=== PATIENT | female | born 1955 | race Caucasian/White ===

== ENCOUNTER 2017-05-16 12:32 | Emergency (ER) | payer MEDICARE ==
[~2017-05-16] VITALS: Ht 162.6 cm; Wt 78.0 kg
[~2017-05-16 12:32] MED LIST: C250T PO; CALCIUM 600; FERR-57 PO; FNT25TD TD; GBPN300C PO; LISI10TA PO; LOSA25TA15 PO; LOVA40TA2 PO; MECL-124 PO; METF-380 PO; MULT-608 PO; NITR-65 PO; OMEP-10 PO; ONDA-42 SL; PHEN-640 PO; PRAM0.12 PO; SCOP1PAT TD; TRAZ150T42 PO; VITAMIN D
[2017-05-16] MEDS ORDERED: DEXTROSE 50% 50 ML (IMS) SYR ONE (12:34)
[2017-05-16] MEDS ORDERED: DEXTROSE 50% 50 ML (IMS) SYR IV ONE (12:45)
[2017-05-16] MEDS ORDERED: NS IV 1000 ML 1,000 ML IV SCH (12:45)
--- NOTE | 2017-05-16 12:48 | ED General ---
General Chief Complaint: Altered Mental Status Stated Complaint: POSS STROKE Source of Information: Patient, Family Exam Limitations: No Limitations History of Present Illness Date Seen by Provider: May 16, 2017 Time Seen by Provider: 12:45 Initial Comments To ER coming by her with reports of weakness and confusion. Patient presented to the clinic in [place] for this where she had slurred speech noticed. The provider gave 81 mg of aspirin and told her she should come to the emergency room because this could be a stroke. Upon arrival to the emergency room she is very weak and was assisted out of her chair into bed. She was able to bear weight and move all extremities speech was slurred and very slow to respond. Blood sugar was checked and found to be 35. Her is present and states that she's been "mentally slow" for the past several days and has been falling more than usual for the past week or so. She was started on Zoloft about 3 weeks ago as best they can recall and had a dosage increase on Saturday of this week. She does take glimepiride and Levemir for diabetes. Has not checked her sugar since yesterday morning. Timing/Duration: 3-4 Days Severity: Moderate Allergies and Home Medications Allergies Coded Allergies: No Known Drug Allergies (Unverified , 11/05/09) Home Medications Ferrous Sulfate 325 Mg Tablet, 325 MG PO BID, (Reported) Gabapentin 300 Mg Cap, 300 MG PO TID, (Reported) Losartan Potassium 25 Mg Tablet, 1 EACH PO DAILY, (Reported) Lovastatin 40 Mg Tablet, 1 EACH PO DAILY WITH SUPPER, (Reported) Meclizine Hcl 25 Mg Tab, 1-2 TAB PO Q 4-6 HOURS PRN for DIZZINESS Prescribed by: ANURADHA BUTLER on 07/11/131443 Metformin Hcl 1,000 Mg Tablet, 1 EACH PO BID WITH MEALS, (Reported) Nitrofurantoin Monohyd/M-Cryst 100 Mg Capsule, 100 MG PO BID Prescribed by: ANURADHA BUTLER on 10/30/151931 Nitrofurantoin/Nitrofuran Mac 100 Mg Capsule, 1 EACH PO BID FOR INFECTION Prescribed by: ANURADHA BUTLER on 07/11/13 144 Ondansetron Hcl 4 Mg Tab, 4 MG SL Q4H FOR NAUSEA AND VOMITING Prescribed by: ANURADHA BUTLER on 07/11/13 144 Phenazopyridine HCl 200 Mg Tablet, 1 TAB PO TID Prescribed by: ANURADHA BUTLER on 10/30/15 1932 Scopolamine Hcl 1 Patch .72 H Patch.td72, 1 EA TD Q3D Prescribed by: ANURADHA BUTLER on 07/11/13 1444 Trazodone Hcl 150 Mg Tablet, 100 MG PO HS, (Reported) Patient Home Medication List Home Medication List Reviewed: Yes Constitutional: see HPI, weakness EENTM: see HPI Respiratory: no symptoms reported Cardiovascular: no symptoms reported Genitourinary: no symptoms reported Musculoskeletal: no symptoms reported Skin: no symptoms reported Psychiatric/Neurological: No Symptoms Reported Past Zwczeng-Uxgass-Xbgdso Hx Patient Social History Recent Hopitalizations: No Surgeries Surgeries: Abdominal, Orthopedic Cardiovascular Cardiac Disorders: High Cholesterol, Hypertension Neurological Neurological Disorders: Neuropathy Reproductive System Hx Reproductive Disorders: 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 Genitourinary Genitourinary Disorders: Bladder Infection, Renal Failure Musculoskeletal Musculoskeletal Disorders: Chronic Back Pain Endocrine Endocrine Disorders: Diabetes, Non-Insulin dep Psychosocial Behavioral Health Disorders: Sleep Difficulties Physical Exam Vital Signs Vital Signs - First Documented 05/16/17 12:32 Temp 97.5 Pulse 91 Resp 16 B/P (MAP) 189/96 (127) Pulse Ox 97 O2 Delivery Room Air Capillary Refill : General Appearance: No Apparent Distress, WD/WN, Chronically ill Eyes: Bilateral Eye Normal Inspection, Bilateral Eye PERRL, Bilateral Eye EOMI HEENT: PERRL/EOMI, TMs Normal Neck: Full Range of Motion, Normal Inspection Respiratory: No Accessory Muscle Use, No Respiratory Distress Cardiovascular: Regular Rate, Rhythm, Normal Peripheral Pulses Gastrointestinal: Non Tender, Soft Extremity: Normal Capillary Refill, Normal Inspection, No Calf Tenderness Neurologic/Psychiatric: Alert, Oriented x3, No Motor/Sensory Deficits Skin: Normal Color, Warm/Dry Progress/Results/Core Measures Suspected Sepsis SIRS Temperature: Pulse: Respiratory Rate: Laboratory Tests 05/16/17 12:37: White Blood Count 9.8 Blood Pressure / Mean: Laboratory Tests 05/16/17 12:37: Creatinine 0.81, Platelet Count 284, Total Bilirubin 0.3 Results/Orders Lab Results Laboratory Tests Test 05/16/17 12:36 05/16/17 12:37 05/16/17 13:41 05/16/17 14:08 Range/Units Glucometer 35 *L 95 70-110 MG/DL White Blood Count 9.8 4.3-11.0 10^3/uL Red Blood Count 4.54 4.35-5.85 10^6/uL Hemoglobin 12.8 11.5-16.0 G/DL Hematocrit 39 35-52 % Mean Corpuscular Volume 86 80-99 FL Mean Corpuscular Hemoglobin 28 25-34 PG Mean Corpuscular Hemoglobin Concent 33 32-36 G/DL Red Cell Distribution Width 14.8 H 10.0-14.5 % Platelet Count 284 130-400 10^3/uL Mean Platelet Volume 9.6 7.4-10.4 FL Neutrophils (%) (Auto) 73 42-75 % Lymphocytes (%) (Auto) 20 12-44 % Monocytes (%) (Auto) 6 0-12 % Eosinophils (%) (Auto) 2 0-10 % Basophils (%) (Auto) 0 0-10 % Neutrophils # (Auto) 7.2 1.8-7.8 X 10^3 Lymphocytes # (Auto) 1.9 1.0-4.0 X 10^3 Monocytes # (Auto) 0.6 0.0-1.0 X 10^3 Eosinophils # (Auto) 0.2 0.0-0.3 10^3/uL Basophils # (Auto) 0.0 0.0-0.1 10^3/uL Sodium Level 139 135-145 MMOL/L Potassium Level 4.0 3.6-5.0 MMOL/L Chloride Level 103 98-107 MMOL/L Carbon Dioxide Level 29 21-32 MMOL/L Anion Gap 7 5-14 MMOL/L Blood Urea Nitrogen 14 7-18 MG/DL Creatinine 0.81 0.60-1.30 MG/DL Estimat Glomerular Filtration Rate > 60 BUN/Creatinine Ratio 17 Glucose Level 29 *L 70-105 MG/DL Calcium Level 10.1 8.5-10.1 MG/DL Magnesium Level 1.6 L 1.8-2.4 MG/DL Total Bilirubin 0.3 0.1-1.0 MG/DL Aspartate Amino Transf (AST/SGOT) 55 H 5-34 U/L Alanine Aminotransferase (ALT/SGPT) 52 0-55 U/L Alkaline Phosphatase 57 40-136 U/L Total Protein 7.3 6.4-8.2 GM/DL Albumin 4.3 3.2-4.5 GM/DL Urine Color YELLOW Urine Clarity SLIGHTLY CLOUDY Urine pH 5 5-9 Urine Specific Roe 1.020 1.016-1.022 Urine Protein 1+ H NEGATIVE Urine Glucose (UA) 1+ H NEGATIVE Urine Ketones NEGATIVE NEGATIVE Urine Nitrite POSITIVE H NEGATIVE Urine Bilirubin NEGATIVE NEGATIVE Urine Urobilinogen NORMAL NORMAL MG/DL Urine Leukocyte Esterase 3+ H NEGATIVE Urine RBC (Auto) 3+ H NEGATIVE Urine RBC NONE /HPF Urine WBC >100 H /HPF Urine Squamous Epithelial Cells 5-10 /HPF Urine Crystals NONE /LPF Urine Bacteria FEW H /HPF Urine Casts NONE /LPF Urine Mucus NEGATIVE /LPF Urine Culture Indicated YES Urine Opiates Screen NEGATIVE NEGATIVE Urine Oxycodone Screen NEGATIVE NEGATIVE Urine Methadone Screen NEGATIVE NEGATIVE Urine Propoxyphene Screen NEGATIVE NEGATIVE Urine Barbiturates Screen NEGATIVE NEGATIVE Ur Tricyclic Antidepressants Screen POSITIVE H NEGATIVE Urine Phencyclidine Screen NEGATIVE NEGATIVE Urine Amphetamines Screen NEGATIVE NEGATIVE Urine Methamphetamines Screen NEGATIVE NEGATIVE Urine Benzodiazepines Screen NEGATIVE NEGATIVE Urine Cocaine Screen NEGATIVE NEGATIVE Urine Cannabinoids Screen NEGATIVE NEGATIVE My Orders Orders - RICK SAMPSON APRN Cbc With Automated Diff (05/16/17 12:43) Comprehensive Metabolic Panel (05/16/17 12:43) Ekg Tracing (05/16/17 12:43) Ua Culture If Indicated (05/16/17 12:43) Drug Screen Stat (Urine) (05/16/17 12:43) Chest 1 View, Ap/Pa Only (05/16/17 12:43) Magnesium (05/16/17 12:43) Ct Head Wo (05/16/17 12:43) Saline Lock/Iv-Start (05/16/17 12:43) Accucheck Stat ONCE (05/16/17 12:43) Ns Iv 1000 Ml (Sodium Chloride 0.9%) (05/16/17 12:45) D50w (Emergency) Syringe (Dextrose 50% 5 (05/16/17 12:45) General/Regular (05/16/17 Lunch) Accucheck Stat ONCE (05/16/17 13:39) Clonidine Tablet (Catapres Tablet) (05/16/17 14:15) Urine Culture (05/16/17 14:08) Sulfamethoxazole/Trimet Ds Tab (Bactrim (05/16/17 15:00) Medications Given in ED Current Medications Medications Dose Ordered Sig/Edwar Route Start Time Stop Time Status Last Admin Dose Admin Clonidine HCl 0.1 mg ONCE ONCE PO 05/16/17 14:15 05/16/17 14:16 DC 05/16/17 14:20 0.1 MG Dextrose 50 ml ONCE ONCE IV 05/16/17 12:45 05/16/17 12:46 DC 05/16/17 12:39 50 ML Vital Signs/I&O Vital Sign - Last 12Hours 05/16/17 12:32 Temp 97.5 Pulse 91 Resp 16 B/P (MAP) 189/96 (127) Pulse Ox 97 O2 Delivery Room Air Capillary Refill : Departure Communication (Admissions) Progress Notes 1257-patient is now sitting upright in bed, much more alert and oriented, talking appropriately without slurred speech Impression Impression: Primary Impression: Hypoglycemia associated with diabetes Additional Impression: Urinary tract infection Disposition: 01 HOME, SELF-CARE Condition: Stable Departure-Patient Inst. Decision time for Depature: 14:52 Referrals: [facility] (PCP/Family) Primary Care Physician Patient Instructions: HYPOGLYCEMIA, Urinary Tract Infection, Adult (DC) Add. Discharge Instructions: 1. Check your sugars frequently 2. You should add food or diet other than a just CabbageAll discharge instructions reviewed with patient and/or family. Voiced understanding. Scripts Sulfamethoxazole/Trimethoprim (Bactrim Ds Tablet) 1 Each Tablet 1 EACH PO BID, #14 TAB Prov: RICK SAMPSON APRN 05/16/17 RICK SAMPSON APRN May 16, 2017 12:48
[2017-05-16 12:49] LABS: BASOPHILS % (AUTO) 0 % (0-10); EOSINOPHILS # (AUTO) 0.2 10^3/uL (0.0-0.3); EOSINOPHILS % (AUTO) 2 % (0-10); HEMATOCRIT 39 % (35-52); HEMOGLOBIN 12.8 G/DL (11.5-16.0); LYMPHOCYTES # (AUTO) 1.9 X 10^3 (1.0-4.0); LYMPHOCYTES % (AUTO) 20 % (12-44); MEAN CORPUSCULAR HEMOGLOBIN 28 PG (25-34); MEAN CORPUSCULAR HGB CONC 33 G/DL (32-36); MEAN CORPUSCULAR VOLUME 86 FL (80-99); MEAN PLATELET VOLUME 9.6 FL (7.4-10.4); MONOCYTES # (AUTO) 0.6 X 10^3 (0.0-1.0); MONOCYTES % (AUTO) 6 % (0-12); NEUTROPHILS # (AUTO) 7.2 X 10^3 (1.8-7.8); NEUTROPHILS % (AUTO) 73 % (42-75); PLATELET COUNT 284 10^3/uL (130-400); RED BLOOD COUNT 4.54 10^6/uL (4.35-5.85); RED CELL DISTRIBUTION WIDTH 14.8 % (10.0-14.5); WHITE BLOOD COUNT 9.8 10^3/uL (4.3-11.0)
[2017-05-16 13:05] LABS: ALANINE AMINOTRANSFERASE 52 U/L (0-55); ALBUMIN 4.3 GM/DL (3.2-4.5); ALKALINE PHOSPHATASE 57 U/L (40-136); BILIRUBIN,TOTAL 0.3 MG/DL (0.1-1.0); BUN/CREATININE RATIO 17; CALCIUM 10.1 MG/DL (8.5-10.1); CARBON DIOXIDE 29 MMOL/L (21-32); CHLORIDE 103 MMOL/L (98-107); CREATININE SERUM 0.81 MG/DL (0.60-1.30); GFR ESTIMATED > 60; MAGNESIUM 1.6 MG/DL (1.8-2.4); SODIUM 139 MMOL/L (135-145); TOTAL PROTEIN 7.3 GM/DL (6.4-8.2)
[2017-05-16 13:11] LABS: GLUCOSE 29 MG/DL (70-105)
--- NOTE | 2017-05-16 13:32 | Diagnostic Imaging Report ---
CLINICAL INDICATION: Patient with possible stroke. EXAM: Portable chest x-ray upright view. COMPARISONS: Chest x-ray dated 07/11/2013. FINDINGS: Lungs/pleura: There is slight low lung volumes seen. Lungs are clear. There is no pneumothorax. There is no pleural effusion. Mediastinum: Unremarkable. Pulmonary vasculature: Unremarkable. Heart: Unremarkable. Bones/extrathoracic soft tissue: Again seen multiple surgical clips overlying the left upper abdomen. Suspected cholecystectomy clips overlying right upper quadrant. IMPRESSION: There is no radiographic evidence of acute cardiopulmonary process. Dictated by: Dictated on workstation # [id number]
--- NOTE | 2017-05-16 13:37 | Diagnostic Imaging Report ---
CLINICAL INDICATION: Patient with possible stroke. Patient states she fell two days ago and again yesterday. EXAM: Axial CT scan of the brain performed without IV contrast. COMPARISON: Head CT without IV contrast dated 07/11/2013. MRI of the brain performed without IV contrast dated 05/14/2014. FINDINGS: There is no evidence of acute cerebral infarct, intracranial hemorrhage, or gross mass effect. The brain parenchymal volume appears appropriate for patient's age. There is normal licea-white matter distinction. There is no significant midline shift or herniation. There is no evidence of hydrocephalus. The basal cisterns are unremarkable. The skull, extracranial soft tissue, and orbits are unremarkable. The paranasal sinuses are unremarkable. Temporal bones show no significant abnormality. IMPRESSION: Unremarkable CT scan of the brain for age. Dictated by: Dictated on workstation # [id number]
[2017-05-16] MEDS ORDERED: cloNIDine 0.1 MG (CATAPRES) TAB PO ONE (14:15)
[2017-05-16 14:17] LABS: BILIRUBIN,URINE NEGATIVE (NEGATIVE); CLARITY,URINE SLIGHTLY CLOUDY; COLOR,URINE YELLOW; GLUCOSE, URINE (UA) 1+ (NEGATIVE); KETONES,URINE NEGATIVE (NEGATIVE); LEUKOCYTE ESTERASE ,URINE 3+ (NEGATIVE); NITRITE,URINE POSITIVE (NEGATIVE); PH,URINE 5 (5-9); PROTEIN,URINE 1+ (NEGATIVE); UROBILINOGEN,URINE NORMAL (NORMAL)
[2017-05-16 14:27] LABS: BACTERIA,URINE FEW /HPF; WBC,URINE >100 /HPF
[2017-05-16 14:29] LABS: AMPHETAMINE SCREEN, URINE NEGATIVE (NEGATIVE); BARBITURATE SCREEN URINE NEGATIVE (NEGATIVE); BENZODIAZEPINES SCREEN URINE NEGATIVE (NEGATIVE); CANNABINOID SCREEN, URINE NEGATIVE (NEGATIVE); COCAINE SCREEN URINE NEGATIVE (NEGATIVE); METHADONE STAT NEGATIVE (NEGATIVE); METHAMPHETAMINE SCREEN URINE S NEGATIVE (NEGATIVE); OPIATE SCREEN URINE NEGATIVE (NEGATIVE); OXYCODONE STAT NEGATIVE (NEGATIVE); PROPOXYPHENE STAT NEGATIVE (NEGATIVE); TRICYCLIC ANTIDEPRESSANTS SCRE POSITIVE (NEGATIVE)
[2017-05-16] MEDS ORDERED: SULF1TAB35 PO (14:54)
[2017-05-16] MEDS ORDERED: TRIM/SULFAMETH 160/800 (SEPTRA DS) TAB PO ONE (15:00)
[2017-05-16 15:05] VITALS: BP 169/93
== END 2017-05-16 15:05 | disposition home or self-care (01) ==
LOC: EDUNIT# 12:32 → ER 12:33
DX: E11.649 Type 2 diabetes mellitus with hypoglycemia without coma (principal); E11.40 Type 2 diabetes mellitus with diabetic neuropathy, unspecified; N39.0 Urinary tract infection, site not specified; G47.9 Sleep disorder, unspecified; E78.00 Pure hypercholesterolemia, unspecified; I10 Essential (primary) hypertension; Z79.84 Long term (current) use of oral hypoglycemic drugs
CPT/HCPCS: 36415; 70450; 71045; 80053; 80306; 81000; 82962; 83735; 85025; 87088; 87186; 93005; 96361; 96374

== ENCOUNTER 2017-06-03 09:05 | Emergency (ER) | payer MEDICARE ==
[~2017-06-03] VITALS: Ht 165.1 cm; Wt 77.1 kg
[~2017-06-03 09:05] MED LIST changes: +SULF1TAB35 PO
--- OUTSIDE RECORDS SUMMARY | 2017-06-03 09:12 | XMS REPORT ---
Author Author GEORGIA GALVAN [facility] eClinicalWorks Address Unknown Phone Unavailable Care Team Providers Care Shift Mechanic Name Role Phone GEORGIA GALVAN Unavailable Allergies No Known Allergies Problems Problem Type Condition Code Onset Dates Condition Status Problem Diabetes mellitus without mention of complication, type II or unspecified type, uncontrolled 250.02 Active Problem Elevated blood pressure reading without diagnosis of hypertension 796.2 Active Problem Polyneuropathy in diabetes 357.2 Active Problem Other chronic pain 338.29 Active Medications No Known Medications Results No Known Results Summary Purpose eClinicalWorks Submission
--- OUTSIDE RECORDS SUMMARY | 2017-06-03 09:12 | XMS REPORT ---
Author Author GEORGIA GALVAN [facility] eClinical[employer] Address Unknown Phone Unavailable Care Team Providers Care Informatics Manager Name Role Phone GEORGIA GALVAN Unavailable Allergies No Known Allergies Problems Problem Type Condition Code Onset Dates Condition Status Problem Polyneuropathy in diabetes 357.2 Active Problem Diabetes mellitus without mention of complication, type II or unspecified type, uncontrolled 250.02 Active Problem Diabetes type 1, uncontrolled E10.65 Active Problem Elevated blood pressure reading without diagnosis of hypertension 796.2 Active Problem Other chronic pain 338.29 Active Medications Medication Code System Code Instructions Start Date End Date Status Dosage Hydrocodone-Acetaminophen [facility] [address]-77 7.5-325 MG Orally every 4-6 hrs PRN 1 tablet Results No Known Results Summary Purpose eClinicalWorks Submission
--- OUTSIDE RECORDS SUMMARY | 2017-06-03 09:12 | XMS REPORT ---
Author Author CATRACHITA MOLINA [facility] Address [address] [place] [address] Care Team Providers Care Towel Inspector Name Role Phone CATRACHITA MOLINA Unavailable PROBLEMS Type Condition ICD9-CM Code [id number] Code Onset Dates Condition Status SNOMED Code Problem Elevated blood pressure reading without diagnosis of hypertension 796.2 Active 920331210 Problem Polyneuropathy in diabetes 357.2 Active 91271081 Problem Diabetes mellitus without mention of complication, type II or unspecified type, uncontrolled 250.02 Active 728456557 Problem Other chronic pain 338.29 Active 50885876 Problem Encounter for immunization Z23 Active 884861501 Problem Other chronic pain G89.29 Active 64986138 Problem RLS (restless legs syndrome) G25.81 Active 86553725 Problem Diabetes type 2, controlled E11.9 Active 95798182 Problem Essential hypertension I10 Active 79737458 Problem Diabetic polyneuropathy associated with type 2 diabetes mellitus E11.42 Active 48611411 ALLERGIES Unknown Allergies SOCIAL HISTORY No smoking Hx information available PLAN OF CARE VITAL SIGNS MEDICATIONS Medication Instructions Dosage Frequency Start Date End Date Duration Status Lovastatin 20 MG Orally Once a day 1 tablet 24h Mar, Active RESULTS No Results PROCEDURES No Known procedures IMMUNIZATIONS No Known Immunizations
--- OUTSIDE RECORDS SUMMARY | 2017-06-03 09:12 | XMS REPORT ---
Author Author GEORGIA GALVAN [facility] eClinicalWorks Address Unknown Phone Unavailable Care Team Providers Care Poultry Dresser Name Role Phone GEORGIA GALVAN Unavailable Allergies [...] Instructions Start Date End Date Status Dosage Victoza [facility] [address]-29 18 MG/3ML Subcutaneous Once a day 1.8 mg Pen [place] [facility] [address]-90 31G X 6 MM Once a day Dec 23, 2014 as directed Results No Known Results Summary Purpose eClinicalWorks Submission
--- OUTSIDE RECORDS SUMMARY | 2017-06-03 09:12 | XMS REPORT ---
Author Author CATRACHITA MOLINA Organization eClinicalWorks Address Unknown Phone Unavailable Care Team Providers Care Food Server Name Role Phone CATRACHITA MOLINA CP Unavailable Allergies No Known Allergies Problems Problem Type Condition Code Onset Dates Condition Status Problem Polyneuropathy in diabetes 357.2 Active Problem Diabetes mellitus without mention of complication, type II or unspecified type, uncontrolled 250.02 Active Problem Diabetes type 2, controlled E11.9 Active Problem Elevated blood pressure reading without diagnosis of hypertension 796.2 Active Problem Other chronic pain 338.29 Active Medications Medication Code System Code Instructions Start Date End Date Status Dosage Hydrocodone-Acetaminophen [facility] [address]-32 7.5-325 MG Orally every 4-6 hrs PRN 1 tablet Results No Known Results Summary Purpose eClinicalWorks Submission
--- OUTSIDE RECORDS SUMMARY | 2017-06-03 09:12 | XMS REPORT ---
Author Author GEORGIA GALVAN [facility] eClinicalWorks Address Unknown Phone Unavailable Care Team Providers Care Boiler Riveter Name Role Phone GEORGIA GALVAN Unavailable Allergies [...] Start Date End Date Status Dosage Hydrocodone-Acetaminophen [facility] [address]-13 7.5-325 MG Orally every 4-6 hrs PRN 1 tablet Results No Known Results Summary Purpose eClinicalWorks Submission
--- OUTSIDE RECORDS SUMMARY | 2017-06-03 09:12 | XMS REPORT ---
Author Author CATRACHITA MOLINA [facility] Address [address] [place] [address] Care Team Providers Care Card Player Name Role Phone CATRACHITA MOLINA Unavailable PROBLEMS Type Condition ICD9-CM Code [id number] Code Onset Dates Condition Status SNOMED Code Problem Diabetes mellitus without mention of complication, type II or unspecified type, uncontrolled 250.02 Active 078088237 Problem Diabetic polyneuropathy associated with type 2 diabetes mellitus E11.42 Active 91081452 Problem Diabetes type 2, controlled E11.9 Active 23042049 Problem Elevated blood pressure reading without diagnosis of hypertension 796.2 Active 805933549 Problem Polyneuropathy in diabetes 357.2 Active 14935613 Problem Other chronic pain 338.29 Active 16989793 Problem Type 2 diabetes mellitus with hyperglycemia E11.65 Active 193534688196172 Problem Spinal stenosis, unspecified spinal region M48.00 Active 32854875 Problem Essential hypertension I10 Active 77951270 Problem RLS (restless legs syndrome) G25.81 Active 57713761 Problem Encounter for immunization Z23 Active 875029590 Problem Other chronic pain G89.29 Active 56658556 ALLERGIES No Information SOCIAL HISTORY Never Assessed PLAN OF CARE VITAL SIGNS MEDICATIONS Medication Instructions Dosage Frequency Start Date End Date Duration Status Hydrocodone-Acetaminophen 7.5-325 MG Orally every 4-6 hrs PRN 1 tablet Active RESULTS No Results PROCEDURES No Known procedures IMMUNIZATIONS No Known Immunizations MEDICAL (GENERAL) HISTORY Type Description Date Medical History hypertension Medical History hyperlipidemia Medical History gastrointestinal disorder-chronic gastritis on EGD 2009, Colonoscopy mild diverticulitis 2009 Medical History spinal stenosis-3 bulging disk in lower back Medical History hematologic disorder-severe iron deficiency anemia due to hx of gastric bypass Medical History type II diabetes Surgical History cholecystectomy Surgical History tonsillectomy Surgical History appendectomy Surgical History surgery for AAA 23 lb cyst removed from ovary Surgical History gastric surgery for morbid obesity by vertical-banded gastroplasty Surgical History complete hysterectomy and resecection of cystadenoma from the right ovary Surgical History back surgery 12/2012 L4-L5 decompression surgery, metal cage placed post bone graft L4-L5 fusion with new bone graft placement 01/2014 Hospitalization History surgeries, childbirth
--- OUTSIDE RECORDS SUMMARY | 2017-06-03 09:12 | XMS REPORT ---
Author Author CATRACHITA MOLINA [facility] Address [address] [place] [address] Care Team Providers Care Electronics Instructor Name Role Phone CATRACHITA MOLINA Unavailable PROBLEMS Type Condition ICD9-CM Code [id number] Code Onset Dates Condition Status SNOMED Code Problem Elevated blood pressure reading without diagnosis of hypertension 796.2 Active 354227163 Problem Polyneuropathy in diabetes 357.2 Active 85186987 Problem Diabetes mellitus without mention of complication, type II or unspecified type, uncontrolled 250.02 Active 628207649 Problem Other chronic pain 338.29 Active 50550887 Problem Encounter for immunization Z23 Active 708572719 Problem Other chronic pain G89.29 Active 18819848 Problem RLS (restless legs syndrome) G25.81 Active 31210124 Problem Diabetes type 2, controlled E11.9 Active 60743825 Problem Essential hypertension I10 Active 54821424 Problem Diabetic polyneuropathy associated with type 2 diabetes mellitus E11.42 Active 83313963 ALLERGIES Unknown Allergies SOCIAL HISTORY No smoking Hx information available PLAN OF CARE VITAL SIGNS MEDICATIONS Medication Instructions Dosage Frequency Start Date End Date Duration Status Levemir 100 UNIT/ML Subcutaneous 2 times a day 60 units 12h 20 Jun, 2015 Active Victoza 18 MG/3ML Subcutaneous Once a day 1.8 mg 24h Active Pen [place] 31G X 6 MM as directed 24h Dec, Active RESULTS No Results PROCEDURES No Known procedures IMMUNIZATIONS No Known Immunizations
--- OUTSIDE RECORDS SUMMARY | 2017-06-03 09:12 | XMS REPORT ---
Author Author CATRACHITA MOLINA [facility] Address [address] [place] [address] Care Team Providers Care Charge Account Clerk Name Role Phone CATRACHITA MOLINA Unavailable PROBLEMS Type Condition ICD9-CM Code [id number] Code Onset Dates Condition Status SNOMED Code Problem Diabetes mellitus without mention of complication, type II or unspecified type, uncontrolled 250.02 Active 549853660 Problem Diabetic polyneuropathy associated with type 2 diabetes mellitus E11.42 Active 51660416 Problem Diabetes type 2, controlled E11.9 Active 69938740 Problem Elevated blood pressure reading without diagnosis of hypertension 796.2 Active 066275334 Problem Polyneuropathy in diabetes 357.2 Active 54870741 Problem Other chronic pain 338.29 Active 14643310 Problem Type 2 diabetes mellitus with hyperglycemia E11.65 Active 527433455739089 Problem Spinal stenosis, unspecified spinal region M48.00 Active 71635188 Problem Essential hypertension I10 Active 64787977 Problem RLS (restless legs syndrome) G25.81 Active 23786829 Problem Encounter for immunization Z23 Active 916905693 Problem Other chronic pain G89.29 Active 35703487 ALLERGIES Unknown Allergies SOCIAL HISTORY No smoking Hx information available PLAN OF CARE VITAL SIGNS MEDICATIONS Unknown Medications RESULTS No Results PROCEDURES No Known procedures IMMUNIZATIONS No Known Immunizations
--- OUTSIDE RECORDS SUMMARY | 2017-06-03 09:12 | XMS REPORT ---
Author Author GEORGIA GALVAN [facility] eClinicalWorks Address Unknown Phone Unavailable Care Team Providers Care Baggage Security Checker Name Role Phone GEORGIA GALVAN Unavailable Allergies [...] Instructions Start Date End Date Status Dosage Levemir [facility] [address]-29 100 UNIT/ML Subcutaneous 2 times a day June 22, 2015 60 units Results No Known Results Summary Purpose eClinicalWorks Submission
--- OUTSIDE RECORDS SUMMARY | 2017-06-03 09:12 | XMS REPORT ---
Author Author GEORGIA GALVAN [facility] eClinicalWorks Address Unknown Phone Unavailable Care Team Providers Care Public Health Inspector Name Role Phone GEORGIA GALVAN Unavailable Allergies [...] Instructions Start Date End Date Status Dosage Pen [place] [facility] [address]-52 31G X 6 MM 2 times a day Dec 23, 2014 as directed Levemir Flexpen [facility] [address]-68 100 unit/mL (3 mL) Subcutaneous 2 times a day Mar 15, 2014 20 Units in AM and 24 units at HS Results No Known Results Summary Purpose eClinicalWorks Submission
--- OUTSIDE RECORDS SUMMARY | 2017-06-03 09:12 | XMS REPORT ---
Author Author CATRACHITA MOLINA [facility] Address [address] [place] [address] Care Team Providers Care Educational Sign Language Interpreter Name Role Phone CATRACHITA MOLINA Unavailable PROBLEMS Type Condition ICD9-CM Code [id number] Code Onset Dates Condition Status SNOMED Code Problem Elevated blood pressure reading without diagnosis of hypertension 796.2 Active 333860379 Problem Polyneuropathy in diabetes 357.2 Active 69117498 Problem Diabetes mellitus without mention of complication, type II or unspecified type, uncontrolled 250.02 Active 769819078 Problem Other chronic pain 338.29 Active 95628576 Problem Encounter for immunization Z23 Active 724840058 Problem Other chronic pain G89.29 Active 75967214 Problem RLS (restless legs syndrome) G25.81 Active 67246549 Problem Diabetes type 2, controlled E11.9 Active 76867682 Problem Essential hypertension I10 Active 89189161 Problem Diabetic polyneuropathy associated with type 2 diabetes mellitus E11.42 Active 58088097 ALLERGIES Unknown Allergies SOCIAL HISTORY No smoking Hx information available PLAN OF CARE VITAL SIGNS MEDICATIONS Medication Instructions Dosage Frequency Start Date End Date Duration Status Hydrocodone-Acetaminophen 7.5-325 MG Orally every 4-6 hrs PRN 1 tablet Active RESULTS No Results PROCEDURES No Known procedures IMMUNIZATIONS No Known Immunizations
--- OUTSIDE RECORDS SUMMARY | 2017-06-03 09:12 | XMS REPORT ---
Author Author CATRACHITA MOLINA [facility] Address [address] [place] [address] Care Team Providers Care Hand Sewer Shoes Name Role Phone CATRACHITA MOLINA Unavailable PROBLEMS Type Condition ICD9-CM Code [id number] Code Onset Dates Condition Status SNOMED Code Problem Polyneuropathy in diabetes 357.2 Active 12604283 Problem RLS (restless legs syndrome) G25.81 Active 67303391 Problem Diabetes type 2, controlled E11.9 Active 95027273 Problem Other chronic pain 338.29 Active 30841855 Problem Elevated blood pressure reading without diagnosis of hypertension 796.2 Active 709857931 Problem Diabetes mellitus without mention of complication, type II or unspecified type, uncontrolled 250.02 Active 687550951 Problem Type 2 diabetes mellitus with hyperglycemia E11.65 Active 468132196038147 Problem Spinal stenosis, unspecified spinal region M48.00 Active 42820569 Problem Essential hypertension I10 Active 44951166 Problem 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 Unknown Non Drug Allergy Dec, Unknown SOCIAL HISTORY No smoking Hx information available PLAN OF CARE VITAL SIGNS Height 64 in 2015-12-19 Weight 189.8 lbs 2015-12-19 Temperature 96.9 degrees Fahrenheit 2015-12-19 Heart Rate 80 bpm 2015-12-19 Respiratory Rate 18 2015-12-19 BMI 32.58 kg/m2 2015-12-19 Blood pressure systolic 138 mmHg 2015-12-19 Blood pressure diastolic 72 mmHg 2015-12-19 MEDICATIONS Medication Instructions Dosage Frequency Start Date End Date Duration Status Metformin HCl 1000 MG Orally Twice a day 1 tablet with meals 12h 31 Oct, 2014 Active Hydrocodone-Acetaminophen 7.5-325 MG Orally every 4-6 hrs PRN 1 tablet Active Lovastatin 20 MG Orally Once a day 1 tablet 24h 12 Mar, 2014 Active Hydrochlorothiazide 25 MG Orally Once a day 1 tablet 24h Mar, Active Glimepiride 2 MG Orally twice a day 1 tablet 12h Aug, Active Poly-Iron 150 Forte 150-25-1 MG-MCG-MG Orally 2 times a day 1 capsule 12h Active Mirapex 0.5 MG take 1 tablet by Oral route 1 time per day 2-3 hours before bedtime Active Victoza 18 MG/3ML Subcutaneous Once a day 1.8 mg 24h Active NovoFine 32G X 6 MM subcutaneous 2 times a day DX 250.00 1 needle Nov Active Aspirin Adult Low Strength 81 MG Orally Once a day 1 tablet 24h Active Amitriptyline HCl 100 MG Orally Once a day 1 tablet 24h Oct, Active Cozaar 25 MG Orally Once a day 1 tablet 24h Mar, Active Pen [place] 31G X 6 MM as directed 12h Dec, Active Neurontin 300 MG Orally Three times a day 1 capsule 8h Active Levemir 100 UNIT/ML Subcutaneous 2 times a day 60 units 12h Jun, Active Pramipexole Dihydrochloride 0.5 MG TAKE (2) TABLETS BY MOUTH ONCE DAILY 2- 3 HOURS BEFORE BEDTIME. Active Calcium 600 MG Orally Once a day 1 tablet with meals 24h Active RESULTS No Results PROCEDURES Procedure Date Ordered Related Diagnosis Body Site [facility] VISIT ESTABLISHED PATIENT Dec 19, 2015 Office Visit, Est Pt., Level 3 Dec 19, 2015 SINGLE IMMUNIZATION ADMIN Dec 19, 2015 FLUARIX QUAD P-FREE 3 AND UP .50 2015Dec 19, 2015 IMMUNIZATIONS Vaccine Route Administration Date Status FLUARIX QUAD P-FREE 3 AND UP .50 2015 Unknown Dec 19, 2015 Administered
--- OUTSIDE RECORDS SUMMARY | 2017-06-03 09:13 | XMS REPORT ---
Author Author GEORGIA GALVAN [facility] eClinicalWorks Address Unknown Phone Unavailable Care Team Providers Care Rn Telehealth Name Role Phone GEORGIA GALVAN Unavailable Allergies [...] Date End Date Status Dosage Hydrocodone-Acetaminophen [facility] [address]-11 7.5-325 MG Orally every 4-6 hrs PRN 1 tablet Results No Known Results Summary Purpose eClinicalWorks Submission
--- OUTSIDE RECORDS SUMMARY | 2017-06-03 09:13 | XMS REPORT ---
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
--- OUTSIDE RECORDS SUMMARY | 2017-06-03 09:13 | XMS REPORT ---
Author Author CATRACHITA MOLINA [facility] Address [address] [place] [address] Care Team Providers Care System Support Developer Name Role Phone CATRACHITA MOLINA Unavailable PROBLEMS Type Condition ICD9-CM Code [id number] Code Onset Dates Condition Status SNOMED Code Problem Other chronic pain 338.29 Active 55606729 Problem Diabetes mellitus without mention of complication, type II or unspecified type, uncontrolled 250.02 Active 133538135 Problem Elevated blood pressure reading without diagnosis of hypertension 796.2 Active 578154372 Problem Other chronic pain G89.29 Active 82768285 Problem Essential hypertension I10 Active 51666876 Problem Diabetes type 2, controlled E11.9 Active 54967867 Problem Polyneuropathy in diabetes 357.2 Active 58390711 Problem Diabetic polyneuropathy associated with type 2 diabetes mellitus E11.42 Active 09607671 Problem RLS (restless legs syndrome) G25.81 Active 91487593 ALLERGIES Unknown Allergies SOCIAL HISTORY No smoking Hx information available PLAN OF CARE VITAL SIGNS MEDICATIONS Unknown Medications RESULTS No Results PROCEDURES No Known procedures IMMUNIZATIONS No Known Immunizations
--- OUTSIDE RECORDS SUMMARY | 2017-06-03 09:13 | XMS REPORT ---
Author Author GEORGIA GALVAN [facility] Address [address] [place] [address] Care Team Providers Care Product Development Assistant Name Role Phone GEORGIA GALVAN Unavailable PROBLEMS Type Condition ICD9-CM Code [id number] Code Onset Dates Condition Status SNOMED Code Problem Elevated blood pressure reading without diagnosis of hypertension 796.2 Active 981110141 Problem Polyneuropathy in diabetes 357.2 Active 62527456 Problem Diabetes mellitus without mention of complication, type II or unspecified type, uncontrolled 250.02 Active 926530286 Problem Other chronic pain 338.29 Active 09650023 Problem Encounter for immunization Z23 Active 308443372 Problem Other chronic pain G89.29 Active 79924431 Problem RLS (restless legs syndrome) G25.81 Active 33376659 Problem Diabetes type 2, controlled E11.9 Active 87396048 Problem Essential hypertension I10 Active 87098061 Problem Diabetic polyneuropathy associated with type 2 diabetes mellitus E11.42 Active 41604859 ALLERGIES Unknown Allergies SOCIAL HISTORY No smoking Hx information available PLAN OF CARE VITAL SIGNS MEDICATIONS Unknown Medications RESULTS No Results PROCEDURES No Known procedures IMMUNIZATIONS No Known Immunizations
--- OUTSIDE RECORDS SUMMARY | 2017-06-03 09:13 | XMS REPORT ---
Author Author CATRACHITA MOLINA [facility] Address [address] [place] [address] Care Team Providers Care Aircraft Cylinder Mechanic Name Role Phone CATRACHITA MOLINA Unavailable PROBLEMS Type Condition ICD9-CM Code [id number] Code Onset Dates Condition Status SNOMED Code Problem Elevated blood pressure reading without diagnosis of hypertension 796.2 Active 317038992 Problem Polyneuropathy in diabetes 357.2 Active 37418344 Problem Diabetes mellitus without mention of complication, type II or unspecified type, uncontrolled 250.02 Active 593606792 Problem Other chronic pain 338.29 Active 54708226 Problem Encounter for immunization Z23 Active 531200775 Problem Other chronic pain G89.29 Active 26637088 Problem RLS (restless legs syndrome) G25.81 Active 31068966 Problem Diabetes type 2, controlled E11.9 Active 53089704 Problem Essential hypertension I10 Active 80395394 Problem Diabetic polyneuropathy associated with type 2 diabetes mellitus E11.42 Active 02349349 ALLERGIES Unknown Allergies SOCIAL HISTORY No smoking Hx information available PLAN OF CARE VITAL SIGNS MEDICATIONS Unknown Medications RESULTS No Results PROCEDURES No Known procedures IMMUNIZATIONS No Known Immunizations
--- OUTSIDE RECORDS SUMMARY | 2017-06-03 09:13 | XMS REPORT ---
Author Author CATRACHITA MOLINA [facility] Address [address] [place] [address] Care Team Providers Care Accelerator Technician Name Role Phone CATRACHITA MOLINA Unavailable PROBLEMS Type Condition ICD9-CM Code [id number] Code Onset Dates Condition Status SNOMED Code Problem Diabetes mellitus without mention of complication, type II or unspecified type, uncontrolled 250.02 Active 274660141 Problem Diabetic polyneuropathy associated with type 2 diabetes mellitus E11.42 Active 30260103 Problem Diabetes type 2, controlled E11.9 Active 35725816 Problem Elevated blood pressure reading without diagnosis of hypertension 796.2 Active 949715910 Problem Polyneuropathy in diabetes 357.2 Active 00039667 Problem Other chronic pain 338.29 Active 94935187 Problem Type 2 diabetes mellitus with hyperglycemia E11.65 Active 653708099042014 Problem Spinal stenosis, unspecified spinal region M48.00 Active 98846425 Problem Essential hypertension I10 Active 10554656 Problem RLS (restless legs syndrome) G25.81 Active 24210709 Problem Encounter for immunization Z23 Active 281950274 Problem Other chronic pain G89.29 Active 27893432 ALLERGIES No Information SOCIAL HISTORY Never Assessed [...]
--- OUTSIDE RECORDS SUMMARY | 2017-06-03 09:13 | XMS REPORT ---
Author Author CATRACHITA MOLINA Organization eClinicalWorks Address Unknown Phone Unavailable Care Team Providers Care Electric Blanket Packer Name Role Phone CATRACHITA MOLINA CP Unavailable [...]
--- OUTSIDE RECORDS SUMMARY | 2017-06-03 09:13 | XMS REPORT ---
Author Author GEORGIA GALVAN [employer] Address Unknown Phone Unavailable Care Team Providers Care Alarm Operator Name Role Phone GEORGIA GALVAN Unavailable Allergies, Adverse Reactions, Alerts Substance Reaction Event Type N.K.D.A. Info Not Available Non Drug Allergy Problems Problem Type Condition Code Onset Dates Condition Status Problem Diabetes mellitus without mention of complication, type II or unspecified type, uncontrolled 250.02 Active Problem Elevated blood pressure reading without diagnosis of hypertension 796.2 Active Problem Polyneuropathy in diabetes 357.2 Active Assessment Acute cystitis with hematuria N30.01 Active Problem Other chronic pain 338.29 Active Assessment Dysuria R30.0 Active Medications Medication Code System Code Instructions Start Date End Date Status Dosage Cozaar [facility] [address]-28 25 MG Orally Once a day Mar 15, 2014 1 tablet Pen [place] [facility] [address]-82 31G X 6 MM Once a day Dec 23, 2014 as directed Calcium [facility] [address] 600 MG Orally Once a day 1 tablet with meals Levemir Flexpen [facility] [address]-64 100 unit/mL (3 mL) Mar 15, 2014 15 Units by Subcutaneous route 1 time per day at bedtime Macrobid [facility] [address]-34 100 MG Orally every 12 hrs Jan 20, 2015Jan 1 capsule with food NovoFine [facility] [address]-77 32G X 6 MM subcutaneous 2 times a day DX 250.00 Nov 10, 2014 1 needle Poly-Iron 150 Forte [facility] [address]-11 150-25-1 MG-MCG-MG Orally 2 times a day Dec 02, 2014 1 capsule Hydrocodone-Acetaminophen [facility] [address]-60 7.5-325 MG Orally every 4-6 hrs PRN 1 tablet Neurontin [facility] [address]-21 300 mg Mar 15, 2014 1 capsule by Oral route 3 times per day Mirapex [facility] [address]-80 0.5 mg 2 tab(s) orally once a day (at bedtime) Mar 15, 2014 take 1 tablet by Oral route 1 time per day 2-3 hours before bedtime Victoza [facility] [address]-70 18 MG/3ML Subcutaneous Once a day 1.8 mg Hydrochlorothiazide [facility] [address]-78 25 MG Orally Once a day Mar 15, 2014 1 tablet Lovastatin [facility] [address]-33 20 MG Orally Once a day Mar 15, 2014 1 tablet Vitamin D (Ergocalciferol) [facility] [address]-95 48635 UNIT Orally twice a week 1 capsule Amitriptyline HCl [facility] [address]-28 100 MG Orally Once a day Nov 01, 2014 1 tablet Metformin HCl [facility] [address]-01 1000 MG Orally Twice a day Nov 01, 2014 1 tablet with meals Aspirin Adult Low Strength [facility] [address]-28 81 MG Orally Once a day 1 tablet Procedures Procedure Coding System Code Date Office Visit, Est Pt., Level 3 CPT-4 85685 Jan 20, 2015 URINALYSIS, AUTO, W/O SCOPE CPT-4 41717 Jan 20, 2015 [facility] VISIT ESTABLISHED PATIENT CPT-4 G0467 Jan 20, 2015 THER/PROPH/DIAG INJ, SC/IM CPT-4 12339 Jan 20, 2015 ROCEPHIN 1 GM (IM) CPT-4 J0696 Jan 20, 2015 Vital Signs Date/Time: Jan 20, 2015 Temperature 98.6 F Weight 169.6 lbs Height 64 in BMI 29.11 Index Blood Pressure Diastolic 78 mmHg Blood Pressure Systolic 136 mmHg Cardiac Monitoring Heart Rate 92 bpm Results No Known Results Summary Purpose eClinicalWorks Submission
--- OUTSIDE RECORDS SUMMARY | 2017-06-03 09:13 | XMS REPORT ---
Author Author CATRACHITA MOLINA Organization eClinicalWorks Address Unknown Phone Unavailable Care Team Providers Care Senior Automation Engineer Name Role Phone CATRACHITA MOLINA CP Unavailable [...] Instructions Start Date End Date Status Dosage Amitriptyline HCl [facility] [address]-57 100 MG Orally Once a day Nov 01, 2014 1 tablet Metformin HCl [facility] [address]-59 1000 MG Orally Twice a day Nov 01, 2014 1 tablet with meals Results No Known Results Summary Purpose eClinicalWorks Submission
--- OUTSIDE RECORDS SUMMARY | 2017-06-03 09:13 | XMS REPORT ---
Author Author GEORGIA GALVAN [facility] eClinicalWorks Address Unknown Phone Unavailable Care Team Providers Care Carpentry Professional Name Role Phone GEORGIA GALVAN Unavailable Allergies [...]
--- OUTSIDE RECORDS SUMMARY | 2017-06-03 09:13 | XMS REPORT ---
Author Author CATRACHITA MOLINA [facility] Address [address] [place] [address] Care Team Providers Care Drone Operator Name Role Phone CATRACHITA MOLINA Unavailable PROBLEMS Type Condition ICD9-CM Code [id number] Code Onset Dates Condition Status SNOMED Code Problem Elevated blood pressure reading without diagnosis of hypertension 796.2 Active 596158299 Problem Polyneuropathy in diabetes 357.2 Active 10246668 Problem Diabetes mellitus without mention of complication, type II or unspecified type, uncontrolled 250.02 Active 383614245 Assessment Diabetes type 2, controlled E11.9 Nov, Active 071541761 Problem Other chronic pain 338.29 Active 08409167 Problem Encounter for immunization Z23 Active 915667472 Problem Other chronic pain G89.29 Active 98277811 Problem RLS (restless legs syndrome) G25.81 Active 34568484 Problem Diabetes type 2, controlled E11.9 Active 68487507 Problem Essential hypertension I10 Active 04851902 Problem Diabetic polyneuropathy associated with type 2 diabetes mellitus E11.42 Active 65451897 ALLERGIES Unknown Allergies SOCIAL HISTORY No smoking Hx information available PLAN OF CARE VITAL SIGNS MEDICATIONS Unknown Medications RESULTS Name Result Date Reference Range TSH 2015-11-17 TSH 3.050 0.450-4.500 CBC 2015-11-17 WBC 9.5 3.4-10.8 RBC 4.76 3.77-5.28 Hemoglobin 13.5 11.1-15.9 Hematocrit 41.2 34.0-46.6 MCV 87 79-97 MCH 28.4 26.6-33.0 MCHC 32.8 31.5-35.7 RDW 14.2 12.3-15.4 Platelets 311 150-379 Neutrophils 76 Lymphs 17 Monocytes 5 Eos 2 Basos 0 Immature Cells Neutrophils (Absolute) 7.2 1.4-7.0 Lymphs (Absolute) 1.6 0.7-3.1 Monocytes(Absolute) 0.4 0.1-0.9 Eos (Absolute) 0.2 0.0-0.4 Baso (Absolute) 0.0 0.0-0.2 Immature Granulocytes 0 Immature Grans (Abs) 0.0 0.0-0.1 NR Hematology Comments: LIPID PANEL 2015-11-17 Cholesterol, Total 177 100-199 Triglycerides 127 0-149 HDL Cholesterol 64 >39 VLDL Cholesterol Yves 25 5-40 LDL Cholesterol Calc 88 0-99 Comment: CMP 2015-11-17 Glucose, Serum 173 65-99 BUN 25 8-27 Creatinine, Serum 0.90 0.57-1.00 eGFR If NonAfricn Am 69 >59 eGFR If Africn Am 80 >59 BUN/Creatinine Ratio 28 11-26 Sodium, Serum 141 134-144 Potassium, Serum 4.5 3.5-5.2 Chloride, Serum 96 97-108 Carbon Dioxide, Total 26 18-29 Calcium, Serum 10.1 8.7-10.3 Protein, Total, Serum 7.4 6.0-8.5 Albumin, Serum 4.5 3.6-4.8 Globulin, Total 2.9 1.5-4.5 A/G Ratio 1.6 1.1-2.5 Bilirubin, Total 0.3 0.0-1.2 Alkaline Phosphatase, S 79 39-117 AST (SGOT) 17 0-40 ALT (SGPT) 21 0-32 PROCEDURES Procedure Date Ordered Related Diagnosis Body Site [facility] Nov [facility], 2015 VENIPUNCT, ROUTINE* Nov 17, 2015 IMMUNIZATIONS No Known Immunizations
--- OUTSIDE RECORDS SUMMARY | 2017-06-03 09:13 | XMS REPORT ---
Author Author CATRACHITA MOLINA [facility] Address [address] [place] [address] Care Team Providers Care Coverstitch Binder Name Role Phone CATRACHITA MOLINA Unavailable PROBLEMS Type Condition ICD9-CM Code SST55-JE Code Onset Dates Condition Status SNOMED Code Problem Diabetes mellitus without mention of complication, type II or unspecified type, uncontrolled 250.02 Active 549656263 Problem Diabetic polyneuropathy associated with type 2 diabetes mellitus E11.42 Active 41949066 Problem Diabetes type 2, controlled E11.9 Active 10248696 Problem Elevated blood pressure reading without diagnosis of hypertension 796.2 Active 713310681 Problem Polyneuropathy in diabetes 357.2 Active 40871360 Problem Other chronic pain 338.29 Active 02313223 Problem Type 2 diabetes mellitus with hyperglycemia E11.65 Active 295848757426812 Problem Spinal stenosis, unspecified spinal region M48.00 Active 13527350 Problem Essential hypertension I10 Active 66852014 Problem RLS (restless legs syndrome) G25.81 Active 82003026 Problem Encounter for immunization Z23 Active 261951556 Problem Other chronic pain G89.29 Active 94086876 ALLERGIES No Known Allergies SOCIAL HISTORY Never Assessed PLAN OF CARE Activity Details Follow Up 3 Months Reason:dm VITAL SIGNS Height 64 in 2016-06-19 Weight 184 lbs 2016-06-19 Temperature 97 degrees Fahrenheit 2016-06-19 Heart Rate 101 bpm 2016-06-19 Respiratory Rate 14 2016-06-19 BMI 31.58 kg/m2 2016-06-19 Blood pressure systolic 132 mmHg 2016-06-19 Blood pressure diastolic 92 mmHg 2016-06-19 MEDICATIONS Medication Instructions Dosage Frequency Start Date End Date Duration Status Aspirin Adult Low Strength 81 MG Orally Once a day 1 tablet 24h Active Cozaar 25 MG Orally Once a day 1 tablet 24h Active Calcium 600 MG Orally Once a day 1 tablet with meals 24h Active Metformin HCl 1000 MG Orally Twice a day 1 tablet with meals 12h Active Insulin Syringe 31G X 16 as directed Feb, Active Poly-Iron 150 Forte 150-25-1 MG-MCG-MG TAKE ONE (1) CAPSULE BY MOUTH TWICE DAILY... Active Hydrocodone-Acetaminophen 7.5-325 MG Orally every 4-6 hrs PRN 1 tablet Active NovoFine 32G X 6 MM subcutaneous 2 times a day DX 250.00 1 needle Nov Active Neurontin 300 MG Orally Three times a day 1 capsule 8h Active Pen [place] 31G X 6 MM as directed 24h Dec, Active Glimepiride 2 MG Orally twice a day 2 tabletin am 1 at pm with meals 12h Active Lovastatin 20 MG Orally Once a day 1 tablet 24h Active Mirapex 0.5 MG take 1 tablet by Oral route 1 time per day 2-3 hours before bedtime Active Victoza 18 MG/3ML Subcutaneous Once a day 1.8 mg 24h Active Hydrochlorothiazide 25 MG Orally Once a day 1 tablet 24h Active Levemir 100 UNIT/ML Subcutaneous 2 times a day 60 units 12h Jun, Active Amitriptyline HCl 100 MG Orally Once a day 1 tablet 24h Active RESULTS Name Result Date Reference Range A1C (IN HOUSE) 2016-06-19 A1C IN HOUSE 7.9 4.3 - 5.6 % Previous A1c 7.3 Lot [id number] Exp date 12/19 PROCEDURES Procedure Date Ordered Result Body Site GLYCATED HEMOGLOBIN TEST June 19, 2016 [facility] VISIT ESTABLISHED PATIENT June 19, 2016 IMMUNIZATIONS No Known Immunizations MEDICAL (GENERAL) HISTORY [...]
--- OUTSIDE RECORDS SUMMARY | 2017-06-03 09:13 | XMS REPORT ---
Author Author CATRACHITA MOLINA [facility] Address [address] [place] [address] Care Team Providers Care Apartment Maintenance Supervisor Name Role Phone CATRACHITA MOLINA Unavailable PROBLEMS Type Condition ICD9-CM Code [id number] Code Onset Dates Condition Status SNOMED Code Problem Diabetes mellitus without mention of complication, type II or unspecified type, uncontrolled 250.02 Active 269663146 Problem Diabetic polyneuropathy associated with type 2 diabetes mellitus E11.42 Active 81809530 Problem Diabetes type 2, controlled E11.9 Active 94000690 Problem Elevated blood pressure reading without diagnosis of hypertension 796.2 Active 702484993 Problem Polyneuropathy in diabetes 357.2 Active 13340305 Problem Other chronic pain 338.29 Active 00865596 Problem Type 2 diabetes mellitus with hyperglycemia E11.65 Active 058359804664954 Problem Spinal stenosis, unspecified spinal region M48.00 Active 60812759 Problem Essential hypertension I10 Active 65549540 Problem RLS (restless legs syndrome) G25.81 Active 35194345 Problem Encounter for immunization Z23 Active 648264960 Problem Other chronic pain G89.29 Active 32911904 ALLERGIES Substance Reaction Event Type Date Status N.K.D.A. Unknown Non Drug Allergy Mar, Unknown SOCIAL HISTORY No smoking Hx information available PLAN OF CARE Activity Details Follow Up 3 Months Reason:dm VITAL SIGNS Height 64 in 2016-03-20 Weight 192.8 lbs 2016-03-20 Temperature 97.2 degrees Fahrenheit 2016-03-20 Heart Rate 88 bpm 2016-03-20 Respiratory Rate 16 2016-03-20 BMI 33.09 kg/m2 2016-03-20 Blood pressure systolic 130 mmHg 2016-03-20 Blood pressure diastolic 68 mmHg 2016-03-20 MEDICATIONS Medication Instructions Dosage Frequency Start Date End Date Duration Status Glimepiride 2 MG Orally twice a day 1 tablet 12h 27 Aug, 2015 Active Neurontin 300 MG Orally Three times a day 1 capsule 8h Active Amitriptyline HCl 100 MG Orally Once a day 1 tablet 24h Oct, Active Lovastatin 20 MG Orally Once a day 1 tablet 24h Mar, Active Insulin Syringe 31G X 5/16 as directed Feb, Active Calcium 600 MG Orally Once a day 1 tablet with meals 24h Active Hydrocodone-Acetaminophen 7.5-325 MG Orally every 4-6 hrs PRN 1 tablet Active Victoza 18 MG/3ML Subcutaneous Once a day 1.8 mg 24h Active Cozaar 25 MG Orally Once a day 1 tablet 24h Mar, Active Hydrochlorothiazide 25 MG Orally Once a day 1 tablet 24h Mar, Active Metformin HCl 1000 MG Orally Twice a day 1 tablet with meals 12h Oct, Active Aspirin Adult Low Strength 81 MG Orally Once a day 1 tablet 24h Active Pen [place] 31G X 6 MM as directed 24h Dec, Active Poly-Iron 150 Forte 150-25-1 MG-MCG-MG Orally 2 times a day 1 capsule 12h Active Mirapex 0.5 MG take 1 tablet by Oral route 1 time per day 2-3 hours before bedtime Active Pramipexole Dihydrochloride 0.5 MG TAKE (2) TABLETS BY MOUTH ONCE DAILY 2- 3 HOURS BEFORE BEDTIME. Active NovoFine 32G X 6 MM subcutaneous 2 times a day DX 250.00 1 needle Nov Active Levemir 100 UNIT/ML Subcutaneous 2 times a day 60 units 12h Jun, Active RESULTS Name Result Date Reference Range A1C (IN HOUSE) 2016-03-20 A1C IN HOUSE 7.3 4.3 - 5.6 % Previous A1c 8.3 Lot [id number] Exp date 12/19 PROCEDURES Procedure Date Ordered Related Diagnosis Body Site GLYCATED HEMOGLOBIN TEST Mar 20, 2016 [facility] VISIT ESTABLISHED PATIENT Mar 20, 2016 Office Visit, Est Pt., Level 3 Mar 20, 2016 IMMUNIZATIONS No Known Immunizations
--- OUTSIDE RECORDS SUMMARY | 2017-06-03 09:13 | XMS REPORT ---
Author Author GEORGIA GALVAN [employer] Address Unknown Phone Unavailable Care Team Providers Care Instructional Interventionist Name Role Phone GEORGIA GALVAN Unavailable Allergies, Adverse Reactions, Alerts Substance Reaction Event Type N.K.D.A. Info Not Available Non Drug Allergy Problems Problem Type Condition Code Onset Dates Condition Status Problem Polyneuropathy in diabetes 357.2 Active Problem Diabetes mellitus without mention of complication, type II or unspecified type, uncontrolled 250.02 Active Problem Diabetes type 1, uncontrolled E10.65 Active Assessment Diabetes type 1, uncontrolled E10.65 Active Problem Elevated blood pressure reading without diagnosis of hypertension 796.2 Active Problem Other chronic pain 338.29 Active Medications Medication Code System Code Instructions Start Date End Date Status Dosage Mirapex [facility] [address]-94 0.5 MG 2 tab(s) orally once a day (at bedtime) Mar 15, 2014 2 tablet by Oral route 1 time per day 2-3 hours before bedtime Levemir Flexpen [facility] 0 100 unit/mL (3 mL) Subcutaneous 2 times a day Mar 20 Units in AM and 24 units at HS NovoFine [facility] [address]-24 32G X 6 MM subcutaneous 2 times a day DX 250.00 Nov 10, 2014 1 needle Hydrocodone-Acetaminophen [facility] [address]-46 7.5-325 MG Orally every 4-6 hrs PRN 1 tablet Pen [place] [facility] [address]-43 31G X 6 MM Once a day Dec 23, 2014 as directed Aspirin Adult Low Strength [facility] [address]-20 81 MG Orally Once a day 1 tablet Poly-Iron 150 Forte [facility] [address]-17 150-25-1 MG-MCG-MG Orally 2 times a day Dec 02, 2014 1 capsule Hydrochlorothiazide [facility] [address]-42 25 MG Orally Once a day Mar 15, 2014 1 tablet Neurontin [facility] [address]-05 300 MG Mar 15, 2014 1 capsule by Oral route 3 times per day Metformin HCl [facility] [address]-18 1000 MG Orally Twice a day Nov 01, 2014 1 tablet with meals Calcium [facility] 62801-[address]94 600 MG Orally Once a day 1 tablet with meals Amitriptyline HCl [facility] [address]-21 100 MG Orally Once a day Nov 01, 2014 1 tablet Cozaar [facility] [address]-66 25 MG Orally Once a day Mar 15, 2014 1 tablet Lovastatin [facility] [address]-55 20 MG Orally Once a day Mar 15, 2014 1 tablet Victoza [facility] [address]-39 18 MG/3ML Subcutaneous Once a day 1.8 mg Procedures Procedure Coding System Code Date Office Visit, Est Pt., Level 3 CPT-4 34717 Mar 16, 2015 GLYCATED HEMOGLOBIN TEST CPT-4 05004 Mar 16, 2015 COUNTS INCLUDE 234 BEDS AT THE [facility] VISIT ESTABLISHED PATIENT CPT-4 G0467 Mar 16, 2015 Vital Signs Date/Time: Mar 16, 2015 Temperature 96.4 F Weight 170.4 lbs Height 64 in BMI 29.25 Index Cardiac Monitoring Heart Rate 108 bpm Results Name Result Date Reference Range Unit Abnormality Flag A1C (IN HOUSE) ----A1C IN HOUSE 12.2 20150316 4.30 - 5.6 % ----Previous A1c 9.8 20150316 ----Lot # [id number] ----Exp date 20150316 Summary Purpose eClinicalWorks Submission
--- OUTSIDE RECORDS SUMMARY | 2017-06-03 09:14 | XMS REPORT ---
Author Author CATRACHITA MOLINA Organization [employer] Address Unknown Phone Unavailable Care Team Providers Care Consulting Engineer Name Role Phone CATRACHITA MOLINA CP [...]
--- OUTSIDE RECORDS SUMMARY | 2017-06-03 09:14 | XMS REPORT ---
Author Author GEORGIA GALVAN [facility] e[employer] Address Unknown Phone Unavailable Care Team Providers Care Instrument Lens Generator Name Role Phone GEORGIA GALVAN Unavailable Allergies No Known Allergies Problems Problem Type Condition ICD-9 Code Onset Dates Condition Status Problem Diabetes mellitus without mention of complication, type II or unspecified type, uncontrolled 250.02 Active Problem Elevated blood pressure reading without diagnosis of hypertension 796.2 Active Problem Polyneuropathy in diabetes 357.2 Active Problem Other chronic pain 338.29 Active Medications Medication Code System Code Instructions Start Date End Date Status Dosage Lovastatin [facility] [address]-37 20 MG Orally Once a day Mar 15, 2014 1 tablet Results No Known Results Summary Purpose eClinicalWorks Submission
--- OUTSIDE RECORDS SUMMARY | 2017-06-03 09:14 | XMS REPORT ---
Author Author CATRACHITA MOLINA Organization [employer] Address Unknown Phone Unavailable Care Team Providers Care Computer Assembler Name Role Phone CATRACHITA MOLINA CP Unavailable Allergies No Known Allergies Problems Problem Type Condition Code Onset Dates Condition Status Problem Other chronic pain 338.29 Active Problem Diabetes mellitus without mention of complication, type II or unspecified type, uncontrolled 250.02 Active Problem Elevated blood pressure reading without diagnosis of hypertension 796.2 Active Problem Other chronic pain G89.29 Active Problem Essential hypertension I10 Active Problem Encounter for immunization Z23 Active Problem Diabetes type 2, controlled E11.9 Active Problem Polyneuropathy in diabetes 357.2 Active Problem Diabetic polyneuropathy associated with type 2 diabetes mellitus E11.42 Active Problem RLS (restless legs syndrome) G25.81 Active Medications Medication Code System Code Instructions Start Date End Date Status Dosage Hydrocodone-Acetaminophen [facility] [address]-38 7.5-325 MG Orally every 4-6 hrs PRN 1 tablet Results No Known Results Summary Purpose eClinicalWorks Submission
--- OUTSIDE RECORDS SUMMARY | 2017-06-03 09:14 | XMS REPORT ---
Author Author GEORGIA GALVAN [facility] eClinicalWorks Address Unknown Phone Unavailable Care Team Providers Care Stone Mill Operator Name Role Phone GEORGIA GALVAN Unavailable Allergies No Known Allergies Problems Problem Type Condition Code Onset Dates Condition Status Problem Diabetes mellitus without mention of complication, type II or unspecified type, uncontrolled 250.02 Active Problem Elevated blood pressure reading without diagnosis of hypertension 796.2 Active Problem Polyneuropathy in diabetes 357.2 Active Problem Other chronic pain 338.29 Active Assessment Chronic back pain 724.5 Active Medications Medication Code System Code Instructions Start Date End Date Status Dosage Hydrocodone-Acetaminophen [facility] [address]-33 7.5-325 MG Orally every 4-6 hrs PRN 1 tablet Results No Known Results Summary Purpose eClinicalWorks Submission
--- OUTSIDE RECORDS SUMMARY | 2017-06-03 09:14 | XMS REPORT ---
Author Author GEORGIA GALVAN [facility] eClinicalWorks Address Unknown Phone Unavailable Care Team Providers Care Creative Developer Name Role Phone GEORGIA GALVAN Unavailable Allergies [...] Date End Date Status Dosage Amitriptyline HCl [facility] [address]-47 100 MG Orally Once a day Nov 01, 2014 1 tablet Cozaar [facility] [address]-65 25 MG Orally Once a day Mar 15, 2014 1 tablet Hydrochlorothiazide [facility] [address]-93 25 MG Orally Once a day Mar 15, 2014 1 tablet Metformin HCl [facility] [address]-12 1000 MG Orally Twice a day Nov 01, 2014 1 tablet with meals Results No Known Results Summary Purpose eClinicalWorks Submission
--- OUTSIDE RECORDS SUMMARY | 2017-06-03 09:14 | XMS REPORT ---
Author Author YOANDY WINTER [facility] eClinicalWorks Address Unknown Phone Unavailable Care Team Providers Care Dough Molder Hand Name Role Phone YOANDY WINTER Unavailable Allergies, Adverse Reactions, Alerts Substance Reaction Event Type N.K.D.A. Info Not Available Non Drug Allergy Problems Problem Type Condition Code Onset Dates Condition Status Problem Polyneuropathy in diabetes 357.2 Active Problem Diabetes mellitus without mention of complication, type II or unspecified type, uncontrolled 250.02 Active Problem Diabetes type 2, controlled E11.9 Active Assessment Dental examination Z01.20 Active Problem Elevated blood pressure reading without diagnosis of hypertension 796.2 Active Problem Other chronic pain 338.29 Active Medications Medication Code System Code Instructions Start Date End Date Status Dosage Aspirin Adult Low Strength [facility] [address]-97 81 MG Orally Once a day 1 tablet NovoFine [facility] [address]-33 32G X 6 MM subcutaneous 2 times a day DX 250.00 Nov 10, 2014 1 needle Lovastatin [facility] [address]-93 20 MG Orally Once a day Mar 15, 2014 1 tablet Levemir [facility] [address]-07 100 UNIT/ML Subcutaneous 2 times a day June 22, 2015 60 units Amitriptyline HCl [facility] [address]-36 100 MG Orally Once a day Nov 01, 2014 1 tablet Neurontin [facility] [address]-53 300 MG Orally Three times a day Mar 15, 2014 1 capsule Metformin HCl [facility] [address]-63 1000 MG Orally Twice a day Nov 01, 2014 1 tablet with meals Cozaar [facility] [address]-23 25 MG Orally Once a day Mar 15, 2014 1 tablet Glimepiride [facility] [address]-07 2 MG Orally twice a day August 29, 2015 1 tablet with breakfast and supper Poly-Iron 150 Forte [facility] 21247685690 150-25-1 MG-MCG-MG Orally 2 times a day 1 capsule Pen [place] [facility] [address]-81 31G X 6 MM 2 times a day Dec 23, 2014 as directed Hydrocodone-Acetaminophen [facility] [address]-19 7.5-325 MG Orally every 4-6 hrs PRN 1 tablet Hydrochlorothiazide [facility] [address]-86 25 MG Orally Once a day Mar 15, 2014 1 tablet Calcium [facility] 7[address]-28215 600 MG Orally Once a day 1 tablet with meals Victoza [facility] [address]-84 18 MG/3ML Subcutaneous Once a day 1.8 mg Mirapex [facility] 36066415395 0.5 MG 2 tab(s) orally once a day (at bedtime) take 1 tablet by Oral route 1 time per day 2-3 hours before bedtime Procedures Procedure Coding System Code Date RELINE COMPLETE MANDIBULAR DENTURE CPT-4 D5731 September 15, 2015 Dental no charge CPT-4 D0099 September 15, 2015 RELINE COMPLETE MAXILLARY DENTURE CPT-4 D5730 September 15, 2015 Billing Notes on claim CPT-4 EC109 September 15, 2015 Vital Signs Date/Time: September 15, 2015 Blood Pressure Systolic 134 mmHg Cardiac Monitoring Heart Rate 94 bpm Height 64 in Blood Pressure Diastolic 86 mmHg Results No Known Results Summary Purpose eClinicalWorks Submission
--- OUTSIDE RECORDS SUMMARY | 2017-06-03 09:14 | XMS REPORT ---
Author Author CATRACHITA MOLINA [facility] Address [address] [place] [address] Care Team Providers Care Head Mixer Name Role Phone CATRACHITA MOLINA Unavailable PROBLEMS Type Condition ICD9-CM Code [id number] Code Onset Dates Condition Status SNOMED Code Problem Other chronic pain G89.29 Active 67150103 Problem RLS (restless legs syndrome) G25.81 Active 46056921 Problem Diabetic polyneuropathy associated with type 2 diabetes mellitus E11.42 Active 14651494 Problem Type 2 diabetes mellitus with other specified complication E11.69 Active 53042556595500 Problem Hyperlipidemia, unspecified E78.5 Active 36039195 Problem Encounter for immunization Z23 Active 944262307 Problem Essential hypertension I10 Active 24807748 Problem Type 2 diabetes mellitus with hyperglycemia E11.65 Active 923494739010777 Problem Spinal stenosis, unspecified spinal region M48.00 Active 09097382 Problem Polyneuropathy in diabetes 357.2 Active 67847995 Problem Other chronic pain 338.29 Active 41680602 Problem Diabetes mellitus without mention of complication, type II or unspecified type, uncontrolled 250.02 Active 260518124 Problem Elevated blood pressure reading without diagnosis of hypertension 796.2 Active 997127964 Problem Diabetes type 2, controlled E11.9 Active 70759475 ALLERGIES No Information SOCIAL HISTORY Never Assessed [...]
--- OUTSIDE RECORDS SUMMARY | 2017-06-03 09:14 | XMS REPORT ---
Author Author CATRACHITA MOLINA [facility] Address [address] [place] [address] Care Team Providers Care Encyclopedia Research Worker Name Role Phone CATRACHITA MOLINA Unavailable PROBLEMS Type Condition ICD9-CM Code [id number] Code Onset Dates Condition Status SNOMED Code Problem Other chronic pain 338.29 Active 34463687 Problem Diabetes mellitus without mention of complication, type II or unspecified type, uncontrolled 250.02 Active 320463763 Problem Elevated blood pressure reading without diagnosis of hypertension 796.2 Active 657024083 Assessment Diabetes type 2, controlled E11.9 Nov, Active 153934865 Problem Other chronic pain G89.29 Active 66022492 Problem Essential hypertension I10 Active 33427470 Problem Diabetes type 2, controlled E11.9 Active 08886951 Problem Polyneuropathy in diabetes 357.2 Active 64660988 Problem Diabetic polyneuropathy associated with type 2 diabetes mellitus E11.42 Active 75679048 Problem RLS (restless legs syndrome) G25.81 Active 21598601 ALLERGIES Substance Reaction Event Type Date Status N.K.D.A. Unknown Non Drug Allergy Nov, Unknown SOCIAL HISTORY No smoking Hx information available PLAN OF CARE VITAL SIGNS Height 64 in 2015-11-16 Weight 185.8 lbs 2015-11-16 Heart Rate 84 bpm 2015-11-16 Respiratory Rate 16 2015-11-16 BMI 31.89 kg/m2 2015-11-16 Blood pressure systolic 128 mmHg 2015-11-16 Blood pressure diastolic 80 mmHg 2015-11-16 MEDICATIONS Medication Instructions Dosage Frequency Start Date End Date Duration Status Neurontin 300 MG Orally Three times a day 1 capsule 8h Active NovoFine 32G X 6 MM subcutaneous 2 times a day DX 250.00 1 needle 09 Nov Active Pramipexole Dihydrochloride 0.5 MG TAKE (2) TABLETS BY MOUTH ONCE DAILY 2- 3 HOURS BEFORE BEDTIME. Active Levemir 100 UNIT/ML Subcutaneous 2 times a day 60 units 12h 20 Jun, 2015 Active Aspirin Adult Low Strength 81 MG Orally Once a day 1 tablet 24h Active Hydrocodone-Acetaminophen 7.5-325 MG Orally every 4-6 hrs PRN 1 tablet Active Hydrochlorothiazide 25 MG Orally Once a day 1 tablet 24h Mar, Active Calcium 600 MG Orally Once a day 1 tablet with meals 24h Active Pen [place] 31G X 6 MM as directed 12h Dec, Active Mirapex 0.5 MG take 1 tablet by Oral route 1 time per day 2-3 hours before bedtime Active Victoza 18 MG/3ML Subcutaneous Once a day 1.8 mg 24h Active Amitriptyline HCl 100 MG Orally Once a day 1 tablet 24h Oct, Active Lovastatin 20 MG Orally Once a day 1 tablet 24h Mar, Active Metformin HCl 1000 MG Orally Twice a day 1 tablet with meals 12h Oct, Active Cozaar 25 MG Orally Once a day 1 tablet 24h Mar, Active Glimepiride 2 MG Orally twice a day 1 tablet 12h Aug, Active Poly-Iron 150 Forte 150-25-1 MG-MCG-MG Orally 2 times a day 1 capsule 12h Active RESULTS Name Result Date Reference Range A1C (IN HOUSE) 2015-11-16 A1C IN HOUSE 8.3 4.3 - 5.6 % Previous A1c 12.5 Lot [id number] Exp date 08/2017 PROCEDURES Procedure Date Ordered Related Diagnosis Body Site [facility] VIS[facility] ESTABLISHED PATIENT Nov 16, 2015 Office Visit, Est Pt., Level 3 Nov 16, 2015 GLYCATED HEMOGLOBIN TEST Nov 16, 2015 IMMUNIZATIONS No Known Immunizations
--- OUTSIDE RECORDS SUMMARY | 2017-06-03 09:14 | XMS REPORT ---
Author Author GEORGIA GALVAN [facility] eClinicalWorks Address Unknown Phone Unavailable Care Team Providers Care Animal Feeder Name Role Phone GEORGIA GALVAN Unavailable Allergies [...] Start Date End Date Status Dosage Hydrocodone-Acetaminophen [facility] [address]-51 7.5-325 MG Orally every 4-6 hrs PRN 1 tablet Results No Known Results Summary Purpose eClinicalWorks Submission
--- OUTSIDE RECORDS SUMMARY | 2017-06-03 09:14 | XMS REPORT ---
Author Author GEORGIA GALVAN [employer] Address Unknown Phone Unavailable Care Team Providers Care Feed Mill Lab Technician Name Role Phone GEORGIA GALVAN Unavailable Allergies, Adverse Reactions, Alerts Substance Reaction Event Type N.K.D.A. Info Not Available Non Drug Allergy Problems Problem Type Condition Code Onset Dates Condition Status Problem Diabetes mellitus without mention of complication, type II or unspecified type, uncontrolled 250.02 Active Problem Elevated blood pressure reading without diagnosis of hypertension 796.2 Active Problem Polyneuropathy in diabetes 357.2 Active Assessment Headache, unspecified headache type R51 Active Problem Other chronic pain 338.29 Active Assessment Gastroenteritis K52.9 Active Medications Medication Code System Code Instructions Start Date End Date Status Dosage Levemir Flexpen [facility] [address]-41 100 unit/mL (3 mL) Mar 15, 2014 15 Units by Subcutaneous route 1 time per day at bedtime Amitriptyline HCl [facility] [address]-62 100 MG Orally Once a day Nov 01, 2014 1 tablet Victoza [facility] [address]-57 18 MG/3ML Subcutaneous Once a day 1.8 mg Aspirin Adult Low Strength [facility] [address]-06 81 MG Orally Once a day 1 tablet Hydrochlorothiazide [facility] [address]-10 25 MG Orally Once a day Mar 15, 2014 1 tablet Cozaar [facility] [address]-67 25 MG Orally Once a day Mar 15, 2014 1 tablet NovoFine [facility] [address]-72 32G X 6 MM subcutaneous 2 times a day DX 250.00 Nov 10, 2014 1 needle Pen [place] [facility] [address]-64 31G X 6 MM Once a day Dec 23, 2014 as directed Vitamin D (Ergocalciferol) [facility] [address]-98 30819 UNIT Orally twice a week 1 capsule Calcium [facility] [address]23 600 MG Orally Once a day 1 tablet with meals Metformin HCl [facility] [address]-36 1000 MG Orally Twice a day Nov 01, 2014 1 tablet with meals Mirapex [facility] [address]-99 0.5 mg 2 tab(s) orally once a day (at bedtime) Mar 15, 2014 take 1 tablet by Oral route 1 time per day 2-3 hours before bedtime Hydrocodone-Acetaminophen [facility] [address]-36 7.5-325 MG Orally every 4-6 hrs PRN 1 tablet Neurontin [facility] [address]-49 300 mg Mar 15, 2014 1 capsule by Oral route 3 times per day Lovastatin [facility] [address]-37 20 MG Orally Once a day Mar 15, 2014 1 tablet Poly-Iron 150 Forte [facility] [address]-25 150-25-1 MG-MCG-MG Orally 2 times a day Dec 02, 2014 1 capsule Procedures Procedure Coding System Code Date BENADRYL (DIPHENHY HCL) 50 MG/ML (UP TO 50 MG) CPT-4 J1200 Dec 27, 2014 THER/PROPH/DIAG INJ, SC/IM CPT-4 24396 Dec 27, 2014 MEASURE BLOOD OXYGEN LEVEL CPT-4 48868 Dec 27, 2014 [facility] VISIT ESTABLISHED PATIENT CPT-4 G0467 Dec 27, 2014 NORFLEX 60 MG/2 ML (UP TO 60 MG) CPT-4 J2360 Dec 27, 2014 Office Visit, Est Pt., Level 3 CPT-4 89684 Dec 27, 2014 Vital Signs Date/Time: Dec 27, 2014 Temperature 99.2 F Weight 159.0 lbs Height 64 in Oximetry 98 % Blood Pressure Diastolic 60 mmHg Blood Pressure Systolic 100 mmHg Cardiac Monitoring Heart Rate 120 bpm BMI 27.29 Index Results No Known Results Summary Purpose eClinicalWorks Submission
--- OUTSIDE RECORDS SUMMARY | 2017-06-03 09:14 | XMS REPORT ---
Author Author CATRACHITA MOLINA [facility] Address [address] [place] [address] Care Team Providers Care Distribution Technician Name Role Phone CATRACHITA MOLINA Unavailable PROBLEMS Type Condition ICD9-CM Code [id number] Code Onset Dates Condition Status SNOMED Code Problem Diabetes mellitus without mention of complication, type II or unspecified type, uncontrolled 250.02 Active 621772146 Problem Diabetic polyneuropathy associated with type 2 diabetes mellitus E11.42 Active 98167696 Problem Diabetes type 2, controlled E11.9 Active 98803287 Problem Elevated blood pressure reading without diagnosis of hypertension 796.2 Active 893031202 Problem Polyneuropathy in diabetes 357.2 Active 05873495 Problem Other chronic pain 338.29 Active 10301703 Problem Type 2 diabetes mellitus with hyperglycemia E11.65 Active 426038180423688 Problem Spinal stenosis, unspecified spinal region M48.00 Active 48117096 Problem Essential hypertension I10 Active 72009191 Problem RLS (restless legs syndrome) G25.81 Active 38438573 Problem Encounter for immunization Z23 Active 933152602 Problem Other chronic pain G89.29 Active 94224722 ALLERGIES Unknown Allergies SOCIAL HISTORY No smoking Hx information available PLAN OF CARE VITAL SIGNS MEDICATIONS Unknown Medications RESULTS No Results PROCEDURES No Known procedures IMMUNIZATIONS No Known Immunizations
--- OUTSIDE RECORDS SUMMARY | 2017-06-03 09:14 | XMS REPORT ---
Author Author GEORGIA GALVAN eClinical[employer] Address Unknown Phone Unavailable Care Team Providers Care Plant Attendant Name Role Phone GEORGIA GALVAN Unavailable Allergies, Adverse Reactions, Alerts Substance Reaction Event Type N.K.D.A. Info Not Available Non Drug Allergy Problems Problem Type Condition Code Onset Dates Condition Status Problem Polyneuropathy in diabetes 357.2 Active Problem Diabetes mellitus without mention of complication, type II or unspecified type, uncontrolled 250.02 Active Problem Diabetes type 2, controlled E11.9 Active Assessment Diabetes type 2, controlled E11.9 Active Problem Elevated blood pressure reading without diagnosis of hypertension 796.2 Active Problem Other chronic pain 338.29 Active Medications Medication Code System Code Instructions Start Date End Date Status Dosage Victoza [facility] [address]-87 18 MG/3ML Subcutaneous Once a day 1.8 mg Aspirin Adult Low Strength [facility] [address]-39 81 MG Orally Once a day 1 tablet Hydrochlorothiazide [facility] [address]-82 25 MG Orally Once a day Mar 15, 2014 1 tablet Metformin HCl [facility] [address]-31 1000 MG Orally Twice a day Nov 01, 2014 1 tablet with meals Calcium [facility] [address]05 600 MG Orally Once a day 1 tablet with meals Lovastatin [facility] [address]-10 20 MG Orally Once a day Mar 15, 2014 1 tablet Cozaar [facility] [address]-73 25 MG Orally Once a day Mar 15, 2014 1 tablet Amitriptyline HCl [facility] [address]-87 100 MG Orally Once a day Nov 01, 2014 1 tablet Poly-Iron 150 Forte [facility] [address]-54 150-25-1 MG-MCG-MG Orally 2 times a day Dec 02, 2014 1 capsule Neurontin [facility] [address]-95 300 MG Orally Three times a day Mar 15, 2014 1 capsule Pen [place] [facility] [address]-41 31G X 6 MM 2 times a day Dec 23, 2014 as directed Mirapex [facility] [address]-32 0.5 MG 2 tab(s) orally once a day (at bedtime) Mar 15, 2014 2 tablet by Oral route 1 time per day 2-3 hours before bedtime Hydrocodone-Acetaminophen [facility] [address]-00 7.5-325 MG Orally every 4-6 hrs PRN 1 tablet NovoFine [facility] [address]-32 32G X 6 MM subcutaneous 2 times a day DX 250.00 Nov 10, 2014 1 needle Levemir [facility] [address]-10 100 UNIT/ML Subcutaneous 2 times a day June 22, 2015 60 units Procedures Procedure Coding System Code Date [facility] VISIT ESTABLISHED PATIENT CPT-4 G0467 June 22, 2015 Office Visit, Est Pt., Level 3 CPT-4 06079 June 22, 2015 GLYCATED HEMOGLOBIN TEST CPT-4 55169 June 22, 2015 Vital Signs Date/Time: June 22, 2015 Temperature 97.5 F Weight 174.2 lbs Height 64 in BMI 29.90 Index Blood Pressure Diastolic 72 mmHg Blood Pressure Systolic 126 mmHg Cardiac Monitoring Heart Rate 99 bpm Results Name Result Date Reference Range Unit Abnormality Flag A1C (IN HOUSE) ----A1C IN HOUSE 12.5 [id number] 4.3 - 5.6 % ----Previous A1c 12.2 [id number] ----Lot [id number] ----Exp date [id number] Summary Purpose eClinicalWorks Submission
--- OUTSIDE RECORDS SUMMARY | 2017-06-03 09:14 | XMS REPORT ---
Author Author CATRACHITA MOLINA [facility] Address [address] [place] [address] Care Team Providers Care Training Instructor Name Role Phone CATRACHITA MOLINA Unavailable PROBLEMS Type Condition ICD9-CM Code [id number] Code Onset Dates Condition Status SNOMED Code Problem Polyneuropathy in diabetes 357.2 Active 42409861 Problem RLS (restless legs syndrome) G25.81 Active 16338324 Problem Diabetes type 2, controlled E11.9 Active 26685483 Problem Other chronic pain 338.29 Active 32419861 Problem Elevated blood pressure reading without diagnosis of hypertension 796.2 Active 742968119 Problem Diabetes mellitus without mention of complication, type II or unspecified type, uncontrolled 250.02 Active 271075838 Problem Type 2 diabetes mellitus with hyperglycemia E11.65 Active 385352707743606 Problem Spinal stenosis, unspecified spinal region M48.00 Active 50956250 Problem Essential hypertension I10 Active 55359062 Problem Diabetic polyneuropathy associated with type 2 diabetes mellitus E11.42 Active 24603228 Problem Encounter for immunization Z23 Active 509124204 Problem Other chronic pain G89.29 Active 77725633 ALLERGIES Unknown Allergies SOCIAL HISTORY No smoking Hx information available PLAN OF CARE VITAL SIGNS MEDICATIONS Unknown Medications RESULTS No Results PROCEDURES No Known procedures IMMUNIZATIONS No Known Immunizations
--- OUTSIDE RECORDS SUMMARY | 2017-06-03 09:14 | XMS REPORT ---
Author Author GEORGIA GALVAN [facility] eClinicalWorks Address Unknown Phone Unavailable Care Team Providers Care Director Patient Name Role Phone GEORGIA GALVAN Unavailable Allergies [...]
--- OUTSIDE RECORDS SUMMARY | 2017-06-03 09:15 | XMS REPORT ---
Author Author GEORGIA GALVAN [facility] eClinicalWorks Address Unknown Phone Unavailable Care Team Providers Care Procedure Writer Name Role Phone GEORGIA GALVAN Unavailable Allergies [...] Date End Date Status Dosage Amitriptyline HCl [facility] [address]-17 100 MG Orally Once a day Nov 01, 2014 1 tablet Results No Known Results Summary Purpose eClinicalWorks Submission
--- OUTSIDE RECORDS SUMMARY | 2017-06-03 09:15 | XMS REPORT ---
Author Author GEORGIA GALVAN [facility] eClinicalWorks Address Unknown Phone Unavailable Care Team Providers Care Workers' Compensation Commissioner Name Role Phone GEORGIA GALVAN Unavailable Allergies [...] Start Date End Date Status Dosage Hydrocodone-Acetaminophen [facility] [address]-57 7.5-325 MG Orally every 4-6 hrs PRN 1 tablet Results No Known Results Summary Purpose eClinicalWorks Submission
--- OUTSIDE RECORDS SUMMARY | 2017-06-03 09:15 | XMS REPORT ---
Author GEORGIA Sherman eClinicalWorks Address Unknown Phone Unavailable Care Team Providers Care Solution Design Engineer Name Role Phone GEORGIA GALVAN Unavailable Allergies, Adverse Reactions, Alerts Substance Reaction Event Type N.K.D.A. Info Not Available Non Drug Allergy Problems Problem Type Condition ICD-9 Code Onset Dates Condition Status Problem Diabetes mellitus without mention of complication, type II or unspecified type, uncontrolled 250.02 Active Problem Elevated blood pressure reading without diagnosis of hypertension 796.2 Active Problem Polyneuropathy in diabetes 357.2 Active Assessment Diabetes mellitus without mention of complication, type II or unspecified type, uncontrolled 250.02 Active Problem Other chronic pain 338.29 Active Assessment Chronic back pain 724.5 Active Medications Medication Code System Code Instructions Start Date End Date Status Dosage Hydrochlorothiazide [facility] [address]-15 25 MG Orally Once a day Mar 15, 2014 1 tablet Metformin HCl [facility] [address]-63 1000 MG Orally Twice a day Nov 01, 2014 1 tablet with meals Mirapex [facility] [address]-57 0.5 mg 2 tab(s) orally once a day (at bedtime) Mar 15, 2014 take 1 tablet by Oral route 1 time per day 2-3 hours before bedtime Neurontin [facility] [address]-32 300 mg Mar 15, 2014 1 capsule by Oral route 3 times per day Aspirin Adult Low Strength [facility] [address]-04 81 MG Orally Once a day 1 tablet Amitriptyline HCl [facility] [address]-85 100 MG Orally Once a day Nov 01, 2014 1 tablet Victoza [facility] [address]-29 18 MG/3ML Subcutaneous Once a day 0.2 ml Calcium [facility] [address]11 600 MG Orally Once a day 1 tablet with meals Niferex-150 Forte [facility] 0 150-25-1 mg-mcg-mg 2 times a day Mar 15, 2014 1 capsule Lovastatin [facility] [address]-20 20 MG Orally Once a day Mar 15, 2014 1 tablet Levemir Flexpen [facility] 0 100 unit/mL (3 mL) Mar 15, 2014 15 Units by Subcutaneous route 1 time per day at bedtime Vitamin D (Ergocalciferol) [facility] [address]-91 81959 UNIT Orally twice a week 1 capsule NovoFine [facility] [address]-51 32G X 6 MM subcutaneous 2 times a day DX 250.00 Nov 10, 2014 1 needle Hydrocodone-Acetaminophen [facility] [address]-55 7.5-325 MG Orally every 4-6 hrs PRN 1 tablet Cozaar [facility] [address]-17 25 MG Orally Once a day Mar 15, 2014 1 tablet Procedures Procedure Coding System Code Date [facility] VISIT ESTABLISHED PATIENT CPT-4 G0467 Nov 10, 2014 Office Visit, Est Pt., Level 3 CPT-4 86684 Nov 10, 2014 No Charge CPT-4 48925 Nov 10, 2014 Vital Signs Date/Time: Nov 10, 2014 Temperature 98.3 F Weight 169.8 lbs Height 64 in BMI 29.14 Index Blood Pressure Diastolic 75 mmHg Blood Pressure Systolic 110 mmHg Cardiac Monitoring Heart Rate 88 bpm Results No Known Results Summary Purpose eClinicalWorks Submission
--- OUTSIDE RECORDS SUMMARY | 2017-06-03 09:15 | XMS REPORT ---
Author Author GEORGIA GALVAN [facility] eClinicalWorks Address Unknown Phone Unavailable Care Team Providers Care Bus Steward Name Role Phone GEORGIA GALVAN Unavailable Allergies [...]
--- OUTSIDE RECORDS SUMMARY | 2017-06-03 09:17 | XMS REPORT | Continuity of Care Document ---
Author Author [facility] Address Unknown Phone Unavailable Allergies Active Description Code Type Severity Reaction Onset Reported/Identified Relationship to Patient Clinical Status Yes No Known Drug Allergies [id number] Drug Allergy Unknown N/A 11/05/2009 Medications There is no data. Problems Date Dx Coded Attending Type Code Diagnosis Diagnosed By 10/10/2007 MARITZA NICOLE MD 250.02 Diabetes Ii Uncontrolled 10/10/2007 MARITZA NICOLE MD 272.4 HYPERLIPIDEMIA HYPERLIPOPROTEINEMIAS (Old Classification) 10/10/2007 MARITZA NICOLE MD 250.02 Diabetes Ii Uncontrolled 10/10/2007 MARITZA NICOLE MD 272.4 HYPERLIPIDEMIA HYPERLIPOPROTEINEMIAS (Old Classification) 10/10/2007 MARITZA NICOLE MD 250.02 Diabetes Ii Uncontrolled 10/10/2007 MARITZA NICOLE MD 272.4 HYPERLIPIDEMIA HYPERLIPOPROTEINEMIAS (Old Classification) 10/10/2007 MANNY VALDIVIA APRN 250.02 Diabetes Ii Uncontrolled 10/10/2007 MANNY VALDIVIA APRN 272.4 HYPERLIPIDEMIA HYPERLIPOPROTEINEMIAS (Old Classification) 10/10/2007 250.02 Diabetes Ii Uncontrolled 10/10/2007 272.4 HYPERLIPIDEMIA HYPERLIPOPROTEINEMIAS (Old Classification) 10/10/2007 250.02 Diabetes Ii Uncontrolled 10/10/2007 272.4 HYPERLIPIDEMIA HYPERLIPOPROTEINEMIAS (Old Classification) 10/10/2007 250.02 Diabetes Ii Uncontrolled 10/10/2007 272.4 HYPERLIPIDEMIA HYPERLIPOPROTEINEMIAS (Old Classification) 10/10/2007 250.02 DIABETES MELLITUS TYPE 2 - UNCOMPLICATED, UNCONTROLLED 10/10/2007 272.4 DYSLIPIDEMIA 10/10/2007 250.02 DIABETES MELLITUS TYPE 2 - UNCOMPLICATED, UNCONTROLLED 10/10/2007 272.4 DYSLIPIDEMIA 10/10/2007 250.02 DIABETES MELLITUS TYPE 2 - UNCOMPLICATED, UNCONTROLLED 10/10/2007 272.4 DYSLIPIDEMIA 10/10/2007 JOSE LUIS SOLO DO 250.02 DIABETES MELLITUS TYPE 2 - UNCOMPLICATED, UNCONTROLLED 10/10/2007 SOLO DO, JOSE LUIS K 272.4 DYSLIPIDEMIA 10/10/2007 SOLO DO, JOSE LUIS K 250.02 DIABETES MELLITUS TYPE 2 - UNCOMPLICATED, UNCONTROLLED 10/10/2007 SOLO DO, JOSE LUIS K 272.4 DYSLIPIDEMIA 10/10/2007 [facility] 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 ASSISTANT, [place] E 250.02 DIABETES MELLITUS TYPE 2 - UNCOMPLICATED, UNCONTROLLED 10/10/2007 [facility] 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 ASSISTANT, [place] E 272.4 DYSLIPIDEMIA 10/10/2007 SOLO DO, JOSE LUIS K 250.02 DIABETES MELLITUS TYPE 2 - UNCOMPLICATED, UNCONTROLLED 10/10/2007 SOLO DO, JOSE LUIS K 272.4 DYSLIPIDEMIA 10/10/2007 [facility] 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 ASSISTANT, [place] E 250.02 DIABETES MELLITUS TYPE 2 - UNCOMPLICATED, UNCONTROLLED 10/10/2007 [facility] 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 ASSISTANT, [place] E 272.4 DYSLIPIDEMIA 10/10/2007 [facility] 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 ASSISTANT, [place] E 250.02 DIABETES MELLITUS TYPE 2 - UNCOMPLICATED, UNCONTROLLED 10/10/2007 [facility] 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 ASSISTANT, [place] E 272.4 DYSLIPIDEMIA 10/10/2007 SOLO DO, JOSE LUIS K 250.02 DIABETES MELLITUS TYPE 2 - UNCOMPLICATED, UNCONTROLLED 10/10/2007 SOLO DO, JOSE LUIS K 272.4 DYSLIPIDEMIA 10/10/2007 SOLO DO, JOSE LUIS K 250.02 DIABETES MELLITUS TYPE 2 - UNCOMPLICATED, UNCONTROLLED 10/10/2007 SOLO DO, JOSE LUIS K 272.4 DYSLIPIDEMIA 10/10/2007 [facility] 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 ASSISTANT, [place] E 250.02 DIABETES MELLITUS TYPE 2 - UNCOMPLICATED, UNCONTROLLED 10/10/2007 [facility] 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 ASSISTANT, [place] E 272.4 DYSLIPIDEMIA 10/10/2007 SOLO DO, JOSE LUIS K 250.02 DIABETES MELLITUS TYPE 2 - UNCOMPLICATED, UNCONTROLLED 10/10/2007 SOLO DO, JOSE LUIS K 272.4 DYSLIPIDEMIA 10/10/2007 SOLO DO, JOSE LUIS K 250.02 DIABETES MELLITUS TYPE 2 - UNCOMPLICATED, UNCONTROLLED 10/10/2007 SOLO DO, JOSE LUIS K 272.4 DYSLIPIDEMIA 10/10/2007 [facility] 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 ASSISTANT, [place] E 250.02 DIABETES MELLITUS TYPE 2 - UNCOMPLICATED, UNCONTROLLED 10/10/2007 [facility] 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 ASSISTANT, [place] E 272.4 DYSLIPIDEMIA 10/10/2007 SOLO DO, JOSE LUIS K 250.02 DIABETES MELLITUS TYPE 2 - UNCOMPLICATED, UNCONTROLLED 10/10/2007 SOLO DO, JOSE LUIS K 272.4 DYSLIPIDEMIA 10/14/2007 COREY REYES, MARITZA 250.00 DIABETES MELLITUS TYPE 2 - UNCOMPLICATED, CONTROLLED 10/14/2007 COREY REYSE, MARITZA 338.4 PAIN CHRONIC SYNDROME 10/14/2007 MARITZA NICOLE MD 599.0 URINARY TRACT INFECTION 10/14/2007 MARITZA NICOLE MD 250.00 DIABETES MELLITUS TYPE 2 - UNCOMPLICATED, CONTROLLED 10/14/2007 MARITZA NICOLE MD 338.4 PAIN CHRONIC SYNDROME 10/14/2007 MARITZA NICOLE MD 599.0 URINARY TRACT INFECTION 10/14/2007 MARITZA NICOLE MD 250.00 DIABETES MELLITUS TYPE 2 - UNCOMPLICATED, CONTROLLED 10/14/2007 MARITZA NICOLE MD 338.4 PAIN CHRONIC SYNDROME 10/14/2007 MARITZA NICOLE MD 599.0 URINARY TRACT INFECTION 10/14/2007 MANNY VALDIVIA APRN 250.00 DIABETES MELLITUS TYPE 2 - UNCOMPLICATED, CONTROLLED 10/14/2007 MANNY VALDIVIA APRN 338.4 PAIN CHRONIC SYNDROME 10/14/2007 MANNY VALDIVIA APRN 599.0 URINARY TRACT INFECTION 10/14/2007 250.00 DIABETES MELLITUS TYPE 2 - UNCOMPLICATED, CONTROLLED 10/14/2007 338.4 PAIN CHRONIC SYNDROME 10/14/2007 599.0 URINARY TRACT INFECTION 10/14/2007 250.00 DIABETES MELLITUS TYPE 2 - UNCOMPLICATED, CONTROLLED 10/14/2007 338.4 PAIN CHRONIC SYNDROME 10/14/2007 599.0 URINARY TRACT INFECTION 10/14/2007 250.00 DIABETES MELLITUS TYPE 2 - UNCOMPLICATED, CONTROLLED 10/14/2007 338.4 PAIN CHRONIC SYNDROME 10/14/2007 599.0 URINARY TRACT INFECTION 10/14/2007 250.00 DIABETES MELLITUS TYPE 2 - UNCOMPLICATED, CONTROLLED 10/14/2007 338.4 PAIN CHRONIC SYNDROME 10/14/2007 599.0 URINARY TRACT INFECTION 10/14/2007 250.00 DIABETES MELLITUS TYPE 2 - UNCOMPLICATED, CONTROLLED 10/14/2007 338.4 PAIN CHRONIC SYNDROME 10/14/2007 599.0 URINARY TRACT INFECTION 10/14/2007 250.00 DIABETES MELLITUS TYPE 2 - UNCOMPLICATED, CONTROLLED 10/14/2007 338.4 PAIN CHRONIC SYNDROME 10/14/2007 599.0 URINARY TRACT INFECTION 10/14/2007 JOSE LUIS SOLO DO 250.00 DIABETES MELLITUS TYPE 2 - UNCOMPLICATED, CONTROLLED 10/14/2007 JOSE LUIS SOLO DO 338.4 PAIN CHRONIC SYNDROME 10/14/2007 JOSE LUIS SOLO DO 599.0 URINARY TRACT INFECTION 10/14/2007 SOLO DO, JOSE LUIS K 250.00 DIABETES MELLITUS TYPE 2 - UNCOMPLICATED, CONTROLLED 10/14/2007 SOLO DO, JOSE LUIS K 338.4 PAIN CHRONIC SYNDROME 10/14/2007 SOLO DO, JOSE LUIS K 599.0 URINARY TRACT INFECTION 10/14/2007 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 [place] E 250.00 DIABETES MELLITUS TYPE 2 - UNCOMPLICATED, CONTROLLED 10/14/2007 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 [place] E 338.4 PAIN CHRONIC SYNDROME 10/14/2007 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 [place] E 599.0 URINARY TRACT INFECTION 10/14/2007 SOLO DO, JOSE LUIS K 250.00 DIABETES MELLITUS TYPE 2 - UNCOMPLICATED, CONTROLLED 10/14/2007 SOLO DO, JOSE LUIS K 338.4 PAIN CHRONIC SYNDROME 10/14/2007 SOLO DO, JOSE LUIS K 599.0 URINARY TRACT INFECTION 10/14/2007 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, [place] E 250.00 DIABETES MELLITUS TYPE 2 - UNCOMPLICATED, CONTROLLED 10/14/2007 [facility] 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 ASSISTANT, [place] E 338.4 PAIN CHRONIC SYNDROME 10/14/2007 RADHALWIG 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 ASSISTANT [place] E 599.0 URINARY TRACT INFECTION 10/14/2007 RADHALWIG 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 ASSISTANT, [place] E 250.00 DIABETES MELLITUS TYPE 2 - UNCOMPLICATED, CONTROLLED 10/14/2007 RADHALWIG 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 ASSISTANT, [place] E 338.4 PAIN CHRONIC SYNDROME 10/14/2007 RADHALWIG 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 ASSISTANT [place] E 599.0 URINARY TRACT INFECTION 10/14/2007 SOLO DO, JOSE LUIS K 250.00 DIABETES MELLITUS TYPE 2 - UNCOMPLICATED, CONTROLLED 10/14/2007 SOLO DO, JOSE LUIS K 338.4 PAIN CHRONIC SYNDROME 10/14/2007 SOLO DO, JOSE LUIS K 599.0 URINARY TRACT INFECTION 10/14/2007 SOLO DO, JOSE LUIS K 250.00 DIABETES MELLITUS TYPE 2 - UNCOMPLICATED, CONTROLLED 10/14/2007 SOLO DO, JOSE LUIS K 338.4 PAIN CHRONIC SYNDROME 10/14/2007 SOLO DO, JOSE LUIS K 599.0 URINARY TRACT INFECTION 10/14/2007 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 [place] E 250.00 DIABETES MELLITUS TYPE 2 - UNCOMPLICATED, CONTROLLED 10/14/2007 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 [place] E 338.4 PAIN CHRONIC SYNDROME 10/14/2007 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 [place] E 599.0 URINARY TRACT INFECTION 10/14/2007 SOLO DO, JOSE LUIS K 250.00 DIABETES MELLITUS TYPE 2 - UNCOMPLICATED, CONTROLLED 10/14/2007 SOLO DO, JOSE LUIS K 338.4 PAIN CHRONIC SYNDROME 10/14/2007 SOLO DO, JOSE LUIS K 599.0 URINARY TRACT INFECTION 10/14/2007 SOLO DO, JOSE LUIS K 250.00 DIABETES MELLITUS TYPE 2 - UNCOMPLICATED, CONTROLLED 10/14/2007 SOLO DO, JOSE LUIS K 338.4 PAIN CHRONIC SYNDROME 10/14/2007 SOLO DO, JOSE LUIS K 599.0 URINARY TRACT INFECTION 10/14/2007 RADHALGEORGIA NARAYAN APRN E 250.00 DIABETES MELLITUS TYPE 2 - UNCOMPLICATED, CONTROLLED 10/14/2007 RADHALGEORGIA NARAYAN APRN E 338.4 PAIN CHRONIC SYNDROME 10/14/2007 HELLWIG [place] SINGH E 599.0 URINARY TRACT INFECTION 10/14/2007 SOLO DO, JOSE LUIS K 250.00 DIABETES MELLITUS TYPE 2 - UNCOMPLICATED, CONTROLLED 10/14/2007 SOLO DO, JOSE LUIS K 338.4 PAIN CHRONIC SYNDROME 10/14/2007 SOLO DO, JOSE LUIS K 599.0 URINARY TRACT INFECTION 11/28/2007 MARITZA NICOLE MD V72.31 Meat Manager Exam, Routine 11/28/2007 MARITZA NICOLE MD V72.31 Meat Manager Exam, Routine 11/28/2007 MARITZA NICOLE MD V72.31 Meat Manager Exam, Routine 11/28/2007 MANNY VALDIVIA APRN V72.31 Meat Manager Exam, Routine 11/28/2007 V72.31 Meat Manager Exam, Routine 11/28/2007 V72.31 Meat Manager Exam, Routine 11/28/2007 V72.31 Meat Manager Exam, Routine 11/28/2007 V72.31 Meat Manager Exam, Routine 11/28/2007 V72.31 Meat Manager Exam, Routine 11/28/2007 V72.31 Meat Manager Exam, Routine 11/28/2007 SOLO DO JOSE LUIS K V72.31 Meat Manager Exam, Routine 11/28/2007 SOLO DO JOSE LUIS K V72.31 Meat Manager Exam, Routine 11/28/2007 [place] GALVAN APRN E V72.31 Meat Manager Exam, Routine 11/28/2007 SOLO DO JOSE LUIS K V72.31 Meat Manager Exam, Routine 11/28/2007 [place] GALVAN APRN V72.31 Meat Manager Exam, Routine 11/28/2007 HELLGEORGIA NARAYAN APRN V72.31 Meat Manager Exam, Routine 11/28/2007 SOLO DOJOSE LUIS K V72.31 Meat Manager Exam, Routine 11/28/2007 SOLO PHILLIPA K V72.31 Meat Manager Exam, Routine 11/28/2007 RADHAGEORGIA NARAYAN APRN V72.31 Meat Manager Exam, Routine 11/28/2007 GER[place] PINEDAPHILLIPA K V72.31 Meat Manager Exam, Routine 11/28/2007 [place] PINEDAPHILLIPA K V72.31 Meat Manager Exam, Routine 11/28/2007 RADHAGEORGIA NARAYAN APRN V72.31 Meat Manager Exam, Routine 11/28/2007 SOLO JOSE LUIS PINEDA K V72.31 Meat Manager Exam, Routine 01/14/2008 MARITZA NICOLE MD 305.1 TOBACCO ABUSE 01/14/2008 MARITZA NICOLE MD V03.82 Pcv7 Pcv23, Streptococcus Pneumoniae [pneumococcus] 01/14/2008 MARITZA NICOLE MD 305.1 TOBACCO ABUSE 01/14/2008 MARITZA NICOLE MD V03.82 Pcv7 Pcv23, Streptococcus Pneumoniae [pneumococcus] 01/14/2008 MARITZA NICOLE MD 305.1 TOBACCO ABUSE 01/14/2008 MARITZA NICOLE MD V03.82 Pcv7 Pcv23, Streptococcus Pneumoniae [pneumococcus] 01/14/2008 MANNY VALDIVIA APRN 305.1 TOBACCO ABUSE 01/14/2008 MANNY VALDIVIA APRN V03.82 Pcv7 Pcv23, Streptococcus Pneumoniae [pneumococcus] 01/14/2008 305.1 TOBACCO ABUSE 01/14/2008 V03.82 Pcv7 Pcv23, Streptococcus Pneumoniae [pneumococcus] 01/14/2008 305.1 TOBACCO ABUSE 01/14/2008 V03.82 Pcv7 Pcv23, Streptococcus Pneumoniae [pneumococcus] 01/14/2008 305.1 TOBACCO ABUSE 01/14/2008 V03.82 Pcv7 Pcv23, Streptococcus Pneumoniae [pneumococcus] 01/14/2008 305.1 TOBACCO ABUSE 01/14/2008 V03.82 Pcv7 Pcv23, Streptococcus Pneumoniae [pneumococcus] 01/14/2008 305.1 TOBACCO ABUSE 01/14/2008 V03.82 Pcv7 Pcv23, Streptococcus Pneumoniae [pneumococcus] 01/14/2008 305.1 TOBACCO ABUSE 01/14/2008 V03.82 Pcv7 Pcv23, Streptococcus Pneumoniae [pneumococcus] 01/14/2008 SOLO DO, JOSE LUIS K 305.1 TOBACCO ABUSE 01/14/2008 SOLO DO, JOSE LUIS K V03.82 Pcv7 Pcv23, Streptococcus Pneumoniae [pneumococcus] 01/14/2008 SOLO DO, JOSE LUIS K 305.1 TOBACCO ABUSE 01/14/2008 SOLO DO, JOSE LUIS K V03.82 Pcv7 Pcv23, Streptococcus Pneumoniae [pneumococcus] 01/14/2008 [facility] [place] E 305.1 TOBACCO ABUSE 01/14/2008 [facility] ParsonsSIE E V03.82 Pcv7 Pcv23, Streptococcus Pneumoniae [pneumococcus] 01/14/2008 SOLO DO, JOSE LUIS K 305.1 TOBACCO ABUSE 01/14/2008 SOLO DO JOSE LUIS K V03.82 Pcv7 Pcv23, Streptococcus Pneumoniae [pneumococcus] 01/14/2008 [facility] SAMANTHA [place] E 305.1 TOBACCO ABUSE 01/14/2008 [facility] PHILLIP SINGHSIE E V03.82 Pcv7 Pcv23, Streptococcus Pneumoniae [pneumococcus] 01/14/2008 [facility] 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 ASSISTANT, [place] E 305.1 TOBACCO ABUSE 01/14/2008 [facility] 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 ASSISTANT, [place] E V03.82 Pcv7 Pcv23, Streptococcus Pneumoniae [pneumococcus] 01/14/2008 SOLO DO, JOSE LUIS K 305.1 TOBACCO ABUSE 01/14/2008 SOLO DO, JOSE LUIS K V03.82 Pcv7 Pcv23, Streptococcus Pneumoniae [pneumococcus] 01/14/2008 SOLO DO, JOSE LUIS K 305.1 TOBACCO ABUSE 01/14/2008 SOLO DO, JOSE LUIS K V03.82 Pcv7 Pcv23, Streptococcus Pneumoniae [pneumococcus] 01/14/2008 [facility] 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 ASSISTANT, [place] E 305.1 TOBACCO ABUSE 01/14/2008 [facility] 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 ASSISTANT, [place] E V03.82 Pcv7 Pcv23, Streptococcus Pneumoniae [pneumococcus] 01/14/2008 SOLO DO, JOSE LUIS K 305.1 TOBACCO ABUSE 01/14/2008 SOLO DO, JOSE LUIS K V03.82 Pcv7 Pcv23, Streptococcus Pneumoniae [pneumococcus] 01/14/2008 SOLO DO, JOSE LUIS K 305.1 TOBACCO ABUSE 01/14/2008 SOLO DO, JOSE LUIS K V03.82 Pcv7 Pcv23, Streptococcus Pneumoniae [pneumococcus] 01/14/2008 [place] GALVAN APRN E 305.1 TOBACCO ABUSE 01/14/2008 [place] GALVAN APRN E V03.82 Pcv7 Pcv23, Streptococcus Pneumoniae [pneumococcus] 01/14/2008 [place] PINEDA JOSE LUIS K 305.1 TOBACCO ABUSE 01/14/2008 [place] PINEDA JOSE LUIS K V03.82 Pcv7 Pcv23, Streptococcus Pneumoniae [pneumococcus] 04/15/2008 MARITZA NICOLE MD 357.9 POLYNEUROPATHY INFLAMMATORY 04/15/2008 MARITZA NICOLE MD 401.1 ESSENTIAL HYPERTENSION BENIGN 04/15/2008 MARITZA NICOLE MD 357.9 POLYNEUROPATHY INFLAMMATORY 04/15/2008 MARITZA NICOLE MD 401.1 ESSENTIAL HYPERTENSION BENIGN 04/15/2008 MARITZA NICOLE MD 357.9 POLYNEUROPATHY INFLAMMATORY 04/15/2008 MARITZA NICOLE MD 401.1 ESSENTIAL HYPERTENSION BENIGN 04/15/2008 MANNY VALDIVIA APRN 357.9 POLYNEUROPATHY INFLAMMATORY 04/15/2008 MANNY VALDIVIA APRN 401.1 ESSENTIAL HYPERTENSION BENIGN 04/15/2008 357.9 POLYNEUROPATHY INFLAMMATORY 04/15/2008 401.1 ESSENTIAL HYPERTENSION BENIGN 04/15/2008 357.9 POLYNEUROPATHY INFLAMMATORY 04/15/2008 401.1 ESSENTIAL HYPERTENSION BENIGN 04/15/2008 357.9 POLYNEUROPATHY INFLAMMATORY 04/15/2008 401.1 ESSENTIAL HYPERTENSION BENIGN 04/15/2008 357.9 POLYNEUROPATHY INFLAMMATORY 04/15/2008 401.1 ESSENTIAL HYPERTENSION BENIGN 04/15/2008 357.9 POLYNEUROPATHY INFLAMMATORY 04/15/2008 401.1 ESSENTIAL HYPERTENSION BENIGN 04/15/2008 357.9 POLYNEUROPATHY INFLAMMATORY 04/15/2008 401.1 ESSENTIAL HYPERTENSION BENIGN 04/15/2008 SOLO DO, JOSE LUIS K 357.9 POLYNEUROPATHY INFLAMMATORY 04/15/2008 SOLO DO, JOSE LUIS K 401.1 ESSENTIAL HYPERTENSION BENIGN 04/15/2008 SOLO DO, JOSE LUIS K 357.9 POLYNEUROPATHY INFLAMMATORY 04/15/2008 SOLO DO, JOSE LUIS K 401.1 ESSENTIAL HYPERTENSION BENIGN 04/15/2008 [place] GALVAN APRN E 357.9 POLYNEUROPATHY INFLAMMATORY 04/15/2008 [place] GALVAN APRN E 401.1 ESSENTIAL HYPERTENSION BENIGN 04/15/2008 SOLO DO, JOSE LUIS K 357.9 POLYNEUROPATHY INFLAMMATORY 04/15/2008 SOLO DO, JOSE LUIS K 401.1 ESSENTIAL HYPERTENSION BENIGN 04/15/2008 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, [place] E 357.9 POLYNEUROPATHY INFLAMMATORY 04/15/2008 HELWIG 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 ASSISTANT, [place] E 401.1 ESSENTIAL HYPERTENSION BENIGN 04/15/2008 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, [place] E 357.9 POLYNEUROPATHY INFLAMMATORY 04/15/2008 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, [place] E 401.1 ESSENTIAL HYPERTENSION BENIGN 04/15/2008 SOLO DO, JOSE LUIS K 357.9 POLYNEUROPATHY INFLAMMATORY 04/15/2008 SOLO DO, JOSE LUIS K 401.1 ESSENTIAL HYPERTENSION BENIGN 04/15/2008 SOLO DO, JOSE LUIS K 357.9 POLYNEUROPATHY INFLAMMATORY 04/15/2008 SOLO DO, JOSE LUIS K 401.1 ESSENTIAL HYPERTENSION BENIGN 04/15/2008 [facility] 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 ASSISTANT, [place] E 357.9 POLYNEUROPATHY INFLAMMATORY 04/15/2008 [facility] 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 ASSISTANT, [place] E 401.1 ESSENTIAL HYPERTENSION BENIGN 04/15/2008 SOLO DO, JOSE LUIS K 357.9 POLYNEUROPATHY INFLAMMATORY 04/15/2008 SOLO DO, JOSE LUIS K 401.1 ESSENTIAL HYPERTENSION BENIGN 04/15/2008 SOLO DO, JOSE LUIS K 357.9 POLYNEUROPATHY INFLAMMATORY 04/15/2008 SOLO DO, JOSE LUIS K 401.1 ESSENTIAL HYPERTENSION BENIGN 04/15/2008 [facility] 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 ASSISTANT, [place] E 357.9 POLYNEUROPATHY INFLAMMATORY 04/15/2008 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, [place] E 401.1 ESSENTIAL HYPERTENSION BENIGN 04/15/2008 SOLO DO, JOSE LUIS K 357.9 POLYNEUROPATHY INFLAMMATORY 04/15/2008 SOLO DO, JOSE LUIS K 401.1 ESSENTIAL HYPERTENSION BENIGN 10/18/2008 MARITZA NICOLE MD 528.9 Mouth Pain 10/18/2008 MARITZA NICOLE MD 780.60 Fever [as Symptom] 10/18/2008 MARITZA NICOLE MD 786.2 Cough 10/18/2008 MARITZA NICOLE MD 528.9 Mouth Pain 10/18/2008 MARITZA NICOLE MD 780.60 Fever [as Symptom] 10/18/2008 MARITZA NICOLE MD 786.2 Cough 10/18/2008 MARITZA NICOLE MD 528.9 Mouth Pain 10/18/2008 MARITZA NCIOLE MD 780.60 Fever [as Symptom] 10/18/2008 MARITZA NICOLE MD 786.2 Cough 10/18/2008 SKIP MANNY SINGH 528.9 Mouth Pain 10/18/2008 SKIP HERNANDEZMANNY Parsons 780.60 Fever [as Symptom] 10/18/2008 SKIP HERNANDEZMANNY Parsons Hemal 786.2 Cough 10/18/2008 528.9 Mouth Pain 10/18/2008 780.60 Fever [as Symptom] 10/18/2008 786.2 Cough 10/18/2008 528.9 Mouth Pain 10/18/2008 780.60 Fever [as Symptom] 10/18/2008 786.2 Cough 10/18/2008 528.9 Mouth Pain 10/18/2008 780.60 Fever [as Symptom] 10/18/2008 786.2 Cough 10/18/2008 528.9 Mouth Pain 10/18/2008 780.60 Fever [as Symptom] 10/18/2008 786.2 Cough 10/18/2008 528.9 Mouth Pain 10/18/2008 780.60 Fever [as Symptom] 10/18/2008 786.2 Cough 10/18/2008 528.9 Mouth Pain 10/18/2008 780.60 Fever [as Symptom] 10/18/2008 786.2 Cough 10/18/2008 SOLO DO, JOSE LUIS K 528.9 Mouth Pain 10/18/2008 SOLO DO, JOSE LUIS K 780.60 Fever [as Symptom] 10/18/2008 SOLO DO, JOSE LUIS K 786.2 Cough 10/18/2008 SOLO DO, JOSE LUIS K 528.9 Mouth Pain 10/18/2008 SOLO DO, JOSE LUIS K 780.60 Fever [as Symptom] 10/18/2008 SOLO DO, JOSE LUIS K 786.2 Cough 10/18/2008 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, [place] E 528.9 Mouth Pain 10/18/2008 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, [place] E 780.60 Fever [as Symptom] 10/18/2008 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, [place] E 786.2 Cough 10/18/2008 SOLO DO, JOSE LUIS K 528.9 Mouth Pain 10/18/2008 SOLO DO, JOSE LUIS K 780.60 Fever [as Symptom] 10/18/2008 SOLO DO, JOSE LUIS K 786.2 Cough 10/18/2008 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, [place] E 528.9 Mouth Pain 10/18/2008 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 [place] E 780.60 Fever [as Symptom] 10/18/2008 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, [place] E 786.2 Cough 10/18/2008 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, [place] E 528.9 Mouth Pain 10/18/2008 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, [place] E 780.60 Fever [as Symptom] 10/18/2008 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, [place] E 786.2 Cough 10/18/2008 SOLO DO, JOSE LUIS K 528.9 Mouth Pain 10/18/2008 SOLO DO, JOSE LUIS K 780.60 Fever [as Symptom] 10/18/2008 SOLO DO, JOSE LUIS K 786.2 Cough 10/18/2008 SOLO DO, JOSE LUIS K 528.9 Mouth Pain 10/18/2008 SOLO DO, JOSE LUIS K 780.60 Fever [as Symptom] 10/18/2008 SOLO DO, JOSE LUIS K 786.2 Cough 10/18/2008 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, [place] E 528.9 Mouth Pain 10/18/2008 [facility] 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 ASSISTANT, [place] E 780.60 Fever [as Symptom] 10/18/2008 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, [place] E 786.2 Cough 10/18/2008 SOLO DO, JOSE LUIS K 528.9 Mouth Pain 10/18/2008 SOLO DO, JOSE LUIS K 780.60 Fever [as Symptom] 10/18/2008 SOLO DO, JOSE LUIS K 786.2 Cough 10/18/2008 SOLO DO, JOSE LUIS K 528.9 Mouth Pain 10/18/2008 SOLO DO, JOSE LUIS K 780.60 Fever [as Symptom] 10/18/2008 SOLO DO, JOSE LUIS K 786.2 Cough 10/18/2008 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, [place] E 528.9 Mouth Pain 10/18/2008 [facility] 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 ASSISTANT, [place] E 780.60 Fever [as Symptom] 10/18/2008 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, [place] E 786.2 Cough 10/18/2008 SOLO DO, JOSE LUIS K 528.9 Mouth Pain 10/18/2008 SOLO DO, JOSE LUIS K 780.60 Fever [as Symptom] 10/18/2008 SOLO DO, JOSE LUIS K 786.2 Cough 10/29/2008 COREY REYES, MARITZA 276.51 Dehydration 10/29/2008 MARITZA NICOLE MD 787.01 Nausea With Vomiting 10/29/2008 MARITZA NICOLE MD 276.51 Dehydration 10/29/2008 MARITZA NICOLE MD 787.01 Nausea With Vomiting 10/29/2008 MARITZA NICOLE MD 276.51 Dehydration 10/29/2008 MARITZA NICOLE MD 787.01 Nausea With Vomiting 10/29/2008 MANNY VALDIVIA APRN 276.51 Dehydration 10/29/2008 MANNY VALDIVIA APRN T 787.01 Nausea With Vomiting 10/29/2008 276.51 Dehydration 10/29/2008 787.01 Nausea With Vomiting 10/29/2008 276.51 Dehydration 10/29/2008 787.01 Nausea With Vomiting 10/29/2008 276.51 Dehydration 10/29/2008 787.01 Nausea With Vomiting 10/29/2008 276.51 Dehydration 10/29/2008 787.01 Nausea With Vomiting 10/29/2008 276.51 Dehydration 10/29/2008 787.01 Nausea With Vomiting 10/29/2008 276.51 Dehydration 10/29/2008 787.01 Nausea With Vomiting 10/29/2008 SOLO DO, JOSE LUIS K 276.51 Dehydration 10/29/2008 SOLO DO, JOSE LUIS K 787.01 Nausea With Vomiting 10/29/2008 SOLO DO, JOSE LUIS K 276.51 Dehydration 10/29/2008 SOLO DO, JOSE LUIS K 787.01 Nausea With Vomiting 10/29/2008 RADHAHELENE SINGH [place] E 276.51 Dehydration 10/29/2008 RADHAHELENE SINGH [place] E 787.01 Nausea With Vomiting 10/29/2008 SOLO DO, JOSE LUIS K 276.51 Dehydration 10/29/2008 SOLO DO, JOSE LUIS K 787.01 Nausea With Vomiting 10/29/2008 COLE SINGH [place] E 276.51 Dehydration 10/29/2008 RADHAHELENE SINGH [place] E 787.01 Nausea With Vomiting 10/29/2008 COLE SINGH [place] E 276.51 Dehydration 10/29/2008 [facility] [place] E 787.01 Nausea With Vomiting 10/29/2008 SOLO DO, JOSE LUIS K 276.51 Dehydration 10/29/2008 SOLO DO, JOSE LUIS K 787.01 Nausea With Vomiting 10/29/2008 SOLO DO, JOSE LUIS K 276.51 Dehydration 10/29/2008 SOLO DO, JOSE LUIS K 787.01 Nausea With Vomiting 10/29/2008 HELHELENE 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 ASSISTANT, [place] E 276.51 Dehydration 10/29/2008 HELHLEENE 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 ASSISTANT, [place] E 787.01 Nausea With Vomiting 10/29/2008 SOLO DO, JOSE LUIS K 276.51 Dehydration 10/29/2008 SOLO DO, JOSE LUIS K 787.01 Nausea With Vomiting 10/29/2008 SOLO DO, JOSE LUIS K 276.51 Dehydration 10/29/2008 SOLO DO, JOSE LUIS K 787.01 Nausea With Vomiting 10/29/2008 HELHELENE 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 ASSISTANT [place] E 276.51 Dehydration 10/29/2008 [facility] 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 ASSISTANT, [place] E 787.01 Nausea With Vomiting 10/29/2008 SOLO DO, JOSE LUIS K 276.51 Dehydration 10/29/2008 SOLO DO, JOSE LUIS K 787.01 Nausea With Vomiting 02/01/2009 COREY REYES, MARITZA 250.40 DIABETIC NEPHROPATHY 02/01/2009 COREY REYES, MARITZA 724.5 BACKACHE 02/01/2009 MARITZA NICOLE MD 250.40 DIABETIC NEPHROPATHY 02/01/2009 MARITZA NICOLE MD 724.5 BACKACHE 02/01/2009 MARITZA NICOLE MD 250.40 DIABETIC NEPHROPATHY 02/01/2009 COREY REYES, MARITZA 724.5 BACKACHE 02/01/2009 MANNY VALDIVIA APRN 250.40 DIABETIC NEPHROPATHY 02/01/2009 MANNY VALDIVIA APRN 724.5 BACKACHE 02/01/2009 250.40 DIABETIC NEPHROPATHY 02/01/2009 724.5 BACKACHE 02/01/2009 250.40 DIABETIC NEPHROPATHY 02/01/2009 724.5 BACKACHE 02/01/2009 250.40 DIABETIC NEPHROPATHY 02/01/2009 724.5 BACKACHE 02/01/2009 250.40 DIABETIC NEPHROPATHY 02/01/2009 724.5 BACKACHE 02/01/2009 250.40 DIABETIC NEPHROPATHY 02/01/2009 724.5 BACKACHE 02/01/2009 250.40 DIABETIC NEPHROPATHY 02/01/2009 724.5 BACKACHE 02/01/2009 SOLO DO, JOSE LUIS K 250.40 DIABETIC NEPHROPATHY 02/01/2009 SOLO DO, JOSE LUIS K 724.5 BACKACHE 02/01/2009 SOLO DO, JOSE LUIS K 250.40 DIABETIC NEPHROPATHY 02/01/2009 SOLO DO, JOSE LUIS K 724.5 BACKACHE 02/01/2009 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, [place] E 250.40 DIABETIC NEPHROPATHY 02/01/2009 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, [place] E 724.5 BACKACHE 02/01/2009 SOLO DO, JOSE LUIS K 250.40 DIABETIC NEPHROPATHY 02/01/2009 SOLO DO, JOSE LUIS K 724.5 BACKACHE 02/01/2009 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, [place] E 250.40 DIABETIC NEPHROPATHY 02/01/2009 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, [place] E 724.5 BACKACHE 02/01/2009 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, [place] E 250.40 DIABETIC NEPHROPATHY 02/01/2009 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, [place] E 724.5 BACKACHE 02/01/2009 SOLO DO, JOSE LUIS K 250.40 DIABETIC NEPHROPATHY 02/01/2009 SOLO DO, JOSE LUIS K 724.5 BACKACHE 02/01/2009 SOLO DO, JOSE LUIS K 250.40 DIABETIC NEPHROPATHY 02/01/2009 SOLO DO, JOSE LUIS K 724.5 BACKACHE 02/01/2009 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, [place] E 250.40 DIABETIC NEPHROPATHY 02/01/2009 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, [place] E 724.5 BACKACHE 02/01/2009 SOLO DO, JOSE LUIS K 250.40 DIABETIC NEPHROPATHY 02/01/2009 SOLO DO, JOSE LUIS K 724.5 BACKACHE 02/01/2009 SOLO DO, JOSE LUIS K 250.40 DIABETIC NEPHROPATHY 02/01/2009 SOLO DO, JOSE LUIS K 724.5 BACKACHE 02/01/2009 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, [place] E 250.40 DIABETIC NEPHROPATHY 02/01/2009 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, [place] E 724.5 BACKACHE 02/01/2009 SOLO DO, JOSE LUIS K 250.40 DIABETIC NEPHROPATHY 02/01/2009 SOLO DO, JOSE LUIS K 724.5 BACKACHE 03/14/2009 COREY REYES, MARITZA 461.9 Sinusitis Acute 03/14/2009 COREY REYES, MARITZA 477.9 Allergic Rhinitis 03/14/2009 COREY REYES, MARITZA 461.9 Sinusitis Acute 03/14/2009 COREY REYES, MARITZA 477.9 Allergic Rhinitis 03/14/2009 COREY REYES, MARITZA 461.9 Sinusitis Acute 03/14/2009 MARITZA NICOLE MD 477.9 Allergic Rhinitis 03/14/2009 MANNY VALDIVIA APRN 461.9 Sinusitis Acute 03/14/2009 MANNY VALDIVIA APRN 477.9 Allergic Rhinitis 03/14/2009 461.9 Sinusitis Acute 03/14/2009 477.9 Allergic Rhinitis 03/14/2009 461.9 Sinusitis Acute 03/14/2009 477.9 Allergic Rhinitis 03/14/2009 461.9 Sinusitis Acute 03/14/2009 477.9 Allergic Rhinitis 03/14/2009 461.9 Sinusitis Acute 03/14/2009 477.9 Allergic Rhinitis 03/14/2009 461.9 Sinusitis Acute 03/14/2009 477.9 Allergic Rhinitis 03/14/2009 461.9 Sinusitis Acute 03/14/2009 477.9 Allergic Rhinitis 03/14/2009 SOLO DO, JOSE LUIS K 461.9 Sinusitis Acute 03/14/2009 SOLO DO, JOSE LUIS K 477.9 Allergic Rhinitis 03/14/2009 SOLO DO, JOSE LUIS K 461.9 Sinusitis Acute 03/14/2009 SOLO DO, JOSE LUIS K 477.9 Allergic Rhinitis 03/14/2009 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 [place] E 461.9 Sinusitis Acute 03/14/2009 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 [place] E 477.9 Allergic Rhinitis 03/14/2009 SOLO DO, JOSE LUIS K 461.9 Sinusitis Acute 03/14/2009 SOLO DO, JOSE LUIS K 477.9 Allergic Rhinitis 03/14/2009 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, [place] E 461.9 Sinusitis Acute 03/14/2009 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 [place] E 477.9 Allergic Rhinitis 03/14/2009 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 [place] E 461.9 Sinusitis Acute 03/14/2009 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 [place] E 477.9 Allergic Rhinitis 03/14/2009 SOLO DO, JOSE LUIS K 461.9 Sinusitis Acute 03/14/2009 SOLO DO, JOSE LUIS K 477.9 Allergic Rhinitis 03/14/2009 SOLO DO, JOSE LUIS K 461.9 Sinusitis Acute 03/14/2009 SOLO DO, JOSE LUIS K 477.9 Allergic Rhinitis 03/14/2009 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, [place] E 461.9 Sinusitis Acute 03/14/2009 HELWIG 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 ASSISTANT, [place] E 477.9 Allergic Rhinitis 03/14/2009 SOLO DO, JOSE LUIS K 461.9 Sinusitis Acute 03/14/2009 SOLO DO, JOSE LUIS K 477.9 Allergic Rhinitis 03/14/2009 SOLO DO, JOSE LUIS K 461.9 Sinusitis Acute 03/14/2009 SOLO DO, JOSE LUIS K 477.9 Allergic Rhinitis 03/14/2009 [facility] 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 ASSISTANT, [place] E 461.9 Sinusitis Acute 03/14/2009 HELWIG 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 ASSISTANT, [place] E 477.9 Allergic Rhinitis 03/14/2009 SOLO DO, JOSE LUIS K 461.9 Sinusitis Acute 03/14/2009 SOLO DO, JOSE LUIS K 477.9 Allergic Rhinitis 05/13/2009 MARITZA NICOLE MD 333.94 RESTLESS LEGS SYNDROME 05/13/2009 MARITZA NICOLE MD 724.2 lower back pain 05/13/2009 MARITZA NICOLE MD 333.94 RESTLESS LEGS SYNDROME 05/13/2009 MARITZA NICOLE MD 724.2 lower back pain 05/13/2009 MARITZA NICOLE MD 333.94 RESTLESS LEGS SYNDROME 05/13/2009 MARITZA NICOLE MD 724.2 lower back pain 05/13/2009 MANNY VALDIVIA APRN 333.94 RESTLESS LEGS SYNDROME 05/13/2009 MANNY VALDIVIA APRN 724.2 lower back pain 05/13/2009 333.94 RESTLESS LEGS SYNDROME 05/13/2009 724.2 lower back pain 05/13/2009 333.94 RESTLESS LEGS SYNDROME 05/13/2009 724.2 lower back pain 05/13/2009 333.94 RESTLESS LEGS SYNDROME 05/13/2009 724.2 lower back pain 05/13/2009 333.94 RESTLESS LEGS SYNDROME 05/13/2009 724.2 lower back pain 05/13/2009 333.94 RESTLESS LEGS SYNDROME 05/13/2009 724.2 lower back pain 05/13/2009 333.94 RESTLESS LEGS SYNDROME 05/13/2009 724.2 lower back pain 05/13/2009 SOLO DO JOSE LUIS K 333.94 RESTLESS LEGS SYNDROME 05/13/2009 SOLO DO, JOSE LUIS K 724.2 lower back pain 05/13/2009 SOLO DO, JOSE LUIS K 333.94 RESTLESS LEGS SYNDROME 05/13/2009 SOLO DO, JOSE LUIS K 724.2 lower back pain 05/13/2009 [facility] HERNANDEZN [place] E 333.94 RESTLESS LEGS SYNDROME 05/13/2009 [facility] 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 ASSISTANT, [place] E 724.2 lower back pain 05/13/2009 SOLO DO, JOSE LUIS K 333.94 RESTLESS LEGS SYNDROME 05/13/2009 SOLO DO, JOSE LUIS K 724.2 lower back pain 05/13/2009 [facility] SINGH, [place] E 333.94 RESTLESS LEGS SYNDROME 05/13/2009 [facility] 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 ASSISTANT, [place] E 724.2 lower back pain 05/13/2009 [facility] 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 ASSISTANT, [place] E 333.94 RESTLESS LEGS SYNDROME 05/13/2009 [facility] 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 ASSISTANT, [place] E 724.2 lower back pain 05/13/2009 SOLO DO, JOSE LUIS K 333.94 RESTLESS LEGS SYNDROME 05/13/2009 SOLO DO, JOSE LUIS K 724.2 lower back pain 05/13/2009 SOLO DO, JOSE LUIS K 333.94 RESTLESS LEGS SYNDROME 05/13/2009 SOLO DO, JOSE LUIS K 724.2 lower back pain 05/13/2009 [facility] SAMANTHA, [place] E 333.94 RESTLESS LEGS SYNDROME 05/13/2009 [facility] 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 ASSISTANT, [place] E 724.2 lower back pain 05/13/2009 SOLO DO, JOSE LUIS K 333.94 RESTLESS LEGS SYNDROME 05/13/2009 SOLO DO, JOSE LUIS K 724.2 lower back pain 05/13/2009 SOLO DO, JOSE LUIS K 333.94 RESTLESS LEGS SYNDROME 05/13/2009 SOLO DO, JOSE LUIS K 724.2 LOWER BACK PAIN 05/13/2009 [facility] 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 ASSISTANT, [place] E 333.94 RESTLESS LEGS SYNDROME 05/13/2009 [facility] SAMANTHA, [place] E 724.2 LOWER BACK PAIN 05/13/2009 SOLO DO, JOSE LUIS K 333.94 RESTLESS LEGS SYNDROME 05/13/2009 SOLO DO, JOSE LUIS K 724.2 LOWER BACK PAIN 08/23/2009 COREY REYES, MARITZA 535.50 Gastritis Unspec 08/23/2009 COREY REYES, MARITZA 535.50 Gastritis Unspec 08/23/2009 MARITZA NICOLE MD 535.50 Gastritis Unspec 08/23/2009 MANNY VALDIVIA APRN 535.50 Gastritis Unspec 08/23/2009 535.50 Gastritis Unspec 08/23/2009 535.50 Gastritis Unspec 08/23/2009 535.50 Gastritis Unspec 08/23/2009 535.50 Gastritis Unspec 08/23/2009 535.50 Gastritis Unspec 08/23/2009 535.50 Gastritis Unspec 08/23/2009 SOLO DO, JOSE LUIS K 535.50 Gastritis Unspec 08/23/2009 SOLO DO, JOSE LUIS K 535.50 Gastritis Unspec 08/23/2009 COLE SINGH [place] E 535.50 Gastritis Unspec 08/23/2009 SOLO DO, JOSE LUIS K 535.50 Gastritis Unspec 08/23/2009 PHILLIP GALVAN APRNSIE E 535.50 Gastritis Unspec 08/23/2009 COLE ISNGH [place] E 535.50 Gastritis Unspec 08/23/2009 SOLO DO, JOSE LUIS K 535.50 Gastritis Unspec 08/23/2009 SOLO DO, JOSE LUIS K 535.50 Gastritis Unspec 08/23/2009 COLE SINGH [place] E 535.50 Gastritis Unspec 08/23/2009 SOLO DO, JOSE LUIS K 535.50 Gastritis Unspec 08/23/2009 SOLO DO, JOSE LUIS K 535.50 Gastritis Unspec 08/23/2009 PHILLIP GALVAN APRNSIE E 535.50 Gastritis Unspec 08/23/2009 SOLO DO, JOSE LUIS K 535.50 Gastritis Unspec 09/07/2009 Ot 535.50 09/07/2009 Ot V45.86 11/05/2009 Ot 250.00 11/05/2009 Ot 280.9 11/05/2009 Ot 305.1 11/05/2009 Ot 401.9 11/05/2009 Ot 427.89 11/05/2009 Ot 535.50 11/05/2009 Ot V45.86 11/05/2009 Ot V58.69 11/08/2009 MARITZA NICOLE MD 280.9 IRON DEFICIENCY ANEMIA 11/08/2009 MARITZA NICOLE MD 280.9 IRON DEFICIENCY ANEMIA 11/08/2009 MARITZA NICOLE MD 280.9 IRON DEFICIENCY ANEMIA 11/08/2009 MANNY VALDIVIA APRN 280.9 IRON DEFICIENCY ANEMIA 11/08/2009 280.9 IRON DEFICIENCY ANEMIA 11/08/2009 280.9 IRON DEFICIENCY ANEMIA 11/08/2009 280.9 IRON DEFICIENCY ANEMIA 11/08/2009 280.9 IRON DEFICIENCY ANEMIA 11/08/2009 280.9 IRON DEFICIENCY ANEMIA 11/08/2009 280.9 IRON DEFICIENCY ANEMIA 11/08/2009 SOLO DO, JOSE LUIS K 280.9 IRON DEFICIENCY ANEMIA 11/08/2009 SOLO DO, JOSE LUIS K 280.9 IRON DEFICIENCY ANEMIA 11/08/2009 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, [place] E 280.9 IRON DEFICIENCY ANEMIA 11/08/2009 SOLO DO, JOSE LUIS K 280.9 IRON DEFICIENCY ANEMIA 11/08/2009 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, [place] E 280.9 IRON DEFICIENCY ANEMIA 11/08/2009 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, [place] E 280.9 IRON DEFICIENCY ANEMIA 11/08/2009 SOLO DO, JOSE LUIS K 280.9 IRON DEFICIENCY ANEMIA 11/08/2009 SOLO DO, JOSE LUIS K 280.9 IRON DEFICIENCY ANEMIA 11/08/2009 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, [place] E 280.9 IRON DEFICIENCY ANEMIA 11/08/2009 SOLO DO, JOSE LUIS K 280.9 IRON DEFICIENCY ANEMIA 11/08/2009 SOLO DO, JOSE LUIS K 280.9 IRON DEFICIENCY ANEMIA 11/08/2009 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, [place] E 280.9 IRON DEFICIENCY ANEMIA 11/08/2009 SOLO DO, JOSE LUIS K 280.9 IRON DEFICIENCY ANEMIA 11/22/2009 MARITZA NICOLE MD 285.9 Anemia Unspecified 11/22/2009 MARITZA NICOLE MD 780.52 Insomnia Unspecified 11/22/2009 MARITZA NICOLE MD 285.9 Anemia Unspecified 11/22/2009 MARITZA NICOLE MD 780.52 Insomnia Unspecified 11/22/2009 MARITZA NICOLE MD 285.9 Anemia Unspecified 11/22/2009 MARITZA NICOLE MD 780.52 Insomnia Unspecified 11/22/2009 MANNY VALDIVIA APRN 285.9 Anemia Unspecified 11/22/2009 MANNY VALDIVIA APRN 780.52 Insomnia Unspecified 11/22/2009 285.9 Anemia Unspecified 11/22/2009 780.52 Insomnia Unspecified 11/22/2009 285.9 Anemia Unspecified 11/22/2009 780.52 Insomnia Unspecified 11/22/2009 285.9 Anemia Unspecified 11/22/2009 780.52 Insomnia Unspecified 11/22/2009 285.9 Anemia Unspecified 11/22/2009 780.52 Insomnia Unspecified 11/22/2009 285.9 Anemia Unspecified 11/22/2009 780.52 Insomnia Unspecified 11/22/2009 285.9 Anemia Unspecified 11/22/2009 780.52 Insomnia Unspecified 11/22/2009 SOLO DO, JOSE LUIS K 285.9 Anemia Unspecified 11/22/2009 SOLO DO, JOSE LUIS K 780.52 Insomnia Unspecified 11/22/2009 SOLO DO, JOSE LUIS K 285.9 Anemia Unspecified 11/22/2009 SOLO DO, JOSE LUIS K 780.52 Insomnia Unspecified 11/22/2009 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, [place] E 285.9 Anemia Unspecified 11/22/2009 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, [place] E 780.52 Insomnia Unspecified 11/22/2009 SOLO DO, JOSE LUIS K 285.9 Anemia Unspecified 11/22/2009 SOLO DO, JOSE LUIS K 780.52 Insomnia Unspecified 11/22/2009 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, [place] E 285.9 Anemia Unspecified 11/22/2009 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, [place] E 780.52 Insomnia Unspecified 11/22/2009 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, [place] E 285.9 Anemia Unspecified 11/22/2009 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, [place] E 780.52 Insomnia Unspecified 11/22/2009 SOLO DO, JOSE LUIS K 285.9 Anemia Unspecified 11/22/2009 SOLO DO, JOSE LUIS K 780.52 Insomnia Unspecified 11/22/2009 SOLO DO, JOSE LUIS K 285.9 Anemia Unspecified 11/22/2009 SOLO DO, JOSE LUIS K 780.52 Insomnia Unspecified 11/22/2009 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, [place] E 285.9 Anemia Unspecified 11/22/2009 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, [place] E 780.52 Insomnia Unspecified 11/22/2009 SOLO DO, JOSE LUIS K 285.9 Anemia Unspecified 11/22/2009 SOLO DO, JOSE LUIS K 780.52 Insomnia Unspecified 11/22/2009 SOLO DO, JOSE LUIS K 285.9 Anemia Unspecified 11/22/2009 SOLO DO, JOSE LUIS K 780.52 Insomnia Unspecified 11/22/2009 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, [place] E 285.9 Anemia Unspecified 11/22/2009 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, [place] E 780.52 Insomnia Unspecified 11/22/2009 SOLO DO, JOSE LUIS K 285.9 Anemia Unspecified 11/22/2009 SOLO DO, JOSE LUIS K 780.52 Insomnia Unspecified 11/30/2009 Ot 285.9 11/30/2009 Ot 562.10 11/30/2009 Ot 569.89 11/30/2009 Ot 783.21 11/30/2009 Ot V45.86 03/09/2010 MARITZA NICOLE MD 724.3 Sciatica 03/09/2010 MARITZA NICOLE MD 724.3 Sciatica 03/09/2010 MARITZA NICOLE MD 724.3 Sciatica 03/09/2010 MANNY VALDIVIA APRN 724.3 Sciatica 03/09/2010 724.3 Sciatica 03/09/2010 724.3 Sciatica 03/09/2010 724.3 Sciatica 03/09/2010 724.3 Sciatica 03/09/2010 724.3 Sciatica 03/09/2010 724.3 Sciatica 03/09/2010 GERMANIA PINEDA JOSE LUIS K 724.3 Sciatica 03/09/2010 GERMANIA PINEDA JOSE LUIS K 724.3 Sciatica 03/09/2010 COLE SINGH [place] E 724.3 Sciatica 03/09/2010 SOLO DO, JOSE LUIS K 724.3 Sciatica 03/09/2010 PHILLIP GALVAN APRNSIE E 724.3 Sciatica 03/09/2010 COLE SINGH [place] E 724.3 Sciatica 03/09/2010 SOLO DO, JOSE LUIS K 724.3 Sciatica 03/09/2010 SOLO DO JOSE LUIS K 724.3 Sciatica 03/09/2010 PHILLIP GALVAN APRNSIE E 724.3 Sciatica 03/09/2010 SOLO DO, JOSE LUIS K 724.3 Sciatica 03/09/2010 SOLO DO, JOSE LUIS K 724.3 Sciatica 03/09/2010 PHILLIP GALVAN APRNSIE E 724.3 Sciatica 03/09/2010 SOLO DO, JOSE LUIS K 724.3 Sciatica 03/13/2010 Ot 280.9 08/17/2010 MARITZA NICOLE MD 692.9 CONTACT DERMATITIS AND OTHER ECZEMA UNSPECIFIED CAUSE 08/17/2010 MARITZA NICOLE MD 692.9 CONTACT DERMATITIS AND OTHER ECZEMA UNSPECIFIED CAUSE 08/17/2010 MARITZA NICOLE MD 692.9 CONTACT DERMATITIS AND OTHER ECZEMA UNSPECIFIED CAUSE 08/17/2010 MANNY VALDIVIA APRN 692.9 CONTACT DERMATITIS AND OTHER ECZEMA UNSPECIFIED CAUSE 08/17/2010 692.9 CONTACT DERMATITIS AND OTHER ECZEMA UNSPECIFIED CAUSE 08/17/2010 692.9 CONTACT DERMATITIS AND OTHER ECZEMA UNSPECIFIED CAUSE 08/17/2010 692.9 CONTACT DERMATITIS AND OTHER ECZEMA UNSPECIFIED CAUSE 08/17/2010 692.9 CONTACT DERMATITIS AND OTHER ECZEMA UNSPECIFIED CAUSE 08/17/2010 692.9 CONTACT DERMATITIS AND OTHER ECZEMA UNSPECIFIED CAUSE 08/17/2010 692.9 CONTACT DERMATITIS AND OTHER ECZEMA UNSPECIFIED CAUSE 08/17/2010 SOLO DO, JOSE LUIS K 692.9 CONTACT DERMATITIS AND OTHER ECZEMA UNSPECIFIED CAUSE 08/17/2010 SOLO DO, JOSE LUIS K 692.9 CONTACT DERMATITIS AND OTHER ECZEMA UNSPECIFIED CAUSE 08/17/2010 COLE SINGH [place] E 692.9 CONTACT DERMATITIS AND OTHER ECZEMA UNSPECIFIED CAUSE 08/17/2010 SOLO DO, JOSE LUIS K 692.9 CONTACT DERMATITIS AND OTHER ECZEMA UNSPECIFIED CAUSE 08/17/2010 COLE SINGH [place] E 692.9 CONTACT DERMATITIS AND OTHER ECZEMA UNSPECIFIED CAUSE 08/17/2010 COLE SINGH [place] E 692.9 CONTACT DERMATITIS AND OTHER ECZEMA UNSPECIFIED CAUSE 08/17/2010 SOLO DO, JOSE LUIS K 692.9 CONTACT DERMATITIS AND OTHER ECZEMA UNSPECIFIED CAUSE 08/17/2010 SOLO DO, JOSE LUIS K 692.9 CONTACT DERMATITIS AND OTHER ECZEMA UNSPECIFIED CAUSE 08/17/2010 COLE SINGH [place] E 692.9 CONTACT DERMATITIS AND OTHER ECZEMA UNSPECIFIED CAUSE 08/17/2010 SOLO DO, JOSE LUIS K 692.9 CONTACT DERMATITIS AND OTHER ECZEMA UNSPECIFIED CAUSE 08/17/2010 SOLO DO, JOSE LUIS K 692.9 CONTACT DERMATITIS AND OTHER ECZEMA UNSPECIFIED CAUSE 08/17/2010 COLE SINGH [place] E 692.9 CONTACT DERMATITIS AND OTHER ECZEMA UNSPECIFIED CAUSE 08/17/2010 SOLO DO, JOSE LUIS K 692.9 CONTACT DERMATITIS AND OTHER ECZEMA UNSPECIFIED CAUSE 06/05/2011 COREY REYES, MARITZA 266.2 VITAMIN B12 DEFICIENCY 06/05/2011 MARITZA NICOLE MD 357.2 POLYNEUROPATHY DIABETIC 06/05/2011 MARITZA NICOLE MD 266.2 VITAMIN B12 DEFICIENCY 06/05/2011 COREY REYES, MARITZA 357.2 POLYNEUROPATHY DIABETIC 06/05/2011 MARITZA NICOLE MD 266.2 VITAMIN B12 DEFICIENCY 06/05/2011 MARITZA NICOLE MD 357.2 POLYNEUROPATHY DIABETIC 06/05/2011 MANNY VALDIVIA APRN 266.2 VITAMIN B12 DEFICIENCY 06/05/2011 MANNY VLADIVIA APRN 357.2 POLYNEUROPATHY DIABETIC 06/05/2011 266.2 VITAMIN B12 DEFICIENCY 06/05/2011 357.2 POLYNEUROPATHY DIABETIC 06/05/2011 266.2 VITAMIN B12 DEFICIENCY 06/05/2011 357.2 POLYNEUROPATHY DIABETIC 06/05/2011 266.2 VITAMIN B12 DEFICIENCY 06/05/2011 357.2 POLYNEUROPATHY DIABETIC 06/05/2011 266.2 VITAMIN B12 DEFICIENCY 06/05/2011 357.2 POLYNEUROPATHY DIABETIC 06/05/2011 266.2 VITAMIN B12 DEFICIENCY 06/05/2011 357.2 POLYNEUROPATHY DIABETIC 06/05/2011 266.2 VITAMIN B12 DEFICIENCY 06/05/2011 357.2 POLYNEUROPATHY DIABETIC 06/05/2011 SOLO DO, JOSE LUIS K 266.2 VITAMIN B12 DEFICIENCY 06/05/2011 SOLO DO, JOSE LUIS K 357.2 POLYNEUROPATHY DIABETIC 06/05/2011 SOLO DO, JOSE LUIS K 266.2 VITAMIN B12 DEFICIENCY 06/05/2011 SOLO DO, JOSE LUIS K 357.2 POLYNEUROPATHY DIABETIC 06/05/2011 [place] GALVAN APRN E 266.2 VITAMIN B12 DEFICIENCY 06/05/2011 [place] GALVAN APRN E 357.2 POLYNEUROPATHY DIABETIC 06/05/2011 SOLO DO, JOSE LUIS K 266.2 VITAMIN B12 DEFICIENCY 06/05/2011 SOLO DO, JOSE LUIS K 357.2 POLYNEUROPATHY DIABETIC 06/05/2011 [place] GALVAN APRN E 266.2 VITAMIN B12 DEFICIENCY 06/05/2011 [place] GALVAN APRN E 357.2 POLYNEUROPATHY DIABETIC 06/05/2011 [place] GALVAN APRN E 266.2 VITAMIN B12 DEFICIENCY 06/05/2011 [place] GALVAN APRN E 357.2 POLYNEUROPATHY DIABETIC 06/05/2011 SOLO DO, JOSE LUIS K 266.2 VITAMIN B12 DEFICIENCY 06/05/2011 SOLO DO, JOSE LUIS K 357.2 POLYNEUROPATHY DIABETIC 06/05/2011 SOLO DO, JOSE LUIS K 266.2 VITAMIN B12 DEFICIENCY 06/05/2011 SOLO DO, JOSE LUIS K 357.2 POLYNEUROPATHY DIABETIC 06/05/2011 [facility] APRNSIE E 266.2 VITAMIN B12 DEFICIENCY 06/05/2011 [facility] PHILLIP SINGHSIE E 357.2 POLYNEUROPATHY DIABETIC 06/05/2011 SOLO DO, JOSE LUIS K 266.2 VITAMIN B12 DEFICIENCY 06/05/2011 SOLO DO, JOSE LUIS K 357.2 POLYNEUROPATHY DIABETIC 06/05/2011 SOLO DO, JOSE LUIS K 266.2 VITAMIN B12 DEFICIENCY 06/05/2011 SOLO DO, JOSE LIUS K 357.2 POLYNEUROPATHY DIABETIC 06/05/2011 [facility] PHILLIP SINGHSIE E 266.2 VITAMIN B12 DEFICIENCY 06/05/2011 [facility] PHILLIP SINGHSIE E 357.2 POLYNEUROPATHY DIABETIC 06/05/2011 SOLO DO, JOSE LUIS K 266.2 VITAMIN B12 DEFICIENCY 06/05/2011 SOLO DO, JOSE LUIS K 357.2 POLYNEUROPATHY DIABETIC 09/28/2011 COREY REYES, MARITZA 338.29 CHRONIC PAIN 09/28/2011 MARITZA NICOLE MD V76.12 Mammogram Screening 09/28/2011 COREY REYES, MARITZA 338.29 CHRONIC PAIN 09/28/2011 MARITZA NICOLE MD V76.12 Mammogram Screening 09/28/2011 COREY REYES, MARITZA 338.29 CHRONIC PAIN 09/28/2011 MARITZA NICOLE MD V76.12 Mammogram Screening 09/28/2011 MANNY VALDIVIA APRN 338.29 CHRONIC PAIN 09/28/2011 MANNY VALDIVIA APRN V76.12 Mammogram Screening 09/28/2011 338.29 CHRONIC PAIN 09/28/2011 V76.12 Mammogram Screening 09/28/2011 338.29 CHRONIC PAIN 09/28/2011 V76.12 Mammogram Screening 09/28/2011 338.29 CHRONIC PAIN 09/28/2011 V76.12 Mammogram Screening 09/28/2011 338.29 CHRONIC PAIN 09/28/2011 V76.12 Mammogram Screening 09/28/2011 338.29 CHRONIC PAIN 09/28/2011 V76.12 Mammogram Screening 09/28/2011 338.29 CHRONIC PAIN 09/28/2011 V76.12 Mammogram Screening 09/28/2011 SOLO DO, JOSE LUIS K 338.29 CHRONIC PAIN 09/28/2011 SOLO DO, JOSE LUIS K V76.12 Mammogram Screening 09/28/2011 SOLO DO, JOSE LUIS K 338.29 CHRONIC PAIN 09/28/2011 SOLO DO, JOSE LUIS K V76.12 Mammogram Screening 09/28/2011 [place] GALVAN APRN E 338.29 CHRONIC PAIN 09/28/2011 GERHARD GALVAN APRNE E V76.12 Mammogram Screening 09/28/2011 SOLO DO, JOSE LUIS K 338.29 CHRONIC PAIN 09/28/2011 SOLO DO, JOSE LUIS K V76.12 Mammogram Screening 09/28/2011 [facility] APRNE E 338.29 CHRONIC PAIN 09/28/2011 [place] GALVAN APRN E V76.12 Mammogram Screening 09/28/2011 [facility] APRN E 338.29 CHRONIC PAIN 09/28/2011 RAD[facility]ARD NARAYAN APRNE E V76.12 Mammogram Screening 09/28/2011 SOLO DO, JOSE LUIS K 338.29 CHRONIC PAIN 09/28/2011 SOLO DO, JOSE LUIS K V76.12 Mammogram Screening 09/28/2011 SOLO DO, JOSE LUIS K 338.29 CHRONIC PAIN 09/28/2011 SOLO DO, JOSE LUIS K V76.12 Mammogram Screening 09/28/2011 [facility] APRNE E 338.29 CHRONIC PAIN 09/28/2011 PHILLIP GALVAN APRNSIE E V76.12 Mammogram Screening 09/28/2011 SOLO DO, JOSE LUIS K 338.29 CHRONIC PAIN 09/28/2011 SOLO DO, JOSE LUIS K V76.12 Mammogram Screening 09/28/2011 SOLO DO, JOSE LUIS K 338.29 CHRONIC PAIN 09/28/2011 SOLO DO, JOSE LUIS K V76.12 MAMMOGRAM SCREENING 09/28/2011 [facility] APRNSIE E 338.29 CHRONIC PAIN 09/28/2011 [facility] APRNSIE E V76.12 MAMMOGRAM SCREENING 09/28/2011 SOLO DO, JOSE LUIS K 338.29 CHRONIC PAIN 09/28/2011 SOLO DO, JOSE LUIS K V76.12 MAMMOGRAM SCREENING 12/25/2011 COREY REYES, MARITZA 706.2 SEBACEOUS CYST 12/25/2011 MARITZA NICOLE MD 706.2 SEBACEOUS CYST 12/25/2011 MARITZA NICOLE MD 706.2 SEBACEOUS CYST 12/25/2011 MANNY VALDIVIA APRN 706.2 SEBACEOUS CYST 12/25/2011 706.2 SEBACEOUS CYST 12/25/2011 706.2 SEBACEOUS CYST 12/25/2011 706.2 SEBACEOUS CYST 12/25/2011 706.2 SEBACEOUS CYST 12/25/2011 706.2 SEBACEOUS CYST 12/25/2011 706.2 SEBACEOUS CYST 12/25/2011 SOLO DO, JOSE LUIS K 706.2 SEBACEOUS CYST 12/25/2011 SOLO DO, JOSE LUIS K 706.2 SEBACEOUS CYST 12/25/2011 [place] GALVAN APRN E 706.2 SEBACEOUS CYST 12/25/2011 SOLO DO, JOSE LUIS K 706.2 SEBACEOUS CYST 12/25/2011 GERHARD GALVAN APRNE E 706.2 SEBACEOUS CYST 12/25/2011 GERHARD GALVAN APRNE E 706.2 SEBACEOUS CYST 12/25/2011 SOLO DO, JOSE LUIS K 706.2 SEBACEOUS CYST 12/25/2011 SOLO DO, JOSE LUIS K 706.2 SEBACEOUS CYST 12/25/2011 GERHARD GALVAN APRNE E 706.2 SEBACEOUS CYST 12/25/2011 SOLO DO, JOSE LUIS K 706.2 SEBACEOUS CYST 12/25/2011 SOLO DO, JOSE LUIS K 706.2 SEBACEOUS CYST 12/25/2011 [place] GALVAN APRN E 706.2 SEBACEOUS CYST 12/25/2011 SOLO DO, JOSE LUIS K 706.2 SEBACEOUS CYST 04/01/2012 MARITZA NICOLE MD 724.4 LUMBAR RADICULOPATHY 04/01/2012 MANNY VALDIVIA APRN 724.4 LUMBAR RADICULOPATHY 04/01/2012 724.4 LUMBAR RADICULOPATHY 04/01/2012 724.4 LUMBAR RADICULOPATHY 04/01/2012 724.4 LUMBAR RADICULOPATHY 04/01/2012 724.4 LUMBAR RADICULOPATHY 04/01/2012 724.4 LUMBAR RADICULOPATHY 04/01/2012 724.4 LUMBAR RADICULOPATHY 04/01/2012 SOLO DO, JOSE LUIS K 724.4 LUMBAR RADICULOPATHY 04/01/2012 SOLO DO, JOSE LUIS K 724.4 LUMBAR RADICULOPATHY 04/01/2012 HELKRISTOPHER SINGH [place] E 724.4 LUMBAR RADICULOPATHY 04/01/2012 SOLO DO, JOSE LUIS K 724.4 LUMBAR RADICULOPATHY 04/01/2012 HELKRISTOPHER SINGH [place] E 724.4 LUMBAR RADICULOPATHY 04/01/2012 HELKRISTOPHER SINGH [place] E 724.4 LUMBAR RADICULOPATHY 04/01/2012 SOLO DO, JOSE LUIS K 724.4 LUMBAR RADICULOPATHY 04/01/2012 SOLO DO, JOSE LUIS K 724.4 LUMBAR RADICULOPATHY 04/01/2012 HELKRISTOPHER SINGH [place] E 724.4 LUMBAR RADICULOPATHY 04/01/2012 SOLO DO, JOSE LUIS K 724.4 LUMBAR RADICULOPATHY 04/01/2012 SOLO DO, JOSE LUIS K 724.4 LUMBAR RADICULOPATHY 04/01/2012 HELKRISTOPHER SINGH [place] E 724.4 LUMBAR RADICULOPATHY 04/01/2012 SOLO DO, JOSE LUIS K 724.4 LUMBAR RADICULOPATHY 06/24/2012 796.2 Blood Pressure Isolated Elevated 06/24/2012 796.2 Blood Pressure Isolated Elevated 06/24/2012 796.2 Blood Pressure Isolated Elevated 06/24/2012 796.2 Blood Pressure Isolated Elevated 06/24/2012 796.2 Blood Pressure Isolated Elevated 06/24/2012 SOLO DO, JOSE LUIS K 796.2 Blood Pressure Isolated Elevated 06/24/2012 SOLO DO, JOSE LUIS K 796.2 Blood Pressure Isolated Elevated 06/24/2012 PHILLIP GALVAN APRNSIE E 796.2 Blood Pressure Isolated Elevated 06/24/2012 SOLO DO, JOSE LUIS K 796.2 Blood Pressure Isolated Elevated 06/24/2012 PHILLIP GALVAN APRNSIE E 796.2 Blood Pressure Isolated Elevated 06/24/2012 PHILLIP GALVAN APRNSIE E 796.2 Blood Pressure Isolated Elevated 06/24/2012 SOLO DO, JOSE LUIS K 796.2 Blood Pressure Isolated Elevated 06/24/2012 SOLO DO, JOSE LUIS K 796.2 Blood Pressure Isolated Elevated 06/24/2012 PHILLIP GALVAN APRNSIE E 796.2 Blood Pressure Isolated Elevated 06/24/2012 SOLO DO, JOSE LUIS K 796.2 Blood Pressure Isolated Elevated 06/24/2012 SOLO DO, JOSE LUIS K 796.2 BLOOD PRESSURE ISOLATED ELEVATED 06/24/2012 GEORGIA GALVAN APRN E 796.2 BLOOD PRESSURE ISOLATED ELEVATED 06/24/2012 SOLO DO, JOSE LUIS K 796.2 BLOOD PRESSURE ISOLATED ELEVATED 07/04/2012 COREY REYES, MARITZA Rasmussen Ot 724.4 LUMBOSACRAL NEURITIS NOS 07/04/2012 COREY REYES, MARITZA Rasmussen Ot V57.1 PHYSICAL THERAPY NEC 02/19/2013 GEORGIA GALVAN APRN E V78.0 ANEMIA SCREENING 02/19/2013 SOLO DO, JOSE LUIS K V78.0 ANEMIA SCREENING 02/19/2013 GE[place]IA GALVAN APRN E V78.0 ANEMIA SCREENING 02/19/2013 GE[place]IA GALVAN APRN E V78.0 ANEMIA SCREENING 02/19/2013 SOLO DO, JOSE LUIS K V78.0 ANEMIA SCREENING 02/19/2013 SOLO DO, JOSE LUIS K V78.0 ANEMIA SCREENING 02/19/2013 GEORGIA GALVAN APRN E V78.0 ANEMIA SCREENING 02/19/2013 SOLO DO, JOSE LUIS K V78.0 ANEMIA SCREENING 02/19/2013 SOLO DO, JOSE LUIS K V78.0 ANEMIA SCREENING 02/19/2013 GERHARD GALVAN APRNE E V78.0 ANEMIA SCREENING 02/19/2013 SOLO DO, JOSE LUIS K V78.0 ANEMIA SCREENING 03/16/2013 SOLO DO, JOSE LUIS K 214.8 LIPOMA OF OTHER SPECIFIED SITES 03/16/2013 SOLO DO, JOSE LUIS K 729.5 PAIN IN LIMB 03/16/2013 GEORGIA GALVAN APRN 214.8 LIPOMA OF OTHER SPECIFIED SITES 03/16/2013 GEORGIA GALVAN APRN 729.5 PAIN IN LIMB 03/16/2013 GEORGIA GALVAN APRN E 214.8 LIPOMA OF OTHER SPECIFIED SITES 03/16/2013 GEORGIA GALVAN APRN 729.5 PAIN IN LIMB 03/16/2013 SOLO DO, JOSE LUIS K 214.8 LIPOMA OF OTHER SPECIFIED SITES 03/16/2013 SOLO DO, JOSE LUIS K 729.5 PAIN IN LIMB 03/16/2013 SOLO DO, JOSE LUIS K 214.8 LIPOMA OF OTHER SPECIFIED SITES 03/16/2013 SOLO DO, JOSE LUIS K 729.5 PAIN IN LIMB 03/16/2013 CO[place]ING[place] E 214.8 LIPOMA OF OTHER SPECIFIED SITES 03/16/2013 GEORGIA GALVAN APRN E 729.5 PAIN IN LIMB 03/16/2013 SOLO DO, JOSE LUIS K 214.8 LIPOMA OF OTHER SPECIFIED SITES 03/16/2013 SOLO DO, JOSE LUIS K 729.5 PAIN IN LIMB 03/16/2013 SOLO DO, JOSE LUIS K 214.8 LIPOMA OF OTHER SPECIFIED SITES 03/16/2013 SOLO DO, JOSE LUIS K 729.5 PAIN IN LIMB 03/16/2013 GERHARD GALVAN APRNE E 214.8 LIPOMA OF OTHER SPECIFIED SITES 03/16/2013 GEORGIA GALVAN APRN E 729.5 PAIN IN LIMB 03/16/2013 SOLO DO, JOSE LUIS K 214.8 LIPOMA OF OTHER SPECIFIED SITES 03/16/2013 SOLO DO, JOSE LUIS K 729.5 PAIN IN LIMB 05/22/2013 AWA REYES, JOSE Rasmussen Ot V45.4 ARTHRODESIS STATUS 05/22/2013 AWA REYES, JOSE Rasmussen Ot V57.1 PHYSICAL THERAPY NEC 06/18/2013 GEORGIA GALVAN APRN E 250.02 DIABETES MELLITUS TYPE 2 - UNCOMPLICATED, UNCONTROLLED 06/18/2013 SOLO DO, JOSE LUIS K 250.02 DIABETES MELLITUS TYPE 2 - UNCOMPLICATED, UNCONTROLLED 06/18/2013 SOLO DO, JOSE LUIS K 250.02 DIABETES MELLITUS TYPE 2 - UNCOMPLICATED, UNCONTROLLED 06/18/2013 GEORGIA GALVAN APRN E 250.02 DIABETES MELLITUS TYPE 2 - UNCOMPLICATED, UNCONTROLLED 06/18/2013 SOLO DO, JOSE LUIS K 250.02 DIABETES MELLITUS TYPE 2 - UNCOMPLICATED, UNCONTROLLED 06/18/2013 SOLO DO, JOSE LUIS K 250.02 DIABETES MELLITUS TYPE 2 - UNCOMPLICATED, UNCONTROLLED 06/18/2013 GERHARD GALVAN APRNE E 250.02 DIABETES MELLITUS TYPE 2 - UNCOMPLICATED, UNCONTROLLED 06/18/2013 GERMANIA PINEDAJOSE LUIS 250.02 DIABETES MELLITUS TYPE 2 - UNCOMPLICATED, UNCONTROLLED 07/11/2013 ANURADHA BUTLER DO Ot 338.29 OTHER CHRONIC PAIN 07/11/2013 ANURADHA BUTLER DO Ot 599.0 URIN TRACT INFECTION NOS 07/11/2013 ANURADHA BUTLER DO Ot 780.4 DIZZINESS AND GIDDINESS 05/07/2014 GEORGIA GALVAN APRN E 781.2 ABNORMALITY OF GAIT 05/07/2014 JOSE LUIS SOLO DO 781.2 ABNORMALITY OF GAIT 05/28/2014 GEORGIA GALVAN APRN E 682.6 CELLULITIS AND ABSCESS OF LEG EXCEPT FOOT 05/28/2014 JOSE LUIS SOLO DO 682.6 CELLULITIS AND ABSCESS OF LEG EXCEPT FOOT 06/14/2014 JOSE LUIS SOLO DO 729.81 SWELLING OF LIMB 06/16/2014 Ot 255.9 06/16/2014 Ot 783.21 06/16/2014 Ot 783.21 06/16/2014 Ot 787.20 06/16/2014 Ot 250.00 06/16/2014 Ot 272.4 06/16/2014 Ot 280.9 06/16/2014 Ot 305.1 06/16/2014 Ot 401.9 06/16/2014 Ot 535.50 06/16/2014 Ot V16.52 06/16/2014 Ot V45.77 06/16/2014 Ot V45.86 06/16/2014 Ot V58.69 06/16/2014 Ot 250.00 06/16/2014 Ot 280.9 06/16/2014 Ot 535.50 06/16/2014 Ot V45.77 06/16/2014 Ot V45.86 06/16/2014 Ot V58.69 06/16/2014 Ot 250.00 06/16/2014 Ot 280.9 06/16/2014 Ot V45.77 06/16/2014 Ot V45.86 06/16/2014 Ot V58.69 06/16/2014 Ot 780.79 06/16/2014 Ot V12.3 06/16/2014 Ot V58.69 06/16/2014 Ot 724.02 06/16/2014 Ot 781.2 08/02/2014 Ot 255.9 08/02/2014 Ot 783.21 08/02/2014 Ot 783.21 08/02/2014 Ot 787.20 08/02/2014 Ot 250.00 08/02/2014 Ot 272.4 08/02/2014 Ot 280.9 08/02/2014 Ot 305.1 08/02/2014 Ot 401.9 08/02/2014 Ot 535.50 08/02/2014 Ot V16.52 08/02/2014 Ot V45.77 08/02/2014 Ot V45.86 08/02/2014 Ot V58.69 08/02/2014 Ot 250.00 08/02/2014 Ot 280.9 08/02/2014 Ot 535.50 08/02/2014 Ot V45.77 08/02/2014 Ot V45.86 08/02/2014 Ot V58.69 08/02/2014 Ot 250.00 08/02/2014 Ot 280.9 08/02/2014 Ot V45.77 08/02/2014 Ot V45.86 08/02/2014 Ot V58.69 08/02/2014 Ot 780.79 08/02/2014 Ot V12.3 08/02/2014 Ot V58.69 08/02/2014 Ot 724.02 08/02/2014 Ot 781.2 08/02/2014 GEORGIA GALVAN APRN Ot 729.81 10/30/2015 ANURADHA BUTLER DO Ot N39.0 URINARY TRACT INFECTION, SITE NOT SPECIF 10/30/2015 ANURADHA BUTLER DO Ot R30.0 DYSURIA 10/30/2015 Ot 250.00 DIAB MARY WO COMPL, TYPE II OR UNSPEC TY 10/30/2015 Ot 280.9 IRON DEFIC ANEMIA NOS 10/30/2015 Ot V45.77 ACQRD ABSENCE OF GENITAL ORGANS 10/30/2015 Ot V45.86 BARIATRIC SURGERY STATUS 10/30/2015 Ot V58.69 OTH MED,LT, CURRENT USE 10/30/2015 Ot 780.79 OTH MALAISE FATIGUE 10/30/2015 Ot V12.3 HX-BLOOD DISEASES 10/30/2015 Ot V58.69 OTH MED,LT, CURRENT USE 10/30/2015 Ot 724.02 SPINAL STENOSIS, LUMBAR REG, W/OUT NEURO 10/30/2015 Ot 781.2 ABNORMALITY OF GAIT 10/30/2015 GEORGIA GALVAN APRN Ot 729.81 SWELLING OF LIMB 05/16/2017 Ot 724.02 SPINAL STENOSIS, LUMBAR REG, W/OUT NEURO 05/16/2017 Ot 781.2 ABNORMALITY OF GAIT 05/16/2017 GEORGIA GALVAN APRN Ot 729.81 SWELLING OF LIMB Procedures Code Description Performed By Performed On GANGLION CYST-ASP/INJ 12/25/2011 General S Nestor Jake 12/25/2011 16943 A1C (IN-HOUSE) 12/25/2011 71306 URINE DRUG SCREEN (IN-HOUSE ) 12/25/2011 72475 A1C (IN-HOUSE) 04/01/2012 10421 URINE DRUG SCREEN (IN-HOUSE ) 04/01/2012 11852 MRI SPINE (LUMBAR) W/O CONTRAST 04/01/2012 39479 THERAPUTIC INJ SQ/IM 05/16/2012 J1885 TORADOL INJ 05/16/2012 J2930 SOLUMEDROL INJ 05/16/2012 Physical Physical Therapy, [facility] 05/29/2012 99318 ROUTINE VENIPUNCTURE 09/02/2012 24150 MICRO ALBUMIN-IN HOUSE 09/02/2012 00028 A1C (IN-HOUSE) 09/02/2012 52921 GLUCOSE FINGER STICK 09/02/2012 70257 CMP 09/02/2012 55514 LIPID PANEL 09/02/2012 09040 MICROALBUMIN 09/02/2012 42180 CBC 09/02/2012 84548 A1C (IN-HOUSE) 12/31/2012 54025 ROUTINE VENIPUNCTURE 02/19/2013 14446 HEMOGLOBIN (IN-HOUSE) 02/19/2013 ANEMIAANA ANEMIA ANALYZER 02/19/2013 IRGROUP IRON GROUP (Iron,TIBC, Ferritin) 02/19/2013 11345 IRON SERUM 02/19/2013 18351 IRON BNDNG CAP 02/19/2013 49635 FERRITIN 02/19/2013 [id number] IMMATURE PLATELET FRACTION (RESULT ONLY) 02/20/2013 71983 CBC 02/20/2013 98709 RETICULOCYTE COUNT 02/20/2013 1675883 HEMATOLOGY OTHER REPORT 02/20/2013 50639 XRAY TIBULA/FIBULA RIGHT 03/18/2013 67687 A1C (IN-HOUSE) 06/18/2013 67987 HEMOGLOBIN (IN-HOUSE) 06/18/2013 15979 MICRO ALBUMIN-IN HOUSE 09/17/2013 35535 A1C (IN-HOUSE) 09/17/2013 21899 A1C (IN-HOUSE) 12/10/2013 69411 ROUTINE VENIPUNCTURE 03/15/2014 60608 A1C (IN-HOUSE) 03/15/2014 86209 LIPID PANEL 03/15/2014 06792 CBC 03/15/2014 [id number] GFR CALC (RESULT ONLY) 03/15/2014 15706 CMP 03/15/2014 08916 TSH 03/15/2014 52993 A1C (IN-HOUSE) 06/14/2014 17648 US VENOUS DOPPLER (DVT EVAL ) 06/14/2014 Ophthalmo Nicolas Mohan 06/14/2014 Results Test Result Range Complete urinalysis with reflex to culture - 10/30/15 18:15 Urine color determination YELLOW NRG Urine clarity determination CLEAR NRG Urine pH measurement by test strip 6 5-9 Specific gravity of urine by test strip 1.020 1.016- 1.022 Urine protein assay by test strip, semi-quantitative 4+ NEGATIVE Urine glucose detection by automated test strip NEGATIVE NEGATIVE Erythrocytes detection in urine sediment by light microscopy 5+ NEGATIVE Urine ketones detection by automated test strip NEGATIVE NEGATIVE Urine nitrite detection by test strip NEGATIVE NEGATIVE Urine total bilirubin detection by test strip NEGATIVE NEGATIVE Urine urobilinogen measurement by automated test strip (mass/volume) NORMAL NORMAL Urine leukocyte esterase detection by dipstick 3+ NEGATIVE Automated urine sediment erythrocyte count by microscopy (number/high power field) > [HPF] NRG Automated urine sediment leukocyte count by microscopy (number/high power field ) TNTC NRG Bacteria detection in urine sediment by light microscopy LARGE NRG Crystals detection in urine sediment by light microscopy NONE NRG Casts detection in urine sediment by light microscopy NONE NRG Mucus detection in urine sediment by light microscopy NEGATIVE NRG Complete urinalysis with reflex to culture YES NRG Bacterial urine culture - 10/30/15 18:15 Bacterial urine culture [id number] NRG COLONY COUNT >100,000/ML NRG FTX;REPORTABLE SENSITIVITY REPORTED 11/01/15 7:35 NRG Bacterial susceptibility panel - 10/30/15 18:15 Gentamicin susceptibility test by minimum inhibitory concentration < = NRG Trimethoprim/sulfamethoxazole susceptibility test by minimum inhibitoryconcentration <= NRG Tobramycin susceptibility test by minimum inhibitory concentration < = NRG Cefazolin susceptibility test by minimum inhibitory concentration > = NRG Piperacillin/tazobactam susceptibility test by minimum inhibitory concentration <= NRG Ciprofloxacin susceptibility test by minimum inhibitory concentration <= NRG Meropenem susceptibility test by minimum inhibitory concentration < = NRG Nitrofurantoin susceptibility test by minimum inhibitory concentration 64 NRG Aztreonam susceptibility test by minimum inhibitory concentration < = NRG TSH - 12/31/16 08:35 TSH 1.84 mIU/L 0.40-4.50 Capillary blood glucose measurement by glucometer (mass/volume) - 05/16/17 12: 36 Capillary blood glucose measurement by glucometer (mass/volume) 35 mg/dL 70-110 Complete blood count (CBC) with automated white blood cell (WBC) differential - 05/16/17 12:37 Blood leukocytes automated count (number/volume) 9.8 10*3/uL 4.3-11.0 Blood erythrocytes automated count (number/volume) 4.54 10*6/uL 4.35-5.85 Venous blood hemoglobin measurement (mass/volume) 12.8 g/dL 11.5-16.0 Blood hematocrit (volume fraction) 39 % 35-52 Automated erythrocyte mean corpuscular volume 86 [foz_us] 80-99 Automated erythrocyte mean corpuscular hemoglobin (mass per erythrocyte) 28 pg 25-34 Automated erythrocyte mean corpuscular hemoglobin concentration measurement ( mass/volume) 33 g/dL 32-36 Automated erythrocyte distribution width ratio 14.8 % 10.0-14.5 Automated blood platelet count (count/volume) 284 10*3/uL 130-400 Automated blood platelet mean volume measurement 9.6 [foz_us] 7.4-10.4 Automated blood neutrophils/100 leukocytes 73 % 42-75 Automated blood lymphocytes/100 leukocytes 20 % 12-44 Blood monocytes/100 leukocytes 6 % 0-12 Automated blood eosinophils/100 leukocytes 2 % 0-10 Automated blood basophils/100 leukocytes 0 % 0-10 Blood neutrophils automated count (number/volume) 7.2 10*3 1.8-7.8 Blood lymphocytes automated count (number/volume) 1.9 10*3 1.0-4.0 Blood monocytes automated count (number/volume) 0.6 10*3 0.0-1.0 Automated eosinophil count 0.2 10*3/uL 0.0-0.3 Automated blood basophil count (count/volume) 0.0 10*3/uL 0.0-0.1 Comprehensive metabolic panel - 05/16/17 12:37 Serum or plasma sodium measurement (moles/volume) 139 mmol/L 135-145 Serum or plasma potassium measurement (moles/volume) 4.0 mmol/L 3.6-5.0 Serum or plasma chloride measurement (moles/volume) 103 mmol/L 98-107 Carbon dioxide 29 mmol/L 21-32 Serum or plasma anion gap determination (moles/volume) 7 mmol/L 5-14 Serum or plasma urea nitrogen measurement (mass/volume) 14 mg/dL 7-18 Serum or plasma creatinine measurement (mass/volume) 0.81 mg/dL 0.60-1.30 Serum or plasma urea nitrogen/creatinine mass ratio 17 NRG Serum or plasma creatinine measurement with calculation of estimated glomerular filtration rate > NRG Serum or plasma glucose measurement (mass/volume) 29 mg/dL 70-105 Serum or plasma calcium measurement (mass/volume) 10.1 mg/dL 8.5-10.1 Serum or plasma total bilirubin measurement (mass/volume) 0.3 mg/dL 0.1-1.0 Serum or plasma alkaline phosphatase measurement (enzymatic activity/volume) 57 U/L 40-136 Serum or plasma aspartate aminotransferase measurement (enzymatic activity/ volume) 55 U/L 5-34 Serum or plasma alanine aminotransferase measurement (enzymatic activity/volume ) 52 U/L 0-55 Serum or plasma protein measurement (mass/volume) 7.3 g/dL 6.4-8.2 Serum or plasma albumin measurement (mass/volume) 4.3 g/dL 3.2-4.5 Magnesium - 05/16/17 12:37 Magnesium 1.6 mg/dL 1.8-2.4 Capillary blood glucose measurement by glucometer (mass/volume) - 05/16/17 13: 41 Capillary blood glucose measurement by glucometer (mass/volume) 95 mg/dL 70-110 Complete urinalysis with reflex to culture - 05/16/17 14:08 Urine color determination YELLOW NRG Urine clarity determination SLIGHTLY CLOUDY NRG Urine pH measurement by test strip 5 5-9 Specific gravity of urine by test strip 1.020 1.016- 1.022 Urine protein assay by test strip, semi-quantitative 1+ NEGATIVE Urine glucose detection by automated test strip 1+ NEGATIVE Erythrocytes detection in urine sediment by light microscopy 3+ NEGATIVE Urine ketones detection by automated test strip NEGATIVE NEGATIVE Urine nitrite detection by test strip POSITIVE NEGATIVE Urine total bilirubin detection by test strip NEGATIVE NEGATIVE Urine urobilinogen measurement by automated test strip (mass/volume) NORMAL NORMAL Urine leukocyte esterase detection by dipstick 3+ NEGATIVE Automated urine sediment erythrocyte count by microscopy (number/high power field) NONE NRG Automated urine sediment leukocyte count by microscopy (number/high power field ) > [HPF] NRG Bacteria detection in urine sediment by light microscopy FEW NRG Squamous epithelial cells detection in urine sediment by light microscopy 5-10 NRG Crystals detection in urine sediment by light microscopy NONE NRG Casts detection in urine sediment by light microscopy NONE NRG Mucus detection in urine sediment by light microscopy NEGATIVE NRG Complete urinalysis with reflex to culture YES NRG Urine drug screening test - 05/16/17 14:08 Urine phencyclidine detection by screening method NEGATIVE NEGATIVE Urine benzodiazepines detection by screening method NEGATIVE NEGATIVE Urine cocaine detection NEGATIVE NEGATIVE Urine amphetamines detection by screening method NEGATIVE NEGATIVE Urine methamphetamine detection by screening method NEGATIVE NEGATIVE Urine cannabinoids detection by screening method NEGATIVE NEGATIVE Urine opiates detection by screening method NEGATIVE NEGATIVE Urine barbiturates detection NEGATIVE NEGATIVE Screening urine tricyclic antidepressants detection POSITIVE NEGATIVE Urine methadone detection by screening method NEGATIVE NEGATIVE Urine oxycodone detection NEGATIVE NEGATIVE Urine propoxyphene detection NEGATIVE NEGATIVE Bacterial urine culture - 05/16/17 14:08 Bacterial urine culture [id number] NRG COLONY COUNT 10,000/ML - 100,000/ML NRG FTX;REPORTABLE SENSITIVITY NOT USUALLY PERFORMED FOR NRG FREE TEXT ENTRY 2 THIS ORGANISM. NR Bacterial susceptibility panel - 05/16/17 14:08 Gentamicin susceptibility test by minimum inhibitory concentration < = NRG Trimethoprim/sulfamethoxazole susceptibility test by minimum inhibitoryconcentration S NRG Ampicillin susceptibility test by minimum inhibitory concentration < = NRG Tobramycin susceptibility test by minimum inhibitory concentration < = NRG Cefazolin susceptibility test by minimum inhibitory concentration < = NRG Ceftriaxone susceptibility test by minimum inhibitory concentration <= NRG Ampicillin/sulbactam susceptibility test by minimum inhibitory concentration <= NRG Piperacillin/tazobactam susceptibility test by minimum inhibitory concentration S NRG Ciprofloxacin susceptibility test by minimum inhibitory concentration <= NRG Meropenem susceptibility test by minimum inhibitory concentration < = NRG Nitrofurantoin susceptibility test by minimum inhibitory concentration <= NRG Aztreonam susceptibility test by minimum inhibitory concentration < = NRG Extended spectrum beta lactamase (ESBL) producing bacteria susceptibility test by minimum inhibitory concentration - NRG Encounters ACCT No. Visit Date/Time Discharge Status Pt. Type Provider Facility Loc./Unit Complaint [id number] 06/14/2014 09:33:00 06/14/2014 23:59:59 CLS Outpatient JOSE LUIS SOLO DO Lorna [id number] 05/28/2014 11:33:00 05/28/2014 23:59:59 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 Parsons [id number] 03/15/2014 08:06:00 03/15/2014 23:59:59 CLS Outpatient GERMANIA PINEDAJOSE LUIS [id number] 02/10/2014 15:44:00 02/10/2014 23:59:59 CLS Outpatient GERMANIA PINEDAJOSE LUIS [id number] 12/10/2013 09:37:00 12/10/2013 23:59:59 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 Parsons [id number] 09/17/2013 09:00:00 09/17/2013 23:59:59 CLS Outpatient GERMANIA PINEDA JOSE LUIS K [id number] 07/24/2013 10:33:00 07/24/2013 23:59:59 CLS Outpatient GERMANIA PINEDA JOSE ULIS K [id number] 06/18/2013 08:16:00 06/18/2013 23:59:59 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 ASSIST[facility]GE[facility] Parsons [id number] 03/16/2013 12:10:00 03/16/2013 23:59:59 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 ASSIST[facility]GE[facility]IA Parsons [id number] 03/16/2013 08:44:00 03/16/2013 23:59:59 CLS Outpatient GERMANIA PINEDA JOSE LUIS K [id number] 02/19/2013 10:15:00 02/19/2013 23:59:59 [facility]LS 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 ASS[facility]GE[facility] Parsons [id number] 02/04/2013 14:09:00 02/04/2013 23:59:59 CLS Outpatient GERMANIA PINEDAJOSE LUIS [id number] 12/31/2012 08:36:00 12/31/2012 23:59:59 CLS Outpatient JOSE LUIS SOLO DO [id number] 05/29/2012 15:48:00 05/29/2012 23:59:59 CLS Outpatient [id number] 05/16/2012 15:27:00 05/16/2012 23:59:59 CLS Outpatient MANNY VALDIVIA APRN [id number] 04/01/2012 14:23:00 04/01/2012 23:59:59 [place] [id number] 12/25/2011 14:23:00 12/25/2011 23:59:59 CLS Outpatient MARITZA NICOLE MD [id number] 12/25/2011 14:23:00 12/25/2011 23:59:59 CLS Outpatient MARITZA NICOLE MD [id number] 09/30/2012 15:14:00 Document Registration [id number] 09/05/2012 09:36:00 Document Registration [id number] 09/02/2012 09:00:00 Document Registration [id number] 08/02/2012 00:00:00 Document Registration [id number] 06/24/2012 14:54:00 Document Registration [id number] 06/17/2014 05:26:16 ACT Document Registration [id number] 05/20/2017 10:20:00 05/20/2017 23:59:59 CLS Outpatient CATRACHITA MOLINA APRN [facility] [id number] 12/31/2016 08:00:00 Document Registration [id number] 05/16/2017 12:33:00 05/16/2017 15:05:00 DIS Emergency RICK SAMPSON APRN [facility] ER POSS STROKE [id number] 10/30/2015 18:28:00 10/30/2015 19:42:00 DIS Emergency ANURADHA BUTLER DO [facility] ER PAIN URINATING [id number] 08/18/2014 15:57:00 08/18/2014 23:59:59 CLS Preadmit JOSE BILLINGS MD [facility] REHAB [id number] 06/16/2014 13:27:00 06/16/2014 23:59:59 CLS Outpatient GEORGIA GALVAN APRN [facility] RAD REDNESS,SWELLING [id number] 07/11/2013 12:09:00 07/11/2013 14:49:00 DIS Emergency LUKE ANURADHA PINEDA [facility] ER DIZZINESS L LEG PAIN [id number] 05/08/2013 10:45:00 05/22/2013 11:54:00 DIS Outpatient AWA REYES, JOSE Rasmussen [facility] REHAB S/P LUMBAR FUSION [id number] 07/02/2012 12:15:00 07/04/2012 12:22:00 DIS Outpatient COREY REYES, MARITZA Rasmussen [facility] REHAB L LEG RADICULOPATHY ;LUMBAR RADICULOPATHY [id number] 06/16/2014 13:32:00 Document Registration [id number] 05/14/2014 12:44:00 Document Registration [id number] 04/03/2012 13:04:00 Document Registration [id number] 09/04/2011 15:01:00 Document Registration [id number] 12/26/2010 13:39:00 Document Registration [id number] 01/31/2010 14:34:00 Document Registration [id number] 12/06/2009 14:41:00 Document Registration [id number] 11/30/2009 07:25:00 Document Registration [id number] 11/18/2009 10:09:00 Document Registration [id number] 18:35:00 Document Registration [id number] 09/08/2009 07:33:00 Document Registration [id number] 09/07/2009 07:33:00 Document Registration [id number] 08/31/2009 08:48:00 Document Registration
[2017-06-03 09:27] LABS: BASOPHILS % (AUTO) 0 % (0-10); EOSINOPHILS # (AUTO) 0.1 10^3/uL (0.0-0.3); EOSINOPHILS % (AUTO) 1 % (0-10); HEMATOCRIT 42 % (35-52); HEMOGLOBIN 13.9 G/DL (11.5-16.0); LYMPHOCYTES # (AUTO) 1.4 X 10^3 (1.0-4.0); LYMPHOCYTES % (AUTO) 14 % (12-44); MEAN CORPUSCULAR HEMOGLOBIN 28 PG (25-34); MEAN CORPUSCULAR HGB CONC 33 G/DL (32-36); MEAN CORPUSCULAR VOLUME 85 FL (80-99); MEAN PLATELET VOLUME 9.4 FL (7.4-10.4); MONOCYTES # (AUTO) 0.4 X 10^3 (0.0-1.0); MONOCYTES % (AUTO) 4 % (0-12); NEUTROPHILS # (AUTO) 8.5 X 10^3 (1.8-7.8); NEUTROPHILS % (AUTO) 82 % (42-75); PLATELET COUNT 310 10^3/uL (130-400); RED BLOOD COUNT 4.93 10^6/uL (4.35-5.85); RED CELL DISTRIBUTION WIDTH 14.9 % (10.0-14.5); WHITE BLOOD COUNT 10.5 10^3/uL (4.3-11.0)
--- NOTE | 2017-06-03 09:39 | ED General ---
General Chief Complaint: Glucose Problems Stated Complaint: BS ISSUES Source of Information: Patient History of Present Illness Date Seen by Provider: Jun 03, 2017 Time Seen by Provider: 09:15 Initial Comments PT ARRIVES VIA POV FROM HOME-- DROVE HER HERE PT STATES THAT WOKE HER UP AROUND 0830 AND SHE WASN'T ACTING RIGHT-- THOUGHT HER BLOOD SUGAR WAS LOW, BUT RAN OUT OF TEST STRIPS YESTERDAY MORNING, DID NOT EAT BREAKFAST, JUST CAME STRAIGHT HERE PT STATES SHE DOES NOT REMEMBER HIM WAKING HER UP, BUT IS FINE NOW AND HAS NO COMPLAINTS OF ANY KIND. PT STATES BLOOD SUGAR WAS 62 YESTERDAY MORNING--WAS LAST TIME SHE CHECKED IT, BEFORE SHE RAN OUT OF TEST STRIPS PT STATES SHE HAD BEEN HAVING PROBLEMS WITH BLOOD SUGAR BEING "REALLY HIGH" ALL THE TIME, SO 3-4 MONTHS AGO, HER DOSE OF LEVEMIR WAS INCREASED FROM 68 TO 72 UNITS TWICE A DAY, AND HER GLYBURIDE DOSE WAS INCREASED FROM 1 PILL TWICE A DAY TO 2 PILLS TWICE A DAY. THEN PT STARTED HAVING LOW BLOOD SUGARS IN THE MORNINGS, SO A WEEK AGO, HER GLYBURIDE EVENING DOSE WAS DECREASED FROM 2 PILLS BACK DOWN TO 1 PILL. PT WAS ALSO DX WITH UTI LAST WEEK, AND WAS GIVEN RX FOR BACTRIM X 7 DAYS, WHICH SHE HAS FINISHED. UTI SYMPTOMS HAVE RESOLVED NO FEVER NO COUGH/URI SYMPTOMS NO ABDOMINAL PAIN OR NAUSEA/VOMITING/DIARRHEA PT STATES SHE WAS FINE ALL DAY YESTERDAY AND ATE NORMALLY YESTERDAY ( WAS EASTER ) REPORTS THAT THIS OCCURS EVERY DAY OR EVERY OTHER DAY ONLY CHECKS BLOOD SUGAR IN THE MORNINGS, MOST OF THE TIME. HAS AP[facility] THIS [facility] Allergies and Home Medications Allergies Coded Allergies: No Known Drug Allergies (Unverified , 11/05/09) Home Medications Ferrous Sulfate 325 Mg Tablet, 325 MG PO BID, (Reported) Gabapentin 300 Mg Cap, 300 MG PO TID, (Reported) Losartan Potassium 25 Mg Tablet, 1 EACH PO DAILY, (Reported) Lovastatin 40 Mg Tablet, 1 EACH PO DAILY WITH SUPPER, (Reported) Meclizine Hcl 25 Mg Tab, 1-2 TAB PO Q 4-6 HOURS PRN for DIZZINESS Prescribed by: ANURADHA BUTLER on 07/11/13 1444 Metformin Hcl 1,000 Mg Tablet, 1 EACH PO BID WITH MEALS, (Reported) Nitrofurantoin Monohyd/M-Cryst 100 Mg Capsule, 100 MG PO BID Prescribed by: ANURADHA UBTLER on 10/30/15 193 Nitrofurantoin/Nitrofuran Mac 100 Mg Capsule, 1 EACH PO BID FOR INFECTION Prescribed by: ANURADHA BUTLER on 07/11/13 144 Ondansetron Hcl 4 Mg Tab, 4 MG SL Q4H FOR NAUSEA AND VOMITING Prescribed by: ANURADHA BUTLER on 07/11/13 144 Phenazopyridine HCl 200 Mg Tablet, 1 TAB PO TID Prescribed by: ANURADHA BUTLER on 10/30/151931 Scopolamine Hcl 1 Patch .72 H Patch.td72, 1 EA TD Q3D Prescribed by: ANURADHA BUTLER on 07/11/13 144 Sulfamethoxazole/Trimethoprim 1 Each Tablet, 1 EACH PO BID Prescribed by: RICK SAMPSON on 05/16/17 1454 Sulfamethoxazole/Trimethoprim 1 Each Tablet, 1 EACH PO BID Prescribed by: ANURADHA BUTLER on 06/03/17 1011 Trazodone Hcl 150 Mg Tablet, 100 MG PO HS, (Reported) Patient Home Medication List Home Medication List Reviewed: Yes Constitutional: no symptoms reported, No chills, No diaphoresis, No dizziness, No fever EENTM: no symptoms reported Respiratory: no symptoms reported Cardiovascular: no symptoms reported Gastrointestinal: no symptoms reported Genitourinary: see HPI Musculoskeletal: no symptoms reported Skin: no symptoms reported Psychiatric/Neurological: See HPI Hematologic/Lymphatic: No Symptoms Reported Immunological/Allergic: no symptoms reported Past Xdrngwy-Jvzkta-Yfjtty Hx Patient Social History Alcohol Use: Denies Use Recreational Drug Use: No Smoking Status: Never a Smoker 2nd Hand Smoke Exposure: No Recent Foreign Travel: No Contact w/Someone Who Travel: No Recent Hopitalizations: No Surgeries History of Surgeries: Yes (GASTRIC BYPASS, BACK SX X 2) Surgeries: Abdominal, Orthopedic Respiratory History of Respiratory Disorde: No Cardiovascular History of Cardiac Disorders: Yes Cardiac Disorders: High Cholesterol, Hypertension Neurological History of Neurological Disord: Yes Neurological Disorders: Neuropathy Reproductive System Hx Reproductive Disorders: No [employer]IAN History: Menopausal Genitourinary History of Genitourinary Disor: Yes Genitourinary Disorders: Bladder Infection, Renal Failure Gastrointestinal History of Gastrointestinal Di: No Musculoskeletal History of Musculoskeletal Dis: Yes (RESTLESS LEG SYNDROME) Musculoskeletal Disorders: Chronic Back Pain Endocrine History of Endocrine Disorders: Yes Endocrine Disorders: Diabetes, Insulin dep, Diabetes, Non-Insulin dep HEENT History of HEENT Disorders: Yes (GLASSES) Cancer History of Cancer: No Psychosocial History of Psychiatric Problem: Yes Behavioral Health Disorders: Sleep Difficulties, Anxiety, Depression Integumentary History of Skin or Integumenta: No Blood Transfusions History of Blood Disorders: Yes (ANEMIA) Physical Exam Vital Signs Vital Signs - First Documented 06/03/17 09:08 Temp 96.4 Pulse 82 Resp 16 B/P (MAP) 166/94 (118) Pulse Ox 96 O2 Delivery Room Air Capillary Refill : General Appearance: No Apparent Distress, WD/WN HEENT: Other (EDENTULOUS) Neck: Normal Inspection Respiratory: Normal Breath Sounds, No Accessory Muscle Use, No Respiratory Distress Cardiovascular: Regular Rate, Rhythm, No Edema, No JVD, No Murmur, Normal Peripheral Pulses Gastrointestinal: Non Tender, Soft Back: No CVA Tenderness Extremity: Normal Inspection Neurologic/Psychiatric: Alert, Oriented x3, No Motor/Sensory Deficits, Normal Mood/Affect, 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 Norm as Tested Skin: Normal Color, Warm/Dry, Other (EXTENSIVE, THICK SCALING OF SCALP- APPEARANCE OF SIGNFICANT PSORIASIS TO SCALP) Progress/Results/Core Measures Suspected Sepsis SIRS Temperature: Pulse: Respiratory Rate: Laboratory Tests 06/03/17 09:15: White Blood Count 10.5 Blood Pressure / Mean: Laboratory Tests 06/03/17 09:15: Creatinine 0.75, Platelet Count 310, Total Bilirubin 0.5 Results/Orders Lab Results Laboratory Tests Test 06/03/17 09:15 06/03/17 09:30 Range/Units White Blood Count 10.5 4.3-11.0 10^3/uL Red Blood Count 4.93 4.35-5.85 10^6/uL Hemoglobin 13.9 11.5-16.0 G/DL Hematocrit 42 35-52 % Mean Corpuscular Volume 85 80-99 FL Mean Corpuscular Hemoglobin 28 25-34 PG Mean Corpuscular Hemoglobin Concent 33 32-36 G/DL Red Cell Distribution Width 14.9 H 10.0-14.5 % Platelet Count 310 130-400 10^3/uL Mean Platelet Volume 9.4 7.4-10.4 FL Neutrophils (%) (Auto) 82 H 42-75 % Lymphocytes (%) (Auto) 14 12-44 % Monocytes (%) (Auto) 4 0-12 % Eosinophils (%) (Auto) 1 0-10 % Basophils (%) (Auto) 0 0-10 % Neutrophils # (Auto) 8.5 H 1.8-7.8 X 10^3 Lymphocytes # (Auto) 1.4 1.0-4.0 X 10^3 Monocytes # (Auto) 0.4 0.0-1.0 X 10^3 Eosinophils # (Auto) 0.1 0.0-0.3 10^3/uL Basophils # (Auto) 0.0 0.0-0.1 10^3/uL Sodium Level 137 135-145 MMOL/L Potassium Level 3.9 3.6-5.0 MMOL/L Chloride Level 102 98-107 MMOL/L Carbon Dioxide Level 27 21-32 MMOL/L Anion Gap 8 5-14 MMOL/L Blood Urea Nitrogen 8 7-18 MG/DL Creatinine 0.75 0.60-1.30 MG/DL Estimat Glomerular Filtration Rate > 60 BUN/Creatinine Ratio 11 Glucose Level 63 L 70-105 MG/DL Glucometer 60 *L 70-110 MG/DL Calcium Level 10.2 H 8.5-10.1 MG/DL Total Bilirubin 0.5 0.1-1.0 MG/DL Aspartate Amino Transf (AST/SGOT) 48 H 5-34 U/L Alanine Aminotransferase (ALT/SGPT) 55 0-55 U/L Alkaline Phosphatase 62 40-136 U/L Total Protein 8.2 6.4-8.2 GM/DL Albumin 4.9 H 3.2-4.5 GM/DL Urine Color YELLOW Urine Clarity CLEAR Urine pH 5 5-9 Urine Specific [place] 1.015 L 1.016-1.022 Urine Protein NEGATIVE NEGATIVE Urine Glucose (UA) NEGATIVE NEGATIVE Urine Ketones NEGATIVE NEGATIVE Urine Nitrite NEGATIVE NEGATIVE Urine Bilirubin NEGATIVE NEGATIVE Urine Urobilinogen NORMAL NORMAL MG/DL Urine Leukocyte Esterase 2+ H NEGATIVE Urine RBC (Auto) 1+ H NEGATIVE Urine RBC 2-5 H /HPF Urine WBC 2-5 /HPF Urine Squamous Epithelial Cells 2-5 /HPF Urine Crystals NONE /LPF Urine Bacteria NEGATIVE /HPF Urine Casts NONE /LPF Urine Mucus NEGATIVE /LPF Urine Culture Indicated NO My Orders Orders - ANURADHA BUTLER DO Accucheck Stat ONCE (06/03/17 09:11) Saline Lock/Iv-Start (06/03/17 09:16) Cbc With Automated Diff (06/03/17 09:16) Comprehensive Metabolic Panel (06/03/17 09:16) Ua Culture If Indicated (06/03/17 09:16) General/Regular (06/03/17 Breakfast) Accucheck Stat ONCE (06/03/17 10:11) Vital Signs/I&O Vital Sign - Last 12Hours 06/03/17 09:08 Temp 96.4 Pulse 82 Resp 16 B/P (MAP) 166/94 (118) Pulse Ox 96 O2 Delivery Room Air Capillary Refill : Progress Note : Progress Note ACCUCHECK 60 ON ARRIVAL TO ER--PT IS ASYMPTOMATIC GIVEN BREAKFAST MEAL TRAY REPEAT ACCUCHECK 86 PRIOR TO DISMISSAL PT HAD NO SYMPTOMS OF ANY KIND DURING ER STAY Departure Impression Impression: Primary Impression: Hypoglycemia associated with diabetes Additional Impression: RESOLVING UTI Disposition: HOME, SELF-CARE Condition: Improved Departure-Patient Inst. Referrals: [facility] (PCP/Family) Primary Care Physician Patient Instructions: Diabetes Type 2 (DC), Low Blood Sugar in People With Diabetes, Urinary Tract Infection, Adult (DC) Add. Discharge Instructions: HOLD YOUR EVENING DOSE OF GLYBURIDE, CONTINUE YOUR CURRENT DOSE OF LEVEMIR CHECK YOUR BLOOD SUGAR AT LEAST 3 TIMES A DAY, AND BEFORE YOU GO TO BED AND KEEP DIARY FOLLOW UP WITH YOUR DR THIS WEEK FOR FURTHER CARE, SCHEDULED. RETURN TO ER IF SYMPTOMS WORSEN All discharge instructions reviewed with patient and/or family. Voiced understanding. Scripts Sulfamethoxazole/Trimethoprim (Bactrim Ds Tablet) 1 Each Tablet 1 EACH PO BID, #10 TAB Prov: ANURADHA BUTLER DO 06/03/17 ANURADHA BUTLER DO Jun 03, 2017 09:39
[2017-06-03 09:40] LABS: BILIRUBIN,URINE NEGATIVE (NEGATIVE); CLARITY,URINE CLEAR; COLOR,URINE YELLOW; GLUCOSE, URINE (UA) NEGATIVE (NEGATIVE); KETONES,URINE NEGATIVE (NEGATIVE); LEUKOCYTE ESTERASE ,URINE 2+ (NEGATIVE); NITRITE,URINE NEGATIVE (NEGATIVE); PH,URINE 5 (5-9); PROTEIN,URINE NEGATIVE (NEGATIVE); UROBILINOGEN,URINE NORMAL (NORMAL)
[2017-06-03 09:45] LABS: ALANINE AMINOTRANSFERASE 55 U/L (0-55); ALBUMIN 4.9 GM/DL (3.2-4.5); ALKALINE PHOSPHATASE 62 U/L (40-136); BILIRUBIN,TOTAL 0.5 MG/DL (0.1-1.0); BUN/CREATININE RATIO 11; CALCIUM 10.2 MG/DL (8.5-10.1); CARBON DIOXIDE 27 MMOL/L (21-32); CHLORIDE 102 MMOL/L (98-107); CREATININE SERUM 0.75 MG/DL (0.60-1.30); GFR ESTIMATED > 60; GLUCOSE 63 MG/DL (70-105); POTASSIUM 3.9 MMOL/L (3.6-5.0); SODIUM 137 MMOL/L (135-145); TOTAL PROTEIN 8.2 GM/DL (6.4-8.2)
[2017-06-03 10:06] LABS: BACTERIA,URINE NEGATIVE /HPF
[2017-06-03] MEDS ORDERED: SULF1TAB35 PO (10:11)
[2017-06-03 10:26] VITALS: BP 152/90
== END 2017-06-03 10:25 | disposition home or self-care (01) ==
LOC: EDUNIT# 09:05 → ER 09:07
DX: E11.649 Type 2 diabetes mellitus with hypoglycemia without coma (principal); N39.0 Urinary tract infection, site not specified; I10 Essential (primary) hypertension; E78.00 Pure hypercholesterolemia, unspecified; E11.40 Type 2 diabetes mellitus with diabetic neuropathy, unspecified; G25.81 Restless legs syndrome; F41.9 Anxiety disorder, unspecified; F32.9 Major depressive disorder, single episode, unspecified; Z87.448 Personal history of other diseases of urinary system; Z79.84 Long term (current) use of oral hypoglycemic drugs; Z98.84 Bariatric surgery status
CPT/HCPCS: 36415; 80053; 81000; 82962; 85025

== ENCOUNTER → 2017-09-18 | Outpatient (CLI) | payer MEDICARE ==
[~2017-09-18] MED LIST changes: +AMIT100T2 PO; +HYDR-756 PO; +HYDR25TA4 PO; +INSU100I29 SQ; +LOSA50TA36 PO; +LOVA20TA2 PO; +METF10002 PO; +PRAM0.128 PO
== END ==
LOC: PREOP 05:59
PROVIDERS: ATTEND Specialist
DX: Z01.818 Encounter for other preprocedural examination (principal); H25.11 Age-related nuclear cataract, right eye

== ENCOUNTER 2017-09-20 06:24 | Day surgery (SDC) | payer MEDICARE ==
[~2017-09-20] VITALS: Ht 165.1 cm; Wt 77.1 kg
--- OUTSIDE RECORDS SUMMARY | 2017-09-20 06:29 | XMS REPORT ---
Author Author CATRACHITA MOLINA Organization [facility] Address [address] [place] [address] Care Team Providers Care Back Tacker Name Role Phone CATRACHITA MOLINA Unavailable PROBLEMS Type Condition ICD9-CM Code UQS18-RX Code Onset Dates Condition Status SNOMED Code Problem RLS (restless legs syndrome) G25.81 Active 25288181 Problem Encounter for immunization Z23 Active 612119647 Problem Essential hypertension I10 Active 68252875 Problem Diabetes type 2, controlled E11.9 Active 34308943 Problem Diabetic polyneuropathy associated with type 2 diabetes mellitus E11.42 Active 79739822 Problem Other chronic pain G89.29 Active 35451931 Problem Hypoglycemia E16.2 Active 046007851 Problem Reactive depression F32.9 Active 97837091 Problem Type 2 diabetes mellitus with hyperglycemia E11.65 Active 990692872153972 Problem Spinal stenosis, unspecified spinal region M48.00 Active 12619740 Problem Type 2 diabetes mellitus with other specified complication E11.69 Active 15309206724344 Problem Hyperlipidemia, unspecified E78.5 Active 73281715 ALLERGIES No Information ENCOUNTERS Encounter Location Date Diagnosis [facility] [id number] [place] [address] [id number] July, Diabetic polyneuropathy associated with type 2 diabetes mellitus E11.42 ; Type 2 diabetes mellitus with hyperglycemia E11.65 ; RLS (restless legs syndrome ) G25.81 and Essential hypertension I10 [facility] [address] [facility] [id number] [place] [address] [id number] July, Spinal stenosis, unspecified spinal region M48.00 [facility] [address] [id number] [place] [address] [id number] July, [facility] [address] [id number][place] [id number] Jun, Type 2 diabetes mellitus with other specified complication E11.69 [facility] [id number] [place] [address] [id number] Jun, Spinal stenosis, unspecified spinal region M48.00 [facility] [id number], [place] [id number] Jun, Hypoglycemia E16.2 [facility] [id number] [place] [address] [id number] May, Hypoglycemia E16.2 ; Acute cystitis with hematuria N30.01 and Essential hypertension I10 [facility] [address]00565[address] [address] May, [facility] [id number], [place] [id number] May, Spinal stenosis, unspecified spinal region M48.00 [facility] [id number], [place] [id number] May, Reactive depression F32.9 [facility] [address]00565100[place] [phone] May, [facility] [id number], [place] [phone] Apr, [facility] [address] [id number][place] [id number] Apr, [facility] [address] [id number], [place] [id number] Apr, [facility] [address]00565100[place] [id number] Apr, [facility] [id number], [place] [id number] Apr, Spinal stenosis, unspecified spinal region M48.00 [facility] [id number], [place] [id number] Apr, Type 2 diabetes mellitus with other specified complication E11.69 ; Spinal stenosis, unspecified spinal region M48.00 ; Reactive depression F32.9 and Essential hypertension I[address] [facility] [address] [id number], [place] [id number] Apr, [facility] [id number] [place] [address] [id number] Mar, Spinal stenosis, unspecified spinal region M48.00 [facility] [id number] [place] [address] [id number] Feb, Acute non-recurrent maxillary sinusitis J01.00 and Essential hypertension I10 [facility] [address] [id number] [place] [address] [id number] Feb, Spinal stenosis, unspecified spinal region M48.00 [facility] [id number] [place] [address] [id number] Feb, Type 2 diabetes mellitus with other specified complication E11.69 [facility] [address] [id number] [place] [phone] Feb, Type 2 diabetes mellitus with other specified complication E11.69 and Essential hypertension I10 [facility] [id number] [place] [address] [id number] Feb, [facility] [id number] [place] [address] [id number] Feb, [facility] [id number] [place] [address] [id number] Jan, Spinal stenosis, unspecified spinal region M48.00 [facility] [address] [id number] [place] [address] [id number] Jan, Diabetic polyneuropathy associated with type 2 diabetes mellitus E11.42 [facility] [id number] [place] [address] [id number] Jan, Diabetic polyneuropathy associated with type 2 diabetes mellitus E11.42 [facility] [address] [id number] [place] [address] [id number] Jan, Type 2 diabetes mellitus with hyperglycemia E11.65 ; Type 2 diabetes mellitus with other specified complication E11.69 ; Spinal stenosis, unspecified spinal region M48.00 and Essential hypertension I10 [facility] [address] [id number] [place] [address] [id number] Jan, Diabetic polyneuropathy associated with type 2 diabetes mellitus E11.42 [facility] [address] [id number], [place] [id number] Dec, [facility] [address] [id number], [place] [id number] Dec, Diabetic polyneuropathy associated with type 2 diabetes mellitus E11.42 ; Type 2 diabetes mellitus with other specified complication E11.69 ; Hyperlipidemia, unspecified E78.5 ; Thyroid disorder E07.9 and Thyroid disorder screening Z13.29 [facility] [id number], [place] [id number] Dec, Diabetic polyneuropathy associated with type 2 diabetes mellitus E11.42 [facility] [address]00565100[place] [address] Dec, Diabetic polyneuropathy associated with type 2 diabetes mellitus E11.42 [facility] [id number] [place] [address] [id number] Dec, Spinal stenosis, unspecified spinal region M48.00 [facility] [id number], [place] [id number] Dec, [facility] [id number] [place] [address] [id number] 18 Nov, 2016 Diabetic polyneuropathy associated with type 2 diabetes mellitus E11.42 [facility] [id number], [place] [id number] 15 Nov, 2016 Other chronic pain G89.29 [facility] [id number] [place] [address] [id number] 14 Nov, 2016 Spinal stenosis, unspecified spinal region M48.00 [facility] [id number], [place] [id number] Oct, Spinal stenosis, unspecified spinal region M48.00 ; Essential hypertension I10 ; RLS (restless legs syndrome) G25.81 and Diabetic polyneuropathy associated with type 2 diabetes mellitus E11.42 [facility] [id number], [place] [id number] Oct, Spinal stenosis, unspecified spinal region M48.00 [facility] [id number], [place] [id number] Sep, Diabetic polyneuropathy associated with type 2 diabetes mellitus E11.42 ; RLS (restless legs syndrome) G25.81 ; Spinal stenosis, unspecified spinal region M48.00 and Essential hypertension I10 [facility] [address] [id number], [place] [id number] 14 Sep, 2016 [facility] [address] [id number] [place] [address] [id number] Sep, Spinal stenosis, unspecified spinal region M48.00 [facility] [address] [id number] [place] [address] [id number] Sep, [facility] [address] [id number] [place] [address] [id number] Aug, Spinal stenosis, unspecified spinal region M48.00 [facility] [id number] [place] [address] July, [facility] [address] [id number] [place] [address] [id number] July, Spinal stenosis, unspecified spinal region M48.00 [facility] [address] [id number] [place] [phone] Jun, Type 2 diabetes mellitus with hyperglycemia E11.65 [facility] [address] [id number] [place] [address] [id number] Jun, Spinal stenosis, unspecified spinal region M48.00 [facility] [address] [id number] [place] [address] [id number] May, Spinal stenosis, unspecified spinal region M48.00 [facility] [id number] [place] [address] [id number] Apr, Spinal stenosis, unspecified spinal region M48.00 [facility] [id number] [place] [address] Mar, [facility] [id number] [place] [address] [id number] Mar, Type 2 diabetes mellitus with hyperglycemia E11.65 ; RLS (restless legs syndrome) G25.81 and Spinal stenosis, unspecified spinal region M48.00 [facility] [id number] [place] [address] 43[address]- 9096 Mar, [facility] [id number] [place] [address] [id number] Mar, [facility] [address] [id number] [facility] [id number][place] [id number] Mar, [facility] [address]00565100[place], [place] [phone] Feb, [facility] [address]00565100[place] [address] Feb, [facility] [id number] [place] [address] [id number] Feb, [facility] [id number] [place] [address] [id number] Feb, [facility] [id number] [place] [address] 99686 2546 Feb, [facility] [id number] [place] [address] 80754- 2546 Feb, [address]00565100[place] [id number] Jan, [facility] [address] [place] [address] [id number] Dec, Diabetic polyneuropathy associated with type 2 diabetes mellitus E11.42 ; Other chronic pain G89.29 ; Essential hypertension I10 and Encounter for immunization Z23 [facility] [address]00565100[place], [place] [id number] Dec, [facility] [address]00565100[place] [address] Nov, [facility] [address]65100[place], [place] [id number] Nov, [facility] [address]65100[place] [id number] Nov, Diabetes type 2, controlled E11.9 [address] [place] [address] [id number] Nov, Diabetes type 2, controlled E11.9 ; Other chronic pain G89.29 ; Essential hypertension I10 ; Diabetic polyneuropathy associated with type 2 diabetes mellitus E11.42 and RLS (restless legs syndrome) G25.81 [facility] [place] [facility] [address] [id number] [place] [address] Nov, [facility] [address] [id number] [place] [phone] Oct, [facility] [address] [id number] [place] [id number] Oct, [facility] [address] [id number] [place] [phone] Oct, [facility] [place] [facility] [address] [id number] [place] [address] 89[address] Oct, [facility] [address] [id number] [place] [id number] Sep, [facility] [address] [id number] [place] [id number] Sep, [facility] [place] [facility] [address] [facility] [id number] [address] Sep, Dental examination Z01.20 [facility] [place] [facility] [address] [facility] [id number] [address] Aug, [facility] [address] [id number] [place] [id number] Aug, [facility] [place] [facility] [address] [facility] [id number] [place] [address] Aug, [facility] [place] [facility] [address] [facility] [id number] [place] 2435[place]- 9686 July, [facility] [place] [facility] [address] [facility] [id number] [place] [address] 267[address] July, [facility] [place] [facility] [address] [facility] [id number] [address] 9[address] July, [facility] [address] [id number] [place] [id number] July, [facility] [address] [id number] [place] [id number] July, [facility] [address] [id number] [place] [id number] July, [facility] [place] [facility] [address] [facility] [id number] [address] July, [facility] [address] [id number] [place] [address] [id number] Jun, Diabetes type 2, controlled E11.9 [facility] [address] [id number], [place] [id number] Jun, [facility] [address] [id number] [place] [address] [id number] May, Diabetes type 1, uncontrolled E10.65 [facility] [address] [id number], [place] [id number] May, [facility] [address] [id number] [place] [address] [id number] Apr, [facility] [address] [id number] [place] [address] [id number] Apr, [facility] [address] [id number], [place] [id number] Mar, [facility] [address] [id number] [place] [address] [id number] Mar, [facility] [address] [id number], [place] [id number] Mar, [facility] [address] [id number] [place] [address] [id number] Mar, Diabetes type 1, uncontrolled E10.65 [facility] [address] [id number], [place] [id number] Feb, [facility] [address] [id number], [place] [id number] Feb, [facility] [address] [id number], [place] [id number] Feb, [facility] [address]00565100[place] 6555[address]602 Jan, [facility] [address] [id number], [place] [id number] Jan, Dysuria R30.0 and Acute cystitis with hematuria N30.01 [facility] [id number], [place] [id number] Jan, [facility] [address] [id number], [place] [id number] Dec, Gastroenteritis K52.9 and Headache, unspecified headache type R51 [facility] [id number], [place] [id number] Dec, [facility] [address] [id number], [place] [id number] Dec, Chronic back pain 724.5 [facility] [id number] [place] [id number] Dec, [facility] [id number], [place] [id number] Nov, Chronic back pain 724.5 and Diabetes mellitus without mention of complication, type II or unspecified type, uncontrolled 250.02 [facility] [place] [id number], [place] [id number] Nov, [facility] [id number], [place] [id number] Oct, [facility] [id number], [place] [id number] Sep, Diabetes mellitus without mention of complication, type II or unspecified type, uncontrolled 250.02 and Urinary tract infection 599.0 [facility] [id number], [place] [id number] July, [facility] [address]00565100[place] [address]- [address] Jun, [facility] [address]00565100[place] [address]- 2546 Jun, [facility] [id number], [place] [id number] May, [facility] [id number] [place] [address] 97810- 2546 May, [facility] [address] [id number], [place] [id number] May, [facility] [id number] [place] [address] 19861- 3426 May, [facility] [address] [id number] [place] [id number] Mar, [facility] [place] [facility] [address] [facility] [id number] [address]- 1066 Mar, [facility] [place] [facility] [address] [facility] [id number] [place] [address]- 2936 Mar, [facility] [address] [id number] [place] [id number] Mar, [facility] [address] [id number] [place] [id number] Feb, [facility] [place] [facility] [address] [facility] [id number] [place] [address]- 5896 Feb, [facility] [address] [id number] [place] [id number] Feb, [facility] [place] [facility] [address] [facility] [id number] [place] [address]- 5145 Feb, [facility] [place] [facility] [address] [facility] [id number] [address]- 1835 Feb, [facility] [address] [id number], [place] [id number] Feb, [facility] [address] [id number], [place] [id number] Feb, [facility] [place] [facility] [address] [facility] [id number] [address]- 8478 Feb, [facility] [place] [facility] [address] [facility] [id number] [address]- 9019 Feb, [facility] [address] [id number], [place] [id number] Jan, [facility] [place] [facility] [address] [facility] [id number] [address]- 3556 Jan, [facility] [address] [id number] [place] [id number] Jan, [facility] [place] [facility] [address] [facility] [id number] [place] [address]- 7266 Jan, [facility] [address] [facility] [id number] [place] [id number] Dec, [facility] [place] [facility] [address] [facility] [id number] [place] [address]- 1022 Dec, [facility] [place] [facility] [address] [facility] [id number] [place] [address]- 2237 Dec, [facility] [place] [facility] [address] [facility] [id number] [place] [address]- 1264 Dec, [facility] [address] [facility] [id number] [place] [id number] Dec, [facility] [place] [facility] [address] [facility] [id number] [place] [address]- 8684 Dec, [facility] [address] [facility] [id number] [place] [id number] Nov, [facility] [place] [facility] [address] [facility] [id number] [place] [address]- 9537 Nov, [facility] [address] [facility] [id number] [place] [id number] Oct, [facility] [place] [facility] [address] [facility] [id number] [place] [address]- 3801 Oct, [facility] [place] [facility] [address] [facility] [id number] [address]- 0278 Sep, [facility] [address] [id number], [place] [id number] Sep, [facility] [address] [id number] [place] [id number] Aug, [facility] [place] [facility] [address] [facility] [id number] [address]- 2543 Aug, [facility] [address] [facility] [id number] [place] [id number] July, [facility] [place] [facility] [address] [facility] [id number] [place] [address]- 0706 July, [facility] [address] [facility] [id number], [place] [id number] July, [facility] [place] [facility] [address] [facility] [id number] [place] [address]- 2226 July, [facility] [place] [facility] [address] [facility] [id number] [place] [address]- 2546 July, [facility] [place] [facility] [address] [facility] [id number] [address]- 3406 Jun, [facility] [address] [facility] [id number], [place] [id number] Jun, [facility] [address] [facility] [id number][place] [id number] Jun, [facility] [address] [facility] [id number] [place] [address] Jun, [facility] [id number] [address] Jun, [facility] [address] [facility] [id number] [place] [address] May, [facility] [address] [facility] [id number][place] [id number] Apr, [facility] [address] [id number] [address] Apr, [facility] [address] [id number] [id number] Apr, [facility] [address] [facility] [id number] [place] [address] Apr, [facility] [address] [facility] [id number] [place] [address] Mar, [facility] [address] [facility] [id number] [place] [address] Mar, [facility] [address] [facility] [id number] [place] [address] Mar, [facility] [address] [facility] [id number][place] [id number] Mar, [facility] [address] [facility] [id number] [place] [address] Mar, [facility] [address] [facility] [id number] [place] [address] Mar, [facility] [address] [facility] [id number] [place] [address] Feb, [facility] [address] [id number][place] [id number] Feb, [facility] [address] [facility] [id number] [place] [address] Feb, [facility] [address] [id number][place] [id number] Feb, [facility] [id number] [address] Feb, [facility] [address] [id number][place] [id number] Feb, [facility] [address] [id number] [address] Feb, [facility] [address] [id number][place] [id number] Jan, [facility] [address] [place] [id number] [address] Jan, [facility] [place] [facility] [address] [facility] [id number] [address] Dec, [facility] [place] [address] [id number][place] [id number] Dec, [facility] [place] [facility] [address] [facility] [id number] [address] Nov, [facility] [place] [address] [id number][place] [id number] Oct, [facility] [place] [address] [id number][place] [id number] Oct, [facility] [place] [address] [id number] [place] [id number] Sep, [facility] [address] [id number] [place] [address] Sep, [facility] [place] [address] [id number] [place] [id number] Sep, [facility] [place] [address] [id number] [place] [id number] Sep, [facility] [place] [address] [id number] [place] [id number] Sep, [facility] [place] [address] [id number] [place] [address] Sep, [facility] [place] [address] [id number] [place] [id number] Sep, [facility] [address] [facility] [id number] [address] Aug, [facility] [place] [address] [id number] [place] [id number] Aug, [facility] [address] [facility] [id number] [address] July, [facility] [place] [address] [id number] [place] [id number] July, [facility] [address] [facility] [id number] [place] [address] July, [facility] [place] [address] [id number] [place] [id number] Jun, [facility] [place] [address] [id number][place] [id number] Jun, [facility] [place] [address] [id number] [place] [id number] Jun, [facility] [address] [facility] [id number] [address] Jun, [facility] [place] [address] [id number] [place] [id number] May, [facility] [place] [address] [id number] [place] [id number] May, [facility] [place] [facility] [address] [facility] [id number] [place] [address] May, [facility] [place] [address] [facility] [id number] [place] [id number] Apr, [facility] [place] [facility] [address] [facility] [id number] [address] Apr, [facility] [place] [address] [id number] [place] [id number] Apr, [facility] [place] [address] [id number] [place] [id number] Apr, [facility] [place] [facility] [address] [facility] [id number] [address] Mar, [facility] [place] [address] [id number], [place] [id number] Mar, [facility] [place] [address] [id number], [place] [id number] Mar, [facility] [place] [address] [id number], [place] [id number] Feb, [facility] [place] [facility] [address] [facility] [id number] [place] [address] Feb, [facility] [place] [address] [facility] [id number][place] [id number] Jan, [facility] [place] [id number], [place] [id number] Jan, [facility] [place] [facility] [address]00565100[place] [address] Jan, [facility] [place] [facility] [address] [facility] [id number] [address] Jan, [facility] [place] [address] [facility] [id number], [place] [id number] Jan, [facility] [place] [facility] [address] [facility] [id number] [place] [address] Jan, [facility] [place] [address] [facility] [id number], [place] [id number] Dec, [facility] [place] [facility] [address] [facility] [id number] [place] [address] Dec, [facility] [place] [address] [id number] [place] [id number] Dec, [facility] [address] [facility] [id number] [place] [address] Dec, [facility] [place] [address] [id number] [place] [id number] Dec, [facility] [place] [address] [id number] [place] [id number] Nov, [facility] [place] [address] [id number] [place] [id number] Nov, [facility] [place] [address] [id number] [place] [id number] Oct, [facility] [place] [address] [id number] [place] [id number] Oct, [facility] [place] [address] [id number] [place] [id number] Sep, [facility] [place] [address] [id number] [place] [address]66883751 Sep, [facility] [place] [address] [id number] [place] [id number] Sep, [facility] [place] [address] [id number] [place] [id number] Aug, [facility] [place] [address] [id number] [place] [id number] Aug, [facility] [place] [address] [id number] [place] [id number] July, [facility] [place] [address] [id number] [place] [id number] July, [facility] [place] [address] [id number] [place] [id number] July, [facility] [place] [address] [id number] [place] [id number] July, [facility] [address] [facility] [id number] [place] [address] Jun, [facility] [place] [address] [id number] [place] [id number] Jun, [facility] [place] [address] [id number] [place] [id number] Jun, [facility] [place] [address] [id number] [id number] Jun, [facility] [place] [address] [id number] [place] [id number] May, [facility] [place] [address] [id number] [place] [id number] May, [facility] [place] [address] [id number] [place] [id number] Apr, [facility] [place] [address] [id number] [place] [id number] Apr, [facility] [place] [address] [id number] [place] [id number] Apr, [facility] [place] [address] [id number] [place] [id number] Apr, [facility] [place] [address] [id number] [place] [id number] Apr, [facility] [address]00565100[place] [address] Apr, [facility] [place] [address] [id number] [place] [id number] Apr, [facility] [place] [address] [id number] [place] [id number] Apr, [facility] [place] [address] [id number] [place] [id number] Mar, [facility] [address] [id number] [address] Feb, [facility] [id number] [place] [address]- [address]30 Feb, [facility] [address]00565100[place] [address]- [address] Feb, [facility] [id number] [address]- [address] 05 Feb, 2011 [facility] [place] [facility] [address] [id number] [place] [address] Jan, [facility] [place] [facility] [address] [id number] [place] [address]- 4936 Jan, [facility] [place] [facility] [address] [id number] [place] [address]- 7286 Jan, [facility] [place] [facility] [address] [id number] [place] [address]- 5414 Dec, [facility] [place] [facility] [address] [id number] [place] [address]- 9039 24 Dec, 2010 [facility] [place] [facility] [address] [id number] [place] [address]- 8606 Aug, [facility] [place] [facility] [address] [id number] [place] [address]- 4359 Aug, [facility] [place] [facility] [address] [id number] [place] [address]- 3288 Feb, [facility] [place] [facility] [address] [id number] [place] [address]- 6622 Feb, [facility] [place] [facility] [address] [facility] [id number] [place] [address]- 6588 Jan, [facility] [place] [facility] [address] [id number] [place] [address]- 9935 Jan, [facility] [place] [facility] [address] [id number] [place] [address]- 2540 Dec, [facility] [place] [facility] [address] [id number] [place] [address]- 5085 Dec, [facility] [place] [facility] [address] [id number] [place] [address]- 9400 Dec, [facility] [place] [facility] [address] [id number] [place] [address] May, [facility] [address] [id number] [address]- [address] Mar, [facility] [address]00565100[place] [address]- 8[address] Feb, [facility] [address]00565100[place] [address]- 6[address] Feb, [facility] [address]00565100[place] [address]- 6[address] Feb, [facility] [address]00565100[place] [address]- 6[address] Jan, [facility] [address]00565100[place] [address]- 7628 Jan, [facility] [address]00565100[place] [address]- 3[address] Oct, [facility] [address]00565100[place] [address]- [address] July, [facility] [address]00565100[place] [address]- 4841 Apr, [facility] [address]00565100[place] [address]- 9666 Jan, [facility] [address] [id number] [address]- 1386 Jan, IMMUNIZATIONS No Known Immunizations SOCIAL HISTORY Never Assessed REASON FOR VISIT PALS PLAN OF CARE VITAL SIGNS MEDICATIONS Medication Instructions Dosage Frequency Start Date End Date Duration Status Victoza 18 MG/3ML Subcutaneous Once a day 1.8 mg 24h Active Levemir 100 UNIT/ML Subcutaneous 2 times a day 68 units 12h 20 Jun, 2015 Active RESULTS No Results PROCEDURES No Known procedures INSTRUCTIONS MEDICATIONS ADMINISTERED No Known Medications MEDICAL (GENERAL) HISTORY Type Description Date Medical [...] graft placement 01/2014 Hospitalization History surgeries, childbirth Hospitalization History [place]- Possible Stroke 05/16/2017
--- OUTSIDE RECORDS SUMMARY | 2017-09-20 06:29 | XMS REPORT ---
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 Name Role Phone CATRACHITA MOLINA Unavailable PROBLEMS Type Condition ICD9-CM Code EQC74-VK Code Onset Dates Condition Status SNOMED Code Problem RLS (restless legs syndrome) G25.81 Active 92075832 Problem Encounter for immunization Z23 Active 917968484 Problem Essential hypertension I10 Active 42040877 Problem Diabetes type 2, controlled E11.9 Active 82033995 Problem Diabetic polyneuropathy associated with type 2 diabetes mellitus E11.42 Active 79612830 Problem Other chronic pain G89.29 Active 65342100 Problem Hypoglycemia E16.2 Active 581514051 Problem Reactive depression F32.9 Active 77076573 Problem Type 2 diabetes mellitus with hyperglycemia E11.65 Active 329838484106792 Problem Spinal stenosis, unspecified spinal region M48.00 Active 47769828 Problem Type 2 diabetes mellitus with other specified complication E11.69 Active 69735296474281 Problem Hyperlipidemia, unspecified E78.5 Active 80943173 ALLERGIES No Information ENCOUNTERS Encounter Location Date Diagnosis [facility] [address] [id number], [place] [id number] Sep, [facility] [id number], [place] [id number] Sep, Spinal stenosis, unspecified spinal region M48.00 [facility] [address] [id number] [place] [address] Aug, [facility] [id number] [place] [address] [id number] Aug, Spinal stenosis, unspecified spinal region M48.00 [facility] [address] [id number], [place] [id number] Aug, Spinal stenosis, unspecified spinal region M48.00 [facility] [id number], [place] [id number] July, [facility] [id number], [place] [id number] July, Diabetic polyneuropathy associated with type 2 diabetes mellitus E11.42 ; Type 2 diabetes mellitus with hyperglycemia E11.65 ; RLS (restless legs syndrome ) G25.81 and Essential hypertension I10 [facility] [id number], [place] [address]8744 July, Spinal stenosis, unspecified spinal region M48.00 [facility] [id number] [place] [address] [id number] July, [facility] [id number] [place] [address] [id number] Jun, Type 2 diabetes mellitus with other specified complication E11.69 [facility] [id number], [place] 570676117 Jun, Spinal stenosis, unspecified spinal region M48.00 [facility] [address]00565100[address], [place] [address]2369 Jun, Hypoglycemia E16.2 [facility] [id number], [place] [id number] May, Hypoglycemia E16.2 ; Acute cystitis with hematuria N30.01 and Essential hypertension I10 [facility] [address]00565100[place] [address] May, [facility] [id number], [place] [id number] May, Spinal stenosis, unspecified spinal region M48.00 [facility] [id number], [place] 072999480 May, Reactive depression F32.9 [facility] [address]00565100[place], [place] [id number] May, [facility] [id number], [place] [id number] Apr, [facility] [address] [id number], [place] [id number] Apr, [facility] [address] [id number], [place] [id number] Apr, [facility] [address] [id number], [place] 509482785 Apr, [facility] [id number] [place] [address] [id number] Apr, Spinal stenosis, unspecified spinal region M48.00 [facility] [address] [id number], [place] [id number] Apr, Type 2 diabetes mellitus with other specified complication E11.69 ; Spinal stenosis, unspecified spinal region M48.00 ; Reactive depression F32.9 and Essential hypertension I10 [facility] [address] [id number], [place] [id number] Apr, [facility] [id number] [place] [address] [id number] Mar, Spinal stenosis, unspecified spinal region M48.00 [facility] [address] [id number], [place] [id number] Feb, Acute non-recurrent maxillary sinusitis J01.00 and Essential hypertension I10 [facility] [address] [id number], [place] [id number] Feb, Spinal stenosis, unspecified spinal region M48.00 [facility] [id number] [place] [address] [id number] Feb, Type 2 diabetes mellitus with other specified complication E11.69 [facility] [address] [id number] [place] [address] [id number] Feb, Type 2 diabetes mellitus with other specified complication E11.69 and Essential hypertension I10 [facility] [address] [id number], [place] [id number] Feb, [facility] [id number] [place] [address] [id number] Feb, [facility] [address] [id number] [place] [address] [id number] Jan, Spinal stenosis, unspecified spinal region M48.00 [facility] [id number] [place] [address] [id number] Jan, Diabetic polyneuropathy associated with type 2 diabetes mellitus E11.42 [facility] [address] [id number], [place] [id number] 14 Jan, 2017 Diabetic polyneuropathy associated with type 2 diabetes mellitus E11.42 [facility] [address] [id number], [place] [id number] 06 Jan, 2017 Type 2 diabetes mellitus with hyperglycemia E11.65 ; Type 2 diabetes mellitus with other specified complication E11.69 ; Spinal stenosis, unspecified spinal region M48.00 and Essential hypertension I10 [facility] [address] [id number], [place] [id number] Jan, Diabetic polyneuropathy associated with type 2 diabetes mellitus E11.42 [facility] [id number] [place] [address] [id number] Dec, [facility] [id number] [place] [address] [id number] Dec, Diabetic polyneuropathy associated with type 2 diabetes mellitus E11.42 ; Type 2 diabetes mellitus with other specified complication E11.69 ; Hyperlipidemia, unspecified E78.5 ; Thyroid disorder E07.9 and Thyroid disorder screening Z13.29 [facility] [id number], [place] [id number] Dec, Diabetic polyneuropathy associated with type 2 diabetes mellitus E11.42 [facility] [address]00565100[place] 23456236- [address] Dec, Diabetic polyneuropathy associated with type 2 diabetes mellitus E11.42 [facility] [address] [id number], [place] [id number] Dec, Spinal stenosis, unspecified spinal region M48.00 [facility] [address] [id number], [place] [id number] Dec, [facility] [address] [id number], [place] [id number] 18 Nov, 2016 Diabetic polyneuropathy associated with type 2 diabetes mellitus E11.42 [facility] [address] [id number], [place] [id number] 15 Nov, 2016 Other chronic pain G89.29 [facility] [id number], [place] [id number] 14 Nov, 2016 Spinal stenosis, unspecified spinal region M48.00 [facility] [id number] [place] [address] [id number] Oct, Spinal stenosis, unspecified spinal region M48.00 ; Essential hypertension I10 ; RLS (restless legs syndrome) G25.81 and Diabetic polyneuropathy associated with type 2 diabetes mellitus E11.42 [facility] [id number] [place] [address] [id number] Oct, Spinal stenosis, unspecified spinal region M48.00 [facility] [id number] [place] [address] [id number] Sep, Diabetic polyneuropathy associated with type 2 diabetes mellitus E11.42 ; RLS (restless legs syndrome) G25.81 ; Spinal stenosis, unspecified spinal region M48.00 and Essential hypertension I10 [facility] [id number] [place] [address] [id number] Sep, [facility] [id number] [place] [address] [id number] Sep, Spinal stenosis, unspecified spinal region M48.00 [facility] [id number] [place] [address] [id number] Sep, [facility] [id number] [place] [address] [id number] Aug, Spinal stenosis, unspecified spinal region M48.00 [facility] [address]00565100[place] [address] July, [facility] [id number] [place] [address] [id number] July, Spinal stenosis, unspecified spinal region M48.00 [facility] [id number] [place] [address] [id number] Jun, Type 2 diabetes mellitus with hyperglycemia E11.65 [facility] [id number] [place] [address] [id number] Jun, Spinal stenosis, unspecified spinal region M48.00 [facility] [id number] [place] [address] [id number] May, Spinal stenosis, unspecified spinal region M48.00 [facility] [address] [facility] [id number], [place] [id number] Apr, Spinal stenosis, unspecified spinal region M48.00 [facility] [address]00565100[place] [address] Mar, [facility] [id number] [place] [address] [id number] Mar, Type 2 diabetes mellitus with hyperglycemia E11.65 ; RLS (restless legs syndrome) G25.81 and Spinal stenosis, unspecified spinal region M48.00 [facility] [address] [place] [address] 81234 2546 Mar, [facility] [id number], [place] [id number] Mar, [facility] [address] [id number], [place] [id number] Mar, [facility] [id number], [place] [id number] Feb, [facility] [address]00565100[place] [address] Feb, [facility] [id number], [place] [id number] Feb, [facility] [id number], [place] [id number] Feb, [facility] [id number] [place] [address] 48137 2546 Feb, [facility] [address] [facility] [id number] [place] [address]- [address] Feb, [facility] [id number] [place] [address] [id number] Jan, [facility] [id number] [place] [address] [id number] Dec, Diabetic polyneuropathy associated with type 2 diabetes mellitus E11.42 ; Other chronic pain G89.29 ; Essential hypertension I10 and Encounter for immunization Z23 [facility] [id number], [place] [id number] Dec, [facility] [id number] [place] [address] [id number]- 4224 Nov, [facility] [id number] [place] [address] [id number] Nov, [facility] [id number] [place] [address] [id number] 15 Nov, 2015 Diabetes type 2, controlled E11.9 [facility] [id number] [place] [address] [id number] 14 Nov, 2015 Diabetes type 2, controlled E11.9 ; Other chronic pain G89.29 ; Essential hypertension I10 ; Diabetic polyneuropathy associated with type 2 diabetes mellitus E11.42 and RLS (restless legs syndrome) G25.81 [facility] [id number] [place] [address] 47639- 9653 Nov, [facility] [id number] [place] [address] [id number] Oct, [facility] [id number] [place] [address] [id number] Oct, [facility] [id number] [place] [address] [id number] Oct, [facility] [id number] [place] [address] 69078- 2186 Oct, [facility] [id number] [place] [address] [id number] Sep, [facility] [id number] [place] [address] [id number] Sep, [facility] [id number] [place] [address] 40574- 3522 Sep, Dental examination Z01.20 [facility] [id number] [place] [address] 85395- 7191 Aug, [facility] [id number] [place] [address] [id number] Aug, [facility] [address]00565100[place] [address]- 2546 Aug, [facility] [address] [facility] [id number] [place] [address]- [address] July, [facility] [address] [facility] [id number] [place] [address]- [address] July, [facility] [address] [facility] [id number] [place] [address]- 9[address] July, [facility] [address] [id number], [place] [id number] July, [facility] [id number] [place] [address] [id number] July, [facility] [id number] [place] [address] [id number] July, [facility] [address]00565100[place] [address]- 74[address] July, [facility] [address] [id number], [place] [id number] Jun, Diabetes type 2, controlled E11.9 [facility] [id number] [place] [address] [id number] Jun, [facility] [address] [id number] [place] [address] [id number] May, Diabetes type 1, uncontrolled E10.65 [facility] [address] [id number], [place] [id number] May, [facility] [address] [id number], [place] [id number] Apr, [facility] [address] [id number], [place] [id number] Apr, [facility] [address] [id number], [place] [id number] Mar, [facility] [address] [id number], [place] [id number] Mar, [facility] [address] [id number], [place] [id number] Mar, [facility] [address] [id number], [place] [id number] Mar, Diabetes type 1, uncontrolled E10.65 [facility] [id number], [place] [id number] Feb, [facility] [id number], [place] [id number] Feb, [facility] [id number], [place] [id number] Feb, [address] [id number], [place] [id number] Jan, [facility] [address] [facility] [id number], [place] [id number] Jan, Dysuria R30.0 and Acute cystitis with hematuria N30.01 [facility] [id number], [place] [id number] Jan, [id number], [place] [id number] Dec, Gastroenteritis K52.9 and Headache, unspecified headache type R51 [facility] [id number], [place] [id number] Dec, [facility] [id number] [place] [address] [id number] Dec, Chronic back pain 724.5 [facility] [id number] [id number] Dec, [facility] [id number], [place] [id number] Nov, Chronic back pain 724.5 and Diabetes mellitus without mention of complication, type II or unspecified type, uncontrolled 250.02 [facility] [address] [facility] [id number], [place] [id number] Nov, [facility] [id number], [place] [id number] Oct, [facility] [address] [facility] [id number], [place] [id number] Sep, Diabetes mellitus without mention of complication, type II or unspecified type, uncontrolled 250.02 and Urinary tract infection 599.0 [facility] [address] [facility] [id number], [place] [id number] July, [facility] [place] [facility] [address] [facility] [id number] [place] [address]- 9106 Jun, [facility] [place] [facility] [address] [facility] [id number] [place] [address]- 6466 Jun, [facility] [address] [facility] [id number], [place] [id number] May, [facility] [place] [facility] [address] [facility] [id number] [place] [address]- 8046 May, [facility] [address] [facility] [id number], [place] [id number] May, [facility] [place] [facility] [address]00565100[place] [address]- 2546 May, [facility] [id number], [place] [id number] Mar, [facility] [place] [facility] [address]00565100[place] [address]- [address] Mar, [facility] [place] [facility] [address]65100[place] [address]- 3366 Mar, [facility] [address] [id number], [place] [id number] Mar, [facility] [address] [id number], [place] [id number] Feb, [facility] [place] [facility] [address] [facility] [id number] [place] [address]- 6546 Feb, [facility] [address] [facility] [id number], [place] [id number] Feb, [facility] [place] [facility] [address] [facility] [id number] [place] [address]- 0356 Feb, [facility] [place] [facility] [address] [facility] [id number] [place] [address]- 9366 Feb, [facility] [address] [facility] [id number], [place] [id number] Feb, [facility] [address] [id number] [place] [id number] Feb, [facility] [place] [facility] [address] [facility] [id number] [place] [address]- 2546 Feb, [facility] [place] [facility] [address] [facility] [id number] [place] [address]- 2546 Feb, [facility] [address] [id number] [place] [id number] Jan, [facility] [place] [facility] [address] [id number] [place] [address]- 2546 Jan, [facility] [address] [id number] [place] [id number] Jan, [facility] [place] [facility] [address] [facility] [id number] [place] [address]- 5546 Jan, [facility] [address] [facility] [id number], [place] [id number] Dec, [facility] [place] [facility] [address] [facility] [id number] [place] [address]- 4082 Dec, [facility] [place] [facility] [address] [facility] [id number] [place] [address]- 3846 Dec, [facility] [place] [facility] [address] [facility] [id number] [place] [address]- 2913 Dec, [facility] [address] [facility] [id number], [place] [id number] Dec, [facility] [place] [facility] [address] [facility] [id number] [place] [address]- 2546 Dec, [facility] [address] [facility] [id number], [place] [id number] Nov, [facility] [place] [facility] [address] [facility] [id number] [place] [address]- 2546 Nov, [facility] [address] [facility] [id number] [place] [id number] Oct, [facility] [place] [facility] [address] [facility] [id number] [place] [address]- 2546 Oct, [facility] [place] [facility] [address] [id number] [place] [address]- 2546 Sep, [facility] [address] [id number] [place] [id number] Sep, [facility] [address] [facility] [id number] [place] [id number] Aug, [facility] [place] [facility] [address] [facility] [id number] [place] [address]- 2546 Aug, [facility] [address] [facility] [id number] [place] [id number] July, [facility] [place] [facility] [address] [facility] [id number] [place] [address] 2546 July, [facility] [address] [facility] [id number] [place] [id number] July, [facility] [place] [facility] [address] [facility] [id number] [place] [address]- 7676 July, [facility] [place] [facility] [address] [facility] [id number] [place] [address]- 6546 July, [facility] [place] [facility] [address] [facility] [id number] [place] [address]- 3866 Jun, [facility] [address] [facility] [id number], [place] [id number] Jun, [facility] [address] [facility] [id number], [place] [id number] Jun, [facility] [place] [facility] [address] [facility] [id number] [place] [address]- 2546 Jun, [facility] [place] [facility] [address] [facility] [id number] [place] [address]- 6456 Jun, [facility] [place] [facility] [address] [facility] [id number] [place] [address]- 2546 May, [facility] [address] [facility] [id number][place] [id number] Apr, [facility] [place] [facility] [address] [facility] [place] [id number] [place] [address] Apr, [facility] [address] [facility] [id number][place] [id number] Apr, [facility] [place] [facility] [address] [facility] [place] [id number] [place] [address] Apr, [facility] [place] [facility] [address] [facility] [place] [id number] [place] [address] Mar, [facility] [place] [facility] [address] [facility] [place] [id number] [place] [address] Mar, [facility] [place] [facility] [address] [facility] [place] [id number] [place] [address] Mar, [facility] [address] [id number] [id number] Mar, [facility] [id number] [address] Mar, [facility] [address] [facility] [place] [id number] [place] [address] Mar, [facility] [place] [facility] [address] [id number] [address] Feb, [facility] [address] [id number] [id number] Feb, [facility] [place] [facility] [address] [facility] [place] [id number] [place] [address] Feb, [facility] [address] [facility] [id number][place] [id number] Feb, [facility] [place] [facility] [address] [facility] [place] [id number] [place] [address] Feb, [facility] [address] [facility] [id number][place] [id number] Feb, [facility] [place] [facility] [address] [facility] [place] [id number] [place] [address] Feb, [facility] [address] [facility] [id number][place] [id number] Jan, [facility] [place] [facility] [address] [facility] [place] [id number] [place] [address] Jan, [facility] [place] [facility] [address] [facility] [place] [id number] [place] [address] Dec, [facility] [address] [id number] [place] [id number] Dec, [facility] [address] [facility] [facility] [place] [id number] [address] Nov, [facility] [address] [id number] [place] [id number] Oct, [facility] [address] [id number] [place] [id number] Oct, [facility] [address] [id number] [place] [id number] Sep, [facility] [address]00565100[place] [address] Sep, [facility] [address] [id number] [place] [id number] Sep, [facility] [address] [id number] [place] [id number] Sep, [facility] [address] [id number] [place] [id number] Sep, [facility] [address] [id number] [place] [id number] Sep, [facility] [address] [id number] [place] [id number] Sep, [facility] [place] [facility] [address] [facility] [place] [place] [id number] [place] [address] Aug, [facility] [address] [id number] [place] [id number] Aug, [facility] [place] [facility] [address] [facility] [place] [id number] [place] [address] July, [facility] [address] [id number] [place] [id number] July, [facility] [address] [facility] [place] [place] [id number] [address] July, [facility] [address] [id number] [place] [id number] Jun, [facility] [address] [id number] [place] [id number] Jun, [facility] [address] [id number] [place] [id number] Jun, [facility] [address] [facility] [place] [place] [id number] [place] [address] Jun, [facility] [address] [id number] [place] [id number] May, [facility] [address] [id number] [place] [id number] May, [facility] [address]65100[place] [address] May, [facility] [address] [facility] [id number][place] [id number] Apr, [facility] [address]65100[place] [address] Apr, [facility] [address] [id number][place] [id number] Apr, [facility] [id number], [place] [id number] Apr, [facility] [address] [facility] [place] [id number] [place] [address] Mar, [facility] [address] [id number][place] [id number] Mar, [facility] [address] [id number] [place] [id number] Mar, [facility] [address] [id number] [place] [id number] Feb, [facility] [address]65100[place] [address] Feb, [facility] [address] [id number] [place] [id number] Jan, [facility] [address] [id number] [place] [id number] Jan, [facility] [place] [facility] [address] [facility] [place] [id number] [place] [address] Jan, [facility] [address] [facility] [place] [id number] [place] [address] Jan, [facility] [address] [id number], [place] [id number] Jan, [facility] [place] [facility] [address] [facility] [place] [place] [id number] [place] [address] Jan, [facility] [address] [id number], [place] [id number] Dec, [facility] [place] [facility] [address]65100[place] [address] Dec, [facility] [address] [id number], [place] [id number] Dec, [facility] [place] [facility] [address] [facility] [place] [place] [id number] [place] [address] Dec, [facility] [address] [id number], [place] [id number] Dec, [facility] [address] [id number], [place] [id number] Nov, [facility] [address] [id number], [place] [id number] Nov, [facility] [address] [id number], [place] [address]41 Oct, [facility] [address] [id number] [place] [address]779[address] Oct, [facility] [address] [id number][place] [id number] Sep, [facility] [address] [id number], [place] [address]3379 Sep, [facility] [address] [id number], [place] [address] Sep, [facility] [address] [id number] [place] [id number] Aug, [facility] [address] [id number] [place] [id number] Aug, [facility] [address] [id number] [place] [id number] July, [facility] [address] [id number] [place] [id number] July, [facility] [address] [id number] [place] [id number] July, [facility] [address] [id number] [place] [address] July, [facility] [id number] [place] [address]- [address] Jun, [facility] [address] [id number] [place] [id number] Jun, [facility] [address] [id number] [place] 709154081 Jun, [facility] [address] [id number] [place] [id number] Jun, [facility] [address] [id number] [place] [id number] May, [facility] [address] [id number] [place] [id number] May, [facility] [address] [id number] [place] 745254536 Apr, [facility] [address] [id number] [place] [id number] Apr, [facility] [address] [id number] [place] 884907967 Apr, [facility] [address] [id number] [place] [id number] Apr, [facility] [address] [id number] [place] [id number] Apr, [facility] [id number] [place] [id number]- [address] Apr, [facility] [address] [id number] [place] [id number] Apr, [facility] [address] [id number] [place] [id number] Apr, [facility] [address] [id number] [place] [id number] Mar, [facility] [address] [id number] [place] [address] Feb, [facility] [place] [facility] [address] [id number] [place] [address] Feb, [facility] [place] [facility] [address] [facility] [place] [place] [id number] [place] [address]- [address] Feb, [facility] [place] [facility] [address] [facility] [place] [place] [id number] [place] [address] Feb, [facility] [place] [facility] [address] [id number] [address] Jan, [facility] [place] [facility] [address] [facility] [id number] [place] [address] Jan, [facility] [place] [facility] [address] [id number] [address]- [address] Jan, [facility] [place] [facility] [address] [id number] [address] Dec, [facility] [place] [facility] [address] [id number] [address]- [address] Dec, [facility] [place] [facility] [address] [facility] [id number] [place] [address]- [address] Aug, [facility] [place] [facility] [address] [facility] [id number] [place] [address]- [address] Aug, [facility] [place] [facility] [address] [facility] [id number] [place] [address]- 97[address] Feb, [facility] [place] [facility] [address] [facility] [id number] [place] [address]- [address] Feb, [facility] [place] [facility] [address] [id number] [place] [address]- [address] Jan, [facility] [place] [facility] [address] [id number] [place] [address]- 4768 Jan, [facility] [place] [facility] [address] [id number] [place] [address]- 79[address] Dec, [facility] [place] [facility] [address] [id number] [place] [address]- 0066 Dec, [facility] [place] [facility] [address] [id number] [place] [address]- [address] Dec, [facility] [place] [facility] [address] [id number] [place] [address]- 30[address] May, [facility] [place] [facility] [address] [id number] [place] [address]- [address] Mar, [facility] [place] [facility] [address] [id number] [place] [address]- 85[address] Feb, [facility] [place] [facility] [address] [id number] [place] [address]- [address] Feb, [facility] [place] [facility] [address] [facility] [id number] [place] [address]- 67[address] Feb, [facility] [place] [facility] [address] [id number] [place] [address]- [address] Jan, [facility] [place] [facility] [address] [id number] [place] [address]- 6[address] Jan, [facility] [place] [facility] [address] [id number] [place] [address]- 89[address] Oct, [facility] [place] [facility] [address] [id number] [place] [address]- [address] July, [facility] [place] [facility] [address] [id number] [place] [address]- 7698 Apr, [facility] [place] [facility] [address] [facility] [place] [id number] [place] [address]- 9[address] Jan, [facility] [address] [facility] [place] [place] [id number] [place] [address]- [address] Jan, IMMUNIZATIONS No Known Immunizations SOCIAL HISTORY Never Assessed REASON FOR VISIT RX-Hydrocodone refill PLAN OF CARE VITAL SIGNS MEDICATIONS Medication Instructions Dosage Frequency Start Date End Date Duration Status Hydrocodone-Acetaminophen 7.5-325 MG Orally every 4-6 hrs PRN, Must last 28 days 1 tablet May, Active RESULTS No Results PROCEDURES No Known [...] Hospitalization History surgeries, childbirth Hospitalization History [facility] [place]- Possible Stroke 05/16/2017
--- OUTSIDE RECORDS SUMMARY | 2017-09-20 06:30 | XMS REPORT ---
Author Author CATRACHITA MOLINA Organization [facility] Address [address] [place] [address] Care Team Providers Care Product Safety Tester Name Role Phone CATRACHITA MOLINA Unavailable PROBLEMS Type Condition ICD9-CM Code VYU19-VN Code Onset Dates Condition Status SNOMED Code Problem RLS (restless legs syndrome) G25.81 Active 01257764 Problem Encounter for immunization Z23 Active 180799056 Problem Essential hypertension I10 Active 71478326 Problem Diabetes type 2, controlled E11.9 Active 64117863 Problem Diabetic polyneuropathy associated with type 2 diabetes mellitus E11.42 Active 23098276 Problem Other chronic pain G89.29 Active 56509014 Problem Hypoglycemia E16.2 Active 367222882 Problem Reactive depression F32.9 Active 38675532 Problem Type 2 diabetes mellitus with hyperglycemia E11.65 Active 198089864750172 Problem Spinal stenosis, unspecified spinal region M48.00 Active 42727780 Problem Type 2 diabetes mellitus with other specified complication E11.69 Active 41034897524627 Problem Hyperlipidemia, unspecified E78.5 Active 96989952 ALLERGIES No Information ENCOUNTERS Encounter Location Date Diagnosis [facility] [id number] [place] [address] [id number] July, Diabetic polyneuropathy associated with type 2 diabetes mellitus E11.42 ; Type 2 diabetes mellitus with hyperglycemia E11.65 ; RLS (restless legs syndrome ) G25.81 and Essential hypertension I10 [facility] [address] [facility] [id number] [place] [address] [id number] July, Spinal stenosis, unspecified spinal region M48.00 [facility] [address] [id number] [place] [address] [id number] July, [facility] [address] [id number], [place] [id number] Jun, Type 2 diabetes mellitus with other specified complication E11.69 [facility] [id number] [place] [address] [id number] Jun, Spinal stenosis, unspecified spinal region M48.00 [facility] [id number], [place] [id number] Jun, Hypoglycemia E16.2 [facility] [id number] [place] [address] [id number] May, Hypoglycemia E16.2 ; Acute cystitis with hematuria N30.01 and Essential hypertension I10 [facility] [address] [address] May, [facility] [id number], [place] [id number] May, Spinal stenosis, unspecified spinal region M48.00 [facility] [id number], [place] [id number] May, Reactive depression F32.9 [facility] [address]00565100[place] [id number] May, [facility] [id number], [place] [id number] Apr, [facility] [address] [id number], [place] [id number] Apr, [facility] [address] [address] [id number], [place] [id number] Apr, [facility] [address]00565100[place] [id number] Apr, [facility] [id number], [place] [id number] Apr, Spinal stenosis, unspecified spinal region M48.00 [facility] [id number], [place] [id number] Apr, Type 2 diabetes mellitus with other specified complication E11.69 ; Spinal stenosis, unspecified spinal region M48.00 ; Reactive depression F32.9 and Essential hypertension I[address] [facility] [address] [id number], [place] [id number] Apr, [facility] [id number] [place] [address] [id number] Mar, Spinal stenosis, unspecified spinal region M48.00 [facility] [id number] [place] [address] [id number] Feb, Acute non-recurrent maxillary sinusitis J01.00 and Essential hypertension I10 [facility] [address] [id number] [place] [address] [id number] Feb, Spinal stenosis, unspecified spinal region M48.00 [facility] [address] [id number] [place] [address] [id number] Feb, Type 2 diabetes mellitus with other specified complication E11.69 [facility] [address] [id number] [place] [id number] Feb, Type 2 diabetes mellitus with other specified complication E11.69 and Essential hypertension I10 [facility] [address] [id number] [place] [address] [id number] Feb, [facility] [address] [id number] [place] [address] [id number] Feb, [facility] [address] [id number] [place] [address] [id number] Jan, Spinal stenosis, unspecified spinal region M48.00 [facility] [address] [id number] [place] [address] [id number] Jan, Diabetic polyneuropathy associated with type 2 diabetes mellitus E11.42 [facility] [address] [id number] [place] [address] [id number] Jan, Diabetic polyneuropathy associated with type 2 diabetes mellitus E11.42 [facility] [id number] [place] [address] [id number] Jan, Type 2 diabetes mellitus with hyperglycemia E11.65 ; Type 2 diabetes mellitus with other specified complication E11.69 ; Spinal stenosis, unspecified spinal region M48.00 and Essential hypertension I10 [facility] [id number] [place] [address] [id number] Jan, Diabetic polyneuropathy associated with type 2 diabetes mellitus E11.42 [facility] [address] [id number], [place] [id number] Dec, [facility] [address] [id number], [place] [id number] Dec, Diabetic polyneuropathy associated with type 2 diabetes mellitus E11.42 ; Type 2 diabetes mellitus with other specified complication E11.69 ; Hyperlipidemia, unspecified E78.5 ; Thyroid disorder E07.9 and Thyroid disorder screening Z13.29 [facility] [id number], [place] [id number] Dec, Diabetic polyneuropathy associated with type 2 diabetes mellitus E11.42 [facility] [place] [address]00565100[place] 12[address] Dec, Diabetic polyneuropathy associated with type 2 diabetes mellitus E11.42 [facility] [id number] [place] [address] [id number] Dec, Spinal stenosis, unspecified spinal region M48.00 [facility] [id number], [place] [id number] Dec, [facility] [id number] [place] [address] [id number] 18 Nov, 2016 Diabetic polyneuropathy associated with type 2 diabetes mellitus E11.42 [facility] [id number], [place] [id number] 15 Nov, 2016 Other chronic pain G89.29 [facility] [id number] [place] [address] [id number] 14 Nov, 2016 Spinal stenosis, unspecified spinal region M48.00 [facility] [id number], [place] [id number] Oct, Spinal stenosis, unspecified spinal region M48.00 ; Essential hypertension I10 ; RLS (restless legs syndrome) G25.81 and Diabetic polyneuropathy associated with type 2 diabetes mellitus E11.42 [facility] [id number], [place] [id number] Oct, Spinal stenosis, unspecified spinal region M48.00 [facility] [id number], [place] [id number] Sep, Diabetic polyneuropathy associated with type 2 diabetes mellitus E11.42 ; RLS (restless legs syndrome) G25.81 ; Spinal stenosis, unspecified spinal region M48.00 and Essential hypertension I10 [facility] [address] [id number], [place] [id number] 14 Sep, 2016 [facility] [id number] [place] [address] [id number] Sep, Spinal stenosis, unspecified spinal region M48.00 [facility] [address] [id number] [place] [address] [id number] Sep, [facility] [address] [id number] [place] [address] [id number] Aug, Spinal stenosis, unspecified spinal region M48.00 [facility] [id number] [place] [address] July, [facility] [address] [id number] [place] [address] [id number] July, Spinal stenosis, unspecified spinal region M48.00 [facility] [address] [id number] [place] [id number] Jun, Type 2 diabetes mellitus with hyperglycemia E11.65 [facility] [address] [id number] [place] [address] [id number] Jun, Spinal stenosis, unspecified spinal region M48.00 [facility] [address] [id number] [place] [address] [id number] May, Spinal stenosis, unspecified spinal region M48.00 [facility] [id number] [place] [address] [id number] Apr, Spinal stenosis, unspecified spinal region M48.00 [facility] [id number] [place] [address]- [address] Mar, [facility] [id number] [place] [address] [id number] Mar, Type 2 diabetes mellitus with hyperglycemia E11.65 ; RLS (restless legs syndrome) G25.81 and Spinal stenosis, unspecified spinal region M48.00 [facility] [id number] [place] [address] 03239- 6702 Mar, [facility] [id number] [place] [address] [id number] Mar, [facility] [place] [id number] [facility] [id number][place] [id number] Mar, [facility] [address]00565100[place] [id number] Feb, [facility] [place] [address]00565100[place] [address] Feb, [facility] [id number] [place] [address] [id number] Feb, [facility] [id number] [place] [address] [id number] Feb, [facility] [place] [id number] [place] [address] 89374 2546 Feb, [facility] [place] [id number] [place] [address] 57[address]- 2546 Feb, [address]00565100[place] [id number] Jan, [facility] [id number] [place] [address] [id number] Dec, Diabetic polyneuropathy associated with type 2 diabetes mellitus E11.42 ; Other chronic pain G89.29 ; Essential hypertension I10 and Encounter for immunization Z23 [facility] [address]00565100[place] [id number] Dec, [facility] [place] [address]00565100[place] [address]- [address] Nov, [facility] [address]00565100[place] [id number] Nov, [facility] [address]00565100[place] [id number] Nov, Diabetes type 2, controlled E11.9 [id number] [place] [address] [id number] Nov, Diabetes type 2, controlled E11.9 ; Other chronic pain G89.29 ; Essential hypertension I10 ; Diabetic polyneuropathy associated with type 2 diabetes mellitus E11.42 and RLS (restless legs syndrome) G25.81 [facility] [place] [facility] [address] [id number] [place] [address] Nov, [facility] [address] [id number] [place] [id number] Oct, [facility] [address] [id number] [place] [id number] Oct, [facility] [address] [id number] [place] [id number] Oct, [facility] [place] [facility] [address] [id number] [place] [address]- 0026 Oct, [facility] [address] [id number] [place] [id number] Sep, [facility] [address] [id number] [place] [id number] Sep, [facility] [place] [facility] [address] [facility] [id number] [address] Sep, Dental examination Z01.20 [facility] [place] [facility] [address] [facility] [id number] [address]- 6198 Aug, [facility] [address] [id number] [place] [id number] Aug, [facility] [place] [facility] [address] [facility] [id number] [address]- 1308 Aug, [facility] [place] [facility] [address] [facility] [id number] [place]- 67[address] July, [facility] [place] [facility] [address] [facility] [id number] [address]- 3[address] July, [facility] [place] [facility] [address] [facility] [id number] [address]- 7[address] July, [facility] [address] [id number] [place] [id number] July, [facility] [address] [id number] [place] [id number] July, [facility] [address] [id number] [place] [id number] July, [facility] [place] [facility] [address] [facility] [id number] [address]- 4[address] July, [facility] [address] [id number] [place] [address] [id number] Jun, Diabetes type 2, controlled E11.9 [facility] [address] [id number], [place] [id number] Jun, [facility] [address] [id number] [place] [address] [id number] May, Diabetes type 1, uncontrolled E10.65 [facility] [address] [id number], [place] [id number] May, [facility] [address] [id number] [place] [address] [id number] Apr, [facility] [address] [id number] [place] [address] [id number] Apr, [facility] [address] [id number], [place] [id number] Mar, [facility] [address] [id number] [place] [address] [id number] Mar, [facility] [address] [id number], [place] [id number] Mar, [facility] [address] [id number] [place] [address] [id number] Mar, Diabetes type 1, uncontrolled E10.65 [facility] [address] [id number], [place] [id number] Feb, [facility] [address] [id number], [place] [id number] Feb, [facility] [address] [id number], [place] [id number] Feb, [facility] [address]00565100[place] [id number] Jan, [facility] [address] [id number], [place] [id number] Jan, Dysuria R30.0 and Acute cystitis with hematuria N30.01 [facility] [id number], [place] [id number] Jan, [facility] [address] [id number], [place] 984507743 Dec, Gastroenteritis K52.9 and Headache, unspecified headache type R51 [facility] [id number], [place] 075854471 Dec, [facility] [address] [id number], [place] [id number] Dec, Chronic back pain 724.5 [facility] [place] [id number][place] [id number] Dec, [facility] [id number], [place] [id number] Nov, Chronic back pain 724.5 and Diabetes mellitus without mention of complication, type II or unspecified type, uncontrolled 250.02 [facility] [id number], [place] [id number] Nov, [facility] [id number], [place] 732231207 Oct, [facility] [id number], [place] [id number] Sep, Diabetes mellitus without mention of complication, type II or unspecified type, uncontrolled 250.02 and Urinary tract infection 599.0 [facility] [id number], [place] [id number] July, [facility] [place] [address]00565100[place] [address]- [address] Jun, [facility] [place] [address]00565100[place] [address]- 2546 Jun, [facility] [id number], [place] [id number] May, [facility] [place] [id number] [place] [address] 41707- 2546 May, [facility] [address] [id number], [place] [id number] May, [facility] [place] [id number] [place] [address] 81559- 0476 May, [facility] [address] [id number] [place] [id number] Mar, [facility] [place] [facility] [address] [facility] [id number] [place] [address]- 97[address] Mar, [facility] [place] [facility] [address] [facility] [id number] [place] [address]- 1386 Mar, [facility] [address] [id number] [place] [id number] Mar, [facility] [address] [id number] [place] [id number] Feb, [facility] [place] [facility] [address] [facility] [id number] [place] [address]- 2536 Feb, [facility] [address] [id number] [place] [id number] Feb, [facility] [place] [facility] [address] [facility] [id number] [address]- 9340 Feb, [facility] [place] [facility] [address] [facility] [id number] [place] [address]- 0534 Feb, [facility] [address] [id number], [place] [id number] Feb, [facility] [address] [id number], [place] [id number] Feb, [facility] [place] [facility] [address] [facility] [id number] [place] [address]- 2133 Feb, [facility] [place] [facility] [address] [facility] [id number] [place] [address]- 2159 Feb, [facility] [address] [id number], [place] [id number] Jan, [facility] [place] [facility] [address] [facility] [id number] [place] [address]- 8336 Jan, [facility] [address] [id number] [place] [id number] Jan, [facility] [place] [facility] [address] [facility] [id number] [place] [address]- 9336 Jan, [facility] [address] [facility] [id number] [place] [id number] Dec, [facility] [place] [facility] [address] [facility] [id number] [place] [address]- 7061 Dec, [facility] [place] [facility] [address] [facility] [id number] [place] [address]- 8923 Dec, [facility] [place] [facility] [address] [facility] [id number] [place] [address]- 3187 Dec, [facility] [address] [facility] [id number] [place] [id number] Dec, [facility] [place] [facility] [address] [facility] [id number] [place] [address]- 3032 Dec, [facility] [address] [facility] [id number] [place] [id number] Nov, [facility] [place] [facility] [address] [facility] [id number] [place] [address]- 2069 Nov, [facility] [address] [facility] [id number] [place] [id number] Oct, [facility] [place] [facility] [address] [facility] [id number] [place] [address]- 6088 Oct, [facility] [place] [facility] [address] [facility] [id number] [place] [address]- 6967 Sep, [facility] [address] [id number], [place] [id number] Sep, [facility] [address] [id number] [place] [id number] Aug, [facility] [place] [facility] [address] [facility] [id number] [place] [address]- 7492 Aug, [facility] [address] [facility] [id number] [place] [id number] July, [facility] [place] [facility] [address] [facility] [id number] [place] [address]- 3736 July, [facility] [address] [facility] [id number], [place] [id number] July, [facility] [place] [facility] [address] [facility] [id number] [place] [address]- 9036 July, [facility] [place] [facility] [address] [facility] [id number] [address]- 2546 July, [facility] [place] [facility] [address] [facility] [id number] [place] [address]- 5346 Jun, [facility] [address] [facility] [id number], [place] [id number] Jun, [facility] [address] [facility] [id number], [place] [id number] Jun, [facility] [place] [facility] [address] [facility] [id number] [place] [address]- 0736 Jun, [facility] [place] [facility] [address]00565100[place] [address]- 9076 Jun, [facility] [place] [facility] [address] [facility] [id number] [place] [address]- 3074 May, [facility] [address] [facility] [id number], [place] [id number] Apr, [facility] [place] [facility] [address] [id number] [address]- 3236 Apr, [facility] [address] [id number], [place] [id number] Apr, [facility] [place] [facility] [address] [facility] [id number] [place] [address]- 7082 Apr, [facility] [place] [facility] [address] [facility] [id number] [address] Mar, [facility] [place] [facility] [address] [facility] [id number] [place] [address] Mar, [facility] [place] [facility] [address] [facility] [id number] [place] [address] Mar, [facility] [address] [facility] [id number][place] [id number] Mar, [facility] [address] [facility] [id number] [address] Mar, [facility] [place] [facility] [address] [facility] [id number] [place] [address] Mar, [facility] [address] [facility] [id number] [place] [address] Feb, [facility] [address] [id number][place] [id number] Feb, [facility] [address] [facility] [id number] [place] [address] Feb, [facility] [address] [id number][place] [id number] Feb, [facility] [id number] [address] Feb, [facility] [address] [id number][place] [id number] Feb, [facility] [address] [id number] [address] Feb, [facility] [address] [id number][place] [id number] Jan, [facility] [address] [id number] [address] Jan, [facility] [place] [facility] [address] [facility] [id number] [place] [address] Dec, [facility] [address] [id number][place] [id number] Dec, [facility] [place] [facility] [address] [facility] [id number] [place] [address] Nov, [facility] [address] [id number][place] [id number] Oct, [facility] [address] [id number][place] [id number] Oct, [facility] [address] [id number] [place] [id number] Sep, [facility] [address] [id number] [place] [address] Sep, [facility] [address] [id number] [place] [id number] Sep, [facility] [address] [id number] [place] [id number] Sep, [facility] [address] [id number] [place] [id number] Sep, [facility] [address] [id number] [place] [id number] Sep, [facility] [address] [id number] [place] [id number] Sep, [facility] [address] [facility] [id number] [place] [address] Aug, [facility] [address] [id number] [place] [id number] Aug, [facility] [address] [facility] [id number] [place] [address] July, [facility] [place] [address] [id number] [place] [id number] July, [facility] [address] [facility] [id number] [address] July, [facility] [place] [address] [id number] [place] [id number] Jun, [facility] [place] [address] [id number][place] [id number] Jun, [facility] [place] [address] [id number] [place] [id number] Jun, [facility] [address] [facility] [id number] [place] [address] Jun, [facility] [place] [address] [id number] [place] [id number] May, [facility] [place] [address] [id number] [place] [id number] May, [facility] [place] [facility] [address] [facility] [id number] [place] [address] May, [facility] [place] [address] [facility] [id number] [place] [id number] Apr, [facility] [place] [facility] [address] [facility] [id number] [place] [address] Apr, [facility] [place] [address] [id number] [place] [id number] Apr, [facility] [place] [address] [id number] [place] [id number] Apr, [facility] [place] [facility] [address] [facility] [id number] [place] [address] Mar, [facility] [place] [address] [id number][place] [id number] Mar, [facility] [place] [address] [id number][place] [id number] Mar, [facility] [place] [address] [id number][place] [id number] Feb, [facility] [place] [facility] [address] [facility] [id number] [place] [address] Feb, [facility] [place] [address] [facility] [id number], [place] [id number] Jan, [facility] [place] [id number][place] [id number] Jan, [facility] [place] [facility] [id number] [address] Jan, [facility] [place] [facility] [address] [facility] [id number] [place] [address] Jan, [facility] [place] [address] [facility] [id number][place] [id number] Jan, [facility] [place] [facility] [address] [facility] [id number] [place] [address] Jan, [facility] [place] [address] [facility] [id number], [place] [id number] Dec, [facility] [place] [facility] [address] [facility] [id number] [place] [address] Dec, [facility] [place] [address] [id number] [place] [id number] Dec, [facility] [address] [facility] [id number] [place] [address] Dec, [facility] [place] [address] [id number] [place] [id number] Dec, [facility] [place] [address] [id number] [place] [id number] Nov, [facility] [place] [address] [id number] [place] [id number] Nov, [facility] [place] [address] [id number] [place] [id number] Oct, [facility] [place] [address] [id number] [place] [id number] Oct, [facility] [place] [address] [id number] [place] [id number] Sep, [facility] [place] [address] [id number] [place] [id number] Sep, [facility] [place] [address] [id number] [place] [id number] Sep, [facility] [place] [address] [id number] [place] [id number] Aug, [facility] [place] [address] [id number] [place] [id number] Aug, [facility] [place] [address] [id number] [place] [id number] July, [facility] [place] [address] [id number] [place] [id number] July, [facility] [place] [address] [id number] [place] [id number] July, [facility] [place] [address] [id number] [place] [id number] July, [facility] [address] [facility] [id number] [place] [address] Jun, [facility] [place] [address] [id number] [place] [id number] Jun, [facility] [place] [address] [id number] [place] [id number] Jun, [facility] [place] [address] [id number] [place] [id number] Jun, [facility] [place] [address] [id number] [place] [id number] May, [facility] [place] [address] [id number] [place] [id number] May, [facility] [place] [address] [id number] [place] [id number] Apr, [facility] [place] [address] [id number] [place] [id number] Apr, [facility] [place] [address] [id number] [place] [id number] Apr, [facility] [place] [address] [id number] [place] [id number] Apr, [facility] [place] [address] [id number] [place] [id number] Apr, [facility] [id number] [address] Apr, [facility] [place] [address] [id number] [place] [id number] Apr, [facility] [place] [address] [id number] [place] [id number] Apr, [facility] [place] [address] [id number] [place] [id number] Mar, [facility] [address] [id number] [address] Feb, [facility] [id number] [place] [address]- [address] Feb, [facility] [id number] [address] Feb, [facility] [address] [id number] [place] [address] 05 Feb, 2011 [facility] [place] [facility] [address] [id number] [place] [address] Jan, [facility] [place] [facility] [address] [id number] [place] [address] Jan, [facility] [place] [facility] [address] [id number] [place] [address]- [address] Jan, [facility] [place] [facility] [address] [id number] [place] [address] Dec, [facility] [place] [facility] [address] [id number] [place] [address]- [address] 24 Dec, 2010 [facility] [place] [facility] [address] [id number] [place] [address] Aug, [facility] [place] [facility] [address] [id number] [place] [address] Aug, [facility] [place] [facility] [address] [id number] [place] [address] Feb, [facility] [place] [facility] [address] [id number] [place] [address]- [address]79 Feb, [facility] [place] [facility] [address] [facility] [id number] [place] [address]- [address] Jan, [facility] [place] [facility] [address] [id number] [place] [address]- [address] Jan, [facility] [place] [facility] [address] [id number] [place] [address]- [address] Dec, [facility] [place] [facility] [address] [id number] [place] [address] Dec, [facility] [place] [facility] [address] [id number] [place] [address]- [address] Dec, [facility] [place] [facility] [address] [id number] [place] May, [facility] [address] [id number] [address] Mar, [facility] [id number] [address] Feb, [facility] [place] [id number] [address] Feb, [facility] [place] [id number] [address] Feb, [facility] [place] [id number] [address] Jan, [facility] [place] [id number] [address] Jan, [facility] [place] [id number] [address] Oct, [facility] [place] [id number] [address] July, [facility] [place] [id number] [address] Apr, [facility] [place] [id number] [address] Jan, [facility] [place] [address] [id number] [address]- [address] Jan, IMMUNIZATIONS No Known Immunizations SOCIAL HISTORY Never Assessed REASON FOR VISIT Levemir RX PLAN OF CARE VITAL SIGNS MEDICATIONS Medication [...] 01/2014 Hospitalization History surgeries, childbirth Hospitalization History [facility] [place]- Possible Stroke 05/16/2017
--- OUTSIDE RECORDS SUMMARY | 2017-09-20 06:31 | XMS REPORT ---
Author Author CATRACHITA MOLINA Organization [facility] Address [address] [place] [address] Care Team Providers Care Health Policy Nurse Name Role Phone CATRACHITA MOLINA Unavailable PROBLEMS Type Condition ICD9-CM Code XUK30-XX Code Onset Dates Condition Status SNOMED Code Problem RLS (restless legs syndrome) G25.81 Active 84603467 Problem Encounter for immunization Z23 Active 340343739 Problem Essential hypertension I10 Active 06507711 Problem Diabetes type 2, controlled E11.9 Active 65245799 Problem Diabetic polyneuropathy associated with type 2 diabetes mellitus E11.42 Active 30133900 Problem Other chronic pain G89.29 Active 81444209 Problem Hypoglycemia E16.2 Active 821495368 Problem Reactive depression F32.9 Active 43020190 Problem Type 2 diabetes mellitus with hyperglycemia E11.65 Active 152973863571297 Problem Spinal stenosis, unspecified spinal region M48.00 Active 91525842 Problem Type 2 diabetes mellitus with other specified complication E11.69 Active 93053375509799 Problem Hyperlipidemia, unspecified E78.5 Active 98990690 ALLERGIES No Information ENCOUNTERS Encounter Location Date Diagnosis [facility] [id number] [place] [address] [id number] July, [place] [id number] [address] [id number] July, Diabetic polyneuropathy associated with type 2 diabetes mellitus E11.42 ; Type 2 diabetes mellitus with hyperglycemia E11.65 ; RLS (restless legs syndrome ) G25.81 and Essential hypertension I10 [place] [id number] [address] [id number] July, Spinal stenosis, unspecified spinal region M48.00 [place] [id number], [place] [id number] July, [place] [id number] [place] [address] [id number] Jun, Type 2 diabetes mellitus with other specified complication E11.69 [facility] [id number], [place] [phone] Jun, Spinal stenosis, unspecified spinal region M48.00 [facility] [id number] [address] [id number] 05 Jun, 2017 Hypoglycemia E16.2 [facility] [address] [address] [id number] [address] [id number] May, Hypoglycemia E16.2 ; Acute cystitis with hematuria N30.01 and Essential hypertension I10 [facility] [address]00565[address] [id number] -[address] May, [facility] [id number] [place] [address] [id number] May, Spinal stenosis, unspecified spinal region M48.00 [facility] [id number] [place] [address] [id number] May, Reactive depression F32.9 [facility] [id number] [place] [address] [id number] May, [facility] [id number] [place] [address] [id number] Apr, [facility] [address] [id number], [place] [id number] Apr, [facility] [address] [id number], [place] [id number] Apr, [facility] [id number], [place] [phone] Apr, [facility] [id number] [place] [address] [id number] Apr, Spinal stenosis, unspecified spinal region M48.00 [facility] [id number] [address] [id number] 08 Apr, 2017 Type 2 diabetes mellitus with other specified complication E11.69 ; Spinal stenosis, unspecified spinal region M48.00 ; Reactive depression F32.9 and Essential hypertension I10 [facility] [address] [id number], [place] [phone] Apr, [facility] [address] [id number], [place] [id number] Mar, Spinal stenosis, unspecified spinal region M48.00 [facility] [address] [id number], [place] [id number] Feb, Acute non-recurrent maxillary sinusitis J01.00 and Essential hypertension I10 [facility] [id number] [address] [id number] Feb, Spinal stenosis, unspecified spinal region M48.00 [facility] [address] [id number], [place] [id number] Feb, Type 2 diabetes mellitus with other specified complication E11.69 [facility] [id number] [address] [id number] Feb, Type 2 diabetes mellitus with other specified complication E11.69 and Essential hypertension I10 [facility] [id number] [address] [id number] Feb, [facility] [id number] [address] [id number] Feb, [facility] [address] [id number] [address] [id number] Jan, Spinal stenosis, unspecified spinal region M48.00 [facility] [address] [id number] [address] [id number] Jan, Diabetic polyneuropathy associated with type 2 diabetes mellitus E11.42 [facility] [address] [id number], [place] [id number] Jan, Diabetic polyneuropathy associated with type 2 diabetes mellitus E11.42 [facility] [address] [id number], [place] [id number] Jan, Type 2 diabetes mellitus with hyperglycemia E11.65 ; Type 2 diabetes mellitus with other specified complication E11.69 ; Spinal stenosis, unspecified spinal region M48.00 and Essential hypertension I10 [facility] [id number] [place] [address] [id number] Jan, Diabetic polyneuropathy associated with type 2 diabetes mellitus E11.42 [facility] [address] [id number], [place] [id number] Dec, [facility] [address] [place] [address] [id number] [address] [id number] Dec, Diabetic polyneuropathy associated with type 2 diabetes mellitus E11.42 ; Type 2 diabetes mellitus with other specified complication E11.69 ; Hyperlipidemia, unspecified E78.5 ; Thyroid disorder E07.9 and Thyroid disorder screening Z13.29 [facility] [address] [address] [id number] [address] [id number] Dec, Diabetic polyneuropathy associated with type 2 diabetes mellitus E11.42 [facility] [address] [id number] [place] [address] 671574- 7466 17 Dec, 2016 Diabetic polyneuropathy associated with type 2 diabetes mellitus E11.42 [facility] [address] [address] [id number] [address] [id number] Dec, Spinal stenosis, unspecified spinal region M48.00 [facility] [address] [address] [id number] [place] [address] [id number] Dec, [facility] [id number] [address] [id number] 18 Nov, 2016 Diabetic polyneuropathy associated with type 2 diabetes mellitus E11.42 [facility] [id number] [address] [id number] 15 Nov, 2016 Other chronic pain G89.29 [facility] [id number] [address] [id number] 14 Nov, 2016 Spinal stenosis, unspecified spinal region M48.00 [facility] [address] [id number] [address] [id number] Oct, Spinal stenosis, unspecified spinal region M48.00 ; Essential hypertension I10 ; RLS (restless legs syndrome) G25.81 and Diabetic polyneuropathy associated with type 2 diabetes mellitus E11.42 [facility] [id number] [address] [id number] Oct, Spinal stenosis, unspecified spinal region M48.00 [facility] [id number] [address] [id number] Sep, Diabetic polyneuropathy associated with type 2 diabetes mellitus E11.42 ; RLS (restless legs syndrome) G25.81 ; Spinal stenosis, unspecified spinal region M48.00 and Essential hypertension I10 [facility] [address] [id number] [place] [id number] 14 Sep, 2016 [facility] [address] [id number] [place] [id number] Sep, Spinal stenosis, unspecified spinal region M48.00 [facility] [address] [id number] [place] [id number] Sep, [facility] [address] [id number] [place] [id number] Aug, Spinal stenosis, unspecified spinal region M48.00 [facility] [address] [address] July, [facility] [address] [address] [id number] [address] [id number] July, Spinal stenosis, unspecified spinal region M48.00 [facility] [address] [place] [address] [id number] [place] [address], [place] [id number] Jun, Type 2 diabetes mellitus with hyperglycemia E11.65 [facility] [id number] [address] [id number] Jun, Spinal stenosis, unspecified spinal region M48.00 [facility] [id number] [address] [id number] May, Spinal stenosis, unspecified spinal region M48.00 [facility] [address] [id number] [address] [id number] Apr, Spinal stenosis, unspecified spinal region M48.00 [facility] [address] [place] [id number] [place] [address] 37[address]- 3948 Mar, [facility] [address] [address] [id number] [address] [id number] Mar, Type 2 diabetes mellitus with hyperglycemia E11.65 ; RLS (restless legs syndrome) G25.81 and Spinal stenosis, unspecified spinal region M48.00 [facility] [address] [address]- 0[address] Mar, [facility] [address] [facility] [id number], [place] [id number] Mar, [facility] [address] [place] [address] [id number], [place] [id number] Mar, [facility] [address] [id number], [place] [id number] Feb, [facility] [address] [facility] [id number] [place] [address]- 25[address] Feb, [facility] [address] [id number], [place] [id number] Feb, [facility] [address] [id number], [place] [id number] Feb, [facility] [address] [address]- 25[address] Feb, [facility] [address] [place] [address]- 2546 Feb, [facility] [address] [facility] [id number], [place] [id number] Jan, [facility] [id number], [place] [id number] Dec, Diabetic polyneuropathy associated with type 2 diabetes mellitus E11.42 ; Other chronic pain G89.29 ; Essential hypertension I10 and Encounter for immunization Z23 [facility] [address] [id number], [place] [id number] Dec, [facility] [address] [facility] [id number] [place] [address]- 2546 Nov, [facility] [address] [id number], [place] [id number] Nov, [facility] [address] [id number], [place] [id number] Nov, Diabetes type 2, controlled E11.9 [facility] [address] [id number], [place] [id number] Nov, Diabetes type 2, controlled E11.9 ; Other chronic pain G89.29 ; Essential hypertension I10 ; Diabetic polyneuropathy associated with type 2 diabetes mellitus E11.42 and RLS (restless legs syndrome) G25.81 [facility] [address] [facility] [id number] [place] [address] 88700- 1647 Nov, [facility] [id number] [address] [id number] Oct, [facility] [address] [id number] [address] [address] [id number] Oct, [facility] [address] [id number] [address] [place] [address] [id number] Oct, [facility] [address] [facility] [id number] [place] [address] 35517 2542 Oct, [facility] [id number] [place] [address] [id number] Sep, [facility] [id number] [address] [id number] Sep, [facility] [address] [place] [id number] [place] [address] 67576- 7894 Sep, Dental examination Z01.20 [facility] [address] [place] [id number] [place] [address] 69329- 4262 Aug, [facility] [address] [place] [address] [id number] [address] [id number] Aug, [facility] [address] [id number] [place] [address] 28472- 5418 Aug, [facility] [address] [id number] [place] [address] 37634- 0451 July, [facility] [address] [id number] [place] [address]- 1905 July, [facility] [address] [id number] [place] [address] 24191- 2292 July, [facility] [address] [id number], [place] [id number] July, [facility] [address] [id number] [address] [id number] July, [facility] [address] [id number], [place] [id number] July, [facility] [address] [place] 53522628- 1163 July, [facility] [id number], [place] [id number] Jun, Diabetes type 2, controlled E11.9 [facility] [id number] [address] [id number] Jun, [facility] [address] [id number], [place] [id number] May, Diabetes type 1, uncontrolled E10.65 [facility] [address] [id number] [place] [id number] May, [facility] [address] [id number], [place] [id number] Apr, [facility] [address] [id number], [place] [id number] Apr, [facility] [address] [id number], [place] [id number] Mar, [facility] [address] [id number], [place] [id number] Mar, [facility] [address] [id number], [place] [id number] Mar, [facility] [address] [id number], [place] [id number] Mar, Diabetes type 1, uncontrolled E10.65 [facility] [address] [id number], [place] [id number] Feb, [facility] [address] [id number], [place] [id number] Feb, [facility] [address] [id number], [place] [id number] Feb, [facility] [address] [id number] [id number] Jan, [facility] [address] [id number], [place] [id number] Jan, Acute cystitis with hematuria N30.01 and Dysuria R30.0 [facility] [id number], [place] [id number] Jan, [facility] [address] [address] [id number] [place] [address] [id number] Dec, Gastroenteritis K52.9 and Headache, unspecified headache type R51 [facility] [id number] [place] [address] [id number] Dec, [facility] [id number] [place] [address] [id number] Dec, Chronic back pain 724.5 [facility] [address] [place] [address] [id number] Dec, [facility] [id number] [address] [id number] Nov, Chronic back pain 724.5 and Diabetes mellitus without mention of complication, type II or unspecified type, uncontrolled 250.02 [facility] [id number] [place] [address] [id number] Nov, [place] [id number] [place] [address] [id number] Oct, [place] [id number] [place] [address] [id number] Sep, Diabetes mellitus without mention of complication, type II or unspecified type, uncontrolled 250.02 and Urinary tract infection 599.[address], [place] [id number] July, [facility] [id number] [place] [address] 52290- 5926 Jun, [facility] [id number] [place] [address] 96953- 4525 Jun, [address] [place] [address] [id number] May, [facility] [address] [place] [address] 36642- 8178 May, [address] [place] [address] [id number] May, [facility] [place] [facility] [address] [id number] [place] [address]- 3402 May, [facility] [address] [id number] [place] [id number] Mar, [facility] [place] [facility] [address] [facility] [id number] [place] [address]- 0603 Mar, [facility] [place] [facility] [address] [facility] [id number] [place] [address]- 8578 Mar, [facility] [address] [id number] [place] [id number] Mar, [facility] [address] [id number] [place] [id number] Feb, [facility] [place] [facility] [address] [facility] [id number] [place] [address]- 8324 Feb, [facility] [address] [facility] [id number], [place] [id number] Feb, [facility] [place] [facility] [address] [facility] [id number] [place] [address]- 4987 Feb, [facility] [place] [facility] [address] [facility] [id number] [place] [address]- 9820 Feb, [facility] [address] [facility] [id number], [place] [id number] Feb, [facility] [address] [facility] [id number], [place] [id number] Feb, [facility] [place] [facility] [address] [facility] [id number] [place] [address]- 2102 Feb, [facility] [place] [facility] [address] [facility] [id number] [place] [address]- 4210 Feb, [facility] [address] [facility] [id number], [place] [id number] Jan, [facility] [place] [facility] [address] [facility] [id number] [place] [address]- 2826 Jan, [facility] [address] [id number], [place] [id number] Jan, [facility] [place] [facility] [address] [id number] [place] [address]- 2546 Jan, [facility] [address] [id number] [place] [id number] Dec, [facility] [place] [facility] [address] [facility] [id number] [place] [address]- 0286 Dec, [facility] [place] [facility] [address] [facility] [id number] [place] [address]- 3486 Dec, [facility] [place] [facility] [address] [facility] [id number] [place] [address]- 4455 Dec, [facility] [address] [facility] [id number], [place] [id number] Dec, [facility] [place] [facility] [address] [facility] [id number] [place] [address] 2546 Dec, [facility] [address] [facility] [id number], [place] [id number] Nov, [facility] [place] [facility] [address] [facility] [id number] [place] [address]- 5238 Nov, [facility] [address] [facility] [id number], [place] [id number] Oct, [facility] [place] [facility] [address] [facility] [id number] [place] [address]- 3706 Oct, [facility] [place] [facility] [address] [facility] [id number] [place] [address]- 2546 Sep, [facility] [address] [id number], [place] [id number] Sep, [facility] [address] [id number], [place] [id number] Aug, [facility] [place] [facility] [address] [facility] [id number] [place] [address]- 2546 Aug, [facility] [address] [id number], [place] [id number] July, [facility] [place] [facility] [address] [facility] [id number] [place] [address]- 6856 July, [facility] [address] [facility] [id number], [place] [id number] July, [facility] [place] [facility] [address] [id number] [place] [address]- 2036 July, [facility] [place] [facility] [address] [id number] [place] [address]- 3966 July, [facility] [place] [facility] [address] [facility] [id number] [place] [address]- 8816 Jun, [facility] [address] [facility] [id number], [place] [id number] Jun, [facility] [address] [facility] [id number], [place] [id number] Jun, [facility] [place] [facility] [address] [address]- 6716 Jun, [facility] [place] [facility] [address] [id number] [place] [address] Jun, [facility] [place] [facility] [address] [id number] [place] [address] May, [facility] [address] [id number][place] [id number] Apr, [facility] [place] [facility] [address] [id number] [place] [address] Apr, [facility] [address] [facility] [id number][place] [id number] Apr, [facility] [place] [facility] [address] [facility] [id number] [place] [address] Apr, [facility] [place] [facility] [address] [facility] [id number] [place] [address] Mar, [facility] [place] [facility] [address] [id number] [place] [address] Mar, [facility] [place] [facility] [address] [id number] [place] [address] Mar, [facility] [address] [id number][place] [id number] Mar, [facility] [address] [facility] [id number] [place] [address] Mar, [facility] [address] [facility] [id number] [place] [address] Mar, [facility] [address] [facility] [id number] [place] [address] Feb, [facility] [address] [id number][place] [id number] Feb, [facility] [address] [facility] [id number] [place] [address] Feb, [facility] [address] [id number], [place] [id number] Feb, [facility] [id number] [place] [address] Feb, [facility] [address] [id number], [place] [id number] Feb, [facility] [id number] [place] [address] Feb, [facility] [address] [id number], [place] [id number] Jan, [facility] [place] [facility] [id number] [place] [address] Jan, [facility] [place] [facility] [address] [facility] [id number] [place] [address] Dec, [facility] [address] [id number], [place] [id number] Dec, [facility] [place] [facility] [address] [facility] [id number] [place] [address] Nov, [facility] [address] [id number], [place] [id number] Oct, [facility] [address] [id number] [place] [id number] Oct, [facility] [address] [id number] [place] [id number] Sep, [facility] [address] [id number] [place] [id number] [address] Sep, [facility] [place] [address] [id number] [place] [id number] Sep, [facility] [place] [address] [id number] [place] [id number] Sep, [facility] [place] [address] [id number] [place] [id number] Sep, [facility] [place] [address] [id number] [place] [id number] Sep, [facility] [place] [address] [id number] [place] [id number] Sep, [facility] [id number] [place] [address] Aug, [facility] [place] [address] [id number] [place] [id number] Aug, [facility] [address] [facility] [id number] [place] [address] July, [facility] [place] [address] [id number] [place] [id number] July, [facility] [address] [facility] [id number] [place] [address] July, [facility] [place] [address] [id number] [place] [id number] Jun, [facility] [place] [address] [id number] [place] [id number] Jun, [facility] [place] [address] [id number] [place] [id number] Jun, [facility] [place] [facility] [address] [facility] [id number] [place] [address] Jun, [facility] [place] [address] [id number] [place] [id number] May, [facility] [place] [address] [id number] [place] [id number] May, [facility] [place] [facility] [address] [facility] [id number] [place] [address] May, [facility] [place] [address] [id number] [place] [id number] Apr, [facility] [place] [facility] [address] [facility] [id number] [place] [address] Apr, [facility] [place] [address] [id number] [place] [id number] Apr, [facility] [place] [address] [id number] [place] [id number] Apr, [facility] [place] [facility] [address] [facility] [id number] [place] [address] Mar, [facility] [place] [address] [id number] [place] [id number] Mar, [facility] [place] [address] [id number] [place] [id number] Mar, [facility] [place] [address] [id number] [place] [id number] Feb, [facility] [address] [place] [address] Feb, [facility] [place] [address] [id number] [place] [id number] Jan, [facility] [place] [address] [facility] [id number] [id number] Jan, [facility] [place] [facility] [address] [facility] [id number] [place] [address] Jan, [facility] [place] [facility] [id number] [place] [address] Jan, [facility] [place] [address] [facility] [id number][place] [id number] Jan, [facility] [place] [facility] [id number] [place] [address] Jan, [facility] [place] [address] [id number] [place] [id number] Dec, [facility] [address] [id number] [place] [address] 2546 Dec, [facility] [place] [address] [id number] [place] [id number] Dec, [facility] [address] [facility] [id number] [place] [address] Dec, [facility] [place] [address] [id number] [place] [id number] Dec, [facility] [place] [address] [id number] [place] [id number] Nov, [facility] [place] [address] [id number] [place] [id number] Nov, [facility] [place] [address] [id number] [place] [id number] Oct, [facility] [place] [address] [id number] [place] [id number] Oct, [facility] [place] [address] [id number] [place] [id number] Sep, [facility] [place] [address] [id number] [place] [id number] Sep, [facility] [place] [address] [id number] [place] [id number] Sep, [facility] [place] [address] [id number] [place] [id number] Aug, [facility] [place] [address] [id number] [place] [id number] Aug, [facility] [place] [address] [id number] [place] [id number] July, [facility] [place] [address] [id number] [place] [id number] July, [facility] [place] [address] [id number] [place] [id number] July, [facility] [place] [address] [id number][place] [id number] July, [facility] [address] [facility] [id number] [place] [address] Jun, [facility] [place] [address] [id number] [place] [id number] Jun, [facility] [place] [address] [id number] [place] [id number] Jun, [facility] [place] [address] [id number] [place] [id number] Jun, [facility] [place] [address] [id number] [place] [id number] May, [facility] [place] [address] [id number] [place] [address] May, [facility] [place] [address] [id number] [place] [id number] Apr, [facility] [place] [address] [id number] [place] [id number] Apr, [facility] [place] [address] [id number] [place] [id number] Apr, [facility] [place] [address] [id number] [place] [address] Apr, [facility] [place] [address] [id number] [place] [id number] Apr, [facility] [id number] [place] [address] Apr, [facility] [place] [address] [id number] [place] [id number] Apr, [facility] [place] [address] [id number] [place] [id number] Apr, [facility] [place] [id number] [id number] Mar, [facility] [address] [place] [place] [id number] [place] [id number]- [address] Feb, [facility] [id number] [place] [address] Feb, [facility] [id number] [place] [address]- [address] Feb, [facility] [place] [facility] [address] [id number] [place] [address]- [address] 05 Feb, 2011 [facility] [place] [facility] [address] [id number] [place] [address]- 46[address] Jan, [facility] [place] [facility] [address] [facility] [id number] [place] [address]- [address] Jan, [facility] [place] [facility] [address] [id number] [place] [address]- [address]175 Jan, [facility] [place] [facility] [address] [id number] [place] [address]- 1545 Dec, [facility] [place] [facility] [address] [id number] [place] [address]- [address] 24 Dec, 2010 [facility] [place] [facility] [address] [facility] [id number] [place] [address]- [address]192 Aug, [facility] [place] [facility] [address] [facility] [id number] [place] [address]- [address]053 Aug, [facility] [place] [facility] [address] [facility] [id number] [place] [address]- 1818 Feb, [facility] [place] [facility] [address] [facility] [id number] [place] [address]- 6266 Feb, [facility] [place] [facility] [address] [id number] [place] [address]- 9746 Jan, [facility] [place] [facility] [address] [id number] [place] [address]- 3421 Jan, [facility] [place] [facility] [address] [id number] [place] [address]- 6427 Dec, [facility] [place] [facility] [address] [facility] [id number] [place] [address]- 6914 Dec, [facility] [place] [facility] [address] [facility] [id number] [place] [address]- 5415 Dec, [facility] [place] [facility] [id number] [place] [address]- [address] May, [facility] [id number] [place] [address] Mar, [facility] [id number] [place] [address]- 6[address] Feb, [facility] [id number] [place] [address]- 4741 Feb, [facility] [id number] [place] [address]- 4207 Feb, [facility] [id number] [place] [address]- 7848 Jan, [facility] [id number] [place] [address]- 7265 Jan, [facility] [id number] [place] [address]- 2414 Oct, [facility] [id number] [place] [address]- 1131 July, [facility] [id number] [place] [address]- 89[address] Apr, [facility] [id number] [place] [address]- 7[address] Jan, [facility] [id number] [place] [address] Jan, IMMUNIZATIONS No Known Immunizations SOCIAL HISTORY Never Assessed REASON FOR VISIT PALS PLAN OF CARE VITAL SIGNS MEDICATIONS Unknown [...] History surgeries, childbirth Hospitalization History [facility]- Possible Stroke 05/16/2017
--- OUTSIDE RECORDS SUMMARY | 2017-09-20 06:31 | XMS REPORT ---
Author Author CATRACHITA MOLINA [facility] Address [address] [place] [address] Care Team Providers Care Sap Hana Architect Name Role Phone CATRACHITA MOLINA Unavailable PROBLEMS Type Condition ICD9-CM Code QIW75-AY Code Onset Dates Condition Status SNOMED Code Problem RLS (restless legs syndrome) G25.81 Active 48991485 Problem Encounter for immunization Z23 Active 944683429 Problem Essential hypertension I10 Active 11950742 Problem Diabetes type 2, controlled E11.9 Active 21929789 Problem Diabetic polyneuropathy associated with type 2 diabetes mellitus E11.42 Active 30802254 Problem Other chronic pain G89.29 Active 58342555 Problem Hypoglycemia E16.2 Active 341893574 Problem Reactive depression F32.9 Active 43328011 Problem Type 2 diabetes mellitus with hyperglycemia E11.65 Active 754208230040446 Problem Spinal stenosis, unspecified spinal region M48.00 Active 65250296 Problem Type 2 diabetes mellitus with other specified complication E11.69 Active 05357336482180 Problem Hyperlipidemia, unspecified E78.5 Active 01373570 ALLERGIES No Information ENCOUNTERS Encounter Location Date Diagnosis [facility] [address] [facility] [id number] [address] Aug, [facility] [id number], [place] [id number] Aug, Spinal stenosis, unspecified spinal region M48.00 [facility] [address] [id number][place] [id number] Aug, Spinal stenosis, unspecified spinal region M48.00 [facility] [id number], [place] [id number] July, [facility] [address] [id number], [place] 573808703 July, Diabetic polyneuropathy associated with type 2 diabetes mellitus E11.42 ; Type 2 diabetes mellitus with hyperglycemia E11.65 ; RLS (restless legs syndrome ) G25.81 and Essential hypertension I10 [facility] [id number], [place] [id number] July, Spinal stenosis, unspecified spinal region M48.00 [facility] [id number] [place] [address] [id number] July, [facility] [id number] [place] [address] [id number] Jun, Type 2 diabetes mellitus with other specified complication E11.69 [facility] [id number] [place] [address] [id number] Jun, Spinal stenosis, unspecified spinal region M48.00 [facility] [id number] [place] [address] [id number] 05 Jun, 2017 Hypoglycemia E16.2 [facility] [id number] [place] [address] [id number] May, Hypoglycemia E16.2 ; Acute cystitis with hematuria N30.01 and Essential hypertension I10 [facility] [address]00565100[place] [address] May, [facility] [id number] [place] [address] [id number] May, Spinal stenosis, unspecified spinal region M48.00 [facility] [id number] [place] [address] [id number] May, Reactive depression F32.9 [facility] [id number], [place] [id number] May, [facility] [id number], [place] 193957691 Apr, [facility] [address] [id number], [place] [id number] Apr, [facility] [address] [id number], [place] [id number] Apr, [facility] [id number], [place] [id number] Apr, [facility] [id number] [place] [address] [id number] Apr, Spinal stenosis, unspecified spinal region M48.00 [facility] [id number] [place] [address] [id number] Apr, Type 2 diabetes mellitus with other specified complication E11.69 ; Spinal stenosis, unspecified spinal region M48.00 ; Reactive depression F32.9 and Essential hypertension I10 [facility] [address] [id number], [place] [id number] Apr, [facility] [id number] [place] [address] [id number] Mar, Spinal stenosis, unspecified spinal region M48.00 [facility] [id number] [place] [address] [id number] Feb, Acute non-recurrent maxillary sinusitis J01.00 and Essential hypertension I10 [facility] [id number] [place] [address] [id number] Feb, Spinal stenosis, unspecified spinal region M48.00 [facility] [id number] [place] [address] [id number] Feb, Type 2 diabetes mellitus with other specified complication E11.69 [facility] [id number] [place] [address] [id number] Feb, Type 2 diabetes mellitus with other specified complication E11.69 and Essential hypertension I10 [facility] [address] [id number] [place] [address] [id number] Feb, [facility] [address] [id number] [place] [address] [id number] Feb, [facility] [address] [id number], [place] [id number] Jan, Spinal stenosis, unspecified spinal region M48.00 [facility] [address] [id number] [place] [address] [id number] 15 Jan, 2017 Diabetic polyneuropathy associated with type 2 diabetes mellitus E11.42 [facility] [address] [id number], [place] [id number] 14 Jan, 2017 Diabetic polyneuropathy associated with type 2 diabetes mellitus E11.42 [facility] [address] [id number], [place] [id number] Jan, Type 2 diabetes mellitus with hyperglycemia E11.65 ; Type 2 diabetes mellitus with other specified complication E11.69 ; Spinal stenosis, unspecified spinal region M48.00 and Essential hypertension I10 [facility] [id number], [place] [id number] Jan, Diabetic polyneuropathy associated with type 2 diabetes mellitus E11.42 [facility] [id number], [place] [id number] Dec, [facility] [id number] [place] [address] [id number] Dec, Diabetic polyneuropathy associated with type 2 diabetes mellitus E11.42 ; Type 2 diabetes mellitus with other specified complication E11.69 ; Hyperlipidemia, unspecified E78.5 ; Thyroid disorder E07.9 and Thyroid disorder screening Z13.29 [facility] [id number], [place] [id number] Dec, Diabetic polyneuropathy associated with type 2 diabetes mellitus E11.42 [facility] [address]00565100[place], [place] [address] Dec, Diabetic polyneuropathy associated with type 2 diabetes mellitus E11.42 [facility] [id number], [place] [id number] Dec, Spinal stenosis, unspecified spinal region M48.00 [facility] [id number], [place] [id number] Dec, [facility] [id number] [place] [address] [id number] 18 Nov, 2016 Diabetic polyneuropathy associated with type 2 diabetes mellitus E11.42 [facility] [id number], [place] [id number] 15 Nov, 2016 Other chronic pain G89.29 [facility] [id number] [place] [address] [id number] 14 Nov, 2016 Spinal stenosis, unspecified spinal region M48.00 [facility] [id number], [place] [id number] Oct, Spinal stenosis, unspecified spinal region M48.00 ; Essential hypertension I10 ; RLS (restless legs syndrome) G25.81 and Diabetic polyneuropathy associated with type 2 diabetes mellitus E11.42 [facility] [address] [id number] [place] [id number] Oct, Spinal stenosis, unspecified spinal region M48.00 [facility] [address] [id number] [place] [id number] Sep, Diabetic polyneuropathy associated with type 2 diabetes mellitus E11.42 ; RLS (restless legs syndrome) G25.81 ; Spinal stenosis, unspecified spinal region M48.00 and Essential hypertension I10 [facility] [address] [id number] [place] [id number] Sep, [facility] [address] [id number] [place] [address] [id number] Sep, Spinal stenosis, unspecified spinal region M48.00 [facility] [address] [id number] [place] [address] [id number] Sep, [facility] [address] [id number] [place] [address] [id number] Aug, Spinal stenosis, unspecified spinal region M48.00 [facility] [id number] [place] [address] July, [facility] [id number] [place] [address] [id number] July, Spinal stenosis, unspecified spinal region M48.00 [facility] [id number] [place] [address] [id number] Jun, Type 2 diabetes mellitus with hyperglycemia E11.65 [facility] [address] [id number] [place] [address] [id number] Jun, Spinal stenosis, unspecified spinal region M48.00 [facility] [address] [id number] [place] [address] [id number] May, Spinal stenosis, unspecified spinal region M48.00 [facility] [address] [id number] [place] [address] [id number] Apr, Spinal stenosis, unspecified spinal region M48.00 [facility] [address] [id number] [address] Mar, [facility] [id number] [place] [address] [id number] Mar, Type 2 diabetes mellitus with hyperglycemia E11.65 ; RLS (restless legs syndrome) G25.81 and Spinal stenosis, unspecified spinal region M48.00 [facility] [id number] [place] [address] 57568- 9863 Mar, [facility] [id number] [place] [address] [id number] Mar, [facility] [address]00565100[place], [place] [id number] Mar, [facility] [id number] [place] [address] [id number] Feb, [facility] [id number] [place] [address] 96[address]- 4906 Feb, [facility] [id number] [place] [address] [id number] Feb, [facility] [id number] [place] [address] [id number] Feb, [facility] [id number] [place] [address] 87970- 6376 Feb, [facility] [id number] [place] [address] 05701- 2952 Feb, [facility] [id number] [place] [address] [id number] Jan, [facility] [id number] [place] [address] [id number] Dec, Diabetic polyneuropathy associated with type 2 diabetes mellitus E11.42 ; Other chronic pain G89.29 ; Essential hypertension I10 and Encounter for immunization Z23 [facility] [id number] [place] [address] [id number] Dec, [facility] [id number] [place] [address] 08938 2543 Nov, [facility] [address] [id number], [place] [id number] Nov, [facility] [address] [id number] [place] [id number] 15 Nov, 2015 Diabetes type 2, controlled E11.9 [facility] [address] [id number] [place] [id number] 14 Nov, 2015 Diabetes type 2, controlled E11.9 ; Other chronic pain G89.29 ; Essential hypertension I10 ; Diabetic polyneuropathy associated with type 2 diabetes mellitus E11.42 and RLS (restless legs syndrome) G25.81 [facility] [address] [facility] [id number][place] 95948215- [address] Nov, [facility] [id number] [place] [address] [id number] Oct, [facility] [address] [id number], [place] [id number] Oct, [facility] [id number], [place] [id number] Oct, [facility] [address]00565100[place], [place] [address] Oct, [facility] [id number], [place] [id number] Sep, [facility] [id number], [place] [id number] Sep, [facility] [address]00565100[place], [place] [address] Sep, Dental examination Z01.20 [facility] [address]00565100[place], [place] [address] Aug, [facility] [id number], [place] [id number] Aug, [facility] [id number] [place] [address] 96796- 9248 Aug, [facility] [address]00565100[place], [place] [address] July, [facility] [address] [id number], [place] [address]- 2546 July, [facility] [address] [id number], [place] [address]- [address] July, [facility] [address] [id number], [place] [id number] July, [facility] [address] [id number], [place] [id number] July, [facility] [address] [id number] [place] [address] [id number] July, [facility] [address] [facility] [id number], [place] [address]- [address] July, [facility] [address] [id number] [place] [address] [id number] Jun, Diabetes type 2, controlled E11.9 [facility] [address] [id number] [place] [address] [id number] Jun, [facility] [id number] [place] [address] [id number] May, Diabetes type 1, uncontrolled E10.65 [facility] [address] [id number] [place] [id number] May, [facility] [id number] [place] [address] [id number] Apr, [facility] [address] [id number], [place] [id number] Apr, [facility] [address] [id number], [place] [id number] Mar, [facility] [address] [id number], [place] [id number] Mar, [facility] [address] [id number] [place] [id number] Mar, [facility] [address] [id number] [place] [id number] Mar, Diabetes type 1, uncontrolled E10.65 [facility] [address] [id number], [place] [id number] Feb, [facility] [address] [id number], [place] 690310186 Feb, [facility] [address] [id number], [place] [id number] Feb, [facility] [id number][place] [id number] Jan, [facility] [address] [facility] [id number], [place] [id number] Jan, Dysuria R30.0 and Acute cystitis with hematuria N30.01 [facility] [id number], [place] [id number] Jan, [facility] [id number] [place] [address] [id number] Dec, Gastroenteritis K52.9 and Headache, unspecified headache type R51 [facility] [id number], [place] [id number] Dec, [facility] [id number] [place] [address] [id number] Dec, Chronic back pain 724.5 [facility] [address] [id number] [id number] Dec, [facility] [id number] [place] [address] [id number] Nov, Chronic back pain 724.5 and Diabetes mellitus without mention of complication, type II or unspecified type, uncontrolled 250.02 [facility] [address] [facility] [id number], [place] 744823032 Nov, [facility] [id number], [place] 445934931 Oct, [facility] [address] [id number], [place] 637723893 Sep, Diabetes mellitus without mention of complication, type II or unspecified type, uncontrolled 250.02 and Urinary tract infection 599.0 [facility] [address] [id number], [place] [id number] July, [facility] [address]00565100[place], [place] 91275769- 8096 Jun, [facility] [place] [facility] [address] [facility] [id number], [place] [address]- 2534 Jun, [facility] [address] [facility] [id number] [place] [id number] May, [facility] [place] [facility] [address] [facility] [id number], [place] [address]- 8106 May, [facility] [address] [facility] [id number], [place] [id number] May, [facility] [place] [facility] [address] [facility] [id number], [place] [address]- [address]40 May, [facility] [address] [facility] [id number], [place] [id number] Mar, [facility] [place] [facility] [address] [facility] [id number], [place] [address]- 7270 Mar, [facility] [place] [facility] [address] [facility] [id number], [place] [address]- 7405 Mar, [facility] [address] [facility] [id number], [place] [id number] Mar, [facility] [address] [facility] [id number], [place] [id number] Feb, [facility] [place] [facility] [address] [facility] [id number], [place] [address]- 6484 Feb, [facility] [address] [facility] [id number], [place] [id number] Feb, [facility] [place] [facility] [address] [facility] [id number], [place] [address]- 0221 Feb, [facility] [place] [facility] [address] [facility] [id number], [place] [address]- 3818 Feb, [facility] [address] [facility] [id number], [place] [id number] Feb, [facility] [address] [facility] [id number], [place] [id number] Feb, [facility] [place] [facility] [address] [facility] [id number], [place] [address]- 1066 Feb, [facility] [place] [facility] [address] [facility] [id number], [place] [address]- 2546 Feb, [facility] [address] [facility] [id number] [place] [id number] Jan, [facility] [place] [facility] [address] [facility] [id number] [place] [address]- 2546 Jan, [facility] [address] [facility] [id number] [place] [id number] Jan, [facility] [place] [facility] [address] [facility] [id number] [place] [address]- 2546 Jan, [facility] [address] [facility] [id number], [place] [id number] Dec, [facility] [place] [facility] [address] [facility] [id number], [place] [address]- 2546 Dec, [facility] [place] [facility] [address] [id number] [place] [address]- 9836 Dec, [facility] [place] [facility] [address] [facility] [id number], [place] [address]- 1176 Dec, [facility] [address] [facility] [id number], [place] [id number] Dec, [facility] [place] [facility] [address] [facility] [id number], [place] [address]- 2546 Dec, [facility] [address] [facility] [id number], [place] [id number] Nov, [facility] [place] [facility] [address] [facility] [id number], [place] [address]- 2546 Nov, [facility] [address] [facility] [id number], [place] [id number] Oct, [facility] [place] [facility] [address] [facility] [id number], [place] [address]- 8156 Oct, [facility] [place] [facility] [address] [facility] [id number], [place] [address]- 2546 Sep, [facility] [address] [facility] [id number], [place] 932737222 Sep, [facility] [address] [id number] [place] [id number] Aug, [facility] [place] [facility] [address] [id number] [place] [address]- 2546 Aug, [facility] [address] [id number] [place] [id number] July, [facility] [place] [facility] [address] [facility] [id number] [place] [address] 2546 July, [facility] [address] [id number] [place] [id number] July, [facility] [place] [facility] [address] [facility] [id number] [place] [address]- 2416 July, [facility] [place] [facility] [address] [id number] [place] [address] July, [facility] [place] [facility] [id number] [place] [address] Jun, [facility] [address] [id number] [place] [id number] Jun, [facility] [address] [id number] [place] [id number] Jun, [facility] [place] [facility] [address] [id number] [address] Jun, [facility] [place] [facility] [id number] [address] Jun, [facility] [place] [facility] [address] [facility] [id number] [address] May, [facility] [address] [id number] [place] [id number] Apr, [facility] [place] [facility] [address] [facility] [id number] [place] [address] Apr, [facility] [address] [id number] [place] [id number] Apr, [facility] [place] [facility] [address] [id number] [address] Apr, [facility] [address] [facility] [id number] [place] [address] Mar, [facility] [address] [facility] [id number] [place] [address] Mar, [facility] [address] [facility] [id number] [place] [address] Mar, [facility] [address] [facility] [id number][place] [id number] Mar, [facility] [address] [facility] [id number] [place] [address] Mar, [facility] [address] [facility] [id number] [place] [address] Mar, [facility] [address] [facility] [id number] [place] [address] Feb, [facility] [address] [facility] [id number][place] [id number] Feb, [facility] [address] [facility] [id number], [place] [address] Feb, [facility] [address] [facility] [id number][place] [id number] Feb, [facility] [address] [facility] [id number], [place] [address] Feb, [facility] [address] [facility] [id number][place] [id number] Feb, [facility] [address] [facility] [id number], [place] [address] Feb, [facility] [address] [facility] [id number][place] [id number] Jan, [facility] [address] [facility] [id number], [place] [address] Jan, [facility] [address] [facility] [id number], [place] [address] Dec, [facility] [address] [id number] [place] [id number] Dec, [facility] [place] [facility] [address] [facility] [id number], [place] [address] Nov, [facility] [address] [id number] [place] [id number] Oct, [facility] [address] [id number] [place] [id number] Oct, [facility] [address] [id number] [place] [id number] Sep, [facility] [place] [facility] [address] [facility] [id number] [place] [address] Sep, [facility] [address] [id number] [place] [id number] Sep, [facility] [address] [id number] [place] [id number] Sep, [facility] [address] [id number] [place] [address] Sep, [facility] [address] [id number] [place] [id number] Sep, [facility] [address] [id number] [place] [id number] Sep, [facility] [place] [address] [facility] [id number], [place] [address] Aug, [facility] [address] [id number] [place] [id number] Aug, [facility] [place] [facility] [address] [facility] [id number], [place] [address] July, [facility] [address] [id number] [place] [id number] July, [facility] [place] [facility] [address] [facility] [id number], [place] [address] July, [facility] [address] [id number] [place] [id number] Jun, [facility] [address] [id number] [place] [id number] Jun, [facility] [address] [id number] [place] [id number] Jun, [facility] [place] [facility] [address] [facility] [id number], [place] [address] Jun, [facility] [address] [id number] [place] [id number] May, [facility] [address] [id number][place] [id number] May, [facility] [place] [facility] [address] [facility] [id number], [place] [address] May, [facility] [address] [id number][place] [id number] Apr, [facility] [place] [facility] [id number], [place] [address] Apr, [facility] [address] [id number][place] [address] Apr, [facility] [address] [id number][place] [id number] Apr, [facility] [place] [id number], [place] [address] Mar, [facility] [address] [id number][place] [id number] Mar, [facility] [address] [id number][place] [id number] Mar, [facility] [address] [id number][place] [id number] Feb, [facility] [place] [facility] [address] [facility] [id number], [place] [address] Feb, [facility] [address] [facility] [id number][place] [address] Jan, [facility] [address] [id number][place] [id number] Jan, [facility] [place] [facility] [id number], [place] [address] Jan, [facility] [address] [id number], [place] [address] Jan, [facility] [address] [id number][place] [id number] Jan, [facility] [address] [facility] [id number][place] Jan, [facility] [address] [id number][place] [address]39[address] Dec, [facility] [address] [id number], [place] [address] Dec, [facility] [address] [id number][place] [id number] Dec, [facility] [address] [facility] [id number][place] [address] Dec, [facility] [address] [id number], [place] [id number] Dec, [facility] [address] [id number], [place] [id number] Nov, [facility] [address] [id number][place] [id number] Nov, [facility] [address] [id number], [place] [address] Oct, [facility] [address] [id number], [place] [id number] Oct, [facility] [address] [id number], [place] [id number] Sep, [facility] [address] [id number], [place] [id number] Sep, [facility] [address] [id number], [place] [address] Sep, [facility] [address] [id number], [place] [address] Aug, [facility] [address] [id number], [place] [id number] Aug, [facility] [address] [id number] [place] [address] July, [facility] [address] [id number] [place] [id number] July, [facility] [address] [id number] [id number] July, [facility] [address] [id number] [place] [id number] July, [facility] [id number] [address] Jun, [facility] [address] [id number] [place] [address] Jun, [facility] [address] [id number] [place] [id number] Jun, [facility] [address] [id number] [place] [id number] Jun, [facility] [address] [id number] [place] [address] May, [facility] [address] [id number] [place] [address] May, [facility] [address] [id number] [place] [id number] Apr, [facility] [address] [id number] [place] [address] Apr, [facility] [address] [id number] [place] [address] Apr, [facility] [address] [id number] [id number] Apr, [facility] [address] [id number] [place] [id number] Apr, [facility] [address] [facility] [id number], [place] [address] Apr, [facility] [address] [id number] [place] [id number] Apr, [facility] [address] [id number] [place] [id number] Apr, [facility] [address] [id number] [place] [id number] Mar, [facility] [address] [id number] [place] [address] Feb, [facility] [place] [facility] [address] [id number] [place] [address]- [address] Feb, [facility] [address] [id number] [place] [address]- 65[address] Feb, [facility] [place] [facility] [address] [id number] [place] [address]- 7491 Feb, [facility] [place] [facility] [address] [id number] [place] [address]- 7924 Jan, [facility] [place] [facility] [address] [id number] [place] [address]- 2662 Jan, [facility] [place] [facility] [address] [id number] [place] [address]- [address] Jan, [facility] [address] [id number] [place] [address]- [address] Dec, [facility] [place] [facility] [address] [id number] [place] [address]- [address]39 Dec, [facility] [address] [facility] [id number] [place] [address]- 8768 Aug, [facility] [place] [facility] [address] [id number] [place] [address]- 5679 Aug, [facility] [place] [facility] [address] [id number] [place] [address]- [address]158 Feb, [facility] [place] [facility] [address] [id number] [place] [address]- 8810 Feb, [facility] [place] [facility] [address] [facility] [id number] [place] [address] Jan, [facility] [place] [facility] [address] [id number] [place] [address]- 1558 Jan, [facility] [address] [facility] [id number], [place] [address]- [address]65 Dec, [facility] [address] [facility] [id number], [place] [address]- [address] Dec, [facility] [address] [facility] [id number], [place] [address]- 2779 Dec, [facility] [address] [facility] [id number], [place] [address]- 6[address] May, [facility] [address] [facility] [id number], [place] [address]- [address] Mar, [facility] [address] [facility] [id number], [place] [address]- 2568 Feb, [facility] [id number], [place] [address] Feb, [facility] [id number], [place] [address] Feb, [facility] [address] [id number], [place] [address] Jan, [facility] [id number], [place] [address]- [address] Jan, [facility] [id number], [place] [address]- [address] Oct, [facility] [address] [id number], [place] [address]- [address] July, [facility] [address] [facility] [id number], [place] [address]- 0412 Apr, [facility] [id number], [place] [address]- [address] Jan, [facility] [address] [id number], [place] [address]- [address]01 Jan, IMMUNIZATIONS No Known Immunizations SOCIAL HISTORY Never Assessed REASON FOR VISIT RX-Hydrocodone refill PLAN OF CARE VITAL SIGNS MEDICATIONS Medication Instructions Dosage Frequency Start Date End Date Duration Status Hydrocodone-Acetaminophen 7.5-325 MG Orally every 4-6 hrs PRN 1 tablet Mar, 0 days Active RESULTS No Results PROCEDURES No Known [...] Hospitalization History surgeries, childbirth Hospitalization History [facility] [place]- Possible Stroke 05/16/2017
--- OUTSIDE RECORDS SUMMARY | 2017-09-20 06:32 | XMS REPORT ---
Author Author CATRACHITA MOLINA Organization [facility] Address [address] [place] [address] Care Team Providers Care Lamps Tester And Inspector Name Role Phone CATRACHITA MOLINA Unavailable PROBLEMS Type Condition ICD9-CM Code PYI27-IB Code Onset Dates Condition Status SNOMED Code Problem RLS (restless legs syndrome) G25.81 Active 01310593 Problem Encounter for immunization Z23 Active 271780928 Problem Essential hypertension I10 Active 22561822 Problem Diabetes type 2, controlled E11.9 Active 90905279 Problem Diabetic polyneuropathy associated with type 2 diabetes mellitus E11.42 Active 45449192 Problem Other chronic pain G89.29 Active 10428140 Problem Hypoglycemia E16.2 Active 348732530 Problem Reactive depression F32.9 Active 88746669 Problem Type 2 diabetes mellitus with hyperglycemia E11.65 Active 184747174903534 Problem Spinal stenosis, unspecified spinal region M48.00 Active 11847569 Problem Type 2 diabetes mellitus with other specified complication E11.69 Active 50559414082910 Problem Hyperlipidemia, unspecified E78.5 Active 29475741 ALLERGIES No Known Allergies ENCOUNTERS Encounter Location Date Diagnosis [facility] [id number] [id number] Jun, [facility] [id number] [place] [address] [id number] 05 Jun, 2017 Hypoglycemia E16.2 [facility] [id number] [place] [address] [phone] May, Hypoglycemia E16.2 ; Acute cystitis with hematuria N30.01 and Essential hypertension I10 [facility] [address] [id number], [place] [address] 15 May, 2017 [facility] [id number] [place] [address] [phone] May, Spinal stenosis, unspecified spinal region M48.00 [facility] [address] [id number] [id number] May, Reactive depression F32.9 [facility] [place] [id number][place] [id number] May, [facility] [place] [id number], [place] [id number] Apr, [facility] [address] [id number][place] [phone] Apr, [facility] [address] [id number][place] [phone] Apr, [facility] [place] [id number], [place] [phone] Apr, [facility] [place] [id number] [place] [address] [phone] Apr, Spinal stenosis, unspecified spinal region M48.00 [facility] [place] [id number] [place] [address] [phone] Apr, Type 2 diabetes mellitus with other specified complication E11.69 ; Spinal stenosis, unspecified spinal region M48.00 ; Reactive depression F32.9 and Essential hypertension I10 [facility] [address] [id number][place] [id number] Apr, [facility] [place] [id number], [place] [phone] Mar, Spinal stenosis, unspecified spinal region M48.00 [facility] [place] [id number], [place] [id number] Feb, Acute non-recurrent maxillary sinusitis J01.00 and Essential hypertension I10 [facility] [place] [id number], [place] [id number] Feb, Spinal stenosis, unspecified spinal region M48.00 [facility] [place] [id number] [place] [address] [id number] Feb, Type 2 diabetes mellitus with other specified complication E11.69 [facility] [place] [id number], [place] [id number] Feb, Type 2 diabetes mellitus with other specified complication E11.69 and Essential hypertension I10 [facility] [address] [id number], [place] [phone] Feb, [facility] [place] [id number], [place] [id number] Feb, [facility] [place] [id number], [place] [id number] Jan, Spinal stenosis, unspecified spinal region M48.00 [facility] [place] [id number], [place] [phone] Jan, Diabetic polyneuropathy associated with type 2 diabetes mellitus E11.42 [facility] [place] [id number], [place] [id number] Jan, Diabetic polyneuropathy associated with type 2 diabetes mellitus E11.42 [facility] [place] [id number], [place] [id number] Jan, Type 2 diabetes mellitus with hyperglycemia E11.65 ; Type 2 diabetes mellitus with other specified complication E11.69 ; Spinal stenosis, unspecified spinal region M48.00 and Essential hypertension I10 [facility] [place] [id number], [place] [id number] Jan, Diabetic polyneuropathy associated with type 2 diabetes mellitus E11.42 [facility] [place] [id number], [place] [id number] Dec, [facility] [place] [id number], [place] [id number] Dec, Diabetic polyneuropathy associated with type 2 diabetes mellitus E11.42 ; Type 2 diabetes mellitus with other specified complication E11.69 ; Hyperlipidemia, unspecified E78.5 ; Thyroid disorder E07.9 and Thyroid disorder screening Z13.29 [facility] [place] [id number], [place] [id number] Dec, Diabetic polyneuropathy associated with type 2 diabetes mellitus E11.42 [facility] [address] [id number] [address] Dec, Diabetic polyneuropathy associated with type 2 diabetes mellitus E11.42 [facility] [id number], [place] 8[address]2217 Dec, Spinal stenosis, unspecified spinal region M48.00 [facility] [address] [id number], [place] [id number] Dec, [facility] [id number] [place] [address] [id number] 18 Nov, 2016 Diabetic polyneuropathy associated with type 2 diabetes mellitus E11.42 [facility] [address] [id number] [place] [address] [id number] 15 Nov, 2016 Other chronic pain G89.29 [facility] [address] [id number] [place] [address] [id number] 14 Nov, 2016 Spinal stenosis, unspecified spinal region M48.00 [facility] [address] [id number] [place] [address] [id number] 16 Oct, 2016 Spinal stenosis, unspecified spinal region M48.00 ; Essential hypertension I10 ; RLS (restless legs syndrome) G25.81 and Diabetic polyneuropathy associated with type 2 diabetes mellitus E11.42 [facility] [address] [id number] [place] [address] [id number] Oct, Spinal stenosis, unspecified spinal region M48.00 [facility] [address] [id number], [place] [id number] Sep, Diabetic polyneuropathy associated with type 2 diabetes mellitus E11.42 ; RLS (restless legs syndrome) G25.81 ; Spinal stenosis, unspecified spinal region M48.00 and Essential hypertension I10 [facility] [address] [id number], [place] [id number] Sep, [facility] [address] [id number], [place] [id number] Sep, Spinal stenosis, unspecified spinal region M48.00 [facility] [address] [id number], [place] [id number] Sep, [facility] [address] [id number], [place] [id number] Aug, Spinal stenosis, unspecified spinal region M48.00 [facility] [address]00565100[place], [place] 42230175- [address] July, [facility] [id number] [place] [address] [id number] July, Spinal stenosis, unspecified spinal region M48.00 [facility] [address] [id number], [place] 938792435 Jun, Type 2 diabetes mellitus with hyperglycemia E11.65 [facility] [address] [id number], [place] [id number] Jun, Spinal stenosis, unspecified spinal region M48.00 [facility] [address] [id number] [place] [address] [id number] May, Spinal stenosis, unspecified spinal region M48.00 [facility] [address] [id number] [place] [address] [id number] Apr, Spinal stenosis, unspecified spinal region M48.00 [facility] [address]00565100[place], [place] [address] Mar, [facility] [id number] [place] [address] [id number] Mar, Type 2 diabetes mellitus with hyperglycemia E11.65 ; RLS (restless legs syndrome) G25.81 and Spinal stenosis, unspecified spinal region M48.00 [facility] [id number] [place] [address]- 8294 Mar, [facility] [id number], [place] [id number] Mar, [facility] [address] [id number], [place] [phone] Mar, [facility] [address] [facility] [id number], [place] [id number] Feb, [facility] [id number] [place] [address] [id number]- 9090 Feb, [facility] [id number], [place] [id number] Feb, [facility] [id number], [place] [id number] Feb, [facility] [id number] [place] [address] [phone]- 2073 Feb, [facility] [id number] [place] [address] 69883- 5982 Feb, [facility] [id number] [place] [address] [id number] Jan, [facility] [id number] [place] [address] [id number] Dec, Diabetic polyneuropathy associated with type 2 diabetes mellitus E11.42 ; Other chronic pain G89.29 ; Essential hypertension I10 and Encounter for immunization Z23 [facility] [id number] [place] [address] [phone] Dec, [facility] [id number] [place] [address] [phone] Nov, [facility] [id number] [place] [address] [phone] Nov, [facility] [id number] [place] [address] [id number] Nov, Diabetes type 2, controlled E11.9 [facility] [id number] [place] [address] [id number] Nov, Diabetes type 2, controlled E11.9 ; Other chronic pain G89.29 ; Essential hypertension I10 ; Diabetic polyneuropathy associated with type 2 diabetes mellitus E11.42 and RLS (restless legs syndrome) G25.81 [facility] [id number] [place] [address] 65306- 2697 Nov, [facility] [id number] [place] [address] [id number] Oct, [facility] [id number] [place] [address] [id number] Oct, [facility] [id number] [place] [address] [id number] Oct, [facility] [id number] [place] [address] 72656- 2423 Oct, [facility] [id number] [place] [address] [id number] Sep, [facility] [address] [id number], [place] [id number] Sep, [facility] [place] [facility] [address] [facility] [id number], [place] [phone]- 5831 Sep, Dental examination Z01.20 [facility] [place] [facility] [address] [facility] [id number], [place] [address]- [address] Aug, [facility] [address] [facility] [id number], [place] [id number] Aug, [facility] [address] [facility] [id number] [place] [address] [id number]- 4766 Aug, [facility] [address] [facility] [id number] [place] [address] [phone]- 2382 July, [facility] [place] [address] [id number], [place] [address] July, [facility] [place] [facility] [address]00565100[place], [place] [address] July, [facility] [id number], [place] [phone] July, [facility] [address] [id number], [place] [id number] July, [facility] [id number] [place] [address] [id number] July, [facility] [place] [facility] [address]00565100[place], [place] [address] 2546 July, [facility] [address] [id number], [place] [phone] Jun, Diabetes type 2, controlled E11.9 [facility] [address] [id number], [place] [id number] Jun, [facility] [address] [id number] [place] [address] [id number] May, Diabetes type 1, uncontrolled E10.65 [facility] [address] [id number], [place] [id number] May, [facility] [id number] [place] [address] [id number] Apr, [facility] [place] [address] [id number], [place] [phone] Apr, [facility] [place] [address] [id number], [place] [id number] Mar, [facility] [place] [address] [id number], [place] [phone] Mar, [facility] [place] [address] [id number], [place] [id number] Mar, [facility] [place] [address] [id number], [place] [id number] Mar, Diabetes type 1, uncontrolled E10.65 [facility] [place] [id number], [place] [id number] Feb, [facility] [place] [address] [id number], [place] [id number] Feb, [facility] [id number], [place] [id number] Feb, [address] [id number], [place] [phone] Jan, [facility] [address] [facility] [id number], [place] [id number] Jan, Dysuria R30.0 and Acute cystitis with hematuria N30.01 [facility] [id number], [place] [id number] Jan, [facility] [id number], [place] [id number] Dec, Gastroenteritis K52.9 and Headache, unspecified headache type R51 [facility] [address] [facility] [id number], [place] [id number] Dec, [facility] [address] [facility] [id number], [place] [id number] Dec, Chronic back pain 724.5 [facility] [place] [id number] SPRINGS[place] [phone] Dec, [facility] [address] [facility] [id number], [place] [id number] Nov, Chronic back pain 724.5 and Diabetes mellitus without mention of complication, type II or unspecified type, uncontrolled 250.02 [facility] [address] [id number] [place] [phone] Nov, [facility] [address] [id number] [place] [id number] Oct, [facility] [address] [id number] [place] [id number] Sep, Diabetes mellitus without mention of complication, type II or unspecified type, uncontrolled 250.02 and Urinary tract infection 599.0 [facility] [address] [id number], [place] [phone] July, [facility] [id number] [place] [address] 00827- 2546 Jun, [facility] [id number] [place] [address] 81390- 8486 Jun, [facility] [id number], [place] [id number] May, [facility] [address] [place] [address] 17380- 3566 May, [facility] [id number], [place] [id number] May, [facility] [place] [facility] [id number] [place] [address] 09371- 9186 May, [facility] [id number], [place] [id number] Mar, [facility] [address]00565100[place], [place] [address]- 2546 Mar, [facility] [place] [facility] [address]00565100[place], [place] [address]- 2546 Mar, [facility] [id number], [place] [id number] Mar, [facility] [address] [id number], [place] [id number] Feb, [facility] [id number] [place] [address] 92815- 2896 Feb, [facility] [address] [id number] [place] [id number] Feb, [facility] [place] [facility] [address] [id number] [place] [address] 2546 Feb, [facility] [place] [facility] [address] [facility] [id number] [place] [address]- 2546 Feb, [facility] [address] [id number] [place] [id number] Feb, [facility] [address] [id number] [place] [id number] Feb, [facility] [place] [facility] [address] [facility] [id number] [place] [address]- 2546 Feb, [facility] [place] [facility] [address] [facility] [id number] [place] [address]- 8796 Feb, [facility] [address] [facility] [id number], [place] [id number] Jan, [facility] [place] [facility] [address] [id number], [place] [address]- 8183 Jan, [facility] [address] [facility] [id number], [place] [id number] Jan, [facility] [place] [facility] [address] [facility] [id number], [place] [address]- 0378 Jan, [facility] [address] [id number], [place] [id number] Dec, [facility] [address] [facility] [id number], [place] [address]- 4974 Dec, [facility] [facility] [address] [facility] [id number], [place] [address]- 9399 Dec, [facility] [place] [facility] [address] [facility] [id number], [place] [address]- 4346 Dec, [facility] [address] [facility] [id number], [place] [id number] Dec, [facility] [facility] [address] [facility] [id number], [place] [address]- 2546 Dec, [facility] [address] [id number] [place] [id number] Nov, [facility] [place] [facility] [address] [facility] [id number] [place] [address] 2546 Nov, [facility] [address] [id number] [place] [id number] Oct, [facility] [facility] [address] [facility] [id number] [place] [address]- 8656 Oct, [facility] [place] [facility] [address] [id number] [place] [address]- 2546 Sep, [facility] [address] [id number] [place] [id number] Sep, [facility] [address] [facility] [id number] [place] [id number] Aug, [facility] [facility] [address] [facility] [id number], [place] [address]- 4166 Aug, [facility] [address] [facility] [id number] [place] [id number] July, [facility] [place] [facility] [address] [facility] [id number] [place] [address]- 3846 July, [facility] [address] [facility] [id number] [place] [id number] July, [facility] [place] [facility] [address] [facility] [id number], [place] [address] 2546 July, [facility] [place] [facility] [address] [facility] [id number], [place] [address]- 2546 July, [facility] [facility] [address] [facility] [id number] [place] [address]- 2546 Jun, [facility] [address] [id number] [place] [id number] Jun, [facility] [address] [id number] [place] [id number] Jun, [facility] [place] [facility] [address] [facility] [id number], [place] [address]- 8656 Jun, [facility] [address] [facility] [id number], [place] [address] Jun, [facility] [address] [facility] [id number], [place] [address] May, [facility] [address] [facility] [id number][place] [id number] Apr, [facility] [address] [facility] [id number], [place] [address] Apr, [facility] [address] [facility] [id number][place] [id number] Apr, [facility] [address] [facility] [id number], [place] [address] Apr, [facility] [id number], [place] [address] Mar, [facility] [address] [facility] [id number], [place] [address] Mar, [facility] [address] [id number], [place] [address] Mar, [facility] [address] [id number] [id number] Mar, [facility] [address] [facility] [id number], [place] [address] Mar, [facility] [address] [facility] [id number], [place] [address] Mar, [facility] [address] [facility] [id number], [place] [address] Feb, [facility] [address] [facility] [id number][place] [id number] Feb, [facility] [place] [facility] [address] [facility] [id number], [place] [address] Feb, [facility] [address] [facility] [id number] [place] [id number] Feb, [facility] [address] [facility] [id number] [place] [address] Feb, [facility] [address] [id number] [place] [id number] Feb, [facility] [place] [facility] [address] [facility] [id number], [place] [address] Feb, [facility] [address] [id number] [place] [id number] Jan, [facility] [place] [facility] [address] [facility] [id number] [place] [address] Jan, [facility] [place] [facility] [address] [facility] [id number] [place] [address] Dec, [facility] [address] [id number] [place] [id number] Dec, [facility] [address] [facility] [id number], [place] [address] Nov, [facility] [address] [id number] [place] [id number] Oct, [facility] [address] [id number] [place] [id number] Oct, [facility] [address] [id number] [place] [id number] Sep, [facility] [address] [facility] [id number], [place] [address] Sep, [facility] [address] [id number] [place] [id number] Sep, [facility] [address] [id number] [place] [id number] Sep, [facility] [address] [id number] [place] [id number] Sep, [facility] [address] [address] [id number] [place] [id number] Sep, [facility] [place] [address] [id number] [place] [id number] Sep, [facility] [address] [facility] [id number], [place] [address] Aug, [facility] [place] [address] [facility] [id number] [place] [id number] Aug, [facility] [place] [facility] [address] [facility] [id number], [place] [address] July, [facility] [place] [address] [facility] [id number] [place] [id number] July, [facility] [address] [facility] [id number], [place] [address] July, [facility] [place] [address] [id number] [place] [id number] Jun, [facility] [place] [address] [id number] [place] [id number] Jun, [facility] [place] [address] [id number] [place] [address] Jun, [facility] [address] [id number], [place] [address] Jun, [facility] [place] [address] [id number] [place] [id number] May, [facility] [place] [address] [facility] [id number][place] [id number] May, [facility] [address]00565[place], [place] [address] May, [facility] [place] [address] [facility] [id number][place] [id number] Apr, [facility] [address] [facility] [id number], [place] [address] Apr, [facility] [place] [address] [id number] [place] [id number] Apr, [facility] [place] [address] [facility] [id number] [place] [id number] Apr, [facility] [address]00565[place], [place] [address] Mar, [facility] [address] [id number] [place] [id number] Mar, [facility] [address] [id number] [place] [id number] Mar, [facility] [address] [id number] [place] [id number] Feb, [facility] [address] [facility] [id number], [place] [address] Feb, [facility] [address] [id number] [place] [id number] Jan, [facility] [address] [id number][place] [address] Jan, [facility] [place] [facility] [address] [facility] [id number] [place] [address] Jan, [facility] [facility] [address]65[address], [place] [address] Jan, [facility] [address] [id number][place] [id number] Jan, [facility] [place] [facility] [address] [facility] [id number], [place] Jan, [facility] [place] [address] [id number][place] [id number] Dec, [facility] [place] [facility] [address]65[address], [place] [address] Dec, [facility] [address] [id number][place] [id number] Dec, [facility] [place] [facility] [address] [facility] [id number], [place] [address] Dec, [facility] [address] [id number] [place] [id number] Dec, [facility] [address] [id number], [place] [id number] Nov, [facility] [address] [id number][place] [address] Nov, [facility] [place] [address] [id number] [place] [address] Oct, [facility] [place] [address] [id number] [place] [address] Oct, [facility] [place] [address] [id number] [place] [id number] Sep, [facility] [place] [address] [id number] [place] [address] Sep, [facility] [place] [address] [id number] [place] [address] Sep, [facility] [place] [address] [id number] [place] [id number] Aug, [facility] [place] [address] [id number] [place] [address] Aug, [facility] [place] [address] [id number] [place] [id number] July, [facility] [address] [id number] [place] [address] July, [facility] [address] [id number] [place] [id number] July, [facility] [address] [id number] [place] [address] July, [facility] [address] [id number], [place] [address] Jun, [facility] [address] [id number] [place] [id number] Jun, [facility] [address] [id number] [place] [address] Jun, [facility] [address] [id number] [place] [address] Jun, [facility] [address] [id number] [place] [address] May, [facility] [address] [id number] [place] [address] May, [facility] [address] [id number] [place] [address] Apr, [facility] [address] [id number] [place] [id number] Apr, [facility] [place] [address] [id number] [place] [address] Apr, [facility] [address] [id number] [place] [address] Apr, [facility] [address] [id number] [place] [id number] Apr, [facility] [address] [facility] [id number], [place] [address] Apr, [facility] [address] [id number] [place] [address] Apr, [facility] [address] [id number] [place] [address] Apr, [facility] [address] [id number] [place] [address] Mar, [facility] [address], [place] [address] Feb, [facility] [place] [facility] [address]65[address], [place] [address] Feb, [facility] [place] [facility] [address] [id number], [place] [address] Feb, [facility] [place] [facility] [address]65[address], [place] [address] Feb, [facility] [place] [facility] [address], [place] [address] Jan, [facility] [place] [facility] [address], [place] [address] Jan, [facility] [place] [facility] [address] [id number], [place] [address]- [address]84 Jan, [facility] [place] [facility] [address]65[address], [place] [address] Dec, [facility] [place] [facility] [address], [place] [address] Dec, [facility] [place] [facility] [address] [id number] [place] [address]- [address] Aug, [facility] [place] [facility] [address] [id number] [place] [address]- [address] Aug, [facility] [place] [facility] [address] [id number] [place] [address]- [address] Feb, [facility] [place] [facility] [address] [id number] [place] [address]- [address]25 Feb, [facility] [place] [facility] [address] [id number] [place] [address]- [address] Jan, [facility] [place] [facility] [address] [id number] [place] [address]- [address] Jan, [facility] [place] [facility] [address] [id number] [place] [address]- [address]37 Dec, [facility] [place] [facility] [address] [id number] [place] [address]- [address]99 Dec, [facility] [place] [facility] [address] [id number] [place] [address]- [address] Dec, [facility] [place] [facility] [address] [id number] [place] [address]- [address] May, [facility] [place] [facility] [address] [id number] [place] [address]- [address] Mar, [facility] [place] [facility] [address] [id number] [place] [address]- [address] Feb, [facility] [place] [facility] [address] [id number] [place] [address]- [address]84 Feb, [facility] [place] [facility] [address] [id number] [place] [address]- [address] Feb, [facility] [place] [facility] [address] [id number] [place] [address]- 6949 Jan, [facility] [place] [facility] [address] [id number], [place] [address] Jan, [facility] [address] [facility] [id number], [place] [address]- [address]46 Oct, [facility] [address] [facility] [id number], [place] [address]- [address] July, [facility] [address] [facility] [id number], [place] [address]- [address] Apr, [address] [address] [facility] [id number], [place] [address]- [address]46 Jan, [place] [address] [facility] [id number], [place] [address]- [address]46 Jan, IMMUNIZATIONS No Known Immunizations SOCIAL HISTORY Never Assessed REASON FOR VISIT 3 month follow up on diabetes. catarino Booker PLAN OF CARE Activity Details Follow Up 3 Months Reason:dm VITAL SIGNS Height 64 in 2016-09-27 Weight 184.8 lbs 2016-09-27 Temperature 98.2 degrees Fahrenheit 2016-09-27 Heart Rate 84 bpm 2016-09-27 Respiratory Rate 16 2016-09-27 BMI 31.72 kg/m2 2016-09-27 Blood pressure systolic 150 mmHg 2016-09-27 Blood pressure diastolic 84 mmHg 2016-09-27 MEDICATIONS Medication Instructions Dosage Frequency Start Date End Date Duration Status Calcium 600 MG Orally Once a day 1 tablet with meals 24h Active Levemir 100 UNIT/ML Subcutaneous 2 times a day 64 units am 60 pm 12h Jun, Active Poly-Iron 150 Forte 150-25-1 MG-MCG-MG TAKE ONE (1) CAPSULE BY MOUTH TWICE DAILY... Active Aspirin Adult Low Strength 81 MG Orally Once a day 1 tablet 24h Active Losartan Potassium 25 MG TAKE ONE (1) TABLET BY MOUTH DAILY... Active Gabapentin 300 MG TAKE ONE (1) CAPSULE BY MOUTH THREE (3) TIMES A DAY... Active Metformin HCl 1000 MG TAKE 1 TABLET BY MOUTH TWICE DAILY WITH MEALS... Active Amitriptyline HCl 100 MG TAKE ONE (1) TABLET BY MOUTH DAILY... Active Glimepiride 2 MG Orally twice a day 2 tabletin am 1 at pm with meals 12h Active Victoza 18 MG/3ML Subcutaneous Once a day 1.8 mg 24h Active NovoFine 32G X 6 MM subcutaneous 2 times a day DX 250.00 1 needle Nov Active Hydrochlorothiazide 25 MG TAKE ONE (1) TABLET BY MOUTH DAILY... Active Insulin Syringe 31G X 5/16 as directed Feb, Active Lovastatin 20 MG TAKE ONE (1) TABLET BY MOUTH DAILY... Active Hydrocodone-Acetaminophen 7.5-325 MG Orally every 4-6 hrs PRN 1 tablet Active Pramipexole Dihydrochloride 0.5 MG TAKE (2) TABLETS BY MOUTH ONCE DAILY 2- 3 HOURS BEFORE BEDTIME. Active RESULTS Name Result Date Reference Range A1C (IN HOUSE) 2016-09-27 A1C IN HOUSE 6.9 4.3 - 5.6 % Previous A1c 7.9 Lot [id number] Exp date 06/20 PROCEDURES Procedure Date Ordered Result Body Site [facility] VISIT ESTABLISHED PATIENT September 27, 2016 GLYCATED HEMOGLOBIN TEST September 27, 2016 INSTRUCTIONS MEDICATIONS ADMINISTERED No Known Medications MEDICAL [...] Hospitalization History surgeries, childbirth Hospitalization History [place]- Possible Stroke 05/16/2017
--- OUTSIDE RECORDS SUMMARY | 2017-09-20 06:33 | XMS REPORT ---
Author Author CATRACHITA MOLINA Organization [facility] Address [address] [place] [address] Care Team Providers Care Copyright Manager Name Role Phone CATRACHITA MOLINA Unavailable PROBLEMS Type Condition ICD9-CM Code WBM63-GV Code Onset Dates Condition Status SNOMED Code Problem RLS (restless legs syndrome) G25.81 Active 14665005 Problem Encounter for immunization Z23 Active 582315452 Problem Essential hypertension I10 Active 50011293 Problem Diabetes type 2, controlled E11.9 Active 17995806 Problem Diabetic polyneuropathy associated with type 2 diabetes mellitus E11.42 Active 49238624 Problem Other chronic pain G89.29 Active 86107872 Problem Hypoglycemia E16.2 Active 782780776 Problem Reactive depression F32.9 Active 42535214 Problem Type 2 diabetes mellitus with hyperglycemia E11.65 Active 717671426809615 Problem Spinal stenosis, unspecified spinal region M48.00 Active 94633584 Problem Type 2 diabetes mellitus with other specified complication E11.69 Active 34265300337178 Problem Hyperlipidemia, unspecified E78.5 Active 84404986 ALLERGIES No Information ENCOUNTERS Encounter Location Date Diagnosis [facility] [address] [facility] [id number] [id number] Sep, Spinal stenosis, unspecified spinal region M48.00 [facility] [address] [id number] [address] Aug, [facility] [address] [id number] [id number] Aug, Spinal stenosis, unspecified spinal region M48.00 [facility] [id number] [place] [address] [id number] Aug, Spinal stenosis, unspecified spinal region M48.00 [facility] [address] [id number][place] [id number] July, [facility] [address] [id number] [id number] July, Diabetic polyneuropathy associated with type 2 diabetes mellitus E11.42 ; Type 2 diabetes mellitus with hyperglycemia E11.65 ; RLS (restless legs syndrome ) G25.81 and Essential hypertension I10 [facility] [id number] [id number] July, Spinal stenosis, unspecified spinal region M48.00 [facility] [id number] [place] [address] [id number] July, [facility] [id number] [place] [address] [id number] Jun, Type 2 diabetes mellitus with other specified complication E11.69 [facility] [id number] [place] [address] [id number] Jun, Spinal stenosis, unspecified spinal region M48.00 [facility] [id number] [place] [address] [phone] Jun, Hypoglycemia E16.2 [facility] [id number] [place] [address] [id number] May, Hypoglycemia E16.2 ; Acute cystitis with hematuria N30.01 and Essential hypertension I10 [facility] [address]00565100[place] [address] [address] May, [facility] [id number], [place] [id number] May, Spinal stenosis, unspecified spinal region M48.00 [facility] [address]00565100[place] [id number] May, Reactive depression F32.9 [facility] [id number], [place] [id number] May, [facility] [id number], [place] [id number] Apr, [facility] [address] [id number] [id number] Apr, [facility] [address] [id number][place] [id number] Apr, [facility] [address] [id number][place] [id number] Apr, [facility] [id number] [place] [address] [id number] Apr, Spinal stenosis, unspecified spinal region M48.00 [facility] [address] [id number][place] [id number] Apr, Type 2 diabetes mellitus with other specified complication E11.69 ; Spinal stenosis, unspecified spinal region M48.00 ; Reactive depression F32.9 and Essential hypertension I10 [facility] [address] [address] [facility] [id number] [id number] Apr, [facility] [address] [id number] [place] [address] [id number] Mar, Spinal stenosis, unspecified spinal region M48.00 [facility] [id number] [place] [address] [id number] Feb, Acute non-recurrent maxillary sinusitis J01.00 and Essential hypertension I10 [facility] [address] [id number][place] [id number] Feb, Spinal stenosis, unspecified spinal region M48.00 [facility] [id number] [place] [address] [id number] Feb, Type 2 diabetes mellitus with other specified complication E11.69 [facility] [id number] [place] [address] [id number] Feb, Type 2 diabetes mellitus with other specified complication E11.69 and Essential hypertension I10 [facility] [address] [id number], [place] [id number] Feb, [facility] [address] [id number], [place] [id number] Feb, [facility] [id number] [place] [address] [id number] Jan, Spinal stenosis, unspecified spinal region M48.00 [facility] [address] [id number], [place] [id number] Jan, Diabetic polyneuropathy associated with type 2 diabetes mellitus E11.42 [facility] [address]00565100[place] [id number] Jan, Diabetic polyneuropathy associated with type 2 diabetes mellitus E11.42 [facility] [id number] [place] [address] [id number] Jan, Type 2 diabetes mellitus with hyperglycemia E11.65 ; Type 2 diabetes mellitus with other specified complication E11.69 ; Spinal stenosis, unspecified spinal region M48.00 and Essential hypertension I10 [facility] [id number] [place] [address] [id number] Jan, Diabetic polyneuropathy associated with type 2 diabetes mellitus E11.42 [address] [place] [address] [id number] Dec, [id number] [place] [address] [id number] 30 Dec, 2016 Diabetic polyneuropathy associated with type 2 diabetes mellitus E11.42 ; Type 2 diabetes mellitus with other specified complication E11.69 ; Hyperlipidemia, unspecified E78.5 ; Thyroid disorder E07.9 and Thyroid disorder screening Z13.29 [facility] [address]00565100[place] [id number] Dec, Diabetic polyneuropathy associated with type 2 diabetes mellitus E11.42 [facility] [address] [id number] 17 Dec, 2016 Diabetic polyneuropathy associated with type 2 diabetes mellitus E11.42 [address]00565100[place] [id number] Dec, Spinal stenosis, unspecified spinal region M48.00 [facility] [address]00565100[place] [id number] Dec, [address]00565100[place] [id number] 18 Nov, 2016 Diabetic polyneuropathy associated with type 2 diabetes mellitus E11.42 [address]00565100[place] [id number] 15 Nov, 2016 Other chronic pain G89.29 [address]00565100[place] [id number] 14 Nov, 2016 Spinal stenosis, unspecified spinal region M48.00 [facility] [address] [id number], [place] [id number] 16 Oct, 2016 Spinal stenosis, unspecified spinal region M48.00 ; Essential hypertension I10 ; RLS (restless legs syndrome) G25.81 and Diabetic polyneuropathy associated with type 2 diabetes mellitus E11.42 [facility] [address] [id number] [place] [id number] Oct, Spinal stenosis, unspecified spinal region M48.00 [facility] [address] [id number] [place] [id number] Sep, Diabetic polyneuropathy associated with type 2 diabetes mellitus E11.42 ; RLS (restless legs syndrome) G25.81 ; Spinal stenosis, unspecified spinal region M48.00 and Essential hypertension I10 [facility] [address] [id number] [place] [id number] Sep, [facility] [address] [id number], [place] [id number] Sep, Spinal stenosis, unspecified spinal region M48.00 [facility] [address] [id number], [place] [id number] Sep, [facility] [address] [id number], [place] [id number] Aug, Spinal stenosis, unspecified spinal region M48.00 [facility] [address]00565100[place] [address] July, [facility] [address] [id number], [place] [id number] July, Spinal stenosis, unspecified spinal region M48.00 [facility] [address] [id number], [place] [id number] Jun, Type 2 diabetes mellitus with hyperglycemia E11.65 [facility] [address] [id number], [place] [id number] Jun, Spinal stenosis, unspecified spinal region M48.00 [facility] [address] [id number], [place] [id number] May, Spinal stenosis, unspecified spinal region M48.00 [facility] [address] [id number], [place] [id number] 13 Apr, 2016 Spinal stenosis, unspecified spinal region M48.00 [facility] [id number] [place] [address] Mar, [facility] [id number], [place] [id number] Mar, Type 2 diabetes mellitus with hyperglycemia E11.65 ; RLS (restless legs syndrome) G25.81 and Spinal stenosis, unspecified spinal region M48.00 [facility] [address] [id number] [address] Mar, [facility] [id number] [place] [address] [id number] Mar, [facility] [address]00565100[place] [id number] Mar, [facility] [id number], [place] [id number] Feb, [facility] [id number] [place] [address] 87473- 2546 Feb, [facility] [id number] [place] [address] [id number] Feb, [facility] [id number] [place] [address] [id number] Feb, [facility] [id number] [place] [address] 95697- 2546 Feb, [facility] [id number] [place] [address] 04533- 2546 Feb, [facility] [id number], [place] [id number] Jan, [facility] [id number] [place] [address] [id number] Dec, Diabetic polyneuropathy associated with type 2 diabetes mellitus E11.42 ; Other chronic pain G89.29 ; Essential hypertension I10 and Encounter for immunization Z23 [facility] [id number] [place] [address] [id number] Dec, [facility] [address]00565100[place] [address]- [address] Nov, [facility] [id number] [place] [address] [id number] Nov, [facility] [id number] [place] [address] [id number] 15 Nov, 2015 Diabetes type 2, controlled E11.9 [facility] [id number] [place] [address] [id number] 14 Nov, 2015 Diabetes type 2, controlled E11.9 ; Other chronic pain G89.29 ; Essential hypertension I10 ; Diabetic polyneuropathy associated with type 2 diabetes mellitus E11.42 and RLS (restless legs syndrome) G25.81 [facility] [id number] [place] [address] 73530- 4806 Nov, [facility] [id number] [place] [address] [id number] Oct, [facility] [id number] [place] [address] [id number] Oct, [facility] [id number] [place] [address] [id number] Oct, [facility] [id number] [place] [address] [phone] Oct, [facility] [id number] [place] [address] [id number] Sep, [facility] [id number] [place] [address] [id number] Sep, [facility] [address] [place] [address] 20491- 9758 Sep, Dental examination Z01.20 [facility] [id number] [place] [address] 16677- 5320 Aug, [facility] [id number] [place] [address] [id number] Aug, [facility] [id number] [place] [address] 06031- 9988 Aug, [facility] [address] [facility] [id number] [place] [address] July, [facility] [address] [facility] [id number] [place] [address]- [address] July, [facility] [address] [facility] [id number] [place] [address]- [address] July, [facility] [address] [id number], [place] [id number] July, [facility] [address] [id number], [place] [id number] July, [facility] [id number] [place] [address] [id number] July, [facility] [address] [facility] [id number] [place] [address]- 25[address] July, [facility] [address] [id number], [place] [id number] Jun, Diabetes type 2, controlled E11.9 [facility] [address] [id number] [place] [address] [id number] Jun, [facility] [address] [id number] [place] [id number] May, Diabetes type 1, uncontrolled E10.65 [facility] [address] [id number], [place] [id number] May, [facility] [address] [id number], [place] [id number] Apr, [facility] [address] [id number], [place] [id number] Apr, [facility] [address] [id number], [place] [id number] Mar, [facility] [address] [id number] [place] [id number] Mar, [facility] [address] [id number], [place] [id number] Mar, [facility] [address] [id number], [place] [id number] Mar, Diabetes type 1, uncontrolled E10.65 [facility] [address] [facility] [id number], [place] [phone] Feb, [facility] [id number], [place] [id number] Feb, [facility] [id number], [place] [id number] Feb, [facility] [address] [address] [facility] [id number][place] [phone] Jan, [facility] [id number], [place] [id number] Jan, Acute cystitis with hematuria N30.01 and Dysuria R30.0 [facility] [id number] [place] [address] [id number] Jan, [facility] [id number] [place] [address] [id number] Dec, Gastroenteritis K52.9 and Headache, unspecified headache type R51 [facility] [id number] [place] [address] [id number] Dec, [facility] [id number], [place] [id number] Dec, Chronic back pain 724.5 [facility] [address] [place] [id number] [phone] Dec, [facility] [id number], [place] [id number] Nov, Chronic back pain 724.5 and Diabetes mellitus without mention of complication, type II or unspecified type, uncontrolled 250.02 [facility] [address] [facility] [id number], [place] [id number] Nov, [facility] [address] [id number], [place] [id number] Oct, [facility] [id number] [place] [address] [id number] Sep, Diabetes mellitus without mention of complication, type II or unspecified type, uncontrolled 250.02 and Urinary tract infection 599.0 [facility] [id number], [place] [id number] July, [facility] [place] [facility] [address] [id number] [place] [address]- 3[address] Jun, [facility] [place] [facility] [address] [id number] [place] [address]- 2546 Jun, [facility] [address] [id number] [place] [id number] May, [facility] [place] [facility] [address] [facility] [id number] [place] [address]- 2546 May, [facility] [address] [id number] [place] [id number] May, [facility] [place] [facility] [address] [facility] [id number] [place] [address]- 2546 May, [facility] [address] [facility] [id number], [place] [id number] Mar, [facility] [place] [facility] [address] [facility] [id number] [place] [address]- 7166 Mar, [facility] [place] [facility] [address] [facility] [id number] [place] [address]- 2546 Mar, [facility] [address] [id number], [place] [id number] Mar, [facility] [address] [id number], [place] [id number] Feb, [facility] [place] [facility] [address] [facility] [id number] [place] [address]- 7136 Feb, [facility] [address] [id number], [place] [id number] Feb, [facility] [place] [facility] [address] [facility] [id number] [place] [address]- 2546 Feb, [facility] [place] [facility] [address] [facility] [id number] [place] [address]- 2546 Feb, [facility] [address] [id number] [place] [id number] Feb, [facility] [address] [id number], [place] [id number] Feb, [facility] [place] [facility] [address] [id number] [place] [address]- 2546 Feb, [facility] [place] [facility] [address] [id number] [place] [address]- 2546 Feb, [facility] [address] [id number] [place] [id number] Jan, [facility] [place] [facility] [address] [id number] [place] [address]- 2546 Jan, [facility] [address] [id number] [place] [id number] Jan, [facility] [place] [facility] [address] [id number] [place] [address]- 7606 Jan, [facility] [address] [facility] [id number], [place] [id number] Dec, [facility] [place] [facility] [address] [id number] [place] [address]- 7716 Dec, [facility] [place] [facility] [address] [id number] [place] [address]- 4490 Dec, [facility] [place] [facility] [address] [facility] [id number] [place] [address]- 5696 Dec, [facility] [address] [facility] [id number], [place] [id number] Dec, [facility] [place] [facility] [address] [facility] [id number] [place] [address]- 2546 Dec, [facility] [address] [id number], [place] [id number] Nov, [facility] [place] [facility] [address] [id number] [place] [address]- 2546 Nov, [facility] [address] [facility] [id number], [place] [id number] Oct, [facility] [place] [facility] [address] [facility] [id number] [place] [address]- 2506 Oct, [facility] [place] [facility] [address] [id number] [place] [address]- 2546 Sep, [facility] [address] [id number] [place] [id number] Sep, [facility] [address] [id number] [place] [id number] Aug, [facility] [place] [facility] [address] [facility] [id number] [place] [address]- 6196 Aug, [facility] [address] [id number] [place] [id number] July, [facility] [place] [facility] [address] [id number] [place] [address]- 6736 July, [facility] [address] [facility] [id number] [place] [id number] July, [facility] [place] [facility] [address] [facility] [id number] [place] [address]- 2566 July, [facility] [place] [facility] [address] [facility] [id number] [place] [address]- 3506 July, [facility] [place] [facility] [address] [facility] [id number] [place] [address]- 1731 Jun, [facility] [address] [facility] [id number], [place] [id number] Jun, [facility] [address] [facility] [id number] [place] [id number] Jun, [facility] [place] [facility] [address] [facility] [id number] [place] [address]- 0106 Jun, [facility] [place] [facility] [address] [facility] [id number] [place] [address]- 5973 Jun, [facility] [place] [facility] [address] [facility] [id number] [place] [address]- 3706 May, [facility] [address] [facility] [id number] [place] [id number] Apr, [facility] [place] [facility] [address] [facility] [id number] [place] [address] Apr, [facility] [address] [id number][place] [id number] Apr, [facility] [address] [id number] [place] [address] Apr, [facility] [address] [facility] [id number] [place] [address] Mar, [facility] [place] [facility] [address] [facility] [id number] [place] [address] Mar, [facility] [address] [id number] [place] [address] Mar, [facility] [address] [facility] [id number][place] [id number] Mar, [facility] [address] [facility] [id number] [place] [address] Mar, [facility] [place] [facility] [id number] [place] [address] Mar, [facility] [address] [facility] [id number] [place] [address] Feb, [facility] [address] [id number][place] [id number] Feb, [facility] [address] [facility] [id number] [place] [address] Feb, [facility] [address] [id number][place] [id number] Feb, [facility] [address] [facility] [id number] [place] [address] Feb, [facility] [address] [id number][place] [id number] Feb, [facility] [place] [facility] [address] [facility] [place] [id number] [place] [address] Feb, [facility] [address] [facility] [id number] [place] [id number] Jan, [facility] [place] [facility] [address] [facility] [id number] [place] [address] Jan, [facility] [address] [facility] [id number] [place] [address] Dec, [facility] [address] [id number] [place] [id number] Dec, [facility] [address] [facility] [id number] [place] [address] Nov, [facility] [address] [id number] [place] [id number] Oct, [facility] [address] [id number] [place] [id number] Oct, [facility] [address] [id number] [place] [id number] Sep, [facility] [place] [facility] [address] [id number] [place] [address] Sep, [facility] [address] [id number] [place] [id number] Sep, [facility] [address] [id number] [place] [address] Sep, [facility] [address] [id number] [place] [id number] Sep, [facility] [address] [id number] [place] [id number] Sep, [facility] [address] [id number] [place] [address] Sep, [facility] [place] [facility] [address] [facility] [id number] [place] [address] Aug, [facility] [address] [id number] [place] [id number] Aug, [facility] [place] [facility] [address] [facility] [id number] [place] [address] July, [facility] [address] [id number] [place] [id number] July, [facility] [id number] [place] [address] July, [facility] [address] [id number] [place] [id number] Jun, [facility] [address] [id number] [place] [address] Jun, [facility] [address] [id number] [place] [id number] Jun, [facility] [id number] [place] [address] Jun, [facility] [address] [id number] [place] [id number] May, [facility] [address] [id number] [place] [id number] May, [facility] [id number] [place] [address] May, [facility] [address] [id number][place] [id number] Apr, [facility] [id number] [place] [address] Apr, [facility] [address] [id number], [place] [id number] Apr, [facility] [address] [id number][place] [id number] Apr, [facility] [id number] [place] [address] Mar, [facility] [address] [id number][place] [address]42[place]404 Mar, [facility] [address] [id number][place] [address]46[address]216 Mar, [facility] [address] [id number], [place] 942132127 Feb, [facility] [place] [facility] [address] [id number] [place] [address] Feb, [facility] [address] [id number], [place] [address]64118174 Jan, [facility] [address] [id number][place] [id number] Jan, [facility] [place] [facility] [address] [facility] [id number] [place] [address] Jan, [facility] [place] [facility] [address] [facility] [id number] [place] [address] Jan, [facility] [address] [id number], [place] [id number] Jan, [facility] [place] [facility] [address] [facility] [id number] [place] [address] Jan, [facility] [address] [id number], [place] 603195025 Dec, [facility] [facility] [address] [facility] [id number] [place] 62474432[place] [address] Dec, [facility] [address] [id number], [place] [id number] Dec, [facility] [address] [facility] [id number] [place] 60[place]373[place] [address] Dec, [facility] [address] [id number], [place] 707669403 Dec, [facility] [address] [id number], [place] 975133302 Nov, [facility] [address] [id number], [place] 150[place]15433 Nov, [facility] [address] [id number], [place] 773[place]5974 Oct, [facility] [address] [id number], [place] 826416203 Oct, [facility] [address] [id number] [place] 535[place]4517 Sep, [facility] [address] [id number] [place] [id number] Sep, [facility] [address] [id number], [place] 66[address]12314 Sep, [facility] [address] [id number], [place] 231910357 Aug, [facility] [address] [id number] [place] [id number] Aug, [facility] [address] [id number] [place] 136[address]5944 July, [facility] [address] [id number] [place] 937[place]186 July, [facility] [address] [id number] [place] 42[address] July, [facility] [address] [id number] [place] 412008576 July, [facility] [id number] [place] [address] Jun, [facility] [address] [id number] [place] 030350554 Jun, [facility] [address] [id number] [place] 013989455 Jun, [facility] [address] [id number] [place] [id number] Jun, [facility] [address] [id number] [place] [id number] May, [facility] [address] [id number] [place] [address]1008[address] May, [facility] [address] [id number] [place] 539463340 Apr, [facility] [address] [id number] [place] 310581330 Apr, [facility] [address] [id number] [place] 514074990 Apr, [facility] [address] [id number] [place] 829406460 Apr, [facility] [address] [id number] [place] 046754250 Apr, [facility] [id number] [place] [address] Apr, [facility] [address] [id number], [place] 201065245 Apr, [facility] [address] [facility] [id number] [place] [id number] Apr, [facility] [address] [facility] [id number] [place] [id number] Mar, [facility] [address] [id number] [place] [address] Feb, [facility] [place] [facility] [address] [facility] [id number] [place] [address], [place] [address]- [address] Feb, [facility] [address] [id number] [place] [address]- [address] Feb, [facility] [place] [facility] [address] [facility] [id number] [place] [address], [place] [address]- [address] Feb, [facility] [address] [facility] [id number] [place] [address]- [address] Jan, [facility] [place] [facility] [address] [id number] [place] [address]- [address] Jan, [facility] [place] [facility] [address] [facility] [id number] [place] [address]- [address] Jan, [facility] [place] [facility] [address] [id number] [place] [address]- 9[address] Dec, [facility] [place] [facility] [address] [facility] [id number] [place] [address]- [address] Dec, [facility] [place] [facility] [address] [id number] [place] [address]- [address] Aug, [facility] [place] [facility] [address] [facility] [id number] [place] [address]- [address] Aug, [facility] [place] [facility] [address] [facility] [id number] [place] [address]- 58[address] Feb, [facility] [place] [facility] [address] [facility] [id number] [place] [address]- [address] Feb, [facility] [place] [facility] [address] [facility] [id number] [place] [address]- 8183 Jan, [facility] [place] [facility] [address] [id number] [place] [address]- [address] Jan, [facility] [place] [facility] [address] [id number] [place] [address]- 7904 Dec, [facility] [place] [facility] [address] [id number] [place] [address]- [address]206 Dec, [facility] [place] [facility] [address] [id number] [place] [address]- 7575 Dec, [facility] [place] [facility] [address] [id number] [place] [address]- 57[address] May, [facility] [place] [facility] [address] [id number] [place] [address]- 1844 Mar, [facility] [place] [facility] [address] [facility] [id number] [place] [address]- 46[address] Feb, [facility] [place] [facility] [address] [id number] [place] [address]- 65[address] Feb, [facility] [place] [facility] [address] [id number] [place] [address]- 6639 Feb, [facility] [place] [facility] [address] [id number] [place] [address]- 1833 Jan, [facility] [place] [facility] [address] [id number] [place] [address]- 4947 Jan, [facility] [place] [facility] [address] [id number] [place] [address]- 6599 Oct, [facility] [place] [facility] [address] [id number] [place] [address]- [address] July, [facility] [place] [facility] [address] [id number] [place] [address] Apr, [facility] [place] [facility] [address] [id number] [place] [address]- 7948 Jan, [facility] [place] [facility] [address] [facility] [id number] [place] [address]- [address] Jan, IMMUNIZATIONS No Known Immunizations SOCIAL HISTORY Never Assessed REASON FOR VISIT Medication refill request PLAN OF CARE VITAL SIGNS MEDICATIONS Medication Instructions Dosage Frequency Start Date End Date Duration Status Poly-Iron 150 Forte 150-25-1 MG-MCG-MG Orally 2 times a day 1 capsule 12h 30 days Active Lovastatin 20 mg Orally Once a day with a meal 1 tablet 30 days Active Pramipexole Dihydrochloride 0.5 MG Orally Once a day 2-3 hours before bedtime 2 tablets 30 days Active RESULTS No Results PROCEDURES No [...] Hospitalization History surgeries, childbirth Hospitalization History [facility] [place]- Possible Stroke 05/16/2017
--- OUTSIDE RECORDS SUMMARY | 2017-09-20 06:33 | XMS REPORT ---
Author Author BROOKE WIN Organization [facility] Address [address] [place] [address] Care Team Providers Care Certified Nurse Name Role Phone BROOKE WIN Unavailable PROBLEMS Type Condition ICD9-CM Code RCY85-EE Code Onset Dates Condition Status SNOMED Code Problem RLS (restless legs syndrome) G25.81 Active 05446994 Problem Encounter for immunization Z23 Active 115429043 Problem Essential hypertension I10 Active 92418024 Problem Diabetes type 2, controlled E11.9 Active 50747931 Problem Diabetic polyneuropathy associated with type 2 diabetes mellitus E11.42 Active 62231397 Problem Other chronic pain G89.29 Active 94599945 Problem Hypoglycemia E16.2 Active 058611188 Problem Reactive depression F32.9 Active 76521259 Problem Type 2 diabetes mellitus with hyperglycemia E11.65 Active 262907290268663 Problem Spinal stenosis, unspecified spinal region M48.00 Active 38711047 Problem Type 2 diabetes mellitus with other specified complication E11.69 Active 70570257399076 Problem Hyperlipidemia, unspecified E78.5 Active 48619270 ALLERGIES No Information ENCOUNTERS Encounter Location Date Diagnosis [facility] [id number] [place] [address] [id number] July, [place] [id number] [place] [address] [id number] Jun, Type 2 diabetes mellitus with other specified complication E11.69 [facility] [id number] [place] [address] [id number] Jun, Spinal stenosis, unspecified spinal region M48.00 [place] [id number] [place] [address] [id number] Jun, Hypoglycemia E16.[id number] [place] [address] [id number] May, Hypoglycemia E16.2 ; Acute cystitis with hematuria N30.01 and Essential hypertension I10 [facility] [address]00565[address], [place] [address] May, [facility] [place] [id number] [place] [address] [id number] May, Spinal stenosis, unspecified spinal region M48.00 [facility] [place] [id number] [place] [address] [id number] May, Reactive depression F32.9 [facility] [place] [id number] [place] [address] [id number] May, [facility] [place] [id number] [place] [address] [id number] Apr, [facility] [address] [id number] [id number] Apr, [facility] [id number] [place] [address] [id number] Apr, [facility] [place] [id number] [place] [address] [id number] Apr, [facility] [id number] [place] [address] [id number] Apr, Spinal stenosis, unspecified spinal region M48.00 [facility] [place] [id number] [place] [address] [id number] Apr, Type 2 diabetes mellitus with other specified complication E11.69 ; Spinal stenosis, unspecified spinal region M48.00 ; Reactive depression F32.9 and Essential hypertension I10 [facility] [address] [id number][place] [phone] Apr, [facility] [place] [id number] [id number] Mar, Spinal stenosis, unspecified spinal region M48.00 [facility] [place] [id number] [place] [address] [id number] Feb, Acute non-recurrent maxillary sinusitis J01.00 and Essential hypertension I10 [facility] [place] [id number] [place] [address] [id number] Feb, Spinal stenosis, unspecified spinal region M48.00 [facility] [place] [address] [id number] [place] [id number] Feb, Type 2 diabetes mellitus with other specified complication E11.69 [facility] [place] [address] [id number] [place] [phone] Feb, Type 2 diabetes mellitus with other specified complication E11.69 and Essential hypertension I10 [facility] [place] [address] [id number] [place] [id number] Feb, [facility] [place] [id number] [place] [address] [id number] Feb, [facility] [address] [id number] [place] [id number] Jan, Spinal stenosis, unspecified spinal region M48.00 [facility] [place] [address] [id number] [place] [id number] Jan, Diabetic polyneuropathy associated with type 2 diabetes mellitus E11.42 [facility] [id number] [place] [address] [id number] Jan, Diabetic polyneuropathy associated with type 2 diabetes mellitus E11.42 [facility] [place] [address] [id number] [place] [id number] Jan, Type 2 diabetes mellitus with hyperglycemia E11.65 ; Type 2 diabetes mellitus with other specified complication E11.69 ; Spinal stenosis, unspecified spinal region M48.00 and Essential hypertension I10 [facility] [place] [id number] [place] [address] [id number] Jan, Diabetic polyneuropathy associated with type 2 diabetes mellitus E11.42 [facility] [id number] [place] [address] [id number] Dec, [facility] [id number] [place] [address] [id number] Dec, Diabetic polyneuropathy associated with type 2 diabetes mellitus E11.42 ; Type 2 diabetes mellitus with other specified complication E11.69 ; Hyperlipidemia, unspecified E78.5 ; Thyroid disorder E07.9 and Thyroid disorder screening Z13.29 [facility] [place] [id number] [place] [address] [id number] Dec, Diabetic polyneuropathy associated with type 2 diabetes mellitus E11.42 [facility] [id number] [address] Dec, Diabetic polyneuropathy associated with type 2 diabetes mellitus E11.42 [facility] [place] [id number], [place] [id number] Dec, Spinal stenosis, unspecified spinal region M48.00 [facility] [address] [id number], [place] [id number] Dec, [facility] [id number], [place] [id number] 18 Nov, 2016 Diabetic polyneuropathy associated with type 2 diabetes mellitus E11.42 [facility] [id number], [place] [id number] 15 Nov, 2016 Other chronic pain G89.29 [facility] [address] [id number], [place] [id number] 14 Nov, 2016 Spinal stenosis, unspecified spinal region M48.00 [facility] [id number], [place] [id number] Oct, Spinal stenosis, unspecified spinal region M48.00 ; Essential hypertension I10 ; RLS (restless legs syndrome) G25.81 and Diabetic polyneuropathy associated with type 2 diabetes mellitus E11.42 [facility] [address] [id number], [place] [id number] Oct, Spinal stenosis, unspecified spinal region M48.00 [facility] [address] [id number], [place] 189439480 Sep, Diabetic polyneuropathy associated with type 2 diabetes mellitus E11.42 ; RLS (restless legs syndrome) G25.81 ; Spinal stenosis, unspecified spinal region M48.00 and Essential hypertension I10 [facility] [address] [id number], [place] [id number] Sep, [facility] [id number], [place] [id number] Sep, Spinal stenosis, unspecified spinal region M48.00 [facility] [address] [id number], [place] [phone] Sep, [facility] [address] [id number], [place] [id number] Aug, Spinal stenosis, unspecified spinal region M48.00 [facility] [place] [address]00565[address], [place] [address] July, [facility] [address] [id number], [place] [id number] July, Spinal stenosis, unspecified spinal region M48.00 [facility] [address] [id number], [place] [id number] Jun, Type 2 diabetes mellitus with hyperglycemia E11.65 [facility] [id number] [place] [address] [id number] Jun, Spinal stenosis, unspecified spinal region M48.00 [facility] [address] [id number], [place] [id number] May, Spinal stenosis, unspecified spinal region M48.00 [facility] [address] [id number], [place] [id number] Apr, Spinal stenosis, unspecified spinal region M48.00 [facility] [address]00565100[place], [place] [address] 2546 Mar, [facility] [address] [id number], [place] [id number] Mar, Type 2 diabetes mellitus with hyperglycemia E11.65 ; RLS (restless legs syndrome) G25.81 and Spinal stenosis, unspecified spinal region M48.00 [facility] [place] [address]00565100[place], [place] [address] 2546 Mar, [facility] [address] [facility] [id number], [place] [id number] Mar, [facility] [address] [facility] [id number][place] [id number] Mar, [facility] [address] [facility] [id number], [place] [id number] Feb, [facility] [address]00565100[place], [place] [address] Feb, [facility] [id number], [place] [id number] Feb, [facility] [id number] [place] [address] [id number] Feb, [facility] [id number] [place] [address] Feb, [facility] [id number] [place] [address] Feb, [facility] [id number] [place] [address] [id number] Jan, [facility] [id number] [place] [address] [id number] Dec, Diabetic polyneuropathy associated with type 2 diabetes mellitus E11.42 ; Other chronic pain G89.29 ; Essential hypertension I10 and Encounter for immunization Z23 [facility] [id number] [place] [address] [id number] Dec, [facility] [id number] [place] [address] Nov, [facility] [id number] [place] [address] [id number] Nov, [facility] [id number] [place] [address] [id number] Nov, Diabetes type 2, controlled E11.9 [facility] [id number] [place] [address] [id number] Nov, Diabetes type 2, controlled E11.9 ; Other chronic pain G89.29 ; Essential hypertension I10 ; Diabetic polyneuropathy associated with type 2 diabetes mellitus E11.42 and RLS (restless legs syndrome) G25.81 [facility] [id number] [place] [address] 2546 Nov, [facility] [id number] [place] [address] [id number] Oct, [facility] [id number] [place] [address] [id number] Oct, [facility] [address] [id number] [phone] Oct, [facility] [address] [facility] [id number], [place] [address] 2546 Oct, [facility] [address] [id number], [place] [id number] Sep, [facility] [address] [facility] [id number] [place] [id number] Sep, [facility] [place] [facility] [address] [facility] [id number], [place] [address] Sep, Dental examination Z01.20 [facility] [place] [facility] [address] [facility] [id number], [place] [address] Aug, [facility] [address] [id number], [place] [id number] Aug, [facility] [place] [facility] [address]00565100[place], [place] [address] Aug, [facility] [place] [facility] [address]00565100[place], [place] [address] July, [facility] [place] [facility] [address]00565100[place], [place] [address] July, [facility] [place] [facility] [address]00565100[place], [place] [address] July, [facility] [address] [facility] [id number], [place] [id number] July, [facility] [address] [facility] [id number], [place] [id number] July, [facility] [address] [facility] [id number], [place] [id number] July, [facility] [place] [facility] [address] [facility] [id number], [place] [address] 2546 July, [facility] [address] [facility] [id number], [place] [id number] Jun, Diabetes type 2, controlled E11.9 [facility] [address] [id number], [place] [id number] Jun, [facility] [address] [id number], [place] [id number] May, Diabetes type 1, uncontrolled E10.65 [facility] [address] [id number] [place] [id number] May, [facility] [address] [id number] [place] [id number] Apr, [facility] [address] [id number] [place] [id number] Apr, [facility] [address] [id number] [place] 153903199 Mar, [facility] [address] [id number] [place] [id number] Mar, [facility] [address] [id number] [place] [id number] Mar, [facility] [address] [id number] [place] [id number] Mar, Diabetes type 1, uncontrolled E10.65 [facility] [address] [id number], [place] [id number] Feb, [facility] [address] [id number], [place] [id number] Feb, [facility] [id number] [place] [address] [id number] Feb, [facility] [address] [id number], [place] [id number] Jan, [facility] [address] [id number], [place] 5198820[address] Jan, Dysuria R30.0 and Acute cystitis with hematuria N30.01 [facility] [address] [id number], [place] 893929973 Jan, [facility] [id number] [place] [address] [id number] Dec, Gastroenteritis K52.9 and Headache, unspecified headache type R51 [facility] [id number] [place] [address] [id number] Dec, [facility] [id number] [place] [address] [id number] Dec, Chronic back pain 724.5 [facility] [address] [id number] [address]17[place] Dec, [facility] [id number], [place] 679768286 Nov, Chronic back pain 724.5 and Diabetes mellitus without mention of complication, type II or unspecified type, uncontrolled 250.02 [facility] [id number], [place] 726[address]0189 Nov, [facility] [id number], [place] [id number] Oct, [facility] [id number] [place] [address] [id number] Sep, Diabetes mellitus without mention of complication, type II or unspecified type, uncontrolled 250.02 and Urinary tract infection 599.0 [facility] [id number], [place] [id number] July, [facility] [address]00565100[place], [place] [address] Jun, [facility] [id number] [place] [address]- [address] Jun, [facility] [id number], [place] [id number] May, [facility] [address]00565100[place], [place] [address]- [address] May, [facility] [id number], [place] [id number] May, [facility] [address]00565100[place], [place] [address]- 25[address] May, [facility] [id number], [place] [id number] Mar, [facility] [address]00565100[place], [place] [address] Mar, [facility] [address]00565100[place], [place] [address]- 8[address] Mar, [facility] [address] [id number] [place] [id number] Mar, [facility] [address] [facility] [id number] [place] [id number] Feb, [facility] [place] [facility] [address] [facility] [id number], [place] [address]- [address] Feb, [facility] [address] [facility] [id number] [place] [id number] Feb, [facility] [place] [facility] [address] [facility] [id number] [place] [address]- 355[address] Feb, [facility] [place] [facility] [address] [facility] [id number] [place] [address]- 12[address] Feb, [facility] [address] [facility] [id number] [place] 838841281 Feb, [facility] [address] [id number], [place] 039655441 Feb, [facility] [place] [facility] [address] [facility] [id number], [place] [address]- 58[address] Feb, [facility] [place] [facility] [address] [facility] [id number], [place] [address]- 2779 Feb, [facility] [address] [facility] [id number], [place] [id number] Jan, [facility] [place] [facility] [address] [facility] [id number], [place] [address]- 6898 Jan, [facility] [address] [facility] [id number], [place] [id number] Jan, [facility] [place] [facility] [address] [facility] [id number], [place] [address]- 3397 Jan, [facility] [address] [facility] [id number], [place] [id number] Dec, [facility] [place] [facility] [address] [facility] [id number], [place] 678568- 56[address] Dec, [facility] [place] [facility] [address] [facility] [id number], [place] [address]- 7[address] Dec, [facility] [place] [facility] [address] [id number] [place] [address]- 6435 Dec, [facility] [address] [facility] [id number], [place] [id number] Dec, [facility] [place] [facility] [address] [facility] [id number], [place] [address]- 9006 Dec, [facility] [address] [facility] [id number], [place] [id number] Nov, [facility] [place] [facility] [address] [id number] [place] [address]- 9826 Nov, [facility] [address] [facility] [id number], [place] 867434966 Oct, [facility] [place] [facility] [address] [id number], [place] [address]- 2570 Oct, [facility] [address] [id number], [place] 078107607 Sep, [facility] [place] [facility] [address] [id number], [place] [address]- 8142 Sep, [facility] [address] [facility] [id number], [place] [id number] Aug, [facility] [place] [facility] [address] [facility] [id number], [place] [address]- 1056 Aug, [facility] [address] [facility] [id number], [place] [id number] July, [facility] [place] [facility] [address] [facility] [id number] [place] [address]- 2432 July, [facility] [address] [facility] [id number], [place] [id number] July, [facility] [place] [facility] [address] [facility] [id number] [place] [address] July, [facility] [place] [facility] [address] [facility] [id number], [place] [address] July, [facility] [place] [facility] [address] [id number], [place] [address] Jun, [facility] [address] [id number] [place] [id number] Jun, [facility] [address] [facility] [id number] [place] [id number] Jun, [facility] [place] [facility] [address] [facility] [id number], [place] [address] Jun, [facility] [place] [facility] [address] [facility] [id number], [place] [address] Jun, [facility] [place] [facility] [address] [facility] [id number], [place] [address] May, [facility] [address] [facility] [id number][place] [id number] Apr, [facility] [place] [facility] [address] [id number], [place] [address] Apr, [facility] [address] [facility] [id number][place] [id number] Apr, [facility] [place] [facility] [address] [facility] [id number], [place] [address] Apr, [facility] [place] [facility] [address] [facility] [id number], [place] [address] Mar, [facility] [place] [facility] [address] [facility] [id number], [place] [address] Mar, [facility] [place] [facility] [address] [facility] [id number], [place] [address] Mar, [facility] [address] [facility] [id number][place] [id number] Mar, [facility] [place] [facility] [address] [facility] [id number], [place] [address] Mar, [facility] [place] [facility] [address] [facility] [id number], [place] [address] Mar, [facility] [place] [facility] [address] [facility] [id number], [place] [address] Feb, [facility] [address] [id number] [place] [id number] Feb, [facility] [address] [facility] [id number], [place] [address] Feb, [facility] [address] [facility] [id number] [place] [id number] Feb, [facility] [address] [facility] [id number], [place] [address] Feb, [facility] [address] [facility] [id number] [place] [id number] Feb, [facility] [place] [facility] [address] [facility] [id number], [place] [address] Feb, [facility] [address] [id number][place] [id number] Jan, [facility] [id number], [place] [address] Jan, [facility] [place] [facility] [address] [id number] [address] Dec, [facility] [place] [address] [facility] [id number] [id number] Dec, [facility] [address] [id number] [address] Nov, [facility] [place] [address] [id number][place] [id number] Oct, [facility] [place] [address] [id number] [place] [id number] Oct, [facility] [place] [address] [id number] [place] [address] Sep, [facility] [place] [facility] [address] [facility] [id number], [place] [address] Sep, [facility] [place] [address] [id number] [place] [id number] Sep, [facility] [place] [address] [id number] [place] [address] Sep, [facility] [place] [address] [id number] [place] [id number] Sep, [facility] [place] [address] [id number] [place] [address] Sep, [facility] [place] [address] [id number] [place] [id number] Sep, [facility] [address] [facility] [id number], [place] [address] Aug, [facility] [place] [address] [id number] [place] [id number] Aug, [facility] [address] [facility] [id number], [place] [address] July, [facility] [place] [address] [id number] [place] [id number] July, [facility] [address]00565[address], [place] [address] July, [facility] [place] [address] [id number] [place] [id number] Jun, [facility] [place] [address] [id number] [place] [id number] Jun, [facility] [place] [address] [id number] [place] [id number] Jun, [facility] [address] [id number], [place] [address] Jun, [facility] [place] [address] [id number] [place] [id number] May, [facility] [place] [address] [id number] [place] [id number] May, [facility] [address]00565[address], [place] [address] May, [facility] [place] [address] [facility] [id number] [place] [id number] Apr, [facility] [address]00565[address], [place] [address] Apr, [facility] [place] [address] [id number] [place] [id number] Apr, [facility] [place] [address] [id number] [place] [id number] Apr, [facility] [place] [facility] [address] [facility] [id number], [place] [address] Mar, [facility] [place] [address] [id number] [place] [id number] Mar, [facility] [place] [address] [id number] [place] [id number] Mar, [facility] [place] [address] [id number] [place] [id number] Feb, [facility] [place] [facility] [address] [facility] [id number], [place] [address] Feb, [facility] [place] [address] [id number] [place] [id number] Jan, [facility] [place] [address] [id number][place] [address] Jan, [facility] [place] [facility] [address] [address] Jan, [facility] [place] [facility] [address]005[address], [place] [address] Jan, [facility] [place] [address] [facility] [id number][place] [id number] Jan, [facility] [place] [facility] [address] [facility] [id number], [place] [address]6577[place] [address] Jan, [facility] [place] [address] [facility] [id number], [place] [id number] Dec, [facility] [place] [facility] [address] [facility] [id number], [place] [address] Dec, [facility] [place] [address] [facility] [id number][place] [id number] Dec, [facility] [place] [facility] [address] Dec, [facility] [place] [address] [id number] [place]38 Dec, [facility] [place] [address] [id number] [place] Nov, [facility] [place] [address] [id number] [place]483 Nov, [facility] [place] [address] [id number] [place] [address] Oct, [facility] [place] [address] [id number] [id number] Oct, [facility] [place] [address] [id number] [place] [address] Sep, [facility] [place] [address] [id number] [place] [address] Sep, [facility] [place] [address] [id number] [place] [id number] Sep, [facility] [place] [address] [id number] [place] [id number] Aug, [facility] [place] [address] [id number] [place] [address] Aug, [facility] [place] [address] [id number] [place] [id number] July, [facility] [place] [address] [id number] [place] [address] July, [facility] [place] [address] [id number] [place] [id number] July, [facility] [place] [address] [id number] [place] July, [facility] [address] [facility] [id number], [place] [address] Jun, [facility] [place] [address] [id number] [id number] Jun, [facility] [place] [address] [id number] [place] [address]2923 Jun, [facility] [place] [address] [id number] [place] [address]8764 Jun, [facility] [place] [address] [id number] [place] May, [facility] [place] [address] [id number] [place] [address] May, [facility] [place] [address] [id number] [place]79 Apr, [facility] [place] [address] [id number] [place] [address] Apr, [facility] [place] [address] [id number] [place]80929 Apr, [facility] [place] [address] [id number] [place] [id number] Apr, [facility] [place] [address] [id number] [place] [address] Apr, [facility] [place] [facility] [address]00565[address], [place] [address] Apr, [facility] [place] [address] [id number] [place] 968[place]250 Apr, [facility] [place] [address] [id number] [place] 002168331 Apr, [facility] [place] [address] [id number] [place] 7550717[place] Mar, [facility] [place] [facility] [address]005[address], [place] [address] Feb, [facility] [place] [facility] [address]00565100[place], [place] [address] Feb, [facility] [place] [facility] [address]005[address]100[place] 75[address]- 114[address] Feb, [facility] [place] [facility] [address]00565100[place] Feb, [facility] [place] [facility] [address]00565100[place], [place] 25[address]- 9520 Jan, [facility] [place] [facility] [address]005[address] [address] Jan, [facility] [place] [facility] [id number] [place] [address] 04 Jan, 2011 [facility] [address] [id number] [place] [address]- [address]79 Dec, [facility] [place] [facility] [address] [id number] [place] [address]- 6937 Dec, [facility] [address] [id number] [place] [address]- 8[address] 17 Aug, 2010 [facility] [place] [facility] [address] [id number] [place] [address]- [address]70 16 Aug, 2010 [facility] [id number] [place] [address], [place]- [address] 30 Feb, 2010 [facility] [address] [id number] [place] [address]- [address]221 Feb, [facility] [place] [facility] [address] [id number] [place] [address]- [address]58 Jan, [facility] [address] [id number] [place] [address]- [address]70 Jan, [facility] [address] [id number] [place] [address]- 5260 Dec, [facility] [address] [id number] [place] [address]- 0624 Dec, [facility] [place] [facility] [address] [id number] [place] [address]- 2559 Dec, [facility] [place] [facility] [address] [id number] [place] [address]- 6710 May, [facility] [place] [facility] [address] [id number] [place] [address]- 5314 Mar, [facility] [place] [facility] [address] [id number] [place] [address]- 4362 17 Feb, 2009 [facility] [place] [facility] [address] [id number] [place] [address]- [address]147 Feb, [facility] [address] [id number], [place] [address] Feb, [facility] [address]00565100[place], [place] [address] Jan, [facility] [address]00565100[place], [place] [address] Jan, [facility] [id number] [place] [address]- 2546 Oct, [facility] [address]00565[address], [place] [address] July, [facility] [id number] [place] [address]- 2546 Apr, [facility] [address]00565100[place], [place] [address]- [address] Jan, [facility] [address] [id number], [place] [address]46 Jan, IMMUNIZATIONS No Known Immunizations SOCIAL HISTORY Never Assessed REASON FOR VISIT Hydrocodone refill PLAN OF CARE VITAL SIGNS MEDICATIONS Medication Instructions Dosage Frequency Start Date End Date Duration Status Hydrocodone-Acetaminophen 7.5-325 MG Orally every 4-6 hrs PRN 1 tablet 0 days Active RESULTS No Results PROCEDURES [...] Hospitalization History surgeries, childbirth Hospitalization History [facility] [place]- Possible Stroke 05/16/2017
--- OUTSIDE RECORDS SUMMARY | 2017-09-20 06:34 | XMS REPORT ---
Author Author CATRACHITA MOLINA Organization [facility] Address [address] [place] [address] Care Team Providers Care Mechanical Detailer Name Role Phone CATRACHITA MOLINA Unavailable PROBLEMS Type Condition ICD9-CM Code [id number] Code Onset Dates Condition Status SNOMED Code Problem RLS (restless legs syndrome) G25.81 Active 11662390 Problem Encounter for immunization Z23 Active 630989288 Problem Essential hypertension I10 Active 16932219 Problem Diabetes type 2, controlled E11.9 Active 93146519 Problem Diabetic polyneuropathy associated with type 2 diabetes mellitus E11.42 Active 08578510 Problem Other chronic pain G89.29 Active 56664212 Problem Hypoglycemia E16.2 Active 104913970 Problem Reactive depression F32.9 Active 20762582 Problem Type 2 diabetes mellitus with hyperglycemia E11.65 Active 473595401058451 Problem Spinal stenosis, unspecified spinal region M48.00 Active 10302541 Problem Type 2 diabetes mellitus with other specified complication E11.69 Active 20985524036900 Problem Hyperlipidemia, unspecified E78.5 Active 48677293 ALLERGIES No Information ENCOUNTERS Encounter Location Date Diagnosis [facility] [address] [facility] [id number] [id number] Sep, Spinal stenosis, unspecified spinal region M48.00 [facility] [address] [id number] [address] Aug, [facility] [address] [id number] [address] Aug, Spinal stenosis, unspecified spinal region M48.00 [facility] [id number] [place] [address] [id number] Aug, Spinal stenosis, unspecified spinal region M48.00 [facility] [address] [id number][place] [address] July, [facility] [address] [id number] [address] July, Diabetic polyneuropathy associated with type 2 diabetes mellitus E11.42 ; Type 2 diabetes mellitus with hyperglycemia E11.65 ; RLS (restless legs syndrome ) G25.81 and Essential hypertension I10 [facility] [id number], [place] [address] July, Spinal stenosis, unspecified spinal region M48.00 [facility] [id number] [place] [address] [id number] July, [facility] [id number] [place] [address] [id number] Jun, Type 2 diabetes mellitus with other specified complication E11.69 [facility] [id number] [place] [address] [id number] Jun, Spinal stenosis, unspecified spinal region M48.00 [facility] [id number] [place] [address] [id number] Jun, Hypoglycemia E16.2 [facility] [id number] [place] [address] [id number] May, Hypoglycemia E16.2 ; Acute cystitis with hematuria N30.01 and Essential hypertension I10 [facility] [address]00565100[place], [place] [address] May, [facility] [id number], [place] [id number] May, Spinal stenosis, unspecified spinal region M48.00 [facility] [address]00565100[place] [address] May, Reactive depression F32.9 [facility] [id number], [place] [id number] May, [facility] [id number], [place] [address] Apr, [facility] [address] [id number][place] [id number] Apr, [facility] [address] [id number], [place] [id number] Apr, [facility] [address] [id number], [place] [id number] Apr, [facility] [address] [id number] [place] [address] [id number] Apr, Spinal stenosis, unspecified spinal region M48.00 [facility] [address] [id number], [place] [id number] Apr, Type 2 diabetes mellitus with other specified complication E11.69 ; Spinal stenosis, unspecified spinal region M48.00 ; Reactive depression F32.9 and Essential hypertension I10 [facility] [address] [facility] [id number][place] [id number] Apr, [facility] [address] [id number] [place] [address] [id number] Mar, Spinal stenosis, unspecified spinal region M48.00 [facility] [id number] [place] [address] [id number] Feb, Acute non-recurrent maxillary sinusitis J01.00 and Essential hypertension I10 [facility] [address] [id number], [place] 197761919 Feb, Spinal stenosis, unspecified spinal region M48.00 [facility] [id number] [place] [address] [id number] Feb, Type 2 diabetes mellitus with other specified complication E11.69 [facility] [id number] [place] [address] [id number] Feb, Type 2 diabetes mellitus with other specified complication E11.69 and Essential hypertension I10 [facility] [address] [id number], [place] [id number] Feb, [facility] [address] [id number], [place] [id number] Feb, [facility] [address] [id number] [place] [address] [id number] Jan, Spinal stenosis, unspecified spinal region M48.00 [facility] [address] [id number], [place] [id number] Jan, Diabetic polyneuropathy associated with type 2 diabetes mellitus E11.42 [facility] [address]00565100[place], [place] [address] Jan, Diabetic polyneuropathy associated with type 2 diabetes mellitus E11.42 [facility] [id number] [place] [address] [id number] Jan, Type 2 diabetes mellitus with hyperglycemia E11.65 ; Type 2 diabetes mellitus with other specified complication E11.69 ; Spinal stenosis, unspecified spinal region M48.00 and Essential hypertension I10 [facility] [id number] [place] [address] [id number] Jan, Diabetic polyneuropathy associated with type 2 diabetes mellitus E11.42 [id number] [place] [address] [id number] Dec, [id number] [place] [address] [id number] 30 Dec, 2016 Diabetic polyneuropathy associated with type 2 diabetes mellitus E11.42 ; Type 2 diabetes mellitus with other specified complication E11.69 ; Hyperlipidemia, unspecified E78.5 ; Thyroid disorder E07.9 and Thyroid disorder screening Z13.29 [facility] [address]00565100[place], [place] [address] Dec, Diabetic polyneuropathy associated with type 2 diabetes mellitus E11.42 [facility] [address] [id number] [address] 17 Dec, 2016 Diabetic polyneuropathy associated with type 2 diabetes mellitus E11.42 [address]00565100[place] [id number] Dec, Spinal stenosis, unspecified spinal region M48.00 [facility] [address]00565100[place], [place] [id number] Dec, [address]00565100[place] [id number] 18 Nov, 2016 Diabetic polyneuropathy associated with type 2 diabetes mellitus E11.42 [address]00565100[place] [id number] 15 Nov, 2016 Other chronic pain G89.29 [address]00565100[place] [id number] 14 Nov, 2016 Spinal stenosis, unspecified spinal region M48.00 [facility] [address] [id number], [place] [id number] 16 Oct, 2016 Spinal stenosis, unspecified spinal region M48.00 ; Essential hypertension I10 ; RLS (restless legs syndrome) G25.81 and Diabetic polyneuropathy associated with type 2 diabetes mellitus E11.42 [facility] [address] [id number] [place] [address] Oct, Spinal stenosis, unspecified spinal region M48.00 [facility] [address] [id number] [place] 392[address]481 Sep, Diabetic polyneuropathy associated with type 2 diabetes mellitus E11.42 ; RLS (restless legs syndrome) G25.81 ; Spinal stenosis, unspecified spinal region M48.00 and Essential hypertension I10 [facility] [address] [id number] [place] [id number] Sep, [facility] [address] [id number], [place] 982321407 Sep, Spinal stenosis, unspecified spinal region M48.00 [facility] [address] [id number], [place] [id number] Sep, [facility] [address] [id number], [place] [id number] Aug, Spinal stenosis, unspecified spinal region M48.00 [facility] [address]00565100[place], [place] [address] July, [facility] [address] [id number], [place] [id number] July, Spinal stenosis, unspecified spinal region M48.00 [facility] [address] [id number], [place] [id number] Jun, Type 2 diabetes mellitus with hyperglycemia E11.65 [facility] [address] [id number], [place] 245122405 Jun, Spinal stenosis, unspecified spinal region M48.00 [facility] [address] [id number], [place] 701103798 May, Spinal stenosis, unspecified spinal region M48.00 [facility] [address] [id number], [place] [id number] 13 Apr, 2016 Spinal stenosis, unspecified spinal region M48.00 [facility] [id number] [place] [address] Mar, [facility] [id number], [place] 856007191 Mar, Type 2 diabetes mellitus with hyperglycemia E11.65 ; RLS (restless legs syndrome) G25.81 and Spinal stenosis, unspecified spinal region M48.00 [facility] [address] [id number], [place] [address]- [address] Mar, [facility] [id number] [place] [address] [id number] Mar, [facility] [address]00565100[place], [place] [id number] Mar, [facility] [id number], [place] [id number] Feb, [facility] [id number] [place] [address] 58201- 2546 Feb, [facility] [id number] [place] [address] [id number] Feb, [facility] [id number] [place] [address] [id number] Feb, [facility] [id number] [place] [address] 40107- 2546 Feb, [facility] [id number] [place] [address]23- 2546 Feb, [facility] [id number], [place] [id number] Jan, [facility] [id number] [place] [address] [id number] Dec, Diabetic polyneuropathy associated with type 2 diabetes mellitus E11.42 ; Other chronic pain G89.29 ; Essential hypertension I10 and Encounter for immunization Z23 [facility] [id number] [place] [address] [id number] Dec, [facility] [address]00565100[place], [place] [address] Nov, [facility] [id number] [place] [address] [id number] Nov, [facility] [id number] [place] [address] [id number] 15 Nov, 2015 Diabetes type 2, controlled E11.9 [facility] [id number] [place] [address] [id number] 14 Nov, 2015 Diabetes type 2, controlled E11.9 ; Other chronic pain G89.29 ; Essential hypertension I10 ; Diabetic polyneuropathy associated with type 2 diabetes mellitus E11.42 and RLS (restless legs syndrome) G25.81 [facility] [id number] [place] [address] 07755- 3903 Nov, [facility] [id number] [place] [address] [id number] Oct, [facility] [id number] [place] [address] [id number] Oct, [facility] [id number] [place] [address] [id number] Oct, [facility] [id number] [place] [address] 02289024- 2752 Oct, [facility] [id number] [place] [address] [id number] Sep, [facility] [id number] [place] [address] [id number] Sep, [facility] [address] [place] [address] 43176- 6525 Sep, Dental examination Z01.20 [facility] [id number] [place] [address] 63933- 2416 Aug, [facility] [id number] [place] [address] [id number] Aug, [facility] [id number] [place] [address] 78406- 9998 Aug, [facility] [address] [facility] [id number], [place] [address]- [address] July, [facility] [address] [facility] [id number], [place] [address]- [address] July, [facility] [address] [facility] [id number], [place] [address]- 239[address] July, [facility] [address] [id number], [place] [id number] July, [facility] [address] [id number], [place] [id number] July, [facility] [id number] [place] [address] [id number] July, [facility] [address] [facility] [id number], [place] [address]- 25[address] July, [facility] [address] [id number], [place] [id number] Jun, Diabetes type 2, controlled E11.9 [facility] [id number] [place] [address] [id number] Jun, [facility] [address] [id number] [place] [id number] May, Diabetes type 1, uncontrolled E10.65 [facility] [address] [id number], [place] [id number] May, [facility] [address] [id number], [place] [id number] Apr, [facility] [address] [id number], [place] [id number] Apr, [facility] [address] [id number], [place] [id number] Mar, [facility] [address] [id number] [place] [id number] Mar, [facility] [address] [id number], [place] [id number] Mar, [facility] [address] [id number], [place] [id number] Mar, Diabetes type 1, uncontrolled E10.65 [facility] [address] [facility] [id number], [place] [id number] Feb, [facility] [id number], [place] [id number] Feb, [facility] [id number], [place] [id number] Feb, [facility] [place] [address] [address] [facility] [id number], [place] [id number] Jan, [facility] [id number], [place] 108575263 Jan, Dysuria R30.0 and Acute cystitis with hematuria N30.01 [facility] [id number] [place] [address] [id number] Jan, [facility] [id number] [place] [address] [id number] Dec, Gastroenteritis K52.9 and Headache, unspecified headache type R51 [facility] [id number], [place] [id number] Dec, [facility] [id number], [place] [id number] Dec, Chronic back pain 724.5 [facility] [address] [place] [id number], [place] [id number] Dec, [facility] [id number], [place] 700272994 Nov, Chronic back pain 724.5 and Diabetes mellitus without mention of complication, type II or unspecified type, uncontrolled 250.02 [facility] [address] [facility] [id number], [place] [id number] Nov, [facility] [address] [id number], [place] [id number] Oct, [facility] [id number] [place] [address] [id number] Sep, Diabetes mellitus without mention of complication, type II or unspecified type, uncontrolled 250.02 and Urinary tract infection 599.0 [facility] [id number], [place] [id number] July, [facility] [place] [facility] [address] [id number] [place] [address]- 35[address] Jun, [facility] [place] [facility] [address] [id number] [place] [address]- 2546 Jun, [facility] [address] [id number] [place] [id number] May, [facility] [place] [facility] [address] [facility] [id number] [place] [address]- 2546 May, [facility] [address] [id number] [place] [id number] May, [facility] [place] [facility] [address] [facility] [id number] [place] [address]- 2546 May, [facility] [address] [facility] [id number], [place] [id number] Mar, [facility] [place] [facility] [address] [facility] [id number], [place] [address]- 0366 Mar, [facility] [place] [facility] [address] [facility] [id number], [place] [address]- 2546 Mar, [facility] [address] [id number], [place] [id number] Mar, [facility] [address] [id number], [place] [id number] Feb, [facility] [place] [facility] [address] [facility] [id number], [place] [address]- 4[address] Feb, [facility] [address] [id number], [place] [id number] Feb, [facility] [place] [facility] [address] [facility] [id number] [place] [address]- 2546 Feb, [facility] [place] [facility] [address] [facility] [id number], [place] [address]- 2546 Feb, [facility] [address] [id number] [place] 783106300 Feb, [facility] [address] [id number], [place] [id number] Feb, [facility] [place] [facility] [address] [id number] [place] [address]- 2546 Feb, [facility] [place] [facility] [address] [id number] [place] [address]- 2546 Feb, [facility] [address] [id number] [place] [id number] Jan, [facility] [place] [facility] [address] [id number] [place] [address]- 2546 Jan, [facility] [address] [id number] [place] [id number] Jan, [facility] [place] [facility] [address] [id number] [place] [address]- 7406 Jan, [facility] [address] [facility] [id number], [place] [id number] Dec, [facility] [place] [facility] [address] [id number], [place] [address]- 3116 Dec, [facility] [place] [facility] [address] [id number] [place] [address]- 5712 Dec, [facility] [place] [facility] [address] [facility] [id number] [place] [address]- 2676 Dec, [facility] [address] [facility] [id number], [place] [id number] Dec, [facility] [place] [facility] [address] [facility] [id number], [place] [address]- 2546 Dec, [facility] [address] [id number], [place] [id number] Nov, [facility] [place] [facility] [address] [id number], [place] [address]- 2546 Nov, [facility] [address] [facility] [id number], [place] [id number] Oct, [facility] [place] [facility] [address] [facility] [id number] [place] [address]- 1136 Oct, [facility] [place] [facility] [address] [id number] [place] [address]- 2546 Sep, [facility] [address] [id number] [place] [id number] Sep, [facility] [address] [id number] [place] [id number] Aug, [facility] [place] [facility] [address] [facility] [id number] [place] [address]- 2896 Aug, [facility] [address] [id number] [place] [id number] July, [facility] [place] [facility] [address] [id number] [place] [address]- 6326 July, [facility] [address] [facility] [id number] [place] [id number] July, [facility] [place] [facility] [address] [facility] [id number] [place] [address]- 1576 July, [facility] [place] [facility] [address] [facility] [id number], [place] [address]- 2986 July, [facility] [place] [facility] [address] [facility] [id number], [place] [address]- 6384 Jun, [facility] [address] [facility] [id number], [place] [id number] Jun, [facility] [address] [facility] [id number] [place] [id number] Jun, [facility] [place] [facility] [address] [facility] [id number], [place] [address]- 1486 Jun, [facility] [place] [facility] [address] [facility] [id number], [place] [address] Jun, [facility] [place] [facility] [address] [facility] [id number] [place] [address] May, [facility] [address] [facility] [id number] [place] [id number] Apr, [facility] [place] [facility] [address] [facility] [id number], [place] [address] Apr, [facility] [address] [id number] [id number] Apr, [facility] [address] [id number] [place] [address] Apr, [facility] [address] [facility] [id number], [place] [address] Mar, [facility] [place] [facility] [address] [facility] [id number] [place] [address] Mar, [facility] [address] [id number] [place] [address] Mar, [facility] [address] [facility] [id number][place] [id number] Mar, [facility] [address] [facility] [id number], [place] [address] Mar, [facility] [place] [facility] [id number], [place] [address] Mar, [facility] [address] [facility] [id number], [place] [address] Feb, [facility] [address] [id number][place] [id number] Feb, [facility] [address] [facility] [id number], [place] [address] Feb, [facility] [address] [id number][place] [id number] Feb, [facility] [address] [facility] [id number], [place] [address] Feb, [facility] [address] [id number][place] [id number] Feb, [facility] [place] [facility] [address] [facility] [id number], [place] [address] Feb, [facility] [address] [facility] [id number] [place] [id number] Jan, [facility] [place] [facility] [address] [facility] [id number], [place] [address] Jan, [facility] [address] [facility] [id number], [place] [address] Dec, [facility] [address] [id number] [place] [id number] Dec, [facility] [address] [facility] [id number], [place] [address] Nov, [facility] [address] [id number] [place] [id number] Oct, [facility] [address] [id number] [place] [id number] Oct, [facility] [address] [id number] [place] [id number] Sep, [facility] [place] [facility] [address] [id number], [place] [address] Sep, [facility] [address] [id number] [place] [id number] Sep, [facility] [address] [id number] [place] [id number] Sep, [facility] [address] [id number] [place] [id number] Sep, [facility] [address] [id number] [place] [id number] Sep, [facility] [address] [id number] [place] [id number] Sep, [facility] [place] [facility] [address] [facility] [id number], [place] [address] Aug, [facility] [address] [id number] [place] [id number] Aug, [facility] [place] [facility] [address] [facility] [id number], [place] [address] July, [facility] [address] [id number] [place] [id number] July, [facility] [id number], [place] [address] July, [facility] [address] [id number] [place] [id number] Jun, [facility] [address] [id number] [place] [id number] Jun, [facility] [address] [id number] [place] [id number] Jun, [facility] [id number], [place] [address] Jun, [facility] [address] [id number] [place] [id number] May, [facility] [address] [id number] [place] [id number] May, [facility] [id number], [place] [address] May, [facility] [address] [id number][place] [id number] Apr, [facility] [id number], [place] [address] Apr, [facility] [address] [id number][place] [address] Apr, [facility] [address] [id number][place] [address] Apr, [facility] [id number], [place] [address] Mar, [facility] [address] [id number][place] [address] Mar, [facility] [address] [id number][place] [address] Mar, [facility] [address] [id number][place] [address] Feb, [facility] [address] [id number], [place] [address] Feb, [facility] [address] [id number][place] [address] Jan, [facility] [address] [id number][place] [address] Jan, [facility] [address] [facility] [id number], [place] [address] Jan, [facility] [address] [facility] [id number], [place] [address] Jan, [facility] [address] [id number][place] [id number] Jan, [facility] [address] [facility] [id number], [place] [address] Jan, [facility] [address] [id number][place] [id number] Dec, [facility] [address] [facility] [id number][place] [address] [address] Dec, [facility] [address] [id number], [place] [address] Dec, [facility] [address] [facility] [id number][place] [address] [address] Dec, [facility] [address] [id number][place] 133[address] Dec, [facility] [address] [id number][place] [address] Nov, [facility] [address] [id number][place] [address] Nov, [facility] [address] [id number][place] [address] Oct, [facility] [address] [id number][place] [address] Oct, [facility] [address] [id number] [place] [address] Sep, [facility] [address] [id number] [place] [address] Sep, [facility] [address] [id number], [place] [address] Sep, [facility] [address] [id number], [place] 47[address] Aug, [facility] [address] [id number] [place] [address] Aug, [facility] [address] [id number] [place] [address] July, [facility] [address] [id number] [place] [address] July, [facility] [address] [id number] [place] [address] July, [facility] [address] [id number] [place] [address] July, [facility] [id number] [place] [address] Jun, [facility] [address] [id number] [place] [address] Jun, [facility] [address] [id number] [place] [address] Jun, [facility] [address] [id number] [place] [address] Jun, [facility] [address] [id number] [place] [address] May, [facility] [address] [id number] [place] [address] May, [facility] [address] [id number] [place] [id number] Apr, [facility] [address] [id number] [place] [address] Apr, [facility] [address] [id number] [place] [address] Apr, [facility] [address] [id number] [place] [address] Apr, [facility] [address] [id number] [place] [address] Apr, [facility] [id number], [place] [address] Apr, [facility] [address] [id number], [place] [address] Apr, [facility] [address] [facility] [id number] [place] [id number] Apr, [facility] [address] [facility] [id number] [place] [address] Mar, [facility] [address] [id number], [place] [address] Feb, [facility] [facility] [address] [facility] [id number] [place] [address], [place] [address]- [address] Feb, [facility] [address] [id number] [place] [address] Feb, [facility] [place] [facility] [address] [facility] [id number] [place] [address], [place] [address] 97[address] Feb, [facility] [address] [facility] [id number] [place] [address]- [address] Jan, [facility] [place] [facility] [address] [id number], [place] [address] Jan, [facility] [place] [facility] [address] [facility] [id number], [place] [address] Jan, [facility] [place] [facility] [address] [id number], [place] [address] Dec, [facility] [place] [facility] [address] [facility] [id number], [place] [address] Dec, [facility] [place] [facility] [address] [id number], [place] [address]- [address] Aug, [facility] [place] [facility] [address] [facility] [id number], [place] [address]- [address] Aug, [facility] [facility] [address] [facility] [id number], [place] [address]- [address] Feb, [facility] [facility] [address] [facility] [id number], [place] [address]- [address] Feb, [facility] [place] [facility] [address] [facility] [id number], [place] [address]- [address] Jan, [facility] [place] [facility] [address] [id number] [place] [address]- [address] Jan, [facility] [place] [facility] [address] [id number] [place] [address]- [address] Dec, [facility] [place] [facility] [address] [id number] [place] [address]- [address]26 Dec, [facility] [place] [facility] [address] [id number] [place] [address]- [address] Dec, [facility] [place] [facility] [address] [id number] [place] [address]- 45[address] May, [facility] [place] [facility] [address] [id number] [place] [address]- [address] Mar, [facility] [place] [facility] [address] [facility] [id number] [place] [address]- [address] Feb, [facility] [place] [facility] [address] [id number] [place] [address]- 7037 Feb, [facility] [place] [facility] [address] [id number] [place] [address]- [address] Feb, [facility] [place] [facility] [address] [id number] [place] [address]- 28[address] Jan, [facility] [place] [facility] [address] [id number], [place] [address]- [address] Jan, [facility] [place] [facility] [address] [id number], [place] [address]- 4985 Oct, [facility] [place] [facility] [address] [id number] [place] [address]- [address] July, [facility] [place] [facility] [address] [id number][place]- [address] Apr, [facility] [place] [facility] [address] [id number] [place] [address]- [address] Jan, [facility] [place] [facility] [address] [facility] [id number] [place] [address]- [address] Jan, IMMUNIZATIONS No Known Immunizations SOCIAL HISTORY Never Assessed REASON FOR VISIT RX request PLAN OF CARE VITAL SIGNS MEDICATIONS Medication Instructions Dosage Frequency Start Date End Date Duration Status Safety Insulin Syringes 30G X 1/2" 1 ML as directed Apr, Active RESULTS No Results PROCEDURES No Known [...] History surgeries, childbirth Hospitalization History [facility] [place]- Possible Stroke 05/16/2017
--- OUTSIDE RECORDS SUMMARY | 2017-09-20 06:35 | XMS REPORT ---
Author Author CATRACHITA MOLINA Organization [facility] Address [address] [place] [address] Care Team Providers Care Arbitrator Name Role Phone CATRACHITA MOLINA Unavailable PROBLEMS Type Condition ICD9-CM Code [id number] Code Onset Dates Condition Status SNOMED Code Problem RLS (restless legs syndrome) G25.81 Active 16150239 Problem Encounter for immunization Z23 Active 258061685 Problem Essential hypertension I10 Active 38810852 Problem Diabetes type 2, controlled E11.9 Active 35598283 Problem Diabetic polyneuropathy associated with type 2 diabetes mellitus E11.42 Active 62638264 Problem Other chronic pain G89.29 Active 72930118 Problem Hypoglycemia E16.2 Active 071209999 Problem Reactive depression F32.9 Active 25250510 Problem Type 2 diabetes mellitus with hyperglycemia E11.65 Active 976003114183851 Problem Spinal stenosis, unspecified spinal region M48.00 Active 63998152 Problem Type 2 diabetes mellitus with other specified complication E11.69 Active 11919859039578 Problem Hyperlipidemia, unspecified E78.5 Active 63245685 ALLERGIES No Information ENCOUNTERS Encounter Location Date Diagnosis [facility] [address] [facility] [id number] [place] [id number] Sep, Spinal stenosis, unspecified spinal region M48.00 [facility] [address] [id number] [address] Aug, [facility] [address] [id number] [place] [id number] Aug, Spinal stenosis, unspecified spinal region M48.00 [facility] [id number] [place] [address] [id number] Aug, Spinal stenosis, unspecified spinal region M48.00 [facility] [address] [id number] [place] [id number] July, [facility] [address] [id number] [id number] July, Diabetic polyneuropathy associated with type 2 diabetes mellitus E11.42 ; Type 2 diabetes mellitus with hyperglycemia E11.65 ; RLS (restless legs syndrome ) G25.81 and Essential hypertension I10 [facility] [id number] [place] [id number] July, Spinal stenosis, unspecified spinal region M48.00 [facility] [id number] [place] [address] [id number] July, [facility] [id number] [place] [address] [id number] Jun, Type 2 diabetes mellitus with other specified complication E11.69 [facility] [id number] [place] [address] [id number] Jun, Spinal stenosis, unspecified spinal region M48.00 [facility] [place] [id number] [place] [address] [phone] Jun, Hypoglycemia E16.2 [facility] [id number] [place] [address] [id number] May, Hypoglycemia E16.2 ; Acute cystitis with hematuria N30.01 and Essential hypertension I10 [facility] [address]005[address]100[place] [address] May, [facility] [id number] [place] [address] May, Spinal stenosis, unspecified spinal region M48.00 [facility] [address]00565100[place] [id number] May, Reactive depression F32.9 [facility] [id number] [place] [id number] May, [facility] [id number] [place] [id number] Apr, [facility] [address] [id number][place] [id number] Apr, [facility] [address] [id number][place] [id number] Apr, [facility] [address] [id number] [place] [id number] Apr, [facility] [id number] [place] [address] [id number] Apr, Spinal stenosis, unspecified spinal region M48.00 [facility] [address] [id number] [place] [id number] Apr, Type 2 diabetes mellitus with other specified complication E11.69 ; Spinal stenosis, unspecified spinal region M48.00 ; Reactive depression F32.9 and Essential hypertension I10 [facility] [address] [facility] [id number][place] [id number] Apr, [facility] [address] [id number] [place] [address] [id number] Mar, Spinal stenosis, unspecified spinal region M48.00 [facility] [id number] [place] [address] [id number] Feb, Acute non-recurrent maxillary sinusitis J01.00 and Essential hypertension I10 [facility] [address] [id number] [place] [id number] Feb, Spinal stenosis, unspecified spinal region M48.00 [facility] [address] [id number] [place] [address] [id number] Feb, Type 2 diabetes mellitus with other specified complication E11.69 [facility] [address] [id number] [place] [address] [id number] Feb, Type 2 diabetes mellitus with other specified complication E11.69 and Essential hypertension I10 [facility] [address] [id number] [place] [id number] Feb, [facility] [address] [id number] [place] [id number] Feb, [facility] [address] [id number] [place] [address] [id number] Jan, Spinal stenosis, unspecified spinal region M48.00 [facility] [address] [id number] [place] 15509[address] Jan, Diabetic polyneuropathy associated with type 2 diabetes mellitus E11.42 [facility] [address]00565100[place] [address] Jan, Diabetic polyneuropathy associated with type 2 diabetes mellitus E11.42 [facility] [id number] [place] [address] [id number] Jan, Type 2 diabetes mellitus with hyperglycemia E11.65 ; Type 2 diabetes mellitus with other specified complication E11.69 ; Spinal stenosis, unspecified spinal region M48.00 and Essential hypertension I10 [facility] [id number] [place] [address] [id number] Jan, Diabetic polyneuropathy associated with type 2 diabetes mellitus E11.42 [id number] [place] [address] [id number] Dec, [id number] [place] [address] [id number] 30 Dec, 2016 Diabetic polyneuropathy associated with type 2 diabetes mellitus E11.42 ; Type 2 diabetes mellitus with other specified complication E11.69 ; Hyperlipidemia, unspecified E78.5 ; Thyroid disorder E07.9 and Thyroid disorder screening Z13.29 [facility] [address]00565100[place] [id number] Dec, Diabetic polyneuropathy associated with type 2 diabetes mellitus E11.42 [facility] [address] [id number] 17 Dec, 2016 Diabetic polyneuropathy associated with type 2 diabetes mellitus E11.42 [address]00565100[place] [id number] Dec, Spinal stenosis, unspecified spinal region M48.00 [facility] [address]00565100[place] [id number] Dec, [address]00565100[place] [id number] 18 Nov, 2016 Diabetic polyneuropathy associated with type 2 diabetes mellitus E11.42 [address]00565100[place] [id number] 15 Nov, 2016 Other chronic pain G89.29 [address]00565100[place] [id number] 14 Nov, 2016 Spinal stenosis, unspecified spinal region M48.00 [facility] [address] [id number] [place] [id number] 16 Oct, 2016 Spinal stenosis, unspecified spinal region M48.00 ; Essential hypertension I10 ; RLS (restless legs syndrome) G25.81 and Diabetic polyneuropathy associated with type 2 diabetes mellitus E11.42 [facility] [address] [id number] [place] [id number] Oct, Spinal stenosis, unspecified spinal region M48.00 [facility] [address] [id number] [place] [id number] Sep, Diabetic polyneuropathy associated with type 2 diabetes mellitus E11.42 ; RLS (restless legs syndrome) G25.81 ; Spinal stenosis, unspecified spinal region M48.00 and Essential hypertension I10 [facility] [address] [id number] [place] [id number] Sep, [facility] [address] [id number] [place] [id number] Sep, Spinal stenosis, unspecified spinal region M48.00 [facility] [address] [id number] [place] [id number] Sep, [facility] [address] [id number] [place] [id number] Aug, Spinal stenosis, unspecified spinal region M48.00 [facility] [address]00565100[place], [place] [address] July, [facility] [address] [id number] [place] [id number] July, Spinal stenosis, unspecified spinal region M48.00 [facility] [address] [id number] [place] [id number] Jun, Type 2 diabetes mellitus with hyperglycemia E11.65 [facility] [address] [id number] [place] [id number] Jun, Spinal stenosis, unspecified spinal region M48.00 [facility] [address] [id number] [place] [id number] May, Spinal stenosis, unspecified spinal region M48.00 [facility] [address] [id number] [place] [id number] 13 Apr, 2016 Spinal stenosis, unspecified spinal region M48.00 [facility] [id number] [place] [place] [address] Mar, [facility] [id number] [place] [id number] Mar, Type 2 diabetes mellitus with hyperglycemia E11.65 ; RLS (restless legs syndrome) G25.81 and Spinal stenosis, unspecified spinal region M48.00 [facility] [address] [id number] [address] Mar, [facility] [id number] [place] [address] [id number] Mar, [facility] [address]00565100[place] [id number] Mar, [facility] [id number] [place] [id number] Feb, [facility] [id number] [place] [address] 032[address]- 2546 Feb, [facility] [id number] [place] [address] [id number] Feb, [facility] [id number] [place] [address] [id number] Feb, [facility] [id number] [place] [address] 92027- 2546 Feb, [facility] [id number] [place] [address] 17812- 2546 Feb, [facility] [id number] [place] [id number] Jan, [facility] [id number] [place] [address] [id number] Dec, Diabetic polyneuropathy associated with type 2 diabetes mellitus E11.42 ; Other chronic pain G89.29 ; Essential hypertension I10 and Encounter for immunization Z23 [facility] [id number] [place] [address] [id number] Dec, [facility] [address]00565100[place], [place] [address]- [address] Nov, [facility] [id number] [place] [address] [id number] Nov, [facility] [id number] [place] [address] [id number] 15 Nov, 2015 Diabetes type 2, controlled E11.9 [facility] [id number] [place] [address] [id number] 14 Nov, 2015 Diabetes type 2, controlled E11.9 ; Other chronic pain G89.29 ; Essential hypertension I10 ; Diabetic polyneuropathy associated with type 2 diabetes mellitus E11.42 and RLS (restless legs syndrome) G25.81 [facility] [id number] [place] [place] [address] 66047- 6772 Nov, [facility] [id number] [place] [address] [id number] Oct, [facility] [id number] [place] [address] [id number] Oct, [facility] [id number] [place] [address] [id number] Oct, [facility] [id number] [place] [address] [id number] 2246 Oct, [facility] [id number] [place] [address] [id number] Sep, [facility] [id number] [place] [address] [id number] Sep, [facility] [address] [place] [address] 93453- 1088 Sep, Dental examination Z01.20 [facility] [id number] [place] [place] [address] 08881- 1264 Aug, [facility] [id number] [place] [address] [id number] Aug, [facility] [id number] [place] [address] 79366- 9197 Aug, [facility] [address] [facility] [id number] [address]- [address] July, [facility] [address] [facility] [id number], [place] [address]- [address] July, [facility] [address] [facility] [id number], [place] [address]- 7[address] July, [facility] [address] [id number] [place] [id number] July, [facility] [address] [id number] [place] [id number] July, [facility] [id number] [place] [address] [id number] July, [facility] [address] [facility] [id number], [place] [address]- [address]46 July, [facility] [address] [id number] [place] [id number] Jun, Diabetes type 2, controlled E11.9 [facility] [id number] [place] [address] [id number] Jun, [facility] [address] [id number] [place] [id number] May, Diabetes type 1, uncontrolled E10.65 [facility] [address] [id number] [place] [id number] May, [facility] [address] [id number] [place] [id number] Apr, [facility] [address] [id number] [place] [id number] Apr, [facility] [address] [id number] [place] [id number] Mar, [facility] [address] [id number] [place] [id number] Mar, [facility] [address] [id number] [place] [id number] Mar, [facility] [address] [id number] [place] [id number] Mar, Diabetes type 1, uncontrolled E10.65 [facility] [address] [facility] [id number] [place] [id number] Feb, [facility] [id number] [place] [id number] Feb, [facility] [id number] [place] [id number] Feb, [facility] [address] [address] [facility] [id number][place] [id number] Jan, [facility] [id number] [place] [id number] Jan, Dysuria R30.0 and Acute cystitis with hematuria N30.01 [facility] [id number] [place] [address] [id number] Jan, [facility] [id number] [place] [address] [id number] Dec, Gastroenteritis K52.9 and Headache, unspecified headache type R51 [facility] [id number] [place] [id number] Dec, [facility] [id number] [place] [id number] Dec, Chronic back pain 724.5 [facility] [address] [place] [id number] [id number] Dec, [facility] [id number] [place] [id number] Nov, Chronic back pain 724.5 and Diabetes mellitus without mention of complication, type II or unspecified type, uncontrolled 250.02 [facility] [address] [facility] [id number] [place] [id number] Nov, [facility] [address] [id number] [place] [id number] Oct, [facility] [id number] [place] [address] [id number] Sep, Diabetes mellitus without mention of complication, type II or unspecified type, uncontrolled 250.02 and Urinary tract infection 599.0 [facility] [id number] [place] [id number] July, [facility] [place] [facility] [address] [id number] [place] [address]- 9686 Jun, [facility] [place] [facility] [address] [id number] [place] [address]- 2546 Jun, [facility] [address] [id number] [place] [id number] May, [facility] [place] [facility] [address] [facility] [id number] [place] [address]- 2546 May, [facility] [address] [id number] [place] 038479562 May, [facility] [place] [facility] [address] [facility] [id number] [place] [address]- 2546 May, [facility] [address] [facility] [id number] [place] [id number] Mar, [facility] [place] [facility] [address] [facility] [id number], [place] [address]- 9226 Mar, [facility] [place] [facility] [address] [facility] [id number], [place] [address]- 2546 Mar, [facility] [address] [id number] [place] [id number] Mar, [facility] [address] [id number] [place] [id number] Feb, [facility] [place] [facility] [address] [facility] [id number], [place] [address]- 5216 Feb, [facility] [address] [id number] [place] 926583781 Feb, [facility] [place] [facility] [address] [facility] [id number] [place] [address]- 2546 Feb, [facility] [place] [facility] [address] [facility] [id number], [place] [address]- 2546 Feb, [facility] [address] [id number] [place] 6457079[address] Feb, [facility] [address] [id number] [place] [id number] Feb, [facility] [place] [facility] [address] [id number] [place] [address]- 2546 Feb, [facility] [place] [facility] [address] [id number] [place] [address]- 2546 Feb, [facility] [address] [id number] [place] [id number] Jan, [facility] [place] [facility] [address] [id number] [place] [address]- 2546 Jan, [facility] [address] [id number] [place] [id number] Jan, [facility] [place] [facility] [address] [id number] [place] [address]- 6476 Jan, [facility] [address] [facility] [id number] [place] 877994759 Dec, [facility] [place] [facility] [address] [id number], [place] [address]- 3896 Dec, [facility] [place] [facility] [address] [id number] [place] [address]- 9576 Dec, [facility] [place] [facility] [address] [facility] [id number] [place] [address]- 0096 Dec, [facility] [address] [facility] [id number] [place] [id number] Dec, [facility] [place] [facility] [address] [facility] [id number], [place] [address]- 2546 Dec, [facility] [address] [id number] [place] [id number] Nov, [facility] [place] [facility] [address] [id number], [place] [address]- 2546 Nov, [facility] [address] [facility] [id number] [place] [id number] Oct, [facility] [place] [facility] [address] [facility] [id number] [place] [address]- 2236 Oct, [facility] [place] [facility] [address] [id number] [place] [address]- 2546 Sep, [facility] [address] [id number] [place] 985293598 Sep, [facility] [address] [id number] [place] [id number] Aug, [facility] [place] [facility] [address] [facility] [id number] [place] [address]- 2336 Aug, [facility] [address] [id number] [place] [id number] July, [facility] [place] [facility] [address] [id number] [place] [address]- 2486 July, [facility] [address] [facility] [id number] [place] [id number] July, [facility] [place] [facility] [address] [facility] [id number] [place] [address]- 5536 July, [facility] [place] [facility] [address] [facility] [id number], [place] [address]- 7856 July, [facility] [place] [facility] [address] [facility] [id number], [place] [address]- 9504 Jun, [facility] [address] [facility] [id number] [place] 057328210 Jun, [facility] [address] [facility] [id number] [place] 1477985[address] Jun, [facility] [place] [facility] [address] [facility] [id number], [place] [address] Jun, [facility] [place] [facility] [address] [facility] [id number], [place] [address] Jun, [facility] [place] [facility] [address] [facility] [id number] [place] [address] May, [facility] [address] [facility] [id number] [place] [id number] Apr, [facility] [place] [facility] [address] [facility] [id number], [place] [address] Apr, [facility] [address] [id number] [place] [id number] Apr, [facility] [address] [id number] [place] [address] Apr, [facility] [address] [facility] [id number], [place] [address] Mar, [facility] [place] [facility] [address] [facility] [id number] [place] [address] Mar, [facility] [address] [id number] [place] [address] Mar, [facility] [address] [facility] [id number] [place] [id number] Mar, [facility] [address] [facility] [id number], [place] [address] Mar, [facility] [place] [facility] [id number], [place] [address] Mar, [facility] [address] [facility] [id number], [place] [address] Feb, [facility] [address] [id number] [place] [id number] Feb, [facility] [address] [facility] [id number], [place] [address] Feb, [facility] [address] [id number] [place] [id number] Feb, [facility] [address] [facility] [id number], [place] [address] Feb, [facility] [address] [id number] [place] [id number] Feb, [facility] [place] [facility] [address] [facility] [id number], [place] [address] Feb, [facility] [address] [facility] [id number] [place] [id number] Jan, [facility] [place] [facility] [address] [facility] [id number], [place] [address] Jan, [facility] [address] [facility] [id number], [place] [address] Dec, [facility] [address] [id number] [place] [id number] Dec, [facility] [address] [facility] [id number], [place] [address] Nov, [facility] [address] [id number] [place] [id number] Oct, [facility] [address] [address] [id number] [place] [id number] Oct, [facility] [address] [id number] [place] [id number] Sep, [facility] [place] [facility] [address] [id number] [address] Sep, [facility] [address] [id number] [place] [id number] Sep, [facility] [address] [id number] [place] [id number] Sep, [facility] [address] [id number] [place] [id number] Sep, [facility] [address] [id number] [place] [address] Sep, [facility] [address] [id number] [place] [id number] Sep, [facility] [place] [facility] [address] [facility] [id number], [place] [address] Aug, [facility] [address] [id number] [place] [id number] Aug, [facility] [place] [facility] [address] [facility] [id number], [place] [address] July, [facility] [address] [id number] [place] [id number] July, [facility] [address]005[address], [place] [address] July, [facility] [address] [id number] [place] [id number] Jun, [facility] [address] [id number] [place] [address] Jun, [facility] [address] [id number] [place] [address] Jun, [facility] [address], [place] [address] Jun, [facility] [address] [id number] [place] [id number] May, [facility] [address] [id number] [place] [id number] May, [facility] [address], [place] [address] May, [facility] [address] [id number] [place] [id number] Apr, [facility] [address]65[address], [place] [address] Apr, [facility] [address] [id number] [place] [id number] Apr, [facility] [address] [id number] [place] [address] Apr, [facility] [address]00565[address], [place] [address] Mar, [facility] [address] [id number] [place] [id number] Mar, [facility] [address] [id number] [place] [address] Mar, [facility] [address] [id number] [place] [address] Feb, [facility] [place] [facility] [address] [id number], [place] [address] Feb, [facility] [address] [id number] [place] [id number] Jan, [facility] [address] [id number] [place] [address] Jan, [facility] [place] [facility] [address] [facility] [id number], [place] [address] Jan, [facility] [place] [address] [facility] [id number], [place] [address] Jan, [facility] [address] [id number] [place] [id number] Jan, [facility] [place] [facility] [address] [facility] [id number], [place] [address] Jan, [facility] [address] [id number] [place] [id number] Dec, [facility] [facility] [address] [facility] [id number][place] [address] [address] Dec, [facility] [address] [id number] [place] [id number] Dec, [facility] [address] [facility] [id number], [place] 1947[address] Dec, [facility] [address] [id number] [place] [address] Dec, [facility] [address] [id number] [place] [id number] Nov, [facility] [address] [id number] [place] [id number] Nov, [facility] [address] [id number] [place] 14[place]707 Oct, [facility] [address] [id number] [place] [address] Oct, [facility] [address] [id number] [place] [address] Sep, [facility] [address] [id number] [place] [address] Sep, [facility] [address] [id number] [place] [address] Sep, [facility] [address] [id number] [place] [address] Aug, [facility] [address] [id number] [place] [address] Aug, [facility] [address] [id number] [place] [address] July, [facility] [address] [id number] [place] [address] July, [facility] [address] [id number] [place] [address] July, [facility] [address] [id number] [place] [address] July, [facility] [id number] [place] [place] [address] Jun, [facility] [address] [id number] [place] [address] Jun, [facility] [address] [id number] [place] [address] Jun, [facility] [address] [id number] [place] 587[address] Jun, [facility] [address] [id number] [place] [address] May, [facility] [address] [id number] [place] [address] May, [facility] [address] [id number] [place] [address] Apr, [facility] [address] [id number] [place] 565[address] Apr, [facility] [address] [id number] [place] 80[place] Apr, [facility] [address] [id number] [place] [address] Apr, [facility] [address] [id number] [place] [address] Apr, [facility] [address], [place] [address] Apr, [facility] [address] [id number] [place] [id number] Apr, [facility] [place] [address] [facility] [id number] [place] [address] Apr, [facility] [place] [address] [facility] [id number] [place] [id number] Mar, [facility] [address] [id number], [place] [address] Feb, [facility] [place] [facility] [address] [facility] [id number] [place] [address], [place] [address] Feb, [facility] [address] [id number] [place] [address] Feb, [facility] [place] [facility] [address] [facility] [id number] [place] [address], [place] [address]- [address] Feb, [facility] [address] [facility] [id number] [place] [address]- [address] Jan, [facility] [place] [facility] [address] [id number], [place] [address]- [address] Jan, [facility] [place] [facility] [address] [facility] [id number], [place] [address]- [address] Jan, [facility] [place] [facility] [address] [id number], [place] [address]- [address] Dec, [facility] [place] [facility] [address] [facility] [id number], [place] [address]- [address] Dec, [facility] [place] [facility] [address] [id number], [place] [address]- [address] Aug, [facility] [place] [facility] [address] [facility] [id number], [place] [address]- [address] Aug, [facility] [place] [facility] [address] [facility] [id number], [place] [address]- [address] Feb, [facility] [place] [facility] [address] [facility] [id number], [place] [address]- 9[address] Feb, [facility] [place] [facility] [address] [facility] [id number], [place] [address]- [address] Jan, [facility] [place] [facility] [address] [id number] [place] [address]- [address] Jan, [facility] [place] [facility] [address] [id number] [place] [address]- [address] Dec, [facility] [place] [facility] [address] [id number] [place] [address]- [address] Dec, [facility] [place] [facility] [address] [id number] [place] [address]- [address] Dec, [facility] [place] [facility] [address] [id number] [place] [address]- [address] May, [facility] [place] [facility] [address] [id number] [place] [address]- 27[address] Mar, [facility] [place] [facility] [address] [facility] [id number] [place] [address]- 8959 Feb, [facility] [place] [facility] [address] [id number] [place] [address]- 0068 Feb, [facility] [place] [facility] [address] [id number] [place] [address]- 7[address] Feb, [facility] [place] [facility] [address] [id number] [place] [address]- 2046 Jan, [facility] [place] [facility] [address] [id number], [place] [address]- 77[address] Jan, [facility] [place] [facility] [address] [id number], [place] [address]- 2668 Oct, [facility] [place] [facility] [address] [id number] [place] [address]- [address]684 July, [facility] [place] [facility] [address] [id number] [address] Apr, [facility] [place] [facility] [address] [id number] [place] [address]- 264[address] Jan, [facility] [place] [facility] [address] [facility] [id number] [place] [address]- [address] Jan, IMMUNIZATIONS No Known Immunizations SOCIAL HISTORY Never Assessed REASON FOR VISIT RX-Hydrocodone refill PLAN OF CARE VITAL SIGNS MEDICATIONS Medication Instructions Dosage Frequency Start Date End Date Duration Status Hydrocodone-Acetaminophen 7.5-325 MG Orally every 4-6 hrs PRN, Must last 28 days 1 tablet 14 Apr, 2017 Active RESULTS No Results PROCEDURES No Known [...] History surgeries, childbirth Hospitalization History [facility]- Possible Stroke 05/16/2017
--- OUTSIDE RECORDS SUMMARY | 2017-09-20 06:35 | XMS REPORT ---
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 Name Role Phone CATRACHITA MOLINA Unavailable PROBLEMS Type Condition ICD9-CM Code FJB71-BC Code Onset Dates Condition Status SNOMED Code Problem RLS (restless legs syndrome) G25.81 Active 22903882 Problem Encounter for immunization Z23 Active 768620159 Problem Essential hypertension I10 Active 68799483 Problem Diabetes type 2, controlled E11.9 Active 07421011 Problem Diabetic polyneuropathy associated with type 2 diabetes mellitus E11.42 Active 28227214 Problem Other chronic pain G89.29 Active 08278159 Problem Hypoglycemia E16.2 Active 170924917 Problem Reactive depression F32.9 Active 97232461 Problem Type 2 diabetes mellitus with hyperglycemia E11.65 Active 212320399447502 Problem Spinal stenosis, unspecified spinal region M48.00 Active 66371855 Problem Type 2 diabetes mellitus with other specified complication E11.69 Active 81492665415198 Problem Hyperlipidemia, unspecified E78.5 Active 67091276 ALLERGIES No Information ENCOUNTERS Encounter Location Date Diagnosis [facility] [address] [facility] [id number] [id number] Sep, Spinal stenosis, unspecified spinal region M48.00 [facility] [address] [id number] [address] Aug, [facility] [address] [id number][place] [address] Aug, Spinal stenosis, unspecified spinal region M48.00 [facility] [id number] [place] [address] [id number] Aug, Spinal stenosis, unspecified spinal region M48.00 [facility] [address] [id number] [id number] July, [facility] [address] [id number] [id number] July, Diabetic polyneuropathy associated with type 2 diabetes mellitus E11.42 ; Type 2 diabetes mellitus with hyperglycemia E11.65 ; RLS (restless legs syndrome ) G25.81 and Essential hypertension I10 [facility] [id number], [place] [address]2874 July, Spinal stenosis, unspecified spinal region M48.00 [facility] [id number] [place] [address] [id number] July, [facility] [id number] [place] [address] [id number] Jun, Type 2 diabetes mellitus with other specified complication E11.69 [facility] [id number] [place] [address] [id number] Jun, Spinal stenosis, unspecified spinal region M48.00 [facility] [id number] [place] [address] [id number] Jun, Hypoglycemia E16.2 [facility] [id number] [place] [address] [id number] May, Hypoglycemia E16.2 ; Acute cystitis with hematuria N30.01 and Essential hypertension I10 [facility] [address]00565100[place] [address] May, [facility] [id number], [place] [id number] May, Spinal stenosis, unspecified spinal region M48.00 [facility] [address]00565100[place] [id number] May, Reactive depression F32.9 [facility] [id number], [place] [id number] May, [facility] [id number], [place] [id number] Apr, [facility] [address] [id number], [place] [id number] Apr, [facility] [address] [id number], [place] [phone] Apr, [facility] [address] [id number], [place] [id number] Apr, [facility] [address] [id number] [place] [address] [id number] Apr, Spinal stenosis, unspecified spinal region M48.00 [facility] [address] [id number], [place] [id number] Apr, Type 2 diabetes mellitus with other specified complication E11.69 ; Spinal stenosis, unspecified spinal region M48.00 ; Reactive depression F32.9 and Essential hypertension I10 [facility] [address] [facility] [id number][place] [id number] Apr, [facility] [id number] [place] [address] [id number] Mar, Spinal stenosis, unspecified spinal region M48.00 [facility] [id number] [place] [address] [id number] Feb, Acute non-recurrent maxillary sinusitis J01.00 and Essential hypertension I10 [facility] [address] [id number], [place] [id number] Feb, Spinal stenosis, unspecified spinal region M48.00 [facility] [address] [id number] [place] [address] [id number] Feb, Type 2 diabetes mellitus with other specified complication E11.69 [facility] [address] [id number] [place] [address] [id number] Feb, Type 2 diabetes mellitus with other specified complication E11.69 and Essential hypertension I10 [facility] [address] [id number], [place] [id number] Feb, [facility] [address] [id number], [place] [id number] Feb, [facility] [address] [id number] [place] [address] [id number] Jan, Spinal stenosis, unspecified spinal region M48.00 [facility] [address] [id number], [place] [id number] Jan, Diabetic polyneuropathy associated with type 2 diabetes mellitus E11.42 [facility] [address]00565100[place], [place] [address] Jan, Diabetic polyneuropathy associated with type 2 diabetes mellitus E11.42 [facility] [id number] [place] [address] [id number] Jan, Type 2 diabetes mellitus with hyperglycemia E11.65 ; Type 2 diabetes mellitus with other specified complication E11.69 ; Spinal stenosis, unspecified spinal region M48.00 and Essential hypertension I10 [facility] [id number] [place] [address] [id number] Jan, Diabetic polyneuropathy associated with type 2 diabetes mellitus E11.42 [address] [place] [address] [id number] Dec, [id number] [place] [address] [id number] 30 Dec, 2016 Diabetic polyneuropathy associated with type 2 diabetes mellitus E11.42 ; Type 2 diabetes mellitus with other specified complication E11.69 ; Hyperlipidemia, unspecified E78.5 ; Thyroid disorder E07.9 and Thyroid disorder screening Z13.29 [facility] [address]00565100[place] [id number] Dec, Diabetic polyneuropathy associated with type 2 diabetes mellitus E11.42 [facility] [address] [id number] [address] 17 Dec, 2016 Diabetic polyneuropathy associated with type 2 diabetes mellitus E11.42 [address]00565100[place], [place] [id number] Dec, Spinal stenosis, unspecified spinal region M48.00 [facility] [address]00565100[place], [place] [id number] Dec, [address]00565100[place], [place] [id number] 18 Nov, 2016 Diabetic polyneuropathy associated with type 2 diabetes mellitus E11.42 [address]00565100[place] [id number] 15 Nov, 2016 Other chronic pain G89.29 [address]00565100[place] [id number] 14 Nov, 2016 Spinal stenosis, unspecified spinal region M48.00 [facility] [address] [id number], [place] [id number] 16 Oct, 2016 Spinal stenosis, unspecified spinal region M48.00 ; Essential hypertension I10 ; RLS (restless legs syndrome) G25.81 and Diabetic polyneuropathy associated with type 2 diabetes mellitus E11.42 [facility] [address] [id number] [place] [id number] Oct, Spinal stenosis, unspecified spinal region M48.00 [facility] [address] [id number] [place] [id number] Sep, Diabetic polyneuropathy associated with type 2 diabetes mellitus E11.42 ; RLS (restless legs syndrome) G25.81 ; Spinal stenosis, unspecified spinal region M48.00 and Essential hypertension I10 [facility] [address] [id number] [place] [id number] Sep, [facility] [address] [id number], [place] [id number] Sep, Spinal stenosis, unspecified spinal region M48.00 [facility] [address] [id number], [place] [id number] Sep, [facility] [address] [id number], [place] [id number] Aug, Spinal stenosis, unspecified spinal region M48.00 [facility] [address]00565100[place], [place] [address] July, [facility] [address] [id number], [place] [id number] July, Spinal stenosis, unspecified spinal region M48.00 [facility] [address] [id number], [place] [id number] Jun, Type 2 diabetes mellitus with hyperglycemia E11.65 [facility] [address] [id number], [place] [id number] Jun, Spinal stenosis, unspecified spinal region M48.00 [facility] [address] [id number], [place] [id number] May, Spinal stenosis, unspecified spinal region M48.00 [facility] [address] [id number], [place] [id number] 13 Apr, 2016 Spinal stenosis, unspecified spinal region M48.00 [facility] [id number] [place] [address] Mar, [facility] [id number], [place] [id number] Mar, Type 2 diabetes mellitus with hyperglycemia E11.65 ; RLS (restless legs syndrome) G25.81 and Spinal stenosis, unspecified spinal region M48.00 [facility] [address] [id number], [place] [address] Mar, [facility] [id number] [place] [address] [id number] Mar, [facility] [address]00565100[place], [place] [id number] Mar, [facility] [id number], [place] [id number] Feb, [facility] [id number] [place] [address] 27164- 2546 Feb, [facility] [id number] [place] [address] [id number] Feb, [facility] [id number] [place] [address] [id number] Feb, [facility] [id number] [place] [address] 89533- 2546 Feb, [facility] [id number] [place] [address] 35551- 2546 Feb, [facility] [id number], [place] [id number] Jan, [facility] [id number] [place] [address] [id number] Dec, Diabetic polyneuropathy associated with type 2 diabetes mellitus E11.42 ; Other chronic pain G89.29 ; Essential hypertension I10 and Encounter for immunization Z23 [facility] [id number] [place] [address] [id number] Dec, [facility] [address]00565100[place], [place] [address]- 0[address] Nov, [facility] [id number] [place] [address] [id number] Nov, [facility] [id number] [place] [address] [id number] 15 Nov, 2015 Diabetes type 2, controlled E11.9 [facility] [id number] [place] [address] [id number] 14 Nov, 2015 Diabetes type 2, controlled E11.9 ; Other chronic pain G89.29 ; Essential hypertension I10 ; Diabetic polyneuropathy associated with type 2 diabetes mellitus E11.42 and RLS (restless legs syndrome) G25.81 [facility] [id number] [place] [address] 81101- 6325 Nov, [facility] [id number] [place] [address] [id number] Oct, [facility] [id number] [place] [address] [id number] Oct, [facility] [id number] [place] [address] [id number] Oct, [facility] [id number] [place] [address] [id number]- 3295 Oct, [facility] [id number] [place] [address] [id number] Sep, [facility] [id number] [place] [address] [id number] Sep, [facility] [address] [place] [address] 86420- 3661 Sep, Dental examination Z01.20 [facility] [id number] [place] [address] 74413- 7380 Aug, [facility] [id number] [place] [address] [id number] Aug, [facility] [id number] [place] [address] 14136- 3458 Aug, [facility] [address] [facility] [id number], [place] [address]- [address] July, [facility] [address] [facility] [facility] [id number], [place] [address]- [address] July, [facility] [address] [facility] [facility] [id number], [place] [address]- [address] July, [facility] [address] [id number], [place] [id number] July, [facility] [address] [id number], [place] [id number] July, [facility] [address] [id number] [place] [address] [id number] July, [facility] [address] [facility] [id number], [place] [address]- 2546 July, [facility] [address] [id number], [place] [phone] Jun, Diabetes type 2, controlled E11.9 [facility] [id number] [place] [address] [id number] Jun, [facility] [address] [id number] [place] [id number] May, Diabetes type 1, uncontrolled E10.65 [facility] [address] [id number], [place] [id number] May, [facility] [address] [id number], [place] [id number] Apr, [facility] [address] [id number], [place] [id number] Apr, [facility] [address] [id number], [place] [id number] Mar, [facility] [address] [id number] [place] [id number] Mar, [facility] [address] [id number], [place] [id number] Mar, [facility] [address] [id number], [place] [id number] Mar, Diabetes type 1, uncontrolled E10.65 [facility] [address] [facility] [id number], [place] [id number] Feb, [facility] [id number], [place] [id number] Feb, [facility] [id number], [place] [id number] Feb, [facility] [place] [address] [facility] [id number], [place] [id number] Jan, [facility] [id number], [place] [id number] Jan, Dysuria R30.0 and Acute cystitis with hematuria N30.01 [facility] [id number] [place] [address] [id number] Jan, [facility] [id number] [place] [address] [id number] Dec, Gastroenteritis K52.9 and Headache, unspecified headache type R51 [facility] [id number], [place] [id number] Dec, [facility] [id number], [place] [id number] Dec, Chronic back pain 724.5 [facility] [address] [place] [address]00565[place], [place] [id number] Dec, [facility] [id number], [place] [id number] Nov, Chronic back pain 724.5 and Diabetes mellitus without mention of complication, type II or unspecified type, uncontrolled 250.02 [facility] [address] [facility] [id number], [place] [id number] Nov, [facility] [address] [id number], [place] [id number] Oct, [facility] [id number] [place] [address] [id number] Sep, Diabetes mellitus without mention of complication, type II or unspecified type, uncontrolled 250.02 and Urinary tract infection 599.0 [facility] [id number], [place] [id number] July, [facility] [place] [facility] [address] [id number] [place] [address]- 1306 Jun, [facility] [place] [facility] [address] [id number] [place] [address]- 2546 Jun, [facility] [address] [id number] [place] [id number] May, [facility] [place] [facility] [address] [facility] [id number] [place] [address]- 2546 May, [facility] [address] [id number] [place] [id number] May, [facility] [place] [facility] [address] [facility] [id number] [place] [address]- 2546 May, [facility] [address] [facility] [id number], [place] [id number] Mar, [facility] [place] [facility] [address] [facility] [facility] [id number], [place] [address]- 5[address] Mar, [facility] [place] [facility] [address] [facility] [id number], [place] [address]- 2546 Mar, [facility] [address] [id number], [place] [id number] Mar, [facility] [address] [id number], [place] [id number] Feb, [facility] [place] [facility] [address] [facility] [facility] [id number], [place] [address]- 0186 Feb, [facility] [address] [id number], [place] [id number] Feb, [facility] [place] [facility] [address] [facility] [facility] [id number] [place] [address]- 2546 Feb, [facility] [place] [facility] [address] [facility] [facility] [id number], [place] [address]- 2546 Feb, [facility] [address] [id number] [place] [id number] Feb, [facility] [address] [id number], [place] [id number] Feb, [facility] [place] [facility] [address] [id number] [place] [address]- 2546 Feb, [facility] [place] [facility] [address] [id number] [place] [address]- 2546 Feb, [facility] [address] [id number] [place] [id number] Jan, [facility] [place] [facility] [address] [id number] [place] [address]- 2546 Jan, [facility] [address] [id number] [place] [id number] Jan, [facility] [place] [facility] [address] [id number] [place] [address]- 2876 Jan, [facility] [address] [facility] [id number], [place] [id number] Dec, [facility] [place] [facility] [address] [id number], [place] [address]- 7616 Dec, [facility] [place] [facility] [address] [id number] [place] [address]- 1882 Dec, [facility] [place] [facility] [address] [facility] [address] [facility] [id number] [place] [address]- 7116 Dec, [facility] [address] [facility] [id number], [place] [id number] Dec, [facility] [place] [facility] [address] [facility] [facility] [id number], [place] [address]- 2546 Dec, [facility] [address] [id number], [place] [id number] Nov, [facility] [place] [facility] [address] [id number], [place] [address]- 2546 Nov, [facility] [address] [facility] [id number], [place] [id number] Oct, [facility] [place] [facility] [address] [facility] [facility] [id number] [place] [address]- 2336 Oct, [facility] [place] [facility] [address] [id number] [place] [address]- 2546 Sep, [facility] [address] [id number] [place] [id number] Sep, [facility] [address] [id number] [place] [id number] Aug, [facility] [place] [facility] [address] [facility] [address] [facility] [id number] [place] [address]- 0106 Aug, [facility] [address] [id number] [place] [id number] July, [facility] [place] [facility] [address] [id number] [place] [address]- 8626 July, [facility] [address] [facility] [id number] [place] [id number] July, [facility] [place] [facility] [address] [facility] [address] [facility] [id number] [place] [address]- 4146 July, [facility] [place] [facility] [address] [facility] [address] [facility] [id number], [place] [address]- 0176 July, [facility] [place] [facility] [address] [facility] [address] [facility] [id number], [place] [address] Jun, [facility] [address] [facility] [id number][place] [id number] Jun, [facility] [address] [facility] [id number] [place] [id number] Jun, [facility] [place] [facility] [address] [facility] [facility] [id number], [place] [address] Jun, [facility] [place] [facility] [address] [facility] [facility] [id number], [place] [address] Jun, [facility] [place] [facility] [address] [facility] [facility] [id number] [place] [address] May, [facility] [address] [facility] [id number] [place] [id number] Apr, [facility] [place] [facility] [address] [facility] [facility] [id number], [place] [address] Apr, [facility] [address] [id number][place] [id number] Apr, [facility] [address] [id number] [place] [address] Apr, [facility] [address] [facility] [facility] [id number], [place] [address] Mar, [facility] [place] [facility] [address] [facility] [facility] [id number] [place] [address] Mar, [facility] [address] [id number] [place] [address] Mar, [facility] [address] [facility] [id number][place] [id number] Mar, [facility] [address] [facility] [facility] [id number], [place] [address] Mar, [facility] [place] [facility] [id number], [place] [address] Mar, [facility] [address] [facility] [facility] [id number], [place] [address] Feb, [facility] [address] [id number][place] [id number] Feb, [facility] [address] [facility] [facility] [id number], [place] [address] Feb, [facility] [address] [id number][place] [id number] Feb, [facility] [address] [facility] [address] [facility] [id number][place] [address] Feb, [facility] [address] [id number] [id number] Feb, [facility] [place] [facility] [address] [facility] [id number], [place] [address] Feb, [facility] [address] [facility] [id number] [place] [id number] Jan, [facility] [place] [facility] [address] [facility] [id number], [place] [address] Jan, [facility] [address] [facility] [id number], [place] [address] Dec, [facility] [address] [id number] [place] [id number] Dec, [facility] [address] [facility] [id number], [place] [address] Nov, [facility] [address] [id number] [place] [id number] Oct, [facility] [address] [id number] [place] [id number] Oct, [facility] [address] [id number] [place] [id number] Sep, [facility] [place] [facility] [address] [id number] [address] Sep, [facility] [address] [id number] [place] [address] Sep, [facility] [address] [id number] [place] [id number] Sep, [facility] [address] [id number] [place] [id number] Sep, [facility] [address] [id number] [place] [id number] Sep, [facility] [address] [id number] [place] [id number] Sep, [facility] [place] [facility] [address] [facility] [id number], [place] [address] Aug, [facility] [address] [id number] [place] [id number] Aug, [facility] [place] [facility] [address] [facility] [id number], [place] [address] July, [facility] [address] [id number] [place] [id number] July, [facility] [address]00565100[place], [place] [address] July, [facility] [address] [id number] [place] [id number] Jun, [facility] [address] [id number] [place] [address] Jun, [facility] [address] [id number] [place] [address] Jun, [facility] [address]00565[address], [place] [address] Jun, [facility] [address] [id number] [place] [id number] May, [facility] [address] [id number] [place] [id number] May, [facility] [address]00565[address], [place] [address] May, [facility] [address] [id number][place] [address] Apr, [facility] [address], [place] [address] Apr, [facility] [address] [id number], [place] [id number] Apr, [facility] [address] [id number][place] [id number] Apr, [facility] [address], [place] [address] Mar, [facility] [address] [id number][place] [id number] Mar, [facility] [address] [id number][place] [address] Mar, [facility] [address] [id number], [place] [id number] Feb, [facility] [place] [facility] [address] [id number], [place] [address] Feb, [facility] [address] [id number], [place] [id number] Jan, [facility] [address] [id number][place] [id number] Jan, [facility] [place] [facility] [address] [facility] [id number], [place] [address] Jan, [facility] [place] [facility] [address] [facility] [id number], [place] [address] Jan, [facility] [address] [id number], [place] [id number] Jan, [facility] [place] [facility] [address] [facility] [id number], [place] [address] Jan, [facility] [address] [id number], [place] [address] Dec, [facility] [place] [facility] [address] [facility] [id number], [place] 92294058[place] [address] Dec, [facility] [address] [id number], [place] [id number] Dec, [facility] [address] [facility] [id number], [place] [address] [address] Dec, [facility] [address] [id number], [place] [id number] Dec, [facility] [address] [id number], [place] [address] Nov, [facility] [address] [id number], [place] [address] Nov, [facility] [address] [id number], [place] [address] Oct, [facility] [address] [id number], [place] 43[address] Oct, [facility] [address] [id number] [place] [id number] Sep, [facility] [address] [id number] [place] 4597[address] Sep, [facility] [address] [id number], [place] [address]56 Sep, [facility] [address] [id number], [place] 9547[address]170 Aug, [facility] [address] [id number] [place] [address] Aug, [facility] [address] [id number] [place] [address]887[address] July, [facility] [address] [id number] [place] [address] July, [facility] [address] [id number] [place] [address] July, [facility] [address] [id number] [place] [address]18[address] July, [facility] [id number] [place] [address] Jun, [facility] [address] [id number] [place] 88[address] Jun, [facility] [address] [id number] [place] 41832[address]38 Jun, [facility] [address] [id number] [place] 604[place] Jun, [facility] [address] [id number] [place] [id number] May, [facility] [address] [id number] [place] 266[address]3873 May, [facility] [address] [id number] [place] 1466195[address] Apr, [facility] [address] [id number] [place] 3[place] Apr, [facility] [address] [id number] [place] 525863738 Apr, [facility] [address] [id number] [place] 355848747 Apr, [facility] [address] [id number] [place] 617[address]8744 Apr, [facility] [address]00565100[place], [place] [address] Apr, [facility] [address] [id number], [place] 977278113 Apr, [facility] [place] [address] [facility] [id number] [place] [id number] Apr, [facility] [place] [address] [facility] [id number] [place] [id number] Mar, [facility] [address] [id number], [place] [address] Feb, [facility] [place] [facility] [address] [facility] [id number] [place] [address], [place] [address]- [address] Feb, [facility] [address] [id number] [place] [address]- [address] Feb, [facility] [place] [facility] [address] [facility] [id number] [place] [address], [place] [address]- 1105 Feb, [facility] [address] [facility] [id number] [place] [address]- 9162 Jan, [facility] [place] [facility] [address] [id number], [place] [address]- 1634 Jan, [facility] [place] [facility] [address] [facility] [id number], [place] [address]- 8942 Jan, [facility] [place] [facility] [address] [id number], [place] [address]- 7748 Dec, [facility] [place] [facility] [address] [facility] [id number], [place] [address]- 0469 Dec, [facility] [place] [facility] [address] [id number], [place] [address]- 35[address] Aug, [facility] [place] [facility] [address] [facility] [id number], [place] [address]- [address] Aug, [facility] [place] [facility] [address] [facility] [id number], [place] [address]- 8406 Feb, [facility] [place] [facility] [address] [facility] [id number], [place] [address]- 6682 Feb, [facility] [place] [facility] [address] [facility] [id number], [place] [address]- 9046 Jan, [facility] [place] [facility] [address] [id number] [place] [address]- 139[address] Jan, [facility] [place] [facility] [address] [id number] [place] [address]- 7106 Dec, [facility] [place] [facility] [address] [id number] [place] [address]- 7006 Dec, [facility] [place] [facility] [address] [id number] [place] [address]- 2050 Dec, [facility] [place] [facility] [address] [id number] [place] [address]- 5059 May, [facility] [place] [facility] [address] [id number] [place] [address]- 8587 Mar, [facility] [place] [facility] [address] [facility] [id number] [place] [address]- 5672 Feb, [facility] [place] [facility] [address] [id number] [place] [address]- 4393 Feb, [facility] [place] [facility] [address] [id number] [place] [address]- 7215 Feb, [facility] [place] [facility] [address] [id number] [place] [address]- 8315 Jan, [facility] [place] [facility] [address] [id number], [place] [address]- [address] Jan, [facility] [place] [facility] [address] [id number], [place] [address]- [address]61 Oct, [facility] [place] [facility] [address] [id number] [place] [address]- 3299 July, [facility] [place] [facility] [address] [id number][place]756[place]- [address] Apr, [facility] [place] [facility] [address] [id number] [place] [address]- 5197 Jan, [facility] [place] [facility] [address] [facility] [id number] [place] [address]- 4554 Jan, IMMUNIZATIONS No Known Immunizations SOCIAL HISTORY Never Assessed REASON FOR VISIT Pharmacy Change PLAN OF CARE VITAL SIGNS MEDICATIONS Unknown [...] Hospitalization History surgeries, childbirth Hospitalization History ED [place]- Possible Stroke 05/16/2017
--- OUTSIDE RECORDS SUMMARY | 2017-09-20 06:36 | XMS REPORT ---
Author Author CATRACHITA MOLINA Organization [facility] Address [address] [place] [address] Care Team Providers Care Assembler Wet Wash Name Role Phone CATRACHITA MOLINA Unavailable PROBLEMS Type Condition ICD9-CM Code PAG23-GS Code Onset Dates Condition Status SNOMED Code Problem RLS (restless legs syndrome) G25.81 Active 85414092 Problem Encounter for immunization Z23 Active 341439773 Problem Essential hypertension I10 Active 94958827 Problem Diabetes type 2, controlled E11.9 Active 31447059 Problem Diabetic polyneuropathy associated with type 2 diabetes mellitus E11.42 Active 22591191 Problem Other chronic pain G89.29 Active 73432402 Problem Hypoglycemia E16.2 Active 335683462 Problem Reactive depression F32.9 Active 68924839 Problem Type 2 diabetes mellitus with hyperglycemia E11.65 Active 348631278577738 Problem Spinal stenosis, unspecified spinal region M48.00 Active 81667449 Problem Type 2 diabetes mellitus with other specified complication E11.69 Active [id number] Problem Hyperlipidemia, unspecified E78.5 Active 38917232 ALLERGIES No Information ENCOUNTERS Encounter Location Date Diagnosis [facility] [address] [facility] [id number] [id number] Sep, Spinal stenosis, unspecified spinal region M48.00 [facility] [address] [id number] [address] Aug, [facility] [address] [id number] 118133004 Aug, Spinal stenosis, unspecified spinal region M48.00 [facility] [id number] [place] [address] [id number] Aug, Spinal stenosis, unspecified spinal region M48.00 [facility] [address] [id number] [address] July, [facility] [address] [id number] [address] July, Diabetic polyneuropathy associated with type 2 diabetes mellitus E11.42 ; Type 2 diabetes mellitus with hyperglycemia E11.65 ; RLS (restless legs syndrome ) G25.81 and Essential hypertension I10 [facility] [place] [id number][place] [address]1776 July, Spinal stenosis, unspecified spinal region M48.00 [facility] [place] [id number] [place] [address] [id number] July, [facility] [place] [id number] [place] [address] [id number] Jun, Type 2 diabetes mellitus with other specified complication E11.69 [facility] [place] [id number] [place] [address] [id number] Jun, Spinal stenosis, unspecified spinal region M48.00 [facility] [place] [id number] [place] [address] [id number] Jun, Hypoglycemia E16.2 [facility] [place] [id number] [place] [address] [id number] May, Hypoglycemia E16.2 ; Acute cystitis with hematuria N30.01 and Essential hypertension I10 [facility] [address]005[address] [address] May, [facility] [place] [id number], [place] [id number] May, Spinal stenosis, unspecified spinal region M48.00 [facility] [place] [address]00565100[place] [id number] May, Reactive depression F32.9 [facility] [place] [id number], [place] 865669572 May, [facility] [place] [id number], [place] 709496774 Apr, [facility] [id number] [place] [address] Apr, [facility] [address] [id number] [place] [id number] Apr, [facility] [address] [id number], [place] [id number] Apr, [facility] [place] [id number] [place] [address] [id number] Apr, Spinal stenosis, unspecified spinal region M48.00 [facility] [place] [address] [id number], [place] [id number] Apr, Type 2 diabetes mellitus with other specified complication E11.69 ; Spinal stenosis, unspecified spinal region M48.00 ; Reactive depression F32.9 and Essential hypertension I10 [facility] [place] [address] [address] [facility] [id number] [place] [id number] Apr, [facility] [place] [id number] [place] [address] [id number] Mar, Spinal stenosis, unspecified spinal region M48.00 [facility] [place] [id number] [place] [address] [id number] Feb, Acute non-recurrent maxillary sinusitis J01.00 and Essential hypertension I10 [facility] [place] [address] [id number], [place] [id number] Feb, Spinal stenosis, unspecified spinal region M48.00 [facility] [place] [address] [id number] [place] [address] [id number] Feb, Type 2 diabetes mellitus with other specified complication E11.69 [facility] [place] [address] [id number] [place] [address] [id number] Feb, Type 2 diabetes mellitus with other specified complication E11.69 and Essential hypertension I10 [facility] [place] [address] [id number], [place] 859835236 Feb, [facility] [address] [id number], [place] 975791404 Feb, [facility] [address] [id number] [place] [address] [id number] Jan, Spinal stenosis, unspecified spinal region M48.00 [facility] [place] [address] [id number], [place] [id number] Jan, Diabetic polyneuropathy associated with type 2 diabetes mellitus E11.42 [facility] [address]00565[address] [id number] Jan, Diabetic polyneuropathy associated with type 2 diabetes mellitus E11.42 [facility] [id number] [place] [address] [id number] Jan, Type 2 diabetes mellitus with hyperglycemia E11.65 ; Type 2 diabetes mellitus with other specified complication E11.69 ; Spinal stenosis, unspecified spinal region M48.00 and Essential hypertension I10 [facility] [id number] [place] [address] [id number] Jan, Diabetic polyneuropathy associated with type 2 diabetes mellitus E11.42 [address] [place] [address] [id number] Dec, [id number] [place] [address] [id number] 30 Dec, 2016 Diabetic polyneuropathy associated with type 2 diabetes mellitus E11.42 ; Type 2 diabetes mellitus with other specified complication E11.69 ; Hyperlipidemia, unspecified E78.5 ; Thyroid disorder E07.9 and Thyroid disorder screening Z13.29 [facility] [address]00565[address] [id number] Dec, Diabetic polyneuropathy associated with type 2 diabetes mellitus E11.42 [facility] [address] [id number] 17 Dec, 2016 Diabetic polyneuropathy associated with type 2 diabetes mellitus E11.42 [address]00565100[place] [id number] Dec, Spinal stenosis, unspecified spinal region M48.00 [facility] [address] [id number] Dec, [address]00565100[place] [id number] 18 Nov, 2016 Diabetic polyneuropathy associated with type 2 diabetes mellitus E11.42 [address]00565100[place] [id number] 15 Nov, 2016 Other chronic pain G89.29 [address]00565100[place] 710878554 14 Nov, 2016 Spinal stenosis, unspecified spinal region M48.00 [facility] [address] [id number], [place] [id number] 16 Oct, 2016 Spinal stenosis, unspecified spinal region M48.00 ; Essential hypertension I10 ; RLS (restless legs syndrome) G25.81 and Diabetic polyneuropathy associated with type 2 diabetes mellitus E11.42 [facility] [address] [id number] [place] [id number] Oct, Spinal stenosis, unspecified spinal region M48.00 [facility] [address] [id number] [place] 610353789 Sep, Diabetic polyneuropathy associated with type 2 diabetes mellitus E11.42 ; RLS (restless legs syndrome) G25.81 ; Spinal stenosis, unspecified spinal region M48.00 and Essential hypertension I10 [facility] [address] [id number] [place] [id number] Sep, [facility] [address] [id number], [place] 088375268 Sep, Spinal stenosis, unspecified spinal region M48.00 [facility] [address] [id number], [place] [id number] Sep, [facility] [address] [id number], [place] 604250504 Aug, Spinal stenosis, unspecified spinal region M48.00 [facility] [address]005[address], [place] [address] July, [facility] [address] [id number], [place] [id number] July, Spinal stenosis, unspecified spinal region M48.00 [facility] [address] [id number], [place] 144174311 Jun, Type 2 diabetes mellitus with hyperglycemia E11.65 [facility] [address] [id number], [place] 109431134 Jun, Spinal stenosis, unspecified spinal region M48.00 [facility] [address] [id number], [place] [id number] May, Spinal stenosis, unspecified spinal region M48.00 [facility] [address] [id number], [place] [id number] 13 Apr, 2016 Spinal stenosis, unspecified spinal region M48.00 [facility] [id number] [place] [address]67- 2526 Mar, [facility] [place] [id number], [place] [id number] Mar, Type 2 diabetes mellitus with hyperglycemia E11.65 ; RLS (restless legs syndrome) G25.81 and Spinal stenosis, unspecified spinal region M48.00 [facility] [address] [id number], [place] [address] Mar, [facility] [place] [id number] [place] [address] [id number] Mar, [facility] [address]005[address] [id number] Mar, [facility] [place] [id number], [place] [id number] Feb, [facility] [id number] [place] [address] 39101- 2546 Feb, [facility] [id number] [place] [address] [id number] Feb, [facility] [id number] [place] [address] [id number] Feb, [facility] [id number] [place] [address] 63523- 2546 Feb, [facility] [id number] [place] [address] 43700- 2546 Feb, [facility] [id number], [place] [id number] Jan, [facility] [id number] [place] [address] [id number] Dec, Diabetic polyneuropathy associated with type 2 diabetes mellitus E11.42 ; Other chronic pain G89.29 ; Essential hypertension I10 and Encounter for immunization Z23 [facility] [place] [id number] [place] [address] [id number] Dec, [facility] [address]005[address], [place] [address]- 6[address] Nov, [facility] [place] [id number] [place] [address] [id number] Nov, [facility] [place] [id number] [place] [address] [id number] 15 Nov, 2015 Diabetes type 2, controlled E11.9 [facility] [place] [id number] [place] [address] [id number] 14 Nov, 2015 Diabetes type 2, controlled E11.9 ; Other chronic pain G89.29 ; Essential hypertension I10 ; Diabetic polyneuropathy associated with type 2 diabetes mellitus E11.42 and RLS (restless legs syndrome) G25.81 [facility] [id number] [place] [address] 39070- 5560 Nov, [facility] [id number] [place] [address] [id number] Oct, [facility] [id number] [place] [address] [id number] Oct, [facility] [id number] [place] [address] [id number] Oct, [facility] [id number] [place] [address] [id number]- 6440 Oct, [facility] [id number] [place] [address] [id number] Sep, [facility] [id number] [place] [address] [id number] Sep, [facility] [address] [place] [address] 58206- 6676 Sep, Dental examination Z01.20 [facility] [id number] [place] [address] 06685- 8627 Aug, [facility] [id number] [place] [address] [id number] Aug, [facility] [id number] [place] [address] 23340- 0851 Aug, [facility] [address] [facility] [id number], [place] [address]- 4[address] July, [facility] [address] [facility] [id number], [place] [address]- 2555 July, [facility] [address] [facility] [id number], [place] [address]- 5538 July, [facility] [address] [id number], [place] [id number] July, [facility] [address] [id number], [place] [id number] July, [facility] [place] [address] [id number] [place] [address] [id number] July, [facility] [address] [facility] [id number], [place] [address]- 2546 July, [facility] [place] [address] [id number], [place] [id number] Jun, Diabetes type 2, controlled E11.9 [facility] [address] [id number] [place] [address] [id number] Jun, [facility] [place] [address] [id number] [place] [id number] May, Diabetes type 1, uncontrolled E10.65 [facility] [address] [id number], [place] [id number] May, [facility] [address] [id number], [place] 545855364 Apr, [facility] [address] [id number], [place] [id number] Apr, [facility] [address] [id number], [place] [id number] Mar, [facility] [address] [id number] [place] [id number] Mar, [facility] [address] [id number], [place] [id number] Mar, [facility] [address] [id number], [place] [id number] Mar, Diabetes type 1, uncontrolled E10.65 [facility] [address] [facility] [id number], [place] [id number] Feb, [facility] [place] [id number], [place] [id number] Feb, [facility] [id number], [place] [id number] Feb, [facility] [address] [address] [address]67[address] [facility] [id number] [place] [id number] Jan, [facility] [id number], [place] 976804433 Jan, Dysuria R30.0 and Acute cystitis with hematuria N30.01 [facility] [id number] [place] [address] [id number] Jan, [facility] [id number] [place] [address] [id number] Dec, Gastroenteritis K52.9 and Headache, unspecified headache type R51 [facility] [id number], [place] [id number] Dec, [facility] [id number], [place] 045847120 Dec, Chronic back pain 724.5 [facility] [address] [place] [id number] [id number] Dec, [facility] [id number], [place] [id number] Nov, Chronic back pain 724.5 and Diabetes mellitus without mention of complication, type II or unspecified type, uncontrolled 250.02 [facility] [place] [address] [facility] [id number], [place] [id number] Nov, [facility] [address] [id number], [place] [id number] Oct, [facility] [id number] [place] [address] [id number] Sep, Diabetes mellitus without mention of complication, type II or unspecified type, uncontrolled 250.02 and Urinary tract infection 599.0 [facility] [id number], [place] [id number] July, [facility] [place] [facility] [address] [id number] [place] [address]- 0636 Jun, [facility] [place] [facility] [address] [id number] [place] [address]- 2546 Jun, [facility] [address] [id number] [place] [id number] May, [facility] [place] [facility] [address] [facility] [id number] [place] [address]- 2546 May, [facility] [address] [id number] [place] [id number] May, [facility] [place] [facility] [address] [facility] [id number] [place] [address]- 2546 May, [facility] [address] [facility] [id number], [place] 812440063 Mar, [facility] [place] [facility] [address] [facility] [id number], [place] [address]- 8796 Mar, [facility] [place] [facility] [address] [facility] [id number], [place] [address]- 2546 Mar, [facility] [address] [id number], [place] 857378563 Mar, [facility] [address] [id number], [place] [id number] Feb, [facility] [place] [facility] [address] [facility] [id number], [place] [address]- 1516 Feb, [facility] [address] [id number], [place] [id number] Feb, [facility] [place] [facility] [address] [facility] [id number] [place] [address]- 2546 Feb, [facility] [place] [facility] [address] [facility] [id number], [place] [address]- 2546 Feb, [facility] [address] [id number] [place] [id number] Feb, [facility] [address] [id number], [place] 326945026 Feb, [facility] [place] [facility] [address] [id number] [place] [address]- 2546 Feb, [facility] [place] [facility] [address] [id number] [place] [address]- 2546 Feb, [facility] [place] [address] [id number] [place] [id number] Jan, [facility] [place] [facility] [address] [id number] [place] [address]- 2546 Jan, [facility] [address] [id number] [place] 288738168 Jan, [facility] [place] [facility] [address] [id number] [place] [address]- 4376 Jan, [facility] [place] [address] [facility] [id number], [place] 435100723 Dec, [facility] [place] [facility] [address] [id number], [place] [address]- 3206 Dec, [facility] [place] [facility] [address] [id number] [place] [address]- 2787 Dec, [facility] [place] [facility] [address] [facility] [id number] [place] [address]- 1196 Dec, [facility] [address] [facility] [id number], [place] [id number] Dec, [facility] [place] [facility] [address] [facility] [id number][place] [address]- 2546 Dec, [facility] [address] [id number], [place] 497710196 Nov, [facility] [place] [facility] [address] [id number], [place] [address]- 2546 Nov, [facility] [address] [facility] [id number], [place] [id number] Oct, [facility] [place] [facility] [address] [facility] [id number] [place] [address]- 2226 Oct, [facility] [place] [facility] [address] [id number] [place] [address]- 2546 Sep, [facility] [address] [id number] [place] 993646253 Sep, [facility] [address] [id number] [place] 398867115 Aug, [facility] [place] [facility] [address] [facility] [id number] [place] [address]- 7316 Aug, [facility] [address] [id number] [place] 850259911 July, [facility] [place] [facility] [address] [id number] [place] [address]- 6076 July, [facility] [address] [facility] [id number] [place] [id number] July, [facility] [place] [facility] [address] [facility] [id number] [place] [address]- 0436 July, [facility] [place] [facility] [address] [facility] [id number], [place] [address]- 5866 July, [facility] [place] [facility] [address] [facility] [id number], [place] [address]- 3600 Jun, [facility] [address] [facility] [id number] [id number] Jun, [facility] [address] [facility] [id number] [place] [id number] Jun, [facility] [place] [facility] [address] [facility] [id number], [place] [address] Jun, [facility] [place] [facility] [address] [facility] [id number], [place] [address] Jun, [facility] [place] [facility] [address] [facility] [id number] [place] [address] May, [facility] [address] [facility] [id number] [place] [id number] Apr, [facility] [place] [facility] [address] [facility] [id number], [place] [address] Apr, [facility] [address] [id number] [id number] Apr, [facility] [address] [id number] [place] [address] Apr, [facility] [address] [facility] [id number], [place] [address] Mar, [facility] [place] [facility] [address] [facility] [id number] [place] [address] Mar, [facility] [address] [id number] [place] [address] Mar, [facility] [address] [facility] [id number] [id number] Mar, [facility] [address] [facility] [id number], [place] [address] Mar, [facility] [place] [facility] [id number], [place] [address] Mar, [facility] [address] [facility] [id number], [place] [address] Feb, [facility] [address] [id number][place] [id number] Feb, [facility] [address] [facility] [id number], [place] [address] Feb, [facility] [address] [id number][place] [id number] Feb, [facility] [address] [facility] [id number], [place] [address] Feb, [facility] [address] [id number][place] [id number] Feb, [facility] [place] [facility] [address] [facility] [id number], [place] [address] Feb, [facility] [address] [facility] [id number] [place] [id number] Jan, [facility] [place] [facility] [address] [facility] [id number], [place] [address] Jan, [facility] [address] [facility] [id number], [place] [address] Dec, [facility] [address] [id number] [place] [id number] Dec, [facility] [address] [facility] [id number], [place] [address] Nov, [facility] [address] [id number] [place] [id number] Oct, [facility] [address] [id number] [place] [id number] Oct, [facility] [address] [id number] [place] [id number] Sep, [facility] [place] [facility] [address] [id number], [place] [address] Sep, [facility] [address] [id number] [place] [id number] Sep, [facility] [address] [id number] [place] [id number] Sep, [facility] [address] [id number] [place] [address] Sep, [facility] [address] [id number] [place] [address] Sep, [facility] [address] [id number] [place] [id number] Sep, [facility] [place] [facility] [address] [facility] [id number], [place] [address] Aug, [facility] [address] [id number] [place] [address] Aug, [facility] [place] [facility] [address] [facility] [id number], [place] [address] July, [facility] [address] [id number] [place] [id number] July, [facility] [address], [place] [address] July, [facility] [address] [id number] [place] [id number] Jun, [facility] [address] [id number] [place] [id number] Jun, [facility] [address] [id number] [place] [id number] Jun, [facility] [address], [place] [address] Jun, [facility] [address] [id number] [place] [address] May, [facility] [address] [id number] [place] [address] May, [facility] [address]65[address], [place] [address] May, [facility] [address] [id number] [id number] Apr, [facility] [address]65[address], [place] [address] Apr, [facility] [address] [id number][place] [address] Apr, [facility] [address] [id number][place] [address] Apr, [facility] [address], [place] [address] Mar, [facility] [address] [id number][place] [address] Mar, [facility] [address] [id number][place] [id number] Mar, [facility] [address] [id number][place] [address] Feb, [facility] [address] [id number], [place] [address] Feb, [facility] [address] [id number][place] [address] Jan, [facility] [address] [id number][place] [address]6842 Jan, [facility] [place] [address] [facility] [id number], [place] [address] Jan, [facility] [place] [address] [facility] [id number], [place] [address] Jan, [facility] [address] [id number], [place] 466[address] Jan, [facility] [address] [facility] [id number], [place] [address] Jan, [facility] [address] [id number][place] 194888810 Dec, [facility] [address] [facility] [id number], [place] [address]77[place] [address] Dec, [facility] [address] [id number], [place] [address] Dec, [facility] [address] [facility] [id number][place] [address] [address] Dec, [facility] [address] [id number], [place] 905980138 Dec, [facility] [address] [id number][place] 12[address]397[address] Nov, [facility] [address] [id number], [place] [address]78[place]3358 Nov, [facility] [address] [id number], [place] [address]061312 Oct, [facility] [address] [id number], [place] 198852892 Oct, [facility] [address] [id number] [place] [address] Sep, [facility] [address] [id number] [place] [address] Sep, [facility] [address] [id number], [place] 537049930 Sep, [facility] [address] [id number], [place] [address]198 Aug, [facility] [address] [id number] [place] [address] Aug, [facility] [address] [id number] [place] [address] July, [facility] [address] [id number] [place] [address] July, [facility] [address] [id number] [place] [address] July, [facility] [address] [id number] [place] [address] July, [facility] [id number] [place] [address] Jun, [facility] [address] [id number] [place] [address] Jun, [facility] [address] [id number] [place] [address] Jun, [facility] [address] [id number] [place] [address]68 Jun, [facility] [address] [id number] [place] [address]376[address] May, [facility] [address] [id number] [place] [address] May, [facility] [address] [id number] [place] [address] Apr, [facility] [address] [id number] [place] [address] Apr, [facility] [address] [id number] [place] [address] Apr, [facility] [address] [id number] [place] [address]5225 Apr, [facility] [address] [id number] [place] [address] Apr, [facility] [address]65[address], [place] [address] Apr, [facility] [address] [id number], [place] 514879531 Apr, [facility] [place] [address] [facility] [id number] [place] [address]01 Apr, [facility] [place] [address] [facility] [id number] [place] [address] Mar, [facility] [address] [id number], [place] [address] Feb, [facility] [place] [facility] [address] [facility] [id number] [place] [address], [place] [address]- [address] Feb, [facility] [address] [id number] [place] [address]- [address] Feb, [facility] [place] [facility] [address] [facility] [id number] [place] [address], [place] [address]- [address] Feb, [facility] [address] [facility] [id number] [place] [address] Jan, [facility] [place] [facility] [address] [id number], [place] [address]- [address] Jan, [facility] [facility] [address] [facility] [id number], [place] [address]- [address]60 Jan, [facility] [place] [facility] [address] [id number], [place] [address] Dec, [facility] [facility] [address] [facility] [id number], [place] [address]- [address]25 Dec, [facility] [place] [facility] [address] [id number], [place] [address] Aug, [facility] [place] [facility] [address] [facility] [id number], [place] [address]- [address] Aug, [facility] [place] [facility] [address] [facility] [id number], [place] [address]- [address] Feb, [facility] [place] [facility] [address] [facility] [id number], [place] [address]- 9788 Feb, [facility] [place] [facility] [address] [facility] [id number], [place] [address]- 28[address] Jan, [facility] [place] [facility] [address] [id number] [place] [address]- [address] Jan, [facility] [place] [facility] [address] [id number] [place] [address]- 8559 Dec, [facility] [place] [facility] [address] [id number] [place] [address]- 1366 Dec, [facility] [place] [facility] [address] [id number] [place] [address]- 9336 Dec, [facility] [place] [facility] [address] [id number] [place] [address]- 9292 May, [facility] [place] [facility] [address] [id number] [place] [address]- 270[address] Mar, [facility] [place] [facility] [address] [facility] [id number] [place] [address]- 4681 Feb, [facility] [place] [facility] [address] [id number] [place] [address]- 2713 Feb, [facility] [place] [facility] [address] [id number] [place] [address]- 3688 Feb, [facility] [place] [facility] [address] [id number] [place] [address]- 3475 Jan, [facility] [place] [facility] [address] [id number], [place] [address]- 9753 Jan, [facility] [place] [facility] [address] [id number], [place] [address]- 4676 Oct, [facility] [place] [facility] [address] [id number] [place] [address]- 1318 July, [facility] [place] [facility] [address] [id number]- [address]38 Apr, [facility] [place] [facility] [address] [id number] [place] [address]- [address]2 Jan, [facility] [place] [facility] [address] [facility] [id number] [place] [address]- [address] Jan, IMMUNIZATIONS No Known Immunizations SOCIAL HISTORY [...] Hospitalization History surgeries, childbirth Hospitalization History [facility] [place]- Possible Stroke 05/16/2017
--- OUTSIDE RECORDS SUMMARY | 2017-09-20 06:37 | XMS REPORT ---
Author Author CATRACHITA MOLINA Organization [facility] Address [address] [place] [address] Care Team Providers Care Enrollment Specialist Name Role Phone CATRACHITA MOLINA Unavailable PROBLEMS Type Condition ICD9-CM Code SWO10-CE Code Onset Dates Condition Status SNOMED Code Problem RLS (restless legs syndrome) G25.81 Active 36713954 Problem Encounter for immunization Z23 Active 453695273 Problem Essential hypertension I10 Active 02196519 Problem Diabetes type 2, controlled E11.9 Active 05803662 Problem Diabetic polyneuropathy associated with type 2 diabetes mellitus E11.42 Active 61640244 Problem Other chronic pain G89.29 Active 75697456 Problem Hypoglycemia E16.2 Active 686105245 Problem Reactive depression F32.9 Active 51386107 Problem Type 2 diabetes mellitus with hyperglycemia E11.65 Active 703178319150528 Problem Spinal stenosis, unspecified spinal region M48.00 Active 13304616 Problem Type 2 diabetes mellitus with other specified complication E11.69 Active 90133956690709 Problem Hyperlipidemia, unspecified E78.5 Active 84160383 ALLERGIES No Information ENCOUNTERS Encounter Location Date Diagnosis [facility] [id number] [place] [address] [id number] July, Diabetic polyneuropathy associated with type 2 diabetes mellitus E11.42 ; Type 2 diabetes mellitus with hyperglycemia E11.65 ; RLS (restless legs syndrome ) G25.81 and Essential hypertension I10 [facility] [address] [facility] [id number] [place] [address] [id number] July, Spinal stenosis, unspecified spinal region M48.00 [facility] [id number] [place] [address] [id number] July, [facility] [address] [id number], [place] [id number] Jun, Type 2 diabetes mellitus with other specified complication E11.69 [facility] [id number] [place] [address] [id number] Jun, Spinal stenosis, unspecified spinal region M48.00 [facility] [id number], [place] [id number] Jun, Hypoglycemia E16.2 [facility] [id number] [place] [address] [id number] May, Hypoglycemia E16.2 ; Acute cystitis with hematuria N30.01 and Essential hypertension I10 [facility] [address]00565100[place] [address] May, [facility] [id number], [place] [id number] May, Spinal stenosis, unspecified spinal region M48.00 [facility] [id number], [place] [id number] May, Reactive depression F32.9 [facility] [address]00565100[place] [id number] May, [facility] [id number], [place] [id number] Apr, [facility] [address] [id number], [place] [id number] Apr, [facility] [address] [id number], [place] 485875355 Apr, [facility] [address]00565100[place], [place] 665912682 Apr, [facility] [id number], [place] 979468087 Apr, Spinal stenosis, unspecified spinal region M48.00 [facility] [id number], [place] [id number] Apr, Type 2 diabetes mellitus with other specified complication E11.69 ; Spinal stenosis, unspecified spinal region M48.00 ; Reactive depression F32.9 and Essential hypertension I[address] [facility] [address] [id number], [place] 926506467 Apr, [facility] [id number] [place] [address] [id number] Mar, Spinal stenosis, unspecified spinal region M48.00 [facility] [id number] [place] [address] [id number] Feb, Acute non-recurrent maxillary sinusitis J01.00 and Essential hypertension I10 [facility] [address] [id number] [place] [address] [id number] Feb, Spinal stenosis, unspecified spinal region M48.00 [facility] [id number] [place] [address] [id number] Feb, Type 2 diabetes mellitus with other specified complication E11.69 [facility] [address] [id number] [place] [id number] Feb, Type 2 diabetes mellitus with other specified complication E11.69 and Essential hypertension I10 [facility] [address] [id number] [place] [address] [id number] Feb, [facility] [address] [id number] [place] [address] [id number] Feb, [facility] [address] [id number] [place] [address] [id number] Jan, Spinal stenosis, unspecified spinal region M48.00 [facility] [id number] [place] [address] [id number] Jan, Diabetic polyneuropathy associated with type 2 diabetes mellitus E11.42 [facility] [id number] [place] [address] [id number] Jan, Diabetic polyneuropathy associated with type 2 diabetes mellitus E11.42 [facility] [id number] [place] [address] [id number] Jan, Type 2 diabetes mellitus with hyperglycemia E11.65 ; Type 2 diabetes mellitus with other specified complication E11.69 ; Spinal stenosis, unspecified spinal region M48.00 and Essential hypertension I10 [facility] [id number] [place] [address] [id number] Jan, Diabetic polyneuropathy associated with type 2 diabetes mellitus E11.42 [facility] [address] [id number], [place] [id number] Dec, [facility] [address] [id number], [place] [phone] Dec, Diabetic polyneuropathy associated with type 2 diabetes mellitus E11.42 ; Type 2 diabetes mellitus with other specified complication E11.69 ; Hyperlipidemia, unspecified E78.5 ; Thyroid disorder E07.9 and Thyroid disorder screening Z13.29 [facility] [id number], [place] [id number] Dec, Diabetic polyneuropathy associated with type 2 diabetes mellitus E11.42 [facility] [address]00565100[place] 92101336[address] Dec, Diabetic polyneuropathy associated with type 2 diabetes mellitus E11.42 [facility] [id number] [place] [address] [id number] Dec, Spinal stenosis, unspecified spinal region M48.00 [facility] [id number], [place] [id number] Dec, [facility] [id number] [place] [address] [id number] 18 Nov, 2016 Diabetic polyneuropathy associated with type 2 diabetes mellitus E11.42 [facility] [id number], [place] [id number] 15 Nov, 2016 Other chronic pain G89.29 [facility] [id number] [place] [address] [id number] 14 Nov, 2016 Spinal stenosis, unspecified spinal region M48.00 [facility] [id number], [place] [id number] Oct, Spinal stenosis, unspecified spinal region M48.00 ; Essential hypertension I10 ; RLS (restless legs syndrome) G25.81 and Diabetic polyneuropathy associated with type 2 diabetes mellitus E11.42 [facility] [id number], [place] [id number] Oct, Spinal stenosis, unspecified spinal region M48.00 [facility] [id number], [place] [id number] Sep, Diabetic polyneuropathy associated with type 2 diabetes mellitus E11.42 ; RLS (restless legs syndrome) G25.81 ; Spinal stenosis, unspecified spinal region M48.00 and Essential hypertension I10 [facility] [address] [id number], [place] [id number] 14 Sep, 2016 [facility] [id number] [place] [address] [id number] Sep, Spinal stenosis, unspecified spinal region M48.00 [facility] [id number] [place] [address] [id number] Sep, [facility] [address] [id number] [place] [address] [id number] Aug, Spinal stenosis, unspecified spinal region M48.00 [facility] [id number] [place] [address]- [address] July, [facility] [address] [id number] [place] [address] [id number] July, Spinal stenosis, unspecified spinal region M48.00 [facility] [address] [id number] [place] [id number] Jun, Type 2 diabetes mellitus with hyperglycemia E11.65 [facility] [id number] [place] [address] [id number] Jun, Spinal stenosis, unspecified spinal region M48.00 [facility] [address] [id number] [place] [address] [id number] May, Spinal stenosis, unspecified spinal region M48.00 [facility] [id number] [place] [address] [id number] Apr, Spinal stenosis, unspecified spinal region M48.00 [facility] [id number] [place] [address] 03748- 7745 Mar, [facility] [id number] [place] [address] [id number] Mar, Type 2 diabetes mellitus with hyperglycemia E11.65 ; RLS (restless legs syndrome) G25.81 and Spinal stenosis, unspecified spinal region M48.00 [facility] [id number] [place] [address] 11128- 7763 Mar, [facility] [id number] [place] [address] [id number] Mar, [facility] [place] [address] [facility] [id number][place] [id number] Mar, [facility] [address]00565100[place], [place] [id number] Feb, [facility] [address]00565100[place], [place] [address] Feb, [facility] [id number] [place] [address] [id number] Feb, [facility] [id number] [place] [address] [id number] Feb, [facility] [id number] [place] [address] 76975 2546 Feb, [facility] [id number] [place] [address] 65619- 2546 Feb, [address]00565100[place], [place] [id number] Jan, [facility] [address] [place] [address] [id number] Dec, Diabetic polyneuropathy associated with type 2 diabetes mellitus E11.42 ; Other chronic pain G89.29 ; Essential hypertension I10 and Encounter for immunization Z23 [facility] [address]00565100[place], [place] [id number] Dec, [facility] [address]00565100[place], [place] [address] Nov, [facility] [address]00565100[place], [place] [id number] Nov, [facility] [address]00565100[place], [place] [id number] Nov, Diabetes type 2, controlled E11.[address] [place] [address] [id number] Nov, Diabetes type 2, controlled E11.9 ; Other chronic pain G89.29 ; Essential hypertension I10 ; Diabetic polyneuropathy associated with type 2 diabetes mellitus E11.42 and RLS (restless legs syndrome) G25.81 [facility] [place] [facility] [address] [id number] [place] [address]- [address] Nov, [facility] [address] [id number] [place] [id number] Oct, [facility] [address] [id number] [place] [id number] Oct, [facility] [address] [id number] [place] 400044092 Oct, [facility] [place] [facility] [address] [id number] [place] [address]- 8306 Oct, [facility] [address] [id number] [place] [id number] Sep, [facility] [address] [id number] [place] 588921999 Sep, [facility] [place] [facility] [address] [facility] [id number] [address] Sep, Dental examination Z01.20 [facility] [place] [facility] [address] [facility] [id number], [place] [address]- 41[address] Aug, [facility] [address] [id number] [place] [id number] Aug, [facility] [place] [facility] [address] [facility] [id number], [place] [address]- 8562 Aug, [facility] [place] [facility] [address] [facility] [id number], [place] 821444- 8853 July, [facility] [place] [facility] [address] [facility] [id number], [place] [address]- 4[address] July, [facility] [place] [facility] [address] [facility] [id number], [place] [address]- [address] July, [facility] [address] [id number] [place] [id number] July, [facility] [address] [id number] [place] [id number] July, [facility] [address] [id number] [place] [id number] July, [facility] [place] [facility] [address] [facility] [id number], [place] [address]- 8843 July, [facility] [address] [id number] [place] [address] [id number] Jun, Diabetes type 2, controlled E11.9 [facility] [address] [id number], [place] [id number] Jun, [facility] [id number] [place] [address] [id number] May, Diabetes type 1, uncontrolled E10.65 [facility] [address] [id number], [place] [id number] May, [facility] [address] [id number] [place] [address] [id number] Apr, [facility] [address] [id number] [place] [address] [id number] Apr, [facility] [address] [id number], [place] 354163779 Mar, [facility] [id number] [place] [address] [id number] Mar, [facility] [address] [id number], [place] [id number] Mar, [facility] [address] [id number] [place] [address] [id number] Mar, Diabetes type 1, uncontrolled E10.65 [facility] [address] [id number], [place] 839861912 Feb, [facility] [address] [id number], [place] [id number] Feb, [facility] [address] [id number], [place] [id number] Feb, [facility] [address]00565100[place] 880692690 Jan, [facility] [address] [id number], [place] 319988239 Jan, Dysuria R30.0 and Acute cystitis with hematuria N30.01 [facility] [id number], [place] [id number] Jan, [facility] [address] [id number], [place] 633808289 Dec, Gastroenteritis K52.9 and Headache, unspecified headache type R51 [facility] [id number], [place] [id number] Dec, [facility] [address] [id number], [place] 131062687 Dec, Chronic back [facility] 724.5 [facility] [id number] [place]ENTER[place] 162138093 Dec, [facility] [id number], [place] 680594827 Nov, Chronic back pain 724.5 and Diabetes mellitus without mention of complication, type II or unspecified type, uncontrolled 250.02 [facility] [id number], [place] [id number] Nov, [facility] [id number], [place] [id number] Oct, [facility] [id number], [place] 902871833 Sep, Diabetes mellitus without mention of complication, type II or unspecified type, uncontrolled 250.02 and Urinary tract infection 599.0 [facility] [id number], [place] 240362494 July, [facility] [address]00565100[place], [place] [address]- [address] Jun, [facility] [address]00565100[place], [place] [address]- 2546 Jun, [facility] [id number], [place] 448537498 May, [facility] [id number] [place] [address] 35284- 2546 May, [facility] [address] [id number], [place] [id number] May, [facility] [id number] [place] [address] 46004- 3626 May, [facility] [address] [id number] [place] [id number] Mar, [facility] [place] [facility] [address] [facility] [id number], [place] [address]- 4726 Mar, [facility] [place] [facility] [address] [facility] [id number] [place] [address]- 5456 Mar, [facility] [address] [id number] [place] [id number] Mar, [facility] [address] [id number] [place] [id number] Feb, [facility] [place] [facility] [address] [facility] [id number] [place] [address]- 3956 Feb, [facility] [address] [id number] [place] [id number] Feb, [facility] [place] [facility] [address] [facility] [id number], [place] [address]- 5924 Feb, [facility] [place] [facility] [address] [facility] [id number], [place] [address]- 7198 Feb, [facility] [address] [id number], [place] [id number] Feb, [facility] [address] [id number], [place] 315608262 Feb, [facility] [place] [facility] [address] [facility] [id number], [place] [address]- 8387 Feb, [facility] [place] [facility] [address] [facility] [id number] [address]- 5286 Feb, [facility] [address] [id number], [place] [id number] Jan, [facility] [place] [facility] [address] [facility] [id number], [place] [address]- 2856 Jan, [facility] [address] [id number] [place] 893987912 Jan, [facility] [place] [facility] [address] [facility] [id number] [address]- 1696 Jan, [facility] [address] [facility] [id number] [place] 049502633 Dec, [facility] [place] [facility] [address] [facility] [id number][place] [address]- 7849 Dec, [facility] [place] [facility] [address] [facility] [id number] [place] [address]- 3211 Dec, [facility] [place] [facility] [address] [facility] [id number][place] [address]- 9018 Dec, [facility] [address] [facility] [id number] [place] [id number] Dec, [facility] [place] [facility] [address] [facility] [id number] [address]- 8661 Dec, [facility] [address] [facility] [id number] [place] [id number] Nov, [facility] [place] [facility] [address] [facility] [id number], [place] [address]- 6321 Nov, [facility] [address] [facility] [id number] [place] [id number] Oct, [facility] [place] [facility] [address] [facility] [id number] [address]- 9594 Oct, [facility] [place] [facility] [address] [facility] [id number][place] [address]- 7104 Sep, [facility] [address] [id number], [place] [id number] Sep, [facility] [address] [id number] [place] [id number] Aug, [facility] [place] [facility] [address] [facility] [id number] [address]- 6184 Aug, [facility] [address] [facility] [id number] [place] [id number] July, [facility] [place] [facility] [address] [facility] [id number] [address]- 0733 July, [facility] [address] [facility] [id number], [place] [id number] July, [facility] [place] [facility] [address] [facility] [id number] [address]- 8566 July, [facility] [place] [facility] [address] [facility] [id number][place] [address]- 2546 July, [facility] [place] [facility] [address] [facility] [id number][place] [address]- 1996 Jun, [facility] [address] [facility] [id number], [place] [id number] Jun, [facility] [address] [facility] [id number], [place] [id number] Jun, [facility] [place] [facility] [address] [facility] [id number] [address]- 5066 Jun, [facility] [place] [facility] [address]00565100[place], [place] [address]- 4636 Jun, [facility] [place] [facility] [address] [facility] [id number], [place] [address] May, [facility] [address] [facility] [id number][place] [id number] Apr, [facility] [place] [facility] [address] [id number], [place] [address] Apr, [facility] [address] [id number] [id number] Apr, [facility] [place] [facility] [address] [facility] [id number], [place] [address] Apr, [facility] [place] [facility] [address] [facility] [id number] [address] Mar, [facility] [place] [facility] [address] [facility] [id number], [place] [address] Mar, [facility] [place] [facility] [address] [facility] [id number], [place] [address] Mar, [facility] [address] [facility] [id number][place] [id number] Mar, [facility] [address] [facility] [id number], [place] [address] Mar, [facility] [place] [facility] [address] [facility] [id number], [place] [address] Mar, [facility] [address] [facility] [id number], [place] [address] Feb, [facility] [address] [id number][place] [id number] Feb, [facility] [address] [facility] [id number], [place] [address] Feb, [facility] [address] [id number][place] [id number] Feb, [facility] [id number], [place] [address] Feb, [facility] [address] [id number][place] [id number] Feb, [facility] [address] [id number], [place] [address] Feb, [facility] [address] [id number][place] [id number] Jan, [facility] [address] [id number], [place] [address] Jan, [facility] [place] [facility] [address] [facility] [id number], [place] [address] Dec, [facility] [address] [id number][place] [id number] Dec, [facility] [place] [facility] [address] [facility] [id number], [place] [address] Nov, [facility] [address] [id number][place] [id number] Oct, [facility] [address] [id number][place] [id number] Oct, [facility] [address] [id number] [place] [id number] Sep, [facility] [address] [id number] [place] [address] Sep, [facility] [address] [id number] [place] [id number] Sep, [facility] [address] [id number] [place] [id number] Sep, [facility] [address] [id number] [place] [id number] Sep, [facility] [place] [address] [id number] [place] [address] Sep, [facility] [place] [address] [id number] [place] [id number] Sep, [facility] [address] [facility] [id number] [address] Aug, [facility] [place] [address] [id number] [place] [id number] Aug, [facility] [address] [facility] [id number] [address] July, [facility] [place] [address] [id number] [place] [id number] July, [facility] [address] [facility] [id number] [address] July, [facility] [place] [address] [id number] [place] [id number] Jun, [facility] [place] [address] [id number][place] [address] Jun, [facility] [place] [address] [id number] [place] [id number] Jun, [facility] [address] [facility] [id number] [address] Jun, [facility] [place] [address] [id number] [place] [address] May, [facility] [place] [address] [id number] [place] [address] May, [facility] [place] [facility] [address] [facility] [id number] [address] May, [facility] [place] [address] [facility] [id number] [place] [address] Apr, [facility] [place] [facility] [address] [facility] [id number] [address] Apr, [facility] [place] [address] [id number] [place] [address] Apr, [facility] [place] [address] [id number] [place] [id number] Apr, [facility] [place] [facility] [address] [facility] [id number][place] [address] Mar, [facility] [place] [address] [id number][place] [address] Mar, [facility] [place] [address] [id number][place] [id number] Mar, [facility] [place] [address] [id number], [place] [address] Feb, [facility] [place] [facility] [address] [facility] [id number], [place] [address] Feb, [facility] [place] [address] [facility] [id number], [place] [address] Jan, [facility] [place] [id number], [place] [id number] Jan, [facility] [place] [facility] [id number], [place] [address] Jan, [facility] [place] [facility] [address] [facility] [id number], [place] [address] Jan, [facility] [place] [address] [facility] [id number], [place] [address] Jan, [facility] [place] [facility] [address] [facility] [id number][place] [address] Jan, [facility] [place] [address] [facility] [id number], [place] [id number] Dec, [facility] [place] [facility] [address] [facility] [id number] [address] Dec, [facility] [place] [address] [id number] [place] [id number] Dec, [facility] [address] [facility] [id number][place] [address] Dec, [facility] [place] [address] [id number] [place] Dec, [facility] [address] [id number] [place] [id number] Nov, [facility] [place] [address] [id number] [place] [address] Nov, [facility] [place] [address] [id number] [place] [address] Oct, [facility] [address] [id number] [place] [address] Oct, [facility] [address] [id number] [place] [address] Sep, [facility] [address] [id number] [place] [address] Sep, [facility] [address] [id number] [place] [address] Sep, [facility] [address] [id number] [place] [address] Aug, [facility] [address] [id number] [place] [address] Aug, [facility] [place] [address] [id number] [place] [address] July, [facility] [address] [id number] [place] [address] July, [facility] [address] [id number] [place] July, [facility] [place] [address] [id number] [place] [address] July, [facility] [address] [facility] [id number][place] [address] Jun, [facility] [place] [address] [id number] [place] [address] Jun, [facility] [place] [address] [id number] [place] [address] Jun, [facility] [place] [address] [id number] [place] [address] Jun, [facility] [place] [address] [id number] [place] [address] May, [facility] [place] [address] [id number] [place] [address] May, [facility] [place] [address] [id number] [place] [address] Apr, [facility] [place] [address] [id number] [place] [address] Apr, [facility] [place] [address] [id number] [place] [address] Apr, [facility] [place] [address] [id number] [place] [address] Apr, [facility] [place] [address] [id number] [place] [address] Apr, [facility] [id number] [address] Apr, [facility] [place] [address] [id number] [place] [address] Apr, [facility] [place] [address] [id number] [place] [address] Apr, [facility] [place] [address] [id number] [place] [address] Mar, [facility] [address] [id number], [place] [address] Feb, [facility] [id number] [place] [address]- [address] Feb, [facility] [id number], [place] [address] Feb, [facility] [address] [id number] [place] [address] 05 Feb, 2011 [facility] [place] [facility] [address] [id number] [place] [address] Jan, [facility] [place] [facility] [address] [id number] [place] [address] Jan, [facility] [place] [facility] [address] [id number] [place] [address] Jan, [facility] [place] [facility] [address] [id number] [place] [address]- [address] Dec, [facility] [place] [facility] [address] [id number] [place] [address]- [address] 24 Dec, 2010 [facility] [place] [facility] [address] [id number] [place] [address] Aug, [facility] [place] [facility] [address] [id number] [place] [address]- [address] Aug, [facility] [place] [facility] [address] [id number] [place] [address]- 8768 Feb, [facility] [place] [facility] [address] [id number] [place] [address]- [address] Feb, [facility] [place] [facility] [address] [facility] [id number] [place] [address] Jan, [facility] [place] [facility] [address] [id number] [place] [address]- [address] Jan, [facility] [place] [facility] [address] [id number] [place] [address]- [address]44 Dec, [facility] [place] [facility] [address] [id number] [place] [address]- 6779 Dec, [facility] [place] [facility] [address] [id number] [place] [address]- [address] Dec, [facility] [place] [facility] [address] [id number] [place] [address] May, [facility] [address] [id number], [place] [address] Mar, [facility] [id number], [place] [address] Feb, [facility] [id number], [place] [address] Feb, [facility] [id number], [place] [address] Feb, [facility] [id number], [place] [address] Jan, [facility] [id number], [place] [address] Jan, [facility] [id number], [place] [address] Oct, [facility] [id number], [place] [address] July, [facility] [id number], [place] [address] Apr, [facility] [id number], [place] [address] Jan, [facility] [address] [id number], [place] [address] Jan, IMMUNIZATIONS No Known Immunizations SOCIAL HISTORY Never Assessed REASON FOR VISIT Refill request PLAN OF CARE VITAL SIGNS MEDICATIONS Medication Instructions Dosage Frequency Start Date End Date Duration Status Hydrocodone-Acetaminophen 7.5-325 MG Orally every 4-6 hrs PRN 1 tablet Dec, 0 days Active RESULTS No Results PROCEDURES [...] History surgeries, childbirth Hospitalization History [facility]- Possible Stroke 05/16/2017
--- OUTSIDE RECORDS SUMMARY | 2017-09-20 06:37 | XMS REPORT ---
Author Author CATRACHITA MOLINA Organization [facility] Address [address] [place] [address] Care Team Providers Care Can Worker Name Role Phone CATRACHITA MOLINA Unavailable PROBLEMS Type Condition ICD9-CM Code UWZ71-SX Code Onset Dates Condition Status SNOMED Code Problem RLS (restless legs syndrome) G25.81 Active 60314006 Problem Encounter for immunization Z23 Active 923691823 Problem Essential hypertension I10 Active 81681003 Problem Diabetes type 2, controlled E11.9 Active 10639132 Problem Diabetic polyneuropathy associated with type 2 diabetes mellitus E11.42 Active 92944619 Problem Other chronic pain G89.29 Active 07784610 Problem Hypoglycemia E16.2 Active 715530111 Problem Reactive depression F32.9 Active 48572038 Problem Type 2 diabetes mellitus with hyperglycemia E11.65 Active 523678082462843 Problem Spinal stenosis, unspecified spinal region M48.00 Active 37742088 Problem Type 2 diabetes mellitus with other specified complication E11.69 Active 42039845822422 Problem Hyperlipidemia, unspecified E78.5 Active 25005790 ALLERGIES No Information ENCOUNTERS Encounter Location Date Diagnosis [facility] [address] [facility] [id number] [place] [address] [id number] July, [place] [address] [id number] [place] [address] [id number] Jun, Type 2 diabetes mellitus with other specified complication E11.69 [facility] [address] [facility] [id number] [place] [address] [id number] Jun, Spinal stenosis, unspecified spinal region M48.00 [facility] [address] [place] [id number] [place] [address] [id number] Jun, Hypoglycemia E16.2 [place] [id number] [place] [address] [id number] May, Hypoglycemia E16.2 ; Acute cystitis with hematuria N30.01 and Essential hypertension I10 [facility] [address] [facility] [id number] [place] [address]15 [address] May, [facility] [id number], [place] [id number] May, Spinal stenosis, unspecified spinal region M48.00 [facility] [id number], [place] [id number] May, Reactive depression F32.9 [facility] [place] [address] [id number], [place] [id number] May, [facility] [id number], [place] [id number] Apr, [facility] [address] [id number] [place] [id number] Apr, [facility] [id number] [place] [address] [id number] Apr, [facility] [id number], [place] [id number] Apr, [facility] [id number] [place] [address] [id number] Apr, Spinal stenosis, unspecified spinal region M48.00 [facility] [place] [id number], [place] [id number] Apr, Type 2 diabetes mellitus with other specified complication E11.69 ; Spinal stenosis, unspecified spinal region M48.00 ; Reactive depression F32.9 and Essential hypertension I10 [facility] [address] [id number] [place] [id number] Apr, [facility] [address] [facility] [id number], [place] [id number] Mar, Spinal stenosis, unspecified spinal region M48.00 [facility] [place] [id number], [place] [id number] Feb, Acute non-recurrent maxillary sinusitis J01.00 and Essential hypertension I10 [facility] [place] [id number], [place] [id number] Feb, Spinal stenosis, unspecified spinal region M48.00 [facility] [place] [address] [id number], [place] [phone] Feb, Type 2 diabetes mellitus with other specified complication E11.69 [facility] [place] [address] [id number] [place] [address] [id number] Feb, Type 2 diabetes mellitus with other specified complication E11.69 and Essential hypertension I10 [facility] [place] [address] [id number] [place] [id number] Feb, [facility] [place] [address] [id number] [place] [address] [id number] Feb, [facility] [place] [address] [id number] [place] [address] [id number] Jan, Spinal stenosis, unspecified spinal region M48.00 [facility] [place] [address] [id number] [place] [address] [id number] Jan, Diabetic polyneuropathy associated with type 2 diabetes mellitus E11.42 [facility] [place] [address] [id number] [place] [address] [id number] Jan, Diabetic polyneuropathy associated with type 2 diabetes mellitus E11.42 [facility] [place] [address] [id number] [place] [address] [id number] Jan, Type 2 diabetes mellitus with hyperglycemia E11.65 ; Type 2 diabetes mellitus with other specified complication E11.69 ; Spinal stenosis, unspecified spinal region M48.00 and Essential hypertension I10 [facility] [place] [address] [id number] [place] [address] [id number] Jan, Diabetic polyneuropathy associated with type 2 diabetes mellitus E11.42 [facility] [place] [address] [id number] [place] [address] [id number] Dec, [facility] [place] [address] [id number] [place] [address] [id number] Dec, Diabetic polyneuropathy associated with type 2 diabetes mellitus E11.42 ; Type 2 diabetes mellitus with other specified complication E11.69 ; Hyperlipidemia, unspecified E78.5 ; Thyroid disorder E07.9 and Thyroid disorder screening Z13.29 [facility] [place] [address] [id number] [place] [address] [id number] Dec, Diabetic polyneuropathy associated with type 2 diabetes mellitus E11.42 [facility] [address] [place] [id number] [address] Dec, Diabetic polyneuropathy associated with type 2 diabetes mellitus E11.42 [facility] [place] [address] [id number], [place] [id number] Dec, Spinal stenosis, unspecified spinal region M48.00 [facility] [address] [id number], [place] [id number] Dec, [facility] [address] [id number] [place] [address] [id number] 18 Nov, 2016 Diabetic polyneuropathy associated with type 2 diabetes mellitus E11.42 [facility] [id number] [place] [address] [id number] 15 Nov, 2016 Other chronic pain G89.29 [facility] [address] [id number], [place] [id number] 14 Nov, 2016 Spinal stenosis, unspecified spinal region M48.00 [facility] [address] [id number], [place] [id number] Oct, Spinal stenosis, unspecified spinal region M48.00 ; Essential hypertension I10 ; RLS (restless legs syndrome) G25.81 and Diabetic polyneuropathy associated with type 2 diabetes mellitus E11.42 [facility] [address] [id number], [place] [id number] Oct, Spinal stenosis, unspecified spinal region M48.00 [facility] [place] [id number], [place] [id number] Sep, Diabetic polyneuropathy associated with type 2 diabetes mellitus E11.42 ; RLS (restless legs syndrome) G25.81 ; Spinal stenosis, unspecified spinal region M48.00 and Essential hypertension I10 [facility] [address] [id number], [place] [id number] Sep, [facility] [address] [id number], [place] [id number] Sep, Spinal stenosis, unspecified spinal region M48.00 [facility] [address] [id number], [place] [id number] Sep, [facility] [id number], [place] [id number] Aug, Spinal stenosis, unspecified spinal region M48.00 [facility] [address] [place] [id number] [address] July, [facility] [address] [id number], [place] [id number] July, Spinal stenosis, unspecified spinal region M48.00 [facility] [id number] [place] [address] [id number] Jun, Type 2 diabetes mellitus with hyperglycemia E11.65 [facility] [id number] [place] [address] [id number] Jun, Spinal stenosis, unspecified spinal region M48.00 [facility] [id number] [place] [address] [id number] May, Spinal stenosis, unspecified spinal region M48.00 [facility] [place] [id number] [place] [address] [id number] Apr, Spinal stenosis, unspecified spinal region M48.00 [facility] [address]00565100[place] [address] 2546 Mar, [facility] [id number] [place] [address] [id number] Mar, Type 2 diabetes mellitus with hyperglycemia E11.65 ; RLS (restless legs syndrome) G25.81 and Spinal stenosis, unspecified spinal region M48.00 [facility] [address]00565100[place] [address] 2546 Mar, [facility] [address] [facility] [id number], [place] [id number] Mar, [facility] [id number] [place] [id number] Mar, [facility] [address] [facility] [id number], [place] [id number] Feb, [facility] [address]00565100[place] [address] Feb, [facility] [id number], [place] [id number] Feb, [facility] [address] [facility] [id number], [place] [id number] Feb, [facility] [address] [place] [id number] [place] [address] 87627 2546 Feb, [facility] [address] [place] [id number] [place] [address] 42598- 2546 Feb, [facility] [address] [place] [id number] [place] [address] [id number] Jan, [facility] [address] [place] [id number] [place] [address] [id number] Dec, Diabetic polyneuropathy associated with type 2 diabetes mellitus E11.42 ; Other chronic pain G89.29 ; Essential hypertension I10 and Encounter for immunization Z23 [facility] [address] [place] [id number] [id number] Dec, [facility] [address] [place] [id number] [place] [address] 72089 2546 Nov, [facility] [id number], [place] [id number] Nov, [facility] [address] [place] [id number] [place] [address] [id number] Nov, Diabetes type 2, controlled E11.9 [facility] [id number], [place] [id number] Nov, Diabetes type 2, controlled E11.9 ; Other chronic pain G89.29 ; Essential hypertension I10 ; Diabetic polyneuropathy associated with type 2 diabetes mellitus E11.42 and RLS (restless legs syndrome) G25.81 [facility] [address]00565100[place] [address]- [address] Nov, [facility] [id number] [place] [address] [id number] Oct, [facility] [id number] [place] [address] [id number] Oct, [facility] [address] [place] [id number] [place] [address] [id number] Oct, [facility] [address] [facility] [id number] [place] [address]- [address] Oct, [facility] [address] [id number], [place] [id number] Sep, [facility] [place] [address] [id number], [place] [id number] Sep, [facility] [address] [facility] [id number] [place] 97573626- 49[address] Sep, Dental examination Z01.20 [facility] [address] [id number] [address]- 9[address] Aug, [facility] [address] [id number], [place] [id number] Aug, [facility] [address] [facility] [id number] [place] 877705- 99[address] Aug, [facility] [address] [facility] [id number] [place] [address]- 87[address] July, [facility] [address] [facility] [id number] [place] 090447- 8510 July, [facility] [address] [facility] [id number] [place] [address]- [address] July, [facility] [place] [address] [id number], [place] [id number] July, [facility] [address] [id number], [place] [id number] July, [facility] [address] [id number], [place] [id number] July, [facility] [address] [id number] [place] [address]- [address] July, [facility] [address] [id number], [place] [id number] Jun, Diabetes type 2, controlled E11.9 [facility] [place] [address] [id number], [place] [id number] Jun, [facility] [address] [id number], [place] [id number] May, Diabetes type 1, uncontrolled E10.65 [facility] [address] [id number], [place] [id number] May, [facility] [address] [id number], [place] [id number] Apr, [facility] [address] [id number] [place] [address] [id number] Apr, [facility] [address] [id number] [place] [address] [id number] Mar, [facility] [address] [id number] [place] [address] [id number] Mar, [facility] [place] [address] [id number] [place] [address] [id number] Mar, [facility] [place] [address] [id number] [place] [address] [id number] Mar, Diabetes type 1, uncontrolled E10.65 [facility] [place] [address] [id number] [place] [address] [id number] Feb, [facility] [place] [address] [id number], [place] [id number] Feb, [facility] [place] [address] [id number] [place] [address] [id number] Feb, [facility] [address] [id number] [place] [id number] Jan, [facility] [place] [address] [id number], [place] [id number] Jan, Dysuria R30.0 and Acute cystitis with hematuria N30.01 [facility] [place] [address] [id number], [place] [id number] Jan, [facility] [place] [address] [id number], [place] [id number] Dec, Gastroenteritis K52.9 and Headache, unspecified headache type R51 [facility] [place] [address] [id number], [place] [id number] Dec, [facility] [place] [address] [id number] [place] [address] [id number] Dec, Chronic back pain 724.5 [facility] [address] [id number] [place] [id number] Dec, [facility] [place] [id number], [place] [id number] Nov, Chronic back pain 724.5 and Diabetes mellitus without mention of complication, type II or unspecified type, uncontrolled 250.02 [facility] [id number], [place] [id number] Nov, [facility] [place] [id number] [place] [address] [id number] Oct, [facility] [place] [id number], [place] [id number] Sep, Diabetes mellitus without mention of complication, type II or unspecified type, uncontrolled 250.02 and Urinary tract infection 599.0 [facility] [place] [id number], [place] [id number] July, [facility] [id number] [place] [address] 13198- 2546 Jun, [facility] [id number] [place] [address] 56318- 2546 Jun, [facility] [place] [id number], [place] [id number] May, [facility] [id number] [place] [address] 17845- 2546 May, [facility] [place] [id number], [place] [id number] May, [facility] [id number] [place] [address] 07308- 2546 May, [facility] [place] [id number], [place] [id number] Mar, [facility] [id number] [place] [address] 10816- 2546 Mar, [facility] [id number] [place] [address] 40338 2546 Mar, [facility] [address] [id number] [place] [id number] Mar, [facility] [address] [id number] [place] [id number] Feb, [facility] [place] [facility] [address] [facility] [id number] [place] [address]- 9530 Feb, [facility] [address] [facility] [id number] [place] [id number] Feb, [facility] [place] [facility] [address] [facility] [id number] [place] [address]- 0434 Feb, [facility] [place] [facility] [address] [facility] [id number] [place] [address]- 1652 Feb, [facility] [address] [facility] [id number] [place] [id number] Feb, [facility] [address] [facility] [id number], [place] [id number] Feb, [facility] [place] [facility] [address] [facility] [id number] [place] [address]- 1051 Feb, [facility] [place] [facility] [address] [facility] [id number] [place] 836[place]- 7390 Feb, [facility] [address] [facility] [id number], [place] [id number] Jan, [facility] [place] [facility] [address] [facility] [id number] [place] [address]- 8951 Jan, [facility] [address] [facility] [id number], [place] [id number] Jan, [facility] [place] [facility] [address] [facility] [id number] [place] [address]- 7596 Jan, [facility] [address] [facility] [id number], [place] [id number] Dec, [facility] [place] [facility] [address] [facility] [id number] [address]- 7544 Dec, [facility] [place] [facility] [address] [facility] [id number] [place] [address]- 7348 Dec, [facility] [place] [facility] [address] [id number] [place] [address]- 4586 Dec, [facility] [address] [id number] [place] [id number] Dec, [facility] [place] [facility] [address] [facility] [id number] [place] [address]- 2546 Dec, [facility] [address] [id number] [place] [id number] Nov, [facility] [place] [facility] [address] [id number] [place] [address]- 2706 Nov, [facility] [address] [id number] [place] [id number] Oct, [facility] [place] [facility] [address] [facility] [id number] [place] [address]- 3906 Oct, [facility] [place] [facility] [address] [facility] [id number] [place] [address]- 4296 Sep, [facility] [address] [id number] [place] [id number] Sep, [facility] [address] [id number] [place] [id number] Aug, [facility] [place] [facility] [address] [facility] [id number] [place] [address]- 0686 Aug, [facility] [address] [facility] [id number], [place] [id number] July, [facility] [place] [facility] [address] [facility] [id number] [place] [address]- 6366 July, [facility] [address] [facility] [id number] [place] [id number] July, [facility] [place] [facility] [address] [facility] [id number] [place] [address]- 7596 July, [facility] [place] [facility] [address] [facility] [id number] [address]- 6146 July, [facility] [place] [facility] [address] [facility] [id number] [place] [address]- 2546 Jun, [facility] [address] [id number] [place] [id number] Jun, [facility] [address] [facility] [id number] [place] [id number] Jun, [facility] [place] [facility] [address] [id number] [place] [address] Jun, [facility] [place] [facility] [address] [facility] [id number] [place] [address] Jun, [facility] [place] [facility] [address] [id number] [place] [address] May, [facility] [address] [facility] [id number] [place] [id number] Apr, [facility] [place] [facility] [address] [facility] [id number] [place] [address] Apr, [facility] [address] [facility] [id number] [place] [id number] Apr, [facility] [place] [facility] [address] [facility] [id number] [place] [address] Apr, [facility] [place] [facility] [address] [facility] [id number] [address] Mar, [facility] [place] [facility] [address] [facility] [id number] [place] [address] Mar, [facility] [place] [facility] [address] [facility] [id number] [place] [address] Mar, [facility] [address] [facility] [id number] [place] [id number] Mar, [facility] [place] [facility] [address] [facility] [id number] [place] [address] Mar, [facility] [place] [facility] [address] [facility] [id number] [place] [address] Mar, [facility] [place] [facility] [address] [facility] [id number] [place] [address] Feb, [facility] [address] [id number] [place] [id number] Feb, [facility] [address] [facility] [id number] [address] Feb, [facility] [address] [id number] [id number] Feb, [facility] [address] [facility] [id number] [address] Feb, [facility] [address] [id number][place] [id number] Feb, [facility] [address] [facility] [id number] [address] Feb, [facility] [address] [id number][place] [id number] Jan, [facility] [id number] [address] Jan, [facility] [address] [facility] [id number] [place] [address] Dec, [facility] [address] [id number] [id number] Dec, [facility] [address] [facility] [id number] [address] Nov, [facility] [place] [address] [id number][place] [id number] Oct, [facility] [place] [address] [id number][place] [id number] Oct, [facility] [place] [address] [id number][place] [id number] Sep, [facility] [address] [facility] [id number] [place] [address] Sep, [facility] [place] [address] [id number][place] [id number] Sep, [facility] [place] [address] [id number][place] [id number] Sep, [facility] [place] [address] [id number] [place] [id number] Sep, [facility] [place] [address] [id number] [place] 137227440 Sep, [facility] [place] [address] [id number] [place] [id number] Sep, [facility] [address] [facility] [id number] [place] [address] Aug, [facility] [place] [address] [id number] [place] [id number] Aug, [facility] [address] [facility] [id number] [place] [address] July, [facility] [place] [address] [id number] [place] [id number] July, [facility] [address]00565100[place] [address] July, [facility] [place] [address] [id number] [place] [id number] Jun, [facility] [place] [address] [id number] [place] [id number] Jun, [facility] [place] [address] [id number] [place] 6[address]270178 Jun, [facility] [address] [facility] [id number] [place] [address] Jun, [facility] [place] [address] [id number] [place] [id number] May, [facility] [place] [address] [id number] [place] [id number] May, [facility] [address] [facility] [id number] [place] [address] May, [facility] [place] [address] [id number] [place] [id number] Apr, [facility] [address] [facility] [id number] [place] [address] Apr, [facility] [place] [address] [id number] [place] [id number] Apr, [facility] [place] [address] [id number] [place] [id number] Apr, [facility] [place] [facility] [address] [facility] [id number] [place] [address] Mar, [facility] [place] [address] [id number] [place] [id number] Mar, [facility] [place] [address] [id number] [place] [id number] Mar, [facility] [place] [address] [id number] [place] [id number] Feb, [facility] [place] [facility] [address] [facility] [id number] Feb, [facility] [place] [address] [id number], [place] [id number] Jan, [facility] [place] [address] [facility] [id number], [place] [id number] Jan, [facility] [place] [facility] [address]00565100[place] [address] Jan, [facility] [place] [facility] [id number] [place] [address]- [address] Jan, [facility] [place] [address] [facility] [id number], [place] [id number] Jan, [facility] [place] [facility] [address] [facility] [id number] [place] 24955851- [address] Jan, [facility] [place] [address] [facility] [id number], [place] [id number] Dec, [facility] [place] [facility] [address] [facility] [id number] [place] [address] Dec, [facility] [place] [address] [facility] [id number], [place] [id number] Dec, [facility] [place] [facility] [address] [facility] [id number] [place] 18058897[place] [address] Dec, [facility] [place] [address] [id number], [place] [id number] Dec, [facility] [place] [address] [id number] [place] [address]830 Nov, [facility] [place] [address] [id number] [place] [id number] Nov, [facility] [place] [address] [id number] [place] [id number] Oct, [facility] [place] [address] [id number] [place] 155532625 Oct, [facility] [place] [address] [id number] [place] 438917287 Sep, [facility] [place] [address] [id number] [place] [id number] Sep, [facility] [place] [address] [id number] [place] 892145872 Sep, [facility] [place] [address] [id number] [place] [id number] Aug, [facility] [address] [id number] [place] [id number] Aug, [facility] [place] [address] [id number] [place] [id number] July, [facility] [place] [address] [id number] [place] [id number] July, [facility] [place] [address] [id number] [place] [id number] July, [facility] [place] [address] [id number] [place] [id number] July, [facility] [address] [id number] [address] Jun, [facility] [place] [address] [id number] [place] 698261845 Jun, [facility] [place] [address] [id number] [place] 859718464 Jun, [facility] [place] [address] [id number] [place] 927403245 Jun, [facility] [place] [address] [id number] [place] 050802458 May, [facility] [place] [address] [id number] [place] [id number] May, [facility] [place] [address] [id number] [place] 812713898 Apr, [facility] [place] [address] [id number] [place] 645348712 Apr, [facility] [place] [address] [id number] [place] [id number] Apr, [facility] [place] [address] [id number] [place] [id number] Apr, [facility] [place] [address] [id number] [place] [id number] Apr, [facility] [place] [facility] [id number] [place] [address]- [address] Apr, [facility] [place] [address] [id number] [place] 884620910 Apr, [facility] [place] [address] [id number] [place] [id number] Apr, [facility] [place] [address] [id number] [place] [id number] Mar, [facility] [place] [facility] [id number] [place] [address]- [address]21 Feb, [facility] [place] [facility] [address] [id number] [address]- [address] Feb, [facility] [place] [facility] [id number] [place] [address]- [address]79 Feb, [facility] [place] [facility] [id number] [place] [address]01- 3710 Feb, [facility] [place] [facility] [id number] [place] [address] 31[address]- 9806 Jan, [facility] [place] [facility] [id number] [place] [address] 14731- 6115 Jan, [facility] [place] [facility] [id number] [place] [address]- 1266 Jan, [facility] [place] [facility] [address] [id number] [place] [address]- [address]57 Dec, [facility] [place] [facility] [address] [id number] [place] [address]- [address]279 Dec, [facility] [place] [facility] [address] [id number] [place] [address]- [address] 17 Aug, 2010 [facility] [place] [facility] [address] [id number] [place] [address]- [address]32 16 Aug, 2010 [facility] [place] [facility] [address] [id number] [place] [address]- [address] 30 Feb, 2010 [facility] [place] [facility] [address] [id number] [place] [address]- 4081 Feb, [facility] [place] [facility] [address] [id number] [place] [address]- 2537 Jan, [facility] [place] [facility] [address] [id number] [place] [address]- [address]591 Jan, [facility] [place] [facility] [address] [id number] [place] [address]- 2500 Dec, [facility] [place] [facility] [address] [id number] [place] [address]- 5583 Dec, [facility] [place] [facility] [address] [id number] [place] [address]- [address] Dec, [facility] [place] [facility] [address] [id number] [address]- 9591 May, [facility] [place] [facility] [address] [id number] [place] [address]- 4201 Mar, [facility] [place] [facility] [address] [id number] [place] [address]- 1791 Feb, [facility] [place] [facility] [address] [id number] [place] [address]- [address] 08 Feb, 2009 [facility] [place] [facility] [address] [id number] [address]- [address] Feb, [facility] [address] [id number] [address]- 47[address] Jan, [facility] [address]00565100[place] [address]- [address] Jan, [facility] [id number] [address]- [address] Oct, [facility] [id number] [address]- [address] July, [facility] [id number] [place] [address]- 2813 Apr, [facility] [id number] [address]- [address] Jan, [facility] [address]65100[place] [address]- [address] Jan, IMMUNIZATIONS No Known Immunizations SOCIAL HISTORY Never Assessed REASON FOR VISIT Lab (walk-in) [facility] PLAN OF CARE VITAL SIGNS MEDICATIONS Unknown Medications RESULTS Name Result Date Reference Range [employer] 2016-11-16 PROCEDURES Procedure Date Ordered Result Body Site No Charge Nov 16, 2016 INSTRUCTIONS MEDICATIONS ADMINISTERED No Known Medications [...] Hospitalization History surgeries, childbirth Hospitalization History [facility]- Possible Stroke 05/16/2017
--- OUTSIDE RECORDS SUMMARY | 2017-09-20 06:38 | XMS REPORT ---
Author Author CARTACHITA MOLINA Organization [facility] Address [address] [place] [address] Care Team Providers Care Park Maintenance Technician Name Role Phone CATRACHITA MOLINA Unavailable PROBLEMS Type Condition ICD9-CM Code LNU82-XZ Code Onset Dates Condition Status SNOMED Code Problem RLS (restless legs syndrome) G25.81 Active 96491410 Problem Encounter for immunization Z23 Active 722408898 Problem Essential hypertension I10 Active 47697702 Problem Diabetes type 2, controlled E11.9 Active 01804276 Problem Diabetic polyneuropathy associated with type 2 diabetes mellitus E11.42 Active 21605345 Problem Other chronic pain G89.29 Active 13038121 Problem Hypoglycemia E16.2 Active 330051248 Problem Reactive depression F32.9 Active 30183981 Problem Type 2 diabetes mellitus with hyperglycemia E11.65 Active 330394561787487 Problem Spinal stenosis, unspecified spinal region M48.00 Active 12417800 Problem Type 2 diabetes mellitus with other specified complication E11.69 Active 82810988052680 Problem Hyperlipidemia, unspecified E78.5 Active 05783076 ALLERGIES No Information ENCOUNTERS Encounter Location Date Diagnosis [facility] [id number] [place] [address] [id number] July, [place] [id number] [place] [address] [id number] July, Diabetic polyneuropathy associated with type 2 diabetes mellitus E11.42 ; Type 2 diabetes mellitus with hyperglycemia E11.65 ; RLS (restless legs syndrome ) G25.81 and Essential hypertension I10 [address] [place] [address] [id number] July, Spinal stenosis, unspecified spinal region M48.00 [address]00565100[place] [id number] July, [place] [id number] [place] [address] [id number] Jun, Type 2 diabetes mellitus with other specified complication E11.69 [facility] [place] [id number] [id number] Jun, Spinal stenosis, unspecified spinal region M48.00 [facility] [place] [id number] [place] [address] [id number] 05 Jun, 2017 Hypoglycemia E16.2 [facility] [address] [place] [id number] [place] [address] [id number] May, Hypoglycemia E16.2 ; Acute cystitis with hematuria N30.01 and Essential hypertension I10 [facility] [address]005[address], [place] [id number] May, [facility] [address] [id number] [place] [address] [id number] May, Spinal stenosis, unspecified spinal region M48.00 [facility] [id number] [place] [address] [id number] May, Reactive depression F32.9 [facility] [address] [id number] [place] [address] [id number] May, [facility] [id number] [place] [address] [id number] Apr, [facility] [address] [id number] [phone] Apr, [facility] [address] [id number], [place] [id number] Apr, [facility] [id number] [id number] Apr, [facility] [id number] [place] [address] [id number] Apr, Spinal stenosis, unspecified spinal region M48.00 [facility] [address] [id number] [place] [address] [id number] 08 Apr, 2017 Type 2 diabetes mellitus with other specified complication E11.69 ; Spinal stenosis, unspecified spinal region M48.00 ; Reactive depression F32.9 and Essential hypertension I10 [facility] [address] [id number][place] [phone] Apr, [facility] [address] [id number][place] [id number] Mar, Spinal stenosis, unspecified spinal region M48.00 [facility] [address] [id number], [place] [id number] Feb, Acute non-recurrent maxillary sinusitis J01.00 and Essential hypertension I10 [facility] [id number] [place] [address] [id number] Feb, Spinal stenosis, unspecified spinal region M48.00 [facility] [address] [id number], [place] [id number] Feb, Type 2 diabetes mellitus with other specified complication E11.69 [facility] [id number] [place] [address] [id number] Feb, Type 2 diabetes mellitus with other specified complication E11.69 and Essential hypertension I10 [facility] [id number] [place] [address] [id number] Feb, [facility] [id number] [place] [address] [id number] Feb, [facility] [id number] [place] [address] [id number] Jan, Spinal stenosis, unspecified spinal region M48.00 [facility] [id number] [place] [address] [id number] Jan, Diabetic polyneuropathy associated with type 2 diabetes mellitus E11.42 [facility] [address] [id number], [place] [id number] Jan, Diabetic polyneuropathy associated with type 2 diabetes mellitus E11.42 [facility] [address] [id number], [place] [id number] Jan, Type 2 diabetes mellitus with hyperglycemia E11.65 ; Type 2 diabetes mellitus with other specified complication E11.69 ; Spinal stenosis, unspecified spinal region M48.00 and Essential hypertension I10 [facility] [id number] [place] [address] [id number] Jan, Diabetic polyneuropathy associated with type 2 diabetes mellitus E11.42 [facility] [address] [id number], [place] [id number] Dec, [facility] [address] [id number] [place] [address] [id number] Dec, Diabetic polyneuropathy associated with type 2 diabetes mellitus E11.42 ; Type 2 diabetes mellitus with other specified complication E11.69 ; Hyperlipidemia, unspecified E78.5 ; Thyroid disorder E07.9 and Thyroid disorder screening Z13.29 [facility] [address] [id number] [place] [address] [id number] Dec, Diabetic polyneuropathy associated with type 2 diabetes mellitus E11.42 [facility] [id number] [place] [address] 390020- 2986 17 Dec, 2016 Diabetic polyneuropathy associated with type 2 diabetes mellitus E11.42 [facility] [address] [id number] [place] [address] [id number] Dec, Spinal stenosis, unspecified spinal region M48.00 [facility] [id number] [place] [address] [id number] Dec, [facility] [id number] [place] [address] [id number] 18 Nov, 2016 Diabetic polyneuropathy associated with type 2 diabetes mellitus E11.42 [facility] [address] [id number] [place] [address] [id number] 15 Nov, 2016 Other chronic pain G89.29 [facility] [id number] [place] [address] [id number] 14 Nov, 2016 Spinal stenosis, unspecified spinal region M48.00 [facility] [id number] [place] [address] [id number] Oct, Spinal stenosis, unspecified spinal region M48.00 ; Essential hypertension I10 ; RLS (restless legs syndrome) G25.81 and Diabetic polyneuropathy associated with type 2 diabetes mellitus E11.42 [facility] [id number] [place] [address] [id number] Oct, Spinal stenosis, unspecified spinal region M48.00 [facility] [id number] [place] [address] [id number] Sep, Diabetic polyneuropathy associated with type 2 diabetes mellitus E11.42 ; RLS (restless legs syndrome) G25.81 ; Spinal stenosis, unspecified spinal region M48.00 and Essential hypertension I10 [facility] [address] [id number] [place] [id number] 14 Sep, 2016 [facility] [address] [id number] [place] [id number] Sep, Spinal stenosis, unspecified spinal region M48.00 [facility] [address] [id number] [place] [id number] Sep, [facility] [address] [id number] [place] [id number] Aug, Spinal stenosis, unspecified spinal region M48.00 [facility] [address] [address] July, [facility] [address] [id number] [place] [address] [id number] July, Spinal stenosis, unspecified spinal region M48.00 [facility] [address] [place] [address] [id number] [place] [address], [place] [id number] Jun, Type 2 diabetes mellitus with hyperglycemia E11.65 [facility] [id number] [place] [address] [id number] Jun, Spinal stenosis, unspecified spinal region M48.00 [facility] [id number] [place] [address] [id number] May, Spinal stenosis, unspecified spinal region M48.00 [facility] [address] [id number] [place] [address] [id number] Apr, Spinal stenosis, unspecified spinal region M48.00 [facility] [id number] [place] [address] 49905- 4368 Mar, [facility] [id number] [place] [address] [id number] Mar, Type 2 diabetes mellitus with hyperglycemia E11.65 ; RLS (restless legs syndrome) G25.81 and Spinal stenosis, unspecified spinal region M48.00 [facility] [address] [address] Mar, [facility] [address] [facility] [id number] [id number] Mar, [facility] [address] [place] [address] [id number], [place] [id number] Mar, [facility] [place] [address] [id number], [place] [id number] Feb, [facility] [address] [facility] [id number] [address]- [address] Feb, [facility] [address] [id number], [place] [id number] Feb, [facility] [address] [id number], [place] [id number] Feb, [facility] [address]00565100[place], [place] [address] Feb, [facility] [address]00565100[place], [place] [address]- [address] Feb, [facility] [address] [facility] [id number], [place] [phone] Jan, [facility] [id number], [place] [id number] Dec, Diabetic polyneuropathy associated with type 2 diabetes mellitus E11.42 ; Other chronic pain G89.29 ; Essential hypertension I10 and Encounter for immunization Z23 [facility] [address] [id number], [place] [id number] Dec, [facility] [address] [facility] [id number][place] [address]- 2546 Nov, [facility] [address] [id number], [place] [id number] Nov, [facility] [address] [id number], [place] [id number] Nov, Diabetes type 2, controlled E11.9 [facility] [address] [id number], [place] [id number] Nov, Diabetes type 2, controlled E11.9 ; Other chronic pain G89.29 ; Essential hypertension I10 ; Diabetic polyneuropathy associated with type 2 diabetes mellitus E11.42 and RLS (restless legs syndrome) G25.81 [facility] [address] [facility] [id number] [place] [address] 58626- 8045 Nov, [facility] [id number] [place] [address] [id number] Oct, [facility] [id number] [place] [address] [id number] Oct, [facility] [id number] [place] [address] [id number] Oct, [facility] [address] [facility] [id number] [place] [address] 65177 2544 Oct, [facility] [id number] [place] [address] [id number] Sep, [facility] [id number] [place] [address] [id number] Sep, [facility] [address] [id number] [place] [address] 00711- 2187 Sep, Dental examination Z01.20 [facility] [address] [place] [id number] [place] [address] 66208- 4482 Aug, [facility] [address] [id number] [place] [address] [id number] Aug, [facility] [id number] [place] [address] 29876- 4913 Aug, [facility] [id number] [place] [address] 12985- 0924 July, [facility] [address] [id number] [address]- 2190 July, [facility] [id number] [place] [address] 81395- 3869 July, [facility] [address] [id number], [place] [id number] July, [facility] [id number] [place] [address] [id number] July, [facility] [address] [id number], [place] [id number] July, [facility] [address]005[address]100[place], [place] 04057292- 5482 July, [facility] [id number], [place] [id number] Jun, Diabetes type 2, controlled E11.9 [facility] [id number] [place] [address] [id number] Jun, [facility] [address] [id number], [place] [id number] May, Diabetes type 1, uncontrolled E10.65 [facility] [address] [id number] [place] [phone] May, [facility] [address] [id number], [place] [id number] Apr, [facility] [address] [id number], [place] [id number] Apr, [facility] [address] [id number], [place] [id number] Mar, [facility] [address] [id number], [place] [id number] Mar, [facility] [address] [id number], [place] [id number] Mar, [facility] [address] [id number], [place] [id number] Mar, Diabetes type 1, uncontrolled E10.65 [facility] [address] [id number], [place] [id number] Feb, [facility] [address] [id number], [place] [id number] Feb, [facility] [address] [id number], [place] [id number] Feb, [facility] [address] [id number] [place] [id number] Jan, [facility] [address] [id number], [place] [id number] Jan, Acute cystitis with hematuria N30.01 and Dysuria R30.0 [facility] [id number], [place] [id number] Jan, [facility] [address] [id number] [place] [address] [id number] Dec, Gastroenteritis K52.9 and Headache, unspecified headache type R51 [facility] [id number] [place] [address] [id number] Dec, [facility] [id number] [place] [address] [id number] Dec, Chronic back pain 724.5 [facility] [address] [place] [address] [id number] Dec, [facility] [id number] [place] [address] [id number] Nov, Chronic back pain 724.5 and Diabetes mellitus without mention of complication, type II or unspecified type, uncontrolled 250.02 [facility] [id number] [place] [address] [id number] Nov, [place] [id number] [place] [address] [id number] Oct, [place] [id number] [place] [address] [id number] Sep, Diabetes mellitus without mention of complication, type II or unspecified type, uncontrolled 250.02 and Urinary tract infection 599.0 [address]00565100[place], [place] [id number] July, [facility] [address] [place] [address] 85414- 4216 Jun, [facility] [address] [place] [address] 80612- 0182 Jun, [address] [place] [address] [id number] May, [facility] [address] [place] [address] 23825- 6349 May, [address] [place] [address] [id number] May, [facility] [place] [facility] [address] [id number] [place] [address]- 7687 May, [facility] [address] [id number] [place] [id number] Mar, [facility] [place] [facility] [address] [facility] [id number] [address]- 4706 Mar, [facility] [place] [facility] [address] [facility] [id number] [place] [address]- 5055 Mar, [facility] [address] [id number] [place] [id number] Mar, [facility] [address] [id number] [place] [id number] Feb, [facility] [place] [facility] [address] [facility] [id number] [address]- 7941 Feb, [facility] [address] [facility] [id number], [place] [id number] Feb, [facility] [place] [facility] [address] [facility] [id number], [place] [address]- 0424 Feb, [facility] [place] [facility] [address] [facility] [id number], [place] [address]- 4299 Feb, [facility] [address] [facility] [id number], [place] [id number] Feb, [facility] [address] [facility] [id number], [place] [id number] Feb, [facility] [place] [facility] [address] [facility] [id number] [address]- 9090 Feb, [facility] [place] [facility] [address] [facility] [id number] [address]- 8945 Feb, [facility] [address] [facility] [id number], [place] [id number] Jan, [facility] [place] [facility] [address] [facility] [id number][place] [address]- 3014 Jan, [facility] [address] [id number], [place] [id number] Jan, [facility] [place] [facility] [address] [id number] [place] [address]- 2546 Jan, [facility] [address] [id number] [place] [id number] Dec, [facility] [place] [facility] [address] [facility] [id number] [place] [address]- 7296 Dec, [facility] [place] [facility] [address] [facility] [id number] [place] [address]- 1846 Dec, [facility] [place] [facility] [address] [facility] [id number] [place] [address]- 3724 Dec, [facility] [address] [facility] [id number], [place] [id number] Dec, [facility] [place] [facility] [address] [facility] [id number], [place] [address] 2546 Dec, [facility] [address] [facility] [id number], [place] [id number] Nov, [facility] [place] [facility] [address] [facility] [id number][place] [address]- 5951 Nov, [facility] [address] [facility] [id number], [place] [id number] Oct, [facility] [place] [facility] [address] [facility] [id number], [place] [address]- 7606 Oct, [facility] [place] [facility] [address] [facility] [id number][place] [address]- 2546 Sep, [facility] [address] [id number], [place] [id number] Sep, [facility] [address] [id number], [place] [id number] Aug, [facility] [place] [facility] [address] [facility] [id number] [place] [address]- 2546 Aug, [facility] [address] [id number], [place] [id number] July, [facility] [place] [facility] [address] [facility] [id number][place] [address]- 5916 July, [facility] [address] [facility] [id number], [place] [id number] July, [facility] [place] [facility] [address] [id number] [address]- 1276 July, [facility] [place] [facility] [address] [id number] [address]- 8656 July, [facility] [place] [facility] [address] [facility] [id number][place] [address]- 4456 Jun, [facility] [address] [facility] [id number], [place] [id number] Jun, [facility] [address] [facility] [id number], [place] [id number] Jun, [facility] [place] [facility] [address]00565100[place], [place] [address]- 4746 Jun, [facility] [place] [facility] [address] [id number], [place] [address]- 1936 Jun, [facility] [place] [facility] [address] [id number] [address]- 7906 May, [facility] [address] [id number] [id number] Apr, [facility] [place] [facility] [address] [id number] [address] Apr, [facility] [address] [facility] [id number][place] [id number] Apr, [facility] [place] [facility] [address] [facility] [id number], [place] [address] Apr, [facility] [place] [facility] [address] [facility] [id number], [place] [address] Mar, [facility] [place] [facility] [address] [id number] [address] Mar, [facility] [place] [facility] [address] [id number] [address] Mar, [facility] [address] [id number][place] [id number] Mar, [facility] [address] [facility] [id number], [place] [address] Mar, [facility] [address] [facility] [id number], [place] [address] Mar, [facility] [address] [facility] [id number], [place] [address] Feb, [facility] [address] [id number][place] [id number] Feb, [facility] [address] [facility] [id number][place] [address] Feb, [facility] [address] [id number][place] [id number] Feb, [facility] [id number] [address] Feb, [facility] [address] [id number][place] [id number] Feb, [facility] [id number] [address] Feb, [facility] [address] [id number][place] [id number] Jan, [facility] [place] [facility] [id number] [address] Jan, [facility] [place] [facility] [address] [facility] [id number][place] [address] Dec, [facility] [address] [id number][place] [id number] Dec, [facility] [place] [facility] [address] [facility] [id number], [place] [address] Nov, [facility] [address] [id number][place] [id number] Oct, [facility] [address] [id number] [place] [id number] Oct, [facility] [address] [id number] [place] [id number] Sep, [facility] [address] [id number] [place] [address] Sep, [facility] [address] [id number] [place] [id number] Sep, [facility] [address] [id number] [place] [id number] Sep, [facility] [place] [address] [id number] [place] [id number] Sep, [facility] [place] [address] [id number] [place] [id number] Sep, [facility] [place] [address] [id number] [place] [id number] Sep, [facility] [address] [address] Aug, [facility] [place] [address] [id number] [place] [id number] Aug, [facility] [address] [facility] [id number], [place] [address] July, [facility] [place] [address] [id number] [place] [id number] July, [facility] [address] [facility] [id number] [address] July, [facility] [place] [address] [id number] [place] [id number] Jun, [facility] [place] [address] [id number] [place] [id number] Jun, [facility] [place] [address] [id number] [place] [id number] Jun, [facility] [place] [facility] [address] [facility] [id number] [place] [address] Jun, [facility] [place] [address] [id number] [place] [id number] May, [facility] [place] [address] [id number] [place] [id number] May, [facility] [place] [facility] [address] [facility] [id number] [address] May, [facility] [place] [address] [id number] [place] [id number] Apr, [facility] [place] [facility] [address] [facility] [id number][place] [address] Apr, [facility] [place] [address] [id number] [place] [id number] Apr, [facility] [place] [address] [id number] [place] [id number] Apr, [facility] [place] [facility] [address] [facility] [id number], [place] [address] Mar, [facility] [place] [address] [id number] [place] [id number] Mar, [facility] [place] [address] [id number] [place] [id number] Mar, [facility] [place] [address] [id number] [place] [id number] Feb, [facility] [address], [place] [address] Feb, [facility] [place] [address] [id number] [place] [id number] Jan, [facility] [place] [address] [facility] [id number] [id number] Jan, [facility] [place] [facility] [address] [facility] [id number], [place] [address] Jan, [facility] [place] [facility] [id number] [address] Jan, [facility] [place] [address] [facility] [id number][place] [address]79[place]05[place] Jan, [facility] [place] [facility] [id number] [address] Jan, [facility] [place] [address] [id number] [place] [id number] Dec, [facility] [address] [id number][place] [address] Dec, [facility] [place] [address] [id number] [place] [id number] Dec, [facility] [address] [facility] [id number], [place] [address] Dec, [facility] [place] [address] [id number] [place] [id number] Dec, [facility] [place] [address] [id number] [place] [id number] Nov, [facility] [place] [address] [id number] [place] [id number] Nov, [facility] [place] [address] [id number] [place] [id number] Oct, [facility] [place] [address] [id number] [place] [id number] Oct, [facility] [place] [address] [id number] [place] [address] Sep, [facility] [place] [address] [id number] [place] [address] Sep, [facility] [place] [address] [id number] [place] [id number] Sep, [facility] [place] [address] [id number] [id number] Aug, [facility] [place] [address] [id number] [place] [id number] Aug, [facility] [place] [address] [id number] [place] [id number] July, [facility] [place] [address] [id number] [place] [address] July, [facility] [place] [address] [id number] [place] [id number] July, [facility] [place] [address] [id number][place] [id number] July, [facility] [address] [facility] [id number], [place] [address] Jun, [facility] [place] [address] [id number] [place] [id number] Jun, [facility] [place] [address] [id number] [place] [id number] Jun, [facility] [place] [address] [id number] [place] [id number] Jun, [facility] [place] [address] [id number] [place] [address] May, [facility] [place] [address] [id number] [place] [id number] May, [facility] [place] [address] [id number] [place] [id number] Apr, [facility] [place] [address] [id number] [place] [address] Apr, [facility] [place] [address] [id number] [place] [id number] Apr, [facility] [place] [address] [id number] [place] [id number] Apr, [facility] [place] [address] [id number] [place] [id number] Apr, [facility] [id number] [address] Apr, [facility] [place] [address] [id number] [place] [id number] Apr, [facility] [place] [address] [id number] [place] [id number] Apr, [facility] [place] [id number][place] [id number] Mar, [facility] [id number] [place] [id number]- [address] Feb, [facility] [id number], [place] [address] Feb, [facility] [id number] [place] [address] Feb, [facility] [place] [facility] [address] [id number] [place] [address]- [address] 05 Feb, 2011 [facility] [place] [facility] [address] [id number] [place] [address] Jan, [facility] [place] [facility] [address] [facility] [id number] [place] [address]- [address] Jan, [facility] [place] [facility] [address] [id number] [place] [address]- [address] Jan, [facility] [place] [facility] [address] [id number] [place] [address]- [address] Dec, [facility] [place] [facility] [address] [id number] [place] [address]- [address] 24 Dec, 2010 [facility] [place] [facility] [address] [facility] [id number] [place] [address]- [address] Aug, [facility] [place] [facility] [address] [facility] [id number] [place] [address]- [address] Aug, [facility] [place] [facility] [address] [facility] [id number] [place] [address]- [address] Feb, [facility] [place] [facility] [address] [facility] [id number] [place] [address]- [address] Feb, [facility] [place] [facility] [address] [id number], [place] [address] Jan, [facility] [place] [facility] [address] [id number] [place] [address]- [address] Jan, [facility] [place] [facility] [address] [id number] [place] [address]- 119[address] Dec, [facility] [place] [facility] [address] [facility] [id number] [place] [address]- [address] Dec, [facility] [place] [facility] [address] [facility] [id number] [place] [address]- [address] Dec, [facility] [place] [facility] [id number], [place] [address] May, [facility] [id number], [place] [address] Mar, [facility] [id number], [place] [address] Feb, [facility] [id number], [place] [address]- [address] Feb, [facility] [id number], [place] [address]- [address] Feb, [facility] [id number], [place] [address]- [address] Jan, [facility] [id number], [place] [address]- [address] Jan, [facility] [id number], [place] [address]- [address] Oct, [facility] [id number], [place] [address]- [address] July, [facility] [id number], [place] [address]- [address] Apr, [facility] [id number], [place] [address]- [address] Jan, [facility] [id number] [address]- [address] Jan, IMMUNIZATIONS No Known Immunizations SOCIAL HISTORY Never Assessed REASON FOR VISIT PALS PLAN OF CARE VITAL SIGNS MEDICATIONS Medication Instructions Dosage Frequency Start Date End Date Duration Status Levemir 100 UNIT/ML Subcutaneous 2 times a day 72 u am 68 u pm units 12h 20 Jun, 2015 Active RESULTS [...] Hospitalization History surgeries, childbirth Hospitalization History ED [place]- Possible Stroke 05/16/2017
--- OUTSIDE RECORDS SUMMARY | 2017-09-20 06:39 | XMS REPORT ---
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 Name Role Phone BROOKE WIN Unavailable PROBLEMS Type Condition ICD9-CM Code SHG06-NI Code Onset Dates Condition Status SNOMED Code Problem RLS (restless legs syndrome) G25.81 Active 86395499 Problem Encounter for immunization Z23 Active 225877011 Problem Essential hypertension I10 Active 21045095 Problem Diabetes type 2, controlled E11.9 Active 96484480 Problem Diabetic polyneuropathy associated with type 2 diabetes mellitus E11.42 Active 96991104 Problem Other chronic pain G89.29 Active 01802243 Problem Hypoglycemia E16.2 Active 224557657 Problem Reactive depression F32.9 Active 27371577 Problem Type 2 diabetes mellitus with hyperglycemia E11.65 Active 431549309218694 Problem Spinal stenosis, unspecified spinal region M48.00 Active 38619209 Problem Type 2 diabetes mellitus with other specified complication E11.69 Active 66813462686951 Problem Hyperlipidemia, unspecified E78.5 Active 12878137 ALLERGIES No Information ENCOUNTERS Encounter Location Date Diagnosis [facility] [address] [facility] [id number] [address] Aug, [facility] [id number], [place] [id number] Aug, Spinal stenosis, unspecified spinal region M48.00 [facility] [id number] [place] [address] [id number] Aug, Spinal stenosis, unspecified spinal region M48.00 [facility] [id number], [place] [id number] July, [facility] [id number], [place] [id number] July, Diabetic polyneuropathy associated with type 2 diabetes mellitus E11.42 ; Type 2 diabetes mellitus with hyperglycemia E11.65 ; RLS (restless legs syndrome ) G25.81 and Essential hypertension I10 [facility] [id number] [place] [address] [id number] July, Spinal stenosis, unspecified spinal region M48.00 [facility] [id number] [place] [address] [id number] July, [facility] [id number] [place] [address] [id number] Jun, Type 2 diabetes mellitus with other specified complication E11.69 [facility] [id number] [place] [address] [id number] Jun, Spinal stenosis, unspecified spinal region M48.00 [facility] [place] [id number] [place] [address] [id number] Jun, Hypoglycemia E16.2 [facility] [place] [id number] [place] [address] [id number] May, Hypoglycemia E16.2 ; Acute cystitis with hematuria N30.01 and Essential hypertension I10 [facility] [address]00565100[place] [phone] May, [facility] [id number] [place] [address] [id number] May, Spinal stenosis, unspecified spinal region M48.00 [facility] [place] [id number] [place] [address] [phone] May, Reactive depression F32.9 [facility] [place] [id number], [place] [phone] May, [facility] [id number], [place] [id number] Apr, [facility] [address] [id number], [place] [id number] Apr, [facility] [address] [address] [id number], [place] [phone] Apr, [facility] [id number] [place] [address] [id number] Apr, [facility] [address] [id number], [place] [id number] Apr, Spinal stenosis, unspecified spinal region M48.00 [facility] [address] [id number] [place] [address] [id number] Apr, Type 2 diabetes mellitus with other specified complication E11.69 ; Spinal stenosis, unspecified spinal region M48.00 ; Reactive depression F32.9 and Essential hypertension I10 [facility] [address] [id number], [place] [phone] Apr, [facility] [address] [id number], [place] [id number] Mar, Spinal stenosis, unspecified spinal region M48.00 [facility] [address] [id number] [place] [address] [id number] Feb, Acute non-recurrent maxillary sinusitis J01.00 and Essential hypertension I10 [facility] [address] [id number] [place] [address] [id number] Feb, Spinal stenosis, unspecified spinal region M48.00 [facility] [place] [address] [id number], [place] [phone] Feb, Type 2 diabetes mellitus with other specified complication E11.69 [facility] [address] [id number] [place] [address] [id number] Feb, Type 2 diabetes mellitus with other specified complication E11.69 and Essential hypertension I10 [facility] [address] [id number], [place] [id number] Feb, [facility] [address] [id number] [place] [address] [id number] Feb, [facility] [place] [address] [id number], [place] [phone] Jan, Spinal stenosis, unspecified spinal region M48.00 [facility] [place] [address] [id number] [place] [address] [id number] Jan, Diabetic polyneuropathy associated with type 2 diabetes mellitus E11.42 [facility] [address] [id number], [place] [id number] Jan, Diabetic polyneuropathy associated with type 2 diabetes mellitus E11.42 [facility] [place] [id number], [place] [id number] Jan, Type 2 diabetes mellitus with hyperglycemia E11.65 ; Type 2 diabetes mellitus with other specified complication E11.69 ; Spinal stenosis, unspecified spinal region M48.00 and Essential hypertension I10 [facility] [place] [id number] [place] [address] [id number] Jan, Diabetic polyneuropathy associated with type 2 diabetes mellitus E11.42 [facility] [place] [id number] [place] [address] [id number] Dec, [facility] [place] [id number] [place] [address] [id number] Dec, Diabetic polyneuropathy associated with type 2 diabetes mellitus E11.42 ; Type 2 diabetes mellitus with other specified complication E11.69 ; Hyperlipidemia, unspecified E78.5 ; Thyroid disorder E07.9 and Thyroid disorder screening Z13.29 [facility] [place] [id number] [place] [address] [id number] Dec, Diabetic polyneuropathy associated with type 2 diabetes mellitus E11.42 [facility] [id number] [place] [address] [phone] 17 Dec, 2016 Diabetic polyneuropathy associated with type 2 diabetes mellitus E11.42 [facility] [place] [id number] [place] [address] [id number] Dec, Spinal stenosis, unspecified spinal region M48.00 [facility] [place] [id number] [place] [address] [id number] Dec, [facility] [place] [id number] [place] [address] [id number] 18 Nov, 2016 Diabetic polyneuropathy associated with type 2 diabetes mellitus E11.42 [facility] [place] [id number] [place] [address] [id number] 15 Nov, 2016 Other chronic pain G89.29 [facility] [place] [id number] [place] [address] [id number] 14 Nov, 2016 Spinal stenosis, unspecified spinal region M48.00 [facility] [place] [id number] [place] [address] [id number] Oct, Spinal stenosis, unspecified spinal region M48.00 ; Essential hypertension I10 ; RLS (restless legs syndrome) G25.81 and Diabetic polyneuropathy associated with type 2 diabetes mellitus E11.42 [facility] [address] [id number] [place] [id number] Oct, Spinal stenosis, unspecified spinal region M48.00 [facility] [address] [id number] [place] [id number] Sep, Diabetic polyneuropathy associated with type 2 diabetes mellitus E11.42 ; RLS (restless legs syndrome) G25.81 ; Spinal stenosis, unspecified spinal region M48.00 and Essential hypertension I10 [facility] [address] [id number] [place] [phone] Sep, [facility] [address] [id number] [place] [phone] Sep, Spinal stenosis, unspecified spinal region M48.00 [facility] [address] [id number] [place] [phone] Sep, [facility] [address] [id number] [place] [id number] Aug, Spinal stenosis, unspecified spinal region M48.00 [facility] [address]00565100[place], [place] [address] July, [facility] [id number] [place] [address] [id number] July, Spinal stenosis, unspecified spinal region M48.00 [facility] [address] [id number] [place] [address] [id number] Jun, Type 2 diabetes mellitus with hyperglycemia E11.65 [facility] [address] [id number] [place] [phone] Jun, Spinal stenosis, unspecified spinal region M48.00 [facility] [address] [id number] [place] [phone] May, Spinal stenosis, unspecified spinal region M48.00 [facility] [address] [id number] [place] [id number] Apr, Spinal stenosis, unspecified spinal region M48.00 [facility] [facility] [address]00565100[place], [place] [address] Mar, [facility] [place] [address] [id number] [place] [address] [id number] Mar, Type 2 diabetes mellitus with hyperglycemia E11.65 ; RLS (restless legs syndrome) G25.81 and Spinal stenosis, unspecified spinal region M48.00 [facility] [id number] [place] [address] 62445 2543 Mar, [facility] [place] [address] [id number], [place] [id number] Mar, [facility] [address]00565100[place], [place] [id number] Mar, [facility] [place] [id number], [place] [id number] Feb, [facility] [id number] [place] [address] 93741- 8335 Feb, [facility] [id number] [place] [address] [id number] Feb, [facility] [id number] [place] [address] [id number] Feb, [facility] [id number] [place] [address] [phone] Feb, [facility] [address]00565100[place], [place] [address] 254 Feb, [facility] [id number] [place] [address] [id number] Jan, [facility] [id number] [place] [address] [id number] Dec, Diabetic polyneuropathy associated with type 2 diabetes mellitus E11.42 ; Other chronic pain G89.29 ; Essential hypertension I10 and Encounter for immunization Z23 [facility] [place] [address] [id number] [place] [address] [id number] Dec, [facility] [id number] [place] [address] 17613- 0729 Nov, [facility] [id number], [place] [id number] Nov, [facility] [id number] [place] [address] [id number] Nov, Diabetes type 2, controlled E11.9 [facility] [id number] [place] [address] [id number] 14 Nov, 2015 Diabetes type 2, controlled E11.9 ; Other chronic pain G89.29 ; Essential hypertension I10 ; Diabetic polyneuropathy associated with type 2 diabetes mellitus E11.42 and RLS (restless legs syndrome) G25.81 [facility] [id number] [place] [address] 81552- 4228 Nov, [facility] [id number] [place] [address] [id number] Oct, [facility] [id number] [place] [address] [id number] Oct, [facility] [id number] [place] [address] [id number] Oct, [facility] [id number] [place] [address] 61284- 5028 Oct, [facility] [id number] [place] [address] [id number] Sep, [facility] [id number] [place] [address] [id number] Sep, [facility] [id number] [place] [address] 47939- 3412 Sep, Dental examination Z01.20 [facility] [id number] [place] [address] 97251- 9416 Aug, [facility] [id number] [place] [address] [id number] Aug, [facility] [id number] [place] [address] 70240- 9684 Aug, [facility] [id number] [place] [address] 53188- 0348 July, [facility] [address] [facility] [id number], [place] [address]- [address] July, [facility] [address] [facility] [id number], [place] [address]- 25[address] July, [facility] [place] [address] [facility] [id number], [place] [id number] July, [facility] [address] [id number], [place] [phone] July, [facility] [address] [facility] [id number], [place] [id number] July, [facility] [address] [facility] [id number], [place] [address]- 2546 July, [facility] [id number], [place] [id number] Jun, Diabetes type 2, controlled E11.9 [facility] [id number] [place] [address] [id number] Jun, [facility] [id number] [place] [address] [id number] May, Diabetes type 1, uncontrolled E10.65 [facility] [address] [id number] [place] [address] [id number] May, [facility] [id number] [place] [address] [id number] Apr, [facility] [address] [id number], [place] [phone] Apr, [facility] [address] [id number], [place] [phone] Mar, [facility] [address] [id number], [place] [id number] Mar, [facility] [address] [id number], [place] [id number] Mar, [facility] [address] [id number], [place] [id number] Mar, Diabetes type 1, uncontrolled E10.65 [facility] [address] [id number], [place] [id number] Feb, [facility] [place] [address] [facility] [id number], [place] [phone] Feb, [facility] [place] [address] [id number], [place] [id number] Feb, [facility] [facility] [id number], [place] [phone] Jan, [facility] [place] [address] [facility] [id number], [place] [id number] Jan, Acute cystitis with hematuria N30.01 and Dysuria R30.0 [facility] [address] [facility] [id number], [place] [phone] Jan, [facility] [id number] [place] [address] [id number] Dec, Gastroenteritis K52.9 and Headache, unspecified headache type R51 [facility] [id number], [place] [id number] Dec, [facility] [id number], [place] [id number] Dec, Chronic back pain 724.[address] [facility] [address] [id number] [id number] Dec, [facility] [address] [id number], [place] [id number] Nov, Chronic back pain 724.5 and Diabetes mellitus without mention of complication, type II or unspecified type, uncontrolled 250.02 [facility] [address] [facility] [id number], [place] [phone] Nov, [facility] [address] [id number], [place] [phone] Oct, [facility] [address] [id number], [place] [id number] Sep, Diabetes mellitus without mention of complication, type II or unspecified type, uncontrolled 250.02 and Urinary tract infection 599.0 [facility] [address] [id number], [place] [phone] July, [facility] [address]00565100[place], [place] [address]- 3946 Jun, [facility] [place] [facility] [address] [id number], [place] [address]- 7047 Jun, [facility] [address] [id number] [place] [id number] May, [facility] [place] [facility] [address] [facility] [id number], [place] [address]- 8155 May, [facility] [address] [id number] [place] [id number] May, [facility] [place] [facility] [address] [id number], [place] [address]- 3752 May, [facility] [address] [id number] [place] [id number] Mar, [facility] [place] [facility] [address]00565100[place], [place] [address]- 9883 Mar, [facility] [place] [facility] [address] [facility] [id number], [place] [address]- 5446 Mar, [facility] [address] [id number], [place] [id number] Mar, [facility] [address] [id number] [place] [id number] Feb, [facility] [place] [facility] [address] [facility] [id number], [place] [address]- 3669 Feb, [facility] [address] [id number], [place] [id number] Feb, [facility] [place] [facility] [address] [facility] [id number], [place] [address]- 1547 Feb, [facility] [place] [facility] [address] [facility] [id number], [place] [address]- 8842 Feb, [facility] [address] [id number] [place] [phone] Feb, [facility] [address] [id number] [place] [id number] Feb, [facility] [place] [facility] [address] [facility] [id number], [place] [address]- 2546 Feb, [facility] [address] [id number] [place] [address]- 2546 Feb, [facility] [address] [facility] [id number], [place] [id number] Jan, [facility] [place] [facility] [address] [facility] [id number], [place] [address]- 2546 Jan, [facility] [address] [facility] [id number] [place] [id number] Jan, [facility] [place] [facility] [address] [facility] [id number] [place] [address]- 2546 Jan, [facility] [address] [facility] [id number] [place] [phone] Dec, [facility] [place] [facility] [address] [facility] [id number], [place] [address]- 8106 Dec, [facility] [place] [facility] [address] [facility] [id number], [place] [address]- 1286 Dec, [facility] [place] [facility] [address] [facility] [id number], [place] [address]- 7196 Dec, [facility] [address] [facility] [id number], [place] [id number] Dec, [facility] [place] [facility] [address] [facility] [id number], [place] [address] Dec, [facility] [address] [facility] [id number][place] [id number] Nov, [facility] [place] [facility] [address] [id number], [place] [address] Nov, [facility] [address] [facility] [id number] [place] [id number] Oct, [facility] [place] [facility] [address] [facility] [id number] [place] [address] Oct, [facility] [place] [facility] [address] [facility] [id number], [place] [address] Sep, [facility] [address] [id number] [place] [id number] Sep, [facility] [address] [id number] [place] [id number] Aug, [facility] [place] [facility] [address] [facility] [id number] [place] [address] Aug, [facility] [address] [facility] [id number] [place] [id number] July, [facility] [place] [facility] [address] [facility] [id number] [place] [address] July, [facility] [address] [facility] [id number] [place] [id number] July, [facility] [place] [facility] [address] [facility] [id number] [place] [address] July, [facility] [place] [facility] [address] [facility] [id number] [place] [address] July, [facility] [place] [facility] [address] [facility] [id number], [place] [address] Jun, [facility] [address] [facility] [id number] [place] [id number] Jun, [facility] [address] [facility] [id number] [place] [id number] Jun, [facility] [place] [facility] [address] [facility] [id number] [place] [address] Jun, [facility] [place] [facility] [address] [facility] [id number], [place] [address] Jun, [facility] [place] [facility] [address] [facility] [id number] [place] [address] May, [facility] [address] [facility] [id number] [place] [id number] Apr, [facility] [place] [facility] [address] [facility] [id number] [place] [address] Apr, [facility] [address] [facility] [id number] [place] [id number] Apr, [facility] [address] [id number] [place] [address] Apr, [facility] [place] [facility] [address] [id number] [place] [address] Mar, [facility] [place] [facility] [address] [facility] [id number] [place] [address] Mar, [facility] [place] [facility] [address] [id number] [place] [address] Mar, [facility] [place] [address] [facility] [id number] [place] [id number] Mar, [facility] [place] [facility] [address] [id number] [place] [address] Mar, [facility] [place] [facility] [address] [facility] [id number] [place] [address] Mar, [facility] [place] [facility] [address] [id number], [place] [address] Feb, [facility] [place] [address] [id number] [place] [id number] Feb, [facility] [place] [facility] [address] [id number], [place] [address] Feb, [facility] [place] [address] [facility] [id number][place] [id number] Feb, [facility] [place] [facility] [address] [id number], [place] [address] Feb, [facility] [place] [address] [id number][place] [id number] Feb, [facility] [place] [facility] [address] [id number], [place] [address] Feb, [facility] [place] [address] [facility] [id number] [place] [id number] Jan, [facility] [place] [facility] [address] [id number] [place] [address] Jan, [facility] [place] [facility] [address] [id number] [place] [address] Dec, [facility] [place] [address] [id number] [place] [address] Dec, [facility] [place] [facility] [address] [facility] [id number] [place] [address] Nov, [facility] [place] [address] [id number] [place] [id number] Oct, [facility] [place] [address] [id number] [place] [id number] Oct, [facility] [place] [address] [id number] [place] [id number] Sep, [facility] [place] [facility] [address] [facility] [id number] [place] [address] Sep, [facility] [place] [address] [id number] [place] [address] Sep, [facility] [place] [address] [id number] [place] [address] Sep, [facility] [place] [address] [id number] [place] [id number] Sep, [facility] [place] [address] [id number] [place] [address] Sep, [facility] [place] [address] [id number] [place] [id number] Sep, [facility] [place] [facility] [address] [facility] [id number], [place] [address] Aug, [facility] [place] [address] [id number] [place] [id number] Aug, [facility] [place] [facility] [address] [facility] [id number] [place] [address]99 July, [facility] [place] [address] [id number] [place] [address] July, [facility] [place] [facility] [address] [facility] [id number] [place] [address] July, [facility] [place] [address] [id number] [place] [id number] Jun, [facility] [place] [address] [id number] [place] [id number] Jun, [facility] [place] [address] [id number] [place] [address] Jun, [facility] [address] [facility] [id number], [place] [address] Jun, [facility] [place] [address] [id number] [place] [id number] May, [facility] [place] [address] [id number] [place] [address] May, [facility] [address] [facility] [id number], [place] [address] May, [facility] [place] [address] [id number][place] [id number] Apr, [facility] [id number], [place] [address] Apr, [facility] [place] [address] [id number][place] [id number] Apr, [facility] [place] [address] [id number] [place] [id number] Apr, [facility] [address] [id number], [place] [address] Mar, [facility] [place] [address] [id number], [place] [id number] Mar, [facility] [place] [address] [id number][place] [id number] Mar, [facility] [place] [address] [id number][place] [id number] Feb, [facility] [address] [facility] [id number], [place] [address] Feb, [facility] [place] [address] [id number][place] [id number] Jan, [facility] [place] [address] [id number][place] [id number] Jan, [facility] [address] [id number], [place] [address] Jan, [facility] [address] [facility] [id number], [place] [address] Jan, [facility] [place] [address] [id number] [place] [address] Jan, [facility] [address] [facility] [id number], [place] [address] Jan, [facility] [place] [address] [id number], [place] [id number] Dec, [facility] [address] [facility] [id number], [place] [address] Dec, [facility] [place] [address] [id number] [place] [address] Dec, [facility] [address] [facility] [id number], [place] [address] Dec, [facility] [place] [address] [id number], [place] [id number] Dec, [facility] [place] [address] [id number] [place] [address] Nov, [facility] [place] [address] [id number] [place] [address] Nov, [facility] [place] [address] [id number] [place] [address] Oct, [facility] [place] [address] [id number] [place] [address]707[address] Oct, [facility] [place] [address] [id number] [place] [address] Sep, [facility] [place] [address] [id number] [place] [address] Sep, [facility] [place] [address] [id number] [place] [address] Sep, [facility] [place] [address] [id number] [place] Aug, [facility] [place] [address] [id number] [place] Aug, [facility] [place] [address] [id number] [place] [address] July, [facility] [place] [address] [id number] [place] [address]807 July, [facility] [place] [address] [id number] [place] [id number] July, [facility] [place] [address] [id number] [place] [address] July, [facility] [address] [facility] [id number], [place] 29[place]188[place] [address] Jun, [facility] [place] [address] [id number] [place] [address] Jun, [facility] [place] [address] [id number] [place] [address]120499[address] Jun, [facility] [place] [address] [id number] [place] 623905143 Jun, [facility] [place] [address] [id number] [place] [address]85[place] May, [facility] [place] [address] [id number] [place] [address]33[address] May, [facility] [place] [address] [id number] [place]85[place] Apr, [facility] [place] [address] [id number] [place] [address] Apr, [facility] [place] [address] [id number] [place] 6999980[address] Apr, [facility] [place] [address] [id number] [place] [address] Apr, [facility] [place] [address] [id number] [place] [address]40[address] Apr, [facility] [address] [facility] [id number], [place] [address]- [address] Apr, [facility] [place] [address] [id number] [id number] Apr, [facility] [place] [address] [id number], [place] [id number] Apr, [facility] [place] [address] [id number], [place] [address]87[place] Mar, [facility] [address] [id number] [place] [address]- 9646 Feb, [facility] [place] [facility] [address] [id number] [place] [address]- [address]386 Feb, [facility] [place] [facility] [address] [id number] [place] [address] Feb, [facility] [place] [facility] [address] [id number] [place] [address] Feb, [facility] [place] [facility] [address] [id number], [place] [address]- 5107 Jan, [facility] [place] [facility] [address] [id number] [place] [address]- 3525 Jan, [facility] [place] [facility] [address] [id number], [place] [address]- 1207 Jan, [facility] [place] [facility] [address] [id number], [place] [address]- 8693 Dec, [facility] [place] [facility] [address] [id number], [place] [address]- 3616 Dec, [facility] [place] [facility] [address] [id number], [place] [address]- [address] Aug, [facility] [place] [facility] [address] [id number], [place] [address]- [address]229 Aug, [facility] [place] [facility] [address] [id number] [place] [address]- 0208 Feb, [facility] [place] [facility] [address] [id number], [place] [address]- 9[address] Feb, [facility] [place] [facility] [address] [id number], [place] [address]- 1167 Jan, [facility] [place] [facility] [address] [facility] [id number] [place] [address]- [address]306 Jan, [facility] [address] [facility] [id number] [place] [address]- 8373 Dec, [facility] [address] [facility] [id number] [place] [address]- 8636 Dec, [facility] [address] [facility] [id number] [place] [address]- 0486 Dec, [facility] [address] [id number] [place] [address]- 7829 May, [facility] [address] [facility] [id number] [place] [address]- 1076 Mar, [facility] [address] [facility] [id number] [place] [address]- 2007 Feb, [facility] [address] [id number] [address]397 Feb, [facility] [address] [facility] [id number] [place] [address]- 6145 Feb, [facility] [address] [id number] [place] [address]- 9876 Jan, [facility] [address] [facility] [id number], [place] [address]- 8444 Jan, [facility] [address] [id number], [place] [address]- 5486 Oct, [facility] [address] [facility] [id number], [place] [address] 25[address] July, [facility] [address] [facility] [id number], [place] [address]- 8743 Apr, [facility] [address] [facility] [id number], [place] [address] 2541 Jan, [facility] [address] [facility] [id number], [place] [address]- [address] Jan, IMMUNIZATIONS No Known Immunizations SOCIAL HISTORY Never Assessed REASON FOR VISIT Controlled Med Refill PLAN OF CARE VITAL SIGNS MEDICATIONS Medication Instructions Dosage Frequency Start Date End Date Duration Status Hydrocodone-Acetaminophen 7.5-325 MG Orally every 4-6 hrs PRN 1 tablet Feb, 0 days Active RESULTS No Results PROCEDURES [...] Hospitalization History surgeries, childbirth Hospitalization History [facility]- Possible Stroke 05/16/2017
--- OUTSIDE RECORDS SUMMARY | 2017-09-20 06:40 | XMS REPORT ---
Author Author CATRACHITA MOLINA Organization [facility] Address [address] [place] [address] Care Team Providers Care Curtain Roller Assembler Name Role Phone CATRACHITA MOLINA Unavailable PROBLEMS Type Condition ICD9-CM Code QGP36-FL Code Onset Dates Condition Status SNOMED Code Problem RLS (restless legs syndrome) G25.81 Active 17988764 Problem Encounter for immunization Z23 Active 578838538 Problem Essential hypertension I10 Active 51135017 Problem Diabetes type 2, controlled E11.9 Active 89064687 Problem Diabetic polyneuropathy associated with type 2 diabetes mellitus E11.42 Active 42358108 Problem Other chronic pain G89.29 Active 41730663 Problem Hypoglycemia E16.2 Active 112948513 Problem Reactive depression F32.9 Active 69975881 Problem Type 2 diabetes mellitus with hyperglycemia E11.65 Active 335994103356709 Problem Spinal stenosis, unspecified spinal region M48.00 Active 68326736 Problem Type 2 diabetes mellitus with other specified complication E11.69 Active 99740735868986 Problem Hyperlipidemia, unspecified E78.5 Active 09293812 ALLERGIES No Information ENCOUNTERS Encounter Location Date Diagnosis [facility] [id number] [place] [address] [id number] July, [place] [id number] [place] [address] [id number] July, Diabetic polyneuropathy associated with type 2 diabetes mellitus E11.42 ; Type 2 diabetes mellitus with hyperglycemia E11.65 ; RLS (restless legs syndrome ) G25.81 and Essential hypertension I10 [place] [id number] [place] [address] [id number] July, Spinal stenosis, unspecified spinal region M48.00 [place] [id number] [id number] July, [place] [id number] [place] [address] [id number] Jun, Type 2 diabetes mellitus with other specified complication E11.69 [facility] [place] [id number] [phone] Jun, Spinal stenosis, unspecified spinal region M48.00 [facility] [place] [id number] [place] [address] [id number] 05 Jun, 2017 Hypoglycemia E16.2 [facility] [place] [address] [place] [id number] [place] [address] [id number] May, Hypoglycemia E16.2 ; Acute cystitis with hematuria N30.01 and Essential hypertension I10 [facility] [address]00565[address] [id number] May, [facility] [place] [address] [id number] [place] [address] [id number] May, Spinal stenosis, unspecified spinal region M48.00 [facility] [place] [address] [id number] [place] [address] [id number] May, Reactive depression F32.9 [facility] [place] [address] [id number] [place] [address] [id number] May, [facility] [place] [id number] [place] [address] [id number] Apr, [facility] [address] [id number][place] [id number] Apr, [facility] [address] [id number][place] [id number] Apr, [facility] [place] [id number] [id number] Apr, [facility] [place] [id number] [place] [address] [id number] Apr, Spinal stenosis, unspecified spinal region M48.00 [facility] [place] [address] [place] [place] [id number] [place] [address] [id number] 08 Apr, 2017 Type 2 diabetes mellitus with other specified complication E11.69 ; Spinal stenosis, unspecified spinal region M48.00 ; Reactive depression F32.9 and Essential hypertension I10 [facility] [address] [id number][place] [id number] Apr, [facility] [place] [address] [id number] [id number] Mar, Spinal stenosis, unspecified spinal region M48.00 [facility] [address] [id number][place] [id number] Feb, Acute non-recurrent maxillary sinusitis J01.00 and Essential hypertension I10 [facility] [id number] [place] [address] [id number] Feb, Spinal stenosis, unspecified spinal region M48.00 [facility] [address] [id number][place] [phone] Feb, Type 2 diabetes mellitus with other specified complication E11.69 [facility] [id number] [place] [address] [id number] Feb, Type 2 diabetes mellitus with other specified complication E11.69 and Essential hypertension I10 [facility] [id number] [place] [address] [id number] Feb, [facility] [address] [id number] [place] [address] [id number] Feb, [facility] [address] [id number] [place] [address] [id number] Jan, Spinal stenosis, unspecified spinal region M48.00 [facility] [id number] [place] [address] [id number] Jan, Diabetic polyneuropathy associated with type 2 diabetes mellitus E11.42 [facility] [address] [id number] [id number] Jan, Diabetic polyneuropathy associated with type 2 diabetes mellitus E11.42 [facility] [address] [id number], [place] [phone] Jan, Type 2 diabetes mellitus with hyperglycemia E11.65 ; Type 2 diabetes mellitus with other specified complication E11.69 ; Spinal stenosis, unspecified spinal region M48.00 and Essential hypertension I10 [facility] [id number] [place] [address] [id number] Jan, Diabetic polyneuropathy associated with type 2 diabetes mellitus E11.42 [facility] [address] [id number], [place] [id number] Dec, [facility] [address] [place] [id number] [place] [address] [id number] Dec, Diabetic polyneuropathy associated with type 2 diabetes mellitus E11.42 ; Type 2 diabetes mellitus with other specified complication E11.69 ; Hyperlipidemia, unspecified E78.5 ; Thyroid disorder E07.9 and Thyroid disorder screening Z13.29 [facility] [address] [place] [place] [id number] [place] [address] [id number] Dec, Diabetic polyneuropathy associated with type 2 diabetes mellitus E11.42 [facility] [address] [place] [id number] [place] [address] 648607- 6613 17 Dec, 2016 Diabetic polyneuropathy associated with type 2 diabetes mellitus E11.42 [facility] [address] [id number] [place] [address] [id number] Dec, Spinal stenosis, unspecified spinal region M48.00 [facility] [address] [id number] [place] [address] [id number] Dec, [facility] [address] [id number] [place] [address] [id number] 18 Nov, 2016 Diabetic polyneuropathy associated with type 2 diabetes mellitus E11.42 [facility] [address] [id number] [place] [address] [id number] 15 Nov, 2016 Other chronic pain G89.29 [facility] [address] [id number] [place] [address] [id number] 14 Nov, 2016 Spinal stenosis, unspecified spinal region M48.00 [facility] [address] [id number] [place] [address] [id number] Oct, Spinal stenosis, unspecified spinal region M48.00 ; Essential hypertension I10 ; RLS (restless legs syndrome) G25.81 and Diabetic polyneuropathy associated with type 2 diabetes mellitus E11.42 [facility] [id number] [place] [address] [id number] Oct, Spinal stenosis, unspecified spinal region M48.00 [facility] [id number] [place] [address] [id number] Sep, Diabetic polyneuropathy associated with type 2 diabetes mellitus E11.42 ; RLS (restless legs syndrome) G25.81 ; Spinal stenosis, unspecified spinal region M48.00 and Essential hypertension I10 [facility] [address] [id number] [place] [id number] 14 Sep, 2016 [facility] [address] [id number] [place] [id number] Sep, Spinal stenosis, unspecified spinal region M48.00 [facility] [address] [id number] [place] [id number] Sep, [facility] [address] [id number] [place] [id number] Aug, Spinal stenosis, unspecified spinal region M48.[address] [facility] [address] [address] July, [facility] [address] [place] [id number] [place] [address] [id number] July, Spinal stenosis, unspecified spinal region M48.00 [facility] [address] [place] [id number] [place] [address], [place] [id number] Jun, Type 2 diabetes mellitus with hyperglycemia E11.65 [facility] [address] [id number] [place] [address] [id number] Jun, Spinal stenosis, unspecified spinal region M48.00 [facility] [id number] [place] [address] [id number] May, Spinal stenosis, unspecified spinal region M48.00 [facility] [address] [place] [id number] [place] [address] [id number] Apr, Spinal stenosis, unspecified spinal region M48.[address] [facility] [address] [place] [id number] [place] [address] 57649- 7990 Mar, [facility] [address] [id number] [place] [address] [id number] Mar, Type 2 diabetes mellitus with hyperglycemia E11.65 ; RLS (restless legs syndrome) G25.81 and Spinal stenosis, unspecified spinal region M48.[address] [facility] [address] [address]- [address] Mar, [facility] [address] [facility] [id number] [id number] Mar, [facility] [place] [address] [place] [address] [id number], [place] [id number] Mar, [facility] [place] [address] [id number], [place] [id number] Feb, [facility] [address] [facility] [id number], [place] [address]- 2541 Feb, [facility] [place] [address] [id number], [place] [id number] Feb, [facility] [place] [address] [id number], [place] [phone] Feb, [facility] [address]00565100[place], [place] [address]- 2546 Feb, [facility] [address]00565100[place], [place] [address]- 2546 Feb, [facility] [address] [facility] [id number], [place] [id number] Jan, [facility] [place] [id number], [place] [id number] Dec, Diabetic polyneuropathy associated with type 2 diabetes mellitus E11.42 ; Other chronic pain G89.29 ; Essential hypertension I10 and Encounter for immunization Z23 [facility] [address] [id number], [place] [id number] Dec, [facility] [address] [facility] [id number], [place] [address]- 2546 Nov, [facility] [place] [address] [id number], [place] [id number] Nov, [facility] [place] [address] [id number], [place] [id number] Nov, Diabetes type 2, controlled E11.9 [facility] [place] [address] [id number], [place] [id number] Nov, Diabetes type 2, controlled E11.9 ; Other chronic pain G89.29 ; Essential hypertension I10 ; Diabetic polyneuropathy associated with type 2 diabetes mellitus E11.42 and RLS (restless legs syndrome) G25.81 [facility] [address] [facility] [id number] [place] [address] 12349- 6246 Nov, [facility] [place] [id number] [place] [address] [id number] Oct, [facility] [id number] [place] [address] [id number] Oct, [facility] [address] [id number] [place] [address] [id number] Oct, [facility] [address] [facility] [id number] [place] [address] 42597 2544 Oct, [facility] [address] [id number] [place] [address] [id number] Sep, [facility] [place] [id number] [place] [address] [id number] Sep, [facility] [address] [place] [id number] [place] [address] 09761- 1516 Sep, Dental examination Z01.20 [facility] [address] [place] [id number] [place] [address] 84420- 0713 Aug, [facility] [place] [address] [place] [id number] [place] [address] [id number] Aug, [facility] [address] [place] [id number] [place] [address] 12700- 2583 Aug, [facility] [address] [id number] [place] [address] 97355- 3276 July, [facility] [address] [place] [id number], [place] [address]- 3886 July, [facility] [address] [id number] [place] [address] 55404- 1207 July, [facility] [place] [address] [id number], [place] [id number] July, [facility] [place] [address] [place] [id number] [place] [address] [id number] July, [facility] [address] [id number], [place] [id number] July, [facility] [address]65100[place] 15067594- 5325 July, [facility] [address] [id number], [place] [id number] Jun, Diabetes type 2, controlled E11.9 [facility] [address] [id number] [place] [address] [id number] Jun, [facility] [address] [id number] [place] [address] [id number] May, Diabetes type 1, uncontrolled E10.65 [facility] [address] [id number] [place] [id number] May, [facility] [address] [id number], [place] [id number] Apr, [facility] [address] [id number] [place] [address] [id number] Apr, [facility] [address] [id number], [place] [id number] Mar, [facility] [address] [id number], [place] [id number] Mar, [facility] [address] [id number] [place] [address] [id number] Mar, [facility] [address] [id number], [place] [id number] Mar, Diabetes type 1, uncontrolled E10.65 [facility] [address] [id number], [place] [id number] Feb, [facility] [address] [id number], [place] [id number] Feb, [facility] [address] [id number], [place] [id number] Feb, [facility] [address] [facility] [id number] [facility] [place] [id number] Jan, [facility] [address] [id number], [place] [id number] Jan, Dysuria R30.0 and Acute cystitis with hematuria N30.01 [facility] [id number], [place] [id number] Jan, [facility] [address] [place] [id number] [place] [address] [id number] Dec, Gastroenteritis K52.9 and Headache, unspecified headache type R51 [facility] [id number] [place] [address] [id number] Dec, [facility] [id number] [place] [address] [id number] Dec, Chronic back pain 724.5 [facility] [address] [place] [address] [id number] Dec, [facility] [id number] [place] [address] [id number] Nov, Chronic back pain 724.5 and Diabetes mellitus without mention of complication, type II or unspecified type, uncontrolled 250.02 [facility] [id number], [place] [phone] Nov, [facility] [id number] [place] [address] [id number] Oct, [place] [id number] [place] [address] [id number] Sep, Diabetes mellitus without mention of complication, type II or unspecified type, uncontrolled 250.02 and Urinary tract infection 599.0 [facility] [address]00565100[place], [place] [id number] July, [facility] [address] [place] [address] 68420- 3396 Jun, [facility] [address] [place] [address] 87457- 9947 Jun, [id number] [place] [address] [id number] May, [facility] [address] [place] [address] 82319- 3208 May, [address] [place] [address] [id number] May, [facility] [place] [facility] [address] [id number] [place] [address]- 6072 May, [facility] [address] [id number] [place] [id number] Mar, [facility] [place] [facility] [address] [facility] [id number] [place] [address]- 4724 Mar, [facility] [place] [facility] [address] [facility] [id number] [place] [address]- 3606 Mar, [facility] [address] [id number] [place] [id number] Mar, [facility] [address] [id number] [place] [id number] Feb, [facility] [place] [facility] [address] [facility] [id number], [place] [address]- 1302 Feb, [facility] [address] [facility] [id number], [place] [id number] Feb, [facility] [place] [facility] [address] [facility] [id number][place] [address]- 9683 Feb, [facility] [place] [facility] [address] [facility] [id number][place] [address]- 2057 Feb, [facility] [address] [facility] [id number], [place] [id number] Feb, [facility] [address] [facility] [id number], [place] [id number] Feb, [facility] [place] [facility] [address] [facility] [id number], [place] [address]- 1086 Feb, [facility] [place] [facility] [address] [facility] [id number][place] [address]- 9530 Feb, [facility] [address] [facility] [id number], [place] [id number] Jan, [facility] [place] [facility] [address] [facility] [id number][place] [address]- 0582 Jan, [facility] [address] [id number], [place] [id number] Jan, [facility] [place] [facility] [address] [id number] [place] [address]- 2546 Jan, [facility] [address] [id number] [place] [id number] Dec, [facility] [place] [facility] [address] [facility] [id number] [place] [address]- 3616 Dec, [facility] [place] [facility] [address] [facility] [id number] [place] [address]- 7486 Dec, [facility] [place] [facility] [address] [facility] [id number] [place] [address]- 5916 Dec, [facility] [address] [facility] [id number] [phone] Dec, [facility] [place] [facility] [address] [facility] [id number], [place] [address] 2546 Dec, [facility] [address] [facility] [id number], [place] [id number] Nov, [facility] [place] [facility] [address] [facility] [id number][place] [address]- 4618 Nov, [facility] [address] [facility] [id number] [id number] Oct, [facility] [place] [facility] [address] [facility] [id number], [place] [address]- 5146 Oct, [facility] [place] [facility] [address] [facility] [id number][place] [address]- 2546 Sep, [facility] [address] [id number], [place] [id number] Sep, [facility] [address] [id number], [place] [id number] Aug, [facility] [place] [facility] [address] [facility] [id number] [place] [address]- 2546 Aug, [facility] [address] [id number], [place] [id number] July, [facility] [place] [facility] [address] [facility] [id number], [place] [address]- 0036 July, [facility] [address] [facility] [id number], [place] [id number] July, [facility] [place] [facility] [address] [id number], [place] [address] July, [facility] [address] [id number], [place] [address] July, [facility] [address] [facility] [id number], [place] [address] Jun, [facility] [address] [facility] [id number] [id number] Jun, [facility] [address] [facility] [id number][place] [id number] Jun, [facility] [id number], [place] [address] Jun, [facility] [address] [id number], [place] [address] Jun, [facility] [address] [id number], [place] [address] May, [facility] [address] [id number] [id number] Apr, [facility] [address] [id number], [place] [address] Apr, [facility] [address] [facility] [id number][place] [id number] Apr, [facility] [address] [facility] [id number], [place] [address] Apr, [facility] [address] [facility] [id number], [place] [address] Mar, [facility] [address] [id number], [place] [address] Mar, [facility] [address] [id number], [place] [address] Mar, [facility] [address] [id number][place] [id number] Mar, [facility] [address] [facility] [id number], [place] [address] Mar, [facility] [address] [facility] [id number], [place] [address] Mar, [facility] [address] [facility] [id number][place] [address] Feb, [facility] [address] [id number][place] [id number] Feb, [facility] [address] [facility] [id number], [place] [address] Feb, [facility] [address] [id number] [id number] Feb, [facility] [id number], [place] [address] Feb, [facility] [address] [id number][place] [id number] Feb, [facility] [id number], [place] [address] Feb, [facility] [address] [id number] [id number] Jan, [facility] [id number], [place] [address] Jan, [facility] [address] [facility] [id number], [place] [address] Dec, [facility] [address] [id number][place] [id number] Dec, [facility] [address] [facility] [id number], [place] [address] Nov, [facility] [address] [id number] [id number] Oct, [facility] [facility] [address] [id number] [place] [id number] Oct, [facility] [address] [id number] [place] [id number] Sep, [facility] [address] [id number] [place] [address] Sep, [facility] [place] [address] [id number] [place] [id number] Sep, [facility] [place] [address] [id number] [place] [id number] Sep, [facility] [place] [address] [id number] [place] [id number] Sep, [facility] [place] [address] [id number] [place] [id number] Sep, [facility] [place] [address] [id number] [place] [id number] Sep, [facility] [address] [address] Aug, [facility] [place] [address] [id number] [place] [id number] Aug, [facility] [address] [facility] [id number], [place] [address] July, [facility] [place] [address] [id number] [place] [id number] July, [facility] [address] [facility] [id number], [place] [address] July, [facility] [place] [address] [id number] [place] [id number] Jun, [facility] [place] [address] [id number] [place] [id number] Jun, [facility] [place] [address] [id number] [place] [address] Jun, [facility] [place] [facility] [address] [facility] [id number] [place] [address] Jun, [facility] [place] [address] [id number] [place] [id number] May, [facility] [place] [address] [id number] [place] [id number] May, [facility] [place] [facility] [address] [facility] [id number], [place] [address] May, [facility] [place] [address] [id number] [place] [id number] Apr, [facility] [place] [facility] [address] [facility] [id number], [place] [address] Apr, [facility] [place] [address] [id number] [place] [address] Apr, [facility] [place] [address] [id number] [place] [id number] Apr, [facility] [place] [facility] [address] [facility] [id number], [place] [address] Mar, [facility] [place] [address] [id number] [place] [id number] Mar, [facility] [place] [address] [id number] [place] [address] Mar, [facility] [place] [address] [id number] [place] [id number] Feb, [facility] [address], [place] [address] Feb, [facility] [place] [address] [id number] [place] [address] Jan, [facility] [place] [address] [facility] [id number] [id number] Jan, [facility] [place] [facility] [address] [facility] [id number], [place] [address] Jan, [facility] [place] [facility] [id number], [place] [address] Jan, [facility] [place] [address] [facility] [id number][place] [id number] Jan, [facility] [place] [facility] [address]65[address], [place] [address] Jan, [facility] [address] [id number] [place] [id number] Dec, [facility] [address] [id number], [place] [address]46 Dec, [facility] [address] [id number] [place] [id number] Dec, [facility] [address] [facility] [id number], [place] [address] Dec, [facility] [place] [address] [id number] [place] [id number] Dec, [facility] [place] [address] [id number] [place] [address] Nov, [facility] [place] [address] [id number] [place] [address] Nov, [facility] [address] [id number] [place] [id number] Oct, [facility] [place] [address] [id number] [place] [address] Oct, [facility] [place] [address] [id number] [place] [address] Sep, [facility] [place] [address] [id number] [place] Sep, [facility] [address] [id number] [place] [address] Sep, [facility] [place] [address] [id number] [place] [id number] Aug, [facility] [place] [address] [id number] [place] [address] Aug, [facility] [place] [address] [id number] [place] [address] July, [facility] [address] [id number] [place] [id number] July, [facility] [address] [id number] [place] [id number] July, [facility] [place] [address] [id number][place] [address] July, [facility] [address] [facility] [id number], [place] [address] Jun, [facility] [place] [address] [id number] [place] [id number] Jun, [facility] [place] [address] [id number] [place] [id number] Jun, [facility] [place] [address] [id number] [place] [id number] Jun, [facility] [place] [address] [id number] [place] [address] May, [facility] [place] [address] [id number] [place] [address] May, [facility] [place] [address] [id number] [place] [address] Apr, [facility] [place] [address] [id number] [place] [address] Apr, [facility] [place] [address] [id number] [place] [address] Apr, [facility] [place] [address] [id number] [place] [address] Apr, [facility] [place] [address] [id number] [place] [address] Apr, [facility] [id number] [address] Apr, [facility] [place] [address] [id number] [place] [address] Apr, [facility] [place] [address] [id number] [place] [address] Apr, [facility] [place] [id number] [id number] Mar, [facility] [id number] [place] [id number] Feb, [facility] [id number], [place] [address] Feb, [facility] [id number] [place] [address] Feb, [facility] [place] [facility] [address] [id number] [place] [address] 05 Feb, 2011 [facility] [place] [facility] [address] [id number] [place] [address]- [address] Jan, [facility] [place] [facility] [address] [facility] [id number] [place] [address]- [address] Jan, [facility] [place] [facility] [address] [id number] [place] [address]- [address] Jan, [facility] [place] [facility] [address] [id number] [place] [address]- [address] Dec, [facility] [place] [facility] [address] [id number] [place] [address]- [address] 24 Dec, 2010 [facility] [place] [facility] [address] [facility] [id number] [place] [address]- [address] Aug, [facility] [place] [facility] [address] [facility] [id number] [place] [address]- [address] Aug, [facility] [place] [facility] [address] [facility] [id number] [place] [address]- [address] Feb, [facility] [place] [facility] [address] [facility] [id number] [place] [address]- [address] Feb, [facility] [place] [facility] [address] [id number], [place] [address]- [address] Jan, [facility] [place] [facility] [address] [id number] [place] [address]- [address] Jan, [facility] [place] [facility] [address] [id number] [place] [address]- 7643 Dec, [facility] [place] [facility] [address] [facility] [id number] [place] [address]- 6164 Dec, [facility] [place] [facility] [address] [facility] [id number] [place] [address]- 8[address] Dec, [facility] [place] [facility] [id number], [place] [address] May, [facility] [id number], [place] [address] Mar, [facility] [id number], [place] [address] Feb, [facility] [id number], [place] [address] Feb, [facility] [id number], [place] [address] Feb, [facility] [id number], [place] [address]- [address] Jan, [facility] [id number], [place] [address]- [address] Jan, [facility] [id number], [place] [address]- [address] Oct, [facility] [id number], [place] [address]- [address] July, [facility] [id number], [place] [address]- [address] Apr, [facility] [id number], [place] [address]- [address] Jan, [facility] [id number], [place] [address] Jan, IMMUNIZATIONS No Known Immunizations SOCIAL HISTORY Never Assessed REASON FOR VISIT Request refill of Insulin PLAN OF CARE VITAL SIGNS MEDICATIONS Medication [...] Hospitalization History surgeries, childbirth Hospitalization History [facility]- Possible Stroke 05/16/2017
--- OUTSIDE RECORDS SUMMARY | 2017-09-20 06:41 | XMS REPORT ---
Author Author CATRACHTIA MOLINA Organization [facility] Address [address] [place] [address] Care Team Providers Care Retail Loan Originator Assistant Name Role Phone CATRACHITA MOLINA Unavailable PROBLEMS Type Condition ICD9-CM Code QLH15-JZ Code Onset Dates Condition Status SNOMED Code Problem RLS (restless legs syndrome) G25.81 Active 00394952 Problem Encounter for immunization Z23 Active 308469209 Problem Essential hypertension I10 Active 67389780 Problem Diabetes type 2, controlled E11.9 Active 49807811 Problem Diabetic polyneuropathy associated with type 2 diabetes mellitus E11.42 Active 19832188 Problem Other chronic pain G89.29 Active 08905264 Problem Hypoglycemia E16.2 Active 706792950 Problem Reactive depression F32.9 Active 63766500 Problem Type 2 diabetes mellitus with hyperglycemia E11.65 Active 573938070754414 Problem Spinal stenosis, unspecified spinal region M48.00 Active 56518799 Problem Type 2 diabetes mellitus with other specified complication E11.69 Active 40637340442112 Problem Hyperlipidemia, unspecified E78.5 Active 03730280 ALLERGIES No Information ENCOUNTERS Encounter Location Date Diagnosis [facility] [id number] [place] [address] [id number] July, [place] [id number] [place] [address] [id number] July, Diabetic polyneuropathy associated with type 2 diabetes mellitus E11.42 ; Type 2 diabetes mellitus with hyperglycemia E11.65 ; RLS (restless legs syndrome ) G25.81 and Essential hypertension I10 [place] [id number] [place] [address] [id number] July, Spinal stenosis, unspecified spinal region M48.00 [address]005[address] [id number] July, [place] [id number] [place] [address] [phone] Jun, Type 2 diabetes mellitus with other specified complication E11.69 [facility] [id number], [place] [id number] Jun, Spinal stenosis, unspecified spinal region M48.00 [facility] [id number] [place] [address] [id number] 05 Jun, 2017 Hypoglycemia E16.2 [facility] [address] [id number] [place] [address] [id number] May, Hypoglycemia E16.2 ; Acute cystitis with hematuria N30.01 and Essential hypertension I10 [facility] [address]00565100[place] [id number] May, [facility] [id number] [place] [address] [id number] May, Spinal stenosis, unspecified spinal region M48.00 [facility] [id number] [place] [address] [id number] May, Reactive depression F32.9 [facility] [id number] [place] [address] [id number] May, [facility] [id number] [place] [address] [id number] Apr, [facility] [address] [id number] [id number] Apr, [facility] [address] [address] [id number] [id number] Apr, [facility] [id number], [place] [id number] Apr, [facility] [id number] [place] [address] [id number] Apr, Spinal stenosis, unspecified spinal region M48.00 [facility] [id number] [place] [address] [id number] 08 Apr, 2017 Type 2 diabetes mellitus with other specified complication E11.69 ; Spinal stenosis, unspecified spinal region M48.00 ; Reactive depression F32.9 and Essential hypertension I10 [facility] [address] [id number] [phone] Apr, [facility] [address] [id number], [place] [id number] Mar, Spinal stenosis, unspecified spinal region M48.00 [facility] [address] [id number], [place] [id number] Feb, Acute non-recurrent maxillary sinusitis J01.00 and Essential hypertension I10 [facility] [id number] [place] [address] [id number] Feb, Spinal stenosis, unspecified spinal region M48.00 [facility] [address] [id number], [place] [phone] Feb, Type 2 diabetes mellitus with other specified complication E11.69 [facility] [id number] [place] [address] [id number] Feb, Type 2 diabetes mellitus with other specified complication E11.69 and Essential hypertension I10 [facility] [id number] [place] [address] [id number] Feb, [facility] [address] [id number] [place] [address] [id number] Feb, [facility] [address] [id number] [place] [address] [id number] Jan, Spinal stenosis, unspecified spinal region M48.00 [facility] [address] [id number] [place] [address] [id number] Jan, Diabetic polyneuropathy associated with type 2 diabetes mellitus E11.42 [facility] [address] [id number], [place] [phone] Jan, Diabetic polyneuropathy associated with type 2 diabetes mellitus E11.42 [facility] [address] [id number], [place] [id number] Jan, Type 2 diabetes mellitus with hyperglycemia E11.65 ; Type 2 diabetes mellitus with other specified complication E11.69 ; Spinal stenosis, unspecified spinal region M48.00 and Essential hypertension I10 [facility] [id number] [place] [address] [id number] Jan, Diabetic polyneuropathy associated with type 2 diabetes mellitus E11.42 [facility] [address] [id number], [place] [id number] Dec, [facility] [id number] [place] [address] [id number] Dec, Diabetic polyneuropathy associated with type 2 diabetes mellitus E11.42 ; Type 2 diabetes mellitus with other specified complication E11.69 ; Hyperlipidemia, unspecified E78.5 ; Thyroid disorder E07.9 and Thyroid disorder screening Z13.29 [facility] [id number] [place] [address] [id number] Dec, Diabetic polyneuropathy associated with type 2 diabetes mellitus E11.42 [facility] [id number] [place] [address] 843525- 0661 17 Dec, 2016 Diabetic polyneuropathy associated with type 2 diabetes mellitus E11.42 [facility] [id number] [place] [address] [id number] Dec, Spinal stenosis, unspecified spinal region M48.00 [facility] [id number] [place] [address] [id number] Dec, [facility] [id number] [place] [address] [id number] 18 Nov, 2016 Diabetic polyneuropathy associated with type 2 diabetes mellitus E11.42 [facility] [id number] [place] [address] [id number] 15 Nov, 2016 Other chronic pain G89.29 [facility] [id number] [place] [address] [id number] 14 Nov, 2016 Spinal stenosis, unspecified spinal region M48.00 [facility] [id number] [place] [address] [id number] Oct, Spinal stenosis, unspecified spinal region M48.00 ; Essential hypertension I10 ; RLS (restless legs syndrome) G25.81 and Diabetic polyneuropathy associated with type 2 diabetes mellitus E11.42 [facility] [id number] [place] [address] [id number] Oct, Spinal stenosis, unspecified spinal region M48.00 [facility] [id number] [place] [address] [id number] Sep, Diabetic polyneuropathy associated with type 2 diabetes mellitus E11.42 ; RLS (restless legs syndrome) G25.81 ; Spinal stenosis, unspecified spinal region M48.00 and Essential hypertension I10 [facility] [address] [id number] [place] [id number] 14 Sep, 2016 [facility] [address] [id number] [place] [id number] Sep, Spinal stenosis, unspecified spinal region M48.00 [facility] [address] [id number] [place] [id number] Sep, [facility] [address] [id number] [place] [id number] Aug, Spinal stenosis, unspecified spinal region M48.00 [facility] [address] [address] July, [facility] [address] [id number] [place] [address] [id number] July, Spinal stenosis, unspecified spinal region M48.00 [facility] [address] [place] [id number] [place] [address], [place] [id number] Jun, Type 2 diabetes mellitus with hyperglycemia E11.65 [facility] [id number] [place] [address] [id number] Jun, Spinal stenosis, unspecified spinal region M48.00 [facility] [address] [id number] [place] [address] [id number] May, Spinal stenosis, unspecified spinal region M48.00 [facility] [address] [id number] [place] [address] [id number] Apr, Spinal stenosis, unspecified spinal region M48.00 [facility] [address] [place] [id number] [place] [address] 83000- 1196 Mar, [facility] [id number] [place] [address] [id number] Mar, Type 2 diabetes mellitus with hyperglycemia E11.65 ; RLS (restless legs syndrome) G25.81 and Spinal stenosis, unspecified spinal region M48.00 [facility] [address] [address] Mar, [facility] [address] [facility] [id number], [place] [id number] Mar, [facility] [address] [place] [address] [id number] [id number] Mar, [facility] [address] [id number], [place] [id number] Feb, [facility] [address] [facility] [id number] [address]- 2547 Feb, [facility] [address] [id number], [place] [id number] Feb, [facility] [address] [id number], [place] [id number] Feb, [facility] [address]00565100[place] [address]- 25[address] Feb, [facility] [address]00565100[place] [address]- 2546 Feb, [facility] [address] [facility] [id number], [place] [id number] Jan, [facility] [id number], [place] [id number] Dec, Diabetic polyneuropathy associated with type 2 diabetes mellitus E11.42 ; Other chronic pain G89.29 ; Essential hypertension I10 and Encounter for immunization Z23 [facility] [address] [id number], [place] [phone] Dec, [facility] [address] [facility] [id number] [address]- 2546 Nov, [facility] [address] [id number], [place] [id number] Nov, [facility] [address] [id number], [place] [id number] Nov, Diabetes type 2, controlled E11.9 [facility] [address] [id number], [place] [id number] Nov, Diabetes type 2, controlled E11.9 ; Other chronic pain G89.29 ; Essential hypertension I10 ; Diabetic polyneuropathy associated with type 2 diabetes mellitus E11.42 and RLS (restless legs syndrome) G25.81 [facility] [address] [facility] [id number] [place] [address] 94680- 3582 Nov, [facility] [id number] [place] [address] [id number] Oct, [facility] [id number] [place] [address] [id number] Oct, [facility] [address] [id number] [place] [address] [id number] Oct, [facility] [address] [facility] [id number] [place] [address] 26835 2540 Oct, [facility] [address] [id number] [place] [address] [id number] Sep, [facility] [id number] [place] [address] [id number] Sep, [facility] [id number] [place] [address] 94084- 5403 Sep, Dental examination Z01.20 [facility] [address] [place] [id number] [place] [address] 80250- 9106 Aug, [facility] [id number] [place] [address] [id number] Aug, [facility] [id number] [place] [address] 65436- 7651 Aug, [facility] [id number] [place] [address] 50360- 8361 July, [facility] [address] [id number] [address]- 2044 July, [facility] [id number] [place] [address] 42039- 0823 July, [facility] [address] [id number], [place] [phone] July, [facility] [id number] [place] [address] [id number] July, [facility] [address] [id number], [place] [id number] July, [facility] [address]00565100[place] 8[place]- [address] July, [facility] [address] [id number], [place] [id number] Jun, Diabetes type 2, controlled E11.9 [facility] [id number] [place] [address] [id number] Jun, [facility] [address] [id number] [place] [address] [id number] May, Diabetes type 1, uncontrolled E10.65 [facility] [address] [id number] [place] [id number] May, [facility] [address] [id number], [place] [id number] Apr, [facility] [address] [id number] [place] [address] [id number] Apr, [facility] [address] [id number], [place] [id number] Mar, [facility] [address] [id number], [place] [id number] Mar, [facility] [address] [id number] [place] [address] [id number] Mar, [facility] [address] [id number], [place] [id number] Mar, Diabetes type 1, uncontrolled E10.65 [facility] [address] [id number], [place] [id number] Feb, [facility] [address] [id number], [place] [id number] Feb, [facility] [address] [id number], [place] [id number] Feb, [id number] [place] [id number] Jan, [facility] [address] [id number], [place] [id number] Jan, Dysuria R30.0 and Acute cystitis with hematuria N30.01 [facility] [id number], [place] [id number] Jan, [facility] [id number] [place] [address] [id number] Dec, Gastroenteritis K52.9 and Headache, unspecified headache type R51 [facility] [id number] [place] [address] [id number] Dec, [facility] [id number] [place] [address] [id number] Dec, Chronic back pain 724.5 [facility] [address] [place] [address] [id number] Dec, [facility] [id number] [place] [address] [id number] Nov, Chronic back pain 724.5 and Diabetes mellitus without mention of complication, type II or unspecified type, uncontrolled 250.02 [facility] [id number], [place] [id number] Nov, [facility] [id number] [place] [address] [id number] Oct, [place] [id number] [place] [address] [id number] Sep, Diabetes mellitus without mention of complication, type II or unspecified type, uncontrolled 250.02 and Urinary tract infection 599.0 [facility] [address]00565100[place], [place] [id number] July, [facility] [address] [place] [address] 15805- 8756 Jun, [facility] [address] [place] [address] 41294- 3368 Jun, [address] [place] [address] [id number] May, [facility] [address] [place] [address] 09867- 9273 May, [address] [place] [address] [id number] May, [facility] [place] [facility] [address] [id number] [place] [address]- 1586 May, [facility] [address] [id number] [place] [id number] Mar, [facility] [place] [facility] [address] [facility] [id number] [place] [address]- 9049 Mar, [facility] [place] [facility] [address] [facility] [id number] [place] [address]- 9017 Mar, [facility] [address] [id number] [place] [id number] Mar, [facility] [address] [id number] [place] [id number] Feb, [facility] [place] [facility] [address] [facility] [id number] [place] [address]- 7745 Feb, [facility] [address] [facility] [id number], [place] [id number] Feb, [facility] [place] [facility] [address] [facility] [id number] [place] [address]- 3574 Feb, [facility] [place] [facility] [address] [facility] [id number] [place] [address]- 3147 Feb, [facility] [address] [facility] [id number], [place] [id number] Feb, [facility] [address] [facility] [id number], [place] [id number] Feb, [facility] [place] [facility] [address] [facility] [id number] [place] [address]- 8678 Feb, [facility] [place] [facility] [address] [facility] [id number] [place] [address]- 5581 Feb, [facility] [address] [facility] [id number], [place] [id number] Jan, [facility] [place] [facility] [address] [facility] [id number] [place] [address]- 9524 Jan, [facility] [address] [id number], [place] [id number] Jan, [facility] [place] [facility] [address] [id number] [place] [address]- 2546 Jan, [facility] [address] [id number] [place] [id number] Dec, [facility] [place] [facility] [address] [facility] [id number] [place] [address]- 1716 Dec, [facility] [place] [facility] [address] [facility] [id number] [place] [address]- 8266 Dec, [facility] [place] [facility] [address] [facility] [id number] [place] [address]- 8513 Dec, [facility] [address] [facility] [id number], [place] [id number] Dec, [facility] [place] [facility] [address] [facility] [id number] [place] [address] 2546 Dec, [facility] [address] [facility] [id number], [place] [id number] Nov, [facility] [place] [facility] [address] [facility] [id number] [place] [address]- 8624 Nov, [facility] [address] [facility] [id number], [place] [id number] Oct, [facility] [place] [facility] [address] [facility] [id number] [place] [address]- 0406 Oct, [facility] [place] [facility] [address] [facility] [id number] [place] [address]- 2546 Sep, [facility] [address] [id number], [place] [id number] Sep, [facility] [address] [id number], [place] [id number] Aug, [facility] [place] [facility] [address] [facility] [id number] [place] [address]- 2546 Aug, [facility] [address] [id number], [place] [id number] July, [facility] [place] [facility] [address] [facility] [id number] [place] [address]- 0156 July, [facility] [address] [facility] [id number], [place] [id number] July, [facility] [place] [facility] [address] [id number] [address]- 0016 July, [facility] [place] [facility] [address] [id number] [address]- 0626 July, [facility] [place] [facility] [address] [facility] [id number] [place] [address]- 8776 Jun, [facility] [address] [facility] [id number][place] [id number] Jun, [facility] [address] [facility] [id number][place] [id number] Jun, [facility] [id number] [address] Jun, [facility] [address] [id number] [address] Jun, [facility] [address] [id number] [address] May, [facility] [address] [id number][place] [id number] Apr, [facility] [address] [id number] [address] Apr, [facility] [address] [facility] [id number][place] [id number] Apr, [facility] [address] [facility] [id number] [place] [address] Apr, [facility] [address] [facility] [id number] [place] [address] Mar, [facility] [address] [id number] [address] Mar, [facility] [address] [id number] [address] Mar, [facility] [address] [id number][place] [id number] Mar, [facility] [address] [facility] [id number] [place] [address] Mar, [facility] [address] [facility] [id number] [place] [address] Mar, [facility] [address] [facility] [id number] [place] [address] Feb, [facility] [address] [id number][place] [id number] Feb, [facility] [address] [facility] [id number] [place] [address] Feb, [facility] [address] [id number][place] [id number] Feb, [facility] [id number] [address] Feb, [facility] [address] [id number][place] [id number] Feb, [facility] [id number] [address] Feb, [facility] [address] [id number][place] [id number] Jan, [facility] [id number] [address] Jan, [facility] [address] [facility] [id number] [place] [address] Dec, [facility] [address] [id number][place] [id number] Dec, [facility] [address] [facility] [id number] [place] [address] Nov, [facility] [address] [id number][place] [id number] Oct, [facility] [address] [id number] [place] [id number] Oct, [facility] [address] [id number] [place] [id number] Sep[facility] [facility] [address] [id number] [place] [address] Sep, [facility] [place] [address] [id number] [place] [id number] Sep, [facility] [place] [address] [id number] [place] [id number] Sep, [facility] [place] [address] [id number] [place] [id number] Sep, [facility] [place] [address] [id number] [place] [id number] Sep, [facility] [place] [address] [id number] [place] [id number] Sep, [facility] [address]005[address] [address] Aug, [facility] [place] [address] [id number] [place] [id number] Aug, [facility] [address] [facility] [id number] [address] July, [facility] [place] [address] [id number] [place] [id number] July, [facility] [address] [facility] [id number] [place] [address] July, [facility] [place] [address] [id number] [place] [id number] Jun, [facility] [place] [address] [id number] [place] [address] Jun, [facility] [place] [address] [id number] [place] [id number] Jun, [facility] [place] [facility] [address] [facility] [id number] [place] [address] Jun, [facility] [place] [address] [id number] [place] [id number] May, [facility] [place] [address] [id number] [place] [id number] May, [facility] [place] [facility] [address] [facility] [id number] [place] [address] May, [facility] [place] [address] [id number] [place] [id number] Apr, [facility] [place] [facility] [address] [facility] [id number] [place] [address] Apr, [facility] [place] [address] [id number] [place] [id number] Apr, [facility] [place] [address] [id number] [place] [id number] Apr, [facility] [place] [facility] [address] [facility] [id number] [place] [address] Mar, [facility] [place] [address] [id number] [place] [id number] Mar, [facility] [place] [address] [id number] [place] [id number] Mar, [facility] [place] [address] [id number] [place] [id number] Feb, [facility] [address]00565100[place] [address] Feb, [facility] [place] [address] [id number] [place] [id number] Jan, [facility] [place] [address] [facility] [id number][place] [id number] Jan, [facility] [place] [facility] [address] [facility] [id number] [place] [address] Jan, [facility] [place] [facility] [address]00565100[place] [address] Jan, [facility] [place] [address] [facility] [id number][place] [id number] Jan, [facility] [place] [facility] [address]00565100[place] [address] Jan, [facility] [place] [address] [id number] [place] [id number] Dec, [facility] [address] [id number] [place] [address] Dec, [facility] [place] [address] [id number] [place] [id number] Dec, [facility] [address] [facility] [id number] [place] [address] Dec, [facility] [place] [address] [id number] [place] [id number] Dec, [facility] [place] [address] [id number] [place] [id number] Nov, [facility] [place] [address] [id number] [place] [id number] Nov, [facility] [place] [address] [id number] [place] [id number] Oct, [facility] [place] [address] [id number] [place] [id number] Oct, [facility] [place] [address] [id number] [place] [id number] Sep, [facility] [place] [address] [id number] [place] [id number] Sep, [facility] [place] [address] [id number] [place] [address] Sep, [facility] [place] [address] [id number] [place] [address] Aug, [facility] [place] [address] [id number] [place] [address] Aug, [facility] [place] [address] [id number] [place] [address]12[address] July, [facility] [place] [address] [id number] [place] [id number] July, [facility] [place] [address] [id number] [place] [id number] July, [facility] [place] [address] [id number][place] [id number] July, [facility] [address] [facility] [id number] [place] [address] Jun, [facility] [place] [address] [id number] [place] [id number] Jun, [facility] [place] [address] [id number] [place] [address]648 Jun, [facility] [place] [address] [id number] [place] [address] Jun, [facility] [place] [address] [id number] [place] [address] May, [facility] [place] [address] [id number] [place] [id number] May, [facility] [place] [address] [id number] [place] [id number] Apr, [facility] [place] [address] [id number] [place] [address] Apr, [facility] [place] [address] [id number] [place] [id number] Apr, [facility] [place] [address] [id number] [place] [address] Apr, [facility] [place] [address] [id number] [place] [id number] Apr, [facility] [address]00565100[place] [address] Apr, [facility] [place] [address] [id number] [place] [id number] Apr, [facility] [place] [address] [id number] [place] [id number] Apr, [facility] [place] [id number][place] [address]100[address] Mar, [facility] [id number] [place] [address] Feb, [facility] [address]00565100[place] [address] Feb, [facility] [id number] [place] [address] Feb, [facility] [place] [facility] [address] [id number] [place] [address] 05 Feb, 2011 [facility] [place] [facility] [address] [id number] [place] [address] Jan, [facility] [place] [facility] [address] [facility] [id number] [place] [address] Jan, [facility] [place] [facility] [address] [id number] [place] [address] Jan, [facility] [place] [facility] [address] [id number] [place] [address] Dec, [facility] [place] [facility] [address] [id number] [place] [address]- [address] 24 Dec, 2010 [facility] [place] [facility] [address] [facility] [id number] [place] [address] Aug, [facility] [place] [facility] [address] [facility] [id number] [place] [address]- [address] Aug, [facility] [place] [facility] [address] [facility] [id number] [place] [address]- [address] Feb, [facility] [place] [facility] [address] [facility] [id number] [place] [address]- [address] Feb, [facility] [place] [facility] [address] [id number] [address]- [address] Jan, [facility] [place] [facility] [address] [id number] [place] [address]- [address] Jan, [facility] [place] [facility] [address] [id number] [place] [address]- [address] Dec, [facility] [place] [facility] [address] [facility] [id number] [place] [address]- [address] Dec, [facility] [place] [facility] [address] [facility] [id number] [place] [address]- 29[address] Dec, [facility] [place] [facility] [address]00565100[place] [address] May, [facility] [address]00565100[place] [address] Mar, [facility] [address]00565100[place] [address] Feb, [facility] [address]00565100[place] [address] Feb, [facility] [address]00565100[place] [address] Feb, [facility] [address]00565100[place] [address] Jan, [facility] [address]00565100[place] [address]- [address] Jan, [facility] [address]00565100[place] [address]- [address] Oct, [facility] [address]00565100[place] [address] July, [facility] [address]65[address] [address] Apr, [facility] [address]00565100[place] [address]- [address] Jan, [facility] [address] [id number] [address] Jan, IMMUNIZATIONS No Known Immunizations SOCIAL HISTORY Never Assessed REASON FOR VISIT Insulin Request PLAN OF CARE VITAL SIGNS MEDICATIONS Unknown [...] History surgeries, childbirth Hospitalization History [facility]- Possible Stroke 05/16/2017
--- OUTSIDE RECORDS SUMMARY | 2017-09-20 06:42 | XMS REPORT ---
Author Author CATRACHITA MOLINA [facility] Address [address] [place] [address] Care Team Providers Care Engineer Station Mainline Name Role Phone CATRACHITA MOLINA Unavailable PROBLEMS Type Condition ICD9-CM Code MDL99-TI Code Onset Dates Condition Status SNOMED Code Problem RLS (restless legs syndrome) G25.81 Active 72419532 Problem Encounter for immunization Z23 Active 357561514 Problem Essential hypertension I10 Active 78619150 Problem Diabetes type 2, controlled E11.9 Active 28173889 Problem Diabetic polyneuropathy associated with type 2 diabetes mellitus E11.42 Active 85014135 Problem Other chronic pain G89.29 Active 64796988 Problem Hypoglycemia E16.2 Active 119536193 Problem Reactive depression F32.9 Active 28829039 Problem Type 2 diabetes mellitus with hyperglycemia E11.65 Active 573262743957457 Problem Spinal stenosis, unspecified spinal region M48.00 Active 76306394 Problem Type 2 diabetes mellitus with other specified complication E11.69 Active 35176859980247 Problem Hyperlipidemia, unspecified E78.5 Active 54400552 ALLERGIES No Known Allergies ENCOUNTERS Encounter Location Date Diagnosis [facility] [address] [facility] [id number] [address] Aug, [facility] [id number], [place] [id number] Aug, Spinal stenosis, unspecified spinal region M48.00 [facility] [id number], [place] [id number] Aug, Spinal stenosis, unspecified spinal region M48.00 [facility] [id number], [place] [address] July, [facility] [address] [id number][place] [id number] July, Diabetic polyneuropathy associated with type 2 diabetes mellitus E11.42 ; Type 2 diabetes mellitus with hyperglycemia E11.65 ; RLS (restless legs syndrome ) G25.81 and Essential hypertension I10 [facility] [id number], [place] [id number] July, Spinal stenosis, unspecified spinal region M48.00 [facility] [id number], [place] [id number] July, [facility] [id number] [place] [address] [id number] Jun, Type 2 diabetes mellitus with other specified complication E11.69 [facility] [id number] [place] [address] [id number] Jun, Spinal stenosis, unspecified spinal region M48.00 [facility] [id number] [place] [address] [id number] 05 Jun, 2017 Hypoglycemia E16.2 [facility] [id number] [place] [address] [id number] May, Hypoglycemia E16.2 ; Acute cystitis with hematuria N30.01 and Essential hypertension I10 [facility] [address]00565100[place], [place] [address] May, [facility] [id number] [place] [address] [id number] May, Spinal stenosis, unspecified spinal region M48.00 [facility] [id number], [place] [id number] May, Reactive depression F32.9 [facility] [id number], [place] [id number] May, [facility] [id number], [place] [id number] Apr, [facility] [address] [address] [id number], [place] [id number] Apr, [facility] [address] [address] [id number], [place] [phone] Apr, [facility] [id number], [place] [id number] Apr, [facility] [address] [id number] [id number] 14 Apr, 2017 Spinal stenosis, unspecified spinal region M48.00 [facility] [address] [id number], [place] [id number] Apr, Type 2 diabetes mellitus with other specified complication E11.69 ; Spinal stenosis, unspecified spinal region M48.00 ; Reactive depression F32.9 and Essential hypertension I10 [facility] [address] [id number], [place] [id number] Apr, [facility] [address] [id number], [place] [id number] Mar, Spinal stenosis, unspecified spinal region M48.00 [facility] [id number] [place] [address] [phone] Feb, Acute non-recurrent maxillary sinusitis J01.00 and Essential hypertension I10 [facility] [id number] [place] [address] [id number] Feb, Spinal stenosis, unspecified spinal region M48.00 [facility] [address] [id number], [place] [id number] Feb, Type 2 diabetes mellitus with other specified complication E11.69 [facility] [id number] [place] [address] [id number] Feb, Type 2 diabetes mellitus with other specified complication E11.69 and Essential hypertension I10 [facility] [address] [id number] [place] [address] [id number] Feb, [facility] [address] [id number] [place] [address] [id number] Feb, [facility] [address] [id number], [place] [id number] Jan, Spinal stenosis, unspecified spinal region M48.00 [facility] [id number] [place] [address] [phone] Jan, Diabetic polyneuropathy associated with type 2 diabetes mellitus E11.42 [facility] [address] [id number], [place] [id number] 14 Jan, 2017 Diabetic polyneuropathy associated with type 2 diabetes mellitus E11.42 [facility] [address] [id number], [place] [id number] Jan, Type 2 diabetes mellitus with hyperglycemia E11.65 ; Type 2 diabetes mellitus with other specified complication E11.69 ; Spinal stenosis, unspecified spinal region M48.00 and Essential hypertension I10 [facility] [id number], [place] [id number] Jan, Diabetic polyneuropathy associated with type 2 diabetes mellitus E11.42 [facility] [id number] [place] [address] [id number] Dec, [facility] [id number] [place] [address] [id number] Dec, Diabetic polyneuropathy associated with type 2 diabetes mellitus E11.42 ; Type 2 diabetes mellitus with other specified complication E11.69 ; Hyperlipidemia, unspecified E78.5 ; Thyroid disorder E07.9 and Thyroid disorder screening Z13.29 [facility] [id number], [place] [id number] Dec, Diabetic polyneuropathy associated with type 2 diabetes mellitus E11.42 [facility] [address]00565100[place], [place] [address] Dec, Diabetic polyneuropathy associated with type 2 diabetes mellitus E11.42 [facility] [id number] [place] [address] [id number] Dec, Spinal stenosis, unspecified spinal region M48.00 [facility] [id number], [place] [id number] Dec, [facility] [id number] [place] [address] [id number] 18 Nov, 2016 Diabetic polyneuropathy associated with type 2 diabetes mellitus E11.42 [facility] [id number], [place] [id number] 15 Nov, 2016 Other chronic pain G89.29 [facility] [id number] [place] [address] [id number] 14 Nov, 2016 Spinal stenosis, unspecified spinal region M48.00 [facility] [id number], [place] [id number] Oct, Spinal stenosis, unspecified spinal region M48.00 ; Essential hypertension I10 ; RLS (restless legs syndrome) G25.81 and Diabetic polyneuropathy associated with type 2 diabetes mellitus E11.42 [facility] [address] [id number] [place] [id number] Oct, Spinal stenosis, unspecified spinal region M48.00 [facility] [address] [id number] [place] [id number] Sep, Diabetic polyneuropathy associated with type 2 diabetes mellitus E11.42 ; RLS (restless legs syndrome) G25.81 ; Spinal stenosis, unspecified spinal region M48.00 and Essential hypertension I10 [facility] [address] [id number] [place] [id number] Sep, [facility] [address] [id number] [place] [id number] Sep, Spinal stenosis, unspecified spinal region M48.00 [facility] [address] [id number] [place] [id number] Sep, [facility] [address] [id number] [place] [address] [phone] Aug, Spinal stenosis, unspecified spinal region M48.00 [facility] [id number] [place] [address] July, [facility] [address] [id number] [place] [address] [id number] July, Spinal stenosis, unspecified spinal region M48.00 [facility] [address] [id number] [place] [address] [id number] Jun, Type 2 diabetes mellitus with hyperglycemia E11.65 [facility] [address] [id number] [place] [address] [id number] Jun, Spinal stenosis, unspecified spinal region M48.00 [facility] [address] [id number] [place] [address] [id number] May, Spinal stenosis, unspecified spinal region M48.00 [facility] [address] [id number] [place] [address] [id number] Apr, Spinal stenosis, unspecified spinal region M48.00 [facility] [address]00565100[place], [place] [address] Mar, [facility] [id number] [place] [address] [id number] Mar, Type 2 diabetes mellitus with hyperglycemia E11.65 ; RLS (restless legs syndrome) G25.81 and Spinal stenosis, unspecified spinal region M48.00 [facility] [address] [place] [address] 58[address] Mar, [facility] [id number], [place] [id number] Mar, [facility] [address]00565[address], [place] [id number] Mar, [facility] [id number] [place] [address] [id number] Feb, [facility] [id number] [place] [address] 57368- 2215 Feb, [facility] [id number] [place] [address] [id number] Feb, [facility] [id number] [place] [address] [id number] Feb, [facility] [id number] [place] [address] 81541 2546 Feb, [facility] [address] [place] [address] 65512 2544 Feb, [facility] [id number] [place] [address] [id number] Jan, [facility] [id number], [place] [id number] Dec, Diabetic polyneuropathy associated with type 2 diabetes mellitus E11.42 ; Other chronic pain G89.29 ; Essential hypertension I10 and Encounter for immunization Z23 [facility] [id number] [place] [address] [id number] Dec, [facility] [id number] [place] [address] 92143 2543 Nov, [facility] [address] [id number], [place] [id number] Nov, [facility] [address] [id number] [place] [id number] 15 Nov, 2015 Diabetes type 2, controlled E11.9 [facility] [address] [id number] [place] [id number] 14 Nov, 2015 Diabetes type 2, controlled E11.9 ; Other chronic pain G89.29 ; Essential hypertension I10 ; Diabetic polyneuropathy associated with type 2 diabetes mellitus E11.42 and RLS (restless legs syndrome) G25.81 [facility] [address] [facility] [id number][place] 79025913- [address] Nov, [facility] [address] [id number] [place] [address] [id number] Oct, [facility] [id number] [place] [address] [phone] Oct, [facility] [id number] [place] [address] [id number] Oct, [facility] [id number] [place] [address] 10983- 5381 Oct, [facility] [id number], [place] [id number] Sep, [facility] [id number], [place] [id number] Sep, [facility] [address]00565100[place], [place] [address] Sep, Dental examination Z01.20 [facility] [address]00565100[place], [place] [address] Aug, [facility] [id number], [place] [id number] Aug, [facility] [id number] [place] [address] 26057- 7738 Aug, [facility] [address] [id number], [place] [address]- [address] July, [facility] [address] [id number], [place] [address]- [address] July, [facility] [address] [facility] [id number], [place] [address]- [address] July, [facility] [address] [id number], [place] [id number] July, [facility] [address] [id number], [place] [id number] July, [facility] [address] [id number] [place] [address] [id number] July, [facility] [address] [facility] [id number], [place] [address]- [address] July, [facility] [address] [id number] [place] [address] [phone] Jun, Diabetes type 2, controlled E11.9 [facility] [id number] [place] [address] [id number] Jun, [facility] [address] [id number] [place] [address] [id number] May, Diabetes type 1, uncontrolled E10.65 [facility] [address] [id number] [place] [address] [id number] May, [facility] [address] [id number] [place] [address] [id number] Apr, [facility] [address] [id number], [place] [id number] Apr, [facility] [address] [id number], [place] [id number] Mar, [facility] [address] [id number], [place] [id number] Mar, [facility] [address] [id number] [place] [id number] Mar, [facility] [address] [id number], [place] [id number] Mar, Diabetes type 1, uncontrolled E10.65 [facility] [address] [id number], [place] [id number] Feb, [facility] [address] [id number], [place] [id number] Feb, [facility] [address] [id number], [place] [id number] Feb, [facility] [address] [facility] [id number], [place] [id number] Jan, [facility] [address] [facility] [id number], [place] [phone] Jan, Dysuria R30.0 and Acute cystitis with hematuria N30.01 [facility] [id number], [place] [id number] Jan, [facility] [id number] [place] [address] [phone] Dec, Gastroenteritis K52.9 and Headache, unspecified headache type R51 [facility] [id number], [place] [id number] Dec, [id number], [place] [id number] Dec, Chronic back pain 724.5 [facility] [address] [facility] [id number], [place] [phone] Dec, [facility] [id number] [place] [address] [id number] Nov, Chronic back pain 724.5 and Diabetes mellitus without mention of complication, type II or unspecified type, uncontrolled 250.02 [facility] [address] [facility] [id number], [place] [id number] Nov, [facility] [id number], [place] [id number] Oct, [facility] [address] [id number], [place] [id number] Sep, Diabetes mellitus without mention of complication, type II or unspecified type, uncontrolled 250.02 and Urinary tract infection 599.0 [facility] [address] [facility] [id number], [place] [phone] July, [facility] [address]00565100[place], [place] 56222836- 3940 Jun, [facility] [place] [facility] [address] [facility] [id number], [place] [address]- 8388 Jun, [facility] [address] [id number] [place] [id number] May, [facility] [place] [facility] [address] [facility] [id number], [place] [address]- 4206 May, [facility] [address] [facility] [id number] [place] [phone] May, [facility] [place] [facility] [address] [facility] [id number], [place] [address]- 4936 May, [facility] [address] [facility] [id number], [place] [id number] Mar, [facility] [place] [facility] [address] [facility] [id number], [place] [address]- 8978 Mar, [facility] [place] [facility] [address] [facility] [id number], [place] [address]- 5779 Mar, [facility] [address] [facility] [id number], [place] [id number] Mar, [facility] [address] [facility] [id number], [place] [id number] Feb, [facility] [place] [facility] [address] [facility] [id number], [place] [address]- 8161 Feb, [facility] [address] [facility] [id number], [place] [id number] Feb, [facility] [place] [facility] [address] [facility] [id number], [place] [address]- 1378 Feb, [facility] [place] [facility] [address] [facility] [id number], [place] [address]- 8120 Feb, [facility] [address] [id number], [place] [id number] Feb, [facility] [address] [facility] [id number], [place] [id number] Feb, [facility] [place] [facility] [address] [facility] [id number], [place] [address]- 6892 Feb, [facility] [place] [facility] [address] [id number] [place] [address]- 2546 Feb, [facility] [address] [id number] [place] [id number] Jan, [facility] [place] [facility] [address] [facility] [id number] [place] [address]- 2546 Jan, [facility] [address] [id number] [place] [id number] Jan, [facility] [place] [facility] [address] [id number] [place] [address]- 2546 Jan, [facility] [address] [facility] [id number] [place] [id number] Dec, [facility] [place] [facility] [address] [facility] [id number] [place] [address]- 2546 Dec, [facility] [place] [facility] [address] [id number] [place] [address]- 2546 Dec, [facility] [place] [facility] [address] [facility] [id number], [place] [address]- 2546 Dec, [facility] [address] [facility] [id number], [place] [id number] Dec, [facility] [place] [facility] [address] [facility] [id number], [place] [address]- 2546 Dec, [facility] [address] [facility] [id number], [place] [id number] Nov, [facility] [place] [facility] [address] [facility] [id number], [place] [address]- 2546 Nov, [facility] [address] [id number], [place] [id number] Oct, [facility] [place] [facility] [address] [facility] [id number], [place] [address]- 2546 Oct, [facility] [place] [facility] [address] [facility] [id number], [place] [address]- 2546 Sep, [facility] [address] [id number], [place] [id number] Sep, [facility] [address] [id number] [place] [id number] Aug, [facility] [place] [facility] [address] [id number] [place] [address]- 2546 Aug, [facility] [address] [facility] [id number] [place] [id number] July, [facility] [place] [facility] [address] [facility] [id number] [place] [address] 2546 July, [facility] [address] [id number] [place] [id number] July, [facility] [place] [facility] [address] [facility] [id number] [place] [address]- 4596 July, [facility] [place] [facility] [address] [id number] [place] [address]- 7196 July, [facility] [place] [facility] [address] [id number] [place] [address]- 8816 Jun, [facility] [address] [id number] [place] [id number] Jun, [facility] [address] [id number] [place] 010075708 Jun, [facility] [place] [facility] [address] [id number], [place] [address]- 8374 Jun, [facility] [place] [facility] [address]00565100[place], [place] [address]- 2646 Jun, [facility] [place] [facility] [address] [facility] [id number], [place] [address]- 2546 May, [facility] [address] [id number] [place] [id number] Apr, [facility] [place] [facility] [address] [facility] [id number] [place] [address] Apr, [facility] [address] [id number] [place] [id number] Apr, [facility] [place] [facility] [address] [id number] [place] [address] Apr, [facility] [address] [facility] [id number] [place] [address] Mar, [facility] [place] [facility] [address] [facility] [id number] [place] [address] Mar, [facility] [address] [facility] [id number] [place] [address] Mar, [facility] [address] [facility] [id number] [id number] Mar, [facility] [address] [facility] [id number] [place] [address] Mar, [facility] [place] [facility] [address] [facility] [id number] [place] [address] Mar, [facility] [address] [facility] [id number] [place] [address] Feb, [facility] [address] [facility] [id number][place] [id number] Feb, [facility] [address] [facility] [id number], [place] [address] Feb, [facility] [address] [facility] [id number][place] [id number] Feb, [facility] [address] [facility] [id number], [place] [address] Feb, [facility] [address] [facility] [id number][place] [id number] Feb, [facility] [address] [facility] [id number], [place] [address] Feb, [facility] [address] [facility] [id number][place] [id number] Jan, [facility] [place] [facility] [address] [facility] [facility] [place] [id number], [place] [address] Jan, [facility] [address] [facility] [place] [id number], [place] [address] Dec, [facility] [place] [address] [id number] [place] [id number] Dec, [facility] [address] [facility] [place] [id number], [place] [address] Nov, [facility] [place] [address] [id number] [place] [id number] Oct, [facility] [place] [address] [id number] [place] [id number] Oct, [facility] [place] [address] [id number] [place] [id number] Sep, [facility] [address] [facility] [place] [id number] [place] [address] Sep, [facility] [place] [address] [id number] [place] [id number] Sep, [facility] [place] [address] [id number] [place] [address] Sep, [facility] [address] [id number] [place] [id number] Sep, [facility] [place] [address] [id number] [place] [id number] Sep, [facility] [place] [address] [id number] [place] [id number] Sep, [facility] [address] [facility] [place] [id number], [place] [address] Aug, [facility] [place] [address] [id number] [place] [id number] Aug, [facility] [place] [facility] [address] [facility] [place] [id number], [place] [address] July, [facility] [place] [address] [id number] [place] [id number] July, [facility] [place] [facility] [address] [facility] [place] [id number] [place] [address] July, [facility] [place] [address] [id number] [place] [id number] Jun, [facility] [place] [address] [id number] [place] [id number] Jun, [facility] [place] [address] [id number] [place] [id number] Jun, [facility] [address] [facility] [place] [id number], [place] [address] Jun, [facility] [place] [address] [id number] [place] [id number] May, [facility] [place] [address] [id number][place] [id number] May, [facility] [address] [facility] [place] [id number], [place] [address] May, [facility] [place] [address] [id number], [place] [id number] Apr, [facility] [address]00565[address], [place] [address] Apr, [facility] [place] [address] [id number][place] [id number] Apr, [facility] [place] [address] [facility] [id number][place] [id number] Apr, [facility] [address]00565[address], [place] [address] Mar, [facility] [place] [address] [id number], [place] [id number] Mar, [facility] [place] [address] [id number], [place] [id number] Mar, [facility] [place] [address] [id number], [place] [id number] Feb, [facility] [address] [facility] [place] [id number], [place] [address] Feb, [facility] [place] [address] [facility] [id number], [place] [id number] Jan, [facility] [place] [address] [id number], [place] [id number] Jan, [facility] [address], [place] [address] Jan, [facility] [address] [id number], [place] [address] Jan, [facility] [address] [id number], [place] [id number] Jan, [facility] [address] [facility] [place] [id number], [place] [address] Jan, [facility] [address] [id number], [place] [id number] Dec, [facility] [address] [id number], [place] [address] Dec, [facility] [address] [id number], [place] [id number] Dec, [facility] [address] [facility] [place] [id number], [place] [address]87 Dec, [facility] [address] [id number][place] [id number] Dec, [facility] [place] [address] [id number], [place] [address] Nov, [facility] [address] [id number], [place] [id number] Nov, [facility] [address] [id number], [place] [address]77 Oct, [facility] [address] [id number], [place] [id number] Oct, [facility] [address] [id number], [place] 0929[address] Sep, [facility] [address] [id number] [place] [id number] Sep, [facility] [address] [id number] [place] 444894[address] Sep, [facility] [address] [id number] [place] [id number] Aug, [facility] [address] [id number], [place] [id number] Aug, [facility] [address] [id number] [place] [address] July, [facility] [address] [id number] [place] [id number] July, [facility] [place] [address] [id number] [place] [address]98[address]36[address] July, [facility] [place] [address] [id number] [place] [id number] July, [facility] [address] [facility] [place] [id number], [place] 34926396- [address]120 Jun, [facility] [place] [address] [id number] [place] [id number] Jun, [facility] [place] [address] [id number] [place] [address] Jun, [facility] [place] [address] [id number] [place] [address]34[address] Jun, [facility] [place] [address] [id number] [place] 284[address] May, [facility] [place] [address] [id number] [place] [id number] May, [facility] [place] [address] [id number] [place] [id number] Apr, [facility] [place] [address] [id number] [place] [id number] Apr, [facility] [place] [address] [id number] [place] Apr, [facility] [place] [address] [id number] [place] [id number] Apr, [facility] [place] [address] [id number] [place] 638761929 Apr, [facility] [address]65100[place], [place] [address] Apr, [facility] [place] [address] [id number] [place] [id number] Apr, [facility] [place] [address] [id number] [place] [id number] Apr, [facility] [place] [address] [id number], [place] [id number] Mar, [facility] [address] [id number] [place] [address] Feb, [facility] [address] [id number] [place] [address] Feb, [facility] [address] [id number] [place] [address] Feb, [facility] [address] [id number] [place]- [address] Feb, [facility] [place] [facility] [address] [id number] [place] [address]- 9646 Jan, [facility] [address] [id number] [place] [address] Jan, [facility] [place] [facility] [address] [id number] [place] [address]- 4758 Jan, [facility] [address] [id number] [place] [address]- 3598 Dec, [facility] [address] [id number] [place] [address]- 1457 Dec, [facility] [address] [id number] [place] [address]- 9843 Aug, [facility] [place] [facility] [address] [id number] [place] [address]- 8848 Aug, [facility] [place] [facility] [address] [id number] [place] [address]- 3075 Feb, [facility] [place] [facility] [address] [id number] [place] [address]- 0256 Feb, [facility] [place] [facility] [address] [id number] [place] [address] 2549 Jan, [facility] [place] [facility] [address] [id number] [place] [address]- 3881 Jan, [facility] [address] [facility] [place] [id number], [place] [address]- 118[address] Dec, [facility] [address] [facility] [place] [id number], [place] [address]- [address]136 Dec, [facility] [address] [facility] [place] [id number], [place] [address]- [address] Dec, [facility] [address] [facility] [place] [id number], [place] [address]- [address] May, [facility] [address] [facility] [place] [id number], [place] [address]- [address]38 Mar, [facility] [address] [facility] [place] [id number], [place] [address]- 1418 Feb, [facility] [address] [id number], [place] [address]- [address] Feb, [facility] [address] [facility] [place] [id number], [place] [address]- 4179 Feb, [facility] [address] [id number], [place] [address]- [address] Jan, [facility] [address] [id number], [place] [address]- [address]307 Jan, [facility] [address] [id number], [place] [address]- 6[address] Oct, [facility] [address] [facility] [place] [id number], [place] [address]- [address] July, [facility] [address] [facility] [place] [id number], [place] [address]- 0753 Apr, [facility] [address] [facility] [place] [id number], [place] [address]- 6626 Jan, [facility] [address] [id number], [place] [address] 2546 Jan, IMMUNIZATIONS No Known Immunizations SOCIAL HISTORY Never Assessed REASON FOR VISIT 1 month follow up diabetes, blood sugars still running high. catarino Prieto PLAN OF CARE Activity Details Follow Up 2 Months Reason:dm htm VITAL SIGNS Height 64 in 2017-02-07 Weight 186 lbs 2017-02-07 Temperature 98.1 degrees Fahrenheit 2017-02-07 Heart Rate 117 bpm 2017-02-07 Respiratory Rate 20 2017-02-07 BMI 31.92 kg/m2 2017-02-07 Blood pressure systolic 150 mmHg 2017-02-07 Blood pressure diastolic 80 mmHg 2017-02-07 MEDICATIONS Medication Instructions Dosage Frequency Start Date End Date Duration Status Losartan Potassium 25 MG Orally Once a day 1.5 tablet 24h Active Gabapentin 300 MG Orally 3 times a day 1 capsule 8h Active Hydrochlorothiazide 25 MG Orally Once a day 1 tablet 24h Active Insulin Syringe 31G X 16 as directed Feb, Active Victoza 18 MG/3ML Subcutaneous Once a day 1.8 mg 24h Active Pramipexole Dihydrochloride 0.5 MG Orally Once a day TAKE (2) TABLETS 2-3 HOURS BEFORE BEDTIME. 24h Active Levemir 100 UNIT/ML Subcutaneous 2 times a day 72 u am 68 u pm units 12h Jun, Active Glimepiride 2 MG Orally twice a day 2 tabs in am ,1 tab at pm with meal 12h Active Naproxen 500 mg Orally every 12 hrs 1 tablet with food or milk as needed 12h Jan, Active Amitriptyline HCl 100 mg Orally Once a day 1 tablet 24h Active NovoFine 32G X 6 MM subcutaneous 2 times a day DX 250.00 1 needle Nov Active Lovastatin 20 mg Orally Once a day 1 tablet with a meal 24h Active Calcium 600 MG Orally Once a day 1 tablet with meals 24h Active Aspirin Adult Low Strength 81 MG Orally Once a day 1 tablet 24h Active Metformin HCl 1000 MG Orally 2 times a day TAKE 1 TABLET BY MOUTH TWICE DAILY WITH MEALS... 12h Active Hydrocodone-Acetaminophen 7.5-325 MG Orally every 4-6 hrs PRN 1 tablet Jan, 30 days Active Poly-Iron 150 Forte 150-25-1 MG-MCG-MG Orally 2 times a day 1 capsule 12h Active RESULTS No Results PROCEDURES Procedure Date Ordered Result Body Site [facility] VISIT ESTABLISHED PATIENT Feb 07, 2017 INSTRUCTIONS MEDICATIONS ADMINISTERED No Known Medications MEDICAL [...] Hospitalization History surgeries, childbirth Hospitalization History ED [place]- Possible Stroke 05/16/2017
[2017-09-20] MEDS ORDERED: EPINEPHrine INJECTION 1 MG/ML AMP INJ ONE ×2 (06:45→07:00)
[2017-09-20] MEDS ORDERED: VANCOMYCIN/BSS (COMPOUNDED) 10 MG/ML SYR OP ONE (06:45)
[2017-09-20] MEDS ORDERED: TIMOLOL MALEATE 0.5% 5 ML (TIMOPTIC) BTL OU PRN (06:45)
[2017-09-20] MEDS ORDERED: POVIDONE (BETADINE) OPHTH SOLN 5% 30 ML OP ONE (06:45)
[2017-09-20] MEDS ORDERED: LIDOCAINE PF 1% 2 ML AMP IR PRN (06:45)
--- OUTSIDE RECORDS SUMMARY | 2017-09-20 06:46 | XMS REPORT ---
Author Author CATRACHITA MOLINA Organization [facility] Address [address] [place] [address] Care Team Providers Care Insurance Sales Executive Name Role Phone CATRACHITA MOLINA Unavailable PROBLEMS Type Condition ICD9-CM Code [id number] Code Onset Dates Condition Status SNOMED Code Problem RLS (restless legs syndrome) G25.81 Active 09791264 Problem Encounter for immunization Z23 Active 325705872 Problem Essential hypertension I10 Active 85265094 Problem Diabetes type 2, controlled E11.9 Active 87895402 Problem Diabetic polyneuropathy associated with type 2 diabetes mellitus E11.42 Active 21337019 Problem Other chronic pain G89.29 Active 46499484 Problem Hypoglycemia E16.2 Active 000838812 Problem Reactive depression F32.9 Active 34971388 Problem Type 2 diabetes mellitus with hyperglycemia E11.65 Active 112696919746793 Problem Spinal stenosis, unspecified spinal region M48.00 Active 07721804 Problem Type 2 diabetes mellitus with other specified complication E11.69 Active 03795609016645 Problem Hyperlipidemia, unspecified E78.5 Active 70192268 ALLERGIES No Information ENCOUNTERS Encounter Location Date Diagnosis [facility] [id number] [place] [address] [id number] July, [place] [id number] [place] [address] [id number] July, Diabetic polyneuropathy associated with type 2 diabetes mellitus E11.42 ; Type 2 diabetes mellitus with hyperglycemia E11.65 ; RLS (restless legs syndrome ) G25.81 and Essential hypertension I10 [address] [place] [address] [id number] July, Spinal stenosis, unspecified spinal region M48.00 [address] [id number] July, [place] [id number] [place] [address] [id number] Jun, Type 2 diabetes mellitus with other specified complication E11.69 [facility] [place] [id number][place] [phone] Jun, Spinal stenosis, unspecified spinal region M48.00 [facility] [place] [id number] [place] [address] [id number] 05 Jun, 2017 Hypoglycemia E16.2 [facility] [place] [address] [place] [id number] [place] [address] [id number] May, Hypoglycemia E16.2 ; Acute cystitis with hematuria N30.01 and Essential hypertension I10 [facility] [address]005[address] [address] May, [facility] [place] [id number] [place] [address] [id number] May, Spinal stenosis, unspecified spinal region M48.00 [facility] [place] [id number] [place] [address] [id number] May, Reactive depression F32.9 [facility] [place] [id number] [place] [address] [id number] May, [facility] [place] [id number] [place] [address] [id number] Apr, [facility] [address] [id number][place] [phone] Apr, [facility] [address] [id number], [place] [id number] Apr, [facility] [place] [id number], [place] [id number] Apr, [facility] [place] [id number] [place] [address] [id number] Apr, Spinal stenosis, unspecified spinal region M48.00 [facility] [place] [address] [id number] [place] [address] [id number] 08 Apr, 2017 Type 2 diabetes mellitus with other specified complication E11.69 ; Spinal stenosis, unspecified spinal region M48.00 ; Reactive depression F32.9 and Essential hypertension I10 [facility] [address] [id number], [place] [id number] Apr, [facility] [place] [address] [id number], [place] [id number] Mar, Spinal stenosis, unspecified spinal region M48.00 [facility] [place] [address] [id number], [place] [id number] Feb, Acute non-recurrent maxillary sinusitis J01.00 and Essential hypertension I10 [facility] [place] [id number] [place] [address] [id number] Feb, Spinal stenosis, unspecified spinal region M48.00 [facility] [place] [address] [id number], [place] [id number] Feb, Type 2 diabetes mellitus with other specified complication E11.69 [facility] [place] [id number] [place] [address] [id number] Feb, Type 2 diabetes mellitus with other specified complication E11.69 and Essential hypertension I10 [facility] [place] [id number] [place] [address] [id number] Feb, [facility] [place] [address] [id number] [place] [address] [id number] Feb, [facility] [place] [address] [id number] [place] [address] [id number] Jan, Spinal stenosis, unspecified spinal region M48.00 [facility] [place] [id number] [place] [address] [id number] Jan, Diabetic polyneuropathy associated with type 2 diabetes mellitus E11.42 [facility] [place] [address] [id number], [place] [id number] Jan, Diabetic polyneuropathy associated with type 2 diabetes mellitus E11.42 [facility] [place] [address] [id number], [place] [id number] Jan, Type 2 diabetes mellitus with hyperglycemia E11.65 ; Type 2 diabetes mellitus with other specified complication E11.69 ; Spinal stenosis, unspecified spinal region M48.00 and Essential hypertension I10 [facility] [place] [id number] [place] [address] [id number] Jan, Diabetic polyneuropathy associated with type 2 diabetes mellitus E11.42 [facility] [address] [id number], [place] [id number] Dec, [facility] [address] [address] [id number] [place] [address] [id number] Dec, Diabetic polyneuropathy associated with type 2 diabetes mellitus E11.42 ; Type 2 diabetes mellitus with other specified complication E11.69 ; Hyperlipidemia, unspecified E78.5 ; Thyroid disorder E07.9 and Thyroid disorder screening Z13.29 [facility] [address] [id number] [place] [address] [id number] Dec, Diabetic polyneuropathy associated with type 2 diabetes mellitus E11.42 [facility] [address] [place] [place] [id number] [place] [address] 080071- 9178 17 Dec, 2016 Diabetic polyneuropathy associated with type 2 diabetes mellitus E11.42 [facility] [id number] [place] [address] [id number] Dec, Spinal stenosis, unspecified spinal region M48.00 [facility] [address] [id number] [place] [address] [id number] Dec, [facility] [id number] [place] [address] [id number] 18 Nov, 2016 Diabetic polyneuropathy associated with type 2 diabetes mellitus E11.42 [facility] [id number] [place] [address] [id number] 15 Nov, 2016 Other chronic pain G89.29 [facility] [id number] [place] [address] [id number] 14 Nov, 2016 Spinal stenosis, unspecified spinal region M48.00 [facility] [id number] [place] [address] [id number] Oct, Spinal stenosis, unspecified spinal region M48.00 ; Essential hypertension I10 ; RLS (restless legs syndrome) G25.81 and Diabetic polyneuropathy associated with type 2 diabetes mellitus E11.42 [facility] [id number] [place] [address] [id number] Oct, Spinal stenosis, unspecified spinal region M48.00 [facility] [id number] [place] [address] [id number] Sep, Diabetic polyneuropathy associated with type 2 diabetes mellitus E11.42 ; RLS (restless legs syndrome) G25.81 ; Spinal stenosis, unspecified spinal region M48.00 and Essential hypertension I10 [facility] [address] [id number] [place] [id number] 14 Sep, 2016 [facility] [address] [id number] [place] [id number] Sep, Spinal stenosis, unspecified spinal region M48.00 [facility] [address] [id number] [place] [id number] Sep, [facility] [address] [id number] [place] [id number] Aug, Spinal stenosis, unspecified spinal region M48.00 [facility] [address] [address] July, [facility] [place] [address] [place] [id number] [place] [address] [id number] July, Spinal stenosis, unspecified spinal region M48.00 [facility] [place] [address] [place] [id number] [place] [address], [place] [id number] Jun, Type 2 diabetes mellitus with hyperglycemia E11.65 [facility] [place] [id number] [place] [address] [id number] Jun, Spinal stenosis, unspecified spinal region M48.00 [facility] [address] [id number] [place] [address] [id number] May, Spinal stenosis, unspecified spinal region M48.00 [facility] [place] [address] [place] [place] [id number] [place] [address] [id number] Apr, Spinal stenosis, unspecified spinal region M48.00 [facility] [address] [place] [id number] [place] [address] 16977- 2601 Mar, [facility] [id number] [place] [address] [id number] Mar, Type 2 diabetes mellitus with hyperglycemia E11.65 ; RLS (restless legs syndrome) G25.81 and Spinal stenosis, unspecified spinal region M48.00 [facility] [address] [address] Mar, [facility] [place] [address] [facility] [id number], [place] [phone] Mar, [facility] [place] [address] [place] [address] [id number], [place] [id number] Mar, [facility] [place] [address] [id number], [place] [id number] Feb, [facility] [address] [facility] [id number], [place] [address]- 254 Feb, [facility] [place] [address] [id number], [place] [phone] Feb, [facility] [place] [address] [id number], [place] [id number] Feb, [facility] [address]65100[place], [place] [address]- 25[address] Feb, [facility] [address]00565100[place], [place] [address]- 2546 Feb, [facility] [address] [facility] [id number], [place] [id number] Jan, [facility] [place] [id number], [place] [id number] Dec, Diabetic polyneuropathy associated with type 2 diabetes mellitus E11.42 ; Other chronic pain G89.29 ; Essential hypertension I10 and Encounter for immunization Z23 [facility] [address] [id number], [place] [id number] Dec, [facility] [address] [facility] [id number], [place] [address]- 2546 Nov, [facility] [place] [address] [id number], [place] [id number] Nov, [facility] [place] [address] [id number], [place] [id number] Nov, Diabetes type 2, controlled E11.9 [facility] [place] [address] [id number], [place] [id number] Nov, Diabetes type 2, controlled E11.9 ; Other chronic pain G89.29 ; Essential hypertension I10 ; Diabetic polyneuropathy associated with type 2 diabetes mellitus E11.42 and RLS (restless legs syndrome) G25.81 [facility] [address] [facility] [id number] [place] [address] 92045- 7429 Nov, [facility] [place] [id number] [place] [address] [id number] Oct, [facility] [place] [id number] [place] [address] [id number] Oct, [facility] [place] [id number] [place] [address] [id number] Oct, [facility] [address] [facility] [id number] [place] [address] 04186 2542 Oct, [facility] [place] [id number] [place] [address] [id number] Sep, [facility] [place] [id number] [place] [address] [id number] Sep, [facility] [address] [place] [place] [id number] [place] [address] 53675- 3166 Sep, Dental examination Z01.20 [facility] [address] [place] [id number] [place] [address] 17569- 3107 Aug, [facility] [place] [id number] [place] [address] [id number] Aug, [facility] [id number] [place] [address] 19492- 8631 Aug, [facility] [id number] [place] [address] 71286- 3676 July, [facility] [address] [id number], [place] [address]- 6660 July, [facility] [id number] [place] [address] 56329- 1950 July, [facility] [place] [address] [id number], [place] [id number] July, [facility] [place] [id number] [place] [address] [id number] July, [facility] [address] [id number], [place] [id number] July, [facility] [address]65100[place], [place] 85[address]- 3905 July, [facility] [address] [id number], [place] [phone] Jun, Diabetes type 2, controlled E11.9 [facility] [id number] [place] [address] [id number] Jun, [facility] [address] [id number] [place] [address] [id number] May, Diabetes type 1, uncontrolled E10.65 [facility] [address] [id number] [place] [phone] May, [facility] [address] [id number], [place] [id number] Apr, [facility] [address] [id number] [place] [address] [id number] Apr, [facility] [address] [id number], [place] [id number] Mar, [facility] [address] [id number], [place] [id number] Mar, [facility] [address] [id number] [place] [address] [id number] Mar, [facility] [address] [id number], [place] [id number] Mar, Diabetes type 1, uncontrolled E10.65 [facility] [address] [id number], [place] [id number] Feb, [facility] [address] [id number], [place] [id number] Feb, [facility] [address] [id number], [place] [id number] Feb, [facility] [address] [facility] [id number] [facility] [id number] Jan, [facility] [address] [id number], [place] [id number] Jan, Dysuria R30.0 and Acute cystitis with hematuria N30.01 [facility] [id number], [place] [id number] Jan, [facility] [id number] [place] [address] [id number] Dec, Gastroenteritis K52.9 and Headache, unspecified headache type R51 [facility] [id number] [place] [address] [id number] Dec, [facility] [id number] [place] [address] [id number] Dec, Chronic back pain 724.5 [facility] [address] [place] [address] [id number] Dec, [facility] [id number] [place] [address] [id number] Nov, Chronic back pain 724.5 and Diabetes mellitus without mention of complication, type II or unspecified type, uncontrolled 250.02 [facility] [id number], [place] [id number] Nov, [facility] [id number] [place] [address] [id number] Oct, [place] [id number] [place] [address] [id number] Sep, Diabetes mellitus without mention of complication, type II or unspecified type, uncontrolled 250.02 and Urinary tract infection 599.0 [facility] [address], [place] [id number] July, [facility] [address] [place] [address] 02581- 2506 Jun, [facility] [address] [place] [address] 91565- 0223 Jun, [id number] [place] [address] [id number] May, [facility] [address] [place] [address] 78150- 2857 May, [id number] [place] [address] [id number] May, [facility] [place] [facility] [address] [id number] [place] [address]- [address] May, [facility] [address] [id number] [place] [id number] Mar, [facility] [place] [facility] [address] [facility] [id number] [place] [address]- 0740 Mar, [facility] [place] [facility] [address] [facility] [id number] [place] [address]- 5179 Mar, [facility] [address] [id number] [place] [id number] Mar, [facility] [address] [id number] [place] [id number] Feb, [facility] [place] [facility] [address] [facility] [id number], [place] [address]- 7188 Feb, [facility] [address] [facility] [id number], [place] [id number] Feb, [facility] [place] [facility] [address] [facility] [id number], [place] [address]- 4044 Feb, [facility] [place] [facility] [address] [facility] [id number], [place] [address]- 6993 Feb, [facility] [address] [facility] [id number], [place] [id number] Feb, [facility] [address] [facility] [id number], [place] [id number] Feb, [facility] [place] [facility] [address] [facility] [id number], [place] [address]- 1931 Feb, [facility] [place] [facility] [address] [facility] [id number], [place] [address]- 0605 Feb, [facility] [address] [facility] [id number], [place] [id number] Jan, [facility] [place] [facility] [address] [facility] [id number], [place] [address]- 8833 Jan, [facility] [address] [id number], [place] [id number] Jan, [facility] [place] [facility] [address] [id number] [place] [address]- 2546 Jan, [facility] [address] [id number] [place] [id number] Dec, [facility] [place] [facility] [address] [facility] [id number] [place] [address]- 6576 Dec, [facility] [place] [facility] [address] [facility] [id number] [place] [address]- 3696 Dec, [facility] [place] [facility] [address] [facility] [id number] [place] [address]- 3622 Dec, [facility] [address] [facility] [id number], [place] [id number] Dec, [facility] [place] [facility] [address] [facility] [id number], [place] [address] 2546 Dec, [facility] [address] [facility] [id number], [place] [id number] Nov, [facility] [place] [facility] [address] [facility] [id number], [place] [address]- 5651 Nov, [facility] [address] [facility] [id number], [place] [id number] Oct, [facility] [place] [facility] [address] [facility] [id number], [place] [address]- 8486 Oct, [facility] [place] [facility] [address] [facility] [id number], [place] [address]- 2546 Sep, [facility] [address] [id number], [place] [id number] Sep, [facility] [address] [id number], [place] [id number] Aug, [facility] [place] [facility] [address] [facility] [id number] [place] [address]- 2546 Aug, [facility] [address] [id number], [place] [id number] July, [facility] [place] [facility] [address] [facility] [id number], [place] [address]- 8446 July, [facility] [address] [facility] [id number], [place] [id number] July, [facility] [place] [facility] [address] [id number], [place] [address]- 9826 July, [facility] [place] [facility] [address] [id number], [place] [address]- 3196 July, [facility] [place] [facility] [address] [facility] [id number], [place] [address]- 5096 Jun, [facility] [address] [facility] [id number], [place] [id number] Jun, [facility] [address] [facility] [id number], [place] [id number] Jun, [facility] [place] [facility] [address]00565100[place], [place] [address]- 7306 Jun, [facility] [place] [facility] [address] [id number], [place] [address]- 6766 Jun, [facility] [place] [facility] [address] [id number], [place] [address]- 3446 May, [facility] [address] [id number][place] [id number] Apr, [facility] [place] [facility] [address] [id number], [place] [address] Apr, [facility] [place] [address] [facility] [id number][place] [id number] Apr, [facility] [place] [facility] [address] [facility] [id number], [place] [address] Apr, [facility] [place] [facility] [address] [facility] [id number], [place] [address] Mar, [facility] [place] [facility] [address] [id number], [place] [address] Mar, [facility] [place] [facility] [address] [id number], [place] [address] Mar, [facility] [place] [address] [id number][place] [id number] Mar, [facility] [address] [facility] [id number], [place] [address] Mar, [facility] [address] [facility] [id number], [place] [address] Mar, [facility] [address] [facility] [id number], [place] [address] Feb, [facility] [place] [address] [id number][place] [id number] Feb, [facility] [address] [facility] [id number], [place] [address] Feb, [facility] [place] [address] [id number][place] [id number] Feb, [facility] [id number], [place] [address] Feb, [facility] [place] [address] [id number][place] [id number] Feb, [facility] [id number], [place] [address] Feb, [facility] [place] [address] [id number][place] [id number] Jan, [facility] [place] [facility] [id number], [place] [address] Jan, [facility] [place] [facility] [address] [facility] [id number], [place] [address] Dec, [facility] [place] [address] [id number], [place] [id number] Dec, [facility] [place] [facility] [address] [facility] [id number], [place] [address] Nov, [facility] [place] [address] [id number][place] [id number] Oct, [facility] [place] [address] [id number] [place] [id number] Oct, [facility] [place] [address] [id number] [place] [id number] Sep, [facility] [address] [id number] [place] [address] Sep, [facility] [place] [address] [id number] [place] [id number] Sep, [facility] [place] [address] [id number] [place] [id number] Sep, [facility] [place] [address] [id number] [place] [id number] Sep, [facility] [place] [address] [id number] [place] [id number] Sep, [facility] [place] [address] [id number] [place] [id number] Sep, [facility] [address] [id number] [address] Aug, [facility] [place] [address] [id number] [place] [id number] Aug, [facility] [address] [facility] [id number], [place] [address] July, [facility] [place] [address] [id number] [place] [id number] July, [facility] [address] [facility] [id number], [place] [address] July, [facility] [place] [address] [id number] [place] [id number] Jun, [facility] [place] [address] [id number] [place] [id number] Jun, [facility] [place] [address] [id number] [place] [id number] Jun, [facility] [place] [facility] [address] [facility] [id number] [place] [address] Jun, [facility] [place] [address] [id number] [place] [id number] May, [facility] [place] [address] [id number] [place] [id number] May, [facility] [place] [facility] [address] [facility] [id number], [place] [address] May, [facility] [place] [address] [id number] [place] [id number] Apr, [facility] [place] [facility] [address] [facility] [id number], [place] [address] Apr, [facility] [place] [address] [id number] [place] [id number] Apr, [facility] [place] [address] [id number] [place] [id number] Apr, [facility] [place] [facility] [address] [facility] [id number], [place] [address] Mar, [facility] [place] [address] [id number] [place] [id number] Mar, [facility] [place] [address] [id number] [place] [id number] Mar, [facility] [place] [address] [id number] [place] [id number] Feb, [facility] [address], [place] [address] Feb, [facility] [place] [address] [id number] [place] [id number] Jan, [facility] [place] [address] [facility] [id number] [id number] Jan, [facility] [place] [facility] [address] [facility] [id number], [place] [address] Jan, [facility] [place] [facility] [address], [place] [address] Jan, [facility] [place] [address] [facility] [id number][place] [id number] Jan, [facility] [place] [facility] [address], [place] [address] Jan, [facility] [place] [address] [id number] [place] [id number] Dec, [facility] [address] [id number], [place] [address] Dec, [facility] [place] [address] [id number] [place] [id number] Dec, [facility] [address] [facility] [id number], [place] [address] Dec, [facility] [place] [address] [id number] [place] [id number] Dec, [facility] [place] [address] [id number] [place] [id number] Nov, [facility] [place] [address] [id number] [place] [id number] Nov, [facility] [place] [address] [id number] [place] [id number] Oct, [facility] [place] [address] [id number] [place] [id number] Oct, [facility] [place] [address] [id number] [place] [id number] Sep, [facility] [place] [address] [id number] [place] [id number] Sep, [facility] [place] [address] [id number] [place] [id number] Sep, [facility] [place] [address] [id number] [place] [id number] Aug, [facility] [place] [address] [id number] [place] [id number] Aug, [facility] [place] [address] [id number] [place] [id number] July, [facility] [place] [address] [id number] [place] [id number] July, [facility] [place] [address] [id number] [place] [address] July, [facility] [place] [address] [id number][place] [id number] July, [facility] [address] [facility] [id number], [place] [address] Jun, [facility] [place] [address] [id number] [place] [id number] Jun, [facility] [place] [address] [id number] [place] [id number] Jun, [facility] [place] [address] [id number] [place] [id number] Jun, [facility] [place] [address] [id number] [place] [id number] May, [facility] [place] [address] [id number] [place] [id number] May, [facility] [place] [address] [id number] [place] [id number] Apr, [facility] [place] [address] [id number] [place] [id number] Apr, [facility] [place] [address] [id number] [place] [id number] Apr, [facility] [place] [address] [id number] [place] [id number] Apr, [facility] [place] [address] [id number] [place] [id number] Apr, [facility] [address] [address] Apr, [facility] [place] [address] [id number] [place] [id number] Apr, [facility] [place] [address] [id number] [place] [id number] Apr, [facility] [place] [id number] [id number] Mar, [facility] [facility] [id number] [place] [id number] Feb, [facility] [address], [place] [address] Feb, [facility] [id number] [place] [address] Feb, [facility] [place] [facility] [address] [id number] [place] [address]- [address] 05 Feb, 2011 [facility] [place] [facility] [address] [id number] [place] [address] Jan, [facility] [place] [facility] [address] [facility] [id number] [place] [address] Jan, [facility] [place] [facility] [address] [id number] [place] [address] Jan, [facility] [place] [facility] [address] [id number] [place] [address] Dec, [facility] [place] [facility] [address] [id number] [place] [address] 24 Dec, 2010 [facility] [place] [facility] [address] [facility] [id number] [place] [address] Aug, [facility] [place] [facility] [address] [facility] [id number] [place] [address] Aug, [facility] [place] [facility] [address] [facility] [id number] [place] [address]- [address] Feb, [facility] [place] [facility] [address] [facility] [id number] [place] [address]- [address] Feb, [facility] [place] [facility] [address] [id number], [place] [address] Jan, [facility] [place] [facility] [address] [id number] [place] [address] Jan, [facility] [place] [facility] [address] [id number] [place] [address]- [address] Dec, [facility] [place] [facility] [address] [facility] [id number] [place] [address]- [address] Dec, [facility] [place] [facility] [address] [facility] [id number] [place] [address]- [address] Dec, [facility] [place] [facility] [address], [place] [address] May, [facility] [address] [address] Mar, [facility] [address], [place] [address] Feb, [facility] [address], [place] [address] Feb, [facility] [address], [place] [address] Feb, [facility] [address], [place] [address] Jan, [facility] [address] Jan, [facility] [address], [place] [address] Oct, [facility] [address], [place] [address] July, [facility] [address], [place] [address] Apr, [facility] [address], [place] [address] Jan, [facility] [id number] Jan, IMMUNIZATIONS No Known Immunizations SOCIAL HISTORY Never Assessed REASON FOR VISIT Waiting for call back PLAN OF CARE VITAL SIGNS MEDICATIONS Unknown [...] History surgeries, childbirth Hospitalization History [facility] [place]- Possible Stroke 05/16/2017
--- OUTSIDE RECORDS SUMMARY | 2017-09-20 06:47 | XMS REPORT ---
Author Author CATRACHITA MOLINA Organization [facility] Address [address] [place] [address] Care Team Providers Care Trust Mail Clerk Name Role Phone CATRACHITA MOLINA Unavailable PROBLEMS Type Condition ICD9-CM Code QPD74-WP Code Onset Dates Condition Status SNOMED Code Problem RLS (restless legs syndrome) G25.81 Active 88377602 Problem Encounter for immunization Z23 Active 429968392 Problem Essential hypertension I10 Active 06490135 Problem Diabetes type 2, controlled E11.9 Active 38246253 Problem Diabetic polyneuropathy associated with type 2 diabetes mellitus E11.42 Active 37312879 Problem Other chronic pain G89.29 Active 13862803 Problem Hypoglycemia E16.2 Active 665729390 Problem Reactive depression F32.9 Active 55586308 Problem Type 2 diabetes mellitus with hyperglycemia E11.65 Active 237569762370268 Problem Spinal stenosis, unspecified spinal region M48.00 Active 30572582 Problem Type 2 diabetes mellitus with other specified complication E11.69 Active 45436431802360 Problem Hyperlipidemia, unspecified E78.5 Active 95529760 ALLERGIES No Information ENCOUNTERS Encounter Location Date Diagnosis [facility] [address] [facility] [id number] [place] [address] [phone] July, [place] [address] [id number] [place] [address] [phone] Jun, Type 2 diabetes mellitus with other specified complication E11.69 [facility] [address] [facility] [id number] [place] [address] [phone] Jun, Spinal stenosis, unspecified spinal region M48.00 [facility] [id number] [place] [address] [phone] Jun, Hypoglycemia E16.2 [place] [id number] [place] [address] [phone] May, Hypoglycemia E16.2 ; Acute cystitis with hematuria N30.01 and Essential hypertension I10 [facility] [address] [facility] [id number], [place] 19766533 [address] May, [facility] [id number], [place] 100080308 May, Spinal stenosis, unspecified spinal region M48.00 [facility] [id number], [place] [phone] May, Reactive depression F32.9 [facility] [address] [id number], [place] [phone] May, [facility] [id number], [place] [phone] Apr, [facility] [address] [id number], [place] [id number] Apr, [facility] [id number] [place] [address] [phone] Apr, [facility] [id number], [place] [id number] Apr, [facility] [id number] [place] [address] [phone] Apr, Spinal stenosis, unspecified spinal region M48.00 [facility] [id number], [place] [id number] Apr, Type 2 diabetes mellitus with other specified complication E11.69 ; Spinal stenosis, unspecified spinal region M48.00 ; Reactive depression F32.9 and Essential hypertension I10 [facility] [address] [id number], [place] [phone] Apr, [facility] [address] [facility] [id number], [place] [phone] Mar, Spinal stenosis, unspecified spinal region M48.00 [facility] [id number], [place] [phone] Feb, Acute non-recurrent maxillary sinusitis J01.00 and Essential hypertension I10 [facility] [id number], [place] 194025996 Feb, Spinal stenosis, unspecified spinal region M48.00 [facility] [address] [id number], [place] [phone] Feb, Type 2 diabetes mellitus with other specified complication E11.69 [facility] [id number] [place] [address] [phone] Feb, Type 2 diabetes mellitus with other specified complication E11.69 and Essential hypertension I10 [facility] [address] [id number] [place] [id number] Feb, [facility] [id number] [place] [address] [phone] Feb, [facility] [address] [id number] [place] [address] [phone] Jan, Spinal stenosis, unspecified spinal region M48.00 [facility] [address] [id number] [place] [address] [id number] Jan, Diabetic polyneuropathy associated with type 2 diabetes mellitus E11.42 [facility] [address] [id number] [place] [address] [id number] Jan, Diabetic polyneuropathy associated with type 2 diabetes mellitus E11.42 [facility] [address] [id number] [place] [address] [phone] Jan, Type 2 diabetes mellitus with hyperglycemia E11.65 ; Type 2 diabetes mellitus with other specified complication E11.69 ; Spinal stenosis, unspecified spinal region M48.00 and Essential hypertension I10 [facility] [address] [id number] [place] [address] [phone] Jan, Diabetic polyneuropathy associated with type 2 diabetes mellitus E11.42 [facility] [address] [id number] [place] [address] [id number] Dec, [facility] [address] [id number] [place] [address] [id number] Dec, Diabetic polyneuropathy associated with type 2 diabetes mellitus E11.42 ; Type 2 diabetes mellitus with other specified complication E11.69 ; Hyperlipidemia, unspecified E78.5 ; Thyroid disorder E07.9 and Thyroid disorder screening Z13.29 [facility] [address] [id number] [place] [address] [phone] Dec, Diabetic polyneuropathy associated with type 2 diabetes mellitus E11.42 [facility] [address] [place] [id number] 62737173[place] [address] Dec, Diabetic polyneuropathy associated with type 2 diabetes mellitus E11.42 [facility] [address] [id number], [place] [id number] Dec, Spinal stenosis, unspecified spinal region M48.00 [facility] [address] [id number], [place] [phone] Dec, [facility] [address] [id number] [place] [address] [id number] 18 Nov, 2016 Diabetic polyneuropathy associated with type 2 diabetes mellitus E11.42 [facility] [address] [id number] [place] [address] [phone] 15 Nov, 2016 Other chronic pain G89.29 [facility] [address] [id number], [place] [id number] 14 Nov, 2016 Spinal stenosis, unspecified spinal region M48.00 [facility] [address] [id number], [place] [phone] Oct, Spinal stenosis, unspecified spinal region M48.00 ; Essential hypertension I10 ; RLS (restless legs syndrome) G25.81 and Diabetic polyneuropathy associated with type 2 diabetes mellitus E11.42 [facility] [address] [id number], [place] [id number] Oct, Spinal stenosis, unspecified spinal region M48.00 [facility] [id number], [place] [id number] Sep, Diabetic polyneuropathy associated with type 2 diabetes mellitus E11.42 ; RLS (restless legs syndrome) G25.81 ; Spinal stenosis, unspecified spinal region M48.00 and Essential hypertension I10 [facility] [address] [id number], [place] [id number] Sep, [facility] [address] [id number], [place] [id number] Sep, Spinal stenosis, unspecified spinal region M48.00 [facility] [address] [id number], [place] [phone] Sep, [facility] [id number], [place] [phone] Aug, Spinal stenosis, unspecified spinal region M48.00 [facility] [address] [place] [id number], [place] [address] July, [facility] [address] [id number], [place] [phone] July, Spinal stenosis, unspecified spinal region M48.00 [facility] [id number] [place] [address] [id number] Jun, Type 2 diabetes mellitus with hyperglycemia E11.65 [facility] [id number] [place] [address] [id number] Jun, Spinal stenosis, unspecified spinal region M48.00 [facility] [id number] [place] [address] [id number] May, Spinal stenosis, unspecified spinal region M48.00 [facility] [id number] [place] [address] [phone] Apr, Spinal stenosis, unspecified spinal region M48.00 [facility] [address]00565100[place], [place] [address] 2546 Mar, [facility] [id number] [place] [address] [phone] Mar, Type 2 diabetes mellitus with hyperglycemia E11.65 ; RLS (restless legs syndrome) G25.81 and Spinal stenosis, unspecified spinal region M48.00 [facility] [address]00565100[place], [place] [address] 2546 Mar, [facility] [address] [facility] [id number], [place] [id number] Mar, [facility] [id number], [place] [id number] Mar, [facility] [address] [facility] [id number], [place] [id number] Feb, [facility] [address]00565100[place], [place] [address]- [address] Feb, [facility] [id number], [place] [phone] Feb, [facility] [address] [facility] [id number], [place] [phone] Feb, [facility] [address] [place] [id number] [place] [address] 2546 Feb, [facility] [address] [place] [id number] [place] [address] 67164- 2546 Feb, [facility] [address] [place] [address] [id number] [place] [address] [phone] Jan, [facility] [address] [id number] [place] [address] [phone] Dec, Diabetic polyneuropathy associated with type 2 diabetes mellitus E11.42 ; Other chronic pain G89.29 ; Essential hypertension I10 and Encounter for immunization Z23 [facility] [address] [id number], [place] [phone] Dec, [facility] [address] [place] [id number] [place] [address] 36594 2546 Nov, [facility] [id number], [place] [id number] Nov, [facility] [address] [place] [id number] [place] [address] [phone] Nov, Diabetes type 2, controlled E11.9 [facility] [id number], [place] [id number] Nov, Diabetes type 2, controlled E11.9 ; Other chronic pain G89.29 ; Essential hypertension I10 ; Diabetic polyneuropathy associated with type 2 diabetes mellitus E11.42 and RLS (restless legs syndrome) G25.81 [facility] [address]00565100[place], [place] [address]- 2546 Nov, [facility] [id number] [place] [address] [id number] Oct, [facility] [id number] [place] [address] [phone] Oct, [facility] [address] [id number] [place] [address] [id number] Oct, [facility] [address] [facility] [id number], [place] [address]- [address] Oct, [facility] [address] [id number], [place] [phone] Sep, [facility] [address] [id number], [place] [id number] Sep, [facility] [address] [facility] [id number], [place] 52210383- 4587 Sep, Dental examination Z01.20 [facility] [address] [id number], [place] [address]- 9[address] Aug, [facility] [address] [id number], [place] [id number] Aug, [facility] [address] [facility] [id number], [place] 661409- 5120 Aug, [facility] [address] [facility] [id number], [place] [address]- 7333 July, [facility] [address] [facility] [id number], [place] 339401- 9903 July, [facility] [address] [facility] [id number], [place] 014666- 9708 July, [facility] [address] [id number], [place] [phone] July, [facility] [address] [id number], [place] [id number] July, [facility] [address] [id number], [place] [id number] July, [facility] [address] [id number], [place] [address]- 25[address] July, [facility] [address] [id number], [place] [id number] Jun, Diabetes type 2, controlled E11.9 [facility] [address] [id number], [place] [phone] Jun, [facility] [address] [id number], [place] [id number] May, Diabetes type 1, uncontrolled E10.65 [facility] [address] [id number], [place] [id number] May, [facility] [address] [id number], [place] [id number] Apr, [facility] [id number] [place] [address] [id number] Apr, [facility] [address] [id number] [place] [address] [id number] Mar, [facility] [address] [id number] [place] [address] [id number] Mar, [facility] [address] [id number] [place] [address] [id number] Mar, [facility] [address] [id number] [place] [address] [id number] Mar, Diabetes type 1, uncontrolled E10.65 [facility] [address] [id number] [place] [address] [id number] Feb, [facility] [address] [id number], [place] [id number] Feb, [facility] [address] [id number] [place] [address] [id number] Feb, [facility] [address] [id number], [place] [id number] Jan, [facility] [address] [id number], [place] 545830050 Jan, Dysuria R30.0 and Acute cystitis with hematuria N30.01 [facility] [address] [id number], [place] [id number] Jan, [facility] [address] [id number], [place] [phone] Dec, Gastroenteritis K52.9 and Headache, unspecified headache type R51 [facility] [address] [id number], [place] 937593529 Dec, [facility] [id number] [place] [address] [id number] Dec, Chronic back pain 724.5 [facility] [address] [id number] [phone] Dec, [facility] [id number], [place] [id number] Nov, Chronic back pain 724.5 and Diabetes mellitus without mention of complication, type II or unspecified type, uncontrolled 250.02 [facility] [id number], [place] [id number] Nov, [facility] [id number] [place] [address] [id number] Oct, [facility] [id number], [place] 519463492 Sep, Diabetes mellitus without mention of complication, type II or unspecified type, uncontrolled 250.02 and Urinary tract infection 599.0 [facility] [id number], [place] [phone] July, [facility] [address] [place] [address] 96040- 2546 Jun, [facility] [id number] [place] [address] 28050- 2546 Jun, [facility] [id number], [place] [id number] May, [facility] [address] [place] [address] 11219- 2546 May, [facility] [id number], [place] [id number] May, [facility] [address] [place] [address] 04922- 2546 May, [facility] [id number], [place] [id number] Mar, [facility] [id number] [place] [address] 82809- 2546 Mar, [facility] [id number] [place] [address] 43217 2546 Mar, [facility] [address] [id number] [place] [id number] Mar, [facility] [address] [id number] [place] [id number] Feb, [facility] [place] [facility] [address] [facility] [id number] [place] [address]- 7305 Feb, [facility] [address] [facility] [id number] [place] 744702581 Feb, [facility] [place] [facility] [address] [facility] [id number], [place] [address]- 2118 Feb, [facility] [place] [facility] [address] [facility] [id number], [place] [address]- 7804 Feb, [facility] [address] [facility] [id number] [place] [id number] Feb, [facility] [address] [facility] [id number], [place] [id number] Feb, [facility] [place] [facility] [address] [facility] [id number], [place] [address]- 4440 Feb, [facility] [place] [facility] [address] [facility] [id number], [place] 859759- 3794 Feb, [facility] [address] [facility] [id number], [place] [id number] Jan, [facility] [place] [facility] [address] [facility] [id number], [place] [address]- 8766 Jan, [facility] [address] [facility] [id number], [place] [id number] Jan, [facility] [place] [facility] [address] [facility] [id number], [place] [address]- 6927 Jan, [facility] [address] [facility] [id number], [place] [id number] Dec, [facility] [place] [facility] [address] [facility] [id number], [place] [address]- 0852 Dec, [facility] [place] [facility] [address] [facility] [id number], [place] [address]- 1608 Dec, [facility] [place] [facility] [address] [id number] [place] [address]- 1336 Dec, [facility] [address] [id number] [place] [id number] Dec, [facility] [place] [facility] [address] [facility] [id number] [place] [address]- 2546 Dec, [facility] [address] [id number] [place] [id number] Nov, [facility] [place] [facility] [address] [id number] [place] [address]- 2426 Nov, [facility] [address] [id number] [place] [id number] Oct, [facility] [place] [facility] [address] [facility] [id number] [place] [address]- 2606 Oct, [facility] [place] [facility] [address] [facility] [id number] [place] [address]- 5916 Sep, [facility] [address] [id number] [place] [id number] Sep, [facility] [address] [id number] [place] [id number] Aug, [facility] [place] [facility] [address] [facility] [id number], [place] [address]- 3546 Aug, [facility] [address] [facility] [id number], [place] [id number] July, [facility] [place] [facility] [address] [facility] [id number][place] [address]- 1596 July, [facility] [address] [facility] [id number] [place] [id number] July, [facility] [place] [facility] [address] [facility] [id number], [place] [address]- 4686 July, [facility] [place] [facility] [address] [facility] [id number], [place] [address]- 9836 July, [facility] [place] [facility] [address] [facility] [id number], [place] [address]- 2546 Jun, [facility] [address] [id number] [place] [id number] Jun, [facility] [address] [facility] [id number] [place] [id number] Jun, [facility] [place] [facility] [address] [id number] [place] [address]- 7726 Jun, [facility] [place] [facility] [address] [facility] [id number] [place] [address] Jun, [facility] [place] [facility] [address] [id number] [place] [address] May, [facility] [address] [facility] [id number] [place] [id number] Apr, [facility] [place] [facility] [address] [facility] [id number] [place] [address] Apr, [facility] [address] [facility] [id number] [place] [id number] Apr, [facility] [place] [facility] [address] [facility] [id number] [place] [address] Apr, [facility] [place] [facility] [address] [facility] [id number], [place] [address] Mar, [facility] [place] [facility] [address] [facility] [id number] [place] [address] Mar, [facility] [place] [facility] [address] [facility] [id number], [place] [address] Mar, [facility] [address] [facility] [id number] [place] [id number] Mar, [facility] [place] [facility] [address] [facility] [id number] [place] [address] Mar, [facility] [place] [facility] [address] [facility] [id number] [place] [address] Mar, [facility] [place] [facility] [address] [facility] [id number] [place] [address] Feb, [facility] [address] [id number] [place] [id number] Feb, [facility] [address] [facility] [id number], [place] [address] Feb, [facility] [address] [id number][place] [id number] Feb, [facility] [address] [facility] [id number], [place] [address] Feb, [facility] [address] [id number][place] [id number] Feb, [facility] [address] [facility] [id number], [place] [address] Feb, [facility] [address] [id number][place] [id number] Jan, [facility] [id number], [place] [address] Jan, [facility] [address] [facility] [id number], [place] [address] Dec, [facility] [address] [id number][place] [id number] Dec, [facility] [address] [facility] [id number], [place] [address] Nov, [facility] [address] [id number][place] [id number] Oct, [facility] [address] [id number][place] [id number] Oct, [facility] [address] [id number][place] [id number] Sep, [facility] [address] [facility] [id number], [place] [address] Sep, [facility] [facility] [address] [id number] [id number] Sep, [facility] [address] [id number][place] [id number] Sep, [facility] [place] [address] [id number] [place] [id number] Sep, [facility] [place] [address] [id number] [place] [address] Sep, [facility] [place] [address] [id number] [place] [id number] Sep, [facility] [address] [facility] [id number], [place] [address] Aug, [facility] [place] [address] [id number] [place] [id number] Aug, [facility] [address] [facility] [id number], [place] [address] July, [facility] [place] [address] [id number] [place] [id number] July, [facility] [address], [place] [address] July, [facility] [place] [address] [id number] [place] [id number] Jun, [facility] [place] [address] [id number] [place] [id number] Jun, [facility] [place] [address] [id number] [place] [id number] Jun, [facility] [address] [facility] [id number], [place] [address] Jun, [facility] [place] [address] [id number] [place] [id number] May, [facility] [place] [address] [id number] [place] [address] May, [facility] [address] [facility] [id number], [place] [address] May, [facility] [place] [address] [id number] [place] [id number] Apr, [facility] [address] [facility] [id number], [place] [address] Apr, [facility] [place] [address] [id number] [place] [id number] Apr, [facility] [place] [address] [id number] [place] [address] Apr, [facility] [place] [facility] [address] [facility] [id number], [place] [address] Mar, [facility] [place] [address] [id number] [place] [id number] Mar, [facility] [address] [id number] [place] [id number] Mar, [facility] [place] [address] [id number] [place] [address] Feb, [facility] [place] [facility] [address] [facility] [id number][place] [address] Feb, [facility] [place] [address] [id number], [place] [id number] Jan, [facility] [place] [address] [facility] [id number], [place] [address]80786754 Jan, [facility] [place] [facility] [address], [place] [address] Jan, [facility] [place] [facility] [id number] [place] [address] Jan, [facility] [address] [facility] [id number], [place] [id number] Jan, [facility] [place] [facility] [address] [facility] [id number], [place] 85[address]338- [address] Jan, [facility] [address] [facility] [id number], [place] [id number] Dec, [facility] [place] [facility] [address] [facility] [id number], [place] [address] Dec, [facility] [address] [facility] [id number], [place] 395244474 Dec, [facility] [place] [facility] [address] [facility] [id number], [place] 91355206[place] [address] Dec, [facility] [address] [id number], [place] 852[address]5870 Dec, [facility] [place] [address] [id number] [place] [id number] Nov, [facility] [place] [address] [id number] [place] 9[address]89[place] Nov, [facility] [place] [address] [id number] [place] 306698196 Oct, [facility] [place] [address] [id number] [place] 37712[place]89 Oct, [facility] [place] [address] [id number] [place] 4597739[address] Sep, [facility] [place] [address] [id number] [place] [address] Sep, [facility] [place] [address] [id number] [place] 4356799[address] Sep, [facility] [address] [id number] [place] [id number] Aug, [facility] [place] [address] [id number] [place] [id number] Aug, [facility] [address] [id number] [place] 6[place]10211 July, [facility] [address] [id number] [place] 560237618 July, [facility] [place] [address] [id number] [place] 494373502 July, [facility] [address] [id number] [place] [id number] July, [facility] [address] [id number], [place] [address] Jun, [facility] [place] [address] [id number] [place] [id number] Jun, [facility] [place] [address] [id number] [place] [id number] Jun, [facility] [address] [id number] [place] [id number] Jun, [facility] [address] [id number] [place] 079206886 May, [facility] [address] [id number] [place] [id number] May, [facility] [place] [address] [id number] [place] 191798948 Apr, [facility] [address] [id number] [place] [id number] Apr, [facility] [address] [id number] [place] 879896732 Apr, [facility] [address] [id number] [place] [id number] Apr, [facility] [place] [address] [id number] [place] [id number] Apr, [facility] [place] [facility] [id number] [place] [address]- [address]94 Apr, [facility] [address] [id number] [place] [id number] Apr, [facility] [place] [address] [id number] [place] [id number] Apr, [facility] [address] [id number] [place] [id number] Mar, [facility] [place] [facility] [id number] [place] [address]- 5874 Feb, [facility] [place] [facility] [address] [id number], [place] [address] Feb, [facility] [place] [facility] [id number] [place] [address]23- 6403 Feb, [facility] [place] [facility] [id number] [place] [address]- 8118 Feb, [facility] [place] [facility] [id number] [place] [address]- 1198 Jan, [facility] [place] [facility] [id number] [place] [address]32[address]- 0857 Jan, [facility] [place] [facility] [id number] [place] [address] 73610- 2026 Jan, [facility] [place] [facility] [address] [id number] [place] [address]- 2661 Dec, [facility] [place] [facility] [address] [id number] [place] [address]- 3499 Dec, [facility] [place] [facility] [address] [id number] [place] [address]- [address] 17 Aug, 2010 [facility] [place] [facility] [address] [id number] [place] [address]- [address]228 16 Aug, 2010 [facility] [place] [facility] [address] [id number] [place] [address]- 4[address] 30 Feb, 2010 [facility] [place] [facility] [address] [id number] [place] [address]- 7730 Feb, [facility] [place] [facility] [address] [id number] [place] [address]- 2896 Jan, [facility] [place] [facility] [address] [id number] [place] [address]- 0727 Jan, [facility] [place] [facility] [address] [id number] [place] [address]- 3964 Dec, [facility] [place] [facility] [address] [id number] [place] [address]- 3697 Dec, [facility] [place] [facility] [address] [id number], [place] [address]- [address]656 Dec, [facility] [place] [facility] [address] [id number], [place] [address]- 3979 May, [facility] [place] [facility] [address] [id number] [place] [address]- 2057 Mar, [facility] [place] [facility] [address] [id number] [place] [address]- 3271 Feb, [facility] [place] [facility] [address] [id number] [place] [address]- 4542 08 Feb, 2009 [facility] [place] [facility] [address] [id number], [place] [address] Feb, [facility] [address], [place] [address]- [address]46 Jan, [facility] [address], [place] [address]- [address]46 Jan, [facility] [address], [place] [address]- [address]46 Oct, [facility] [id number] [place] [address]7905- 2546 July, [facility] [id number] [place] [address] 34484- 2546 Apr, [facility] [id number] [place] [address]- 2546 Jan, [facility] [address], [place] [address]- [address]46 Jan, IMMUNIZATIONS No Known Immunizations SOCIAL HISTORY Never Assessed REASON FOR VISIT RX-Metformin refill PLAN OF CARE VITAL SIGNS MEDICATIONS Medication Instructions Dosage Frequency Start Date End Date Duration Status Metformin HCl 1000 MG Orally 2 times a day TAKE 1 TABLET BY MOUTH TWICE DAILY WITH MEALS... 12h Active RESULTS No Results PROCEDURES No Known [...] Hospitalization History surgeries, childbirth Hospitalization History [facility] [place]- Possible Stroke 05/16/2017
--- OUTSIDE RECORDS SUMMARY | 2017-09-20 06:47 | XMS REPORT ---
Author Author CATRACHITA MOLINA Organization [facility] Address [address] [place] [address] Care Team Providers Care Signal Timer Name Role Phone CATRACHITA MOLINA Unavailable PROBLEMS Type Condition ICD9-CM Code UGU41-FC Code Onset Dates Condition Status SNOMED Code Problem RLS (restless legs syndrome) G25.81 Active 82396290 Problem Encounter for immunization Z23 Active 832936250 Problem Essential hypertension I10 Active 12599111 Problem Diabetes type 2, controlled E11.9 Active 18860360 Problem Diabetic polyneuropathy associated with type 2 diabetes mellitus E11.42 Active 70793905 Problem Other chronic pain G89.29 Active 48113998 Problem Hypoglycemia E16.2 Active 044466888 Problem Reactive depression F32.9 Active 56660605 Problem Type 2 diabetes mellitus with hyperglycemia E11.65 Active 102797893047308 Problem Spinal stenosis, unspecified spinal region M48.00 Active 33191315 Problem Type 2 diabetes mellitus with other specified complication E11.69 Active 24563613231010 Problem Hyperlipidemia, unspecified E78.5 Active 33878782 ALLERGIES No Information ENCOUNTERS Encounter Location Date Diagnosis [facility] [id number], [place] [id number] Jun, [facility] [id number] [place] [address] [id number] 05 Jun, 2017 Hypoglycemia E16.2 [facility] [id number] [place] [address] [id number] May, Hypoglycemia E16.2 ; Acute cystitis with hematuria N30.01 and Essential hypertension I10 [facility] [address] [address] 15 May, 2017 [facility] [address] [id number], [place] [id number] 14 May, 2017 Spinal stenosis, unspecified spinal region M48.00 [facility] [address] [id number] [address] May, Reactive depression F32.9 [facility] [address] [id number], [place] [id number] May, [facility] [place] [id number], [place] [id number] Apr, [facility] [address] [facility] [id number][place] [id number] Apr, [facility] [address] [id number], [place] [id number] Apr, [facility] [id number], [place] [id number] Apr, [facility] [id number] [place] [address] [id number] Apr, Spinal stenosis, unspecified spinal region M48.00 [facility] [id number], [place] [address] Apr, Type 2 diabetes mellitus with other specified complication E11.69 ; Spinal stenosis, unspecified spinal region M48.00 ; Reactive depression F32.9 and Essential hypertension I10 [facility] [address] [id number], [place] [id number] Apr, [facility] [id number], [place] [address]303[address] Mar, Spinal stenosis, unspecified spinal region M48.00 [facility] [id number], [place] [id number] Feb, Acute non-recurrent maxillary sinusitis J01.00 and Essential hypertension I10 [facility] [id number], [place] [address]228[address] Feb, Spinal stenosis, unspecified spinal region M48.00 [facility] [id number], [place] [id number] Feb, Type 2 diabetes mellitus with other specified complication E11.69 [facility] [id number], [place] [address]25015151 Feb, Type 2 diabetes mellitus with other specified complication E11.69 and Essential hypertension I10 [facility] [address] [id number], [place] 118284147 Feb, [facility] [id number], [place] 39[address]791 Feb, [facility] [id number], [place] 744925634 Jan, Spinal stenosis, unspecified spinal region M48.00 [facility] [id number], [place] 032871720 Jan, Diabetic polyneuropathy associated with type 2 diabetes mellitus E11.42 [facility] [id number], [place] 489064471 Jan, Diabetic polyneuropathy associated with type 2 diabetes mellitus E11.42 [facility] [id number], [place] 136475276 Jan, Type 2 diabetes mellitus with hyperglycemia E11.65 ; Type 2 diabetes mellitus with other specified complication E11.69 ; Spinal stenosis, unspecified spinal region M48.00 and Essential hypertension I10 [facility] [id number], [place] 788165214 Jan, Diabetic polyneuropathy associated with type 2 diabetes mellitus E11.42 [facility] [address] [id number], [place] [id number] Dec, [facility] [id number], [place] 822246727 Dec, Diabetic polyneuropathy associated with type 2 diabetes mellitus E11.42 ; Type 2 diabetes mellitus with other specified complication E11.69 ; Hyperlipidemia, unspecified E78.5 ; Thyroid disorder E07.9 and Thyroid disorder screening Z13.29 [facility] [address] [id number], [place] [id number] Dec, Diabetic polyneuropathy associated with type 2 diabetes mellitus E11.42 [facility] [address] [id number] 28972457[address] Dec, Diabetic polyneuropathy associated with type 2 diabetes mellitus E11.42 [facility] [id number], [place] 79[address]50 Dec, Spinal stenosis, unspecified spinal region M48.00 [facility] [address] [id number], [place] 034301581 Dec, [facility] [id number] [place] [address] [id number] 18 Nov, 2016 Diabetic polyneuropathy associated with type 2 diabetes mellitus E11.42 [facility] [address] [id number], [place] 685282940 15 Nov, 2016 Other chronic pain G89.29 [facility] [address] [id number], [place] 028147920 14 Nov, 2016 Spinal stenosis, unspecified spinal region M48.00 [facility] [id number] [place] [address] [id number] 16 Oct, 2016 Spinal stenosis, unspecified spinal region M48.00 ; Essential hypertension I10 ; RLS (restless legs syndrome) G25.81 and Diabetic polyneuropathy associated with type 2 diabetes mellitus E11.42 [facility] [id number] [place] [address] [id number] Oct, Spinal stenosis, unspecified spinal region M48.00 [facility] [address] [id number], [place] 233904677 Sep, Diabetic polyneuropathy associated with type 2 diabetes mellitus E11.42 ; RLS (restless legs syndrome) G25.81 ; Spinal stenosis, unspecified spinal region M48.00 and Essential hypertension I10 [facility] [address] [id number], [place] [id number] Sep, [facility] [address] [id number], [place] 232644051 Sep, Spinal stenosis, unspecified spinal region M48.00 [facility] [address] [id number], [place] 056890151 Sep, [facility] [address] [id number], [place] 407743504 Aug, Spinal stenosis, unspecified spinal region M48.00 [facility] [address]00565100[place] 11346[address]- [address] July, [facility] [address] [id number], [place] 926852321 July, Spinal stenosis, unspecified spinal region M48.00 [facility] [address] [id number], [place] [id number] Jun, Type 2 diabetes mellitus with hyperglycemia E11.65 [facility] [address] [id number], [place] 777084187 Jun, Spinal stenosis, unspecified spinal region M48.00 [facility] [id number] [place] [address] [id number] May, Spinal stenosis, unspecified spinal region M48.00 [facility] [address] [id number], [place] 577933210 Apr, Spinal stenosis, unspecified spinal region M48.00 [facility] [address]00565100[place], [place] [address] Mar, [facility] [id number] [place] [address] [id number] Mar, Type 2 diabetes mellitus with hyperglycemia E11.65 ; RLS (restless legs syndrome) G25.81 and Spinal stenosis, unspecified spinal region M48.00 [facility] [address]00565100[place], [place] [address] Mar, [facility] [id number], [place] 672148868 Mar, [facility] [address] [id number] 689108837 Mar, [facility] [address] [facility] [id number], [place] [id number] Feb, [facility] [address]00565100[place], [place] 195916[address]- [address] Feb, [facility] [id number], [place] [id number] Feb, [facility] [id number], [place] [id number] Feb, [facility] [id number] [place] [address] Feb, [facility] [id number] [place] [address]78- 2546 Feb, [facility] [id number] [place] [address] [id number] Jan, [facility] [id number] [place] [address] [id number] Dec, Diabetic polyneuropathy associated with type 2 diabetes mellitus E11.42 ; Other chronic pain G89.29 ; Essential hypertension I10 and Encounter for immunization Z23 [facility] [id number] [place] [address] [id number] Dec, [facility] [id number] [place] [address] 42117 2546 Nov, [facility] [id number] [place] [address] [id number] Nov, [facility] [id number] [place] [address] [id number] Nov, Diabetes type 2, controlled E11.9 [facility] [id number] [place] [address] [id number] Nov, Diabetes type 2, controlled E11.9 ; Other chronic pain G89.29 ; Essential hypertension I10 ; Diabetic polyneuropathy associated with type 2 diabetes mellitus E11.42 and RLS (restless legs syndrome) G25.81 [facility] [id number] [place] [address] 21977- 2546 Nov, [facility] [id number] [place] [address] [id number] Oct, [facility] [id number] [place] [address] [id number] Oct, [facility] [id number] [place] [address] [id number] Oct, [facility] [id number] [place] [address] 85766- 2549 Oct, [facility] [id number] [place] [address] [id number] Sep, [facility] [id number] [place] [address] [id number] Sep, [facility] [address] [facility] [id number], [place] 66553711- [address] Sep, Dental examination Z01.20 [facility] [place] [facility] [address] [facility] [id number], [place] 78401394- 3[address] Aug, [facility] [address] [facility] [id number], [place] [id number] Aug, [facility] [place] [facility] [id number] [place] [address]37- 5713 Aug, [facility] [place] [facility] [id number] [place] [address] 91609- 5345 July, [facility] [place] [facility] [address] [id number] [address] July, [facility] [address]00565100[place], [place] [address] July, [facility] [id number], [place] 937324766 July, [facility] [address] [id number], [place] [id number] July, [facility] [id number] [place] [address] [id number] July, [facility] [place] [facility] [address]00565100[place], [place] [address] 2546 July, [facility] [address] [id number], [place] [id number] Jun, Diabetes type 2, controlled E11.9 [facility] [address] [id number], [place] 675765359 Jun, [facility] [address] [id number] [place] [address] [id number] May, Diabetes type 1, uncontrolled E10.65 [facility] [address] [id number], [place] [id number] May, [facility] [id number] [place] [address] [id number] Apr, [facility] [address] [id number], [place] [id number] Apr, [facility] [address] [id number], [place] [id number] Mar, [facility] [address] [id number], [place] [id number] Mar, [facility] [address] [id number], [place] 385385060 Mar, [facility] [address] [id number], [place] 356113492 Mar, Diabetes type 1, uncontrolled E10.65 [facility] [id number], [place] 903012639 Feb, [facility] [id number], [place] 813432750 Feb, [facility] [id number], [place] 607056277 Feb, [address] [id number], [place] 484287778 Jan, [facility] [address] [facility] [id number], [place] 855235242 Jan, Dysuria R30.0 and Acute cystitis with hematuria N30.01 [facility] [id number], [place] 410140616 Jan, [facility] [address] [facility] [id number], [place] 295326301 Dec, Gastroenteritis K52.9 and Headache, unspecified headache type R51 [facility] [address] [facility] [id number], [place] 240875167 Dec, [facility] [address] [facility] [id number], [place] 645801171 Dec, Chronic back pain 724.5 [facility] [address] [id number] 3950[address]327 Dec, [facility] [address] [facility] [id number], [place] 779034240 Nov, Chronic back pain 724.5 and Diabetes mellitus without mention of complication, type II or unspecified type, uncontrolled 250.02 [facility] [address] [id number] [place] [id number] Nov, [facility] [address] [facility] [id number] [place] [id number] Oct, [facility] [address] [id number] [place] [id number] Sep, Diabetes mellitus without mention of complication, type II or unspecified type, uncontrolled 250.02 and Urinary tract infection 599.0 [facility] [address] [id number], [place] 514338171 July, [facility] [id number] [place] [address] 85317- 2546 Jun, [facility] [id number] [place] [address] 67171- 9596 Jun, [facility] [id number], [place] [id number] May, [facility] [address] [place] [address] 45620- 5636 May, [facility] [id number], [place] 600144572 May, [facility] [facility] [id number] [place] [address] 40156- 2546 May, [facility] [id number], [place] 742593812 Mar, [facility] [address] [place] [address] 89309- 7836 Mar, [facility] [place] [facility] [address]00565100[place], [place] [address]- 2546 Mar, [facility] [id number], [place] [id number] Mar, [facility] [address] [id number], [place] [id number] Feb, [facility] [id number] [place] [address] 93566- 2596 Feb, [facility] [address] [id number] [place] [id number] Feb, [facility] [place] [facility] [address] [id number] [place] [address] 2546 Feb, [facility] [place] [facility] [address] [facility] [id number] [place] [address]- 2546 Feb, [facility] [address] [id number] [place] [id number] Feb, [facility] [address] [id number] [place] [id number] Feb, [facility] [place] [facility] [address] [facility] [id number] [place] [address] 2546 Feb, [facility] [place] [facility] [address] [facility] [id number] [place] [address]- 1367 Feb, [facility] [address] [facility] [id number], [place] [id number] Jan, [facility] [place] [facility] [address] [facility] [id number], [place] [address]- 6077 Jan, [facility] [address] [facility] [id number], [place] [id number] Jan, [facility] [place] [facility] [address] [facility] [id number] [address]- 6655 Jan, [facility] [address] [id number], [place] [id number] Dec, [facility] [place] [facility] [address] [facility] [id number], [place] [address]- 6473 Dec, [facility] [place] [facility] [address] [facility] [id number], [place] [address]- 8588 Dec, [facility] [place] [facility] [address] [facility] [id number], [place] [address]- 3335 Dec, [facility] [address] [facility] [id number], [place] [id number] Dec, [facility] [place] [facility] [address] [facility] [id number] [address]- 2546 Dec, [facility] [address] [id number] [place] [id number] Nov, [facility] [place] [facility] [address] [facility] [id number] [place] [address] 2546 Nov, [facility] [address] [id number] [place] [id number] Oct, [facility] [place] [facility] [address] [facility] [id number] [place] [address]- 4416 Oct, [facility] [place] [facility] [address] [id number] [place] [address] 2546 Sep, [facility] [address] [id number] [place] [id number] Sep, [facility] [address] [facility] [id number] [place] [id number] Aug, [facility] [place] [facility] [address] [facility] [id number], [place] [address]- 7956 Aug, [facility] [address] [facility] [id number] [place] [id number] July, [facility] [place] [facility] [address] [facility] [id number], [place] [address]- 2766 July, [facility] [address] [facility] [id number], [place] [id number] July, [facility] [place] [facility] [address] [facility] [id number][place] [address]- 9766 July, [facility] [place] [facility] [address] [facility] [id number] [address]- 2546 July, [facility] [place] [facility] [address] [facility] [id number] [place] [address]- 9886 Jun, [facility] [address] [id number] [place] [id number] Jun, [facility] [address] [id number] [place] [id number] Jun, [facility] [place] [facility] [address] [facility] [id number], [place] [address]- 2776 Jun, [facility] [address] [facility] [id number][place] [address]- 2256 Jun, [facility] [place] [facility] [address] [facility] [id number] [address]- 2546 May, [facility] [address] [facility] [id number], [place] [id number] Apr, [facility] [address] [facility] [id number], [place] [address]- 1016 Apr, [facility] [address] [facility] [id number], [place] [id number] Apr, [facility] [address] [facility] [id number], [place] [address] Apr, [facility] [id number] [address] Mar, [facility] [address] [facility] [id number], [place] [address] Mar, [facility] [id number] [address] Mar, [facility] [address] [id number][place] [id number] Mar, [facility] [address] [id number], [place] [address] Mar, [facility] [place] [facility] [address] [facility] [id number], [place] [address] Mar, [facility] [place] [facility] [address] [facility] [id number][place] [address] Feb, [facility] [address] [facility] [id number][place] [id number] Feb, [facility] [place] [facility] [address] [facility] [id number], [place] [address] Feb, [facility] [address] [facility] [id number] [place] [id number] Feb, [facility] [address] [facility] [id number] [place] [address] Feb, [facility] [address] [id number] [place] [id number] Feb, [facility] [place] [facility] [address] [facility] [id number], [place] [address] Feb, [facility] [address] [id number] [place] [id number] Jan, [facility] [place] [facility] [address] [facility] [id number] [place] [address] Jan, [facility] [place] [facility] [address] [facility] [id number] [place] [address] Dec, [facility] [address] [id number] [place] [id number] Dec, [facility] [address] [facility] [id number], [place] [address] Nov, [facility] [address] [id number] [place] [id number] Oct, [facility] [address] [id number] [place] [id number] Oct, [facility] [address] [id number] [place] [id number] Sep, [facility] [address] [facility] [id number], [place] [address] Sep, [facility] [address] [id number] [place] [id number] Sep, [facility] [address] [id number] [place] [id number] Sep, [facility] [address] [id number] [place] [id number] Sep, [facility] [address] [id number] [place] [id number] Sep, [facility] [address] [id number] [place] [id number] Sep, [facility] [address] [facility] [id number], [place] [address] Aug, [facility] [address] [facility] [id number] [place] [id number] Aug, [facility] [place] [facility] [address] [facility] [id number], [place] [address] July, [facility] [place] [address] [facility] [id number] [place] [id number] July, [facility] [place] [facility] [address] [facility] [id number], [place] [address] July, [facility] [place] [address] [id number] [place] [id number] Jun, [facility] [place] [address] [facility] [id number] [place] [id number] Jun, [facility] [place] [address] [id number] [id number] Jun, [facility] [address] [id number] [address] Jun, [facility] [place] [address] [id number] [place] [id number] May, [facility] [place] [address] [facility] [id number][place] [id number] May, [facility] [place] [facility] [id number], [place] [address] May, [facility] [place] [address] [facility] [id number][place] [id number] Apr, [facility] [place] [facility] [address] [facility] [id number], [place] [address] Apr, [facility] [place] [address] [facility] [id number][place] [id number] Apr, [facility] [place] [address] [facility] [id number], [place] [id number] Apr, [facility] [id number], [place] [address] Mar, [facility] [place] [address] [id number] [place] [id number] Mar, [facility] [place] [address] [id number] [place] [id number] Mar, [facility] [place] [address] [id number] [place] [id number] Feb, [facility] [address] [facility] [id number], [place] [address] Feb, [facility] [place] [address] [id number][place] [id number] Jan, [facility] [place] [address] [id number][place] [id number] Jan, [facility] [place] [facility] [address] [facility] [id number], [place] [address] Jan, [facility] [id number] [id number] Jan, [facility] [place] [address] [id number][place] [id number] Jan, [facility] [place] [facility] [address] [facility] [id number] Jan, [facility] [place] [address] [id number][place] [id number] Dec, [facility] [place] [facility] [address] [facility] [id number], [place] [address] Dec, [facility] [place] [address] [id number][place] [id number] Dec, [facility] [place] [facility] [address] [facility] [id number], [place] [address] Dec, [facility] [place] [address] [id number] [place] [id number] Dec, [facility] [address] [id number][place] [address] Nov, [facility] [place] [address] [id number], [place] [id number] Nov, [facility] [place] [address] [id number] [place] [id number] Oct, [facility] [place] [address] [id number] [place] [id number] Oct, [facility] [place] [address] [id number] [place] [id number] Sep, [facility] [place] [address] [id number] [place] [id number] Sep, [facility] [place] [address] [id number] [place] [id number] Sep, [facility] [place] [address] [id number] [place] [id number] Aug, [facility] [place] [address] [id number] [place] [address] Aug, [facility] [place] [address] [id number] [place] [address] July, [facility] [place] [address] [id number] [place] [id number] July, [facility] [place] [address] [id number] [place] [id number] July, [facility] [place] [address] [id number] [place] [id number] July, [facility] [address] [facility] [id number], [place] [address] Jun, [facility] [place] [address] [id number] [place] [id number] Jun, [facility] [place] [address] [id number] [place] [id number] Jun, [facility] [place] [address] [id number] [place] [id number] Jun, [facility] [place] [address] [id number] [place] [id number] May, [facility] [place] [address] [id number] [place] [id number] May, [facility] [place] [address] [id number] [place] [id number] Apr, [facility] [place] [address] [id number] [place] [id number] Apr, [facility] [place] [address] [id number] [place] [address] Apr, [facility] [place] [address] [id number] [place] [id number] Apr, [facility] [place] [address] [id number] [place] [id number] Apr, [facility] [address] [facility] [id number], [place] [address] Apr, [facility] [place] [address] [id number] [place] [id number] Apr, [facility] [place] [address] [id number] [place] [id number] Apr, [facility] [place] [address] [id number] [place] [id number] Mar, [facility] [id number], [place] [address] Feb, [facility] [place] [facility] [id number], [place] [address] Feb, [facility] [place] [facility] [address] [id number], [place] [address] Feb, [facility] [place] [facility] [id number], [place] [address] Feb, [facility] [place] [facility] [id number], [place] [address] Jan, [facility] [place] [facility] [id number], [place] [address] Jan, [facility] [place] [facility] [id number], [place] [address] Jan, [facility] [place] [facility] [id number], [place] [address] Dec, [facility] [place] [facility] [id number], [place] [address] Dec, [facility] [place] [facility] [address] [id number] [place] [address] 17 Aug, 2010 [facility] [place] [facility] [address] [id number] [place] [address] Aug, [facility] [place] [facility] [address] [id number] [place] [address] 30 Feb, 2010 [facility] [place] [facility] [address] [id number] [place] [address] Feb, [facility] [place] [facility] [address] [id number] [place] [address] Jan, [facility] [place] [facility] [address] [id number] [place] [address] Jan, [facility] [place] [facility] [address] [id number] [place] [address] 1673 Dec, [facility] [place] [facility] [address] [id number] [place] [address] Dec, [facility] [place] [facility] [address] [id number] [place] [address]- [address] Dec, [facility] [place] [facility] [address] [id number] [place] [address] 47[address] May, [facility] [place] [facility] [address] [id number] [place] [address]- [address]83 Mar, [facility] [place] [facility] [address] [id number] [place] [address]- [address] Feb, [facility] [place] [facility] [address] [id number] [place] [address]- [address]592 Feb, [facility] [place] [facility] [address] [id number] [place] [address]- 8084 Feb, [facility] [place] [facility] [address] [id number] [place] [address]- [address] Jan, [facility] [place] [facility] [address] [id number], [place] [address] Jan, [facility] [address] [facility] [id number], [place] [address] Oct, [facility] [address] [id number], [place] [address] July, [facility] [address] [facility] [id number], [place] [address]- [address] Apr, [facility] [address] [id number], [place] [address] Jan, [facility] [address] [facility] [id number], [place] [address] Jan, IMMUNIZATIONS No Known Immunizations SOCIAL HISTORY Never Assessed REASON FOR VISIT 1 yr f/u DM Ed PLAN OF CARE VITAL SIGNS MEDICATIONS Unknown [...] Hospitalization History surgeries, childbirth Hospitalization History ED Isabel- Possible Stroke 05/16/2017
--- OUTSIDE RECORDS SUMMARY | 2017-09-20 06:50 | XMS REPORT | Continuity of Care Document ---
Author Author Formerly [facility] of [facility] Ctr of [facility] Address Unknown Phone Unavailable Allergies Active Description Code Type Severity Reaction Onset Reported/Identified Relationship to Patient Clinical Status Yes No Known Drug Allergies [id number] Drug Allergy Unknown N/A 11/05/2009 Medications There [...] DO, JOSE LUIS K 272.4 DYSLIPIDEMIA 10/10/2007 [facility] GENERAL CLAIMS AGENT, [place] E 250.02 DIABETES MELLITUS TYPE 2 - UNCOMPLICATED, UNCONTROLLED 10/10/2007 [facility] [place] E 272.4 DYSLIPIDEMIA 10/10/2007 SOLO DO, JOSE LUIS K 250.02 DIABETES MELLITUS TYPE 2 - UNCOMPLICATED, UNCONTROLLED 10/10/2007 SOLO DO, JOSE LUIS K 272.4 DYSLIPIDEMIA 10/10/2007 [facility] GENERAL CLAIMS AGENT, [place] E 250.02 DIABETES MELLITUS TYPE 2 - UNCOMPLICATED, UNCONTROLLED 10/10/2007 [facility] GENERAL CLAIMS AGENT, [place] E 272.4 DYSLIPIDEMIA 10/10/2007 [facility] GENERAL CLAIMS AGENT, [place] E 250.02 DIABETES MELLITUS TYPE 2 - UNCOMPLICATED, UNCONTROLLED 10/10/2007 [facility] GENERAL CLAIMS AGENT, [place] E 272.4 DYSLIPIDEMIA 10/10/2007 SOLO DO, JOSE LUIS K 250.02 DIABETES MELLITUS TYPE 2 - UNCOMPLICATED, UNCONTROLLED 10/10/2007 SOLO DO, JOSE LUIS K 272.4 DYSLIPIDEMIA 10/10/2007 SOLO DO, JOSE LUIS K 250.02 DIABETES MELLITUS TYPE 2 - UNCOMPLICATED, UNCONTROLLED 10/10/2007 SOLO DO, JOSE LUIS K 272.4 DYSLIPIDEMIA 10/10/2007 [facility] GENERAL CLAIMS AGENT, [place] E 250.02 DIABETES MELLITUS TYPE 2 - UNCOMPLICATED, UNCONTROLLED 10/10/2007 [facility], [place] E 272.4 DYSLIPIDEMIA 10/10/2007 SOLO DO, JOSE LUIS K 250.02 DIABETES MELLITUS TYPE 2 - UNCOMPLICATED, UNCONTROLLED 10/10/2007 SOLO DO, JOSE LUIS K 272.4 DYSLIPIDEMIA 10/10/2007 SOLO DO, JOSE LUIS K 250.02 DIABETES MELLITUS TYPE 2 - UNCOMPLICATED, UNCONTROLLED 10/10/2007 SOLO DO, JOSE LUIS K 272.4 DYSLIPIDEMIA 10/10/2007 [facility] GENERAL CLAIMS AGENT, [place] E 250.02 DIABETES MELLITUS TYPE 2 - UNCOMPLICATED, UNCONTROLLED 10/10/2007 [facility], [place] E 272.4 DYSLIPIDEMIA 10/10/2007 SOLO DO, JOSE LUIS K 250.02 DIABETES MELLITUS TYPE 2 - UNCOMPLICATED, UNCONTROLLED 10/10/2007 SOLO DO, JOSE LUIS K 272.4 DYSLIPIDEMIA 10/14/2007 COREY REYES, MARITZA 250.00 DIABETES MELLITUS TYPE 2 - UNCOMPLICATED, CONTROLLED 10/14/2007 COREY REYES, MARITZA 338.4 PAIN CHRONIC SYNDROME 10/14/2007 MARITZA [...] K 599.0 URINARY TRACT INFECTION 10/14/2007 [facility] GENERAL CLAIMS AGENT [place] E 250.00 DIABETES MELLITUS TYPE 2 - UNCOMPLICATED, CONTROLLED 10/14/2007 [facility] GENERAL CLAIMS AGENT [place] E 338.4 PAIN CHRONIC SYNDROME 10/14/2007 [facility] GENERAL CLAIMS AGENT [place] E 599.0 URINARY TRACT INFECTION 10/14/2007 SOLO DO, JOSE LUIS K 250.00 DIABETES MELLITUS TYPE 2 - UNCOMPLICATED, CONTROLLED 10/14/2007 SOLO DO, JOSE LUIS K 338.4 PAIN CHRONIC SYNDROME 10/14/2007 SOLO DO, JOSE LUIS K 599.0 URINARY TRACT INFECTION 10/14/2007 [facility] GENERAL CLAIMS AGENT, [place] E 250.00 DIABETES MELLITUS TYPE 2 - UNCOMPLICATED, CONTROLLED 10/14/2007 [facility] GENERAL CLAIMS AGENT, [place] E 338.4 PAIN CHRONIC SYNDROME 10/14/2007 [facility] GENERAL CLAIMS AGENT [place] E 599.0 URINARY TRACT INFECTION 10/14/2007 [facility] GENERAL CLAIMS AGENT, [place] E 250.00 DIABETES MELLITUS TYPE 2 - UNCOMPLICATED, CONTROLLED 10/14/2007 [facility] GENERAL CLAIMS AGENT, [place] E 338.4 PAIN CHRONIC SYNDROME 10/14/2007 [facility] GENERAL CLAIMS AGENT [place] E 599.0 URINARY TRACT INFECTION 10/14/2007 [...] K 599.0 URINARY TRACT INFECTION 10/14/2007 [facility] GENERAL CLAIMS AGENT [place] E 250.00 DIABETES MELLITUS TYPE 2 - UNCOMPLICATED, CONTROLLED 10/14/2007 [facility] GENERAL CLAIMS AGENT [place] E 338.4 PAIN CHRONIC SYNDROME 10/14/2007 [facility] GENERAL CLAIMS AGENT [place] E 599.0 URINARY TRACT INFECTION 10/14/2007 [...] TRACT INFECTION 11/28/2007 MARITZA NICOLE MD V72.31 Perinatal Instructor Exam, Routine 11/28/2007 MARITZA NICOLE MD V72.31 Perinatal Instructor Exam, Routine 11/28/2007 MARITZA NICOLE MD V72.31 Perinatal Instructor Exam, Routine 11/28/2007 MANNY VALDIVIA APRN V72.31 Perinatal Instructor Exam, Routine 11/28/2007 V72.31 Perinatal Instructor Exam, Routine 11/28/2007 V72.31 Perinatal Instructor Exam, Routine 11/28/2007 V72.31 Perinatal Instructor Exam, Routine 11/28/2007 V72.31 Perinatal Instructor Exam, Routine 11/28/2007 V72.31 Perinatal Instructor Exam, Routine 11/28/2007 V72.31 Perinatal Instructor Exam, Routine 11/28/2007 SOLO DO JOSE LUIS K V72.31 Perinatal Instructor Exam, Routine 11/28/2007 SOLO DO JOSE LUIS K V72.31 Perinatal Instructor Exam, Routine 11/28/2007 [place] GALVAN APRN E V72.31 Perinatal Instructor Exam, Routine 11/28/2007 SOLO DO JOSE LUIS K V72.31 Perinatal Instructor Exam, Routine 11/28/2007 [place] GALVAN APRN V72.31 Perinatal Instructor Exam, Routine 11/28/2007 HELL[place]ORGIA NARAYAN APRN V72.31 Perinatal Instructor Exam, Routine 11/28/2007 SOLO DOJOSE LUIS K V72.31 Perinatal Instructor Exam, Routine 11/28/2007 SOLO PHILLIPA K V72.31 Perinatal Instructor Exam, Routine 11/28/2007 RADHAGEORGIA NARAYAN APRN V72.31 Perinatal Instructor Exam, Routine 11/28/2007 GERMANIA PINEDAPHILLIPA K V72.31 Perinatal Instructor Exam, Routine 11/28/2007 GERMANIA PINEDAPHILLIPA K V72.31 Perinatal Instructor Exam, Routine 11/28/2007 RADHAGEORGIA NARAYAN APRN V72.31 Perinatal Instructor Exam, Routine 11/28/2007 SOLO JOSE LUIS PINEDA K V72.31 Perinatal Instructor Exam, Routine 01/14/2008 MARITZA NICOLE MD 305.1 [...] V03.82 Pcv7 Pcv23, Streptococcus Pneumoniae [pneumococcus] 01/14/2008 [facility] [place] E 305.1 TOBACCO ABUSE 01/14/2008 [facility] ParsonsSIE E V03.82 Pcv7 Pcv23, Streptococcus Pneumoniae [pneumococcus] 01/14/2008 SOLO DO, JOSE LUIS K 305.1 TOBACCO ABUSE 01/14/2008 SOLO DO JOSE LUIS K V03.82 Pcv7 Pcv23, Streptococcus Pneumoniae [pneumococcus] 01/14/2008 [facility] SAMANTHA [place] E 305.1 TOBACCO ABUSE 01/14/2008 [facility] PHILLIP SINGHSIE E V03.82 Pcv7 Pcv23, Streptococcus Pneumoniae [pneumococcus] 01/14/2008 [facility] GENERAL CLAIMS AGENT, [place] E 305.1 TOBACCO ABUSE 01/14/2008 [facility] GENERAL CLAIMS AGENT, [place] E V03.82 Pcv7 Pcv23, Streptococcus Pneumoniae [pneumococcus] 01/14/2008 SOLO DO, JOSE LUIS K 305.1 TOBACCO ABUSE 01/14/2008 SOLO DO, JOSE LUIS K V03.82 Pcv7 Pcv23, Streptococcus Pneumoniae [pneumococcus] 01/14/2008 SOLO DO, JOSE LUIS K 305.1 TOBACCO ABUSE 01/14/2008 SOLO DO, JOSE LUIS K V03.82 Pcv7 Pcv23, Streptococcus Pneumoniae [pneumococcus] 01/14/2008 [facility] GENERAL CLAIMS AGENT, [place] E 305.1 TOBACCO ABUSE 01/14/2008 [facility] GENER[facility] CLAIMS AGENT, [place] E V03.82 Pcv7 Pcv23, Streptococcus Pneumoniae [...] K 401.1 ESSENTIAL HYPERTENSION BENIGN 04/15/2008 [facility] GENERAL CLAIMS AGENT, [place] E 357.9 POLYNEUROPATHY INFLAMMATORY 04/15/2008 [facility] GENERAL CLAIMS AGENT, [place] E 401.1 ESSENTIAL HYPERTENSION BENIGN 04/15/2008 [facility] GENERAL CLAIMS AGENT, [place] E 357.9 POLYNEUROPATHY INFLAMMATORY 04/15/2008 [facility] GENERAL CLAIMS AGENT, [place] E 401.1 ESSENTIAL HYPERTENSION BENIGN 04/15/2008 SOLO DO, JOSE LUIS K 357.9 POLYNEUROPATHY INFLAMMATORY 04/15/2008 SOLO DO, JOSE LUIS K 401.1 ESSENTIAL HYPERTENSION BENIGN 04/15/2008 SOLO DO, JOSE LUIS K 357.9 POLYNEUROPATHY INFLAMMATORY 04/15/2008 SOLO DO, JOSE LUIS K 401.1 ESSENTIAL HYPERTENSION BENIGN 04/15/2008 [facility] AG[facility], [place] E 357.9 POLYNEUROPATHY INFLAMMATORY 04/15/2008 [facility], [place] E 401.1 ESSENTIAL HYPERTENSION BENIGN 04/15/2008 SOLO DO, JOSE LUIS K 357.9 POLYNEUROPATHY INFLAMMATORY 04/15/2008 SOLO DO, JOSE LUIS K 401.1 ESSENTIAL HYPERTENSION BENIGN 04/15/2008 SOLO DO, JOSE LUIS K 357.9 POLYNEUROPATHY INFLAMMATORY 04/15/2008 SOLO DO, JOSE LUIS K 401.1 ESSENTIAL HYPERTENSION BENIGN 04/15/2008 [facility] AG[facility], [place] E 357.9 POLYNEUROPATHY INFLAMMATORY 04/15/2008 [facility] GENERAL CLAIMS AGENT, [place] E 401.1 ESSENTIAL HYPERTENSION BENIGN 04/15/2008 [...] JOSE LUIS K 786.2 Cough 10/18/2008 [facility] GENERAL CLAIMS AGENT, [place] E 528.9 Mouth Pain 10/18/2008 [facility] GENERAL CLAIMS AGENT, [place] E 780.60 Fever [as Symptom] 10/18/2008 [facility] GENERAL CLAIMS AGENT, [place] E 786.2 Cough 10/18/2008 SOLO DO, JOSE LUIS K 528.9 Mouth Pain 10/18/2008 SOLO DO, JOSE LUIS K 780.60 Fever [as Symptom] 10/18/2008 SOLO DO, JOSE LUIS K 786.2 Cough 10/18/2008 [facility] GENERAL CLAIMS AGENT, [place] E 528.9 Mouth Pain 10/18/2008 [facility] GENERAL CLAIMS AGENT [place] E 780.60 Fever [as Symptom] 10/18/2008 [facility] GENERAL CLAIMS AGENT, [place] E 786.2 Cough 10/18/2008 [facility] GENERAL CLAIMS AGENT, [place] E 528.9 Mouth Pain 10/18/2008 [facility] GENERAL CLAIMS AGENT, [place] E 780.60 Fever [as Symptom] 10/18/2008 [facility] GENERAL CLAIMS AGENT, [place] E 786.2 Cough 10/18/2008 SOLO DO, JOSE LUIS K 528.9 Mouth Pain 10/18/2008 SOLO DO, JOSE LUIS K 780.60 Fever [as Symptom] 10/18/2008 SOLO DO, JOSE LUIS K 786.2 Cough 10/18/2008 SOLO DO, JOSE LUIS K 528.9 Mouth Pain 10/18/2008 SOLO DO, JOSE LUIS K 780.60 Fever [as Symptom] 10/18/2008 SOLO DO, JOSE LUIS K 786.2 Cough 10/18/2008 [facility] GENERAL CLAIMS AGENT, [place] E 528.9 Mouth Pain 10/18/2008 [facility] [place] E 780.60 Fever [as Symptom] 10/18/2008 [facility] GENERAL CLAIMS AGENT, [place] E 786.2 Cough 10/18/2008 SOLO DO, JOSE LUIS K 528.9 Mouth Pain 10/18/2008 SOLO DO, JOSE LUIS K 780.60 Fever [as Symptom] 10/18/2008 SOLO DO, JOSE LUIS K 786.2 Cough 10/18/2008 SOLO DO, JOSE LUIS K 528.9 Mouth Pain 10/18/2008 SOLO DO, JOSE LUIS K 780.60 Fever [as Symptom] 10/18/2008 SOLO DO, JOSE LUIS K 786.2 Cough 10/18/2008 [facility] GENERAL CLAIMS AGENT, [place] E 528.9 Mouth Pain 10/18/2008 [facility], [place] E 780.60 Fever [as Symptom] 10/18/2008 [facility] GENERAL CLAIMS AGENT, [place] E 786.2 Cough 10/18/2008 SOLO DO, [...] COLE SINGH [place] E 276.51 Dehydration 10/29/2008 [facility] SING[facility] [place] E 787.01 Nausea With Vomiting 10/29/2008 SOLO DO, JOSE LUIS K 276.51 Dehydration 10/29/2008 SOLO DO, JOSE LUIS K 787.01 Nausea With Vomiting 10/29/2008 SOLO DO, JOSE LUIS K 276.51 Dehydration 10/29/2008 SOLO DO, JOSE LUIS K 787.01 Nausea With Vomiting 10/29/2008 [facility] GENERAL CLAIMS AGENT, [place] E 276.51 Dehydration 10/29/2008 [facility] GENERAL CLAIMS AGENT, [place] E 787.01 Nausea With Vomiting 10/29/2008 SOLO DO, JOSE LUIS K 276.51 Dehydration 10/29/2008 SOLO DO, JOSE LUIS K 787.01 Nausea With Vomiting 10/29/2008 SOLO DO, JOSE LUIS K 276.51 Dehydration 10/29/2008 SOLO DO, JOSE LUIS K 787.01 Nausea With Vomiting 10/29/2008 [facility] GENERAL CLAIMS AGENT [place] E 276.51 Dehydration 10/29/2008 [facility] GENER[facility] CLAIMS AGENT, [place] E 787.01 Nausea With Vomiting 10/29/2008 [...] JOSE LUIS K 724.5 BACKACHE 02/01/2009 [facility] GENERAL CLAIMS AGENT, [place] E 250.40 DIABETIC NEPHROPATHY 02/01/2009 [facility] GENERAL CLAIMS AGENT, [place] E 724.5 BACKACHE 02/01/2009 SOLO DO, JOSE LUIS K 250.40 DIABETIC NEPHROPATHY 02/01/2009 SOLO DO, JOSE LUIS K 724.5 BACKACHE 02/01/2009 [facility] GENERAL CLAIMS AGENT, [place] E 250.40 DIABETIC NEPHROPATHY 02/01/2009 [facility] GENERAL CLAIMS AGENT, [place] E 724.5 BACKACHE 02/01/2009 [facility] GENERAL CLAIMS AGENT, [place] E 250.40 DIABETIC NEPHROPATHY 02/01/2009 [facility] GENERAL CLAIMS AGENT, [place] E 724.5 BACKACHE 02/01/2009 SOLO DO, JOSE LUIS K 250.40 DIABETIC NEPHROPATHY 02/01/2009 SOLO DO, JOSE LUIS K 724.5 BACKACHE 02/01/2009 SOLO DO, JOSE LUIS K 250.40 DIABETIC NEPHROPATHY 02/01/2009 SOLO DO, JOSE LUIS K 724.5 BACKACHE 02/01/2009 [facility] GENERAL CLAIMS AGENT, [place] E 250.40 DIABETIC NEPHROPATHY 02/01/2009 [facility] GENERAL CLAIMS AGENT, [place] E 724.5 BACKACHE 02/01/2009 SOLO DO, JOSE LUIS K 250.40 DIABETIC NEPHROPATHY 02/01/2009 SOLO DO, JOSE LUIS K 724.5 BACKACHE 02/01/2009 SOLO DO, JOSE LUIS K 250.40 DIABETIC NEPHROPATHY 02/01/2009 SOLO DO, JOSE LUIS K 724.5 BACKACHE 02/01/2009 [facility] GENERAL CLAIMS AGENT, [place] E 250.40 DIABETIC NEPHROPATHY 02/01/2009 [facility] GENERAL CLAIMS AGENT, [place] E 724.5 BACKACHE 02/01/2009 SOLO DO, [...] LUIS K 477.9 Allergic Rhinitis 03/14/2009 [facility] GENERAL CLAIMS AGENT [place] E 461.9 Sinusitis Acute 03/14/2009 [facility] GENERAL CLAIMS AGENT [place] E 477.9 Allergic Rhinitis 03/14/2009 SOLO DO, JOSE LUIS K 461.9 Sinusitis Acute 03/14/2009 SOLO DO, JOSE LUIS K 477.9 Allergic Rhinitis 03/14/2009 [facility] GENERAL CLAIMS AGENT, [place] E 461.9 Sinusitis Acute 03/14/2009 [facility] GENERAL CLAIMS AGENT [place] E 477.9 Allergic Rhinitis 03/14/2009 [facility] GENERAL CLAIMS AGENT [place] E 461.9 Sinusitis Acute 03/14/2009 [facility] GENERAL CLAIMS AGENT [place] E 477.9 Allergic Rhinitis 03/14/2009 SOLO DO, JOSE LUIS K 461.9 Sinusitis Acute 03/14/2009 SOLO DO, JOSE LUIS K 477.9 Allergic Rhinitis 03/14/2009 SOLO DO, JOSE LUIS K 461.9 Sinusitis Acute 03/14/2009 SOLO DO, JOSE LUIS K 477.9 Allergic Rhinitis 03/14/2009 [facility] GENERAL CLAIMS AGENT, [place] E 461.9 Sinusitis Acute 03/14/2009 [facility] GENERAL CLAIMS AGENT, [place] E 477.9 Allergic Rhinitis 03/14/2009 SOLO DO, JOSE LUIS K 461.9 Sinusitis Acute 03/14/2009 SOLO DO, JOSE LUIS K 477.9 Allergic Rhinitis 03/14/2009 SOLO DO, JOSE LUIS K 461.9 Sinusitis Acute 03/14/2009 SOLO DO, JOSE LUIS K 477.9 Allergic Rhinitis 03/14/2009 [facility], [place] E 461.9 Sinusitis Acute 03/14/2009 [facility] GENERAL CLAIMS AGENT, [place] E 477.9 Allergic Rhinitis 03/14/2009 SOLO [...] LUIS K 724.2 lower back pain 05/13/2009 [facility] HERNANDEZN [place] E 333.94 RESTLESS LEGS SYNDROME 05/13/2009 [facility] [place] E 724.2 lower back pain 05/13/2009 SOLO DO, JOSE LUIS K 333.94 RESTLESS LEGS SYNDROME 05/13/2009 SOLO DO, JOSE LUIS K 724.2 lower back pain 05/13/2009 [facility] [place] E 333.94 RESTLESS LEGS SYNDROME 05/13/2009 [facility] GENER[facility] CLAIMS AGENT, [place] E 724.2 lower back pain 05/13/2009 [facility] GENER[facility] CLAIMS AGENT, [place] E 333.94 RESTLESS LEGS SYNDROME 05/13/2009 [facility] CLAIMS AGENT, [place] E 724.2 lower back pain 05/13/2009 SOLO DO, JOSE LUIS K 333.94 RESTLESS LEGS SYNDROME 05/13/2009 SOLO DO, JOSE LUIS K 724.2 lower back pain 05/13/2009 SOLO DO, JOSE LUIS K 333.94 RESTLESS LEGS SYNDROME 05/13/2009 SOLO DO, JOSE LUIS K 724.2 lower back pain 05/13/2009 [facility] SAM[facility]A, [place] E 333.94 RESTLESS LEGS SYNDROME 05/13/2009 [facility], [place] E 724.2 lower back pain 05/13/2009 SOLO DO, JOSE LUIS K 333.94 RESTLESS LEGS SYNDROME 05/13/2009 SOLO DO, JOSE LUIS K 724.2 lower back pain 05/13/2009 SOLO DO, JOSE LUIS K 333.94 RESTLESS LEGS SYNDROME 05/13/2009 SOLO DO, JOSE LUIS K 724.2 LOWER BACK PAIN 05/13/2009 [facility] GENER[facility] CLAIMS AGENT, [place] E 333.94 RESTLESS LEGS SYNDROME 05/13/2009 [facility], [place] E 724.2 LOWER BACK PAIN [...] APRNSIE E 535.50 Gastritis Unspec 08/23/2009 COLE SINGH [place] [...] K 280.9 IRON DEFICIENCY ANEMIA 11/08/2009 [facility] GENERAL CLAIMS AGENT, [place] E 280.9 IRON DEFICIENCY ANEMIA 11/08/2009 SOLO DO, JOSE LUIS K 280.9 IRON DEFICIENCY ANEMIA 11/08/2009 [facility] GENERAL CLAIMS AGENT, [place] E 280.9 IRON DEFICIENCY ANEMIA 11/08/2009 [facility] GENERAL CLAIMS AGENT, [place] E 280.9 IRON DEFICIENCY ANEMIA 11/08/2009 SOLO DO, JOSE LUIS K 280.9 IRON DEFICIENCY ANEMIA 11/08/2009 SOLO DO, JOSE LUIS K 280.9 IRON DEFICIENCY ANEMIA 11/08/2009 [facility] GENERAL CLAIMS AGENT, [place] E 280.9 IRON DEFICIENCY ANEMIA 11/08/2009 SOLO DO, JOSE LUIS K 280.9 IRON DEFICIENCY ANEMIA 11/08/2009 SOLO DO, JOSE LUIS K 280.9 IRON DEFICIENCY ANEMIA 11/08/2009 [facility] GENERAL CLAIMS AGENT, [place] E 280.9 IRON DEFICIENCY ANEMIA 11/08/2009 [...] LUIS K 780.52 Insomnia Unspecified 11/22/2009 [facility] GENERAL CLAIMS AGENT, [place] E 285.9 Anemia Unspecified 11/22/2009 [facility] GENERAL CLAIMS AGENT, [place] E 780.52 Insomnia Unspecified 11/22/2009 SOLO DO, JOSE LUIS K 285.9 Anemia Unspecified 11/22/2009 SOLO DO, JOSE LUIS K 780.52 Insomnia Unspecified 11/22/2009 [facility] GENERAL CLAIMS AGENT, [place] E 285.9 Anemia Unspecified 11/22/2009 [facility] GENERAL CLAIMS AGENT, [place] E 780.52 Insomnia Unspecified 11/22/2009 [facility] GENERAL CLAIMS AGENT, [place] E 285.9 Anemia Unspecified 11/22/2009 [facility] GENERAL CLAIMS AGENT, [place] E 780.52 Insomnia Unspecified 11/22/2009 SOLO DO, JOSE LUIS K 285.9 Anemia Unspecified 11/22/2009 SOLO DO, JOSE LUIS K 780.52 Insomnia Unspecified 11/22/2009 SOLO DO, JOSE LUIS K 285.9 Anemia Unspecified 11/22/2009 SOLO DO, JOSE LUIS K 780.52 Insomnia Unspecified 11/22/2009 [facility] GENERAL CLAIMS AGENT, [place] E 285.9 Anemia Unspecified 11/22/2009 [facility] GENERAL CLAIMS AGENT, [place] E 780.52 Insomnia Unspecified 11/22/2009 SOLO DO, JOSE LUIS K 285.9 Anemia Unspecified 11/22/2009 SOLO DO, JOSE LUIS K 780.52 Insomnia Unspecified 11/22/2009 SOLO DO, JOSE LUIS K 285.9 Anemia Unspecified 11/22/2009 SOLO DO, JOSE LUIS K 780.52 Insomnia Unspecified 11/22/2009 [facility] GENERAL CLAIMS AGENT, [place] E 285.9 Anemia Unspecified 11/22/2009 [facility] GENERAL CLAIMS AGENT, [place] E 780.52 Insomnia Unspecified 11/22/2009 SOLO [...] APRN 266.2 VITAMIN B12 DEFICIENCY 06/05/2011 MANNY VALDIVIA APRN 357.2 POLYNEUROPATHY DIABETIC 06/05/2011 266.2 VITAMIN [...] JOSE LUIS K 357.2 POLYNEUROPATHY DIABETIC 06/05/2011 [facility] APRNSIE E 266.2 VITAMIN B12 DEFICIENCY 06/05/2011 [facility] PHILLIP SINGHSIE E 357.2 POLYNEUROPATHY DIABETIC 06/05/2011 SOLO DO, JOSE LUIS K 266.2 VITAMIN B12 DEFICIENCY 06/05/2011 SOLO DO, JOSE LUIS K 357.2 POLYNEUROPATHY DIABETIC 06/05/2011 SOLO DO, JOSE LUIS K 266.2 VITAMIN B12 DEFICIENCY 06/05/2011 SOLO DO, JOSE LUIS K 357.2 POLYNEUROPATHY DIABETIC 06/05/2011 [facility] PHILLIP SINGHSIE E 266.2 VITAMIN B12 DEFICIENCY 06/05/2011 [facility] PHILLIP SINGHSIE E 357.2 POLYNEUROPATHY DIABETIC 06/05/2011 [...] JOSE LUIS K V76.12 Mammogram Screening 09/28/2011 [facility] APRNE E 338.29 CHRONIC PAIN 09/28/2011 [place] GALVAN APRN E V76.12 Mammogram Screening 09/28/2011 [facility] APRN E 338.29 CHRONIC PAIN 09/28/2011 [facility] NARAYAN APRNE E V76.12 Mammogram Screening 09/28/2011 SOLO DO, JOSE LUIS K 338.29 CHRONIC PAIN 09/28/2011 SOLO DO, JOSE LUIS K V76.12 Mammogram Screening 09/28/2011 SOLO DO, JOSE LUIS K 338.29 CHRONIC PAIN 09/28/2011 SOLO DO, JOSE LUIS K V76.12 Mammogram Screening 09/28/2011 [facility] APRNE E 338.29 CHRONIC PAIN 09/28/2011 PHILLIP GALVAN APRNSIE E V76.12 Mammogram Screening 09/28/2011 SOLO DO, JOSE LUIS K 338.29 CHRONIC PAIN 09/28/2011 SOLO DO, JOSE LUIS K V76.12 Mammogram Screening 09/28/2011 SOLO DO, JOSE LUIS K 338.29 CHRONIC PAIN 09/28/2011 SOLO DO, JOSE LUIS K V76.12 MAMMOGRAM SCREENING 09/28/2011 [facility] APRNSIE E 338.29 CHRONIC PAIN 09/28/2011 [facility] APRNSIE E V76.12 MAMMOGRAM SCREENING 09/28/2011 [...] 10/30/2015 Ot 781.2 ABNORMALITY OF GAIT 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, [place] E GENERAL CLAIMS AGENT Ot 729.81 SWELLING OF LIMB 05/16/2017 Ot 724.02 SPINAL STENOSIS, LUMBAR REG, W/OUT NEURO 05/16/2017 Ot 781.2 ABNORMALITY OF GAIT 05/16/2017 [place] GALVAN E GENERAL CLAIMS AGENT Ot 729.81 SWELLING OF LIMB 06/03/2017 LUKE DO ANURADHA K Ot E11.40 TYPE 2 DIABETES MELLITUS WITH DIABETIC N 06/03/2017 LUKE DO ANURADHA K Ot E11.649 TYPE 2 DIABETES MELLITUS WITH HYPOGLYCEM 06/03/2017 LUKE DO ANURADHA K Ot E16.2 HYPOGLYCEMIA, UNSPECIFIED 06/03/2017 LUKE DO, ANURADHA K Ot E78.00 PURE HYPERCHOLESTEROLEMIA, UNSPECIFIED 06/03/2017 LUKE DO ANURADHA K Ot F32.9 MAJOR DEPRESSIVE DISORDER, SINGLE EPISOD 06/03/2017 LUKE DO, ANURADHA K Ot F41.9 ANXIETY DISORDER, UNSPECIFIED 06/03/2017 LUKE DO ANURADHA K Ot G25.81 RESTLESS LEGS SYNDROME 06/03/2017 LUKE DO ANURADHA K Ot I10 ESSENTIAL (PRIMARY) HYPERTENSION 06/03/2017 LUKE DO ANURADHA K Ot N39.0 URINARY TRACT INFECTION, SITE NOT SPECIF 06/03/2017 LUKE DO ANURADHA K Ot Z79.84 PRODUCT DEMONSTRATOR (CURRENT) USE OF ORAL HYPOGLYC 06/03/2017 LUKE DO ANURADHA K Ot Z87.448 PERSONAL HISTORY OF OTHER DISEASES OF UR 06/03/2017 LUKE PINEDA ANURADHA K Ot Z98.84 BARIATRIC SURGERY STATUS 06/05/2017 LUKE PINEDA ANURADHA K Ot E11.40 TYPE 2 DIABETES MELLITUS WITH DIABETIC N 06/05/2017 LUKE DO ANURADHA K Ot E11.649 TYPE 2 DIABETES MELLITUS WITH HYPOGLYCEM 06/05/2017 LUKE DO ANURADHA K Ot E16.2 HYPOGLYCEMIA, UNSPECIFIED 06/05/2017 LUKE DO, ANURADHA K Ot E78.00 PURE HYPERCHOLESTEROLEMIA, UNSPECIFIED 06/05/2017 LUKE DO, ANURADHA K Ot F32.9 MAJOR DEPRESSIVE DISORDER, SINGLE EPISOD 06/05/2017 LUKE DO, ANURADHA K Ot F41.9 ANXIETY DISORDER, UNSPECIFIED 06/05/2017 LUKE DO ANURADHA K Ot G25.81 RESTLESS LEGS SYNDROME 06/05/2017 ANURADHA BUTLER DO Ot I10 ESSENTIAL (PRIMARY) HYPERTENSION 06/05/2017 ANURADHA BUTLER DO Ot N39.0 URINARY TRACT INFECTION, SITE NOT SPECIF 06/05/2017 ANURADHA BUTLER DO Ot Z79.84 PRODUCT DEMONSTRATOR (CURRENT) USE OF ORAL HYPOGLYC 06/05/2017 ANURADHA BUTLER DO Ot Z87.448 PERSONAL HISTORY OF OTHER DISEASES OF UR 06/05/2017 ANURADHA BUTLER DO Ot Z98.84 BARIATRIC SURGERY STATUS Procedures Code Description Performed By Performed On [facility]AN[facility] CYST-ASP/INJ 12/25/2011 General S Jake Baez 12/25/2011 71629 A1C (IN-HOUSE) 12/25/2011 30112 URINE DRUG SCREEN (IN-HOUSE ) 12/25/2011 53769 A1C (IN-HOUSE) 04/01/2012 07649 URINE DRUG SCREEN (IN-HOUSE ) 04/01/2012 84856 MRI SPINE (LUMBAR) W/O CONTRAST 04/01/2012 40370 THERAPUTIC INJ SQ/IM 05/16/2012 J1885 TORADOL INJ 05/16/2012 J2930 SOLUMEDROL INJ 05/16/2012 Physical Physical Therapy, Via [facility] 05/29/2012 54907 ROUTINE VENIPUNCTURE 09/02/2012 55358 MICRO ALBUMIN-IN HOUSE 09/02/2012 78702 A1C (IN-HOUSE) 09/02/2012 66243 GLUCOSE FINGER STICK 09/02/2012 04781 CMP 09/02/2012 03373 LIPID PANEL 09/02/2012 55578 MICROALBUMIN 09/02/2012 40095 CBC 09/02/2012 68344 A1C (IN-HOUSE) 12/31/2012 87859 ROUTINE VENIPUNCTURE 02/19/2013 18324 HEMOGLOBIN (IN-HOUSE) 02/19/2013 ANEMIAANA ANEMIA ANALYZER 02/19/2013 IRGROUP IRON GROUP (Iron,TIBC, Ferritin) 02/19/2013 61878 IRON SERUM 02/19/2013 09628 IRON BNDNG CAP 02/19/2013 24999 FERRITIN 02/19/2013 [id number] IMMATURE PLATELET FRACTION (RESULT ONLY) 02/20/2013 89658 CBC 02/20/2013 78436 RETICULOCYTE COUNT 02/20/2013 [id number] HEMATOLOGY OTHER REPORT 02/20/2013 76542 XRAY TIBULA/FIBULA RIGHT 03/18/2013 66352 A1C (IN-HOUSE) 06/18/2013 70006 HEMOGLOBIN (IN-HOUSE) 06/18/2013 66656 MICRO ALBUMIN-IN HOUSE 09/17/2013 69264 A1C (IN-HOUSE) 09/17/2013 54658 A1C (IN-HOUSE) 12/10/2013 16942 ROUTINE VENIPUNCTURE 03/15/2014 59372 A1C (IN-HOUSE) 03/15/2014 53990 LIPID PANEL 03/15/2014 93808 CBC 03/15/2014 [id number] GFR CALC (RESULT ONLY) 03/15/2014 90458 CMP 03/15/2014 08698 TSH 03/15/2014 95699 A1C (IN-HOUSE) 06/14/2014 42636 US VENOUS DOPPLER (DVT EVAL ) 06/14/2014 Nicolas Palafox 06/14/2014 Results Test Result Range Complete urinalysis [...] culture - 10/30/15 18:15 Bacterial urine culture [id number] NRG COLONY COUNT >100,000/ML NRG FTX;REPORTABLE SENSITIVITY [...] culture - 05/16/17 14:08 Bacterial urine culture [id number] NRG COLONY COUNT 10,000/ML - 100,000/ML NRG [...] test by minimum inhibitory concentration - NRG Complete blood count (CBC) with automated white blood cell (WBC) differential - 06/03/17 09:15 Blood leukocytes automated count (number/volume) 10.5 10*3/uL 4.3-11.0 Blood erythrocytes automated count (number/volume) 4.93 10*6/uL 4.35-5.85 Venous blood hemoglobin measurement (mass/volume) 13.9 g/dL 11.5-16.0 Blood hematocrit (volume fraction) 42 % 35-52 Automated erythrocyte mean corpuscular volume 85 [foz_us] 80-99 Automated erythrocyte mean corpuscular hemoglobin (mass per erythrocyte) 28 pg 25-34 Automated erythrocyte mean corpuscular hemoglobin concentration measurement ( mass/volume) 33 g/dL 32-36 Automated erythrocyte distribution width ratio 14.9 % 10.0-14.5 Automated blood platelet count (count/volume) 310 10*3/uL 130-400 Automated blood platelet mean volume measurement 9.4 [foz_us] 7.4-10.4 Automated blood neutrophils/100 leukocytes 82 % 42-75 Automated blood lymphocytes/100 leukocytes 14 % 12-44 Blood monocytes/100 leukocytes 4 % 0-12 Automated blood eosinophils/100 leukocytes 1 % 0-10 Automated blood basophils/100 leukocytes 0 % 0-10 Blood neutrophils automated count (number/volume) 8.5 10*3 1.8-7.8 Blood lymphocytes automated count (number/volume) 1.4 10*3 1.0-4.0 Blood monocytes automated count (number/volume) 0.4 10*3 0.0-1.0 Automated eosinophil count 0.1 10*3/uL 0.0-0.3 Automated blood basophil count (count/volume) 0.0 10*3/uL 0.0-0.1 Capillary blood glucose measurement by glucometer (mass/volume) - 06/03/17 09: 15 Capillary blood glucose measurement by glucometer (mass/volume) 60 mg/dL 70-110 Comprehensive metabolic panel - 06/03/17 09:15 Serum or plasma sodium measurement (moles/volume) 137 mmol/L 135-145 Serum or plasma potassium measurement (moles/volume) 3.9 mmol/L 3.6-5.0 Serum or plasma chloride measurement (moles/volume) 102 mmol/L 98-107 Carbon dioxide 27 mmol/L 21-32 Serum or plasma anion gap determination (moles/volume) 8 mmol/L 5-14 Serum or plasma urea nitrogen measurement (mass/volume) 8 mg/dL 7-18 Serum or plasma creatinine measurement (mass/volume) 0.75 mg/dL 0.60-1.30 Serum or plasma urea nitrogen/creatinine mass ratio 11 NRG Serum or plasma creatinine measurement with calculation of estimated glomerular filtration rate > NRG Serum or plasma glucose measurement (mass/volume) 63 mg/dL 70-105 Serum or plasma calcium measurement (mass/volume) 10.2 mg/dL 8.5-10.1 Serum or plasma total bilirubin measurement (mass/volume) 0.5 mg/dL 0.1-1.0 Serum or plasma alkaline phosphatase measurement (enzymatic activity/volume) 62 U/L 40-136 Serum or plasma aspartate aminotransferase measurement (enzymatic activity/ volume) 48 U/L 5-34 Serum or plasma alanine aminotransferase measurement (enzymatic activity/volume ) 55 U/L 0-55 Serum or plasma protein measurement (mass/volume) 8.2 g/dL 6.4-8.2 Serum or plasma albumin measurement (mass/volume) 4.9 g/dL 3.2-4.5 Complete urinalysis with reflex to culture - 06/03/17 09:30 Urine color determination YELLOW NRG Urine clarity determination CLEAR NRG Urine pH measurement by test strip 5 5-9 Specific gravity of urine by test strip 1.015 1.016- 1.022 Urine protein assay by test strip, semi-quantitative NEGATIVE NEGATIVE Urine glucose detection by automated test strip NEGATIVE NEGATIVE Erythrocytes detection in urine sediment by light microscopy 1+ NEGATIVE Urine ketones detection by automated test strip NEGATIVE NEGATIVE Urine nitrite detection by test strip NEGATIVE NEGATIVE Urine total bilirubin detection by test strip NEGATIVE NEGATIVE Urine urobilinogen measurement by automated test strip (mass/volume) NORMAL NORMAL Urine leukocyte esterase detection by dipstick 2+ NEGATIVE Automated urine sediment erythrocyte count by microscopy (number/high power field) [HPF] NRG Automated urine sediment leukocyte count by microscopy (number/high power field ) [HPF] NRG Bacteria detection in urine sediment by light microscopy NEGATIVE NRG Squamous epithelial cells detection in urine sediment by light microscopy 2-5 NRG Crystals detection in urine sediment by light microscopy NONE NRG Casts detection in urine sediment by light microscopy NONE NRG Mucus detection in urine sediment by light microscopy NEGATIVE NRG Complete urinalysis with reflex to culture NO NRG Capillary blood glucose measurement by glucometer (mass/volume) - 06/03/17 10: 22 Capillary blood glucose measurement by glucometer (mass/volume) 86 mg/dL 70-110 CULTURE, URINE - 06/06/17 09:32 CULTURE, URINE, ROUTINE SEE NOTE NRG Encounters ACCT No. Visit Date/Time Discharge Status Pt. Type Provider Facility Loc./Unit Complaint [id number] 06/14/2014 09:33:00 06/14/2014 23:59:59 CLS Outpatient JOSE LUIS SOLO DO [id number] 05/28/2014 11:33:00 05/28/2014 23:59:59 CLS Outpatient GEORGIA GALVAN APRN [id number] 03/15/2014 08:06:00 03/15/2014 23:59:59 CLS Outpatient JOSE LUIS SOLO DO [id number] 02/10/2014 15:44:00 02/10/2014 23:59:59 CLS Outpatient JOSE LUIS SOLO DO [id number] 12/10/2013 09:37:00 12/10/2013 23:59:59 CLS Outpatient GEORGIA GALVAN APRN [id number] 09/17/2013 09:00:00 09/17/2013 23:59:59 CLS Outpatient JOSE LUIS SOLO DO [id number] 07/24/2013 10:33:00 07/24/2013 23:59:59 CLS Outpatient JOSE LUIS SOLO DO [id number] 06/18/2013 08:16:00 06/18/2013 23:59:59 CLS Outpatient GEORGIA GALVAN APRN [id number] 03/16/2013 12:10:00 03/16/2013 23:59:59 [facility] [id number] 03/16/2013 08:44:00 03/16/2013 23:59:59 CLS Outpatient JOSE LUIS SOLO DO [id number] 02/19/2013 10:15:00 02/19/2013 23:59:59 CLS Outpatient GEORGIA GALVAN APRN [id number] 02/04/2013 14:09:00 02/04/2013 23:59:59 CLS Outpatient JOSE LUIS SOLO DO [id number] 12/31/2012 08:36:00 12/31/2012 23:59:59 CLS Outpatient JOSE LUIS SOLO DO [id number] 05/29/2012 15:48:00 05/29/2012 23:59:59 CLS Outpatient [id number] 05/16/2012 15:27:00 05/16/2012 23:59:59 CLS Outpatient SKIP SAMANTHAMANNY [id number] 04/01/2012 14:23:00 04/01/2012 23:59:59 [place] [id number] 12/25/2011 14:23:00 12/25/2011 23:59:59 CLS Outpatient MARITZA NICOLE MD [id number] 12/25/2011 14:23:00 12/25/2011 23:59:59 CLS Outpatient MARITZA NICOLE MD [id number] 09/30/2012 15:14:00 Document Registration [id number] 09/05/2012 09:36:00 Document Registration [id number] 09/02/2012 09:00:00 Document Registration [id number] 08/02/2012 00:00:00 Document Registration [id number] 06/24/2012 14:54:00 Document Registration [id number] 06/17/2014 05:26:16 ACT Document Registration [id number] 07/11/2017 09:20:00 07/11/2017 23:59:59 CLS Outpatient CATRACHITA MOLINA APRN [facility] [id number] 06/06/2017 08:20:00 Document Registration [id number] 12/31/2016 08:00:00 Document Registration [id number] 06/03/2017 09:07:00 06/03/2017 10:25:00 DIS Emergency ANURADHA BUTLER DO [facility] ER BS ISSUES [id number] 05/16/2017 12:33:00 05/16/2017 15:05:00 DIS Emergency RICK SAMPSON APRN [facility] ER POSS STROKE [id number] 10/30/2015 18:28:00 10/30/2015 19:42:00 DIS Emergency LUKE DOANURADHA [facility] ER PAIN URINATING [id number] 08/18/2014 15:57:00 08/18/2014 23:59:59 CLS Preadmit JOSE BILLINGS MD [facility] REHAB [id number] 06/16/2014 13:27:00 06/16/2014 23:59:59 CLS Outpatient GEORGIA GALVAN APRN [facility] RAD REDNESS,SWELLING [id number] 07/11/2013 12:09:00 07/11/2013 14:49:00 DIS Emergency LUKE DOANURADHA [facility] ER DIZZINESS L LEG PAIN [id number] 05/08/2013 10:45:00 05/22/2013 11:54:00 DIS Outpatient JOSE BILLINGS MD [facility] REHAB S/P LUMBAR FUSION [id number] 07/02/2012 12:15:00 07/04/2012 12:22:00 DIS Outpatient MARITZA NICOLE MD [facility] REHAB L LEG RADICULOPATHY ;LUMBAR RADICULOPATHY [id number] 09/20/2017 09:00:00 PEN [facility]read[facility] [id number] 09/18/2017 05:59:00 ACT Outpatient PAOLA ESCAMILLA MD [facility] PREOP CATARACT RIGHT EYE [id number] 06/16/2014 13:32:00 Document Registration [id number] 05/14/2014 12:44:00 Document Registration [id number] 04/03/2012 13:04:00 Document Registration [id number] 09/04/2011 15:01:00 Document Registration [id number] 12/26/2010 13:39:00 Document Registration [id number] 01/31/2010 14:34:00 Document Registration [id number] 12/06/2009 14:41:00 Document Registration [id number] 11/30/2009 07:25:00 Document Registration [id number] 11/18/2009 10:09:00 Document Registration [id number] 18:35:00 Document Registration [id number] 09/08/2009 07:33:00 Document Registration [id number] 09/07/2009 07:33:00 Document Registration [id number] 08/31/2009 08:48:00 Document Registration
[2017-09-20 06:55] VITALS: BP 146/81
[2017-09-20] MEDS: TETRACAINE 0.5% OPHTH SOLN 4 ML BTL (SINGLE DOSE ONLY) OU PRN ×4 (07:01→07:13)
[2017-09-20] MEDS: CYCLOPENTOLATE 1% (CYCLOGYL) 2 ML DROPS OP SCH ×3 (07:05→07:13)
[2017-09-20] MEDS: PHENYLEPHRINE 10% OPHTH (NEO-SYN) 5 ML BTL OU SCH ×3 (07:05→07:13)
[2017-09-20] MEDS ORDERED: MIDAZOLAM 2 MG/2 ML (VERSED) VIAL ONE (07:44)
--- NOTE | 2017-09-20 07:50 | Ophthalmologist Pre-Op Note ---
Pre-Operative Progress Note H&P Reviewed The H&P was reviewed, patient examined and no changes noted. Date H&P Reviewed: Sep 20, 2017 Time H&P Reviewed: 07:49 Pre-Op Dx Cataract, Right Eye PAOLA ESCAMILLA MD Sep 20, 2017 07:49
--- NOTE | 2017-09-20 08:12 | Ophthalmology Operative Report ---
Cataract removal/placement IOL PREOPERATIVE DIAGNOSIS: Cataract Right Eye POSTOPERATIVE DIAGNOSIS: Cataract Right Eye PROCEDURE: Cataract removal and placement of posterior chamber implant, right eye SURGEON: Polo Escamilla ANESTHESIA: Topical with sedation COMPLICATIONS: None ESTIMATED BLOOD LOSS: Minimal DESCRIPTION OF PROCEDURE: After proper informed consent was obtained, the patient, a 61 female, was taken to the Operating Room and the right eye was anesthetized with tetracaine. The right eye was then prepped and draped in the usual manner. A wire lid speculum was placed. A paracentesis was made at the left hand position. Preservative free lidocaine was injected into the anterior chamber followed by viscoelastic. A clear corneal incision was made in the temporal position. A capsulorrhexis was preformed and the central nuclear and cortical material were removed. The posterior capsule was polished and Christian 23.5 [id number] IOL was placed into the capsular bag. The residual viscoelastic was aspirated and balanced saline solution was injected into the anterior chamber. Vancomycin was injected into the anterior chamber. The wound was checked and found to be water tight. The patient tolerated the procedure well without complications. POLO ESCAMILLA MD Sep 20, 2017 08:12
[2017-09-20 08:20] VITALS: BP 140/80
--- NOTE | 2017-09-20 09:28 | Anesthesia-General Post-Op ---
MAC Patient Condition Mental Status/LOC: Same as Preop Cardiovascular: Satisfactory Nausea/Vomiting: Absent Respiratory: Satisfactory Pain: Controlled Complications: Absent Post Op Complications Complications None Follow Up Care/Instructions Patient Instructions None needed. Anesthesiology Discharge Order Discharge Order Patient was seen after the procedure and was doing well, no complaints, stable vital signs, no apparent adverse anesthesia problems. LIANET JOHNS DO Sep 20, 2017 09:28
== END 2017-09-20 08:20 | disposition home or self-care (01) ==
LOC: SDC 06:24
PROVIDERS: ATTEND Specialist
DX: E11.36 Type 2 diabetes mellitus with diabetic cataract (principal); I10 Essential (primary) hypertension; Z79.4 Long term (current) use of insulin
CPT/HCPCS: 82962

== ENCOUNTER → 2017-10-08 | Outpatient (CLI) | payer MEDICARE | END | disposition home or self-care (01) | LOC: PREOP 05:39 | PROVIDERS: ATTEND Specialist | DX: Z01.818 Encounter for other preprocedural examination (principal) ==

== ENCOUNTER 2017-10-11 05:53 | Day surgery (SDC) | payer MEDICARE ==
[~2017-10-11] VITALS: Ht 165.1 cm; Wt 77.1 kg
--- OUTSIDE RECORDS SUMMARY | 2017-10-11 06:02 | XMS REPORT ---
Author Author CATRACHITA MOLINA [facility] Address [address] [place] [address] Care Team Providers Care Driver Name Role Phone CATRACHITA MOLINA Unavailable PROBLEMS Type Condition ICD9-CM Code EDT66-SR Code Onset Dates Condition Status SNOMED Code Problem RLS (restless legs syndrome) G25.81 Active 87235673 Problem Encounter for immunization Z23 Active 065038542 Problem Essential hypertension I10 Active 48557363 Problem Diabetes type 2, controlled E11.9 Active 57507039 Problem Diabetic polyneuropathy associated with type 2 diabetes mellitus E11.42 Active 20343645 Problem Other chronic pain G89.29 Active 96060605 Problem Hypoglycemia E16.2 Active 967913744 Problem Reactive depression F32.9 Active 72989827 Problem Type 2 diabetes mellitus with hyperglycemia E11.65 Active [id number] Problem Spinal stenosis, unspecified spinal region M48.00 Active 80115420 Problem Type 2 diabetes mellitus with other specified complication E11.69 Active 45470953408758 Problem Hyperlipidemia, unspecified E78.5 Active 57166585 ALLERGIES No Information ENCOUNTERS Encounter Location Date Diagnosis [facility] [id number], [place] [id number] Oct, [facility] [id number], [place] [id number] Sep, Diabetic polyneuropathy associated with type 2 diabetes mellitus E11.42 [facility] [address]005[address], [place] [address] Sep, [facility] [id number] [place] [address] [id number] Sep, Spinal stenosis, unspecified spinal region M48.00 [facility] [address]005[address] [address] Aug, [facility] [id number] [place] [address] [id number] Aug, Spinal stenosis, unspecified spinal region M48.00 [facility] [id number] [place] [address] [id number] Aug, Spinal stenosis, unspecified spinal region M48.00 [facility] [id number] [place] [address] [id number] July, [facility] [id number] [place] [address] [id number] July, Diabetic polyneuropathy associated with type 2 diabetes mellitus E11.42 ; Type 2 diabetes mellitus with hyperglycemia E11.65 ; RLS (restless legs syndrome ) G25.81 and Essential hypertension I10 [facility] [id number] [place] [address] [id number] July, Spinal stenosis, unspecified spinal region M48.00 [facility] [id number] [place] [address] [id number] July, [facility] [id number] [place] [address] [id number] Jun, Type 2 diabetes mellitus with other specified complication E11.69 [facility] [id number] [place] [address] [id number] Jun, Spinal stenosis, unspecified spinal region M48.00 [facility] [id number] [place] [address] [id number] Jun, Hypoglycemia E16.2 [facility] [id number] [place] [address] [id number] May, Hypoglycemia E16.2 ; Acute cystitis with hematuria N30.01 and Essential hypertension I10 [facility] [address]00565100[place], [place] [address] May, [facility] [id number] [place] [address] [id number] May, Spinal stenosis, unspecified spinal region M48.00 [facility] [id number], [place] [id number] May, Reactive depression F32.9 [facility] [id number] [place] [address] [id number] May, [facility] [address] [id number][place] [id number] Apr, [facility] [address] [address] [id number][place] [id number] Apr, [facility] [address] [id number], [place] [id number] Apr, [facility] [address] [id number], [place] [id number] Apr, [facility] [address] [id number], [place] [address] Apr, Spinal stenosis, unspecified spinal region M48.00 [facility] [address] [id number], [place] [id number] Apr, Type 2 diabetes mellitus with other specified complication E11.69 ; Spinal stenosis, unspecified spinal region M48.00 ; Reactive depression F32.9 and Essential hypertension I10 [facility] [address] [facility] [address] [id number], [place] [id number] Apr, [facility] [address] [id number], [place] [id number] Mar, Spinal stenosis, unspecified spinal region M48.00 [facility] [address] [id number], [place] [id number] Feb, Acute non-recurrent maxillary sinusitis J01.00 and Essential hypertension I10 [facility] [address] [id number], [place] [id number] Feb, Spinal stenosis, unspecified spinal region M48.00 [facility] [address] [id number], [place] [id number] Feb, Type 2 diabetes mellitus with other specified complication E11.69 [facility] [id number] [place] [address] [id number] Feb, Type 2 diabetes mellitus with other specified complication E11.69 and Essential hypertension I10 [facility] [address] [id number], [place] [id number] Feb, [facility] [address] [id number] [place] [address] [id number] Feb, [facility] [place] [address] [id number][place] [id number] Jan, Spinal stenosis, unspecified spinal region M48.00 [facility] [id number], [place] [id number] Jan, Diabetic polyneuropathy associated with type 2 diabetes mellitus E11.42 [facility] [place] [id number], [place] [id number] Jan, Diabetic polyneuropathy associated with type 2 diabetes mellitus E11.42 [facility] [place] [id number], [place] [id number] Jan, Type 2 diabetes mellitus with hyperglycemia E11.65 ; Type 2 diabetes mellitus with other specified complication E11.69 ; Spinal stenosis, unspecified spinal region M48.00 and Essential hypertension I10 [facility] [place] [id number] [place] [address] [id number] Jan, Diabetic polyneuropathy associated with type 2 diabetes mellitus E11.42 [facility] [place] [id number], [place] [id number] Dec, [facility] [place] [id number] [place] [address] [id number] Dec, Diabetic polyneuropathy associated with type 2 diabetes mellitus E11.42 ; Type 2 diabetes mellitus with other specified complication E11.69 ; Hyperlipidemia, unspecified E78.5 ; Thyroid disorder E07.9 and Thyroid disorder screening Z13.29 [facility] [place] [id number], [place] [id number] Dec, Diabetic polyneuropathy associated with type 2 diabetes mellitus E11.42 [facility] [address] [id number] [address] Dec, Diabetic polyneuropathy associated with type 2 diabetes mellitus E11.42 [facility] [place] [id number], [place] [id number] Dec, Spinal stenosis, unspecified spinal region M48.00 [facility] [place] [id number], [place] [id number] Dec, [facility] [place] [address] [id number] [id number] 18 Nov, 2016 Diabetic polyneuropathy associated with type 2 diabetes mellitus E11.42 [facility] [id number] [place] [address] [id number] 15 Nov, 2016 Other chronic pain G89.29 [facility] [id number], [place] [id number] 14 Nov, 2016 Spinal stenosis, unspecified spinal region M48.00 [facility] [id number] [place] [address] [id number] Oct, Spinal stenosis, unspecified spinal region M48.00 ; Essential hypertension I10 ; RLS (restless legs syndrome) G25.81 and Diabetic polyneuropathy associated with type 2 diabetes mellitus E11.42 [facility] [id number] [place] [address] [id number] Oct, Spinal stenosis, unspecified spinal region M48.00 [facility] [id number] [place] [address] [id number] Sep, Diabetic polyneuropathy associated with type 2 diabetes mellitus E11.42 ; RLS (restless legs syndrome) G25.81 ; Spinal stenosis, unspecified spinal region M48.00 and Essential hypertension I10 [facility] [id number], [place] [id number] 14 Sep, 2016 [facility] [id number] [place] [address] [id number] Sep, Spinal stenosis, unspecified spinal region M48.00 [facility] [id number], [place] [id number] Sep, [facility] [id number], [place] [id number] Aug, Spinal stenosis, unspecified spinal region M48.00 [facility] [address]00565[address], [place] [address] July, [facility] [id number], [place] [id number] July, Spinal stenosis, unspecified spinal region M48.00 [facility] [id number] [place] [address] [id number] Jun, Type 2 diabetes mellitus with hyperglycemia E11.65 [facility] [address] [id number] [place] [id number] Jun, Spinal stenosis, unspecified spinal region M48.00 [facility] [address] [id number] [place] [id number] May, Spinal stenosis, unspecified spinal region M48.00 [facility] [address] [id number] [place] [id number] Apr, Spinal stenosis, unspecified spinal region M48.00 [facility] [address] [id number], [place] [address] Mar, [facility] [address] [id number], [place] [id number] Mar, Type 2 diabetes mellitus with hyperglycemia E11.65 ; RLS (restless legs syndrome) G25.81 and Spinal stenosis, unspecified spinal region M48.00 [facility] [address]00565[address], [place] [address]- 27[address] Mar, [facility] [address] [id number], [place] [id number] Mar, [facility] [address] [id number], [place] [id number] Mar, [facility] [address] [id number], [place] [id number] Feb, [facility] [address]00565100[place], [place] [address] Feb, [facility] [address] [id number], [place] [id number] Feb, [facility] [address] [id number], [place] [id number] Feb, [facility] [id number] [place] [address] 262388- 8061 Feb, [facility] [address]00565[address], [place] 111[place]- 7[address] Feb, [facility] [address] [id number] [place] [address] [id number] Jan, [facility] [id number], [place] [id number] Dec, Diabetic polyneuropathy associated with type 2 diabetes mellitus E11.42 ; Other chronic pain G89.29 ; Essential hypertension I10 and Encounter for immunization Z23 [facility] [id number], [place] [id number] Dec, [facility] [id number] [place] [address] 63199 2546 Nov, [facility] [id number] [place] [address] [id number] Nov, [facility] [id number] [place] [address] [id number] Nov, Diabetes type 2, controlled E11.9 [facility] [id number] [place] [address] [id number] Nov, Diabetes type 2, controlled E11.9 ; Other chronic pain G89.29 ; Essential hypertension I10 ; Diabetic polyneuropathy associated with type 2 diabetes mellitus E11.42 and RLS (restless legs syndrome) G25.81 [facility] [id number] [place] [address] 27196- 8812 Nov, [facility] [id number] [place] [address] [id number] Oct, [facility] [id number], [place] [id number] Oct, [facility] [address] [id number] [place] [address] [id number] Oct, [facility] [id number] [place] [address] 98408- 1211 Oct, [facility] [place] [id number] [place] [address] [id number] Sep, [facility] [place] [id number] [place] [address] [id number] Sep, [facility] [id number] [place] [address] 25816425- 7684 Sep, Dental examination Z01.20 [facility] [address] [facility] [id number], [place] [address]- [address] Aug, [facility] [place] [id number] [place] [address] [id number] Aug, [facility] [address] [facility] [id number] 3340[place]- 2730 Aug, [facility] [id number] [place] [address] 03254- 5310 July, [facility] [address] [facility] [id number], [place] [address]- 0249 July, [facility] [address] [id number], [place] [address]- 2770 July, [facility] [place] [id number] [place] [address] [id number] July, [facility] [place] [address] [id number] [place] [address] [id number] July, [facility] [place] [address] [id number] [place] [address] [id number] July, [facility] [address]00565100[place], [place] [address]- 3[address] July, [facility] [place] [id number] [place] [address] [id number] Jun, Diabetes type 2, controlled E11.9 [facility] [place] [address] [id number] [place] [address] [id number] Jun, [facility] [address] [id number] [place] [address] [id number] May, Diabetes type 1, uncontrolled E10.65 [facility] [id number] [place] [address] [id number] May, [facility] [address] [id number] [place] [address] [id number] Apr, [facility] [address] [id number] [place] [address] [id number] Apr, [facility] [place] [address] [id number] [place] [address] [id number] Mar, [facility] [place] [address] [facility] [id number], [place] [id number] Mar, [facility] [place] [id number], [place] [id number] Mar, [facility] [place] [id number], [place] [id number] Mar, Diabetes type 1, uncontrolled E10.65 [facility] [place] [id number], [place] 721106053 Feb, [facility] [place] [id number], [place] [id number] Feb, [facility] [place] [id number], [place] [id number] Feb, [facility] [address]00565100[place], [place] [id number] Jan, [facility] [id number], [place] 065537532 Jan, Dysuria R30.0 and Acute cystitis with hematuria N30.01 [facility] [address] [facility] [id number], [place] [id number] Jan, [facility] [id number], [place] 442142466 Dec, Gastroenteritis K52.9 and Headache, unspecified headache type R51 [facility] [id number], [place] [id number] Dec, [facility] [id number], [place] [id number] Dec, Chronic back pain 724.5 [facility] [address] [facility] [id number], [place] [id number] Dec, [facility] [id number], [place] [id number] Nov, Chronic back pain 724.5 and Diabetes mellitus without mention of complication, type II or unspecified type, uncontrolled 250.02 [facility] [id number], [place] 604863074 Nov, [facility] [address] [facility] [id number], [place] [id number] Oct, [facility] [address] [id number], [place] [id number] Sep, Diabetes mellitus without mention of complication, type II or unspecified type, uncontrolled 250.02 and Urinary tract infection 599.0 [facility] [id number], [place] [id number] July, [facility] [id number] [place] [address] 00629- 2546 Jun, [facility] [address]00565100[place], [place] [address]- 2546 Jun, [facility] [id number], [place] [id number] May, [facility] [address]00565100[place], [place] [address]- 2546 May, [facility] [id number], [place] [id number] May, [facility] [address]00565100[place], [place] [address]- 2546 May, [facility] [id number], [place] [id number] Mar, [facility] [address]00565100[place], [place] [address]- 1526 Mar, [facility] [address]00565100[place], [place] [address]- 2546 Mar, [facility] [address] [id number], [place] [id number] Mar, [facility] [id number], [place] [id number] Feb, [facility] [place] [facility] [address]00565100[place], [place] [address]- 2546 Feb, [facility] [address] [id number], [place] [id number] Feb, [facility] [address]00565100[place], [place] [address]- 9776 Feb, [facility] [place] [facility] [address] [facility] [id number], [place] [address]- 2626 Feb, [facility] [address] [facility] [id number], [place] [id number] Feb, [facility] [place] [address] [facility] [id number], [place] [id number] Feb, [facility] [place] [facility] [address] [facility] [id number], [place] [address]- 3166 Feb, [facility] [place] [facility] [address] [facility] [id number], [place] [address]- 5566 Feb, [facility] [address] [facility] [id number], [place] [id number] Jan, [facility] [place] [facility] [address] [facility] [id number], [place] [address]- 5676 Jan, [facility] [address] [facility] [id number], [place] [id number] Jan, [facility] [place] [facility] [address] [facility] [id number], [place] [address]- 7071 Jan, [facility] [address] [facility] [id number], [place] [id number] Dec, [facility] [place] [facility] [address] [facility] [id number], [place] [address]- 0797 Dec, [facility] [place] [facility] [address] [facility] [id number], [place] [address]- 9229 Dec, [facility] [place] [facility] [address] [facility] [id number], [place] [address]- 4756 Dec, [facility] [address] [facility] [id number], [place] [id number] Dec, [facility] [place] [facility] [address] [facility] [id number], [place] [address]- 2546 Dec, [facility] [address] [facility] [id number], [place] 010373705 Nov, [facility] [place] [facility] [address] [id number] [place] [address]- 1200 Nov, [facility] [address] [id number] [place] [id number] Oct, [facility] [place] [facility] [address] [id number] [place] [address]- 0616 Oct, [facility] [place] [facility] [address] [id number] [place] [address]- 1806 Sep, [facility] [address] [id number] [place] [id number] Sep, [facility] [address] [id number] [place] [id number] Aug, [facility] [place] [facility] [address] [facility] [id number] [place] [address] Aug, [facility] [address] [facility] [id number] [place] [id number] July, [facility] [place] [facility] [address] [facility] [id number] [place] [address] July, [facility] [address] [facility] [id number] [place] [id number] July, [facility] [place] [facility] [address] [facility] [id number] [place] [address] July, [facility] [place] [facility] [address] [facility] [id number], [place] [address] July, [facility] [place] [facility] [address] [facility] [id number], [place] [address] Jun, [facility] [address] [id number] [place] [id number] Jun, [facility] [address] [id number] [place] [id number] Jun, [facility] [place] [facility] [address] [facility] [id number] [place] [address] Jun, [facility] [place] [facility] [address] [facility] [id number] [place] [address] Jun, [facility] [address] [facility] [id number] [place] [address] May, [facility] [address] [facility] [id number] [place] [id number] Apr, [facility] [address] [facility] [id number], [place] [address] Apr, [facility] [address] [facility] [id number][place] [id number] Apr, [facility] [place] [facility] [address] [facility] [id number] [place] [address] Apr, [facility] [place] [facility] [address] [facility] [id number] [place] [address] Mar, [facility] [place] [facility] [address] [id number] [place] [address] Mar, [facility] [place] [facility] [address] [facility] [id number], [place] [address] Mar, [facility] [address] [id number] [place] [id number] Mar, [facility] [place] [facility] [address] [facility] [id number], [place] [address] Mar, [facility] [place] [facility] [address] [id number], [place] [address] Mar, [facility] [place] [facility] [address] [facility] [id number], [place] [address] Feb, [facility] [address] [facility] [id number][place] [id number] Feb, [facility] [place] [facility] [address] [facility] [id number] [place] [address] Feb, [facility] [address] [facility] [id number] [place], [place] [id number] Feb, [facility] [place] [facility] [address] [facility] [id number], [place] [address] Feb, [facility] [place] [address] [id number] [place] [id number] Feb, [facility] [address] [facility] [id number], [place] [address] Feb, [facility] [place] [address] [id number] [place] [id number] Jan, [facility] [address] [facility] [id number], [place] [address] Jan, [facility] [place] [facility] [address] [facility] [id number], [place] [address] Dec, [facility] [place] [address] [id number] [place] [id number] Dec, [facility] [address] [facility] [id number], [place] [address] Nov, [facility] [place] [address] [id number] [place] [id number] Oct, [facility] [place] [address] [id number][place] [address] Oct, [facility] [place] [address] [id number] [place] [id number] Sep, [facility] [address] [facility] [id number], [place] [address] Sep, [facility] [place] [address] [id number] [place] [id number] Sep, [facility] [place] [address] [id number] [place] [id number] Sep, [facility] [place] [address] [id number] [place] [id number] Sep, [facility] [place] [address] [id number] [place] [id number] Sep, [facility] [place] [address] [id number] [place] [address]33[address] Sep, [facility] [place] [facility] [address] [facility] [id number], [place] [address] Aug, [facility] [place] [address] [id number][place] [id number] Aug, [facility] [address] [facility] [id number], [place] [address] July, [facility] [place] [address] [id number] [place] [id number] July, [facility] [address] [facility] [id number], [place] [address] July, [facility] [place] [address] [id number] [place] [id number] Jun, [facility] [place] [address] [id number] [place] [id number] Jun, [facility] [place] [address] [id number] [place] [id number] Jun, [facility] [address] [id number], [place] [address] Jun, [facility] [place] [address] [id number][place] [id number] May, [facility] [place] [address] [id number] [place] [id number] May, [facility] [address]00565100[place], [place] [address] May, [facility] [place] [address] [facility] [id number][place] [id number] Apr, [facility] [address] [id number], [place] [address] Apr, [facility] [place] [address] [facility] [id number], [place] [id number] Apr, [facility] [place] [address] [id number] [place] [id number] Apr, [facility] [place] [facility] [address] [facility] [id number], [place] [address] Mar, [facility] [place] [address] [id number] [place] [id number] Mar, [facility] [place] [address] [id number][place] [id number] Mar, [facility] [place] [address] [id number] [place] [id number] Feb, [facility] [address] [facility] [id number], [place] [address] Feb, [facility] [place] [address] [id number] [place] [id number] Jan, [facility] [place] [address] [id number] [place] [id number] Jan, [facility] [address] [facility] [id number], [place] [address] Jan, [facility] [address] [facility] [id number], [place] [address] 2938 Jan, [facility] [place] [address] [id number], [place] [address]45181933 Jan, [facility] [address]00565100[place], [place] [address] Jan, [facility] [place] [address] [id number], [place] [id number] Dec, [facility] [address] [facility] [id number], [place] [address]- [address]42 Dec, [facility] [place] [address] [id number], [place] [id number] Dec, [facility] [address] [facility] [id number], [place] [address] Dec, [facility] [place] [address] [id number], [place] 123856398 Dec, [facility] [place] [address] [id number] [place] [id number] Nov, [facility] [place] [address] [id number] [place] [id number] Nov, [facility] [place] [address] [id number] [place] 974805011 Oct, [facility] [place] [address] [id number], [place] 615595588 Oct, [facility] [place] [address] [id number] [place] [id number] Sep, [facility] [place] [address] [id number] [place] 238466633 Sep, [facility] [place] [address] [id number] [place] [address]86 Sep, [facility] [place] [address] [id number] [place] [id number] Aug, [facility] [place] [address] [id number] [place] [id number] Aug, [facility] [place] [address] [id number] [place] 944106193 July, [facility] [place] [address] [id number] [place] 9[place]20718 July, [facility] [place] [address] [id number] [place] [address] July, [facility] [place] [address] [id number] [place] [id number] July, [facility] [address] [facility] [id number] [place] [address]- [address]185 Jun, [facility] [place] [address] [id number] [place] 312965199 Jun, [facility] [place] [address] [id number] [place] [id number] Jun, [facility] [place] [address] [id number] [place] [id number] Jun, [facility] [place] [address] [id number] [place] [id number] May, [facility] [place] [address] [id number] [place] 677743941 May, [facility] [place] [address] [id number] [place] 841213894 Apr, [facility] [place] [address] [id number] [place] [address]035824 Apr, [facility] [place] [address] [id number] [place] 830871996 Apr, [facility] [place] [address] [id number], [place] [id number] 07 Apr, 2011 [facility] [place] [address] [facility] [id number] [place] [id number] Apr, [facility] [place] [facility] [address] [facility] [id number], [place] [address]- [address]46 Apr, [facility] [place] [address] [facility] [id number] [place] [id number] Apr, [facility] [place] [address] [facility] [id number] [place] [id number] Apr, [facility] [place] [address] [facility] [id number] [place] [id number] Mar, [facility] [place] [facility] [address]00565100[place], [place] [address]- [address] Feb, [facility] [place] [facility] [id number] [place] [address]- 7106 Feb, [facility] [place] [facility] [id number] [place] [address]- 7419 Feb, [facility] [place] [facility] [address]00565100[place], [place] [address]- 2554 Feb, [facility] [place] [facility] [address]00565100[place], [place] [address]- [address] Jan, [facility] [place] [facility] [address]65[address], [place] [address]- [address] Jan, [facility] [place] [facility] [address]00565100[place], [place] [address]- 7825 Jan, [facility] [place] [facility] [address]00565[address], [place] [address]- 5588 Dec, [facility] [place] [facility] [address] [facility] [id number], [place] [address]- 60[address] Dec, [facility] [place] [facility] [address]65[address], [place] [address]- [address]17 Aug, [facility] [place] [facility] [address] [id number], [place] [address]- [address]91 16 Aug, 2010 [facility] [address] [id number] [place] [address]- 2041 30 Feb, 2010 [facility] [place] [facility] [address] [id number] [place] [address]- 7987 Feb, [facility] [place] [facility] [address] [facility] [id number] [place] [address]- 0806 Jan, [facility] [place] [facility] [address] [id number] [place] [address]- 0816 Jan, [facility] [place] [facility] [address] [facility] [id number] [place] [address], [place] [address]- 4384 Dec, [facility] [place] [facility] [address] [facility] [id number] [place] [address]- 2534 Dec, [facility] [address] [facility] [id number] [place] [address]- 9791 Dec, [facility] [place] [facility] [address] [facility] [id number] [place] [address]- 1087 May, [facility] [place] [facility] [address] [id number] [place] [address]- 8486 Mar, [facility] [place] [facility] [address] [id number] [place] [address]- 2788 Feb, [facility] [place] [facility] [address] [facility] [id number], [place] [address]- 9810 08 Feb, 2009 [facility] [place] [facility] [address] [facility] [id number], [place] [address]- 8121 Feb, [facility] [place] [facility] [address] [facility] [id number], [place] [address]- 1285 17 Jan, 2009 [facility] [place] [facility] [address] [facility] [id number] 936[place]- 7792 Jan, [facility] [place] [facility] [address] [facility] [id number], [place] [address]- 0663 Oct, [facility] [place] [facility] [address] [facility] [id number] [place] [address]- 9576 July, [facility] [address] [facility] [id number], [place] [address]- [address]159 Apr, [facility] [address] [facility] [id number], [place] [address]- 0638 Jan, [facility] [address] [facility] [id number], [place] [address]- 9589 Jan, IMMUNIZATIONS No Known Immunizations SOCIAL HISTORY Never Assessed REASON FOR VISIT Controlled Med Refill / Hydrocodone PLAN OF CARE VITAL SIGNS MEDICATIONS Medication Instructions Dosage Frequency Start Date End Date Duration Status Hydrocodone-Acetaminophen 7.5-325 MG Orally every 4-6 hrs PRN, Must last 28 days 1 tablet Jun, 0 days Active RESULTS No Results PROCEDURES [...] History surgeries, childbirth Hospitalization History [place]- Possible Stroke 05/16/2017
--- OUTSIDE RECORDS SUMMARY | 2017-10-11 06:02 | XMS REPORT ---
Author Author CATRACHITA MOLINA [facility] Address [address] [place] [address] Care Team Providers Care Ride Operator Name Role Phone CATRACHITA MOLINA Unavailable PROBLEMS Type Condition ICD9-CM Code UOZ83-EJ Code Onset Dates Condition Status SNOMED Code Problem RLS (restless legs syndrome) G25.81 Active 34136487 Problem Encounter for immunization Z23 Active 171911113 Problem Essential hypertension I10 Active 07120944 Problem Diabetes type 2, controlled E11.9 Active 87815272 Problem Diabetic polyneuropathy associated with type 2 diabetes mellitus E11.42 Active 83882148 Problem Other chronic pain G89.29 Active 72289588 Problem Hypoglycemia E16.2 Active 243091777 Problem Reactive depression F32.9 Active 80686992 Problem Type 2 diabetes mellitus with hyperglycemia E11.65 Active 271552837438605 Problem Spinal stenosis, unspecified spinal region M48.00 Active 16995364 Problem Type 2 diabetes mellitus with other specified complication E11.69 Active 88102034848470 Problem Hyperlipidemia, unspecified E78.5 Active 83229802 ALLERGIES No Information ENCOUNTERS Encounter Location Date Diagnosis [facility] [address] [facility] [id number][place] [id number] Oct, [facility] [id number], [place] [id number] Oct, Spinal stenosis, unspecified spinal region M48.00 [facility] [address] [id number][place] [address]740141 Sep, Diabetic polyneuropathy associated with type 2 diabetes mellitus E11.42 [facility] [address] [id number] [address] Sep, [facility] [address] [id number], [place] 768278123 Sep, Spinal stenosis, unspecified spinal region M48.00 [facility] [address]65[address] [address] Aug, [facility] [id number] [place] [address] [id number] Aug, Spinal stenosis, unspecified spinal region M48.00 [facility] [id number] [place] [address] [id number] Aug, Spinal stenosis, unspecified spinal region M48.00 [facility] [id number] [place] [address] [id number] July, [facility] [id number] [place] [address] [id number] July, Diabetic polyneuropathy associated with type 2 diabetes mellitus E11.42 ; Type 2 diabetes mellitus with hyperglycemia E11.65 ; RLS (restless legs syndrome ) G25.81 and Essential hypertension I10 [facility] [id number] [place] [address] [id number] July, Spinal stenosis, unspecified spinal region M48.00 [facility] [id number] [place] [address] [id number] July, [facility] [id number] [place] [address] [id number] Jun, Type 2 diabetes mellitus with other specified complication E11.69 [facility] [id number] [place] [address] [id number] Jun, Spinal stenosis, unspecified spinal region M48.00 [facility] [address] [id number] [id number] Jun, Hypoglycemia E16.2 [facility] [id number] [place] [address] [id number] May, Hypoglycemia E16.2 ; Acute cystitis with hematuria N30.01 and Essential hypertension I10 [facility] [address]00565100[place] [address] May, [facility] [id number] [place] [address] [id number] May, Spinal stenosis, unspecified spinal region M48.00 [facility] [id number] [place] [address] [id number] May, Reactive depression F32.9 [facility] [address] [id number], [place] [id number] May, [facility] [address] [id number], [place] [id number] Apr, [facility] [id number], [place] [id number] Apr, [facility] [address] [id number], [place] [id number] Apr, [facility] [address] [id number], [place] [id number] Apr, [facility] [address] [id number], [place] [id number] Apr, Spinal stenosis, unspecified spinal region M48.00 [facility] [address] [id number], [place] [id number] Apr, Type 2 diabetes mellitus with other specified complication E11.69 ; Spinal stenosis, unspecified spinal region M48.00 ; Reactive depression F32.9 and Essential hypertension I10 [facility] [address] [facility] [address] [id number], [place] [id number] Apr, [facility] [address] [id number], [place] [id number] Mar, Spinal stenosis, unspecified spinal region M48.00 [facility] [address] [id number], [place] [id number] Feb, Acute non-recurrent maxillary sinusitis J01.00 and Essential hypertension I10 [facility] [address] [id number], [place] [id number] Feb, Spinal stenosis, unspecified spinal region M48.00 [facility] [address] [id number], [place] [id number] Feb, Type 2 diabetes mellitus with other specified complication E11.69 [facility] [address] [id number], [place] [id number] Feb, Type 2 diabetes mellitus with other specified complication E11.69 and Essential hypertension I10 [facility] [address] [id number], [place] [id number] Feb, [facility] [address] [id number], [place] [id number] Feb, [facility] [id number], [place] [id number] Jan, Spinal stenosis, unspecified spinal region M48.00 [facility] [id number], [place] [id number] Jan, Diabetic polyneuropathy associated with type 2 diabetes mellitus E11.42 [facility] [address] [id number], [place] [id number] Jan, Diabetic polyneuropathy associated with type 2 diabetes mellitus E11.42 [facility] [id number], [place] [id number] Jan, Type 2 diabetes mellitus with hyperglycemia E11.65 ; Type 2 diabetes mellitus with other specified complication E11.69 ; Spinal stenosis, unspecified spinal region M48.00 and Essential hypertension I10 [facility] [id number], [place] [phone] Jan, Diabetic polyneuropathy associated with type 2 diabetes mellitus E11.42 [facility] [address] [id number], [place] [id number] Dec, [facility] [id number], [place] [id number] Dec, Diabetic polyneuropathy associated with type 2 diabetes mellitus E11.42 ; Type 2 diabetes mellitus with other specified complication E11.69 ; Hyperlipidemia, unspecified E78.5 ; Thyroid disorder E07.9 and Thyroid disorder screening Z13.29 [facility] [address] [id number], [place] [id number] Dec, Diabetic polyneuropathy associated with type 2 diabetes mellitus E11.42 [facility] [address]00565100[place] 24[address] Dec, Diabetic polyneuropathy associated with type 2 diabetes mellitus E11.42 [facility] [address] [id number], [place] [id number] Dec, Spinal stenosis, unspecified spinal region M48.00 [facility] [address] [id number], [place] [id number] Dec, [facility] [address] [id number], [place] [id number] 18 Nov, 2016 Diabetic polyneuropathy associated with type 2 diabetes mellitus E11.42 [facility] [address] [id number] [place] [id number] 15 Nov, 2016 Other chronic pain G89.29 [facility] [id number] [place] [address] [id number] 14 Nov, 2016 Spinal stenosis, unspecified spinal region M48.00 [facility] [address] [id number], [place] [id number] 16 Oct, 2016 Spinal stenosis, unspecified spinal region M48.00 ; Essential hypertension I10 ; RLS (restless legs syndrome) G25.81 and Diabetic polyneuropathy associated with type 2 diabetes mellitus E11.42 [facility] [id number] [place] [address] [id number] Oct, Spinal stenosis, unspecified spinal region M48.00 [facility] [address] [id number], [place] [id number] Sep, Diabetic polyneuropathy associated with type 2 diabetes mellitus E11.42 ; RLS (restless legs syndrome) G25.81 ; Spinal stenosis, unspecified spinal region M48.00 and Essential hypertension I10 [facility] [address] [id number], [place] [id number] 14 Sep, 2016 [facility] [address] [id number], [place] [id number] Sep, Spinal stenosis, unspecified spinal region M48.00 [facility] [address] [id number], [place] [id number] Sep, [facility] [address] [id number], [place] [id number] Aug, Spinal stenosis, unspecified spinal region M48.[address] [facility] [facility] [address]00565100[place] [address] July, [facility] [address] [id number], [place] [id number] July, Spinal stenosis, unspecified spinal region M48.00 [facility] [address] [id number] [place] [id number] Jun, Type 2 diabetes mellitus with hyperglycemia E11.65 [facility] [address] [id number] [place] [id number] Jun, Spinal stenosis, unspecified spinal region M48.00 [facility] [address] [id number], [place] [id number] May, Spinal stenosis, unspecified spinal region M48.00 [facility] [address] [id number], [place] [id number] Apr, Spinal stenosis, unspecified spinal region M48.[address] [facility] [facility] [id number] [place] [address] Mar, [facility] [address] [id number], [place] [id number] Mar, Type 2 diabetes mellitus with hyperglycemia E11.65 ; RLS (restless legs syndrome) G25.81 and Spinal stenosis, unspecified spinal region M48.00 [facility] [address]65[address] [address]- [address] Mar, [facility] [address] [id number], [place] [id number] Mar, [facility] [address] [id number], [place] [id number] Mar, [facility] [id number], [place] [id number] Feb, [facility] [address]00565100[place] [address]- 6[address] Feb, [facility] [address] [id number], [place] [id number] Feb, [facility] [address] [id number], [place] [id number] Feb, [facility] [address]00565100[place] 27315801- [address] Feb, [facility] [id number] [place] [address] 94696- 2546 Feb, [facility] [id number] [place] [address] [id number] Jan, [facility] [id number] [place] [address] [id number] Dec, Diabetic polyneuropathy associated with type 2 diabetes mellitus E11.42 ; Other chronic pain G89.29 ; Essential hypertension I10 and Encounter for immunization Z23 [facility] [id number] [place] [address] [id number] Dec, [facility] [id number] [place] [address] 40176 2546 Nov, [facility] [id number] [place] [address] [id number] Nov, [facility] [id number] [place] [address] [id number] Nov, Diabetes type 2, controlled E11.9 [facility] [id number] [place] [address] [id number] Nov, Diabetes type 2, controlled E11.9 ; Other chronic pain G89.29 ; Essential hypertension I10 ; Diabetic polyneuropathy associated with type 2 diabetes mellitus E11.42 and RLS (restless legs syndrome) G25.81 [id number] [place] [address] 14658 2546 Nov, [facility] [id number] [place] [address] [id number] Oct, [facility] [id number] [place] [address] [id number] Oct, [facility] [id number] [place] [address] [id number] Oct, [facility] [id number] [place] [address] 06226- 2546 Oct, [facility] [id number] [place] [address] [id number] Sep, [facility] [id number] [place] [address] [id number] Sep, [facility] [address] [facility] [id number] [address]- [address] Sep, Dental examination Z01.20 [facility] [address] [facility] [id number] [place] [address]- [address] Aug, [facility] [id number], [place] [id number] Aug, [facility] [address] [facility] [id number] [address]- [address] Aug, [facility] [address] [facility] [id number] [place] [address]- [address] July, [facility] [address] [facility] [id number] [place] [address]- [address] July, [facility] [address] [facility] [id number] [place] [address]- [address] July, [facility] [id number] [place] [address] [id number] July, [facility] [address] [id number] [place] [address] [id number] July, [facility] [address] [id number] [place] [address] [id number] July, [facility] [address] [facility] [id number] [place] [address]- 3[address] July, [facility] [address] [id number] [place] [address] [id number] Jun, Diabetes type 2, controlled E11.9 [facility] [address] [id number], [place] [id number] Jun, [facility] [id number] [place] [address] [id number] May, Diabetes type 1, uncontrolled E10.65 [facility] [id number] [place] [address] [id number] May, [facility] [id number] [place] [address] [id number] Apr, [facility] [address] [id number], [place] [id number] Apr, [facility] [id number], [place] [id number] Mar, [facility] [address] [id number], [place] [id number] Mar, [facility] [id number], [place] [id number] Mar, [facility] [id number] [place] [address] [id number] Mar, Diabetes type 1, uncontrolled E10.65 [facility] [id number], [place] [id number] Feb, [facility] [id number] [place] [address] [id number] Feb, [facility] [id number], [place] [id number] Feb, [address]00565100[place] [id number] Jan, [facility] [address] [facility] [id number], [place] [id number] Jan, Dysuria R30.0 and Acute cystitis with hematuria N30.01 [facility] [id number], [place] [id number] Jan, [facility] [id number], [place] [id number] Dec, Gastroenteritis K52.9 and Headache, unspecified headache type R51 [facility] [id number], [place] [id number] Dec, [facility] [address] [facility] [id number], [place] [id number] Dec, Chronic back pain 724.5 [facility] [id number], [place] [id number] Dec, [facility] [address] [facility] [id number], [place] [id number] Nov, Chronic back pain 724.5 and Diabetes mellitus without mention of complication, type II or unspecified type, uncontrolled 250.02 [facility] [address] [facility] [id number] [place] [id number] Nov, [facility] [address] [facility] [id number] [place] [id number] Oct, [facility] [address] [id number] [place] [id number] Sep, Diabetes mellitus without mention of complication, type II or unspecified type, uncontrolled 250.02 and Urinary tract infection 599.0 [facility] [address] [facility] [id number], [place] [id number] July, [facility] [id number] [place] [address]54- 2546 Jun, [facility] [place] [facility] [address] [id number] [address]- 2546 Jun, [facility] [id number], [place] [id number] May, [facility] [place] [facility] [address]00565100[place] [address]- 2326 May, [facility] [id number], [place] [id number] May, [facility] [place] [facility] [address]00565100[place] [address] 2546 May, [facility] [address] [id number], [place] [id number] Mar, [facility] [place] [facility] [address]00565100[place] [address]- 2546 Mar, [facility] [place] [facility] [address]00565100[place] [address]- 2546 Mar, [facility] [id number], [place] [id number] Mar, [facility] [id number], [place] [id number] Feb, [facility] [address]00565100[place] [address]- 7586 Feb, [facility] [address] [id number], [place] [id number] Feb, [facility] [place] [facility] [address] [facility] [id number] [place] [address] 2546 Feb, [facility] [place] [facility] [address] [facility] [id number] [address]- 2546 Feb, [facility] [address] [id number] [place] [id number] Feb, [facility] [address] [id number], [place] [id number] Feb, [facility] [place] [facility] [address] [facility] [id number] [place] [address]- 5196 Feb, [facility] [place] [facility] [address] [facility] [id number] [place] [address]- 2546 Feb, [facility] [address] [facility] [id number], [place] [id number] Jan, [facility] [place] [facility] [address] [facility] [id number] [place] [address]- 7082 Jan, [facility] [address] [facility] [id number], [place] [id number] Jan, [facility] [place] [facility] [address] [facility] [id number] [place] [address]- 3360 Jan, [facility] [address] [facility] [id number], [place] [id number] Dec, [facility] [place] [facility] [address] [facility] [id number] [place] [address]- 3723 Dec, [facility] [place] [facility] [address] [facility] [id number] [place] [address]- 8063 Dec, [facility] [place] [facility] [address] [facility] [id number] [address]- 0783 Dec, [facility] [address] [facility] [id number], [place] [id number] Dec, [facility] [place] [facility] [address] [facility] [id number] [place] 11788315- 8556 Dec, [facility] [address] [id number] [place] [id number] Nov, [facility] [place] [facility] [address] [id number] [address]- 2546 Nov, [facility] [address] [id number] [place] [id number] Oct, [facility] [place] [facility] [address] [facility] [id number] [place] [address]- 2546 Oct, [facility] [place] [facility] [address] [id number] [place] [address]- 2546 Sep, [facility] [address] [id number] [place] [id number] Sep, [facility] [address] [id number] [place] [id number] Aug, [facility] [place] [facility] [address] [facility] [id number] [place] [address]- 2546 Aug, [facility] [address] [id number] [place] [id number] July, [facility] [place] [facility] [address] [facility] [id number] [address]- 0646 July, [facility] [address] [facility] [id number], [place] [id number] July, [facility] [place] [facility] [address] [facility] [id number] [place] [address]- 5906 July, [facility] [place] [facility] [address] [facility] [id number] [place] [address]- 2546 July, [facility] [place] [facility] [address] [id number] [address]- 2546 Jun, [facility] [address] [id number] [place] [id number] Jun, [facility] [address] [id number] [place] [id number] Jun, [facility] [place] [facility] [address] [facility] [id number] [place] [address] Jun, [facility] [place] [facility] [address] [facility] [id number] [place] [address] Jun, [facility] [place] [facility] [address] [facility] [id number] [place] [address] May, [facility] [address] [facility] [id number] [place] [id number] Apr, [facility] [place] [facility] [address] [facility] [id number] [place] [address] Apr, [facility] [address] [facility] [id number] [place] [id number] Apr, [facility] [place] [facility] [address] [facility] [id number] [place] [address] Apr, [facility] [place] [facility] [address] [id number] [place] [address] Mar, [facility] [place] [facility] [address] [facility] [id number] [place] [address] Mar, [facility] [place] [facility] [address] [id number] [place] [address] Mar, [facility] [address] [id number][place] [id number] Mar, [facility] [place] [facility] [address] [id number] [place] [address] Mar, [facility] [place] [facility] [address] [facility] [id number] [place] [address] Mar, [facility] [place] [facility] [address] [facility] [id number] [place] [address] Feb, [facility] [address] [facility] [id number][place] [id number] Feb, [facility] [place] [facility] [address] [facility] [id number] [place] [address] Feb, [facility] [address] [id number] [id number] Feb, [facility] [place] [facility] [address] [facility] [id number] [place] [address] Feb, [facility] [address] [id number] [place] [id number] Feb, [facility] [place] [facility] [address] [facility] [id number] [place] [address] Feb, [facility] [address] [id number] [place] [id number] Jan, [facility] [place] [facility] [address] [facility] [id number] [place] [address] Jan, [facility] [place] [facility] [address] [facility] [id number] [place] [address] Dec, [facility] [place] [address] [id number] [place] [id number] Dec, [facility] [address]00565[address] [address] Nov, [facility] [place] [address] [id number] [place] [id number] Oct, [facility] [place] [address] [id number] [place] [id number] Oct, [facility] [place] [address] [id number] [place] [id number] Sep, [facility] [address] [facility] [id number] [address] Sep, [facility] [place] [address] [id number] [place] [id number] Sep, [facility] [place] [address] [id number] [place] [id number] Sep, [facility] [place] [address] [id number] [place] [id number] Sep, [facility] [place] [address] [id number] [place] [id number] Sep, [facility] [place] [address] [id number] [place] [id number] Sep, [facility] [place] [facility] [address] [facility] [id number] [address] Aug, [facility] [place] [address] [facility] [id number] [place] [id number] Aug, [facility] [place] [facility] [address] [facility] [id number] [place] [address] July, [facility] [place] [address] [facility] [id number] [place] [id number] July, [facility] [address] [facility] [id number] [place] [address] July, [facility] [place] [address] [id number] [place] [id number] Jun, [facility] [place] [address] [id number] [place] [id number] Jun, [facility] [place] [address] [id number] [id number] Jun, [facility] [address]00565[address] [address] Jun, [facility] [place] [address] [facility] [id number] [place] [id number] May, [facility] [place] [address] [id number] [place] [id number] May, [facility] [address]00565100[place] [address] May, [facility] [place] [id number][place] [id number] Apr, [facility] [address]00565100[place] [address] Apr, [facility] [place] [address] [id number][place] [id number] Apr, [facility] [place] [address] [facility] [id number][place] [id number] Apr, [facility] [address] [id number] [address] Mar, [facility] [place] [address] [facility] [id number] [place] [id number] Mar, [facility] [place] [address] [id number] [place] [id number] Mar, [facility] [place] [address] [id number] [place] [id number] Feb, [facility] [address] [facility] [id number] [place] [address] Feb, [facility] [place] [address] [id number] [place] [id number] Jan, [facility] [place] [address] [id number] [place] [id number] Jan, [facility] [id number] [place] [address] Jan, [facility] [address]00565100[place] [address] Jan, [facility] [place] [address] [id number][place] [address] Jan, [facility] [address]00565100[place] [address] Jan, [facility] [place] [address] [id number][place] [id number] Dec, [facility] [address] [facility] [id number] [place] [address] [address] Dec, [facility] [place] [address] [id number][place] [id number] Dec, [facility] [address] [facility] [id number] [place] [address] Dec, [facility] [place] [address] [id number][place] [address] Dec, [facility] [place] [address] [id number], [place] 896[address]2917 Nov, [facility] [place] [address] [id number][place] [id number] Nov, [facility] [place] [address] [id number][place] 002116517 Oct, [facility] [place] [address] [id number] [place] [id number] Oct, [facility] [place] [address] [id number] [place] [address] Sep, [facility] [place] [address] [id number] [place] [address]162 Sep, [facility] [place] [address] [id number] [place] [address]4299[address] Sep, [facility] [place] [address] [id number] [id number] Aug, [facility] [place] [address] [id number] [place] [address]58[address] Aug, [facility] [place] [address] [id number] [place] [id number] July, [facility] [place] [address] [id number] [place] [id number] July, [facility] [place] [address] [id number] [place] [id number] July, [facility] [place] [address] [id number] [place] [id number] July, [facility] [address]00565100[place] [address] Jun, [facility] [place] [address] [id number] [place] [id number] Jun, [facility] [place] [address] [id number] [place] [id number] Jun, [facility] [place] [address] [id number] [place] [id number] Jun, [facility] [place] [address] [id number] [place] 1628[address]190 May, [facility] [place] [address] [id number] [place] [id number] May, [facility] [place] [address] [id number] [place] [id number] Apr, [facility] [place] [address] [id number] [place] 9100[address]209 Apr, [facility] [place] [address] [id number] [place] [id number] Apr, [facility] [place] [address] [id number] [place] [id number] Apr, [facility] [place] [address] [id number] [place] [id number] Apr, [facility] [address] [facility] [id number] [place] [address] Apr, [facility] [place] [address] [id number] [place] [id number] Apr, [facility] [place] [address] [id number] [place] [id number] Apr, [facility] [place] [address] [id number] [place] [id number] Mar, [facility] [place] [facility] [address]00565100[place] [address]- [address] Feb, [facility] [place] [facility] [address]00565[address] [address]- [address] Feb, [facility] [place] [facility] [address]00565100[place] [address]- [address] Feb, [facility] [place] [facility] [address]00565100[place] [address] Feb, [facility] [place] [facility] [address]00565100[place] [address]- [address] Jan, [facility] [place] [facility] [address] [id number] [address] Jan, [facility] [place] [facility] [address] [facility] [id number] [place] 9867[place]- [address] Jan, [facility] [place] [facility] [address] [id number]- [address] Dec, [facility] [place] [facility] [address] [id number] [address] Dec, [facility] [place] [facility] [address] [id number] [place] [address]- [address] 17 Aug, 2010 [facility] [address] [id number] [place] [address]- [address] 16 Aug, 2010 [facility] [address] [id number] [place] [address]- [address] 30 Feb, 2010 [facility] [address] [id number] [place] [address]- 8736 Feb, [facility] [address] [id number] [place] [address]40 29 Jan, 2010 [facility] [address] [id number] [place] [address]- [address]597 Jan, [facility] [address] [id number] [place] [address]- [address] Dec, [facility] [address] [id number] [place] [address]- 39[address] Dec, [facility] [address] [id number] [place] [address]- [address]608 Dec, [facility] [address] [id number] [place] [address]- [address] May, [facility] [address] [id number] [place] [address]- [address] Mar, [facility] [address] [id number] [place] [address]- 44[address] Feb, [facility] [address] [id number] [place] [address]- [address]47 Feb, [facility] [place] [facility] [address] [id number] [place] [address] 2549 Feb, [facility] [place] [facility] [address] [id number] [place] [address] 2546 Jan, [facility] [address] [id number] [place] [address]- [address]70 Jan, [facility] [address] [facility] [id number] [address]- [address] Oct, [facility] [address] [id number] [address]- [address] July, [facility] [address] [facility] [id number] [place] [address]- [address] Apr, [facility] [address] [id number] [address]- [address] Jan, [facility] [address] [facility] [id number] [address]- [address] Jan, IMMUNIZATIONS No Known Immunizations SOCIAL HISTORY Never Assessed REASON FOR VISIT Triage JStrasserRN PLAN OF CARE VITAL SIGNS Height 64 in 2017-05-16 Temperature 98.3 degrees Fahrenheit 2017-05-16 Heart Rate 96 bpm 2017-05-16 Respiratory Rate 18 2017-05-16 Blood pressure systolic 140 mmHg 2017-05-16 Blood pressure diastolic 78 mmHg 2017-05-16 MEDICATIONS Unknown Medications RESULTS No Results PROCEDURES [...] History surgeries, childbirth Hospitalization History [facility] [place]- Possible Stroke 05/16/2017
--- OUTSIDE RECORDS SUMMARY | 2017-10-11 06:03 | XMS REPORT ---
Author Author CATRACHITA MOLINA [facility] Address [address] [place] [address] Care Team Providers Care Youth Associate Name Role Phone CATRACHITA MOLINA Unavailable PROBLEMS Type Condition ICD9-CM Code BRB31-YI Code Onset Dates Condition Status SNOMED Code Problem RLS (restless legs syndrome) G25.81 Active 51210970 Problem Encounter for immunization Z23 Active 597389512 Problem Essential hypertension I10 Active 06337893 Problem Diabetes type 2, controlled E11.9 Active 02814908 Problem Diabetic polyneuropathy associated with type 2 diabetes mellitus E11.42 Active 55066737 Problem Other chronic pain G89.29 Active 13154998 Problem Hypoglycemia E16.2 Active 651990162 Problem Reactive depression F32.9 Active 52084396 Problem Type 2 diabetes mellitus with hyperglycemia E11.65 Active 848059448564793 Problem Spinal stenosis, unspecified spinal region M48.00 Active 78861260 Problem Type 2 diabetes mellitus with other specified complication E11.69 Active 29190546305419 Problem Hyperlipidemia, unspecified E78.5 Active 66991551 ALLERGIES No Known Allergies ENCOUNTERS Encounter Location Date Diagnosis [facility] [id number] [place] [id number] Oct, [facility] [id number] [place] [id number] Sep, Diabetic polyneuropathy associated with type 2 diabetes mellitus E11.42 [facility] [address], [place] [address] Sep, [facility] [id number] [place] [address] [id number] Sep, Spinal stenosis, unspecified spinal region M48.00 [facility] [address] [address] Aug, [facility] [id number] [place] [address] [id number] Aug, Spinal stenosis, unspecified spinal region M48.00 [facility] [id number] [place] [address] [id number] Aug, Spinal stenosis, unspecified spinal region M48.00 [facility] [id number] [place] [address] [id number] July, [facility] [id number] [place] [address] [id number] July, Diabetic polyneuropathy associated with type 2 diabetes mellitus E11.42 ; Type 2 diabetes mellitus with hyperglycemia E11.65 ; RLS (restless legs syndrome ) G25.81 and Essential hypertension I10 [facility] [id number] [place] [address] [id number] July, Spinal stenosis, unspecified spinal region M48.00 [facility] [id number] [place] [address] [id number] July, [facility] [id number] [place] [address] [id number] Jun, Type 2 diabetes mellitus with other specified complication E11.69 [facility] [id number] [place] [address] [id number] Jun, Spinal stenosis, unspecified spinal region M48.00 [facility] [id number] [place] [address] [id number] Jun, Hypoglycemia E16.2 [facility] [id number] [place] [address] [id number] May, Hypoglycemia E16.2 ; Acute cystitis with hematuria N30.01 and Essential hypertension I10 [facility] [address], [place] [address] May, [facility] [id number] [place] [address] [id number] May, Spinal stenosis, unspecified spinal region M48.00 [facility] [id number] [place] [id number] May, Reactive depression F32.9 [facility] [id number] [place] [address] [id number] May, [facility] [address] [id number] [place] [id number] Apr, [facility] [address] [id number][place] [id number] Apr, [facility] [address] [id number], [place] [phone] Apr, [facility] [address] [id number] [place] [id number] Apr, [facility] [address] [id number] [place] [id number] Apr, Spinal stenosis, unspecified spinal region M48.00 [facility] [address] [id number] [place] [id number] Apr, Type 2 diabetes mellitus with other specified complication E11.69 ; Spinal stenosis, unspecified spinal region M48.00 ; Reactive depression F32.9 and Essential hypertension I10 [facility] [address] [id number], [place] [id number] Apr, [facility] [id number] [place] [id number] Mar, Spinal stenosis, unspecified spinal region M48.00 [facility] [id number] [place] [id number] Feb, Acute non-recurrent maxillary sinusitis J01.00 and Essential hypertension I10 [facility] [address] [id number] [place], [place] [id number] Feb, Spinal stenosis, unspecified spinal region M48.00 [facility] [address] [id number] [place] [phone] Feb, Type 2 diabetes mellitus with other specified complication E11.69 [facility] [id number] [place] [address] [id number] Feb, Type 2 diabetes mellitus with other specified complication E11.69 and Essential hypertension I10 [facility] [address] [id number] [place] [id number] Feb, [facility] [id number] [place] [address] [id number] Feb, [facility] [place] [address] [id number] [place] [phone] Jan, Spinal stenosis, unspecified spinal region M48.00 [facility] [id number] [place] [address] [id number] Jan, Diabetic polyneuropathy associated with type 2 diabetes mellitus E11.42 [facility] [place] [id number] [place] [address] [id number] Jan, Diabetic polyneuropathy associated with type 2 diabetes mellitus E11.42 [facility] [place] [id number] [place] [id number] Jan, Type 2 diabetes mellitus with hyperglycemia E11.65 ; Type 2 diabetes mellitus with other specified complication E11.69 ; Spinal stenosis, unspecified spinal region M48.00 and Essential hypertension I10 [facility] [place] [id number] [place] [address] [id number] Jan, Diabetic polyneuropathy associated with type 2 diabetes mellitus E11.42 [facility] [place] [id number] [place] [id number] Dec, [facility] [id number] [place] [address] [id number] Dec, Diabetic polyneuropathy associated with type 2 diabetes mellitus E11.42 ; Type 2 diabetes mellitus with other specified complication E11.69 ; Hyperlipidemia, unspecified E78.5 ; Thyroid disorder E07.9 and Thyroid disorder screening Z13.29 [facility] [place] [id number] [place] [id number] Dec, Diabetic polyneuropathy associated with type 2 diabetes mellitus E11.42 [facility] [address] [address] Dec, Diabetic polyneuropathy associated with type 2 diabetes mellitus E11.42 [facility] [place] [id number] [place] [address] [id number] Dec, Spinal stenosis, unspecified spinal region M48.00 [facility] [place] [id number] [place] [id number] Dec, [facility] [place] [address] [id number] [phone] 18 Nov, 2016 Diabetic polyneuropathy associated with type 2 diabetes mellitus E11.42 [facility] [id number] [place] [address] [id number] 15 Nov, 2016 Other chronic pain G89.29 [facility] [id number] [place] [id number] 14 Nov, 2016 Spinal stenosis, unspecified spinal region M48.00 [facility] [id number] [place] [address] [id number] 16 Oct, 2016 Spinal stenosis, unspecified spinal region M48.00 ; Essential hypertension I10 ; RLS (restless legs syndrome) G25.81 and Diabetic polyneuropathy associated with type 2 diabetes mellitus E11.42 [facility] [id number] [place] [address] [id number] Oct, Spinal stenosis, unspecified spinal region M48.00 [facility] [id number] [place] [address] [id number] Sep, Diabetic polyneuropathy associated with type 2 diabetes mellitus E11.42 ; RLS (restless legs syndrome) G25.81 ; Spinal stenosis, unspecified spinal region M48.00 and Essential hypertension I10 [facility] [id number] [place] [id number] 14 Sep, 2016 [facility] [id number] [place] [address] [id number] Sep, Spinal stenosis, unspecified spinal region M48.00 [facility] [id number] [place] [id number] Sep, [facility] [id number] [place] [id number] Aug, Spinal stenosis, unspecified spinal region M48.00 [facility] [address], [place] [address] July, [facility] [id number] [place] [id number] July, Spinal stenosis, unspecified spinal region M48.00 [facility] [id number] [place] [id number] Jun, Type 2 diabetes mellitus with hyperglycemia E11.65 [facility] [address] [id number] [place] [id number] Jun, Spinal stenosis, unspecified spinal region M48.00 [facility] [address] [id number] [place] [id number] May, Spinal stenosis, unspecified spinal region M48.00 [facility] [address] [id number] [place] [id number] Apr, Spinal stenosis, unspecified spinal region M48.00 [facility] [address] [id number] [address] Mar, [facility] [address] [id number] [place] [id number] Mar, Type 2 diabetes mellitus with hyperglycemia E11.65 ; RLS (restless legs syndrome) G25.81 and Spinal stenosis, unspecified spinal region M48.00 [facility] [address], [place] [address] Mar, [facility] [address] [id number] [place] [id number] Mar, [facility] [address] [id number], [place] [id number] Mar, [facility] [address] [id number] [place] [id number] Feb, [facility] [address]65[address], [place] [address] Feb, [facility] [address] [id number] [place] [id number] Feb, [facility] [address] [id number] [place] [id number] Feb, [facility] [address] [facility] [id number], [place] 167717- [address] Feb, [facility] [address] [address] Feb, [facility] [id number] [place] [address] [id number] Jan, [facility] [id number] [place] [address] [id number] Dec, Diabetic polyneuropathy associated with type 2 diabetes mellitus E11.42 ; Other chronic pain G89.29 ; Essential hypertension I10 and Encounter for immunization Z23 [facility] [id number] [place] [address] [id number] Dec, [facility] [address] [address] Nov, [facility] [id number] [place] [address] [id number] Nov, [facility] [id number] [place] [address] [id number] Nov, Diabetes type 2, controlled E11.9 [facility] [id number] [place] [address] [id number] Nov, Diabetes type 2, controlled E11.9 ; Other chronic pain G89.29 ; Essential hypertension I10 ; Diabetic polyneuropathy associated with type 2 diabetes mellitus E11.42 and RLS (restless legs syndrome) G25.81 [facility] [id number] [place] [address]99 Nov, [facility] [id number] [place] [address] [id number] Oct, [facility] [place] [id number] [place] [address] [id number] Oct, [facility] [id number] [place] [address] [id number] Oct, [facility] [id number] [place] [address]661- 2532 Oct, [facility] [place] [id number] [place] [address] [id number] Sep, [facility] [place] [id number] [place] [address] [id number] Sep, [facility] [id number] [place] [address]- 5798 Sep, Dental examination Z01.20 [facility] [address] [facility] [id number], [place] [address] Aug, [facility] [place] [id number] [place] [address] [id number] Aug, [facility] [address] [facility] [id number] [address]- [address] Aug, [facility] [id number] [place] [address]- 2776 July, [facility] [address] [facility] [id number], [place] 110[place]- [address] July, [facility] [address] [id number], [place] [address] July, [facility] [place] [id number] [place] [address] [id number] July, [facility] [place] [id number] [place] [address] [id number] July, [facility] [place] [address] [id number] [place] [address] [id number] July, [facility] [address], [place] [address] 2546 July, [facility] [place] [id number] [place] [address] [id number] Jun, Diabetes type 2, controlled E11.9 [facility] [place] [id number] [place] [address] [id number] Jun, [facility] [address] [id number] [place] [address] [id number] May, Diabetes type 1, uncontrolled E10.65 [facility] [id number] [place] [address] [id number] May, [facility] [address] [id number] [place] [address] [id number] Apr, [facility] [place] [address] [id number] [place] [address] [id number] Apr, [facility] [id number] [place] [address] [id number] Mar, [facility] [place] [address] [facility] [id number] [place] [id number] Mar, [facility] [id number] [place] [id number] Mar, [facility] [place] [id number] [place] [id number] Mar, Diabetes type 1, uncontrolled E10.65 [facility] [place] [id number] [place] [address] [id number] Feb, [facility] [place] [id number] [place] [id number] Feb, [facility] [id number] [place] [address] [id number] Feb, [facility] [address]00565100[place], [place] [id number] Jan, [facility] [id number] [place] [id number] Jan, Dysuria R30.0 and Acute cystitis with hematuria N30.01 [facility] [id number] [place] [id number] Jan, [facility] [id number] [place] [address] [id number] Dec, Gastroenteritis K52.9 and Headache, unspecified headache type R51 [facility] [id number] [place] [id number] Dec, [facility] [id number] [place] [id number] Dec, Chronic back pain 724.5 [facility] [place] [address] [facility] [id number] [id number] Dec, [facility] [id number] [place] [address] [id number] Nov, Chronic back pain 724.5 and Diabetes mellitus without mention of complication, type II or unspecified type, uncontrolled 250.02 [facility] [id number] [place] [id number] Nov, [facility] [address] [facility] [id number] [place] [id number] Oct, [facility] [address] [id number] [place] [id number] Sep, Diabetes mellitus without mention of complication, type II or unspecified type, uncontrolled 250.02 and Urinary tract infection 599.0 [facility] [id number] [place] [id number] July, [facility] [id number] [place] [address]40[address]- 2546 Jun, [facility] [address]00565100[place], [place] [address]- 2546 Jun, [facility] [id number] [place] [address] [id number] May, [facility] [address]00565100[place], [place] [address]- 2546 May, [facility] [id number] [place] [id number] May, [facility] [address]65100[place], [place] [address]- 2546 May, [facility] [id number] [place] [id number] Mar, [facility] [address]65[address], [place] [address]- 2546 Mar, [facility] [address]00565[address], [place] [address]- 2546 Mar, [facility] [address] [id number] [place] [id number] Mar, [facility] [id number] [place] [id number] Feb, [facility] [address]65[address], [place] [address]- 2546 Feb, [facility] [address] [id number] [place] [id number] Feb, [facility] [address]65[address], [place] [address]- 1546 Feb, [facility] [address] [facility] [id number], [place] [address]- 7006 Feb, [facility] [address] [facility] [id number] [place] [id number] Feb, [facility] [place] [address] [facility] [id number] [place] [id number] Feb, [facility] [address] [facility] [id number][place] [address]- 1266 Feb, [facility] [address] [facility] [id number][place] [address]- 1616 Feb, [facility] [address] [facility] [id number] [place] [id number] Jan, [facility] [address] [facility] [id number] [address]- [address] Jan, [facility] [address] [facility] [id number] [place] [id number] Jan, [facility] [address] [facility] [id number][place] [address]- 2894 Jan, [facility] [address] [facility] [id number] [place] [id number] Dec, [facility] [address] [facility] [id number][place] [address]- 8486 Dec, [facility] [address] [facility] [id number][place] [address]- 9336 Dec, [facility] [address] [facility] [id number], [place] [address] Dec, [facility] [address] [facility] [id number] [place] [id number] Dec, [facility] [place] [facility] [address] [facility] [id number], [place] [address] Dec, [facility] [address] [facility] [id number] [place] [id number] Nov, [facility] [place] [facility] [address] [id number] [place] [address] Nov, [facility] [address] [id number] [place] [id number] Oct, [facility] [place] [facility] [address] [id number] [place] [address] Oct, [facility] [place] [facility] [address] [id number] [place] [address] Sep, [facility] [address] [id number] [place] [id number] Sep, [facility] [address] [id number] [place] [id number] Aug, [facility] [place] [facility] [address] [facility] [id number] [place] [address] Aug, [facility] [address] [facility] [id number] [place] [id number] July, [facility] [place] [facility] [address] [facility] [id number] [place] [id number] July, [facility] [address] [facility] [id number] [place] [id number] July, [facility] [place] [facility] [address] [facility] [id number], [place] [address] July, [facility] [place] [facility] [address] [facility] [id number], [place] [address] July, [facility] [place] [facility] [address] [facility] [id number], [place] [address] Jun, [facility] [address] [id number] [place] [id number] Jun, [facility] [address] [id number] [place] [id number] Jun, [facility] [place] [facility] [address] [facility] [id number] [place] [address] Jun, [facility] [place] [facility] [address] [facility] [id number] [place] [address] Jun, [facility] [address] [facility] [id number] [place] [address] May, [facility] [address] [facility] [id number] [place] [id number] Apr, [facility] [address] [facility] [id number] [place] [address] Apr, [facility] [place] [address] [facility] [id number] [place] [id number] Apr, [facility] [address] [facility] [id number] [place] [address] Apr, [facility] [place] [facility] [address] [facility] [id number] [place] [address] Mar, [facility] [place] [facility] [address] [address] Mar, [facility] [address] [facility] [id number], [place] [address] Mar, [facility] [place] [address] [id number] [place] [id number] Mar, [facility] [address] [facility] [id number] [address] Mar, [facility] [place] [facility] [address] [facility] [id number], [place] [address] Mar, [facility] [place] [facility] [address] [facility] [id number], [place] [address] Feb, [facility] [place] [address] [facility] [id number] [place] [id number] Feb, [facility] [place] [facility] [address] [facility] [id number] [place] [address] Feb, [facility] [place] [address] [facility] [id number] [place] [id number] Feb, [facility] [place] [facility] [address] [facility] [id number][place] [address] Feb, [facility] [place] [address] [id number] [place] [id number] Feb, [facility] [address] [facility] [id number][place] [address] Feb, [facility] [place] [address] [id number] [place] [id number] Jan, [facility] [address] [facility] [id number], [place] [address] Jan, [facility] [place] [facility] [address] [facility] [id number][place] [address] Dec, [facility] [place] [address] [id number] [place] [id number] Dec, [facility] [place] [facility] [address] [facility] [id number][place] [address] Nov, [facility] [place] [address] [id number] [place] [id number] Oct, [facility] [place] [address] [id number] [place] [id number] Oct, [facility] [place] [address] [id number] [place] [id number] Sep, [facility] [address] [facility] [id number][place] [address] Sep, [facility] [place] [address] [id number] [place] [id number] Sep, [facility] [place] [address] [id number] [place] [address] Sep, [facility] [place] [address] [id number] [place] [id number] Sep, [facility] [place] [address] [id number] [place] [id number] Sep, [facility] [place] [address] [id number] [place] [id number] Sep, [facility] [place] [facility] [address] [facility] [id number], [place] [address] Aug, [facility] [place] [address] [id number] [place] [id number] Aug, [facility] [address] [facility] [id number], [place] [address] July, [facility] [place] [address] [id number] [place] [id number] July, [facility] [address] [facility] [id number], [place] [address] July, [facility] [place] [address] [id number] [place] [id number] Jun, [facility] [place] [address] [id number] [place] [id number] Jun, [facility] [place] [address] [id number] [place] [id number] Jun, [facility] [address]65[address], [place] [address] Jun, [facility] [place] [address] [id number] [place] [id number] May, [facility] [place] [address] [id number] [place] [address] May, [facility] [address]65100[place], [place] [address] May, [facility] [place] [address] [facility] [id number] [place] [id number] Apr, [facility] [address], [place] [address] Apr, [facility] [place] [address] [facility] [id number] [place] [address] Apr, [facility] [place] [address] [id number] [place] [id number] Apr, [facility] [place] [facility] [address] [facility] [id number], [place] [address] Mar, [facility] [place] [address] [id number] [place] [id number] Mar, [facility] [place] [address] [id number] [place] [id number] Mar, [facility] [place] [address] [id number] [place] [id number] Feb, [facility] [address] [facility] [id number], [place] [address] Feb, [facility] [place] [address] [id number] [place] [id number] Jan, [facility] [place] [address] [id number] [place] [id number] Jan, [facility] [address] [facility] [id number] [place] [address]351 Jan, [facility] [address] [facility] [id number], [place] [address]- [address] Jan, [facility] [place] [address] [id number] [place] [id number] Jan, [facility] [address], [place] [address] Jan, [facility] [place] [address] [id number] [place] [id number] Dec, [facility] [address] [facility] [id number], [place] [address]- [address] Dec, [facility] [place] [address] [id number] [place] [id number] Dec, [facility] [address] [facility] [id number], [place] [address]8 Dec, [facility] [place] [address] [id number] [place] [id number] Dec, [facility] [place] [address] [id number] [place] [id number] Nov, [facility] [place] [address] [id number] [place] [id number] Nov, [facility] [place] [address] [id number] [place] [id number] Oct, [facility] [place] [address] [id number] [place] [address]338[address] Oct, [facility] [place] [address] [id number] [place] [address] Sep, [facility] [place] [address] [id number] [place] [address] Sep, [facility] [place] [address] [id number] [place] [address] Sep, [facility] [place] [address] [id number] [place] [address] Aug, [facility] [place] [address] [id number] [place] [address] Aug, [facility] [place] [address] [id number] [place] [address] July, [facility] [place] [address] [id number] [place] [id number] July, [facility] [place] [address] [id number] [place] [address] July, [facility] [place] [address] [id number] [place] [id number] July, [facility] [address] [facility] [id number] [place] [address]26 Jun, [facility] [place] [address] [id number] [place] [id number] Jun, [facility] [place] [address] [id number] [place] [id number] Jun, [facility] [place] [address] [id number] [place] 840[place]344 Jun, [facility] [place] [address] [id number] [place] [id number] May, [facility] [place] [address] [id number] [place] [id number] May, [facility] [place] [address] [id number] [place] [id number] Apr, [facility] [place] [address] [id number] [place] [address] Apr, [facility] [place] [address] [id number] [place] [id number] Apr, [facility] [place] [address] [id number] [place] [id number] Apr, [facility] [address] [facility] [id number] [place] [id number] Apr, [facility] [place] [facility] [address] [id number] [address]46 Apr, [facility] [place] [address] [facility] [id number] [place] [id number] Apr, [facility] [place] [address] [id number] [place] [id number] Apr, [facility] [place] [address] [facility] [id number] [place] [id number] Mar, [facility] [place] [facility] [address] [facility] [id number] [place] [address]- 8900 Feb, [facility] [place] [facility] [id number] [place] [address]- [address]368 Feb, [facility] [place] [facility] [address] [id number], [place] [address]- 6995 Feb, [facility] [place] [facility] [address], [place] [address]- 7933 Feb, [facility] [place] [facility] [address], [place] [address]- 8941 Jan, [facility] [place] [facility] [address], [place] [address]- [address] Jan, [facility] [place] [facility] [address], [place] [address]- [address]60 Jan, [facility] [place] [facility] [address], [place] [address]- 4244 Dec, [facility] [place] [facility] [address] [facility] [id number], [place] [address]- 4397 Dec, [facility] [place] [facility] [address], [place] [address]- 6203 Aug, [facility] [place] [facility] [id number] [place] [address] [place] [address]- [address]47 16 Aug, 2010 [facility] [address] [id number] [place] [address]- 7445 30 Feb, 2010 [facility] [place] [facility] [address] [id number] [place] [address]- 6138 Feb, [facility] [place] [facility] [address] [id number] [place] [address]- 2646 Jan, [facility] [place] [facility] [address] [id number] [place] [address]- 2113 Jan, [facility] [place] [facility] [id number] [place] [address], [place] [address]- 0443 Dec, [facility] [place] [facility] [address] [id number] [place] [address]- 8886 Dec, [facility] [place] [facility] [address] [id number] [place] [address]- 6858 Dec, [facility] [place] [facility] [address] [id number] [place] [address]- 6732 May, [facility] [place] [facility] [address] [id number] [place] [address]- 5606 Mar, [facility] [place] [facility] [address] [facility] [id number] [place] [address]- 4114 Feb, [facility] [place] [facility] [address] [id number] [place] [address]- 6977 08 Feb, 2009 [facility] [place] [facility] [address] [id number], [place] [address]- 9250 Feb, [facility] [place] [facility] [address] [id number] [place] [address]- 9893 17 Jan, 2009 [facility] [place] [facility] [address] [id number] [place] [address]- 1163 Jan, [facility] [place] [facility] [address] [facility] [id number], [place] [address]- 5178 Oct, [facility] [place] [facility] [address] [facility] [id number], [place] [address]6445852- [address]697 July, [facility] [address] [facility] [id number], [place] [address]- 5469 Apr, [facility] [address] [facility] [id number], [place] [address]27688- [address]170 Jan, [place] [place] [facility] [id number][place]934- 7977 Jan, IMMUNIZATIONS No Known Immunizations SOCIAL HISTORY Never Assessed REASON FOR VISIT blood sugars have been to low....down to 30...went to [facility] 06/04/17, quit taking zoloft---ELIZABETH calvo PLAN OF CARE Activity Details Follow Up 2 Weeks Reason:dm VITAL SIGNS Height 64 in 2017-06-06 Weight 185.4 lbs 2017-06-06 Temperature 98.7 degrees Fahrenheit 2017-06-06 Heart Rate 90 bpm 2017-06-06 Respiratory Rate 18 2017-06-06 BMI 31.82 kg/m2 2017-06-06 Blood pressure systolic 126 mmHg 2017-06-06 Blood pressure diastolic 82 mmHg 2017-06-06 MEDICATIONS Medication Instructions Dosage Frequency Start Date End Date Duration Status Calcium 600 MG Orally Once a day 1 tablet with meals 24h Active Losartan Potassium 50 MG Orally Once a day 1.5 tablet 24h Active Levemir 100 UNIT/ML Subcutaneous 2 times a day 72 u 12h Jun, Active Aspirin Adult Low Strength 81 MG Orally Once a day 1 tablet 24h Active Gabapentin 300 MG TAKE ONE (1) CAPSULE BY MOUTH THREE (3) TIMES A DAY... Active Safety Insulin Syringes 30G X 1/2 as directed Apr, Active Hydrocodone-Acetaminophen 7.5-325 MG Orally every 4-6 hrs PRN, Must last 28 days 1 tablet May, Active Metformin HCl 1000 MG Orally 2 times a day TAKE 1 TABLET BY MOUTH TWICE DAILY WITH MEALS... 12h Active Lovastatin 20 mg Orally Once a day with a meal 1 tablet 30 days Active Poly-Iron 150 Forte 150-25-1 MG-MCG-MG Orally 2 times a day 1 capsule 12h 30 days Active Amitriptyline HCl 100 MG TAKE ONE (1) TABLET BY MOUTH DAILY... Active Hydrochlorothiazide 25 MG TAKE ONE (1) TABLET BY MOUTH DAILY... Active Naproxen 500 mg Orally every 12 hrs 1 tablet with food or milk as needed 12h Jan, Active Pramipexole Dihydrochloride 0.5 MG Orally Once a day 2-3 hours before bedtime 2 tablets 30 days Active Victoza 18 MG/3ML Subcutaneous Once a day 1.8 mg 24h Active Bactrim DS 800-160 MG Orally Twice a day 1 tablet 12h Active RESULTS No Results PROCEDURES Procedure Date Ordered Result Body Site [facility] VISIT ESTABLISHED PATIENT June 06, 2017 URINALYSIS, AUTO, W/O SCOPE June 06, 2017 [facility] June 06, 2017 INSTRUCTIONS MEDICATIONS ADMINISTERED No Known Medications [...] Hospitalization History surgeries, childbirth Hospitalization History [place]- Possible Stroke 05/16/2017
--- OUTSIDE RECORDS SUMMARY | 2017-10-11 06:04 | XMS REPORT ---
Author Author CATRACHITA MOLINA [facility] Address [address] [place] [address] Care Team Providers Care Bead Inspector Name Role Phone CATRACHITA MOLINA Unavailable PROBLEMS Type Condition ICD9-CM Code QEM80-RP Code Onset Dates Condition Status SNOMED Code Problem RLS (restless legs syndrome) G25.81 Active 59668463 Problem Encounter for immunization Z23 Active 228421410 Problem Essential hypertension I10 Active 45159802 Problem Diabetes type 2, controlled E11.9 Active 28115554 Problem Diabetic polyneuropathy associated with type 2 diabetes mellitus E11.42 Active 96262772 Problem Other chronic pain G89.29 Active 17789008 Problem Hypoglycemia E16.2 Active 589859862 Problem Reactive depression F32.9 Active 06310870 Problem Type 2 diabetes mellitus with hyperglycemia E11.65 Active [id number] Problem Spinal stenosis, unspecified spinal region M48.00 Active 06047505 Problem Type 2 diabetes mellitus with other specified complication E11.69 Active 12596816146021 Problem Hyperlipidemia, unspecified E78.5 Active 94666804 ALLERGIES No Known Allergies ENCOUNTERS Encounter Location Date Diagnosis [facility] [address] [id number] Sep, [facility] [id number] [place] [address] [id number] Sep, Spinal stenosis, unspecified spinal region M48.00 [facility] [address] [facility] [id number] [place] [address] [id number]- 7897 Aug, [facility] [id number] [place] [address] [id number] Aug, Spinal stenosis, unspecified spinal region M48.00 [facility] [id number] [place] [address] [id number] Aug, Spinal stenosis, unspecified spinal region M48.00 [facility] [id number], [place] [id number] July, [facility] [id number] [place] [address] [id number] July, Diabetic polyneuropathy associated with type 2 diabetes mellitus E11.42 ; Type 2 diabetes mellitus with hyperglycemia E11.65 ; RLS (restless legs syndrome ) G25.81 and Essential hypertension I10 [facility] [id number] [place] [address] [id number] July, Spinal stenosis, unspecified spinal region M48.00 [facility] [id number] [place] [address] [id number] July, [facility] [id number] [place] [address] [phone] Jun, Type 2 diabetes mellitus with other specified complication E11.69 [facility] [id number] [place] [address] [id number] Jun, Spinal stenosis, unspecified spinal region M48.00 [facility] [id number] [place] [address] [id number] Jun, Hypoglycemia E16.2 [facility] [id number] [place] [address] [id number] May, Hypoglycemia E16.2 ; Acute cystitis with hematuria N30.01 and Essential hypertension I10 [facility] [id number] [id number] May, [facility] [id number][place] [id number] May, Spinal stenosis, unspecified spinal region M48.00 [facility] [address] [id number], [place] [phone] May, Reactive depression F32.9 [facility] [id number] [place] [address] [id number] May, [facility] [id number], [place] [id number] Apr, [facility] [address] [facility] [id number] [place] [id number] Apr, [facility] [address] [id number] [place] [phone] Apr, [facility] [id number] [place] [address] [id number] Apr, [facility] [id number] [place] [address] [id number] Apr, Spinal stenosis, unspecified spinal region M48.00 [facility] [id number] [place] [address] [id number] Apr, Type 2 diabetes mellitus with other specified complication E11.69 ; Spinal stenosis, unspecified spinal region M48.00 ; Reactive depression F32.9 and Essential hypertension I10 [facility] [address] [facility] [address] [id number] [place] [id number] Apr, [facility] [id number] [place] [address] [id number] Mar, Spinal stenosis, unspecified spinal region M48.00 [facility] [id number] [place] [address] [id number] Feb, Acute non-recurrent maxillary sinusitis J01.00 and Essential hypertension I10 [facility] [id number] [place] [address] [id number] Feb, Spinal stenosis, unspecified spinal region M48.00 [facility] [id number] [place] [address] [id number] Feb, Type 2 diabetes mellitus with other specified complication E11.69 [facility] [address] [id number] [place] [address] [id number] Feb, Type 2 diabetes mellitus with other specified complication E11.69 and Essential hypertension I10 [facility] [address] [id number][place] [id number] Feb, [facility] [address] [id number] [place] [address] [id number] Feb, [facility] [id number] [place] [address] [id number] Jan, Spinal stenosis, unspecified spinal region M48.00 [facility] [address] [id number] [place] [address] [id number] Jan, Diabetic polyneuropathy associated with type 2 diabetes mellitus E11.42 [facility] [id number], [place] [id number] Jan, Diabetic polyneuropathy associated with type 2 diabetes mellitus E11.42 [facility] [id number] [place] [address] [id number] Jan, Type 2 diabetes mellitus with hyperglycemia E11.65 ; Type 2 diabetes mellitus with other specified complication E11.69 ; Spinal stenosis, unspecified spinal region M48.00 and Essential hypertension I10 [facility] [id number] [place] [address] [id number] Jan, Diabetic polyneuropathy associated with type 2 diabetes mellitus E11.42 [facility] [id number] [place] [address] [id number] Dec, [facility] [id number] [place] [address] [id number] Dec, Diabetic polyneuropathy associated with type 2 diabetes mellitus E11.42 ; Type 2 diabetes mellitus with other specified complication E11.69 ; Hyperlipidemia, unspecified E78.5 ; Thyroid disorder E07.9 and Thyroid disorder screening Z13.29 [facility] [id number], [place] [id number] Dec, Diabetic polyneuropathy associated with type 2 diabetes mellitus E11.42 [facility] [address]100[place], [place] 859[place] Dec, Diabetic polyneuropathy associated with type 2 diabetes mellitus E11.42 [facility] [id number], [place] [id number] Dec, Spinal stenosis, unspecified spinal region M48.00 [facility] [id number], [place] [id number] Dec, [facility] [id number] [place] [address] [id number] 18 Nov, 2016 Diabetic polyneuropathy associated with type 2 diabetes mellitus E11.42 [facility] [id number] [place] [address] [id number] 15 Nov, 2016 Other chronic pain G89.29 [facility] [address] [id number], [place] [id number] 14 Nov, 2016 Spinal stenosis, unspecified spinal region M48.00 [facility] [id number] [place] [address] [id number] Oct, Spinal stenosis, unspecified spinal region M48.00 ; Essential hypertension I10 ; RLS (restless legs syndrome) G25.81 and Diabetic polyneuropathy associated with type 2 diabetes mellitus E11.42 [facility] [address] [id number] [place] [address] [id number] Oct, Spinal stenosis, unspecified spinal region M48.00 [facility] [address] [id number] [place] [phone] Sep, Diabetic polyneuropathy associated with type 2 diabetes mellitus E11.42 ; RLS (restless legs syndrome) G25.81 ; Spinal stenosis, unspecified spinal region M48.00 and Essential hypertension I10 [facility] [id number] [place] [address] [id number] 14 Sep, 2016 [facility] [id number] [place] [address] [id number] Sep, Spinal stenosis, unspecified spinal region M48.00 [facility] [address] [id number], [place] [id number] Sep, [facility] [id number] [place] [address] [id number] Aug, Spinal stenosis, unspecified spinal region M48.00 [facility] [address]00565100[place], [place] [address]- [address] July, [facility] [id number], [place] [id number] July, Spinal stenosis, unspecified spinal region M48.00 [facility] [address] [id number], [place] [phone] Jun, Type 2 diabetes mellitus with hyperglycemia E11.65 [facility] [address] [id number] [place] [address] [id number] Jun, Spinal stenosis, unspecified spinal region M48.00 [facility] [id number] [place] [address] [id number] May, Spinal stenosis, unspecified spinal region M48.00 [facility] [address] [id number], [place] [id number] Apr, Spinal stenosis, unspecified spinal region M48.00 [facility] [address] [facility] [id number], [place] [address]- 2546 Mar, [facility] [address] [id number], [place] [id number] Mar, Type 2 diabetes mellitus with hyperglycemia E11.65 ; RLS (restless legs syndrome) G25.81 and Spinal stenosis, unspecified spinal region M48.00 [facility] [id number] [place] [address] 57532 2546 Mar, [facility] [address] [id number], [place] [id number] Mar, [facility] [address]00565100[place] [id number] Mar, [facility] [id number], [place] [id number] Feb, [facility] [id number] [place] [address] 78678- 0246 Feb, [facility] [id number], [place] [id number] Feb, [facility] [address] [id number], [place] [id number] Feb, [facility] [address]00565100[place], [place] [address] 2546 Feb, [facility] [address]00565100[place], [place] [address]- 2546 Feb, [facility] [address] [id number], [place] [id number] Jan, [facility] [address] [id number], [place] [id number] Dec, Diabetic polyneuropathy associated with type 2 diabetes mellitus E11.42 ; Other chronic pain G89.29 ; Essential hypertension I10 and Encounter for immunization Z23 [facility] [id number], [place] [id number] Dec, [facility] [address] [address]- [address] Nov, [facility] [id number] [place] [address] [id number] Nov, [facility] [id number] [place] [address] [id number] Nov, Diabetes type 2, controlled E11.9 [facility] [id number] [place] [address] [id number] 14 Nov, 2015 Diabetes type 2, controlled E11.9 ; Other chronic pain G89.29 ; Essential hypertension I10 ; Diabetic polyneuropathy associated with type 2 diabetes mellitus E11.42 and RLS (restless legs syndrome) G25.81 [facility] [id number] [place] [address] 40011- 1750 Nov, [facility] [id number] [place] [address] [id number] Oct, [facility] [id number] [place] [address] [id number] Oct, [facility] [id number] [place] [address] [id number] Oct, [facility] [id number] [place] [address] 64926- 8796 Oct, [facility] [id number] [place] [address] [id number] Sep, [facility] [id number] [place] [address] [id number] Sep, [facility] [address] [address]- [address]39 Sep, Dental examination Z01.20 [facility] [id number] [place] [address] [id number]- 4940 Aug, [facility] [id number] [place] [address] [id number] Aug, [facility] [address] [facility] [id number], [place] [address]- 2406 Aug, [facility] [address] [facility] [id number], [place] [address]- 4[address] July, [facility] [address] [facility] [id number], [place] [address]- 8766 July, [facility] [address] [facility] [id number], [place] [address]- 3663 July, [facility] [address] [id number], [place] [id number] July, [facility] [address] [id number] [place] [address] [id number] July, [facility] [address] [id number] [place] [address] [id number] July, [facility] [address]00565100[place], [place] [address]- 2[address] July, [facility] [address] [id number], [place] [id number] Jun, Diabetes type 2, controlled E11.9 [facility] [address] [id number] [place] [address] [id number] Jun, [facility] [address] [id number] [place] [address] [id number] May, Diabetes type 1, uncontrolled E10.65 [facility] [address] [id number], [place] [id number] May, [facility] [address] [id number], [place] [id number] Apr, [facility] [address] [id number] [place] [id number] Apr, [facility] [address] [id number], [place] [id number] Mar, [facility] [address] [id number], [place] [id number] Mar, [facility] [address] [id number], [place] [id number] Mar, [facility] [id number], [place] [id number] Mar, Diabetes type 1, uncontrolled E10.65 [facility] [address] [id number], [place] [id number] Feb, [facility] [id number], [place] [id number] Feb, [facility] [id number], [place] [id number] Feb, [address]00565100[place] [id number] Jan, [facility] [id number] [place] [address] [id number] Jan, Dysuria R30.0 and Acute cystitis with hematuria N30.01 [facility] [id number], [place] [id number] Jan, [facility] [id number], [place] [id number] Dec, Gastroenteritis K52.9 and Headache, unspecified headache type R51 [facility] [id number], [place] [id number] Dec, [facility] [id number] [place] [address] [id number] Dec, Chronic back pain 724.5 [facility] [address]00565100[place] [id number] Dec, [facility] [id number], [place] 560505059 Nov, Chronic back pain 724.5 and Diabetes mellitus without mention of complication, type II or unspecified type, uncontrolled 250.02 [facility] [id number], [place] [id number] Nov, [facility] [id number], [place] [id number] Oct, [facility] [id number], [place] [id number] Sep, Diabetes mellitus without mention of complication, type II or unspecified type, uncontrolled 250.02 and Urinary tract infection 599.0 [facility] [address] [facility] [id number] [place] [id number] July, [facility] [place] [facility] [address] [id number] [place] [address]- 7516 Jun, [facility] [place] [facility] [address] [facility] [id number] [place] [address]- 6356 Jun, [facility] [address] [facility] [id number], [place] [id number] May, [facility] [place] [facility] [address] [facility] [id number], [place] [address]- 2546 May, [facility] [address] [facility] [id number] [place] [address] [id number] May, [facility] [place] [facility] [address]00565100[place], [place] [address]- 2546 May, [facility] [id number], [place] [id number] Mar, [facility] [place] [facility] [address]00565100[place], [place] [address]- 7566 Mar, [facility] [place] [facility] [address]00565100[place], [place] [address]- 5756 Mar, [facility] [address] [id number], [place] [id number] Mar, [facility] [address] [id number], [place] [id number] Feb, [facility] [place] [facility] [address] [facility] [id number], [place] [address]- 2546 Feb, [facility] [address] [facility] [id number], [place] [id number] Feb, [facility] [place] [facility] [address] [facility] [id number], [place] [address]- 8906 Feb, [facility] [place] [facility] [address] [facility] [id number], [place] [address]- 2546 Feb, [facility] [address] [facility] [id number] [place] [id number] Feb, [facility] [address] [id number] [place] [id number] Feb, [facility] [place] [facility] [address] [facility] [id number] [place] [address]- 2546 Feb, [facility] [place] [facility] [address] [facility] [id number], [place] [address]- 2546 Feb, [facility] [address] [id number], [place] [id number] Jan, [facility] [place] [facility] [address] [id number] [place] [address]- 2546 Jan, [facility] [address] [facility] [id number] [place] [id number] Jan, [facility] [place] [facility] [address] [facility] [id number], [place] [address]- 2546 Jan, [facility] [address] [facility] [id number], [place] [id number] Dec, [facility] [place] [facility] [address] [facility] [id number], [place] [address]- 4076 Dec, [facility] [place] [facility] [address] [facility] [id number], [place] [address]- 3126 Dec, [facility] [place] [facility] [address] [facility] [id number], [place] [address]- 7706 Dec, [facility] [address] [facility] [id number], [place] [id number] Dec, [facility] [place] [facility] [address] [facility] [id number], [place] [address]- 2546 Dec, [facility] [address] [facility] [id number], [place] [id number] Nov, [facility] [place] [facility] [address] [id number], [place] [address]- 2546 Nov, [facility] [address] [id number], [place] [id number] Oct, [facility] [place] [facility] [address] [facility] [id number], [place] [address]- 7196 Oct, [facility] [place] [facility] [address] [facility] [id number], [place] [address]- 2316 Sep, [facility] [address] [facility] [id number] [place] [id number] Sep, [facility] [address] [facility] [id number] [place] [id number] Aug, [facility] [place] [facility] [address] [facility] [id number], [place] [address]- 0496 Aug, [facility] [address] [facility] [id number] [place] [id number] July, [facility] [place] [facility] [address] [facility] [id number], [place] [address]- 8876 July, [facility] [address] [facility] [id number] [place] [id number] July, [facility] [place] [facility] [address] [facility] [id number], [place] [address] July, [facility] [place] [facility] [address] [facility] [id number], [place] [address] July, [facility] [place] [facility] [address] [facility] [id number], [place] [address] Jun, [facility] [address] [facility] [id number][place] [id number] Jun, [facility] [address] [facility] [id number][place] [id number] Jun, [facility] [place] [facility] [address] [facility] [id number], [place] [address] Jun, [facility] [place] [facility] [address] [facility] [id number], [place] [address] Jun, [facility] [place] [facility] [address] [facility] [id number], [place] [address] May, [facility] [address] [facility] [id number][place] [id number] Apr, [facility] [address] [id number], [place] [address] Apr, [facility] [address] [facility] [id number] [place] [id number] Apr, [facility] [address] [id number] [place] [address] Apr, [facility] [place] [facility] [address] [facility] [id number] [place] [address] Mar, [facility] [address] [facility] [id number] [place] [address] Mar, [facility] [place] [facility] [address] [facility] [id number] [place] [address] Mar, [facility] [address] [id number] [id number] Mar, [facility] [id number], [place] [address] Mar, [facility] [address] [facility] [id number], [place] [address] Mar, [facility] [address] [facility] [id number], [place] [address] Feb, [facility] [address] [id number] [id number] Feb, [facility] [place] [facility] [address] [facility] [id number], [place] [address] Feb, [facility] [address] [facility] [id number][place] [id number] Feb, [facility] [place] [facility] [address] [id number], [place] [address] Feb, [facility] [address] [facility] [id number][place] [id number] Feb, [facility] [address] [facility] [id number], [place] [address] Feb, [facility] [address] [id number] [place] [id number] Jan, [facility] [address] [facility] [id number], [place] [address] Jan, [facility] [place] [facility] [address] [facility] [id number], [place] [address] Dec, [facility] [address] [id number] [place] [id number] Dec, [facility] [place] [facility] [address] [facility] [id number], [place] [address] Nov, [facility] [address] [id number] [place] [id number] Oct, [facility] [address] [id number] [place] [id number] Oct, [facility] [address] [id number] [place] [id number] Sep, [facility] [address] [facility] [id number], [place] [address] Sep, [facility] [address] [id number] [place] [address] Sep, [facility] [address] [id number] [place] [id number] Sep, [facility] [address] [id number] [place] [id number] Sep, [facility] [address] [id number] [place] [id number] Sep, [facility] [address] [id number] [place] [id number] Sep, [facility] [place] [facility] [address] [facility] [id number], [place] [address] Aug, [facility] [address] [id number] [place] [id number] Aug, [facility] [place] [facility] [address] [facility] [id number], [place] [address] July, [facility] [address] [id number][place] [id number] July, [facility] [address] [facility] [id number], [place] [address] July, [facility] [address] [id number] [place] [id number] Jun, [facility] [address] [id number] [place] [id number] Jun, [facility] [address] [id number] [place] [id number] Jun, [facility] [address] [facility] [id number], [place] [address] Jun, [facility] [address] [id number] [place] [id number] May, [facility] [address] [facility] [id number] [place] [id number] May, [facility] [address]65[place], [place] [address] May, [facility] [address] [facility] [id number] [place] [id number] Apr, [facility] [address] [facility] [id number], [place] [address] Apr, [facility] [address] [facility] [id number] [place] [id number] Apr, [facility] [address] [facility] [id number] [place] [id number] Apr, [facility] [address] [facility] [id number], [place] [address] Mar, [facility] [address] [id number] [place] [id number] Mar, [facility] [address] [id number] [place] [id number] Mar, [facility] [address] [facility] [id number] [place] [id number] Feb, [facility] [id number], [place] [address] Feb, [facility] [address] [id number][place] [id number] Jan, [facility] [address] [id number] [place] [id number] Jan, [facility] [place] [facility] [address] [facility] [id number], [place] [address] 2546 Jan, [facility] [address] [facility] [id number], [place] [address]40 Jan, [facility] [address] [id number][place] [id number] Jan, [facility] [address] [facility] [id number], [place] [address] Jan, [facility] [address] [id number], [place] [id number] Dec, [facility] [id number], [place] [address] Dec, [facility] [address] [id number], [place] 726238441 Dec, [facility] [address] [facility] [id number], [place] [address] 2546 Dec, [facility] [address] [id number], [place] [id number] Dec, [facility] [address] [id number], [place] [address] Nov, [facility] [address] [id number], [place] [address]38[address]249 Nov, [facility] [address] [id number], [place] [id number] Oct, [facility] [address] [id number], [place] 6[address]256 Oct, [facility] [address] [id number], [place] [address]38943663 Sep, [facility] [address] [id number], [place] [id number] Sep, [facility] [address] [id number], [place] [id number] Sep, [facility] [address] [id number] [place] 2017[address]195 Aug, [facility] [address] [id number] [place] [id number] Aug, [facility] [address] [id number] [place] [address] July, [facility] [address] [id number] [place] [id number] July, [facility] [address] [id number] [place] [id number] July, [facility] [address] [id number] [place] [id number] July, [facility] [address]65100[place], [place] [address] Jun, [facility] [address] [id number] [place] [id number] Jun, [facility] [address] [id number] [place] [id number] Jun, [facility] [address] [id number] [place] [id number] Jun, [facility] [address] [id number] [place] [id number] May, [facility] [address] [id number] [place] [id number] May, [facility] [address] [id number] [place] [id number] Apr, [facility] [address] [id number] [place] [id number] Apr, [facility] [address] [id number] [place] [id number] Apr, [facility] [address] [id number] [place] [id number] Apr, [facility] [address] [id number] [place] [id number] Apr, [facility] [id number] [place] [address] Apr, [facility] [address] [id number] [place] [id number] Apr, [facility] [address] [id number] [place] [id number] Apr, [facility] [address] [id number] [place] [id number] Mar, [facility] [facility] [address] [facility] [id number], [place] [address] Feb, [facility] [place] [facility] [address] [id number], [place] [address] Feb, [facility] [place] [facility] [address] [facility] [id number], [place] 754635[address] Feb, [facility] [place] [facility] [address] [id number], [place] [address] Feb, [facility] [place] [facility] [address] [id number], [place] [address] Jan, [facility] [place] [facility] [address] [id number], [place] [address] Jan, [facility] [place] [facility] [address] [id number], [place] [address] Jan, [facility] [place] [facility] [address] [id number], [place] [address] Dec, [facility] [place] [facility] [address] [facility] [id number], [place] [address]- [address] Dec, [facility] [place] [facility] [address] [facility] [id number], [place] [address]- [address] Aug, [facility] [place] [facility] [address] [facility] [id number], [place] [address]- [address] Aug, [facility] [place] [facility] [address] [facility] [id number], [place] [address]- [address] Feb, [facility] [place] [facility] [address] [facility] [id number], [place] [address]- 119[address] Feb, [facility] [place] [facility] [address] [id number] [place] [address]- [address]245 Jan, [facility] [place] [facility] [address] [id number], [place] [address]- [address] Jan, [facility] [place] [facility] [address] [facility] [id number] [place] [address]- 5946 Dec, [facility] [place] [facility] [address] [id number] [place] [address]- 36[address] Dec, [facility] [place] [facility] [address] [id number] [place] [address]- [address] Dec, [facility] [place] [facility] [address] [id number] [place] [address]- 79[address] May, [facility] [place] [facility] [address] [facility] [id number], [place] [address]- [address] Mar, [facility] [place] [facility] [address] [facility] [id number] [place] [address]- [address]359 Feb, [facility] [place] [facility] [address] [facility] [id number], [place] [address]- 47[address] Feb, [facility] [place] [facility] [address] [facility] [id number], [place] [address]- [address]573 Feb, [facility] [place] [facility] [address] [facility] [id number], [place] [address]- 9498 Jan, [facility] [place] [facility] [address] [facility] [id number], [place] [address]- [address] Jan, [facility] [place] [facility] [address] [facility] [id number], [place] [address]- [address] Oct, [facility] [place] [facility] [address] [facility] [id number], [place] [address]- 2417 July, [facility] [place] [facility] [address] [facility] [id number] [place] [address]- 3974 Apr, [facility] [place] [facility] [address] [facility] [id number] [place] [address]- [address] Jan, [facility] [address] [facility] [id number] [place] [address] Jan, IMMUNIZATIONS No Known Immunizations SOCIAL HISTORY Never Assessed REASON FOR VISIT ER f/u UTI and Hypoglycemia [place] [facility] PLAN OF CARE Activity Details Follow Up as schd Reason:depression dm htn VITAL SIGNS Height 64 in 2017-05-20 Weight 184 lbs 2017-05-20 Temperature 98.4 degrees Fahrenheit 2017-05-20 Heart Rate 84 bpm 2017-05-20 Respiratory Rate 16 2017-05-20 BMI 31.58 kg/m2 2017-05-20 Blood pressure systolic 120 mmHg 2017-05-20 Blood pressure diastolic 76 mmHg 2017-05-20 MEDICATIONS Medication Instructions Dosage Frequency Start Date End Date Duration Status Gabapentin 300 MG TAKE ONE (1) CAPSULE BY MOUTH THREE (3) TIMES A DAY... Active Safety Insulin Syringes 30G X 1/2 as directed Apr, Active Levemir 100 UNIT/ML Subcutaneous 2 times a day 72 u 12h Jun, Active Glimepiride 4 MG Orally 2 times a day TAKE 1 TAB 12h Active Losartan Potassium 50 MG Orally Once a day 1.5 tablet 24h Active NovoFine 32G X 6 MM subcutaneous 2 times a day DX 250.00 1 needle Nov Active Amitriptyline HCl 100 MG TAKE ONE (1) TABLET BY MOUTH DAILY... Active Insulin Syringe 31G X 5/16 subcutaneously 2 times a day, E11.9 as directed Feb, Active Victoza 18 MG/3ML Subcutaneous Once a day 1.8 mg 24h Active Lovastatin 20 mg Orally Once a day with a meal 1 tablet 30 days Active Hydrochlorothiazide 25 MG TAKE ONE (1) TABLET BY MOUTH DAILY... Active Aspirin Adult Low Strength 81 MG Orally Once a day 1 tablet 24h Active Pramipexole Dihydrochloride 0.5 MG Orally Once a day 2-3 hours before bedtime 2 tablets 30 days Active Metformin HCl 1000 MG Orally 2 times a day TAKE 1 TABLET BY MOUTH TWICE DAILY WITH MEALS... 12h Active Naproxen 500 mg Orally every 12 hrs 1 tablet with food or milk as needed 12h Jan, Active Poly-Iron 150 Forte 150-25-1 MG-MCG-MG Orally 2 times a day 1 capsule 12h 30 days Active Calcium 600 MG Orally Once a day 1 tablet with meals 24h Active Hydrocodone-Acetaminophen 7.5-325 MG Orally every 4-6 hrs PRN, Must last 28 days 1 tablet May, Active RESULTS No Results PROCEDURES Procedure Date Ordered Result Body Site FOR[facility], [facility] VISIT ESTABLISHED PATIENT May 20, 2017 INSTRUCTIONS MEDICATIONS ADMINISTERED No Known Medications [...] Hospitalization History surgeries, childbirth Hospitalization History ED [place]- Possible Stroke 05/16/2017
--- OUTSIDE RECORDS SUMMARY | 2017-10-11 06:04 | XMS REPORT ---
Author Author CATRACHITA MOLINA [facility] Address [address] [place] [address] Care Team Providers Care Building Rigger Name Role Phone CATRACHITA MOLINA Unavailable PROBLEMS Type Condition ICD9-CM Code FNE17-AY Code Onset Dates Condition Status SNOMED Code Problem RLS (restless legs syndrome) G25.81 Active 99623072 Problem Encounter for immunization Z23 Active 403465641 Problem Essential hypertension I10 Active 92979304 Problem Diabetes type 2, controlled E11.9 Active 61539443 Problem Diabetic polyneuropathy associated with type 2 diabetes mellitus E11.42 Active 48568723 Problem Other chronic pain G89.29 Active 24549905 Problem Hypoglycemia E16.2 Active 860625788 Problem Reactive depression F32.9 Active 81209820 Problem Type 2 diabetes mellitus with hyperglycemia E11.65 Active 627398321042239 Problem Spinal stenosis, unspecified spinal region M48.00 Active 26416287 Problem Type 2 diabetes mellitus with other specified complication E11.69 Active 62316784357308 Problem Hyperlipidemia, unspecified E78.5 Active 41396355 ALLERGIES No Known Allergies ENCOUNTERS Encounter Location Date Diagnosis [facility] [id number] [address] Sep, [facility] [id number] [place] [address] [id number] Sep, Spinal stenosis, unspecified spinal region M48.00 [facility] [address] [facility] [id number] [place] [address] [id number]- 3587 Aug, [facility] [id number] [place] [address] [id number] Aug, Spinal stenosis, unspecified spinal region M48.00 [facility] [id number] [place] [address] [id number] Aug, Spinal stenosis, unspecified spinal region M48.00 [facility] [id number], [place] [id number] July, [facility] [id number] [place] [address] [phone] July, Diabetic polyneuropathy associated with type 2 diabetes mellitus E11.42 ; Type 2 diabetes mellitus with hyperglycemia E11.65 ; RLS (restless legs syndrome ) G25.81 and Essential hypertension I10 [facility] [id number] [place] [address] [phone] July, Spinal stenosis, unspecified spinal region M48.00 [facility] [id number] [place] [address] [id number] July, [facility] [id number] [place] [address] [id number] Jun, Type 2 diabetes mellitus with other specified complication E11.69 [facility] [id number] [place] [address] [id number] Jun, Spinal stenosis, unspecified spinal region M48.00 [facility] [place] [facility] [id number] [place] [address] [id number] Jun, Hypoglycemia E16.2 [facility] [id number] [place] [address] [id number] May, Hypoglycemia E16.2 ; Acute cystitis with hematuria N30.01 and Essential hypertension I10 [facility] [id number] [address] May, [facility] [id number], [place] [phone] May, Spinal stenosis, unspecified spinal region M48.00 [facility] [address] [id number][place] [phone] May, Reactive depression F32.9 [facility] [id number] [place] [address] [id number] May, [facility] [id number], [place] [id number] Apr, [facility] [address] [facility] [id number] [phone] Apr, [facility] [address] [id number][place] [id number] Apr, [facility] [id number] [place] [address] [id number] Apr, [facility] [address] [id number] [place] [address] [id number] Apr, Spinal stenosis, unspecified spinal region M48.00 [facility] [id number] [place] [address] [id number] Apr, Type 2 diabetes mellitus with other specified complication E11.69 ; Spinal stenosis, unspecified spinal region M48.00 ; Reactive depression F32.9 and Essential hypertension I10 [facility] [address] [facility] [address] [id number], [place] [id number] Apr, [facility] [address] [id number] [place] [address] [id number] Mar, Spinal stenosis, unspecified spinal region M48.00 [facility] [id number] [place] [address] [id number] Feb, Acute non-recurrent maxillary sinusitis J01.00 and Essential hypertension I10 [facility] [id number] [place] [address] [id number] Feb, Spinal stenosis, unspecified spinal region M48.00 [facility] [address] [id number] [place] [address] [phone] Feb, Type 2 diabetes mellitus with other specified complication E11.69 [facility] [id number] [place] [address] [id number] Feb, Type 2 diabetes mellitus with other specified complication E11.69 and Essential hypertension I10 [facility] [address] [id number], [place] [phone] Feb, [facility] [address] [id number] [place] [address] [id number] Feb, [facility] [address] [id number] [place] [address] [id number] Jan, Spinal stenosis, unspecified spinal region M48.00 [facility] [address] [id number] [place] [address] [id number] Jan, Diabetic polyneuropathy associated with type 2 diabetes mellitus E11.42 [facility] [id number], [place] [phone] Jan, Diabetic polyneuropathy associated with type 2 diabetes mellitus E11.42 [facility] [id number] [place] [address] [id number] Jan, Type 2 diabetes mellitus with hyperglycemia E11.65 ; Type 2 diabetes mellitus with other specified complication E11.69 ; Spinal stenosis, unspecified spinal region M48.00 and Essential hypertension I10 [facility] [id number] [place] [address] [id number] Jan, Diabetic polyneuropathy associated with type 2 diabetes mellitus E11.42 [facility] [place] [id number] [place] [address] [id number] Dec, [facility] [id number] [place] [address] [phone] Dec, Diabetic polyneuropathy associated with type 2 diabetes mellitus E11.42 ; Type 2 diabetes mellitus with other specified complication E11.69 ; Hyperlipidemia, unspecified E78.5 ; Thyroid disorder E07.9 and Thyroid disorder screening Z13.29 [facility] [place] [id number], [place] [id number] Dec, Diabetic polyneuropathy associated with type 2 diabetes mellitus E11.42 [facility] [address]005[address]100[place] [address] Dec, Diabetic polyneuropathy associated with type 2 diabetes mellitus E11.42 [facility] [place] [id number], [place] [phone] Dec, Spinal stenosis, unspecified spinal region M48.00 [facility] [id number], [place] [phone] Dec, [facility] [place] [id number] [place] [address] [id number] 18 Nov, 2016 Diabetic polyneuropathy associated with type 2 diabetes mellitus E11.42 [facility] [place] [id number] [place] [address] [id number] 15 Nov, 2016 Other chronic pain G89.29 [facility] [address] [id number], [place] [id number] 14 Nov, 2016 Spinal stenosis, unspecified spinal region M48.00 [facility] [address] [id number] [place] [address] [id number] Oct, Spinal stenosis, unspecified spinal region M48.00 ; Essential hypertension I10 ; RLS (restless legs syndrome) G25.81 and Diabetic polyneuropathy associated with type 2 diabetes mellitus E11.42 [facility] [id number] [place] [address] [id number] Oct, Spinal stenosis, unspecified spinal region M48.00 [facility] [address] [id number] [place] [phone] Sep, Diabetic polyneuropathy associated with type 2 diabetes mellitus E11.42 ; RLS (restless legs syndrome) G25.81 ; Spinal stenosis, unspecified spinal region M48.00 and Essential hypertension I10 [facility] [id number] [place] [address] [id number] 14 Sep, 2016 [facility] [id number] [place] [address] [id number] Sep, Spinal stenosis, unspecified spinal region M48.00 [facility] [address] [id number], [place] [id number] Sep, [facility] [id number] [place] [address] [id number] Aug, Spinal stenosis, unspecified spinal region M48.00 [facility] [address]005[address]100[place] [address] July, [facility] [id number], [place] [id number] July, Spinal stenosis, unspecified spinal region M48.00 [facility] [address] [id number], [place] [id number] Jun, Type 2 diabetes mellitus with hyperglycemia E11.65 [facility] [address] [id number] [place] [address] [id number] Jun, Spinal stenosis, unspecified spinal region M48.00 [facility] [id number] [place] [address] [id number] May, Spinal stenosis, unspecified spinal region M48.00 [facility] [address] [id number], [place] [id number] Apr, Spinal stenosis, unspecified spinal region M48.00 [facility] [address] [facility] [id number] [address]- [address]46 Mar, [facility] [place] [address] [id number], [place] [id number] Mar, Type 2 diabetes mellitus with hyperglycemia E11.65 ; RLS (restless legs syndrome) G25.81 and Spinal stenosis, unspecified spinal region M48.00 [facility] [id number] [place] [address] 97388 2546 Mar, [facility] [address] [id number], [place] [id number] Mar, [facility] [address]005[address] [phone] Mar, [facility] [place] [id number], [place] [phone] Feb, [facility] [id number] [place] [address] 97091- 4056 Feb, [facility] [id number], [place] [id number] Feb, [facility] [place] [address] [id number], [place] [id number] Feb, [facility] [address]00565100[place] [address] 2546 Feb, [facility] [address]005[address]100[place] [address]- 2546 Feb, [facility] [place] [address] [id number], [place] [phone] Jan, [facility] [place] [facility] [address] [id number], [place] [id number] Dec, Diabetic polyneuropathy associated with type 2 diabetes mellitus E11.42 ; Other chronic pain G89.29 ; Essential hypertension I10 and Encounter for immunization Z23 [facility] [place] [id number], [place] [id number] Dec, [facility] [address] [address]- 9726 Nov, [facility] [facility] [id number] [place] [address] [id number] Nov, [facility] [id number] [place] [address] [id number] Nov, Diabetes type 2, controlled E11.9 [facility] [place] [id number] [place] [address] [id number] 14 Nov, 2015 Diabetes type 2, controlled E11.9 ; Other chronic pain G89.29 ; Essential hypertension I10 ; Diabetic polyneuropathy associated with type 2 diabetes mellitus E11.42 and RLS (restless legs syndrome) G25.81 [facility] [id number] [place] [address] 23794- 0325 Nov, [facility] [id number] [place] [address] [id number] Oct, [facility] [id number] [place] [address] [id number] Oct, [facility] [id number] [place] [address] [id number] Oct, [facility] [id number] [place] [address] 46663- 7764 Oct, [facility] [id number] [place] [address] [id number] Sep, [facility] [id number] [place] [address] [id number] Sep, [facility] [address] [address]- [address] Sep, Dental examination Z01.20 [facility] [id number] [place] [address] [id number]- 6624 Aug, [facility] [id number] [place] [address] [id number] Aug, [facility] [address] [facility] [id number] [address]- 0996 Aug, [facility] [address] [facility] [id number] [address]- 0154 July, [facility] [address] [facility] [id number] [address]- 1565 July, [facility] [address] [facility] [id number] [address]- [address] July, [facility] [address] [id number], [place] [id number] July, [facility] [address] [id number] [place] [address] [id number] July, [facility] [address] [id number] [place] [address] [id number] July, [facility] [address]00565100[place] [address]- [address] July, [facility] [address] [id number], [place] [id number] Jun, Diabetes type 2, controlled E11.9 [facility] [id number] [place] [address] [id number] Jun, [facility] [address] [id number] [place] [address] [id number] May, Diabetes type 1, uncontrolled E10.65 [facility] [address] [id number], [place] [id number] May, [facility] [address] [id number], [place] [id number] Apr, [facility] [address] [id number] [place] [id number] Apr, [facility] [address] [id number], [place] 738394350 Mar, [facility] [address] [id number], [place] [id number] Mar, [facility] [address] [id number], [place] [id number] Mar, [facility] [id number], [place] [id number] Mar, Diabetes type 1, uncontrolled E10.65 [facility] [address] [id number], [place] [id number] Feb, [facility] [id number], [place] [id number] Feb, [facility] [id number], [place] [id number] Feb, [place] [address]005[address]100[place] [id number] Jan, [facility] [id number] [place] [address] [id number] Jan, Dysuria R30.0 and Acute cystitis with hematuria N30.01 [facility] [id number], [place] [id number] Jan, [facility] [id number], [place] [id number] Dec, Gastroenteritis K52.9 and Headache, unspecified headache type R51 [facility] [id number], [place] [id number] Dec, [facility] [id number] [place] [address] [id number] Dec, Chronic back pain 724.5 [facility] [address]00565100[place] [id number] Dec, [facility] [id number], [place] [id number] Nov, Chronic back pain 724.5 and Diabetes mellitus without mention of complication, type II or unspecified type, uncontrolled 250.02 [facility] [id number], [place] [id number] Nov, [facility] [id number], [place] [id number] Oct, [facility] [id number], [place] [id number] Sep, Diabetes mellitus without mention of complication, type II or unspecified type, uncontrolled 250.02 and Urinary tract infection 599.0 [facility] [address] [facility] [id number] [place] [id number] July, [facility] [place] [facility] [address] [id number] [place] [address]- 4836 Jun, [facility] [place] [facility] [address] [facility] [id number] [place] [address]- 7336 Jun, [facility] [address] [facility] [id number], [place] [id number] May, [facility] [place] [facility] [address] [facility] [id number] [address]- 2546 May, [facility] [address] [facility] [id number] [place] [address] [id number] May, [facility] [place] [facility] [address]00565100[place] [address]- 2546 May, [facility] [id number], [place] [id number] Mar, [facility] [place] [facility] [address]00565100[place] [address]- 7856 Mar, [facility] [place] [facility] [address]00565100[place] [address]- 6026 Mar, [facility] [address] [id number], [place] [id number] Mar, [facility] [address] [id number], [place] [id number] Feb, [facility] [place] [facility] [address] [facility] [id number] [address]- 2546 Feb, [facility] [address] [facility] [id number], [place] [id number] Feb, [facility] [place] [facility] [address] [facility] [id number] [address]- 9966 Feb, [facility] [place] [facility] [address] [facility] [id number] [address]- 2546 Feb, [facility] [address] [facility] [id number] [place] [id number] Feb, [facility] [address] [id number] [place] [id number] Feb, [facility] [place] [facility] [address] [facility] [id number] [place] [address]- 2546 Feb, [facility] [place] [facility] [address] [facility] [id number] [address]- 2546 Feb, [facility] [address] [id number], [place] [id number] Jan, [facility] [place] [facility] [address] [id number] [place] [address]- 2546 Jan, [facility] [address] [facility] [id number] [place] [id number] Jan, [facility] [place] [facility] [address] [facility] [id number][place] [address]- 2546 Jan, [facility] [address] [facility] [id number], [place] [id number] Dec, [facility] [place] [facility] [address] [facility] [id number] [address]- 8196 Dec, [facility] [place] [facility] [address] [facility] [id number] [address]- 5786 Dec, [facility] [place] [facility] [address] [facility] [id number] [address]- 4186 Dec, [facility] [address] [facility] [id number], [place] [id number] Dec, [facility] [place] [facility] [address] [facility] [id number] [address]- 2546 Dec, [facility] [address] [facility] [id number], [place] [id number] Nov, [facility] [place] [facility] [address] [id number] [address]- 2546 Nov, [facility] [address] [id number], [place] [id number] Oct, [facility] [place] [facility] [address] [facility] [id number] [address]- 7786 Oct, [facility] [place] [facility] [address] [facility] [id number] [address]- 5456 Sep, [facility] [address] [facility] [id number] [place] [id number] Sep, [facility] [address] [facility] [id number] [place] [id number] Aug, [facility] [place] [facility] [address] [facility] [id number] [address]- 1296 Aug, [facility] [address] [facility] [id number] [place] [id number] July, [facility] [place] [facility] [address] [facility] [id number] [address]- 3196 July, [facility] [address] [facility] [id number] [place] [id number] July, [facility] [place] [facility] [address] [facility] [id number] [address]- 7060 July, [facility] [place] [facility] [address] [facility] [id number] [address]- 0249 July, [facility] [place] [facility] [address] [facility] [id number] [address]- 5886 Jun, [facility] [address] [facility] [id number], [place] [id number] Jun, [facility] [address] [facility] [id number], [place] [id number] Jun, [facility] [place] [facility] [address] [facility] [id number] [address] Jun, [facility] [place] [facility] [address] [facility] [id number], [place] [address] Jun, [facility] [place] [facility] [address] [facility] [id number] [address] May, [facility] [address] [facility] [id number][place] [id number] Apr, [facility] [address] [id number], [place] [address] Apr, [facility] [address] [facility] [id number] [place] [id number] Apr, [facility] [address] [id number] [place] [address] Apr, [facility] [place] [facility] [address] [facility] [id number] [place] [address] Mar, [facility] [address] [facility] [id number] [place] [address] Mar, [facility] [place] [facility] [address] [facility] [id number] [place] [address] Mar, [facility] [address] [id number][place] [id number] Mar, [facility] [id number] [address] Mar, [facility] [address] [facility] [id number], [place] [address] Mar, [facility] [address] [facility] [id number], [place] [address] Feb, [facility] [address] [id number][place] [id number] Feb, [facility] [place] [facility] [address] [facility] [id number], [place] [address] Feb, [facility] [address] [facility] [id number][place] [id number] Feb, [facility] [place] [facility] [address] [id number], [place] [address] Feb, [facility] [address] [facility] [id number][place] [id number] Feb, [facility] [address] N [facility] [id number] [address] Feb, [facility] [address] [id number] [place] [id number] Jan, [facility] [address] [facility] [id number] [address] Jan, [facility] [place] [facility] [address] [facility] [id number], [place] [address] Dec, [facility] [address] [id number] [place] [id number] Dec, [facility] [place] [facility] [address] [facility] [id number], [place] [address] Nov, [facility] [address] [id number] [place] [id number] Oct, [facility] [address] [id number] [place] [id number] Oct, [facility] [address] [id number] [place] [id number] Sep, [facility] [address] [facility] [id number] [address] Sep, [facility] [address] [id number] [place] [id number] Sep, [facility] [address] [id number] [place] [id number] Sep, [facility] [address] [id number] [place] [id number] Sep, [facility] [address] [id number] [place] [id number] Sep, [facility] [address] [id number] [place] [id number] Sep, [facility] [place] [facility] [address] [facility] [id number] [address] Aug, [facility] [address] [id number] [place] [id number] Aug, [facility] [place] [facility] [address] [facility] [id number], [place] [address] July, [facility] [address] [id number][place] [id number] July, [facility] [address] [facility] [id number][place] [address] July, [facility] [address] [id number] [place] [id number] Jun, [facility] [address] [id number] [place] [id number] Jun, [facility] [address] [id number] [place] [id number] Jun, [facility] [address] [facility] [id number][place] [address] Jun, [facility] [address] [id number] [place] [id number] May, [facility] [address] [facility] [id number] [place] [id number] May, [facility] [id number], [place] [address] May, [facility] [address] [facility] [id number] [place] [id number] Apr, [facility] [address] [facility] [id number][place] [address] Apr, [facility] [address] [facility] [id number] [place] [id number] Apr, [facility] [address] [facility] [id number] [place] [id number] Apr, [facility] [address] [facility] [id number] [address] Mar, [facility] [address] [id number] [place] [id number] Mar, [facility] [address] [id number] [place] [id number] Mar, [facility] [address] [facility] [id number] [place] [id number] Feb, [facility] [id number], [place] [address] Feb, [facility] [address] [id number][place] [id number] Jan, [facility] [address] [id number] [place] [id number] Jan, [facility] [place] [facility] [address] [facility] [id number], [place] [address] 2546 Jan, [facility] [address] [facility] [id number] [address] 254 Jan, [facility] [address] [id number], [place] [id number] Jan, [facility] [address] [facility] [id number], [place] [address] Jan, [facility] [address] [id number], [place] [id number] Dec, [facility] [id number], [place] [address] Dec, [facility] [address] [id number][place] [id number] Dec, [facility] [address] [facility] [id number] [address] 2546 Dec, [facility] [address] [id number], [place] 10[address]00071 Dec, [facility] [address] [id number][place] [id number] Nov, [facility] [address] [id number], [place] [id number] Nov, [facility] [address] [id number], [place] [id number] Oct, [facility] [address] [id number], [place] [id number] Oct, [facility] [address] [id number], [place] [id number] Sep, [facility] [address] [id number], [place] 035552551 Sep, [facility] [address] [id number], [place] [id number] Sep, [facility] [address] [id number] [place] [id number] Aug, [facility] [address] [id number] [place] [id number] Aug, [facility] [address] [id number] [place] [id number] July, [facility] [address] [id number] [place] [id number] July, [facility] [address] [id number] [place] [id number] July, [facility] [address] [id number] [place] [id number] July, [facility] [id number], [place] [address] Jun, [facility] [address] [id number] [place] [id number] Jun, [facility] [address] [id number] [place] [id number] Jun, [facility] [address] [id number] [place] [id number] Jun, [facility] [address] [id number] [place] [id number] May, [facility] [address] [id number] [place] [id number] May, [facility] [address] [id number] [place] [id number] Apr, [facility] [address] [id number] [place] [id number] Apr, [facility] [address] [id number] [place] [id number] Apr, [facility] [address] [id number] [place] [id number] Apr, [facility] [address] [id number] [place] [id number] Apr, [facility] [id number] [place] [address] Apr, [facility] [address] [id number] [place] [id number] Apr, [facility] [address] [id number] [place] [id number] Apr, [facility] [address] [id number] [place] [id number] Mar, [facility] [place] [facility] [address] [facility] [id number], [place] [address] 269[address] Feb, [facility] [place] [facility] [address] [id number], [place] [address]- 1334 Feb, [facility] [place] [facility] [address] [facility] [id number], [place] 614326- [address]374 Feb, [facility] [place] [facility] [address] [id number] [address]- [address] Feb, [facility] [place] [facility] [address] [id number], [place] [address]- 5461 Jan, [facility] [place] [facility] [address] [id number], [place] [address]- 1227 Jan, [facility] [place] [facility] [address] [id number], [place] [address]- [address] Jan, [facility] [place] [facility] [address] [id number], [place] [address]- [address] Dec, [facility] [place] [facility] [address] [facility] [id number], [place] [address]- 8078 Dec, [facility] [place] [facility] [address] [facility] [id number] [address]- 0990 Aug, [facility] [place] [facility] [address] [facility] [id number][place] [address]- 2886 Aug, [facility] [place] [facility] [address] [facility] [id number] [address]- 2950 Feb, [facility] [place] [facility] [address] [facility] [id number][place] [address]- 0479 Feb, [facility] [place] [facility] [address] [id number] [place] [address]- 1066 Jan, [facility] [place] [facility] [address] [id number] [address]- 1376 Jan, [facility] [place] [facility] [address] [facility] [id number] [place] [address]- 9916 Dec, [facility] [place] [facility] [address] [id number] [place] [address]- 0612 Dec, [facility] [place] [facility] [address] [id number] [place] [address]- 8230 Dec, [facility] [place] [facility] [address] [id number] [place] [address]- 8794 May, [facility] [place] [facility] [address] [facility] [id number], [place] [address]- 1432 Mar, [facility] [place] [facility] [address] [facility] [id number] [place] [address]- 9817 Feb, [facility] [place] [facility] [address] [facility] [id number], [place] [address]- 7122 Feb, [facility] [place] [facility] [address] [facility] [id number] [address]- 5179 Feb, [facility] [place] [facility] [address] [facility] [id number] [address]- 6731 Jan, [facility] [place] [facility] [address] [facility] [id number], [place] [address]- 7730 Jan, [facility] [place] [facility] [address] [facility] [id number], [place] [address]- 0810 Oct, [facility] [place] [facility] [address] [facility] [id number], [place] [address]- 6099 July, [facility] [place] [facility] [address] [facility] [id number] [place] [address]- 9552 Apr, [facility] [place] [facility] [address] [facility] [id number] [place] [address]- 1193 Jan, [facility] [address] [facility] [id number] [place] [address]- 8898 Jan, IMMUNIZATIONS No Known Immunizations SOCIAL HISTORY Never Assessed REASON FOR VISIT 1 month follow up on depression. catarino Bookre PLAN OF CARE Activity Details Follow Up 4 Weeks Reason:depression VITAL SIGNS Height 64 in 2017-05-09 Weight 184.8 lbs 2017-05-09 Temperature 98.2 degrees Fahrenheit 2017-05-09 Heart Rate 94 bpm 2017-05-09 Respiratory Rate 16 2017-05-09 BMI 31.72 kg/m2 2017-05-09 Blood pressure systolic 128 mmHg 2017-05-09 Blood pressure diastolic 80 mmHg 2017-05-09 MEDICATIONS Medication Instructions Dosage Frequency Start Date End Date Duration Status Metformin HCl 1000 MG Orally 2 times a day TAKE 1 TABLET BY MOUTH TWICE DAILY WITH MEALS... 12h Active NovoFine 32G X 6 MM subcutaneous 2 times a day DX 250.00 1 needle 09 Nov Active Hydrochlorothiazide 25 MG TAKE ONE (1) TABLET BY MOUTH DAILY... Active Levemir 100 UNIT/ML Subcutaneous 2 times a day 72 u 12h Jun, Active Naproxen 500 mg Orally every 12 hrs 1 tablet with food or milk as needed 12h 06 Jan, 2017 Active Gabapentin 300 MG TAKE ONE (1) CAPSULE BY MOUTH THREE (3) TIMES A DAY... Active Aspirin Adult Low Strength 81 MG Orally Once a day 1 tablet 24h Active Safety Insulin Syringes 30G X 1/2 as directed Apr, Active Poly-Iron 150 Forte 150-25-1 MG-MCG-MG Orally 2 times a day 1 capsule 12h 30 days Active Glimepiride 4 MG Orally 2 times a day TAKE 1 TAB 12h Active Hydrocodone-Acetaminophen 7.5-325 MG Orally every 4-6 hrs PRN, Must last 28 days 1 tablet Apr, Active Losartan Potassium 50 MG Orally Once a day 1.5 tablet 24h Active Amitriptyline HCl 100 MG TAKE ONE (1) TABLET BY MOUTH DAILY... Active Lovastatin 20 mg Orally Once a day with a meal 1 tablet 30 days Active Victoza 18 MG/3ML Subcutaneous Once a day 1.8 mg 24h Active Calcium 600 MG Orally Once a day 1 tablet with meals 24h Active Insulin Syringe 31G X 5/16 subcutaneously 2 times a day, E11.9 as directed Feb, Active Sertraline HCl 50 mg Orally Once a day 1 1/2 tablets 24h Apr, Active Pramipexole Dihydrochloride 0.5 MG Orally Once a day 2-3 hours before bedtime 2 tablets 30 days Active RESULTS No Results PROCEDURES Procedure Date Ordered Result Body Site [facility] VISIT ESTABLISHED PATIENT May 09, 2017 INSTRUCTIONS MEDICATIONS ADMINISTERED No Known Medications [...] Hospitalization History surgeries, childbirth Hospitalization History ED [place]- Possible Stroke 05/16/2017
[2017-10-11] MEDS ORDERED: VANCOMYCIN/BSS (COMPOUNDED) 10 MG/ML SYR OP ONE (06:15)
[2017-10-11] MEDS ORDERED: EPINEPHrine INJECTION 1 MG/ML AMP INJ ONE ×2 (06:15→07:00)
[2017-10-11] MEDS ORDERED: POVIDONE (BETADINE) OPHTH SOLN 5% 30 ML OP ONE (06:15)
[2017-10-11] MEDS ORDERED: LIDOCAINE PF 1% 2 ML AMP IR PRN (06:15)
[2017-10-11] MEDS ORDERED: TIMOLOL MALEATE 0.5% 5 ML (TIMOPTIC) BTL OU PRN (06:15)
[2017-10-11] MEDS: TETRACAINE 0.5% OPHTH SOLN 4 ML BTL (SINGLE DOSE ONLY) OU PRN ×4 (06:18→06:36)
[2017-10-11 06:19] VITALS: BP 133/87
--- OUTSIDE RECORDS SUMMARY | 2017-10-11 06:23 | XMS REPORT | Continuity of Care Document ---
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, [place] E 250.02 DIABETES MELLITUS TYPE 2 - UNCOMPLICATED, UNCONTROLLED 10/10/2007 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, [place] E 272.4 DYSLIPIDEMIA 10/10/2007 SOLO DO, JOSE LUIS K 250.02 DIABETES MELLITUS TYPE 2 - UNCOMPLICATED, UNCONTROLLED 10/10/2007 SOLO DO, JOSE LUIS K 272.4 DYSLIPIDEMIA 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, [place] E 250.02 DIABETES MELLITUS TYPE 2 - UNCOMPLICATED, UNCONTROLLED 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, [place] E 272.4 DYSLIPIDEMIA 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, [place] E 250.02 DIABETES MELLITUS TYPE 2 - UNCOMPLICATED, UNCONTROLLED 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, [place] E 272.4 DYSLIPIDEMIA 10/10/2007 SOLO DO, JOSE LUIS K 250.02 DIABETES MELLITUS TYPE 2 - UNCOMPLICATED, UNCONTROLLED 10/10/2007 SOLO DO, JOSE LUIS K 272.4 DYSLIPIDEMIA 10/10/2007 SOLO DO, JOSE LUIS K 250.02 DIABETES MELLITUS TYPE 2 - UNCOMPLICATED, UNCONTROLLED 10/10/2007 SOLO DO, JOSE LUIS K 272.4 DYSLIPIDEMIA 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, [place] E 250.02 DIABETES MELLITUS TYPE 2 - UNCOMPLICATED, UNCONTROLLED 10/10/2007 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, [place] E 272.4 DYSLIPIDEMIA 10/10/2007 SOLO DO, JOSE LUIS K 250.02 DIABETES MELLITUS TYPE 2 - UNCOMPLICATED, UNCONTROLLED 10/10/2007 SOLO DO, JOSE LUIS K 272.4 DYSLIPIDEMIA 10/10/2007 SOLO DO, JOSE LUIS K 250.02 DIABETES MELLITUS TYPE 2 - UNCOMPLICATED, UNCONTROLLED 10/10/2007 SOLO DO, JOSE LUIS K 272.4 DYSLIPIDEMIA 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, [place] E 250.02 DIABETES MELLITUS TYPE 2 - UNCOMPLICATED, UNCONTROLLED 10/10/2007 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, [place] E 272.4 DYSLIPIDEMIA 10/10/2007 SOLO DO, [...] K 599.0 URINARY TRACT INFECTION 10/14/2007 [facility] 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 [place] E 250.00 DIABETES MELLITUS TYPE 2 - UNCOMPLICATED, CONTROLLED 10/14/2007 [facility] 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 [place] E 338.4 PAIN CHRONIC SYNDROME 10/14/2007 [facility] 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 [place] E 599.0 URINARY TRACT INFECTION 10/14/2007 SOLO DO, JOSE LUIS K 250.00 DIABETES MELLITUS TYPE 2 - UNCOMPLICATED, CONTROLLED 10/14/2007 SOLO DO, JOSE LUIS K 338.4 PAIN CHRONIC SYNDROME 10/14/2007 SOLO DO, JOSE LUIS K 599.0 URINARY TRACT INFECTION 10/14/2007 [facility] 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, [place] E 250.00 DIABETES MELLITUS TYPE 2 - UNCOMPLICATED, CONTROLLED 10/14/2007 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, [place] E 338.4 PAIN CHRONIC SYNDROME 10/14/2007 [facility] 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 [place] E 599.0 URINARY TRACT INFECTION 10/14/2007 [facility] 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, [place] E 250.00 DIABETES MELLITUS TYPE 2 - UNCOMPLICATED, CONTROLLED 10/14/2007 [facility] 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, [place] E 338.4 PAIN CHRONIC SYNDROME 10/14/2007 [facility] 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 [place] E 599.0 URINARY TRACT INFECTION 10/14/2007 [...] K 599.0 URINARY TRACT INFECTION 10/14/2007 [facility] 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 [place] E 250.00 DIABETES MELLITUS TYPE 2 - UNCOMPLICATED, CONTROLLED 10/14/2007 [facility] 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 [place] E 338.4 PAIN CHRONIC SYNDROME 10/14/2007 [facility] 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 [place] E 599.0 URINARY TRACT INFECTION 10/14/2007 [...] 338.4 PAIN CHRONIC SYNDROME 10/14/2007 SOLO DO, JSOE LUIS K 599.0 URINARY TRACT INFECTION 11/28/2007 MARITZA NICOLE MD V72.31 Chute Tapper Exam, Routine 11/28/2007 MARITZA NICOLE MD V72.31 Chute Tapper Exam, Routine 11/28/2007 MARITZA NICOLE MD V72.31 Chute Tapper Exam, Routine 11/28/2007 MANNY VALDIVIA APRN V72.31 Chute Tapper Exam, Routine 11/28/2007 V72.31 Chute Tapper Exam, Routine 11/28/2007 V72.31 Chute Tapper Exam, Routine 11/28/2007 V72.31 Chute Tapper Exam, Routine 11/28/2007 V72.31 Chute Tapper Exam, Routine 11/28/2007 V72.31 Chute Tapper Exam, Routine 11/28/2007 V72.31 Chute Tapper Exam, Routine 11/28/2007 SOLO DO JOSE LUIS K V72.31 Chute Tapper Exam, Routine 11/28/2007 SOLO DO JOSE LUIS K V72.31 Chute Tapper Exam, Routine 11/28/2007 [place] GALVAN APRN E V72.31 Chute Tapper Exam, Routine 11/28/2007 SOLO DO JOSE LUIS K V72.31 Chute Tapper Exam, Routine 11/28/2007 [place] GALVAN APRN V72.31 Chute Tapper Exam, Routine 11/28/2007 HELL[place]IA NARAYAN APRN V72.31 Chute Tapper Exam, Routine 11/28/2007 SOLO DOJOSE LUIS K V72.31 Chute Tapper Exam, Routine 11/28/2007 SOLO PHILLIPA K V72.31 Chute Tapper Exam, Routine 11/28/2007 RADHAGEORGIA NARAYAN APRN V72.31 Chute Tapper Exam, Routine 11/28/2007 GERMANIA PINEDAPHILLIPA K V72.31 Chute Tapper Exam, Routine 11/28/2007 [place] PINEDAPHILLIPA K V72.31 Chute Tapper Exam, Routine 11/28/2007 RADHAGEORGIA NARAYAN APRN V72.31 Chute Tapper Exam, Routine 11/28/2007 SOLO JOSE LUIS PINEDA K V72.31 Chute Tapper Exam, Routine 01/14/2008 MARITZA NICOLE MD 305.1 [...] V03.82 Pcv7 Pcv23, Streptococcus Pneumoniae [pneumococcus] 01/14/2008 [facility] [place] E 305.1 TOBACCO ABUSE 01/14/2008 [facility] ParsonsSIE E V03.82 Pcv7 Pcv23, Streptococcus Pneumoniae [pneumococcus] 01/14/2008 SOLO DO, JOSE LUIS K 305.1 TOBACCO ABUSE 01/14/2008 SOLO DO JOSE LUIS K V03.82 Pcv7 Pcv23, Streptococcus Pneumoniae [pneumococcus] 01/14/2008 [facility] SAMANTHA [place] E 305.1 TOBACCO ABUSE 01/14/2008 [facility] PHILLIP SINGHSIE E V03.82 Pcv7 Pcv23, Streptococcus Pneumoniae [pneumococcus] 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, [place] E 305.1 TOBACCO ABUSE 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, [place] E V03.82 Pcv7 Pcv23, Streptococcus Pneumoniae [pneumococcus] 01/14/2008 SOLO DO, JOSE LUIS K 305.1 TOBACCO ABUSE 01/14/2008 SOLO DO, JOSE LUIS K V03.82 Pcv7 Pcv23, Streptococcus Pneumoniae [pneumococcus] 01/14/2008 SOLO DO, JOSE LUIS K 305.1 TOBACCO ABUSE 01/14/2008 SOLO DO, JOSE LUIS K V03.82 Pcv7 Pcv23, Streptococcus Pneumoniae [pneumococcus] 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, [place] E 305.1 TOBACCO ABUSE 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, [place] E V03.82 Pcv7 Pcv23, Streptococcus Pneumoniae [...] K 401.1 ESSENTIAL HYPERTENSION BENIGN 04/15/2008 [facility] 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, [place] E 357.9 POLYNEUROPATHY INFLAMMATORY 04/15/2008 HEL[facility] 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, [place] E 401.1 ESSENTIAL HYPERTENSION BENIGN 04/15/2008 [facility] 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, [place] E 357.9 POLYNEUROPATHY INFLAMMATORY 04/15/2008 [facility] 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, [place] E 401.1 ESSENTIAL HYPERTENSION BENIGN 04/15/2008 SOLO DO, JOSE LUIS K 357.9 POLYNEUROPATHY INFLAMMATORY 04/15/2008 SOLO DO, JOSE LUIS K 401.1 ESSENTIAL HYPERTENSION BENIGN 04/15/2008 SOLO DO, JOSE LUIS K 357.9 POLYNEUROPATHY INFLAMMATORY 04/15/2008 SOLO DO, JOSE LUIS K 401.1 ESSENTIAL HYPERTENSION BENIGN 04/15/2008 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, [place] E 357.9 POLYNEUROPATHY INFLAMMATORY 04/15/2008 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, [place] E 401.1 ESSENTIAL HYPERTENSION BENIGN 04/15/2008 SOLO DO, JOSE LUIS K 357.9 POLYNEUROPATHY INFLAMMATORY 04/15/2008 SOLO DO, JOSE LUIS K 401.1 ESSENTIAL HYPERTENSION BENIGN 04/15/2008 SOLO DO, JOSE LUIS K 357.9 POLYNEUROPATHY INFLAMMATORY 04/15/2008 SOLO DO, JOSE LUIS K 401.1 ESSENTIAL HYPERTENSION BENIGN 04/15/2008 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, [place] E 357.9 POLYNEUROPATHY INFLAMMATORY 04/15/2008 [facility] 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, [place] E 401.1 ESSENTIAL HYPERTENSION BENIGN 04/15/2008 [...] JOSE LUIS K 786.2 Cough 10/18/2008 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, [place] E 528.9 Mouth Pain 10/18/2008 [facility] 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, [place] E 780.60 Fever [as Symptom] 10/18/2008 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, [place] E 786.2 Cough 10/18/2008 SOLO DO, JOSE LUIS K 528.9 Mouth Pain 10/18/2008 SOLO DO, JOSE LUIS K 780.60 Fever [as Symptom] 10/18/2008 SOLO DO, JOSE LUIS K 786.2 Cough 10/18/2008 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, [place] E 528.9 Mouth Pain 10/18/2008 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 [place] E 780.60 Fever [as Symptom] 10/18/2008 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, [place] E 786.2 Cough 10/18/2008 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, [place] E 528.9 Mouth Pain 10/18/2008 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, [place] E 780.60 Fever [as Symptom] 10/18/2008 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, [place] E 786.2 Cough 10/18/2008 SOLO DO, JOSE LUIS K 528.9 Mouth Pain 10/18/2008 SOLO DO, JOSE LUIS K 780.60 Fever [as Symptom] 10/18/2008 SOLO DO, JOSE LUIS K 786.2 Cough 10/18/2008 SOLO DO, JOSE LUIS K 528.9 Mouth Pain 10/18/2008 SOLO DO, JOSE LUIS K 780.60 Fever [as Symptom] 10/18/2008 SOLO DO, JOSE LUIS K 786.2 Cough 10/18/2008 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, [place] E 528.9 Mouth Pain 10/18/2008 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, [place] E 780.60 Fever [as Symptom] 10/18/2008 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, [place] E 786.2 Cough 10/18/2008 SOLO DO, JOSE LUIS K 528.9 Mouth Pain 10/18/2008 SOLO DO, JOSE LUIS K 780.60 Fever [as Symptom] 10/18/2008 SOLO DO, JOSE LUIS K 786.2 Cough 10/18/2008 SOLO DO, JOSE LUIS K 528.9 Mouth Pain 10/18/2008 SOLO DO, JOSE LUIS K 780.60 Fever [as Symptom] 10/18/2008 SOLO DO, JOSE LUIS K 786.2 Cough 10/18/2008 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, [place] E 528.9 Mouth Pain 10/18/2008 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, [place] E 780.60 Fever [as Symptom] 10/18/2008 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, [place] E 786.2 Cough 10/18/2008 SOLO DO, [...] COLE SINGH [place] E 276.51 Dehydration 10/29/2008 [facility] SINGH [place] E 787.01 Nausea With Vomiting 10/29/2008 SOLO DO, JOSE LUIS K 276.51 Dehydration 10/29/2008 SOLO DO, JOSE LUIS K 787.01 Nausea With Vomiting 10/29/2008 SOLO DO, JOSE LUIS K 276.51 Dehydration 10/29/2008 SOLO DO, JOSE LUIS K 787.01 Nausea With Vomiting 10/29/2008 HELHELENE 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, [place] E 276.51 Dehydration 10/29/2008 HELHELENE 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, [place] E 787.01 Nausea With Vomiting 10/29/2008 SOLO DO, JOSE LUIS K 276.51 Dehydration 10/29/2008 SOLO DO, JOSE LUIS K 787.01 Nausea With Vomiting 10/29/2008 SOLO DO, JOSE LUIS K 276.51 Dehydration 10/29/2008 SOLO DO, JOSE LUIS K 787.01 Nausea With Vomiting 10/29/2008 HELHELENE 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 [place] E 276.51 Dehydration 10/29/2008 [facility] 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, [place] E 787.01 Nausea With Vomiting 10/29/2008 [...] JOSE LUIS K 724.5 BACKACHE 02/01/2009 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, [place] E 250.40 DIABETIC NEPHROPATHY 02/01/2009 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, [place] E 724.5 BACKACHE 02/01/2009 SOLO DO, JOSE LUIS K 250.40 DIABETIC NEPHROPATHY 02/01/2009 SOLO DO, JOSE LUIS K 724.5 BACKACHE 02/01/2009 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, [place] E 250.40 DIABETIC NEPHROPATHY 02/01/2009 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, [place] E 724.5 BACKACHE 02/01/2009 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, [place] E 250.40 DIABETIC NEPHROPATHY 02/01/2009 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, [place] E 724.5 BACKACHE 02/01/2009 SOLO DO, JOSE LUIS K 250.40 DIABETIC NEPHROPATHY 02/01/2009 SOLO DO, JOSE LUIS K 724.5 BACKACHE 02/01/2009 SOLO DO, JOSE LUIS K 250.40 DIABETIC NEPHROPATHY 02/01/2009 SOLO DO, JOSE LUIS K 724.5 BACKACHE 02/01/2009 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, [place] E 250.40 DIABETIC NEPHROPATHY 02/01/2009 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, [place] E 724.5 BACKACHE 02/01/2009 SOLO DO, JOSE LUIS K 250.40 DIABETIC NEPHROPATHY 02/01/2009 SOLO DO, JOSE LUIS K 724.5 BACKACHE 02/01/2009 SOLO DO, JOSE LUIS K 250.40 DIABETIC NEPHROPATHY 02/01/2009 SOLO DO, JOSE LUIS K 724.5 BACKACHE 02/01/2009 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, [place] E 250.40 DIABETIC NEPHROPATHY 02/01/2009 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, [place] E 724.5 BACKACHE 02/01/2009 SOLO DO, [...] LUIS K 477.9 Allergic Rhinitis 03/14/2009 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 [place] E 461.9 Sinusitis Acute 03/14/2009 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 [place] E 477.9 Allergic Rhinitis 03/14/2009 SOLO DO, JOSE LUIS K 461.9 Sinusitis Acute 03/14/2009 SOLO DO, JOSE LUIS K 477.9 Allergic Rhinitis 03/14/2009 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, [place] E 461.9 Sinusitis Acute 03/14/2009 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 [place] E 477.9 Allergic Rhinitis 03/14/2009 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 [place] E 461.9 Sinusitis Acute 03/14/2009 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 [place] E 477.9 Allergic Rhinitis 03/14/2009 SOLO DO, JOSE LUIS K 461.9 Sinusitis Acute 03/14/2009 SOLO DO, JOSE LUIS K 477.9 Allergic Rhinitis 03/14/2009 SOLO DO, JOSE LUIS K 461.9 Sinusitis Acute 03/14/2009 SOLO DO, JOSE LUIS K 477.9 Allergic Rhinitis 03/14/2009 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, [place] E 461.9 Sinusitis Acute 03/14/2009 [employer] 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, [place] E 477.9 Allergic Rhinitis 03/14/2009 SOLO DO, JOSE LUIS K 461.9 Sinusitis Acute 03/14/2009 SOLO DO, JOSE LUIS K 477.9 Allergic Rhinitis 03/14/2009 SOLO DO, JOSE LUIS K 461.9 Sinusitis Acute 03/14/2009 SOLO DO, JOSE LUIS K 477.9 Allergic Rhinitis 03/14/2009 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, [place] E 461.9 Sinusitis Acute 03/14/2009 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, [place] E 477.9 Allergic Rhinitis 03/14/2009 SOLO [...] LUIS K 724.2 lower back pain 05/13/2009 [facility] HERNANDEZN [place] E 333.94 RESTLESS LEGS SYNDROME 05/13/2009 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, [place] E 724.2 lower back pain 05/13/2009 SOLO DO, JOSE LUIS K 333.94 RESTLESS LEGS SYNDROME 05/13/2009 SOLO DO, JOSE LUIS K 724.2 lower back pain 05/13/2009 [facility] SINGH, [place] E 333.94 RESTLESS LEGS SYNDROME 05/13/2009 [facility] 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, [place] E 724.2 lower back pain 05/13/2009 [facility] 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, [place] E 333.94 RESTLESS LEGS SYNDROME 05/13/2009 [facility] 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, [place] E 724.2 lower back pain 05/13/2009 SOLO DO, JOSE LUIS K 333.94 RESTLESS LEGS SYNDROME 05/13/2009 SOLO DO, JOSE LUIS K 724.2 lower back pain 05/13/2009 SOLO DO, JOSE LUIS K 333.94 RESTLESS LEGS SYNDROME 05/13/2009 SOLO DO, JOSE LUIS K 724.2 lower back pain 05/13/2009 [facility] SAMANTHA, [place] E 333.94 RESTLESS LEGS SYNDROME 05/13/2009 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, [place] E 724.2 lower back pain 05/13/2009 SOLO DO, JOSE LUIS K 333.94 RESTLESS LEGS SYNDROME 05/13/2009 SOLO DO, JOSE LUIS K 724.2 lower back pain 05/13/2009 SOLO DO, JOSE LUIS K 333.94 RESTLESS LEGS SYNDROME 05/13/2009 SOLO DO, JOSE LUIS K 724.2 LOWER BACK PAIN 05/13/2009 [facility] 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, [place] E 333.94 RESTLESS LEGS SYNDROME 05/13/2009 [facility], [place] E 724.2 LOWER BACK PAIN [...] K 280.9 IRON DEFICIENCY ANEMIA 11/08/2009 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, [place] E 280.9 IRON DEFICIENCY ANEMIA 11/08/2009 SOLO DO, JOSE LUIS K 280.9 IRON DEFICIENCY ANEMIA 11/08/2009 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, [place] E 280.9 IRON DEFICIENCY ANEMIA 11/08/2009 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, [place] E 280.9 IRON DEFICIENCY ANEMIA 11/08/2009 SOLO DO, JOSE LUIS K 280.9 IRON DEFICIENCY ANEMIA 11/08/2009 SOLO DO, JOSE LUIS K 280.9 IRON DEFICIENCY ANEMIA 11/08/2009 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, [place] E 280.9 IRON DEFICIENCY ANEMIA 11/08/2009 SOLO DO, JOSE LUIS K 280.9 IRON DEFICIENCY ANEMIA 11/08/2009 SOLO DO, JOSE LUIS K 280.9 IRON DEFICIENCY ANEMIA 11/08/2009 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, [place] E 280.9 IRON DEFICIENCY ANEMIA 11/08/2009 [...] LUIS K 780.52 Insomnia Unspecified 11/22/2009 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, [place] E 285.9 Anemia Unspecified 11/22/2009 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, [place] E 780.52 Insomnia Unspecified 11/22/2009 SOLO DO, JOSE LUIS K 285.9 Anemia Unspecified 11/22/2009 SOLO DO, JOSE LUIS K 780.52 Insomnia Unspecified 11/22/2009 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, [place] E 285.9 Anemia Unspecified 11/22/2009 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, [place] E 780.52 Insomnia Unspecified 11/22/2009 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, [place] E 285.9 Anemia Unspecified 11/22/2009 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, [place] E 780.52 Insomnia Unspecified 11/22/2009 SOLO DO, JOSE LUIS K 285.9 Anemia Unspecified 11/22/2009 SOLO DO, JOSE LUIS K 780.52 Insomnia Unspecified 11/22/2009 SOLO DO, JOSE LUIS K 285.9 Anemia Unspecified 11/22/2009 SOLO DO, JOSE LUIS K 780.52 Insomnia Unspecified 11/22/2009 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, [place] E 285.9 Anemia Unspecified 11/22/2009 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, [place] E 780.52 Insomnia Unspecified 11/22/2009 SOLO DO, JOSE LUIS K 285.9 Anemia Unspecified 11/22/2009 SOLO DO, JOSE LUIS K 780.52 Insomnia Unspecified 11/22/2009 SOLO DO, JOSE LUIS K 285.9 Anemia Unspecified 11/22/2009 SOLO DO, JOSE LUIS K 780.52 Insomnia Unspecified 11/22/2009 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, [place] E 285.9 Anemia Unspecified 11/22/2009 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, [place] E 780.52 Insomnia Unspecified 11/22/2009 SOLO [...] DO, JOSE LUIS K 724.3 Sciatica 03/09/2010 PHILLPI GALVAN APRNSIE E 724.3 Sciatica 03/09/2010 COLE [...] 357.2 POLYNEUROPATHY DIABETIC 06/05/2011 SOLO DO, JOSE LIUS K 266.2 VITAMIN B12 DEFICIENCY 06/05/2011 SOLO DO, JOSE LUIS K 357.2 POLYNEUROPATHY DIABETIC 06/05/2011 [place] GALVAN APRN E 266.2 VITAMIN B12 DEFICIENCY 06/05/2011 [place] GALVAN APRN E 357.2 POLYNEUROPATHY DIABETIC 06/05/2011 [place] GALVAN APRN E 266.2 VITAMIN B12 DEFICIENCY 06/05/2011 GEOR[place] GALVAN APRN E 357.2 POLYNEUROPATHY DIABETIC 06/05/2011 SOLO DO, JOSE LUIS K 266.2 VITAMIN B12 DEFICIENCY 06/05/2011 SOLO DO, JOSE LUIS K 357.2 POLYNEUROPATHY DIABETIC 06/05/2011 SOLO DO, JOSE LUIS K 266.2 VITAMIN B12 DEFICIENCY 06/05/2011 SOLO DO, JOSE LUIS K 357.2 POLYNEUROPATHY DIABETIC 06/05/2011 [facility] NARAYAN APRNSIE E 266.2 VITAMIN B12 DEFICIENCY 06/05/2011 [facility] SINGHSIE E 357.2 POLYNEUROPATHY DIABETIC 06/05/2011 SOLO DO, JOSE LUIS K 266.2 VITAMIN B12 DEFICIENCY 06/05/2011 SOLO DO, JOSE LUIS K 357.2 POLYNEUROPATHY DIABETIC 06/05/2011 SOLO DO, JOSE LUIS K 266.2 VITAMIN B12 DEFICIENCY 06/05/2011 SOLO DO, JOSE LUIS K 357.2 POLYNEUROPATHY DIABETIC 06/05/2011 [facility] PHILLIP SINGHSIE E 266.2 VITAMIN B12 DEFICIENCY 06/05/2011 [facility] SINGHSIE E 357.2 POLYNEUROPATHY DIABETIC 06/05/2011 [...] JOSE LUIS K V76.12 Mammogram Screening 09/28/2011 [facility] APRNE E 338.29 CHRONIC PAIN 09/28/2011 [place] GALVAN APRN E V76.12 Mammogram Screening 09/28/2011 [facility] APRN E 338.29 CHRONIC PAIN 09/28/2011 [facility]AG[facility] NARAYAN APRNE E V76.12 Mammogram Screening 09/28/2011 SOLO DO, JOSE LUIS K 338.29 CHRONIC PAIN 09/28/2011 SOLO DO, JOSE LUIS K V76.12 Mammogram Screening 09/28/2011 SOLO DO, JOSE LUIS K 338.29 CHRONIC PAIN 09/28/2011 SOLO DO, JOSE LUIS K V76.12 Mammogram Screening 09/28/2011 [facility] APRNE E 338.29 CHRONIC PAIN 09/28/2011 PHILLIP GALVAN APRNSIE E V76.12 Mammogram Screening 09/28/2011 SOLO DO, JOSE LUIS K 338.29 CHRONIC PAIN 09/28/2011 SOLO DO, JOSE LUIS K V76.12 Mammogram Screening 09/28/2011 SOLO DO, JOSE LUIS K 338.29 CHRONIC PAIN 09/28/2011 SOLO DO, JOSE LUIS K V76.12 MAMMOGRAM SCREENING 09/28/2011 [facility] APRNSIE E 338.29 CHRONIC PAIN 09/28/2011 [facility] APRNS[facility] E V76.12 MAMMOGRAM SCREENING 09/28/2011 [...] ABNORMALITY 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, [place]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 729.81 SWELLING OF LIMB 05/16/2017 Ot 724.02 SPINAL STENOSIS, LUMBAR REG, W/OUT NEURO 05/16/2017 Ot 781.2 ABNORMALITY OF GAIT 05/16/2017 [place] GALVAN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 729.81 SWELLING OF LIMB 06/03/2017 LUKE [...] 06/03/2017 LUKE DO ANURADHA K Ot Z79.84 LEGISLATIVE ANALYST (CURRENT) USE OF ORAL HYPOGLYC 06/03/2017 LUKE [...] K Ot G25.81 RESTLESS LEGS SYNDROME 06/05/2017 LUKE DO, ANURADHA K Ot I10 ESSENTIAL (PRIMARY) HYPERTENSION 06/05/2017 LUKE ANURADHA PINEDA K Ot N39.0 URINARY TRACT INFECTION, SITE NOT SPECIF 06/05/2017 ANURADHA BUTLER DO K Ot Z79.84 LEGISLATIVE ANALYST (CURRENT) USE OF ORAL HYPOGLYC 06/05/2017 LUKE ANURADHA PINEDA K Ot Z87.448 PERSONAL HISTORY OF OTHER DISEASES OF UR 06/05/2017 LUKE ANURADHA Rothman Ot Z98.84 BARIATRIC SURGERY STATUS 09/19/2017 ANDI REYES, PAOLA Rasmussen Ot H25.11 AGE-RELATED NUCLEAR CATARACT, RIGHT EYE 09/19/2017 ANDI REYES, PAOLA Rasmussen Ot Z01.818 ENCOUNTER FOR OTHER PREPROCEDURAL EXAMIN 09/24/2017 PAOLA ESCAMILLA MD, Ot E11.36 TYPE 2 DIABETES MELLITUS WITH DIABETIC C 09/24/2017 PAOLA ESCAMILLA MD, Ot I10 ESSENTIAL (PRIMARY) HYPERTENSION 09/24/2017 PAOLA ESCAMILLA MD, Ot Z79.4 LEGISLATIVE ANALYST (CURRENT) USE OF INSULIN Procedures Code Description Performed By Performed On GANGLION CYST-ASP/INJ 12/25/2011 General S Jake Baez 12/25/2011 84625 A1C (IN-HOUSE) 12/25/2011 90381 URINE DRUG SCREEN (IN-HOUSE ) 12/25/2011 70062 A1C (IN-HOUSE) 04/01/2012 33811 URINE DRUG SCREEN (IN-HOUSE ) 04/01/2012 33937 MRI SPINE (LUMBAR) W/O CONTRAST 04/01/2012 95914 THERAPUTIC INJ SQ/IM 05/16/2012 J1885 TORADOL INJ 05/16/2012 J2930 SOLUMEDROL INJ 05/16/2012 Physical Physical Therapy, [facility] 05/29/2012 49642 ROUTINE VENIPUNCTURE 09/02/2012 76626 MICRO ALBUMIN-IN HOUSE 09/02/2012 55816 A1C (IN-HOUSE) 09/02/2012 50964 GLUCOSE FINGER STICK 09/02/2012 65961 CMP 09/02/2012 24721 LIPID PANEL 09/02/2012 17298 MICROALBUMIN 09/02/2012 92937 CBC 09/02/2012 13192 A1C (IN-HOUSE) 12/31/2012 17402 ROUTINE VENIPUNCTURE 02/19/2013 33565 HEMOGLOBIN (IN-HOUSE) 02/19/2013 ANEMIAANA ANEMIA ANALYZER 02/19/2013 IRGROUP IRON GROUP (Iron,TIBC, Ferritin) 02/19/2013 22411 IRON SERUM 02/19/2013 15694 IRON BNDNG CAP 02/19/2013 14213 FERRITIN 02/19/2013 1985660 IMMATURE PLATELET FRACTION (RESULT ONLY) 02/20/2013 80966 CBC 02/20/2013 27776 RETICULOCYTE COUNT 02/20/2013 2049330 HEMATOLOGY OTHER REPORT 02/20/2013 31603 XRAY TIBULA/FIBULA RIGHT 03/18/2013 42199 A1C (IN-HOUSE) 06/18/2013 37438 HEMOGLOBIN (IN-HOUSE) 06/18/2013 58445 MICRO ALBUMIN-IN HOUSE 09/17/2013 47591 A1C (IN-HOUSE) 09/17/2013 72155 A1C (IN-HOUSE) 12/10/2013 48148 ROUTINE VENIPUNCTURE 03/15/2014 36427 A1C (IN-HOUSE) 03/15/2014 33535 LIPID PANEL 03/15/2014 53285 CBC 03/15/2014 9540967 GFR CALC (RESULT ONLY) 03/15/2014 94310 CMP 03/15/2014 39627 TSH 03/15/2014 42949 A1C (IN-HOUSE) 06/14/2014 94959 US VENOUS DOPPLER (DVT EVAL ) 06/14/2014 [...] culture - 10/30/15 18:15 Bacterial urine culture [id number] NRG COLONY COUNT >100,000/ML NRG FTX;REPORTABLE SENSITIVITY [...] culture - 05/16/17 14:08 Bacterial urine culture [id number] NRG COLONY COUNT 10,000/ML - 100,000/ML NRG FTX;REPORTABLE SENSITIVITY NOT USUALLY PERFORMED FOR NRG FREE TEXT ENTRY 2 THIS ORGANISM. [facility] Bacterial susceptibility panel - 05/16/17 14:08 Gentamicin [...] susceptibility test by minimum inhibitory concentration - [facility] Complete blood count (CBC) with automated white [...] 09:32 CULTURE, URINE, ROUTINE SEE NOTE NRG Capillary blood glucose measurement by glucometer (mass/volume) - 09/20/17 06: 55 Capillary blood glucose measurement by glucometer (mass/volume) 155 mg/dL 70-110 Encounters ACCT No. Visit Date/Time Discharge Status Pt. Type Provider Facility Loc./Unit Complaint [id number] 06/14/2014 09:33:00 06/14/2014 23:59:59 CLS Outpatient JOSE LUIS SOLO DO [id number] 05/28/2014 11:33:00 05/28/2014 23:59:59 CLS Outpatient [place] GALVAN APRN [id number] 03/15/2014 08:06:00 03/15/2014 23:59:59 CLS Outpatient JOSE LUIS SOLO DO [id number] 02/10/2014 15:44:00 02/10/2014 23:59:59 CLS Outpatient JOSE LUIS SOLO DO [id number] 12/10/2013 09:37:00 12/10/2013 23:59:59 CLS Outpatient [place] GALVAN APRN [id number] 09/17/2013 09:00:00 09/17/2013 23:59:59 CLS Outpatient JOSE LUIS SOLO DO [id number] 07/24/2013 10:33:00 07/24/2013 23:59:59 CLS Outpatient JOSE LUIS SOLO DO [id number] 06/18/2013 08:16:00 06/18/2013 23:59:59 CLS Outpatient GEORGIA GALVAN APRN [id number] 03/16/2013 12:10:00 03/16/2013 23:59:59 CLS Outpatient GEORGIA GALVAN APRN [id number] 03/16/2013 08:44:00 03/16/2013 23:59:59 CLS Outpatient JOSE LUIS SOLO DO [id number] 02/19/2013 10:15:00 02/19/2013 23:59:59 CLS Outpatient GEORGIA GALVAN APRN [id number] 02/04/2013 14:09:00 02/04/2013 23:59:59 CLS Outpatient JOSE LUIS SOLO DO [id number] 12/31/2012 08:36:00 12/31/2012 23:59:59 CLS Outpatient JOSE LUIS SOLO DO [id number] 05/29/2012 15:48:00 05/29/2012 23:59:59 CLS Outpatient [id number] 05/16/2012 15:27:00 05/16/2012 23:59:59 CLS Outpatient MANNY VALDIVIA APRN [id number] 04/01/2012 14:23:00 04/01/2012 23:59:59 [place] [id number] 12/25/2011 14:23:00 12/25/2011 23:59:59 CLS Outpatient MARITZA NICOLE MD [id number] 12/25/2011 14:23:00 12/25/2011 23:59:59 CLS Outpatient MARITZA NICOLE MD [id number] 09/30/2012 15:14:00 Document Registration [id number] 09/05/2012 09:36:00 Document Registration [id number] 09/02/2012 09:00:00 Document Registration [id number] 08/02/2012 00:00:00 Document Registration [id number] 06/24/2012 14:54:00 Document Registration [id number] 06/17/2014 05:26:16 ACT Document Registration [id number] 07/11/2017 09:20:00 07/11/2017 23:59:59 CLS Outpatient TRACY SAMANTHACATRACHITA CHCAN BERNARD [id number] 06/06/2017 08:20:00 Document Registration [id number] 12/31/2016 08:00:00 Document Registration [id number] 09/20/2017 06:24:00 09/20/2017 08:20:00 DIS Outpatient PAOLA ESCAMILLA MD [facility] SDC CATARACT RIGHT EYE [id number] 09/18/2017 05:59:00 09/18/2017 23:59:59 CLS Outpatient PAOLA ESCAMILLA MD [facility] PREOP CATARACT RIGHT EYE [id number] 06/03/2017 09:07:00 06/03/2017 10:25:00 DIS Emergency LUKE ANURADHA PINEDA [facility] ER BS ISSUES [id number] 05/16/2017 12:33:00 05/16/2017 15:05:00 DIS Emergency RICK SAMPSON APRN [facility] ER POSS STROKE [id number] 10/30/2015 18:28:00 10/30/2015 19:42:00 DIS Emergency LUKE ANURADHA PINEDA [facility] ER PAIN URINATING [id number] 08/18/2014 15:57:00 08/18/2014 23:59:59 CLS Preadmit JOSE BILLINGS MD [facility] REHAB [id number] 06/16/2014 13:27:00 06/16/2014 23:59:59 CLS Outpatient GEORGIA GALVAN APRN [facility] RAD REDNESS,SWELLING [id number] 07/11/2013 12:09:00 07/11/2013 14:49:00 DIS Emergency LUKE ANURADHA PINEDA [facility] ER DIZZINESS L LEG PAIN [id number] 05/08/2013 10:45:00 05/22/2013 11:54:00 DIS Outpatient JOSE BILLINGS MD [facility] REHAB S/P LUMBAR FUSION [id number] 07/02/2012 12:15:00 07/04/2012 12:22:00 DIS Outpatient JEN NICOLE MDELLE L [facility] REHAB L LEG RADICULOPATHY ;LUMBAR RADICULOPATHY [id number] 10/11/2017 07:30:00 PAOLA Mcdonald MD [facility] CATARACT LEFT EYE [id number] 06/16/2014 13:32:00 Document Registration [id number] 05/14/2014 12:44:00 Document Registration [id number] 04/03/2012 13:04:00 Document Registration [id number] 09/04/2011 15:01:00 Document Registration [id number] 12/26/2010 13:39:00 Document Registration [id number] 01/31/2010 14:34:00 Document Registration [id number] 12/06/2009 14:41:00 Document Registration [id number] 11/30/2009 07:25:00 Document Registration [id number] 11/18/2009 10:09:00 Document Registration [id number] 2009 18:35:00 Document Registration [id number] 09/08/2009 07:33:00 Document Registration [id number] 09/07/2009 07:33:00 Document Registration [id number] 08/31/2009 08:48:00 Document Registration
[2017-10-11] MEDS: PHENYLEPHRINE 10% OPHTH (NEO-SYN) 5 ML BTL OU SCH ×3 (06:26→06:36)
[2017-10-11] MEDS: CYCLOPENTOLATE 1% (CYCLOGYL) 2 ML DROPS OP SCH ×3 (06:26→06:36)
--- NOTE | 2017-10-11 06:54 | Ophthalmologist Pre-Op Note ---
Pre-Operative Progress Note H&P Reviewed The H&P was reviewed, patient examined and no changes noted. Date H&P Reviewed: Oct 11, 2017 Time H&P Reviewed: 06:53 Pre-Op Dx Cataract, Left Eye PAOLA ESCAMILLA MD Oct 11, 2017 06:54
[2017-10-11] MEDS ORDERED: MIDAZOLAM 2 MG/2 ML (VERSED) VIAL ONE (07:13)
--- NOTE | 2017-10-11 07:33 | Ophthalmology Operative Report ---
Cataract removal/placement IOL PREOPERATIVE DIAGNOSIS: Cataract Left Eye POSTOPERATIVE DIAGNOSIS: Cataract Left Eye PROCEDURE: Cataract removal and placement of posterior chamber implant, left eye SURGEON: Polo Escamilla ANESTHESIA: Topical with sedation COMPLICATIONS: None ESTIMATED BLOOD LOSS: Minimal DESCRIPTION OF PROCEDURE: After proper informed consent was obtained, the patient, a 61 female, was taken to the Operating Room and the left eye was anesthetized with tetracaine. The left eye was then prepped and draped in the usual manner. A wire lid speculum was placed. A paracentesis was made at the left hand position. Preservative free lidocaine was injected into the anterior chamber followed by viscoelastic. A clear corneal incision was made in the temporal position. A capsulorrhexis was preformed and the central nuclear and cortical material were removed. The posterior capsule was polished and an Christian 23.5 SN6CWS IOL was placed into the capsular bag. The residual viscoelastic was aspirated and balanced saline solution was injected into the anterior chamber. Vancomycin was injected into the anterior chamber. The wound was checked and found to be water tight. The patient tolerated the procedure well without complications. POLO ESCAMILLA MD Oct 11, 2017 07:33
[2017-10-11 07:40] VITALS: BP 139/93
--- NOTE | 2017-10-11 08:59 | Anesthesia-General Post-Op ---
MAC Patient Condition Mental Status/LOC: Same as Preop Cardiovascular: Satisfactory Nausea/Vomiting: Absent Respiratory: Satisfactory Pain: Controlled Complications: Absent Post Op Complications Complications None Follow Up Care/Instructions Patient Instructions None needed. Anesthesiology Discharge Order Discharge Order Patient is doing well, no complaints, stable vital signs, no apparent adverse anesthesia problems. No complications reported per nursing. EVERT CLEMENTS CRNA Oct 11, 2017 08:59
== END 2017-10-11 07:42 | disposition home or self-care (01) ==
LOC: SDC 05:53
PROVIDERS: ATTEND Specialist
DX: E11.36 Type 2 diabetes mellitus with diabetic cataract (principal); I10 Essential (primary) hypertension; Z87.891 Personal history of nicotine dependence; Z79.4 Long term (current) use of insulin
CPT/HCPCS: 82962

== ENCOUNTER 2018-10-24 10:01 | Inpatient (IN) | payer MEDICARE, OTHER | END 2018-10-26 13:41 | disposition home or self-care (01) | LOC: ER 10:01 → 4TH 11:47 | DX: N17.9 Acute kidney failure, unspecified (principal); N39.0 Urinary tract infection, site not specified; I10 Essential (primary) hypertension; E11.40 Type 2 diabetes mellitus with diabetic neuropathy, unspecified; M54.9 Dorsalgia, unspecified; E78.00 Pure hypercholesterolemia, unspecified; Z66 Do not resuscitate; R26.2 Difficulty in walking, not elsewhere classified; R53.1 Weakness; R41.0 Disorientation, unspecified; R47.81 Slurred speech; R19.7 Diarrhea, unspecified; R29.6 Repeated falls; R42 Dizziness and giddiness; G47.9 Sleep disorder, unspecified; F41.9 Anxiety disorder, unspecified; F32.9 Major depressive disorder, single episode, unspecified; D64.9 Anemia, unspecified; Z79.4 Long term (current) use of insulin; Z87.891 Personal history of nicotine dependence ==

== ENCOUNTER 2018-10-28 14:32 | Emergency (ER) | payer MEDICARE ==
[~2018-10-28] VITALS: Ht 165.1 cm; Wt 84.8 kg
[~2018-10-28 14:32] MED LIST changes: +ASPI-983 PO; +CEFU500T63 PO; +GABA-488 PO; +HYDR-3816 PO; +HYDR-4227 PO; -HYDR-756 PO; +INSU100V5 SC; +LIRA0.6P3 SC; -LOSA50TA36 PO; +LOSA50TA63 PO; +METF-399 PO; -METF10002 PO; +NAPR-915 PO; +PRAM0.5T9 PO
[2018-10-28] MEDS ORDERED: inSUlin (REGULAR) HUMAN 1 UNIT/0.01 ML (CHARGE PER UNIT) SC ONE ×2 (15:15→16:45)
[2018-10-28 15:16] LABS: BASOPHILS % (AUTO) 0 % (0-10); EOSINOPHILS # (AUTO) 0.3 10^3/uL (0.0-0.3); EOSINOPHILS % (AUTO) 3 % (0-10); HEMATOCRIT 29 % (35-52); HEMOGLOBIN 9.2 G/DL (11.5-16.0); LYMPHOCYTES % (AUTO) 11 % (12-44); MEAN CORPUSCULAR HEMOGLOBIN 24 PG (25-34); MEAN CORPUSCULAR HGB CONC 32 G/DL (32-36); MEAN CORPUSCULAR VOLUME 76 FL (80-99); MEAN PLATELET VOLUME 9.5 FL (7.4-10.4); MONOCYTES # (AUTO) 0.5 X 10^3 (0.0-1.0); MONOCYTES % (AUTO) 6 % (0-12); NEUTROPHILS % (AUTO) 79 % (42-75); PLATELET COUNT 286 10^3/uL (130-400); RED CELL DISTRIBUTION WIDTH 16.5 % (10.0-14.5); WHITE BLOOD COUNT 8.8 10^3/uL (4.3-11.0)
--- NOTE | 2018-10-28 15:21 | ED General ---
General Chief Complaint: Glucose Problems Stated Complaint: HIGH BLOOD SUGAR; HIGH BP Nursing Triage Note: TO ROOM 05 WITH COMPLAINTS OF HYPERGLYCEMIA AND HYPERTENSION STARTING TODAY. DISCHARGED ON SATURDAY FROM THIS HOSPITAL. Nursing Sepsis Screen: No Definite Risk Source of Information: Patient, Spouse Exam Limitations: No Limitations History of Present Illness Date Seen by Provider: Oct 28, 2018 Time Seen by Provider: 14:46 Initial Comments The patient presents to the ER by private conveyance with her significant other and chief complaint she's has a general feeling of unwell, high blood sugar that reads high on her glucometer and high blood pressure over 200/110. This morning she said her blood sugar was 473 and her blood pressure was 180/90. Last week, 4 days ago on Saturday she was admitted because she had one week of being wobbly on her feet and had a fall and not feeling well. At that time she had high blood pressure and high blood sugar. She was told she had an acute kidney injury and a bladder infection. She was released Saturday, 2 days ago and is still on antibiotics. Because of her acute kidney injury she was told by her doctor on discharge not to take any of her blood pressure medicines. She has follow-up this week with primary care. No slurred speech or lateralizing symptoms. No hist ory of CVA or coronary artery disease. No chest pain shortness of breath, nausea, vomiting, diarrhea, constipation, coughing, dysuria. She does have urinary frequency. Allergies and Home Medications Allergies Coded Allergies: No Known Drug Allergies (Unverified , 11/05/09) Home Medications Aspirin 81 Mg Tablet.dr, 81 MG PO DAILY, (Reported) Cefuroxime Axetil 500 Mg Tablet, 500 MG PO BID Prescribed by: SREEKANTH GROVER on 10/26/18 1309 Gabapentin 300 Mg Capsule, 900 MG PO HS, (Reported) TAKES 3 (300MG) CAPSULES Hydrocodone/Acetaminophen 1 Each Tablet, 1 TAB PO Q6H PRN for PAIN-MODERATE, (Reported) Insulin Determir 1,000 Units/10 Ml Soln, 90 UNITS SC HS, (Reported) Liraglutide 0.6 Mg/0.1 Ml Pen.injctr, 1.8 MG SC DAILY, (Reported) Lovastatin 20 Mg Tablet, 20 MG PO HS, (Reported) Patient Home Medication List Home Medication List Reviewed: Yes Review of Systems Review of Systems Constitutional: No chills, No fever; malaise EENTM: No ear discharge, No hearing loss, No ear pain Respiratory: No cough, No short of breath Cardiovascular: No chest pain, No edema Gastrointestinal: No abdominal pain, No constipation, No diarrhea, No nausea, No vomiting Genitourinary: No discharge, No dysuria Musculoskeletal: No back pain, No joint pain Past Tyryhur-Uihepx-Ukxapk Hx Patient Social History Alcohol Use: Denies Use Recreational Drug Use: No Smoking Status: Former Smoker Type Used: Cigarettes 2nd Hand Smoke Exposure: No Recent Foreign Travel: No Contact w/Someone Who Travel: No Recent Infectious Disease Expo: No Recent Hopitalizations: No Past Medical History Surgeries: Yes (GASTRIC BYPASS, BACK SX X 2) Abdominal, Orthopedic Respiratory: No Cardiac: Yes High Cholesterol, Hypertension Neurological: Yes Neuropathy 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 0.6oz. 84.499212jn; 30.3 BMI Method:Stated General Appearance: No Apparent Distress, WD/WN Eyes: Bilateral Eye Normal Inspection, Bilateral Eye PERRL, Bilateral Eye EOMI HEENT: PERRL/EOMI, Pharynx Normal, Moist Mucous Membranes Neck: Full Range of Motion, Normal Inspection Respiratory: Lungs Clear, Normal Breath Sounds, No Accessory Muscle Use, No Re spiratory Distress Cardiovascular: Regular Rate, Rhythm, Normal Peripheral Pulses Gastrointestinal: Normal Bowel Sounds, No Organomegaly, Non Tender, Soft Extremity: Normal Capillary Refill, Normal Inspection, Normal Range of Motion, Non Tender, No Calf Tenderness Neurologic/Psychiatric: Alert, Oriented x3, No Motor/Sensory Deficits, research asst 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 Norm as Tested Skin: Normal Color, Warm/Dry Progress/Results/Core Measures Suspected Sepsis Recent Fever Within 48 Hours: No Infection Criteria Present: None New/Unexplained Altered Menta: No Sepsis Screen: No Definite Risk SIRS Temperature:98.0 Pulse: 95 Respiratory Rate: 16 Laboratory Tests 10/28/18 15:08: White Blood Count 8.8 Blood Pressure 200 /104 Mean: 136 Laboratory Tests 10/28/18 15:08: Creatinine 1.57H, Platelet Count 286, Total Bilirubin 0.2 Results/Orders Lab Results Laboratory Tests Test 10/28/18 14:46 10/28/18 15:08 10/28/18 15:55 10/28/18 16:26 Range/Units Glucometer 477 *H 493 *H 70-110 MG/DL White Blood Count 8.8 4.3-11.0 10^3/uL Red Blood Count 3.81 L 4.35-5.85 10^6/uL Hemoglobin 9.2 L 11.5-16.0 G/DL Hematocrit 29 L 35-52 % Mean Corpuscular Volume 76 L 80-99 FL Mean Corpuscular Hemoglobin 24 L 25-34 PG Mean Corpuscular Hemoglobin Concent 32 32-36 G/DL Red Cell Distribution Width 16.5 H 10.0-14.5 % Platelet Count 286 130-400 10^3/uL Mean Platelet Volume 9.5 7.4-10.4 FL Neutrophils (%) (Auto) 79 H 42-75 % Lymphocytes (%) (Auto) 11 L 12-44 % Monocytes (%) (Auto) 6 0-12 % Eosinophils (%) (Auto) 3 0-10 % Basophils (%) (Auto) 0 0-10 % Neutrophils # (Auto) 7.0 1.8-7.8 X 10^3 Lymphocytes # (Auto) 1.0 1.0-4.0 X 10^3 Monocytes # (Auto) 0.5 0.0-1.0 X 10^3 Eosinophils # (Auto) 0.3 0.0-0.3 10^3/uL Basophils # (Auto) 0.0 0.0-0.1 10^3/uL Sodium Level 131 L 135-145 MMOL/L Potassium Level 4.7 3.6-5.0 MMOL/L Chloride Level 99 98-107 MMOL/L Carbon Dioxide Level 21 21-32 MMOL/L Anion Gap 11 5-14 MMOL/L Blood Urea Nitrogen 34 H 7-18 MG/DL Creatinine 1.57 H 0.60-1.30 MG/DL Estimat Glomerular Filtration Rate 33 BUN/Creatinine Ratio 22 Glucose Level 498 *H 70-105 MG/DL Calcium Level 9.7 8.5-10.1 MG/DL Corrected Calcium 9.7 8.5-10.1 MG/DL Total Bilirubin 0.2 0.1-1.0 MG/DL Aspartate Amino Transf (AST/SGOT) 21 5-34 U/L Alanine Aminotransferase (ALT/SGPT) 18 0-55 U/L Alkaline Phosphatase 78 40-136 U/L Total Protein 7.2 6.4-8.2 GM/DL Albumin 4.0 3.2-4.5 GM/DL Urine Color YELLOW Urine Clarity CLEAR Urine pH 6 5-9 Urine Specific [place] 1.010 L 1.016-1.022 Urine Protein 1+ H NEGATIVE Urine Glucose (UA) 4+ H NEGATIVE Urine Ketones NEGATIVE NEGATIVE Urine Nitrite NEGATIVE NEGATIVE Urine Bilirubin NEGATIVE NEGATIVE Urine Urobilinogen NORMAL NORMAL MG/DL Urine Leukocyte Esterase NEGATIVE NEGATIVE Urine RBC (Auto) 2+ H NEGATIVE Urine RBC 10-25 H /HPF Urine WBC RARE /HPF Urine Squamous Epithelial Cells RARE /HPF Urine Crystals NONE /LPF Urine Bacteria NEGATIVE /HPF Urine Casts NONE /LPF Urine Mucus NEGATIVE /LPF Urine Culture Indicated NO My Orders Orders - DAISY NOVA Ed Iv/Invasive Line Start (10/28/18 15:05) Cbc With Automated Diff (10/28/18 15:05) Comprehensive Metabolic Panel (10/28/18 15:05) Ua Culture If Indicated (10/28/18 15:05) Insulin (Regular) Human (Humulin R (Per (10/28/18 15:15) Accucheck Stat ONCE (10/28/18 15:39) Insulin (Regular) Human (Humulin R (Per (10/28/18 16:45) Medications Given in ED Current Medications Medications Dose Ordered Sig/Edwar Route Start Time Stop Time Status Last Admin Dose Admin Insulin Human Regular 10 unit ONCE ONCE SC 10/28/18 15:15 10/28/18 15:16 DC 10/28/18 15:50 10 UNIT Insulin Human Regular 20 unit ONCE ONCE SC 10/28/18 16:45 10/28/18 16:46 DC 10/28/18 16:46 20 UNIT Vital Signs/I&O 10/28/18 14:40 Temp 98.0 Pulse 95 Resp 16 B/P (MAP) 200/104 (136) Pulse Ox 96 O2 Delivery Room Air Capillary Refill : Less Than 3 Seconds Blood Pressure Mean: 136 Point of Care Testing Finger Stick Blood Glucose: 477 Progress Note #1: Time: 15:19 Progress Note 10 units regular insulin subcutaneous, labs and urinalysis. Patient was discharged for an acute kidney injury aggravated by high blood pressure, dehydration and type 2 diabetes. Also suspected at the time that she might have orthostasis due to autonomic dysfunction due to diabetes. Blood pressure medicines were therefore held. She was on losartan and hydrochlorothiazide. Klebsiella grew out of her urine and she was put on Ceftin for 3 more days. Previous creatinine 0.7-1.1. She discharged with a creatinine of 1.49. Progress Note #2: Time: 15:45 Progress Note At rest the patient's blood pressure has reduced significantly to 180/100 stay around there. Her creatinine is similar to what it was when she discharged at 1.5. Plan is to restart her oral antihypertensives, losartan and follow-up with primary care. She was given 10 units of regular insulin subcutaneous and we will recheck her blood glucose. Progress Note #3: Time: 16:39 Progress Note Her blood sugars 490 which is a not a significant drop. She takes 90 units twice a day Levemir, no short acting insulin. I would like to start her on a short acting such as NovoLog but she gets her medicines vouchered through [facility]. Called [facility] and they got her an appt [phone] tomorrow with Dave Connor, PCP. Departure Impression Primary Impression: Hyperglycemia Additional Impression: Asymptomatic hypertension Disposition: 01 HOME, SELF-CARE Condition: Stable Departure-Patient Inst. Decision time for Depature: 16:43 Referrals: [facility] [place] ([place]P/Family) Primary Care Physician Patient Instructions: High Blood Pressure (DC), Hyperglycemia, Adult (DC) Add. Discharge Instructions: When you get home take your losartan dose tonight and then resume your normal schedule tomorrow with losartan. Continue to take your Levemir as prescribed. Tomorrow. Follow-up with Dave Connor at [facility] at [place], [place] in the clinic at 4:40 PM. Discuss starting a short acting insulin to help control your blood sugar. Return to the ER if you develop shortness of breath, chest pain or other worrisome symptoms. All discharge instructions reviewed with patient and/or family. Voiced understanding. DAISY NOVA Oct 28, 2018 15:20
[2018-10-28 15:33] LABS: CREATININE SERUM 1.57 MG/DL (0.60-1.30); POTASSIUM 4.7 MMOL/L (3.6-5.0)
[2018-10-28 15:34] LABS: BILIRUBIN,TOTAL 0.2 MG/DL (0.1-1.0); CALCIUM 9.7 MG/DL (8.5-10.1); TOTAL PROTEIN 7.2 GM/DL (6.4-8.2)
[2018-10-28 16:02] LABS: BILIRUBIN,URINE NEGATIVE (NEGATIVE); CLARITY,URINE CLEAR; COLOR,URINE YELLOW; GLUCOSE, URINE (UA) 4+ (NEGATIVE); KETONES,URINE NEGATIVE (NEGATIVE); LEUKOCYTE ESTERASE ,URINE NEGATIVE (NEGATIVE); NITRITE,URINE NEGATIVE (NEGATIVE); PH,URINE 6 (5-9); PROTEIN,URINE 1+ (NEGATIVE); UROBILINOGEN,URINE NORMAL (NORMAL)
--- NOTE | 2018-10-28 16:10 | NUR ---
ice chips provided per request
[2018-10-28 16:12] LABS: BACTERIA,URINE NEGATIVE /HPF; SQUAMOUS EPITHELIAL CELL,UR RARE /HPF; WBC,URINE RARE /HPF
--- NOTE | 2018-10-28 16:30 | NUR ---
bedside glucose checked at this time, physician notified of critical results
[2018-10-28 16:54] VITALS: BP 166/131
== END 2018-10-28 16:54 | disposition home or self-care (01) ==
LOC: EDUNIT# 14:32 → ER 14:33
DX: E11.65 Type 2 diabetes mellitus with hyperglycemia (principal); I10 Essential (primary) hypertension; E78.00 Pure hypercholesterolemia, unspecified; E11.40 Type 2 diabetes mellitus with diabetic neuropathy, unspecified; F41.9 Anxiety disorder, unspecified; F32.9 Major depressive disorder, single episode, unspecified; Z79.82 Long term (current) use of aspirin; Z79.4 Long term (current) use of insulin; Z87.891 Personal history of nicotine dependence; Z98.84 Bariatric surgery status
CPT/HCPCS: 36415; 80053; 81000; 82962; 85025

== ENCOUNTER 2018-12-08 16:05 | Emergency (ER) | payer MEDICARE ==
[~2018-12-08] VITALS: Ht 162 cm; Wt 88.0 kg
[2018-12-08] MEDS ORDERED: LACTATED RINGERS 1,000 ML IV SCH (16:45)
[2018-12-08 16:50] LABS: BASOPHILS % (AUTO) 0 % (0-10); EOSINOPHILS # (AUTO) 0.2 10^3/uL (0.0-0.3); EOSINOPHILS % (AUTO) 2 % (0-10); HEMATOCRIT 28 % (35-52); HEMOGLOBIN 8.5 G/DL (11.5-16.0); LYMPHOCYTES # (AUTO) 1.1 X 10^3 (1.0-4.0); LYMPHOCYTES % (AUTO) 13 % (12-44); MEAN CORPUSCULAR HEMOGLOBIN 24 PG (25-34); MEAN CORPUSCULAR HGB CONC 31 G/DL (32-36); MEAN CORPUSCULAR VOLUME 79 FL (80-99); MEAN PLATELET VOLUME 9.5 FL (7.4-10.4); MONOCYTES # (AUTO) 0.6 X 10^3 (0.0-1.0); MONOCYTES % (AUTO) 7 % (0-12); NEUTROPHILS # (AUTO) 6.9 X 10^3 (1.8-7.8); NEUTROPHILS % (AUTO) 79 % (42-75); PLATELET COUNT 246 10^3/uL (130-400); WHITE BLOOD COUNT 8.8 10^3/uL (4.3-11.0)
[2018-12-08] MEDS ORDERED: inSUlin (REGULAR) HUMAN 1 UNIT/0.01 ML (CHARGE PER UNIT) IV SCH (17:00)
[2018-12-08] MEDS ORDERED: inSUlin (REGULAR) HUMAN 1 UNIT/0.01 ML (CHARGE PER UNIT) IV ONE (17:00)
[2018-12-08 17:09] LABS: BILIRUBIN,URINE NEGATIVE (NEGATIVE); COLOR,URINE YELLOW; GLUCOSE, URINE (UA) 4+ (NEGATIVE); KETONES,URINE NEGATIVE (NEGATIVE); LEUKOCYTE ESTERASE ,URINE 1+ (NEGATIVE); NITRITE,URINE NEGATIVE (NEGATIVE); PH,URINE 6 (5-9); PROTEIN,URINE 2+ (NEGATIVE); UROBILINOGEN,URINE NORMAL (NORMAL)
[2018-12-08 17:09] LABS: ALBUMIN 3.5 GM/DL (3.2-4.5); BILIRUBIN,TOTAL 0.3 MG/DL (0.1-1.0); CALCIUM 8.9 MG/DL (8.5-10.1); CREATININE SERUM 1.44 MG/DL (0.60-1.30); POTASSIUM 3.6 MMOL/L (3.6-5.0); TOTAL PROTEIN 6.4 GM/DL (6.4-8.2)
[2018-12-08 17:14] LABS: CLARITY,URINE SL CLOUDY
--- NOTE | 2018-12-08 17:15 | ED General ---
General Chief Complaint: Glucose Problems Stated Complaint: BLOOD SUGAR HIGH,FALL Nursing Triage Note: PT TO ROOM 9 PER W/C FROM [facility], PT HAS FALL OUT OF BED ON SATURDAY AND ELEVATED BS TODAY. STATES GAIT IN UNSTEADY. Nursing Sepsis Screen: No Definite Risk Source of Information: Patient Exam Limitations: No Limitations History of Present Illness Date Seen by Provider: Dec 08, 2018 Time Seen by Provider: 17:14 Initial Comments To ER with high blood sugar, fell recently states that her gait is unsteady. Had a high blood sugar today. She did hit her head when she fell out of bed a few days ago. Timing/Duration: 2-3 Days Severity: Moderate Associated Systoms: Headaches, Weakness Allergies and Home Medications Allergies Coded Allergies: No Known Drug Allergies (Unverified , 11/05/09) Home Medications Aspirin 81 Mg Tablet.dr, 81 MG PO DAILY, (Reported) Cefuroxime Axetil 500 Mg Tablet, 500 MG PO BID Prescribed by: SREEKANTH GROVER on 10/26/18 1309 Cefuroxime Axetil 250 Mg Tablet, 250 MG PO BID Prescribed by: RICK SAMPSON on 12/08/181913 Fluconazole 200 Mg Tablet, 200 MG PO DAILY Prescribed by: RICK SAMPSON on 12/08/181913 Gabapentin 300 Mg Capsule, 900 MG PO HS, (Reported) TAKES 3 (300MG) CAPSULES Hydrocodone/Acetaminophen 1 Each Tablet, 1 TAB PO Q6H PRN for PAIN-MODERATE, (Reported) Insulin Aspart 300 Units/3 Ml Solution, 0 SQ UD Prescribed by: RICK SAMPSON on 12/08/181913 Insulin Determir 1,000 Units/10 Ml Soln, 90 UNITS SC HS, (Reported) Liraglutide 0.6 Mg/0.1 Ml Pen.injctr, 1.8 MG SC DAILY, (Reported) Lovastatin 20 Mg Tablet, 20 MG PO HS, (Reported) Patient Home Medication List Home Medication List Reviewed: Yes Review of Systems Review of Systems Constitutional: see HPI EENTM: see HPI Respiratory: no symptoms reported Cardiovascular: no symptoms reported Genitourinary: no symptoms reported Musculoskeletal: no symptoms reported Skin: no symptoms reported Psychiatric/Neurological: No Symptoms Reported Hematologic/Lymphatic: No Symptoms Reported Immunological/Allergic: no symptoms reported Past Neihaby-Koixom-Lvyftr Hx Patient Social History Alcohol Use: Denies Use Recreational Drug Use: No Smoking Status: Former Smoker Type Used: Cigarettes 2nd Hand Smoke Exposure: No Recent Foreign Travel: No Contact w/Someone Who Travel: No Recent Infectious Disease Expo: No Recent Hopitalizations: No Physical Abuse: No Sexual Abuse: No Past Medical History Surgeries: Yes (GASTRIC BYPASS, BACK SX X 2) Abdominal, Orthopedic Respiratory: No Cardiac: Yes High Cholesterol, Hypertension Neurological: Yes Neuropathy 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 0.6oz. 84.293733wo; 33.00 BMI Method:Stated General Appearance: No Apparent Distress, WD/WN Eyes: Bilateral Eye Normal Inspection, Bilateral Eye PERRL, Bilateral Eye EOMI HEENT: PERRL/EOMI, TMs Normal Neck: Full Range of Motion, Normal Inspection Respiratory: No Accessory Muscle Use, No Respiratory Distress, Crackles (bibasilar bibasilar) Cardiovascular: Regular Rate, Rhythm, Normal Peripheral Pulses Gastrointestinal: Non Tender, Soft Extremity: Normal Capillary Refill, Normal Inspection Neurologic/Psychiatric: Alert, Oriented x3 Skin: Normal Color, Warm/Dry Focused Exam Lactate Level 12/08/18 16:45: Lactic Acid Level 1.51 Lactic Acid Level Laboratory Tests Test 12/08/18 16:45 Lactic Acid Level 1.51 MMOL/L (0.50-2.00) Progress/Results/Core Measures Suspected Sepsis Recent Fever Within 48 Hours: No Infection Criteria Present: None New/Unexplained Altered Menta: No Sepsis Screen: No Definite Risk SIRS Temperature: Pulse: 79 Respiratory Rate: 18 Laboratory Tests 12/08/18 16:45: White Blood Count 8.8 Blood Pressure 194 /97 Mean: 129 12/08/18 16:45: Lactic Acid Level 1.51 Laboratory Tests 12/08/18 16:45: Creatinine 1.44H, Platelet Count 246, Total Bilirubin 0.3 Results/Orders Lab Results Laboratory Tests Test 12/08/18 16:37 12/08/18 16:45 12/08/18 17:00 12/08/18 18:03 Range/Units Glucometer 445 *H 372 H 70-110 MG/DL White Blood Count 8.8 4.3-11.0 10^3/uL Red Blood Count 3.51 L 4.35-5.85 10^6/uL Hemoglobin 8.5 L 11.5-16.0 G/DL Hematocrit 28 L 35-52 % Mean Corpuscular Volume 79 L 80-99 FL Mean Corpuscular Hemoglobin 24 L 25-34 PG Mean Corpuscular Hemoglobin Concent 31 L 32-36 G/DL Red Cell Distribution Width 17.0 H 10.0-14.5 % Platelet Count 246 130-400 10^3/uL Mean Platelet Volume 9.5 7.4-10.4 FL Neutrophils (%) (Auto) 79 H 42-75 % Lymphocytes (%) (Auto) 13 12-44 % Monocytes (%) (Auto) 7 0-12 % Eosinophils (%) (Auto) 2 0-10 % Basophils (%) (Auto) 0 0-10 % Neutrophils # (Auto) 6.9 1.8-7.8 X 10^3 Lymphocytes # (Auto) 1.1 1.0-4.0 X 10^3 Monocytes # (Auto) 0.6 0.0-1.0 X 10^3 Eosinophils # (Auto) 0.2 0.0-0.3 10^3/uL Basophils # (Auto) 0.0 0.0-0.1 10^3/uL Sodium Level 135 135-145 MMOL/L Potassium Level 3.6 3.6-5.0 MMOL/L Chloride Level 99 98-107 MMOL/L Carbon Dioxide Level 27 21-32 MMOL/L Anion Gap 9 5-14 MMOL/L Blood Urea Nitrogen 17 7-18 MG/DL Creatinine 1.44 H 0.60-1.30 MG/DL Estimat Glomerular Filtration Rate 37 BUN/Creatinine Ratio 12 Glucose Level 463 *H 70-105 MG/DL Lactic Acid Level 1.51 0.50-2.00 MMOL/L Calcium Level 8.9 8.5-10.1 MG/DL Corrected Calcium 9.3 8.5-10.1 MG/DL Total Bilirubin 0.3 0.1-1.0 MG/DL Aspartate Amino Transf (AST/SGOT) 31 5-34 U/L Alanine Aminotransferase (ALT/SGPT) 25 0-55 U/L Alkaline Phosphatase 90 40-136 U/L B-Type Natriuretic Peptide 206.4 H <100.0 PG/ML Total Protein 6.4 6.4-8.2 GM/DL Albumin 3.5 3.2-4.5 GM/DL Beta-Hydroxybutyrate (Chem panel) 0.11 0.00-0.27 MMOL/L Urine Color YELLOW Urine Clarity SL CLOUDY Urine pH 6 5-9 Urine Specific Dan[place] 1.015 L 1.016-1.022 Urine Protein 2+ H NEGATIVE Urine Glucose (UA) 4+ H NEGATIVE Urine Ketones NEGATIVE NEGATIVE Urine Nitrite NEGATIVE NEGATIVE Urine Bilirubin NEGATIVE NEGATIVE Urine Urobilinogen NORMAL NORMAL MG/DL Urine Leukocyte Esterase 1+ H NEGATIVE Urine RBC (Auto) 4+ H NEGATIVE Urine RBC 25-50 H /HPF Urine WBC 5-10 H /HPF Urine Squamous Epithelial Cells 2-5 /HPF Urine Crystals NONE /LPF Urine Bacteria TRACE /HPF Urine Casts NONE /LPF Urine Mucus NEGATIVE /LPF Urine Yeast FEW H /HPF Urine Culture Indicated YES My Orders Orders - RICK SAMPSON APRN Cbc With Automated Diff (12/08/18 16:36) Comprehensive Metabolic Panel (12/08/18 16:36) Ct Head/Cervical Spine Wo (12/08/18 16:36) Chest Pa/Lat (2 View) (12/08/18 16:36) Lactic Acid Analyzer (12/08/18 16:36) Blood Culture (12/08/18 16:36) Beta Hydroxybutyrate (12/08/18 16:36) Lactated Ringers (Lr 1000 Ml Iv Solution (12/08/18 16:45) BNP (12/08/18 16:36) Ua Culture If Indicated (12/08/18 16:44) Insulin (Regular) Human (Humulin R (Per (12/08/18 17:00) Insulin (Regular) Human (Humulin R (Per (12/08/18 17:00) Urine Culture (12/08/18 17:00) Medications Given in ED Current Medications Medications Dose Ordered Sig/Edwar Route Start Time Stop Time Status Last Admin Dose Admin Insulin Human Regular 10 unit ONCE ONCE IV 12/08/18 17:00 12/08/18 17:01 DC 12/08/18 17:02 10 UNIT Vital Signs/I&O 12/08/18 16:35 Temp 37.8 Pulse 79 Resp 18 B/P (MAP) 194/97 (129) Pulse Ox 96 Capillary Refill : Less Than 3 Seconds Blood Pressure Mean: 129 Diagnostic Imaging Diagonstic Imaging: Xray, CT Comments NAME: GOPAL ISAACS [facility] REC#: [id number] PT STATUS: REG ER : 1955 PHYSICIAN: RICK SAMPSON APRN ADMIT DATE: 12/08/18/ER Draft Date of Exam:12/08/18 CHEST PA/LAT (2 VIEW) INDICATION: Chest discomfort. PA and lateral chest obtained at 5:05 p.m. and compared to 05/16/2017. FINDINGS: There is mild central vascular prominence which is new compared to the previous study, without agusto edema. There is some minimal linear atelectatic change in the left lung base. There is no overt consolidation, pleural fluid, or pneumothorax. IMPRESSION: Mildly increased central vascular prominence compared to the prior study without agusto edema. Mild left basilar atelectasis. No consolidation or pleural fluid. Dictated on workstation # [id number] Dict: 12/08/181707 Trans: 12/08/181711 [id number] Interpreted by: MALACHI HALL MD Electronically signed by: Departure Communication (Admissions) 1910-patient is feeling better overall, I'll have her follow up with outpatient primary care for repeat of hemoglobin, she states that she takes Levemir 100 units twice a day and despite this her blood sugars are still in the 3-405 100 range. As such I'll give her a prescription for NovoLog) and I'll give her a copy of our insulin sliding scale to take this with meals at home, will use sliding scale a period she has an appointment with director speech in January. Impression Primary Impression: Hyperglycemia Additional Impressions: Generalized weakness Urinary tract infection Disposition: HOME, SELF-CARE Condition: Stable Departure-Patient Inst. Decision time for Depature: 19:12 Referrals: [facility] (PCP/Family) Primary Care Physician Patient Instructions: Hyperglycemia, Adult Add. Discharge Instructions: Use the insulin sliding scale a protocol that was provided to you. Check your blood sugar before meals and then give herself an insulin dose based on the sliding scale provided 2. Antibiotics as directed 3. Follow-up with primary care next week. All discharge instructions reviewed with patient and/or family. Voiced understanding. Scripts Insulin Aspart (Novolog Flexpen) 300 Units/3 Ml Solution 0 SQ UD, #1 EA Prov: RICK SAMPSON APRN 12/08/18 Fluconazole (Diflucan) 200 Mg Tablet 200 MG PO DAILY, #2 TAB Prov: RICK SAMPSON APRN 12/08/18 Cefuroxime Axetil (Cefuroxime) 250 Mg Tablet 250 MG PO BID, #10 TAB Prov: RICK SAMPSON APRN 12/08/18 RICK SAMPSON APRN Dec 08, 2018 17:15
[2018-12-08 17:16] LABS: BACTERIA,URINE TRACE /HPF; RBC,URINE 25-50 /HPF; YEAST,URINE FEW /HPF
--- NOTE | 2018-12-08 17:19 | Diagnostic Imaging Report ---
PROCEDURE: CT head and CT cervical spine without contrast. TECHNIQUE: Multiple contiguous axial images were obtained through the brain and cervical spine without the use of intravenous contrast. Sagittal and coronal reformations through the cervical spine were then performed. Auto Exposure Controls were utilized during the CT exam to meet ALARA standards for radiation dose reduction. INDICATION: Head trauma, fell out of bed. CT HEAD: The ventricles are normal in size, shape, and position. There are no masses or hemorrhages. There are no extra-axial fluid collections. IMPRESSION: Negative CT head. CT CERVICAL SPINE: There is a slight lordotic curvature of the cervical spine. Alignment is normal. There is no fracture or prevertebral soft tissue swelling. The odontoid is intact. There are degenerative changes in the atlantoaxial joint and of the disks at C4-C5, C5-C6, and C6-C7. IMPRESSION: There are degenerative changes in the cervical spine. No acute abnormality seen. Dictated by: Dictated on workstation # [id number]
[2018-12-08] MEDS ORDERED: CEFU250T80 PO (19:14)
[2018-12-08] MEDS ORDERED: INSU100I14 SQ (19:14)
[2018-12-08] MEDS ORDERED: FLUC200T PO (19:14)
[2018-12-08 19:25] VITALS: BP 188/87
== END 2018-12-08 19:26 | disposition home or self-care (01) ==
LOC: EDUNIT# 16:05 → ER 16:06
DX: E11.65 Type 2 diabetes mellitus with hyperglycemia (principal); N39.0 Urinary tract infection, site not specified; R53.1 Weakness; E11.40 Type 2 diabetes mellitus with diabetic neuropathy, unspecified; I10 Essential (primary) hypertension; F41.9 Anxiety disorder, unspecified; F32.9 Major depressive disorder, single episode, unspecified; D64.9 Anemia, unspecified; E78.00 Pure hypercholesterolemia, unspecified; Z79.82 Long term (current) use of aspirin; Z79.4 Long term (current) use of insulin; Z87.891 Personal history of nicotine dependence
CPT/HCPCS: 36415; 70450; 71046; 72125; 80053; 81000; 82010; 82962; 83605; 83880; 85025; 87040; 87088

== ENCOUNTER 2019-01-09 07:28 | Emergency (ER) | payer MEDICARE ==
[~2019-01-09] VITALS: Ht 165 cm; Wt 86.2 kg
[~2019-01-09 07:28] MED LIST changes: +CEFU250T80 PO; +FLUC200T PO; +INSU100I14 SQ
--- NOTE | 2019-01-09 07:50 | ED EENT ---
History of Present Illness General Chief Complaint: Eye Problems Stated Complaint: ITCHING/BURNING OF EYES Source: patient Exam Limitations: no limitations History of Present Illness Date Seen by Provider: Jan 09, 2019 Time Seen by Provider: 07:44 Initial Comments 63-year-old female presents with burning itchy eyes for 2 days. Patient reports she started some Benadryl yesterday with minimal relief. She states that last week her whole body was can itchy. She has no sneezing, vision changes, eye drainage, cough, fevers, chills or other systemic complaints at this time Allergies and Home Medications Allergies Coded Allergies: No Known Drug Allergies (Unverified , 11/05/09) Home Medications Aspirin 81 Mg Tablet.dr, 81 MG PO DAILY, (Reported) Cefuroxime Axetil 500 Mg Tablet, 500 MG PO BID Prescribed by: SREEKANTH GROVER on 10/26/18 1309 Cefuroxime Axetil 250 Mg Tablet, 250 MG PO BID Prescribed by: RICK SAMPSON on 12/08/181913 Fluconazole 200 Mg Tablet, 200 MG PO DAILY Prescribed by: RICK SAMPSON on 12/08/181913 Gabapentin 300 Mg Capsule, 900 MG PO HS, (Reported) TAKES 3 (300MG) CAPSULES Hydrocodone/Acetaminophen 1 Each Tablet, 1 TAB PO Q6H PRN for PAIN-MODERATE, (Reported) Insulin Aspart 300 Units/3 Ml Solution, 0 SQ UD Prescribed by: RICK SAMPSON on 12/08/181913 Insulin Determir 1,000 Units/10 Ml Soln, 90 UNITS SC HS, (Reported) Liraglutide 0.6 Mg/0.1 Ml Pen.injctr, 1.8 MG SC DAILY, (Reported) Lovastatin 20 Mg Tablet, 20 MG PO HS, (Reported) Patient Home Medication List Home Medication List Reviewed: Yes Review of Systems Review of Systems Constitutional: No chills, No fever Eyes: See HPI Ears: No Symptoms Reported Nose: no symptoms reported Throat: no symptoms reported Respiratory: No cough, No short of breath Cardiovascular: No chest pain, No palpitations Musculoskeletal: no symptoms reported Skin: see HPI Neurological: No Symptoms Reported Past Vokufgc-Weovbs-Mlipdq Hx Past Med/Social Hx: Reviewed Nursing Past Med/Soc Hx Patient Social History Type Used: Cigarettes 2nd Hand Smoke Exposure: No Recent Foreign Travel: No Contact w/Someone Who Travel: No Recent Hopitalizations: No Past Medical History Surgeries: Yes (GASTRIC BYPASS, BACK SX X 2) Abdominal, Orthopedic Respiratory: No Cardiac: Yes High Cholesterol, Hypertension Neurological: Yes Neuropathy 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 0.6oz. 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 Patient denies any history of high blood pressure. However she is on insulin and a lipid medication. I recommended that she follow-up with her primary care provider early next week since Saturday for a recheck of her blood pressure to ensure that it is not from being in the ER and from her Benadryl and other medications. Since patient is not having any concerning symptoms we will not run any tests or start her on anything at this time ensure that she truly is having high blood pressure. Departure Impression Primary Impression: Allergic conjunctivitis, bilateral Additional Impression: Elevated blood pressure reading without diagnosis of hypertension Disposition: 01 HOME, SELF-CARE Condition: Stable Departure-Patient Inst. Referrals: [facility] (PCP/Family) Primary Care Physician Patient Instructions: Dry Eye, Controlling Your Blood Pressure Through Lifestyle, Conjunctivitis (Noninfectious Pinkeye), How to Use Eye Drops Add. Discharge Instructions: Add Dana, Zyrtec or similar in allergy medication. Alaway, Zaditor or Pataday over the counter antihistamine eye drops as directed on package All discharge instructions reviewed with patient and/or family. Voiced understa nding. NANCY OLSON DO Jan 09, 2019 07:50 POS
[2019-01-09 08:00] VITALS: BP 174/105
== END 2019-01-09 08:00 | disposition home or self-care (01) ==
LOC: EDUNIT# 07:28 → ER 07:29
DX: H10.13 Acute atopic conjunctivitis, bilateral (principal); I10 Essential (primary) hypertension; E78.00 Pure hypercholesterolemia, unspecified; E11.40 Type 2 diabetes mellitus with diabetic neuropathy, unspecified; F41.9 Anxiety disorder, unspecified; F32.9 Major depressive disorder, single episode, unspecified; D64.9 Anemia, unspecified; Z79.82 Long term (current) use of aspirin; Z79.4 Long term (current) use of insulin
CPT/HCPCS: 99282

== ENCOUNTER 2019-04-22 13:11 | Outpatient (RCR) | payer MEDICARE ==
[~2019-04-22 13:11] MED LIST changes: +HYDR-34 PO; -HYDR-3816 PO
== END 2019-05-20 11:03 | disposition home or self-care (01) ==
PROVIDERS: ATTEND Nurse Practitioner Family
DX: R29.6 Repeated falls (principal); R29.898 Other symptoms and signs involving the musculoskeletal system

== ENCOUNTER 2019-06-03 14:07 | Emergency (ER) | payer MEDICARE ==
[~2019-06-03] VITALS: Ht 162.5 cm; Wt 78.1 kg
[2019-06-03 14:39] LABS: BASOPHILS % (AUTO) 0 % (0-10); EOSINOPHILS # (AUTO) 0.2 10^3/uL (0.0-0.3); EOSINOPHILS % (AUTO) 2 % (0-10); HEMATOCRIT 36 % (35-52); HEMOGLOBIN 11.5 G/DL (11.5-16.0); LYMPHOCYTES # (AUTO) 1.6 X 10^3 (1.0-4.0); LYMPHOCYTES % (AUTO) 13 % (12-44); MEAN CORPUSCULAR HEMOGLOBIN 25 PG (25-34); MEAN CORPUSCULAR HGB CONC 32 G/DL (32-36); MEAN CORPUSCULAR VOLUME 80 FL (80-99); MEAN PLATELET VOLUME 9.9 FL (7.4-10.4); MONOCYTES # (AUTO) 0.9 X 10^3 (0.0-1.0); MONOCYTES % (AUTO) 8 % (0-12); NEUTROPHILS # (AUTO) 9.3 X 10^3 (1.8-7.8); NEUTROPHILS % (AUTO) 77 % (42-75); PLATELET COUNT 278 10^3/uL (130-400); RED CELL DISTRIBUTION WIDTH 15.8 % (10.0-14.5)
--- OUTSIDE RECORDS SUMMARY | 2019-06-03 14:42 | XMS REPORT ---
Author Author Emelyn Lira Organization [facility] Address [address] [place] [address] Care Team Providers Care School Psychology Specialist Name Role Phone [place] Lira Unavailable PROBLEMS Type Condition ICD9-CM Code NSM81-CR Code Onset Dates Condition S tatus SNOMED Code Problem Essential hypertension I10 Active 93448702 Problem RLS (restless legs syndrome) G25.81 A ctive 59089200 Problem Other chronic pain G89.29 Active 8 3417110 Problem Diabetic polyneuropathy associated with type 2 d iabetes mellitus E11.42 Active 80043584 Problem Spinal stenosis, unspecified spinal region M48.00 Active 81532212 Problem Encounter for immunization Z23 Act nicole 940390911 Problem Type 2 diabetes mellitus with other specified complication E11.69 Active 34956884930830 Problem Reactive depression F32.9 Active 02505800 Problem Hypoglycemia E16.2 Active 3397489 03 Problem Moderate episode of recurrent major depressive disorder F33.1 Active 853472900 Problem Hyperlipidemia, unspecified E78.5 Ac tive 85444085 Problem Falling R29.6 Active 309023403 Problem Type 2 diabetes mellitus with hyperglycemia E11.65 Active 369823044453606 Problem 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 Active 911591349 Problem Type 2 diabetes mellitus with other diabetic kid rory complication E11.29 Active 84804138 Problem Unsteady gait R26.81 Active 294082 008 Problem Moderate episode of recurrent major depressive disorder F33.1 Active 725418069 ALLERGIES No Information ENCOUNTERS Encounter Location Date Diagnosis [address] [id number] [place] [address] Jun, [place] [address] [id number] [place] [address] May, [place] [address] [id number] [place] [address] 11 May, 2019 Laceration of right periocular area with out foreign body, initial encounter S01.111A and Essential hypertension I10 [facility] [address] [place] [address] [id number] [place] [address] May, [facility] [address] [place] [address] [id number] [facility] [place] [address] May, Spinal stenosis, unspecified spinal joesph on M48.00 [facility] [address] [place] [address] [id number] [place] [address] Apr, Type 2 diabetes mellitus with other spec ified complication E11.69 ; Essential hypertension I10 and Hyperlipidemia, unspecified E78.5 [facility] [address] [place] [address] [id number] [facility] [place] [address] Apr, Spinal stenosis, unspecified spinal joesph on M48.00 [facility] [address] [id number] [place] [address] Apr, [facility] [address] [place] [address] [id number] [place] [address] Mar, Spinal stenosis, unspecified spinal joesph on M48.00 [facility] [place] [address] [id number] [place] [id number] Feb, Essential hypertension I10 ; Type 2 diab etes mellitus with hyperglycemia E11.65 ; Falling R29.6 and Spinal stenosis, unspecified spinal region M48.00 [facility] [place] [address] [id number] [place] [id number] Feb, Vertigo R42 and Laceration of right foot , initial encounter S91.311A [facility] [place] [address] [id number] [place] [id number] Jan, Essential hypertension I10 and Type 2 di abetes mellitus with hyperglycemia E11.65 [facility] [place] [address] [id number] [place] [id number] Jan, Spinal stenosis, unspecified spinal joesph on M48.00 [facility] [place] [address] [id number] [place] [id number] Jan, Essential hypertension I10 and Sp[address] enosis, unspecified spinal region M48.00 [facility] [place] [address] [id number] [place] [id number] 08 Jan, 2019 [facility] [place] [address] [id number] [place] [id number] Jan, [facility] [place] [address] [id number] [place] [id number] Dec, Type 2 diabetes mellitus with other spec ified complication E11.69 and Other chronic pain G89.29 [facility] [address] [id number] [place] [id number] Dec, Spinal stenosis, unspecified spinal joesph on M48.00 [facility] [address] [facility] [id number] [address] [place] [address] 14 Dec, 2018 Type 2 diabetes mellitus wit h other diabetic kidney complication E11.29 [facility] [address] [id number] [place] [id number] 14 Dec, 2018 Type 2 diabetes mellitus with other diab etic kidney complication E11.29 ; Fatigue, unspecified type R53.83 ; Moderate episode of recurrent major depressive disorder F33.1 and Acute cystitis with hematuria N30.01 [facility] [address] [id number] [place] [id number] 08 Dec, 2018 [facility] [address] [facility] [id number] [address] [place] [address] 07 Dec, 2018 Injury of head, initial enco unter S09.90XA ; Unsteady gait R26.81 and Hyperglycemia R73.9 [facility] [address] [id number] [place] [id number] Nov, Spinal stenosis, unspecified spinal joesph on M48.00 [facility] [address] [id number] [place] [id number] 17 Nov, 2018 Type 2 diabetes mellitus with other diab etic kidney complication E11.29 and half-way current use of insulin Z79.4 [facility] [place] [address] [id number] [place] [id number] Nov, Acute renal failure, unspecified acute r enal failure type N17.[address] [facility] [address] [id number] [place] [id number] Oct, Diabetic polyneuropathy associated with type 2 diabetes mellitus E11.42 ; Essential hypertension I10 ; Acute renal failure, unspecified acute renal failure type N17.9 and Spinal stenosis, unspecified spinal region M48.00 [facility] [place] [address] [id number] [place] [id number] Oct, Essential hypertension I10 ; Diabetic po lyneuropathy associated with type 2 diabetes mellitus E11.42 and Acute renal failure, unspecified acute renal failure type N17.[address] [facility] [address] [id number] [place] [id number] Oct, [facility] [place] [address] [id number] [place] [id number] Oct, [facility] [place] [address] [id number] [place] [id number] Oct, [facility] [place] [address] [id number] [place] [id number] Oct, Essential hypertension I10 ; Diabetic po lyneuropathy associated with type 2 diabetes mellitus E11.42 and Acute renal failure, unspecified acute renal failure type N17.9 [facility] [place] [address] [id number] [place] [id number] Oct, Spinal stenosis, unspecified spinal joesph on M48.00 [facility] [place] [address] [id number] [place] [id number] Sep, Spinal stenosis, unspecified spinal joesph on M48.00 [facility] [place] [address] [id number] [place] [id number] Sep, Type 2 diabetes mellitus with other spec ified complication E11.69 ; Vertigo R42 and Spinal stenosis, unspecified spinal region M48.00 [facility] [place] [address] [id number] [place] [id number] Sep, Spinal stenosis, unspecified spinal joesph on M48.00 [facility] [place] [address] [id number] [place] [id number] Sep, Spinal stenosis, unspecified spinal joesph on M48.00 [facility] [place] [address] [id number] [place] [id number] Aug, Spinal stenosis, unspecified spinal joesph on M48.00 [facility] [place] [address] [id number] [place] [id number] July, Diabetic polyneuropathy associated with type 2 diabetes mellitus E11.42 [facility] [place] [address] [id number] [place] [id number] July, Spinal stenosis, unspecified spinal joesph on M48.00 [facility] [place] [address] [id number] [place] [id number] July, Spinal stenosis, unspecified spinal joesph on M48.00 [facility] [place] [address] [id number] [place] [id number] Jun, Spinal stenosis, unspecified spinal joesph on M48.00 [facility] [place] [address] [id number] [place] [id number] Jun, Diabetic polyneuropathy associated with type 2 diabetes mellitus E11.42 [facility] [place] [address] [id number] [place] [id number] May, Diabetic polyneuropathy associated with type 2 diabetes mellitus E11.42 [facility] [place] [address] [id number] [place] [id number] May, [facility] [place] [address] [id number] [place] [id number] May, Spinal stenosis, unspecified spinal joesph on M48.00 [facility] [place] [address] [id number] [place] [id number] Apr, Spinal stenosis, unspecified spinal joesph on M48.[address] [facility] [address] [id number] [place] [id number] Apr, [facility] [address] [id number] [address] [place] [address] Apr, Puncture wound T14.8XXA ; Ab rasion T14.8XXA and Encounter for immunization Z23 [facility] [place] [address] [id number] [place] [id number] Mar, Spinal stenosis, unspecified spinal joesph on M48.00 [facility] [place] [address] [id number] [place] [id number] Feb, Spinal stenosis, unspecified spinal joesph on M48.00 [facility] [place] [address] [id number] [place] [id number] Jan, Type 2 diabetes mellitus with hyperglyce nadiya E11.65 ; Diabetes type 2, controlled E11.9 ; Spinal stenosis, unspecified spinal region M48.00 and Encounter for immunization Z23 [facility] [address] [id number] [address] [place] [address] Dec, Spinal stenosis, unspecified spinal region M48.00 [facility] [address] [id number] [address] [place] [address] Dec, [facility] [address] [id number] [address] [place] [address] Dec, [facility] [address] [id number] [address] [place] [address] Dec, [facility] [place] [address] [id number] [place] [id number] Nov, [facility] [place] [address] [id number] [place] [id number] Nov, Spinal stenosis, unspecified spinal joesph on M48.00 [facility] [place] [address] [id number] [place] [id number] Oct, Spinal stenosis, unspecified spinal joesph on M48.00 [facility] [place] [address] [id number] [place] [id number] Oct, Spinal stenosis, unspecified spinal joesph on M48.00 [facility] [place] [address] [id number] [place] [id number] Oct, [facility] [place] [address] [id number] [place] [id number] Oct, Diabetic polyneuropathy associated with type 2 diabetes mellitus E11.42 ; RLS (restless legs syndrome) G25.81 ; Spinal stenosis, unspecified spinal region M48.00 and Acute cystitis with hematuria N30.01 [facility] [place] [address] [id number] [place] [id number] Oct, [facility] [place] [address] [id number] [place] [id number] Oct, Spinal stenosis, unspecified spinal joesph on M48.00 [facility] [place] [address] [id number] [place] [id number] Sep, Diabetic polyneuropathy associated with type 2 diabetes mellitus E11.42 [facility] [address] [id number] [address] [place] [address] Sep, [facility] [place] [address] [id number] [place] [id number] Sep, Spinal stenosis, unspecified spinal joesph on M48.00 [facility] [address] [id number] [address] [place] [address] Aug, [facility] [place] [address] [id number] [place] [id number] Aug, Spinal stenosis, unspecified spinal joesph on M48.00 [facility] [place] [address] [id number] [place] [id number] Aug, Spinal stenosis, unspecified spinal joesph on M48.00 [facility] [place] [address] [id number] [place] [id number] July, [facility] [place] [address] [id number] [place] [id number] July, Diabetic polyneuropathy associated with type 2 diabetes mellitus E11.42 ; Type 2 diabetes mellitus with hyperglycemia E11.65 ; RLS (restless legs syndrome) G25.81 and Essential hypertension I10 [facility] [place] [address] [id number] [place] [id number] July, Spinal stenosis, unspecified spinal joesph on M48.00 [facility] [place] [address] [id number] [place] [id number] July, [facility] [place] [address] [id number] [place] [id number] Jun, Type 2 diabetes mellitus with other spec ified complication E11.69 [facility] [place] [address] [id number] [place] [id number] Jun, Spinal stenosis, unspecified spinal joesph on M48.00 [facility] [place] [address] [id number] [place] [id number] Jun, Hypoglycemia E16.2 [facility] [place] [address] [id number] [place] [id number] May, Hypoglycemia E16.2 ; Acute cystitis with hematuria N30.01 and Essential hypertension I10 [facility] [address] [facility] [id number] [address] [address] May, [facility] [place] [address] [id number] [place] [id number] May, Spinal stenosis, unspecified spinal joesph on M48.00 [facility] [place] [address] [id number] [place] [id number] May, Reactive depression F32.9 [facility] [place] [address] [id number] [place] [id number] May, [facility] [place] [address] [id number] [place] [id number] Apr, [facility] [address] [id number] [place] [id number] Apr, [facility] [address] [id number] [place] [address] Apr, [facility] [place] [address] [id number] [place] [id number] Apr, [facility] [place] [address] [id number] [place] [id number] Apr, Spinal stenosis, unspecified spinal joesph on M48.00 [facility] [place] [address] [id number] [place] [id number] 08 Apr, 2017 Type 2 diabetes mellitus with other spec ified complication E11.69 ; Spinal stenosis, unspecified spinal region M48.00 ; Reactive depression F32.9 and Essential hypertension I10 [facility] [place] [address] [facility] [address] [id number] [place] [id number] 07 Apr, 2017 [facility] [place] [address] [id number] [place] [id number] Mar, Spinal stenosis, unspecified spinal joesph on M48.00 [facility] [place] [address] [id number] [place] [id number] Feb, Acute non-recurrent maxillary sinusitis J01.00 and Essential hypertension I10 [facility] [place] [address] [id number] [place] [id number] Feb, Spinal stenosis, unspecified spinal joesph on M48.00 [facility] [place] [address] [id number] [place] [id number] Feb, Type 2 diabetes mellitus with other spec ified complication E11.69 [facility] [place] [address] [id number] [place] [id number] Feb, Type 2 diabetes mellitus with other spec ified complication E11.69 and Essential hypertension I10 [facility] [place] [address] [id number] [place] [id number] Feb, [facility] [place] [address] [id number] [place] [id number] Feb, [facility] [place] [address] [id number] [place] [id number] Jan, Spinal stenosis, unspecified spinal joesph on M48.00 [facility] [place] [address] [id number] [place] [id number] Jan, Diabetic polyneuropathy associated with type 2 diabetes mellitus E11.42 [facility] [place] [address] [id number] [place] [id number] 14 Jan, 2017 Diabetic polyneuropathy associated with type 2 diabetes mellitus E11.42 [facility] [place] [address] [id number] [place] [id number] Jan, Type 2 diabetes mellitus with hyperglyce nadiya E11.65 ; Type 2 diabetes mellitus with other specified complication E11.69 ; Spinal stenosis, unspecified spinal region M48.00 and Essential hypertension I10 [facility] [place] [address] [id number] [place] [id number] Jan, Diabetic polyneuropathy associated with type 2 diabetes mellitus E11.42 [facility] [place] [address] [id number] [place] [id number] Dec, [facility] [place] [address] [id number] [place] [id number] Dec, Diabetic polyneuropathy associated with type 2 diabetes mellitus E11.42 ; Type 2 diabetes mellitus with other specified complication E11.69 ; Hyperlipidemia, unspecified E78.5 ; Thyroid disorder E07.9 and Thyroid disorder screening Z13.29 [facility] [place] [address] [id number] [place] [id number] Dec, Diabetic polyneuropathy associated with type [address] [facility] [address] [facility] [id number] [address] [address] 17 Dec, 2016 Diabetic polyneuropathy asso ciated with type 2 diabetes mellitus E11.42 [facility] [place] [address] [id number] [place] [id number] Dec, Spinal stenosis, unspecified spinal joesph on M48.00 [facility] [place] [address] [id number] [place] [id number] Dec, [facility] [place] [address] [id number] [place] [id number] 18 Nov, 2016 Diabetic polyneuropathy associated with type 2 diabetes mellitus E11.42 [facility] [place] [address] [id number] [place] [id number] 15 Nov, 2016 Other chronic pain G89.29 [facility] [place] [address] [id number] [place] [id number] 14 Nov, 2016 Spinal stenosis, unspecified spinal joesph on M48.00 [facility] [place] [address] [id number] [place] [id number] Oct, Spinal stenosis, unspecified spinal joesph on M48.00 ; Essential hypertension I10 ; RLS (restless legs syndrome) G25.81 and Diabetic polyneuropathy associated with type 2 diabetes mellitus E11.42 [facility] [place] [address] [id number] [place] [id number] Oct, Spinal stenosis, unspecified spinal joesph on M48.00 [facility] [place] [address] [id number] [place] [id number] Sep, Diabetic polyneuropathy associated with type 2 diabetes mellitus E11.42 ; RLS (restless legs syndrome) G25.81 ; Spinal stenosis, unspecified spinal region M48.00 and Essential hypertension I10 [facility] [place] [address] [id number] [place] [id number] Sep, [facility] [place] [address] [id number] [place] [id number] Sep, Spinal stenosis, unspecified spinal joesph on M48.00 [facility] [place] [address] [id number] [place] [id number] Sep, [facility] [place] [address] [id number] [place] [id number] Aug, Spinal stenosis, unspecified spinal joesph on M48.00 [facility] [address] [id number] [address] [address] July, [facility] [place] [address] [id number] [place] [id number] July, Spinal stenosis, unspecified spinal joesph on M48.00 [facility] [place] [address] [id number] [place] [id number] Jun, Type 2 diabetes mellitus with hyperglyce nadiya E11.65 [facility] [place] [address] [id number] [place] [id number] Jun, Spinal stenosis, unspecified spinal joesph on M48.00 [facility] [place] [address] [id number] [place] [id number] May, Spinal stenosis, unspecified spinal joesph on M48.00 [facility] [place] [address] [id number] [place] [id number] Apr, Spinal stenosis, unspecified spinal joesph on M48.00 [facility] [address] [id number] [address] [place] [address] Mar, [facility] [place] [address] [id number] [place] [id number] Mar, Type 2 diabetes mellitus with hyperglyce nadiya E11.65 ; RLS (restless legs syndrome) G25.81 and Spinal stenosis, unspecified spinal region M48.00 [facility] [address] [id number] [address] [place] [address] Mar, [facility] [place] [address] [id number] [place] [id number] Mar, [facility] [place] [address] [facility] [id number] [id number] Mar, [facility] [place] [address] [id number] [place] [id number] Feb, [facility] [address] [id number] [address] [place] [address] Feb, [facility] [place] [address] [id number] [place] [id number] Feb, [facility] [place] [address] [id number] [place] [id number] Feb, [facility] [address] [facility] [id number] [address] [place] [address] Feb, [facility] [address] [id number] [address] [place] [address] Feb, [facility] [place] [address] [id number] [place] [id number] Jan, [facility] [place] [address] [id number] [place] [id number] Dec, Diabetic polyneuropathy associated with type 2 diabetes mellitus E11.42 ; Other chronic pain G89.29 ; Essential hypertension I10 and Encounter for immunization Z23 [facility] [place] [address] [id number] [place] [id number] Dec, [facility] [address] [facility] [id number] [address] [place] [address] Nov, [facility] [place] [address] [id number] [place] [id number] Nov, [facility] [place] [address] [id number] [place] [id number] Nov, Diabetes type 2, controlled E11.9 [facility] [place] [address] [id number] [place] [id number] 14 Nov, 2015 Diabetes type 2, controlled E11.9 ; Othe r chronic pain G89.29 ; Essential hypertension I10 ; Diabetic polyneuropathy associated with type 2 diabetes mellitus E11.42 and RLS (restless legs syndrome) G25.81 [facility] [address] [facility] [id number] [address] [place] [address] Nov, [facility] [place] [address] [id number] [place] [id number] Oct, [facility] [place] [address] [id number] [place] [id number] Oct, [facility] [place] [address] [id number] [place] [id number] Oct, [facility] [address] [facility] [id number] [address] [place] [address] Oct, [facility] [place] [address] [id number] [place] [id number] Sep, [facility] [place] [address] [id number] [place] [id number] Sep, [facility] [address] [facility] [id number] [address] [place] [address] Sep, Dental examination Z01.20 [facility] [address] [facility] [id number] [address] [place] [address] Aug, [facility] [place] [address] [id number] [place] [id number] Aug, [facility] [address] [facility] [id number] [address] [place] [address] Aug, [facility] [address] [facility] [id number] [address] [place] [address] July, [facility] [place] [facility] [address] [facility] [id number] [address] [place] [id number] July, [facility] [address] [facility] [id number] [address] [place] [phone] July, [facility] [place] [address] [id number] [place] [id number] July, [facility] [place] [address] [id number] [place] [id number] July, [facility] [place] [address] [id number] [place] [id number] July, [facility] [address] [facility] [id number] [address] [place] [phone] July, [facility] [place] [address] [id number] [place] [id number] Jun, Diabetes type 2, controlled E11.9 [facility] [place] [address] [id number] [place] [id number] Jun, [facility] [place] [address] [id number] [place] [id number] May, Diabetes type 1, uncontrolled E10.65 [facility] [place] [address] [id number] [place] [id number] May, [facility] [place] [address] [id number] [place] [id number] Apr, [facility] [place] [address] [id number] [place] [id number] Apr, [facility] [place] [address] [id number] [place] [id number] Mar, [facility] [place] [address] [id number] [place] [id number] Mar, [facility] [place] [address] [id number] [place] [id number] Mar, [facility] [address] [id number] [place] [id number] Mar, Diabetes type 1, uncontrolled E10.65 [facility] [place] [address] [id number] [place] [id number] Feb, [facility] [address] [id number] [place] [id number] Feb, [facility] [address] [id number] [place] [id number] Feb, [facility] [place] [id number] [facility] [address] [id number] [id number] Jan, [facility] [place] [address] [id number] [place] [id number] Jan, Dysuria R30.0 and Acute cystitis with he maturia N30.01 [facility] [place] [address] [id number] [place] [id number] Jan, [facility] [place] [address] [id number] [place] [id number] Dec, Gastroenteritis K52.9 and Headache, unsp ecified headache type R51 [facility] [place] [address] [id number] [place] [id number] Dec, [facility] [place] [address] [id number] [place] [id number] Dec, Chronic back pain 724.5 [facility] [address] [facility] [id number] [id number] Dec, [facility] [place] [address] [id number] [place] [id number] Nov, Chronic back pain 724.5 and Diabetes frank litus without mention of complication, type II or unspecified type, uncontrolled 250.02 [facility] [place] [address] [id number] [place] [id number] Nov, [facility] [place] [address] [id number] [place] [id number] Oct, [facility] [address] [id number] [place] [id number] Sep, Diabetes mellitus without mention of com plication, type II or unspecified type, uncontrolled 250.02 and Urinary tract infection 599.0 [facility] [place] [address] [id number] [place] [id number] July, [facility] [address] [facility] [id number] [address] [place] [address], [place] [address] Jun, [facility] [address] [id number] [address] [place] [address] Jun, [facility] [place] [address] [facility] [id number] [place] [id number] May, [facility] [address] [facility] [id number] [address] [place] [address] May, [facility] [place] [address] [facility] [id number] [place] [id number] May, [facility] [address] [facility] [id number] [address] [place] [address] May, [facility] [place] [address] [facility] [id number] [place] [id number] Mar, [facility] [address] [facility] [id number] [address] [place] [address] Mar, [facility] [address] [facility] [id number] [address] [place] [address] Mar, [facility] [place] [address] [id number] [place] [id number] Mar, [facility] [place] [address] [facility] [id number] [place] [id number] Feb, [facility] [address] [facility] [id number] [address] [place] [address] Feb, [facility] [place] [address] [facility] [id number] [place] [id number] Feb, [facility] [address] [facility] [id number] [address] [place] [address] Feb, [facility] [address] [id number] [address] [place] [address], [place] [address] Feb, [facility] [place] [address] [id number] [place] [id number] Feb, [facility] [place] [address] [id number] [place] [id number] Feb, [facility] [address] [id number] [address] [place] [address], [place] [address] Feb, [facility] [address] [id number] [address] [place] [address], [place] [address] Feb, [facility] [place] [address] [id number] [place] [id number] Jan, [facility] [address] [id number] [address] [place] [address], [place] [address] Jan, [facility] [place] [address] [id number] [place] [id number] Jan, [facility] [address] [id number] [address] [place] [address], [place] [address] Jan, [facility] [place] [address] [id number] [place] [id number] Dec, [facility] [address] [id number] [address] [place] [address] Dec, [facility] [address] [facility] [id number] [address] [place] [address] Dec, [facility] [address] [id number] [address] [place] [address] Dec, [facility] [place] [address] [id number] [place] [id number] Dec, [facility] [address] [id number] [address] [place] [address], [place] [address] Dec, [facility] [place] [address] [id number] [place] [id number] Nov, [facility] [address] [id number] [address] [place] [address], [place] [address] Nov, [facility] [place] [address] [id number] [place] [id number] Oct, [facility] [address] [id number] [address] [place] [address], [place] [address] Oct, [facility] [address] [id number] [address] [place] [address], [place] [address] Sep, [facility] [place] [address] [id number] [place] [id number] Sep, [facility] [place] [address] [id number] [place] [id number] Aug, [facility] [address] [id number] [address] [place] [address], [place] [address] Aug, [facility] [place] [address] [id number] [place] [id number] July, [facility] [address] [id number] [address] [place] [address], [place] [address] July, [facility] [place] [address] [id number] [place] [id number] July, [facility] [address] [id number] [address] [place] [address], [place] [address] July, [facility] [address] [id number] [address] [place] [address], [place] [address] July, [facility] [address] [id number] [address] [place] [address] Jun, [facility] [place] [address] [id number] [place] [id number] Jun, [facility] [place] [address] [id number] [place] [id number] Jun, [facility] [address] [id number] [address] [place] [address], [place] [address] Jun, [facility] [address] [id number] [address] [place] [address], [place] [address] Jun, [facility] [address] [id number] [address] [place] [address], [place] [address] May, [facility] [place] [address] [id number] [place] [id number] Apr, [facility] [address] [id number] [address] [place] [address], [place] [address] Apr, [facility] [place] [address] [id number] [place] [id number] Apr, [facility] [address] [id number] [address] [place] [address], [place] [address] Apr, [facility] [address] [id number] [address] [place] [address], [place] [address] Mar, [facility] [address] [id number] [address] [place] [address], [place] [address] Mar, [facility] [address] [id number] [address] [place] [address], [place] [address] Mar, [facility] [place] [address] [id number] [place] [id number] Mar, [facility] [address] [id number] [address] [place] [address], [place] [address] Mar, [facility] [address] [id number] [address] [place] [address], [place] [address] Mar, [facility] [address] [id number] [address] [place] [address], [place] [address] Feb, [facility] [place] [address] [id number] [place] [id number] Feb, [facility] [address] [id number] [address] [place] [address], [place] [address] Feb, [facility] [place] [address] [id number] [place] [id number] Feb, [facility] [address] [id number] [address] [place] [address], [place] [address] Feb, [facility] [place] [address] [id number] [place] [id number] Feb, [facility] [address] [id number] [address] [place] [address] Feb, [facility] [place] [address] [id number] [place] [id number] Jan, [facility] [address] [facility] [id number] [address] [place] [address] Jan, [facility] [address] [facility] [id number] [address] [place] [address] Dec, [facility] [place] [address] [id number] [place] [id number] Dec, [facility] [address] [facility] [id number] [address] [place] [address] Nov, [facility] [place] [address] [id number] [place] [id number] Oct, [facility] [place] [address] [id number] [place] [id number] Oct, [facility] [place] [address] [id number] [place] [id number] Sep, [facility] [address] [facility] [id number] [address] [place] [address] Sep, [facility] [place] [address] [id number] [place] [id number] Sep, [facility] [place] [address] [id number] [place] [id number] Sep, [facility] [place] [address] [id number] [place] [id number] Sep, [facility] [place] [address] [id number] [place] [id number] Sep, [facility] [place] [address] [id number] [place] [id number] Sep, [facility] [address] [facility] [id number] [address] [place] [address] Aug, [facility] [place] [address] [id number] [place] [id number] Aug, [facility] [address] [id number] [address] [place] [address], [place] [address] July, [facility] [place] [address] [id number] [place] [id number] July, [facility] [address] [facility] [id number] [address] [place] [address] July, [facility] [place] [address] [id number] [place] [id number] Jun, [facility] [place] [address] [id number] [place] [id number] Jun, [facility] [place] [address] [id number] [place] [id number] Jun, [facility] [address] [facility] [id number] [address] [place] [address], [place] [address] Jun, [facility] [place] [address] [id number] [place] [id number] May, [facility] [place] [address] [id number] [place] [id number] May, [facility] [address] [id number] [address] [place] [address], [place] [address] May, [facility] [place] [address] [id number] [place] [id number] Apr, [facility] [address] [id number] [address] [place] [address] Apr, [facility] [place] [address] [id number] [place] [id number] Apr, [facility] [place] [address] [id number] [place] [id number] Apr, [facility] [address] [id number] [address] [place] [address] Mar, [facility] [place] [address] [id number] [place] [id number] Mar, [facility] [place] [address] [id number] [place] [id number] Mar, [facility] [place] [address] [id number] [place] [id number] Feb, [facility] [address] [facility] [id number] [address] [place] [address] Feb, [facility] [place] [address] [id number] [place] [id number] Jan, [facility] [place] [address] [id number] [place] [id number] Jan, [facility] [address] [facility] [id number] [address] [place] [address] Jan, [facility] [address] [facility] [id number] [address] [place] [address] Jan, [facility] [place] [address] [id number] [place] [id number] Jan, [facility] [address] [facility] [id number] [address] [place] [address] Jan, [facility] [place] [address] [id number] [place] [id number] Dec, [facility] [address] [facility] [id number] [address] [place] [address] Dec, [facility] [place] [address] [id number] [place] [id number] Dec, [facility] [address] [id number] [address] [place] [address] Dec, [facility] [place] [address] [id number] [place] [id number] Dec, [facility] [place] [address] [id number] [place] [id number] Nov, [facility] [place] [address] [id number] [place] [id number] Nov, [facility] [place] [address] [id number] [place] [id number] Oct, [facility] [place] [address] [id number] [place] [id number] Oct, [facility] [place] [address] [id number] [place] [id number] Sep, [facility] [place] [address] [id number] [place] [id number] Sep, [facility] [place] [address] [id number] [place] [id number] Sep, [facility] [place] [address] [id number] [place] [id number] Aug, [facility] [place] [address] [id number] [place] [id number] Aug, [facility] [place] [address] [id number] [place] [id number] July, [facility] [place] [address] [id number] [place] [id number] July, [facility] [place] [address] [id number] [place] [id number] July, [facility] [place] [address] [id number] [place] [id number] July, [facility] [address] [facility] [id number] [address] [place] [address], [place] [address] Jun, [facility] [place] [address] [id number] [place] [id number] Jun, [facility] [place] [address] [id number] [place] [id number] Jun, [facility] [place] [address] [id number] [place] [id number] Jun, [facility] [place] [address] [id number] [place] [id number] May, [facility] [place] [address] [id number] [place] [id number] May, [facility] [place] [address] [id number] [place] [id number] Apr, [facility] [place] [address] [id number] [place] [id number] Apr, [facility] [place] [address] [id number] [place] [id number] Apr, [facility] [place] [address] [id number] [place] [id number] Apr, [facility] [place] [address] [id number] [place] [id number] Apr, [facility] [address] [id number] [address] [place] [address] Apr, [facility] [place] [address] [id number] [place] [id number] Apr, [facility] [place] [address] [id number] [place] [id number] Apr, [facility] [place] [address] [id number] [place] [id number] Mar, [facility] [address] [facility] [id number] [address] [place] [address] Feb, [facility] [address] [id number] [address] [place] [address] Feb, [facility] [address] [facility] [id number] [address] [place] [address] Feb, [facility] [address] [facility] [id number] [address] [place] [address] Feb, [facility] [address] [facility] [id number] [address] [place] [address] Jan, [facility] [address] [facility] [id number] [address] [place] [address] Jan, [facility] [address] [facility] [id number] [address] [place] [address] Jan, [facility] [address] [facility] [id number] [address] [place] [address] Dec, [facility] [address] [facility] [id number] [address] [place] [address] Dec, [facility] [address] [id number] [address] [place] [address], [place] [address] 17 Aug, 2010 [facility] [address] [id number] [address] [place] [address], [place] [address] Aug, [facility] [address] [id number] [address] [place] [address], [place] [address] 30 Feb, 2010 [facility] [address] [id number] [address] [place] [address], [place] [address] Feb, [facility] [address] [id number] [address] [place] [address], [place] [address] Jan, [facility] [address] [id number] [address] [place] [address], [place] [address] Jan, [facility] [address] [id number] [address] [place] [address], [place] [address] Dec, [facility] [address] [id number] [address] [place] [address], [place] [address] Dec, [facility] [address] [id number] [address] [place] [address], [place] [address] Dec, [facility] [address] [id number] [address] [place] [address], [place] [address] May, [facility] [address] [id number] [address] [place] [address], [place] [address] Mar, [facility] [address] [id number] [address] [place] [address], [place] [address] Feb, [facility] [address] [id number] [address] [place] [address], [place] [address] Feb, [facility] [address] [id number] [address] [place] [address], [place] [address] Feb, [facility] [address] [id number] [address] [place] [address], [place] [address] Jan, [facility] [address] [id number] [address] [address] Jan, [facility] [address] [facility] [id number] [address] [place] [address] Oct, [facility] [address] [facility] [id number] [address] [place] [address] July, [facility] [address] [facility] [id number] [address] [place] [address] Apr, [facility] [address] [facility] [id number] [address] [place] [address] Jan, [facility] [address] [facility] [id number] [address] [place] [id number] Jan, IMMUNIZATIONS No Known Immunizations SOCIAL HISTORY Never Assessed REASON FOR VISIT PLAN OF CARE VITAL SIGNS MEDICATIONS Unknown Medications RESULTS No Results PROCEDURES No Known procedures INSTRUCTIONS MEDICATIONS ADMINISTERED No Known Medications MEDICAL (GENERAL) HISTORY Type Description Date Medical History hyperlipidemia Medical History gastrointestinal disorder-ch ronic gastritis on EGD 2009, Colonoscopy mild diverticulitis 2009 Medical History spinal stenosis-3 bulging disk in lower back Medical History hypertension Medical History hematologic disorder-severe iron deficiency anemia due to hx of gastric bypass Medical History type II diabetes Surgical History cholecystectomy Surgical History tonsillectomy Surgical History appendectomy Surgical History surgery for AAA 23 lb cyst removed from ovary Surgical History gastric surgery for morbid o besity by vertical-banded gastroplasty Surgical History complete hysterectomy and re secection of 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
--- OUTSIDE RECORDS SUMMARY | 2019-06-03 14:42 | XMS REPORT ---
Author Author Emelyn Lira Organization [facility] Address [address] [place] [address] Care Team Providers Care Machine Crater Name Role Phone [place] Lira Unavailable PROBLEMS Type Condition ICD9-CM Code [id number]-PL Code Onset Dates Condition S tatus SNOMED Code Problem Essential hypertension I10 Active 67483105 Problem RLS (restless legs syndrome) G25.81 A ctive 86281035 Problem Other chronic pain G89.29 Active 8 8129771 Problem Diabetic polyneuropathy associated with type 2 d iabetes mellitus E11.42 Active 08551642 Problem Spinal stenosis, unspecified spinal region M48.00 Active 00392732 Problem Encounter for immunization Z23 Act nicole 565997190 Problem Type 2 diabetes mellitus with other specified complication E11.69 Active 14640637947050 Problem Reactive depression F32.9 Active 37116428 Problem Hypoglycemia E16.2 Active 1709286 03 Problem Moderate episode of recurrent major depressive disorder F33.1 Active 785522040 Problem Hyperlipidemia, unspecified E78.5 Ac tive 09061900 Problem Falling R29.6 Active 787818262 Problem Type 2 diabetes mellitus with hyperglycemia E11.65 Active 341403950702897 Problem 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 Active 889254901 Problem Type 2 diabetes mellitus with other diabetic kid rory complication E11.29 Active 83120626 Problem Unsteady gait R26.81 Active 782223 008 Problem Moderate episode of recurrent major depressive disorder F33.1 Active 932448037 ALLERGIES No Information ENCOUNTERS Encounter Location Date Diagnosis [address] [id number] [place] [address] Jun, [place] [address] [id number] [place] [address] May, [place] [address] [id number] [place] [address] 11 May, 2019 Laceration of right periocular area with out foreign body, initial encounter S01.111A and Essential hypertension I10 [facility] [address] [place] [address] [id number] [place] [address] May, [facility] [address] [place] [address] [id number] [place] [address] May, Spinal stenosis, unspecified spinal joesph on M48.00 [facility] [address] [place] [address] [id number] [place] [address] Apr, Type 2 diabetes mellitus with other spec ified complication E11.69 ; Essential hypertension I10 and Hyperlipidemia, unspecified E78.5 [facility] [address] [place] [address] [id number] [place] [address] Apr, Spinal stenosis, unspecified spinal joesph on M48.00 [facility] [address] [id number] [place] [address] Apr, [facility] [address] [place] [address] [id number] [facility] [place] [address] Mar, Spinal stenosis, unspecified spinal joesph on M48.00 [facility] [place] [address] [id number] [place] [id number] Feb, Essential hypertension I10 ; Type 2 diab etes mellitus with hyperglycemia E11.65 ; Falling R29.6 and Spinal stenosis, unspecified spinal region M48.00 [facility] [place] [address] [id number] [place] [id number] Feb, Vertigo R42 and Laceration of right foot , initial encounter S91.311A [facility] [place] [address] [id number] [place] [id number] Jan, Essential hypertension I10 and Type 2 di abetes mellitus with hyperglycemia E11.65 [facility] [place] [address] [id number] [place] [id number] Jan, Spinal stenosis, unspecified spinal joesph on M48.00 [facility] [place] [address] [id number] [place] [id number] Jan, Essential hypertension I10 and Spinal st enosis, unspecified spinal region M48.00 [facility] [place] [address] [id number] [place] [id number] 08 Jan, 2019 [facility] [place] [address] [id number] [place] [id number] Jan, [facility] [place] [address] [id number] [place] [id number] Dec, Type 2 diabetes mellitus with other spec ified complication E11.69 and Other chronic pain G89.29 [facility] [address] [id number] [place] [id number] Dec, Spinal stenosis, unspecified spinal joesph on M48.00 [facility] [address] [facility] [id number] [address] [place] [address] 14 Dec, 2018 Type 2 diabetes mellitus wit h other diabetic kidney complication E11.29 [facility] [address] [id number] [place] [id number] 14 Dec, 2018 Type 2 diabetes mellitus with other diab etic kidney complication E11.29 ; Fatigue, unspecified type R53.83 ; Moderate episode of recurrent major depressive disorder F33.1 and Acute cystitis with hematuria N30.01 [facility] [address] [id number] [place] [id number] 08 Dec, 2018 [facility] [address] [facility] [id number] [address] [place] [address] 07 Dec, 2018 Injury of head, initial enco unter S09.90XA ; Unsteady gait R26.81 and Hyperglycemia R73.9 [facility] [address] [id number] [place] [id number] Nov, Spinal stenosis, unspecified spinal joesph on M48.00 [facility] [address] [id number] [place] [id number] 17 Nov, 2018 Type 2 diabetes mellitus with other diab etic kidney complication E11.29 and [facility] current use of insulin Z79.4 [facility] [place] [address] [id number] [place] [id number] Nov, Acute renal failure, unspecified acute r enal failure type N17.[address] [facility] [address] [id number] [place] [id number] Oct, Diabetic polyneuropathy associated with type 2 diabetes mellitus E11.42 ; Essential hypertension I10 ; Acute renal failure, unspecified acute renal failure type N17.9 and Spinal stenosis, unspecified spinal region M48.00 [facility] [place] [address] [id number] [place] [id number] Oct, Essential hypertension I10 ; Diabetic po lyneuropathy associated with type 2 diabetes mellitus E11.42 and Acute renal failure, unspecified acute renal failure type N17.[address] [facility] [address] [id number] [place] [id number] Oct, [facility] [place] [address] [id number] [place] [id number] Oct, [facility] [place] [address] [id number] [place] [id number] Oct, [facility] [place] [address] [id number] [place] [id number] Oct, Essential hypertension I10 ; Diabetic po lyneuropathy associated with type 2 diabetes mellitus E11.42 and Acute renal failure, unspecified acute renal failure type N17.9 [facility] [place] [address] [id number] [place] [id number] Oct, Spinal stenosis, unspecified spinal joesph on M48.00 [facility] [place] [address] [id number] [place] [id number] Sep, Spinal stenosis, unspecified spinal joesph on M48.00 [facility] [place] [address] [id number] [place] [id number] Sep, Type 2 diabetes mellitus with other spec ified complication E11.69 ; Vertigo R42 and Spinal stenosis, unspecified spinal region M48.00 [facility] [place] [address] [id number] [place] [id number] Sep, Spinal stenosis, unspecified spinal joesph on M48.00 [facility] [place] [address] [id number] [place] [id number] Sep, Spinal stenosis, unspecified spinal joesph on M48.00 [facility] [place] [address] [id number] [place] [id number] Aug, Spinal stenosis, unspecified spinal joesph on M48.00 [facility] [place] [address] [id number] [place] [id number] July, Diabetic polyneuropathy associated with type 2 diabetes mellitus E11.42 [facility] [place] [address] [id number] [place] [id number] July, Spinal stenosis, unspecified spinal joesph on M48.00 [facility] [place] [address] [id number] [place] [id number] July, Spinal stenosis, unspecified spinal joesph on M48.00 [facility] [place] [address] [id number] [place] [id number] Jun, Spinal stenosis, unspecified spinal joesph on M48.00 [facility] [place] [address] [id number] [place] [id number] Jun, Diabetic polyneuropathy associated with type 2 diabetes mellitus E11.42 [facility] [place] [address] [id number] [place] [id number] May, Diabetic polyneuropathy associated with type 2 diabetes mellitus E11.42 [facility] [place] [address] [id number] [place] [id number] May, [facility] [place] [address] [id number] [place] [id number] May, Spinal stenosis, unspecified spinal joesph on M48.00 [facility] [place] [address] [id number] [place] [id number] Apr, Spinal stenosis, unspecified spinal joesph on M48.[address] [facility] [address] [id number] [place] [id number] Apr, [facility] [address] [id number] [address] [place] [address] Apr, Puncture wound T14.8XXA ; Ab rasion T14.8XXA and Encounter for immunization Z23 [facility] [place] [address] [id number] [place] [id number] Mar, Spinal stenosis, unspecified spinal joesph on M48.00 [facility] [place] [address] [id number] [place] [id number] Feb, Spinal stenosis, unspecified spinal joesph on M48.00 [facility] [place] [address] [id number] [place] [id number] Jan, Type 2 diabetes mellitus with hyperglyce nadiya E11.65 ; Diabetes type 2, controlled E11.9 ; Spinal stenosis, unspecified spinal region M48.00 and Encounter for immunization Z23 [facility] [address] [id number] [address] [place] [address] Dec, Spinal stenosis, unspecified spinal region M48.00 [facility] [address] [id number] [address] [place] [address] Dec, [facility] [address] [id number] [address] [place] [address] Dec, [facility] [address] [id number] [address] [place] [address] Dec, [facility] [place] [address] [id number] [place] [id number] Nov, [facility] [place] [address] [id number] [place] [id number] Nov, Spinal stenosis, unspecified spinal joesph on M48.00 [facility] [place] [address] [id number] [place] [id number] Oct, Spinal stenosis, unspecified spinal joesph on M48.00 [facility] [place] [address] [id number] [place] [id number] Oct, Spinal stenosis, unspecified spinal joesph on M48.00 [facility] [place] [address] [id number] [place] [id number] Oct, [facility] [place] [address] [id number] [place] [id number] Oct, Diabetic polyneuropathy associated with type 2 diabetes mellitus E11.42 ; RLS (restless legs syndrome) G25.81 ; Spinal stenosis, unspecified spinal region M48.00 and Acute cystitis with hematuria N30.01 [facility] [place] [address] [id number] [place] [id number] Oct, [facility] [place] [address] [id number] [place] [id number] Oct, Spinal stenosis, unspecified spinal joesph on M48.00 [facility] [place] [address] [id number] [place] [id number] Sep, Diabetic polyneuropathy associated with type 2 diabetes mellitus E11.42 [facility] [address] [id number] [address] [place] [address] Sep, [facility] [place] [address] [id number] [place] [id number] Sep, Spinal stenosis, unspecified spinal joesph on M48.00 [facility] [place] [address] [id number] [address] [place] [address] Aug, [facility] [place] [address] [id number] [place] [id number] Aug, Spinal stenosis, unspecified spinal joesph on M48.00 [facility] [place] [address] [id number] [place] [id number] Aug, Spinal stenosis, unspecified spinal joesph on M48.00 [facility] [place] [address] [id number] [place] [id number] July, [facility] [place] [address] [id number] [place] [id number] July, Diabetic polyneuropathy associated with type 2 diabetes mellitus E11.42 ; Type 2 diabetes mellitus with hyperglycemia E11.65 ; RLS (restless legs syndrome) G25.81 and Essential hypertension I10 [facility] [place] [address] [id number] [place] [id number] July, Spinal stenosis, unspecified spinal joesph on M48.00 [facility] [place] [address] [id number] [place] [id number] July, [facility] [place] [address] [id number] [place] [id number] Jun, Type 2 diabetes mellitus with other spec ified complication E11.69 [facility] [place] [address] [id number] [place] [id number] Jun, Spinal stenosis, unspecified spinal joesph on M48.00 [facility] [place] [address] [id number] [place] [id number] Jun, Hypoglycemia E16.2 [facility] [place] [address] [id number] [place] [id number] May, Hypoglycemia E16.2 ; Acute cystitis with hematuria N30.01 and Essential hypertension I10 [facility] [address] [facility] [id number] [place] [address] May, [facility] [place] [address] [id number] [place] [id number] May, Spinal stenosis, unspecified spinal joesph on M48.00 [facility] [place] [address] [id number] [place] [id number] May, Reactive depression F32.9 [facility] [place] [address] [id number] [place] [id number] May, [facility] [place] [address] [id number] [place] [id number] Apr, [facility] [address] [id number] [place] [id number] Apr, [facility] [address] [id number] [place] [address] Apr, [facility] [place] [address] [id number] [place] [id number] Apr, [facility] [place] [address] [id number] [place] [id number] Apr, Spinal stenosis, unspecified spinal joesph on M48.00 [facility] [place] [address] [id number] [place] [id number] 08 Apr, 2017 Type 2 diabetes mellitus with other spec ified complication E11.69 ; Spinal stenosis, unspecified spinal region M48.00 ; Reactive depression F32.9 and Essential hypertension I10 [facility] [place] [address] [facility] [address] [id number] [place] [id number] 07 Apr, 2017 [facility] [place] [address] [id number] [place] [id number] Mar, Spinal stenosis, unspecified spinal joesph on M48.00 [facility] [place] [address] [id number] [place] [id number] Feb, Acute non-recurrent maxillary sinusitis J01.00 and Essential hypertension I10 [facility] [place] [address] [id number] [place] [id number] Feb, Spinal stenosis, unspecified spinal joesph on M48.00 [facility] [place] [address] [id number] [place] [id number] Feb, Type 2 diabetes mellitus with other spec ified complication E11.69 [facility] [place] [address] [id number] [place] [id number] Feb, Type 2 diabetes mellitus with other spec ified complication E11.69 and Essential hypertension I10 [facility] [place] [address] [id number] [place] [id number] Feb, [facility] [place] [address] [id number] [place] [id number] Feb, [facility] [place] [address] [id number] [place] [id number] Jan, Spinal stenosis, unspecified spinal joesph on M48.00 [facility] [place] [address] [id number] [place] [id number] Jan, Diabetic polyneuropathy associated with type 2 diabetes mellitus E11.42 [facility] [place] [address] [id number] [place] [id number] 14 Jan, 2017 Diabetic polyneuropathy associated with type 2 diabetes mellitus E11.42 [facility] [place] [address] [id number] [place] [id number] Jan, Type 2 diabetes mellitus with hyperglyce nadiya E11.65 ; Type 2 diabetes mellitus with other specified complication E11.69 ; Spinal stenosis, unspecified spinal region M48.00 and Essential hypertension I10 [facility] [place] [address] [id number] [place] [id number] Jan, Diabetic polyneuropathy associated with type 2 diabetes mellitus E11.42 [facility] [place] [address] [id number] [place] [id number] Dec, [facility] [place] [address] [id number] [place] [id number] Dec, Diabetic polyneuropathy associated with type 2 diabetes mellitus E11.42 ; Type 2 diabetes mellitus with other specified complication E11.69 ; Hyperlipidemia, unspecified E78.5 ; Thyroid disorder E07.9 and Thyroid disorder screening Z13.29 [facility] [place] [address] [id number] [place] [id number] Dec, Diabetic polyneuropathy associated with type 2 diabetes mellitus E11.42 [facility] [address] [facility] [id number] [place] [address] 17 Dec, 2016 Diabetic polyneuropathy asso ciated with type 2 diabetes mellitus E11.42 [facility] [place] [address] [id number] [place] [id number] Dec, Spinal stenosis, unspecified spinal joesph on M48.00 [facility] [place] [address] [id number] [place] [id number] Dec, [facility] [place] [address] [id number] [place] [id number] 18 Nov, 2016 Diabetic polyneuropathy associated with type 2 diabetes mellitus E11.42 [facility] [place] [address] [id number] [place] [id number] 15 Nov, 2016 Other chronic pain G89.29 [facility] [place] [address] [id number] [place] [id number] 14 Nov, 2016 Spinal stenosis, unspecified spinal joesph on M48.00 [facility] [place] [address] [id number] [place] [id number] Oct, Spinal stenosis, unspecified spinal joesph on M48.00 ; Essential hypertension I10 ; RLS (restless legs syndrome) G25.81 and Diabetic polyneuropathy associated with type 2 diabetes mellitus E11.42 [facility] [place] [address] [id number] [place] [id number] Oct, Spinal stenosis, unspecified spinal joesph on M48.00 [facility] [place] [address] [id number] [place] [id number] Sep, Diabetic polyneuropathy associated with type 2 diabetes mellitus E11.42 ; RLS (restless legs syndrome) G25.81 ; Spinal stenosis, unspecified spinal region M48.00 and Essential hypertension I10 [facility] [place] [address] [id number] [place] [id number] Sep, [facility] [place] [address] [id number] [place] [id number] Sep, Spinal stenosis, unspecified spinal joesph on M48.00 [facility] [place] [address] [id number] [place] [id number] Sep, [facility] [place] [address] [id number] [place] [id number] Aug, Spinal stenosis, unspecified spinal joesph on M48.00 [facility] [place] [address] [id number] [address] [address] July, [facility] [place] [address] [id number] [place] [id number] July, Spinal stenosis, unspecified spinal joesph on M48.00 [facility] [place] [address] [id number] [place] [id number] Jun, Type 2 diabetes mellitus with hyperglyce nadiya E11.65 [facility] [place] [address] [id number] [place] [id number] Jun, Spinal stenosis, unspecified spinal joesph on M48.00 [facility] [place] [address] [id number] [place] [id number] May, Spinal stenosis, unspecified spinal joesph on M48.00 [facility] [place] [address] [id number] [place] [id number] Apr, Spinal stenosis, unspecified spinal joesph on M48.00 [facility] [place] [address] [id number] [address] [place] [address] Mar, [facility] [place] [address] [id number] [place] [id number] Mar, Type 2 diabetes mellitus with hyperglyce nadiya E11.65 ; RLS (restless legs syndrome) G25.81 and Spinal stenosis, unspecified spinal region M48.00 [facility] [place] [address] [id number] [address] [place] [address] Mar, [facility] [place] [address] [id number] [place] [id number] Mar, [facility] [place] [address] [facility] [id number] [id number] Mar, [facility] [place] [address] [id number] [place] [id number] Feb, [facility] [address] [id number] [address] [place] [address] Feb, [facility] [place] [address] [id number] [place] [id number] Feb, [facility] [place] [address] [id number] [place] [id number] Feb, [facility] [address] [facility] [id number] [address] [place] [address] Feb, [facility] [place] [address] [id number] [address] [place] [address] Feb, [facility] [place] [address] [id number] [place] [id number] Jan, [facility] [place] [address] [id number] [place] [id number] Dec, Diabetic polyneuropathy associated with type 2 diabetes mellitus E11.42 ; Other chronic pain G89.29 ; Essential hypertension I10 and Encounter for immunization Z23 [facility] [place] [address] [id number] [place] [id number] Dec, [facility] [address] [facility] [id number] [address] [place] [address] Nov, [facility] [place] [address] [id number] [place] [id number] Nov, [facility] [place] [address] [id number] [place] [id number] Nov, Diabetes type 2, controlled E11.9 [facility] [place] [address] [id number] [place] [id number] 14 Nov, 2015 Diabetes type 2, controlled E11.9 ; Othe r chronic pain G89.29 ; Essential hypertension I10 ; Diabetic polyneuropathy associated with type 2 diabetes mellitus E11.42 and RLS (restless legs syndrome) G25.81 [facility] [address] [facility] [id number] [address] [place] [address] Nov, [facility] [place] [address] [id number] [place] [id number] Oct, [facility] [place] [address] [id number] [place] [id number] Oct, [facility] [place] [address] [id number] [place] [id number] Oct, [facility] [address] [facility] [id number] [address] [place] [address] Oct, [facility] [place] [address] [id number] [place] [id number] Sep, [facility] [place] [address] [id number] [place] [id number] Sep, [facility] [address] [facility] [id number] [address] [place] [address] Sep, Dental examination Z01.20 [facility] [address] [facility] [id number] [address] [place] [address] Aug, [facility] [place] [address] [id number] [place] [id number] Aug, [facility] [address] [facility] [id number] [address] [place] [address] Aug, [facility] [place] [address] [facility] [id number] [address] [place] [address] July, [facility] [place] [facility] [address] [facility] [id number] [address] [place] [address] July, [facility] [place] [address] [facility] [id number] [address] [place] [address] July, [facility] [place] [address] [id number] [place] [id number] July, [facility] [place] [address] [id number] [place] [id number] July, [facility] [place] [address] [id number] [place] [id number] July, [facility] [place] [address] [facility] [id number] [address] [place] [address] July, [facility] [place] [address] [id number] [place] [id number] Jun, Diabetes type 2, controlled E11.9 [facility] [place] [address] [id number] [place] [id number] Jun, [facility] [place] [address] [id number] [place] [id number] May, Diabetes type 1, uncontrolled E10.65 [facility] [place] [address] [id number] [place] [id number] May, [facility] [place] [address] [id number] [place] [id number] Apr, [facility] [place] [address] [id number] [place] [id number] Apr, [facility] [place] [address] [id number] [place] [id number] Mar, [facility] [place] [address] [id number] [place] [id number] Mar, [facility] [place] [address] [id number] [place] [id number] Mar, [facility] [place] [address] [id number] [place] [id number] Mar, Diabetes type 1, uncontrolled E10.65 [facility] [place] [address] [id number] [place] [id number] Feb, [facility] [place] [address] [id number] [place] [id number] Feb, [facility] [place] [address] [id number] [place] [id number] Feb, [facility] [place] [id number] [id number] [id number] Jan, [facility] [place] [address] [id number] [place] [id number] Jan, Dysuria R30.0 and Acute cystitis with he maturia N30.01 [facility] [place] [address] [id number] [place] [id number] Jan, [facility] [place] [address] [id number] [place] [id number] Dec, Gastroenteritis K52.9 and Headache, unsp ecified headache type R51 [facility] [place] [address] [id number] [place] [id number] Dec, [facility] [place] [address] [id number] [place] [id number] Dec, Chronic back pain 724.5 [facility] [address] [facility] [id number] [id number] Dec, [facility] [place] [address] [id number] [place] [id number] Nov, Chronic back pain 724.5 and Diabetes frank litus without mention of complication, type II or unspecified type, uncontrolled 250.02 [facility] [place] [address] [id number] [place] [id number] Nov, [facility] [place] [address] [id number] [place] [id number] Oct, [facility] [place] [address] [id number] [place] [id number] Sep, Diabetes mellitus without mention of com plication, type II or unspecified type, uncontrolled 250.02 and Urinary tract infection 599.0 [facility] [place] [address] [id number] [place] [id number] July, [facility] [address] [facility] [id number] [address] [place] [address], [place] [address] Jun, [facility] [address] [id number] [address] [place] [address] Jun, [facility] [place] [address] [facility] [id number] [place] [id number] May, [facility] [address] [facility] [id number] [address] [place] [address] May, [facility] [place] [address] [facility] [id number] [place] [id number] May, [facility] [address] [facility] [id number] [address] [place] [address] May, [facility] [place] [address] [facility] [id number] [place] [id number] Mar, [facility] [address] [facility] [id number] [address] [place] [address] Mar, [facility] [address] [facility] [id number] [address] [place] [address] Mar, [facility] [place] [address] [id number] [place] [id number] Mar, [facility] [place] [address] [facility] [id number] [place] [id number] Feb, [facility] [address] [facility] [id number] [address] [place] [address] Feb, [facility] [place] [address] [facility] [id number] [place] [id number] Feb, [facility] [address] [facility] [id number] [address] [place] [address] Feb, [facility] [address] [id number] [address] [place] [address], [place] [address] Feb, [facility] [place] [address] [id number] [place] [id number] Feb, [facility] [place] [address] [id number] [place] [id number] Feb, [facility] [address] [id number] [address] [place] [address], [place] [address] Feb, [facility] [address] [id number] [address] [place] [address], [place] [address] Feb, [facility] [place] [address] [id number] [place] [id number] Jan, [facility] [address] [id number] [address] [place] [address], [place] [address] Jan, [facility] [place] [address] [id number] [place] [id number] Jan, [facility] [address] [id number] [address] [place]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
--- OUTSIDE RECORDS SUMMARY | 2019-06-03 14:42 | XMS REPORT ---
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69 Active 95373188055821 Problem Reactive depression F32.9 Active 10577753 Problem Hypoglycemia E16.2 Active 4928669 03 Problem Moderate episode of recurrent major depressive disorder F33.1 Active 013807903 Problem Hyperlipidemia, unspecified E78.5 Ac tive 57190640 Problem Falling R29.6 Active 354421456 Problem Type 2 diabetes mellitus with hyperglycemia E11.65 Active 656627878946358 Problem meterman current use of insulin Z79.4 Active 321229331 Problem Type 2 diabetes mellitus with other diabetic kid rory complication E11.29 Active 44793922 Problem Unsteady gait R26.81 Active 616317 008 Problem Moderate episode of recurrent major depressive disorder F33.1 Active 486624262 ALLERGIES No Information ENCOUNTERS Encounter Location Date Diagnosis [address] [id number] [place] [address] Jun, [place] [address] [id number] [place] [address] May, [place] [address] [id number] [place] [address] 11 May, 2019 Laceration of right periocular area with out foreign body, initial encounter S01.111A and Essential hypertension I10 [facility] [address] [place] [address] [id number] [place] [address] May, [facility] [address] [place] [address] [id number] [place] [address] May, Spinal stenosis, unspecified spinal joesph on M48.00 [facility] [address] [place] [address] [id number] [place] [address] Apr, Type 2 diabetes mellitus with other spec ified complication E11.69 ; Essential hypertension I10 and Hyperlipidemia, unspecified E78.5 [facility] [address] [place] [address] [id number] [place] [address] Apr, Spinal stenosis, unspecified spinal joesph on M48.00 [facility] [address] [id number] [place] [address] Apr, [facility] [address] [place] [address] [id number] [facility] [address] Mar, Spinal stenosis, unspecified spinal joesph on M48.00 [facility] [place] [address] [id number] [place] [id number] Feb, Essential hypertension I10 ; Type 2 diab etes mellitus with hyperglycemia E11.65 ; Falling R29.6 and Spinal stenosis, unspecified spinal region M48.00 [facility] [place] [address] [id number] [place] [id number] Feb, Vertigo R42 and Laceration of right foot , initial encounter S91.311A [facility] [place] [address] [id number] [place] [id number] Jan, Essential hypertension I10 and Type 2 di abetes mellitus with hyperglycemia E11.65 [facility] [place] [address] [id number] [place] [id number] Jan, Spinal stenosis, unspecified spinal joesph on M48.00 [facility] [place] [address] [id number] [place] [id number] Jan, Essential hypertension I10 and Spinal st enosis, unspecified spinal region M48.00 [facility] [place] [address] [id number] [place] [id number] 08 Jan, 2019 [facility] [place] [address] [id number] [place] [id number] Jan, [facility] [place] [address] [id number] [place] [id number] Dec, Type 2 diabetes mellitus with other spec ified complication E11.69 and Other chronic pain G89.29 [facility] [address] [id number] [place] [id number] Dec, Spinal stenosis, unspecified spinal joesph on M48.00 [facility] [address] [facility] [id number] [address] [place] [address] 14 Dec, 2018 Type 2 diabetes mellitus wit h other diabetic kidney complication E11.29 [facility] [address] [id number] [place] [id number] 14 Dec, 2018 Type 2 diabetes mellitus with other diab etic kidney complication E11.29 ; Fatigue, unspecified type R53.83 ; Moderate episode of recurrent major depressive disorder F33.1 and Acute cystitis with hematuria N30.01 [facility] [address] [id number] [place] [id number] 08 Dec, 2018 [facility] [address] [facility] [id number] [address] [place] [address] 07 Dec, 2018 Injury of head, initial enco unter S09.90XA ; Unsteady gait R26.81 and Hyperglycemia R73.9 [facility] [address] [id number] [place] [id number] Nov, Spinal stenosis, unspecified spinal joesph on M48.00 [facility] [address] [id number] [place] [id number] 17 Nov, 2018 Type 2 diabetes mellitus with other diab etic kidney complication E11.29 and group home current use of insulin Z79.4 [facility] [place] [address] [id number] [place] [id number] Nov, Acute renal failure, unspecified acute r enal failure type N17.[address] [facility] [address] [id number] [place] [id number] Oct, Diabetic polyneuropathy associated with type 2 diabetes mellitus E11.42 ; Essential hypertension I10 ; Acute renal failure, unspecified acute renal failure type N17.9 and Spinal stenosis, unspecified spinal region M48.00 [facility] [place] [address] [id number] [place] [id number] Oct, Essential hypertension I10 ; Diabetic po lyneuropathy associated with type 2 diabetes mellitus E11.42 and Acute renal failure, unspecified acute renal failure type N17.[address] [facility] [address] [id number] [place] [id number] Oct, [facility] [place] [address] [id number] [place] [id number] Oct, [facility] [place] [address] [id number] [place] [id number] Oct, [facility] [place] [address] [id number] [place] [id number] Oct, Essential hypertension I10 ; Diabetic po lyneuropathy associated with type 2 diabetes mellitus E11.42 and Acute renal failure, unspecified acute renal failure type N17.9 [facility] [place] [address] [id number] [place] [id number] Oct, Spinal stenosis, unspecified spinal joesph on M48.00 [facility] [place] [address] [id number] [place] [id number] Sep, Spinal stenosis, unspecified spinal joesph on M48.00 [facility] [place] [address] [id number] [place] [id number] Sep, Type 2 diabetes mellitus with other spec ified complication E11.69 ; Vertigo R42 and Spinal stenosis, unspecified spinal region M48.00 [facility] [place] [address] [id number] [place] [id number] Sep, Spinal stenosis, unspecified spinal joesph on M48.00 [facility] [place] [address] [id number] [place] [id number] Sep, Spinal stenosis, unspecified spinal joesph on M48.00 [facility] [place] [address] [id number] [place] [id number] Aug, Spinal stenosis, unspecified spinal joesph on M48.00 [facility] [place] [address] [id number] [place] [id number] July, Diabetic polyneuropathy associated with type 2 diabetes mellitus E11.42 [facility] [place] [address] [id number] [place] [id number] July, Spinal stenosis, unspecified spinal joesph on M48.00 [facility] [place] [address] [id number] [place] [id number] July, Spinal stenosis, unspecified spinal joesph on M48.00 [facility] [place] [address] [id number] [place] [id number] Jun, Spinal stenosis, unspecified spinal joesph on M48.00 [facility] [place] [address] [id number] [place] [id number] Jun, Diabetic polyneuropathy associated with type 2 diabetes mellitus E11.42 [facility] [place] [address] [id number] [place] [id number] May, Diabetic polyneuropathy associated with type 2 diabetes mellitus E11.42 [facility] [place] [address] [id number] [place] [id number] May, [facility] [place] [address] [id number] [place] [id number] May, Spinal stenosis, unspecified spinal joesph on M48.00 [facility] [place] [address] [id number] [place] [id number] Apr, Spinal stenosis, unspecified spinal joesph on M48.[address] [facility] [address] [id number] [place] [id number] Apr, [facility] [address] [id number] [address] [place] [address] Apr, Puncture wound T14.8XXA ; Ab rasion T14.8XXA and Encounter for immunization Z23 [facility] [place] [address] [id number] [place] [id number] Mar, Spinal stenosis, unspecified spinal joesph on M48.00 [facility] [place] [address] [id number] [place] [id number] Feb, Spinal stenosis, unspecified spinal joesph on M48.00 [facility] [place] [address] [id number] [place] [id number] Jan, Type 2 diabetes mellitus with hyperglyce nadiya E11.65 ; Diabetes type 2, controlled E11.9 ; Spinal stenosis, unspecified spinal region M48.00 and Encounter for immunization Z23 [facility] [address] [id number] [address] [place] [address] Dec, Spinal stenosis, unspecified spinal region M48.00 [facility] [address] [id number] [address] [place] [address] Dec, [facility] [address] [id number] [address] [place] [address] Dec, [facility] [address] [id number] [address] [place] [address] Dec, [facility] [place] [address] [id number] [place] [id number] Nov, [facility] [place] [address] [id number] [place] [id number] Nov, Spinal stenosis, unspecified spinal joesph on M48.00 [facility] [place] [address] [id number] [place] [id number] Oct, Spinal stenosis, unspecified spinal joesph on M48.00 [facility] [place] [address] [id number] [place] [id number] Oct, Spinal stenosis, unspecified spinal joesph on M48.00 [facility] [place] [address] [id number] [place] [id number] Oct, [facility] [place] [address] [id number] [place] [id number] Oct, Diabetic polyneuropathy associated with type 2 diabetes mellitus E11.42 ; RLS (restless legs syndrome) G25.81 ; Spinal stenosis, unspecified spinal region M48.00 and Acute cystitis with hematuria N30.01 [facility] [place] [address] [id number] [place] [id number] Oct, [facility] [place] [address] [id number] [place] [id number] Oct, Spinal stenosis, unspecified spinal joesph on M48.00 [facility] [place] [address] [id number] [place] [id number] Sep, Diabetic polyneuropathy associated with type 2 diabetes mellitus E11.42 [facility] [address] [id number] [address] [place] [address] Sep, [facility] [place] [address] [id number] [place] [id number] Sep, Spinal stenosis, unspecified spinal joesph on M48.00 [facility] [address] [id number] [address] [place] [address] Aug, [facility] [place] [address] [id number] [place] [id number] Aug, Spinal stenosis, unspecified spinal joesph on M48.00 [facility] [place] [address] [id number] [place] [id number] Aug, Spinal stenosis, unspecified spinal joesph on M48.00 [facility] [place] [address] [id number] [place] [id number] July, [facility] [place] [address] [id number] [place] [id number] July, Diabetic polyneuropathy associated with type 2 diabetes mellitus E11.42 ; Type 2 diabetes mellitus with hyperglycemia E11.65 ; RLS (restless legs syndrome) G25.81 and Essential hypertension I10 [facility] [place] [address] [id number] [place] [id number] July, Spinal stenosis, unspecified spinal joesph on M48.00 [facility] [place] [address] [id number] [place] [id number] July, [facility] [place] [address] [id number] [place] [id number] Jun, Type 2 diabetes mellitus with other spec ified complication E11.69 [facility] [place] [address] [id number] [place] [id number] Jun, Spinal stenosis, unspecified spinal joesph on M48.00 [facility] [place] [address] [id number] [place] [id number] Jun, Hypoglycemia E16.2 [facility] [place] [address] [id number] [place] [id number] May, Hypoglycemia E16.2 ; Acute cystitis with hematuria N30.01 and Essential hypertension I10 [facility] [address] [facility] [id number] [address] [place] [address] May, [facility] [place] [address] [id number] [place] [id number] May, Spinal stenosis, unspecified spinal joesph on M48.00 [facility] [place] [address] [id number] [place] [id number] May, Reactive depression F32.9 [facility] [place] [address] [id number] [place] [id number] May, [facility] [place] [address] [id number] [place] [id number] Apr, [facility] [address] [id number] [place] [id number] Apr, [facility] [address] [id number] [place] [id number] Apr, [facility] [place] [address] [id number] [place] [id number] Apr, [facility] [place] [address] [id number] [place] [id number] Apr, Spinal stenosis, unspecified spinal joesph on M48.00 [facility] [place] [address] [id number] [place] [id number] 08 Apr, 2017 Type 2 diabetes mellitus with other spec ified complication E11.69 ; Spinal stenosis, unspecified spinal region M48.00 ; Reactive depression F32.9 and Essential hypertension I10 [facility] [place] [address] [facility] [address] [id number] [place] [id number] 07 Apr, 2017 [facility] [place] [address] [id number] [place] [id number] Mar, Spinal stenosis, unspecified spinal joesph on M48.00 [facility] [place] [address] [id number] [place] [id number] Feb, Acute non-recurrent maxillary sinusitis J01.00 and Essential hypertension I10 [facility] [place] [address] [id number] [place] [id number] Feb, Spinal stenosis, unspecified spinal joesph on M48.00 [facility] [place] [address] [id number] [place] [id number] Feb, Type 2 diabetes mellitus with other spec ified complication E11.69 [facility] [place] [address] [id number] [place] [id number] Feb, Type 2 diabetes mellitus with other spec ified complication E11.69 and Essential hypertension I10 [facility] [place] [address] [id number] [place] [id number] Feb, [facility] [place] [address] [id number] [place] [id number] Feb, [facility] [place] [address] [id number] [place] [id number] Jan, Spinal stenosis, unspecified spinal joesph on M48.00 [facility] [place] [address] [id number] [place] [id number] Jan, Diabetic polyneuropathy associated with type 2 diabetes mellitus E11.42 [facility] [place] [address] [id number] [place] [id number] 14 Jan, 2017 Diabetic polyneuropathy associated with type 2 diabetes mellitus E11.42 [facility] [place] [address] [id number] [place] [id number] Jan, Type 2 diabetes mellitus with hyperglyce nadiya E11.65 ; Type 2 diabetes mellitus with other specified complication E11.69 ; Spinal stenosis, unspecified spinal region M48.00 and Essential hypertension I10 [facility] [place] [address] [id number] [place] [id number] Jan, Diabetic polyneuropathy associated with type 2 diabetes mellitus E11.42 [facility] [place] [address] [id number] [place] [id number] Dec, [facility] [place] [address] [id number] [place] [id number] Dec, Diabetic polyneuropathy associated with type 2 diabetes mellitus E11.42 ; Type 2 diabetes mellitus with other specified complication E11.69 ; Hyperlipidemia, unspecified E78.5 ; Thyroid disorder E07.9 and Thyroid disorder screening Z13.29 [facility] [place] [address] [id number] [place] [id number] Dec, Diabetic polyneuropathy associated with type 2 diabetes mellitus E11.42 [facility] [address] [facility] [id number] [address] [place] [address] 17 Dec, 2016 Diabetic polyneuropathy asso ciated with type 2 diabetes mellitus E11.42 [facility] [place] [address] [id number] [place] [id number] Dec, Spinal stenosis, unspecified spinal joesph on M48.00 [facility] [place] [address] [id number] [place] [id number] Dec, [facility] [place] [address] [id number] [place] [id number] 18 Nov, 2016 Diabetic polyneuropathy associated with type 2 diabetes mellitus E11.42 [facility] [place] [address] [id number] [place] [id number] 15 Nov, 2016 Other chronic pain G89.29 [facility] [place] [address] [id number] [place] [id number] 14 Nov, 2016 Spinal stenosis, unspecified spinal joesph on M48.00 [facility] [place] [address] [id number] [place] [id number] Oct, Spinal stenosis, unspecified spinal joesph on M48.00 ; Essential hypertension I10 ; RLS (restless legs syndrome) G25.81 and Diabetic polyneuropathy associated with type 2 diabetes mellitus E11.42 [facility] [place] [address] [id number] [place] [id number] Oct, Spinal stenosis, unspecified spinal joesph on M48.00 [facility] [place] [address] [id number] [place] [id number] Sep, Diabetic polyneuropathy associated with type 2 diabetes mellitus E11.42 ; RLS (restless legs syndrome) G25.81 ; Spinal stenosis, unspecified spinal region M48.00 and Essential hypertension I10 [facility] [place] [address] [id number] [place] [id number] Sep, [facility] [place] [address] [id number] [place] [id number] Sep, Spinal stenosis, unspecified spinal joesph on M48.00 [facility] [place] [address] [id number] [place] [id number] Sep, [facility] [place] [address] [id number] [place] [id number] Aug, Spinal stenosis, unspecified spinal joesph on M48.00 [facility] [address] [id number] [address] [place] [address] July, [facility] [place] [address] [id number] [place] [id number] July, Spinal stenosis, unspecified spinal joesph on M48.00 [facility] [place] [address] [id number] [place] [id number] Jun, Type 2 diabetes mellitus with hyperglyce nadiya E11.65 [facility] [place] [address] [id number] [place] [id number] Jun, Spinal stenosis, unspecified spinal joesph on M48.00 [facility] [place] [address] [id number] [place] [id number] May, Spinal stenosis, unspecified spinal joesph on M48.00 [facility] [place] [address] [id number] [place] [id number] Apr, Spinal stenosis, unspecified spinal joesph on M48.00 [facility] [address] [id number] [address] [place] [address] Mar, [facility] [place] [address] [id number] [place] [id number] Mar, Type 2 diabetes mellitus with hyperglyce nadiya E11.65 ; RLS (restless legs syndrome) G25.81 and Spinal stenosis, unspecified spinal region M48.00 [facility] [address] [id number] [address] [place] [address] Mar, [facility] [place] [address] [id number] [place] [id number] Mar, [facility] [place] [address] [facility] [address] [id number] [id number] Mar, [facility] [place] [address] [id number] [place] [id number] Feb, [facility] [address] [id number] [address] [place] [address] Feb, [facility] [place] [address] [id number] [place] [id number] Feb, [facility] [place] [address] [id number] [place] [id number] Feb, [facility] [address] [facility] [id number] [address] [place] [address] Feb, [facility] [address] [id number] [address] [place] [address] Feb, [facility] [place] [address] [id number] [place] [id number] Jan, [facility] [place] [address] [id number] [place] [id number] Dec, Diabetic polyneuropathy associated with type 2 diabetes mellitus E11.42 ; Other chronic pain G89.29 ; Essential hypertension I10 and Encounter for immunization Z23 [facility] [place] [address] [id number] [place] [id number] Dec, [facility] [address] [facility] [id number] [address] [place] [address] Nov, [facility] [place] [address] [id number] [place] [id number] Nov, [facility] [place] [address] [id number] [place] [id number] Nov, Diabetes type 2, controlled E11.9 [facility] [place] [address] [id number] [place] [id number] 14 Nov, 2015 Diabetes type 2, controlled E11.9 ; Othe r chronic pain G89.29 ; Essential hypertension I10 ; Diabetic polyneuropathy associated with type 2 diabetes mellitus E11.42 and RLS (restless legs syndrome) G25.81 [facility] [address] [facility] [id number] [address] [place] [address] Nov, [facility] [place] [address] [id number] [place] [id number] Oct, [facility] [place] [address] [id number] [place] [id number] Oct, [facility] [place] [address] [id number] [place] [id number] Oct, [facility] [address] [facility] [id number] [address] [place] [address] Oct, [facility] [place] [address] [id number] [place] [id number] Sep, [facility] [place] [address] [id number] [place] [id number] Sep, [facility] [address] [facility] [id number] [address] [place] [address] Sep, Dental examination Z01.20 [facility] [address] [facility] [id number] [address] [place] [address] Aug, [facility] [place] [address] [id number] [place] [id number] Aug, [facility] [address] [facility] [id number] [address] [place] [address] Aug, [facility] [address] [facility] [id number] [address] [place] [address] July, [facility] [place] [facility] [address] [facility] [id number] [address] [place] [address] July, [facility] [address] [facility] [id number] [address] [place] [address] July, [facility] [place] [address] [id number] [place] [id number] July, [facility] [place] [address] [id number] [place] [id number] July, [facility] [place] [address] [id number] [place] [id number] July, [facility] [address] [facility] [id number] [address] [place] [address] July, [facility] [place] [address] [id number] [place] [id number] Jun, Diabetes type 2, controlled E11.9 [facility] [place] [address] [id number] [place] [id number] Jun, [facility] [place] [address] [id number] [place] [id number] May, Diabetes type 1, uncontrolled E10.65 [facility] [place] [address] [id number] [place] [id number] May, [facility] [place] [address] [id number] [place] [id number] Apr, [facility] [place] [address] [id number] [place] [id number] Apr, [facility] [place] [address] [id number] [place] [id number] Mar, [facility] [place] [address] [id number] [place] [id number] Mar, [facility] [place] [address] [id number] [place] [id number] Mar, [facility] [place] [address] [id number] [place] [id number] Mar, Diabetes type 1, uncontrolled E10.65 [facility] [place] [address] [id number] [place] [id number] Feb, [facility] [place] [address] [id number] [place] [id number] Feb, [facility] [place] [address] [id number] [place] [id number] Feb, [facility] [place] [id number] [id number] [id number] Jan, [facility] [place] [address] [id number] [place] [id number] Jan, Dysuria R30.0 and Acute cystitis with he maturia N30.01 [facility] [place] [address] [address] [id number] [place] [id number] Jan, [facility] [place] [address] [id number] [place] [id number] Dec, Gastroenteritis K52.9 and Headache, unsp ecified headache type R51 [facility] [place] [address] [id number] [place] [id number] Dec, [facility] [place] [address] [id number] [place] [id number] Dec, Chronic back pain 724.5 [facility] [address] [facility] [id number] [id number] Dec, [facility] [place] [address] [id number] [place] [id number] Nov, Chronic back pain 724.5 and Diabetes frank litus without mention of complication, type II or unspecified type, uncontrolled 250.02 [facility] [place] [place] [address] [id number] [place] [id number] Nov, [facility] [place] [address] [id number] [place] [id number] Oct, [facility] [place] [address] [id number] [place] [id number] Sep, Diabetes mellitus without mention of com plication, type II or unspecified type, uncontrolled 250.02 and Urinary tract infection 599.0 [facility] [place] [address] [id number] [place] [id number] July, [facility] [address] [facility] [id number] [address] [place] [address], [place] [address] Jun, [facility] [address] [id number] [address] [place] [address] Jun, [facility] [place] [address] [facility] [id number] [place] [id number] May, [facility] [address] [facility] [id number] [address] [place] [address] May, [facility] [place] [address] [facility] [id number] [place] [id number] May, [facility] [address] [facility] [id number] [address] [place] [address] May, [facility] [place] [address] [facility] [id number] [place] [id number] Mar, [facility] [address] [facility] [id number] [address] [place] [address] Mar, [facility] [address] [facility] [id number] [address] [place] [address] Mar, [facility] [place] [address] [id number] [place] [id number] Mar, [facility] [place] [address] [facility] [id number] [place] [id number] Feb, [facility] [address] [facility] [id number] [address] [place] [address] Feb, [facility] [place] [address] [facility] [id number] [place] [id number] Feb, [facility] [address] [facility] [id number] [address] [place] [address] Feb, [facility] [address] [id number] [address] [place] [address], [place] [address] Feb, [facility] [place] [address] [id number] [place] [id number] Feb, [facility] [place] [address] [id number] [place] [id number] Feb, [facility] [address] [id number] [address] [place] [address], [place] [address] Feb, [facility] [address] [id number] [address] [place] [address], [place] [address] Feb, [facility] [place] [address] [id number] [place] [id number] Jan, [facility] [address] [id number] [address] [place] [address], [place] [address] Jan, [facility] [place] [address] [id number] [place] [id number] Jan, [facility] [address] [id number] [address] [place] [address], [place] [address] Jan, [facility] [place] [address] [id number] [place] [id number] Dec, [facility] [address] [id number] [address] [place] [address] Dec, [facility] [address] [facility] [id number] [address] [place] [address] Dec, [facility] [address] [id number] [address] [place] [address] Dec, [facility] [place] [address] [id number] [place] [id number] Dec, [facility] [address] [id number] [address] [place] [address], [place] [address] Dec, [facility] [place] [address] [id number] [place] [id number] Nov, [facility] [address] [id number] [address] [place] [address], [place] [address] Nov, [facility] [place] [address] [id number] [place] [id number] Oct, [facility] [address] [id number] [address] [place] [address], [place] [address] Oct, [facility] [address] [id number] [address] [place] [address], [place] [address] Sep, [facility] [place] [address] [id number] [place] [id number] Sep, [facility] [place] [address] [id number] [place] [id number] Aug, [facility] [address] [id number] [address] [place] [address], [place] [address] Aug, [facility] [place] [address] [id number] [place] [id number] July, [facility] [address] [id number] [address] [place] [address], [place] [address] July, [facility] [place] [address] [id number] [place] [id number] July, [facility] [address] [id number] [address] [place] [address], [place] [address] July, [facility] [address] [id number] [address] [place] [address], [place] [address] July, [facility] [address] [id number] [address] [place] [address] Jun, [facility] [place] [address] [id number] [place] [id number] Jun, [facility] [place] [address] [id number] [place] [id number] Jun, [facility] [address] [id number] [address] [place] [address], [place] [address] Jun, [facility] [address] [id number] [address] [place] [address], [place] [address] Jun, [facility] [address] [id number] [address] [place] [address], [place] [address] May, [facility] [place] [address] [id number] [place] [id number] Apr, [facility] [address] [id number] [address] [place] [address], [place] [address] Apr, [facility] [place] [address] [id number] [place] [id number] Apr, [facility] [address] [id number] [address] [place] [address], [place] [address] Apr, [facility] [address] [id number] [address] [place] [address], [place] [address] Mar, [facility] [address] [id number] [address] [place] [address], [place] [address] Mar, [facility] [address] [id number] [address] [place] [address], [place] [address] Mar, [facility] [place] [address] [id number] [place] [id number] Mar, [facility] [address] [id number] [address] [place] [address], [place] [address] Mar, [facility] [address] [id number] [address] [place] [address], [place] [address] Mar, [facility] [address] [id number] [address] [place] [address], [place] [address] Feb, [facility] [place] [address] [id number] [place] [id number] Feb, [facility] [address] [id number] [address] [place] [address], [place] [address] Feb, [facility] [place] [address] [id number] [place] [id number] Feb, [facility] [address] [id number] [address] [place] [address], [place] [address] Feb, [facility] [place] [address] [id number] [place] [id number] Feb, [facility] [address] [id number] [address] [place] [address] Feb, [facility] [place] [address] [id number] [place] [id number] Jan, [facility] [address] [facility] [id number] [address] [place] [address] Jan, [facility] [address] [facility] [id number] [address] [place] [address] Dec, [facility] [place] [address] [id number] [place] [id number] Dec, [facility] [address] [facility] [id number] [address] [place] [address] Nov, [facility] [place] [address] [id number] [place] [id number] Oct, [facility] [place] [address] [id number] [place] [id number] Oct, [facility] [place] [address] [id number] [place] [id number] Sep, [facility] [address] [facility] [id number] [address] [place] [address] Sep, [facility] [place] [address] [id number] [place] [id number] Sep, [facility] [place] [address] [id number] [place] [id number] Sep, [facility] [place] [address] [id number] [place] [id number] Sep, [facility] [place] [address] [id number] [place] [id number] Sep, [facility] [place] [address] [id number] [place] [id number] Sep, [facility] [address] [facility] [id number] [address] [place] [address] Aug, [facility] [place] [address] [id number] [place] [id number] Aug, [facility] [address] [id number] [address] [place] [address], [place] [address] July, [facility] [place] [address] [id number] [place] [id number] July, [facility] [address] [facility] [id number] [address] [place] [address] July, [facility] [place] [address] [id number] [place] [id number] Jun, [facility] [place] [address] [id number] [place] [id number] Jun, [facility] [place] [address] [id number] [place] [id number] Jun, [facility] [address] [facility] [id number] [address] [place] [address], [place] [address] Jun, [facility] [place] [address] [id number] [place] [id number] May, [facility] [place] [address] [id number] [place] [id number] May, [facility] [address] [id number] [address] [place] [address], [place] [address] May, [facility] [place] [address] [id number] [place] [id number] Apr, [facility] [address] [id number] [address] [place] [address] Apr, [facility] [place] [address] [id number] [place] [id number] Apr, [facility] [place] [address] [id number] [place] [id number] Apr, [facility] [address] [id number] [address] [place] [address] Mar, [facility] [place] [address] [id number] [place] [id number] Mar, [facility] [place] [address] [id number] [place] [id number] Mar, [facility] [place] [address] [id number] [place] [id number] Feb, [facility] [address] [facility] [id number] [address] [place] [address] Feb, [facility] [place] [address] [id number] [place] [id number] Jan, [facility] [place] [address] [id number] [place] [id number] Jan, [facility] [address] [facility] [id number] [address] [place] [address] Jan, [facility] [address] [facility] [id number] [address] [place] [address] Jan, [facility] [place] [address] [id number] [place] [id number] Jan, [facility] [address] [facility] [id number] [address] [place] [address] Jan, [facility] [place] [address] [id number] [place] [id number] Dec, [facility] [address] [facility] [id number] [address] [place] [address] Dec, [facility] [place] [address] [id number] [place] [id number] Dec, [facility] [address] [id number] [address] [place] [address] Dec, [facility] [place] [address] [id number] [place] [id number] Dec, [facility] [place] [address] [id number] [place] [id number] Nov, [facility] [place] [address] [id number] [place] [id number] Nov, [facility] [place] [address] [id number] [place] [id number] Oct, [facility] [place] [address] [id number] [place] [id number] Oct, [facility] [place] [address] [id number] [place] [id number] Sep, [facility] [place] [address] [id number] [place] [id number] Sep, [facility] [place] [address] [id number] [place] [id number] Sep, [facility] [place] [address] [id number] [place] [id number] Aug, [facility] [place] [address] [id number] [place] [id number] Aug, [facility] [place] [address] [id number] [place] [id number] July, [facility] [place] [address] [id number] [place] [id number] July, [facility] [place] [address] [id number] [place] [id number] July, [facility] [place] [address] [id number] [place] [id number] July, [facility] [address] [facility] [id number] [address] [place] [address], [place] [address] Jun, [facility] [place] [address] [id number] [place] [id number] Jun, [facility] [place] [address] [id number] [place] [id number] Jun, [facility] [place] [address] [id number] [place] [id number] Jun, [facility] [place] [address] [id number] [place] [id number] May, [facility] [place] [address] [id number] [place] [id number] May, [facility] [place] [address] [id number] [place] [id number] Apr, [facility] [place] [address] [id number] [place] [id number] Apr, [facility] [place] [address] [id number] [place] [id number] Apr, [facility] [place] [address] [id number] [place] [id number] Apr, [facility] [place] [address] [id number] [place] [id number] Apr, [facility] [address] [id number] [address] [place] [address] Apr, [facility] [place] [address] [id number] [place] [id number] Apr, [facility] [place] [address] [id number] [place] [id number] Apr, [facility] [place] [address] [id number] [place] [id number] Mar, [facility] [address] [facility] [id number] [address] [place] [address] Feb, [facility] [address] [id number] [address] [place] [address] Feb, [facility] [address] [facility] [id number] [address] [place] [address] Feb, [facility] [address] [facility] [id number] [address] [place] [address] Feb, [facility] [address] [facility] [id number] [address] [place] [address] Jan, [facility] [address] [facility] [id number] [address] [place] [address] Jan, [facility] [address] [facility] [id number] [address] [place] [address] Jan, [facility] [address] [facility] [id number] [address] [place] [address] Dec, [facility] [address] [facility] [id number] [address] [place] [address] Dec, [facility] [address] [id number] [address] [place] [address], [place] [address] 17 Aug, 2010 [facility] [address] [id number] [address] [place] [address], [place] [address] Aug, [facility] [address] [id number] [address] [place] [address], [place] [address] 30 Feb, 2010 [facility] [address] [id number] [address] [place] [address], [place] [address] Feb, [facility] [address] [id number] [address] [place] [address], [place] [address] Jan, [facility] [address] [id number] [address] [place] [address], [place] [address] Jan, [facility] [address] [id number] [address] [place] [address], [place] [address] Dec, [facility] [address] [id number] [address] [place] [address], [place] [address] Dec, [facility] [address] [id number] [address] [place] [address], [place] [address] Dec, [facility] [address] [id number] [address] [place] [address], [place] [address] May, [facility] [address] [id number] [address] [place] [address], [place] [address] Mar, [facility] [address] [id number] [address] [place] [address], [place] [address] Feb, [facility] [address] [id number] [address] [place] [address], [place] [address] Feb, [facility] [address] [id number] [address] [place] [address], [place] [address] Feb, [facility] [address] [id number] [address] [place] [address], [place] [address] Jan, [facility] [address] [id number] [place] [address] Jan, [facility] [address] [facility] [id number] [address] [place] [address] Oct, [facility] [address] [facility] [id number] [address] [place] [address] July, [facility] [address] [facility] [id number] [address] [place] [address] Apr, [facility] [address] [facility] [id number] [address] [place] [id number] Jan, [facility] [address] [facility] [id number] [address] [place] [id number] Jan, IMMUNIZATIONS No Known Immunizations SOCIAL HISTORY Never Assessed REASON FOR VISIT PLAN OF CARE VITAL SIGNS Height 64 in 2013-03-16 Weight 159 lbs 2013-03-16 Temperature 98.9 degrees Fahrenheit 2013-03-16 Heart Rate 92 bpm 2013-03-16 Respiratory Rate 16 2013-03-16 Blood pressure systolic 130 mmHg 2013-03-16 Blood pressure diastolic 90 mmHg 2013-03-16 MEDICATIONS Unknown Medications RESULTS No Results PROCEDURES Procedure Date Ordered Result Body Site X-RAY EXAM OF LOWER LEG Mar 16, 2013 INSTRUCTIONS MEDICATIONS ADMINISTERED No Known Medications MEDICAL [...] 18 Hospitalization History surgeries, childbirth Hospitalization History [facility] [place]- Possible Stroke Hospitalization History Hospital stay due to acute renal didier lure 10/2018
--- OUTSIDE RECORDS SUMMARY | 2019-06-03 14:43 | XMS REPORT ---
Author Author Emelyn Lira Organization [facility] Address [address] [place] [address] Care Team Providers Care Director Funeral Name Role Phone [place] Lira Unavailable PROBLEMS Type Condition ICD9-CM Code YOR78-KC Code Onset Dates Condition S tatus SNOMED Code Problem Essential hypertension I10 Active 94028149 Problem RLS (restless legs syndrome) G25.81 A ctive 23993606 Problem Other chronic pain G89.29 Active 8 0862363 Problem Diabetic polyneuropathy associated with type 2 d iabetes mellitus E11.42 Active 93762880 Problem Spinal stenosis, unspecified spinal region M48.00 Active 07665746 Problem Encounter for immunization Z23 Act nicole 645868596 Problem Type 2 diabetes mellitus with other specified complication E11.69 Active 26815143968804 Problem Reactive depression F32.9 Active 35234124 Problem Hypoglycemia E16.2 Active 2512392 03 Problem Moderate episode of recurrent major depressive disorder F33.1 Active 890409091 Problem Hyperlipidemia, unspecified E78.5 Ac tive 76215170 Problem Falling R29.6 Active 440370510 Problem Type 2 diabetes mellitus with hyperglycemia E11.65 Active 406453614814062 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 Active 283291670 Problem Type 2 diabetes mellitus with other diabetic kid rory complication E11.29 Active 95256510 Problem Unsteady gait R26.81 Active 051873 008 Problem Moderate episode of recurrent major depressive disorder F33.1 Active 396598048 ALLERGIES No Information ENCOUNTERS Encounter Location Date Diagnosis [address] [address] 0 6 Jun, [address] [address] 2 3 May, [address] [address] 1 1 May, 2019 Laceration of right periocular area without foreign body, initial encounter S01.111A and Essential hypertension I10 [facility] [address] [place] [address] [place] [address] 1 1 May, 2019 [facility] [address] [place] [address] [address] [place] [address] 0 9 May, 2019 Spinal stenosis, unspecified spinal region M48.00 [facility] [address] [place] [address] [address] [place] [address] 2 6 Apr, 2019 Type 2 diabetes mellitus with other specified complication E11.69 ; Essential hypertension I10 and Hyperlipidemia, unspecified E78.5 [facility] [address] [place] [address], [place] [address] 1 1 Apr, 2019 Spinal stenosis, unspecified spinal region M48.00 [facility] [address] [facility] [place] [address] 04 Apr, 2019 [facility] [address] [place] [address] 1 5 Mar, 2019 Spinal stenosis, unspecified spinal region M48.00 [place] [id number] [place] [address] [id number] Feb, Essential hypertension I10 ; Type 2 diabetes mellitus with hyperglycemia E11.65 ; Falling R29.6 and Spinal stenosis, unspecified spinal region M48.00 [place] [id number] [place] [address] [id number] Feb, Vertigo R42 and Laceration of right foot, initial encounter S91.311A [facility] [address] [id number] Jan, Essential hypertension I10 and Type 2 diabetes mellitus with hyperglycemia E11.65 [facility] [address] [id number] Jan, Spinal stenosis, unspecified spinal region M48.[address] [id number] Jan, Essential hypertension I10 and Spinal stenosis, unspecified spinal region M48.00 [place] [id number] [place] [address] [id number] Jan, [address] [id number] Jan, [address] [id number] Dec, Type 2 diabetes mellitus with other specified complication E11.69 and Other chronic pain G89.29 [address] [id number] Dec, Spinal stenosis, unspecified spinal region M48.00 [facility] [address] [facility] [place] [address] 14 Dec, 2018 Type 2 diabetes mellitus with other diab etic kidney complication E11.[address] [id number] Dec, Type 2 diabetes mellitus with other diabetic kidney complication E11.29 ; Fatigue, unspecified type R53.83 ; Moderate episode of recurrent major depressive disorder F33.1 and Acute cystitis with hematuria N30.[address] [id number] 08 Dec, 2018 [facility] [address] [facility] [id number] 100[address] [place] [address] 07 Dec, 2018 Injury of head, initial enco unter S09.90XA ; Unsteady gait R26.81 and Hyperglycemia R73.9 [place] [address] [id number] Nov, Spinal stenosis, unspecified spinal region M48.00 [place] [address] [id number] 17 Nov, 2018 Type 2 diabetes mellitus with other diabetic kidney complication E11.29 and [facility] current use of insulin Z79.4 [address] [id number] Nov, Acute renal failure, unspecified acute renal failure type N17.9 [facility] [address] [facility] [address] [id number] [place] [id number] Oct, Diabetic polyneuropathy associated with type 2 diabetes mellitus E11.42 ; Essential hypertension I10 ; Acute renal failure, unspecified acute renal failure type N17.9 and Spinal stenosis, unspecified spinal region M48.00 [facility] [address] [place] [id number] [place] [id number] Oct, Essential hypertension I10 ; Diabetic polyneuropathy associated with type 2 diabetes mellitus E11.42 and Acute renal failure, unspecified acute renal failure type N17.9 [facility] [address] [facility] [address] [id number] [facility] [id number] Oct, [facility] [address] [place] [id number] [place] [address], [place] [id number] Oct, [facility] [address], [place] [id number] Oct, [facility] [place] [address], [place] [id number] Oct, Essential hypertension I10 ; Diabetic polyneuropathy associated with type 2 diabetes mellitus E11.42 and Acute renal failure, unspecified acute renal failure type N17.9 [facility] [address] [place] [id number] [place] [address], [place] [id number] Oct, Spinal stenosis, unspecified spinal region M48.00 [facility] [address], [place] [id number] Sep, Spinal stenosis, unspecified spinal region M48.00 [facility] [place] [address], [place] [id number] Sep, Type 2 diabetes mellitus with other specified complication E11.69 ; Vertigo R42 and Spinal stenosis, unspecified spinal region M48.00 [facility] [place] [address], [place] [id number] Sep, Spinal stenosis, unspecified spinal region M48.00 [facility] [address], [place] [id number] Sep, Spinal stenosis, unspecified spinal region M48.00 [facility] [place] [address], [place] [id number] Aug, Spinal stenosis, unspecified spinal region M48.00 [facility] [address], [place] [id number] July, Diabetic polyneuropathy associated with type 2 diabetes mellitus E11.42 [facility] [place] [address], [place] [id number] July, Spinal stenosis, unspecified spinal region M48.00 [facility] [place] [address] [facility] [id number] July, Spinal stenosis, unspecified spinal region M48.00 [facility] [place] [address] [facility] [place] [address] [id number] Jun, Spinal stenosis, unspecified spinal region M48.00 [facility] [place] [address] [place] [address] [id number] Jun, Diabetic polyneuropathy associated with type 2 diabetes mellitus E11.42 [facility] [address] [place] [address] [id number] May, Diabetic polyneuropathy associated with type 2 diabetes mellitus E11.42 [facility] [place] [id number] [place] [address] [id number] May, [facility] [place] [id number] [place] [address] [id number] May, Spinal stenosis, unspecified spinal region M48.00 [facility] [address] [place] [address] [id number] Apr, Spinal stenosis, unspecified spinal region M48.00 [facility] [address] [facility] [address] [id number] [place] [id number] Apr, [facility] [address] [facility] [id number] [address] [place] [address] Apr, Puncture wound T14.8XXA ; Ab rasion T14.8XXA and Encounter for immunization Z23 [facility] [address] [place] [address] [id number] Mar, Spinal stenosis, unspecified spinal region M48.00 [facility] [address] [id number] Feb, Spinal stenosis, unspecified spinal region M48.00 [facility] [address] [id number] Jan, Type 2 diabetes mellitus with hyperglycemia E11.65 ; Diabetes type 2, controlled E11.9 ; Spinal stenosis, unspecified spinal region M48.00 and Encounter for immunization Z23 [facility] [address] [address] Dec, Spinal stenosis, unspecified spinal joesph on M48.00 [facility] [address] [address] Dec, [facility] [address] [address] Dec, [facility] [address] [address] Dec, [facility] [address] [id number] Nov, [address] [id number] Nov, Spinal stenosis, unspecified spinal region M48.[address] [id number] Oct, Spinal stenosis, unspecified spinal region M48.00 [facility] [address] [id number] Oct, Spinal stenosis, unspecified spinal region M48.[address] [id number] Oct, [address] [id number] Oct, Diabetic polyneuropathy associated with type 2 diabetes mellitus E11.42 ; RLS (restless legs syndrome) G25.81 ; Spinal stenosis, unspecified spinal region M48.00 and Acute cystitis with hematuria N30.01 [facility] [address] [id number] Oct, [facility] [address] [id number] Oct, Spinal stenosis, unspecified spinal region M48.[address] [id number] Sep, Diabetic polyneuropathy associated with type 2 diabetes mellitus E11.42 [facility] [address] [address] Sep, [facility] [address] [facility] [address] Sep, Spinal stenosis, unspecified spinal region M48.00 [facility] [address] [facility] [place] [address] Aug, [facility] [address] [facility] [place] [address] [id number] Aug, Spinal stenosis, unspecified spinal region M48.00 [facility] [place] [address] [id number] Aug, Spinal stenosis, unspecified spinal region M48.00 [facility] [place] [address] [id number] July, [facility] [place] [address] [id number] July, Diabetic polyneuropathy associated with type 2 diabetes mellitus E11.42 ; Type 2 diabetes mellitus with hyperglycemia E11.65 ; RLS (restless legs syndrome) G25.81 and Essential hypertension I10 [facility] [place] [address] [place] [id number] [place] [address] [id number] July, Spinal stenosis, unspecified spinal region M48.00 [facility] [place] [address] [place] [id number] [place] [address] [id number] July, [facility] [place] [address] [id number] Jun, Type 2 diabetes mellitus with other specified complication E11.69 [facility] [place] [address] [place] [id number] [place] [address] [id number] Jun, Spinal stenosis, unspecified spinal region M48.00 [facility] [place] [address] [id number] Jun, Hypoglycemia E16.2 [facility] [place] [address] [id number] May, Hypoglycemia E16.2 ; Acute cystitis with hematuria N30.01 and Essential hypertension I10 [facility] [address] [facility] [id number] [address] [place] [address] May, [facility] [address] [place] [id number] [place] [address] [id number] May, Spinal stenosis, unspecified spinal region M48.[address] [id number] May, Reactive depression F32.[address] [id number] May, [address] [id number] Apr, [facility] [id number] [place] [address] [id number] Apr, [facility] [id number] [place] [address], [place] [id number] Apr, [address] [id number] Apr, [address] [id number] Apr, Spinal stenosis, unspecified spinal region M48.[address] [id number] Apr, Type 2 diabetes mellitus with other specified complication E11.69 ; Spinal stenosis, unspecified spinal region M48.00 ; Reactive depression F32.9 and Essential hypertension I10 [facility] [address] [facility] [address] [id number] [place] [id number] Apr, [address] [id number] Mar, Spinal stenosis, unspecified spinal region M48.[address] [id number] Feb, Acute non-recurrent maxillary sinusitis J01.00 and Essential hypertension I10 [address] [id number] Feb, Spinal stenosis, unspecified spinal region M48.[address] [id number] Feb, Type 2 diabetes mellitus with other specified complication E11.[address] [id number] Feb, Type 2 diabetes mellitus with other specified complication E11.69 and Essential hypertension I10 [facility] [address] [place] [id number] [place] [address] [id number] Feb, [facility] [address] [id number] Feb, [facility] [address] [id number] Jan, Spinal stenosis, unspecified spinal region M48.[address] [id number] Jan, Diabetic polyneuropathy associated with type 2 diabetes mellitus E11.42 [place] [id number] [place] [address] [id number] Jan, Diabetic polyneuropathy associated with type 2 diabetes mellitus E11.[address] [id number] Jan, Type 2 diabetes mellitus with hyperglycemia E11.65 ; Type 2 diabetes mellitus with other specified complication E11.69 ; Spinal stenosis, unspecified spinal region M48.00 and Essential hypertension I10 [facility] [address] [place] [id number] [place] [address] [id number] Jan, Diabetic polyneuropathy associated with type 2 diabetes mellitus E11.42 [place] [id number] [place] [address] [id number] Dec, [address] [id number] Dec, Diabetic polyneuropathy associated with type 2 diabetes mellitus E11.42 ; Type 2 diabetes mellitus with other specified complication E11.69 ; Hyperlipidemia, unspecified E78.5 ; Thyroid disorder E07.9 and Thyroid disorder screening Z13.29 [place] [id number] [place] [address] [id number] Dec, Diabetic polyneuropathy associated with type 2 diabetes mellitus E11.42 [facility] [address] [facility] [place] [address] Dec, Diabetic polyneuropathy associated with type 2 diabetes mellitus E11.42 [place] [id number] [place] [address] [id number] Dec, Spinal stenosis, unspecified spinal region M48.00 [facility] [place] [address] [place] [id number] [place] [address] [id number] Dec, [facility] [place] [address] [id number] 18 Nov, 2016 Diabetic polyneuropathy associated with type 2 diabetes mellitus E11.42 [facility] [facility] [address] [id number] 15 Nov, 2016 Other chronic pain G89.29 [facility] [place] [address] [id number] 14 Nov, 2016 Spinal stenosis, unspecified spinal region M48.00 [facility] [place] [address] [id number] Oct, Spinal stenosis, unspecified spinal region M48.00 ; Essential hypertension I10 ; RLS (restless legs syndrome) G25.81 and Diabetic polyneuropathy associated with type 2 diabetes mellitus E11.42 [facility] [address] [id number] Oct, Spinal stenosis, unspecified spinal region M48.00 [facility] [address] [id number] Sep, Diabetic polyneuropathy associated with type 2 diabetes mellitus E11.42 ; RLS (restless legs syndrome) G25.81 ; Spinal stenosis, unspecified spinal region M48.00 and Essential hypertension I10 [facility] [address] [id number] Sep, [facility] [address] [id number] Sep, Spinal stenosis, unspecified spinal region M48.00 [facility] [address] [id number] Sep, [facility] [address] [id number] Aug, Spinal stenosis, unspecified spinal region M48.00 [facility] [address] [facility] [place] [address] July, [facility] [address] [id number] [place] [address] [id number] July, Spinal stenosis, unspecified spinal region M48.00 [facility] [address] [facility] [id number] Jun, Type 2 diabetes mellitus with hyperglycemia E11.65 [facility] [address] [place] [id number] [place] [address], [place] [id number] Jun, Spinal stenosis, unspecified spinal region M48.00 [facility] [place] [address] [place] [id number] [place] [address], [place] [id number] May, Spinal stenosis, unspecified spinal region M48.00 [facility] [address] [id number] Apr, Spinal stenosis, unspecified spinal region M48.00 [facility] [address] [address] Mar, [facility] [address] [id number] Mar, Type 2 diabetes mellitus with hyperglycemia E11.65 ; RLS (restless legs syndrome) G25.81 and Spinal stenosis, unspecified spinal region M48.00 [facility] [address] [place] [address] [place] [address] Mar, [facility] [address] [place] [id number] Mar, [facility] [address] [place] [id number] Mar, [facility] [address] [facility] [id number] Feb, [facility] [address] [address] Feb, [facility] [place] [address] [facility] [id number] Feb, [facility] [place] [address] [place] [id number] [place] [address] [id number] Feb, [facility] [address] [address] Feb, [facility] [address] [address] Feb, [facility] [address] [id number] Jan, [address] [id number] Dec, Diabetic polyneuropathy associated with type 2 diabetes mellitus E11.42 ; Other chronic pain G89.29 ; Essential hypertension I10 and Encounter for immunization Z23 [facility] [address] [id number] Dec, [facility] [address] [address] Nov, [facility] [address] [id number] Nov, [address] [id number] Nov, Diabetes type 2, controlled E11.[address] [id number] Nov, Diabetes type 2, controlled E11.9 ; Other chronic pain G89.29 ; Essential hypertension I10 ; Diabetic polyneuropathy associated with type 2 diabetes mellitus E11.42 and RLS (restless legs syndrome) G25.81 [place] [address] [address] Nov, [address] [id number] Oct, [address] [id number] Oct, [address] [id number] Oct, [facility] [address] [address] Oct, [address] [id number] Sep, [address] [id number] Sep, [facility] [address] [address] Sep, Dental examination Z01.20 [facility] [address] [place] [id number] [place] [address] Aug, [facility] [address] [id number] [place] [address] [id number] Aug, [facility] [address] [place] [id number] [place] [address] Aug, [facility] [address] [place] [address] July, [facility] [address] [place] [address] July, [facility] [address] [place] [id number] [place] [address] July, [facility] [address] [id number] July, [facility] [address] [id number] July, [facility] [address] [id number] July, [facility] [address] [place] [address] [id number] [place] [address] July, [facility] [address] [id number] Jun, Diabetes type 2, controlled E11.9 [facility] [address] [id number] Jun, [facility] [address] [id number] May, Diabetes type 1, uncontrolled E10.65 [facility] [address] [id number] May, [facility] [address] [id number] Apr, [facility] [address] [id number] Apr, [facility] [address] [id number] Mar, [facility] [address] [id number] Mar, [address] [place] [address] [id number] Mar, [address] [id number] Mar, Diabetes type 1, uncontrolled E10.65 [place] [id number] [place] [address] [id number] Feb, [address] [id number] Feb, [address] [id number] Feb, [place] [address] [facility]07757[facility] [id number] Jan, [place] [id number] [place] [address] [id number] Jan, Dysuria R30.0 and Acute cystitis with hematuria N30.[address] [id number] Jan, [address] [id number] Dec, Gastroenteritis K52.9 and Headache, unspecified headache type R51 [address] [id number] Dec, [address] [id number] Dec, Chronic back pain 724.[address] [id number] [id number] Dec, [address] [id number] Nov, Chronic back pain 724.5 and Diabetes mellitus without mention of complication, type II or unspecified type, uncontrolled 250.[address] [id number] Nov, [address] [id number] Oct, [address] [id number] Sep, Diabetes mellitus without mention of complication, type II or unspecified type, uncontrolled 250.02 and Urinary tract infection 599.0 [facility] [address] [id number] July, [facility] [address] [address] Jun, [facility] [address] [address] Jun, [facility] [address] [id number] May, [facility] [address] [address] May, [facility] [address] [id number] May, [facility] [address] [address] May, [facility] [address] [id number] Mar, [facility] [address] [address] Mar, [facility] [address] [address] Mar, [facility] [place] [address] [id number] Mar, [facility] [address] [id number] Feb, [facility] [address] [address] Feb, [facility] [id number] [place] [address] [id number] Feb, [facility] [facility] [address] [address] Feb, [facility] [address] [address] Feb, [facility] [address] [id number] Feb, [facility] [address] [facility] [id number] Feb, [facility] [address] [id number] [place] [address] Feb, [facility] [address] [id number] [place] [address] Feb, [facility] [id number] [id number] Jan, [facility] [address] [id number] [place] [address] Jan, [facility] [address] [id number] [id number] Jan, [facility] [address] [id number] [place] [address] Jan, [facility] [address] [id number] [id number] Dec, [facility] [address] [id number] [place] [address] Dec, [facility] [id number] [place] [address] Dec, [facility] [address] [id number] [place] [address] Dec, [facility] [address] [id number] [id number] Dec, [facility] [address] [id number] [place] [address] Dec, [facility] [address] [facility] [id number] Nov, [facility] [address] [id number] [place] [address] Nov, [facility] [address] [facility] [id number] Oct, [facility] [address] [id number] [place] [address] Oct, [facility] [address] [id number] [place] [address] Sep, [facility] [address] [facility] [id number] Sep, [facility] [address] [facility] [id number] Aug, [facility] [address] [id number] [place] [address] Aug, [facility] [address] [facility] [id number] July, [facility] [address] [id number] [place] [address] July, [facility] [id number] [id number] July, [facility] [id number] [place] [address] July, [facility] [id number] [place] [address] July, [facility] [address] [id number] [place] [address] Jun, [facility] [id number] [id number] Jun, [facility] [id number] [id number] Jun, [facility] [address] [id number] [place] [address] Jun, [facility] [id number] [place] [address] Jun, [facility] [address] [id number] [place] [address] May, [facility] [id number] [id number] Apr, [facility] [address] [id number] [place] [address] Apr, [facility] [address] [facility] [id number] Apr, [facility] [address] [id number] [place] [address] Apr, [facility] [address] [id number] [place] [address] Mar, [facility] [address] [id number] [place] [address] Mar, [facility] [address] [id number] [place] [address] Mar, [facility] [place] [id number] [id number] Mar, [facility] [id number] [place] [address] Mar, [facility] [address] [id number] [place] [address] Mar, [facility] [address] [id number] [place] [address] Feb, [facility] [place] [address] [id number] [address] Feb, [facility] [address] [id number] [place] [address] Feb, [facility] [place] [address] [id number] [id number] Feb, [facility] [address] [id number] [place] [address] Feb, [facility] [place] [place] [address] [id number] [id number] Feb, [facility] [address] [id number] [place] [address] Feb, [facility] [address] [id number] Jan, [facility] [id number] [place] [address] Jan, [facility] [address] [id number] [place] [address] Dec, [facility] [id number] [id number] Dec, [facility] [place] [facility] [id number] [place] [address] Nov, [facility] [id number] [id number] Oct, [facility] [id number] [id number] Oct, [facility] [id number] [place] [address], [place] [id number] Sep, [facility] [place] [facility] [id number] [place] [address] Sep, [facility] [id number] [place] [address], [place] [id number] Sep, [facility] [id number] [id number] Sep, [facility] [address] [id number] [id number] Sep, [facility] [id number] [id number] Sep, [facility] [id number] [id number] Sep, [facility] [place] [facility] [id number] [place] [address] Aug, [facility] [id number] [id number] Aug, [facility] [place] [facility] [id number] [place] [address] July, [facility] [id number] [id number] July, [facility] [place] [facility] [id number] [place] [address] July, [facility] [id number] [id number] Jun, [facility] [id number] [place] [address], [place] [id number] Jun, [facility] [id number] [place] [address], [place] [id number] Jun, [facility] [place] [facility] [id number] [place] [address] Jun, [facility] [id number] [place] [address], [place] [id number] May, [facility] [id number] [id number] May, [facility] [place] [facility] [address] [address] May, [facility] [id number] [place] [address], [place] [id number] Apr, [facility] [place] [facility] [id number] [place] [address] Apr, [facility] [id number] [place] [address], [place] [id number] Apr, [facility] [id number] [place] [address], [place] [id number] Apr, [facility] [place] [facility] [id number] [place] [address] Mar, [facility] [id number] [place] [address], [place] [id number] Mar, [facility] [id number] [place] [address], [place] [id number] Mar, [facility] [id number] [place] [address], [place] [id number] Feb, [facility] [place] [facility] [address] [address] Feb, [facility] [address] [id number] [id number] Jan, [facility] [id number] [place] [address], [place] [id number] Jan, [facility] [id number] [place] [address] Jan, [facility] [id number] [place] [address] Jan, [facility] [address] [id number] Jan, [facility] [place] [facility] [address] [id number] [place] [address] Jan, [facility] [id number] [place] [address], [place] [id number] Dec, [facility] [place] [facility] [address] [id number] [place] [address] Dec, [facility] [id number] [place] [address], [place] [id number] Dec, [facility] [place] [facility] [id number] [place] [address] Dec, [facility] [id number] [place] [address], [place] [id number] Dec, [facility] [address], [place] [id number] Nov, [facility] [address], [place] [id number] Nov, [facility] [address], [place] [id number] Oct, [facility] [id number] [place] [address], [place] [id number] Oct, [facility] [address] [id number] Sep, [facility] [id number] [place] [address], [place] [id number] Sep, [facility] [id number] [place] [id number] Sep, [facility] [address] [id number] Aug, [facility] [address], [place] [id number] Aug,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
--- OUTSIDE RECORDS SUMMARY | 2019-06-03 14:43 | XMS REPORT ---
Author Author Emelyn Trinidad Doctor Organization [facility] Address Unknown Phone Unavailable Care Team Providers Care Wind Project Manager Name Role Phone Migration, Doctor Unavailable Unavailable PROBLEMS Type Condition ICD9-CM Code QPH00-SF Code Onset Dates Condition S tatus SNOMED Code Problem Essential hypertension I10 Active 05177987 Problem RLS (restless legs syndrome) G25.81 A ctive 11807305 Problem Other chronic pain G89.29 Active 8 8232469 Problem Diabetic polyneuropathy associated with type 2 d iabetes mellitus E11.42 Active 81054542 Problem Spinal stenosis, unspecified spinal region M48.00 Active 34721776 Problem Encounter for immunization Z23 Act nicole 148782767 Problem Type 2 diabetes mellitus with other specified complication E11.69 Active 25815374745640 Problem Reactive depression F32.9 Active 75647590 Problem Hypoglycemia E16.2 Active 2682223 03 Problem Moderate episode of recurrent major depressive disorder F33.1 Active 408817563 Problem Hyperlipidemia, unspecified E78.5 Ac tive 43075811 Problem Falling R29.6 Active 884554249 Problem Type 2 diabetes mellitus with hyperglycemia E11.65 Active 974795606970000 Problem 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 Active 473784095 Problem Type 2 diabetes mellitus with other diabetic kid rory complication E11.29 Active 52701548 Problem Unsteady gait R26.81 Active 847367 008 Problem Moderate episode of recurrent major depressive disorder F33.1 Active 740580248 ALLERGIES No Information ENCOUNTERS Encounter Location Date Diagnosis [address] [address] 0 6 Jun, [address] [address] 2 3 May, [address] [address] 1 1 May, 2019 Laceration of right periocular area without foreign body, initial encounter S01.111A and Essential hypertension I10 [address] [place] [address] 1 1 May, 2019 [facility] [address] [place] [address] [address] [place] [address] 0 9 May, 2019 Spinal stenosis, unspecified spinal region M48.00 [facility] [address] [place] [address] [address] [place] [address] 2 6 Apr, 2019 Type 2 diabetes mellitus with other specified complication E11.69 ; Essential hypertension I10 and Hyperlipidemia, unspecified E78.5 [facility] [address] [place] [address] [address] [facility] [address] 1 1 Apr, 2019 Spinal stenosis, unspecified spinal region M48.00 [facility] [address] [facility]7570 [place] [address] 04 Apr, 2019 [facility] [address] [place] [address] 1 5 Mar, 2019 Spinal stenosis, unspecified spinal region M48.[address] [id number] Feb, Essential hypertension I10 ; Type 2 diabetes mellitus with hyperglycemia E11.65 ; Falling R29.6 and Spinal stenosis, unspecified spinal region M48.[address] [id number] Feb, Vertigo R42 and Laceration of right foot, initial encounter S91.311A [address] [id number] Jan, Essential hypertension I10 and Type 2 diabetes mellitus with hyperglycemia E11.[address] [id number] Jan, Spinal stenosis, unspecified spinal region M48.[address] [id number] Jan, Essential hypertension I10 and Spinal stenosis, unspecified spinal region M48.[address] [id number] Jan, [address] [id number] Jan, [address] [id number] Dec, Type 2 diabetes mellitus with other specified complication E11.69 and Other chronic pain G89.[address] [id number] Dec, Spinal stenosis, unspecified spinal region M48.00 [facility] [address] [facility] [id number] [place] [address] 14 Dec, 2018 Type 2 diabetes mellitus with other diab etic kidney complication E11.[address] [id number] 14 Dec, 2018 Type 2 diabetes mellitus with other diabetic kidney complication E11.29 ; Fatigue, unspecified type R53.83 ; Moderate episode of recurrent major depressive disorder F33.1 and Acute cystitis with hematuria N30.[address] [id number] 08 Dec, 2018 [facility] [address] [facility] [id number] [address] [place] [address] 07 Dec, 2018 Injury of head, initial enco unter S09.90XA ; Unsteady gait R26.81 and Hyperglycemia R73.[address] [id number] Nov, Spinal stenosis, unspecified spinal region M48.[address] [id number] Nov, Type 2 diabetes mellitus with other diabetic kidney complication E11.29 and 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 [place] [id number] [place] [address] [id number] Nov, Acute renal failure, unspecified acute renal failure type N17.9 [facility] [address] [facility] [address] [id number] [place] [id number] Oct, Diabetic polyneuropathy associated with type 2 diabetes mellitus E11.42 ; Essential hypertension I10 ; Acute renal failure, unspecified acute renal failure type N17.9 and Spinal stenosis, unspecified spinal region M48.[address] [id number] Oct, Essential hypertension I10 ; Diabetic polyneuropathy associated with type 2 diabetes mellitus E11.42 and Acute renal failure, unspecified acute renal failure type N17.9 [facility] [address] [facility] [id number] [facility] [place] [id number] Oct, [facility] [address] [facility]757[facility] [id number] Oct, [facility] [address], [place] [id number] Oct, [facility] [place] [address], [place] [id number] Oct, Essential hypertension I10 ; Diabetic polyneuropathy associated with type 2 diabetes mellitus E11.42 and Acute renal failure, unspecified acute renal failure type N17.9 [facility] [place] [address] [place] [id number] [place] [address], [place] [id number] Oct, Spinal stenosis, unspecified spinal region M48.00 [facility] [place] [address] [id number] Sep, Spinal stenosis, unspecified spinal region M48.00 [facility] [place] [address], [place] [id number] Sep, Type 2 diabetes mellitus with other specified complication E11.69 ; Vertigo R42 and Spinal stenosis, unspecified spinal region M48.00 [facility] [place] [address], [place] [id number] Sep, Spinal stenosis, unspecified spinal region M48.00 [facility] [place] [address] [id number] Sep, Spinal stenosis, unspecified spinal region M48.00 [facility] [place] [address] [id number] Aug, Spinal stenosis, unspecified spinal region M48.00 [facility] [place] [address] [id number] July, Diabetic polyneuropathy associated with type 2 diabetes mellitus E11.42 [facility] [place] [address] [place] [id number] [place] [address], [place] [id number] July, Spinal stenosis, unspecified spinal region M48.00 [facility] [place] [address] [id number] July, Spinal stenosis, unspecified spinal region M48.00 [facility] [place] [address] [id number] Jun, Spinal stenosis, unspecified spinal region M48.00 [facility] [place] [address] [place] [id number] [place] [address] [id number] Jun, Diabetic polyneuropathy associated with type 2 diabetes mellitus E11.42 [facility] [place] [address] [id number] May, Diabetic polyneuropathy associated with type 2 diabetes mellitus E11.42 [facility] [place] [address] [id number] May, [facility] [address] [id number] May, Spinal stenosis, unspecified spinal region M48.00 [facility] [address] [id number] Apr, Spinal stenosis, unspecified spinal region M48.00 [facility] [address] [address] [id number] [place] [id number] Apr, [facility] [address] [facility] [id number] 100[address] [place] [address] Apr, Puncture wound T14.8XXA ; Ab rasion T14.8XXA and Encounter for immunization Z23 [facility] [address] [id number] Mar, Spinal stenosis, unspecified spinal region M48.00 [facility] [address] [id number] Feb, Spinal stenosis, unspecified spinal region M48.00 [facility] [address] [place] [address] [id number] Jan, Type 2 diabetes mellitus with hyperglycemia E11.65 ; Diabetes type 2, controlled E11.9 ; Spinal stenosis, unspecified spinal region M48.00 and Encounter for immunization Z23 [facility] [address] [facility]077570 [place] [address] Dec, Spinal stenosis, unspecified spinal joesph on M48.00 [facility] [address] [address] Dec, [facility] [address] [address] Dec, [facility] [address] [address] Dec, [facility] [place] [address] [id number] Nov, [facility] [address], [place] [id number] Nov, Spinal stenosis, unspecified spinal region M48.00 [facility] [address], [place] [id number] Oct, Spinal stenosis, unspecified spinal region M48.00 [facility] [address] [id number] Oct, Spinal stenosis, unspecified spinal region M48.00 [facility] [address] [id number] Oct, [facility] [address] [id number] Oct, Diabetic polyneuropathy associated with type 2 diabetes mellitus E11.42 ; RLS (restless legs syndrome) G25.81 ; Spinal stenosis, unspecified spinal region M48.00 and Acute cystitis with hematuria N30.01 [facility] [address] [id number] Oct, [facility] [address] [id number] Oct, Spinal stenosis, unspecified spinal region M48.00 [facility] [address] [id number] Sep, Diabetic polyneuropathy associated with type 2 diabetes mellitus E11.42 [facility] [address] [place] [id number] [place] [address] Sep, [facility] [address] [id number] Sep, Spinal stenosis, unspecified spinal region M48.00 [facility] [address] [facility] [id number] [place] [address] Aug, [facility] [place] [address] [id number] Aug, Spinal stenosis, unspecified spinal region M48.00 [facility] [place] [address] [id number] Aug, Spinal stenosis, unspecified spinal region M48.00 [facility] [place] [address] [id number] July, [facility] [place] [address] [id number] July, Diabetic polyneuropathy associated with type 2 diabetes mellitus E11.42 ; Type 2 diabetes mellitus with hyperglycemia E11.65 ; RLS (restless legs syndrome) G25.81 and Essential hypertension I10 [facility] [place] [address] [id number] July, Spinal stenosis, unspecified spinal region M48.00 [facility] [place] [address] [id number] July, [facility] [place] [address] [id number] Jun, Type 2 diabetes mellitus with other specified complication E11.69 [facility] [place] [address] [id number] Jun, Spinal stenosis, unspecified spinal region M48.00 [facility] [address] [id number] Jun, Hypoglycemia E16.2 [facility] [place] [address] [id number] May, Hypoglycemia E16.2 ; Acute cystitis with hematuria N30.01 and Essential hypertension I10 [facility] [address] [facility] [id number] [address] [place] [address] May, [facility] [place] [address] [facility] [place] [address] [id number] May, Spinal stenosis, unspecified spinal region M48.00 [facility] [place] [address] [id number] May, Reactive depression F32.9 [place] [id number] [place] [address] [id number] May, [address] [id number] Apr, [facility] [address] [id number] [place] [id number] Apr, [facility] [address] [id number] [place] [id number] Apr, [place] [id number] [place] [address] [id number] Apr, [address] [id number] Apr, Spinal stenosis, unspecified spinal region M48.00 [place] [id number] [place] [address] [id number] Apr, Type 2 diabetes mellitus with other specified complication E11.69 ; Spinal stenosis, unspecified spinal region M48.00 ; Reactive depression F32.9 and Essential hypertension I10 [facility] [address] [facility] [address] [id number] [facility] [place] [id number] Apr, [address] [id number] Mar, Spinal stenosis, unspecified spinal region M48.[address] [id number] Feb, Acute non-recurrent maxillary sinusitis J01.00 and Essential hypertension I10 [address] [id number] Feb, Spinal stenosis, unspecified spinal region M48.[address] [id number] Feb, Type 2 diabetes mellitus with other specified complication E11.[address] [id number] Feb, Type 2 diabetes mellitus with other specified complication E11.69 and Essential hypertension I10 [address] [id number] Feb, [address] [id number] Feb, [address] [id number] Jan, Spinal stenosis, unspecified spinal region M48.00 [place] [id number] [place] [address] [id number] Jan, Diabetic polyneuropathy associated with type 2 diabetes mellitus E11.[address] [id number] Jan, Diabetic polyneuropathy associated with type 2 diabetes mellitus E11.42 [place] [id number] [place] [address] [id number] Jan, Type 2 diabetes mellitus with hyperglycemia E11.65 ; Type 2 diabetes mellitus with other specified complication E11.69 ; Spinal stenosis, unspecified spinal region M48.00 and Essential hypertension I10 [place] [id number] [place] [address] [id number] Jan, Diabetic polyneuropathy associated with type 2 diabetes mellitus E11.42 [place] [id number] [place] [address] [id number] Dec, [address] [id number] Dec, Diabetic polyneuropathy associated with type 2 diabetes mellitus E11.42 ; Type 2 diabetes mellitus with other specified complication E11.69 ; Hyperlipidemia, unspecified E78.5 ; Thyroid disorder E07.9 and Thyroid disorder screening Z13.29 [id number] [id number] Dec, Diabetic polyneuropathy associated with type 2 diabetes mellitus E11.42 [facility] [address] [facility]7570 [place] [address] Dec, Diabetic polyneuropathy associated with type 2 diabetes mellitus E11.42 [place] [id number] [place] [address] [id number] Dec, Spinal stenosis, unspecified spinal region M48.00 [place] [id number] [place] [address] [id number] Dec, [facility] [address] [place] [id number] [place] [address] [id number] 18 Nov, 2016 Diabetic polyneuropathy associated with type 2 diabetes mellitus E11.42 [facility] [address] [id number] 15 Nov, 2016 Other chronic pain G89.[address] [id number] 14 Nov, 2016 Spinal stenosis, unspecified spinal region M48.00 [facility] [address] [id number] Oct, Spinal stenosis, unspecified spinal region M48.00 ; Essential hypertension I10 ; RLS (restless legs syndrome) G25.81 and Diabetic polyneuropathy associated with type 2 diabetes mellitus E11.[address] [id number] Oct, Spinal stenosis, unspecified spinal region M48.[address] [id number] Sep, Diabetic polyneuropathy associated with type 2 diabetes mellitus E11.42 ; RLS (restless legs syndrome) G25.81 ; Spinal stenosis, unspecified spinal region M48.00 and Essential hypertension I10 [facility] [address] [id number] Sep, [facility] [address] [id number] Sep, Spinal stenosis, unspecified spinal region M48.[address] [id number] Sep, [address] [id number] Aug, Spinal stenosis, unspecified spinal region M48.00 [facility] [address] [facility]077570 [place] [address] July, [address] [id number] July, Spinal stenosis, unspecified spinal region M48.[address] [id number] Jun, Type 2 diabetes mellitus with hyperglycemia E11.65 [facility] [address] [facility] [id number] Jun, Spinal stenosis, unspecified spinal region M48.00 [facility] [place] [address] [place] [id number] [place] [address] [id number] May, Spinal stenosis, unspecified spinal region M48.00 [facility] [place] [address] [id number] Apr, Spinal stenosis, unspecified spinal region M48.00 [facility] [address] [address] Mar, [facility] [place] [address] [id number] Mar, Type 2 diabetes mellitus with hyperglycemia E11.65 ; RLS (restless legs syndrome) G25.81 and Spinal stenosis, unspecified spinal region M48.00 [facility] [address] [address] Mar, [facility] [place] [address] [id number] [id number] Mar, [facility] [address] [facility] [id number] Mar, [facility] [address] [id number] [id number] Feb, [facility] [address] [place] [address]89[address] [place] [address] Feb, [facility] [place] [address] [id number] [id number] Feb, [facility] [place] 120 [facility]07[place] [id number] Feb, [facility] [address] [address] Feb, [facility] [address] [address] Feb, [facility] [place] [address] [place] [id number] [place] [address] [id number] Jan, [facility] [place] [address] [id number] Dec, Diabetic polyneuropathy associated with type 2 diabetes mellitus E11.42 ; Other chronic pain G89.29 ; Essential hypertension I10 and Encounter for immunization Z23 [facility] [address] [id number] Dec, [facility] [address] [address] Nov, [facility] [address] [id number] Nov, [facility] [address] [id number] 15 Nov, 2015 Diabetes type 2, controlled E11.[address] [id number] Nov, Diabetes type 2, controlled E11.9 ; Other chronic pain G89.29 ; Essential hypertension I10 ; Diabetic polyneuropathy associated with type 2 diabetes mellitus E11.42 and RLS (restless legs syndrome) G25.81 [facility] [address] [address] Nov, [address] [id number] Oct, [address] [id number] Oct, [address] [id number] Oct, [facility] [address] [address] Oct, [address] [id number] Sep, [address] [id number] Sep, [facility] [address] [address] Sep, Dental examination Z01.20 [facility] [address] [address] Aug, [facility] [address] [place] [id number] [place] [address] [id number] Aug, [facility] [address] [place] [id number] [place] [address] Aug, [facility] [address] [place] [place] [id number] [place] [address] July, [facility] [address] [place] [id number] [place] [address] July, [facility] [address] [place] [id number] [place] [address] July, [facility] [place] [address], [place] [id number] July, [facility] [place] [address], [place] [id number] July, [address] [id number] July, [facility] [address] [place] [id number] [place] [address] July, [address] [id number] Jun, Diabetes type 2, controlled E11.[address] [id number] Jun, [address] [id number] May, Diabetes type 1, uncontrolled E10.65 [facility] [address] [id number] May, [facility] [address] [id number] Apr, [facility] [address] [id number] Apr, [facility] [address], [place] [id number] Mar, [facility] [address] [id number] Mar, [facility] [address] [id number] Mar, [address] [id number] Mar, Diabetes type 1, uncontrolled E10.[address] [id number] Feb, [place] [id number] [place] [address] [id number] Feb, [address] [id number] Feb, [place] [address] [facility]07757H [place] [id number] Jan, [address] [place] [address] [id number] Jan, Dysuria R30.0 and Acute cystitis with hematuria N30.[address] [id number] Jan, [address] [id number] Dec, Gastroenteritis K52.9 and Headache, unspecified headache type R51 [address] [id number] Dec, [address] [id number] Dec, Chronic back pain 724.[address] [place] [id number] Dec, [address] [id number] Nov, Chronic back pain 724.5 and Diabetes mellitus without mention of complication, type II or unspecified type, uncontrolled 250.[address] [id number] Nov, [address] [id number] Oct, [address] [id number] Sep, Diabetes mellitus without mention of complication, type II or unspecified type, uncontrolled 250.02 and Urinary tract infection 599.0 [facility] [id number] [id number] July, [facility] [address] [id number] [place] [address] Jun, [facility] [address] [id number] [place] [address] Jun, [facility] [address] [id number] [id number] May, [facility] [address] [id number] [place] [address] May, [facility] [address] [id number] [id number] May, [facility] [address] [id number] [place] [address] May, [facility] [address] [id number] [id number] Mar, [facility] [address] [id number] [place] [address] Mar, [facility] [address] [id number] [place] [address] Mar, [facility] [address] [place] [id number] [id number] Mar, [facility] [address] [id number] [id number] Feb, [facility] [address] [id number] [place] [address] Feb, [facility] [address] [place] [id number] [id number] Feb, [facility] [address] [id number] [place] [address] Feb, [facility] [address] [id number] [place] [address] Feb, [facility] [address] [place] [id number] [id number] Feb, [facility] [address] [place] [id number] [place] [address] [id number] Feb, [facility] [address] [facility]077570 [place] [address] Feb, [facility] [address] [id number] [place] [address] Feb, [facility] [place] 120 [facility]07757[place] [id number] Jan, [facility] [address] [id number] [place] [address] Jan, [facility] [address] [place] [id number] [id number] Jan, [facility] [address] [id number] [place] [address] Jan, [facility] [place] [address] [place] [id number] [id number] Dec, [facility] [address] [id number] [place] [address] Dec, [facility] [id number] [place] [address] Dec, [facility] [id number] [place] [address] Dec, [facility] [place] [address] [id number] [id number] Dec, [facility] [id number] [place] [address] Dec, [facility] [place] [address] [id number] [id number] Nov, [facility] [address] [id number] [place] [address] Nov, [facility] [place] [address] [id number] [id number] Oct, [facility] [id number] [place] [address] Oct, [facility] [address] [id number] [place] [address] Sep, [facility] [id number] [place] [id number] Sep, [facility] [address] [id number] [place] [id number] Aug, [facility] [address] [id number] [place] [address] Aug, [facility] [address] [id number] [id number] July, [facility] [id number] [place] [address] July, [facility] [address] [facility]757[facility] [address] July, [facility] [id number] [place] [address] July, [facility] [id number] [place] [address] July, [facility] [id number] [place] [address] Jun, [facility] [address] [facility] [address] Jun, [facility] [address] [facility] [id number] Jun, [facility] [id number] [place] [address] Jun, [facility] [address] [id number] [place] [address] Jun, [facility] [id number] [place] [address] May, [facility] [address] [facility]07757[facility] [id number] Apr, [facility] [id number] [place] [address] Apr, [facility] [address] [facility]07757[facility] [id number] Apr, [facility] [id number] [place] [address] Apr, [facility] [address] [id number] [place] [address] Mar, [facility] [address] [id number] [place] [address] Mar, [facility] [address] [id number] [place] [address] Mar, [facility] [place] [address] [id number] [id number] Mar, [facility] [address] [id number] [place] [address] Mar, [facility] [id number] [place] [address] Mar, [facility] [address] [id number] [place] [address] Feb, [facility] [place] [address] [id number] [address] Feb, [facility] [id number] [place] [address] Feb, [facility] [place] [address] [id number] [id number] Feb, [facility] [address] [id number] [place] [address] Feb, [facility] [place] [address] [id number] [address] Feb, [facility] [id number] [place] [address] Feb, [facility] [place] [address] [facility]07[place] [address] Jan, [facility] [id number] [place] [address] Jan, [facility] [id number] [place] [address] Dec, [facility] [place] [address] [id number] [address] Dec, [facility] [address] [id number] [place] [address] Nov, [facility] [address] [facility]07757[facility] [id number] Oct, [facility] [id number] [address] Oct, [facility] [address] [facility]07757[facility] [address] Sep, [facility] [id number] [place] [address] Sep, [facility] [address] [id number] [address] Sep, [facility] [address] [id number] [place] 140447874 Sep, [facility] [address] [id number] 3[address] Sep, [facility] [address] [id number] [place] 609497831 Sep, [facility] [address] [id number] [id number] Sep, [facility] [place] [facility] [id number] [place] [address] Aug, [facility] [address] [id number] 113675165 Aug, [facility] [id number] [place] [address] July, [facility] [address] [id number] [address]34700290 July, [facility] [id number] [place] [address] July, [facility] [address] [facility]07757[facility] 556732938 Jun, [facility] [address] [id number] 364091997 Jun, [facility] [address] [id number] [place] 328881253 Jun, [facility] [id number] [place] [address] Jun, [facility] [address] [id number] 379748671 May, [facility] [id number] [place] [address], [place] 128487480 May, [facility] [id number] [place] [address] May, [facility] [id number] [place] [address], [place] [id number] Apr, [facility] [id number] [place] [address] Apr, [facility] [address] [id number] 970454853 Apr, [facility] [id number] [place] [address], [place] 674655764 Apr, [facility] [id number] [place] [address] Mar, [facility] [id number] [place] [address], [place] [id number] Mar, [facility] [id number] [place] [address], [place] 847074488 Mar, [facility] [id number] [place] [address], [place] 396644260 Feb, [facility] [id number] [place] [address] Feb, [facility] [id number] [place] [address], [place] 325921112 Jan, [facility] [id number] [place] [address] [id number] Jan, [facility] [id number] [place] [address] Jan, [facility] [id number] [place] [address] Jan, [facility] [id number] [place] [address] [id number] Jan, [facility] [id number] [place] [address] Jan, [facility] [address] [id number] 695818376 Dec, [facility] [id number] [place] [address] Dec, [facility] [address] [id number] [id number] Dec, [facility] [address] [id number] [place] [address] Dec, [facility] [id number] [place] [address], [place] [id number] Dec, [facility] [id number] [place] [address], [place] [id number] Nov, [facility] [id number] [place] [address], [place] 130740611 Nov, [facility] [id number] [place] [address], [place] 711146338 Oct, [facility] [address], [place] 294098574 Oct, [facility] [id number] [place] [address], [place] 890550081 Sep, [facility] [id number] [place] [address], [place] 325200113 Sep, [facility] [id number] [place] [address], [place] 070827349 Sep, [facility] [id number] [place] [address], [place] 182902913 Aug, [facility] [address], [place] 077935553 Aug, [facility] [id number] [place] [address], [place] 140363776 July, [facility] [id number] [place] [address], [place] 779503838 July, [facility] [id number] [place] [address], [place] 563740484 July, [facility] [id number] [place] [address], [place] 337376349 July, [facility] [address] [id number] [place] [address] Jun, [facility] [address] [id number] [place] 930102251 Jun, [facility] [address] [id number] 395167777 Jun, [facility] [address] [id number] 004300982 Jun, [facility] [id number] [place] [address], [place] [id number] May, [facility] [address] [id number] 177174510 May, [facility] [address] [id number] 063773277 Apr, [facility] [address] [id number] 196485751 Apr, [facility] [address] [id number] 597172326 Apr, [facility] [id number] [place] [address], [place] 827834173 Apr, [facility] [address] [id number] 157382752 Apr, [facility] [place] [facility] [id number] [place] [address] Apr, [facility] [address] [id number] 978871505 Apr, [facility] [id number] [place] [address], [place] 111459975 Apr, [facility] [id number] [place] [address], [place] 727539882 Mar, [facility] [place] [facility] [id number] [place] [address] Feb, [facility] [place] [facility] [id number] [place] [address] Feb, [facility] [place] [facility] [id number] [place] [address] Feb, [facility] [place] [facility] [id number] [place] [address] Feb, [facility] [address] [id number] [place] [address] Jan, [facility] [address] [id number] [place] [address] Jan, [facility] [address] [id number] [place] [address] Jan, [facility] [address] [id number] [place] [address] Dec, [facility] [address] [id number] [place] [address] Dec, [facility] [address] [id number] [place] [address] Aug, [facility] [address] [id number] [place] [address] Aug, [facility] [address] [id number] [place] [address] Feb, [facility] [address] [id number] [place] [address] Feb, [facility] [address] [id number] [place] [address] Jan, [facility] [address] [id number] [place] [address] Jan, [facility] [address] [id number] [place] [address] Dec, [facility] [address] [id number] [place] [address] Dec, [facility] [address] [id number] [place] [address] Dec, [facility] [address] [id number] [place] [address] May, [facility] [address] [id number] [place] [address] Mar, [facility] [address] [id number] [place] [address] Feb, [facility] [id number] [place] [address] Feb, [facility] [id number] [place] [address] Feb, [facility] [id number] [place] [address] Jan, [facility] [id number] [place] [address] Jan, [facility] [id number] [place] [address] Oct, [facility] [id number] [place] [address] July, [facility] [id number] [place] [address] Apr, [facility] [id number] [place] [address] Jan, [facility] [address] [id number] [place] [address] Jan, IMMUNIZATIONS No Known Immunizations SOCIAL HISTORY [...] Surgical History Left cataract removal-lens implants 10/21 17 Hospitalization History surgeries, childbirth Hospitalization History [facility] [place]- Possible Stroke Hospitalization History Hospital stay due to acute renal didier lure 10/2018
--- OUTSIDE RECORDS SUMMARY | 2019-06-03 14:43 | XMS REPORT ---
Author Author Emelyn Trinidad Doctor Organization [facility] Address Unknown Phone Unavailable Care Team Providers Care Client Service Coordinator Name Role Phone Migration, Doctor Unavailable Unavailable PROBLEMS Type Condition ICD9-CM Code IXG99-UE Code Onset Dates Condition S tatus SNOMED Code Problem Essential hypertension I10 Active 36469149 Problem RLS (restless legs syndrome) G25.81 A ctive 41941078 Problem Other chronic pain G89.29 Active 8 7174217 Problem Diabetic polyneuropathy associated with type 2 d iabetes mellitus E11.42 Active 12303966 Problem Spinal stenosis, unspecified spinal region M48.00 Active 61944889 Problem Encounter for immunization Z23 Act nicole 081534262 Problem Type 2 diabetes mellitus with other specified complication E11.69 Active 32759661973217 Problem Reactive depression F32.9 Active 16386260 Problem Hypoglycemia E16.2 Active 1792404 03 Problem Moderate episode of recurrent major depressive disorder F33.1 Active 882692389 Problem Hyperlipidemia, unspecified E78.5 Ac tive 26112841 Problem Falling R29.6 Active 340543974 Problem Type 2 diabetes mellitus with hyperglycemia E11.65 Active 676195171942614 Problem 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 Active 708612429 Problem Type 2 diabetes mellitus with other diabetic kid rory complication E11.29 Active 59693733 Problem Unsteady gait R26.81 Active 388065 008 Problem Moderate episode of recurrent major depressive disorder F33.1 Active 236684846 ALLERGIES No Information ENCOUNTERS Encounter Location Date Diagnosis [address] [address] 0 6 Jun, [address] [address] 2 3 May, [address] [address] 1 1 May, 2019 Laceration of right periocular area without foreign body, initial encounter S01.111A and Essential hypertension I10 [address] [place] [address] 1 1 May, 2019 [facility] [address] [place] [address] [address] [place] [address] 0 9 May, 2019 Spinal stenosis, unspecified spinal region M48.00 [facility] [address] [place] [address] [address] [place] [address] 2 6 Apr, 2019 Type 2 diabetes mellitus with other specified complication E11.69 ; Essential hypertension I10 and Hyperlipidemia, unspecified E78.5 [facility] [address] [place] [address] [address] [place] [address] 1 1 Apr, 2019 Spinal stenosis, unspecified spinal region M48.00 [facility] [address] [facility] [place] [address] 04 Apr, 2019 [facility] [address] [place] [address] 1 5 Mar, 2019 Spinal stenosis, unspecified spinal region M48.[address] [id number] Feb, Essential hypertension I10 ; Type 2 diabetes mellitus with hyperglycemia E11.65 ; Falling R29.6 and Spinal stenosis, unspecified spinal region M48.[address] [id number] Feb, Vertigo R42 and Laceration of right foot, initial encounter S91.311A [address] [id number] Jan, Essential hypertension I10 and Type 2 diabetes mellitus with hyperglycemia E11.[address] [id number] Jan, Spinal stenosis, unspecified spinal region M48.[address] [id number] Jan, Essential hypertension I10 and Spinal stenosis, unspecified spinal region M48.[address] [id number] Jan, [address] [id number] Jan, [address] [address] Dec, Type 2 diabetes mellitus with other specified complication E11.69 and Other chronic pain G89.[address] [id number] Dec, Spinal stenosis, unspecified spinal region M48.00 [facility] [address] [id number] [place] [address] 14 Dec, 2018 Type 2 diabetes mellitus with other diab etic kidney complication E11.[address] [id number] 14 Dec, 2018 Type 2 diabetes mellitus with other diabetic kidney complication E11.29 ; Fatigue, unspecified type R53.83 ; Moderate episode of recurrent major depressive disorder F33.1 and Acute cystitis with hematuria N30.[address] [id number] 08 Dec, 2018 [facility] [address] [id number] [address] [place] [address] 07 Dec, 2018 Injury of head, initial enco unter S09.90XA ; Unsteady gait R26.81 and Hyperglycemia R73.[address] [id number] Nov, Spinal stenosis, unspecified spinal region M48.[address] [id number] Nov, Type 2 diabetes mellitus with other diabetic kidney complication E11.29 and 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 [place] [id number] [place] [address] [id number] Nov, Acute renal failure, unspecified acute renal failure type N17.9 [facility] [address] [facility] [address] [id number] [place] [id number] Oct, Diabetic polyneuropathy associated with type 2 diabetes mellitus E11.42 ; Essential hypertension I10 ; Acute renal failure, unspecified acute renal failure type N17.9 and Spinal stenosis, unspecified spinal region M48.[address] [id number] Oct, Essential hypertension I10 ; Diabetic polyneuropathy associated with type 2 diabetes mellitus E11.42 and Acute renal failure, unspecified acute renal failure type N17.9 [facility] [address] [facility] [id number] [facility] [place] [id number] Oct, [facility] [address] [facility] [id number] Oct, [facility] [address], [place] [id number] Oct, [facility] [address], [place] [id number] Oct, Essential hypertension I10 ; Diabetic polyneuropathy associated with type 2 diabetes mellitus E11.42 and Acute renal failure, unspecified acute renal failure type N17.9 [facility] [address] [place] [id number] [place] [address], [place] [id number] Oct, Spinal stenosis, unspecified spinal region M48.00 [facility] [address] [id number] Sep, Spinal stenosis, unspecified spinal region M48.00 [facility] [address], [place] [address] Sep, Type 2 diabetes mellitus with other specified complication E11.69 ; Vertigo R42 and Spinal stenosis, unspecified spinal region M48.00 [facility] [address], [place] [id number] Sep, Spinal stenosis, unspecified spinal region M48.00 [facility] [place] [address] [id number] Sep, Spinal stenosis, unspecified spinal region M48.00 [facility] [address] [id number] Aug, Spinal stenosis, unspecified spinal region M48.00 [facility] [place] [address] [id number] July, Diabetic polyneuropathy associated with type 2 diabetes mellitus E11.42 [facility] [address] [place] [id number] [place] [address], [place] [id number] July, Spinal stenosis, unspecified spinal region M48.00 [facility] [address] [address] July, Spinal stenosis, unspecified spinal region M48.00 [facility] [address] [id number] Jun, Spinal stenosis, unspecified spinal region M48.00 [facility] [place] [address] [place] [id number] [place] [address] [id number] Jun, Diabetic polyneuropathy associated with type 2 diabetes mellitus E11.42 [facility] [place] [address] [id number] May, Diabetic polyneuropathy associated with type 2 diabetes mellitus E11.42 [facility] [place] [address] [id number] May, [facility] [address] [id number] May, Spinal stenosis, unspecified spinal region M48.00 [facility] [address] [id number] Apr, Spinal stenosis, unspecified spinal region M48.00 [facility] [address] [address] [id number] [place] [id number] Apr, [facility] [address] [id number] [address] [place] [address] Apr, Puncture wound T14.8XXA ; Ab rasion T14.8XXA and Encounter for immunization Z23 [facility] [address] [id number] Mar, Spinal stenosis, unspecified spinal region M48.00 [facility] [address] [id number] Feb, Spinal stenosis, unspecified spinal region M48.00 [facility] [address] [place] [address] [id number] Jan, Type 2 diabetes mellitus with hyperglycemia E11.65 ; Diabetes type 2, controlled E11.9 ; Spinal stenosis, unspecified spinal region M48.00 and Encounter for immunization Z23 [facility] [address] [facility] [place] [address] Dec, Spinal stenosis, unspecified spinal joesph on M48.00 [facility] [address] [address] Dec, [facility] [address] [address] Dec, [facility] [address] [address] Dec, [facility] [place] [address] [id number] Nov, [facility] [address], [place] [id number] Nov, Spinal stenosis, unspecified spinal region M48.00 [facility] [address], [place] [id number] Oct, Spinal stenosis, unspecified spinal region M48.00 [facility] [address] [id number] Oct, Spinal stenosis, unspecified spinal region M48.00 [facility] [address] [id number] Oct, [facility] [address] [id number] Oct, Diabetic polyneuropathy associated with type 2 diabetes mellitus E11.42 ; RLS (restless legs syndrome) G25.81 ; Spinal stenosis, unspecified spinal region M48.00 and Acute cystitis with hematuria N30.01 [facility] [address] [id number] Oct, [facility] [address] [id number] Oct, Spinal stenosis, unspecified spinal region M48.00 [facility] [address] [id number] Sep, Diabetic polyneuropathy associated with type [address] [facility] [address] [place] [address] [id number] [place] [address] Sep, [facility] [address] [id number] Sep, Spinal stenosis, unspecified spinal region M48.00 [facility] [address] [id number] [place] [address] Aug, [facility] [place] [address] [id number] Aug, Spinal stenosis, unspecified spinal region M48.00 [facility] [place] [address] [id number] Aug, Spinal stenosis, unspecified spinal region M48.00 [facility] [address] [id number] July, [facility] [address] [id number] July, Diabetic polyneuropathy associated with type 2 diabetes mellitus E11.42 ; Type 2 diabetes mellitus with hyperglycemia E11.65 ; RLS (restless legs syndrome) G25.81 and Essential hypertension I10 [facility] [place] [address] [id number] July, Spinal stenosis, unspecified spinal region M48.00 [facility] [place] [address] [id number] July, [facility] [place] [address] [id number] Jun, Type 2 diabetes mellitus with other specified complication E11.69 [facility] [place] [address] [id number] Jun, Spinal stenosis, unspecified spinal region M48.00 [facility] [address] [id number] Jun, Hypoglycemia E16.2 [facility] [address] [id number] May, Hypoglycemia E16.2 ; Acute cystitis with hematuria N30.01 and Essential hypertension I10 [facility] [address] [id number] 100[address] [place] [address] May, [facility] [address] [facility] [place] [address] [id number] May, Spinal stenosis, unspecified spinal region M48.00 [facility] [address] [id number] May, Reactive depression F32.9 [place] [id number] [place] [address] [id number] May, [address] [id number] Apr, [facility] [address] [address] [id number] [place] [id number] Apr, [facility] [address] [id number] [place] [id number] Apr, [place] [id number] [place] [address] [id number] Apr, [address] [id number] Apr, Spinal stenosis, unspecified spinal region M48.00 [place] [address] [place] [address] [id number] Apr, Type 2 diabetes mellitus with other specified complication E11.69 ; Spinal stenosis, unspecified spinal region M48.00 ; Reactive depression F32.9 and Essential hypertension I10 [facility] [address] [facility] [address] [id number] [facility] [place] [id number] Apr, [address] [id number] Mar, Spinal stenosis, unspecified spinal region M48.[address] [id number] Feb, Acute non-recurrent maxillary sinusitis J01.00 and Essential hypertension I10 [address] [id number] Feb, Spinal stenosis, unspecified spinal region M48.[address] [id number] Feb, Type 2 diabetes mellitus with other specified complication E11.[address] [id number] Feb, Type 2 diabetes mellitus with other specified complication E11.69 and Essential hypertension I10 [address] [id number] Feb, [address] [id number] Feb, [address] [id number] Jan, Spinal stenosis, unspecified spinal region M48.00 [place] [address] [place] [address] [id number] Jan, Diabetic polyneuropathy associated with type 2 diabetes mellitus E11.[address] [id number] Jan, Diabetic polyneuropathy associated with type 2 diabetes mellitus E11.42 [place] [address] [place] [address] [id number] Jan, Type 2 diabetes mellitus with hyperglycemia E11.65 ; Type 2 diabetes mellitus with other specified complication E11.69 ; Spinal stenosis, unspecified spinal region M48.00 and Essential hypertension I10 [place] [address] [place] [address] [id number] Jan, Diabetic polyneuropathy associated with type 2 diabetes mellitus E11.42 [place] [address] [place] [address] [id number] Dec, [address] [id number] Dec, Diabetic polyneuropathy associated with type 2 diabetes mellitus E11.42 ; Type 2 diabetes mellitus with other specified complication E11.69 ; Hyperlipidemia, unspecified E78.5 ; Thyroid disorder E07.9 and Thyroid disorder screening Z13.29 [place] [id number] Dec, Diabetic polyneuropathy associated with type [address] [facility] [address] [facility] [place] [address] Dec, Diabetic polyneuropathy associated with type 2 diabetes mellitus E11.42 [place] [id number] [place] [address] [id number] Dec, Spinal stenosis, unspecified spinal region M48.00 [place] [address] [place] [address] [id number] Dec, [facility] [address] [place] [id number] [place] [address] [id number] 18 Nov, 2016 Diabetic polyneuropathy associated with type 2 diabetes mellitus E11.42 [facility] [address] [id number] 15 Nov, 2016 Other chronic pain G89.[address] [id number] 14 Nov, 2016 Spinal stenosis, unspecified spinal region M48.00 [facility] [address] [id number] Oct, Spinal stenosis, unspecified spinal region M48.00 ; Essential hypertension I10 ; RLS (restless legs syndrome) G25.81 and Diabetic polyneuropathy associated with type 2 diabetes mellitus E11.[address] [id number] Oct, Spinal stenosis, unspecified spinal region M48.[address] [id number] Sep, Diabetic polyneuropathy associated with type 2 diabetes mellitus E11.42 ; RLS (restless legs syndrome) G25.81 ; Spinal stenosis, unspecified spinal region M48.00 and Essential hypertension I10 [facility] [address] [id number] Sep, [facility] [address] [id number] Sep, Spinal stenosis, unspecified spinal region M48.[address] [id number] Sep, [address] [id number] Aug, Spinal stenosis, unspecified spinal region M48.00 [facility] [address] [facility]07[address] [place] [address] July, [address] [id number] July, Spinal stenosis, unspecified spinal region M48.[address] [id number] Jun, Type 2 diabetes mellitus with hyperglycemia E11.65 [facility] [address] [facility] [id number] Jun, Spinal stenosis, unspecified spinal region M48.00 [facility] [place] [address] [place] [id number] [place] [address] [id number] May, Spinal stenosis, unspecified spinal region M48.00 [facility] [address] [id number] Apr, Spinal stenosis, unspecified spinal region M48.00 [facility] [address] [address] Mar, [facility] [place] [address] [id number] Mar, Type 2 diabetes mellitus with hyperglycemia E11.65 ; RLS (restless legs syndrome) G25.81 and Spinal stenosis, unspecified spinal region M48.00 [facility] [address] [address] Mar, [facility] [address] [place] [place] [id number] [id number] Mar, [facility] [address] [facility]07[place] [id number] Mar, [facility] [address] [place] [id number] [id number] Feb, [facility] [address] 85835[address] [place] [address] Feb, [facility] [place] [address] [id number] [id number] Feb, [facility] [place] [address] [facility], [place] [id number] Feb, [facility] [address] [address] Feb, [facility] [address] [address] Feb, [facility] [place] [address] [place] [place] [id number] [place] [address] [id number] Jan, [facility] [place] [address] [id number] Dec, Diabetic polyneuropathy associated with type 2 diabetes mellitus E11.42 ; Other chronic pain G89.29 ; Essential hypertension I10 and Encounter for immunization Z23 [facility] [address] [id number] Dec, [facility] [address] [address] Nov, [facility] [address] [id number] Nov, [facility] [address] [id number] 15 Nov, 2015 Diabetes type 2, controlled E11.[address] [id number] Nov, Diabetes type 2, controlled E11.9 ; Other chronic pain G89.29 ; Essential hypertension I10 ; Diabetic polyneuropathy associated with type 2 diabetes mellitus E11.42 and RLS (restless legs syndrome) G25.81 [facility] [address] [address] Nov, [address] [id number] Oct, [address] [id number] Oct, [address] [id number] Oct, [facility] [address] [address] Oct, [address] [id number] Sep, [address] [id number] Sep, [facility] [address] [address] Sep, Dental examination Z01.20 [facility] [address] [address] Aug, [facility] [address] [place] [place] [id number] [place] [address] [id number] Aug, [facility] [address] [id number] [place] [address] Aug, [facility] [address] [place] [address] July, [facility] [address] 85835[address] [place] [address] July, [facility] [id number] [place] [address] July, [facility] [place] [address], [place] [id number] July, [facility] [address], [place] [id number] July, [address], [place] [id number] July, [facility] [id number] [place] [address] July, [address] [id number] Jun, Diabetes type 2, controlled E11.[address] [id number] Jun, [address], [place] [id number] May, Diabetes type 1, uncontrolled E10.65 [facility] [address] [id number] May, [facility] [address] [id number] Apr, [facility] [address] [address] Apr, [facility] [address], [place] [address]607[address] Mar, [facility] [address] [id number] Mar, [facility] [address] [id number] Mar, [address], [place] [id number] Mar, Diabetes type 1, uncontrolled E10.[address] [id number] Feb, [place] [id number] [place] [address] [id number] Feb, [address]757[place] [id number] Feb, [place] [address] [id number] [place] [id number] Jan, [address] [place] [address] [id number] Jan, Dysuria R30.0 and Acute cystitis with hematuria N30.[address] [id number] Jan, [address] [id number] Dec, Gastroenteritis K52.9 and Headache, unspecified headache type R51 [address] [id number] Dec, [address] [id number] Dec, Chronic back pain 724.[address] [id number] [id number] Dec, [address] [id number] Nov, Chronic back pain 724.5 and Diabetes mellitus without mention of complication, type II or unspecified type, uncontrolled 250.[address] [id number] Nov, [address] [id number] Oct, [address] [id number] Sep, Diabetes mellitus without mention of complication, type II or unspecified type, uncontrolled 250.02 and Urinary tract infection 599.0 [facility] [address] [id number] [id number] July, [facility] [id number] [place] [address] Jun, [facility] [id number] [place] [address] Jun, [facility] [address] 55316757[place] [id number] May, [facility] [id number] [place] [address] May, [facility] [address] 55316757[place] [id number] May, [facility] [id number] [place] [address] May, [facility] [address] [id number] [id number] Mar, [facility] [id number] [place] [address] Mar, [facility] [id number] [place] [address] Mar, [facility] [address] 55316757[place] [id number] Mar, [facility] [address] 55316757[place] [id number] Feb, [facility] [id number] [place] [address] Feb, [facility] [address] 55316757[place] [id number] Feb, [facility] [id number] [place] [address] Feb, [facility] [id number] [place] [address] Feb, [facility] [address] 55316757[place] [id number] Feb, [facility] [id number] [place] [address] [id number] Feb, [facility] [address] [facility]07[address] [place] [address] Feb, [facility] [id number] [place] [address] Feb, [facility] [address] [facility]07757[place] [id number] Jan, [facility] [id number] [place] [address] Jan, [facility] [address] [id number] [place] [id number] Jan, [facility] [id number] [place] [address] Jan, [facility] [address] 68606757[place] [id number] Dec, [facility] [id number] [place] [address] Dec, [facility] [id number] [place] [address] Dec, [facility] [id number] [place] [address] Dec, [facility] [address] [id number] [id number] Dec, [facility] [id number] [place] [address] Dec, [facility] [address] [id number] [id number] Nov, [facility] [address] [id number] [place] [address] Nov, [facility] [place] [address] [id number] [id number] Oct, [facility] [id number] [place] [address] Oct, [facility] [address] [id number] [place] [address] Sep, [facility] [address] [id number] [id number] Sep, [facility] [address] [id number] [place] [id number] Aug, [facility] [address] [id number] [place] [address] Aug, [facility] [address] [facility] [id number] July, [facility] [id number] [place] [address] July, [facility] [address] [facility]757[facility] [id number] July, [facility] [id number] [place] [address] July, [facility] [id number] [place] [address] July, [facility] [id number] [place] [address] Jun, [facility] [address] [facility] [id number] Jun, [facility] [address] [facility] [id number] Jun, [facility] [id number] [place] [address] Jun, [facility] [address] [id number] [place] [address] Jun, [facility] [id number] [place] [address] May, [facility] [address] [facility] [id number] Apr, [facility] [id number] [place] [address] Apr, [facility] [address] [facility]757[facility] [id number] Apr, [facility] [id number] [place] [address] Apr, [facility] [address] [id number] [place] [address] Mar, [facility] [address] [id number] [place] [address] Mar, [facility] [address] [id number] [place] [address] Mar, [facility] [place] [address] [id number] [id number] Mar, [facility] [address] [id number] [place] [address] Mar, [facility] [id number] [place] [address] Mar, [facility] [address] [id number] [place] [address] Feb, [facility] [place] [address] [id number] [id number] Feb, [facility] [id number] [place] [address] Feb, [facility] [place] [address] [id number] [id number] Feb, [facility] [address] [id number] [place] [address] Feb, [facility] [place] [address] [id number] [id number] Feb, [facility] [id number] [place] [address] Feb, [facility] [place] [address] [facility] [id number] Jan, [facility] [id number] [place] [address] Jan, [facility] [id number] [place] [address] Dec, [facility] [place] [address] [id number] [id number] Dec, [facility] [address] [id number] [place] [address] Nov, [facility] [address] [facility] [id number] Oct, [facility] [address] [id number] [id number] Oct, [facility] [address] [facility]757[facility] [id number] Sep, [facility] [id number] [place] [address] Sep, [facility] [address] [id number] [address] Sep, [facility] [address] [id number] [id number] Sep, [facility] [address] [id number] [address] Sep, [facility] [address] [id number] 41990[address]39 Sep, [facility] [id number] [id number] Sep, [facility] [place] [facility] [id number] [place] [address] Aug, [facility] [id number] [id number] Aug, [facility] [id number] [place] [address] July, [facility] [address] [id number] [id number] July, [facility] [id number] [place] [address] July, [facility] [address] [facility] [id number] Jun, [facility] [address] [id number] [id number] Jun, [facility] [address] [id number] [id number] Jun, [facility] [id number] [place] [address] Jun, [facility] [address] [id number] [id number] May, [facility] [id number] [place] [address], [place] [id number] May, [facility] [id number] [place] [address] May, [facility] [id number] [place] [address], [place] [id number] Apr, [facility] [id number] [place] [address] Apr, [facility] [address] [id number] [id number] Apr, [facility] [id number] [place] [address], [place] [id number] Apr, [facility] [id number] [place] [address] Mar, [facility] [id number] [place] [address], [place] [id number] Mar, [facility] [id number] [place] [address], [place] [id number] Mar, [facility] [id number] [place] [address], [place] [id number] Feb, [facility] [id number] [place] [address] Feb, [facility] [id number] [place] [address], [place] [id number] Jan, [facility] [id number] [place] [id number] Jan, [facility] [id number] [place] [address] Jan, [facility] [id number] [place] [address] Jan, [facility] [id number] [place] [address] [id number] Jan, [facility] [id number] [place] [address] Jan, [facility] [address] [id number] [id number] Dec, [facility] [id number] [place] [address] Dec, [facility] [id number] [id number] Dec, [facility] [address] [id number] [place] [address] Dec, [facility] [id number] [place] [address], [place] [id number] Dec, [facility] [id number] [place] [address], [place] [id number] Nov, [facility] [id number] [place] [address], [place] [id number] Nov, [facility] [id number] [place] [address], [place] [id number] Oct, [facility] [address], [place] [id number] Oct, [facility] [id number] [place] [address], [place] [id number] Sep, [facility] [id number] [place] [address], [place] [id number] Sep, [facility] [id number] [place] [address], [place] [id number] Sep, [facility] [id number] [place] [address], [place] [id number] Aug, [facility] [address], [place] [id number] Aug, [facility] [id number] [place] [address], [place] [id number] July, [facility] [id number] [place] [address], [place] [id number] July, [facility] [id number] [place] [address], [place] [id number] July, [facility] [id number] [place] [address], [place] [id number] July, [facility] [address] [id number] [place] [address] Jun, [facility] [address] [id number] [place] 719602291 Jun, [facility] [id number] [id number] Jun, [facility] [address] [id number] [id number] Jun, [facility] [id number] [place] [address], [place] [id number] May, [facility] [id number] 452999253 May, [facility] [id number] [id number] Apr, [facility] [id number] [id number] Apr, [facility] [address] [id number] [id number] Apr, [facility] [id number] [place] [address], [place] [id number] Apr, [facility] [id number] [id number] Apr, [facility] [place] [facility] [id number] [place] [address] Apr, [facility] [id number] [id number] Apr, [facility] [id number] [place] [address], [place] [id number] Apr, [facility] [id number] [place] [address], [place] [id number] Mar, [facility] [place] [facility] [id number] [place] [address] Feb, [facility] [place] [facility] [id number] [place] [address] Feb, [facility] [place] [facility] [id number] [place] [address] Feb, [facility] [place] [facility] [id number] [place] [address] Feb, [facility] [address] [id number] [place] [address] Jan, [facility] [address] [id number] [place] [address] Jan, [facility] [address] [id number] [place] [address] Jan, [facility] [address] [id number] [place] [address] Dec, [facility] [address] [id number] [place] [address] Dec, [facility] [address] [id number] [place] [address] Aug, [facility] [address] [id number] [place] [address] Aug, [facility] [address] [id number] [place] [address] Feb, [facility] [address] [id number] [place] [address] Feb, [facility] [address] [id number] [place] [address] Jan, [facility] [address] [id number] [place] [address] Jan, [facility] [address] [id number] [place] [address] Dec, [facility] [address] [id number] [place] [address] Dec, [facility] [address] [id number] [place] [address] Dec, [facility] [address] [id number] [place] [address] May, [facility] [address] [id number] [place] [address] Mar, [facility] [address] [id number] [place] [address] Feb, [facility] [address] [id number] [place] [address] Feb, [facility] [address] [id number] [place] [address] Feb, [facility] [id number] [place] [address] Jan, [facility] [id number] [place] [address] Jan, [facility] [id number] [place] [address] Oct, [facility] [id number] [place] [address] July, [facility] [id number] [place] [address] Apr, [facility] [id number] [place] [address] Jan, [facility] [address] [id number] [place] [address] Jan, IMMUNIZATIONS No Known Immunizations SOCIAL HISTORY Never Assessed REASON FOR VISIT PLAN OF CARE VITAL SIGNS Height 64 in 2012-04-01 Weight 165.12 lbs 2012-04-01 Temperature 98.5 degrees Fahrenheit 2012-04-01 Heart Rate 60 bpm 2012-04-01 Respiratory Rate 16 2012-04-01 Blood pressure systolic 158 mmHg 2012-04-01 Blood pressure diastolic 82 mmHg 2012-04-01 MEDICATIONS Unknown Medications RESULTS No Results PROCEDURES Procedure Date Ordered Result Body Site GLYCATED HEMOGLOBIN TEST Apr 01, 2012 DRUG SCREEN, QUALITATE/MULTI Apr 01, 2012 MRI LUMBAR SPINE W/O DYE Apr 01, 2012 INSTRUCTIONS MEDICATIONS ADMINISTERED No Known Medications MEDICAL [...] Hospitalization History surgeries, childbirth Hospitalization History [facility] [place]- Possible Stroke Hospitalization History Hospital stay due to acute renal didier lure 10/2018
--- OUTSIDE RECORDS SUMMARY | 2019-06-03 14:44 | XMS REPORT ---
Author Author Emelyn Lira Organization [facility] Address [address] [place] [address] Care Team Providers Care Naphthalene Operator Name Role Phone [place] Lira Unavailable PROBLEMS Type Condition ICD9-CM Code NBT91-EP Code Onset Dates Condition S tatus SNOMED Code Problem Essential hypertension I10 Active 48876155 Problem RLS (restless legs syndrome) G25.81 A ctive 33932998 Problem Other chronic pain G89.29 Active 8 6273121 Problem Diabetic polyneuropathy associated with type 2 d iabetes mellitus E11.42 Active 17621804 Problem Spinal stenosis, unspecified spinal region M48.00 Active 92820531 Problem Encounter for immunization Z23 Act nicole 608384447 Problem Type 2 diabetes mellitus with other specified complication E11.69 Active 60381608601298 Problem Reactive depression F32.9 Active 58463029 Problem Hypoglycemia E16.2 Active 8054946 03 Problem Moderate episode of recurrent major depressive disorder F33.1 Active 621802227 Problem Hyperlipidemia, unspecified E78.5 Ac tive 07991275 Problem Falling R29.6 Active 601753392 Problem Type 2 diabetes mellitus with hyperglycemia E11.65 Active 544658784948241 Problem 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 Active 020675561 Problem Type 2 diabetes mellitus with other diabetic kid rory complication E11.29 Active 54390544 Problem Unsteady gait R26.81 Active 665610 008 Problem Moderate episode of recurrent major depressive disorder F33.1 Active 645140211 ALLERGIES No Information ENCOUNTERS Encounter Location Date Diagnosis [address] [address] 0 6 Jun, [address] [address] 1 1 May, 2019 Laceration of right periocular area without foreign body, initial encounter S01.111A and Essential hypertension I10 [address] [place] [address] 1 1 May, 2019 [facility] [address] [place] [address] [place] [place] [address] 0 9 May, 2019 Spinal stenosis, unspecified spinal region M48.00 [facility] [address] [place] [address] [address] [place] [place] [address] 2 6 Apr, 2019 Type 2 diabetes mellitus with other specified complication E11.69 ; Essential hypertension I10 and Hyperlipidemia, unspecified E78.[address] [place] [place] [address] 1 1 Apr, 2019 Spinal stenosis, unspecified spinal region M48.00 [facility] [address] [facility] [place] [address] 04 Apr, [address] [address] 1 5 Mar, 2019 Spinal stenosis, unspecified spinal region M48.[address] [id number] Feb, Essential hypertension I10 ; Type 2 diabetes mellitus with hyperglycemia E11.65 ; Falling R29.6 and Spinal stenosis, unspecified spinal region M48.[address] [id number] Feb, Vertigo R42 and Laceration of right foot, initial encounter S91.311A [address] [id number] Jan, Essential hypertension I10 and Type 2 diabetes mellitus with hyperglycemia E11.[address] [id number] Jan, Spinal stenosis, unspecified spinal region M48.[address] [id number] Jan, Essential hypertension I10 and Spinal stenosis, unspecified spinal region M48.[address] [id number] Jan, [address] [id number] Jan, [place] [id number] Dec, Type 2 diabetes mellitus with other specified complication E11.69 and Other chronic pain G89.[address] [id number] Dec, Spinal stenosis, unspecified spinal region M48.00 [facility] [address] [facility] [id number] [place] [address] 14 Dec, 2018 Type 2 diabetes mellitus with other diab etic kidney complication E11.[address] [id number] 14 Dec, 2018 Type 2 diabetes mellitus with other diabetic kidney complication E11.29 ; Fatigue, unspecified type R53.83 ; Moderate episode of recurrent major depressive disorder F33.1 and Acute cystitis with hematuria N30.[address] [id number] 08 Dec, 2018 [facility] [address] [facility] [id number] [address] [place] [address] 07 Dec, 2018 Injury of head, initial enco unter S09.90XA ; Unsteady gait R26.81 and Hyperglycemia R73.[address] [id number] Nov, Spinal stenosis, unspecified spinal region M48.[address] [id number] 17 Nov, 2018 Type 2 diabetes mellitus with other diabetic kidney complication E11.29 and 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 [place] [id number] [place] [address] [id number] Nov, Acute renal failure, unspecified acute renal failure type N17.9 [facility] [address] [facility] [address] [id number] [place] [id number] Oct, Diabetic polyneuropathy associated with type 2 diabetes mellitus E11.42 ; Essential hypertension I10 ; Acute renal failure, unspecified acute renal failure type N17.9 and Spinal stenosis, unspecified spinal region M48.[address] [id number] Oct, Essential hypertension I10 ; Diabetic polyneuropathy associated with type 2 diabetes mellitus E11.42 and Acute renal failure, unspecified acute renal failure type N17.9 [facility] [address] [facility] [id number] [facility] [place] [id number] Oct, [facility] [place] [address] [facility] [place] [id number] Oct, [facility] [place] [address] [place] [id number] [place] [address], [place] [id number] Oct, [facility] [place] [address], [place] [id number] Oct, Essential hypertension I10 ; Diabetic polyneuropathy associated with type 2 diabetes mellitus E11.42 and Acute renal failure, unspecified acute renal failure type N17.9 [facility] [place] [address] [facility]757[facility] [address] Oct, Spinal stenosis, unspecified spinal region M48.00 [facility] [place] [address] [place] [id number] [place] [address], [place] [id number] Sep, Spinal stenosis, unspecified spinal region M48.00 [facility] [place] [address], [place] [id number] Sep, Type 2 diabetes mellitus with other specified complication E11.69 ; Vertigo R42 and Spinal stenosis, unspecified spinal region M48.00 [facility] [place] [address] [place] [id number] [place] [address] Sep, Spinal stenosis, unspecified spinal region M48.00 [facility] [place] [address] [place] [id number] [place] [address], [place] [id number] Sep, Spinal stenosis, unspecified spinal region M48.00 [facility] [place] [address], [place] [id number] Aug, Spinal stenosis, unspecified spinal region M48.00 [facility] [place] [address], [place] [address] July, Diabetic polyneuropathy associated with type 2 diabetes mellitus E11.42 [facility] [place] [address] [place] [id number] [place] [address] July, Spinal stenosis, unspecified spinal region M48.00 [facility] [address] [place] [address] [id number] July, Spinal stenosis, unspecified spinal region M48.00 [facility] [address] [id number] Jun, Spinal stenosis, unspecified spinal region M48.00 [facility] [address] [id number] Jun, Diabetic polyneuropathy associated with type 2 diabetes mellitus E11.42 [facility] [address] [id number] May, Diabetic polyneuropathy associated with type 2 diabetes mellitus E11.42 [facility] [address] [id number] May, [facility] [address] [id number] May, Spinal stenosis, unspecified spinal region M48.00 [facility] [address] [id number] Apr, Spinal stenosis, unspecified spinal region M48.00 [facility] [address] [id number] [place] [id number] Apr, [facility] [address] [facility] [id number] [address] [place] [address] Apr, Puncture wound T14.8XXA ; Ab rasion T14.8XXA and Encounter for immunization Z23 [facility] [address] [id number] Mar, Spinal stenosis, unspecified spinal region M48.00 [facility] [address] [id number] Feb, Spinal stenosis, unspecified spinal region M48.00 [facility] [address] [id number] Jan, Type 2 diabetes mellitus with hyperglycemia E11.65 ; Diabetes type 2, controlled E11.9 ; Spinal stenosis, unspecified spinal region M48.00 and Encounter for immunization Z23 [facility] [address] [facility] [place] [address] Dec, Spinal stenosis, unspecified spinal joeshp on M48.00 [facility] [address] [place] 0558[address] [place] [address] Dec, [facility] [address] [address] Dec, [facility] [address] [place] [id number] [place] [address] Dec, [facility] [place] [address] [id number] Nov, [facility] [address], [place] [id number] Nov, Spinal stenosis, unspecified spinal region M48.00 [facility] [address], [place] [id number] Oct, Spinal stenosis, unspecified spinal region M48.00 [facility] [address], [place] [address] Oct, Spinal stenosis, unspecified spinal region M48.00 [facility] [address] [id number] Oct, [facility] [address] [id number] Oct, Diabetic polyneuropathy associated with type 2 diabetes mellitus E11.42 ; RLS (restless legs syndrome) G25.81 ; Spinal stenosis, unspecified spinal region M48.00 and Acute cystitis with hematuria N30.01 [facility] [address] [id number] Oct, [facility] [address] [id number] Oct, Spinal stenosis, unspecified spinal region M48.00 [facility] [address] [id number] Sep, Diabetic polyneuropathy associated with type 2 diabetes mellitus E11.42 [facility] [address] [place] [id number] [place] [address] Sep, [facility] [address] [id number] Sep, Spinal stenosis, unspecified spinal region M48.00 [facility] [address] [facility] [id number] [place] [address] Aug, [facility] [place] [address] [id number] Aug, Spinal stenosis, unspecified spinal region M48.00 [facility] [place] [address] [id number] Aug, Spinal stenosis, unspecified spinal region M48.00 [facility] [place] [address] [id number] July, [facility] [place] [address] [id number] July, Diabetic polyneuropathy associated with type 2 diabetes mellitus E11.42 ; Type 2 diabetes mellitus with hyperglycemia E11.65 ; RLS (restless legs syndrome) G25.81 and Essential hypertension I10 [facility] [address] [id number] July, Spinal stenosis, unspecified spinal region M48.00 [facility] [place] [address] [id number] July, [facility] [place] [address] [id number] Jun, Type 2 diabetes mellitus with other specified complication E11.69 [facility] [place] [address] [id number] Jun, Spinal stenosis, unspecified spinal region M48.00 [facility] [address] [id number] Jun, Hypoglycemia E16.2 [facility] [place] [address] [id number] May, Hypoglycemia E16.2 ; Acute cystitis with hematuria N30.01 and Essential hypertension I10 [facility] [address] [facility] [id number] [address] [place] [address] May, [facility] [place] [address] [place] [id number] [place] [address] [id number] May, Spinal stenosis, unspecified spinal region M48.00 [facility] [place] [address] [id number] May, Reactive depression F32.9 [facility] [address] [id number] May, [facility] [address] [id number] Apr, [facility] [address] [id number] [place] [id number] Apr, [facility] [address] [id number] [place] [id number] Apr, [facility] [address] [id number] Apr, [facility] [address] [id number] Apr, Spinal stenosis, unspecified spinal region M48.[address] [id number] Apr, Type 2 diabetes mellitus with other specified complication E11.69 ; Spinal stenosis, unspecified spinal region M48.00 ; Reactive depression F32.9 and Essential hypertension I10 [facility] [address] [facility] [address] [id number] [id number] Apr, [facility] [place] [address] [id number] Mar, Spinal stenosis, unspecified spinal region M48.[address] [id number] Feb, Acute non-recurrent maxillary sinusitis J01.00 and Essential hypertension I10 [address] [id number] Feb, Spinal stenosis, unspecified spinal region M48.[address] [id number] Feb, Type 2 diabetes mellitus with other specified complication E11.[address] [id number] Feb, Type 2 diabetes mellitus with other specified complication E11.69 and Essential hypertension I10 [address] [place] [id number] Feb, [facility] [address] [place] [id number] [place] [address] [id number] Feb, [address] [id number] Jan, Spinal stenosis, unspecified spinal region M48.00 [facility] [address] [id number] Jan, Diabetic polyneuropathy associated with type 2 diabetes mellitus E11.[address] [id number] Jan, Diabetic polyneuropathy associated with type 2 diabetes mellitus E11.[address] [id number] Jan, Type 2 diabetes mellitus with hyperglycemia E11.65 ; Type 2 diabetes mellitus with other specified complication E11.69 ; Spinal stenosis, unspecified spinal region M48.00 and Essential hypertension I10 [address] [id number] Jan, Diabetic polyneuropathy associated with type 2 diabetes mellitus E11.[address] [id number] Dec, [address] [id number] Dec, Diabetic polyneuropathy associated with type 2 diabetes mellitus E11.42 ; Type 2 diabetes mellitus with other specified complication E11.69 ; Hyperlipidemia, unspecified E78.5 ; Thyroid disorder E07.9 and Thyroid disorder screening Z13.29 [facility] [address] [place] [id number] [place] [address] [id number] Dec, Diabetic polyneuropathy associated with type 2 diabetes mellitus E11.42 [facility] [address] [facility] [place] [address] Dec, Diabetic polyneuropathy associated with type 2 diabetes mellitus E11.42 [facility] [address] [place] [id number] [place] [address] [id number] Dec, Spinal stenosis, unspecified spinal region M48.[address] [id number] Dec, [facility] [place] [address] [place] [id number] [place] [address] [id number] 18 Nov, 2016 Diabetic polyneuropathy associated with type 2 diabetes mellitus E11.42 [facility] [place] [address] [id number] 15 Nov, 2016 Other chronic pain G89.29 [facility] [place] [address] [id number] 14 Nov, 2016 Spinal stenosis, unspecified spinal region M48.00 [facility] [place] [address] [id number] Oct, Spinal stenosis, unspecified spinal region M48.00 ; Essential hypertension I10 ; RLS (restless legs syndrome) G25.81 and Diabetic polyneuropathy associated with type 2 diabetes mellitus E11.42 [facility] [place] [address] [id number] Oct, Spinal stenosis, unspecified spinal region M48.00 [facility] [place] [address] [id number] Sep, Diabetic polyneuropathy associated with type 2 diabetes mellitus E11.42 ; RLS (restless legs syndrome) G25.81 ; Spinal stenosis, unspecified spinal region M48.00 and Essential hypertension I10 [facility] [place] [address] [id number] Sep, [facility] [address] [place] [id number] [place] [address] [id number] Sep, Spinal stenosis, unspecified spinal region M48.00 [facility] [place] [address] [id number] Sep, [facility] [place] [address] [id number] Aug, Spinal stenosis, unspecified spinal region M48.00 [facility] [address] [facility] [place] [address] July, [facility] [place] [address] [place] [id number] [place] [address] [id number] July, Spinal stenosis, unspecified spinal region M48.00 [facility] [place] [address] [id number] Jun, Type 2 diabetes mellitus with hyperglycemia E11.65 [facility] [place] [address] [id number] [id number] Jun, Spinal stenosis, unspecified spinal region M48.00 [facility] [place] [address] [place] [id number] [place] [address], [place] [id number] May, Spinal stenosis, unspecified spinal region M48.00 [facility] [place] [address] [id number] Apr, Spinal stenosis, unspecified spinal region M48.00 [facility] [address] [place] [address] [place] [address] Mar, [facility] [place] [address] [id number] Mar, Type 2 diabetes mellitus with hyperglycemia E11.65 ; RLS (restless legs syndrome) G25.81 and Spinal stenosis, unspecified spinal region M48.00 [facility] [address] [address] Mar, [facility] [place] [address] [id number] [id number] Mar, [facility] [address] [id number] Mar, [facility] [place] [address] [id number] [id number] Feb, [facility] [address] [address] Feb, [facility] [place] [address] [place] [id number] [place] [address] [id number] Feb, [facility] [place] [address] [id number] [id number] Feb, [facility] [address] [address] Feb, [facility] [address] [address] Feb, [facility] [place] [address] [place] [id number] [place] [address] [id number] Jan, [facility] [address] [id number] Dec, Diabetic polyneuropathy associated with type 2 diabetes mellitus E11.42 ; Other chronic pain G89.29 ; Essential hypertension I10 and Encounter for immunization Z23 [facility] [address] [id number] Dec, [facility] [address] [address] Nov, [facility] [address] [id number] Nov, [facility] [address] [id number] 15 Nov, 2015 Diabetes type 2, controlled E11.9 [facility] [address] [id number] Nov, Diabetes type 2, controlled E11.9 ; Other chronic pain G89.29 ; Essential hypertension I10 ; Diabetic polyneuropathy associated with type 2 diabetes mellitus E11.42 and RLS (restless legs syndrome) G25.81 [facility] [address] [address] Nov, [facility] [address] [id number] Oct, [address] [id number] Oct, [address] [id number] Oct, [facility] [address] [address] Oct, [address] [id number] Sep, [address] [id number] Sep, [facility] [address] [address] Sep, Dental examination Z01.20 [facility] [address] [address] Aug, [address] [place] [id number] Aug, [facility] [address] [place] [id number] [place] [address] Aug, [facility] [address] [place] [id number] [place] [address] July, [facility] [address] [place] [id number] [place] [address] July, [facility] [place] [facility] [address] [place] [id number] [place] [address] July, [facility] [place] [address], [place] [id number] July, [facility] [place] [address] [id number] July, [facility] [place] [address] [id number] July, [facility] [address] [place] [id number] [place] [address] July, [facility] [place] [address] [id number] Jun, Diabetes type 2, controlled E11.9 [facility] [place] [address] [id number] Jun, [facility] [address] [id number] May, Diabetes type 1, uncontrolled E10.65 [facility] [place] [address] [id number] May, [facility] [place] [address] [id number] Apr, [facility] [place] [address], [place] [id number] Apr, [facility] [place] [address] [id number] Mar, [facility] [place] [address] [id number] Mar, [facility] [place] [address] [id number] Mar, [address] [id number] Mar, Diabetes type 1, uncontrolled E10.[address] [id number] Feb, [place] [id number] [place] [address] [id number] Feb, [place] [id number] [place] [address] [id number] Feb, [place] [address] [facility]07757H [place] [id number] Jan, [address] [id number] Jan, Dysuria R30.0 and Acute cystitis with hematuria N30.[address] [id number] Jan, [address] [id number] Dec, Gastroenteritis K52.9 and Headache, unspecified headache type R51 [address] [id number] Dec, [address] [id number] Dec, Chronic back [facility] 724.5 [facility] [address] [facility] [id number] [place] [id number] Dec, [address] [id number] Nov, Chronic back pain 724.5 and Diabetes mellitus without mention of complication, type II or unspecified type, uncontrolled 250.[address] [id number] Nov, [address] [id number] Oct, [address] [id number] Sep, Diabetes mellitus without mention of complication, type II or unspecified type, uncontrolled 250.02 and Urinary tract infection 599.0 [facility] [place] [address] [id number] [id number] July, [facility] [id number] [place] [address] Jun, [facility] [address] [facility] [place] [address] Jun, [facility] [place] [address] [id number] [id number] May, [facility] [address] [address] [id number] [place] [address] May, [facility] [place] [address] [id number] [id number] May, [facility] [address] [id number] [place] [address] May, [facility] [place] [address] [place] [id number] Mar, [facility] [address] [id number] [place] [address] Mar, [facility] [id number] [place] [address] Mar, [facility] [place] [address] [id number] [id number] Mar, [facility] [place] [address] [place] [id number] Feb, [facility] [id number] [place] [address] Feb, [facility] [place] [address] [place] [id number] Feb, [facility] [id number] [place] [address] Feb, [facility] [id number] [place] [address] 08 Feb, 2014 [facility] [place] [id number] [place] [address] [id number] Feb, [facility] [place] [id number] [place] [address] [id number] Feb, [facility] [address] [facility] [place] [address] Feb, [facility] [address] [facility] [place] [address] Feb, [facility] [place] [address] [facility]07757[facility], [place] [id number] Jan, [facility] [id number] [place] [address] Jan, [facility] [place] [id number] [id number] Jan, [facility] [id number] [place] [address] Jan, [facility] [place] [address] [id number] [id number] Dec, [facility] [id number] [place] [address] Dec, [facility] [id number] [place] [address] Dec, [facility] [address] [id number] [place] [address] Dec, [facility] [place] [address] [id number] [id number] Dec, [facility] [address] [id number] [place] [address] Dec, [facility] [place] [address] [id number] [id number] Nov, [facility] [address] [id number] [place] [address] Nov, [facility] [place] [address] [id number] [id number] Oct, [facility] [address] [id number] [place] [address] Oct, [facility] [address] [id number] [place] [address] Sep, [facility] [place] [address] [id number] [place] [id number] Sep, [facility] [place] [address] [facility]757[facility] [id number] Aug, [facility] [address] [id number] [place] [address] Aug, [facility] [place] [address] [facility]07757[facility] [id number] July, [facility] [id number] [place] [address] July, [facility] [place] [address] [id number] [id number] July, [facility] [id number] [place] [address] July, [facility] [id number] [place] [address] July, [facility] [id number] [place] [address] Jun, [facility] [place] [address] [id number] [id number] Jun, [facility] [place] [address] [id number] [id number] Jun, [facility] [address] [id number] [place] [address] Jun, [facility] [id number] [place] [address] Jun, [facility] [address] [id number] [place] [address] May, [facility] [place] [address] [id number] [id number] Apr, [facility] [id number] [place] [address] Apr, [facility] [place] [address] [facility]07757[place] [id number] Apr, [facility] [id number] [place] [address] Apr, [facility] [address] [id number] [place] [address] Mar, [facility] [address] [id number] [place] [address] Mar, [facility] [address] [id number] [place] [address] Mar, [facility] [place] [address] [id number] [id number] Mar, [facility] [address] [id number] [place] [address] Mar, [facility] [id number] [place] [address] Mar, [facility] [address] [id number] [place] [address] Feb, [facility] [place] [address] [id number] [id number] Feb, [facility] [id number] [place] [address] Feb, [facility] [place] [address] [id number] [id number] Feb, [facility] [id number] [place] [address] Feb, [facility] [address] [id number] [id number] Feb, [facility] [address] [id number] [place] [address] Feb, [facility] [place] [address] [facility]07[place] [id number] Jan, [facility] [id number] [place] [address] Jan, [facility] [address] [id number] [place] [address] Dec, [facility] [place] [address] [id number] [id number] Dec, [facility] [address] [id number] [place] [address] Nov, [facility] [place] [address] [facility]07757[facility] [id number] Oct, [facility] [place] [address] [id number] [place] [id number] Oct, [facility] [place] [address] [id number] [id number] Sep, [facility] [id number] [place] [address] Sep, [facility] [place] [address] [id number] [id number] Sep, [facility] [place] [address] [id number] [id number] Sep, [facility] [place] [address] [id number] [place] [id number] Sep, [facility] [place] [address] [id number] [id number] Sep, [facility] [place] [address] [id number] [id number] Sep, [facility] [place] [facility] [id number] [place] [address] Aug, [facility] [place] [id number] [id number] Aug, [facility] [place] [facility] [id number] [place] [address] July, [facility] [place] [address] [id number] [id number] July, [facility] [place] [facility] [address] [id number] [place] [address] July, [facility] [place] [address] [id number] [id number] Jun, [facility] [place] [address] [id number] [id number] Jun, [facility] [place] [address] [facility]07757[facility] [place] [id number] Jun, [facility] [place] [facility] [id number] [place] [address] Jun, [facility] [address] [id number] [id number] May, [facility] [id number] [place] [address], [place] [id number] May, [facility] [place] [facility] [id number] [place] [address] May, [facility] [id number] [place] [address], [place] [id number] Apr, [facility] [id number] [place] [address] Apr, [facility] [place] [id number] [place] [address], [place] [id number] Apr, [facility] [place] [id number] [place] [address], [place] [id number] Apr, [facility] [place] [facility] [id number] [place] [address] Mar, [facility] [id number] [place] [address], [place] [id number] Mar, [facility] [place] [id number] [id number] Mar, [facility] [place] [address] [id number] [place] [id number] Feb, [facility] [place] [facility] [id number] [place] [address] Feb, [facility] [place] [id number] [place] [address], [place] [id number] Jan, [facility] [address] [id number] [id number] Jan, [facility] [id number] [place] [address] Jan, [facility] [id number] [place] [address] Jan, [facility] [place] [address] [id number] [id number] Jan, [facility] [id number] [place] [address] Jan, [facility] [place] [id number] [place] [address], [place] [id number] Dec, [facility] [id number] [place] [address] Dec, [facility] [place] [id number] [place] [address], [place] [id number] Dec, [facility] [address] [id number] [place] [address] Dec, [facility] [place] [id number] [place] [address], [place] [id number] Dec, [facility] [id number] [place] [address], [place] [id number] Nov, [facility] [place] [id number] [place] [address], [place] [id number] Nov, [facility] [place] [id number] [place] [address], [place] [id number] Oct, [facility] [address], [place] [id number] Oct, [facility] [place] [id number] [place] [address], [place] [id number] Sep, [facility] [address], [place] [id number] Sep, [facility] [id number] [place] [address], [place] [id number] Sep, [facility] [id number] [place] [address], [place] [id number] Aug, [facility] [address], [place] [id number] Aug, [facility] [address], [place] [id number] July, [facility] [address], [place] [id number] July, [facility] [address], [place] [id number] July, [facility] [id number] [place] [address], [place] [id number] July, [facility] [address] [id number] [place] [address] Jun, [facility] [address] [id number] [place] [id number] Jun, [facility] [address] [id number] [place] [id number] Jun, [facility] [address] [id number] [place] [id number] Jun, [facility] [place] [id number] [id number] May, [facility] [place] [address] [id number] [place] [id number] May, [facility] [place] [id number] [place] [id number] Apr, [facility] [id number] [place] [id number] Apr, [facility] [place] [id number] [place] [id number] Apr, [facility] [address] [id number], [place] [id number] Apr, [facility] [address] [id number] [id number] Apr, [facility] [place] [facility] [id number] [place] [address] Apr, [facility] [address] [id number] [id number] Apr, [facility] [id number] [place] [address], [place] [id number] Apr, [facility] [id number] [place] [address], [place] [id number] Mar, [facility] [id number] [place] [address] Feb, [facility] [id number] [place] [address] Feb, [facility] [place] [facility] [id number] [place] [address] Feb, [facility] [id number] [place] [address] Feb, [facility] [address] [id number] [place] [address] Jan, [facility] [address] [id number] [place] [address] Jan, [facility] [address] [id number] [place] [address] Jan, [facility] [address] [id number] [place] [address] Dec, [facility] [address] [id number] [place] [address] Dec, [facility] [address] [id number] [place] [address] Aug, [facility] [address] [id number] [place] [address] Aug, [facility] [address] [id number] [place] [address] Feb, [facility] [address] [id number] [place] [address] Feb, [facility] [address] [id number] [place] [address] Jan, [facility] [address] [id number] [place] [address] Jan, [facility] [address] [id number] [place] [address] Dec, [facility] [address] [id number] [place] [address] Dec, [facility] [address] [id number] [place] [address] Dec, [facility] [address] [id number] [place] [address] May, [facility] [address] [id number] [place] [address] Mar, [facility] [address] [id number] [place] [address] Feb, [facility] [address] [id number] [place] [address] Feb, [facility] [address] [id number] [place] [address] Feb, [facility] [id number] [place] [address] Jan, [facility] [id number] [place] [address] Jan, [facility] [id number] [place] [address] Oct, [facility] [id number] [place] [address] July, [facility] [id number] [place] [address] Apr, [facility] [id number] [place] [address] Jan, [facility] [address] [id number] [place] [address] Jan, IMMUNIZATIONS No Known Immunizations SOCIAL HISTORY [...] History surgeries, childbirth Hospitalization History [facility] [place]- Possible Stroke Hospitalization History Hospital stay due to acute renal didier lure 10/2018
--- OUTSIDE RECORDS SUMMARY | 2019-06-03 14:44 | XMS REPORT ---
Author Author Emelyn Lira Organization [facility] Address [address] [place] [address] Care Team Providers Care Drafter Tool Design Name Role Phone [place] Lira Unavailable PROBLEMS Type Condition ICD9-CM Code MEP78-JS Code Onset Dates Condition S tatus SNOMED Code Problem Essential hypertension I10 Active 00435360 Problem RLS (restless legs syndrome) G25.81 A ctive 96637816 Problem Other chronic pain G89.29 Active 8 1173629 Problem Diabetic polyneuropathy associated with type 2 d iabetes mellitus E11.42 Active 70095170 Problem Spinal stenosis, unspecified spinal region M48.00 Active 92900706 Problem Encounter for immunization Z23 Act nicole 587053939 Problem Type 2 diabetes mellitus with other specified complication E11.69 Active 13675425257121 Problem Reactive depression F32.9 Active 51605333 Problem Hypoglycemia E16.2 Active 1844126 03 Problem Moderate episode of recurrent major depressive disorder F33.1 Active 407492633 Problem Hyperlipidemia, unspecified E78.5 Ac tive 03472429 Problem Falling R29.6 Active 089235966 Problem Type 2 diabetes mellitus with hyperglycemia E11.65 Active 649215774245396 Problem 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 Active 802996337 Problem Type 2 diabetes mellitus with other diabetic kid rory complication E11.29 Active 06635748 Problem Unsteady gait R26.81 Active 498358 008 Problem Moderate episode of recurrent major depressive disorder F33.1 Active 421936293 ALLERGIES No Information ENCOUNTERS Encounter Location Date Diagnosis [address] [address] 2 6 May, [address] [address] 0 May, [address] [address] 2 6 Apr, 2019 Type 2 diabetes mellitus with other specified complication E11.69 ; Essential hypertension I10 and Hyperlipidemia, unspecified E78.[address] [place] [address] 1 1 Apr, 2019 Spinal stenosis, unspecified spinal region M48.00 [facility] [id number] [place] [address] 04 Apr, [address] [place] [address] 1 5 Mar, 2019 Spinal stenosis, unspecified spinal region M48.[address] [id number] Feb, Essential hypertension I10 ; Type 2 diabetes mellitus with hyperglycemia E11.65 ; Falling R29.6 and Spinal stenosis, unspecified spinal region M48.[address] [id number] Feb, Vertigo R42 and Laceration of right foot, initial encounter S91.311A [address] [id number] Jan, Essential hypertension I10 and Type 2 diabetes mellitus with hyperglycemia E11.[address] [id number] Jan, Spinal stenosis, unspecified spinal region M48.[address] [id number] Jan, Essential hypertension I10 and Spinal stenosis, unspecified spinal region M48.[address] [id number] Jan, [address] [id number] Jan, [address] [id number] Dec, Type 2 diabetes mellitus with other specified complication E11.69 and Other chronic pain G89.[address] [id number] Dec, Spinal stenosis, unspecified spinal region M48.00 [facility] [id number] [place] [address] 14 Dec, 2018 Type 2 diabetes mellitus with other diab etic kidney complication E11.[address] [id number] 14 Dec, 2018 Type 2 diabetes mellitus with other diabetic kidney complication E11.29 ; Fatigue, unspecified type R53.83 ; Moderate episode of recurrent major depressive disorder F33.1 and Acute cystitis with hematuria N30.[address] [id number] 08 Dec, [address] [facility] [address] [facility] [id number] [address] [place] [address] 07 Dec, 2018 Injury of head, initial enco unter S09.90XA ; Unsteady gait R26.81 and Hyperglycemia R73.[address] [id number] Nov, Spinal stenosis, unspecified spinal region M48.[address] [id number] 17 Nov, 2018 Type 2 diabetes mellitus with other diabetic kidney complication E11.29 and detention current use of insulin Z79.[address] [id number] Nov, Acute renal failure, unspecified acute renal failure type N17.9 [facility] [address] [address] [id number] [place] [id number] Oct, Diabetic polyneuropathy associated with type 2 diabetes mellitus E11.42 ; Essential hypertension I10 ; Acute renal failure, unspecified acute renal failure type N17.9 and Spinal stenosis, unspecified spinal region M48.[address] [id number] Oct, Essential hypertension I10 ; Diabetic polyneuropathy associated with type 2 diabetes mellitus E11.42 and Acute renal failure, unspecified acute renal failure type N17.9 [facility] [id number] [place] [id number] Oct, [address] [id number] Oct, [facility] [id number] [place] [address], [place] [id number] Oct, [facility] [address], [place] [id number] Oct, Essential hypertension I10 ; Diabetic polyneuropathy associated with type 2 diabetes mellitus E11.42 and Acute renal failure, unspecified acute renal failure type N17.9 [facility] [address], [place] [id number] Oct, Spinal stenosis, unspecified spinal region M48.00 [facility] [address], [place] [id number] Sep, Spinal stenosis, unspecified spinal region M48.00 [facility] [address], [place] [id number] Sep, Type 2 diabetes mellitus with other specified complication E11.69 ; Vertigo R42 and Spinal stenosis, unspecified spinal region M48.00 [facility] [address], [place] [id number] Sep, Spinal stenosis, unspecified spinal region M48.00 [facility] [address], [place] [id number] Sep, Spinal stenosis, unspecified spinal region M48.00 [facility] [address], [place] [id number] Aug, Spinal stenosis, unspecified spinal region M48.00 [facility] [address], [place] [id number] July, Diabetic polyneuropathy associated with type 2 diabetes mellitus E11.42 [facility] [address], [place] [id number] July, Spinal stenosis, unspecified spinal region M48.00 [facility] [address], [place] [id number] July, Spinal stenosis, unspecified spinal region M48.00 [facility] [address], [place] [id number] Jun, Spinal stenosis, unspecified spinal region M48.00 [facility] [address], [place] [id number] Jun, Diabetic polyneuropathy associated with type 2 diabetes mellitus E11.42 [facility] [address] [facility] [id number] May, Diabetic polyneuropathy associated with type 2 diabetes mellitus E11.42 [facility] [address] [facility] [facility] [id number] May, [facility] [place] [address] [facility] [address] May, Spinal stenosis, unspecified spinal region M48.00 [facility] [address] [facility] [facility] [address] Apr, Spinal stenosis, unspecified spinal region M48.00 [facility] [address] [facility] [address] [place] [id number] Apr, [facility] [address] [facility] [id number] [address] [place] [address] Apr, Puncture wound T14.8XXA ; Ab rasion T14.8XXA and Encounter for immunization Z23 [address] [id number] Mar, Spinal stenosis, unspecified spinal region M48.[address] [id number] Feb, Spinal stenosis, unspecified spinal region M48.[address] [id number] Jan, Type 2 diabetes mellitus with hyperglycemia E11.65 ; Diabetes type 2, controlled E11.9 ; Spinal stenosis, unspecified spinal region M48.00 and Encounter for immunization Z23 [facility] [address]505[address] [place] [address] Dec, Spinal stenosis, unspecified spinal joesph on M48.00 [facility] [address] [address] Dec, [facility] [address] [address] Dec, [facility] [address] [place] [address] Dec, [facility] [address], [place] [id number] Nov, [facility] [address], [place] [id number] Nov, Spinal stenosis, unspecified spinal region M48.00 [facility] [address], [place] [id number] Oct, Spinal stenosis, unspecified spinal region M48.00 [facility] [address], [place] [id number] Oct, Spinal stenosis, unspecified spinal region M48.00 [facility] [address], [place] [id number] Oct, [facility] [address], [place] [id number] Oct, Diabetic polyneuropathy associated with type 2 diabetes mellitus E11.42 ; RLS (restless legs syndrome) G25.81 ; Spinal stenosis, unspecified spinal region M48.00 and Acute cystitis with hematuria N30.01 [facility] [address] [id number] Oct, [facility] [address] [id number] Oct, Spinal stenosis, unspecified spinal region M48.00 [facility] [address] [id number] Sep, Diabetic polyneuropathy associated with type 2 diabetes mellitus E11.42 [facility] [address] [place] [address] Sep, [facility] [address] [id number] Sep, Spinal stenosis, unspecified spinal region M48.00 [facility] [address] [address] Aug, [facility] [address] [id number] Aug, Spinal stenosis, unspecified spinal region M48.00 [facility] [address] [id number] Aug, Spinal stenosis, unspecified spinal region M48.00 [facility] [id number] [place] [address] [id number] July, [facility] [address] [id number] July, Diabetic polyneuropathy associated with type 2 diabetes mellitus E11.42 ; Type 2 diabetes mellitus with hyperglycemia E11.65 ; RLS (restless legs syndrome) G25.81 and Essential hypertension I10 [facility] [address] [id number] July, Spinal stenosis, unspecified spinal region M48.00 [facility] [address] [id number] July, [facility] [address] [id number] Jun, Type 2 diabetes mellitus with other specified complication E11.69 [facility] [address] [id number] Jun, Spinal stenosis, unspecified spinal region M48.00 [facility] [address] [id number] Jun, Hypoglycemia E16.2 [facility] [address] [id number] May, Hypoglycemia E16.2 ; Acute cystitis with hematuria N30.01 and Essential hypertension I10 [facility] [address] [facility] [id number] [address] [place] [address] May, [facility] [address] [id number] May, Spinal stenosis, unspecified spinal region M48.00 [facility] [address] [id number] May, Reactive depression F32.9 [facility] [address] [id number] May, [facility] [address] [id number] Apr, [facility] [address] [facility] [id number] Apr, [facility] [address] [facility] [address] [id number] [id number] Apr, [facility] [id number] [place] [id number] Apr, [address] [id number] Apr, Spinal stenosis, unspecified spinal region M48.00 [place] [address] [id number] Apr, Type 2 diabetes mellitus with other specified complication E11.69 ; Spinal stenosis, unspecified spinal region M48.00 ; Reactive depression F32.9 and Essential hypertension I10 [facility] [address] [facility]07757[facility] [id number] Apr, [address] [id number] Mar, Spinal stenosis, unspecified spinal region M48.[address] [id number] Feb, Acute non-recurrent maxillary sinusitis J01.00 and Essential hypertension I10 [address] [id number] Feb, Spinal stenosis, unspecified spinal region M48.[address] [id number] Feb, Type 2 diabetes mellitus with other specified complication E11.[address] [id number] Feb, Type 2 diabetes mellitus with other specified complication E11.69 and Essential hypertension I10 [address] [id number] Feb, [facility] [address] [id number] Feb, [facility] [address] [id number] Jan, Spinal stenosis, unspecified spinal region M48.[address], [place] [id number] Jan, Diabetic polyneuropathy associated with type 2 diabetes mellitus E11.[address] [id number] Jan, Diabetic polyneuropathy associated with type 2 diabetes mellitus E11.[address] [id number] Jan, Type 2 diabetes mellitus with hyperglycemia E11.65 ; Type 2 diabetes mellitus with other specified complication E11.69 ; Spinal stenosis, unspecified spinal region M48.00 and Essential hypertension I10 [address] [id number] Jan, Diabetic polyneuropathy associated with type 2 diabetes mellitus E11.[address] [id number] Dec, [address] [id number] Dec, Diabetic polyneuropathy associated with type 2 diabetes mellitus E11.42 ; Type 2 diabetes mellitus with other specified complication E11.69 ; Hyperlipidemia, unspecified E78.5 ; Thyroid disorder E07.9 and Thyroid disorder screening Z13.[address] [id number] Dec, Diabetic polyneuropathy associated with type [address] [facility] [address] [facility] [place] [address] Dec, Diabetic polyneuropathy associated with type 2 diabetes mellitus E11.[address] [id number] Dec, Spinal stenosis, unspecified spinal region M48.[address] [id number] Dec, [address] [id number] 18 Nov, 2016 Diabetic polyneuropathy associated with type 2 diabetes mellitus E11.[address] [id number] 15 Nov, 2016 Other chronic pain G89.[address] [place] [id number] Nov, Spinal stenosis, unspecified spinal region M48.00 [facility] [id number] [place] [address] [id number] Oct, Spinal stenosis, unspecified spinal region M48.00 ; Essential hypertension I10 ; RLS (restless legs syndrome) G25.81 and Diabetic polyneuropathy associated with type 2 diabetes mellitus E11.42 [facility] [address] [id number] Oct, Spinal stenosis, unspecified spinal region M48.00 [facility] [address] [id number] Sep, Diabetic polyneuropathy associated with type 2 diabetes mellitus E11.42 ; RLS (restless legs syndrome) G25.81 ; Spinal stenosis, unspecified spinal region M48.00 and Essential hypertension I10 [facility] [address] [id number] Sep, [facility] [address] [id number] Sep, Spinal stenosis, unspecified spinal region M48.00 [facility] [address] [id number] Sep, [facility] [address] [id number] Aug, Spinal stenosis, unspecified spinal region M48.00 [facility] [address] [facility] [place] [address] July, [facility] [address] [id number] July, Spinal stenosis, unspecified spinal region M48.00 [facility] [address] [id number] Jun, Type 2 diabetes mellitus with hyperglycemia E11.65 [facility] [address] [id number] Jun, Spinal stenosis, unspecified spinal region M48.00 [facility] [address] [id number] May, Spinal stenosis, unspecified spinal region M48.00 [facility] [address] [place], [place] [id number] Apr, Spinal stenosis, unspecified spinal region M48.00 [facility] [address] [address] Mar, [facility] [id number] [place] [address] [id number] Mar, Type 2 diabetes mellitus with hyperglycemia E11.65 ; RLS (restless legs syndrome) G25.81 and Spinal stenosis, unspecified spinal region M48.00 [facility] [address] [address] Mar, [facility] [address] [id number] Mar, [facility] [place] [facility] [address] [facility] [id number] Mar, [facility] [address] [id number] Feb, [facility] [address] [address] Feb, [facility] [id number] [place] [address] [id number] Feb, [facility] [address] [id number] Feb, [facility] [address] [address] Feb, [facility] [address] [address] Feb, [facility] [address] [id number] Jan, [facility] [address] [id number] Dec, Diabetic polyneuropathy associated with type 2 diabetes mellitus E11.42 ; Other chronic pain G89.29 ; Essential hypertension I10 and Encounter for immunization Z23 [facility] [address] [id number] Dec, [facility] [address] [address] Nov, [address] [id number] Nov, [facility] [id number] 15 Nov, 2015 Diabetes type 2, controlled E11.9 [facility] [address] [id number] 14 Nov, 2015 Diabetes type 2, controlled E11.9 ; Other chronic pain G89.29 ; Essential hypertension I10 ; Diabetic polyneuropathy associated with type 2 diabetes mellitus E11.42 and RLS (restless legs syndrome) G25.81 [facility] [address] [address] Nov, [facility] [address] [id number] Oct, [address] [id number] Oct, [address] [id number] Oct, [facility] [address] [address] Oct, [address] [id number] Sep, [address] [id number] Sep, [facility] [address] [address] Sep, Dental examination Z01.20 [facility] [address] [address] Aug, [address] [id number] Aug, [facility] [address] [address] Aug, [facility] [address] [address] July, [facility] [address] [facility] [place] [address] July, [facility] [address] [facility] [place] [address] July, [facility] [place] [id number] [place] [address], [place] [id number] July, [facility] [address] [id number] July, [facility] [place] [address], [place] [id number] July, [facility] [address] [facility] [place] [address] July, [facility] [place] [address], [place] [id number] Jun, Diabetes type 2, controlled E11.9 [facility] [place] [address], [place] [id number] Jun, [facility] [place] [address], [place] [id number] May, Diabetes type 1, uncontrolled E10.65 [facility] [place] [address], [place] [id number] May, [facility] [address], [place] [id number] Apr, [facility] [address], [place] [id number] Apr, [facility] [address] [id number] Mar, [facility] [place] [address] [id number] Mar, [facility] [address], [place] [id number] Mar, [facility] [address], [place] [id number] Mar, Diabetes type 1, uncontrolled E10.65 [facility] [place] [address], [place] [id number] Feb, [facility] [place] [address], [place] [id number] Feb, [address] [id number] Feb, [facility] [address] [facility]07[address] [place] [address] Jan, [address] [id number] Jan, Dysuria R30.0 and Acute cystitis with hematuria N30.[address] [id number] Jan, [address] [id number] Dec, Gastroenteritis K52.9 and Headache, unspecified headache type R51 [address] [id number] Dec, [address] [id number] Dec, Chronic back pain 724.[address] [id number] [id number] Dec, [address] [place] [address] [id number] Nov, Chronic back pain 724.5 and Diabetes mellitus without mention of complication, type II or unspecified type, uncontrolled [id number] [place] [id number] Nov, [address] [id number] Oct, [address] [id number] Sep, Diabetes mellitus without mention of complication, type II or unspecified type, uncontrolled 250.02 and Urinary tract infection 599.[address] [id number] July, [facility] [address] [facility] [place] [address] Jun, [facility] [address] [address] Jun, [facility] [address] [facility]07757[facility] [id number] May, [facility] [id number] [place] [address] May, [facility] [address] [id number] [id number] May, [facility] [address] [facility] [place] [address] May, [facility] [address] [id number] [id number] Mar, [facility] [id number] [place] [address] Mar, [facility] [id number] [place] [address] Mar, [facility] [address] [id number] [id number] Mar, [facility] [address] [id number] [id number] Feb, [facility] [id number] [place] [address] Feb, [facility] [address] [id number] [id number] Feb, [facility] [id number] [place] [address] Feb, [facility] [id number] [place] [address] Feb, [facility] [address] [place], [place] [id number] Feb, [facility] [address] [id number] [id number] Feb, [facility] [id number] [place] [address] Feb, [facility] [address] [facility] [place] [address] Feb, [facility] [address] 359[place], [place] [id number] Jan, [facility] [address] [facility] [place] [address] Jan, [facility] [address] [id number] [id number] Jan, [facility] [address] [facility] [place] [address] Jan, [facility] [address] [id number] [id number] Dec, [facility] [address] [facility] [place] [address] Dec, [facility] [address] [facility] [place] [address] Dec, [facility] [address] [facility] [place] [address] Dec, [facility] [address] 359[place]757[place], [place] [id number] Dec, [facility] [address] [facility] [place] [address] Dec, [facility] [address] [id number] [id number] Nov, [facility] [address] [facility] [place] [address] Nov, [facility] [address] [id number], [place] [id number] Oct, [facility] [id number] [place] [address] Oct, [facility] [address] [facility] [place] [address] Sep, [facility] [address] [facility] [id number] Sep, [facility] [address] [id number] [id number] Aug, [facility] [address] [facility] [place] [address] Aug, [facility] [id number] [place] [id number] July, [facility] [address] [id number] [place] [address] July, [facility] [place] [address] [id number] [place] [id number] July, [facility] [address] [id number] [place] [address] July, [facility] [address] [id number] [place] [address] July, [facility] [address] [id number] [place] [address] Jun, [facility] [id number] [id number] Jun, [facility] [address] [id number] [id number] Jun, [facility] [id number] [place] [address] Jun, [facility] [address] [id number] [place] [address] Jun, [facility] [id number] [place] [address] May, [facility] [address] [id number] [id number] Apr, [facility] [address] [id number] [place] [address] Apr, [facility] [address] [id number] [id number] Apr, [facility] [address] [id number] [place] [address] Apr, [facility] [id number] [place] [address] Mar, [facility] [address] [id number] [place] [address] Mar, [facility] [address] [id number] [place] [address] Mar, [facility] [address] [id number] [id number] Mar, [facility] [place] [facility] [id number] [place] [address] Mar, [facility] [id number] [place] [address] Mar, [facility] [place] [facility] [id number] [place] [address] Feb, [facility] [address] [id number] [id number] Feb, [facility] [place] [facility] [id number] [place] [address] Feb, [facility] [address] [id number] [id number] Feb, [facility] [place] [facility] [id number] [place] [address] Feb, [facility] [id number] [id number] Feb, [facility] [id number] [place] [address] Feb, [facility] [id number] [id number] Jan, [facility] [id number] [place] [address] Jan, [facility] [id number] [place] [address] Dec, [facility] [address] [id number] [id number] Dec, [facility] [id number] [place] [address] Nov, [facility] [id number] [id number] Oct, [facility] [id number] [id number] Oct, [facility] [id number] [place] [address], [place] [id number] Sep, [facility] [id number] [place] [address] Sep, [facility] [address] [id number] [id number] Sep, [facility] [address] [id number] [id number] Sep, [facility] [id number] [place] [address], [place] [id number] Sep, [facility] [address] [id number] [id number] Sep, [facility] [id number] [place] [address], [place] [id number] Sep, [facility] [id number] [place] [address] Aug, [facility] [address] [id number] [id number] Aug, [facility] [address] [address] July, [facility] [id number] [place] [address], [place] [id number] July, [facility] [id number] [place] [address] July, [facility] [address] [id number] [id number] Jun, [facility] [id number] [place] [address], [place] [id number] Jun, [facility] [id number] [place] [address], [place] [id number] Jun, [facility] [address] [address] Jun, [facility] [id number] [place] [address], [place] [id number] May, [facility] [id number] [place] [address], [place] [id number] May, [facility] [address] [address] May, [facility] [address] [id number] [id number] Apr, [facility] [id number] [place] [address] Apr, [facility] [address] [id number] [id number] Apr, [facility] [id number] [place] [address], [place] [id number] Apr, [facility] [id number] [place] [address] Mar, [facility] [address] [id number] [id number] Mar, [facility] [id number] [place] [address], [place] [id number] Mar, [facility] [id number] [place] [address], [place] [id number] Feb, [facility] [place] [facility] [address] [address] Feb, [facility] [address] [id number] [id number] Jan, [facility] [id number] [place] [address], [place] [id number] Jan, [facility] [id number] [place] [address] Jan, [facility] [address] [address] Jan, [facility] [id number] [place] [address] [id number] Jan, [facility] [address] [address] Jan, [facility] [id number] [place] [address], [place] [id number] Dec, [facility] [address] [address] Dec, [facility] [id number] [place] [address], [place] [id number] Dec, [facility] [place] [facility] [address] [id number] [place] [address] Dec, [facility] [id number] [place] [address], [place] [id number] Dec, [facility] [id number] [place] [address], [place] [id number] Nov, [facility] [id number] [place] [address], [place] [id number] Nov, [facility] [address], [place] [id number] Oct, [facility] [id number] [place] [address], [place] [id number] Oct, [facility] [id number] [place] [address], [place] [id number] Sep, [facility] [id number] [place] [address], [place] [id number] Sep, [facility] [address], [place] [id number] Sep, [facility] [id number] [place] [address], [place] [id number] Aug, [facility] [id number] [place] [address], [place] [id number] Aug, [facility] [id number] [place] [address], [place] [id number] July, [facility] [id number] [place] [address], [place] [id number] July, [facility] [address], [place] [id number] July, [facility] [id number] [place] [address], [place] [id number] July, [facility] [place] [facility] [address] [id number] [place] [address] Jun, [facility] [id number] [place] [address], [place] [id number] Jun, [facility] [id number] [place] [address], [place] [id number] Jun, [facility] [address], [place] [id number] Jun, [facility] [address] [id number] [id number] May, [facility] [address] [id number] [id number] May, [facility] [address] [id number] [id number] Apr, [facility] [address] [id number] [id number] Apr, [facility] [address] [id number] [id number] Apr, [facility] [address] [id number] [id number] Apr, [facility] [address] [id number] [id number] Apr, [facility] [id number] [place] [address] Apr, [facility] [id number] [id number] Apr, [facility] [id number], [place] [id number] Apr, [facility] [id number], [place] [id number] Mar, [facility] [id number] [place] [address] Feb, [facility] [address] [address] Feb, [facility] [id number] [place] [address] Feb, [facility] [address] [address] Feb, [facility] [address] [address] Jan, [facility] [address] [address] Jan, [facility] [address] [address] Jan, [facility] [address] [facility] [id number] [facility] [place] [address] Dec, [facility] [address] [id number] [place] [address] Dec, [facility] [address] [id number] [place] [address] Aug, [facility] [address] [id number] [place] [address] 16 Aug, 2010 [facility] [address] [id number] [facility] [place] [address] 30 Feb, 2010 [facility] [address] [id number] [place] [address] Feb, [facility] [address] [id number] [place] [address] Jan, [facility] [address] [id number] [place] [address] Jan, [facility] [address] [id number] [place] [address] Dec, [facility] [address] [id number] [place] [address] Dec, [facility] [address] [id number] [place] [address] Dec, [facility] [address] [id number] [place] [address] May, [facility] [address] [id number] [place] [address] Mar, [facility] [address] [id number] [place] [address] Feb, [facility] [address] [id number] [place] [address] Feb, [facility] [address] [id number] [place] [address] Feb, [facility] [address] [id number] [place] [address] 17 Jan, 2009 [facility] [address] [id number] [place] [address] Jan, [facility] [address] [id number] [place] [address] Oct, [facility] [address] [id number] [place] [address] July, [facility] [address] [id number] [place] [address] Apr, [facility] [address] [id number] [place] [address] Jan, [facility] [address] [id number] [place] [address] Jan, IMMUNIZATIONS No Known Immunizations SOCIAL HISTORY [...] History surgeries, childbirth Hospitalization History [facility] [place]- Possible Stroke Hospitalization History Hospital stay due to acute renal didier lure 10/2018
--- OUTSIDE RECORDS SUMMARY | 2019-06-03 14:44 | XMS REPORT ---
Author Author Emelyn Lira Organization [facility] Address [address] [place] [address] Care Team Providers Care Marketing Services Vice President Name Role Phone [place] Lira Unavailable PROBLEMS Type Condition ICD9-CM Code IPD31-HW Code Onset Dates Condition S tatus SNOMED Code Problem Essential hypertension I10 Active 14729000 Problem RLS (restless legs syndrome) G25.81 A ctive 81895087 Problem Other chronic pain G89.29 Active 8 7767147 Problem Diabetic polyneuropathy associated with type 2 d iabetes mellitus E11.42 Active 13388042 Problem Spinal stenosis, unspecified spinal region M48.00 Active 50782757 Problem Encounter for immunization Z23 Act nicole 160976022 Problem Type 2 diabetes mellitus with other specified complication E11.69 Active 13528071200198 Problem Reactive depression F32.9 Active 00811261 Problem Hypoglycemia E16.2 Active 4078047 03 Problem Moderate episode of recurrent major depressive disorder F33.1 Active 513864240 Problem Hyperlipidemia, unspecified E78.5 Ac tive 96867914 Problem Falling R29.6 Active 910288462 Problem Type 2 diabetes mellitus with hyperglycemia E11.65 Active 394527480023308 Problem 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 Active 077451503 Problem Type 2 diabetes mellitus with other diabetic kid rory complication E11.29 Active 40440305 Problem Unsteady gait R26.81 Active 986844 008 Problem Moderate episode of recurrent major depressive disorder F33.1 Active 210062837 ALLERGIES No Information ENCOUNTERS Encounter Location Date Diagnosis [address] [address] 2 May, [address] [address] 2 Apr, Type 2 diabetes mellitus with other specified complication E11.69 ; Essential hypertension I10 and Hyperlipidemia, unspecified E78.5 [place] [address] [address] [facility] [place] [address] 1 1 Apr, 2019 Spinal stenosis, unspecified spinal region M48.00 [facility] [address] [address] 04 Apr, [address] [facility] [place] [place] [address] 1 5 Mar, 2019 Spinal stenosis, unspecified spinal region M48.[address] [id number] Feb, Essential hypertension I10 ; Type 2 diabetes mellitus with hyperglycemia E11.65 ; Falling R29.6 and Spinal stenosis, unspecified spinal region M48.[address] [id number] Feb, Vertigo R42 and Laceration of right foot, initial encounter S91.311A [address] [id number] Jan, Essential hypertension I10 and Type 2 diabetes mellitus with hyperglycemia E11.65 [facility] [address] [id number] Jan, Spinal stenosis, unspecified spinal region M48.[address] [id number] Jan, Essential hypertension I10 and Spinal stenosis, unspecified spinal region M48.[address] [id number] Jan, [address] [id number] Jan, [facility] [address] [id number] Dec, Type 2 diabetes mellitus with other specified complication E11.69 and Other chronic pain G89.[address] [id number] Dec, Spinal stenosis, unspecified spinal region M48.00 [facility] [id number] [place] [address] 14 Dec, 2018 Type 2 diabetes mellitus with other diab etic kidney complication E11.[address] [id number] 14 Dec, 2018 Type 2 diabetes mellitus with other diabetic kidney complication E11.29 ; Fatigue, unspecified type R53.83 ; Moderate episode of recurrent major depressive disorder F33.1 and Acute cystitis with hematuria N30.[address] [id number] 08 Dec, 2018 [facility] [address] [facility] [id number] [address] [place] [address] 07 Dec, 2018 Injury of head, initial enco unter S09.90XA ; Unsteady gait R26.81 and Hyperglycemia R73.[address] [id number] Nov, Spinal stenosis, unspecified spinal region M48.[address] [id number] 17 Nov, 2018 Type 2 diabetes mellitus with other diabetic kidney complication E11.29 and USP current use of insulin Z79.[address] [id number] Nov, Acute renal failure, unspecified acute renal failure type N17.9 [facility] [id number] [place] [id number] Oct, Diabetic polyneuropathy associated with type 2 diabetes mellitus E11.42 ; Essential hypertension I10 ; Acute renal failure, unspecified acute renal failure type N17.9 and Spinal stenosis, unspecified spinal region M48.[address] [id number] Oct, Essential hypertension I10 ; Diabetic polyneuropathy associated with type 2 diabetes mellitus E11.42 and Acute renal failure, unspecified acute renal failure type N17.9 [facility] [address] [id number] [place] [id number] Oct, [address] [id number] Oct, [address] [id number] Oct, [facility] [place] [address] [place] [id number] [place] [id number] Oct, Essential hypertension I10 ; Diabetic polyneuropathy associated with type 2 diabetes mellitus E11.42 and Acute renal failure, unspecified acute renal failure type N17.9 [facility] [place] [address] [place] [address] [facility] [id number] Oct, Spinal stenosis, unspecified spinal region M48.00 [facility] [place] [address], [place] [id number] Sep, Spinal stenosis, unspecified spinal region M48.00 [facility] [place] [address], [place] [id number] Sep, Type 2 diabetes mellitus with other specified complication E11.69 ; Vertigo R42 and Spinal stenosis, unspecified spinal region M48.00 [facility] [place] [address] [place] [address] [id number] [place] [address], [place] [id number] Sep, Spinal stenosis, unspecified spinal region M48.00 [facility] [place] [address], [place] [id number] Sep, Spinal stenosis, unspecified spinal region M48.00 [facility] [place] [address], [place] [id number] Aug, Spinal stenosis, unspecified spinal region M48.00 [facility] [place] [address] [place] [address] [id number] [place] [address], [place] [id number] July, Diabetic polyneuropathy associated with type 2 diabetes mellitus E11.42 [facility] [place] [address], [place] [id number] July, Spinal stenosis, unspecified spinal region M48.00 [facility] [place] [address] [place] [id number] [place] [address], [place] [id number] July, Spinal stenosis, unspecified spinal region M48.00 [facility] [place] [address], [place] [id number] Jun, Spinal stenosis, unspecified spinal region M48.00 [facility] [place] [address] [place] [id number] [place] [address], [place] [id number] Jun, Diabetic polyneuropathy associated with type 2 diabetes mellitus E11.42 [facility] [place] [address] [place] [address] [address] May, Diabetic polyneuropathy associated with type 2 diabetes mellitus E11.42 [address] [place] [address] [id number] May, [facility] [address] [id number] May, Spinal stenosis, unspecified spinal region M48.00 [address] [place] [address] [id number] Apr, Spinal stenosis, unspecified spinal region M48.00 [facility] [address] [facility] [address] [id number] [place] [id number] Apr, [facility] [address] [facility] [id number] [place] [address] Apr, Puncture wound T14.8XXA ; Ab rasion T14.8XXA and Encounter for immunization Z23 [address] [id number] Mar, Spinal stenosis, unspecified spinal region M48.[address] [id number] Feb, Spinal stenosis, unspecified spinal region M48.[address] [id number] Jan, Type 2 diabetes mellitus with hyperglycemia E11.65 ; Diabetes type 2, controlled E11.9 ; Spinal stenosis, unspecified spinal region M48.00 and Encounter for immunization Z23 [facility] [address] [address] Dec, Spinal stenosis, unspecified spinal joesph on M48.00 [facility] [address] [address] Dec, [facility] [address] [address] Dec, [facility] [address] [address] Dec, [address] [id number] Nov, [facility] [place] [address], [place] [id number] Nov, Spinal stenosis, unspecified spinal region M48.00 [facility] [place] [address], [place] [id number] Oct, Spinal stenosis, unspecified spinal region M48.00 [facility] [place] [address], [place] [id number] Oct, Spinal stenosis, unspecified spinal region M48.00 [facility] [address], [place] [id number] Oct, [facility] [place] [address], [place] [id number] Oct, Diabetic polyneuropathy associated with type 2 diabetes mellitus E11.42 ; RLS (restless legs syndrome) G25.81 ; Spinal stenosis, unspecified spinal region M48.00 and Acute cystitis with hematuria N30.01 [facility] [place] [address], [place] [id number] Oct, [facility] [place] [address], [place] [id number] Oct, Spinal stenosis, unspecified spinal region M48.00 [facility] [place] [address], [place] [id number] Sep, Diabetic polyneuropathy associated with type 2 diabetes mellitus E11.42 [facility] [address] [address] Sep, [facility] [place] [address] [id number] Sep, Spinal stenosis, unspecified spinal region M48.00 [facility] [address] [address] Aug, [facility] [place] [address] [id number] Aug, Spinal stenosis, unspecified spinal region M48.00 [facility] [place] [address] [id number] Aug, Spinal stenosis, unspecified spinal region M48.[address] [facility] [address] [id number] July, [facility] [address] [id number] July, Diabetic polyneuropathy associated with type 2 diabetes mellitus E11.42 ; Type 2 diabetes mellitus with hyperglycemia E11.65 ; RLS (restless legs syndrome) G25.81 and Essential hypertension I10 [facility] [address] [id number] July, Spinal stenosis, unspecified spinal region M48.00 [facility] [address] [id number] July, [facility] [address] [id number] Jun, Type 2 diabetes mellitus with other specified complication E11.69 [facility] [address] [id number] Jun, Spinal stenosis, unspecified spinal region M48.[address] [id number] Jun, Hypoglycemia E16.2 [facility] [address] [id number] May, Hypoglycemia E16.2 ; Acute cystitis with hematuria N30.01 and Essential hypertension I10 [facility] [address] [facility] [id number] [address] [place] [address] May, [facility] [place] [id number] [place] [address] [id number] May, Spinal stenosis, unspecified spinal region M48.00 [facility] [place] [id number] [place] [address] [id number] May, Reactive depression F32.9 [facility] [address] [id number] May, [facility] [place] [id number] [place] [address] [id number] Apr, [facility] [address] [id number] [place] [id number] Apr, [facility] [address] [address] [id number] [place] [id number] Apr, [facility] [address] [id number] Apr, [address] [id number] Apr, Spinal stenosis, unspecified spinal region M48.[address] [id number] Apr, Type 2 diabetes mellitus with other specified complication E11.69 ; Spinal stenosis, unspecified spinal region M48.00 ; Reactive depression F32.9 and Essential hypertension I10 [facility] [address] [id number] [place] [id number] Apr, [address] [id number] Mar, Spinal stenosis, unspecified spinal region M48.[address] [id number] Feb, Acute non-recurrent maxillary sinusitis J01.00 and Essential hypertension I10 [address] [id number] Feb, Spinal stenosis, unspecified spinal region M48.[address] [id number] Feb, Type 2 diabetes mellitus with other specified complication E11.[address] [id number] Feb, Type 2 diabetes mellitus with other specified complication E11.69 and Essential hypertension I10 [address] [id number] Feb, [address] [id number] Feb, [address] [id number] Jan, Spinal stenosis, unspecified spinal region M48.[address] [id number] Jan, Diabetic polyneuropathy associated with type 2 diabetes mellitus E11.42 [place] [id number] 14 Jan, 2017 Diabetic polyneuropathy associated with type 2 diabetes mellitus E11.42 [place] [id number] [place] [id number] 06 Jan, 2017 Type 2 diabetes mellitus with hyperglycemia E11.65 ; Type 2 diabetes mellitus with other specified complication E11.69 ; Spinal stenosis, unspecified spinal region M48.00 and Essential hypertension I10 [address] [id number] Jan, Diabetic polyneuropathy associated with type 2 diabetes mellitus E11.[address] [id number] Dec, [address] [id number] 30 Dec, 2016 Diabetic polyneuropathy associated with type 2 diabetes mellitus E11.42 ; Type 2 diabetes mellitus with other specified complication E11.69 ; Hyperlipidemia, unspecified E78.5 ; Thyroid disorder E07.9 and Thyroid disorder screening Z13.29 [place] [id number] [place] [address] [id number] Dec, Diabetic polyneuropathy associated with type 2 diabetes mellitus E11.42 [facility] [address] [facility] [place] [address] Dec, Diabetic polyneuropathy associated with type 2 diabetes mellitus E11.42 [place] [id number] [place] [address] [id number] Dec, Spinal stenosis, unspecified spinal region M48.[address] [id number] Dec, [place] [id number] [place] [address] [id number] 18 Nov, 2016 Diabetic polyneuropathy associated with type 2 diabetes mellitus E11.[address] [id number] 15 Nov, 2016 Other chronic pain G89.[address] [id number] 14 Nov, 2016 Spinal stenosis, unspecified spinal region M48.[address] [place] [address] [place] [address] [id number] 16 Oct, 2016 Spinal stenosis, unspecified spinal region M48.00 ; Essential hypertension I10 ; RLS (restless legs syndrome) G25.81 and Diabetic polyneuropathy associated with type 2 diabetes mellitus E11.42 [facility] [place] [address] [id number] Oct, Spinal stenosis, unspecified spinal region M48.00 [facility] [place] [address] [id number] Sep, Diabetic polyneuropathy associated with type 2 diabetes mellitus E11.42 ; RLS (restless legs syndrome) G25.81 ; Spinal stenosis, unspecified spinal region M48.00 and Essential hypertension I10 [facility] [place] [address] [id number] Sep, [facility] [place] [address] [id number] Sep, Spinal stenosis, unspecified spinal region M48.00 [facility] [place] [address] [id number] Sep, [facility] [place] [address] [id number] Aug, Spinal stenosis, unspecified spinal region M48.00 [facility] [address] [facility] [place] [address] July, [facility] [place] [address] [place] [id number] [place] [address] [id number] July, Spinal stenosis, unspecified spinal region M48.00 [facility] [place] [address] [id number] Jun, Type 2 diabetes mellitus with hyperglycemia E11.65 [facility] [place] [address] [id number] Jun, Spinal stenosis, unspecified spinal region M48.00 [facility] [place] [address] [id number] May, Spinal stenosis, unspecified spinal region M48.00 [facility] [place] [address] [id number] Apr, Spinal stenosis, unspecified spinal region M48.00 [facility] [address] [address] Mar, [facility] [address] [id number] Mar, Type 2 diabetes mellitus with hyperglycemia E11.65 ; RLS (restless legs syndrome) G25.81 and Spinal stenosis, unspecified spinal region M48.00 [facility] [address] [address] Mar, [facility] [address] [id number] [id number] Mar, [address] [id number] Mar, [facility] [address] [place] [id number] [place] [address] [id number] Feb, [facility] [address] [address] Feb, [facility] [address] [id number] Feb, [address] [id number] Feb, [facility] [address] [address] Feb, [facility] [address] [address] Feb, [facility] [address] [id number] Jan, [facility] [address] [id number] Dec, Diabetic polyneuropathy associated with type 2 diabetes mellitus E11.42 ; Other chronic pain G89.29 ; Essential hypertension I10 and Encounter for immunization Z23 [facility] [address] [id number] Dec, [facility] [address] [address] Nov, [place] [id number] [place] [id number] Nov, [facility] [place] [address] [id number] 15 Nov, 2015 Diabetes type 2, controlled E11.9 [facility] [address] [id number] 14 Nov, 2015 Diabetes type 2, controlled E11.9 ; Other chronic pain G89.29 ; Essential hypertension I10 ; Diabetic polyneuropathy associated with type 2 diabetes mellitus E11.42 and RLS (restless legs syndrome) G25.81 [facility] [address] [address] Nov, [facility] [address] [id number] Oct, [facility] [address] [id number] Oct, [address] [id number] Oct, [facility] [address] [address] Oct, [address] [id number] Sep, [address] [id number] Sep, [facility] [address] [address] Sep, Dental examination Z01.20 [facility] [address] [address] Aug, [address] [id number] Aug, [facility] [address] [address] Aug, [facility] [address] [address] July, [facility] [address] [address] July, [facility] [address] [facility] [place] [address] July, [facility] [address] [id number] July, [facility] [address], [place] [id number] July, [facility] [address], [place] [id number] July, [facility] [id number] [place] [address] July, [facility] [address], [place] [id number] Jun, Diabetes type 2, controlled E11.9 [facility] [address], [place] [id number] Jun, [facility] [address], [place] [id number] May, Diabetes type 1, uncontrolled E10.65 [facility] [place] [address] [id number] May, [facility] [place] [address], [place] [id number] Apr, [facility] [address], [place] [id number] Apr, [facility] [address], [place] [id number] Mar, [facility] [address] [id number] Mar, [facility] [address], [place] [id number] Mar, [facility] [address], [place] [id number] Mar, Diabetes type 1, uncontrolled E10.65 [facility] [address], [place] [id number] Feb, [facility] [address], [place] [id number] Feb, [facility] [address], [place] [id number] Feb, [facility] [address] [facility] [address] [id number] [place] [id number] Jan, [address] [place] [address] [id number] Jan, Dysuria R30.0 and Acute cystitis with hematuria N30.01 [address] [place] [address] [id number] Jan, [address] [id number] Dec, Gastroenteritis K52.9 and Headache, unspecified headache type R51 [address] [id number] Dec, [address] [id number] Dec, Chronic back pain 724.[address] [id number] [id number] Dec, [address] [id number] Nov, Chronic back pain 724.5 and Diabetes mellitus without mention of complication, type II or unspecified type, uncontrolled 250.02 [place] [id number] [place] [address] [id number] Nov, [address] [id number] Oct, [address] [id number] Sep, Diabetes mellitus without mention of complication, type II or unspecified type, uncontrolled 250.02 and Urinary tract infection 599.[address] [id number] July, [facility] [address] [address] Jun, [facility] [address] [address] Jun, [address] [id number] May, [facility] [address] [facility] [place] [address] May, [facility] [place] [address] [place] [id number] [id number] May, [facility] [address] [facility] [place] [address] May, [facility] [place] [address] [place] [id number] [id number] Mar, [facility] [id number] [place] [address] Mar, [facility] [id number] [place] [address] Mar, [facility] [place] [address] [place] [address] [id number] Mar, [facility] [place] [address] [place] [id number] [id number] Feb, [facility] [id number] [place] [address] Feb, [facility] [place] [address] [place] [id number] [id number] Feb, [facility] [id number] [place] [address] Feb, [facility] [id number] [place] [address] Feb, [facility] [place] [address] [place] [id number] [id number] Feb, [facility] [place] [address] [place] [id number] Feb, [facility] [id number] [place] [address] Feb, [facility] [address] [facility] [place] [address] Feb, [facility] [place] [address] [place] [id number] [id number] Jan, [facility] [id number] [place] [address] Jan, [facility] [place] [address] [facility]757[facility] [id number] Jan, [facility] [id number] [place] [address] Jan, [facility] [place] [address] [facility]07757[facility] [id number] Dec, [facility] [id number] [place] [address] Dec, [facility] [address] [facility] [place] [address] Dec, [facility] [id number] [place] [address] Dec, [facility] [place] [address] [facility] [id number] Dec, [facility] [address] [facility] [place] [address] Dec, [facility] [place] [address] [id number] [id number] Nov, [facility] [address] [facility] [place] [address] Nov, [facility] [place] [address] [facility] [id number] Oct, [facility] [address] [id number] [place] [address] Oct, [facility] [address] [facility] [place] [address] Sep, [facility] [place] [address] [facility] [id number] Sep, [facility] [place] 120 [facility] [id number] Aug, [facility] [address] [id number] [place] [address] Aug, [facility] [place] [address] [facility]07757[facility] [id number] July, [facility] [address] [facility] [place] [address] July, [facility] [address] [facility] [id number] July, [facility] [address] [id number] [place] [address] July, [facility] [address] [id number] [place] [address] July, [facility] [address] [id number] [place] [address] Jun, [facility] [id number] [id number] Jun, [facility] [id number] [id number] Jun, [facility] [address] [id number] [place] [address] Jun, [facility] [id number] [place] [address] Jun, [facility] [address] [id number] [place] [address] May, [facility] [address] [id number] [id number] Apr, [facility] [address] [id number] [place] [address] Apr, [facility] [address] [facility] [id number] Apr, [facility] [address] [id number] [place] [address] Apr, [facility] [address] [id number] [place] [address] Mar, [facility] [address] [id number] [place] [address] Mar, [facility] [address] [id number] [place] [address] Mar, [facility] [address] [id number] [id number] Mar, [facility] [id number] [place] [address] Mar, [facility] [id number] [place] [address] Mar, [facility] [address] [id number] [place] [address] Feb, [facility] [id number] [place] [id number] Feb, [facility] [id number] [place] [address] Feb, [facility] [id number] [place] [address] [id number] Feb, [facility] [id number] [place] [address] Feb, [facility] [address] [id number] [id number] Feb, [facility] [id number] [place] [address] Feb, [facility] [address] [id number] [id number] Jan, [facility] [id number] [place] [address] Jan, [facility] [id number] [place] [address] Dec, [facility] [address] [id number] [id number] Dec, [facility] [id number] [place] [address] Nov, [facility] [id number] [place] [address] [id number] Oct, [facility] [address] [id number] [id number] Oct, [facility] [id number] [place] [address] [id number] Sep, [facility] [id number] [place] [address] Sep, [facility] [id number] [id number] Sep, [facility] [id number] [id number] Sep, [facility] [id number] [id number] Sep, [facility] [id number] [place] [address], [place] [id number] Sep, [facility] [id number] [place] [address], [place] [id number] Sep, [facility] [place] [facility] [address] [address] Aug, [facility] [id number] [place] [address], [place] [id number] Aug, [facility] [place] [facility] [id number] [place] [address] July, [facility] [id number] [place] [address], [place] [id number] July, [facility] [place] [facility] [id number] [place] [address] July, [facility] [id number] [place] [address], [place] [id number] Jun, [facility] [id number] [id number] Jun, [facility] [id number] [place] [address], [place] [id number] Jun, [facility] [place] [facility] [address] [address] Jun, [facility] [id number] [id number] May, [facility] [id number] [place] [address], [place] [id number] May, [facility] [id number] [place] [address] May, [facility] [id number] [place] [address], [place] [id number] Apr, [facility] [id number] [place] [address] Apr, [facility] [id number] [id number] Apr, [facility] [id number] [id number] Apr, [facility] [id number] [place] [address] Mar, [facility] [id number] [id number] Mar, [facility] [id number] [place] [address], [place] [id number] Mar, [facility] [id number] [place] [address], [place] [id number] Feb, [facility] [id number] [place] [address] Feb, [facility] [id number] [place] [address], [place] [id number] Jan, [facility] [id number] [id number] Jan, [facility] [id number] [place] [address] Jan, [facility] [id number] [place] [address] Jan, [facility] [id number] [place] [address] [id number] Jan, [facility] [id number] [place] [address] Jan, [facility] [id number] [id number] Dec, [facility] [id number] [place] [address] Dec, [facility] [id number] [id number] Dec, [facility] [id number] [place] [address] Dec, [facility] [address] [facility] [place] [id number] Dec, [facility] [address] [id number] [place] [address], [place] [id number] Nov, [facility] [address] [id number] [id number] Nov, [facility] [address] [id number] [id number] Oct, [facility] [address] [id number] [place] [address], [place] [id number] Oct, [facility] [address] [id number] [place] [address], [place] [id number] Sep, [facility] [address] [id number] [id number] Sep, [facility] [address] [id number] [id number] Sep, [facility] [id number] [place] [address], [place] [id number] Aug, [facility] [id number] [place] [address], [place] [id number] Aug, [facility] [id number] [place] [address], [place] [id number] July, [facility] [id number] [place] [address], [place] [id number] July, [facility] [id number] [place] [address], [place] [id number] July, [facility] [id number] [place] [address], [place] [id number] July, [facility] [address] [id number] [place] [address] Jun, [facility] [id number] [place] [address], [place] [id number] Jun, [facility] [id number] [place] [address], [place] [id number] Jun, [facility] [id number] [place] [address], [place] [id number] Jun, [facility] [id number] [place] [address], [place] [id number] May, [facility] [address] [id number] [place] [id number] May, [facility] [address] [facility]757[facility] [id number] Apr, [facility] [address] [facility]757[facility] [id number] Apr, [facility] [address] [facility]757[facility] [id number] Apr, [facility] [address] [facility]757[facility] [id number] Apr, [facility] [address] [facility]757[facility] [id number] Apr, [facility] [id number] [place] [address] Apr, [facility] [address] [facility]757[facility] [id number] Apr, [facility] [id number] [id number] Apr, [facility] [address] [facility]757[facility] [id number] Mar, [facility] [id number] [place] [address] Feb, [facility] [id number] [place] [address] Feb, [facility] [address] [address] Feb, [facility] [id number] [place] [address] Feb, [facility] [address] [address] Jan, [facility] [id number] [place] [address] Jan, [facility] [address] [address] Jan, [facility] [address] [place] [address] Dec, [facility] [address] [id number] [place] [address] 24 Dec, 2010 [facility] [address] [id number] [place] [address] Aug, [facility] [address] [id number] [place] [address] Aug, [facility] [address] [id number] [place] [address] 30 Feb, 2010 [facility] [address] [id number] [place] [address] Feb, [facility] [address] [id number] [place] [address] Jan, [facility] [address] [id number] [place] [address] Jan, [facility] [address] [id number] [place] [address] Dec, [facility] [address] [id number] [place] [address] Dec, [facility] [address] [id number] [place] [address] Dec, [facility] [address] [id number] [place] [address] May, [facility] [address] [id number] [place] [address] Mar, [facility] [address] [id number] [place] [address] Feb, [facility] [address] [id number] [place] [address] Feb, [facility] [address] [id number] [place] [address] Feb, [facility] [address] [id number] [place] [address] Jan, [facility] [address] [id number] [place] [address] Jan, [facility] [address] [id number] [place] [address] Oct, [facility] [address] [id number] [place] [address] July, [facility] [address] [id number] [place] [address] Apr, [facility] [address] [id number] [place] [address] Jan, [facility] [address] [id number] [place] [address] Jan, IMMUNIZATIONS No Known Immunizations SOCIAL HISTORY [...] Hospitalization History surgeries, childbirth Hospitalization History ED [place]- Possible Stroke Hospitalization History Hospital stay due to acute renal didier lure 10/2018
--- OUTSIDE RECORDS SUMMARY | 2019-06-03 14:45 | XMS REPORT ---
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69 Active 63518477677930 Problem Reactive depression F32.9 Active 23146268 Problem Hypoglycemia E16.2 Active 3810117 03 Problem Moderate episode of recurrent major depressive disorder F33.1 Active 996716616 Problem Hyperlipidemia, unspecified E78.5 Ac tive 88737297 Problem Falling R29.6 Active 675696396 Problem Type 2 diabetes mellitus with hyperglycemia E11.65 Active 185258374202385 Problem 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 [id number] [id number] Feb, Essential hypertension I10 ; Type 2 diabetes mellitus with hyperglycemia E11.65 ; Falling R29.6 and Spinal stenosis, unspecified spinal region M48.[address] [id number] Feb, Vertigo R42 and Laceration of right foot, initial encounter S91.311A [address] [id number] Jan, Essential hypertension I10 and Type 2 diabetes mellitus with hyperglycemia E11.[address] [id number] Jan, Spinal stenosis, unspecified spinal region M48.[address] [id number] Jan, Essential hypertension I10 and Spinal stenosis, unspecified spinal region M48.00 [place] [id number] [place] [id number] Jan, [address] [id number] Jan, [address] [id number] Dec, Type 2 diabetes mellitus with other specified complication E11.69 and Other chronic pain G89.[address] [id number] Dec, Spinal stenosis, unspecified spinal region M48.00 [facility] [address] [facility] [id number] [place] [address] 14 Dec, 2018 Type 2 diabetes mellitus with other diab etic kidney complication E11.[address] [id number] Dec, Type 2 diabetes mellitus with other diabetic kidney complication E11.29 ; Fatigue, unspecified type R53.83 ; Moderate episode of recurrent major depressive disorder F33.1 and Acute cystitis with hematuria N30.[address] [id number] 08 Dec, 2018 [facility] [address] [facility] [id number] 100[address] [place] [address] Dec, Injury of head, initial enco unter S09.90XA ; Unsteady gait R26.81 and Hyperglycemia R73.[address] [id number] Nov, Spinal stenosis, unspecified spinal region M48.[address] [id number] Nov, Type 2 diabetes mellitus with other diabetic kidney complication E11.29 and ocean transportation intermediary current use of insulin Z79.[address] [id number] Nov, Acute renal failure, unspecified acute renal failure type N17.9 [facility] [address] [id number] [place] [id number] Oct, Diabetic polyneuropathy associated with type 2 diabetes mellitus E11.42 ; Essential hypertension I10 ; Acute renal failure, unspecified acute renal failure type N17.9 and Spinal stenosis, unspecified spinal region M48.[address] [id number] Oct, Essential hypertension I10 ; Diabetic polyneuropathy associated with type 2 diabetes mellitus E11.42 and Acute renal failure, unspecified acute renal failure type N17.9 [facility] [address] [facility] [address] [id number] [id number] Oct, [address] [id number] Oct, [address] [id number] Oct, [address] [id number] Oct, Essential hypertension I10 ; Diabetic polyneuropathy associated with type 2 diabetes mellitus E11.42 and Acute renal failure, unspecified acute renal failure type N17.[address] [id number] Oct, Spinal stenosis, unspecified spinal region M48.[address] [id number] Sep, Spinal stenosis, unspecified spinal region M48.00 [facility] [address] [place] [id number] [place] [id number] Sep, Type 2 diabetes mellitus with other specified complication E11.69 ; Vertigo R42 and Spinal stenosis, unspecified spinal region M48.00 [facility] [address] [place] 927037[facility], [place] [id number] Sep, Spinal stenosis, unspecified spinal region M48.00 [facility] [address], [place] [id number] Sep, Spinal stenosis, unspecified spinal region M48.00 [facility] [address], [place] [id number] Aug, Spinal stenosis, unspecified spinal region M48.00 [facility] [address], [place] [id number] July, Diabetic polyneuropathy associated with type 2 diabetes mellitus E11.42 [facility] [address], [place] [id number] July, Spinal stenosis, unspecified spinal region M48.00 [facility] [address], [place] [id number] July, Spinal stenosis, unspecified spinal region M48.00 [facility] [address], [place] [id number] Jun, Spinal stenosis, unspecified spinal region M48.00 [facility] [address], [place] [id number] Jun, Diabetic polyneuropathy associated with type 2 diabetes mellitus E11.42 [facility] [address], [place] [id number] May, Diabetic polyneuropathy associated with type 2 diabetes mellitus E11.42 [facility] [place] [address], [place] [id number] May, [facility] [address], [place] [id number] May, Spinal stenosis, unspecified spinal region M48.00 [facility] [address], [place] [id number] Apr, Spinal stenosis, unspecified spinal region M48.00 [facility] [address] [id number] [place] [id number] Apr, [facility] [address] [facility] [id number] [address] [place] [address] Apr, Puncture wound T14.8XXA ; Ab rasion T14.8XXA and Encounter for immunization Z23 [address] [id number] Mar, Spinal stenosis, unspecified spinal region M48.00 [facility] [address] [id number] Feb, Spinal stenosis, unspecified spinal region M48.[address] [id number] Jan, Type 2 diabetes mellitus with hyperglycemia E11.65 ; Diabetes type 2, controlled E11.9 ; Spinal stenosis, unspecified spinal region M48.00 and Encounter for immunization Z23 [facility] [address] [address] Dec, Spinal stenosis, unspecified spinal joesph on M48.00 [facility] [address] [address] Dec, [facility] [address] [address] Dec, [facility] [address] [address] Dec, [facility] [address] [id number] Nov, [facility] [address] [id number] Nov, Spinal stenosis, unspecified spinal region M48.00 [facility] [address] [id number] Oct, Spinal stenosis, unspecified spinal region M48.00 [facility] [address] [id number] Oct, Spinal stenosis, unspecified spinal region M48.00 [facility] [place] [address], [place] [id number] Oct, [facility] [place] [address], [place] [id number] Oct, Diabetic polyneuropathy associated with type 2 diabetes mellitus E11.42 ; RLS (restless legs syndrome) G25.81 ; Spinal stenosis, unspecified spinal region M48.00 and Acute cystitis with hematuria N30.01 [facility] [address], [place] [id number] Oct, [facility] [address], [place] [id number] Oct, Spinal stenosis, unspecified spinal region M48.00 [facility] [place] [address], [place] [id number] Sep, Diabetic polyneuropathy associated with type 2 diabetes mellitus E11.42 [facility] [address] [address] Sep, [facility] [place] [address] [id number] Sep, Spinal stenosis, unspecified spinal region M48.00 [facility] [address] [address] Aug, [facility] [place] [address] [id number] Aug, Spinal stenosis, unspecified spinal region M48.00 [facility] [place] [address] [id number] Aug, Spinal stenosis, unspecified spinal region M48.00 [facility] [place] [address] [id number] July, [facility] [place] [address] [id number] July, Diabetic polyneuropathy associated with type 2 diabetes mellitus E11.42 ; Type 2 diabetes mellitus with hyperglycemia E11.65 ; RLS (restless legs syndrome) G25.81 and Essential hypertension I10 [facility] [place] [address] [id number] July, Spinal stenosis, unspecified spinal region M48.00 [facility] [place] [address] [place] [id number] [place] [address] [id number] July, [facility] [address] [id number] Jun, Type 2 diabetes mellitus with other specified complication E11.69 [facility] [place] [address] [place] [id number] [place] [address] [id number] Jun, Spinal stenosis, unspecified spinal region M48.00 [facility] [place] [address] [id number] 05 Jun, 2017 Hypoglycemia E16.2 [facility] [place] [address] [id number] May, Hypoglycemia E16.2 ; Acute cystitis with hematuria N30.01 and Essential hypertension I10 [facility] [address] [facility] [id number] [address] [place] [address] May, [address] [id number] May, Spinal stenosis, unspecified spinal region M48.[address] [id number] May, Reactive depression F32.[address] [id number] May, [address] [id number] Apr, [facility] [id number] [facility] [place] [id number] Apr, [facility] [address] [id number] [place] [id number] Apr, [address] [id number] Apr, [address] [id number] Apr, Spinal stenosis, unspecified spinal region M48.00 [facility] [address] [id number] 08 Apr, 2017 Type 2 diabetes mellitus with other specified complication E11.69 ; Spinal stenosis, unspecified spinal region M48.00 ; Reactive depression F32.9 and Essential hypertension I10 [place] [address] [facility] [id number] [place] [id number] Apr, [facility] [address] [place] [id number] [place] [address] [id number] Mar, Spinal stenosis, unspecified spinal region M48.[address] [id number] Feb, Acute non-recurrent maxillary sinusitis J01.00 and Essential hypertension I10 [address] [id number] Feb, Spinal stenosis, unspecified spinal region M48.[address] [id number] Feb, Type 2 diabetes mellitus with other specified complication E11.[address] [id number] Feb, Type 2 diabetes mellitus with other specified complication E11.69 and Essential hypertension I10 [address] [id number] Feb, [address] [id number] Feb, [address] [id number] Jan, Spinal stenosis, unspecified spinal region M48.[address] [id number] Jan, Diabetic polyneuropathy associated with type 2 diabetes mellitus E11.[address] [id number] 14 Jan, 2017 Diabetic polyneuropathy associated with type 2 diabetes mellitus E11.[address] [id number] Jan, Type 2 diabetes mellitus with hyperglycemia E11.65 ; Type 2 diabetes mellitus with other specified complication E11.69 ; Spinal stenosis, unspecified spinal region M48.00 and Essential hypertension I10 [address] [id number] Jan, Diabetic polyneuropathy associated with type 2 diabetes mellitus E11.42 [place] [id number] [place] [address] [id number] Dec, [address] [id number] Dec, Diabetic polyneuropathy associated with type 2 diabetes mellitus E11.42 ; Type 2 diabetes mellitus with other specified complication E11.69 ; Hyperlipidemia, unspecified E78.5 ; Thyroid disorder E07.9 and Thyroid disorder screening Z13.[address] [id number] Dec, Diabetic polyneuropathy associated with type 2 diabetes mellitus E11.42 [facility] [address] [facility]077570 [place] [address] Dec, Diabetic polyneuropathy associated with type 2 diabetes mellitus E11.[address] [id number] Dec, Spinal stenosis, unspecified spinal region M48.[address] [id number] Dec, [address] [id number] 18 Nov, 2016 Diabetic polyneuropathy associated with type 2 diabetes mellitus E11.[address] [id number] 15 Nov, 2016 Other chronic pain G89.[address] [id number] 14 Nov, 2016 Spinal stenosis, unspecified spinal region M48.[address] [id number] 16 Oct, 2016 Spinal stenosis, unspecified spinal region M48.00 ; Essential hypertension I10 ; RLS (restless legs syndrome) G25.81 and Diabetic polyneuropathy associated with type 2 diabetes mellitus E11.42 [place] [id number] [place] [address] [id number] Oct, Spinal stenosis, unspecified spinal region M48.[address] [id number] Sep, Diabetic polyneuropathy associated with type 2 diabetes mellitus E11.42 ; RLS (restless legs syndrome) G25.81 ; Spinal stenosis, unspecified spinal region M48.00 and Essential hypertension I10 [facility] [place] [address] [id number] Sep, [facility] [place] [address] [id number] Sep, Spinal stenosis, unspecified spinal region M48.00 [facility] [place] [address] [id number] Sep, [facility] [place] [address] [id number] Aug, Spinal stenosis, unspecified spinal region M48.00 [facility] [address] [address] July, [facility] [address] [id number] July, Spinal stenosis, unspecified spinal region M48.00 [facility] [place] [address] [id number] Jun, Type 2 diabetes mellitus with hyperglycemia E11.65 [facility] [place] [address] [id number] Jun, Spinal stenosis, unspecified spinal region M48.00 [facility] [place] [address] [id number] May, Spinal stenosis, unspecified spinal region M48.00 [facility] [address] [id number] Apr, Spinal stenosis, unspecified spinal region M48.00 [facility] [address] [address] Mar, [facility] [place] [address] [id number] Mar, Type 2 diabetes mellitus with hyperglycemia E11.65 ; RLS (restless legs syndrome) G25.81 and Spinal stenosis, unspecified spinal region M48.00 [facility] [address] [address] Mar, [facility] 120 [id number] [place] [id number] Mar, [facility] [place] [address] [facility]07757H [facility] [id number] Mar, [facility] [place] 120 [facility]07[place] [id number] Feb, [facility] [address] [place] 1788770 [place] [address] Feb, [facility] [address] [place] 20[place] [id number] Feb, [place] [id number] [place] [address] [id number] Feb, [facility] [address] [address] Feb, [facility] [address] [place] [id number] [place] [address] Feb, [place] [id number] [place] [address] [id number] Jan, [facility] [address] [place] 20[place] [id number] Dec, Diabetic polyneuropathy associated with type 2 diabetes mellitus E11.42 ; Other chronic pain G89.29 ; Essential hypertension I10 and Encounter for immunization Z23 [place] [id number] [place] [address] [id number] Dec, [facility] [address] [place] [id number] [place] [address] Nov, [place] [id number] [place] [address] [id number] Nov, [address] [id number] Nov, Diabetes type 2, controlled E11.[address] [id number] Nov, Diabetes type 2, controlled E11.9 ; Other chronic pain G89.29 ; Essential hypertension I10 ; Diabetic polyneuropathy associated with type 2 diabetes mellitus E11.42 and RLS (restless legs syndrome) G25.81 [facility] [place] [facility] [address] [place] [id number] [place] [address] Nov, [facility] [place] [address] [place] [id number] [place] [address], [place] [id number] Oct, [facility] [place] [address] [place] [id number] [id number] Oct, [facility] [place] [address] [place] [id number] [place] [address], [place] [id number] Oct, [facility] [place] [facility] [address] [address] Oct, [facility] [address] [place] [id number] [place] [address], [place] [id number] Sep, [facility] [address] [id number] Sep, [facility] [address] [address] Sep, Dental examination Z01.20 [facility] [place] [facility] [address] [address] Aug, [facility] [place] [address] [place] [address] [place] [address] [id number] Aug, [facility] [address] [address] Aug, [facility] [address] [address] July, [facility] [address] [address] July, [facility] [address] [address] July, [facility] [place] [address] [place] [id number] [place] [address] [id number] July, [facility] [place] [address] [id number] July, [facility] [place] [address] [place] [id number] [place] [address] [id number] July, [facility] [address] [address] July, [facility] [address]07[address] [id number] Jun, Diabetes type 2, controlled E11.9 [facility] [place] [id number] [place] [address] [id number] Jun, [facility] [address] [id number] May, Diabetes type 1, uncontrolled E10.65 [facility] [address] [id number] May, [facility] [address] [id number] Apr, [facility] [address] [id number] Apr, [facility] [place] [address] [place] [address] [id number] Mar, [facility] [address] [id number] Mar, [facility] [address] [id number] Mar, [address] [id number] Mar, Diabetes type 1, uncontrolled E10.65 [place] [id number] [place] [address] [id number] Feb, [facility] [address] [place] [address] [id number] Feb, [facility] [place] [id number] [place] [address] [id number] Feb, [facility] [address] [facility]07757H [place] [id number] Jan, [facility] [address] [id number] Jan, Dysuria R30.0 and Acute cystitis with hematuria N30.01 [facility] [address] [place] [address] [id number] Jan, [facility] [address] [id number] Dec, Gastroenteritis K52.9 and Headache, unspecified headache type R51 [address] [id number] Dec, [address] [id number] Dec, Chronic back pain 724.5 [facility] [address] [facility] [id number] [place] [id number] Dec, [address] [id number] Nov, Chronic back pain 724.5 and Diabetes mellitus without mention of complication, type II or unspecified type, uncontrolled 250.[address] [id number] Nov, [address] [id number] Oct, [address] [id number] Sep, Diabetes mellitus without mention of complication, type II or unspecified type, uncontrolled 250.02 and Urinary tract infection 599.[address] [id number] July, [facility] [address] [address] Jun, [facility] [address] [address] Jun, [address] [id number] May, [facility] [address] [address] May, [address] [id number] May, [facility] [address] [address] May, [address] [id number] Mar, [facility] [place] [address] [place] [id number] [place] [address] Mar, [facility] [address] [facility]077570 [place] [address] Mar, [facility] [address] [facility]07757[facility] [id number] Mar, [facility] [address] [place] 20340757[facility], [place] [id number] Feb, [facility] [address] [place] [id number] [place] [address] Feb, [facility] [address] [place] 20340757[facility], [place] [id number] Feb, [facility] [address] [place] [id number] [place] [address] Feb, [facility] [address] [place] [id number] [place] [address] Feb, [facility] [address] [place] 20340757[facility], [place] [id number] Feb, [facility] [address] [place] 20340757[facility], [place] [id number] Feb, [facility] [address] [place] [id number] [place] [address] Feb, [facility] [address] [place] [place] [id number] [place] [address] Feb, [facility] [address] [place] 20340757[place] [id number] Jan, [facility] [address] [place] [id number] [place] [address] Jan, [facility] [address] [place] 20340757[facility], [place] [id number] Jan, [facility] [address] [place] [id number] [place] [address] Jan, [facility] [address] [place] 20340757[facility], [place] [id number] Dec, [facility] [address] [place] [address] [id number] [place] [address] Dec, [facility] [address] [facility]077570 [place] [address] Dec, [facility] [address] [facility]077570 [place] [address] Dec, [facility] [address] [facility]07757[facility] [id number] Dec, [facility] [address] [facility]077570 [place] [address] Dec, [facility] [address] [place] 97790757[facility], [place] [id number] Nov, [facility] [address] [facility]077570 [place] [address] Nov, [facility] [address] [place] 97790757[facility], [place] [id number] Oct, [facility] [address] [place] [id number] [place] [address] Oct, [facility] [address] [place] [id number] [place] [address] Sep, [facility] [address] [place] 97790757[facility], [place] [id number] Sep, [facility] [address] [place] 20340757[facility], [place] [id number] Aug, [facility] [address] [facility]077570 [place] [address] Aug, [facility] [address] [place] 20340757[facility] [id number] July, [facility] [address] [facility]077570 [place] [address] July, [facility] [address] [facility]07757[facility], [place] [id number] July, [facility] [address] [facility]077570 [place] [address] July, [facility] [address] [id number] [place] [address] July, [facility] [address] [id number] [place] [address] Jun[facility] [place] [address] [id number] [place] [id number] Jun, [facility] [place] [id number] [id number] Jun[facility] [facility] [address] [id number] [place] [address] Jun, [facility] [id number] [place] [address] Jun, [facility] [address] [id number] [place] [address] May, [facility] [place] [id number] [id number] Apr, [facility] [address] [id number] [place] [address] Apr, [facility] [place] [id number] [id number] Apr, [facility] [id number] [place] [address] Apr, [facility] [id number] [place] [address] Mar, [facility] [address] [id number] [place] [address] Mar, [facility] [id number] [place] [address] Mar, [facility] [id number] [id number] Mar, [facility] [address] [id number] [place] [address] Mar, [facility] [id number] [place] [address] Mar, [facility] [address] [id number] [place] [address] Feb, [facility] [place] [address] [facility]07757[place] [id number] Feb, [facility] [id number] [place] [address] Feb, [facility] [id number] [id number] Feb, [facility] [id number] [place] [address] Feb, [facility] [id number] [place] [address], [place] [id number] Feb, [facility] [id number] [place] [address] Feb, [facility] [id number] [id number] Jan, [facility] [place] [facility] [id number] [place] [address] Jan, [facility] [place] [facility] [id number] [place] [address] Dec, [facility] [id number] [place] [id number] Dec, [facility] [place] [facility] [id number] [place] [address] Nov, [facility] [id number] [place] [id number] Oct, [facility] [address] [id number] [id number] Oct, [facility] [id number] [place] [address] [id number] Sep, [facility] [id number] [place] [address] Sep, [facility] [id number] [place] [address], [place] [id number] Sep, [facility] [id number] [place] [address], [place] [id number] Sep, [facility] [id number], [place] [id number] Sep, [facility] [id number] [place] [address], [place] [id number] Sep, [facility] [id number] [id number] Sep, [facility] [place] [facility] [id number] [place] [address] Aug, [facility] [address] [id number], [place] [id number] Aug, [facility] [place] [facility] [id number] [place] [address] July, [facility] [id number] [place] [address], [place] [id number] July, [facility] [place] [facility] [address] [address] July, [facility] [id number], [place] [id number] Jun, [facility] [address] [id number], [place] [id number] Jun, [facility] [id number] [place] [address], [place] [id number] Jun, [facility] [place] [facility] [id number] [place] [address] Jun, [facility] [id number] [place] [address], [place] [id number] May, [facility] [address] [id number], [place] [id number] May, [facility] [place] [facility] [id number] [place] [address] May, [facility] [id number] [place] [address], [place] [id number] Apr, [facility] [place] [facility] [id number] [place] [address] Apr, [facility] [id number] [place] [address], [place] [id number] Apr, [facility] [id number] [place] [address], [place] [id number] Apr, [facility] [place] [facility] [id number] [place] [address] Mar, [facility] [address] [id number], [place] [id number] Mar, [facility] [address] [id number], [place] [id number] Mar, [facility] [address] [id number], [place] [id number] Feb, [facility] [place] [facility] [id number] [place] [address] Feb, [facility] [id number] [place] [address], [place] [id number] Jan, [facility] [id number] [place] [address], [place] [id number] Jan, [facility] [place] [facility] [address] [address] Jan, [facility] [place] [facility] [address] [address] Jan, [facility] [place] [id number] [place] [address], [place] [id number] Jan, [facility] [place] [facility] [id number] [place] [address] Jan, [facility] [place] [id number] [place] [address] [id number] Dec, [facility] [place] [facility] [address] [address] Dec, [facility] [place] [id number] [place] [address] [id number] Dec, [facility] [place] [facility] [address] [address] Dec, [facility] [place] [address] [id number], [place] [id number] Dec, [facility] [id number] [place] [address], [place] [id number] Nov, [facility] [address] [id number], [place] [id number] Nov, [facility] [id number] [place] [address], [place] [id number] Oct, [facility] [address], [place] [id number] Oct, [facility] [address] [id number], [place] [address]29400485 Sep, [facility] [address] [id number], [place] [id number] Sep, [facility] [address] [id number] [address] Sep, [facility] [address] [id number], [place] [id number] Aug, [facility] [address] [id number] [facility], [place] [id number] Aug, [facility] [address] [id number] [facility], [place] [id number] July, [facility] [address] [id number], [place] [id number] July, [facility] [address] [id number] DISTRICT [facility], [place] [id number] July, [facility] [id number] [place] [address], [place] [id number] July, [facility] [address] [id number] [place] [address] Jun, [facility] [address] [id number], [place] [id number] Jun, [facility] [address] [id number] [facility], [place] [id number] Jun, [facility] [address] [id number] [facility], [place] [id number] Jun, [facility] [address] [id number] [facility] [id number] May, [facility] [address] [id number] [id number] May, [facility] [address] [id number] [place] [address], [place] [id number] Apr, [facility] [address] [id number], [place] [id number] Apr, [facility] [address] [id number] DISTRICT [facility], [place] 804761035 Apr, [facility] [address] [id number] [place] [id number] 07 Apr, 2011 [facility] [place] [address] [id number] [place] [id number] Apr, [facility] [id number] [place] [address] Apr, [facility] [place] [address] [facility]07757[place] [id number] Apr, [facility] [place] [address] [facility]07757[place] [id number] Apr, [facility] [place] [address] [facility]07757[place] [id number] Mar, [facility] [address] [address] Feb, [facility] [id number] [place] [address] Feb, [facility] [address] [address] Feb, [facility] [id number] [place] [address] Feb, [facility] [address] [address] Jan, [facility] [id number] [place] [address] Jan, [facility] [address] [address] Jan, [facility] [id number] [place] [address] Dec, [facility] [id number] [place] [address] Dec, [facility] [id number] [place] [address] Aug, [facility] [address] [address] Aug, [facility] [address] [address] 30 Feb, 2010 [facility] [address] [id number] [place] [address] Feb, [facility] [address] [id number] [place] [address] Jan, [facility] [address] [id number] [place] [address] Jan, [facility] [address] [id number] [place] [address] Dec, [facility] [address] [id number] [place] [address] Dec, [facility] [address] [id number] [place] [address] Dec, [facility] [address] [id number] [place] [address] May, [facility] [address] [id number] [place] [address] Mar, [facility] [address] [id number] [place] [address] Feb, [facility] [address] [id number] [place] [address] Feb, [facility] [address] [id number] [place] [address] Feb, [facility] [address] [id number] [place] [address] Jan, [facility] [address] [id number] [place] [address] Jan, [facility] [address] [id number] [place] [address] Oct, [facility] [address] [id number] [place] [address] July, [facility] [address] [id number] [place] [address] Apr, [facility] [address] [facility] [id number] [place] [address] Jan, [facility] [address] [id number] [place] [address] Jan, IMMUNIZATIONS No Known Immunizations SOCIAL HISTORY [...] Hospitalization History surgeries, childbirth Hospitalization History [facility]- Possible Stroke Hospitalization History Hospital stay due to acute renal didier lure 10/2018
--- OUTSIDE RECORDS SUMMARY | 2019-06-03 14:45 | XMS REPORT ---
Author Author Emelyn Lira Organization [facility] Address [address] [place] [address] Care Team Providers Care Molding Line Operator Name Role Phone [place] Lira Unavailable PROBLEMS Type Condition ICD9-CM Code TIF40-MT Code Onset Dates Condition S tatus SNOMED Code Problem Essential hypertension I10 Active 99109284 Problem RLS (restless legs syndrome) G25.81 A ctive 34520462 Problem Other chronic pain G89.29 Active 8 5497071 Problem Diabetic polyneuropathy associated with type 2 d iabetes mellitus E11.42 Active 08068798 Problem Spinal stenosis, unspecified spinal region M48.00 Active 34368578 Problem Encounter for immunization Z23 Act nicole 372051777 Problem Type 2 diabetes mellitus with other specified complication E11.69 Active 84823710559910 Problem Reactive depression F32.9 Active 75137686 Problem Hypoglycemia E16.2 Active 1523092 03 Problem Moderate episode of recurrent major depressive disorder F33.1 Active 473602989 Problem Hyperlipidemia, unspecified E78.5 Ac tive 32620396 Problem Falling R29.6 Active 263944463 Problem Type 2 diabetes mellitus with hyperglycemia E11.65 Active 726224767615898 Problem 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 244050050 Problem Type 2 diabetes mellitus with other diabetic kid rory complication E11.29 Active 70173342 Problem Unsteady gait R26.81 Active 153774 008 Problem Moderate episode of recurrent major depressive disorder F33.1 Active 597895990 ALLERGIES No Information ENCOUNTERS Encounter Location Date Diagnosis [address] [place] [address] 2 0 Apr, 2019 [address] [place] [address] 1 1 Apr, 2019 Spinal stenosis, unspecified spinal region M48.00 [facility] [id number] [place] [address] 04 Apr, 2019 [facility] [address] [place] [address] [place] [address] 1 Mar, Spinal stenosis, unspecified spinal region M48.00 [facility] [address] [id number] Feb, Essential hypertension I10 ; Type 2 diabetes mellitus with hyperglycemia E11.65 ; Falling R29.6 and Spinal stenosis, unspecified spinal region M48.00 [facility] [address] [id number] Feb, Vertigo R42 and Laceration of right foot, initial encounter S91.311A [facility] [address] [id number] Jan, Essential hypertension I10 and Type 2 diabetes mellitus with hyperglycemia E11.65 [facility] [address] [id number] Jan, Spinal stenosis, unspecified spinal region M48.00 [facility] [address] [id number] Jan, Essential hypertension I10 and Spinal stenosis, unspecified spinal region M48.00 [facility] [address] [id number] Jan, [facility] [address] [id number] Jan, [facility] [address] [id number] Dec, Type 2 diabetes mellitus with other specified complication E11.69 and Other chronic pain G89.29 [facility] [address] [id number] Dec, Spinal stenosis, unspecified spinal region M48.00 [facility] [id number] [place] [address] Dec, Type 2 diabetes mellitus with other diab etic kidney complication E11.29 [facility] [address] [id number] Dec, Type 2 diabetes mellitus with other diabetic kidney complication E11.29 ; Fatigue, unspecified type R53.83 ; Moderate episode of recurrent major depressive disorder F33.1 and Acute cystitis with hematuria N30.[address] [id number] Dec, [facility] [address] [facility] [id number] [address] [place] [address] Dec, Injury of head, initial enco unter S09.90XA ; Unsteady gait R26.81 and Hyperglycemia R73.[address] [id number] Nov, Spinal stenosis, unspecified spinal region M48.[address] [id number] Nov, Type 2 diabetes mellitus with other diabetic kidney complication E11.29 and FDC current use of insulin Z79.[address] [id number] Nov, Acute renal failure, unspecified acute renal failure type N17.9 [facility] [address] [id number] [employer] [place] [id number] Oct, Diabetic polyneuropathy associated with type 2 diabetes mellitus E11.42 ; Essential hypertension I10 ; Acute renal failure, unspecified acute renal failure type N17.9 and Spinal stenosis, unspecified spinal region M48.[address] [id number] Oct, Essential hypertension I10 ; Diabetic polyneuropathy associated with type 2 diabetes mellitus E11.42 and Acute renal failure, unspecified acute renal failure type N17.9 [facility] [address] [id number] [employer] [place] [id number] Oct, [address] [id number] Oct, [address] [id number] Oct, [address] [id number] Oct, Essential hypertension I10 ; Diabetic polyneuropathy associated with type 2 diabetes mellitus E11.42 and Acute renal failure, unspecified acute renal failure type N17.9 [facility] [place] [address], [place] [id number] Oct, Spinal stenosis, unspecified spinal region M48.00 [facility] [place] [address], [place] [id number] Sep, Spinal stenosis, unspecified spinal region M48.00 [facility] [place] [address], [place] [id number] Sep, Type 2 diabetes mellitus with other specified complication E11.69 ; Vertigo R42 and Spinal stenosis, unspecified spinal region M48.00 [facility] [place] [address], [place] [id number] Sep, Spinal stenosis, unspecified spinal region M48.00 [facility] [place] [address], [place] [id number] Sep, Spinal stenosis, unspecified spinal region M48.00 [facility] [place] [address], [place] [id number] Aug, Spinal stenosis, unspecified spinal region M48.00 [facility] [place] [address], [place] [id number] July, Diabetic polyneuropathy associated with type 2 diabetes mellitus E11.42 [facility] [place] [address], [place] [id number] July, Spinal stenosis, unspecified spinal region M48.00 [facility] [place] [address], [place] [id number] July, Spinal stenosis, unspecified spinal region M48.00 [facility] [place] [address], [place] [address] Jun, Spinal stenosis, unspecified spinal region M48.00 [facility] [place] [address], [place] [id number] Jun, Diabetic polyneuropathy associated with type 2 diabetes mellitus E11.42 [facility] [place] [address], [place] [id number] May, Diabetic polyneuropathy associated with type 2 diabetes mellitus E11.42 [facility] [place] [address] [address] [id number] May, [facility] [place] [address] [facility]757[address] [place] [address] May, Spinal stenosis, unspecified spinal region M48.00 [facility] [place] [address] [facility] [address] Apr, Spinal stenosis, unspecified spinal region M48.00 [facility] [address] [id number] [place] [id number] Apr, [facility] [address] [facility] [id number] [address] [place] [address] Apr, Puncture wound T14.8XXA ; Ab rasion T14.8XXA and Encounter for immunization Z23 [id number] [place] [address] [id number] Mar, Spinal stenosis, unspecified spinal region M48.[address] [id number] Feb, Spinal stenosis, unspecified spinal region M48.00 [facility] [address] [id number] Jan, Type 2 diabetes mellitus with hyperglycemia E11.65 ; Diabetes type 2, controlled E11.9 ; Spinal stenosis, unspecified spinal region M48.00 and Encounter for immunization Z23 [facility] [address] [address] Dec, Spinal stenosis, unspecified spinal joesph on M48.00 [facility] [address] [address] Dec, [facility] [address] [address] Dec, [facility] [address] [address] Dec, [facility] [place] [id number] [place] [id number] Nov, [address] [id number] Nov, Spinal stenosis, unspecified spinal region M48.00 [facility] [address], [place] [address] Oct, Spinal stenosis, unspecified spinal region M48.00 [facility] [place] [address], [place] [id number] Oct, Spinal stenosis, unspecified spinal region M48.00 [facility] [place] [address], [place] [address] Oct, [facility] [place] [address], [place] [id number] Oct, Diabetic polyneuropathy associated with type 2 diabetes mellitus E11.42 ; RLS (restless legs syndrome) G25.81 ; Spinal stenosis, unspecified spinal region M48.00 and Acute cystitis with hematuria N30.01 [facility] [place] [address] [id number] Oct, [facility] [place] [address], [place] [id number] Oct, Spinal stenosis, unspecified spinal region M48.00 [facility] [place] [address], [place] [id number] Sep, Diabetic polyneuropathy associated with type 2 diabetes mellitus E11.42 [facility] [address] [address] Sep, [facility] [place] [address] [id number] Sep, Spinal stenosis, unspecified spinal region M48.00 [facility] [place] [address] [address] Aug, [facility] [place] [address] [id number] Aug, Spinal stenosis, unspecified spinal region M48.00 [facility] [place] [address] [id number] Aug, Spinal stenosis, unspecified spinal region M48.00 [facility] [place] [address] [id number] July, [facility] [place] [address] [id number] July, Diabetic polyneuropathy associated with type 2 diabetes mellitus E11.42 ; Type 2 diabetes mellitus with hyperglycemia E11.65 ; RLS (restless legs syndrome) G25.81 and Essential hypertension I10 [address] [id number] July, Spinal stenosis, unspecified spinal region M48.[address] [id number] July, [address] [id number] Jun, Type 2 diabetes mellitus with other specified complication E11.[address] [id number] Jun, Spinal stenosis, unspecified spinal region M48.[address] [id number] Jun, Hypoglycemia E16.[address] [id number] May, Hypoglycemia E16.2 ; Acute cystitis with hematuria N30.01 and Essential hypertension I10 [facility] [address] [facility] [id number] [address] [place] [address] May, [address] [id number] May, Spinal stenosis, unspecified spinal region M48.[address] [id number] May, Reactive depression F32.[address] [id number] May, [address] [id number] Apr, [facility] [address] [id number] [id number] Apr, [facility] [address] [id number] [id number] Apr, [address] [id number] Apr, [address] [place] [id number] 14 Apr, 2017 Spinal stenosis, unspecified spinal region M48.[address] [id number] 08 Apr, 2017 Type 2 diabetes mellitus with other specified complication E11.69 ; Spinal stenosis, unspecified spinal region M48.00 ; Reactive depression F32.9 and Essential hypertension I10 [address] [address] 07 Apr, 2017 [facility] [address] [id number] Mar, Spinal stenosis, unspecified spinal region M48.[address] [id number] Feb, Acute non-recurrent maxillary sinusitis J01.00 and Essential hypertension I10 [address] [id number] Feb, Spinal stenosis, unspecified spinal region M48.[address] [id number] Feb, Type 2 diabetes mellitus with other specified complication E11.[address] [id number] Feb, Type 2 diabetes mellitus with other specified complication E11.69 and Essential hypertension I10 [address] [id number] Feb, [address] [id number] Feb, [address] [id number] Jan, Spinal stenosis, unspecified spinal region M48.[address] [id number] Jan, Diabetic polyneuropathy associated with type 2 diabetes mellitus E11.[address] [id number] 14 Jan, 2017 Diabetic polyneuropathy associated with type 2 diabetes mellitus E11.[address], [place] [id number] Jan, Type 2 diabetes mellitus with hyperglycemia E11.65 ; Type 2 diabetes mellitus with other specified complication E11.69 ; Spinal stenosis, unspecified spinal region M48.00 and Essential hypertension I10 [address] [id number] Jan, Diabetic polyneuropathy associated with type 2 diabetes mellitus E11.[address] [id number] Dec, [address] [id number] Dec, Diabetic polyneuropathy associated with type 2 diabetes mellitus E11.42 ; Type 2 diabetes mellitus with other specified complication E11.69 ; Hyperlipidemia, unspecified E78.5 ; Thyroid disorder E07.9 and Thyroid disorder screening Z13.[address] [id number] Dec, Diabetic polyneuropathy associated with type 2 diabetes mellitus E11.42 [facility] [address] [facility] [place] [address] Dec, Diabetic polyneuropathy associated with type 2 diabetes mellitus E11.[address] [id number] Dec, Spinal stenosis, unspecified spinal region M48.[address] [id number] Dec, [address] [id number] 18 Nov, 2016 Diabetic polyneuropathy associated with type 2 diabetes mellitus E11.[address] [id number] 15 Nov, 2016 Other chronic pain G89.[address] [id number] 14 Nov, 2016 Spinal stenosis, unspecified spinal region M48.[address] [id number] Oct, Spinal stenosis, unspecified spinal region M48.00 ; Essential hypertension I10 ; RLS (restless legs syndrome) G25.81 and Diabetic polyneuropathy associated with type 2 diabetes mellitus E11.42 [facility] [place] [address], [place] [id number] Oct, Spinal stenosis, unspecified spinal region M48.00 [facility] [place] [address], [place] [id number] Sep, Diabetic polyneuropathy associated with type 2 diabetes mellitus E11.42 ; RLS (restless legs syndrome) G25.81 ; Spinal stenosis, unspecified spinal region M48.00 and Essential hypertension I10 [facility] [place] [address], [place] [id number] Sep, [facility] [place] [address], [place] [id number] Sep, Spinal stenosis, unspecified spinal region M48.00 [facility] [place] [address], [place] [id number] Sep, [facility] [place] [address], [place] [id number] Aug, Spinal stenosis, unspecified spinal region M48.00 [facility] [place] [address] [address] July, [facility] [place] [address] [id number] July, Spinal stenosis, unspecified spinal region M48.00 [facility] [place] [address], [place] [id number] Jun, Type 2 diabetes mellitus with hyperglycemia E11.65 [facility] [place] [address] [id number] Jun, Spinal stenosis, unspecified spinal region M48.00 [facility] [place] [address], [place] [id number] May, Spinal stenosis, unspecified spinal region M48.00 [facility] [place] [address] [id number] Apr, Spinal stenosis, unspecified spinal region M48.00 [facility] [place] [address] [address] Mar, [facility] [place] [address] [id number] Mar, Type 2 diabetes mellitus with hyperglycemia E11.65 ; RLS (restless legs syndrome) G25.81 and Spinal stenosis, unspecified spinal region M48.00 [facility] [id number] [place] [address] Mar, [facility] [address] [id number] [id number] Mar, [facility] [address] [facility] [id number] Mar, [facility] [id number] [place] [address] [id number] Feb, [facility] [address] [address] Feb, [facility] [id number] [place] [address] [id number] Feb, [address] [id number] Feb, [facility] [address] [address] Feb, [facility] [address] [address] Feb, [facility] [address] [id number] Jan, [address] [id number] Dec, Diabetic polyneuropathy associated with type 2 diabetes mellitus E11.42 ; Other chronic pain G89.29 ; Essential hypertension I10 and Encounter for immunization Z23 [facility] [address] [id number] Dec, [facility] [address] [address] Nov, [facility] [address] [id number] Nov, [address] [id number] Nov, Diabetes type 2, controlled E11.9 [facility] [address] [place] [id number] Nov, Diabetes type 2, controlled E11.9 ; Other chronic pain G89.29 ; Essential hypertension I10 ; Diabetic polyneuropathy associated with type 2 diabetes mellitus E11.42 and RLS (restless legs syndrome) G25.81 [facility] [address] [address] Nov, [facility] [address] [id number] Oct, [facility] [address] [id number] Oct, [facility] [address] [id number] Oct, [facility] [address] [address] Oct, [facility] [address] [id number] Sep, [facility] [address] [id number] Sep, [facility] [address] [address] Sep, Dental examination Z01.20 [facility] [address] [address] Aug, [place] [id number] [place] [address] [id number] Aug, [facility] [address] [address] Aug, [facility] [address] [address] July, [facility] [address] [address] July, [facility] [address] [address] July, [address] [id number] July, [facility] [place] [address] [facility]07757[place] [id number] July, [facility] [address] [id number] [place] [address] [id number] July, [facility] [place] [address] [facility] [place] [address] July, [facility] [id number] [place] [address] [id number] Jun, Diabetes type 2, controlled E11.9 [facility] [place] [address] [id number] Jun, [facility] [address] [id number] May, Diabetes type 1, uncontrolled E10.65 [facility] [place] [address] [id number] May, [facility] [address] [id number] Apr, [facility] [place] [address] [id number] Apr, [facility] [id number] [place] [address] [id number] Mar, [facility] [id number] [place] [address] [id number] Mar, [facility] [id number] [place] [address] [id number] Mar, [facility] [address] [id number] Mar, Diabetes type 1, uncontrolled E10.65 [facility] [id number] [place] [address] [id number] Feb, [facility] [address] [place] [address] [id number] Feb, [facility] [address] [id number] [place] [address] [id number] Feb, [facility] [address] [address] [facility]07757H [facility] [id number] Jan, [facility] [place] [address] [facility] [place] [address] [id number] Jan, Dysuria R30.0 and Acute cystitis with hematuria N30.[address] [id number] Jan, [address] [id number] Dec, Gastroenteritis K52.9 and Headache, unspecified headache type R51 [address] [id number] Dec, [address] [id number] Dec, Chronic back pain 724.5 [address] [facility] [id number] [id number] Dec, [address] [id number] Nov, Chronic back pain 724.5 and Diabetes mellitus without mention of complication, type II or unspecified type, uncontrolled 250.[address] [id number] Nov, [address] [id number] Oct, [address] [id number] Sep, Diabetes mellitus without mention of complication, type II or unspecified type, uncontrolled 250.02 and Urinary tract infection 599.[address] [id number] July, [facility] [address] [address] Jun, [facility] [address] [address] Jun, [address] [id number] May, [facility] [address] [address] May, [address] [id number] May, [facility] [address] [facility] [place] [address] May, [facility] [place] [address] [id number] [id number] Mar, [facility] [address] [facility] [place] [address] Mar, [facility] [id number] [place] [address] Mar, [facility] [place] [address] [id number] [id number] Mar, [facility] [place] [address] [id number] [id number] Feb, [facility] [id number] [place] [address] Feb, [facility] [place] [address] [id number] [id number] Feb, [facility] [id number] [place] [address] Feb, [facility] [address] [facility] [place] [address] Feb, [facility] [place] [address] 24024[place] [id number] Feb, [facility] [place] [address] [facility]07757[place], [place] [id number] Feb, [facility] [id number] [place] [address] Feb, [facility] [address] [facility] [place] [address] Feb, [facility] [place] [address] 24024[place] [id number] Jan, [facility] [address] [facility] [place] [address] Jan, [facility] [place] [address] [facility]07757[facility] [id number] Jan, [facility] [address] [facility] [place] [address] Jan, [facility] [place] [address] [facility]07757[facility] [id number] Dec, [facility] [address] [facility] [place] [address] Dec, [facility] [address] [facility] [place] [address] Dec, [facility] [address] [facility] [place] [address] Dec, [facility] [place] [address] [facility]07757[facility] [id number] Dec, [facility] [address] [facility] [place] [address] Dec, [facility] [place] [address] [facility]07757[facility] [id number] Nov, [facility] [id number] [place] [address] Nov, [facility] [place] [address] [id number] [id number] Oct, [facility] [address] [facility] [place] [address] Oct, [facility] [address] [facility] [place] [address] Sep, [facility] [place] [address] [facility]07757[place] [id number] Sep, [facility] [place] [address] [id number], [place] [id number] Aug, [facility] [address] [facility] [place] [address] Aug, [facility] [place] [address] [place], [place] [id number] July, [facility] [address] [id number] [place] [address] July, [facility] [place] [address] [id number], [place] [id number] July, [facility] [address] [facility] [place] [address] July, [facility] [address] [id number] [place] [address] July, [facility] [address] [id number] [place] [address] Jun, [facility] [address] [id number] [id number] Jun, [facility] [address] [id number] [id number] Jun, [facility] [address] [id number] [place] [address] Jun, [facility] [address] [id number] [place] [address] Jun, [facility] [address] [id number] [place] [address] May, [facility] [place] [address] [id number] [id number] Apr, [facility] [address] [id number] [place] [address] Apr, [facility] [address] [id number] [id number] Apr, [facility] [address] [id number] [place] [address] Apr, [facility] [id number] [place] [address] Mar, [facility] [address] [id number] [place] [address] Mar, [facility] [address] [id number] [place] [address] Mar, [facility] [address] [id number] [id number] Mar, [facility] [id number] [place] [address] Mar, [facility] [id number] [place] [address] Mar, [facility] [address] [id number] [place] [address] Feb, [facility] [address] [id number] [id number] Feb, [facility] [id number] [place] [address] Feb, [facility] [id number] [place] [address], [place] [id number] Feb, [facility] [id number] [place] [address] Feb, [facility] [id number] [place] [address], [place] [id number] Feb, [facility] [id number] [place] [address] Feb, [facility] [place] [id number] [place] [address], [place] [id number] Jan, [facility] [id number] [place] [address] Jan, [facility] [id number] [place] [address] Dec, [facility] [address] [id number] [id number] Dec, [facility] [id number] [place] [address] Nov, [facility] [address] [id number] [id number] Oct, [facility] [address] [id number] [id number] Oct, [facility] [id number] [place] [address], [place] [id number] Sep, [facility] [id number] [place] [address] Sep, [facility] [address] [id number] [address] Sep, [facility] [address], [place] [id number] Sep, [facility] [address] [id number] [address] Sep, [facility] [address] [id number] [address] Sep, [facility] [address] [facility]757[facility] [address] Sep, [facility] [place] [facility] [id number] [place] [address] Aug, [facility] [address] [id number] [id number] Aug, [facility] [place] [facility] [id number] [place] [address] July, [facility] [id number] [place] [address], [place] [id number] July, [facility] [place] [facility] [id number] [place] [address] July, [facility] [address] [id number] [address] Jun, [facility] [address] [id number] [id number] Jun, [facility] [id number] [place] [address], [place] [address]60[address]6059 Jun, [facility] [place] [facility] [id number] [place] [address] Jun, [facility] [address] [id number] [address]80555786 May, [facility] [address] [id number] 590242118 May, [facility] [place] [facility] [id number] [place] [address] May, [facility] [id number] [place] [address], [place] [address]93[address]46[address] Apr, [facility] [id number] [place] [address] Apr, [facility] [id number] [place] [id number] Apr, [facility] [address] [id number] [id number] Apr, [facility] [id number] [place] [address] Mar, [facility] [address] [id number] [id number] Mar, [facility] [id number] [place] [address], [place] [id number] Mar, [facility] [address] [id number] [address]560012 Feb, [facility] [id number] [place] [address] Feb, [facility] [address] [id number] 032816242 Jan, [facility] [address] [id number] 74[address]13[address] Jan, [facility] [address] [address] Jan, [facility] [id number] [place] [address] Jan, [facility] [address] [id number] [id number] Jan, [facility] [id number] [place] [address] Jan, [facility] [address] [id number] [id number] Dec, [facility] [id number] [place] [address] Dec, [facility] [address] [id number] 85[address] Dec, [facility] [address] [address] Dec, [facility] [address] [id number] 864[address]246 Dec, [facility] [id number] [place] [id number] Nov, [facility] [address] [id number] [id number] Nov, [facility] [address] [id number] [id number] Oct, [facility] [address] [id number] 3934[address]777 Oct, [facility] [address] [id number] 528341709 Sep, [facility] [address] [id number] [place] [address], [place] 381014560 Sep, [facility] [address] [id number] [facility] 589602860 Sep, [facility] [address] [id number] 265894496 Aug, [facility] [address] [id number] 685403745 Aug, [facility] [address] [id number] [place] [address], [place] [id number] July, [facility] [address] [id number] 314245491 July, [facility] [address] [id number] 041224673 July, [facility] [address] [id number] [id number] July, [facility] [place] [address] [id number] [place] [address] Jun, [facility] [address] [id number] [id number] Jun, [facility] [address] [facility]75575[facility] 578598329 Jun, [facility] [id number] [place] [address], [place] [id number] Jun, [facility] [address] [id number] [facility] 152303100 May, [facility] [address] [id number] 796893241 May, [facility] [id number] [place] [address] [id number] Apr, 2011 [facility] [address] [facility] [place] [id number] Apr, 2011 [facility] [address] [facility]07757[facility] 482577534 Apr, 2011 [facility] [address] [facility]07757[facility] 537545964 Apr, [facility] [address] [facility]07757[facility] 192280499 Apr, [facility] [id number] [place] [address] Apr, [facility] [address] [facility]07757[facility] 136857044 Apr, [facility] [address] [id number] [id number] Apr, [facility] [address] [id number] 705374288 Mar, [facility] [address] [address] Feb, [facility] [address] [address] Feb, [facility] [address] [address] Feb, [facility] [address] [address] Feb, [facility] [address] [address] Jan, [facility] [address] [address] Jan, [facility] [address] [address] Jan, [facility] [address] [address] Dec, [facility] [address] [address] Dec, [facility] [address] [id number] [place] [address] 17 Aug, 2010 [facility] [address] [id number] [place] [address] 16 Aug, 2010 [facility] [address] [id number] [place] [address] 30 Feb, 2010 [facility] [address] [id number] [place] [address] Feb, [facility] [address] [id number] [place] [address] Jan, [facility] [address] [id number] [place] [address] Jan, [facility] [address] [id number] [place] [address] Dec, [facility] [address] [id number] [place] [address] Dec, [facility] [address] [id number] [place] [address] Dec, [facility] [address] [id number] [place] [address] May, [facility] [address] [id number] [place] [address] Mar, [facility] [address] [id number] [place] [address] Feb, [facility] [address] [id number] [place] [address] 08 Feb, 2009 [facility] [address] [id number] [place] [address] Feb, [facility] [address] [id number] [place] [address] 17 Jan, 2009 [facility] [address] [id number] [place] [address] Jan, [facility] [address] [id number] [place] [address] Oct, [facility] [address] [id number] [place] [address] July, [facility] [address] [id number] [place] [address] Apr, [facility] [address] [id number] [place] [address] Jan, [facility] [address] [id number] [place] [address] Jan, IMMUNIZATIONS No Known Immunizations SOCIAL HISTORY [...] Hospitalization History surgeries, childbirth Hospitalization History [facility]- Possible Stroke Hospitalization History Hospital stay due to acute renal didier lure 10/2018
--- OUTSIDE RECORDS SUMMARY | 2019-06-03 14:45 | XMS REPORT ---
Author Author Emelyn Lira Organization [facility] Address [address] [place] [address] Care Team Providers Care Prison Classification Counselor Name Role Phone [place] Lira Unavailable PROBLEMS Type Condition ICD9-CM Code ACR03-BW Code Onset Dates Condition S tatus SNOMED Code Problem Essential hypertension I10 Active 19517537 Problem RLS (restless legs syndrome) G25.81 A ctive 12093324 Problem Other chronic pain G89.29 Active 8 3598558 Problem Diabetic polyneuropathy associated with type 2 d iabetes mellitus E11.42 Active 61749163 Problem Spinal stenosis, unspecified spinal region M48.00 Active 45730744 Problem Encounter for immunization Z23 Act nicole 338473969 Problem Type 2 diabetes mellitus with other specified complication E11.69 Active 45316190720207 Problem Reactive depression F32.9 Active 82922131 Problem Hypoglycemia E16.2 Active 4481246 03 Problem Moderate episode of recurrent major depressive disorder F33.1 Active 546851074 Problem Hyperlipidemia, unspecified E78.5 Ac tive 44952730 Problem Falling R29.6 Active 415438822 Problem Type 2 diabetes mellitus with hyperglycemia E11.65 Active 777422264885383 Problem 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 Active 735583094 Problem Type 2 diabetes mellitus with other diabetic kid rory complication E11.29 Active 01029577 Problem Unsteady gait R26.81 Active 000604 008 Problem Moderate episode of recurrent major depressive disorder F33.1 Active 770982808 ALLERGIES No Information ENCOUNTERS Encounter Location Date Diagnosis [address] [place] [address] 2 0 Apr, [address] [place] [address] 1 5 Mar, 2019 Spinal stenosis, unspecified spinal region M48.00 [facility] [address] [facility] [place] [id number] Feb, Essential hypertension I10 ; Type 2 diabetes mellitus with hyperglycemia E11.65 ; Falling R29.6 and Spinal stenosis, unspecified spinal region M48.[address] [id number] Feb, Vertigo R42 and Laceration of right foot, initial encounter S91.311A [address] [id number] Jan, Essential hypertension I10 and Type 2 diabetes mellitus with hyperglycemia E11.[address] [id number] Jan, Spinal stenosis, unspecified spinal region M48.[address] [id number] Jan, Essential hypertension I10 and Spinal stenosis, unspecified spinal region M48.00 [place] [id number] [place] [address] [id number] Jan, [address] [id number] Jan, [address] [id number] Dec, Type 2 diabetes mellitus with other specified complication E11.69 and Other chronic pain G89.[address] [id number] Dec, Spinal stenosis, unspecified spinal region M48.00 [facility] [address] [facility] [id number] [place] [address] 14 Dec, 2018 Type 2 diabetes mellitus with other diab etic kidney complication E11.[address] [id number] Dec, Type 2 diabetes mellitus with other diabetic kidney complication E11.29 ; Fatigue, unspecified type R53.83 ; Moderate episode of recurrent major depressive disorder F33.1 and Acute cystitis with hematuria N30.[address] [id number] 08 Dec, 2018 [facility] [address] 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 [facility] [id number] Oct, Diabetic polyneuropathy associated with type 2 diabetes mellitus E11.42 ; Essential hypertension I10 ; Acute renal failure, unspecified acute renal failure type N17.9 and Spinal stenosis, unspecified spinal region M48.[address] [id number] Oct, Essential hypertension I10 ; Diabetic polyneuropathy associated with type 2 diabetes mellitus E11.42 and Acute renal failure, unspecified acute renal failure type N17.9 [facility] [address] [id number]. [facility] [id number] Oct, [address] [id number] Oct, [address] [id number] Oct, [address] [id number] Oct, Essential hypertension I10 ; Diabetic polyneuropathy associated with type 2 diabetes mellitus E11.42 and Acute renal failure, unspecified acute renal failure type N17.[address] [id number] Oct, Spinal stenosis, unspecified spinal region M48.[address] [id number] Sep, Spinal stenosis, unspecified spinal region M48.00 [facility] [address] [place] [id number] [id number] Sep, Type 2 diabetes mellitus with other specified complication E11.69 ; Vertigo R42 and Spinal stenosis, unspecified spinal region M48.00 [facility] [address] [place] [address] [id number] Sep, Spinal stenosis, unspecified spinal region M48.00 [facility] [address], [place] [id number] Sep, Spinal stenosis, unspecified spinal region M48.00 [facility] [address], [place] [id number] Aug, Spinal stenosis, unspecified spinal region M48.00 [facility] [address], [place] [id number] July, Diabetic polyneuropathy associated with type 2 diabetes mellitus E11.42 [facility] [address], [place] [id number] July, Spinal stenosis, unspecified spinal region M48.00 [facility] [address], [place] [id number] July, Spinal stenosis, unspecified spinal region M48.00 [facility] [address], [place] [id number] Jun, Spinal stenosis, unspecified spinal region M48.00 [facility] [address], [place] [id number] Jun, Diabetic polyneuropathy associated with type 2 diabetes mellitus E11.42 [facility] [address], [place] [id number] May, Diabetic polyneuropathy associated with type 2 diabetes mellitus E11.42 [facility] [place] [address], [place] [id number] May, [facility] [address], [place] [id number] May, Spinal stenosis, unspecified spinal region M48.00 [facility] [place] [address], [place] [id number] Apr, Spinal stenosis, unspecified spinal region M48.00 [facility] [address] [id number] [place] [id number] Apr, [facility] [address] [facility] [id number] [address] [place] [address] Apr, Puncture wound T14.8XXA ; Ab rasion T14.8XXA and Encounter for immunization Z23 [address] [id number] Mar, Spinal stenosis, unspecified spinal region M48.00 [facility] [address] [id number] Feb, Spinal stenosis, unspecified spinal region M48.[address] [id number] Jan, Type 2 diabetes mellitus with hyperglycemia E11.65 ; Diabetes type 2, controlled E11.9 ; Spinal stenosis, unspecified spinal region M48.00 and Encounter for immunization Z23 [facility] [address] [address] Dec, Spinal stenosis, unspecified spinal joesph on M48.00 [facility] [address] [address] Dec, [facility] [address] [address] Dec, [facility] [address] [address] Dec, [facility] [address] [id number] Nov, [facility] [address] [id number] Nov, Spinal stenosis, unspecified spinal region M48.00 [facility] [address] [id number] Oct, Spinal stenosis, unspecified spinal region M48.00 [facility] [address] [id number] Oct, Spinal stenosis, unspecified spinal region M48.00 [facility] [place] [address], [place] [id number] Oct, [facility] [place] [address], [place] [id number] Oct, Diabetic polyneuropathy associated with type 2 diabetes mellitus E11.42 ; RLS (restless legs syndrome) G25.81 ; Spinal stenosis, unspecified spinal region M48.00 and Acute cystitis with hematuria N30.01 [facility] [place] [address], [place] [id number] Oct, [facility] [place] [address], [place] [id number] Oct, Spinal stenosis, unspecified spinal region M48.00 [facility] [place] [address], [place] [id number] Sep, Diabetic polyneuropathy associated with type 2 diabetes mellitus E11.42 [facility] [address] [address] Sep, [facility] [place] [address] [id number] Sep, Spinal stenosis, unspecified spinal region M48.00 [facility] [place] [address] [address] Aug, [facility] [place] [address] [id number] Aug, Spinal stenosis, unspecified spinal region M48.00 [facility] [place] [address] [id number] Aug, Spinal stenosis, unspecified spinal region M48.00 [facility] [place] [address] [id number] July, [facility] [place] [address] [id number] July, Diabetic polyneuropathy associated with type 2 diabetes mellitus E11.42 ; Type 2 diabetes mellitus with hyperglycemia E11.65 ; RLS (restless legs syndrome) G25.81 and Essential hypertension I10 [facility] [place] [address] [id number] July, Spinal stenosis, unspecified spinal region M48.00 [facility] [place] [address] [place] [id number] [place] [address] [id number] July, [facility] [address] [id number] Jun, Type 2 diabetes mellitus with other specified complication E11.69 [facility] [place] [address] [place] [id number] [place] [address] [id number] Jun, Spinal stenosis, unspecified spinal region M48.00 [facility] [place] [address] [id number] 05 Jun, 2017 Hypoglycemia E16.2 [facility] [place] [address] [id number] May, Hypoglycemia E16.2 ; Acute cystitis with hematuria N30.01 and Essential hypertension I10 [facility] [address] [facility] [id number] [address] [place] [address] May, [address] [id number] May, Spinal stenosis, unspecified spinal region M48.[address] [id number] May, Reactive depression F32.[address] [id number] May, [address] [id number] Apr, [facility] [address] [id number] [facility] [place] [id number] Apr, [facility] [address] [id number] [place] [id number] Apr, [address] [id number] Apr, [address] [id number] Apr, Spinal stenosis, unspecified spinal region M48.00 [facility] [address] [id number] 08 Apr, 2017 Type 2 diabetes mellitus with other specified complication E11.69 ; Spinal stenosis, unspecified spinal region M48.00 ; Reactive depression F32.9 and Essential hypertension I10 [place] [address] [facility] [id number] [place] [id number] Apr, [facility] [address] [place] [id number] [place] [address] [id number] Mar, Spinal stenosis, unspecified spinal region M48.[address] [id number] Feb, Acute non-recurrent maxillary sinusitis J01.00 and Essential hypertension I10 [address] [id number] Feb, Spinal stenosis, unspecified spinal region M48.[address] [id number] Feb, Type 2 diabetes mellitus with other specified complication E11.[address] [id number] Feb, Type 2 diabetes mellitus with other specified complication E11.69 and Essential hypertension I10 [address] [id number] Feb, [address] [id number] Feb, [address] [id number] Jan, Spinal stenosis, unspecified spinal region M48.[address] [id number] Jan, Diabetic polyneuropathy associated with type 2 diabetes mellitus E11.[address] [id number] 14 Jan, 2017 Diabetic polyneuropathy associated with type 2 diabetes mellitus E11.[address] [id number] Jan, Type 2 diabetes mellitus with hyperglycemia E11.65 ; Type 2 diabetes mellitus with other specified complication E11.69 ; Spinal stenosis, unspecified spinal region M48.00 and Essential hypertension I10 [address] [id number] Jan, Diabetic polyneuropathy associated with type 2 diabetes mellitus E11.42 [place] [address] [place] [address] [id number] Dec, [address] [id number] Dec, Diabetic polyneuropathy associated with type 2 diabetes mellitus E11.42 ; Type 2 diabetes mellitus with other specified complication E11.69 ; Hyperlipidemia, unspecified E78.5 ; Thyroid disorder E07.9 and Thyroid disorder screening Z13.[address] [id number] Dec, Diabetic polyneuropathy associated with type 2 diabetes mellitus E11.42 [facility] [address] [facility]7570 [place] [address] Dec, Diabetic polyneuropathy associated with type 2 diabetes mellitus E11.[address] [id number] Dec, Spinal stenosis, unspecified spinal region M48.[address] [id number] Dec, [address] [id number] 18 Nov, 2016 Diabetic polyneuropathy associated with type 2 diabetes mellitus E11.[address] [id number] 15 Nov, 2016 Other chronic pain G89.[address] [id number] 14 Nov, 2016 Spinal stenosis, unspecified spinal region M48.[address] [id number] 16 Oct, 2016 Spinal stenosis, unspecified spinal region M48.00 ; Essential hypertension I10 ; RLS (restless legs syndrome) G25.81 and Diabetic polyneuropathy associated with type 2 diabetes mellitus E11.42 [place] [address] [place] [address] [id number] Oct, Spinal stenosis, unspecified spinal region M48.[address] [id number] Sep, Diabetic polyneuropathy associated with type 2 diabetes mellitus E11.42 ; RLS (restless legs syndrome) G25.81 ; Spinal stenosis, unspecified spinal region M48.00 and Essential hypertension I10 [facility] [place] [address] [id number] Sep, [facility] [place] [address] [id number] Sep, Spinal stenosis, unspecified spinal region M48.00 [facility] [place] [address] [id number] Sep, [facility] [place] [address] [id number] Aug, Spinal stenosis, unspecified spinal region M48.00 [facility] [address] [address] July, [facility] [address] [id number] July, Spinal stenosis, unspecified spinal region M48.00 [facility] [place] [address] [id number] Jun, Type 2 diabetes mellitus with hyperglycemia E11.65 [facility] [place] [address] [id number] Jun, Spinal stenosis, unspecified spinal region M48.00 [facility] [place] [address] [id number] May, Spinal stenosis, unspecified spinal region M48.00 [facility] [address] [id number] Apr, Spinal stenosis, unspecified spinal region M48.00 [facility] [address] [address] Mar, [facility] [place] [address] [id number] Mar, Type 2 diabetes mellitus with hyperglycemia E11.65 ; RLS (restless legs syndrome) G25.81 and Spinal stenosis, unspecified spinal region M48.00 [facility] [address] [address] Mar, [facility] 120 [facility]757G [place] [id number] Mar, [facility] [place] [address] [facility]757H [facility] [id number] Mar, [facility] [place] [address] [facility] [id number] Feb, [facility] [address] [place] [id number] [place] [address] Feb, [facility] [address] [place] [id number] Feb, [place] [id number] [place] [address] [id number] Feb, [facility] [address] [address] Feb, [facility] [address] [place] [id number] [place] [address] Feb, [place] [id number] [place] [address] [id number] Jan, [facility] [address] [place] [id number] Dec, Diabetic polyneuropathy associated with type 2 diabetes mellitus E11.42 ; Other chronic pain G89.29 ; Essential hypertension I10 and Encounter for immunization Z23 [place] [id number] [place] [address] [id number] Dec, [facility] [address] [place] [id number] [place] [address] Nov, [place] [address] [place] [address] [id number] Nov, [address] [id number] Nov, Diabetes type 2, controlled E11.[address] [id number] Nov, Diabetes type 2, controlled E11.9 ; Other chronic pain G89.29 ; Essential hypertension I10 ; Diabetic polyneuropathy associated with type 2 diabetes mellitus E11.42 and RLS (restless legs syndrome) G25.81 [facility] [place] [facility] [address] [place] [id number] [place] [address] Nov, [facility] [address] [place] [id number] [place] [address], [place] [id number] Oct, [facility] [address] [place] [id number] [id number] Oct, [facility] [place] [address] [place] [id number] [place] [address], [place] [id number] Oct, [facility] [place] [facility] [address] [address] Oct, [facility] [address] [place] [id number] [place] [address], [place] [id number] Sep, [facility] [place] [address] [id number] Sep, [facility] [address] [address] Sep, Dental examination Z01.20 [facility] [place] [facility] [address] [address] Aug, [facility] [place] [address] [place] [id number] [place] [address] [id number] Aug, [facility] [address] [address] Aug, [facility] [address] [address] July, [facility] [address] [address] July, [facility] [address] [address] July, [facility] [place] [address] [place] [id number] [place] [address] [id number] July, [facility] [place] [address] [id number] July, [facility] [place] [address] [place] [id number] [place] [address] [id number] July, [facility] [address] [address] July, [facility] [address]757[place] [id number] Jun, Diabetes type 2, controlled E11.9 [facility] [place] [id number] [place] [address] [id number] Jun, [facility] [address] [id number] May, Diabetes type 1, uncontrolled E10.65 [facility] [address] [id number] May, [facility] [address] [id number] Apr, [facility] [address] [id number] Apr, [facility] [place] [id number] [place] [address] [id number] Mar, [facility] [address] [id number] Mar, [facility] [address] [id number] Mar, [address] [id number] Mar, Diabetes type 1, uncontrolled E10.65 [place] [id number] [place] [address] [id number] Feb, [facility] [address] [place] [address] [id number] Feb, [facility] [place] [id number] [place] [address] [id number] Feb, [facility] [address] [facility]757H [place] [id number] Jan, [facility] [address] [id number] Jan, Dysuria R30.0 and Acute cystitis with hematuria N30.01 [facility] [address] [place] [address] [id number] Jan, [facility] [address] [id number] Dec, Gastroenteritis K52.9 and Headache, unspecified headache type R51 [address] [id number] Dec, [address] [id number] Dec, Chronic back pain 724.5 [facility] [place] [address] [facility] [id number] [place] [id number] Dec, [address] [id number] Nov, Chronic back pain 724.5 and Diabetes mellitus without mention of complication, type II or unspecified type, uncontrolled 250.[address] [id number] Nov, [address] [id number] Oct, [address] [id number] Sep, Diabetes mellitus without mention of complication, type II or unspecified type, uncontrolled 250.02 and Urinary tract infection 599.[address] [id number] July, [facility] [address] [address] Jun, [facility] [address] [address] Jun, [address] [id number] May, [facility] [address] [address] May, [address] [id number] May, [facility] [address] [address] May, [address] [id number] Mar, [facility] [address] [id number] [place] [address] Mar, [facility] [address] [facility] [place] [address] Mar, [facility] [address] [facility]757[facility] [id number] Mar, [facility] [address] [place] [id number] [id number] Feb, [facility] [address] [id number] [place] [address] Feb, [facility] [address] [place] 95612757[facility] [id number] Feb, [facility] [address] [id number] [place] [address] Feb, [facility] [address] [id number] [place] [address] Feb, [facility] [address] [place] 95612757[facility] [id number] Feb, [facility] [address] [place] 95612757[facility] [id number] Feb, [facility] [address] [id number] [place] [address] Feb, [facility] [address] [id number] [place] [address] Feb, [facility] [address] [place] [id number] Jan, [facility] [address] [id number] [place] [address] Jan, [facility] [address] [id number] [place] [id number] Jan, [facility] [address] [id number] [place] [address] Jan, [facility] [address] [id number] [id number] Dec, [facility] [address] [id number] [place] [address] Dec, [facility] [address] [id number] [place] [address] Dec, [facility] [address] [id number] [place] [address] Dec, [facility] [address] [id number] [place] [id number] Dec, [facility] [address] [address] [id number] [place] [address] Dec, [facility] [address] [id number] [id number] Nov, [facility] [address] [id number] [place] [address] Nov, [facility] [address] [id number] [id number] Oct, [facility] [id number] [place] [address] Oct, [facility] [id number] [place] [address] Sep, [facility] [address] [id number] [id number] Sep, [facility] [address] [id number] [id number] Aug, [facility] [address] [id number] [place] [address] Aug, [facility] [address] [id number] [id number] July, [facility] [address] [id number] [place] [address] July, [facility] [address] [facility]07757[facility] [id number] July, [facility] [address] [id number] [place] [address] July, [facility] [address] [id number] [place] [address] July, [facility] [address] [id number] [place] [address] Jun, [facility] [place] [address] [id number] [place] [id number] Jun, [facility] [place] [address] [id number] [id number] Jun, [facility] [address] [id number] [place] [address] Jun, [facility] [id number] [place] [address] Jun, [facility] [address] [id number] [place] [address] May, [facility] [place] [address] [id number] [id number] Apr, [facility] [address] [id number] [place] [address] Apr, [facility] [place] [address] [id number] [id number] Apr, [facility] [id number] [place] [address] Apr, [facility] [id number] [place] [address] Mar, [facility] [address] [id number] [place] [address] Mar, [facility] [id number] [place] [address] Mar, [facility] [address] [id number] [id number] Mar, [facility] [address] [id number] [place] [address] Mar, [facility] [id number] [place] [address] Mar, [facility] [address] [id number] [place] [address] Feb, [facility] [place] [address] [facility]07[place] [id number] Feb, [facility] [id number] [place] [address] Feb, [facility] [address] [id number] [id number] Feb, [facility] [id number] [place] [address] Feb, [facility] [id number] [place] [address], [place] [id number] Feb, [facility] [id number] [place] [address] Feb, [facility] [address] [id number] [id number] Jan, [facility] [place] [facility] [id number] [place] [address] Jan, [facility] [place] [facility] [id number] [place] [address] Dec, [facility] [id number] [place] [address] [id number] Dec, [facility] [place] [facility] [id number] [place] [address] Nov, [facility] [id number] [place] [address] [id number] Oct, [facility] [address] [id number] [id number] Oct, [facility] [id number] [place] [address] [id number] Sep, [facility] [id number] [place] [address] Sep, [facility] [id number] [place] [address], [place] [id number] Sep, [facility] [id number] [place] [address], [place] [id number] Sep, [facility] [id number] [id number] Sep, [facility] [id number] [place] [address], [place] [id number] Sep, [facility] [address] [id number] [id number] Sep, [facility] [place] [facility] [id number] [place] [address] Aug, [facility] [address] [id number] [id number] Aug, [facility] [place] [facility] [id number] [place] [address] July, [facility] [id number] [place] [address], [place] [id number] July, [facility] [place] [facility] [address] [address] July, [facility] [address] [id number] [id number] Jun, [facility] [address] [id number] [id number] Jun, [facility] [id number] [place] [address], [place] [id number] Jun, [facility] [place] [facility] [id number] [place] [address] Jun, [facility] [id number] [place] [address], [place] [id number] May, [facility] [address] [id number] [id number] May, [facility] [place] [facility] [id number] [place] [address] May, [facility] [id number] [place] [address], [place] [id number] Apr, [facility] [place] [facility] [address] [id number] [place] [address] Apr, [facility] [id number] [place] [address], [place] [id number] Apr, [facility] [id number] [place] [address], [place] [id number] Apr, [facility] [place] [facility] [id number] [place] [address] Mar, [facility] [address] [id number] [id number] Mar, [facility] [address] [facility]07757[facility] [id number] Mar, [facility] [address] [facility]07757[facility] [id number] Feb, [facility] [place] [facility] [id number] [place] [address] Feb, [facility] [id number] [place] [address], [place] [id number] Jan, [facility] [id number] [place] [address], [place] [id number] Jan, [facility] [place] [facility] [address] [address] Jan, [facility] [place] [facility] [address] [address] Jan, [facility] [place] [id number] [place] [address], [place] [id number] Jan, [facility] [place] [facility] [id number] [place] [address] Jan, [facility] [place] [id number] [place] [address] [id number] Dec, [facility] [place] [facility] [address] [address] Dec, [facility] [place] [id number] [place] [address] [id number] Dec, [facility] [place] [facility] [address] [address] Dec, [facility] [place] [address] [id number] [id number] Dec, [facility] [id number] [place] [address], [place] [id number] Nov, [facility] [address] [id number] [id number] Nov, [facility] [id number] [place] [address], [place] [id number] Oct, [facility] [address], [place] [id number] Oct, [facility] [address] [id number] [id number] Sep, [facility] [address] [id number] [id number] Sep, [facility] [address] [id number] [id number] Sep, [facility] [address] [id number] [id number] Aug, [facility] [address] [id number] COUNTY [facility] [id number] Aug, [facility] [address] [id number] [id number] July, [facility] [address] [id number] [id number] July, [facility] [address] [id number] [facility] [id number] July, [facility] [id number] [place] [address], [place] [id number] July, [facility] [address] [id number] [place] [address] Jun, [facility] [address] [id number] [id number] Jun, [facility] [address] [id number] [id number] Jun, [facility] [address] [id number] [facility] [id number] Jun, [facility] [address] [id number] [id number] May, [facility] [address] [id number] [facility] [id number] May, [facility] [address] [id number] [place] [address], [place] [id number] Apr, [facility] [address] [id number] [id number] Apr, [facility] [address] [id number] [facility] [id number] Apr, [facility] [address] [id number] [place] [id number] 07 Apr, 2011 [facility] [place] [address] [facility]07[address]G [place] [id number] Apr, [facility] [id number] [place] [address] Apr, [facility] [place] [address] [facility]07757[place] [id number] Apr, [facility] [place] [address] [facility]07757[place] [id number] Apr, [facility] [place] [address] [facility]07757[place] [id number] Mar, [facility] [address] [address] Feb, [facility] [id number] [place] [address] Feb, [facility] [address] [address] Feb, [facility] [id number] [place] [address] Feb, [facility] [address] [address] Jan, [facility] [id number] [place] [address] Jan, [facility] [address] [address] Jan, [facility] [id number] [place] [address] Dec, [facility] [id number] [place] [address] Dec, [facility] [id number] [place] [address] Aug, [facility] [address] [address] Aug, [facility] [address] [address] 30 Feb, 2010 [facility] [address] [id number] [place] [address] Feb, [facility] [address] [id number] [place] [address] Jan, [facility] [address] [id number] [place] [address] Jan, [facility] [address] [id number] [place] [address] Dec, [facility] [address] [id number] [place] [address] Dec, [facility] [address] [id number] [place] [address] Dec, [facility] [address] [id number] [place] [address] May, [facility] [address] [id number] [place] [address] Mar, [facility] [address] [id number] [place] [address] Feb, [facility] [address] [id number] [place] [address] Feb, [facility] [address] [id number] [place] [address] Feb, [facility] [address] [id number] [place] [address] Jan, [facility] [address] [id number] [place] [address] Jan, [facility] [address] [id number] [place] [address] Oct, [facility] [address] [id number] [place] [address] July, [facility] [address] [id number] [place] [address] Apr, [facility] [address] [id number] [place] [address] Jan, [facility] [address] [id number] [place] [address] Jan, IMMUNIZATIONS No Known Immunizations SOCIAL HISTORY Never Assessed REASON FOR VISIT PLAN OF CARE VITAL SIGNS Height 64 in 2013-07-24 Weight 159.8 lbs 2013-07-24 Temperature 98.1 degrees Fahrenheit 2013-07-24 Heart Rate 88 bpm 2013-07-24 Respiratory Rate 20 2013-07-24 Blood pressure systolic 142 mmHg 2013-07-24 Blood pressure diastolic 82 mmHg 2013-07-24 MEDICATIONS Unknown Medications RESULTS No Results PROCEDURES [...] Hospitalization History surgeries, childbirth Hospitalization History ED [facility]- Possible Stroke Hospitalization History Hospital stay due to acute renal didier lure 10/2018
--- OUTSIDE RECORDS SUMMARY | 2019-06-03 14:46 | XMS REPORT ---
Author Author Emelyn Lira Organization [facility] Address [address] [place] [address] Care Team Providers Care Net Maker Name Role Phone [place] Lira Unavailable PROBLEMS Type Condition ICD9-CM Code ART91-JO Code Onset Dates Condition S tatus SNOMED Code Problem Essential hypertension I10 Active 31902253 Problem Diabetic polyneuropathy associated with type 2 d iabetes mellitus E11.42 Active 47117372 Problem Other chronic pain G89.29 Active 8 8702255 Problem RLS (restless legs syndrome) G25.81 A ctive 19378728 Problem Type 2 diabetes mellitus with hyperglycemia E11.65 Active 554940359164252 Problem Encounter for immunization Z23 Act nicole 691662561 Problem Type 2 diabetes mellitus with other specified complication E11.69 Active 34867389663476 Problem Reactive depression F32.9 Active 87294918 Problem Hypoglycemia E16.2 Active 2175815 03 Problem Moderate episode of recurrent major depressive disorder F33.1 Active 005500493 Problem Hyperlipidemia, unspecified E78.5 Ac tive 01846558 Problem Falling R29.6 Active 648681858 Problem Spinal stenosis, unspecified spinal region M48.00 Active 41266412 Problem Type 2 diabetes mellitus with other diabetic kid rory complication E11.29 Active 39147798 Problem 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 Active 462106361 Problem Unsteady gait R26.81 Active 289107 008 Problem Moderate episode of recurrent major depressive disorder F33.1 Active 801365212 ALLERGIES No Information ENCOUNTERS Encounter Location Date Diagnosis [address] [place] [address] 2 0 Apr, [address] [place] [address] 1 5 Mar, 2019 Spinal stenosis, unspecified spinal region M48.00 [facility] [address] [facility] [place] [id number] Feb, Essential hypertension I10 ; Type 2 diabetes mellitus with hyperglycemia E11.65 ; Falling R29.6 and Spinal stenosis, unspecified spinal region M48.[address] [id number] Feb, Vertigo R42 and Laceration of right foot, initial encounter S91.311A [address] [id number] Jan, Essential hypertension I10 and Type 2 diabetes mellitus with hyperglycemia E11.[address] [id number] Jan, Spinal stenosis, unspecified spinal region M48.[address] [id number] Jan, Essential hypertension I10 and Spinal stenosis, unspecified spinal region M48.00 [place] [id number] [place] [address] [id number] Jan, [address] [id number] Jan, [address] [id number] Dec, Type 2 diabetes mellitus with other specified complication E11.69 and Other chronic pain G89.[address] [id number] Dec, Spinal stenosis, unspecified spinal region M48.00 [facility] [address] [facility] [id number] [place] [address] 14 Dec, 2018 Type 2 diabetes mellitus with other diab etic kidney complication E11.[address] [id number] Dec, Type 2 diabetes mellitus with other diabetic kidney complication E11.29 ; Fatigue, unspecified type R53.83 ; Moderate episode of recurrent major depressive disorder F33.1 and Acute cystitis with hematuria N30.01 [address] [id number] 08 Dec, 2018 [facility] [address] [facility] [id number] [address] [place] [address] Dec, Injury of head, initial enco unter S09.90XA ; Unsteady gait R26.81 and Hyperglycemia R73.[address] [id number] Nov, Spinal stenosis, unspecified spinal region M48.[address] [id number] Nov, Type 2 diabetes mellitus with other diabetic kidney complication E11.29 and 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 [id number] Nov, Acute renal failure, unspecified acute renal failure type N17.9 [facility] [address] [id number] [id number] Oct, Diabetic polyneuropathy associated with type 2 diabetes mellitus E11.42 ; Essential hypertension I10 ; Acute renal failure, unspecified acute renal failure type N17.9 and Spinal stenosis, unspecified spinal region M48.[address] [id number] Oct, Essential hypertension I10 ; Diabetic polyneuropathy associated with type 2 diabetes mellitus E11.42 and Acute renal failure, unspecified acute renal failure type N17.9 [facility] [address] [facility] [address] [address] [id number] [id number] Oct, [address] [id number] Oct, [address] [id number] Oct, [address] [id number] Oct, Essential hypertension I10 ; Diabetic polyneuropathy associated with type 2 diabetes mellitus E11.42 and Acute renal failure, unspecified acute renal failure type N17.[address] [id number] Oct, Spinal stenosis, unspecified spinal region M48.[address] [id number] Sep, Spinal stenosis, unspecified spinal region M48.00 [facility] [address] [place] [id number] [place] [id number] Sep, Type 2 diabetes mellitus with other specified complication E11.69 ; Vertigo R42 and Spinal stenosis, unspecified spinal region M48.00 [facility] [address] [place] 726657[facility], [place] [id number] Sep, Spinal stenosis, unspecified spinal region M48.00 [facility] [address], [place] [id number] Sep, Spinal stenosis, unspecified spinal region M48.00 [facility] [address], [place] [id number] Aug, Spinal stenosis, unspecified spinal region M48.00 [facility] [address], [place] [id number] July, Diabetic polyneuropathy associated with type 2 diabetes mellitus E11.42 [facility] [address], [place] [id number] July, Spinal stenosis, unspecified spinal region M48.00 [facility] [address], [place] [id number] July, Spinal stenosis, unspecified spinal region M48.00 [facility] [address], [place] [id number] Jun, Spinal stenosis, unspecified spinal region M48.00 [facility] [address], [place] [id number] Jun, Diabetic polyneuropathy associated with type 2 diabetes mellitus E11.42 [facility] [address], [place] [id number] May, Diabetic polyneuropathy associated with type 2 diabetes mellitus E11.42 [facility] [address], [place] [id number] May, [facility] [address], [place] [id number] May, Spinal stenosis, unspecified spinal region M48.00 [facility] [address], [place] [id number] Apr, Spinal stenosis, unspecified spinal region M48.00 [facility] [address] [id number] [place] [id number] Apr, [facility] [address] [facility] [id number] [address] [place] [address] Apr, Puncture wound T14.8XXA ; Ab rasion T14.8XXA and Encounter for immunization Z23 [address] [id number] Mar, Spinal stenosis, unspecified spinal region M48.00 [facility] [address] [id number] Feb, Spinal stenosis, unspecified spinal region M48.[address] [id number] Jan, Type 2 diabetes mellitus with hyperglycemia E11.65 ; Diabetes type 2, controlled E11.9 ; Spinal stenosis, unspecified spinal region M48.00 and Encounter for immunization Z23 [facility] [address] [address] Dec, Spinal stenosis, unspecified spinal joesph on M48.00 [facility] [address] [address] Dec, [facility] [address] [address] Dec, [facility] [address] [address] Dec, [facility] [address] [id number] Nov, [facility] [address] [id number] Nov, Spinal stenosis, unspecified spinal region M48.00 [facility] [address] [id number] Oct, Spinal stenosis, unspecified spinal region M48.00 [facility] [address] [id number] Oct, Spinal stenosis, unspecified spinal region M48.00 [facility] [address], [place] [id number] Oct, [facility] [place] [address], [place] [id number] Oct, Diabetic polyneuropathy associated with type 2 diabetes mellitus E11.42 ; RLS (restless legs syndrome) G25.81 ; Spinal stenosis, unspecified spinal region M48.00 and Acute cystitis with hematuria N30.01 [facility] [address], [place] [id number] Oct, [facility] [address], [place] [id number] Oct, Spinal stenosis, unspecified spinal region M48.00 [facility] [place] [address], [place] [id number] Sep, Diabetic polyneuropathy associated with type 2 diabetes mellitus E11.42 [facility] [address] [address] Sep, [facility] [place] [address] [id number] Sep, Spinal stenosis, unspecified spinal region M48.00 [facility] [place] [address] [address] Aug, [facility] [place] [address] [id number] Aug, Spinal stenosis, unspecified spinal region M48.00 [facility] [place] [address] [id number] Aug, Spinal stenosis, unspecified spinal region M48.00 [facility] [place] [address] [id number] July, [facility] [place] [address] [id number] July, Diabetic polyneuropathy associated with type 2 diabetes mellitus E11.42 ; Type 2 diabetes mellitus with hyperglycemia E11.65 ; RLS (restless legs syndrome) G25.81 and Essential hypertension I10 [facility] [place] [address] [id number] July, Spinal stenosis, unspecified spinal region M48.00 [facility] [place] [address] [place] [id number] [place] [address] [id number] July, [facility] [address] [id number] Jun, Type 2 diabetes mellitus with other specified complication E11.69 [facility] [place] [address] [place] [place] [id number] [place] [address] [id number] Jun, Spinal stenosis, unspecified spinal region M48.00 [facility] [place] [address] [id number] 05 Jun, 2017 Hypoglycemia E16.2 [facility] [place] [address] [id number] May, Hypoglycemia E16.2 ; Acute cystitis with hematuria N30.01 and Essential hypertension I10 [facility] [address] [facility] [id number] [address] [place] [address] May, [address] [id number] May, Spinal stenosis, unspecified spinal region M48.[address] [id number] May, Reactive depression F32.[address] [id number] May, [address] [id number] Apr, [facility] [address] [id number] [facility] [place] [id number] Apr, [facility] [address] [id number] [place] [id number] Apr, [address] [id number] Apr, [address] [id number] Apr, Spinal stenosis, unspecified spinal region M48.00 [facility] [address] [id number] 08 Apr, 2017 Type 2 diabetes mellitus with other specified complication E11.69 ; Spinal stenosis, unspecified spinal region M48.00 ; Reactive depression F32.9 and Essential hypertension I10 [place] [address] [facility] [id number] [place] [id number] Apr, [facility] [address] [place] [id number] [place] [address] [id number] Mar, Spinal stenosis, unspecified spinal region M48.[address] [id number] Feb, Acute non-recurrent maxillary sinusitis J01.00 and Essential hypertension I10 [address] [id number] Feb, Spinal stenosis, unspecified spinal region M48.[address] [id number] Feb, Type 2 diabetes mellitus with other specified complication E11.[address] [id number] Feb, Type 2 diabetes mellitus with other specified complication E11.69 and Essential hypertension I10 [address] [id number] Feb, [address] [id number] Feb, [address] [id number] Jan, Spinal stenosis, unspecified spinal region M48.[address] [id number] Jan, Diabetic polyneuropathy associated with type 2 diabetes mellitus E11.[address] [id number] 14 Jan, 2017 Diabetic polyneuropathy associated with type 2 diabetes mellitus E11.[address] [id number] Jan, Type 2 diabetes mellitus with hyperglycemia E11.65 ; Type 2 diabetes mellitus with other specified complication E11.69 ; Spinal stenosis, unspecified spinal region M48.00 and Essential hypertension I10 [address] [id number] Jan, Diabetic polyneuropathy associated with type 2 diabetes mellitus E11.42 [place] [id number] [place] [address] [id number] Dec, [address] [id number] Dec, Diabetic polyneuropathy associated with type 2 diabetes mellitus E11.42 ; Type 2 diabetes mellitus with other specified complication E11.69 ; Hyperlipidemia, unspecified E78.5 ; Thyroid disorder E07.9 and Thyroid disorder screening Z13.[address] [id number] Dec, Diabetic polyneuropathy associated with type 2 diabetes mellitus E11.42 [facility] [address] [facility]70 [place] [address] Dec, Diabetic polyneuropathy associated with type 2 diabetes mellitus E11.[address] [id number] Dec, Spinal stenosis, unspecified spinal region M48.[address] [id number] Dec, [address] [id number] 18 Nov, 2016 Diabetic polyneuropathy associated with type 2 diabetes mellitus E11.[address] [id number] 15 Nov, 2016 Other chronic pain G89.[address] [id number] 14 Nov, 2016 Spinal stenosis, unspecified spinal region M48.[address] [id number] 16 Oct, 2016 Spinal stenosis, unspecified spinal region M48.00 ; Essential hypertension I10 ; RLS (restless legs syndrome) G25.81 and Diabetic polyneuropathy associated with type 2 diabetes mellitus E11.42 [place] [id number] [place] [address] [id number] Oct, Spinal stenosis, unspecified spinal region M48.[address] [id number] Sep, Diabetic polyneuropathy associated with type 2 diabetes mellitus E11.42 ; RLS (restless legs syndrome) G25.81 ; Spinal stenosis, unspecified spinal region M48.00 and Essential hypertension I10 [facility] [place] [address] [id number] Sep, [facility] [place] [address] [id number] Sep, Spinal stenosis, unspecified spinal region M48.00 [facility] [place] [address] [id number] Sep, [facility] [place] [address] [id number] Aug, Spinal stenosis, unspecified spinal region M48.00 [facility] [address] [address] July, [facility] [address] [id number] July, Spinal stenosis, unspecified spinal region M48.00 [facility] [place] [address] [id number] Jun, Type 2 diabetes mellitus with hyperglycemia E11.65 [facility] [place] [address] [id number] Jun, Spinal stenosis, unspecified spinal region M48.00 [facility] [place] [address] [id number] May, Spinal stenosis, unspecified spinal region M48.00 [facility] [address] [id number] Apr, Spinal stenosis, unspecified spinal region M48.00 [facility] [address] [address] Mar, [facility] [place] [address] [id number] Mar, Type 2 diabetes mellitus with hyperglycemia E11.65 ; RLS (restless legs syndrome) G25.81 and Spinal stenosis, unspecified spinal region M48.00 [facility] [address] [address] Mar, [facility] 120 [facility] [place] [id number] Mar, [facility] [place] [address] [facility]07757H [facility] [id number] Mar, [facility] [place] 120 [facility] [id number] Feb, [facility] [address] [place] [id number] [place] [address] Feb, [facility] [address] [id number] [id number] Feb, [place] [id number] [place] [address] [id number] Feb, [facility] [address] [address] Feb, [facility] [address] [place] [id number] [place] [address] Feb, [place] [id number] [place] [address] [id number] Jan, [facility] [address] [id number] [id number] Dec, Diabetic polyneuropathy associated with type 2 diabetes mellitus E11.42 ; Other chronic pain G89.29 ; Essential hypertension I10 and Encounter for immunization Z23 [place] [id number] [place] [address] [id number] Dec, [facility] [address] [place] [id number] [place] [address] Nov, [place] [id number] [place] [address] [id number] Nov, [address] [id number] Nov, Diabetes type 2, controlled E11.[address] [id number] Nov, Diabetes type 2, controlled E11.9 ; Other chronic pain G89.29 ; Essential hypertension I10 ; Diabetic polyneuropathy associated with type 2 diabetes mellitus E11.42 and RLS (restless legs syndrome) G25.81 [facility] [place] [facility] [address] [place] [address] [id number] [place] [address] Nov, [facility] [address] [place] [id number] [place] [address], [place] [id number] Oct, [facility] [address] [place] [id number] [id number] Oct, [facility] [address] [place] [id number] [place] [address], [place] [id number] Oct, [facility] [place] [facility] [address] [address] Oct, [facility] [address] [place] [id number] [place] [address], [place] [id number] Sep, [facility] [address] [id number] Sep, [facility] [address] [address] Sep, Dental examination Z01.20 [facility] [place] [facility] [address] [address] Aug, [facility] [address] [place] [id number] [place] [address] [id number] Aug, [facility] [address] [address] Aug, [facility] [address] [address] July, [facility] [address] [address] July, [facility] [address] [address] July, [facility] [address] [place] [id number] [place] [address] [id number] July, [facility] [address] [id number] July, [facility] [address] [place] [id number] [place] [address] [id number] July, [facility] [address] [address] July, [facility] [address] [id number] Jun, Diabetes type 2, controlled E11.9 [facility] [place] [id number] [place] [address] [id number] Jun, [facility] [address] [id number] May, Diabetes type 1, uncontrolled E10.65 [facility] [address] [id number] May, [facility] [address] [id number] Apr, [facility] [address] [id number] Apr, [facility] [place] [id number] [place] [address] [id number] Mar, [facility] [address] [id number] Mar, [facility] [address] [id number] Mar, [address] [id number] Mar, Diabetes type 1, uncontrolled E10.65 [place] [id number] [place] [address] [id number] Feb, [facility] [address] [place] [address] [id number] Feb, [facility] [place] [id number] [place] [address] [id number] Feb, [facility] [address] [address] [facility]07757H [place] [id number] Jan, [facility] [address] [id number] Jan, Dysuria R30.0 and Acute cystitis with hematuria N30.01 [facility] [address] [place] [address] [id number] Jan, [facility] [address] [id number] Dec, Gastroenteritis K52.9 and Headache, unspecified headache type R51 [address] [id number] Dec, [address] [id number] Dec, Chronic back pain 724.5 [facility] [place] [address] [facility] [id number] [place] [id number] Dec, [address] [id number] Nov, Chronic back pain 724.5 and Diabetes mellitus without mention of complication, type II or unspecified type, uncontrolled 250.[address] [id number] Nov, [address] [id number] Oct, [address] [id number] Sep, Diabetes mellitus without mention of complication, type II or unspecified type, uncontrolled 250.02 and Urinary tract infection 599.[address] [id number] July, [facility] [address] [address] Jun, [facility] [address] [address] Jun, [address] [id number] May, [facility] [address] [address] May, [address] [id number] May, [facility] [address] [address] May, [address] [id number] Mar, [facility] [address] [place] [address] [id number] [place] [address] Mar, [facility] [address] [facility] [place] [address] Mar, [facility] [address] [facility]07757[facility] [id number] Mar, [facility] [address] [place] [id number], [place] [id number] Feb, [facility] [id number] [place] [address] Feb, [facility] [address] [place] [id number], [place] [id number] Feb, [facility] [id number] [place] [address] Feb, [facility] [id number] [place] [address] Feb, [facility] [address] [place] [id number], [place] [id number] Feb, [facility] [address] [place] [id number], [place] [id number] Feb, [facility] [address] [id number] [place] [address] Feb, [facility] [address] [id number] [place] [address] Feb, [facility] [address] [id number] [id number] Jan, [facility] [address] [id number] [place] [address] Jan, [facility] [address] [place] [id number], [place] [id number] Jan, [facility] [address] [id number] [place] [address] Jan, [facility] [address] [place] [id number], [place] [id number] Dec, [facility] [id number] [place] [address] Dec, [facility] [address] [facility] [place] [address] Dec, [facility] [address] [facility] [place] [address] Dec, [facility] [address] [facility]07757[facility] [id number] Dec, [facility] [address] [facility] [place] [address] Dec, [facility] [address] [place] [id number] [id number] Nov, [facility] [address] [facility] [place] [address] Nov, [facility] [address] [place] [id number], [place] [id number] Oct, [facility] [id number] [place] [address] Oct, [facility] [address] [id number] [place] [address] Sep, [facility] [address] [place] [id number], [place] [id number] Sep, [facility] [address] [id number] [id number] Aug, [facility] [address] [id number] [place] [address] Aug, [facility] [address] [id number] [id number] July, [facility] [address] [facility] [id number] [place] [address] July, [facility] [address] [facility]757[facility] [id number] July, [facility] [address] [id number] [place] [address] July, [facility] [address] [id number] [place] [address] July, [facility] [address] [id number] [place] [address] Jun, [facility] [place] [address] [id number] [place] [id number] Jun, [facility] [place] [id number], [place] [id number] Jun, [facility] [address] [id number] [place] [address] Jun, [facility] [id number] [place] [address] Jun, [facility] [address] [id number] [place] [address] May, [facility] [place] [address] [id number] [id number] Apr, [facility] [address] [id number] [place] [address] Apr, [facility] [place] [address] [id number] [id number] Apr, [facility] [id number] [place] [address] Apr, [facility] [id number] [place] [address] Mar, [facility] [address] [id number] [place] [address] Mar, [facility] [id number] [place] [address] Mar, [facility] [address] [id number] [id number] Mar, [facility] [address] [id number] [place] [address] Mar, [facility] [id number] [place] [address] Mar, [facility] [address] [id number] [place] [address] Feb, [facility] [place] [address] [facility] [id number] Feb, [facility] [id number] [place] [address] Feb, [facility] [id number], [place] [id number] Feb, [facility] [id number] [place] [address] Feb, [facility] [id number] [place] [address], [place] [id number] Feb, [facility] [id number] [place] [address] Feb, [facility] [id number] [id number] Jan, [facility] [place] [facility] [id number] [place] [address] Jan, [facility] [place] [facility] [id number] [place] [address] Dec, [facility] [id number] [place] [id number] Dec, [facility] [place] [facility] [id number] [place] [address] Nov, [facility] [id number] [place] [id number] Oct, [facility] [address] [id number] [id number] Oct, [facility] [id number] [place] [address] [id number] Sep, [facility] [id number] [place] [address] Sep, [facility] [id number] [place] [address], [place] [id number] Sep, [facility] [id number] [place] [address], [place] [id number] Sep, [facility] [id number] [id number] Sep, [facility] [id number] [place] [address], [place] [id number] Sep, [facility] [id number], [place] [id number] Sep, [facility] [place] [facility] [id number] [place] [address] Aug, [facility] [id number], [place] [id number] Aug, [facility] [place] [facility] [id number] [place] [address] July, [facility] [id number] [place] [address], [place] [id number] July, [facility] [place] [facility] [address] [address] July, [facility] [id number] [id number] Jun, [facility] [id number] [id number] Jun, [facility] [id number] [place] [address], [place] [id number] Jun, [facility] [place] [facility] [id number] [place] [address] Jun, [facility] [id number] [place] [address], [place] [id number] May, [facility] [id number] [id number] May, [facility] [place] [facility] [id number] [place] [address] May, [facility] [id number] [place] [address], [place] [id number] Apr, [facility] [place] [facility] [id number] [place] [address] Apr, [facility] [id number] [place] [address], [place] [id number] Apr, [facility] [id number] [place] [address], [place] [id number] Apr, [facility] [place] [facility] [id number] [place] [address] Mar, [facility] [id number] [id number] Mar, [facility] [address] [facility]757[facility] [id number] Mar, [facility] [address] [facility]757[facility] [id number] Feb, [facility] [place] [facility] [id number] [place] [address] Feb, [facility] [id number] [place] [address], [place] [id number] Jan, [facility] [id number] [place] [address], [place] [id number] Jan, [facility] [place] [facility] [address] [address] Jan, [facility] [place] [facility] [address] [address] Jan, [facility] [place] [id number] [place] [address], [place] [id number] Jan, [facility] [place] [facility] [id number] [place] [address] Jan, [facility] [place] [id number] [place] [address] [id number] Dec, [facility] [place] [facility] [address] [address] Dec, [facility] [place] [id number] [place] [address] [id number] Dec, [facility] [place] [facility] [address] [address] Dec, [facility] [place] [address] [id number] [id number] Dec, [facility] [id number] [place] [address], [place] [id number] Nov, [facility] [id number], [place] [id number] Nov, [facility] [id number] [place] [address], [place] [id number] Oct, [facility] [address], [place] [id number] Oct, [facility] [address] [id number] [place] [id number] Sep, [facility] [address] [id number], [place] [id number] Sep, [facility] [address] [id number] [id number] Sep, [facility] [address] [id number] [id number] Aug, [facility] [address] [id number] [id number] Aug, [facility] [address] [id number] [id number] July, [facility] [address] [id number] [id number] July, [facility] [address] [id number] [id number] July, [facility] [id number] [place] [address], [place] [id number] July, [facility] [address] [facility] [place] [address] Jun, [facility] [address] [id number] [id number] Jun, [facility] [address] [id number] [id number] Jun, [facility] [address] [place] [id number] [id number] Jun, [facility] [address] [address] [id number] [id number] May, [facility] [address] [id number], [place] [id number] May, [facility] [address] [id number] [place] [address], [place] [id number] Apr, [facility] [address] [id number], [place] 107900296 Apr, [facility] [address] [id number] [id number] Apr, [facility] [address] [id number] [place] [id number] 07 Apr, 2011 [facility] [place] [address] [id number] [place] [id number] Apr, [facility] [id number] [place] [address] Apr, [facility] [place] [address] [facility] [id number] Apr, [facility] [place] [address] [facility] [id number] Apr, [facility] [place] [address] [facility]07[place] [id number] Mar, [facility] [address] [address] Feb, [facility] [id number] [place] [address] Feb, [facility] [address] [address] Feb, [facility] [id number] [place] [address] Feb, [facility] [address] [address] Jan, [facility] [id number] [place] [address] Jan, [facility] [address] [address] Jan, [facility] [id number] [place] [address] Dec, [facility] [id number] [place] [address] Dec, [facility] [id number] [place] [address] Aug, [facility] [address] [address] Aug, [facility] [address] [address] 30 Feb, 2010 [facility] [address] [id number] [place] [address] Feb, [facility] [address] [id number] [place] [address] Jan, [facility] [address] [id number] [place] [address] Jan, [facility] [address] [id number] [place] [address] Dec, [facility] [address] [id number] [place] [address] Dec, [facility] [address] [id number] [place] [address] Dec, [facility] [address] [id number] [place] [address] May, [facility] [address] [id number] [place] [address] Mar, [facility] [address] [id number] [place] [address] Feb, [facility] [address] [id number] [place] [address] Feb, [facility] [address] [id number] [place] [address] Feb, [facility] [address] [id number] [place] [address] Jan, [facility] [address] [id number] [place] [address] Jan, [facility] [address] [id number] [place] [address] Oct, [facility] [address] [id number] [place] [address] July, [facility] [address] [id number] [place] [address] Apr, [facility] [address] [facility] [id number] [place] [address] Jan, [facility] [address] [id number] [place] [address] Jan, IMMUNIZATIONS No Known Immunizations SOCIAL HISTORY [...] Hospitalization History surgeries, childbirth Hospitalization History [facility]- Possible Stroke Hospitalization History Hospital stay due to acute renal didier lure 10/2018
--- OUTSIDE RECORDS SUMMARY | 2019-06-03 14:58 | XMS REPORT | Continuity of Care Document ---
Author Organization Unknown Address Unknown Phone Unavailable Allergies Active Description Code Type Severity Reaction Onset Reported/Identified Relationship to Patient Clinical Status Yes No Known Drug Allergies [id number] Drug Allergy Unknown N/A 11/05/2009 Medications There is no data. Problems Date Dx Coded Attending Type Code Diagnosis Diagnosed By 01/31/1102 CATRACHITA MOLINA Ot R29.6 REPEATED FALLS 01/31/1102 CATRACHITA MOLINA Ot R29.898 OT SYMPTOMS AND SIGNS INVOLVING THE MUS 10/10/2007 MARITZA NICOLE MD 250. 02 Diabetes Ii Uncontrolled 10/10/2007 MARITZA NICOLE MD 272. 4 HYPERLIPIDEMIA HYPERLIPOPROTEINEMIAS (Old Classification) 10/10/2007 MARITZA NICOLE MD 250. 02 Diabetes Ii Uncontrolled 10/10/2007 MARITZA NICOLE MD 272. 4 HYPERLIPIDEMIA HYPERLIPOPROTEINEMIAS (Old Classification) 10/10/2007 MARITZA NICOLE MD 250. 02 Diabetes Ii Uncontrolled 10/10/2007 MARITZA NICOLE MD 272. 4 HYPERLIPIDEMIA HYPERLIPOPROTEINEMIAS (Old Classification) 10/10/2007 MANNY VALDIVIA APRN 250.02 Diabetes Ii Uncontrolled 10/10/2007 MANNY VALDIVIA APRN 27 2.4 HYPERLIPIDEMIA HYPERLIPOPROTEINEMIAS (Old Classification) 10/10/2007 250.02 Joan betes Ii Uncontrolled 10/10/2007 272.4 HYPE RLIPIDEMIA HYPERLIPOPROTEINEMIAS (Old Classification) 10/10/2007 250.02 Joan betes Ii Uncontrolled 10/10/2007 272.4 HYPE RLIPIDEMIA HYPERLIPOPROTEINEMIAS (Old Classification) 10/10/2007 250.02 Joan betes Ii Uncontrolled 10/10/2007 272.4 HYPE RLIPIDEMIA HYPERLIPOPROTEINEMIAS (Old Classification) 10/10/2007 250.02 JOAN BETES MELLITUS TYPE 2 - UNCOMPLICATED, UNCONTROLLED 10/10/2007 272.4 DYSL IPIDEMIA 10/10/2007 250.02 JOAN BETES MELLITUS TYPE 2 - UNCOMPLICATED, UNCONTROLLED 10/10/2007 272.4 DYSL IPIDEMIA 10/10/2007 250.02 JOAN BETES MELLITUS TYPE 2 - UNCOMPLICATED, UNCONTROLLED 10/10/2007 272.4 DYSL IPIDEMIA 10/10/2007 SOLO DO, JOSE LUIS K 250.02 DIABETES MELLITUS TYPE 2 - UNCOMPLICATED, UNCONTROLLED 10/10/2007 SOLO DO, JOSE LUIS K 272.4 DYSLIPIDEMIA 10/10/2007 SOLO DO, JOSE LUIS K 250.02 DIABETES MELLITUS TYPE 2 - UNCOMPLICATED, UNCONTROLLED 10/10/2007 SOLO DO, JOSE LUIS K 272.4 DYSLIPIDEMIA 10/10/2007 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, [place] E 250.02 DIABETES MELLITUS TYPE 2 - UNCOMPLICATED, UNCONTROLLED 10/10/2007 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, [place] E 272.4 DYSLIPIDEMIA 10/10/2007 SOLO DO, JOSE LUIS K 250.02 DIABETES MELLITUS TYPE 2 - UNCOMPLICATED, UNCONTROLLED 10/10/2007 SOLO DO, JOSE LUIS K 272.4 DYSLIPIDEMIA 10/10/2007 RADHALWIG 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, [place] E 250.02 DIABETES MELLITUS TYPE 2 - UNCOMPLICATED, UNCONTROLLED 10/10/2007 RADHAWIG 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, [place] E 272.4 DYSLIPIDEMIA 10/10/2007 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, [place] E 250.02 DIABETES MELLITUS TYPE 2 - UNCOMPLICATED, UNCONTROLLED 10/10/2007 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, [place] E 272.4 DYSLIPIDEMIA 10/10/2007 SOLO DO, JOSE LUIS K 250.02 DIABETES MELLITUS TYPE 2 - UNCOMPLICATED, UNCONTROLLED 10/10/2007 SOLO DO, JOSE LUIS K 272.4 DYSLIPIDEMIA 10/10/2007 SOLO DO, JOSE LUIS K 250.02 DIABETES MELLITUS TYPE 2 - UNCOMPLICATED, UNCONTROLLED 10/10/2007 SOLO DO, JOSE LUIS K 272.4 DYSLIPIDEMIA 10/10/2007 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 E 250.02 DIABETES MELLITUS TYPE 2 - UNCOMPLICATED, UNCONTROLLED 10/10/2007 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, [place] E 272.4 DYSLIPIDEMIA 10/10/2007 SOLO DO, JOSE LUIS K 250.02 DIABETES MELLITUS TYPE 2 - UNCOMPLICATED, UNCONTROLLED 10/10/2007 SOLO DO, JOSE LUIS K 272.4 DYSLIPIDEMIA 10/10/2007 SOLO DO, JOSE LUIS K 250.02 DIABETES MELLITUS TYPE 2 - UNCOMPLICATED, UNCONTROLLED 10/10/2007 SOLO DO, JOSE LUIS K 272.4 DYSLIPIDEMIA 10/10/2007 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, [place] E 250.02 DIABETES MELLITUS TYPE 2 - UNCOMPLICATED, UNCONTROLLED 10/10/2007 [place] GALVAN APRN 272.4 DYSLIPIDEMIA 10/10/2007 JOSE LUIS SOLO DO 250.02 DIABETES MELLITUS TYPE 2 - UNCOMPLICATED, UNCONTROLLED 10/10/2007 JOSE LUIS SOLO DO 272.4 DYSLIPIDEMIA 10/14/2007 MARITZA NICOLE MD 250. 00 DIABETES MELLITUS TYPE 2 - UNCOMPLICATED, CONTROLLED 10/14/2007 MARITZA NICOLE MD 338. 4 PAIN CHRONIC SYNDROME 10/14/2007 MARITZA NICOLE MD 599. 0 URINARY TRACT INFECTION 10/14/2007 MARITZA NICOLE MD 250. 00 DIABETES MELLITUS TYPE 2 - UNCOMPLICATED, CONTROLLED 10/14/2007 MARITZA NICOLE MD 338. 4 PAIN CHRONIC SYNDROME 10/14/2007 MARITZA NICOLE MD 599. 0 URINARY TRACT INFECTION 10/14/2007 MARITZA NICOLE MD 250. 00 DIABETES MELLITUS TYPE 2 - UNCOMPLICATED, CONTROLLED 10/14/2007 MARITZA NICOLE MD 338. 4 PAIN CHRONIC SYNDROME 10/14/2007 MARITZA NICOLE MD 599. 0 URINARY TRACT INFECTION 10/14/2007 MANNY VALDIVIA APRN 250.00 DIABETES MELLITUS TYPE 2 - UNCOMPLICATED, CONTROLLED 10/14/2007 MANNY VALDIVIA APRN 33 8.4 PAIN CHRONIC SYNDROME 10/14/2007 MANNY VALDIVIA APRN 59 9.0 URINARY TRACT INFECTION 10/14/2007 250.00 JOAN BETES MELLITUS TYPE 2 - UNCOMPLICATED, CONTROLLED 10/14/2007 338.4 PAIN CHRONIC SYNDROME 10/14/2007 599.0 URIN TERESA TRACT INFECTION 10/14/2007 250.00 JOAN BETES MELLITUS TYPE 2 - UNCOMPLICATED, CONTROLLED 10/14/2007 338.4 PAIN CHRONIC SYNDROME 10/14/2007 599.0 URIN TERESA TRACT INFECTION 10/14/2007 250.00 JOAN BETES MELLITUS TYPE 2 - UNCOMPLICATED, CONTROLLED 10/14/2007 338.4 PAIN CHRONIC SYNDROME 10/14/2007 599.0 URIN TERESA TRACT INFECTION 10/14/2007 250.00 JOAN BETES MELLITUS TYPE 2 - UNCOMPLICATED, CONTROLLED 10/14/2007 338.4 PAIN CHRONIC SYNDROME 10/14/2007 599.0 URIN TERESA TRACT INFECTION 10/14/2007 250.00 JOAN BETES MELLITUS TYPE 2 - UNCOMPLICATED, CONTROLLED 10/14/2007 338.4 PAIN CHRONIC SYNDROME 10/14/2007 599.0 URIN TERESA TRACT INFECTION 10/14/2007 250.00 JOAN BETES MELLITUS TYPE 2 - UNCOMPLICATED, CONTROLLED 10/14/2007 338.4 PAIN CHRONIC SYNDROME 10/14/2007 599.0 URIN TERESA TRACT INFECTION 10/14/2007 SOLO DO, JOSE LUIS [...] LUIS K 599.0 URINARY TRACT INFECTION 10/14/2007 [employer]LE 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, [place] E 250.00 DIABETES MELLITUS TYPE 2 - UNCOMPLICATED, CONTROLLED 10/14/2007 TRACE[employer]IG 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 [place] E 338.4 PAIN CHRONIC SYNDROME 10/14/2007 COLE SINGH [place] E 599.0 URINARY TRACT INFECTION 10/14/2007 SOLO DO, JOSE LUIS K 250.00 DIABETES MELLITUS TYPE 2 - UNCOMPLICATED, CONTROLLED 10/14/2007 SOLO DO, JOSE LUIS K 338.4 PAIN CHRONIC SYNDROME 10/14/2007 SOLO DO, JOSE LUIS K 599.0 URINARY TRACT INFECTION 10/14/2007 COLE SINGH [place] E 250.00 DIABETES MELLITUS TYPE 2 - UNCOMPLICATED, CONTROLLED 10/14/2007 RADHALWIG 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, [place] E 338.4 PAIN CHRONIC SYNDROME 10/14/2007 TRCAEWIG 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, [place] E 599.0 URINARY TRACT INFECTION 10/14/2007 TRACEWIG 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, [place] E 250.00 DIABETES MELLITUS TYPE 2 - UNCOMPLICATED, CONTROLLED 10/14/2007 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, [place] E 338.4 PAIN CHRONIC SYNDROME 10/14/2007 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, [place] E 599.0 URINARY TRACT INFECTION 10/14/2007 [...] LUIS K 599.0 URINARY TRACT INFECTION 10/14/2007 GERHARD GALVAN APRNE E 250.00 DIABETES MELLITUS TYPE 2 - UNCOMPLICATED, CONTROLLED 10/14/2007 PHILLIP GALVAN APRNSIE E 338.4 PAIN CHRONIC SYNDROME 10/14/2007 GERHARD GALVAN APRNE E 599.0 URINARY TRACT INFECTION 10/14/2007 SOLO DO JOSE LUIS K 250.00 DIABETES MELLITUS TYPE [...] LUIS K 599.0 URINARY TRACT INFECTION 10/14/2007 [place] GALVAN APRN E 250.00 DIABETES MELLITUS TYPE 2 - UNCOMPLICATED, CONTROLLED 10/14/2007 GERHARD GALVAN APRNE E 338.4 PAIN CHRONIC SYNDROME 10/14/2007 PHILLIP GALVAN APRNSIE E 599.0 URINARY TRACT INFECTION 10/14/2007 SOLO DO, JOSE LUIS K 250.00 DIABETES MELLITUS TYPE 2 - UNCOMPLICATED, CONTROLLED 10/14/2007 SOLO DO, JOSE LUIS K 338.4 PAIN CHRONIC SYNDROME 10/14/2007 SOLO DO, JOSE LUIS K 599.0 URINARY TRACT INFECTION 11/28/2007 COREY REYES, MARITZA V72. 31 Squeezer Operator Exam, Routine 11/28/2007 COREY REYES, MARITZA V72. 31 Squeezer Operator Exam, Routine 11/28/2007 COREY REYES, MARITZA V72. 31 Squeezer Operator Exam, Routine 11/28/2007 MANNY VALDIVIA APRN V72.31 Squeezer Operator Exam, Routine 11/28/2007 V72.31 Squeezer Operator Exam, Routine 11/28/2007 V72.31 Squeezer Operator Exam, Routine 11/28/2007 V72.31 Squeezer Operator Exam, Routine 11/28/2007 V72.31 Squeezer Operator Exam, Routine 11/28/2007 V72.31 Squeezer Operator Exam, Routine 11/28/2007 V72.31 Squeezer Operator Exam, Routine 11/28/2007 SOLO DO, JOSE LUIS K V72.31 Squeezer Operator Exam, Routine 11/28/2007 SOLO DO, JOSE LUIS K V72.31 Squeezer Operator Exam, Routine 11/28/2007 [place] GALVAN APRN V72.31 Squeezer Operator Exam, Routine 11/28/2007 SOLO DO, JOSE LUIS K V72.31 Squeezer Operator Exam, Routine 11/28/2007 [place] GALVAN APRN E V72.31 Squeezer Operator Exam, Routine 11/28/2007 [place] GALVAN APRN E V72.31 Squeezer Operator Exam, Routine 11/28/2007 SOLO DO, JOSE LUIS K V72.31 Squeezer Operator Exam, Routine 11/28/2007 SOLO DO, JOSE LUIS K V72.31 Squeezer Operator Exam, Routine 11/28/2007 [place] GALVAN APRN E V72.31 Squeezer Operator Exam, Routine 11/28/2007 SOLO DO, JOSE LUIS K V72.31 Squeezer Operator Exam, Routine 11/28/2007 SOLO DO, JOSE LUIS K V72.31 Squeezer Operator Exam, Routine 11/28/2007 [place] GALVAN APRN E V72.31 Squeezer Operator Exam, Routine 11/28/2007 SOLO DO, JOSE LUIS K V72.31 Squeezer Operator Exam, Routine 01/14/2008 MARITZA NICOLE MD 305. 1 TOBACCO ABUSE 01/14/2008 MARITZA NICOLE MD V03. 82 Pcv7 Pcv23, Streptococcus Pneumoniae [pneumococcus] 01/14/2008 MARITZA NICOLE MD 305. 1 TOBACCO ABUSE 01/14/2008 MARITZA NICOLE MD V03. 82 Pcv7 Pcv23, Streptococcus Pneumoniae [pneumococcus] 01/14/2008 MARITZA NICOLE MD 305. 1 TOBACCO ABUSE 01/14/2008 MARITZA NICOLE MD V03. 82 Pcv7 Pcv23, Streptococcus Pneumoniae [pneumococcus] 01/14/2008 MANNY VALDIVIA APRN 30 5.1 TOBACCO ABUSE 01/14/2008 MANNY VALDIVIA APRN V03.82 Pcv7 Pcv23, Streptococcus Pneumoniae [pneumococcus] 01/14/2008 305.1 TOBA NEWSPAPER INSERTER ABUSE 01/14/2008 V03.82 Pcv 7 Pcv23, Streptococcus Pneumoniae [pneumococcus] 01/14/2008 305.1 TOBA NEWSPAPER INSERTER ABUSE 01/14/2008 V03.82 Pcv 7 Pcv23, Streptococcus Pneumoniae [pneumococcus] 01/14/2008 305.1 TOBA NEWSPAPER INSERTER ABUSE 01/14/2008 V03.82 Pcv 7 Pcv23, Streptococcus Pneumoniae [pneumococcus] 01/14/2008 305.1 TOBA NEWSPAPER INSERTER ABUSE 01/14/2008 V03.82 Pcv 7 Pcv23, Streptococcus Pneumoniae [pneumococcus] 01/14/2008 305.1 TOBA NEWSPAPER INSERTER ABUSE 01/14/2008 V03.82 Pcv 7 Pcv23, Streptococcus Pneumoniae [pneumococcus] 01/14/2008 305.1 TOBA NEWSPAPER INSERTER ABUSE 01/14/2008 V03.82 Pcv 7 Pcv23, Streptococcus Pneumoniae [pneumococcus] 01/14/2008 SOLO DO JOSE LUIS K 305.1 TOBACCO ABUSE 01/14/2008 SOLO DO, JOSE LUIS K V03.82 Pcv7 Pcv23, Streptococcus Pneumoniae [pneumococcus] 01/14/2008 SOLO DO JOSE LUIS K 305.1 TOBACCO ABUSE 01/14/2008 SOLO DO JOSE LUIS K V03.82 Pcv7 Pcv23, Streptococcus Pneumoniae [pneumococcus] 01/14/2008 [facility] [place] SINGH E 305.1 TOBACCO ABUSE 01/14/2008 [facility] [place] SING[place] E V03.82 Pcv7 Pcv23, Streptococcus Pneumoniae [pneumococcus] 01/14/2008 SOLO DO JOSE LUIS K 305.1 TOBACCO ABUSE 01/14/2008 SOLO DO JOSE LUIS K V03.82 Pcv7 Pcv23, Streptococcus Pneumoniae [pneumococcus] 01/14/2008 [facility] [place] SING[place] E 305.1 TOBACCO ABUSE 01/14/2008 [facility] [place] SING[place] E V03.82 Pcv7 Pcv23, Streptococcus Pneumoniae [pneumococcus] 01/14/2008 [facility] [place] SINGH E 305.1 TOBACCO ABUSE 01/14/2008 [facility] PHILLIP SINGHSIE E V03.82 Pcv7 Pcv23, Streptococcus Pneumoniae [pneumococcus] 01/14/2008 SOLO DO JOSE LUIS K 305.1 TOBACCO ABUSE 01/14/2008 SOLO DO JOSEL UIS K V03.82 Pcv7 Pcv23, Streptococcus Pneumoniae [pneumococcus] 01/14/2008 SOLO DO JOSE LUIS K 305.1 TOBACCO ABUSE 01/14/2008 SOLO DO JOSE LUIS K V03.82 Pcv7 Pcv23, Streptococcus Pneumoniae [pneumococcus] 01/14/2008 [facility] PHILLIP SINGHSIE E 305.1 TOBACCO ABUSE 01/14/2008 [facility] SAMANTHA [place] E V03.82 Pcv7 Pcv23, Streptococcus Pneumoniae [pneumococcus] 01/14/2008 [place] PINEDA JOSE LUIS K 305.1 TOBACCO ABUSE 01/14/2008 [place] PINEDA JOSE LUIS K V03.82 Pcv7 Pcv23, Streptococcus Pneumoniae [pneumococcus] 01/14/2008 [place] PINEDA, JOSE LUIS K 305.1 TOBACCO ABUSE 01/14/2008 [place] PINEDA JOSE LUIS K V03.82 Pcv7 Pcv23, Streptococcus Pneumoniae [pneumococcus] 01/14/2008 [facility] [place] [facility] 305.1 TOBACCO ABUSE 01/14/2008 [facility] [place] V03.82 Pcv7 Pcv23, Streptococcus Pneumoniae [pneumococcus] 01/14/2008 [place] PINEDA JOSE LUIS K 305.1 TOBACCO ABUSE 01/14/2008 [place] PINEDA JOSE LUIS K V03.82 Pcv7 Pcv23, Streptococcus Pneumoniae [pneumococcus] 04/15/2008 MARITZA NICOLE MD 357. 9 POLYNEUROPATHY INFLAMMATORY 04/15/2008 MARITZA NICOLE MD 401. 1 ESSENTIAL HYPERTENSION BENIGN 04/15/2008 MARITZA NICOLE MD 357. 9 POLYNEUROPATHY INFLAMMATORY 04/15/2008 MARITZA NICOLE MD 401. 1 ESSENTIAL HYPERTENSION BENIGN 04/15/2008 MARITZA NICOLE MD 357. 9 POLYNEUROPATHY INFLAMMATORY 04/15/2008 MARITZA NICOLE MD 401. 1 ESSENTIAL HYPERTENSION BENIGN 04/15/2008 MANNY VALDIVIA APRN T 35 7.9 POLYNEUROPATHY INFLAMMATORY 04/15/2008 MANNY VALDIVIA APRN T 40 1.1 ESSENTIAL HYPERTENSION BENIGN 04/15/2008 357.9 POLY NEUROPATHY INFLAMMATORY 04/15/2008 401.1 ESSE NTIAL HYPERTENSION BENIGN 04/15/2008 357.9 POLY NEUROPATHY INFLAMMATORY 04/15/2008 401.1 ESSE NTIAL HYPERTENSION BENIGN 04/15/2008 357.9 POLY NEUROPATHY INFLAMMATORY 04/15/2008 401.1 ESSE NTIAL HYPERTENSION BENIGN 04/15/2008 357.9 POLY NEUROPATHY INFLAMMATORY 04/15/2008 401.1 ESSE NTIAL HYPERTENSION BENIGN 04/15/2008 357.9 POLY NEUROPATHY INFLAMMATORY 04/15/2008 401.1 ESSE NTIAL HYPERTENSION BENIGN 04/15/2008 357.9 POLY NEUROPATHY INFLAMMATORY 04/15/2008 401.1 ESSE NTIAL HYPERTENSION BENIGN 04/15/2008 SOLO DO, JOSE LUIS K 357.9 POLYNEUROPATHY INFLAMMATORY 04/15/2008 SOLO DO, JOSE LUIS K 401.1 ESSENTIAL HYPERTENSION BENIGN 04/15/2008 SOLO DO, JOSE LUIS K 357.9 POLYNEUROPATHY INFLAMMATORY 04/15/2008 SOLO DO, JOSE LUIS K 401.1 ESSENTIAL HYPERTENSION BENIGN 04/15/2008 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, [place] E 357.9 POLYNEUROPATHY INFLAMMATORY 04/15/2008 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, [place] E 401.1 ESSENTIAL HYPERTENSION BENIGN 04/15/2008 SOLO DO, JOSE LUIS K 357.9 POLYNEUROPATHY INFLAMMATORY 04/15/2008 SOLO DO, JOSE LUIS K 401.1 ESSENTIAL HYPERTENSION BENIGN 04/15/2008 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, [place] E 357.9 POLYNEUROPATHY INFLAMMATORY 04/15/2008 HELL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, [place] E 401.1 ESSENTIAL HYPERTENSION BENIGN 04/15/2008 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, [place] E 357.9 POLYNEUROPATHY INFLAMMATORY 04/15/2008 HE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, [place] E 401.1 ESSENTIAL HYPERTENSION BENIGN 04/15/2008 SOLO DO, JOSE LUIS K 357.9 POLYNEUROPATHY INFLAMMATORY 04/15/2008 SOLO DO, JOSE LUIS K 401.1 ESSENTIAL HYPERTENSION BENIGN 04/15/2008 SOLO DO, JOSE LUIS K 357.9 POLYNEUROPATHY INFLAMMATORY 04/15/2008 SOLO DO, JOSE LUIS K 401.1 ESSENTIAL HYPERTENSION BENIGN 04/15/2008 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, [place] E 357.9 POLYNEUROPATHY INFLAMMATORY 04/15/2008 HE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, [place] E 401.1 ESSENTIAL HYPERTENSION BENIGN 04/15/2008 SOLO DO, JOSE LUIS K 357.9 POLYNEUROPATHY INFLAMMATORY 04/15/2008 SOLO DO, JOSE LUIS K 401.1 ESSENTIAL HYPERTENSION BENIGN 04/15/2008 SOLO DO, JOSE LUIS K 357.9 POLYNEUROPATHY INFLAMMATORY 04/15/2008 SOLO DO, JOSE LUIS K 401.1 ESSENTIAL HYPERTENSION BENIGN 04/15/2008 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, [place] E 357.9 POLYNEUROPATHY INFLAMMATORY 04/15/2008 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, [place] E 401.1 ESSENTIAL HYPERTENSION BENIGN 04/15/2008 SOLO DO, JOSE LUIS K 357.9 POLYNEUROPATHY INFLAMMATORY 04/15/2008 SOLO DO, JOSE LUIS K 401.1 ESSENTIAL HYPERTENSION BENIGN 10/18/2008 COREY REYES, AMRITZA 528. 9 Mouth Pain 10/18/2008 MARITZA NICOLE MD 780. 60 Fever [as Symptom] 10/18/2008 MARITZA NICOLE MD 786. 2 Cough 10/18/2008 MARITZA NICOLE MD 528. 9 Mouth Pain 10/18/2008 MARITZA NICOLE MD 780. 60 Fever [as Symptom] 10/18/2008 MARITZA NICOLE MD 786. 2 Cough 10/18/2008 MARITZA NICOLE MD 528. 9 Mouth Pain 10/18/2008 MARITZA NICOLE MD 780. 60 Fever [as Symptom] 10/18/2008 MARITZA NICOLE MD 786. 2 Cough 10/18/2008 MANNY VALDIVIA APRN 52 8.9 Mouth Pain 10/18/2008 MANNY VALDIVIA APRN 780.60 Fever [as Symptom] 10/18/2008 MANNY VALDIVIA APRN 78 6.2 Cough 10/18/2008 528.9 Mout h Pain 10/18/2008 780.60 Fev er [as Symptom] 10/18/2008 786.2 Cough 10/18/2008 528.9 Mout h Pain 10/18/2008 780.60 Fev er [as Symptom] 10/18/2008 786.2 Cough 10/18/2008 528.9 Mout h Pain 10/18/2008 780.60 Fev er [as Symptom] 10/18/2008 786.2 Cough 10/18/2008 528.9 Mout h Pain 10/18/2008 780.60 Fev er [as Symptom] 10/18/2008 786.2 Cough 10/18/2008 528.9 Mout h Pain 10/18/2008 780.60 Fev er [as Symptom] 10/18/2008 786.2 Cough 10/18/2008 528.9 Mout h Pain 10/18/2008 780.60 Fev er [as Symptom] 10/18/2008 786.2 Cough 10/18/2008 SOLO DO, JOSE LUIS K 528.9 Mouth Pain 10/18/2008 SOLO DO, JOSE LUIS K 780.60 Fever [as Symptom] 10/18/2008 SOLO DO, JOSE LUIS K 786.2 Cough 10/18/2008 SOLO DO, JOSE LUIS K 528.9 Mouth Pain 10/18/2008 SOLO DO, JOSE LUIS K 780.60 Fever [as Symptom] 10/18/2008 SOLO DO, JOSE LUIS K 786.2 Cough 10/18/2008 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, [place] E 528.9 Mouth Pain 10/18/2008 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, [place] E 780.60 Fever [as Symptom] 10/18/2008 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, [place] E 786.2 Cough 10/18/2008 SOLO DO, JOSE LUIS K 528.9 Mouth Pain 10/18/2008 SOLO DO, JOSE LUIS K 780.60 Fever [as Symptom] 10/18/2008 SOLO DO, JOSE LUIS K 786.2 Cough 10/18/2008 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, [place] E 528.9 Mouth Pain 10/18/2008 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, [place] E 780.60 Fever [as Symptom] 10/18/2008 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, [place] E 786.2 Cough 10/18/2008 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, [place] E 528.9 Mouth Pain 10/18/2008 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 [place] E 780.60 Fever [as Symptom] 10/18/2008 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, [place] E 786.2 Cough 10/18/2008 SOLO DO, JOSE LUIS K 528.9 Mouth Pain 10/18/2008 SOLO DO, JOSE LUIS K 780.60 Fever [as Symptom] 10/18/2008 SOLO DO, JOSE LUIS K 786.2 Cough 10/18/2008 OSLO DO, JOSE LUIS K 528.9 Mouth Pain 10/18/2008 SOLO DO, JOSE LUIS K 780.60 Fever [as Symptom] 10/18/2008 SOLO DO, JOSE LUIS K 786.2 Cough 10/18/2008 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, [place] E 528.9 Mouth Pain 10/18/2008 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 E 780.60 Fever [as Symptom] 10/18/2008 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, [place] E 786.2 Cough 10/18/2008 SOLO DO, JOSE LUIS K 528.9 Mouth Pain 10/18/2008 SOLO DO, JOSE LUIS K 780.60 Fever [as Symptom] 10/18/2008 SOLO DO, JOSE LUIS K 786.2 Cough 10/18/2008 SOLO DO, JOSE LUIS K 528.9 Mouth Pain 10/18/2008 SOLO DO, JOSE LUIS K 780.60 Fever [as Symptom] 10/18/2008 SOLO DO, JOSE LUIS K 786.2 Cough 10/18/2008 [place] GALVAN APRN E 528.9 Mouth Pain 10/18/2008 [place] GALVAN APRN E 780.60 Fever [as Symptom] 10/18/2008 [place] GALVAN APRN E 786.2 Cough 10/18/2008 SOLO DO, JOSE LUIS K 528.9 Mouth Pain 10/18/2008 SOLO DO, JOSE LUIS K 780.60 Fever [as Symptom] 10/18/2008 SOLO DO, JOSE LUIS K 786.2 Cough 10/29/2008 MARITZA NICOLE MD 276. 51 Dehydration 10/29/2008 MAIRTZA NICOLE MD 787. 01 Nausea With Vomiting 10/29/2008 MARITZA NICOLE MD 276. 51 Dehydration 10/29/2008 MARITZA NICOLE MD 787. 01 Nausea With Vomiting 10/29/2008 MARITZA NICOLE MD 276. 51 Dehydration 10/29/2008 MARITZA NICOLE MD 787. 01 Nausea With Vomiting 10/29/2008 MANNY VALDIVIA APRN 276.51 Dehydration 10/29/2008 MANNY VALDIVIA APRN 787.01 Nausea With Vomiting 10/29/2008 276.51 Deh ydration 10/29/2008 787.01 Jossue sea With Vomiting 10/29/2008 276.51 Deh ydration 10/29/2008 787.01 Jossue sea With Vomiting 10/29/2008 276.51 Deh ydration 10/29/2008 787.01 Jossue sea With Vomiting 10/29/2008 276.51 Deh ydration 10/29/2008 787.01 Jossue sea With Vomiting 10/29/2008 276.51 Deh ydration 10/29/2008 787.01 Jossue sea With Vomiting 10/29/2008 276.51 Deh ydration 10/29/2008 787.01 Jossue sea With Vomiting 10/29/2008 SOLO DO JOSE LUIS K 276.51 Dehydration 10/29/2008 SOLO DO, JOSE LUIS K 787.01 Nausea With Vomiting 10/29/2008 SOLO DO, JOSE LUIS K 276.51 Dehydration 10/29/2008 SOLO DO, JOSE LUIS K 787.01 Nausea With Vomiting 10/29/2008 [place] GALVAN APRN E 276.51 Dehydration 10/29/2008 HELHELENE SINGH [place] E 787.01 Nausea With Vomiting 10/29/2008 SOLO DO, JOSE LUIS K 276.51 Dehydration 10/29/2008 SOLO DO, JOSE LUIS K 787.01 Nausea With Vomiting 10/29/2008 RADHAHELENE SINGH [place] E 276.51 Dehydration 10/29/2008 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 [place] E 787.01 Nausea With Vomiting 10/29/2008 HELWIG SAMANTHA [place] E 276.51 Dehydration 10/29/2008 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, [place] E 787.01 Nausea With Vomiting 10/29/2008 SOLO DO, JOSE LUIS K 276.51 Dehydration 10/29/2008 SOLO DO, JOSE LUIS K 787.01 Nausea With Vomiting 10/29/2008 SOLO DO, JOSE LUIS K 276.51 Dehydration 10/29/2008 SOLO DO, JOSE LUIS K 787.01 Nausea With Vomiting 10/29/2008 [facility] [place] [facility] 276.51 Dehydration 10/29/2008 [facility] SAMANTHA [place] E 787.01 Nausea With Vomiting 10/29/2008 SOLO DO, JOSE LUIS K 276.51 Dehydration 10/29/2008 SOLO DO, JOSE LUIS K 787.01 Nausea With Vomiting 10/29/2008 SOLO DO, JOSE LUIS K 276.51 Dehydration 10/29/2008 SOLO DO, JOSE LUIS K 787.01 Nausea With Vomiting 10/29/2008 [facility] [place] E 276.51 Dehydration 10/29/2008 [facility] SAMANTHA [place] E 787.01 Nausea With Vomiting 10/29/2008 SOLO DO, JOSE LUIS K 276.51 Dehydration 10/29/2008 SOLO DO, JOSE LUIS K 787.01 Nausea With Vomiting 02/01/2009 MARITZA NICOLE MD 250. 40 DIABETIC NEPHROPATHY 02/01/2009 MARITZA NICOLE MD 724. 5 BACKACHE 02/01/2009 MARITZA NICOLE MD 250. 40 DIABETIC NEPHROPATHY 02/01/2009 MARITZA NICOLE MD 724. 5 BACKACHE 02/01/2009 MARITZA NICOLE MD 250. 40 DIABETIC NEPHROPATHY 02/01/2009 MARITZA NICOLE MD 724. 5 BACKACHE 02/01/2009 MANNY VALDIVIA APRN 250.40 DIABETIC NEPHROPATHY 02/01/2009 MANNY VALDIVIA APRN 72 4.5 BACKACHE 02/01/2009 250.40 JOAN BETIC NEPHROPATHY 02/01/2009 724.5 BACKACHE 02/01/2009 250.40 JOAN BETIC NEPHROPATHY 02/01/2009 724.5 BACKACHE 02/01/2009 250.40 JOAN BETIC NEPHROPATHY 02/01/2009 724.5 BACKACHE 02/01/2009 250.40 JOAN BETIC NEPHROPATHY 02/01/2009 724.5 BACKACHE 02/01/2009 250.40 JOAN BETIC NEPHROPATHY 02/01/2009 724.5 BACKACHE 02/01/2009 250.40 JOAN BETIC NEPHROPATHY 02/01/2009 724.5 BACKACHE 02/01/2009 SOLO DO, JOSE LUIS K 250.40 DIABETIC NEPHROPATHY 02/01/2009 SOLO DO, JOSE LUIS K 724.5 BACKACHE 02/01/2009 SOLO DO, JOSE LUIS K 250.40 DIABETIC NEPHROPATHY 02/01/2009 SOLO DO, JOSE LUIS K 724.5 BACKACHE 02/01/2009 [facility] [place] E 250.40 DIABETIC NEPHROPATHY 02/01/2009 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 [place] E 724.5 BACKACHE 02/01/2009 SOLO DO, JOSE LUIS K 250.40 DIABETIC NEPHROPATHY 02/01/2009 SOLO DO, JOSE LUIS K 724.5 BACKACHE 02/01/2009 [facility] [place] E 250.40 DIABETIC NEPHROPATHY 02/01/2009 RADHAHELENE SINGH, [place] E 724.5 BACKACHE 02/01/2009 RDAHAHELENE SINGH [place] E 250.40 DIABETIC NEPHROPATHY 02/01/2009 [facility] [place] E 724.5 BACKACHE 02/01/2009 SOLO DO, JOSE LUIS K 250.40 DIABETIC NEPHROPATHY 02/01/2009 SOLO DO, JOSE LUIS K 724.5 BACKACHE 02/01/2009 SOLO DO, JOSE LUIS K 250.40 DIABETIC NEPHROPATHY 02/01/2009 SOLO DO, JOSE LUIS K 724.5 BACKACHE 02/01/2009 [employer]HAHELENE 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, [place] E 250.40 DIABETIC NEPHROPATHY 02/01/2009 RADHAWIG 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, [place] E 724.5 BACKACHE 02/01/2009 SOLO DO, JOSE LUIS K 250.40 DIABETIC NEPHROPATHY 02/01/2009 SOLO DO, JOSE LUIS K 724.5 BACKACHE 02/01/2009 SOLO DO, JOSE LUIS K 250.40 DIABETIC NEPHROPATHY 02/01/2009 SOLO DO, JOSE LUIS K 724.5 BACKACHE 02/01/2009 [place] GALVAN APRN 250.40 DIABETIC NEPHROPATHY 02/01/2009 [place] GALVAN APRN 724.5 BACKACHE 02/01/2009 SOLO DO, JOSE LUIS K 250.40 DIABETIC NEPHROPATHY 02/01/2009 GERMANIA PINEDA JOSE LUIS K 724.5 BACKACHE 03/14/2009 COREY REYES, MARITZA 461. 9 Sinusitis Acute 03/14/2009 MARITZA NICOLE MD 477. 9 Allergic Rhinitis 03/14/2009 MARITZA NICOLE MD 461. 9 Sinusitis Acute 03/14/2009 MARITZA NICOLE MD 477. 9 Allergic Rhinitis 03/14/2009 MARITZA NICOLE MD 461. 9 Sinusitis Acute 03/14/2009 MARITZA NICOLE MD 477. 9 Allergic Rhinitis 03/14/2009 MANNY VALDIVIA APRN 46 1.9 Sinusitis Acute 03/14/2009 MANNY VALDIVIA APRN 47 7.9 Allergic Rhinitis 03/14/2009 461.9 Sinu sitis Acute 03/14/2009 477.9 Oscar rgic Rhinitis 03/14/2009 461.9 Sinu sitis Acute 03/14/2009 477.9 Oscar rgic Rhinitis 03/14/2009 461.9 Sinu sitis Acute 03/14/2009 477.9 Oscar rgic Rhinitis 03/14/2009 461.9 Sinu sitis Acute 03/14/2009 477.9 Oscar rgic Rhinitis 03/14/2009 461.9 Sinu sitis Acute 03/14/2009 477.9 Oscar rgic Rhinitis 03/14/2009 461.9 Sinu sitis Acute 03/14/2009 477.9 Oscar rgic Rhinitis 03/14/2009 GERMANIA DO JOSE LUIS K 461.9 Sinusitis Acute 03/14/2009 SOLO DO JOSE LUIS K 477.9 Allergic Rhinitis 03/14/2009 SOLO DO JOSE LUIS K 461.9 Sinusitis Acute 03/14/2009 GERMANIA PINEDA JOSE LUIS K 477.9 Allergic Rhinitis 03/14/2009 [employer]IG 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, [place] E 461.9 Sinusitis Acute 03/14/2009 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, [place] E 477.9 Allergic Rhinitis 03/14/2009 SOLO DO, JOSE LUIS K 461.9 Sinusitis Acute 03/14/2009 SOLO DO, JOSE LUIS K 477.9 Allergic Rhinitis 03/14/2009 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, [place] E 461.9 Sinusitis Acute 03/14/2009 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, [place] E 477.9 Allergic Rhinitis 03/14/2009 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, [place] E 461.9 Sinusitis Acute 03/14/2009 [employer]LL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, [place] E 477.9 Allergic Rhinitis 03/14/2009 SOLO DO, JOSE LUIS K 461.9 Sinusitis Acute 03/14/2009 SOLO DO, JOSE LUIS K 477.9 Allergic Rhinitis 03/14/2009 SOLO DO, JOSE LUIS K 461.9 Sinusitis Acute 03/14/2009 SOLO DO, JOSE LUIS K 477.9 Allergic Rhinitis 03/14/2009 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 [place] E 461.9 Sinusitis Acute 03/14/2009 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, [place] E 477.9 Allergic Rhinitis 03/14/2009 SOLO DO, JOSE LUIS K 461.9 Sinusitis Acute 03/14/2009 SOLO DO, JOSE LUIS K 477.9 Allergic Rhinitis 03/14/2009 SOLO DO, JOSE LUIS K 461.9 Sinusitis Acute 03/14/2009 SOLO DO, JOSE LUIS K 477.9 Allergic Rhinitis 03/14/2009 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 [place] E 461.9 Sinusitis Acute 03/14/2009 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 [place] E 477.9 Allergic Rhinitis 03/14/2009 SOLO DO, JOSE LUIS K 461.9 Sinusitis Acute 03/14/2009 SOLO DO, OJSE LUIS K 477.9 Allergic Rhinitis 05/13/2009 MARITZA NICOLE MD 333. 94 RESTLESS LEGS SYNDROME 05/13/2009 MARITZA NICOLE MD 724. 2 lower back pain 05/13/2009 MARITZA NICOLE MD 333. 94 RESTLESS LEGS SYNDROME 05/13/2009 MARITZA NICOLE MD 724. 2 lower back pain 05/13/2009 MARITZA NICOLE MD 333. 94 RESTLESS LEGS SYNDROME 05/13/2009 MARITZA NICOLE MD 724. 2 lower back pain 05/13/2009 MANNY VALDIVIA APRN 333.94 RESTLESS LEGS SYNDROME 05/13/2009 MANNY VALDIVIA APRN 72 4.2 lower back pain 05/13/2009 333.94 RES TLESS LEGS SYNDROME 05/13/2009 724.2 lowe r back pain 05/13/2009 333.94 RES TLESS LEGS SYNDROME 05/13/2009 724.2 lowe r back pain 05/13/2009 333.94 RES TLESS LEGS SYNDROME 05/13/2009 724.2 lowe r back pain 05/13/2009 333.94 RES TLESS LEGS SYNDROME 05/13/2009 724.2 lowe r back pain 05/13/2009 333.94 RES TLESS LEGS SYNDROME 05/13/2009 724.2 lowe r back pain 05/13/2009 333.94 RES TLESS LEGS SYNDROME 05/13/2009 724.2 lowe r back pain 05/13/2009 SOLO DO, JOSE LUIS K 333.94 RESTLESS LEGS SYNDROME 05/13/2009 SOLO DO, JOSE LUIS K 724.2 lower back pain 05/13/2009 SOLO DO, JOSE LUIS K 333.94 RESTLESS LEGS SYNDROME 05/13/2009 SOLO DO, JOSE LUIS K 724.2 lower back pain 05/13/2009 [facility] [place] E 333.94 RESTLESS LEGS SYNDROME 05/13/2009 [facility] [place] E 724.2 lower back pain 05/13/2009 SOLO DO, JOSE LUIS K 333.94 RESTLESS LEGS SYNDROME 05/13/2009 SOLO DO, JOSE LUIS K 724.2 lower back pain 05/13/2009 RADHAHELENE SINGH [place] E 333.94 RESTLESS LEGS SYNDROME 05/13/2009 RADHAHELENE SINGH, [place] E 724.2 lower back pain 05/13/2009 RADHAHELENE SINGH [place] E 333.94 RESTLESS LEGS SYNDROME 05/13/2009 COLE SINGH [place] E 724.2 lower back pain 05/13/2009 SOLO DO, JOSE LUIS K 333.94 RESTLESS LEGS SYNDROME 05/13/2009 SOLO DO, JOSE LUIS K 724.2 lower back pain 05/13/2009 SOLO DO, JOSE LUIS K 333.94 RESTLESS LEGS SYNDROME 05/13/2009 PHILLIP SOLO DOA K 724.2 lower back pain 05/13/2009 [place] GALVAN APRN 333.94 RESTLESS LEGS SYNDROME 05/13/2009 [place] GALVAN APRN 724.2 lower back pain 05/13/2009 SOLO DO, JOSE LUIS K 333.94 RESTLESS LEGS SYNDROME 05/13/2009 SOLO DO, JOSE LUIS K 724.2 lower back pain 05/13/2009 SOLO DO, JOSE LUIS K 333.94 RESTLESS LEGS SYNDROME 05/13/2009 SOLO DO, JOSE LUIS K 724.2 LOWER BACK PAIN 05/13/2009 GE[place] GALVAN APRN 333.94 RESTLESS LEGS SYNDROME 05/13/2009 [place] GALVAN APRN 724.2 LOWER BACK PAIN 05/13/2009 SOLO DO, JOSE LUIS K 333.94 RESTLESS LEGS SYNDROME 05/13/2009 SOLO DO, JOSE LUIS K 724.2 LOWER BACK PAIN 08/23/2009 MARITZA NICOLE MD 535. 50 Gastritis Unspec 08/23/2009 MARITZA NICOLE MD 535. 50 Gastritis Unspec 08/23/2009 MARITZA NICOLE MD 535. 50 Gastritis Unspec 08/23/2009 MANNY VALDIVIA APRN 535.50 Gastritis Unspec 08/23/2009 535.50 Gas tritis Unspec 08/23/2009 535.50 Gas tritis Unspec 08/23/2009 535.50 Gas tritis Unspec 08/23/2009 535.50 Gas tritis Unspec 08/23/2009 535.50 Gas tritis Unspec 08/23/2009 535.50 Gas tritis Unspec 08/23/2009 JOSE LUIS SOLO DO 535.50 Gastritis Unspec 08/23/2009 JOSE LUIS SOLO DO 535.50 Gastritis Unspec 08/23/2009 [place] GALVAN APRN 535.50 Gastritis Unspec 08/23/2009 JOSE LUIS SOLO DO 535.50 Gastritis Unspec 08/23/2009 [place] GALVAN APRN 535.50 Gastritis Unspec 08/23/2009 [place] GALVAN APRN 535.50 Gastritis Unspec 08/23/2009 JOSE LUIS SOLO DO 535.50 Gastritis Unspec 08/23/2009 JOSE LUIS SOLO DO 535.50 Gastritis Unspec 08/23/2009 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, [place] E 535.50 Gastritis Unspec 08/23/2009 SOLO DO, JOSE LUIS K 535.50 Gastritis Unspec 08/23/2009 SOLO DO, JOSE LUIS K 535.50 Gastritis Unspec 08/23/2009 [place] GALVAN APRN E 535.50 Gastritis Unspec 08/23/2009 SOLO DO, JOSE LUIS K 535.50 Gastritis Unspec 09/07/2009 Ot 535.50 09/07/2009 Ot V45.86 11/05/2009 Ot 250.00 11/05/2009 Ot 280.9 11/05/2009 Ot 305.1 11/05/2009 Ot 401.9 11/05/2009 Ot 427.89 11/05/2009 Ot 535.50 11/05/2009 Ot V45.86 11/05/2009 Ot V58.69 11/08/2009 MARITZA NICOLE MD 280. 9 IRON DEFICIENCY ANEMIA 11/08/2009 MARITZA NICOLE MD 280. 9 IRON DEFICIENCY ANEMIA 11/08/2009 MARITZA NICOLE MD 280. 9 IRON DEFICIENCY ANEMIA 11/08/2009 MANNY VALDIVIA APRN 28 0.9 IRON DEFICIENCY ANEMIA 11/08/2009 280.9 IRON DEFICIENCY ANEMIA 11/08/2009 280.9 IRON DEFICIENCY ANEMIA 11/08/2009 280.9 IRON DEFICIENCY ANEMIA 11/08/2009 280.9 IRON DEFICIENCY ANEMIA 11/08/2009 280.9 IRON DEFICIENCY ANEMIA 11/08/2009 280.9 IRON DEFICIENCY ANEMIA 11/08/2009 SOLO DO, JOSE LUIS K 280.9 IRON DEFICIENCY ANEMIA 11/08/2009 SOLO DO, JOSE LUIS K 280.9 IRON DEFICIENCY ANEMIA 11/08/2009 PHILLIP GALVAN APRNSIE E 280.9 IRON DEFICIENCY ANEMIA 11/08/2009 SOLO DO, JOSE LUIS K 280.9 IRON DEFICIENCY ANEMIA 11/08/2009 PHILLIP GALVAN APRNSIE E 280.9 IRON DEFICIENCY ANEMIA 11/08/2009 PHILLIP GALVAN APRNSIE E 280.9 IRON DEFICIENCY ANEMIA 11/08/2009 SOLO DO, JOSE LUIS K 280.9 IRON DEFICIENCY ANEMIA 11/08/2009 SOLO DO, JOSE LUIS K 280.9 IRON DEFICIENCY ANEMIA 11/08/2009 COLE SINGH [place] E 280.9 IRON DEFICIENCY ANEMIA 11/08/2009 SOLO DO, JOSE LUIS K 280.9 IRON DEFICIENCY ANEMIA 11/08/2009 SOLO DO, JOSE LUIS K 280.9 IRON DEFICIENCY ANEMIA 11/08/2009 [place] GALVAN APRN E 280.9 IRON DEFICIENCY ANEMIA 11/08/2009 SOLO DO, JOSE LUIS K 280.9 IRON DEFICIENCY ANEMIA 11/22/2009 MARITZA NICOLE MD 285. 9 Anemia Unspecified 11/22/2009 MARITZA NICOLE MD 780. 52 Insomnia Unspecified 11/22/2009 MARITZA NICOLE MD 285. 9 Anemia Unspecified 11/22/2009 MARITZA NICOLE MD 780. 52 Insomnia Unspecified 11/22/2009 MARITZA NICOLE MD 285. 9 Anemia Unspecified 11/22/2009 MARITZA NICOLE MD 780. 52 Insomnia Unspecified 11/22/2009 MANNY VALDIVIA APRN 28 5.9 Anemia Unspecified 11/22/2009 MANNY VALDIVIA APRN 780.52 Insomnia Unspecified 11/22/2009 285.9 Anem ia Unspecified 11/22/2009 780.52 Ins omnia Unspecified 11/22/2009 285.9 Anem ia Unspecified 11/22/2009 780.52 Ins omnia Unspecified 11/22/2009 285.9 Anem ia Unspecified 11/22/2009 780.52 Ins omnia Unspecified 11/22/2009 285.9 Anem ia Unspecified 11/22/2009 780.52 Ins omnia Unspecified 11/22/2009 285.9 Anem ia Unspecified 11/22/2009 780.52 Ins omnia Unspecified 11/22/2009 285.9 Anem ia Unspecified 11/22/2009 780.52 Ins omnia Unspecified 11/22/2009 SOLO DO, JOSE LUIS K 285.9 Anemia Unspecified 11/22/2009 SOLO DO, JOSE LUIS K 780.52 Insomnia Unspecified 11/22/2009 SOLO DO, JOSE LUIS K 285.9 Anemia Unspecified 11/22/2009 SOLO DO, JOSE LUIS K 780.52 Insomnia Unspecified 11/22/2009 [place] GALVAN APRN E 285.9 Anemia Unspecified 11/22/2009 [place] GALVAN APRN E 780.52 Insomnia Unspecified 11/22/2009 SOLO DO, JOSE LUIS K 285.9 Anemia Unspecified 11/22/2009 SLOO DO, JOSE LUIS K 780.52 Insomnia Unspecified 11/22/2009 GERHARD GALVAN APRNE E 285.9 Anemia Unspecified 11/22/2009 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, [place] E 780.52 Insomnia Unspecified 11/22/2009 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 [place] E 285.9 Anemia Unspecified 11/22/2009 HELWIG 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, [place] E 780.52 Insomnia Unspecified 11/22/2009 SOLO DO, JOSE LUIS K 285.9 Anemia Unspecified 11/22/2009 SOLO DO, JOSE LUIS K 780.52 Insomnia Unspecified 11/22/2009 SOLO DO, JOS ELUIS K 285.9 Anemia Unspecified 11/22/2009 SOLO DO, JOSE ULIS K 780.52 Insomnia Unspecified 11/22/2009 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 [place] E 285.9 Anemia Unspecified 11/22/2009 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 [place] E 780.52 Insomnia Unspecified 11/22/2009 SOLO DO, JOSE LUIS K 285.9 Anemia Unspecified 11/22/2009 SOLO DO, JOSE LUIS K 780.52 Insomnia Unspecified 11/22/2009 SOLO DO, JOSE LUIS K 285.9 Anemia Unspecified 11/22/2009 SOLO DO, JOSE LUIS K 780.52 Insomnia Unspecified 11/22/2009 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 [place] E 285.9 Anemia Unspecified 11/22/2009 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 [place] E 780.52 Insomnia Unspecified 11/22/2009 SOLO DO, JOSE LUIS K 285.9 Anemia Unspecified 11/22/2009 SOLO DO, JOSE LUIS K 780.52 Insomnia Unspecified 11/30/2009 Ot 285.9 11/30/2009 Ot 562.10 11/30/2009 Ot 569.89 11/30/2009 Ot 783.21 11/30/2009 Ot V45.86 03/09/2010 MARITZA NICOLE MD 724. 3 Sciatica 03/09/2010 MARITZA NICOLE MD 724. 3 Sciatica 03/09/2010 MARITZA NICOLE MD 724. 3 Sciatica 03/09/2010 MANNY VALDIVIA APRN 72 4.3 Sciatica 03/09/2010 724.3 Sciatica 03/09/2010 724.3 Sciatica 03/09/2010 724.3 Sciatica 03/09/2010 724.3 Sciatica 03/09/2010 724.3 Sciatica 03/09/2010 724.3 Sciatica 03/09/2010 SOLO DO, JOSE LUIS K 724.3 Sciatica 03/09/2010 SOLO DO, JOSE LUIS K 724.3 Sciatica 03/09/2010 COLE SINGH [place] E 724.3 Sciatica 03/09/2010 SOLO DO, JOSE LUIS K 724.3 Sciatica 03/09/2010 HELLHELENE 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 [place] E 724.3 Sciatica 03/09/2010 HELKRISTOPHER 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PHILLIPGEORGIA E 724.3 Sciatica 03/09/2010 SOLO DO, JOSE LUIS K 724.3 Sciatica 03/09/2010 SOLO DO, JOSE LUIS K 724.3 Sciatica 03/09/2010 HELLHELENE 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, [place] E 724.3 Sciatica 03/09/2010 SOLO DO, JOSE LUIS K 724.3 Sciatica 03/09/2010 SOLO DO, JOSE LUIS K 724.3 Sciatica 03/09/2010 [place] GALVAN APRN E 724.3 Sciatica 03/09/2010 SOLO DO, JOSE LUIS K 724.3 Sciatica 03/13/2010 Ot 280.9 08/17/2010 MARITZA NICOLE MD 692. 9 CONTACT DERMATITIS AND OTHER ECZEMA UNSPECIFIED CAUSE 08/17/2010 MARITZA NICOLE MD 692. 9 CONTACT DERMATITIS AND OTHER ECZEMA UNSPECIFIED CAUSE 08/17/2010 MARITZA NCIOLE MD 692. 9 CONTACT DERMATITIS AND OTHER ECZEMA UNSPECIFIED CAUSE 08/17/2010 MANNY VALDIVIA APRN 69 2.9 CONTACT DERMATITIS AND OTHER ECZEMA UNSPECIFIED CAUSE 08/17/2010 692.9 CONT ACT DERMATITIS AND OTHER ECZEMA UNSPECIFIED CAUSE 08/17/2010 692.9 CONT ACT DERMATITIS AND OTHER ECZEMA UNSPECIFIED CAUSE 08/17/2010 692.9 CONT ACT DERMATITIS AND OTHER ECZEMA UNSPECIFIED CAUSE 08/17/2010 692.9 CONT ACT DERMATITIS AND OTHER ECZEMA UNSPECIFIED CAUSE 08/17/2010 692.9 CONT ACT DERMATITIS AND OTHER ECZEMA UNSPECIFIED CAUSE 08/17/2010 692.9 CONT ACT DERMATITIS AND OTHER ECZEMA UNSPECIFIED CAUSE 08/17/2010 SOLO DO, JOSE LUIS K 692.9 CONTACT DERMATITIS AND OTHER ECZEMA UNSPECIFIED CAUSE 08/17/2010 SOLO DO, JOSE LUIS K 692.9 CONTACT DERMATITIS AND OTHER ECZEMA UNSPECIFIED CAUSE 08/17/2010 HE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, [place] E 692.9 CONTACT DERMATITIS AND OTHER ECZEMA UNSPECIFIED CAUSE 08/17/2010 SOLO DO, JOSE LUIS K 692.9 CONTACT DERMATITIS AND OTHER ECZEMA UNSPECIFIED CAUSE 08/17/2010 HELLW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, [place] E 692.9 CONTACT DERMATITIS AND OTHER ECZEMA UNSPECIFIED CAUSE 08/17/2010 HELLW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, [place] E 692.9 CONTACT DERMATITIS AND OTHER ECZEMA UNSPECIFIED CAUSE 08/17/2010 SOLO DO, JOSE LUIS K 692.9 CONTACT DERMATITIS AND OTHER ECZEMA UNSPECIFIED CAUSE 08/17/2010 SOLO DO, JOSE LUIS K 692.9 CONTACT DERMATITIS AND OTHER ECZEMA UNSPECIFIED CAUSE 08/17/2010 HELLWIG 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, [place] E 692.9 CONTACT DERMATITIS AND OTHER ECZEMA UNSPECIFIED CAUSE 08/17/2010 SOLO DO, JOSE LUIS K 692.9 CONTACT DERMATITIS AND OTHER ECZEMA UNSPECIFIED CAUSE 08/17/2010 SOLO DO, JOSE LUIS K 692.9 CONTACT DERMATITIS AND OTHER ECZEMA UNSPECIFIED CAUSE 08/17/2010 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, [place] E 692.9 CONTACT DERMATITIS AND OTHER ECZEMA UNSPECIFIED CAUSE 08/17/2010 SOLO DO, JOSE LUIS K 692.9 CONTACT DERMATITIS AND OTHER ECZEMA UNSPECIFIED CAUSE 06/05/2011 MARITZA NICOLE MD 266. 2 VITAMIN B12 DEFICIENCY 06/05/2011 MARITZA NICOLE MD 357. 2 POLYNEUROPATHY DIABETIC 06/05/2011 MARITZA NICOLE MD 266. 2 VITAMIN B12 DEFICIENCY 06/05/2011 MARITZA NICOLE MD 357. 2 POLYNEUROPATHY DIABETIC 06/05/2011 MARITZA NICOLE MD 266. 2 VITAMIN B12 DEFICIENCY 06/05/2011 MARITZA NICOLE MD 357. 2 POLYNEUROPATHY DIABETIC 06/05/2011 MANNY VALDIVIA APRN 26 6.2 VITAMIN B12 DEFICIENCY 06/05/2011 MANNY VALDIVIA APRN 35 7.2 POLYNEUROPATHY DIABETIC 06/05/2011 266.2 DEVIN MIN B12 DEFICIENCY 06/05/2011 357.2 POLY NEUROPATHY DIABETIC 06/05/2011 266.2 DEVIN MIN B12 DEFICIENCY 06/05/2011 357.2 POLY NEUROPATHY DIABETIC 06/05/2011 266.2 DEVIN MIN B12 DEFICIENCY 06/05/2011 357.2 POLY NEUROPATHY DIABETIC 06/05/2011 266.2 DEVIN MIN B12 DEFICIENCY 06/05/2011 357.2 POLY NEUROPATHY DIABETIC 06/05/2011 266.2 DEVIN MIN B12 DEFICIENCY 06/05/2011 357.2 POLY NEUROPATHY DIABETIC 06/05/2011 266.2 DEVIN MIN B12 DEFICIENCY 06/05/2011 357.2 POLY NEUROPATHY DIABETIC 06/05/2011 SOLO DO, JOSE LUIS K 266.2 VITAMIN B12 DEFICIENCY 06/05/2011 SOLO DO, JOSE LUIS K 357.2 POLYNEUROPATHY DIABETIC 06/05/2011 SOLO DO, JOSE LUIS K 266.2 VITAMIN B12 DEFICIENCY 06/05/2011 SOLO DO, JOSE LUIS K 357.2 POLYNEUROPATHY DIABETIC 06/05/2011 [facility] [place] E 266.2 VITAMIN B12 DEFICIENCY 06/05/2011 [facility] NARAY[facility] APRNSIE E 357.2 POLYNEUROPATHY DIABETIC 06/05/2011 SOLO DO, JOSE LUIS K 266.2 VITAMIN B12 DEFICIENCY 06/05/2011 SOLO DO, JOSE LUIS K 357.2 POLYNEUROPATHY DIABETIC 06/05/2011 RADHAPHILLIP NARAYAN APRNSIE E 266.2 VITAMIN B12 DEFICIENCY 06/05/2011 [facility] APRNSIE E 357.2 POLYNEUROPATHY DIABETIC 06/05/2011 RADHAPHILLIP NARAYAN APRNSIE E 266.2 VITAMIN B12 DEFICIENCY 06/05/2011 RADHAPHILLIP NARAYAN APRNSIE E 357.2 POLYNEUROPATHY DIABETIC 06/05/2011 SOLO DO, JOSE LUIS K 266.2 VITAMIN B12 DEFICIENCY 06/05/2011 SOLO DO, JOSE LUIS K 357.2 POLYNEUROPATHY DIABETIC 06/05/2011 SOLO DO, JOSE LUIS K 266.2 VITAMIN B12 DEFICIENCY 06/05/2011 SOLO DO, JOSE LUIS K 357.2 POLYNEUROPATHY DIABETIC 06/05/2011 RADHAHELENE SINGH [place] E 266.2 VITAMIN B12 DEFICIENCY 06/05/2011 RADHAHELENE SINGH [place] E 357.2 POLYNEUROPATHY DIABETIC 06/05/2011 SOLO DO, JOSE LUIS K 266.2 VITAMIN B12 DEFICIENCY 06/05/2011 SOLO DO, JOSE LUIS K 357.2 POLYNEUROPATHY DIABETIC 06/05/2011 SOLO DO, JOSE LUIS K 266.2 VITAMIN B12 DEFICIENCY 06/05/2011 SOLO DO, JOSE LUIS K 357.2 POLYNEUROPATHY DIABETIC 06/05/2011 [facility] [place] 266.2 VITAMIN B12 DEFICIENCY 06/05/2011 RADHAHELENE SINGH [place] E 357.2 POLYNEUROPATHY DIABETIC 06/05/2011 JOSE LUIS SOLO DO 266.2 VITAMIN B12 DEFICIENCY 06/05/2011 JOSE LUIS SOLO DO 357.2 POLYNEUROPATHY DIABETIC 09/28/2011 MARITZA NICOLE MD 338. 29 CHRONIC PAIN 09/28/2011 MARITZA NICOLE MD V76. 12 Mammogram Screening 09/28/2011 MARITZA NICOLE MD 338. 29 CHRONIC PAIN 09/28/2011 MARITZA NICOLE MD V76. 12 Mammogram Screening 09/28/2011 MARITZA NICOLE MD 338. 29 CHRONIC PAIN 09/28/2011 MARITZA NICOLE MD V76. 12 Mammogram Screening 09/28/2011 MANNY VALDIVIA APRN 338.29 CHRONIC PAIN 09/28/2011 MANNY VALDIVIA APRN V76.12 Mammogram Screening 09/28/2011 338.29 CHR ONIC PAIN 09/28/2011 V76.12 Crispin mogram Screening 09/28/2011 338.29 CHR ONIC PAIN 09/28/2011 V76.12 Crispin mogram Screening 09/28/2011 338.29 CHR ONIC PAIN 09/28/2011 V76.12 Crispin mogram Screening 09/28/2011 338.29 CHR ONIC PAIN 09/28/2011 V76.12 Crispin mogram Screening 09/28/2011 338.29 CHR ONIC PAIN 09/28/2011 V76.12 Crispin mogram Screening 09/28/2011 338.29 CHR ONIC PAIN 09/28/2011 V76.12 Crispin mogram Screening 09/28/2011 JOSE LUIS SOLO DO K 338.29 CHRONIC PAIN 09/28/2011 JOSE LUIS SOLO DO V76.12 Mammogram Screening 09/28/2011 JOSE LUIS SOLO DO K 338.29 CHRONIC PAIN 09/28/2011 PHILLIP SOLO DOA K V76.12 Mammogram Screening 09/28/2011 [place] GALVAN APRN 338.29 CHRONIC PAIN 09/28/2011 [place] GALVAN APRN V76.12 Mammogram Screening 09/28/2011 JOSE LUIS SOLO DO 338.29 CHRONIC PAIN 09/28/2011 PHILLIP SOLO DOA K V76.12 Mammogram Screening 09/28/2011 [place] GALVAN APRN 338.29 CHRONIC PAIN 09/28/2011 [place] GALVAN APRN V76.12 Mammogram Screening 09/28/2011 [place] GALVAN APRN 338.29 CHRONIC PAIN 09/28/2011 [place] GALVAN APRN V76.12 Mammogram Screening 09/28/2011 SOLO DO, JOSE LUIS K 338.29 CHRONIC PAIN 09/28/2011 SOLO DO, JOSE LUIS K V76.12 Mammogram Screening 09/28/2011 SOLO DO, JOSE LUIS K 338.29 CHRONIC PAIN 09/28/2011 SOLO DO, JOSE LUIS K V76.12 Mammogram Screening 09/28/2011 [place] GALVAN APRN E 338.29 CHRONIC PAIN 09/28/2011 [place] GALVAN APRN E V76.12 Mammogram Screening 09/28/2011 SOLO DO, JOSE LUIS K 338.29 CHRONIC PAIN 09/28/2011 SOLO DO, JOSE LUIS K V76.12 Mammogram Screening 09/28/2011 SOLO DO, JOSE LUIS K 338.29 CHRONIC PAIN 09/28/2011 SOLO DO, JOSE LUIS K V76.12 MAMMOGRAM SCREENING 09/28/2011 [facility] APRN 338.29 CHRONIC PAIN 09/28/2011 [place] GALVAN APRN V76.12 MAMMOGRAM SCREENING 09/28/2011 SOLO DO, JOSE LUIS K 338.29 CHRONIC PAIN 09/28/2011 SOLO DO, JOSE LUIS K V76.12 MAMMOGRAM SCREENING 12/25/2011 COREY REYES, MARITZA 706. 2 SEBACEOUS CYST 12/25/2011 COREY REYES, MARITZA 706. 2 SEBACEOUS CYST 12/25/2011 COERY REYES, MARITZA 706. 2 SEBACEOUS CYST 12/25/2011 MANNY VALDIVIA APRN 70 6.2 SEBACEOUS CYST 12/25/2011 706.2 SEBA CEOUS CYST 12/25/2011 706.2 SEBA CEOUS CYST 12/25/2011 706.2 SEBA CEOUS CYST 12/25/2011 706.2 SEBA CEOUS CYST 12/25/2011 706.2 SEBA CEOUS CYST 12/25/2011 706.2 SEBA CEOUS CYST 12/25/2011 SOLO DO JOSE LUIS K 706.2 SEBACEOUS CYST 12/25/2011 SOLO DO, JOSE LUIS K 706.2 SEBACEOUS CYST 12/25/2011 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, [place] E 706.2 SEBACEOUS CYST 12/25/2011 GERMAN[place] PINEDA JOSE LUIS K 706.2 SEBACEOUS CYST 12/25/2011 [place] GALVAN APRN E 706.2 SEBACEOUS CYST 12/25/2011 PHILLIP GALVAN APRNSIE E 706.2 SEBACEOUS CYST 12/25/2011 [place] PINEAD JOSE LUIS K 706.2 SEBACEOUS CYST 12/25/2011 SOLO PHILLIP PINEDAA K 706.2 SEBACEOUS CYST 12/25/2011 PHILLIP GALVAN APRNSIE E 706.2 SEBACEOUS CYST 12/25/2011 GERMANIA PINEDA, JOSE LUIS K 706.2 SEBACEOUS CYST 12/25/2011 SOLO , JOSE LUIS K 706.2 SEBACEOUS CYST 12/25/2011 [place] GALVAN APRN E 706.2 SEBACEOUS CYST 12/25/2011 PHILLIP SOLO DOA K 706.2 SEBACEOUS CYST 04/01/2012 COREY REYES, MARITZA 724. 4 LUMBAR RADICULOPATHY 04/01/2012 MANNY VALDIVIA APRN 72 4.4 LUMBAR RADICULOPATHY 04/01/2012 724.4 LUMB AR RADICULOPATHY 04/01/2012 724.4 LUMB AR RADICULOPATHY 04/01/2012 724.4 LUMB AR RADICULOPATHY 04/01/2012 724.4 LUMB AR RADICULOPATHY 04/01/2012 724.4 LUMB AR RADICULOPATHY 04/01/2012 724.4 LUMB AR RADICULOPATHY 04/01/2012 JOSE LUIS SOLO DO K 724.4 LUMBAR RADICULOPATHY 04/01/2012 PHILLIP SOLO DOA K 724.4 LUMBAR RADICULOPATHY 04/01/2012 [place] GALVAN APRN E 724.4 LUMBAR RADICULOPATHY 04/01/2012 PHILLIP SOLO DOA K 724.4 LUMBAR RADICULOPATHY 04/01/2012 [place] GALVAN APRN E 724.4 LUMBAR RADICULOPATHY 04/01/2012 [place] GALVAN APRN 724.4 LUMBAR RADICULOPATHY 04/01/2012 JOSE LUIS SOLO DO K 724.4 LUMBAR RADICULOPATHY 04/01/2012 SOLO DO, JOSE LUIS K 724.4 LUMBAR RADICULOPATHY 04/01/2012 HELLHELENE SINGH [place] E 724.4 LUMBAR RADICULOPATHY 04/01/2012 SOLO DO, JOSE LUIS K 724.4 LUMBAR RADICULOPATHY 04/01/2012 SOLO DO, JOSE LUIS K 724.4 LUMBAR RADICULOPATHY 04/01/2012 HELLHELENE SINGH [place] E 724.4 LUMBAR RADICULOPATHY 04/01/2012 SOLO DO, JOSE LUIS K 724.4 LUMBAR RADICULOPATHY 06/24/2012 796.2 Bloo d Pressure Isolated Elevated 06/24/2012 796.2 Bloo d Pressure Isolated Elevated 06/24/2012 796.2 Bloo d Pressure Isolated Elevated 06/24/2012 796.2 Bloo d Pressure Isolated Elevated 06/24/2012 796.2 Bloo d Pressure Isolated Elevated 06/24/2012 SOLO DO, JOSE LUIS K 796.2 Blood Pressure Isolated Elevated 06/24/2012 SOLO DO, JOSE LUIS K 796.2 Blood Pressure Isolated Elevated 06/24/2012 COLE SINGH [place] E 796.2 Blood Pressure Isolated Elevated 06/24/2012 SOLO DO, JOSE LUIS K 796.2 Blood Pressure Isolated Elevated 06/24/2012 COLE SINGH [place] E 796.2 Blood Pressure Isolated Elevated 06/24/2012 COLE SINGH [place] E 796.2 Blood Pressure Isolated Elevated 06/24/2012 SOLO DO, JOSE LUIS K 796.2 Blood Pressure Isolated Elevated 06/24/2012 SOLO DO, JOSE LUIS K 796.2 Blood Pressure Isolated Elevated 06/24/2012 COLE SINGH [place] E 796.2 Blood Pressure Isolated Elevated 06/24/2012 SOLO DO, JOSE LUIS K 796.2 Blood Pressure Isolated Elevated 06/24/2012 SOLO DO, JOSE LUIS K 796.2 BLOOD PRESSURE ISOLATED ELEVATED 06/24/2012 RADHALHELENE SINGH [place] E 796.2 BLOOD PRESSURE ISOLATED ELEVATED 06/24/2012 SOLO DO, JOSE LUIS K 796.2 BLOOD PRESSURE ISOLATED ELEVATED 07/04/2012 COREY REYES, MARITZA Rasmussen Ot 724.4 LUMBOSACRAL NEURITIS NOS 07/04/2012 COREY REYES, MARITZA Rasmussen Ot V57.1 PHYSICAL THERAPY NEC 02/19/2013 HELLWIG 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, [place] E V78.0 ANEMIA SCREENING 02/19/2013 SOLO DO, JOS ELUIS K V78.0 ANEMIA SCREENING 02/19/2013 [employer]LL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, [place] E V78.0 ANEMIA SCREENING 02/19/2013 HELL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, [place] E V78.0 ANEMIA SCREENING 02/19/2013 SOLO DO, JOSE LUIS K V78.0 ANEMIA SCREENING 02/19/2013 SOLO DO, JOSE LUIS K V78.0 ANEMIA SCREENING 02/19/2013 HELLW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, [place] E V78.0 ANEMIA SCREENING 02/19/2013 SOLO DO, JOSE LUIS K V78.0 ANEMIA SCREENING 02/19/2013 SOLO DO, JOSE LUIS K V78.0 ANEMIA SCREENING 02/19/2013 HELLW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, [place] E V78.0 ANEMIA SCREENING 02/19/2013 SOLO DO, JOSE LUIS K V78.0 ANEMIA SCREENING 03/16/2013 SOLO DO, JOSE LUIS K 214.8 LIPOMA OF OTHER SPECIFIED SITES 03/16/2013 SOLO DO, JOSE LUIS K 729.5 PAIN IN LIMB 03/16/2013 HELL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, [place] E 214.8 LIPOMA OF OTHER SPECIFIED SITES 03/16/2013 HELL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, [place] E 729.5 PAIN IN LIMB 03/16/2013 HELL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, [place] E 214.8 LIPOMA OF OTHER SPECIFIED SITES 03/16/2013 HELL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 [place] E 729.5 PAIN IN LIMB 03/16/2013 SOLO DO, JOSE LUIS K 214.8 LIPOMA OF OTHER SPECIFIED SITES 03/16/2013 SOLO DO, JOSE LUIS K 729.5 PAIN IN LIMB 03/16/2013 SOLO DO, JOSE LUIS K 214.8 LIPOMA OF OTHER SPECIFIED SITES 03/16/2013 SOLO DO, JOSE LUIS K 729.5 PAIN IN LIMB 03/16/2013 HELLWIG 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, [place] E 214.8 LIPOMA OF OTHER SPECIFIED SITES 03/16/2013 HELLWIG 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, [place] E 729.5 PAIN IN LIMB 03/16/2013 SOLO DO, JOSE LUIS K 214.8 LIPOMA OF OTHER SPECIFIED SITES 03/16/2013 PHILLIP SOLO DOA K 729.5 PAIN IN LIMB 03/16/2013 SOLO DO JOSE LUIS K 214.8 LIPOMA OF OTHER SPECIFIED SITES 03/16/2013 SOLO DO JOSE LUIS K 729.5 PAIN IN LIMB 03/16/2013 [place] GALVAN APRN E 214.8 LIPOMA OF OTHER SPECIFIED SITES 03/16/2013 [place] GALVAN APRN 729.5 PAIN IN LIMB 03/16/2013 GERMANIA PINEDA JOSE LUIS K 214.8 LIPOMA OF OTHER SPECIFIED SITES 03/16/2013 PHILLIP SOLO DOA K 729.5 PAIN IN LIMB 05/22/2013 AWA REYES, JOSE Rasmussen Ot V45.4 ARTHRODESIS STATUS 05/22/2013 AWA REYES, JOSE Rasmussen Ot V57.1 PHYSICAL THERAPY NEC 06/18/2013 [place] GALVAN APRN 250.02 DIABETES MELLITUS TYPE 2 - UNCOMPLICATED, UNCONTROLLED 06/18/2013 PHILLIP SOLO DOA K 250.02 DIABETES MELLITUS TYPE 2 - UNCOMPLICATED, UNCONTROLLED 06/18/2013 PHILLIP SOLO DOA K 250.02 DIABETES MELLITUS TYPE 2 - UNCOMPLICATED, UNCONTROLLED 06/18/2013 [place] GALVAN APRN E 250.02 DIABETES MELLITUS TYPE 2 - UNCOMPLICATED, UNCONTROLLED 06/18/2013 PHILLIP SOLO DOA K 250.02 DIABETES MELLITUS TYPE 2 - UNCOMPLICATED, UNCONTROLLED 06/18/2013 [place]ER[place] PINEDA JOSE LUIS K 250.02 DIABETES MELLITUS TYPE 2 - UNCOMPLICATED, UNCONTROLLED 06/18/2013 [place] GALVAN APRN E 250.02 DIABETES MELLITUS TYPE 2 - UNCOMPLICATED, UNCONTROLLED 06/18/2013 PHILLIP SOLO DOA K 250.02 DIABETES MELLITUS TYPE 2 - UNCOMPLICATED, UNCONTROLLED 07/11/2013 ANURADHA BUTLER DO Ot 338.29 OTHER CHRONIC PAIN 07/11/2013 ANURADHA BUTLER DO Ot 599.0 URIN TRACT INFECTION NOS 07/11/2013 ANURADHA BUTLER DO Ot 780.4 DIZZINESS AND GIDDINESS 05/07/2014 [place] GALVAN APRN 781.2 ABNORMALITY OF GAIT 05/07/2014 JOSE LUIS SOLO DO K 781.2 ABNORMALITY OF GAIT 05/28/2014 [place] GALVAN APRN 682.6 CELLULITIS AND ABSCESS OF LEG EXCEPT [...] DO Ot R30.0 DYSURIA 10/30/2015 Ot 250.00 JOAN B MARY WO COMPL, TYPE II OR UNSPEC TY 10/30/2015 Ot 280.9 IRON DEFIC ANEMIA NOS 10/30/[address] ABSENCE OF GENITAL ORGANS 10/30/2015 Ot V45.86 BAR IATRIC SURGERY STATUS 10/30/2015 Ot V58.69 OTH MED,LT,CURRENT USE 10/30/2015 Ot 780.79 OTH MALAISE FATIGUE 10/30/2015 Ot V12.3 HX-B LOOD DISEASES 10/30/2015 Ot V58.69 OTH MED,LT,CURRENT USE 10/30/2015 Ot 724.02 SPI NAL STENOSIS, LUMBAR REG, W/OUT NEURO 10/30/2015 Ot 781.2 ABNO RMALITY OF GAIT 10/30/2015 [place] GALVAN APRN Ot 729.81 SWELLING OF LIMB 05/16/2017 RICK SAMPSON APRN Ot E11.40 TYPE 2 DIABETES MELLITUS WITH DIABETIC N 05/16/2017 RICK SAMPSON APRN Ot E11.649 TYPE 2 DIABETES MELLITUS WITH HYPOGLYCEM 05/16/2017 RICK SAMPSON APRN Ot E78.00 PURE HYPERCHOLESTEROLEMIA, UNSPECIFIED 05/16/2017 RICK SAMPSON APRN Ot G47 .9 SLEEP DISORDER, UNSPECIFIED 05/16/2017 RICK SAMPSON APRN Ot I10 ESSENTIAL (PRIMARY) HYPERTENSION 05/16/2017 RICK SAMPSON APRN Ot N39 .0 URINARY TRACT INFECTION, SITE NOT SPECIF 05/16/2017 RICK SAMPSON 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 Ot R53 .1 WEAKNESS 05/16/2017 RICK SAMPSON 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 Ot Z79.84 REGULATOR PIN INSERTER (CURRENT) USE OF ORAL HYPOGLYC 05/16/2017 Ot 724.02 SPI NAL STENOSIS, LUMBAR REG, W/OUT NEURO 05/16/2017 Ot 781.2 ABNO RMALITY OF GAIT 05/16/2017 [place] GALVAN 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 Ot 729.81 SWELLING OF LIMB 06/03/2017 LUKE DO, ANURADHA K Ot E11.40 TYPE 2 DIABETES MELLITUS WITH DIABETIC N 06/03/2017 ULKE DO, ANURADHA K Ot E11.649 TYPE 2 DIABETES MELLITUS WITH HYPOGLYCEM 06/03/2017 LUKE DO, ANURADHA K Ot E16.2 HYPOGLYCEMIA, UNSPECIFIED 06/03/2017 LUKE DO, ANURADHA K Ot E78.00 PURE HYPERCHOLESTEROLEMIA, UNSPECIFIED 06/03/2017 LKUE DO, ANURADHA K Ot F32.9 MAJOR DEPRESSIVE DISORDER, SINGLE EPISOD 06/03/2017 LUKE DO, ANURADHA K Ot F41.9 ANXIETY DISORDER, UNSPECIFIED 06/03/2017 LUKE DO, ANURADHA K Ot G25.81 RESTLESS LEGS SYNDROME 06/03/2017 LUKE DO, ANURADHA K Ot I10 ESSENTIAL (PRIMARY) HYPERTENSION 06/03/2017 LUKE DO, ANURADHA K Ot N39.0 URINARY TRACT INFECTION, SITE NOT SPECIF 06/03/2017 LUKE DO, ANURADHA K Ot Z79.84 INTERMEDIATE (CURRENT) USE OF ORAL HYPOGLYC 06/03/2017 LUKE DO, ANURADHA K Ot Z87.448 PERSONAL HISTORY OF OTHER DISEASES OF UR 06/03/2017 LUKE DO, ANURADHA K Ot Z98.84 BARIATRIC SURGERY STATUS 06/05/2017 LUKE DO, ANURADHA K Ot E11.40 TYPE 2 DIABETES MELLITUS WITH DIABETIC N 06/05/2017 LUKE DO, ANURADHA K Ot E11.649 TYPE 2 DIABETES MELLITUS WITH HYPOGLYCEM 06/05/2017 LUKE DO, ANURADHA K Ot E16.2 HYPOGLYCEMIA, UNSPECIFIED 06/05/2017 LUKE DO, ANURADHA K Ot E78.00 PURE HYPERCHOLESTEROLEMIA, UNSPECIFIED 06/05/2017 LUKE DO, ANURADHA K Ot F32.9 MAJOR DEPRESSIVE DISORDER, SINGLE EPISOD 06/05/2017 LUKE ANURADHA PINEDA Ot F41.9 ANXIETY DISORDER, UNSPECIFIED 06/05/2017 LUKE HEYDI PINEDAA K Ot G25.81 RESTLESS LEGS SYNDROME 06/05/2017 LUKE DO ANURADHA K Ot I10 ESSENTIAL (PRIMARY) HYPERTENSION 06/05/2017 LUKE ANURADHA PINEDA Ot N39.0 URINARY TRACT INFECTION, SITE NOT SPECIF 06/05/2017 LUKE DO ANURADHA K Ot Z79.84 INTERMEDIATE (CURRENT) USE OF ORAL HYPOGLYC 06/05/2017 LUKE DO ANURADHA K Ot Z87.448 PERSONAL HISTORY OF OTHER DISEASES OF UR 06/05/2017 LUKEHEYDI Arnett DOA K Ot Z98.84 BARIATRIC SURGERY STATUS 09/19/2017 PAOLA ESCAMILLA MD, Ot H25.11 AGE-RELATED NUCLEAR CATARACT, RIGHT EYE 09/19/2017 PAOLA ESCAMILLA MD, Ot Z01.818 ENCOUNTER FOR OTHER PREPROCEDURAL EXAMIN 09/20/2017 PAOLA ESCAMILLA MD Ot E11.36 TYPE 2 DIABETES MELLITUS WITH DIABETIC C 09/20/2017 PAOLA ESCAMILLA MD Ot I10 ESSENTIAL (PRIMARY) HYPERTENSION 09/20/2017 PAOLA ESCAMILLA MD Ot Z79 .4 INTERMEDIATE (CURRENT) USE OF INSULIN 09/24/2017 PAOLA ESCAMILLA MD, Ot E11.36 TYPE 2 DIABETES MELLITUS WITH DIABETIC C 09/24/2017 PAOLA ESCAMILLA MD Ot I10 ESSENTIAL (PRIMARY) HYPERTENSION 09/24/2017 PAOAL ESCAMILLA MD Ot Z79 .4 REGULATOR PIN INSERTER (CURRENT) USE OF INSULIN 10/11/2017 PAOLA ESCAMILLA MD, Ot E11.36 TYPE 2 DIABETES MELLITUS WITH DIABETIC C 10/11/2017 PAOLA ESCAMILLA MD, Ot I10 ESSENTIAL (PRIMARY) HYPERTENSION 10/11/2017 PAOLA ESCAMILLA MD Ot Z79 .4 REGULATOR PIN INSERTER (CURRENT) USE OF INSULIN 10/11/2017 PAOLA ESCAMILLA MD, Ot Z87.891 PERSONAL HISTORY OF NICOTINE DEPENDENCE 11/30/2017 Ot 781.2 ABNO RMALITY OF GAIT 11/30/2017 [place] GALVAN APRN Ot 729.81 SWELLING OF LIMB 11/30/2017 ANLIKER MD, PAOLA L Ot H25.11 AGE-RELATED NUCLEAR CATARACT, RIGHT EYE 11/30/2017 ANDI REYES, PAOLA Rasmussen Ot Z01.818 ENCOUNTER FOR OTHER PREPROCEDURAL EXAMIN 11/30/2017 Ot Z01.818 EN COUNTER FOR OTHER PREPROCEDURAL EXAMIN 10/24/2018 LENORE REYES, SREEKANTH Pisano Ot D64. 9 ANEMIA, UNSPECIFIED 10/24/2018 LENORE REYES, SREEKANTH Pisano Ot E11. 40 TYPE 2 DIABETES MELLITUS WITH DIABETIC N 10/24/2018 LENORE REYES, SREEKANTH Pisano Ot E78. 00 PURE HYPERCHOLESTEROLEMIA, UNSPECIFIED 10/24/2018 LENORE REYES, SREEKANTH Pisano Ot F32. 9 MAJOR DEPRESSIVE DISORDER, SINGLE EPISOD 10/24/2018 LENORE REYES, SREEKANTH Pisano Ot F41. 9 ANXIETY DISORDER, UNSPECIFIED 10/24/2018 SREEKANTH GROVER MD Ot G47. 9 SLEEP DISORDER, UNSPECIFIED 10/24/2018 LENORE REYES, SREEKANTH Pisano Ot I10 ESSENTIAL (PRIMARY) HYPERTENSION 10/24/2018 LENORE REYES, SREEKANTH Pisano Ot M54. 9 DORSALGIA, UNSPECIFIED 10/24/2018 SREEKANTH GROVER MD Ot N17. 9 ACUTE KIDNEY FAILURE, UNSPECIFIED 10/24/2018 LENORE REYES, SREEKANTH Pisano Ot N39. 0 URINARY TRACT INFECTION, SITE NOT SPECIF 10/24/2018 LENORE REYES, SREEKANTH Pisano Ot R19. 7 DIARRHEA, UNSPECIFIED 10/24/2018 SREEKANTH GROVER MD Ot R26. 2 DIFFICULTY IN WALKING, NOT ELSEWHERE CLA 10/24/2018 LENORE REYES, SREEKANTH Pisano Ot R29. 6 REPEATED FALLS 10/24/2018 SREEKANTH GROVER MD Ot R41. 0 DISORIENTATION, UNSPECIFIED 10/24/2018 SREEKANTH GROVER MD Ot R42 DIZZINESS AND GIDDINESS 10/24/2018 SREEKANTH GROVER MD Ot R47. 81 SLURRED SPEECH 10/24/2018 SREEKANTH GROVER MD Ot R53. 1 WEAKNESS 10/24/2018 LENORE REYES, SREEKANTH Pisano Ot Z66 DO NOT RESUSCITATE 10/24/2018 SREEKANTH GROVER MD Ot Z79. 4 INTERMEDIATE (CURRENT) USE OF INSULIN 10/24/2018 SREEKANTH GROVER MD Ot Z87.891 PERSONAL HISTORY OF NICOTINE DEPENDENCE 10/24/2018 SREEKANTH GROVER MD Ot D64. 9 ANEMIA, UNSPECIFIED 10/24/2018 SREEKANTH GROVER MD Ot E11. 40 TYPE 2 DIABETES MELLITUS WITH DIABETIC N 10/24/2018 LENORE REYES, SREEKANTH Pisano Ot E78. 00 PURE HYPERCHOLESTEROLEMIA, UNSPECIFIED 10/24/2018 SREEKANTH GROVER MD Ot F32. 9 MAJOR DEPRESSIVE DISORDER, SINGLE EPISOD 10/24/2018 SREEKANTH GROVER MD Ot F41. 9 ANXIETY DISORDER, UNSPECIFIED 10/24/2018 SREEKANTH GROVER MD Ot G47. 9 SLEEP DISORDER, UNSPECIFIED 10/24/2018 SREEKANTH GROVER MD Ot I10 ESSENTIAL (PRIMARY) HYPERTENSION 10/24/2018 LENORE REYES, SREEKANTH Pisano Ot M54. 9 DORSALGIA, UNSPECIFIED 10/24/2018 SREEKANTH GROVER MD Ot N17. 9 ACUTE KIDNEY FAILURE, UNSPECIFIED 10/24/2018 SREEKANTH GROVER MD Ot N39. 0 URINARY TRACT INFECTION, SITE NOT SPECIF 10/24/2018 SREEKANTH GROVER MD Ot R19. 7 DIARRHEA, UNSPECIFIED 10/24/2018 SREEKANTH GROVER MD Ot R26. 2 DIFFICULTY IN WALKING, NOT ELSEWHERE CLA 10/24/2018 SREEKANTH GROVER MD Ot R29. 6 REPEATED FALLS 10/24/2018 SREEKANTH GROVER MD Ot R41. 0 DISORIENTATION, UNSPECIFIED 10/24/2018 SREEKANTH GROVER MD Ot R42 DIZZINESS AND GIDDINESS 10/24/2018 SREEKANTH GROVER MD Ot R47. 81 SLURRED SPEECH 10/24/2018 SREEKANTH GROVER MD Ot R53. 1 WEAKNESS 10/24/2018 SREEKANTH GROVER MD Ot Z66 DO NOT RESUSCITATE 10/24/2018 SREEKANTH GROVER MD Ot Z79. 4 INTERMEDIATE (CURRENT) USE OF INSULIN 10/24/2018 LENORE REYES, SREEKANTH Pisano Ot Z87.891 PERSONAL HISTORY OF NICOTINE DEPENDENCE 10/24/2018 LENORE REYES, SREEKANTH Pisano Ot D64. 9 ANEMIA, UNSPECIFIED 10/24/2018 SREEKANTH GROVER MD Ot E11. 40 TYPE 2 DIABETES MELLITUS WITH DIABETIC N 10/24/2018 LENORE REYES, SREEKANTH Pisano Ot E78. 00 PURE HYPERCHOLESTEROLEMIA, UNSPECIFIED 10/24/2018 SREEKANTH GROVER MD Ot F32. 9 MAJOR DEPRESSIVE DISORDER, SINGLE EPISOD 10/24/2018 SREEKANTH GROVER MD Ot F41. 9 ANXIETY DISORDER, UNSPECIFIED 10/24/2018 SREEKANTH GROVER MD Ot G47. 9 SLEEP DISORDER, UNSPECIFIED 10/24/2018 SREEKANTH GROVER MD Ot I10 ESSENTIAL (PRIMARY) HYPERTENSION 10/24/2018 LENORE REYES, SREEKANTH Pisano Ot M54. 9 DORSALGIA, UNSPECIFIED 10/24/2018 SREEKANTH GROVER MD Ot N17. 9 ACUTE KIDNEY FAILURE, UNSPECIFIED 10/24/2018 SREEKANTH GROVER MD Ot N39. 0 URINARY TRACT INFECTION, SITE NOT SPECIF 10/24/2018 SREEKANTH GROVER MD Ot R19. 7 DIARRHEA, UNSPECIFIED 10/24/2018 SREEKANTH GROVER MD Ot R26. 2 DIFFICULTY IN WALKING, NOT ELSEWHERE CLA 10/24/2018 SREEKANTH GROVER MD Ot R29. 6 REPEATED FALLS 10/24/2018 SREEKANTH GROVER MD Ot R41. 0 DISORIENTATION, UNSPECIFIED 10/24/2018 SREEKANTH GROVER MD Ot R42 DIZZINESS AND GIDDINESS 10/24/2018 SREEKANTH GROVER MD Ot R47. 81 SLURRED SPEECH 10/24/2018 SREEKANTH GROVER MD Ot R53. 1 WEAKNESS 10/24/2018 SREEKANTH GROVER MD Ot Z66 DO NOT RESUSCITATE 10/24/2018 SREEKANTH GROVER MD Ot Z79. 4 INTERMEDIATE (CURRENT) USE OF INSULIN 10/24/2018 SREEKANTH GROVER MD Ot Z87.891 PERSONAL HISTORY OF NICOTINE DEPENDENCE 10/26/2018 SREEKANTH GROVER MD Ot B96. 1 KLEBSIELLA PNEUMONIAE THE CAUSE OF DI 10/26/2018 SREEKANTH GROVER MD Ot D50. 9 IRON DEFICIENCY ANEMIA, UNSPECIFIED 10/26/2018 SREEKANTH GROVER MD Ot E11. 40 TYPE 2 DIABETES MELLITUS WITH DIABETIC N 10/26/2018 SREEKANTH GROVER MD Ot E78. 00 PURE HYPERCHOLESTEROLEMIA, UNSPECIFIED 10/26/2018 SREEKANTH GROVER MD Ot E86. 0 DEHYDRATION 10/26/2018 SREEKANTH GROVER MD Ot F32. 9 MAJOR DEPRESSIVE DISORDER, SINGLE EPISOD 10/26/2018 SREEKANTH GROVER MD Ot F41. 9 ANXIETY DISORDER, UNSPECIFIED 10/26/2018 SREEKANTH GROVER MD Ot G47. 9 SLEEP DISORDER, UNSPECIFIED 10/26/2018 SREEKANTH GROVER MD Ot I10 ESSENTIAL (PRIMARY) HYPERTENSION 10/26/2018 SREEKANTH GROVER MD Ot M54. 9 DORSALGIA, UNSPECIFIED 10/26/2018 SREEKANTH GROVER MD Ot N17. 9 ACUTE KIDNEY FAILURE, UNSPECIFIED 10/26/2018 SREEKANTH GROVER MD Ot N39. 0 URINARY TRACT INFECTION, SITE NOT SPECIF 10/26/2018 SREEKANTH GROVER MD Ot R19. 7 DIARRHEA, UNSPECIFIED 10/26/2018 SREEKANTH GROVER MD Ot R26. 2 DIFFICULTY IN WALKING, NOT ELSEWHERE CLA 10/26/2018 SREEKANTH GROVER MD Ot R41. 0 DISORIENTATION, UNSPECIFIED 10/26/2018 SREEKANTH GROVER MD Ot R42 DIZZINESS AND GIDDINESS 10/26/2018 SREEKANTH GROVER MD Ot R47. 81 SLURRED SPEECH 10/26/2018 SREEKANTH GROVER MD Ot R53. 1 WEAKNESS 10/26/2018 SREEKANTH GROVER MD Ot Z66 DO NOT RESUSCITATE 10/26/2018 SREEKANTH GROVER MD Ot Z79. 4 INTERMEDIATE (CURRENT) USE OF INSULIN 10/26/2018 SREEKANTH GROVER MD Ot Z87.891 PERSONAL HISTORY OF NICOTINE DEPENDENCE 10/28/2018 DAISY NOVA MD Ot E11. 40 TYPE 2 DIABETES MELLITUS WITH DIABETIC N 10/28/2018 DAISY NOVA MD Ot E11. 65 TYPE 2 DIABETES MELLITUS WITH HYPERGLYCE 10/28/2018 DAISY NOVA MD Ot E78. 00 PURE HYPERCHOLESTEROLEMIA, UNSPECIFIED 10/28/2018 DAISY NOVA MD Ot F32. 9 MAJOR DEPRESSIVE DISORDER, SINGLE EPISOD 10/28/2018 DAISY NOVA MD Ot F41. 9 ANXIETY DISORDER, UNSPECIFIED 10/28/2018 DAISY NOVA MD Ot I10 ESSENTIAL (PRIMARY) HYPERTENSION 10/28/2018 DAISY NOVA MD Ot Z79. 4 REGULATOR PIN INSERTER (CURRENT) USE OF INSULIN 10/28/2018 DAISY NOVA MD Ot Z79. 82 INTERMEDIATE (CURRENT) USE OF ASPIRIN 10/28/2018 DAISY NOVA MD Ot Z87.891 PERSONAL HISTORY OF NICOTINE DEPENDENCE 10/28/2018 DAISY NOVA MD Ot Z98. 84 BARIATRIC SURGERY STATUS 10/28/2018 Ot 781.2 ABNO RMALITY OF GAIT 10/28/2018 HELLWIG, [place] E 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 Ot 729.81 SWELLING OF LIMB 10/28/2018 ANDI REYES, PAOLA Rasmussen Ot H25.11 AGE-RELATED NUCLEAR CATARACT, RIGHT EYE 10/28/2018 ANDI REYES, PAOLA Rasmussen Ot Z01.818 ENCOUNTER FOR OTHER PREPROCEDURAL EXAMIN 10/28/2018 Ot Z01.818 EN COUNTER FOR OTHER PREPROCEDURAL EXAMIN 10/31/2018 DAISY NOVA MD Ot E11. 40 TYPE 2 DIABETES MELLITUS WITH DIABETIC N 10/31/2018 DAISY NOVA MD Ot E11. 65 TYPE 2 DIABETES MELLITUS WITH HYPERGLYCE 10/31/2018 DAISY NOVA MD Ot E78. 00 PURE HYPERCHOLESTEROLEMIA, UNSPECIFIED 10/31/2018 DAISY NOVA MD Ot F32. 9 MAJOR DEPRESSIVE DISORDER, SINGLE EPISOD 10/31/2018 DAISY NOVA MD Ot F41. 9 ANXIETY DISORDER, UNSPECIFIED 10/31/2018 DAISY NOVA MD Ot I10 ESSENTIAL (PRIMARY) HYPERTENSION 10/31/2018 DAISY NOVA MD Ot Z79. 4 INTERMEDIATE (CURRENT) USE OF INSULIN 10/31/2018 DAISY NOVA MD Ot Z79. 82 REGULATOR PIN INSERTER (CURRENT) USE OF ASPIRIN 10/31/2018 DAISY NOVA MD Ot Z87.891 PERSONAL HISTORY OF NICOTINE DEPENDENCE 10/31/2018 DAISY NOVA MD Ot Z98. 84 BARIATRIC SURGERY STATUS 12/08/2018 RICK SAMPSON APRN Ot D64 .9 ANEMIA, UNSPECIFIED 12/08/2018 RICK SAMPSON APRN Ot E11.40 TYPE 2 DIABETES MELLITUS WITH DIABETIC N 12/08/2018 RICK SAMPSON APRN Ot E11.65 TYPE 2 DIABETES MELLITUS WITH HYPERGLYCE 12/08/2018 RICK SAMPSON APRN Ot E78.00 PURE HYPERCHOLESTEROLEMIA, UNSPECIFIED 12/08/2018 RICK SAMPSON APRN Ot F32 .9 MAJOR DEPRESSIVE DISORDER, SINGLE EPISOD 12/08/2018 RICK SAMPSON APRN Ot F41 .9 ANXIETY DISORDER, UNSPECIFIED 12/08/2018 RICK SAMPSON APRN Ot I10 ESSENTIAL (PRIMARY) HYPERTENSION 12/08/2018 RICK SAMPSON APRN Ot N39 .0 URINARY TRACT INFECTION, SITE NOT SPECIF 12/08/2018 RICK SAMPSON APRN Ot R53 .1 WEAKNESS 12/08/2018 RICK SAMPSON APRN Ot R73 .9 HYPERGLYCEMIA, UNSPECIFIED 12/08/2018 RICK SAMPSON APRN Ot Z79 .4 INTERMEDIATE (CURRENT) USE OF INSULIN 12/08/2018 RICK SAMPSON APRN Ot Z79.82 REGULATOR PIN INSERTER (CURRENT) USE OF ASPIRIN 12/08/2018 RICK SAMPSON APRN Ot Z87.891 PERSONAL HISTORY OF NICOTINE DEPENDENCE 12/12/2018 RICK SAMPSON APRN Ot D64 .9 ANEMIA, UNSPECIFIED 12/12/2018 RICK SAMPSON APRN Ot E11.40 TYPE 2 DIABETES MELLITUS WITH DIABETIC N 12/12/2018 RICK SAMPSON APRN Ot E11.65 TYPE 2 DIABETES MELLITUS WITH HYPERGLYCE 12/12/2018 RICK SAMPSON APRN Ot E78.00 PURE HYPERCHOLESTEROLEMIA, UNSPECIFIED 12/12/2018 RICK SAMPSON APRN Ot F32 .9 MAJOR DEPRESSIVE DISORDER, SINGLE EPISOD 12/12/2018 RICK SAMPSON APRN Ot F41 .9 ANXIETY DISORDER, UNSPECIFIED 12/12/2018 RICK SAMPSON APRN Ot I10 ESSENTIAL (PRIMARY) HYPERTENSION 12/12/2018 RICK SAMPSON APRN Ot N39 .0 URINARY TRACT INFECTION, SITE NOT SPECIF 12/12/2018 RICK SAMPSON APRN Ot R53 .1 WEAKNESS 12/12/2018 RICK SAMPSON APRN Ot R73 .9 HYPERGLYCEMIA, UNSPECIFIED 12/12/2018 RICK SAMPSON APRN Ot Z79 .4 INTERMEDIATE (CURRENT) USE OF INSULIN 12/12/2018 RICK SAMPSON APRN Ot Z79.82 INTERMEDIATE (CURRENT) USE OF ASPIRIN 12/12/2018 RICK SAMPSON APRN Ot Z87.891 PERSONAL HISTORY OF NICOTINE DEPENDENCE 01/09/2019 OLSON DO, NANCY L Ot D64.9 ANEMIA, UNSPECIFIED 01/09/2019 OLSON DO, NANCY L Ot E11.4 0 TYPE 2 DIABETES MELLITUS WITH DIABETIC N 01/09/2019 OLSON DO, NANCY L Ot E78.0 0 PURE HYPERCHOLESTEROLEMIA, UNSPECIFIED 01/09/2019 OLSON DO, NANCY L Ot F32.9 MAJOR DEPRESSIVE DISORDER, SINGLE EPISOD 01/09/2019 OLSON DO, NANCY L Ot F41.9 ANXIETY DISORDER, UNSPECIFIED 01/09/2019 OLSON DO, NANCY L Ot H10.1 3 ACUTE ATOPIC CONJUNCTIVITIS, BILATERAL 01/09/2019 OLSON DO, NANCY L Ot H57.8 9 OTHER SPECIFIED DISORDERS OF EYE AND ADN 01/09/2019 OLSON DO, NANCY L Ot I10 ESSENTIAL (PRIMARY) HYPERTENSION 01/09/2019 OLSON DO, NANCY L Ot Z79.4 INTERMEDIATE (CURRENT) USE OF INSULIN 01/09/2019 OLSON DO, NANCY L Ot Z79.8 2 INTERMEDIATE (CURRENT) USE OF ASPIRIN 01/13/2019 OLSON DO, NANCY L Ot D64.9 ANEMIA, UNSPECIFIED 01/13/2019 OLSON DO, NANCY L Ot E11.4 0 TYPE 2 DIABETES MELLITUS WITH DIABETIC N 01/13/2019 OLSON DO, NANCY L Ot E78.0 0 PURE HYPERCHOLESTEROLEMIA, UNSPECIFIED 01/13/2019 OLSON DO, NANCY L Ot F32.9 MAJOR DEPRESSIVE DISORDER, SINGLE EPISOD 01/13/2019 OLSON DO, NANCY L Ot F41.9 ANXIETY DISORDER, UNSPECIFIED 01/13/2019 OLSON DO, NANCY L Ot H10.1 3 ACUTE ATOPIC CONJUNCTIVITIS, BILATERAL 01/13/2019 OLSON DO, NANCY L Ot H57.8 9 OTHER SPECIFIED DISORDERS OF EYE AND ADN 01/13/2019 OLSON DO, NANCY L Ot I10 ESSENTIAL (PRIMARY) HYPERTENSION 01/13/2019 OLSON DO, NANCY L Ot Z79.4 REGULATOR PIN INSERTER (CURRENT) USE OF INSULIN 01/13/2019 OLSON DO, NANCY L Ot Z79.8 2 REGULATOR PIN INSERTER (CURRENT) USE OF ASPIRIN 01/15/2019 OLSON DO, NANCY L Ot D64.9 ANEMIA, UNSPECIFIED 01/15/2019 OLSON DO, NANCY L Ot E11.4 0 TYPE 2 DIABETES MELLITUS WITH DIABETIC N 01/15/2019 OLSON DO, NANCY L Ot E78.0 0 PURE HYPERCHOLESTEROLEMIA, UNSPECIFIED 01/15/2019 OLSON DO, NANCY L Ot F32.9 MAJOR DEPRESSIVE DISORDER, SINGLE EPISOD 01/15/2019 OLSON DO, NANCY L Ot F41.9 ANXIETY DISORDER, UNSPECIFIED 01/15/2019 OLSON DO, NANCY L Ot H10.1 3 ACUTE ATOPIC CONJUNCTIVITIS, BILATERAL 01/15/2019 ATUL OLSON DOVOR L Ot H57.8 9 OTHER SPECIFIED DISORDERS OF EYE AND ADN 01/15/2019 OLSON DO, NANCY L Ot I10 ESSENTIAL (PRIMARY) HYPERTENSION 01/15/2019 OLSON , NANCY L Ot Z79.4 INTERMEDIATE (CURRENT) USE OF INSULIN 01/15/2019 OLSON DO NANCY L Ot Z79.8 2 REGULATOR PIN INSERTER (CURRENT) USE OF ASPIRIN 04/10/2019 MOLINACATRACHITA OBRIEN CFNP Ot R29.6 REPEATED FALLS 04/10/2019 MOLINACATRACHITA OBRIEN CFNP Ot R29.898 OTH SYMPTOMS AND SIGNS INVOLVING THE MUS 04/28/2019 MOLINACATRACHITA OBRIEN CFNP Ot R29.6 REPEATED FALLS 04/28/2019 MOLINACATRACHITA OBRIEN CFNP Ot R29.898 OTH SYMPTOMS AND SIGNS INVOLVING THE MUS Procedures Code Description Performed By Per barbie On [facility] CYST-ASP/INJ 12/25/2011 General S Jake Baez 12/25/2011 32649 A1C (IN-HOUSE) 12/25/2011 61846 URIN E DRUG SCREEN (IN-HOUSE) 12/25/2011 90458 A1C (IN-HOUSE) 04/01/2012 37102 URIN E DRUG SCREEN (IN-HOUSE) 04/01/2012 24876 MRI SPINE (LUMBAR) W/O CONTRAST 04/01/2012 97568 THER APUTIC INJ SQ/IM 05/16/2012 J1885 NEFTALY DOL INJ 05/16/2012 J2930 SOLU MEDROL INJ 05/16/2012 Physical P hysical Therapy, Via [facility] 05/29/2012 33819 ROUT INE VENIPUNCTURE 09/02/2012 08686 MICR O ALBUMIN-IN HOUSE 09/02/2012 38652 A1C (IN-HOUSE) 09/02/2012 98922 GLUC OSE FINGER STICK 09/02/2012 51063 CMP 09/02/2012 58037 LIPI D PANEL 09/02/2012 82557 MICR OALBUMIN 09/02/2012 72334 CBC 09/02/2012 74108 A1C (IN-HOUSE) 12/31/2012 02164 ROUT INE VENIPUNCTURE 02/19/2013 59293 HEMO GLOBIN (IN-HOUSE) 02/19/2013 ANEMIAANA ANEMIA ANALYZER 02/19/2013 IRGROUP IR ON GROUP (Iron,TIBC, Ferritin) 02/19/2013 02298 IRON SERUM 02/19/2013 81025 IRON BNDNG CAP 02/19/2013 87583 FERRITIN 02/19/2013 [id number] IM MATURE PLATELET FRACTION (RESULT ONLY) 02/20/2013 81175 CBC 02/20/2013 90709 RETI CULOCYTE COUNT 02/20/2013 [id number] HE MATOLOGY OTHER REPORT 02/20/2013 37520 XRAY TIBULA/FIBULA RIGHT 03/18/2013 61400 A1C (IN-HOUSE) 06/18/2013 75142 HEMO GLOBIN (IN-HOUSE) 06/18/2013 86114 MICR O ALBUMIN-IN HOUSE 09/17/2013 36056 A1C (IN-HOUSE) 09/17/2013 76766 A1C (IN-HOUSE) 12/10/2013 10789 ROUT INE VENIPUNCTURE 03/15/2014 98204 A1C (IN-HOUSE) 03/15/2014 55129 LIPI D PANEL 03/15/2014 96896 CBC 03/15/2014 [id number] GF R CALC (RESULT ONLY) 03/15/2014 60189 CMP 03/15/2014 10951 TSH 03/15/2014 17474 A1C (IN-HOUSE) 06/14/2014 68465 US V ENOUS DOPPLER (DVT EVAL) 06/14/2014 Nicolas Palafox 06/14/2014 Results Test Result Range Complete urinalysis with reflex to cultu re - 10/30/15 18:15 Urine color determination YELLOW NRG Urine clarity determination CLEAR NR G Urine pH measurement by test strip 6 5-9 Specific gravity of urine by test strip 1.020 1.016-1.022 Urine protein assay by test strip, semi-quantitative 4+ NEGATIVE Urine glucose detection by automated test strip NE GATIVE NEGATIVE Erythrocytes detection in urine sediment by light micr oscopy 5+ NEGATIVE Urine ketones detection by automated test strip NE GATIVE NEGATIVE Urine nitrite detection by test strip NEGATIVE NEGATIVE Urine total bilirubin detection by test strip NEGA TIVE NEGATIVE Urine urobilinogen measurement by automated test strip (mass/volume) NORMAL NORMAL Urine leukocyte esterase detection by dipstick 3+ NEGATIVE Automated urine sediment erythrocyte cou nt by microscopy (number/high power field) > [HPF] NRG Automated urine sediment leukocyte count by microscopy (number/high power field) TNTC NRG Bacteria detection in urine sediment by light microsco py LARGE NRG Crystals detection in urine sediment by light microsco py NONE NRG Casts detection in urine sediment by light microscopy NONE NRG Mucus detection in urine sediment by light microscopy NEGATIVE NRG Complete urinalysis with reflex to culture YES NRG Bacterial urine culture - 10/30/15 18:15 Bacterial urine culture [id number] NRG COLONY COUNT >100,000/ML NRG FTX;REPORTABLE SENSITIVITY REPORTED 11/01/15 7:35 NRG Bacterial susceptibility panel - 6 18:15 Gentamicin susceptibility test by minimum inhibitory c oncentration <= NRG Trimethoprim/sulfamethoxazole susceptibi lity test by minimum inhibitoryconcentration <= NRG Tobramycin susceptibility test by minimum inhibitory c oncentration <= NRG Cefazolin susceptibility test by minimum inhibitory co ncentration >= NRG Piperacillin/tazobactam susceptibility t est by minimum inhibitory concentration <= NRG Ciprofloxacin susceptibility test by minimum inhibitor y concentration <= NRG Meropenem susceptibility test by minimum inhibitory co ncentration <= NRG Nitrofurantoin susceptibility test by mi nimum inhibitory concentration 64 NRG Aztreonam susceptibility test by minimum inhibitory co ncentration <= NRG TSH - 12/31/16 08:35 TSH 1.84 mIU/L 0.40-4.50 Capillary blood glucose measurement by g lucometer (mass/volume) - 05/16/17 12:36 Capillary blood glucose measurement by glucometer (mas s/volume) 35 mg/dL 70-110 Complete blood count (CBC) with automate d white blood cell (WBC) differential - 05/16/17 12:37 Blood leukocytes automated count (number/volume) 9.8 10*3/uL 4.3-11.0 Blood erythrocytes automated count (number/volume) 4.54 10*6/uL 4.35-5.85 Venous blood hemoglobin measurement (mass/volume) 12.8 g/dL 11.5-16.0 Blood hematocrit (volume fraction) 39 % 35-52 Automated erythrocyte mean corpuscular volume 86 [ foz_us] 80-99 Automated erythrocyte mean corpuscular h emoglobin (mass per erythrocyte) 28 pg 25-34 Automated erythrocyte mean corpuscular h emoglobin concentration measurement (mass/volume) 33 g/dL 32-36 Automated erythrocyte distribution width ratio 14. 8 % 10.0- 14.5 Automated blood platelet count (count/volume) 284 10*3/uL [...] 10*3 1.0-4.0 Blood monocytes automated count (number/volume) 0. 6 10*3 0.0-1.0 Automated eosinophil count 0.2 10*3/uL 0 .0-0.3 Automated blood basophil count (count/volume) 0.0 10*3/uL 0.0-0.1 Comprehensive metabolic panel - 05/16/17 12:37 Serum or plasma sodium measurement (moles/volume) 139 mmol/L 135-145 Serum or plasma potassium measurement (moles/volume) 4.0 mmol/L 3.6-5.0 Serum or plasma chloride measurement (moles/volume) 103 mmol/L 98-107 Carbon dioxide 29 mmol/L 21-32 Serum or plasma anion gap determination (moles/volume) 7 mmol/L 5-14 Serum or plasma urea nitrogen measurement (mass/volume ) 14 mg/dL 7-18 Serum or plasma creatinine measurement (mass/volume) 0.81 mg/dL 0.60-1.30 Serum or plasma urea nitrogen/creatinine mass ratio 17 NRG Serum or plasma creatinine measurement w ith calculation of estimated glomerular filtration rate > NRG Serum or plasma glucose measurement (mass/volume) 29 mg/dL 70-105 Serum or plasma calcium measurement (mass/volume) 10.1 mg/dL 8.5-10.1 Serum or plasma total bilirubin measurement (mass/volu me) 0.3 mg/dL 0.1-1.0 Serum or plasma alkaline phosphatase karson surement (enzymatic activity/volume) 57 U/L 40-136 Serum or plasma aspartate aminotransfera se measurement (enzymatic activity/volume) 55 U/L 5-34 Serum or plasma alanine aminotransferase measurement (enzymatic activity/volume) 52 U/L 0-55 Serum or plasma protein measurement (mass/volume) 7.3 g/dL 6.4-8.2 Serum or plasma albumin measurement (mass/volume) 4.3 g/dL 3.2-4.5 Magnesium - 05/16/17 12:37 Magnesium 1.6 mg/dL 1.8-2.4 Capillary blood glucose measurement by g lucometer (mass/volume) - 05/16/17 13:41 Capillary blood glucose measurement by glucometer (mas s/volume) 95 mg/dL 70-110 Complete urinalysis with reflex to cultu re - 05/16/17 14:08 Urine color determination YELLOW NRG Urine clarity determination SLIGHTLY CLOUDY NRG Urine pH measurement by test strip 5 5-9 Specific gravity of urine by test strip 1.020 1.016-1.022 Urine protein assay by test strip, semi-quantitative 1+ NEGATIVE Urine glucose detection by automated test strip 1+ NEGATIVE Erythrocytes detection in urine sediment by light micr oscopy 3+ NEGATIVE Urine ketones detection by automated test strip NE GATIVE NEGATIVE Urine nitrite detection by test strip POSITIVE NEGATIVE Urine total bilirubin detection by test strip NEGA TIVE NEGATIVE Urine urobilinogen measurement by automated test strip (mass/volume) NORMAL NORMAL Urine leukocyte esterase detection by dipstick 3+ NEGATIVE Automated urine sediment erythrocyte cou nt by microscopy (number/high power field) NONE NRG Automated urine sediment leukocyte count by microscopy (number/high power field) > [HPF] NRG Bacteria detection in urine sediment by light microsco py FEW NRG Squamous epithelial cells detection in u rine sediment by light microscopy 5-10 NRG Crystals detection in urine sediment by light microsco py NONE NRG Casts detection in urine sediment by light microscopy NONE NRG Mucus detection in urine sediment by light microscopy NEGATIVE NRG Complete urinalysis with reflex to culture YES NRG Urine drug screening test - 05/16/17 14: 08 Urine phencyclidine detection by screening method NEGATIVE NEGATIVE Urine benzodiazepines detection by screening method NEGATIVE NEGATIVE Urine cocaine detection NEGATIVE NEGATI VE Urine amphetamines detection by screening method N EGATIVE NEGATIVE Urine methamphetamine detection by screening method NEGATIVE NEGATIVE Urine cannabinoids detection by screening method N EGATIVE NEGATIVE Urine opiates detection by screening method NEGATI VE NEGATIVE Urine barbiturates detection NEGATIVE N EGATIVE Screening urine tricyclic antidepressants detection POSITIVE NEGATIVE Urine methadone detection by screening method NEGA TIVE NEGATIVE Urine oxycodone detection NEGATIVE NEGA TIVE Urine propoxyphene detection NEGATIVE N EGATIVE Bacterial urine culture - 05/16/17 14:08 Bacterial urine culture [id number] NRG COLONY COUNT 10,000/ML - 100,000/ML NRG FTX;REPORTABLE SENSITIVITY NOT USUALLY PERFORMED F OR NRG FREE TEXT ENTRY 2 THIS ORGANISM. NR Bacterial susceptibility panel - 8 14:08 Gentamicin susceptibility test by minimum inhibitory c oncentration <= NRG Trimethoprim/sulfamethoxazole susceptibi lity test by minimum inhibitoryconcentration S NRG Ampicillin susceptibility test by minimum inhibitory c oncentration <= NRG Tobramycin susceptibility test by minimum inhibitory c oncentration <= NRG Cefazolin susceptibility test by minimum inhibitory co ncentration <= NRG Ceftriaxone susceptibility test by minimum inhibitory concentration <= NRG Ampicillin/sulbactam susceptibility test by minimum inhibitory concentration <= NRG Piperacillin/tazobactam susceptibility t est by minimum inhibitory concentration S NRG Ciprofloxacin susceptibility test by minimum inhibitor y concentration <= NRG Meropenem susceptibility test by minimum inhibitory co ncentration <= NRG Nitrofurantoin susceptibility test by mi nimum inhibitory concentration <= NRG Aztreonam susceptibility test by minimum inhibitory co ncentration <= NRG Extended spectrum beta lactamase (ESBL) producing bacteria susceptibility test by minimum inhibitory concentration - NRG Complete blood count (CBC) with automate d white blood cell (WBC) differential - 06/03/17 09:15 Blood leukocytes automated count (number/volume) 10.5 10*3/uL 4.3-11.0 Blood erythrocytes automated count (number/volume) 4.93 10*6/uL 4.35-5.85 Venous blood hemoglobin measurement (mass/volume) 13.9 g/dL 11.5-16.0 Blood hematocrit (volume fraction) 42 % 35-52 Automated erythrocyte mean corpuscular volume 85 [ foz_us] 80-99 Automated erythrocyte mean corpuscular h emoglobin (mass per erythrocyte) 28 pg 25-34 Automated erythrocyte mean corpuscular h emoglobin concentration measurement (mass/volume) 33 g/dL 32-36 Automated erythrocyte distribution width ratio 14. 9 % 10.0- 14.5 Automated blood platelet count (count/volume) 310 10*3/uL [...] 10*3 1.0-4.0 Blood monocytes automated count (number/volume) 0. 4 10*3 0.0-1.0 Automated eosinophil count 0.1 10*3/uL 0 .0-0.3 Automated blood basophil count (count/volume) 0.0 10*3/uL 0.0-0.1 Capillary blood glucose measurement by g lucometer (mass/volume) - 06/03/17 09:15 Capillary blood glucose measurement by glucometer (mas s/volume) 60 mg/dL 70-110 Comprehensive metabolic panel - 06/03/17 09:15 Serum or plasma sodium measurement (moles/volume) 137 mmol/L 135-145 Serum or plasma potassium measurement (moles/volume) 3.9 mmol/L 3.6-5.0 Serum or plasma chloride measurement (moles/volume) 102 mmol/L 98-107 Carbon dioxide 27 mmol/L 21-32 Serum or plasma anion gap determination (moles/volume) 8 mmol/L 5-14 Serum or plasma urea nitrogen measurement (mass/volume ) 8 mg/dL 7-18 Serum or plasma creatinine measurement (mass/volume) 0.75 mg/dL 0.60-1.30 Serum or plasma urea nitrogen/creatinine mass ratio 11 NRG Serum or plasma creatinine measurement w ith calculation of estimated glomerular filtration rate > NRG Serum or plasma glucose measurement (mass/volume) 63 mg/dL 70-105 Serum or plasma calcium measurement (mass/volume) 10.2 mg/dL 8.5-10.1 Serum or plasma total bilirubin measurement (mass/volu me) 0.5 mg/dL 0.1-1.0 Serum or plasma alkaline phosphatase karson surement (enzymatic activity/volume) 62 U/L 40-136 Serum or plasma aspartate aminotransfera se measurement (enzymatic activity/volume) 48 U/L 5-34 Serum or plasma alanine aminotransferase measurement (enzymatic activity/volume) 55 U/L 0-55 Serum or plasma protein measurement (mass/volume) 8.2 g/dL 6.4-8.2 Serum or plasma albumin measurement (mass/volume) 4.9 g/dL 3.2-4.5 Complete urinalysis with reflex to cultu re - 06/03/17 09:30 Urine color determination YELLOW NRG Urine clarity determination CLEAR NR G Urine pH measurement by test strip 5 5-9 Specific gravity of urine by test strip 1.015 1.016-1.022 Urine protein assay by test strip, semi-quantitative NEGATIVE NEGATIVE Urine glucose detection by automated test strip NE GATIVE NEGATIVE Erythrocytes detection in urine sediment by light micr oscopy 1+ NEGATIVE Urine ketones detection by automated test strip NE GATIVE NEGATIVE Urine nitrite detection by test strip NEGATIVE NEGATIVE Urine total bilirubin detection by test strip NEGA TIVE NEGATIVE Urine urobilinogen measurement by automated test strip (mass/volume) NORMAL NORMAL Urine leukocyte esterase detection by dipstick 2+ NEGATIVE Automated urine sediment erythrocyte cou nt by microscopy (number/high power field) [HPF] NRG Automated urine sediment leukocyte count by microscopy (number/high power field) [HPF] NRG Bacteria detection in urine sediment by light microsco py NEGATIVE NRG Squamous epithelial cells detection in u rine sediment by light microscopy 2-5 NRG Crystals detection in urine sediment by light microsco py NONE NRG Casts detection in urine sediment by light microscopy NONE NRG Mucus detection in urine sediment by light microscopy NEGATIVE NRG Complete urinalysis with reflex to culture NO NRG Capillary blood glucose measurement by g lucometer (mass/volume) - 06/03/17 10:22 Capillary blood glucose measurement by glucometer (mas s/volume) 86 mg/dL 70-110 CULTURE, URINE - 06/06/17 09:32 CULTURE, URINE, ROUTINE SEE NOTE NRG Capillary blood glucose measurement by g lucometer (mass/volume) - 09/20/17 06:55 Capillary blood glucose measurement by glucometer (mas s/volume) 155 mg/dL 70-110 Capillary blood glucose measurement by g lucometer (mass/volume) - 10/11/17 06:22 Capillary blood glucose measurement by glucometer (mas s/volume) 90 mg/dL 70-110 PDM - 09 PANEL (PROFILE 1) - 10/16/17 11 :25 Prescribed Drug 1 Hydrocodone NRG Creatinine 82.4 mg/dL > or = 20.0 pH 7.78 4.5 - 9.0 Oxidant NEGATIVE mcg/mL <200 Amphetamines NEGATIVE ng/mL <500 medMATCH Amphetamines CONSISTENT NRG Benzodiazepines NEGATIVE ng/mL <100 medMATCH Benzodiazepines CONSISTENT NRG Marijuana Metabolite NEGATIVE ng/mL <20 medMATCH Marijuana Metab CONSISTENT NRG Cocaine Metabolite NEGATIVE ng/mL <150 medMATCH Cocaine Metab CONSISTENT NRG Opiates NEGATIVE ng/mL <100 medMATCH Opiates INCONSISTENT NRG Oxycodone NEGATIVE ng/mL <100 medMATCH Oxycodone CONSISTENT NRG COMMENT NRG Prescribed Drug 2 Gabapentin NRG Prescribed Drug 3 Amitriptyline NRG Barbiturates NEGATIVE ng/mL <300 medMATCH Barbiturates CONSISTENT NRG Methadone Metabolite NEGATIVE ng/mL <100 medMATCH Methadone Metab CONSISTENT NRG Phencyclidine NEGATIVE ng/mL <25 medMATCH Phencyclidine CONSISTENT NRG Magnesium - 10/24/18 10:06 Magnesium 1.8 mg/dL 1.6-2.4 Capillary blood glucose measurement by g lucometer (mass/volume) - 10/24/18 10:07 Capillary blood glucose measurement by glucometer (mas s/volume) 76 mg/dL 70-110 Complete blood count (CBC) with automate d white blood cell (WBC) differential - 10/24/18 10:07 Blood leukocytes automated count (number/volume) 10.4 10*3/uL 4.3-11.0 Blood erythrocytes automated count (number/volume) 4.11 10*6/uL 4.35-5.85 Venous blood hemoglobin measurement (mass/volume) 10.0 g/dL 11.5-16.0 Blood hematocrit (volume fraction) 32 % 35-52 Automated erythrocyte mean corpuscular volume 78 [ foz_us] 80-99 Automated erythrocyte mean corpuscular h emoglobin (mass per erythrocyte) 24 pg 25-34 Automated erythrocyte mean corpuscular h emoglobin concentration measurement (mass/volume) 31 g/dL 32-36 Automated erythrocyte distribution width ratio 17. 3 % 10.0- 14.5 Automated blood platelet count (count/volume) 327 10*3/uL 130-400 Automated blood platelet mean volume measurement 9.7 [foz_us] 7.4-10.4 Automated blood neutrophils/100 leukocytes 78 % 42-75 Automated blood lymphocytes/100 leukocytes 13 % 12-44 Blood monocytes/100 leukocytes 6 % 0-12 Automated blood eosinophils/100 leukocytes 3 % 0-10 Automated blood basophils/100 leukocytes 0 % 0-10 Blood neutrophils automated count (number/volume) 8.1 10*3 1.8-7.8 Blood lymphocytes automated count (number/volume) 1.3 10*3 1.0-4.0 Blood monocytes automated count (number/volume) 0. 6 10*3 0.0-1.0 Automated eosinophil count 0.3 10*3/uL 0 .0-0.3 Automated blood basophil count (count/volume) 0.0 10*3/uL 0.0-0.1 Comprehensive metabolic panel - 10/24/18 10:07 Serum or plasma sodium measurement (moles/volume) 139 mmol/L 135-145 Serum or plasma potassium measurement (moles/volume) 4.5 mmol/L 3.6-5.0 Serum or plasma chloride measurement (moles/volume) 103 mmol/L 98-107 Carbon dioxide 23 mmol/L 21-32 Serum or plasma anion gap determination (moles/volume) 13 mmol/L 5-14 Serum or plasma urea nitrogen measurement (mass/volume ) 35 mg/dL 7-18 Serum or plasma creatinine measurement (mass/volume) 3.02 mg/dL 0.60-1.30 Serum or plasma urea nitrogen/creatinine mass ratio 12 NRG Serum or plasma creatinine measurement w ith calculation of estimated glomerular filtration rate 16 NRG Serum or plasma glucose measurement (mass/volume) 69 mg/dL 70-105 Serum or plasma calcium measurement (mass/volume) 9.5 mg/dL 8.5-10.1 Serum or plasma total bilirubin measurement (mass/volu me) 0.3 mg/dL 0.1-1.0 Serum or plasma alkaline phosphatase karson surement (enzymatic activity/volume) 84 U/L 40-136 Serum or plasma aspartate aminotransfera se measurement (enzymatic activity/volume) 19 U/L 5-34 Serum or plasma alanine aminotransferase measurement (enzymatic activity/volume) 15 U/L 0-55 Serum or plasma protein measurement (mass/volume) 7.9 g/dL 6.4-8.2 Serum or plasma albumin measurement (mass/volume) 4.3 g/dL 3.2-4.5 CALCIUM CORRECTED 9.3 mg/dL 8.5-10.1 Complete urinalysis with reflex to cultu re - 10/24/18 10:15 Urine color determination YELLOW NRG Urine clarity determination VERY CLOUDY NRG Urine pH measurement by test strip 5 5-9 Specific gravity of urine by test strip 1.015 1.016-1.022 Urine protein assay by test strip, semi-quantitative NEGATIVE NEGATIVE Urine glucose detection by automated test strip NE GATIVE NEGATIVE Erythrocytes detection in urine sediment by light micr oscopy 4+ NEGATIVE Urine ketones detection by automated test strip NE GATIVE NEGATIVE Urine nitrite detection by test strip NEGATIVE NEGATIVE Urine total bilirubin detection by test strip NEGA TIVE NEGATIVE Urine urobilinogen measurement by automated test strip (mass/volume) NORMAL NORMAL Urine leukocyte esterase detection by dipstick 3+ NEGATIVE Automated urine sediment erythrocyte cou nt by microscopy (number/high power field) [HPF] NRG Automated urine sediment leukocyte count by microscopy (number/high power field) TNTC NRG Bacteria detection in urine sediment by light microsco py LARGE NRG Squamous epithelial cells detection in u rine sediment by light microscopy NONE NRG Crystals detection in urine sediment by light microsco py NONE NRG Casts detection in urine sediment by light microscopy NONE NRG Mucus detection in urine sediment by light microscopy NEGATIVE NRG Complete urinalysis with reflex to culture YES NRG Bacterial urine culture - 10/24/18 10:15 Bacterial urine culture [id number] NRG COLONY COUNT >100,000/ML NRG FTX;REPORTABLE SUSCEPTIBILITY REPORTED 10/27 13:30 NRG FREE TEXT ENTRY 2 ID REPORTED 10/25/18 12:05 NRG Dirithromycin susceptibility test by dis k diffusion - 10/24/18 10:15 Gentamicin susceptibility test by minimum inhibitory c oncentration <= NRG Trimethoprim/sulfamethoxazole susceptibi lity test by minimum inhibitoryconcentration <= NRG Levofloxacin susceptibility test by minimum inhibitory concentration <= NRG Ampicillin susceptibility test by minimum inhibitory c oncentration > NRG Cefazolin susceptibility test by minimum inhibitory co ncentration <= NRG Ceftriaxone susceptibility test by minimum inhibitory concentration <= NRG Ciprofloxacin susceptibility test by minimum inhibitor y concentration <= NRG Meropenem susceptibility test by minimum inhibitory co ncentration <= NRG Nitrofurantoin susceptibility test by mi nimum inhibitory concentration > NRG Amoxicillin and clavulanate potassium susc LYUBOV <= NRG Dirithromycin susceptibility test by dis k diffusion - 10/24/18 10:15 Gentamicin susceptibility test by minimum inhibitory c oncentration <= NRG Trimethoprim/sulfamethoxazole susceptibi lity test by minimum inhibitoryconcentration <= NRG Levofloxacin susceptibility test by minimum inhibitory concentration <= NRG Ampicillin susceptibility test by minimum inhibitory c oncentration R NRG Cefazolin susceptibility test by minimum inhibitory co ncentration <= NRG Ceftriaxone susceptibility test by minimum inhibitory concentration <= NRG Ciprofloxacin susceptibility test by minimum inhibitor y concentration <= NRG Meropenem susceptibility test by minimum inhibitory co ncentration <= NRG Nitrofurantoin susceptibility test by mi nimum inhibitory concentration 32 NRG Amoxicillin and clavulanate potassium susc LYUBOV <= NRG Capillary blood glucose measurement by g lucometer (mass/volume) - 10/24/18 17:03 Capillary blood glucose measurement by glucometer (mas s/volume) 52 mg/dL 70-110 Capillary blood glucose measurement by g lucometer (mass/volume) - 10/24/18 21:19 Capillary blood glucose measurement by glucometer (mas s/volume) 121 mg/dL 70-110 Capillary blood glucose measurement by g lucometer (mass/volume) - 10/25/18 05:44 Capillary blood glucose measurement by glucometer (mas s/volume) 138 mg/dL 70-110 Capillary blood glucose measurement by g lucometer (mass/volume) - 10/25/18 09:17 Capillary blood glucose measurement by glucometer (mas s/volume) 362 mg/dL 70-110 Capillary blood glucose measurement by g lucometer (mass/volume) - 10/25/18 10:49 Capillary blood glucose measurement by glucometer (mas s/volume) 348 mg/dL 70-110 OCCULT BLOOD STOOL - 10/25/18 15:50 Stool gastrointestinal hemoglobin detection NEGATI VE NEGATIVE Capillary blood glucose measurement by g lucometer (mass/volume) - 10/25/18 16:05 Capillary blood glucose measurement by glucometer (mas s/volume) 239 mg/dL 70-110 Capillary blood glucose measurement by g lucometer (mass/volume) - 10/25/18 20:28 Capillary blood glucose measurement by glucometer (mas s/volume) 402 mg/dL 70-110 Whole blood basic metabolic panel - 10/03 07/20 04:55 Serum or plasma sodium measurement (moles/volume) 138 mmol/L 135-145 Serum or plasma potassium measurement (moles/volume) 4.2 mmol/L 3.6-5.0 Serum or plasma chloride measurement (moles/volume) 109 mmol/L 98-107 Carbon dioxide 17 mmol/L 21-32 Serum or plasma anion gap determination (moles/volume) 12 mmol/L 5-14 Serum or plasma urea nitrogen measurement (mass/volume ) 29 mg/dL 7-18 Serum or plasma creatinine measurement (mass/volume) 1.49 mg/dL 0.60-1.30 Serum or plasma urea nitrogen/creatinine mass ratio 19 NRG Serum or plasma creatinine measurement w ith calculation of estimated glomerular filtration rate 35 NRG Serum or plasma glucose measurement (mass/volume) 177 mg/dL 70-105 Serum or plasma calcium measurement (mass/volume) 8.4 mg/dL 8.5-10.1 Serum or plasma creatine kinase measurem ent (enzymatic activity/volume) - 10/26/18 04:55 Serum or plasma creatine kinase measurem ent (enzymatic activity/volume) 116 U/L 29-168 Capillary blood glucose measurement by g lucometer (mass/volume) - 10/26/18 05:27 Capillary blood glucose measurement by glucometer (mas s/volume) 248 mg/dL 70-110 Capillary blood glucose measurement by g lucometer (mass/volume) - 10/26/18 09:32 Capillary blood glucose measurement by glucometer (mas s/volume) 217 mg/dL 70-110 Capillary blood glucose measurement by g lucometer (mass/volume) - 10/28/18 14:46 Capillary blood glucose measurement by glucometer (mas s/volume) 477 mg/dL 70-110 Complete blood count (CBC) with automate d white blood cell (WBC) differential - 10/28/18 15:08 Blood leukocytes automated count (number/volume) 8.8 10*3/uL 4.3-11.0 Blood erythrocytes automated count (number/volume) 3.81 10*6/uL 4.35-5.85 Venous blood hemoglobin measurement (mass/volume) 9.2 g/dL 11.5-16.0 Blood hematocrit (volume fraction) 29 % 35-52 Automated erythrocyte mean corpuscular volume 76 [ foz_us] 80-99 Automated erythrocyte mean corpuscular h emoglobin (mass per erythrocyte) 24 pg 25-34 Automated erythrocyte mean corpuscular h emoglobin concentration measurement (mass/volume) 32 g/dL 32-36 Automated erythrocyte distribution width ratio 16. 5 % 10.0- 14.5 Automated blood platelet count (count/volume) 286 10*3/uL 130-400 Automated blood platelet mean volume measurement 9.5 [foz_us] 7.4-10.4 Automated blood neutrophils/100 leukocytes 79 % 42-75 Automated blood lymphocytes/100 leukocytes 11 % 12-44 Blood monocytes/100 leukocytes 6 % 0-12 Automated blood eosinophils/100 leukocytes 3 % 0-10 Automated blood basophils/100 leukocytes 0 % 0-10 Blood neutrophils automated count (number/volume) 7.0 10*3 1.8-7.8 Blood lymphocytes automated count (number/volume) 1.0 10*3 1.0-4.0 Blood monocytes automated count (number/volume) 0. 5 10*3 0.0-1.0 Automated eosinophil count 0.3 10*3/uL 0 .0-0.3 Automated blood basophil count (count/volume) 0.0 10*3/uL 0.0-0.1 Comprehensive metabolic panel - 10/28/18 15:08 Serum or plasma sodium measurement (moles/volume) 131 mmol/L 135-145 Serum or plasma potassium measurement (moles/volume) 4.7 mmol/L 3.6-5.0 Serum or plasma chloride measurement (moles/volume) 99 mmol/L 98-107 Carbon dioxide 21 mmol/L 21-32 Serum or plasma anion gap determination (moles/volume) 11 mmol/L 5-14 Serum or plasma urea nitrogen measurement (mass/volume ) 34 mg/dL 7-18 Serum or plasma creatinine measurement (mass/volume) 1.57 mg/dL 0.60-1.30 Serum or plasma urea nitrogen/creatinine mass ratio 22 NRG Serum or plasma creatinine measurement w ith calculation of estimated glomerular filtration rate 33 NRG Serum or plasma glucose measurement (mass/volume) 498 mg/dL 70-105 Serum or plasma calcium measurement (mass/volume) 9.7 mg/dL 8.5-10.1 Serum or plasma total bilirubin measurement (mass/volu me) 0.2 mg/dL 0.1-1.0 Serum or plasma alkaline phosphatase karson surement (enzymatic activity/volume) 78 U/L 40-136 Serum or plasma aspartate aminotransfera se measurement (enzymatic activity/volume) 21 U/L 5-34 Serum or plasma alanine aminotransferase measurement (enzymatic activity/volume) 18 U/L 0-55 Serum or plasma protein measurement (mass/volume) 7.2 g/dL 6.4-8.2 Serum or plasma albumin measurement (mass/volume) 4.0 g/dL 3.2-4.5 CALCIUM CORRECTED 9.7 mg/dL 8.5-10.1 Complete urinalysis with reflex to cultu re - 10/28/18 15:55 Urine color determination YELLOW NRG Urine clarity determination CLEAR NR G Urine pH measurement by test strip 6 5-9 Specific gravity of urine by test strip 1.010 1.016-1.022 Urine protein assay by test strip, semi-quantitative 1+ NEGATIVE Urine glucose detection by automated test strip 4+ NEGATIVE Erythrocytes detection in urine sediment by light micr oscopy 2+ NEGATIVE Urine ketones detection by automated test strip NE GATIVE NEGATIVE Urine nitrite detection by test strip NEGATIVE NEGATIVE Urine total bilirubin detection by test strip NEGA TIVE NEGATIVE Urine urobilinogen measurement by automated test strip (mass/volume) NORMAL NORMAL Urine leukocyte esterase detection by dipstick NEG ATIVE NEGATIVE Automated urine sediment erythrocyte cou nt by microscopy (number/high power field) [HPF] NRG Automated urine sediment leukocyte count by microscopy (number/high power field) RARE NRG Bacteria detection in urine sediment by light microsco py NEGATIVE NRG Squamous epithelial cells detection in u rine sediment by light microscopy RARE NRG Crystals detection in urine sediment by light microsco py NONE NRG Casts detection in urine sediment by light microscopy NONE NRG Mucus detection in urine sediment by light microscopy NEGATIVE NRG Complete urinalysis with reflex to culture NO NRG Capillary blood glucose measurement by g lucometer (mass/volume) - 10/28/18 16:26 Capillary blood glucose measurement by glucometer (mas s/volume) 493 mg/dL 70-110 CMP - 10/31/18 08:14 GLUCOSE 476 mg/dL 65-99 UREA NITROGEN (BUN) 40 mg/dL 7-25 CREATININE 1.44 mg/dL 0.50-0.99 eGFR NON-AFR. MOLDOVAN 39 mL/min/1.73m2 > OR = 60 eGFR 45 mL/min/1.73m2 > OR = 60 BUN/CREATININE RATIO 28 (calc) 6-22 SODIUM 130 mmol/L 135-146 POTASSIUM 4.1 mmol/L 3.5-5.3 CHLORIDE 92 mmol/L 98-110 CARBON DIOXIDE 29 mmol/L 20-32 CALCIUM 10.3 mg/dL 8.6-10.4 PROTEIN, TOTAL 6.5 g/dL 6.1-8.1 ALBUMIN 3.8 g/dL 3.6-5.1 GLOBULIN 2.7 g/dL (calc) 1.9-3.7 ALBUMIN/GLOBULIN RATIO 1.4 (calc) 1.0-2. 5 BILIRUBIN, TOTAL 0.3 mg/dL 0.2-1.2 ALKALINE PHOSPHATASE 63 U/L 33-130 AST 21 U/L 10-35 ALT 22 U/L 08-30 CMP - 11/14/18 08:26 GLUCOSE 339 mg/dL 65-99 UREA NITROGEN (BUN) 35 mg/dL 7-25 CREATININE 1.61 mg/dL 0.50-0.99 eGFR NON-AFR. MOLDOVAN 33 mL/min/1.73m2 > OR = 60 eGFR 39 mL/min/1.73m2 > OR = 60 BUN/CREATININE RATIO 22 (calc) 6-22 SODIUM 133 mmol/L 135-146 POTASSIUM 4.6 mmol/L 3.5-5.3 CHLORIDE 97 mmol/L 98-110 CARBON DIOXIDE 27 mmol/L 20-32 CALCIUM 9.4 mg/dL 8.6-10.4 PROTEIN, TOTAL 6.6 g/dL 6.1-8.1 ALBUMIN 3.8 g/dL 3.6-5.1 GLOBULIN 2.8 g/dL (calc) 1.9-3.7 ALBUMIN/GLOBULIN RATIO 1.4 (calc) 1.0-2. 5 BILIRUBIN, TOTAL 0.3 mg/dL 0.2-1.2 ALKALINE PHOSPHATASE 92 U/L 33-130 AST 20 U/L 10-35 ALT 20 U/L 08-30 CBC - 11/14/18 08:26 WHITE BLOOD CELL COUNT 9.4 Thousand/uL 3 .8-10.8 RED BLOOD CELL COUNT 4.18 Million/uL 3.8 0-5.10 HEMOGLOBIN 10.1 g/dL 11.7-15.5 HEMATOCRIT 33.9 % 35.0-45.0 MCV 81.1 fL 80.0-100.0 MCH 24.2 pg 27.0-33.0 MCHC 29.8 g/dL 32.0-36.0 RDW 16.5 % 11.0-15.0 PLATELET COUNT 293 Thousand/uL 140-400 MPV 10.4 fL 7.5-12.5 ABSOLUTE NEUTROPHILS 6994 cells/uL 1500- 7800 ABSOLUTE LYMPHOCYTES 1485 cells/uL 850-3 900 ABSOLUTE MONOCYTES 573 cells/uL 200-950 ABSOLUTE EOSINOPHILS 282 cells/uL 15-500 ABSOLUTE BASOPHILS 66 cells/uL 0-200 NEUTROPHILS 74.4 % NRG LYMPHOCYTES 15.8 % NRG MONOCYTES 6.1 % NRG EOSINOPHILS 3.0 % NRG BASOPHILS 0.7 % NRG Capillary blood glucose measurement by g lucometer (mass/volume) - 12/08/18 16:37 Capillary blood glucose measurement by glucometer (mas s/volume) 445 mg/dL 70-110 Bacterial blood culture - 12/08/18 16:40 Bacterial blood culture NG NRG Complete blood count (CBC) with automate d white blood cell (WBC) differential - 12/08/18 16:45 Blood leukocytes automated count (number/volume) 8.8 10*3/uL 4.3-11.0 Blood erythrocytes automated count (number/volume) 3.51 10*6/uL 4.35-5.85 Venous blood hemoglobin measurement (mass/volume) 8.5 g/dL 11.5-16.0 Blood hematocrit (volume fraction) 28 % 35-52 Automated erythrocyte mean corpuscular volume 79 [ foz_us] 80-99 Automated erythrocyte mean corpuscular h emoglobin (mass per erythrocyte) 24 pg 25-34 Automated erythrocyte mean corpuscular h emoglobin concentration measurement (mass/volume) 31 g/dL 32-36 Automated erythrocyte distribution width ratio 17. 0 % 10.0- 14.5 Automated blood platelet count (count/volume) 246 10*3/uL 130-400 Automated blood platelet mean volume measurement 9.5 [foz_us] 7.4-10.4 Automated blood neutrophils/100 leukocytes 79 % 42-75 Automated blood lymphocytes/100 leukocytes 13 % 12-44 Blood monocytes/100 leukocytes 7 % 0-12 Automated blood eosinophils/100 leukocytes 2 % 0-10 Automated blood basophils/100 leukocytes 0 % 0-10 Blood neutrophils automated count (number/volume) 6.9 10*3 1.8-7.8 Blood lymphocytes automated count (number/volume) 1.1 10*3 1.0-4.0 Blood monocytes automated count (number/volume) 0. 6 10*3 0.0-1.0 Automated eosinophil count 0.2 10*3/uL 0 .0-0.3 Automated blood basophil count (count/volume) 0.0 10*3/uL 0.0-0.1 Blood lactic acid measurement (moles/vol ume) - 12/08/18 16:45 Blood lactic acid measurement (moles/volume) 1.51 mmol/L 0.50-2.00 Comprehensive metabolic panel - 12/08/18 16:45 Serum or plasma sodium measurement (moles/volume) 135 mmol/L 135-145 Serum or plasma potassium measurement (moles/volume) 3.6 mmol/L 3.6-5.0 Serum or plasma chloride measurement (moles/volume) 99 mmol/L 98-107 Carbon dioxide 27 mmol/L 21-32 Serum or plasma anion gap determination (moles/volume) 9 mmol/L 5-14 Serum or plasma urea nitrogen measurement (mass/volume ) 17 mg/dL 7-18 Serum or plasma creatinine measurement (mass/volume) 1.44 mg/dL 0.60-1.30 Serum or plasma urea nitrogen/creatinine mass ratio 12 NRG Serum or plasma creatinine measurement w ith calculation of estimated glomerular filtration rate 37 NRG Serum or plasma glucose measurement (mass/volume) 463 mg/dL 70-105 Serum or plasma calcium measurement (mass/volume) 8.9 mg/dL 8.5-10.1 Serum or plasma total bilirubin measurement (mass/volu me) 0.3 mg/dL 0.1-1.0 Serum or plasma alkaline phosphatase karson surement (enzymatic activity/volume) 90 U/L 40-136 Serum or plasma aspartate aminotransfera se measurement (enzymatic activity/volume) 31 U/L 5-34 Serum or plasma alanine aminotransferase measurement (enzymatic activity/volume) 25 U/L 0-55 Serum or plasma protein measurement (mass/volume) 6.4 g/dL 6.4-8.2 Serum or plasma albumin measurement (mass/volume) 3.5 g/dL 3.2-4.5 CALCIUM CORRECTED 9.3 mg/dL 8.5-10.1 Beta-hydroxybutyric acid measurement - 1 16:45 Beta-hydroxybutyric acid measurement 0.11 mmol/L 0.00-0.27 Serum or plasma lithium measurement (mol es/volume) - 12/08/18 16:45 BNP PT 206.4 pg/mL <100.0 Complete urinalysis with reflex to cultu re - 12/08/18 17:00 Urine color determination YELLOW NRG Urine clarity determination SL CLOUDY N RG Urine pH measurement by test strip 6 5-9 Specific gravity of urine by test strip 1.015 1.016-1.022 Urine protein assay by test strip, semi-quantitative 2+ NEGATIVE Urine glucose detection by automated test strip 4+ NEGATIVE Erythrocytes detection in urine sediment by light micr oscopy 4+ NEGATIVE Urine ketones detection by automated test strip NE GATIVE NEGATIVE Urine nitrite detection by test strip NEGATIVE NEGATIVE Urine total bilirubin detection by test strip NEGA TIVE NEGATIVE Urine urobilinogen measurement by automated test strip (mass/volume) NORMAL NORMAL Urine leukocyte esterase detection by dipstick 1+ NEGATIVE Automated urine sediment erythrocyte cou nt by microscopy (number/high power field) [HPF] NRG Automated urine sediment leukocyte count by microscopy (number/high power field) [HPF] NRG Bacteria detection in urine sediment by light microsco py TRACE NRG Squamous epithelial cells detection in u rine sediment by light microscopy 2-5 NRG Crystals detection in urine sediment by light microsco py NONE NRG Casts detection in urine sediment by light microscopy NONE NRG Mucus detection in urine sediment by light microscopy NEGATIVE NRG Complete urinalysis with reflex to culture YES NRG Yeast detection in urine sediment by light microscopy FEW NRG Bacterial urine culture - 12/08/18 17:00 Bacterial urine culture 3 OR MORE NRG COLONY COUNT 20,000 CFU/ML NRG FTX;REPORTABLE GRAM POSITIVES, SUGGESTING PROBABLE NRG FREE TEXT ENTRY 2 COLLECTION CONTAMINATION WITH SK IN HARRY NRG FREE TEXT ENTRY 3 NO SUSCEPTIBLITY PERFORMED NRG Capillary blood glucose measurement by g lucometer (mass/volume) - 12/08/18 18:03 Capillary blood glucose measurement by glucometer (mas s/volume) 372 mg/dL 70-110 Capillary blood glucose measurement by g lucometer (mass/volume) - 12/08/18 19:15 Capillary blood glucose measurement by glucometer (mas s/volume) 312 mg/dL 70-110 CULTURE, URINE - 12/15/18 12:25 CULTURE, URINE, ROUTINE SEE NOTE NRG PDM - 09 PANEL (PROFILE 1) - 12/29/18 12 :43 Prescribed Drug 1 Hydrocodone NRG Creatinine 114.8 mg/dL > or = 20.0 pH 5.3 4.5-9.0 Oxidant NEGATIVE mcg/mL <200 Amphetamines NEGATIVE ng/mL <500 medMATCH Amphetamines CONSISTENT NRG Benzodiazepines NEGATIVE ng/mL <100 medMATCH Benzodiazepines CONSISTENT NRG Marijuana Metabolite NEGATIVE ng/mL <20 medMATCH Marijuana Metab CONSISTENT NRG Cocaine Metabolite NEGATIVE ng/mL <150 medMATCH Cocaine Metab CONSISTENT NRG Opiates NEGATIVE ng/mL <100 medMATCH Opiates INCONSISTENT NRG Oxycodone NEGATIVE ng/mL <100 medMATCH Oxycodone CONSISTENT NRG COMMENT NRG Prescribed Drug 2 Gabapentin NRG Barbiturates NEGATIVE ng/mL <300 medMATCH Barbiturates CONSISTENT NRG Methadone Metabolite NEGATIVE ng/mL <100 medMATCH Methadone Metab CONSISTENT NRG Phencyclidine NEGATIVE ng/mL <25 medMATCH Phencyclidine CONSISTENT NRG TSH - 04/29/19 10:46 TSH 1.17 mIU/L 0.40-4.50 SPECIMEN INTEGRITY COMPROMISED - 0 10:46 SPECIMEN INTEGRITY COMPROMISED NRG EXTRA LAVENDER-TOP TUBE - 04/29/19 10:46 COMMENT NRG EXTRA LAVENDER-TOP TUBE NRG Complete blood count (CBC) with automate d white blood cell (WBC) differential - 06/03/19 14:30 Blood leukocytes automated count (number/volume) 12.0 10*3/uL 4.3-11.0 Blood erythrocytes automated count (number/volume) 4.54 10*6/uL 4.35-5.85 Venous blood hemoglobin measurement (mass/volume) 11.5 g/dL 11.5-16.0 Blood hematocrit (volume fraction) 36 % 35-52 Automated erythrocyte mean corpuscular volume 80 [ foz_us] 80-99 Automated erythrocyte mean corpuscular h emoglobin (mass per erythrocyte) 25 pg 25-34 Automated erythrocyte mean corpuscular h emoglobin concentration measurement (mass/volume) 32 g/dL 32-36 Automated erythrocyte distribution width ratio 15. 8 % 10.0- 14.5 Automated blood platelet count (count/volume) 278 10*3/uL 130-400 Automated blood platelet mean volume measurement 9.9 [foz_us] 7.4-10.4 Automated blood neutrophils/100 leukocytes 77 % 42-75 Automated blood lymphocytes/100 leukocytes 13 % 12-44 Blood monocytes/100 leukocytes 8 % 0-12 Automated blood eosinophils/100 leukocytes 2 % 0-10 Automated blood basophils/100 leukocytes 0 % 0-10 Blood neutrophils automated count (number/volume) 9.3 10*3 1.8-7.8 Blood lymphocytes automated count (number/volume) 1.6 10*3 1.0-4.0 Blood monocytes automated count (number/volume) 0. 9 10*3 0.0-1.0 Automated eosinophil count 0.2 10*3/uL 0 .0-0.3 Automated blood basophil count (count/volume) 0.0 10*3/uL 0.0-0.1 Encounters ACCT No. Visit Date/Time Discharge Status Pt. Type Provider Facility Loc./Unit Complaint [id number] 06/14/2014 09:33:00 06/14/2014 23:59: 59 [facility] Outpatient JOSE LUIS SOLO DO [id number] 05/28/2014 11:33:00 05/28/2014 23:59: 59 [facility] Outpatient GEORGIA GALVAN APRN [id number] 03/15/2014 08:06:00 03/15/2014 23:59: 59 [facility] Outpatient JOSE LUIS SOLO DO [id number] 02/10/2014 15:44:00 02/10/2014 23:59: 59 [facility] Outpatient JOSE LUIS SOLO DO [id number] 12/10/2013 09:37:00 12/10/2013 23:59: 59 [facility] Outpatient GEORGIA GALVAN APRN [id number] 09/17/2013 09:00:00 09/17/2013 23:59: 59 [facility] Outpatient JOSE LUIS SOLO DO [id number] 07/24/2013 10:33:00 07/24/2013 23:59: 59 [facility] Outpatient JOSE LUIS SOLO DO [id number] 06/18/2013 08:16:00 06/18/2013 23:59: 59 [facility] Outpatient GEORGIA GALVAN APRN [id number] 03/16/2013 12:10:00 03/16/2013 23:59: 59 [facility] Outpatient GEORGIA GALVAN APRN [id number] 03/16/2013 08:44:00 03/16/2013 23:59: 59 [facility] Outpatient JOSE LUIS SOLO DO [id number] 02/19/2013 10:15:00 02/19/2013 23:59: 59 [facility] Outpatient GEORGIA GALVAN APRN [id number] 02/04/2013 14:09:00 02/04/2013 23:59: 59 [facility] Outpatient JOSE LUIS SOLO DO [id number] 12/31/2012 08:36:00 12/31/2012 23:59: 59 [facility] Outpatient JOSE LUIS SOLO DO [id number] 05/29/2012 15:48:00 05/29/2012 23:59: 59 [facility] Outpatient [id number] 05/16/2012 15:27:00 05/16/2012 23:59: 59 [facility] Outpatient MANNY VALDIVIA APRN [id number] 04/01/2012 14:23:00 04/01/2012 23:59: 59 [place] [id number] 12/25/2011 14:23:00 12/25/2011 23:59:5 9 [facility]LS Outpatient MARITZA NICOLE MD [id number] 12/25/2011 14:23:00 12/25/2011 23:59: 59 [facility] Outpatient MARITZA NICOLE MD [id number] 09/30/2012 15:14:00 Document Registration [id number] 09/05/2012 09:36:00 Document Registration [id number] 09/02/2012 09:00:00 Document Registration [id number] 08/02/2012 00:00:00 Document Registration [id number] 06/24/2012 14:54:00 Document Registration [id number] 04/22/2019 13:11:00 020 11:03:00 DIS Outpatient CATRACHITA MOLINA [facility] REHAB DECREASE EUSEBIA Rasmussen LE; FALLS [id number] 01/09/2019 07:29:00 019 08:00:00 DIS Emergency NANCY OLSON DO [facility] ER ITCHING/BURNING OF EYES [id number] 12/08/2018 16:06:00 019 19:26:00 DIS Emergency RICK SAMPSON APRN [facility] ER BLOOD SUGAR HIGH,FALL [id number] 10/28/2018 14:33:00 019 16:54:00 DIS Emergency DAISY NOVA MD [facility] ER HIGH BLOOD SUGAR; HIGH BP [id number] 10/24/2018 11:47:00 019 13:41:00 DIS Inpatient LENORE REYES, SREEKANTH Pisano [facility] 4TH ARF;UTI [id number] 10/11/2017 07:30:00 018 23:59:59 CLS Outpatient PAOLA ESCAMILLA MD [facility] CATARACT LEFT EYE [id number] 09/20/2017 06:24:00 018 08:20:00 DIS Outpatient PAOLA ESCAMILLA MD [facility] CATARACT RIGHT EYE [id number] 09/18/2017 05:59:00 018 23:59:59 CLS Outpatient PAOLA ESCAMILLA MD [facility] PREOP CATARACT RIGHT EYE [id number] 06/03/2017 09:07:00 018 10:25:00 DIS Emergency ANURADHA BUTLER DO [facility] ER BS ISSUES [id number] 05/16/2017 12:33:00 018 15:05:00 DIS Emergency RICK SAMPSON APRN [facility] ER POSS STROKE [id number] 10/30/2015 18:28:00 016 19:42:00 DIS Emergency ANURADHA BUTLER DO [facility] ER PAIN URINATING [id number] 08/18/2014 15:57:00 015 23:59:59 CLS Preadmit JOSE BILLINGS MD [facility] REHAB [id number] 06/16/2014 13:27:00 015 23:59:59 CLS Outpatient TRACEGERHARD NARAYANElizabeth Johnson APRN [facility] RAD MADELIN BRAR [id number] 07/11/2013 12:09:00 014 14:49:00 DIS Emergency AUNRADHA BUTLER DO [facility] ER DIZZINESS L LEG PAIN [id number] 05/08/2013 10:45:00 014 11:54:00 DIS Outpatient JOSE BILLINGS MD [facility] REHAB S/P LUMBAR FUSI ON [id number] 07/02/2012 12:15:00 013 12:22:00 DIS Outpatient MARITZA NICOLE MD [facility] REHAB L LEG [facility] [id number] 06/03/2019 14:42:00 Document Registration [id number] 10/08/2017 05:39:00 Document Registration [id number] 06/16/2014 13:32:00 Document Registration [id number] 05/14/2014 12:44:00 Document Registration [id number] 04/03/2012 13:04:00 Document Registration [id number] 09/04/2011 15:01:00 Document Registration [id number] 12/26/2010 13:39:00 Document Registration [id number] 01/31/2010 14:34:00 Document Registration [id number] 12/06/2009 14:41:00 Document Registration [id number] 11/30/2009 07:25:00 Document Registration [id number] 11/18/2009 10:09:00 Document Registration [id number] 18:35:00 Document Registration [id number] 09/08/2009 07:33:00 Document Registration [id number] 09/07/2009 07:33:00 Document Registration [id number] 08/31/2009 08:48:00 Document Registration [id number] 05/13/2019 16:40:00 05/13/2019 23:59:5 9 CLS Outpatient CATRACHITA MOLINA APRN [address] [id number] 04/29/2019 10:20:00 Document Registration [id number] 12/29/2018 12:00:00 Document Registration [id number] 12/15/2018 11:40:00 Document Registration [id number] 11/14/2018 08:20:00 Document Registration [id number] 10/31/2018 08:00:00 Document Registration [id number] 10/16/2017 08:40:00 Document Registration [id number] 06/06/2017 08:20:00 Document Registration [id number] 12/31/2016 08:00:00 Document Registration
[2019-06-03 15:02] LABS: ALBUMIN 3.9 GM/DL (3.2-4.5); BILIRUBIN,TOTAL 0.3 MG/DL (0.1-1.0); CALCIUM 8.9 MG/DL (8.5-10.1); CREATININE SERUM 1.28 MG/DL (0.60-1.30); POTASSIUM 3.6 MMOL/L (3.6-5.0); TOTAL PROTEIN 7.3 GM/DL (6.4-8.2)
[2019-06-03 15:24] LABS: FREE T4 (FREE THYROXINE) 0.78 NG/DL (0.70-1.48)
[2019-06-03] MEDS ORDERED: cefTRIAXone FOR IV USE 1,000 MG in WATER (STERILE) FOR INJECTION 10 ML IV ONE (15:30)
[2019-06-03] MEDS ORDERED: AMOX-358 PO (15:36)
--- NOTE | 2019-06-03 15:37 | ED General ---
General Chief Complaint: General Problems/Pain Stated Complaint: HAND/FEET SWELLING Nursing Triage Note: AMB TO ROOM WITH C/O SWELLING IN FEET FOR 2 WEEKS AND NOTICIED SWELLING IN R HAND TODAY. CALLED [facility] IN [place] AND WAS TOLD TO GO TO ER. NO SOB Nursing Sepsis Screen: No Definite Risk Source of Information: Patient Exam Limitations: No Limitations History of Present Illness Date Seen by Provider: Jun 03, 2019 Time Seen by Provider: 15:32 Initial Comments To ER with reports of swelling to both feet and this has been ongoing for about 2 weeks. Also noticed some swelling of the right hand starting today. No fever no chills. No shortness of breath no cough. Timing/Duration: Getting Worse Severity: Moderate (U) Allergies and Home Medications Allergies Coded Allergies: No Known Drug Allergies (Unverified , 11/05/09) Home Medications Aspirin 81 Mg Tablet.dr, 81 MG PO DAILY, (Reported) Cefuroxime Axetil 500 Mg Tablet, 500 MG PO BID Prescribed by: SREEKANTH GROVER on 10/26/18 1309 Cefuroxime Axetil 250 Mg Tablet, 250 MG PO BID Prescribed by: RICK SAMPSON on 12/08/181913 Fluconazole 200 Mg Tablet, 200 MG PO DAILY Prescribed by: RICK SAMPSON on 12/08/181913 Gabapentin 300 Mg Capsule, 900 MG PO HS, (Reported) TAKES 3 (300MG) CAPSULES Hydrocodone Bit/Acetaminophen 1 Each Tablet, 1 TAB PO Q6H PRN for PAIN-MODERATE, (Reported) Insulin Aspart 300 Units/3 Ml Solution, 0 SQ UD Prescribed by: RICK SAMPSON on 12/08/181913 Insulin Determir 1,000 Units/10 Ml Soln, 90 UNITS SC HS, (Reported) Liraglutide 0.6 Mg/0.1 Ml Pen.injctr, 1.8 MG SC DAILY, (Reported) Lovastatin 20 Mg Tablet, 20 MG PO HS, (Reported) Patient Home Medication List Home Medication List Reviewed: Yes Review of Systems Review of Systems Constitutional: see HPI EENTM: see HPI Respiratory: no symptoms reported Cardiovascular: no symptoms reported Genitourinary: no symptoms reported Musculoskeletal: no symptoms reported Skin: no symptoms reported Psychiatric/Neurological: No Symptoms Reported Hematologic/Lymphatic: No Symptoms Reported Past Qselhnm-Txdoen-Kphavm Hx Patient Social History Alcohol Use: Denies Use Recreational Drug Use: No Type Used: Cigarettes 2nd Hand Smoke Exposure: No Recent Foreign Travel: No Contact w/Someone Who Travel: No Recent Infectious Disease Expo: No Recent Hopitalizations: No Past Medical History Surgeries: Yes (GASTRIC BYPASS, BACK SX X 2) Abdominal, Orthopedic Respiratory: No Cardiac: Yes High Cholesterol, Hypertension Neurological: Yes Neuropathy Reproductive Disorders: No [employer] C[employer]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 0.6oz. 84.834739hc; 29.00 BMI Method:Stated General Appearance: No Apparent Distress, WD/WN Eyes: Bilateral Eye Normal Inspection, Bilateral Eye PERRL, Bilateral Eye EOMI HEENT: PERRL/EOMI Neck: Full Range of Motion, Normal Inspection Respiratory: Normal Breath Sounds, No Accessory Muscle Use, No Respiratory Distress Gastrointestinal: Normal Bowel Sounds, Non Tender, Soft Extremity: Normal Capillary Refill, Normal Inspection, Other (there is absolutely no swelling of either foot. Both feet are warm, toenails need trimmed. The dorsal right hand over the second and third metacarpals there is erythema and some swelling localized to this region with a central punctum, we will treat this as a localized cellulitis. She can flex all of the fingers to make a fist and extend, no concern for extensor tenosynovitis.) Neurologic/Psychiatric: Alert, Oriented x3 Skin: Normal Color, Warm/Dry Progress/Results/Core Measures Suspected Sepsis Recent Fever Within 48 Hours: No Infection Criteria Present: None New/Unexplained Altered Menta: No Sepsis Screen: No Definite Risk SIRS Temperature: Pulse: 100 Respiratory Rate: 18 Laboratory Tests 06/03/19 14:30: White Blood Count 12.0H Blood Pressure 205 /106 Mean: 139 Laboratory Tests 06/03/19 14:30: Creatinine 1.28, Platelet Count 278, Total Bilirubin 0.3 Results/Orders Lab Results Laboratory Tests Test 06/03/19 14:30 Range/Units White Blood Count 12.0 H 4.3-11.0 10^3/uL Red Blood Count 4.54 4.35-5.85 10^6/uL Hemoglobin 11.5 11.5-16.0 G/DL Hematocrit 36 35-52 % Mean Corpuscular Volume 80 80-99 FL Mean Corpuscular Hemoglobin 25 25-34 PG Mean Corpuscular Hemoglobin Concent 32 32-36 G/DL Red Cell Distribution Width 15.8 H 10.0-14.5 % Platelet Count 278 130-400 10^3/uL Mean Platelet Volume 9.9 7.4-10.4 FL Neutrophils (%) (Auto) 77 H 42-75 % Lymphocytes (%) (Auto) 13 12-44 % Monocytes (%) (Auto) 8 0-12 % Eosinophils (%) (Auto) 2 0-10 % Basophils (%) (Auto) 0 0-10 % Neutrophils # (Auto) 9.3 H 1.8-7.8 X 10^3 Lymphocytes # (Auto) 1.6 1.0-4.0 X 10^3 Monocytes # (Auto) 0.9 0.0-1.0 X 10^3 Eosinophils # (Auto) 0.2 0.0-0.3 10^3/uL Basophils # (Auto) 0.0 0.0-0.1 10^3/uL Sodium Level 132 L 135-145 MMOL/L Potassium Level 3.6 3.6-5.0 MMOL/L Chloride Level 97 L 98-107 MMOL/L Carbon Dioxide Level 21 21-32 MMOL/L Anion Gap 14 5-14 MMOL/L Blood Urea Nitrogen 11 7-18 MG/DL Creatinine 1.28 0.60-1.30 MG/DL Estimat Glomerular Filtration Rate 42 BUN/Creatinine Ratio 9 Glucose Level 390 H 70-105 MG/DL Calcium Level 8.9 8.5-10.1 MG/DL Corrected Calcium 9.0 8.5-10.1 MG/DL Total Bilirubin 0.3 0.1-1.0 MG/DL Aspartate Amino Transf (AST/SGOT) 34 5-34 U/L Alanine Aminotransferase (ALT/SGPT) 36 0-55 U/L Alkaline Phosphatase 88 40-136 U/L B-Type Natriuretic Peptide 94.4 <100.0 PG/ML Total Protein 7.3 6.4-8.2 GM/DL Albumin 3.9 3.2-4.5 GM/DL Thyroid Stimulating Hormone (TSH) 1.06 0.35-4.94 UIU/ML Free Thyroxine 0.78 0.70-1.48 NG/DL My Orders Orders - RICK SAMPSON APRN Thyroid Stimulating Hormone (06/03/19 14:11) Free T4 (Free Thyroxine) (06/03/19 14:11) Cbc With Automated Diff (06/03/19 14:11) Comprehensive Metabolic Panel (06/03/19 14:11) BNP (06/03/19 14:11) Ed Iv/Invasive Line Start (06/03/19 14:11) Ceftriaxone For Iv Use (Rocephin For I (06/03/19 15:30) Vital Signs/I&O 06/03/19 14:12 Temp 36.7 Pulse 100 Resp 18 B/P (MAP) 205/106 (139) O2 Delivery Room Air Capillary Refill : Less Than 3 Seconds Blood Pressure Mean: 139 Departure Impression Primary Impression: Cellulitis of hand Disposition: 01 HOME, SELF-CARE Condition: Stable Departure-Patient Inst. Decision time for Depature: 15:35 Referrals: CATRACHITA MOLINA (PCP) Primary Care Physician [facility] (Family) Primary Care Physician Patient Instructions: Cellulitis (Skin Infection), Adult (DC) Add. Discharge Instructions: 1. Return to ER for any concerns 2. Follow-up with your doctor next week 3. Antibiotics as directed 4. All discharge instructions reviewed with patient and/or family. Voiced understanding. Scripts Amoxicillin/Potassium Clav (Augmentin 875-125 Tablet) 1 Each Tablet 1 EACH PO BID, #14 TAB 0 Refills Prov: RICK SAMPSON APRN 06/03/19 RICK SAMPSON APRN Jun 03, 2019 15:36
[2019-06-03 15:51] VITALS: BP 134/96
== END 2019-06-03 15:51 | disposition home or self-care (01) ==
LOC: EDUNIT# 14:07 → ER 14:08
DX: L03.113 Cellulitis of right upper limb (principal); E11.40 Type 2 diabetes mellitus with diabetic neuropathy, unspecified; F41.9 Anxiety disorder, unspecified; F32.9 Major depressive disorder, single episode, unspecified; G25.81 Restless legs syndrome; M54.9 Dorsalgia, unspecified; E78.00 Pure hypercholesterolemia, unspecified; I10 Essential (primary) hypertension; Z98.84 Bariatric surgery status; Z79.4 Long term (current) use of insulin; Z79.82 Long term (current) use of aspirin; Z79.899 Other long term (current) drug therapy
CPT/HCPCS: 36415; 80053; 83880; 84439; 84443; 85025

== ENCOUNTER 2019-07-26 17:18 | Emergency (ER) | payer MEDICARE ==
[~2019-07-26] VITALS: Ht 162 cm; Wt 78.1 kg
[~2019-07-26 17:18] MED LIST changes: +AMOX-358 PO
--- OUTSIDE RECORDS SUMMARY | 2019-07-26 17:25 | XMS REPORT ---
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 Name Role Phone Migration, Doctor Unavailable Unavailable PROBLEMS Type Condition ICD9-CM Code BFD63-YS Code Onset Dates Condition S tatus SNOMED Code Problem Essential hypertension I10 Active 32984709 Problem RLS (restless legs syndrome) G25.81 A ctive 30707373 Problem Other chronic pain G89.29 Active 8 7859024 Problem Diabetic polyneuropathy associated with type 2 d iabetes mellitus E11.42 Active 81766241 Problem Spinal stenosis, unspecified spinal region M48.00 Active 85965851 Problem Encounter for immunization Z23 Act nicole 410717130 Problem Type 2 diabetes mellitus with other specified complication E11.69 Active 67757883490841 Problem Reactive depression F32.9 Active 35684555 Problem Hypoglycemia E16.2 Active 5666006 03 Problem Moderate episode of recurrent major depressive disorder F33.1 Active 250421525 Problem Hyperlipidemia, unspecified E78.5 Ac tive 44564011 Problem Falling R29.6 Active 931388198 Problem Type 2 diabetes mellitus with hyperglycemia E11.65 Active 752439253240018 Problem 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 Active 867160069 Problem Type 2 diabetes mellitus with other diabetic kid rory complication E11.29 Active 93081766 Problem Unsteady gait R26.81 Active 146734 008 Problem Moderate episode of recurrent major depressive disorder F33.1 Active 536962168 ALLERGIES No Information ENCOUNTERS Encounter Location Date Diagnosis [place] [address] [id number] [place] [address] July, [place] [address] [id number] [place] [address] July, Spinal stenosis, unspecified spinal joesph on M48.00 [place] [address] [id number] [place] [address] July, Type 2 diabetes mellitus with hyperglyce nadiya E11.65 [facility] [place] [address] [id number] [address] [place] [address] July, [facility] [address] [place], [place] [address] [address] [id number] [place] [address] Jun, Essential hypertension I10 [facility] [place] [address] [id number] [place] [id number] Jun, [facility] [address] [place] [address] [id number] [place] [address] Jun, [facility] [place] [address] [id number] [place] [id number] Jun, Spinal stenosis, unspecified spinal joesph on M48.00 [facility] [address] [place] [address] [id number] [place] [address] Jun, Cellulitis of hand L03.119 and Essential hypertension I10 [facility] [place] [address] [id number] [place] [address] May, [facility] [address] [place] [address] [id number] [place] [address] May, Laceration of right periocular area with out foreign body, initial encounter S01.111A and Essential hypertension I10 [facility] [address] [place] [address] [id number] [place] [address] May, [facility] [address] [place] [address] [id number] [place] [address] May, Spinal stenosis, unspecified spinal joesph on M48.00 [facility] [address] [place] [address] [id number] [place] [address] Apr, Type 2 diabetes mellitus with other spec ified complication E11.69 ; Essential hypertension I10 and Hyperlipidemia, unspecified E78.5 [facility] [address] [place] [address] [id number] [place] [address] Apr, Spinal stenosis, unspecified spinal joesph on M48.00 [facility] [place] [address] [id number] [place] [address] 04 Apr, 2019 [facility] [place] [address] [id number] [place] [address] Mar, Spinal stenosis, unspecified spinal joesph on M48.00 [facility] [place] [address] [id number] [place] [id number] Feb, Essential hypertension I10 ; Type 2 diab etes mellitus with hyperglycemia E11.65 ; Falling R29.6 and Spinal stenosis, unspecified spinal region M48.00 [facility] [place] [address] [id number] [place] [id number] Feb, Vertigo R42 and Laceration of right foot , initial encounter S91.311A [facility] [place] [address] [id number] [place] [id number] Jan, Essential hypertension I10 and Type 2 di abetes mellitus with hyperglycemia E11.65 [facility] [place] [address] [id number] [place] [id number] Jan, Spinal stenosis, unspecified spinal joesph on M48.00 [facility] [place] [address] [id number] [place] [id number] Jan, Essential hypertension I10 and Sp[address] st enosis, unspecified spinal region M48.00 [facility] [place] [address] [id number] [place] [id number] Jan, [facility] [place] [address] [id number] [place] [id number] Jan, [facility] [place] [address] [id number] [place] [id number] Dec, Type 2 diabetes mellitus with other spec ified complication E11.69 and Other chronic pain G89.29 [facility] [place] [address] [id number] [place] [id number] Dec, Spinal stenosis, unspecified spinal joesph on M48.00 [facility] [place] [address] [id number] [place] [address] Dec, Type 2 diabetes mellitus wit h other diabetic kidney complication E11.29 [facility] [address] [facility] [id number] [place] [id number] 14 Dec, 2018 Type 2 diabetes mellitus with other diab etic kidney complication E11.29 ; Fatigue, unspecified type R53.83 ; Moderate episode of recurrent major depressive disorder F33.1 and Acute cystitis with hematuria N30.01 [facility] [place] 120 [facility] [id number] [place] [id number] 08 Dec, 2018 [facility] [address] [facility] [place] [facility] [id number] [address] [address] 07 Dec, 2018 Injury of head, initial enco unter S09.90XA ; Unsteady gait R26.81 and Hyperglycemia R73.9 [facility] 120 [facility] [id number] [place] [id number] Nov, Spinal stenosis, unspecified spinal joesph on M48.[address] [id number] [place] [id number] 17 Nov, 2018 Type 2 diabetes mellitus with other diab etic kidney complication E11.29 and 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 [id number] [place] [id number] Nov, Acute renal failure, unspecified acute r enal failure type N17.9 [facility] [address] [id number] [place] [id number] Oct, Diabetic polyneuropathy associated with type 2 diabetes mellitus E11.42 ; Essential hypertension I10 ; Acute renal failure, unspecified acute renal failure type N17.9 and Spinal stenosis, unspecified spinal region M48.[address] [id number] [place] [id number] Oct, Essential hypertension I10 ; Diabetic po lyneuropathy associated with type 2 diabetes mellitus E11.42 and Acute renal failure, unspecified acute renal failure type N17.9 [facility] [address] [id number] [address] Oct, [facility] 120 [facility] [id number] [place] [id number] Oct, [facility] [place] [address] [id number] [place] [id number] Oct, [facility] [place] [address] [id number] [place] [id number] Oct, Essential hypertension I10 ; Diabetic po lyneuropathy associated with type 2 diabetes mellitus E11.42 and Acute renal failure, unspecified acute renal failure type N17.9 [facility] [place] [address] [id number] [place] [id number] Oct, Spinal stenosis, unspecified spinal joesph on M48.00 [facility] [place] [address] [id number] [place] [id number] Sep, Spinal stenosis, unspecified spinal joesph on M48.00 [facility] [place] [address] [id number] [place] [id number] Sep, Type 2 diabetes mellitus with other spec ified complication E11.69 ; Vertigo R42 and Spinal stenosis, unspecified spinal region M48.00 [facility] [place] [address] [id number] [place] [id number] Sep, Spinal stenosis, unspecified spinal joesph on M48.00 [facility] [place] [address] [id number] [place] [id number] Sep, Spinal stenosis, unspecified spinal joesph on M48.00 [facility] [place] [address] [id number] [place] [id number] Aug, Spinal stenosis, unspecified spinal joesph on M48.00 [facility] [place] [address] [id number] [place] [id number] July, Diabetic polyneuropathy associated with type 2 diabetes mellitus E11.42 [facility] [place] [address] [id number] [place] [id number] July, Spinal stenosis, unspecified spinal joesph on M48.00 [facility] [place] [address] [id number] [place] [id number] July, Spinal stenosis, unspecified spinal joesph on M48.00 [facility] [place] [address] [id number] [place] [id number] Jun, Spinal stenosis, unspecified spinal joesph on M48.00 [facility] [place] [address] [id number] [place] [id number] Jun, Diabetic polyneuropathy associated with type 2 diabetes mellitus E11.42 [facility] [place] [address] [id number] [place] [id number] May, Diabetic polyneuropathy associated with type 2 diabetes mellitus E11.42 [facility] [place] [address] [id number] [place] [id number] May, [facility] [place] [address] [id number] [place] [id number] May, Spinal stenosis, unspecified spinal joesph on M48.00 [facility] [place] [address] [id number] [place] [id number] Apr, Spinal stenosis, unspecified spinal joesph on M48.00 [facility] [id number] [id number] Apr, [facility] [address] [facility] [facility] [id number] [address] [place] [address] Apr, Puncture wound T14.8XXA ; Ab rasion T14.8XXA and Encounter for immunization Z23 [facility] [place] [address] [id number] [place] [id number] Mar, Spinal stenosis, unspecified spinal joesph on M48.00 [facility] [place] [address] [id number] [place] [id number] Feb, Spinal stenosis, unspecified spinal joesph on M48.00 [facility] [place] [address] [id number] [place] [id number] Jan, Type 2 diabetes mellitus with hyperglyce nadiya E11.65 ; Diabetes type 2, controlled E11.9 ; Spinal stenosis, unspecified spinal region M48.00 and Encounter for immunization Z23 [facility] [place] [address] [facility] [id number] [address] [place] [address] Dec, Spinal stenosis, unspecified spinal region M48.00 [facility] [address] [id number] [address] [place] [address] Dec, [facility] [address] [id number] [address] [place] [address] Dec, [facility] [address] [id number] [address] [place] [address] Dec, [facility] [place] [address] [id number] [place] [id number] Nov, [facility] [place] [address] [id number] [place] [id number] Nov, Spinal stenosis, unspecified spinal joesph on M48.00 [facility] [place] [address] [id number] [place] [id number] Oct, Spinal stenosis, unspecified spinal joesph on M48.00 [facility] [place] [address] [id number] [place] [id number] Oct, Spinal stenosis, unspecified spinal joesph on M48.00 [facility] [place] [address] [id number] [place] [id number] Oct, [facility] [place] [address] [id number] [place] [id number] Oct, Diabetic polyneuropathy associated with type 2 diabetes mellitus E11.42 ; RLS (restless legs syndrome) G25.81 ; Spinal stenosis, unspecified spinal region M48.00 and Acute cystitis with hematuria N30.01 [facility] [place] [address] [id number] [place] [id number] Oct, [facility] [place] [address] [id number] [place] [id number] Oct, Spinal stenosis, unspecified spinal joesph on M48.00 [facility] [place] [address] [id number] [place] [id number] Sep, Diabetic polyneuropathy associated with type 2 diabetes mellitus E11.42 [facility] [address] [id number] [address] [place] [address] Sep, [facility] [place] [address] [id number] [place] [id number] Sep, Spinal stenosis, unspecified spinal joesph on M48.00 [facility] [place] [address] [facility] [facility] [id number] [address] [place] [address] Aug, [facility] [place] [address] [id number] [place] [id number] Aug, Spinal stenosis, unspecified spinal joesph on M48.00 [facility] [place] [address] [id number] [place] [id number] Aug, Spinal stenosis, unspecified spinal joesph on M48.00 [facility] [place] [address] [id number] [place] [id number] July, [facility] [place] [address] [id number] [place] [id number] July, Diabetic polyneuropathy associated with type 2 diabetes mellitus E11.42 ; Type 2 diabetes mellitus with hyperglycemia E11.65 ; RLS (restless legs syndrome) G25.81 and Essential hypertension I10 [facility] [place] [address] [id number] [place] [id number] July, Spinal stenosis, unspecified spinal joesph on M48.00 [facility] [place] [address] [id number] [place] [id number] July, [facility] [place] [address] [id number] [place] [id number] Jun, Type 2 diabetes mellitus with other spec ified complication E11.69 [facility] [place] [address] [id number] [place] [id number] Jun, Spinal stenosis, unspecified spinal joesph on M48.00 [facility] [place] [address] [id number] [place] [id number] Jun, Hypoglycemia E16.2 [facility] [place] [address] [id number] [place] [id number] May, Hypoglycemia E16.2 ; Acute cystitis with hematuria N30.01 and Essential hypertension I10 [facility] [address] [facility] [place] [facility] [id number] [place] [address] May, [facility] [place] [address] [id number] [place] [id number] May, Spinal stenosis, unspecified spinal joesph on M48.00 [facility] [place] [address] [id number] [place] [id number] May, Reactive depression F32.9 [facility] [place] [address] [id number] [place] [id number] May, [facility] [place] [address] [id number] [place] [id number] Apr, [facility] [address] [id number] [place] [id number] Apr, [facility] [address] [id number] [place] [id number] Apr, [facility] [place] [address] [id number] [place] [id number] Apr, [facility] [place] [address] [id number] [place] [id number] Apr, Spinal stenosis, unspecified spinal ojesph on M48.00 [facility] [place] [address] [id number] [place] [id number] Apr, Type 2 diabetes mellitus with other spec ified complication E11.69 ; Spinal stenosis, unspecified spinal region M48.00 ; Reactive depression F32.9 and Essential hypertension I[address] [facility] [address] [id number] [place] [id number] Apr, [facility] [place] [address] [id number] [place] [id number] Mar, Spinal stenosis, unspecified spinal joesph on M48.00 [facility] [place] [address] [id number] [place] [id number] Feb, Acute non-recurrent maxillary sinusitis J01.00 and Essential hypertension I10 [facility] [place] [address] [id number] [place] [id number] Feb, Spinal stenosis, unspecified spinal joesph on M48.00 [facility] [place] [address] [id number] [place] [id number] Feb, Type 2 diabetes mellitus with other spec ified complication E11.69 [facility] [place] [address] [id number] [place] [id number] Feb, Type 2 diabetes mellitus with other spec ified complication E11.69 and Essential hypertension I10 [facility] [place] [address] [id number] [place] [id number] Feb, [facility] [place] [address] [id number] [place] [id number] Feb, [facility] [place] [address] [id number] [place] [id number] Jan, Spinal stenosis, unspecified spinal joesph on M48.00 [facility] [place] [address] [id number] [place] [id number] Jan, Diabetic polyneuropathy associated with type 2 diabetes mellitus E11.42 [facility] [place] [address] [id number] [place] [id number] Jan, Diabetic polyneuropathy associated with type 2 diabetes mellitus E11.42 [facility] [place] [address] [id number] [place] [id number] Jan, Type 2 diabetes mellitus with hyperglyce nadiya E11.65 ; Type 2 diabetes mellitus with other specified complication E11.69 ; Spinal stenosis, unspecified spinal region M48.00 and Essential hypertension I10 [facility] [place] [address] [id number] [place] [id number] Jan, Diabetic polyneuropathy associated with type 2 diabetes mellitus E11.42 [facility] [place] [address] [id number] [place] [id number] Dec, [facility] [place] [address] [id number] [place] [id number] Dec, Diabetic polyneuropathy associated with type 2 diabetes mellitus E11.42 ; Type 2 diabetes mellitus with other specified complication E11.69 ; Hyperlipidemia, unspecified E78.5 ; Thyroid disorder E07.9 and Thyroid disorder screening Z13.29 [facility] [place] [address] [id number] [place] [id number] Dec, Diabetic polyneuropathy associated with type 2 diabetes mellitus E11.42 [facility] [place] [address] [id number] [address] [address] Dec, Diabetic polyneuropathy asso ciated with type 2 diabetes mellitus E11.42 [facility] [place] [address] [id number] [place] [id number] Dec, Spinal stenosis, unspecified spinal joesph on M48.00 [facility] [place] [address] [id number] [place] [id number] Dec, [facility] [place] [address] [id number] [place] [id number] 18 Nov, 2016 Diabetic polyneuropathy associated with type 2 diabetes mellitus E11.42 [facility] [place] [address] [id number] [place] [id number] 15 Nov, 2016 Other chronic pain G89.29 [facility] [place] [address] [id number] [place] [id number] 14 Nov, 2016 Spinal stenosis, unspecified spinal joesph on M48.00 [facility] [place] [address] [id number] [place] [id number] Oct, Spinal stenosis, unspecified spinal joesph on M48.00 ; Essential hypertension I10 ; RLS (restless legs syndrome) G25.81 and Diabetic polyneuropathy associated with type 2 diabetes mellitus E11.42 [facility] [place] [address] [id number] [place] [id number] Oct, Spinal stenosis, unspecified spinal joesph on M48.00 [facility] [place] [address] [id number] [place] [id number] Sep, Diabetic polyneuropathy associated with type 2 diabetes mellitus E11.42 ; RLS (restless legs syndrome) G25.81 ; Spinal stenosis, unspecified spinal region M48.00 and Essential hypertension I10 [facility] [place] [address] [id number] [place] [id number] Sep, [facility] [place] [address] [id number] [place] [id number] Sep, Spinal stenosis, unspecified spinal joesph on M48.00 [facility] [place] [address] [id number] [place] [id number] Sep, [facility] [place] [address] [id number] [place] [id number] Aug, Spinal stenosis, unspecified spinal joesph on M48.00 [facility] [place] [address] [id number] [address] [place] [address] July, [facility] [place] [address] [id number] [place] [id number] July, Spinal stenosis, unspecified spinal joesph on M48.00 [facility] [place] [address] [id number] [place] [id number] Jun, Type 2 diabetes mellitus with hyperglyce nadiya E11.65 [facility] [place] [address] [id number] [place] [id number] Jun, Spinal stenosis, unspecified spinal joesph on M48.00 [facility] [place] [address] [id number] [place] [id number] May, Spinal stenosis, unspecified spinal joesph on M48.00 [facility] [place] [address] [id number] [place] [id number] Apr, Spinal stenosis, unspecified spinal joesph on M48.00 [facility] [place] [address] [id number] [address] [place] [address] Mar, [facility] [place] [address] [id number] [place] [id number] Mar, Type 2 diabetes mellitus with hyperglyce nadiya E11.65 ; RLS (restless legs syndrome) G25.81 and Spinal stenosis, unspecified spinal region M48.00 [facility] [place] [address] [id number] [address] [place] [address] Mar, [facility] [place] [address] [id number] [place] [id number] Mar, [facility] [address] [id number] [id number] Mar, [facility] [place] [address] [id number] [place] [id number] Feb, [facility] [address] [facility] [id number] [address] [place] [address] Feb, [facility] [place] [address] [id number] [place] [id number] Feb, [facility] [address] [id number] [place] [id number] Feb, [facility] [address] [facility] [id number] [address] [place] [address] Feb, [facility] [address] [facility] [id number] [address] [place] [address] Feb, [facility] [address] [id number] [place] [id number] Jan, [facility] [address] [id number] [place] [id number] Dec, Diabetic polyneuropathy associated with type 2 diabetes mellitus E11.42 ; Other chronic pain G89.29 ; Essential hypertension I10 and Encounter for immunization Z23 [facility] [address] [id number] [place] [id number] Dec, [facility] [address] [facility] [id number] [address] [place] [address] Nov, [facility] [address] [id number] [place] [id number] Nov, [facility] [address] [id number] [place] [id number] Nov, Diabetes type 2, controlled E11.9 [facility] [address] [id number] [place] [id number] Nov, Diabetes type 2, controlled E11.9 ; Othe r chronic pain G89.29 ; Essential hypertension I10 ; Diabetic polyneuropathy associated with type 2 diabetes mellitus E11.42 and RLS (restless legs syndrome) G25.81 [facility] [address] [facility] [id number] [address] [place] [address] Nov, [facility] [place] [address] [id number] [place] [id number] Oct, [facility] [place] [address] [id number] [place] [id number] Oct, [facility] [place] [address] [id number] [place] [id number] Oct, [facility] [address] [id number] [address] [place] [address] Oct, [facility] [place] [address] [id number] [place] [id number] Sep, [facility] [place] [address] [id number] [place] [id number] Sep, [facility] [address] [id number] [address] [place] [address] Sep, Dental examination Z01.20 [facility] [address] [facility] [id number] [address] [place] [id number] Aug, [facility] [place] [address] [id number] [place] [id number] Aug, [facility] [address] [facility] [id number] [address] [place] [phone] Aug, [facility] [address] [facility] [id number] [address] [place] [phone] July, [facility] [address] [facility] [id number] [address] [place] [id number] July, [facility] [address] [id number] [address] [place] [id number] July, [facility] [place] [address] [id number] [place] [id number] July, [facility] [place] [address] [id number] [place] [id number] July, [facility] [place] [address] [id number] [place] [id number] July, [facility] [address] [id number] [address] [place] [id number] July, [facility] [place] [address] [id number] [place] [id number] Jun, Diabetes type 2, controlled E11.9 [facility] [place] [address] [id number] [place] [id number] Jun, [facility] [place] [address] [id number] [place] [id number] May, Diabetes type 1, uncontrolled E10.65 [facility] [place] [address] [id number] [place] [id number] May, [facility] [place] [address] [id number] [place] [id number] Apr, [facility] [place] [address] [id number] [place] [id number] Apr, [facility] [place] [address] [id number] [place] [id number] Mar, [facility] [place] [address] [id number] [place] [id number] Mar, [facility] [place] [address] [id number] [place] [id number] Mar, [facility] [place] [address] [id number] [place] [id number] Mar, Diabetes type 1, uncontrolled E10.65 [facility] [place] [address] [id number] [place] [id number] Feb, [facility] [place] [address] [id number] [place] [id number] Feb, [facility] [place] [address] [id number] [place] [id number] Feb, [facility] [place] [address] [facility] [id number] [id number] Jan, [facility] [place] [address] [id number] [place] [id number] Jan, Dysuria R30.0 and Acute cystitis with he maturia N30.01 [facility] [place] [address] [id number] [place] [id number] Jan, [facility] [address] [facility] [id number] [place] [id number] Dec, Gastroenteritis K52.9 and Headache, unsp ecified headache type R51 [facility] [place] [address] [facility] [id number] [place] [id number] Dec, [facility] [place] [address] [facility] [id number] [place] [id number] Dec, Chronic back pain 724.5 [facility] [place] [address] [facility] [id number] [place] [id number] Dec, [facility] [place] [address] [facility] [id number] [place] [id number] Nov, Chronic back pain 724.5 and Diabetes frank litus without mention of complication, type II or unspecified type, uncontrolled 250.02 [facility] [address] [facility] [id number] [place] [id number] Nov, [facility] [address] [facility] [id number] [place] [id number] Oct, [facility] [address] [facility] [id number] [place] [id number] Sep, Diabetes mellitus without mention of com plication, type II or unspecified type, uncontrolled 250.02 and Urinary tract infection 599.0 [facility] [address] [facility] [id number] [place] [id number] July, [facility] [address] [place] [id number] [address] [place] [address] Jun, [facility] [address] [facility] [id number] [address] [place] [address] Jun, [facility] [address] [facility] [id number] [place] [id number] May, [facility] [address] [place] [id number] [address] [place] [address] May, [facility] [id number] [place] [id number] May, [facility] [address] [id number] [address] [place] [address], [place] [address] May, [facility] [place] [address] [id number] [place] [id number] Mar, [facility] [address] [id number] [address] [place] [address], [place] [address] Mar, [facility] [address] [id number] [address] [place] [address], [place] [address] Mar, [facility] [place] [address] [id number] [place] [id number] Mar, [facility] [place] [address] [id number] [place] [id number] Feb, [facility] [address] [id number] [address] [place] [address], [place] [address] Feb, [facility] [place] [address] [id number] [place] [id number] Feb, [facility] [address] [id number] [address] [place] [address], [place] [address] Feb, [facility] [address] [facility] [id number] [address] [place] [address], [place] [address] Feb, [facility] [place] [address] [id number] [place] [id number] Feb, [facility] [place] [address] [id number] [place] [id number] Feb, [facility] [address] [id number] [address] [place] [address], [place] [address] Feb, [facility] [address] [id number] [address] [place] [address], [place] [address] Feb, [facility] [place] [address] [id number] [place] [id number] Jan, [facility] [address] [id number] [address] [place] [address], [place] [address] Jan, [facility] [place] [address] [id number] [place] [id number] Jan, [facility] [address] [id number] [facility] [address] Jan, [facility] [place] [address] [id number] [place] [id number] Dec, [facility] [address] [id number] [facility] [address] Dec, [facility] [address] [id number] [address] [place] [address], [place] [address] Dec, [facility] [address] [id number] [address] [place] [address], [place] [address] Dec, [facility] [place] [address] [id number] [place] [id number] Dec, [facility] [address] [id number] [address] [place] [address], [place] [address] Dec, [facility] [place] [address] [id number] [place] [id number] Nov, [facility] [address] [id number] [address] [place] [address], [place] [address] Nov, [facility] [place] [address] [id number] [place] [id number] Oct, [facility] [address] [id number] [address] [place] [address], [place] [address] Oct, [facility] [address] [id number] [address] [place] [address], [place] [address] Sep, [facility] [place] [address] [id number] [place] [id number] Sep, [facility] [place] [address] [id number] [place] [id number] Aug, [facility] [address] [id number] [address] [place] [address], [place] [address] Aug, [facility] [place] [address] [id number] [place] [id number] July, [facility] [address] [id number] [address] [place] [address], [place] [address] July, [facility] [place] [address] [id number] [place] [id number] July, [facility] [address] [id number] [address] [place] [address], [place] [address] July, [facility] [address] [id number] [address] [place] [address], [place] [address] July, [facility] [address] [id number] [address] [place] [address], [place] [address] Jun, [facility] [place] [address] [id number] [place] [id number] Jun, [facility] [place] [address] [id number] [place] [id number] Jun, [facility] [address] [id number] [address] [place] [address], [place] [address] Jun, [facility] [address] [id number] [address] [place] [address], [place] [address] Jun, [facility] [address] [id number] [address] [place] [address], [place] [address] May, [facility] [place] [address] [id number] [place] [id number] Apr, [facility] [address] [id number] [address] [place] [address], [place] [address] Apr, [facility] [place] [address] [id number] [place] [id number] Apr, [facility] [address] [id number] [address] [place] [address], [place] [address] Apr, [facility] [address] [id number] [address] [place] [address], [place] [address] Mar, [facility] [address] [id number] [address] [place] [address], [place] [address] Mar, [facility] [address] [id number] [address] [place] [address] Mar, [facility] [place] [address] [id number] [place] [id number] Mar, [facility] [address] [id number] [address] [place] [address], [place] [address] Mar, [facility] [address] [id number] [address] [place] [address], [place] [address] Mar, [facility] [address] [id number] [address] [place] [address], [place] [address] Feb, [facility] [place] [address] [id number] [place] [id number] Feb, [facility] [address] [facility] [id number] [address] [place] [address], [place] [address] Feb, [facility] [place] [address] [id number] [place] [id number] Feb, [facility] [address] [id number] [address] [place] [address] Feb, [facility] [place] [address] [id number] [place] [id number] Feb, [facility] [address] [facility] [id number] [address] [place] [address], [place] [address] Feb, [facility] [place] [address] [id number] [place] [id number] Jan, [facility] [address] [id number] [address] [place] [address] Jan, [facility] [address] [id number] [address] [place] [address], [place] [address] Dec, [facility] [place] [address] [id number] [place] [id number] Dec, [facility] [address] [id number] [address] [place] [address], [place] [address] Nov, [facility] [place] [address] [id number] [place] [id number] Oct, [facility] [place] [address] [id number] [place] [id number] Oct, [facility] [place] [address] [id number] [place] [id number] Sep, [facility] [address] [facility] [id number] [address] [place] [address] Sep, [facility] [place] [address] [id number] [place] [id number] Sep, [facility] [place] [address] [id number] [place] [id number] Sep, [facility] [place] [address] [id number] [place] [id number] Sep, [facility] [place] [address] [id number] [place] [id number] Sep, [facility] [place] [address] [id number] [place] [id number] Sep, [facility] [address] [facility] [id number] [address] [place] [address] Aug, [facility] [place] [address] [id number] [place] [id number] Aug, [facility] [address] [facility] [id number] [address] [place] [address] July, [facility] [place] [address] [id number] [place] [id number] July, [facility] [address] [facility] [id number] [address] [place] [address] July, [facility] [place] [address] [id number] [place] [id number] Jun, [facility] [place] [address] [id number] [place] [id number] Jun, [facility] [place] [address] [id number] [place] [id number] Jun, [facility] [address] [facility] [id number] [address] [place] [address] Jun, [facility] [place] [address] [id number] [place] [id number] May, [facility] [place] [address] [id number] [place] [id number] May, [facility] [address] [id number] [address] [place] [address] May, [facility] [place] [address] [id number] [place] [id number] Apr, [facility] [address] [id number] [address] [place] [address], [place] [address] Apr, [facility] [place] [address] [id number] [place] [id number] Apr, [facility] [place] [address] [id number] [place] [id number] Apr, [facility] [address] [facility] [id number] [address] [place] [address], [place] [address] Mar, [facility] [place] [address] [id number] [place] [id number] Mar, [facility] [place] [address] [id number] [place] [id number] Mar, [facility] [place] [address] [id number] [place] [id number] Feb, [facility] [address] [facility] [id number] [address] [place] [address], [place] [address] Feb, [facility] [place] [address] [id number] [place] [id number] Jan, [facility] [place] [address] [id number] [place] [id number] Jan, [facility] [address] [facility] [id number] [address] [place] [address] Jan, [facility] [address] [facility] [id number] [address] [place] [address] Jan, [facility] [place] [address] [id number] [place] [id number] Jan, [facility] [address] [id number] [address] [place] [address] Jan, [facility] [place] [address] [id number] [place] [id number] Dec, [facility] [address] [id number] [address] [place] [address] Dec, [facility] [place] [address] [id number] [place] [id number] Dec, [facility] [address] [id number] [address] [place] [address] Dec, [facility] [place] [address] [id number] [place] [id number] Dec, [facility] [place] [address] [id number] [place] [id number] Nov, [facility] [place] [address] [id number] [place] [id number] Nov, [facility] [place] [address] [id number] [place] [id number] Oct, [facility] [place] [address] [id number] [place] [id number] Oct, [facility] [place] [address] [id number] [place] [id number] Sep, [facility] [place] [address] [id number] [place] [id number] Sep, [facility] [place] [address] [id number] [place] [id number] Sep, [facility] [place] [address] [id number] [place] [id number] Aug, [facility] [place] [address] [id number] [place] [id number] Aug, [facility] [place] [address] [id number] [place] [id number] July, [facility] [place] [address] [id number] [place] [id number] July, [facility] [place] [address] [id number] [place] [id number] July, [facility] [place] [address] [id number] [place] [id number] July, [facility] [address] [facility] [id number] [address] [place] [address] Jun, [facility] [place] [address] [id number] [place] [id number] Jun, [facility] [place] [address] [id number] [place] [id number] Jun, [facility] [place] [address] [id number] [place] [id number] Jun, [facility] [place] [address] [id number] [place] [id number] May, [facility] [place] [address] [id number] [place] [id number] May, [facility] [place] [address] [id number] [place] [id number] Apr, [facility] [place] [address] [id number] [place] [id number] Apr, [facility] [place] [address] [id number] [place] [id number] Apr, [facility] [place] [address] [id number] [place] [id number] Apr, [facility] [place] [address] [id number] [place] [id number] Apr, [facility] [address] [facility] [id number] [address] [place] [address] Apr, [facility] [place] [address] [id number] [place] [id number] Apr, [facility] [place] [address] [id number] [place] [id number] Apr, [facility] [place] [address] [id number] [place] [id number] Mar, [facility] [place] [address] [id number] [address] [place] [address], [place] [address] 26 Feb, 2011 [facility] [address] [id number] [address] [place] [address], [place] [address] Feb, [facility] [address] [id number] [address] [place] [address], [place] [address] Feb, [facility] [address] [id number] [address] [place] [address], [place] [address] 05 Feb, 2011 [facility] [address] [id number] [address] [place] [address], [place] [address] Jan, [facility] [address] [id number] [address] [place] [address], [place] [address] Jan, [facility] [address] [id number] [address] [place] [address], [place] [address] Jan, [facility] [address] [id number] [address] [place] [address], [place] [address] Dec, [facility] [address] [id number] [address] [place] [address], [place] [address] 24 Dec, 2010 [facility] [address] [id number] [address] [place] [address], [place] [address] 17 Aug, 2010 [facility] [address] [id number] [address] [place] [address], [place] [address] 16 Aug, 2010 [facility] [address] [id number] [address] [place] [address], [place] [address] 30 Feb, 2010 [facility] [address] [id number] [address] [place] [address], [place] [address] Feb, [facility] [address] [id number] [address] [place] [address], [place] [address] 29 Jan, 2010 [facility] [address] [id number] [address] [place] [address], [place] [address] Jan, [facility] [address] [id number] [address] [place] [address], [place] [address] 28 Dec, 2009 [facility] [address] [id number] [address] [place] [address] Dec, [facility] [address] [id number] [address] [place] [address] Dec, [facility] [address] [id number] [address] [place] [address] May, [facility] [address] [id number] [address] [place] [address] Mar, [facility] [address] [id number] [address] [place] [address] Feb, [facility] [address] [id number] [address] [place] [address] Feb, [facility] [address] [id number] [address] [place] [address] Feb, [facility] [address] [id number] [address] [place] [address] Jan, [facility] [address] [id number] [address] [place] [address] Jan, [facility] [address] [id number] [address] [place] [address] Oct, [facility] [address] [id number] [address] [place] [address] July, [facility] [address] [id number] [address] [place] [address] Apr, [facility] [address] [id number] [address] [place] [address] Jan, [facility] [address] [id number] [address] [place] [address] Jan, IMMUNIZATIONS No Known Immunizations SOCIAL HISTORY [...] Hospitalization History surgeries, childbirth Hospitalization History [facility]- Possible Stroke Hospitalization History Hospital stay due to acute renal didier mabel 10/2018
--- OUTSIDE RECORDS SUMMARY | 2019-07-26 17:25 | XMS REPORT ---
Author Author Emelyn Trinidad Doctor Organization [facility] Address Unknown Phone Unavailable Care Team Providers Care Payable Processor Name Role Phone Migration, Doctor Unavailable Unavailable PROBLEMS Type Condition ICD9-CM Code TFS44-GC Code Onset Dates Condition S tatus SNOMED Code Problem RLS (restless legs syndrome) G25.81 A ctive 40165306 Problem Diabetic polyneuropathy associated with type 2 d iabetes mellitus E11.42 Active 96627305 Problem Essential hypertension I10 Active 94609546 Problem Encounter for immunization Z23 Act nicole 270607461 Problem Other chronic pain G89.29 Active 8 0977849 Problem Type 2 diabetes mellitus with hyperglycemia E11.65 Active 253623343901220 Problem Spinal stenosis, unspecified spinal region M48.00 Active 37415102 Problem Reactive depression F32.9 Active 43095518 Problem Hypoglycemia E16.2 Active 1777190 03 Problem assisted current use of insulin Z79.4 Active 662376291 Problem Falling R29.6 Active 309429449 Problem Type 2 diabetes mellitus with other specified complication E11.69 Active 55900053967599 Problem Arthritis of hand, right M19.041 Activ e 467833904 Problem Hyperlipidemia, unspecified E78.5 Ac tive 52361501 Problem Type 2 diabetes mellitus with other diabetic kid rory complication E11.29 Active 46916893 Problem Unsteady gait R26.81 Active 289545 008 Problem Moderate episode of recurrent major depressive disorder F33.1 Active 326751192 Problem Moderate episode of recurrent major depressive disorder F33.1 Active 160045434 ALLERGIES No Information ENCOUNTERS Encounter Location Date Diagnosis [place] [address] [id number] [place] [address] 14 Sep, 2019 [place] [address] [id number] [place] [address] 13 Jul, 2019 Essential hypertension I10 and Arthritis of hand, right M19.041 [place] [address] [id number] [place] [address] July, Spinal stenosis, unspecified spinal joesph on M48.00 [facility] [address] [place] [address] [id number] [place] [address] July, Type 2 diabetes mellitus with hyperglyce nadiya E11.65 [facility] [address] [id number] [address] [place] [address] July, [facility] [address] [place] [address] [id number] [place] [address] Jun, Essential hypertension I10 [facility] [place] [address] [id number] [place] [id number] Jun, [facility] [address] [place] [address] [id number] [place] [address] Jun, [facility] [place] [address] [id number] [place] [id number] Jun, Spinal stenosis, unspecified spinal joesph on M48.00 [facility] [address] [place] [address] [id number] [place] [address] Jun, Cellulitis of hand L03.119 and Essential hypertension I10 [facility] [address] [place] [address] [id number] [place] [address] May, [facility] [address] [place] [address] [id number] [place] [address] May, Laceration of right periocular area with out foreign body, initial encounter S01.111A and Essential hypertension I10 [facility] [address] [place] [address] [id number] [place] [address] May, [facility] [address] [place] [address] [id number] [place] [address] May, Spinal stenosis, unspecified spinal joesph on M48.00 [facility] [address] [place] [address] [id number] [place] [address] Apr, Type 2 diabetes mellitus with other spec ified complication E11.69 ; Essential hypertension I10 and Hyperlipidemia, unspecified E78.5 [facility] [address] [place] [address] [id number] [place] [address] 11 Apr, 2019 Spinal stenosis, unspecified spinal joesph on M48.00 [facility] [address] [id number] [address] [place] [address] Apr, [facility] [place] [address] [id number] [facility] [place] [address] Mar, Spinal stenosis, unspecified spinal joesph on M48.00 [facility] [place] [address] [id number] [place] [id number] Feb, Essential hypertension I10 ; Type 2 diab etes mellitus with hyperglycemia E11.65 ; Falling R29.6 and Spinal stenosis, unspecified spinal region M48.00 [facility] [place] [address] [id number] [place] [id number] Feb, Vertigo R42 and Laceration of right foot , initial encounter S91.311A [facility] [place] [address] [id number] [place] [id number] Jan, Essential hypertension I10 and Type 2 di abetes mellitus with hyperglycemia E11.65 [facility] [place] [address] [id number] [place] [id number] Jan, Spinal stenosis, unspecified spinal joesph on M48.00 [facility] [place] [address] [id number] [place] [id number] Jan, Essential hypertension I10 and Spinal st enosis, unspecified spinal region M48.00 [facility] [place] [address] [id number] [place] [id number] Jan, [facility] [place] [address] [id number] [place] [id number] Jan, [facility] [place] [address] [id number] [place] [id number] Dec, Type 2 diabetes mellitus with other spec ified complication E11.69 and Other chronic pain G89.29 [facility] [place] [address] [id number] [place] [id number] 18 Dec, 2018 Spinal stenosis, unspecified spinal joesph on M48.00 [facility] [address] [facility] [id number] [address] [place] [address] 14 Dec, 2018 Type 2 diabetes mellitus wit h other diabetic kidney complication E11.29 [facility] [address] [facility] [id number] [place] [id number] 14 Dec, 2018 Type 2 diabetes mellitus with other diab etic kidney complication E11.29 ; Fatigue, unspecified type R53.83 ; Moderate episode of recurrent major depressive disorder F33.1 and Acute cystitis with hematuria N30.01 [facility] [address] [facility] [id number] [place] [id number] 08 Dec, 2018 [facility] [address] [facility] [id number] [address] [place] [address] 07 Dec, 2018 Injury of head, initial enco unter S09.90XA ; Unsteady gait R26.81 and Hyperglycemia R73.9 [facility] [address] [facility] [id number] [place] [id number] Nov, Spinal stenosis, unspecified spinal joesph on M48.00 [facility] [address] [facility] [id number] [place] [id number] 17 Nov, 2018 Type 2 diabetes mellitus with other diab etic kidney complication E11.29 and 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 [facility] [address] [facility] [id number] [place] [id number] Nov, Acute renal failure, unspecified acute r enal failure type N17.9 [facility] [address] [address] [id number] [id number] Oct, Diabetic polyneuropathy associated with type 2 diabetes mellitus E11.42 ; Essential hypertension I10 ; Acute renal failure, unspecified acute renal failure type N17.9 and Spinal stenosis, unspecified spinal region M48.00 [facility] [address] [id number] [place] [id number] Oct, Essential hypertension I10 ; Diabetic po lyneuropathy associated with type 2 diabetes mellitus E11.42 and Acute renal failure, unspecified acute renal failure type N17.9 [facility] [address] [facility] [address] [id number] [place] [phone] Oct, [facility] [place] [address] [id number] [place] [id number] Oct, [facility] [place] [address] [id number] [place] [id number] Oct, [facility] [place] [address] [id number] [place] [id number] Oct, Essential hypertension I10 ; Diabetic po lyneuropathy associated with type 2 diabetes mellitus E11.42 and Acute renal failure, unspecified acute renal failure type N17.9 [facility] [place] [address] [id number] [place] [id number] Oct, Spinal stenosis, unspecified spinal joesph on M48.00 [facility] [place] [address] [id number] [place] [id number] Sep, Spinal stenosis, unspecified spinal joesph on M48.00 [facility] [place] [address] [id number] [place] [id number] Sep, Type 2 diabetes mellitus with other spec ified complication E11.69 ; Vertigo R42 and Spinal stenosis, unspecified spinal region M48.00 [facility] [place] [address] [id number] [place] [id number] Sep, Spinal stenosis, unspecified spinal joesph on M48.00 [facility] [place] [address] [id number] [place] [id number] Sep, Spinal stenosis, unspecified spinal joesph on M48.00 [facility] [place] [address] [id number] [place] [id number] Aug, Spinal stenosis, unspecified spinal joesph on M48.00 [facility] [place] [address] [id number] [place] [id number] July, Diabetic polyneuropathy associated with type 2 diabetes mellitus E11.42 [facility] [place] [address] [id number] [place] [id number] July, Spinal stenosis, unspecified spinal joesph on M48.00 [facility] [place] [address] [id number] [place] [id number] July, Spinal stenosis, unspecified spinal joesph on M48.00 [facility] [place] [address] [id number] [place] [id number] Jun, Spinal stenosis, unspecified spinal joesph on M48.00 [facility] [place] [address] [id number] [place] [id number] Jun, Diabetic polyneuropathy associated with type 2 diabetes mellitus E11.42 [facility] [place] [address] [id number] [place] [id number] May, Diabetic polyneuropathy associated with type 2 diabetes mellitus E11.42 [facility] [place] [address] [id number] [place] [id number] May, [facility] [place] [address] [id number] [place] [id number] May, Spinal stenosis, unspecified spinal joesph on M48.00 [facility] [place] [address] [id number] [place] [id number] Apr, Spinal stenosis, unspecified spinal joesph on M48.[address] [facility] [address] [id number] [address] Apr, [facility] [address] [id number] [address] [address] Apr, Puncture wound T14.8XXA ; Ab rasion T14.8XXA and Encounter for immunization Z23 [facility] [place] [address] [id number] [place] [id number] Mar, Spinal stenosis, unspecified spinal joesph on M48.00 [facility] [place] [address] [id number] [place] [id number] Feb, Spinal stenosis, unspecified spinal joesph on M48.00 [facility] [place] [address] [id number] [place] [id number] Jan, Type 2 diabetes mellitus with hyperglyce nadiya E11.65 ; Diabetes type 2, controlled E11.9 ; Spinal stenosis, unspecified spinal region M48.00 and Encounter for immunization Z23 [facility] [address] [id number] [address] [place] [address] Dec, Spinal stenosis, unspecified spinal region M48.00 [facility] [address] [id number] [address] [place] [address] Dec, [facility] [address] [facility] [id number] [address] [place] [address] Dec, [facility] [address] [id number] [address] [place] [address] Dec, [facility] [place] [address] [id number] [place] [id number] Nov, [facility] [place] [address] [id number] [place] [id number] Nov, Spinal stenosis, unspecified spinal joesph on M48.00 [facility] [place] [address] [id number] [place] [id number] Oct, Spinal stenosis, unspecified spinal joesph on M48.00 [facility] [place] [address] [id number] [place] [id number] Oct, Spinal stenosis, unspecified spinal joesph on M48.00 [facility] [place] [address] [id number] [place] [id number] Oct, [facility] [place] [address] [id number] [place] [id number] Oct, Diabetic polyneuropathy associated with type 2 diabetes mellitus E11.42 ; RLS (restless legs syndrome) G25.81 ; Spinal stenosis, unspecified spinal region M48.00 and Acute cystitis with hematuria N30.01 [facility] [place] [address] [id number] [place] [id number] Oct, [facility] [place] [address] [id number] [place] [id number] Oct, Spinal stenosis, unspecified spinal joesph on M48.00 [facility] [place] [address] [id number] [place] [id number] Sep, Diabetic polyneuropathy associated with type 2 diabetes mellitus E11.42 [facility] [address] [facility] [id number] [address] [place] [address] Sep, [facility] [place] [address] [id number] [place] [id number] Sep, Spinal stenosis, unspecified spinal joesph on M48.00 [facility] [address] [id number] [address] [place] [address] Aug, [facility] [place] [address] [id number] [place] [id number] Aug, Spinal stenosis, unspecified spinal joesph on M48.00 [facility] [place] [address] [id number] [place] [id number] Aug, Spinal stenosis, unspecified spinal joesph on M48.00 [facility] [place] [address] [id number] [place] [id number] July, [facility] [place] [address] [id number] [place] [id number] July, Diabetic polyneuropathy associated with type 2 diabetes mellitus E11.42 ; Type 2 diabetes mellitus with hyperglycemia E11.65 ; RLS (restless legs syndrome) G25.81 and Essential hypertension I10 [facility] [place] [address] [id number] [place] [id number] July, Spinal stenosis, unspecified spinal joesph on M48.00 [facility] [place] [address] [id number] [place] [id number] July, [facility] [place] [address] [id number] [place] [id number] Jun, Type 2 diabetes mellitus with other spec ified complication E11.69 [facility] [place] [address] [id number] [place] [id number] Jun, Spinal stenosis, unspecified spinal joesph on M48.00 [facility] [place] [address] [id number] [place] [id number] Jun, Hypoglycemia E16.2 [facility] [place] [address] [id number] [place] [id number] May, Hypoglycemia E16.2 ; Acute cystitis with hematuria N30.01 and Essential hypertension I10 [facility] [address] [facility] [id number] [address] [place] [address] May, [facility] [place] [address] [id number] [place] [id number] May, Spinal stenosis, unspecified spinal joesph on M48.00 [facility] [place] [address] [id number] [place] [id number] May, Reactive depression F32.9 [facility] [address] [id number] [place] [id number] May, [facility] [place] [address] [facility] [id number] [place] [id number] Apr, [facility] [address] [id number] [id number] Apr, [facility] [address] [id number][place] [id number] Apr, [facility] [address] [id number] [place] [id number] Apr, [facility] [place] [address] [facility] [id number] [place] [id number] Apr, Spinal stenosis, unspecified spinal joesph on M48.00 [facility] [address] [place] [id number] [place] [id number] Apr, Type 2 diabetes mellitus with other spec ified complication E11.69 ; Spinal stenosis, unspecified spinal region M48.00 ; Reactive depression F32.9 and Essential hypertension I10 [facility] [address] [id number] [place] [address] Apr, [facility] [place] [address] [facility] [id number] [place] [id number] Mar, Spinal stenosis, unspecified spinal joesph on M48.00 [facility] [address] [facility] [id number] [place] [id number] Feb, Acute non-recurrent maxillary sinusitis J01.00 and Essential hypertension I10 [facility] [place] [address] [id number] [place] [id number] Feb, Spinal stenosis, unspecified spinal joesph on M48.00 [facility] [place] [address] [id number] [place] [id number] Feb, Type 2 diabetes mellitus with other spec ified complication E11.69 [facility] [place] [address] [id number] [place] [id number] Feb, Type 2 diabetes mellitus with other spec ified complication E11.69 and Essential hypertension I10 [facility] [place] [address] [id number] [place] [id number] Feb, [facility] [place] [address] [id number] [place] [id number] Feb, [facility] [place] [address] [id number] [place] [id number] Jan, Spinal stenosis, unspecified spinal joesph on M48.00 [facility] [place] [address] [id number] [place] [id number] Jan, Diabetic polyneuropathy associated with type 2 diabetes mellitus E11.42 [facility] [place] [address] [id number] [place] [id number] Jan, Diabetic polyneuropathy associated with type 2 diabetes mellitus E11.42 [facility] [place] [address] [id number] [place] [id number] Jan, Type 2 diabetes mellitus with hyperglyce nadiya E11.65 ; Type 2 diabetes mellitus with other specified complication E11.69 ; Spinal stenosis, unspecified spinal region M48.00 and Essential hypertension I10 [facility] [place] [address] [id number] [place] [id number] Jan, Diabetic polyneuropathy associated with type 2 diabetes mellitus E11.42 [facility] [place] [address] [id number] [place] [id number] Dec, [facility] [place] [address] [id number] [place] [id number] Dec, Diabetic polyneuropathy associated with type 2 diabetes mellitus E11.42 ; Type 2 diabetes mellitus with other specified complication E11.69 ; Hyperlipidemia, unspecified E78.5 ; Thyroid disorder E07.9 and Thyroid disorder screening Z13.29 [facility] [place] [address] [id number] [place] [id number] Dec, Diabetic polyneuropathy associated with type 2 diabetes mellitus E11.42 [facility] [address] [facility] [id number] [address] [place] [address] 17 Dec, 2016 Diabetic polyneuropathy asso ciated with type 2 diabetes mellitus E11.42 [facility] [place] [address] [id number] [place] [id number] Dec, Spinal stenosis, unspecified spinal joesph on M48.00 [facility] [place] [address] [id number] [place] [id number] Dec, [facility] [place] [address] [id number] [place] [id number] 18 Nov, 2016 Diabetic polyneuropathy associated with type 2 diabetes mellitus E11.42 [facility] [place] [address] [id number] [place] [id number] 15 Nov, 2016 Other chronic pain G89.29 [facility] [place] [address] [id number] [place] [id number] 14 Nov, 2016 Spinal stenosis, unspecified spinal joesph on M48.00 [facility] [place] [address] [id number] [place] [id number] Oct, Spinal stenosis, unspecified spinal joesph on M48.00 ; Essential hypertension I10 ; RLS (restless legs syndrome) G25.81 and Diabetic polyneuropathy associated with type 2 diabetes mellitus E11.42 [facility] [place] [address] [id number] [place] [id number] Oct, Spinal stenosis, unspecified spinal joesph on M48.00 [facility] [place] [address] [id number] [place] [id number] Sep, Diabetic polyneuropathy associated with type 2 diabetes mellitus E11.42 ; RLS (restless legs syndrome) G25.81 ; Spinal stenosis, unspecified spinal region M48.00 and Essential hypertension I10 [facility] [place] [address] [id number] [place] [id number] Sep, [facility] [place] [address] [id number] [place] [id number] Sep, Spinal stenosis, unspecified spinal joesph on M48.00 [facility] [place] [address] [id number] [place] [id number] Sep, [facility] [place] [address] [id number] [place] [id number] Aug, Spinal stenosis, unspecified spinal joesph on M48.00 [facility] [address] [id number] [address] [place] [address] July, [facility] [place] [address] [id number] [place] [id number] July, Spinal stenosis, unspecified spinal joesph on M48.00 [facility] [place] [address] [id number] [place] [id number] Jun, Type 2 diabetes mellitus with hyperglyce nadiya E11.65 [facility] [place] [address] [id number] [place] [id number] Jun, Spinal stenosis, unspecified spinal joesph on M48.00 [facility] [place] [address] [id number] [place] [id number] May, Spinal stenosis, unspecified spinal joesph on M48.00 [facility] [place] [address] [id number] [place] [id number] Apr, Spinal stenosis, unspecified spinal joesph on M48.00 [facility] [address] [id number] [address] [place] [address] Mar, [facility] [place] [address] [id number] [place] [id number] Mar, Type 2 diabetes mellitus with hyperglyce nadiya E11.65 ; RLS (restless legs syndrome) G25.81 and Spinal stenosis, unspecified spinal region M48.00 [facility] [address] [facility] [id number] [address] [place] [address] Mar, [facility] [place] [address] [id number] [place] [id number] Mar, [facility] Stephen0 [facility] [id number] [place] [id number] Mar, [facility] [place] [address] [id number] [place] [id number] Feb, [facility] [address] [facility] [id number] [address] [place] [address] Feb, [facility] [place] [address] [id number] [place] [id number] Feb, [facility] [place] [address] [id number] [place] [id number] Feb, [facility] [address] [facility] [id number] [address] [place] [address] Feb, [facility] [address] [facility] [id number] [address] [place] [address] Feb, [facility] [place] [address] [id number] [place] [id number] Jan, [facility] [place] [address] [id number] [place] [id number] Dec, Diabetic polyneuropathy associated with type 2 diabetes mellitus E11.42 ; Other chronic pain G89.29 ; Essential hypertension I10 and Encounter for immunization Z23 [facility] [place] [address] [id number] [place] [id number] Dec, [facility] [address] [id number] [address] [place] [address] Nov, [facility] [place] [address] [id number] [place] [id number] Nov, [facility] [place] [address] [id number] [place] [id number] Nov, Diabetes type 2, controlled E11.9 [facility] [place] [address] [id number] [place] [id number] Nov, Diabetes type 2, controlled E11.9 ; Othe r chronic pain G89.29 ; Essential hypertension I10 ; Diabetic polyneuropathy associated with type 2 diabetes mellitus E11.42 and RLS (restless legs syndrome) G25.81 [facility] [address] [id number] [address] [place] [address] Nov, [facility] [address] [id number] [place] [id number] Oct, [facility] [place] [address] [id number] [place] [id number] Oct, [facility] [address] [id number] [place] [id number] Oct, [facility] [address] [id number] [address] [place] [address] Oct, [facility] [address] [id number] [place] [id number] Sep, [facility] [address] [id number] [place] [id number] Sep, [facility] [address] [facility] [id number] [address] [place] [address] Sep, Dental examination Z01.20 [facility] [address] [facility] [id number] [address] [place] [address] Aug, [facility] [address] [id number] [place] [id number] Aug, [facility] [address] [facility] [id number] [address] [place] [address] Aug, [facility] [address] [facility] [id number] [address] [place] [phone] July, [facility] [address] [facility] [id number] [address] [place] [phone] July, [facility] [address] [facility] [id number] [address] [place] [phone] July, [facility] [address] [id number] [place] [id number] July, [facility] [address] [id number] [place] [id number] July, [facility] [place] [address] [id number] [place] [id number] July, [facility] [address] [id number] [place] [id number] July, [facility] [place] [address] [id number] [place] [id number] Jun, Diabetes type 2, controlled E11.9 [facility] [place] [address] [id number] [place], [place] [id number] Jun, [facility] [place] [address] [id number] [place] [id number] May, Diabetes type 1, uncontrolled E10.65 [facility] [place] [address] [id number] [place] [id number] May, [facility] [place] [address] [id number] [place] [id number] Apr, [facility] [place] [address] [id number] [place] [id number] Apr, [facility] [place] [address] [id number] [place] [id number] Mar, [facility] [place] [address] [id number] [place] [id number] Mar, [facility] [place] [address] [id number] [place] [id number] Mar, [facility] [place] [address] [id number] [place] [id number] Mar, Diabetes type 1, uncontrolled E10.65 [facility] [place] [address] [id number] [place] [id number] Feb, [facility] [place] [address] [id number] [place] [id number] Feb, [facility] [place] [address] [id number] [place] [id number] Feb, [facility] [address] [facility] [id number] [place] [id number] Jan, [facility] [place] [address] [id number] [place] [id number] Jan, Dysuria R30.0 and Acute cystitis with he maturia N30.01 [facility] [address] [id number] [place] [id number] Jan, [facility] [address] [facility] [id number] [place] [id number] Dec, Gastroenteritis K52.9 and Headache, unsp ecified headache type R51 [facility] [address] [id number] [place] [id number] Dec, [facility] [address] [facility] [id number] [place] [id number] Dec, Chronic back pain 724.5 [facility] [address] [facility] [id number] [id number] Dec, [facility] [address] [facility] [id number] [place] [id number] Nov, Chronic back pain 724.5 and Diabetes frank litus without mention of complication, type II or unspecified type, uncontrolled 250.02 [facility] [address] [facility] [id number] [place] [id number] Nov, [facility] [address] [facility] [id number] [place] [id number] Oct, [facility] [address] [facility] [id number] [place] [id number] Sep, Diabetes mellitus without mention of com plication, type II or unspecified type, uncontrolled 250.02 and Urinary tract infection 599.0 [facility] [address] [facility] [id number] [place] [id number] July, [facility] [id number] [place] [address] Jun, [facility] [address] [facility] [id number] [address] [place] [address] Jun, [facility] [address] [facility] [id number] [place] [id number] May, [facility] [address] [id number] [address] [place] [address], [place] [address] May, [facility] [place] [address] [id number] [place] [id number] May, [facility] [address] [id number] [address] [place] [address], [place] [address] May, [facility] [place] [address] [id number] [place] [id number] Mar, [facility] [address] [id number] [address] [place] [address], [place] [address] Mar, [facility] [address] [id number] [address] [place] [address], [place] [address] Mar, [facility] [place] [address] [id number] [place] [id number] Mar, [facility] [place] [address] [id number] [place] [id number] Feb, [facility] [address] [id number] [address] [place] [address], [place] [address] Feb, [facility] [place] [address] [id number] [place] [id number] Feb, [facility] [address] [id number] [address] [place] [address], [place] [address] Feb, [facility] [address] [id number] [address] [place] [address], [place] [address] Feb, [facility] [place] [address] [id number] [place] [id number] Feb, [facility] [place] [address] [id number] [place] [id number] Feb, [facility] [address] [id number] [address] [place] [address], [place] [address] Feb, [facility] [address] [id number] [address] [place] [address], [place] [address] Feb, [facility] [place] [address] [id number] [place] [id number] Jan, [facility] [address] [id number] [facility] [place] [address] Jan, [facility] [place] [address] [id number] [place] [id number] Jan, [facility] [address] [id number] [facility] [place] [address] Jan, [facility] [place] [address] [id number] [place] [id number] Dec, [facility] [address] [id number] [address] [place] [address], [place] [address] Dec, [facility] [address] [id number] [address] [place] [address], [place] [address] Dec, [facility] [address] [id number] [address] [place] [address], [place] [address] Dec, [facility] [address] [id number] [place] [id number] Dec, [facility] [address] [id number] [address] [place] [address], [place] [address] Dec, [facility] [place] [address] [id number] [place] [id number] Nov, [facility] [address] [id number] [address] [place] [address], [place] [address] Nov, [facility] [place] [address] [id number] [place] [id number] Oct, [facility] [address] [id number] [address] [place] [address], [place] [address] Oct, [facility] [address] [id number] [address] [place] [address], [place] [address] Sep, [facility] [place] [address] [id number] [place] [id number] Sep, [facility] [place] [address] [id number] [place] [id number] Aug, [facility] [address] [id number] [address] [place] [address], [place] [address] Aug, [facility] [place] [address] [id number] [place] [id number] July, [facility] [address] [id number] [address] [place] [address], [place] [address] July, [facility] [place] [address] [id number] [place] [id number] July, [facility] [address] [id number] [address] [place] [address], [place] [address] July, [facility] [address] [id number] [address] [place] [address], [place] [address] July, [facility] [address] [id number] [address] [place] [address], [place] [address] Jun, [facility] [place] [address] [id number] [place] [id number] Jun, [facility] [place] [address] [id number] [place] S [id number] Jun, [facility] [address] [id number] [address] [place] [address], [place] [address] Jun, [facility] [address] [id number] [address] [place] [address], [place] [address] Jun, [facility] [address] [id number] [address] [place] [address], [place] [address] May, [facility] [place] [address] [id number] [place] [id number] Apr, [facility] [address] [id number] [address] [place] [address], [place] [address] Apr, [facility] [place] [address] [id number] [place] [id number] Apr, [facility] [address] [id number] [address] [place] [address], [place] [address] Apr, [facility] [address] [id number] [address] [place] [address] Mar, [facility] [address] [id number] [address] [place] [address] Mar, [facility] [address] [id number] [address] [place] [address] Mar, [facility] [address] [id number] [place] [id number] Mar, [facility] [address] [id number] [address] [place] [address] Mar, [facility] [address] [id number] [address] [place] [address] Mar, [facility] [address] [id number] [address] [place] [address] Feb, [facility] [address] [id number] [place] [id number] Feb, [facility] [address] [id number] [address] [place] [address] Feb, [facility] [address] [id number] [place] [id number] Feb, [facility] [address] [id number] [address] [place] [address] Feb, [facility] [address] [id number] [place] [id number] Feb, [facility] [address] [id number] [address] [place] [address] Feb, [facility] [place] [address] [id number] [place] [id number] Jan, [facility] [address] [id number] [address] [place] [address], [place] [address] Jan, [facility] [address] [id number] [address] [place] [address], [place] [address] Dec, [facility] [address] [id number] [place] [id number] Dec, [facility] [address] [id number] [address] [place] [address], [place] [address] Nov, [facility] [place] [address] [id number] [place] [id number] Oct, [facility] [place] [address] [id number] [place] [id number] Oct, [facility] [place] [address] [id number] [place] [id number] Sep, [facility] [address] [id number] [address] [place] [address], [place] [address] Sep, [facility] [place] [address] [id number] [place] [id number] Sep, [facility] [place] [address] [id number] [place] [id number] Sep, [facility] [place] [address] [id number] [place] [id number] Sep, [facility] [place] [address] [id number] [place] K [place] [id number] Sep, [facility] [place] [address] [id number] [place] [id number] Sep, [facility] [address] [facility] [id number] [address] [place] [address], [place] [address] Aug, [facility] [place] [address] [id number] [place] [id number] Aug, [facility] [address] [facility] [id number] [address] [place] [address] July, [facility] [place] [address] [id number] [place] [id number] July, [facility] [address] [facility] [id number] [address] [place] [address], [place] [address] July, [facility] [place] [address] [id number] [place] [id number] Jun, [facility] [place] [address] [id number] [place] [id number] Jun, [facility] [place] [address] [id number] [place] [id number] Jun, [facility] [address] [facility] [id number] [address] [place] [address], [place] [address] Jun, [facility] [place] [address] [id number] [place] [id number] May, [facility] [place] [address] [id number] [place] S [id number] May, [facility] [address] [id number] [address] [place] [address], [place] [address] May, [facility] [place] [address] [id number] [place] [id number] Apr, [facility] [address] [facility] [id number] [address] [place] [address], [place] [address] Apr, [facility] [place] [address] [id number] [place] [id number] Apr, [facility] [place] [address] [id number] [place] [id number] Apr, [facility] [address] [facility] [id number] [address] [place] [address], [place] [address] Mar, [facility] [place] [address] [id number] [place] [id number] Mar, [facility] [place] [address] [id number] [place] [id number] Mar, [facility] [place] [address] [id number] [place] [id number] Feb, [facility] [address] [facility] [id number] [address] [place] [address], [place] [address] Feb, [facility] [place] [address] [id number] [place] [id number] Jan, [facility] [place] [address] [id number] [place] [id number] Jan, [facility] [address] [facility] [id number] [address] [place] [address] Jan, [facility] [address] [id number] [place] [address] Jan, [facility] [place] [address] [id number] [place] [id number] Jan, [facility] [address] [id number] [place] [address] Jan, [facility] [place] [address] [id number] [place] [id number] Dec, [facility] [address] [id number] [place] [address] Dec, [facility] [place] [address] [id number] [place] [id number] Dec, [facility] [address] [id number] [place] [address] Dec, [facility] [place] [address] [id number] [place] [id number] Dec, [facility] [place] [address] [id number] [place] [id number] Nov, [facility] [place] [address] [id number] [place] [id number] Nov, [facility] [place] [address] [id number] [place] [id number] Oct, [facility] [place] [address] [id number] [place] [id number] Oct, [facility] [place] [address] [id number] [place] [id number] Sep, [facility] [place] [address] [id number] [place] [id number] Sep, [facility] [place] [address] [id number] [place] [id number] Sep, [facility] [place] [address] [id number] [place] [id number] Aug, [facility] [place] [address] [id number] [place] S [id number] Aug, [facility] [place] [address] [id number] [place] [id number] July, [facility] [place] [address] [id number] [place] [id number] July, [facility] [place] [address] [id number] [place] [id number] July, [facility] [place] [address] [id number] [place] [id number] July, [facility] [address] [facility] [id number] [address] [place] [address] Jun, [facility] [place] [address] [id number] [place] [id number] Jun, [facility] [place] [address] [id number] [place] [id number] Jun, [facility] [place] [address] [id number] [place] [id number] Jun, [facility] [place] [address] [id number] [place] [id number] May, [facility] [place] [address] [id number] [place] K [place] [id number] May, [facility] [place] [address] [id number] [place] [id number] Apr, [facility] [place] [address] [id number] [place] [id number] Apr, [facility] [place] [address] [id number] [place] [id number] Apr, [facility] [place] [address] [id number] [place] [id number] Apr, [facility] [place] [address] [id number] [place] [id number] Apr, [facility] [address] [facility] [id number] [address] [place] [address] Apr, [facility] [place] [address] [id number] [place] [id number] Apr, [facility] [place] [address] [id number] [place] [id number] Apr, [facility] [address] [id number] [place] [id number] Mar, [facility] [address] [id number] [address] [place] [address], [place] [address] Feb, [facility] [address] [id number] [address] [place] [address], [place] [address] Feb, [facility] [address] [id number] [address] [place] [address], [place] [address] Feb, [facility] [address] [id number] [address] [place] [address], [place] [address] Feb, [facility] [address] [id number] [address] [place] [address], [place] [address] Jan, [facility] [address] [id number] [address] [place] [address], [place] [address] Jan, [facility] [address] [id number] [address] [place] [address], [place] [address] Jan, [facility] [address] [id number] [address] [place] [address], [place] [address] Dec, [facility] [address] [id number] [address] [place] [address], [place] [address] Dec, [facility] [address] [id number] [address] [place] [address], [place] [address] Aug, [facility] [address] [id number] [address] [place] [address] Aug, [facility] [address] [id number] [address] [place] [address], [place] [address] Feb, [facility] [address] [id number] [address] [place] [address], [place] [address] Feb, [facility] [address] [id number] [address] [place] [address] Jan, [facility] [address] [id number] [address] [place] [address], [place] [address] Jan, [facility] [address] [id number] [address] [place] [address], [place] [address] Dec, [facility] [address] [id number] [address] [place] [address], [place] [address] Dec, [facility] [address] [id number] [address] [place] [address], [place] [address] Dec, [facility] [address] [id number] [address] [place] [address], [place] [address] May, [facility] [address] [id number] [address] [place] [address], [place] [address] Mar, [facility] [address] [id number] [address] [place] [address], [place] [address] Feb, [facility] [address] [id number] [address] [place] [address], [place] [address] Feb, [facility] [address] [id number] [address] [place] [address], [place] [address] Feb, [facility] [address] [id number] [address] [place] [address], [place] [address] Jan, [facility] [address] [id number] [address] [place] [address], [place] [address] Jan, [facility] [address] [id number] [address] [place] [address], [place] [address] Oct, [facility] [address] [id number] [address] [place] [address], [place] [address] July, [facility] [address] [id number] [address] [place] [address], [place] [address] Apr, [facility] [address] [id number] [address] [place] [address], [place] [address] Jan, [facility] [address] [id number] [place] [address] Jan, IMMUNIZATIONS No Known Immunizations SOCIAL HISTORY Never Assessed REASON FOR VISIT PLAN OF CARE VITAL SIGNS Height 64 in 2012-09-30 Weight 152.4 lbs 2012-09-30 Temperature 99.5 degrees Fahrenheit 2012-09-30 Heart Rate 84 bpm 2012-09-30 Respiratory Rate 16 2012-09-30 Blood pressure systolic 116 mmHg 2012-09-30 Blood pressure diastolic 78 mmHg 2012-09-30 MEDICATIONS Unknown Medications RESULTS No Results PROCEDURES [...] History surgeries, childbirth Hospitalization History [facility] [place]- Possible Stroke Hospitalization History Hospital stay due to acute renal didier lure 10/2018
--- OUTSIDE RECORDS SUMMARY | 2019-07-26 17:26 | XMS REPORT ---
Author Author Emelyn Lira [facility] Address [address] [place] [address] Care Team Providers Care Test Tube Maker Name Role Phone [place] Lira Unavailable PROBLEMS Type Condition ICD9-CM Code [id number] Code Onset Dates Condition S tatus SNOMED Code Problem Essential hypertension I10 Active 64573240 Problem RLS (restless legs syndrome) G25.81 A ctive 13760698 Problem Other chronic pain G89.29 Active 8 0472412 Problem Diabetic polyneuropathy associated with type 2 d iabetes mellitus E11.42 Active 98709714 Problem Spinal stenosis, unspecified spinal region M48.00 Active 85030480 Problem Encounter for immunization Z23 Act nicole 132834181 Problem Type 2 diabetes mellitus with other specified complication E11.69 Active 37273542108632 Problem Reactive depression F32.9 Active 54398506 Problem Hypoglycemia E16.2 Active 7867711 03 Problem Moderate episode of recurrent major depressive disorder F33.1 Active 299213577 Problem Hyperlipidemia, unspecified E78.5 Ac tive 82935319 Problem Falling R29.6 Active 307668958 Problem Type 2 diabetes mellitus with hyperglycemia E11.65 Active 538466240966501 Problem 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 Active 850361520 Problem Type 2 diabetes mellitus with other diabetic kid rory complication E11.29 Active 73323076 Problem Unsteady gait R26.81 Active 522678 008 Problem Moderate episode of recurrent major depressive disorder F33.1 Active 453838695 ALLERGIES No Information ENCOUNTERS Encounter Location Date Diagnosis [address] [id number] [place] [address] July, [address] [id number] [place] [address] Jun, Essential hypertension I10 [facility] [address] [id number] [place] [id number] 09 Jun, 2019 [facility] [address] [place] [address] [id number] [place] [address] Jun, [facility] [place] [address] [id number] [place] [id number] Jun, Spinal stenosis, unspecified spinal joesph on M48.00 [facility] [address] [place] [address] [id number] [place] [address] Jun, Cellulitis of hand L03.119 and Essential hypertension I10 [facility] [address] [place] [address] [id number] [place] [address] May, [facility] [address] [place] [address] [id number] [place] [address] May, Laceration of right periocular area with out foreign body, initial encounter S01.111A and Essential hypertension I10 [facility] [address] [place] [address] [id number] [place] [address] May, [facility] [address] [place] [address] [id number] [place] [address] May, Spinal stenosis, unspecified spinal joesph on M48.00 [facility] [address] [place] [address] [id number] [place] [address] Apr, Type 2 diabetes mellitus with other spec ified complication E11.69 ; Essential hypertension I10 and Hyperlipidemia, unspecified E78.5 [facility] [address] [place] [address] [id number] [place] [address] Apr, Spinal stenosis, unspecified spinal joesph on M48.00 [facility] [address] [id number] [facility] [place] [address] Apr, [facility] [address] [place] [address] [id number] [place] [address] Mar, Spinal stenosis, unspecified spinal joesph on M48.00 [facility] [place] [address] [id number] [place] [id number] Feb, Essential hypertension I10 ; Type 2 diab etes mellitus with hyperglycemia E11.65 ; Falling R29.6 and Spinal stenosis, unspecified spinal region M48.00 [facility] [address] [id number] [place] [id number] 04 Feb, 2019 Vertigo R42 and Laceration of right foot , initial encounter S91.311A [facility] [address] [id number] [place] [id number] Jan, Essential hypertension I10 and Type 2 di abetes mellitus with hyperglycemia E11.65 [facility] [address] [id number] [place] [id number] Jan, Spinal stenosis, unspecified spinal joesph on M48.00 [facility] [address] [id number] [place] [id number] Jan, Essential hypertension I10 and Spinal st enosis, unspecified spinal region M48.00 [facility] [address] [id number] [place] [id number] Jan, [facility] [address] [id number] [place] [id number] Jan, [facility] [address] [id number] [place] [id number] Dec, Type 2 diabetes mellitus with other spec ified complication E11.69 and Other chronic pain G89.29 [facility] [address] [id number] [place] [id number] Dec, Spinal stenosis, unspecified spinal joesph on M48.00 [facility] [address] [id number] [address] [address] 14 Dec, 2018 Type 2 diabetes mellitus wit h other diabetic kidney complication E11.29 [facility] [address] [id number] [place] [id number] 14 Dec, 2018 Type 2 diabetes mellitus with other diab etic kidney complication E11.29 ; Fatigue, unspecified type R53.83 ; Moderate episode of recurrent major depressive disorder F33.1 and Acute cystitis with hematuria N30.01 [facility] [address] [id number] [place] [id number] Dec, [facility] [address] [facility] [id number] [address] [address] Dec, Injury of head, initial enco unter S09.90XA ; Unsteady gait R26.81 and Hyperglycemia R73.9 [facility] [address] [id number] [place] [id number] Nov, Spinal stenosis, unspecified spinal joesph on M48.00 [facility] [address] [id number] [place] [id number] Nov, Type 2 diabetes mellitus with other diab etic kidney complication E11.29 and 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 [id number] [place] [id number] Nov, Acute renal failure, unspecified acute r enal failure type N17.9 [facility] [address] [id number] [id number] Oct, Diabetic polyneuropathy associated with type 2 diabetes mellitus E11.42 ; Essential hypertension I10 ; Acute renal failure, unspecified acute renal failure type N17.9 and Spinal stenosis, unspecified spinal region M48.00 [facility] [address] [facility] [id number] [place] [id number] Oct, Essential hypertension I10 ; Diabetic po lyneuropathy associated with type 2 diabetes mellitus E11.42 and Acute renal failure, unspecified acute renal failure type N17.9 [facility] [address] [id number] [id number] Oct, [facility] [address] [id number] [place] [id number] Oct, [facility] [address] [id number] [place] [id number] Oct, [facility] [address] [id number] [place] [id number] Oct, Essential hypertension I10 ; Diabetic po lyneuropathy associated with type 2 diabetes mellitus E11.42 and Acute renal failure, unspecified acute renal failure type N17.9 [facility] [place] [address] [id number] [place] [id number] Oct, Spinal stenosis, unspecified spinal joesph on M48.00 [facility] [place] [address] [id number] [place] [id number] Sep, Spinal stenosis, unspecified spinal joesph on M48.00 [facility] [place] [address] [id number] [place] [id number] Sep, Type 2 diabetes mellitus with other spec ified complication E11.69 ; Vertigo R42 and Spinal stenosis, unspecified spinal region M48.00 [facility] [place] [address] [id number] [place] [id number] Sep, Spinal stenosis, unspecified spinal joesph on M48.00 [facility] [place] [address] [id number] [place] [id number] Sep, Spinal stenosis, unspecified spinal joesph on M48.00 [facility] [place] [address] [id number] [place] [id number] Aug, Spinal stenosis, unspecified spinal joesph on M48.00 [facility] [place] [address] [id number] [place] [id number] July, Diabetic polyneuropathy associated with type 2 diabetes mellitus E11.42 [facility] [place] [address] [id number] [place] [id number] July, Spinal stenosis, unspecified spinal joesph on M48.00 [facility] [place] [address] [id number] [place] [id number] July, Spinal stenosis, unspecified spinal joesph on M48.00 [facility] [place] [address] [id number] [place] [id number] Jun, Spinal stenosis, unspecified spinal joesph on M48.00 [facility] [place] [address] [id number] [place] [id number] Jun, Diabetic polyneuropathy associated with type 2 diabetes mellitus E11.42 [facility] [place] [address] [id number] [place] [id number] May, Diabetic polyneuropathy associated with type 2 diabetes mellitus E11.42 [facility] [place] [address] [id number] [place] [id number] May, [facility] [place] [address] [id number] [place] [id number] May, Spinal stenosis, unspecified spinal joesph on M48.00 [facility] [place] [address] [id number] [place] [id number] Apr, Spinal stenosis, unspecified spinal joesph on M48.[address] [facility] [address] [id number] [id number] Apr, [facility] [address] [facility] [id number] [address] [place] [address] Apr, Puncture wound T14.8XXA ; Ab rasion T14.8XXA and Encounter for immunization Z23 [facility] [address] [id number] [place] [id number] Mar, Spinal stenosis, unspecified spinal joesph on M48.00 [facility] [address] [id number] [place] [id number] Feb, Spinal stenosis, unspecified spinal joesph on M48.00 [facility] [place] [address] [id number] [place] [id number] Jan, Type 2 diabetes mellitus with hyperglyce nadiya E11.65 ; Diabetes type 2, controlled E11.9 ; Spinal stenosis, unspecified spinal region M48.00 and Encounter for immunization Z23 [facility] [address] [place] [id number] [address] [place] [address] Dec, Spinal stenosis, unspecified spinal region M48.00 [facility] [address] [place] [id number] [address] [place] [address] Dec, [facility] [address] [place] [id number] [address] [place] [address] Dec, [facility] [address] [place] [id number] [address] [place] [address] Dec, [facility] [place] [address] [id number] [place] [id number] Nov, [facility] [place] [address] [id number] [place] [id number] Nov, Spinal stenosis, unspecified spinal joesph on M48.00 [facility] [place] [address] [id number] [place] [id number] Oct, Spinal stenosis, unspecified spinal joesph on M48.00 [facility] [place] [address] [id number] [place] [id number] Oct, Spinal stenosis, unspecified spinal joesph on M48.00 [facility] [place] [address] [id number] [place] [id number] Oct, [facility] [place] [address] [id number] [place] [id number] Oct, Diabetic polyneuropathy associated with type 2 diabetes mellitus E11.42 ; RLS (restless legs syndrome) G25.81 ; Spinal stenosis, unspecified spinal region M48.00 and Acute cystitis with hematuria N30.01 [facility] [place] [address] [id number] [place] [id number] Oct, [facility] [place] [address] [id number] [place] [id number] Oct, Spinal stenosis, unspecified spinal joesph on M48.00 [facility] [place] [address] [id number] [place] [id number] Sep, Diabetic polyneuropathy associated with type 2 diabetes mellitus E11.42 [facility] [address] [id number] [address] [place] [address] Sep, [facility] [place] [address] [id number] [place] [id number] Sep, Spinal stenosis, unspecified spinal joesph on M48.00 [facility] [address] [id number] [address] [place] [address] Aug, [facility] [place] [address] [id number] [place] [id number] Aug, Spinal stenosis, unspecified spinal joesph on M48.00 [facility] [place] [address] [id number] [place] [id number] Aug, Spinal stenosis, unspecified spinal joesph on M48.00 [facility] [place] [address] [id number] [place] [id number] July, [facility] [place] [address] [id number] [place] [id number] July, Diabetic polyneuropathy associated with type 2 diabetes mellitus E11.42 ; Type 2 diabetes mellitus with hyperglycemia E11.65 ; RLS (restless legs syndrome) G25.81 and Essential hypertension I10 [facility] [place] [address] [id number] [place] [id number] July, Spinal stenosis, unspecified spinal joesph on M48.00 [facility] [place] [address] [id number] [place] [id number] July, [facility] [place] [address] [id number] [place] [id number] Jun, Type 2 diabetes mellitus with other spec ified complication E11.69 [facility] [place] [address] [id number] [place] [id number] Jun, Spinal stenosis, unspecified spinal joesph on M48.00 [facility] [place] [address] [id number] [place] [id number] Jun, Hypoglycemia E16.2 [facility] [place] [address] [id number] [place] [id number] May, Hypoglycemia E16.2 ; Acute cystitis with hematuria N30.01 and Essential hypertension I10 [facility] [address] [id number] [address] [address] May, [facility] [place] [address] [id number] [place] [id number] May, Spinal stenosis, unspecified spinal joesph on M48.00 [facility] [place] [address] [id number] [place] [id number] May, Reactive depression F32.9 [facility] [place] [address] [id number] [place] [id number] May, [facility] [place] [address] [id number] [place] [id number] Apr, [facility] [address] [id number] [place] [id number] Apr, [facility] [address] [id number] [place] [id number] Apr, [facility] [place] [address] [id number] [place] [id number] Apr, [facility] [place] [address] [id number] [place] [id number] Apr, Spinal stenosis, unspecified spinal joesph on M48.00 [facility] [place] [address] [id number] [place] [id number] Apr, Type 2 diabetes mellitus with other spec ified complication E11.69 ; Spinal stenosis, unspecified spinal region M48.00 ; Reactive depression F32.9 and Essential hypertension I10 [facility] [address] [id number] [place] [id number] Apr, [facility] [place] [address] [id number] [place] [id number] Mar, Spinal stenosis, unspecified spinal joesph on M48.00 [facility] [place] [address] [id number] [place] [id number] Feb, Acute non-recurrent maxillary sinusitis J01.00 and Essential hypertension I10 [facility] [place] [address] [id number] [place] [id number] Feb, Spinal stenosis, unspecified spinal joesph on M48.00 [facility] [place] [address] [id number] [place] [id number] Feb, Type 2 diabetes mellitus with other spec ified complication E11.69 [facility] [place] [address] [id number] [place] [id number] Feb, Type 2 diabetes mellitus with other spec ified complication E11.69 and Essential hypertension I10 [facility] [place] [address] [id number] [place] [id number] Feb, [facility] [place] [address] [id number] [place] [id number] Feb, [facility] [place] [address] [id number] [place] [id number] Jan, Spinal stenosis, unspecified spinal joesph on M48.00 [facility] [place] [address] [id number] [place] [id number] Jan, Diabetic polyneuropathy associated with type 2 diabetes mellitus E11.42 [facility] [place] [address] [id number] [place] [id number] Jan, Diabetic polyneuropathy associated with type 2 diabetes mellitus E11.42 [facility] [place] [address] [id number] [place] [id number] Jan, Type 2 diabetes mellitus with hyperglyce nadiya E11.65 ; Type 2 diabetes mellitus with other specified complication E11.69 ; Spinal stenosis, unspecified spinal region M48.00 and Essential hypertension I10 [facility] [place] [address] [id number] [place] [id number] Jan, Diabetic polyneuropathy associated with type 2 diabetes mellitus E11.42 [facility] [place] [address] [id number] [place] [id number] Dec, [facility] [address] [id number] [place] [id number] Dec, Diabetic polyneuropathy associated with type 2 diabetes mellitus E11.42 ; Type 2 diabetes mellitus with other specified complication E11.69 ; Hyperlipidemia, unspecified E78.5 ; Thyroid disorder E07.9 and Thyroid disorder screening Z13.29 [facility] [address] [id number] [place] [id number] Dec, Diabetic polyneuropathy associated with type 2 diabetes mellitus E11.42 [facility] [address] [id number] [place] [address] Dec, Diabetic polyneuropathy asso ciated with type 2 diabetes mellitus E11.42 [facility] [address] [id number] [place] [id number] Dec, Spinal stenosis, unspecified spinal joesph on M48.00 [facility] [place] [address] [id number] [place] [id number] Dec, [facility] [place] [address] [id number] [place] [id number] 18 Nov, 2016 Diabetic polyneuropathy associated with type 2 diabetes mellitus E11.42 [facility] [place] [address] [id number] [place] [id number] 15 Nov, 2016 Other chronic pain G89.29 [facility] [place] [address] [id number] [place] [id number] 14 Nov, 2016 Spinal stenosis, unspecified spinal joesph on M48.00 [facility] [place] [address] [id number] [place] [id number] Oct, Spinal stenosis, unspecified spinal joesph on M48.00 ; Essential hypertension I10 ; RLS (restless legs syndrome) G25.81 and Diabetic polyneuropathy associated with type 2 diabetes mellitus E11.42 [facility] [place] [address] [id number] [place] [id number] Oct, Spinal stenosis, unspecified spinal joesph on M48.00 [facility] [place] [address] [id number] [place] [id number] Sep, Diabetic polyneuropathy associated with type 2 diabetes mellitus E11.42 ; RLS (restless legs syndrome) G25.81 ; Spinal stenosis, unspecified spinal region M48.00 and Essential hypertension I10 [facility] [place] [address] [id number] [place] [id number] Sep, [facility] [place] [address] [id number] [place] [id number] Sep, Spinal stenosis, unspecified spinal joesph on M48.00 [facility] [place] [address] [id number] [place] [id number] Sep, [facility] [place] [address] [id number] [place] [id number] Aug, Spinal stenosis, unspecified spinal joesph on M48.00 [facility] [address] [id number] [address] [place] [address] July, [facility] [place] [address] [id number] [place] [id number] July, Spinal stenosis, unspecified spinal joesph on M48.00 [facility] [place] [address] [id number] [place] [id number] Jun, Type 2 diabetes mellitus with hyperglyce nadiya E11.65 [facility] [place] [address] [id number] [place] [id number] Jun, Spinal stenosis, unspecified spinal joesph on M48.00 [facility] [place] [address] [id number] [place] [id number] May, Spinal stenosis, unspecified spinal joesph on M48.00 [facility] [place] [address] [id number] [place] [id number] Apr, Spinal stenosis, unspecified spinal joesph on M48.00 [facility] [address] [id number] [address] [place] [address] Mar, [facility] [place] [address] [id number] [place] [id number] Mar, Type 2 diabetes mellitus with hyperglyce nadiya E11.65 ; RLS (restless legs syndrome) G25.81 and Spinal stenosis, unspecified spinal region M48.00 [facility] [address] [id number] [address] [place] [address] Mar, [facility] [place] [address] [id number] [place] [id number] Mar, [facility] [address] [facility] [address] [id number] [id number] Mar, [facility] [place] [address] [id number] [place] [id number] Feb, [facility] [address] [id number] [address] [place] [address] Feb, [facility] [place] [address] [id number] [place] [id number] Feb, [facility] [place] [address] [id number] [place] [id number] Feb, [facility] [address] [facility] [id number] [address] [place] [address] Feb, [facility] [address] [facility] [id number] [address] [place] [address] Feb, [facility] [address] [id number] [place] [id number] Jan, [facility] [address] [id number] [place] [id number] Dec, Diabetic polyneuropathy associated with type 2 diabetes mellitus E11.42 ; Other chronic pain G89.29 ; Essential hypertension I10 and Encounter for immunization Z23 [facility] [address] [id number] [place] [id number] Dec, [facility] [address] [facility] [id number] [address] [place] [address] Nov, [facility] [address] [id number] [place] [id number] Nov, [facility] [address] [id number] [place] [id number] Nov, Diabetes type 2, controlled E11.9 [facility] [address] [id number] [place] [id number] Nov, Diabetes type 2, controlled E11.9 ; Othe r chronic pain G89.29 ; Essential hypertension I10 ; Diabetic polyneuropathy associated with type 2 diabetes mellitus E11.42 and RLS (restless legs syndrome) G25.81 [facility] [address] [facility] [id number] [address] [place] [address] Nov, [facility] [address] [id number] [place] [id number] Oct, [facility] [address] [id number] [place] [id number] Oct, [facility] [address] [id number] [place] [id number] Oct, [facility] [address] [id number] [address] [place] [address], [place] [address] Oct, [facility] [place] [address] [id number] [place] [id number] Sep, [facility] [place] [address] [id number] [place] [id number] Sep, [facility] [address] [id number] [address] [place] [address], [place] [address] Sep, Dental examination Z01.20 [facility] [address] [id number] [address] [place] [address], [place] [address] Aug, [facility] [place] [address] [id number] [place] [id number] Aug, [facility] [address] [id number] [address] [place] [address], [place] [address] Aug, [facility] [address] [id number] [address] [place] [address], [place] [address] July, [facility] [address] [id number] [address] [place] [address] July, [facility] [address] [id number] [address] [place] [address] July, [facility] [place] [address] [id number] [place] [id number] July, [facility] [place] [address] [id number] [place] [id number] July, [facility] [place] [address] [id number] [place] [id number] July, [facility] [address] [id number] [address] [place] [address], [place] [address] July, [facility] [place] [address] [id number] [place] [id number] Jun, Diabetes type 2, controlled E11.9 [facility] [place] [address] [id number] [place] [id number] Jun, [facility] [place] [address] [id number] [place] [id number] May, Diabetes type 1, uncontrolled E10.65 [facility] [place] [address] [id number] [place] [id number] May, [facility] [place] [address] [id number] [place] [id number] Apr, [facility] [place] [address] [id number] [place] [id number] Apr, [facility] [place] [address] [id number] [place] [id number] Mar, [facility] [place] [address] [id number] [place] [id number] Mar, [facility] [place] [address] [id number] [place] [id number] Mar, [facility] [place] [address] [id number] [place] [id number] Mar, Diabetes type 1, uncontrolled E10.65 [facility] [place] [address] [id number] [place] [id number] Feb, [facility] [place] [address] [id number] [place] [id number] Feb, [facility] [place] [address] [id number] [place] [id number] Feb, [facility] [place] [id number] [facility] [address] [id number] [id number] Jan, [facility] [place] [address] [id number] [place] [id number] Jan, Dysuria R30.0 and Acute cystitis with he maturia N30.01 [facility] [place] [address] [id number] [place] [id number] Jan, [facility] [place] [address] [id number] [place] [id number] Dec, Gastroenteritis K52.9 and Headache, unsp ecified headache type R51 [facility] [place] [address] [id number] [place] [id number] Dec, [facility] [place] [address] [id number] [place] [id number] Dec, Chronic back pain 724.5 Jenaro BURRELL [address] [id number] SALIMA COOPER [id number] Dec, [facility] [place] [address] [facility] [id number] [place] [id number] Nov, Chronic back pain 724.5 and Diabetes frank litus without mention of complication, type II or unspecified type, uncontrolled 250.02 [facility] [place] [address] [facility] [id number] [place] [id number] Nov, [facility] [place] [address] [facility] [id number] [place] [id number] Oct, [facility] [place] [address] [facility] [id number] [place] [id number] Sep, Diabetes mellitus without mention of com plication, type II or unspecified type, uncontrolled 250.02 and Urinary tract infection 599.0 [facility] [place] [address] [facility] [id number] [place] [id number] July, [facility] [address] [id number] [address] [place] [address] Jun, [facility] [address] [id number] [address] [place] [address] Jun, [facility] [place] [address] [facility] [id number] [place] [id number] May, [facility] [address] [facility] [id number] [address] [place] [address] May, [facility] [place] [address] [facility] [id number] [place] [id number] May, [facility] [address] [facility] [id number] [address] [place] [address] May, [facility] [place] [address] [facility] [id number] [place] [id number] Mar, [facility] [address] [facility] [id number] [address] [place] [address] Mar, [facility] [address] [id number] [address] [place] [address], [place] [address] Mar, [facility] [place] [address] [id number] [place] [id number] Mar, [facility] [place] [address] [id number] [place] [id number] Feb, [facility] [address] [id number] [address] [place] [address], [place] [address] Feb, [facility] [place] [address] [id number] [place] [id number] Feb, [facility] [address] [id number] [address] [place] [address], [place] [address] Feb, [facility] [address] [id number] [address] [place] [address], [place] [address] Feb, [facility] [place] [address] [id number] [place] [id number] Feb, [facility] [place] [address] [id number] [place] [id number] Feb, [facility] [address] [id number] [address] [place] [address], [place] [address] Feb, [facility] [address] [id number] [address] [place] [address], [place] [address] Feb, [facility] [place] [address] [id number] [place] [id number] Jan, [facility]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
--- OUTSIDE RECORDS SUMMARY | 2019-07-26 17:26 | XMS REPORT ---
Author Author Emelyn Lira [facility] Address [address] [place] [address] Care Team Providers Care Stenciler Name Role Phone [place] Lira Unavailable PROBLEMS Type Condition ICD9-CM Code CLM15-JG Code Onset Dates Condition S tatus SNOMED Code Problem Essential hypertension I10 Active 87425045 Problem RLS (restless legs syndrome) G25.81 A ctive 00179707 Problem Other chronic pain G89.29 Active 8 6381660 Problem Diabetic polyneuropathy associated with type 2 d iabetes mellitus E11.42 Active 80449414 Problem Spinal stenosis, unspecified spinal region M48.00 Active 85248383 Problem Encounter for immunization Z23 Act nicole 585744127 Problem Type 2 diabetes mellitus with other specified complication E11.69 Active 66847303274711 Problem Reactive depression F32.9 Active 51568035 Problem Hypoglycemia E16.2 Active 9619987 03 Problem Moderate episode of recurrent major depressive disorder F33.1 Active 494832481 Problem Hyperlipidemia, unspecified E78.5 Ac tive 31946360 Problem Falling R29.6 Active 274818670 Problem Type 2 diabetes mellitus with hyperglycemia E11.65 Active 040026610907842 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 Active 385709181 Problem Type 2 diabetes mellitus with other diabetic kid rory complication E11.29 Active 54318915 Problem Unsteady gait R26.81 Active 512717 008 Problem Moderate episode of recurrent major depressive disorder F33.1 Active 516286412 ALLERGIES No Information ENCOUNTERS Encounter Location Date Diagnosis [address] [id number] [place] [address] July, [address] [id number] [place] [address] Jun, Essential hypertension I10 [facility] [address] [id number] [place] [id number] 09 Jun, 2019 [facility] [address] [place] [address] [id number] [place] [address] Jun, [facility] [place] [address] [id number] [place] [id number] Jun, Spinal stenosis, unspecified spinal joesph on M48.00 [facility] [address] [place] [address] [id number] [place] [address] Jun, Cellulitis of hand L03.119 and Essential hypertension I10 [facility] [address] [place] [address] [id number] [place] [address] May, [facility] [address] [place] [address] [id number] [place] [address] May, Laceration of right periocular area with out foreign body, initial encounter S01.111A and Essential hypertension I10 [facility] [address] [place] [address] [id number] [place] [address] May, [facility] [address] [place] [address] [id number] [place] [address] May, Spinal stenosis, unspecified spinal joesph on M48.00 [facility] [address] [place] [address] [id number] [place] [address] Apr, Type 2 diabetes mellitus with other spec ified complication E11.69 ; Essential hypertension I10 and Hyperlipidemia, unspecified E78.5 [facility] [address] [place] [address] [id number] [place] [address] Apr, Spinal stenosis, unspecified spinal joesph on M48.00 [facility] [place] [address] [id number] [place] [address] Apr, [facility] [address] [place] [address] [id number] [place] [address] Mar, Spinal stenosis, unspecified spinal joesph on M48.00 [facility] [place] [address] [id number] [place] [id number] Feb, Essential hypertension I10 ; Type 2 diab etes mellitus with hyperglycemia E11.65 ; Falling R29.6 and Spinal stenosis, unspecified spinal region M48.00 [facility] [place] [address] [id number] [place] [id number] 04 Feb, 2019 Vertigo R42 and Laceration of right foot , initial encounter S91.311A [facility] [place] [address] [id number] [place] [id number] Jan, Essential hypertension I10 and Type 2 di abetes mellitus with hyperglycemia E11.65 [facility] [place] [address] [id number] [place] [id number] Jan, Spinal stenosis, unspecified spinal joesph on M48.00 [facility] [place] [address] [id number] [place] [id number] Jan, Essential hypertension I10 and Sp[address] enosis, unspecified spinal region M48.00 [facility] [place] [address] [id number] [place] [id number] Jan, [facility] [place] [address] [id number] [place] [id number] Jan, [facility] [place] [address] [id number] [place] [id number] Dec, Type 2 diabetes mellitus with other spec ified complication E11.69 and Other chronic pain G89.29 [facility] [place] [address] [id number] [place] [id number] Dec, Spinal stenosis, unspecified spinal joesph on M48.00 [facility] [address] [id number] [place] [address] 14 Dec, 2018 Type 2 diabetes mellitus wit h other diabetic kidney complication E11.29 [facility] [place] [address] [id number] [place] [id number] 14 Dec, 2018 Type 2 diabetes mellitus with other diab etic kidney complication E11.29 ; Fatigue, unspecified type R53.83 ; Moderate episode of recurrent major depressive disorder F33.1 and Acute cystitis with hematuria N30.01 [facility] [place] [address] [id number] [place] [id number] Dec, [facility] [address] [facility] [id number] [place] [address] Dec, Injury of head, initial enco unter S09.90XA ; Unsteady gait R26.81 and Hyperglycemia R73.9 [facility] [place] [address] [id number] [place] [id number] Nov, Spinal stenosis, unspecified spinal joesph on M48.00 [facility] [place] [address] [id number] [place] [id number] Nov, Type 2 diabetes mellitus with other diab etic kidney complication E11.29 and 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 [id number] [place] [id number] Nov, Acute renal failure, unspecified acute r enal failure type N17.9 [facility] [address] [id number] [id number] Oct, Diabetic polyneuropathy associated with type 2 diabetes mellitus E11.42 ; Essential hypertension I10 ; Acute renal failure, unspecified acute renal failure type N17.9 and Spinal stenosis, unspecified spinal region M48.00 [facility] [place] [address] [facility] [id number] [place] [id number] Oct, Essential hypertension I10 ; Diabetic po lyneuropathy associated with type 2 diabetes mellitus E11.42 and Acute renal failure, unspecified acute renal failure type N17.9 [facility] [address] [id number] [place] [id number] Oct, [facility] [place] [address] [id number] [place] [id number] Oct, [facility] [place] [address] [id number] [place] [id number] Oct, [facility] [place] [address] [id number] [place] [id number] Oct, Essential hypertension I10 ; Diabetic po lyneuropathy associated with type 2 diabetes mellitus E11.42 and Acute renal failure, unspecified acute renal failure type N17.9 [facility] [place] [address] [id number] [place] [id number] Oct, Spinal stenosis, unspecified spinal joesph on M48.00 [facility] [place] [address] [id number] [place] [id number] Sep, Spinal stenosis, unspecified spinal joesph on M48.00 [facility] [place] [address] [id number] [place] [id number] Sep, Type 2 diabetes mellitus with other spec ified complication E11.69 ; Vertigo R42 and Spinal stenosis, unspecified spinal region M48.00 [facility] [place] [address] [id number] [place] [id number] Sep, Spinal stenosis, unspecified spinal joesph on M48.00 [facility] [place] [address] [id number] [place] [id number] Sep, Spinal stenosis, unspecified spinal joesph on M48.00 [facility] [place] [address] [id number] [place] [id number] Aug, Spinal stenosis, unspecified spinal joesph on M48.00 [facility] [place] [address] [id number] [place] [id number] July, Diabetic polyneuropathy associated with type 2 diabetes mellitus E11.42 [facility] [place] [address] [id number] [place] [id number] July, Spinal stenosis, unspecified spinal joesph on M48.00 [facility] [place] [address] [id number] [place] [id number] July, Spinal stenosis, unspecified spinal joesph on M48.00 [facility] [place] [address] [id number] [place] [id number] Jun, Spinal stenosis, unspecified spinal joesph on M48.00 [facility] [place] [address] [id number] [place] [id number] Jun, Diabetic polyneuropathy associated with type 2 diabetes mellitus E11.42 [facility] [place] [address] [id number] [place] [id number] May, Diabetic polyneuropathy associated with type 2 diabetes mellitus E11.42 [facility] [place] [address] [id number] [place] [id number] May, [facility] [place] [address] [id number] [place] [id number] May, Spinal stenosis, unspecified spinal joesph on M48.00 [facility] [place] [address] [id number] [place] [id number] Apr, Spinal stenosis, unspecified spinal joesph on M48.[address] [facility] [address] [id number] [place] [id number] Apr, [facility] [address] [facility] [id number] [address] [place] [address] Apr, Puncture wound T14.8XXA ; Ab rasion T14.8XXA and Encounter for immunization Z23 [facility] [place] [address] [id number] [place] [id number] Mar, Spinal stenosis, unspecified spinal joesph on M48.00 [facility] [place] [address] [id number] [place] [id number] Feb, Spinal stenosis, unspecified spinal joesph on M48.00 [facility] [place] [address] [id number] [place] [id number] Jan, Type 2 diabetes mellitus with hyperglyce nadiya E11.65 ; Diabetes type 2, controlled E11.9 ; Spinal stenosis, unspecified spinal region M48.00 and Encounter for immunization Z23 [facility] [address] [place] [id number] [address] [place] [address] Dec, Spinal stenosis, unspecified spinal region M48.00 [facility] [address] [place] [id number] [address] [place] [address] Dec, [facility] [address] [place] [id number] [address] [place] [address] Dec, [facility] [address] [place] [id number] [address] [place] [address] Dec, [facility] [place] [address] [id number] [place] [id number] Nov, [facility] [place] [address] [id number] [place] [id number] Nov, Spinal stenosis, unspecified spinal joesph on M48.00 [facility] [place] [address] [id number] [place] [id number] Oct, Spinal stenosis, unspecified spinal joesph on M48.00 [facility] [place] [address] [id number] [place] [id number] Oct, Spinal stenosis, unspecified spinal joesph on M48.00 [facility] [place] [address] [id number] [place] [id number] Oct, [facility] [place] [address] [id number] [place] [id number] Oct, Diabetic polyneuropathy associated with type 2 diabetes mellitus E11.42 ; RLS (restless legs syndrome) G25.81 ; Spinal stenosis, unspecified spinal region M48.00 and Acute cystitis with hematuria N30.01 [facility] [place] [address] [id number] [place] [id number] Oct, [facility] [place] [address] [id number] [place] [id number] Oct, Spinal stenosis, unspecified spinal joesph on M48.00 [facility] [place] [address] [id number] [place] [id number] Sep, Diabetic polyneuropathy associated with type 2 diabetes mellitus E11.42 [facility] [place] [address] [id number] [address] [place] [address] Sep, [facility] [place] [address] [id number] [place] [id number] Sep, Spinal stenosis, unspecified spinal joesph on M48.00 [facility] [place] [address] [id number] [address] [place] [address] Aug, [facility] [place] [address] [id number] [place] [id number] Aug, Spinal stenosis, unspecified spinal joesph on M48.00 [facility] [place] [address] [id number] [place] [id number] Aug, Spinal stenosis, unspecified spinal joesph on M48.00 [facility] [place] [address] [id number] [place] [id number] July, [facility] [place] [address] [id number] [place] [id number] July, Diabetic polyneuropathy associated with type 2 diabetes mellitus E11.42 ; Type 2 diabetes mellitus with hyperglycemia E11.65 ; RLS (restless legs syndrome) G25.81 and Essential hypertension I10 [facility] [place] [address] [id number] [place] [id number] July, Spinal stenosis, unspecified spinal joesph on M48.00 [facility] [place] [address] [id number] [place] [id number] July, [facility] [place] [address] [id number] [place] [id number] Jun, Type 2 diabetes mellitus with other spec ified complication E11.69 [facility] [place] [address] [id number] [place] [id number] Jun, Spinal stenosis, unspecified spinal joesph on M48.00 [facility] [place] [address] [id number] [place] [id number] Jun, Hypoglycemia E16.2 [facility] [place] [address] [id number] [place] [id number] May, Hypoglycemia E16.2 ; Acute cystitis with hematuria N30.01 and Essential hypertension I10 [facility] [address] [id number] [address] [address] May, [facility] [place] [address] [id number] [place] [id number] May, Spinal stenosis, unspecified spinal jeosph on M48.00 [facility] [place] [address] [id number] [place] [id number] May, Reactive depression F32.9 [facility] [place] [address] [id number] [place] [id number] May, [facility] [place] [address] [id number] [place] [id number] Apr, [facility] [address] [id number] [place] [id number] Apr, [facility] [address] [id number] [place] [id number] Apr, [facility] [place] [address] [id number] [place] [id number] Apr, [facility] [place] [address] [id number] [place] [id number] Apr, Spinal stenosis, unspecified spinal joesph on M48.00 [facility] [place] [address] [id number] [place] [id number] Apr, Type 2 diabetes mellitus with other spec ified complication E11.69 ; Spinal stenosis, unspecified spinal region M48.00 ; Reactive depression F32.9 and Essential hypertension I10 [facility] [address] [id number] [place] [id number] Apr, [facility] [place] [address] [id number] [place] [id number] Mar, Spinal stenosis, unspecified spinal joesph on M48.00 [facility] [place] [address] [id number] [place] [id number] Feb, Acute non-recurrent maxillary sinusitis J01.00 and Essential hypertension I10 [facility] [place] [address] [id number] [place] [id number] Feb, Spinal stenosis, unspecified spinal joesph on M48.00 [facility] [place] [address] [id number] [place] [id number] Feb, Type 2 diabetes mellitus with other spec ified complication E11.69 [facility] [place] [address] [id number] [place] [id number] Feb, Type 2 diabetes mellitus with other spec ified complication E11.69 and Essential hypertension I10 [facility] [place] [address] [id number] [place] [id number] Feb, [facility] [place] [address] [id number] [place] [id number] Feb, [facility] [place] [address] [id number] [place] [id number] Jan, Spinal stenosis, unspecified spinal joesph on M48.00 [facility] [place] [address] [id number] [place] [id number] Jan, Diabetic polyneuropathy associated with type 2 diabetes mellitus E11.42 [facility] [place] [address] [id number] [place] [id number] Jan, Diabetic polyneuropathy associated with type 2 diabetes mellitus E11.42 [facility] [place] [address] [id number] [place] [id number] Jan, Type 2 diabetes mellitus with hyperglyce nadiya E11.65 ; Type 2 diabetes mellitus with other specified complication E11.69 ; Spinal stenosis, unspecified spinal region M48.00 and Essential hypertension I10 [facility] [place] [address] [id number] [place] [id number] Jan, Diabetic polyneuropathy associated with type 2 diabetes mellitus E11.42 [facility] [place] [address] [id number] [place] [id number] Dec, [facility] [place] [address] [id number] [place] [id number] Dec, Diabetic polyneuropathy associated with type 2 diabetes mellitus E11.42 ; Type 2 diabetes mellitus with other specified complication E11.69 ; Hyperlipidemia, unspecified E78.5 ; Thyroid disorder E07.9 and Thyroid disorder screening Z13.29 [facility] [place] [address] [id number] [place] [id number] Dec, Diabetic polyneuropathy associated with type 2 diabetes mellitus E11.42 [facility] [address] [id number] [address] [address] Dec, Diabetic polyneuropathy asso ciated with type 2 diabetes mellitus E11.42 [facility] [place] [address] [id number] [place] [id number] Dec, Spinal stenosis, unspecified spinal joesph on M48.00 [facility] [place] [address] [id number] [place] [id number] Dec, [facility] [place] [address] [id number] [place] [id number] 18 Nov, 2016 Diabetic polyneuropathy associated with type 2 diabetes mellitus E11.42 [facility] [place] [address] [id number] [place] [id number] 15 Nov, 2016 Other chronic pain G89.29 [facility] [place] [address] [id number] [place] [id number] 14 Nov, 2016 Spinal stenosis, unspecified spinal joesph on M48.00 [facility] [place] [address] [id number] [place] [id number] Oct, Spinal stenosis, unspecified spinal joesph on M48.00 ; Essential hypertension I10 ; RLS (restless legs syndrome) G25.81 and Diabetic polyneuropathy associated with type 2 diabetes mellitus E11.42 [facility] [place] [address] [id number] [place] [id number] Oct, Spinal stenosis, unspecified spinal joesph on M48.00 [facility] [place] [address] [id number] [place] [id number] Sep, Diabetic polyneuropathy associated with type 2 diabetes mellitus E11.42 ; RLS (restless legs syndrome) G25.81 ; Spinal stenosis, unspecified spinal region M48.00 and Essential hypertension I10 [facility] [place] [address] [id number] [place] [id number] Sep, [facility] [place] [address] [id number] [place] [id number] Sep, Spinal stenosis, unspecified spinal joesph on M48.00 [facility] [place] [address] [id number] [place] [id number] Sep, [facility] [place] [address] [id number] [place] [id number] Aug, Spinal stenosis, unspecified spinal joesph on M48.00 [facility] [place] [address] [id number] [address] [place] [address] July, [facility] [place] [address] [id number] [place] [id number] July, Spinal stenosis, unspecified spinal joesph on M48.00 [facility] [place] [address] [id number] [place] [id number] Jun, Type 2 diabetes mellitus with hyperglyce nadiya E11.65 [facility] [place] [address] [id number] [place] [id number] Jun, Spinal stenosis, unspecified spinal joesph on M48.00 [facility] [place] [address] [id number] [place] [id number] May, Spinal stenosis, unspecified spinal joesph on M48.00 [facility] [place] [address] [id number] [place] [id number] Apr, Spinal stenosis, unspecified spinal joesph on M48.00 [facility] [place] [address] [id number] [address] [place] [address] Mar, [facility] [place] [address] [id number] [place] [id number] Mar, Type 2 diabetes mellitus with hyperglyce nadiya E11.65 ; RLS (restless legs syndrome) G25.81 and Spinal stenosis, unspecified spinal region M48.00 [facility] [place] [address] [id number] [address] [place] [address] Mar, [facility] [place] [address] [id number] [place] [id number] Mar, [facility] [address] [facility] [address] [id number] [place] [id number] Mar, [facility] [place] [address] [id number] [place] [id number] Feb, [facility] [place] [address] [id number] [address] [place] [address] Feb, [facility] [place] [address] [id number] [place] [id number] Feb, [facility] [place] [address] [id number] [place] [id number] Feb, [facility] [address] [facility] [id number] [address] [place] [address] Feb, [facility] [address] [facility] [id number] [address] [place] [address] Feb, [facility] [address] [id number] [place] [id number] Jan, [facility] [place] [address] [id number] [place] [id number] Dec, Diabetic polyneuropathy associated with type 2 diabetes mellitus E11.42 ; Other chronic pain G89.29 ; Essential hypertension I10 and Encounter for immunization Z23 [facility] [address] [id number] [place] [id number] Dec, [facility] [address] [facility] [id number] [address] [place] [address] Nov, [facility] [address] [id number] [place] [id number] Nov, [facility] [place] [address] [id number] [place] [id number] Nov, Diabetes type 2, controlled E11.9 [facility] [address] [id number] [place] [id number] Nov, Diabetes type 2, controlled E11.9 ; Othe r chronic pain G89.29 ; Essential hypertension I10 ; Diabetic polyneuropathy associated with type 2 diabetes mellitus E11.42 and RLS (restless legs syndrome) G25.81 [facility] [address] [facility] [id number] [address] [place] [address] Nov, [facility] [address] [id number] [place] [id number] Oct, [facility] [address] [id number] [place] [id number] Oct, [facility] [address] [id number] [place] [id number] Oct, [facility] [address] [id number] [address] [place] [address], [place] [address] Oct, [facility] [place] [address] [id number] [place] [id number] Sep, [facility] [place] [address] [id number] [place] [id number] Sep, [facility] [address] [id number] [address] [place] [address], [place] [address] Sep, Dental examination Z01.20 [facility] [address] [id number] [address] [place] [address], [place] [address] Aug, [facility] [address] [id number] [place] [id number] Aug, [facility] [address] [id number] [address] [place] [address], [place] [id number] Aug, [facility] [address] [id number] [address] [place] [address], [place] [address] July, [facility] [address] [id number] [address] [place] [id number] July, [facility] [address] [id number] [address] [place] [id number] July, [facility] [address] [id number] [place] [id number] July, [facility] [address] [id number] [place] [id number] July, [facility] [address] [id number] [place] [id number] July, [facility] [address] [id number] [address] [place] [address], [place] [address] July, [facility] [address] [id number] [place] [id number] Jun, Diabetes type 2, controlled E11.9 [facility] [address] [id number] [place] [id number] Jun, [facility] [address] [id number] [place] [id number] May, Diabetes type 1, uncontrolled E10.65 [facility] [address] [id number] [place] [id number] May, [facility] [address] [id number] [place] [id number] Apr, [facility] [place] [address] [id number] [place] [id number] Apr, [facility] [place] [address] [id number] [place] [id number] Mar, [facility] [place] [address] [id number] [place] [id number] Mar, [facility] [place] [address] [id number] [place] [id number] Mar, [facility] [place] [address] [id number] [place] [id number] Mar, Diabetes type 1, uncontrolled E10.65 [facility] [place] [address] [id number] [place] [id number] Feb, [facility] [place] [address] [id number] [place] [id number] Feb, [facility] [place] [address] [id number] [place] [id number] Feb, [facility] [place] [id number] [facility] [address] [id number] [id number] Jan, [facility] [place] [address] [id number] [place] [id number] Jan, Dysuria R30.0 and Acute cystitis with he maturia N30.01 [facility] [place] [address] [id number] [place] [id number] Jan, [facility] [place] [address] [id number] [place] [id number] Dec, Gastroenteritis K52.9 and Headache, unsp ecified headache type R51 [facility] [place] [address] [id number] [place] [id number] Dec, [facility] [place] [address] [id number] [place] [id number] Dec, Chronic back pain 724.5 Jenaro BURRELL [address] [id number] [place]IM[place] COOPER [id number] Dec, [facility] [place] [address] [facility] [id number] [place] [id number] Nov, Chronic back pain 724.5 and Diabetes frank litus without mention of complication, type II or unspecified type, uncontrolled 250.02 [facility] [place] [address] [facility] [id number] [place] [id number] Nov, [facility] [place] [address] [facility] [id number] [place] [id number] Oct, [facility] [place] [address] [facility] [id number] [place] [id number] Sep, Diabetes mellitus without mention of com plication, type II or unspecified type, uncontrolled 250.02 and Urinary tract infection 599.0 [facility] [place] [address] [facility] [id number] [place] [id number] July, [facility] [address] [id number] [address] [place] [address] Jun, [facility] [address] [id number] [address] [place] [address] Jun, [facility] [place] [address] [facility] [id number] [place] [id number] May, [facility] [address] [facility] [id number] [address] [place] [address] May, [facility] [place] [address] [facility] [id number] [place] [id number] May, [facility] [address] [facility] [id number] [address] [place] [address] May, [facility] [place] [address] [facility] [id number] [place] [id number] Mar, [facility] [address] [facility] [id number] [address] [place] [address] Mar, [facility] [address] [id number] [address] [place] [address], [place] [address] Mar, [facility] [place] [address] [id number] [place] [id number] Mar, [facility] [place] [address] [id number] [place] [id number] Feb, [facility] [address] [id number] [address] [place] [address], [place] [address] Feb, [facility] [place] [address] [id number] [place] [id number] Feb, [facility] [address] [id number] [address] [place] [address], [place] [address] Feb, [facility] [address] [id number] [address] [place] [address], [place] [address] Feb, [facility] [place] [address] [id number] [place] [id number] Feb, [facility] [place] [address] [id number] [place] [id number] Feb, [facility] [address]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
--- OUTSIDE RECORDS SUMMARY | 2019-07-26 17:26 | XMS REPORT ---
Author Author Emelyn Lira [facility] Address [address] [place] [address] Care Team Providers Care Community Relations Specialist Name Role Phone [place] Lira Unavailable PROBLEMS Type Condition ICD9-CM Code MBU10-CO Code Onset Dates Condition S tatus SNOMED Code Problem Essential hypertension I10 Active 27011675 Problem RLS (restless legs syndrome) G25.81 A ctive 19420772 Problem Other chronic pain G89.29 Active 8 5672559 Problem Diabetic polyneuropathy associated with type 2 d iabetes mellitus E11.42 Active 30400439 Problem Spinal stenosis, unspecified spinal region M48.00 Active 01135193 Problem Encounter for immunization Z23 Act nicole 587413388 Problem Type 2 diabetes mellitus with other specified complication E11.69 Active 77562012715459 Problem Reactive depression F32.9 Active 96956422 Problem Hypoglycemia E16.2 Active 6603355 03 Problem Moderate episode of recurrent major depressive disorder F33.1 Active 157829132 Problem Hyperlipidemia, unspecified E78.5 Ac tive 25726067 Problem Falling R29.6 Active 456774876 Problem Type 2 diabetes mellitus with hyperglycemia E11.65 Active 477934216172077 Problem 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 Active 286741583 Problem Type 2 diabetes mellitus with other diabetic kid rory complication E11.29 Active 37845800 Problem Unsteady gait R26.81 Active 066359 008 Problem Moderate episode of recurrent major depressive disorder F33.1 Active 578232418 ALLERGIES No Information ENCOUNTERS Encounter Location Date Diagnosis [address] [id number] [place] [address] July, [address] [id number] [place] [address] Jun, Essential hypertension I10 [facility] [place] [address] [id number] [place] [id number] 09 Jun, 2019 [facility] [address] [place] [address] [id number] [place] [address] Jun, [facility] [place] [address] [id number] [place] [id number] Jun, Spinal stenosis, unspecified spinal joeshp on M48.00 [facility] [address] [place] [address] [id number] [place] [address] Jun, Cellulitis of hand L03.119 and Essential hypertension I10 [facility] [address] [place] [address] [id number] [place] [address] May, [facility] [address] [place] [address] [id number] [place] [address] May, Laceration of right periocular area with out foreign body, initial encounter S01.111A and Essential hypertension I10 [facility] [address] [place] [address] [id number] [place] [address] May, [facility] [address] [place] [address] [id number] [place] [address] May, Spinal stenosis, unspecified spinal joesph on M48.00 [facility] [address] [place] [address] [id number] [place] [address] Apr, Type 2 diabetes mellitus with other spec ified complication E11.69 ; Essential hypertension I10 and Hyperlipidemia, unspecified E78.5 [facility] [address] [place] [address] [id number] [place] [address] Apr, Spinal stenosis, unspecified spinal joesph on M48.00 [facility] [address] [id number] [facility] [place] [address] Apr, [facility] [address] [place] [address] [id number] [place] [address] Mar, Spinal stenosis, unspecified spinal joesph on M48.00 [facility] [place] [address] [id number] [place] [id number] Feb, Essential hypertension I10 ; Type 2 diab etes mellitus with hyperglycemia E11.65 ; Falling R29.6 and Spinal stenosis, unspecified spinal region M48.00 [facility] [place] [address] [id number] [place] [id number] 04 Feb, 2019 Vertigo R42 and Laceration of right foot , initial encounter S91.311A [facility] [place] [address] [id number] [place] [id number] Jan, Essential hypertension I10 and Type 2 di abetes mellitus with hyperglycemia E11.65 [facility] [place] [address] [id number] [place] [id number] Jan, Spinal stenosis, unspecified spinal joesph on M48.00 [facility] [place] [address] [id number] [place] [id number] Jan, Essential hypertension I10 and Sp[address] st enosis, unspecified spinal region M48.00 [facility] [place] [address] [id number] [place] [id number] Jan, [facility] [place] [address] [id number] [place] [id number] Jan, [facility] [place] [address] [id number] [place] [id number] Dec, Type 2 diabetes mellitus with other spec ified complication E11.69 and Other chronic pain G89.29 [facility] [place] [address] [id number] [place] [id number] Dec, Spinal stenosis, unspecified spinal joesph on M48.00 [facility] [address] [id number] [place] [address] 14 Dec, 2018 Type 2 diabetes mellitus wit h other diabetic kidney complication E11.29 [facility] [place] [address] [id number] [place] [id number] 14 Dec, 2018 Type 2 diabetes mellitus with other diab etic kidney complication E11.29 ; Fatigue, unspecified type R53.83 ; Moderate episode of recurrent major depressive disorder F33.1 and Acute cystitis with hematuria N30.01 [facility] [place] [address] [id number] [place] [id number] Dec, [facility] [address] [facility] [id number] [address] [address] Dec, Injury of head, initial enco unter S09.90XA ; Unsteady gait R26.81 and Hyperglycemia R73.9 [facility] [place] [address] [id number] [place] [id number] Nov, Spinal stenosis, unspecified spinal joesph on M48.00 [facility] [place] [address] [id number] [place] [id number] Nov, Type 2 diabetes mellitus with other diab etic kidney complication E11.29 and 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 [place] [id number] [place] [id number] Nov, Acute renal failure, unspecified acute r enal failure type N17.[address] [facility] [address] [id number] [id number] Oct, Diabetic polyneuropathy associated with type 2 diabetes mellitus E11.42 ; Essential hypertension I10 ; Acute renal failure, unspecified acute renal failure type N17.9 and Spinal stenosis, unspecified spinal region M48.00 [facility] [place] [address] [facility] [place] [id number] [place] [id number] Oct, Essential hypertension I10 ; Diabetic po lyneuropathy associated with type 2 diabetes mellitus E11.42 and Acute renal failure, unspecified acute renal failure type N17.[address] [facility] [address] [id number] [id number] Oct, [facility] [place] [address] [id number] [place] [id number] Oct, [facility] [place] [address] [id number] [place] [id number] Oct, [facility] [place] [address] [id number] [place] [id number] Oct, Essential hypertension I10 ; Diabetic po lyneuropathy associated with type 2 diabetes mellitus E11.42 and Acute renal failure, unspecified acute renal failure type N17.9 [facility] [place] [address] [id number] [place] [id number] Oct, Spinal stenosis, unspecified spinal joesph on M48.00 [facility] [place] [address] [id number] [place] [id number] Sep, Spinal stenosis, unspecified spinal joesph on M48.00 [facility] [place] [address] [id number] [place] [id number] Sep, Type 2 diabetes mellitus with other spec ified complication E11.69 ; Vertigo R42 and Spinal stenosis, unspecified spinal region M48.00 [facility] [place] [address] [id number] [place] [id number] Sep, Spinal stenosis, unspecified spinal joesph on M48.00 [facility] [place] [address] [id number] [place] [id number] Sep, Spinal stenosis, unspecified spinal joesph on M48.00 [facility] [place] [address] [id number] [place] [id number] Aug, Spinal stenosis, unspecified spinal joesph on M48.00 [facility] [place] [address] [id number] [place] [id number] July, Diabetic polyneuropathy associated with type 2 diabetes mellitus E11.42 [facility] [place] [address] [id number] [place] [id number] July, Spinal stenosis, unspecified spinal joesph on M48.00 [facility] [place] [address] [id number] [place] [id number] July, Spinal stenosis, unspecified spinal joesph on M48.00 [facility] [place] [address] [id number] [place] [id number] Jun, Spinal stenosis, unspecified spinal joesph on M48.00 [facility] [place] [address] [id number] [place] [id number] Jun, Diabetic polyneuropathy associated with type 2 diabetes mellitus E11.42 [facility] [place] [address] [id number] [place] [id number] May, Diabetic polyneuropathy associated with type 2 diabetes mellitus E11.42 [facility] [place] [address] [id number] [place] [id number] May, [facility] [place] [address] [id number] [place] [id number] May, Spinal stenosis, unspecified spinal joesph on M48.00 [facility] [place] [address] [id number] [place] [id number] Apr, Spinal stenosis, unspecified spinal joesph on M48.[address] [facility] [address] [id number] [id number] Apr, [facility] [address] [facility] [id number] [address] [place] [address] Apr, Puncture wound T14.8XXA ; Ab rasion T14.8XXA and Encounter for immunization Z23 [facility] [place] [address] [id number] [place] [id number] Mar, Spinal stenosis, unspecified spinal joesph on M48.00 [facility] [place] [address] [id number] [place] [id number] Feb, Spinal stenosis, unspecified spinal joesph on M48.00 [facility] [place] [address] [id number] [place] [id number] Jan, Type 2 diabetes mellitus with hyperglyce nadiya E11.65 ; Diabetes type 2, controlled E11.9 ; Spinal stenosis, unspecified spinal region M48.00 and Encounter for immunization Z23 [facility] [address] [place] [id number] [address] [place] [address] Dec, Spinal stenosis, unspecified spinal region M48.00 [facility] [address] [place] [id number] [address] [place] [address] Dec, [facility] [address] [id number] [address] [place] [address] Dec, [facility] [address] [id number] [address] [place] [address] Dec, [facility] [place] [address] [id number] [place] [id number] Nov, [facility] [place] [address] [id number] [place] [id number] Nov, Spinal stenosis, unspecified spinal joesph on M48.00 [facility] [place] [address] [id number] [place] [id number] Oct, Spinal stenosis, unspecified spinal joesph on M48.00 [facility] [place] [address] [id number] [place] [id number] Oct, Spinal stenosis, unspecified spinal joesph on M48.00 [facility] [place] [address] [id number] [place] [id number] Oct, [facility] [place] [address] [id number] [place] [id number] Oct, Diabetic polyneuropathy associated with type 2 diabetes mellitus E11.42 ; RLS (restless legs syndrome) G25.81 ; Spinal stenosis, unspecified spinal region M48.00 and Acute cystitis with hematuria N30.01 [facility] [place] [address] [id number] [place] [id number] Oct, [facility] [place] [address] [id number] [place] [id number] Oct, Spinal stenosis, unspecified spinal joesph on M48.00 [facility] [place] [address] [id number] [place] [id number] Sep, Diabetic polyneuropathy associated with type 2 diabetes mellitus E11.42 [facility] [address] [id number] [address] [place] [address] Sep, [facility] [place] [address] [id number] [place] [id number] Sep, Spinal stenosis, unspecified spinal joesph on M48.00 [facility] [address] [id number] [address] [place] [address] Aug, [facility] [place] [address] [id number] [place] [id number] Aug, Spinal stenosis, unspecified spinal joesph on M48.00 [facility] [place] [address] [id number] [place] [id number] Aug, Spinal stenosis, unspecified spinal joesph on M48.00 [facility] [place] [address] [id number] [place] [id number] July, [facility] [place] [address] [id number] [place] [id number] July, Diabetic polyneuropathy associated with type 2 diabetes mellitus E11.42 ; Type 2 diabetes mellitus with hyperglycemia E11.65 ; RLS (restless legs syndrome) G25.81 and Essential hypertension I10 [facility] [place] [address] [id number] [place] [id number] July, Spinal stenosis, unspecified spinal joesph on M48.00 [facility] [place] [address] [id number] [place] [id number] July, [facility] [place] [address] [id number] [place] [id number] Jun, Type 2 diabetes mellitus with other spec ified complication E11.69 [facility] [place] [address] [id number] [place] [id number] Jun, Spinal stenosis, unspecified spinal joesph on M48.00 [facility] [place] [address] [id number] [place] [id number] Jun, Hypoglycemia E16.2 [facility] [place] [address] [id number] [place] [id number] May, Hypoglycemia E16.2 ; Acute cystitis with hematuria N30.01 and Essential hypertension I10 [facility] [address] [id number] [address] [address] May, [facility] [place] [address] [id number] [place] [id number] May, Spinal stenosis, unspecified spinal joesph on M48.00 [facility] [place] [address] [id number] [place] [id number] May, Reactive depression F32.9 [facility] [place] [address] [id number] [place] [id number] May, [facility] [place] [address] [id number] [place] [id number] Apr, [facility] [address] [id number] [place] [id number] Apr, [facility] [address] [id number] [place] [id number] Apr, [facility] [place] [address] [id number] [place] [id number] Apr, [facility] [place] [address] [id number] [place] [id number] Apr, Spinal stenosis, unspecified spinal joesph on M48.00 [facility] [place] [address] [id number] [place] [id number] Apr, Type 2 diabetes mellitus with other spec ified complication E11.69 ; Spinal stenosis, unspecified spinal region M48.00 ; Reactive depression F32.9 and Essential hypertension I10 [facility] [address] [id number] [place] [id number] Apr, [facility] [place] [address] [id number] [place] [id number] Mar, Spinal stenosis, unspecified spinal joesph on M48.00 [facility] [place] [address] [id number] [place] [id number] Feb, Acute non-recurrent maxillary sinusitis J01.00 and Essential hypertension I10 [facility] [place] [address] [id number] [place] [id number] Feb, Spinal stenosis, unspecified spinal joesph on M48.00 [facility] [place] [address] [id number] [place] [id number] Feb, Type 2 diabetes mellitus with other spec ified complication E11.69 [facility] [place] [address] [id number] [place] [id number] Feb, Type 2 diabetes mellitus with other spec ified complication E11.69 and Essential hypertension I10 [facility] [place] [address] [id number] [place] [id number] Feb, [facility] [place] [address] [id number] [place] [id number] Feb, [facility] [place] [address] [id number] [place] [id number] Jan, Spinal stenosis, unspecified spinal joesph on M48.00 [facility] [place] [address] [id number] [place] [id number] Jan, Diabetic polyneuropathy associated with type 2 diabetes mellitus E11.42 [facility] [place] [address] [id number] [place] [id number] Jan, Diabetic polyneuropathy associated with type 2 diabetes mellitus E11.42 [facility] [place] [address] [id number] [place] [id number] Jan, Type 2 diabetes mellitus with hyperglyce nadiya E11.65 ; Type 2 diabetes mellitus with other specified complication E11.69 ; Spinal stenosis, unspecified spinal region M48.00 and Essential hypertension I10 [facility] [place] [address] [id number] [place] [id number] Jan, Diabetic polyneuropathy associated with type 2 diabetes mellitus E11.42 [facility] [place] [address] [id number] [place] [id number] Dec, [facility] [place] [address] [id number] [place] [id number] Dec, Diabetic polyneuropathy associated with type 2 diabetes mellitus E11.42 ; Type 2 diabetes mellitus with other specified complication E11.69 ; Hyperlipidemia, unspecified E78.5 ; Thyroid disorder E07.9 and Thyroid disorder screening Z13.29 [facility] [place] [address] [id number] [place] [id number] Dec, Diabetic polyneuropathy associated with type 2 diabetes mellitus E11.42 [facility] [address] [id number] [address] [place] [address] Dec, Diabetic polyneuropathy asso ciated with type 2 diabetes mellitus E11.42 [facility] [place] [address] [id number] [place] [id number] Dec, Spinal stenosis, unspecified spinal joesph on M48.00 [facility] [place] [address] [id number] [place] [id number] Dec, [facility] [place] [address] [id number] [place] [id number] 18 Nov, 2016 Diabetic polyneuropathy associated with type 2 diabetes mellitus E11.42 [facility] [place] [address] [id number] [place] [id number] 15 Nov, 2016 Other chronic pain G89.29 [facility] [place] [address] [id number] [place] [id number] 14 Nov, 2016 Spinal stenosis, unspecified spinal joesph on M48.00 [facility] [place] [address] [id number] [place] [id number] Oct, Spinal stenosis, unspecified spinal joesph on M48.00 ; Essential hypertension I10 ; RLS (restless legs syndrome) G25.81 and Diabetic polyneuropathy associated with type 2 diabetes mellitus E11.42 [facility] [place] [address] [id number] [place] [id number] Oct, Spinal stenosis, unspecified spinal joesph on M48.00 [facility] [place] [address] [id number] [place] [id number] Sep, Diabetic polyneuropathy associated with type 2 diabetes mellitus E11.42 ; RLS (restless legs syndrome) G25.81 ; Spinal stenosis, unspecified spinal region M48.00 and Essential hypertension I10 [facility] [place] [address] [id number] [place] [id number] Sep, [facility] [place] [address] [id number] [place] [id number] Sep, Spinal stenosis, unspecified spinal joesph on M48.00 [facility] [place] [address] [id number] [place] [id number] Sep, [facility] [place] [address] [id number] [place] [id number] Aug, Spinal stenosis, unspecified spinal joesph on M48.00 [facility] [address] [id number] [address] [place] [address] July, [facility] [place] [address] [id number] [place] [id number] July, Spinal stenosis, unspecified spinal joesph on M48.00 [facility] [place] [address] [id number] [place] [id number] Jun, Type 2 diabetes mellitus with hyperglyce nadiya E11.65 [facility] [place] [address] [id number] [place] [id number] Jun, Spinal stenosis, unspecified spinal joesph on M48.00 [facility] [place] [address] [id number] [place] [id number] May, Spinal stenosis, unspecified spinal joesph on M48.00 [facility] [place] [address] [id number] [place] [id number] Apr, Spinal stenosis, unspecified spinal joesph on M48.00 [facility] [address] [id number] [address] [place] [address] Mar, [facility] [place] [address] [id number] [place] [id number] Mar, Type 2 diabetes mellitus with hyperglyce nadiya E11.65 ; RLS (restless legs syndrome) G25.81 and Spinal stenosis, unspecified spinal region M48.00 [facility] [address] [id number] [address] [place] [address] Mar, [facility] [place] [address] [id number] [place] [id number] Mar, [facility] [address] [facility] [address] [id number] [id number] Mar, [facility] [place] [address] [id number] [place] [id number] Feb, [facility] [address] [id number] [address] [place] [address] Feb, [facility] [place] [address] [id number] [place] [id number] Feb, [facility] [place] [address] [id number] [place] [id number] Feb, [facility] [address] [facility] [id number] [address] [place] [address] Feb, [facility] [address] [facility] [id number] [address] [place] [address] Feb, [facility] [place] [address] [id number] [place] [id number] Jan, [facility] [place] [address] [id number] [place] [id number] Dec, Diabetic polyneuropathy associated with type 2 diabetes mellitus E11.42 ; Other chronic pain G89.29 ; Essential hypertension I10 and Encounter for immunization Z23 [facility] [place] [address] [id number] [place] [id number] Dec, [facility] [address] [facility] [id number] [address] [place] [address] Nov, [facility] [place] [address] [id number] [place] [id number] Nov, [facility] [place] [address] [id number] [place] [id number] Nov, Diabetes type 2, controlled E11.9 [facility] [place] [address] [id number] [place] [id number] Nov, Diabetes type 2, controlled E11.9 ; Othe r chronic pain G89.29 ; Essential hypertension I10 ; Diabetic polyneuropathy associated with type 2 diabetes mellitus E11.42 and RLS (restless legs syndrome) G25.81 [facility] [address] [facility] [id number] [address] [place] [address] Nov, [facility] [place] [address] [id number] [place] [id number] Oct, [facility] [place] [address] [id number] [place] [id number] Oct, [facility] [place] [address] [id number] [place] [id number] Oct, [facility] [address] [id number] [address] [place] [address], [place] [address] Oct, [facility] [place] [address] [id number] [place] [id number] Sep, [facility] [place] [address] [id number] [place] [id number] Sep, [facility] [address] [id number] [address] [place] [address], [place] [address] Sep, Dental examination Z01.20 [facility] [address] [id number] [address] [place] [address], [place] [address] Aug, [facility] [place] [address] [id number] [place] [id number] Aug, [facility] [address] [id number] [address] [place] [address], [place] [address] Aug, [facility] [address] [id number] [address] [place] [address], [place] [address] July, [facility] [address] [id number] [address] [place] [id number] July, [facility] [address] [id number] [address] [place] [id number] July, [facility] [place] [address] [id number] [place] [id number] July, [facility] [place] [address] [id number] [place] [id number] July, [facility] [place] [address] [id number] [place] [id number] July, [facility] [address] [id number] [address] [place] [address], [place] [address] July, [facility] [place] [address] [id number] [place] [id number] Jun, Diabetes type 2, controlled E11.9 [facility] [place] [address] [id number] [place] [id number] Jun, [facility] [place] [address] [id number] [place] [id number] May, Diabetes type 1, uncontrolled E10.65 [facility] [place] [address] [id number] [place] [id number] May, [facility] [place] [address] [id number] [place] [id number] Apr, [facility] [place] [address] [id number] [place] [id number] Apr, [facility] [place] [address] [id number] [place] [id number] Mar, [facility] [place] [address] [id number] [place] [id number] Mar, [facility] [place] [address] [id number] [place] [id number] Mar, [facility] [place] [address] [id number] [place] [id number] Mar, Diabetes type 1, uncontrolled E10.65 [facility] [place] [address] [id number] [place] [id number] Feb, [facility] [place] [address] [id number] [place] [id number] Feb, [facility] [place] [address] [id number] [place] [id number] Feb, [facility] [place] [address] [facility] [address] [id number] [id number] Jan, [facility] [place] [address] [id number] [place] [id number] Jan, Dysuria R30.0 and Acute cystitis with he maturia N30.01 [facility] [place] [address] [id number] [place] [id number] Jan, [facility] [place] [address] [id number] [place] [id number] Dec, Gastroenteritis K52.9 and Headache, unsp ecified headache type R51 [facility] [place] [address] [id number] [place] [id number] Dec, [facility] [place] [address] [id number] [place] [id number] Dec, Chronic back pain 724.5 Jenaro BURRELL [address] [id number] [place]IM[place] COOPER [id number] Dec, [facility] [place] [address] [facility] [place] [id number] [place] [id number] Nov, Chronic back pain 724.5 and Diabetes frank litus without mention of complication, type II or unspecified type, uncontrolled 250.02 [facility] [place] [address] [facility] [place] [id number] [place] [id number] Nov, [facility] [place] [address] [facility] [place] [id number] [place] [id number] Oct, [facility] [place] [address] [facility] [place] [id number] [place] [id number] Sep, Diabetes mellitus without mention of com plication, type II or unspecified type, uncontrolled 250.02 and Urinary tract infection 599.0 [facility] [place] [address] [facility] [place] [id number] [place] [id number] July, [facility] [address] [id number] [address] [place] [address] Jun, [facility] [address] [id number] [address] [place] [address] Jun, [facility] [place] [address] [facility] [place] [id number] [place] [id number] May, [facility] [address] [facility] [id number] [address] [place] [address] May, [facility] [place] [address] [facility] [place] [id number] [place] [id number] May, [facility] [address] [facility] [id number] [address] [place] [address] May, [facility] [place] [address] [facility] [place] [id number] [place] [id number] Mar, [facility] [address] [facility] [id number] [address] [place] [address] Mar, [facility] [address] [id number] [address] [place] [address], [place] [address] Mar, [facility] [place] [address] [id number] [place] [id number] Mar, [facility] [place] [address] [id number] [place] [id number] Feb, [facility] [address] [id number] [address] [place] [address], [place] [address] Feb, [facility] [place] [address] [id number] [place] [id number] Feb, [facility] [address] [id number] [address] [place] [address], [place] [address] Feb, [facility] [address] [id number] [address] [place] [address], [place] [address] Feb, [facility] [place] [address] [id number] [place] [id number] Feb, [facility] [place] [address] [id number] [place] [id number] Feb, [facility] [address] [id number] [address] [place] [address], [place] [address] Feb, [facility] [address] [id number] [address] [place] [address], [place] [address] Feb, [facility] [place] [address] [id number] [place] [id number] Jan, [facility] [address] [id number] [address] [place] [address], [place] [address] Jan, [facility] [place] [address] [id number] [place] [id number] Jan, [facility] [address] [id number] [address] [place] [address], [place] [address] Jan, [facility] [place] [address] [id number] [place] [id number] Dec, [facility] [address] [id number] [address] [place] [address], [place] [address] Dec, [facility] [address] [id number] [address] [place] [address], [place] [address] Dec, [facility] [address] [id number] [address] [place] [address], [place] [address] Dec, [facility] [place] [address] [id number] [place] [id number] Dec, [facility] [address] [id number] [address] [place] [address], [place] [address] Dec, [facility] [place] [address] [id number] [place] [id number] Nov, [facility] [address] [id number] [address] [place] [address], [place] [address] Nov, [facility] [place] [address] [id number] [place] [id number] Oct, [facility] [address] [id number] [address] [place] [address], [place] [address] Oct, [facility] [address] [id number] [address] [place] [address], [place] [address] Sep, [facility] [place] [address] [id number] [place] [id number] Sep, [facility] [place] [address] [id number] [place] [id number] Aug, [facility] [address] [id number] [address] [place] [address], [place] [address] Aug, [facility] [place] [address] [id number] [place] [id number] July, [facility] [address] [id number] [address] [place] [address], [place] [address] July, [facility] [place] [address] [id number] [place] [id number] July, [facility] [address] [id number] [address] [place] [address], [place] [address] July, [facility] [address] [id number] [facility] [place] [address] July, [facility] [address] [id number] [address] [place] [address], [place] [address] Jun, [facility] [address] [id number] [place] [id number] Jun, [facility] [place] [address] [id number] [place] [id number] Jun, [facility] [address] [id number] [address] [place] [address], [place] [address] Jun, [facility] [address] [id number] [address] [place] [address], [place] [address] Jun, [facility] [address] [id number] [address] [place] [address], [place] [address] May, [facility] [address] [id number] [place] [id number] Apr, [facility] [address] [id number] [address] [place] [address], [place] [address] Apr, [facility] [place] [address] [id number] [place] [id number] Apr, [facility] [address] [id number] [address] [place] [address], [place] [address] Apr, [facility] [address] [id number] [address] [place] [address], [place] [address] Mar, [facility] [address] [id number] [address] [place] [address], [place] [address] Mar, [facility] [address] [id number] [address] [place] [address], [place] [address] Mar, [facility] [place] [address] [id number] [place] [id number] Mar, [facility] [address] [id number] [address] [place] [address], [place] [address] Mar, [facility] [address] [id number] [address] [place] [address], [place] [address] Mar, [facility] [address] [id number] [address] [place] [address], [place] [address] Feb, [facility] [place] [address] [id number] [place] [id number] Feb, [facility] [address] [id number] [address] [place] [address], [place] [address] Feb, [facility] [place] [address] [id number] [place] [id number] Feb, [facility] [address] [id number] [address] [place] [address] Feb, [facility] [place] [address] [id number] [place] [id number] Feb, [facility] [address] [facility] [id number] [address] [place] [address] Feb, [facility] [place] [address] [id number] [place] [id number] Jan, [facility] [address] [id number] [address] [place] [address], [place] [address] Jan, [facility] [address] [id number] [address] [place] [address], [place] [address] Dec, [facility] [place] [address] [id number] [place] [id number] Dec, [facility] [address] [id number] [address] [place] [address], [place] [address] Nov, [facility] [place] [address] [id number] [place] [id number] Oct, [facility] [address] [id number] [place] [id number] Oct, [facility] [place] [address] [id number] [place] [id number] Sep, [facility] [address] [id number] [address] [place] [address], [place] [address] Sep, [facility] [place] [address] [id number] [place] [id number] Sep, [facility] [place] [address] [id number] [place] [id number] Sep, [facility] [place] [address] [id number] [place] [id number] Sep, [facility] [place] [address] [id number] [place] [id number] Sep, [facility] [place] [address] [id number] [place] [id number] Sep, [facility] [address] [id number] [address] [place] [address] Aug, [facility] [place] [address] [id number] [place] [id number] Aug, [facility] [address] [facility] [id number] [address] [place] [address] July, [facility] [place] [address] [id number] [place] [id number] July, [facility] [address] [facility] [id number] [address] [place] [address] July, [facility] [place] [address] [id number] [place] [id number] Jun, [facility] [place] [address] [id number] [place] [id number] Jun, [facility] [place] [address] [id number] [place] [id number] Jun, [facility] [address] [id number] [address] [place] [address] Jun, [facility] [place] [address] [id number] [place] [id number] May, [facility] [place] [address] [id number] [place] [id number] May, [facility] [address] [facility] [id number] [address] [place] [address] May, [facility] [place] [address] [id number] [place] [id number] Apr, [facility] [address] [facility] [id number] [address] [place] [address], [place] [address] Apr, [facility] [place] [address] [id number] [place] [id number] Apr, [facility] [place] [address] [id number] [place] [id number] Apr, [facility] [address] [id number] [address] [place] [address], [place] [address] Mar, [facility] [place] [address] [id number] [place] [id number] Mar, [facility] [place] [address] [id number] [place] [id number] Mar, [facility] [place] [address] [id number] [place] [id number] Feb, [facility] [address] [facility] [id number] [address] [place] [address], [place] [address] Feb, [facility] [place] [address] [id number] [place] [id number] Jan, [facility] [place] [address] [id number] [place] [id number] Jan, [facility] [address] [facility] [id number] [address] [place] [address] Jan, [facility] [address] [facility] [id number] [address] [place] [address] Jan, [facility] [place] [address] [id number] [place] [id number] Jan, [facility] [address] [facility] [id number] [address] [place] [address] Jan, [facility] [place] [address] [id number] [place] [id number] Dec, [facility] [address] [facility] [id number] [address] [place] [address] Dec, [facility] [place] [address] [id number] [place] [id number] Dec, [facility] [address] [facility] [id number] [address] [place] [address], [place] [address] Dec, [facility] [place] [address] [id number] [place] [id number] Dec, [facility] [place] [address] [id number] [place] [id number] Nov, [facility] [place] [address] [id number] [place] [id number] Nov, [facility] [place] [address] [id number] [place] [id number] Oct, [facility] [place] [address] [id number] [place] [id number] Oct, [facility] [place] [address] [id number] [place] [id number] Sep, [facility] [place] [address] [id number] [place] [id number] Sep, [facility] [place] [address] [id number] [place] [id number] Sep, [facility] [place] [address] [id number] [place] [id number] Aug, [facility] [place] [address] [id number] [place] [id number] Aug, [facility] [place] [address] [id number] [place] [id number] July, [facility] [place] [address] [id number] [place] [id number] July, [facility] [place] [address] [id number] [place] [id number] July, [facility] [place] [address] [id number] [place] [id number] July, [facility] [address] [facility] [id number] [facility] [place] [address] Jun, [facility] [place] [address] [id number] [place] [id number] Jun, [facility] [place] [address] [id number] [place] [id number] Jun, [facility] [place] [address] [id number] [place] [id number] Jun, [facility] [place] [address] [id number] [place] [id number] May, [facility] [place] [address] [id number] [place] [id number] May, [facility] [place] [address] [id number] [place] [id number] Apr, [facility] [place] [address] [id number] [place] [id number] Apr, [facility] [place] [address] [id number] [place] [id number] Apr, [facility] [place] [address] [id number] [place] [id number] Apr, [facility] [place] [address] [id number] [place] [id number] Apr, [facility] [address] [id number] [address] [place] [address] Apr, [facility] [place] [address] [id number] [place] [id number] Apr, [facility] [place] [address] [id number] [place] [id number] Apr, [facility] [place] [address] [id number] [place] [id number] Mar, [facility] [id number] [place] [address] Feb, [facility] [address] [id number] [address] [place] [address] Feb, [facility] [address] [id number] [address] [place] [address] Feb, [facility] [address] [id number] [address] [place] [address], [place] [address] 05 Feb, 2011 [facility] [address] [id number] [address] [place] [address], [place] [address] Jan, [facility] [address] [id number] [address] [place] [address], [place] [address] Jan, [facility] [address] [id number] [address] [place] [address], [place] [address] Jan, [facility] [address] [id number] [address] [place] [address], [place] [address] Dec, [facility] [address] [id number] [address] [place] [address], [place] [address] Dec, [facility] [address] [id number] [address] [place] [address], [place] [address] Aug, [facility] [address] [id number] [address] [place] [address], [place] [address] Aug, [facility] [address] [id number] [address] [place] [address], [place] [address] Feb, [facility] [address] [id number] [address] [place] [address], [place] [address] Feb, [facility] [address] [id number] [address] [place] [address], [place] [address] Jan, [facility] [address] [id number] [address] [place] [address], [place] [address] Jan, [facility] [address] [id number] [address] [place] [address], [place] [address] Dec, [facility] [address] [id number] [address] [place] [address], [place] [address] Dec, [facility] [address] [id number] [address] [place] [address], [place] [address] Dec, [facility] [address] [id number] [address] [place] [address], [place] [address] May, [facility] [address] [id number] [address] [place] [address] Mar, [facility] [address] [id number] [address] [place] [address] Feb, [facility] [address] [id number] [address] [place] [id number] Feb, [facility] [address] [id number] [address] [place] [address] Feb, [facility] [address] [id number] [address] [place] [address] Jan, [facility] [address] [id number] [address] [place] [address] Jan, [facility] [address] [id number] [address] [place] [address] Oct, [facility] [address] [id number] [address] [place] [id number] July, [facility] [address] [id number] [address] [place] [address] Apr, [facility] [address] [id number] [address] [place] [address] Jan, [facility] [address] [id number] [address] [place] [address] Jan, IMMUNIZATIONS No Known Immunizations SOCIAL HISTORY Never Assessed REASON FOR VISIT PLAN OF CARE VITAL SIGNS Height 64 in 2014-03-15 Weight 169 lbs 2014-03-15 Temperature 99.1 degrees Fahrenheit 2014-03-15 Heart Rate 88 bpm 2014-03-15 Respiratory Rate 20 2014-03-15 Blood pressure systolic 122 mmHg 2014-03-15 Blood pressure diastolic 74 mmHg 2014-03-15 MEDICATIONS Unknown Medications RESULTS No Results PROCEDURES Procedure Date Ordered Result Body Site COMPLETE CBC W/AUTO DIFF WBC Mar 15, 2014 ASSAY THYROID STIM HORMONE Mar 15, 2014 GLYCATED HEMOGLOBIN TEST Mar 15, 2014 LIPID PANEL Mar 15, 2014 COMPREHEN METABOLIC PANEL Mar 15, 2014 VENIPUNCT, ROUTINE* Mar 15, 2014 INSTRUCTIONS MEDICATIONS ADMINISTERED No Known Medications MEDICAL [...] Hospitalization History surgeries, childbirth Hospitalization History ED [place]- Possible Stroke Hospitalization History Hospital stay due to acute renal didier lure 10/2018
--- OUTSIDE RECORDS SUMMARY | 2019-07-26 17:36 | XMS REPORT ---
Author Author Emelyn Trinidad Doctor Organization [facility] Address Unknown Phone Unavailable Care Team Providers Care Nursing Assistant Name Role Phone Migration, Doctor Unavailable Unavailable PROBLEMS Type Condition ICD9-CM Code PYP37-GQ Code Onset Dates Condition S tatus SNOMED Code Problem Essential hypertension I10 Active 24048044 Problem RLS (restless legs syndrome) G25.81 A ctive 00967608 Problem Other chronic pain G89.29 Active 8 7289588 Problem Diabetic polyneuropathy associated with type 2 d iabetes mellitus E11.42 Active 34279686 Problem Spinal stenosis, unspecified spinal region M48.00 Active 10222186 Problem Encounter for immunization Z23 Act nicole 766950901 Problem Type 2 diabetes mellitus with other specified complication E11.69 Active 70464437822758 Problem Reactive depression F32.9 Active 80881875 Problem Hypoglycemia E16.2 Active 6209352 03 Problem Moderate episode of recurrent major depressive disorder F33.1 Active 207299541 Problem Hyperlipidemia, unspecified E78.5 Ac tive 36313003 Problem Falling R29.6 Active 228436767 Problem Type 2 diabetes mellitus with hyperglycemia E11.65 Active 331164462729277 Problem 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 Active 830984838 Problem Type 2 diabetes mellitus with other diabetic kid rory complication E11.29 Active 49673138 Problem Unsteady gait R26.81 Active 544077 008 Problem Moderate episode of recurrent major depressive disorder F33.1 Active 330182864 ALLERGIES No Information ENCOUNTERS Encounter Location Date Diagnosis [place] [address] [id number] [place] [address] July, [place] [address] [id number] [place] [address] July, Spinal stenosis, unspecified spinal joesph on M48.00 [place] [address] [id number] [place] [address] July, Type 2 diabetes mellitus with hyperglyce nadiya E11.65 [facility] [place] [address] [id number] 100[address] [place] [address] July, [facility] [address] [place], [place] [address] [address] [id number] [place] [address] Jun, Essential hypertension I10 [facility] [place] [address] [id number] [place] [id number] Jun, [facility] [place] [address] [id number] [place] [address] Jun, [facility] [place] [address] [id number] [place] [id number] Jun, Spinal stenosis, unspecified spinal joesph on M48.00 [facility] [address] [place] [address] [id number] [place] [address] Jun, Cellulitis of hand L03.119 and Essential hypertension I10 [facility] [place] [address] [id number] [place] [address] May, [facility] [address] [place] [address] [id number] [place] [address] May, Laceration of right periocular area with out foreign body, initial encounter S01.111A and Essential hypertension I10 [facility] [address] [place] [address] [id number] [place] [address] May, [facility] [address] [place] [address] [id number] [place] [address] May, Spinal stenosis, unspecified spinal joesph on M48.00 [facility] [address] [place] [address] [id number] [place] [address] Apr, Type 2 diabetes mellitus with other spec ified complication E11.69 ; Essential hypertension I10 and Hyperlipidemia, unspecified E78.5 [facility] [address] [place] [address] [id number] [place] [address] Apr, Spinal stenosis, unspecified spinal joesph on M48.00 [facility] [place] [address] [id number] [place] [address] 04 Apr, 2019 [facility] [place] [address] [address] [id number] [facility] [place] [address] Mar, Spinal stenosis, unspecified spinal joesph on M48.00 [facility] [place] [address] [id number] [place] [id number] Feb, Essential hypertension I10 ; Type 2 diab etes mellitus with hyperglycemia E11.65 ; Falling R29.6 and Spinal stenosis, unspecified spinal region M48.00 [facility] [place] [address] [id number] [place] [id number] Feb, Vertigo R42 and Laceration of right foot , initial encounter S91.311A [facility] [place] [address] [id number] [place] [id number] Jan, Essential hypertension I10 and Type 2 di abetes mellitus with hyperglycemia E11.65 [facility] [place] [address] [id number] [place] [id number] Jan, Spinal stenosis, unspecified spinal joesph on M48.00 [facility] [place] [address] [id number] [place] [id number] Jan, Essential hypertension I10 and Spinal st enosis, unspecified spinal region M48.00 [facility] [place] [address] [id number] [place] [id number] Jan, [facility] [place] [address] [id number] [place] [id number] Jan, [facility] [place] [address] [id number] [place] [id number] Dec, Type 2 diabetes mellitus with other spec ified complication E11.69 and Other chronic pain G89.29 [facility] [place] [address] [id number] [place] [id number] Dec, Spinal stenosis, unspecified spinal joesph on M48.00 [facility] [place] [address] [id number] [place] [address] Dec, Type 2 diabetes mellitus wit h other diabetic kidney complication E11.29 [facility] [address] [facility] [id number] [place] [id number] 14 Dec, 2018 Type 2 diabetes mellitus with other diab etic kidney complication E11.29 ; Fatigue, unspecified type R53.83 ; Moderate episode of recurrent major depressive disorder F33.1 and Acute cystitis with hematuria N30.01 [facility] [place] [address] [facility] [id number] [place] [id number] 08 Dec, 2018 [facility] [address] [facility] [id number] [address] [address] 07 Dec, 2018 Injury of head, initial enco unter S09.90XA ; Unsteady gait R26.81 and Hyperglycemia R73.9 [facility] [address] 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 [id number] [place] [id number] Nov, Acute renal failure, unspecified acute r enal failure type N17.9 [facility] [address] [id number] [place] [id number] Oct, Diabetic polyneuropathy associated with type 2 diabetes mellitus E11.42 ; Essential hypertension I10 ; Acute renal failure, unspecified acute renal failure type N17.9 and Spinal stenosis, unspecified spinal region M48.[address] [id number] [place] [id number] Oct, Essential hypertension I10 ; Diabetic po lyneuropathy associated with type 2 diabetes mellitus E11.42 and Acute renal failure, unspecified acute renal failure type N17.9 [facility] [address] [id number] [id number] Oct, [facility] [address] [facility] [id number] [place] [id number] Oct, [facility] [place] [address] [id number] [place] [id number] Oct, [facility] [place] [address] [id number] [place] [id number] Oct, Essential hypertension I10 ; Diabetic po lyneuropathy associated with type 2 diabetes mellitus E11.42 and Acute renal failure, unspecified acute renal failure type N17.9 [facility] [place] [address] [id number] [place] [id number] Oct, Spinal stenosis, unspecified spinal joesph on M48.00 [facility] [place] [address] [id number] [place] [id number] Sep, Spinal stenosis, unspecified spinal joesph on M48.00 [facility] [place] [address] [id number] [place] [id number] Sep, Type 2 diabetes mellitus with other spec ified complication E11.69 ; Vertigo R42 and Spinal stenosis, unspecified spinal region M48.00 [facility] [place] [address] [id number] [place] [id number] Sep, Spinal stenosis, unspecified spinal joesph on M48.00 [facility] [place] [address] [id number] [place] [id number] Sep, Spinal stenosis, unspecified spinal joesph on M48.00 [facility] [place] [address] [id number] [place] [id number] Aug, Spinal stenosis, unspecified spinal joesph on M48.00 [facility] [place] [address] [id number] [place] [id number] July, Diabetic polyneuropathy associated with type 2 diabetes mellitus E11.42 [facility] [place] [address] [id number] [place] [id number] July, Spinal stenosis, unspecified spinal joesph on M48.00 [facility] [place] [address] [id number] [place] [id number] July, Spinal stenosis, unspecified spinal joesph on M48.00 [facility] [place] [address] [id number] [place] [id number] Jun, Spinal stenosis, unspecified spinal joesph on M48.00 [facility] [place] [address] [id number] [place] [id number] Jun, Diabetic polyneuropathy associated with type 2 diabetes mellitus E11.42 [facility] [place] [address] [id number] [place] [id number] May, Diabetic polyneuropathy associated with type 2 diabetes mellitus E11.42 [facility] [place] [address] [id number] [place] [id number] May, [facility] [place] [address] [id number] [place] [id number] May, Spinal stenosis, unspecified spinal joesph on M48.00 [facility] [place] [address] [id number] [place] [id number] Apr, Spinal stenosis, unspecified spinal joesph on M48.00 [facility] [address] [id number] [id number] Apr, [facility] [address] [facility] [id number] [address] [place] [address] Apr, Puncture wound T14.8XXA ; Ab rasion T14.8XXA and Encounter for immunization Z23 [facility] [place] [address] [id number] [place] [id number] Mar, Spinal stenosis, unspecified spinal joesph on M48.00 [facility] [place] [address] [id number] [place] [id number] Feb, Spinal stenosis, unspecified spinal joesph on M48.00 [facility] [place] [address] [id number] [place] [id number] Jan, Type 2 diabetes mellitus with hyperglyce nadiya E11.65 ; Diabetes type 2, controlled E11.9 ; Spinal stenosis, unspecified spinal region M48.00 and Encounter for immunization Z23 [facility] [place] [address] [facility] [id number] [address] [place] [address] Dec, Spinal stenosis, unspecified spinal region M48.00 [facility] [address] [id number] [address] [place] [address] Dec, [facility] [address] [id number] [address] [place] [address] Dec, [facility] [address] [id number] [address] [place] [address] Dec, [facility] [place] [address] [id number] [place] [id number] Nov, [facility] [place] [address] [id number] [place] [id number] Nov, Spinal stenosis, unspecified spinal joesph on M48.00 [facility] [place] [address] [id number] [place] [id number] Oct, Spinal stenosis, unspecified spinal joesph on M48.00 [facility] [place] [address] [id number] [place] [id number] Oct, Spinal stenosis, unspecified spinal joesph on M48.00 [facility] [place] [address] [id number] [place] [id number] Oct, [facility] [place] [address] [id number] [place] [id number] Oct, Diabetic polyneuropathy associated with type 2 diabetes mellitus E11.42 ; RLS (restless legs syndrome) G25.81 ; Spinal stenosis, unspecified spinal region M48.00 and Acute cystitis with hematuria N30.01 [facility] [place] [address] [id number] [place] [id number] Oct, [facility] [place] [address] [id number] [place] [id number] Oct, Spinal stenosis, unspecified spinal joesph on M48.00 [facility] [place] [address] [id number] [place] [id number] Sep, Diabetic polyneuropathy associated with type 2 diabetes mellitus E11.42 [facility] [place] [address] [id number] [address] [place] [address] Sep, [facility] [place] [address] [id number] [place] [id number] Sep, Spinal stenosis, unspecified spinal joesph on M48.00 [facility] [place] [address] [facility] [id number] [address] [place] [address] Aug, [facility] [place] [address] [id number] [place] [id number] Aug, Spinal stenosis, unspecified spinal joesph on M48.00 [facility] [place] [address] [id number] [place] [id number] Aug, Spinal stenosis, unspecified spinal joesph on M48.00 [facility] [place] [address] [id number] [place] [id number] July, [facility] [place] [address] [id number] [place] [id number] July, Diabetic polyneuropathy associated with type 2 diabetes mellitus E11.42 ; Type 2 diabetes mellitus with hyperglycemia E11.65 ; RLS (restless legs syndrome) G25.81 and Essential hypertension I10 [facility] [place] [address] [id number] [place] [id number] July, Spinal stenosis, unspecified spinal joesph on M48.00 [facility] [place] [address] [id number] [place] [id number] July, [facility] [place] [address] [id number] [place] [id number] Jun, Type 2 diabetes mellitus with other spec ified complication E11.69 [facility] [place] [address] [id number] [place] [id number] Jun, Spinal stenosis, unspecified spinal joesph on M48.00 [facility] [place] [address] [id number] [place] [id number] Jun, Hypoglycemia E16.2 [facility] [place] [address] [id number] [place] [id number] May, Hypoglycemia E16.2 ; Acute cystitis with hematuria N30.01 and Essential hypertension I10 [facility] [address] [facility] [id number] [place] [address] May, [facility] [place] [address] [id number] [place] [id number] May, Spinal stenosis, unspecified spinal joesph on M48.00 [facility] [place] [address] [id number] [place] [id number] May, Reactive depression F32.9 [facility] [place] [address] [id number] [place] [id number] May, [facility] [place] [address] [id number] [place] [id number] Apr, [facility] [address] [id number] [place] [id number] Apr, [facility] [address] [id number] [place] [address] Apr, [facility] [place] [address] [id number] [place] [id number] Apr, [facility] [place] [address] [id number] [place] [id number] Apr, Spinal stenosis, unspecified spinal joesph on M48.00 [facility] [place] [address] [id number] [place] [id number] Apr, Type 2 diabetes mellitus with other spec ified complication E11.69 ; Spinal stenosis, unspecified spinal region M48.00 ; Reactive depression F32.9 and Essential hypertension I[address] [facility] [address] [id number] [place] [id number] Apr, [facility] [place] [address] [id number] [place] [id number] Mar, Spinal stenosis, unspecified spinal joesph on M48.00 [facility] [place] [address] [id number] [place] [id number] Feb, Acute non-recurrent maxillary sinusitis J01.00 and Essential hypertension I10 [facility] [place] [address] [id number] [place] [id number] Feb, Spinal stenosis, unspecified spinal joesph on M48.00 [facility] [place] [address] [id number] [place] [id number] Feb, Type 2 diabetes mellitus with other spec ified complication E11.69 [facility] [place] [address] [id number] [place] [id number] Feb, Type 2 diabetes mellitus with other spec ified complication E11.69 and Essential hypertension I10 [facility] [place] [address] [id number] [place] [id number] Feb, [facility] [place] [address] [id number] [place] [id number] Feb, [facility] [place] [address] [id number] [place] [id number] Jan, Spinal stenosis, unspecified spinal joesph on M48.00 [facility] [place] [address] [id number] [place] [id number] Jan, Diabetic polyneuropathy associated with type 2 diabetes mellitus E11.42 [facility] [place] [address] [id number] [place] [id number] Jan, Diabetic polyneuropathy associated with type 2 diabetes mellitus E11.42 [facility] [place] [address] [id number] [place] [id number] Jan, Type 2 diabetes mellitus with hyperglyce nadiya E11.65 ; Type 2 diabetes mellitus with other specified complication E11.69 ; Spinal stenosis, unspecified spinal region M48.00 and Essential hypertension I10 [facility] [place] [address] [id number] [place] [id number] Jan, Diabetic polyneuropathy associated with type 2 diabetes mellitus E11.42 [facility] [place] [address] [id number] [place] [id number] Dec, [facility] [place] [address] [id number] [place] [id number] Dec, Diabetic polyneuropathy associated with type 2 diabetes mellitus E11.42 ; Type 2 diabetes mellitus with other specified complication E11.69 ; Hyperlipidemia, unspecified E78.5 ; Thyroid disorder E07.9 and Thyroid disorder screening Z13.29 [facility] [place] [address] [id number] [place] [id number] Dec, Diabetic polyneuropathy associated with type 2 diabetes mellitus E11.42 [facility] [place] [address] [id number] [address] [address] Dec, Diabetic polyneuropathy asso ciated with type 2 diabetes mellitus E11.42 [facility] [place] [address] [id number] [place] [id number] Dec, Spinal stenosis, unspecified spinal joesph on M48.00 [facility] [place] [address] [id number] [place] [id number] Dec, [facility] [place] [address] [id number] [place] [id number] 18 Nov, 2016 Diabetic polyneuropathy associated with type 2 diabetes mellitus E11.42 [facility] [place] [address] [id number] [place] [id number] 15 Nov, 2016 Other chronic pain G89.29 [facility] [place] [address] [id number] [place] [id number] 14 Nov, 2016 Spinal stenosis, unspecified spinal joesph on M48.00 [facility] [place] [address] [id number] [place] [id number] Oct, Spinal stenosis, unspecified spinal joesph on M48.00 ; Essential hypertension I10 ; RLS (restless legs syndrome) G25.81 and Diabetic polyneuropathy associated with type 2 diabetes mellitus E11.42 [facility] [place] [address] [id number] [place] [id number] Oct, Spinal stenosis, unspecified spinal joesph on M48.00 [facility] [place] [address] [id number] [place] [id number] Sep, Diabetic polyneuropathy associated with type 2 diabetes mellitus E11.42 ; RLS (restless legs syndrome) G25.81 ; Spinal stenosis, unspecified spinal region M48.00 and Essential hypertension I10 [facility] [place] [address] [id number] [place] [id number] Sep, [facility] [place] [address] [id number] [place] [id number] Sep, Spinal stenosis, unspecified spinal joesph on M48.00 [facility] [place] [address] [id number] [place] [id number] Sep, [facility] [place] [address] [id number] [place] [id number] Aug, Spinal stenosis, unspecified spinal joesph on M48.00 [facility] [place] [address] [id number] [address] [place] [address] July, [facility] [place] [address] [id number] [place] [id number] July, Spinal stenosis, unspecified spinal joesph on M48.00 [facility] [place] [address] [id number] [place] [id number] Jun, Type 2 diabetes mellitus with hyperglyce nadiya E11.65 [facility] [place] [address] [id number] [place] [id number] Jun, Spinal stenosis, unspecified spinal joesph on M48.00 [facility] [place] [address] [id number] [place] [id number] May, Spinal stenosis, unspecified spinal joesph on M48.00 [facility] [place] [address] [id number] [place] [id number] Apr, Spinal stenosis, unspecified spinal joesph on M48.00 [facility] [place] [address] [id number] [address] [place] [address] Mar, [facility] [place] [address] [id number] [place] [id number] Mar, Type 2 diabetes mellitus with hyperglyce nadiya E11.65 ; RLS (restless legs syndrome) G25.81 and Spinal stenosis, unspecified spinal region M48.00 [facility] [place] [address] [id number] [address] [place] [address] Mar, [facility] [place] [address] [id number] [place] [id number] Mar, [facility] [address] [id number] [id number] Mar, [facility] [place] [address] [id number] [place] [id number] Feb, [facility] [place] [address] [facility] [id number] [address] [place] [address] Feb, [facility] [place] [address] [id number] [place] [id number] Feb, [facility] [place] [address] [id number] [place] [id number] Feb, [facility] [place] [address] [facility] [id number] [address] [place] [address] Feb, [facility] [place] [address] [facility] [id number] [address] [place] [address] Feb, [facility] [place] [address] [id number] [place] [id number] Jan, [facility] [address] [id number] [place] [id number] Dec, Diabetic polyneuropathy associated with type 2 diabetes mellitus E11.42 ; Other chronic pain G89.29 ; Essential hypertension I10 and Encounter for immunization Z23 [facility] [place] [address] [id number] [place] [id number] Dec, [facility] [place] [address] [facility] [id number] [address] [place] [address] Nov, [facility] [address] [id number] [place] [id number] Nov, [facility] [address] [id number] [place] [id number] Nov, Diabetes type 2, controlled E11.9 [facility] [address] [id number] [place] [id number] Nov, Diabetes type 2, controlled E11.9 ; Othe r chronic pain G89.29 ; Essential hypertension I10 ; Diabetic polyneuropathy associated with type 2 diabetes mellitus E11.42 and RLS (restless legs syndrome) G25.81 [facility] [place] [address] [facility] [id number] [address] [place] [address] Nov, [facility] [place] [address] [id number] [place] [id number] Oct, [facility] [place] [address] [id number] [place] [id number] Oct, [facility] [place] [address] [id number] [place] [id number] Oct, [facility] [address] [id number] [address] [place] [address] Oct, [facility] [place] [address] [id number] [place] [id number] Sep, [facility] [place] [address] [id number] [place] [id number] Sep, [facility] [address] [id number] [address] [place] [address] Sep, Dental examination Z01.20 [facility] [address] [facility] [id number] [address] [place] [id number] Aug, [facility] [place] [address] [id number] [place] [id number] Aug, [facility] [address] [facility] [id number] [address] [place] [id number] Aug, [facility] [address] [facility] [id number] [address] [place] [id number] July, [facility] [address] [facility] [id number] [address] [place] [id number] July, [facility] [address] [id number] [address] [place] [id number] July, [facility] [place] [address] [id number] [place] [id number] July, [facility] [place] [address] [id number] [place] [id number] July, [facility] [place] [address] [id number] [place] [id number] July, [facility] [address] [id number] [address] [place] [id number] July, [facility] [place] [address] [id number] [place] [id number] Jun, Diabetes type 2, controlled E11.9 [facility] [place] [address] [id number] [place] [id number] Jun, [facility] [place] [address] [id number] [place] [id number] May, Diabetes type 1, uncontrolled E10.65 [facility] [place] [address] [id number] [place] [id number] May, [facility] [place] [address] [id number] [place] [id number] Apr, [facility] [place] [address] [id number] [place] [id number] Apr, [facility] [place] [address] [address] [id number] [place] [id number] Mar, [facility] [place] [address] [id number] [place] [id number] Mar, [facility] [place] [address] [id number] [place] [id number] Mar, [facility] [place] [address] [id number] [place] [id number] Mar, Diabetes type 1, uncontrolled E10.65 [facility] [place] [address] [id number] [place] [id number] Feb, [facility] [place] [address] [id number] [place] [id number] Feb, [facility] [place] [address] [id number] [place] [id number] Feb, [facility] [place] [address] [facility] [id number] [id number] Jan, [facility] [place] [address] [id number] [place] [id number] Jan, Dysuria R30.0 and Acute cystitis with he maturia N30.01 [facility] [place] [address] [id number] [place] [id number] Jan, [facility] [address] [facility] [id number] [place] [id number] Dec, Gastroenteritis K52.9 and Headache, unsp ecified headache type R51 [facility] [place] [address] [facility] [id number] [place] [id number] Dec, [facility] [place] [address] [facility] [id number] [place] [id number] Dec, Chronic back pain 724.5 [facility] [place] [address] [facility] [id number] [place] [id number] Dec, [facility] [place] [address] [facility] [id number] [place] [id number] Nov, Chronic back pain 724.5 and Diabetes frank litus without mention of complication, type II or unspecified type, uncontrolled 250.02 [facility] [address] [facility] [id number] [place] [id number] Nov, [facility] [address] [facility] [id number] [place] [id number] Oct, [facility] [address] [facility] [id number] [place] [id number] Sep, Diabetes mellitus without mention of com plication, type II or unspecified type, uncontrolled 250.02 and Urinary tract infection 599.0 [facility] [address] [facility] [id number] [place] [id number] July, [facility] [place] [address] [id number] [address] [place] [address] Jun, [facility] [place] [address] [facility] [id number] [address] [place] [address] Jun, [facility] [address] [facility] [id number] [place] [id number] May, [facility] [place] [address] [address] [id number] [address] [place] [address] May, [facility] [id number] [place] [id number] May, [facility] [address] [id number] [address] [place] [address], [place] [address] May, [facility] [place] [address] [id number] [place] [id number] Mar, [facility] [address] [id number] [address] [place] [address], [place] [address] Mar, [facility] [address] [id number] [address] [place] [address], [place] [address] Mar, [facility] [place] [address] [id number] [place] [id number] Mar, [facility] [place] [address] [id number] [place] [id number] Feb, [facility] [address] [id number] [address] [place] [address], [place] [address] Feb, [facility] [place] [address] [id number] [place] [id number] Feb, [facility] [address] [id number] [address] [place] [address], [place] [address] Feb, [facility] [address] [facility] [id number] [address] [place] [address], [place] [address] Feb, [facility] [place] [address] [id number] [place] [id number] Feb, [facility] [place] [address] [id number] [place] [id number] Feb, [facility] [address] [id number] [address] [place] [address], [place] [address] Feb, [facility] [address] [id number] [address] [place] [address], [place] [address] Feb, [facility] [place] [address] [id number] [place] [id number] Jan, [facility] [address] [id number] [address] [place] [address], [place] [address] Jan, [facility] [place] [address] [id number] [place] [id number] Jan, [facility] [address] [id number] [facility] [place] [address] Jan, [facility] [place] [address] [id number] [place] [id number] Dec, [facility] [address] [id number] [facility] [place] [address] Dec, [facility] [address] [id number] [address] [place] [address], [place] [address] Dec, [facility] [address] [id number] [address] [place] [address], [place] [address] Dec, [facility] [place] [address] [id number] [place] [id number] Dec, [facility] [address] [id number] [address] [place] [address], [place] [address] Dec, [facility] [place] [address] [id number] [place] [id number] Nov, [facility] [address] [id number] [address] [place] [address], [place] [address] Nov, [facility] [place] [address] [id number] [place] [id number] Oct, [facility] [address] [id number] [address] [place] [address], [place] [address] Oct, [facility] [address] [id number] [address] [place] [address], [place] [address] Sep, [facility] [place] [address] [id number] [place] [id number] Sep, [facility] [place] [address] [id number] [place] [id number] Aug, [facility] [address] [id number] [address] [place] [address], [place] [address] Aug, [facility] [place] [address] [id number] [place] [id number] July, [facility] [address] [id number] [address] [place] [address], [place] [address] July, [facility] [place] [address] [id number] [place] [id number] July, [facility] [address] [id number] [address] [place] [address], [place] [address] July, [facility] [address] [id number] [address] [place] [address], [place] [address] July, [facility] [address] [id number] [address] [place] [address], [place] [address] Jun, [facility] [place] [address] [id number] [place] [id number] Jun, [facility] [place] [address] [id number] [place] [id number] Jun, [facility] [address] [id number] [address] [place] [address], [place] [address] Jun, [facility] [address] [id number] [address] [place] [address], [place] [address] Jun, [facility] [address] [id number] [address] [place] [address], [place] [address] May, [facility] [place] [address] [id number] [place] [id number] Apr, [facility] [address] [id number] [address] [place] [address], [place] [address] Apr, [facility] [place] [address] [id number] [place] [id number] Apr, [facility] [address] [id number] [address] [place] [address], [place] [address] Apr, [facility] [address] [id number] [address] [place] [address], [place] [address] Mar, [facility] [address] [id number] [address] [place] [address], [place] [address] Mar, [facility] [address] [id number] [address] [place] [address] Mar, [facility] [place] [address] [id number] [place] [id number] Mar, [facility] [address] [id number] [address] [place] [address], [place] [address] Mar, [facility] [address] [id number] [address] [place] [address], [place] [address] Mar, [facility] [address] [id number] [address] [place] [address], [place] [address] Feb, [facility] [place] [address] [id number] [place] [id number] Feb, [facility] [address] [facility] [id number] [address] [place] [address], [place] [address] Feb, [facility] [place] [address] [id number] [place] [id number] Feb, [facility] [address] [id number] [address] [place] [address] Feb, [facility] [place] [address] [id number] [place] [id number] Feb, [facility] [address] [facility] [id number] [address] [place] [address], [place] [address] Feb, [facility] [place] [address] [id number] [place] [id number] Jan, [facility] [address] [id number] [address] [place] [address] Jan, [facility] [address] [id number] [address] [place] [address], [place] [address] Dec, [facility] [place] [address] [id number] [place] [id number] Dec, [facility] [address] [id number] [address] [place] [address], [place] [address] Nov, [facility] [place] [address] [id number] [place] [id number] Oct, [facility] [place] [address] [id number] [place] [id number] Oct, [facility] [place] [address] [id number] [place] [id number] Sep, [facility] [address] [facility] [id number] [address] [place] [address] Sep, [facility] [place] [address] [id number] [place] [id number] Sep, [facility] [place] [address] [id number] [place] [id number] Sep, [facility] [place] [address] [id number] [place] [id number] Sep, [facility] [place] [address] [id number] [place] [id number] Sep, [facility] [place] [address] [id number] [place] [id number] Sep, [facility] [address] [facility] [id number] [address] [place] [address] Aug, [facility] [place] [address] [id number] [place] [id number] Aug, [facility] [address] [facility] [id number] [address] [place] [address] July, [facility] [place] [address] [id number] [place] [id number] July, [facility] [address] [facility] [id number] [address] [place] [address] July, [facility] [place] [address] [id number] [place] [id number] Jun, [facility] [place] [address] [id number] [place] [id number] Jun, [facility] [place] [address] [id number] [place] [id number] Jun, [facility] [address] [facility] [id number] [address] [place] [address] Jun, [facility] [place] [address] [id number] [place] [id number] May, [facility] [place] [address] [id number] [place] [id number] May, [facility] [address] [id number] [address] [place] [address] May, [facility] [place] [address] [id number] [place] [id number] Apr, [facility] [address] [id number] [address] [place] [address], [place] [address] Apr, [facility] [place] [address] [id number] [place] [id number] Apr, [facility] [place] [address] [id number] [place] [id number] Apr, [facility] [address] [facility] [id number] [address] [place] [address], [place] [address] Mar, [facility] [place] [address] [id number] [place] [id number] Mar, [facility] [place] [address] [id number] [place] [id number] Mar, [facility] [place] [address] [id number] [place] [id number] Feb, [facility] [address] [facility] [id number] [address] [place] [address], [place] [address] Feb, [facility] [place] [address] [id number] [place] [id number] Jan, [facility] [place] [address] [id number] [place] [id number] Jan, [facility] [address] [facility] [id number] [address] [place] [address] Jan, [facility] [address] [facility] [id number] [address] [place] [address] Jan, [facility] [place] [address] [id number] [place] [id number] Jan, [facility] [address] [id number] [address] [place] [address] Jan, [facility] [place] [address] [id number] [place] [id number] Dec, [facility] [address] [id number] [address] [place] [address] Dec, [facility] [place] [address] [id number] [place] [id number] Dec, [facility] [address] [id number] [address] [place] [address] Dec, [facility] [place] [address] [id number] [place] [id number] Dec, [facility] [place] [address] [id number] [place] [id number] Nov, [facility] [place] [address] [id number] [place] [id number] Nov, [facility] [place] [address] [id number] [place] [id number] Oct, [facility] [place] [address] [id number] [place] [id number] Oct, [facility] [place] [address] [id number] [place] [id number] Sep, [facility] [place] [address] [id number] [place] [id number] Sep, [facility] [place] [address] [id number] [place] [id number] Sep, [facility] [place] [address] [id number] [place] [id number] Aug, [facility] [place] [address] [id number] [place] [id number] Aug, [facility] [place] [address] [id number] [place] [id number] July, [facility] [place] [address] [id number] [place] [id number] July, [facility] [place] [address] [id number] [place] [id number] July, [facility] [place] [address] [id number] [place] [id number] July, [facility] [address] [facility] [id number] [address] [place] [address] Jun, [facility] [place] [address] [id number] [place] [id number] Jun, [facility] [place] [address] [id number] [place] [id number] Jun, [facility] [place] [address] [id number] [place] [id number] Jun, [facility] [place] [address] [id number] [place] [id number] May, [facility] [place] [address] [id number] [place] [id number] May, [facility] [place] [address] [id number] [place] [id number] Apr, [facility] [place] [address] [id number] [place] [id number] Apr, [facility] [place] [address] [id number] [place] [id number] Apr, [facility] [place] [address] [id number] [place] [id number] Apr, [facility] [place] [address] [id number] [place] [id number] Apr, [facility] [address] [facility] [id number] [address] [place] [address] Apr, [facility] [place] [address] [id number] [place] [id number] Apr, [facility] [place] [address] [id number] [place] [id number] Apr, [facility] [place] [address] [id number] [place] [id number] Mar, [facility] [place] [address] [id number] [address] [place] [address], [place] [address] 26 Feb, 2011 [facility] [address] [id number] [address] [place] [address], [place] [address] Feb, [facility] [address] [id number] [address] [place] [address], [place] [address] Feb, [facility] [address] [id number] [address] [place] [address], [place] [address] 05 Feb, 2011 [facility] [address] [id number] [address] [place] [address], [place] [address] Jan, [facility] [address] [id number] [address] [place] [address], [place] [address] Jan, [facility] [address] [id number] [address] [place] [address], [place] [address] Jan, [facility] [address] [id number] [address] [place] [address], [place] [address] Dec, [facility] [address] [id number] [address] [place] [address], [place] [address] 24 Dec, 2010 [facility] [address] [id number] [address] [place] [address], [place] [address] 17 Aug, 2010 [facility] [address] [id number] [address] [place] [address], [place] [address] 16 Aug, 2010 [facility] [address] [id number] [address] [place] [address], [place] [address] 30 Feb, 2010 [facility] [address] [id number] [address] [place] [address], [place] [address] Feb, [facility] [address] [id number] [address] [place] [address], [place] [address] 29 Jan, 2010 [facility] [address] [id number] [address] [place] [address], [place] [address] Jan, [facility] [address] [id number] [address] [place] [address], [place] [address] 28 Dec, 2009 [facility] [place] [address] [id number] [address] [place] [address] Dec, [facility] [place] [address] [id number] [address] [place] [address] Dec, [facility] [place] [address] [id number] [address] [place] [address] May, [facility] [place] [address] [id number] [address] [place] [address] Mar, [facility] [place] [address] [id number] [address] [place] [address] Feb, [facility] [place] [address] [id number] [address] [place] [address] Feb, [facility] [place] [address] [id number] [address] [place] [address] Feb, [facility] [place] [address] [id number] [address] [place] [address] Jan, [facility] [place] [address] [id number] [address] [place] [address] Jan, [facility] [place] [address] [id number] [address] [place] [address] Oct, [facility] [place] [address] [id number] [address] [place] [address] July, [facility] [place] [address] [id number] [address] [place] [address] Apr, [facility] [place] [address] [id number] [address] [place] [address] Jan, [facility] [place] [address] [id number] [address] [place] [address] Jan, IMMUNIZATIONS No Known Immunizations SOCIAL HISTORY [...] Hospitalization History surgeries, childbirth Hospitalization History [facility]- Possible Stroke Hospitalization History Hospital stay due to acute renal didier mabel 10/2018
--- NOTE | 2019-07-26 17:39 | ED GU-Female ---
General Chief Complaint: - Urinary Stated Complaint: NOT URINATED IN 2 DAYS Source: patient Exam Limitations: no limitations History of Present Illness Date Seen by Provider: July 26, 2019 Time Seen by Provider: 17:37 Initial Comments To ER with reports of sensation of need to urinate but inability to do so for 48 hours. Timing/Duration: just prior to arrival Severity/Quality: moderate Location: suprapubic Radiation: none Activities at Onset: none Prior Genitourinary Problems: none Associated Symptoms: dysuria Allergies and Home Medications Allergies Coded Allergies: No Known Drug Allergies (Unverified , 11/05/09) Home Medications Amoxicillin/Potassium Clav 1 Each Tablet, 1 EACH PO BID Prescribed by: RICK SAMPSON on 06/03/19 1536 Aspirin 81 Mg Tablet.dr, 81 MG PO DAILY, (Reported) Cefuroxime Axetil 500 Mg Tablet, 500 MG PO BID Prescribed by: SREEKANTH GROVER on 10/26/18 1309 Cefuroxime Axetil 250 Mg Tablet, 250 MG PO BID Prescribed by: RICK SAMPSON on 12/08/181913 Cefuroxime Axetil 250 Mg Tablet, 250 MG PO BID Prescribed by: RICK SAMPSON on 07/26/19 1806 Fluconazole 200 Mg Tablet, 200 MG PO DAILY Prescribed by: RICK SAMPSON on 12/08/181913 Gabapentin 300 Mg Capsule, 900 MG PO HS, (Reported) TAKES 3 (300MG) CAPSULES Hydrocodone Bit/Acetaminophen 1 Each Tablet, 1 TAB PO Q6H PRN for PAIN-MODERATE, (Reported) Insulin Aspart 300 Units/3 Ml Solution, 0 SQ UD Prescribed by: RICK SAMPSON on 12/08/181913 Insulin Determir 1,000 Units/10 Ml Soln, 90 UNITS SC HS, (Reported) Liraglutide 0.6 Mg/0.1 Ml Pen.injctr, 1.8 MG SC DAILY, (Reported) Lovastatin 20 Mg Tablet, 20 MG PO HS, (Reported) Patient Home Medication List Home Medication List Reviewed: Yes Review of Systems Review of Systems Constitutional: see HPI; No chills, No fever EENTM: see HPI Respiratory: no symptoms reported Cardiovascular: no symptoms reported Genitourinary: see HPI Musculoskeletal: no symptoms reported Skin: no symptoms reported Psychiatric/Neurological: No Symptoms Reported Endocrine: No Symptoms Reported Past Fkrlnye-Xssqvy-Frisju Hx Patient Social History Type Used: Cigarettes 2nd Hand Smoke Exposure: No Recent Foreign Travel: No Contact w/Someone Who Travel: No Recent Hopitalizations: No Past Medical History Surgeries: Yes (GASTRIC BYPASS, BACK SX X 2) Abdominal, Orthopedic Respiratory: No Cardiac: Yes High Cholesterol, Hypertension Neurological: Yes Neuropathy 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 0.6oz. 84.319538pb; 29.00 BMI Method:Stated General Appearance: WD/WN, no apparent distress HEENT: PERRL/EOMI, normal ENT inspection Neck: non-tender, full range of motion Respiratory: normal breath sounds (titrated to), no respiratory distress, no accessory muscle use Gastrointestinal: normal bowel sounds, non tender Neurologic/Psychiatric: alert, normal mood/affect, oriented x 3 Skin: normal color, warm/dry Progress/Results/Core Measures Suspected Sepsis SIRS Temperature: Pulse: Respiratory Rate: Laboratory Tests 07/26/19 17:35: White Blood Count 11.2H Blood Pressure / Mean: Laboratory Tests 07/26/19 17:35: Creatinine 1.71H, Platelet Count 276, Total Bilirubin 0.4 Results/Orders Lab Results Laboratory Tests Test 07/26/19 17:35 Range/Units White Blood Count 11.2 H 4.3-11.0 10^3/uL Red Blood Count 4.68 4.35-5.85 10^6/uL Hemoglobin 12.2 11.5-16.0 G/DL Hematocrit 37 35-52 % Mean Corpuscular Volume 79 L 80-99 FL Mean Corpuscular Hemoglobin 26 25-34 PG Mean Corpuscular Hemoglobin Concent 33 32-36 G/DL Red Cell Distribution Width 15.0 H 10.0-14.5 % Platelet Count 276 130-400 10^3/uL Mean Platelet Volume 9.9 7.4-10.4 FL Neutrophils (%) (Auto) 75 42-75 % Lymphocytes (%) (Auto) 15 12-44 % Monocytes (%) (Auto) 8 0-12 % Eosinophils (%) (Auto) 2 0-10 % Basophils (%) (Auto) 0 0-10 % Neutrophils # (Auto) 8.4 H 1.8-7.8 X 10^3 Lymphocytes # (Auto) 1.7 1.0-4.0 X 10^3 Monocytes # (Auto) 0.9 0.0-1.0 X 10^3 Eosinophils # (Auto) 0.2 0.0-0.3 10^3/uL Basophils # (Auto) 0.0 0.0-0.1 10^3/uL Urine Color YELLOW Urine Clarity CLOUDY Urine pH 7.0 5-9 Urine Specific Andrew 1.015 L 1.016-1.022 Urine Protein 1+ H NEGATIVE Urine Glucose (UA) NEGATIVE NEGATIVE Urine Ketones NEGATIVE NEGATIVE Urine Nitrite POSITIVE H NEGATIVE Urine Bilirubin NEGATIVE NEGATIVE Urine Urobilinogen 1.0 < = 1.0 MG/DL Urine Leukocyte Esterase 3+ H NEGATIVE Urine RBC (Auto) 2+ H NEGATIVE Urine RBC >100 H /HPF Urine WBC TNTC H /HPF Urine Crystals NONE /LPF Urine Bacteria LARGE H /HPF Urine Casts NONE /LPF Urine Mucus NEGATIVE /LPF Urine Culture Indicated YES Sodium Level 134 L 135-145 MMOL/L Potassium Level 3.7 3.6-5.0 MMOL/L Chloride Level 96 L 98-107 MMOL/L Carbon Dioxide Level 24 21-32 MMOL/L Anion Gap 14 5-14 MMOL/L Blood Urea Nitrogen 31 H 7-18 MG/DL Creatinine 1.71 H 0.60-1.30 MG/DL Estimat Glomerular Filtration Rate 30 BUN/Creatinine Ratio 18 Glucose Level 255 H 70-105 MG/DL Calcium Level 9.4 8.5-10.1 MG/DL Corrected Calcium 9.5 8.5-10.1 MG/DL Total Bilirubin 0.4 0.1-1.0 MG/DL Aspartate Amino Transf (AST/SGOT) 19 5-34 U/L Alanine Aminotransferase (ALT/SGPT) 19 0-55 U/L Alkaline Phosphatase 108 40-136 U/L Total Protein 7.2 6.4-8.2 GM/DL Albumin 3.9 3.2-4.5 GM/DL My Orders Orders - RICK SAMPSON TECHNICAL SERVICES COORDINATOR Cbc With Automated Diff (07/26/19 17:36) Comprehensive Metabolic Panel (07/26/19 17:36) Ua Culture If Indicated (07/26/19 17:36) Ed Iv/Invasive Line Start (07/26/19 17:36) Lactated Ringers (Lr 1000 Ml Iv Solution (07/26/19 17:45) Zambrano Cath (07/26/19 17:36) Urine Culture (07/26/19 17:35) Ceftriaxone For Iv Use (Rocephin For I (07/26/19 18:30) Medications Given in ED Current Medications Medications Dose Ordered Sig/Edwar Route Start Time Stop Time Status Last Admin Dose Admin Ceftriaxone Sodium 1000 mg/ Sterile Water 10 ml @ 200 mls/hr ONCE ONCE IV 07/26/19 18:30 07/26/19 18:32 DC 07/26/19 18:22 200 MLS/HR Vital Signs/I&O 07/26/19 17:36 Temp 36.8 Pulse 101 Resp 16 B/P (MAP) 136/82 (100) Pulse Ox 94 O2 Delivery Room Air Capillary Refill : Departure Communication (Admissions) was unable to urinate. Bladder scanner revealed 394ml in bladder. Zambrano cath started. Will send her home with this in place for a few days, have primary care (or us) remove in in 3-5 days. Antibiotics. Impression Primary Impression: Urinary retention Additional Impression: DAQUAN (acute kidney injury) Disposition: HOME, SELF-CARE Condition: Stable Departure-Patient Inst. Decision time for Depature: 18:05 Referrals: CATRACHITA MOLINA (PCP) Primary Care Physician [facility] (Family) Primary Care Physician Patient Instructions: Acute Kidney Injury, Urinary Retention (DC) Add. Discharge Instructions: 1. Increase fluid intake. 2. Follow up with your doctor. Call tomorrow or Saturday to make an appointment to be seen to have this catheter removed this week. If theyre unable to remove it in a few days, return to ER and we can remove it. Antibiotics as directed. All discharge instructions reviewed with patient and/or family. Voiced understanding. Scripts Cefuroxime Axetil (Cefuroxime) 250 Mg Tablet 250 MG PO BID, #10 TAB Prov: RICK SAMPSON APRN 07/26/19 RICK SAMPSON APRN July 26, 2019 17:39
[2019-07-26 17:41] LABS: BASOPHILS % (AUTO) 0 % (0-10); EOSINOPHILS # (AUTO) 0.2 10^3/uL (0.0-0.3); EOSINOPHILS % (AUTO) 2 % (0-10); HEMATOCRIT 37 % (35-52); HEMOGLOBIN 12.2 G/DL (11.5-16.0); LYMPHOCYTES # (AUTO) 1.7 X 10^3 (1.0-4.0); LYMPHOCYTES % (AUTO) 15 % (12-44); MEAN CORPUSCULAR HEMOGLOBIN 26 PG (25-34); MEAN CORPUSCULAR HGB CONC 33 G/DL (32-36); MEAN CORPUSCULAR VOLUME 79 FL (80-99); MEAN PLATELET VOLUME 9.9 FL (7.4-10.4); MONOCYTES # (AUTO) 0.9 X 10^3 (0.0-1.0); MONOCYTES % (AUTO) 8 % (0-12); NEUTROPHILS # (AUTO) 8.4 X 10^3 (1.8-7.8); NEUTROPHILS % (AUTO) 75 % (42-75); PLATELET COUNT 276 10^3/uL (130-400); WHITE BLOOD COUNT 11.2 10^3/uL (4.3-11.0)
[2019-07-26] MEDS ORDERED: LACTATED RINGERS 1,000 ML IV SCH (17:45)
--- OUTSIDE RECORDS SUMMARY | 2019-07-26 17:45 | XMS REPORT | Continuity of Care Document ---
Author Organization Unknown Address Unknown Phone Unavailable Allergies Active Description Code Type Severity Reaction Onset Reported/Identified Relationship to Patient Clinical Status Yes No Known Drug Allergies [id number] Drug Allergy Unknown N/A 11/05/2009 Medications There [...] JOSE LUIS K 272.4 DYSLIPIDEMIA 10/10/2007 HELLWIG REPORTER ANCHOR, [place] E 250.02 DIABETES MELLITUS TYPE 2 - UNCOMPLICATED, UNCONTROLLED 10/10/2007 HELLWIG REPORTER ANCHOR, [place] E 272.4 DYSLIPIDEMIA 10/10/2007 SOLO DO, JOSE LUIS K 250.02 DIABETES MELLITUS TYPE 2 - UNCOMPLICATED, UNCONTROLLED 10/10/2007 SOLO DO, JOSE LUIS K 272.4 DYSLIPIDEMIA 10/10/2007 RADHALWIG REPORTER ANCHOR, [place] E 250.02 DIABETES MELLITUS TYPE 2 - UNCOMPLICATED, UNCONTROLLED 10/10/2007 RADHAWIG REPORTER ANCHOR, [place] E 272.4 DYSLIPIDEMIA 10/10/2007 HELLWIG REPORTER ANCHOR, [place] E 250.02 DIABETES MELLITUS TYPE 2 - UNCOMPLICATED, UNCONTROLLED 10/10/2007 HELLWIG REPORTER ANCHOR, [place] E 272.4 DYSLIPIDEMIA 10/10/2007 SOLO DO, JOSE LUIS K 250.02 DIABETES MELLITUS TYPE 2 - UNCOMPLICATED, UNCONTROLLED 10/10/2007 SOLO DO, JOSE LUIS K 272.4 DYSLIPIDEMIA 10/10/2007 SOLO DO, JOSE LUIS K 250.02 DIABETES MELLITUS TYPE 2 - UNCOMPLICATED, UNCONTROLLED 10/10/2007 SOLO DO, JOSE LUIS K 272.4 DYSLIPIDEMIA 10/10/2007 [facility], [place] E 250.02 DIABETES MELLITUS TYPE 2 - UNCOMPLICATED, UNCONTROLLED 10/10/2007 HELLWIG REPORTER ANCHOR, [place] E 272.4 DYSLIPIDEMIA 10/10/2007 SOLO DO, JOSE LUIS K 250.02 DIABETES MELLITUS TYPE 2 - UNCOMPLICATED, UNCONTROLLED 10/10/2007 SOLO DO, JOSE LUIS K 272.4 DYSLIPIDEMIA 10/10/2007 SOLO DO, JOSE LUIS K 250.02 DIABETES MELLITUS TYPE 2 - UNCOMPLICATED, UNCONTROLLED 10/10/2007 SOLO DO, JOSE LUIS K 272.4 DYSLIPIDEMIA 10/10/2007 [facility] ANCH[facility], [place] E 250.02 DIABETES MELLITUS TYPE 2 [...] - UNCOMPLICATED, CONTROLLED 10/14/2007 SOLO DO, JOSE LIUS K 338.4 PAIN CHRONIC SYNDROME 10/14/2007 SOLO DO, JOSE LUIS K 599.0 URINARY TRACT INFECTION 10/14/2007 SOLO DO, JOSE LUIS K 250.00 DIABETES MELLITUS TYPE 2 - UNCOMPLICATED, CONTROLLED 10/14/2007 SOLO DO, JOSE LUIS K 338.4 PAIN CHRONIC SYNDROME 10/14/2007 SOLO DO, JOSE LUIS K 599.0 URINARY TRACT INFECTION 10/14/2007 COLE REPORTER ANCHOR, [place] E 250.00 DIABETES MELLITUS TYPE 2 - UNCOMPLICATED, CONTROLLED 10/14/2007 TRACEWIG REPORTER ANCHOR [place] E 338.4 PAIN CHRONIC SYNDROME 10/14/2007 [...] TYPE 2 - UNCOMPLICATED, CONTROLLED 10/14/2007 RADHALWIG REPORTER ANCHOR, [place] E 338.4 PAIN CHRONIC SYNDROME 10/14/2007 TRACEWIG REPORTER ANCHOR, [place] E 599.0 URINARY TRACT INFECTION 10/14/2007 TRACEWIG REPORTER ANCHOR, [place] E 250.00 DIABETES MELLITUS TYPE 2 - UNCOMPLICATED, CONTROLLED 10/14/2007 RADHALWIG REPORTER ANCHOR, [place] E 338.4 PAIN CHRONIC SYNDROME 10/14/2007 RADHALWIG REPORTER ANCHOR, [place] E 599.0 URINARY TRACT INFECTION 10/14/2007 [...] INFECTION 11/28/2007 COREY REYES, MARITZA V72. 31 Simulation Software Engineer Exam, Routine 11/28/2007 COREY REYES, MARITZA V72. 31 Simulation Software Engineer Exam, Routine 11/28/2007 COREY REYES, MARITZA V72. 31 Simulation Software Engineer Exam, Routine 11/28/2007 MANNY VALDIVIA APRN V72.31 Simulation Software Engineer Exam, Routine 11/28/2007 V72.31 Simulation Software Engineer Exam, Routine 11/28/2007 V72.31 Simulation Software Engineer Exam, Routine 11/28/2007 V72.31 Simulation Software Engineer Exam, Routine 11/28/2007 V72.31 Simulation Software Engineer Exam, Routine 11/28/2007 V72.31 Simulation Software Engineer Exam, Routine 11/28/2007 V72.31 Simulation Software Engineer Exam, Routine 11/28/2007 SOLO DO, JOSE LUIS K V72.31 Simulation Software Engineer Exam, Routine 11/28/2007 SOLO DO, JOSE LUIS K V72.31 Simulation Software Engineer Exam, Routine 11/28/2007 [place] GALVAN APRN V72.31 Simulation Software Engineer Exam, Routine 11/28/2007 SOLO DO, JOSE LUIS K V72.31 Simulation Software Engineer Exam, Routine 11/28/2007 [place] GALVAN APRN E V72.31 Simulation Software Engineer Exam, Routine 11/28/2007 [place] GALVAN APRN E V72.31 Simulation Software Engineer Exam, Routine 11/28/2007 SOLO DO, JOSE LUIS K V72.31 Simulation Software Engineer Exam, Routine 11/28/2007 SOLO DO, JOSE LUIS K V72.31 Simulation Software Engineer Exam, Routine 11/28/2007 [place] GALVAN APRN E V72.31 Simulation Software Engineer Exam, Routine 11/28/2007 SOLO DO, JOSE LUIS K V72.31 Simulation Software Engineer Exam, Routine 11/28/2007 SOLO DO, JOSE LUIS K V72.31 Simulation Software Engineer Exam, Routine 11/28/2007 [place] GALVAN APRN E V72.31 Simulation Software Engineer Exam, Routine 11/28/2007 SOLO DO, JOSE LUIS K V72.31 Simulation Software Engineer Exam, Routine 01/14/2008 MARITZA NICOLE MD 305. [...] Pcv23, Streptococcus Pneumoniae [pneumococcus] 01/14/2008 305.1 TOBA COLLECTIONS ATTORNEY ABUSE 01/14/2008 V03.82 Pcv 7 Pcv23, Streptococcus Pneumoniae [pneumococcus] 01/14/2008 305.1 TOBA COLLECTIONS ATTORNEY ABUSE 01/14/2008 V03.82 Pcv 7 Pcv23, Streptococcus Pneumoniae [pneumococcus] 01/14/2008 305.1 TOBA COLLECTIONS ATTORNEY ABUSE 01/14/2008 V03.82 Pcv 7 Pcv23, Streptococcus Pneumoniae [pneumococcus] 01/14/2008 305.1 TOBA COLLECTIONS ATTORNEY ABUSE 01/14/2008 V03.82 Pcv 7 Pcv23, Streptococcus Pneumoniae [pneumococcus] 01/14/2008 305.1 TOBA COLLECTIONS ATTORNEY ABUSE 01/14/2008 V03.82 Pcv 7 Pcv23, Streptococcus Pneumoniae [pneumococcus] 01/14/2008 305.1 TOBA COLLECTIONS ATTORNEY ABUSE 01/14/2008 V03.82 Pcv 7 Pcv23, Streptococcus Pneumoniae [pneumococcus] 01/14/2008 SOLO DO JOSE LUIS K 305.1 TOBACCO ABUSE 01/14/2008 SOLO DO, JOSE LUIS K V03.82 Pcv7 Pcv23, Streptococcus Pneumoniae [pneumococcus] 01/14/2008 SOLO DO JOSE LUIS K 305.1 TOBACCO ABUSE 01/14/2008 SOLO DO JOSE LUIS K V03.82 Pcv7 Pcv23, Streptococcus Pneumoniae [pneumococcus] 01/14/2008 [facility] [place] [facility] E 305.1 TOBACCO ABUSE 01/14/2008 [facility] [place] [facility] E V03.82 Pcv7 Pcv23, Streptococcus Pneumoniae [pneumococcus] 01/14/2008 SOLO DO JOSE LUIS K 305.1 TOBACCO ABUSE 01/14/2008 SOLO DO JOSE LUIS K V03.82 Pcv7 Pcv23, Streptococcus Pneumoniae [pneumococcus] 01/14/2008 [facility] [place] [facility] E 305.1 TOBACCO ABUSE 01/14/2008 [facility] [place] [facility] E V03.82 Pcv7 Pcv23, Streptococcus Pneumoniae [pneumococcus] 01/14/2008 [facility] [place] [facility] E 305.1 TOBACCO ABUSE 01/14/2008 [facility] E V03.82 Pcv7 Pcv23, Streptococcus Pneumoniae [pneumococcus] 01/14/2008 SOLO DO JOSE LUIS K 305.1 TOBACCO ABUSE 01/14/2008 SOLO DO JOSE LUIS K V03.82 Pcv7 Pcv23, Streptococcus Pneumoniae [pneumococcus] 01/14/2008 SOLO DO JOSE LUIS K 305.1 TOBACCO ABUSE 01/14/2008 SOLO DO JOSE LUIS K V03.82 Pcv7 Pcv23, Streptococcus Pneumoniae [pneumococcus] 01/14/2008 [facility] E 305.1 TOBACCO ABUSE 01/14/2008 [facility] [place] E V03.82 Pcv7 Pcv23, Streptococcus Pneumoniae [pneumococcus] 01/14/2008 [place] PINEDA JOSE LUIS K 305.1 TOBACCO ABUSE 01/14/2008 [place]ER[place] PINEDA JOSE LUIS K V03.82 Pcv7 Pcv23, Streptococcus Pneumoniae [pneumococcus] 01/14/2008 GER[place]IA PINEDA, JOSE LUIS K 305.1 TOBACCO ABUSE 01/14/2008 [place] PINEDA JOSE LUIS K V03.82 Pcv7 Pcv23, Streptococcus Pneumoniae [pneumococcus] 01/14/2008 [facility] [place] [facility] 305.1 TOBACCO ABUSE 01/14/2008 [facility] [place] [facility] V03.82 Pcv7 Pcv23, [...] K 401.1 ESSENTIAL HYPERTENSION BENIGN 04/15/2008 HELLWIG REPORTER ANCHOR, [place] E 357.9 POLYNEUROPATHY INFLAMMATORY 04/15/2008 HELLWIG REPORTER ANCHOR, [place] E 401.1 ESSENTIAL HYPERTENSION BENIGN 04/15/2008 SOLO DO, JOSE LUIS K 357.9 POLYNEUROPATHY INFLAMMATORY 04/15/2008 SOLO DO, JOSE LUIS K 401.1 ESSENTIAL HYPERTENSION BENIGN 04/15/2008 HELLWIG REPORTER ANCHOR, [place] E 357.9 POLYNEUROPATHY INFLAMMATORY 04/15/2008 HELLWIG REPORTER ANCHOR, [place] E 401.1 ESSENTIAL HYPERTENSION BENIGN 04/15/2008 HELLWIG REPORTER ANCHOR, [place] E 357.9 POLYNEUROPATHY INFLAMMATORY 04/15/2008 HELLWIG REPORTER ANCHOR, [place] E 401.1 ESSENTIAL HYPERTENSION BENIGN 04/15/2008 SOLO DO, JOSE LUIS K 357.9 POLYNEUROPATHY INFLAMMATORY 04/15/2008 SOLO DO, JOSE LUIS K 401.1 ESSENTIAL HYPERTENSION BENIGN 04/15/2008 SOLO DO, JOSE LUIS K 357.9 POLYNEUROPATHY INFLAMMATORY 04/15/2008 SOLO DO, JOSE LUIS K 401.1 ESSENTIAL HYPERTENSION BENIGN 04/15/2008 HELLWIG REPORTER ANCHOR, [place] E 357.9 POLYNEUROPATHY INFLAMMATORY 04/15/2008 HELLWIG REPORTER ANCHOR, [place] E 401.1 ESSENTIAL HYPERTENSION BENIGN 04/15/2008 SOLO DO, JOSE LUIS K 357.9 POLYNEUROPATHY INFLAMMATORY 04/15/2008 SOLO DO, JOSE LUIS K 401.1 ESSENTIAL HYPERTENSION BENIGN 04/15/2008 SOLO DO, JOSE LUIS K 357.9 POLYNEUROPATHY INFLAMMATORY 04/15/2008 SOLO DO, JOSE LUIS K 401.1 ESSENTIAL HYPERTENSION BENIGN 04/15/2008 HELLWIG REPORTER ANCHOR, [place] E 357.9 POLYNEUROPATHY INFLAMMATORY 04/15/2008 HELLWIG REPORTER ANCHOR, [place] E 401.1 ESSENTIAL HYPERTENSION BENIGN 04/15/2008 SOLO DO, JOSE LUIS K 357.9 POLYNEUROPATHY INFLAMMATORY 04/15/2008 SOLO DO, JOSE LUIS K 401.1 ESSENTIAL HYPERTENSION BENIGN 10/18/2008 COREY REYES, MARITZA 528. 9 Mouth Pain 10/18/2008 MARITZA NICOLE [...] JOSE LUIS K 786.2 Cough 10/18/2008 HELLWIG REPORTER ANCHOR, [place] E 528.9 Mouth Pain 10/18/2008 HELLWIG REPORTER ANCHOR, [place] E 780.60 Fever [as Symptom] 10/18/2008 HELLWIG REPORTER ANCHOR, [place] E 786.2 Cough 10/18/2008 SOLO DO, JOSE LUIS K 528.9 Mouth Pain 10/18/2008 SOLO DO, JOSE LUIS K 780.60 Fever [as Symptom] 10/18/2008 SOLO DO, JOSE LUIS K 786.2 Cough 10/18/2008 HELLWIG REPORTER ANCHOR, [place] E 528.9 Mouth Pain 10/18/2008 HELLWIG REPORTER ANCHOR, [place] E 780.60 Fever [as Symptom] 10/18/2008 HELLWIG REPORTER ANCHOR, [place] E 786.2 Cough 10/18/2008 HELLWIG REPORTER ANCHOR, [place] E 528.9 Mouth Pain 10/18/[address] [facility] [place] E 780.60 Fever [as Symptom] 10/18/2008 HELLWIG REPORTER ANCHOR, [place] E 786.2 Cough 10/18/2008 SOLO DO, JOSE LUIS K 528.9 Mouth Pain 10/18/2008 SOLO DO, JOSE LUIS K 780.60 Fever [as Symptom] 10/18/2008 SOLO DO, JOSE LUIS K 786.2 Cough 10/18/2008 SOLO DO, JOSE LUIS K 528.9 Mouth Pain 10/18/2008 SOLO DO, JOSE LUIS K 780.60 Fever [as Symptom] 10/18/2008 SOLO DO, JOSE LUIS K 786.2 Cough 10/18/2008 HELLWIG REPORTER ANCHOR, [place] E 528.9 Mouth Pain 10/18/2008 [facility], [place] E 780.60 Fever [as Symptom] 10/18/2008 HELLWIG REPORTER ANCHOR, [place] E 786.2 Cough 10/18/2008 SOLO DO, [...] RADHAHELENE SINGH [place] E 276.51 Dehydration 10/29/2008 [facility], [place] E 787.01 Nausea With Vomiting 10/29/2008 HELWIG SAMANTHA [place] E 276.51 Dehydration 10/29/2008 HELWIG REPORTER ANCHOR, [place] E 787.01 Nausea With Vomiting 10/29/2008 SOLO DO, JOSE LUIS K 276.51 Dehydration 10/29/2008 SOLO DO, JOSE LUIS K 787.01 Nausea With Vomiting 10/29/2008 SOLO DO, JOSE LUIS K 276.51 Dehydration 10/29/2008 SOLO DO, JOSE LUIS K 787.01 Nausea With Vomiting 10/29/[address] [facility] [place] E 276.51 Dehydration 10/29/2008 [facility] [place] E 787.01 Nausea With Vomiting 10/29/2008 SOLO DO, JOSE LUIS K 276.51 Dehydration 10/29/2008 SOLO DO, JOSE LUIS K 787.01 Nausea With Vomiting 10/29/2008 SOLO DO, JOSE LUIS K 276.51 Dehydration 10/29/2008 SOLO DO, JOSE LUIS K 787.01 Nausea With Vomiting 10/29/[address] [facility] [place] E 276.51 Dehydration 10/29/2008 [facility] [place] E 787.01 Nausea With Vomiting [...] DO, JOSE LUIS K 724.5 BACKACHE 02/01/[address] [facility] [place] E 250.40 DIABETIC NEPHROPATHY 02/01/[address] [facility] REPORTER ANCHOR, [place] E 724.5 BACKACHE 02/01/2009 SOLO DO, JOSE LUIS K 250.40 DIABETIC NEPHROPATHY 02/01/2009 SOLO DO, JOSE LUIS K 724.5 BACKACHE 02/01/[address] [facility] [place] E 250.40 DIABETIC NEPHROPATHY 02/01/2009 RADHAHELENE SINGH, [place] E 724.5 BACKACHE 02/01/2009 RADHAHELENE SINGH [place] E 250.40 DIABETIC NEPHROPATHY 02/01/[address] [facility] [place] E 724.5 BACKACHE 02/01/2009 SOLO DO, JOSE LUIS K 250.40 DIABETIC NEPHROPATHY 02/01/2009 SOLO DO, JOSE LUIS K 724.5 BACKACHE 02/01/2009 SOLO DO, JOSE LUIS K 250.40 DIABETIC NEPHROPATHY 02/01/2009 SOLO DO, JOSE LUIS K 724.5 BACKACHE 02/01/2009 RADHAHELENE REPORTER ANCHOR, [place] E 250.40 DIABETIC NEPHROPATHY 02/01/2009 RADHAWIG REPORTER ANCHOR, [place] E 724.5 BACKACHE 02/01/2009 SOLO DO, [...] LUIS K 477.9 Allergic Rhinitis 03/14/2009 HELLWIG REPORTER ANCHOR, [place] E 461.9 Sinusitis Acute 03/14/2009 HELLWIG REPORTER ANCHOR, [place] E 477.9 Allergic Rhinitis 03/14/2009 SOLO DO, JOSE LUIS K 461.9 Sinusitis Acute 03/14/2009 SOLO DO, JOSE LUIS K 477.9 Allergic Rhinitis 03/14/2009 HELLWIG REPORTER ANCHOR, [place] E 461.9 Sinusitis Acute 03/14/2009 HELLWIG REPORTER ANCHOR, [place] E 477.9 Allergic Rhinitis 03/14/2009 HELLWIG REPORTER ANCHOR, [place] E 461.9 Sinusitis Acute 03/14/2009 HELLWIG REPORTER ANCHOR, [place] E 477.9 Allergic Rhinitis 03/14/2009 SOLO DO, JOSE LUIS K 461.9 Sinusitis Acute 03/14/2009 SOLO DO, JOSE LUIS K 477.9 Allergic Rhinitis 03/14/2009 SOLO DO, JOSE LUIS K 461.9 Sinusitis Acute 03/14/2009 SOLO DO, JOSE LUIS K 477.9 Allergic Rhinitis 03/14/[address] [facility], [place] E 461.9 Sinusitis Acute 03/14/2009 HELLWIG REPORTER ANCHOR, [place] E 477.9 Allergic Rhinitis 03/14/2009 SOLO DO, JOSE LUIS K 461.9 Sinusitis Acute 03/14/2009 SOLO DO, JOSE LUIS K 477.9 Allergic Rhinitis 03/14/2009 SOLO DO, JOSE LUIS K 461.9 Sinusitis Acute 03/14/2009 SOLO DO, JOSE LUIS K 477.9 Allergic Rhinitis 03/14/[address] [facility]CH[facility], [place] E 461.9 Sinusitis Acute 03/14/[address] [facility]CH[facility], [place] E 477.9 Allergic Rhinitis 03/14/2009 SOLO DO, JOSE LUIS K 461.9 Sinusitis Acute 03/14/2009 SOLO DO, JOSE LUIS K 477.9 Allergic Rhinitis 05/13/2009 MARITZA NICOLE MD 333. 94 RESTLESS LEGS SYNDROME 05/13/2009 MAIRTZA NICOLE MD 724. 2 lower back pain [...] K 724.2 lower back pain 05/13/[address] [facility] [place] E 333.94 RESTLESS LEGS SYNDROME 05/13/[address] [facility], [place] E 724.2 lower back pain [...] SOLO DO 535.50 Gastritis Unspec 08/23/2009 HELLWIG REPORTER ANCHOR, [place] E 535.50 Gastritis Unspec 08/23/2009 SOLO [...] MD 285. 9 Anemia Unspecified 11/22/2009 MARITZA NIOCLE MD 780. 52 Insomnia Unspecified 11/22/2009 MARITZA [...] APRNE E 285.9 Anemia Unspecified 11/22/2009 HELLWIG REPORTER ANCHOR, [place] E 780.52 Insomnia Unspecified 11/22/[address] [facility]CH[facility], [place] E 285.9 Anemia Unspecified 11/22/2009 HELWIG REPORTER ANCHOR, [place] E 780.52 Insomnia Unspecified 11/22/2009 SOLO DO, JOSE LUIS K 285.9 Anemia Unspecified 11/22/2009 SOLO DO, JOSE LUIS K 780.52 Insomnia Unspecified 11/22/2009 SOLO DO, JOSE LUIS K 285.9 Anemia Unspecified 11/22/2009 SOLO DO, JOSE LUIS K 780.52 Insomnia Unspecified 11/22/[address] [facility] RE[facility] ANCH[facility], [place] E 285.9 Anemia Unspecified 11/22/[address] [facility] RE[facility] ANCH[facility], [place] E 780.52 Insomnia Unspecified 11/22/2009 SOLO DO, JOSE LUIS K 285.9 Anemia Unspecified 11/22/2009 SOLO DO, JOSE LUIS K 780.52 Insomnia Unspecified 11/22/2009 SOLO DO, JOSE LUIS K 285.9 Anemia Unspecified 11/22/2009 SOLO DO, JOSE LUIS K 780.52 Insomnia Unspecified 11/22/[address] [facility] RE[facility] ANCH[facility], [place] E 285.9 Anemia Unspecified 11/22/[address] [facility], [place] E 780.52 Insomnia Unspecified 11/22/2009 SOLO [...] JOSE LUIS K 724.3 Sciatica 03/09/2010 HELLHELENE REPORTER ANCHOR [place] E 724.3 Sciatica 03/09/2010 HELKRISTOPHER REPORTER ANCHORPHILLIPGEORGIA E 724.3 Sciatica 03/09/2010 SOLO DO, JOSE LUIS K 724.3 Sciatica 03/09/2010 SOLO DO, JOSE LUIS K 724.3 Sciatica 03/09/2010 HELLHELENE REPORTER ANCHOR, [place] E 724.3 Sciatica 03/09/2010 SOLO DO, JOSE LUIS K 724.3 Sciatica 03/09/2010 SOLO DO, JOSE LUIS K 724.3 Sciatica 03/09/2010 [place] GALVAN APRN E 724.3 Sciatica 03/09/2010 SOLO DO, JOSE LUIS K 724.3 Sciatica 03/13/2010 Ot 280.9 08/17/2010 MARITZA NICOLE MD 692. 9 CONTACT DERMATITIS AND OTHER ECZEMA UNSPECIFIED CAUSE 08/17/2010 MARTIZA NICOLE MD 692. 9 CONTACT DERMATITIS AND [...] AND OTHER ECZEMA UNSPECIFIED CAUSE 08/17/2010 HELLWIG REPORTER ANCHOR, [place] E 692.9 CONTACT DERMATITIS AND OTHER ECZEMA UNSPECIFIED CAUSE 08/17/2010 SOLO DO, JOSE LUIS K 692.9 CONTACT DERMATITIS AND OTHER ECZEMA UNSPECIFIED CAUSE 08/17/2010 HELLWIG REPORTER ANCHOR, [place] E 692.9 CONTACT DERMATITIS AND OTHER ECZEMA UNSPECIFIED CAUSE 08/17/2010 HELLWIG REPORTER ANCHOR, [place] E 692.9 CONTACT DERMATITIS AND OTHER ECZEMA UNSPECIFIED CAUSE 08/17/2010 SOLO DO, JOSE LUIS K 692.9 CONTACT DERMATITIS AND OTHER ECZEMA UNSPECIFIED CAUSE 08/17/2010 SOLO DO, JOSE LUIS K 692.9 CONTACT DERMATITIS AND OTHER ECZEMA UNSPECIFIED CAUSE 08/17/2010 HELLWIG REPORTER ANCHOR, [place] E 692.9 CONTACT DERMATITIS AND OTHER ECZEMA UNSPECIFIED CAUSE 08/17/2010 SOLO DO, JOSE LUIS K 692.9 CONTACT DERMATITIS AND OTHER ECZEMA UNSPECIFIED CAUSE 08/17/2010 SOLO DO, JOSE LUIS K 692.9 CONTACT DERMATITIS AND OTHER ECZEMA UNSPECIFIED CAUSE 08/17/2010 COLE REPORTER ANCHOR, [place] E 692.9 CONTACT DERMATITIS AND OTHER [...] LUIS K 357.2 POLYNEUROPATHY DIABETIC 06/05/[address] [facility] [place] E 266.2 VITAMIN B12 DEFICIENCY 06/05/[address] [facility] NARAYAN APRNSIE E 357.2 POLYNEUROPATHY DIABETIC 06/05/2011 SOLO DO, JOSE LUIS K 266.2 VITAMIN B12 DEFICIENCY 06/05/2011 SOLO DO, JOSE LUIS K 357.2 POLYNEUROPATHY DIABETIC 06/05/2011 RADHAPHILLIP NARAYAN APRNSIE E 266.2 VITAMIN B12 DEFICIENCY 06/05/[address] [facility] APRNSIE E 357.2 POLYNEUROPATHY DIABETIC 06/05/2011 [...] LUIS K 357.2 POLYNEUROPATHY DIABETIC 06/05/[address] [facility] [place] E 266.2 VITAMIN B12 DEFICIENCY [...] JOSE LUIS K V76.12 MAMMOGRAM SCREENING 09/28/2011 [facility] APRN 338.29 CHRONIC PAIN 09/28/2011 [place] [...] LUIS K 706.2 SEBACEOUS CYST 12/25/2011 HELLWIG REPORTER ANCHOR, [place] E 706.2 SEBACEOUS CYST 12/25/2011 [place] PINEDA JOSE LUIS K 706.2 SEBACEOUS CYST 12/25/2011 [place] GALVAN APRN E 706.2 SEBACEOUS CYST 12/25/2011 PHILLIP GALVAN APRNSIE E 706.2 SEBACEOUS CYST 12/25/2011 [place] PINEDA [...] GALVAN APRN 724.4 LUMBAR RADICULOPATHY 04/01/2012 JOSE LUSI SOLO DO K 724.4 LUMBAR RADICULOPATHY 04/01/2012 [...] E 796.2 Blood Pressure Isolated Elevated 06/24/2012 SLOO DO, JOSE LUIS K 796.2 Blood Pressure [...] Ot V57.1 PHYSICAL THERAPY NEC 02/19/2013 HELLWIG REPORTER ANCHOR, [place] E V78.0 ANEMIA SCREENING 02/19/2013 SOLO DO, JOSE LUIS K V78.0 ANEMIA SCREENING 02/19/2013 HELLWIG REPORTER ANCHOR, [place] E V78.0 ANEMIA SCREENING 02/19/2013 HELLWIG REPORTER ANCHOR, [place] E V78.0 ANEMIA SCREENING 02/19/2013 SOLO DO, JOSE LUIS K V78.0 ANEMIA SCREENING 02/19/2013 SOLO DO, JOSE LUIS K V78.0 ANEMIA SCREENING 02/19/2013 HELLWIG REPORTER ANCHOR, [place] E V78.0 ANEMIA SCREENING 02/19/2013 SOLO DO, JOSE LUIS K V78.0 ANEMIA SCREENING 02/19/2013 SOLO DO, JOSE LUIS K V78.0 ANEMIA SCREENING 02/19/2013 HELLWIG REPORTER ANCHOR, [place] E V78.0 ANEMIA SCREENING 02/19/2013 SOLO DO, JOSE LUIS K V78.0 ANEMIA SCREENING 03/16/2013 SOLO DO, JOSE LUIS K 214.8 LIPOMA OF OTHER SPECIFIED SITES 03/16/2013 SOLO DO, JOSE LUIS K 729.5 PAIN IN LIMB 03/16/2013 HELLWIG REPORTER ANCHOR, [place] E 214.8 LIPOMA OF OTHER SPECIFIED SITES 03/16/2013 HELLWIG REPORTER ANCHOR, [place] E 729.5 PAIN IN LIMB 03/16/2013 HELLWIG REPORTER ANCHOR, [place] E 214.8 LIPOMA OF OTHER SPECIFIED SITES 03/16/2013 HELLWIG REPORTER ANCHOR [place] E 729.5 PAIN IN LIMB 03/16/2013 SOLO DO, JOSE LUIS K 214.8 LIPOMA OF OTHER SPECIFIED SITES 03/16/2013 SOLO DO, JOSE LUIS K 729.5 PAIN IN LIMB 03/16/2013 SOLO DO, JOSE LUIS K 214.8 LIPOMA OF OTHER SPECIFIED SITES 03/16/2013 SOLO DO, JOSE LUIS K 729.5 PAIN IN LIMB 03/16/2013 HELLWIG REPORTER ANCHOR, [place] E 214.8 LIPOMA OF OTHER SPECIFIED SITES 03/16/2013 HELLWIG REPORTER ANCHOR, [place] E 729.5 PAIN IN LIMB 03/16/2013 [...] INFECTION, SITE NOT SPECIF 05/16/2017 RICK SAMPSON REPORTER ANCHOR Ot R53 .1 WEAKNESS 05/16/2017 RICK SAMPSON REPORTER ANCHOR Ot Z79.84 PULP PRESS TENDER (CURRENT) USE OF ORAL HYPOGLYC 05/16/2017 Ot 724.02 SPI NAL STENOSIS, LUMBAR REG, W/OUT NEURO 05/16/2017 Ot 781.2 ABNO RMALITY OF GAIT 05/16/2017 [place] GALVAN REPORTER ANCHOR Ot 729.81 SWELLING OF LIMB 06/03/2017 LUKE DO, ANURADHA K Ot E11.40 TYPE 2 DIABETES MELLITUS WITH DIABETIC N 06/03/2017 LUKE DO, ANURADHA K Ot E11.649 TYPE 2 DIABETES MELLITUS WITH HYPOGLYCEM 06/03/2017 LUKE DO, ANURADHA K Ot E16.2 HYPOGLYCEMIA, UNSPECIFIED 06/03/2017 LUKE DO, ANURADHA K Ot E78.00 PURE HYPERCHOLESTEROLEMIA, UNSPECIFIED 06/03/2017 LUKE DO, ANURADHA K Ot F32.9 MAJOR DEPRESSIVE DISORDER, SINGLE EPISOD 06/03/2017 LUKE DO, ANURADHA K Ot F41.9 ANXIETY DISORDER, UNSPECIFIED 06/03/2017 LUKE DO, ANURADHA K Ot G25.81 RESTLESS LEGS SYNDROME 06/03/2017 LUKE DO, ANURADHA K Ot I10 ESSENTIAL (PRIMARY) HYPERTENSION 06/03/2017 LUKE DO, ANURADHA K Ot N39.0 URINARY TRACT INFECTION, SITE NOT SPECIF 06/03/2017 LUKE DO, ANURADHA K Ot Z79.84 SHELTER (CURRENT) USE OF ORAL HYPOGLYC 06/03/2017 LUKE [...] DEPRESSIVE DISORDER, SINGLE EPISOD 06/05/2017 LUKE ANURADHA PINEAD Ot F41.9 ANXIETY DISORDER, UNSPECIFIED 06/05/2017 LUKE HEYDI PINEDAA K Ot G25.81 RESTLESS LEGS SYNDROME 06/05/2017 LUKE DO ANURADHA K Ot I10 ESSENTIAL (PRIMARY) HYPERTENSION 06/05/2017 LUKE ANURADHA PINEDA Ot N39.0 URINARY TRACT INFECTION, SITE NOT SPECIF 06/05/2017 LUKE DO ANURADHA K Ot Z79.84 SHELTER (CURRENT) USE OF ORAL HYPOGLYC 06/05/2017 LUKE [...] 09/20/2017 PAOLA ESCAMILLA MD Ot Z79 .4 SHELTER (CURRENT) USE OF INSULIN 09/24/2017 PAOLA ESCAMILLA MD, Ot E11.36 TYPE 2 DIABETES MELLITUS WITH DIABETIC C 09/24/2017 PAOLA ESCAMILLA MD Ot I10 ESSENTIAL (PRIMARY) HYPERTENSION 09/24/2017 PAOLA ESCAMILLA MD Ot Z79 .4 PULP PRESS TENDER (CURRENT) USE OF INSULIN 10/11/2017 PAOLA ESCAMILLA MD, Ot E11.36 TYPE 2 DIABETES MELLITUS WITH DIABETIC C 10/11/2017 PAOLA ESCAMILLA MD, Ot I10 ESSENTIAL (PRIMARY) HYPERTENSION 10/11/2017 PAOLA ESCAMILLA MD Ot Z79 .4 PULP PRESS TENDER (CURRENT) USE OF INSULIN 10/11/2017 PAOLA ESCAMILLA [...] 10/24/2018 SREEKANTH GROVER MD Ot Z79. 4 SHELTER (CURRENT) USE OF INSULIN 10/24/2018 SREEKANTH GROVER [...] 10/24/2018 SREEKANTH GROVER MD Ot Z79. 4 SHELTER (CURRENT) USE OF INSULIN 10/24/2018 LENROE REYES, SREEKANTH Pisano Ot Z87.891 PERSONAL HISTORY [...] 10/24/2018 SREEKANTH GROVER MD Ot Z79. 4 SHELTER (CURRENT) USE OF INSULIN 10/24/2018 SREEKANTH GROVER [...] 10/26/2018 SREEKANTH GROVER MD Ot Z79. 4 SHELTER (CURRENT) USE OF INSULIN 10/26/2018 SREEKANTH GROVER [...] Ot I10 ESSENTIAL (PRIMARY) HYPERTENSION 10/28/2018 DAISY NVOA MD Ot Z79. 4 PULP PRESS TENDER (CURRENT) USE OF INSULIN 10/28/2018 DAISY NOVA MD Ot Z79. 82 SHELTER (CURRENT) USE OF ASPIRIN 10/28/2018 DAISY NOVA MD Ot Z87.891 PERSONAL HISTORY OF NICOTINE DEPENDENCE 10/28/2018 DAISY NOVA MD Ot Z98. 84 BARIATRIC SURGERY STATUS 10/28/2018 Ot 781.2 ABNO RMALITY OF GAIT 10/28/2018 HELLWIG, [place] E REPORTER ANCHOR Ot 729.81 SWELLING OF LIMB 10/28/2018 ANDI [...] 10/31/2018 DAISY NOVA MD Ot Z79. 4 SHELTER (CURRENT) USE OF INSULIN 10/31/2018 DAISY NOVA MD Ot Z79. 82 PULP PRESS TENDER (CURRENT) USE OF ASPIRIN 10/31/2018 DAISY NOVA [...] 12/08/2018 RICK SAMPSON APRN Ot Z79 .4 SHELTER (CURRENT) USE OF INSULIN 12/08/2018 RICK SAMPSON APRN Ot Z79.82 PULP PRESS TENDER (CURRENT) USE OF ASPIRIN 12/08/2018 RICK SAMPSON [...] 12/12/2018 RICK SAMPSON APRN Ot Z79 .4 SHELTER (CURRENT) USE OF INSULIN 12/12/2018 RICK SAMPSON APRN Ot Z79.82 SHELTER (CURRENT) USE OF ASPIRIN 12/12/2018 RICK SAMPSON [...] 01/09/2019 OLSON DO, NANCY L Ot Z79.4 SHELTER (CURRENT) USE OF INSULIN 01/09/2019 OLSON DO, NANCY L Ot Z79.8 2 SHELTER (CURRENT) USE OF ASPIRIN 01/13/2019 OLSON DO, [...] 01/13/2019 OLSON DO, NANCY L Ot Z79.4 PULP PRESS TENDER (CURRENT) USE OF INSULIN 01/13/2019 OLSON DO, NANCY L Ot Z79.8 2 PULP PRESS TENDER (CURRENT) USE OF ASPIRIN 01/15/2019 OLSON DO, [...] H10.1 3 ACUTE ATOPIC CONJUNCTIVITIS, BILATERAL 01/15/2019 OLSON DO, NANCY L Ot H57.8 9 OTHER SPECIFIED DISORDERS OF EYE AND ADN 01/15/2019 OLSON DO, NANCY L Ot I10 ESSENTIAL (PRIMARY) HYPERTENSION 01/15/2019 OLSON DO, NANCY L Ot Z79.4 SHELTER (CURRENT) USE OF INSULIN 01/15/2019 OLSON DO, NANCY L Ot Z79.8 2 PULP PRESS TENDER (CURRENT) USE OF ASPIRIN 04/10/2019 CATRACHITA MOLINA CFNP Ot R29.6 REPEATED FALLS 04/10/2019 CATRACHITA MOLINA CFNP Ot R29.898 OTH SYMPTOMS AND SIGNS INVOLVING THE MUS 04/28/2019 CATRACHITA MOLINA CFNP Ot R29.6 REPEATED FALLS 04/28/2019 MOLINA, CATRACHITA R CFNP Ot R29.898 OTH SYMPTOMS AND SIGNS INVOLVING THE MUS 06/03/2019 RICK SAMPSON APRN Ot E11.40 TYPE 2 DIABETES MELLITUS WITH DIABETIC N 06/03/2019 RICK SAMPSON APRN Ot E78.00 PURE HYPERCHOLESTEROLEMIA, UNSPECIFIED 06/03/2019 RICK SAMPSON APRN Ot F32 .9 MAJOR DEPRESSIVE DISORDER, SINGLE EPISOD 06/03/2019 RICK SAMPSON APRN Ot F41 .9 ANXIETY DISORDER, UNSPECIFIED 06/03/2019 RICK SAMPSON APRN Ot G25.81 RESTLESS LEGS SYNDROME 06/03/2019 RICK SAMPSON APRN Ot I10 ESSENTIAL (PRIMARY) HYPERTENSION 06/03/2019 RICK SAMPSON APRN Ot L03.113 CELLULITIS OF RIGHT UPPER LIMB 06/03/2019 RICK SAMPSON APRN Ot M54 .9 DORSALGIA, UNSPECIFIED 06/03/2019 RICK SAMPSON APRN Ot M79.89 OTHER SPECIFIED SOFT TISSUE DISORDERS 06/03/2019 RICK SAMPSON APRN Ot Z79 .4 SHELTER (CURRENT) USE OF INSULIN 06/03/2019 RICK SAMPSON APRN Ot Z79.82 PULP PRESS TENDER (CURRENT) USE OF ASPIRIN 06/03/2019 RICK SAMPSON APRN Ot Z79.899 OTHER PULP PRESS TENDER (CURRENT) DRUG THERAPY 06/03/2019 RICK SAMSPON APRN Ot Z98.84 BARIATRIC SURGERY STATUS 06/04/2019 SAMPSON, PETER J REPORTER ANCHOR Ot E11.40 TYPE 2 DIABETES MELLITUS WITH DIABETIC N 06/04/2019 CAMILLA, RICK Lainez APRN Ot E78.00 PURE HYPERCHOLESTEROLEMIA, UNSPECIFIED 06/04/2019 CAMILLA, RICK Lainez APRN Ot F32 .9 MAJOR DEPRESSIVE DISORDER, SINGLE EPISOD 06/04/2019 SAMPSON, RICK Lainez REPORTER ANCHOR Ot F41 .9 ANXIETY DISORDER, UNSPECIFIED 06/04/2019 SAMPSON, RICK Lainez REPORTER ANCHOR Ot G25.81 RESTLESS LEGS SYNDROME 06/04/2019 RICK SAMPSON REPORTER ANCHOR Ot I10 ESSENTIAL (PRIMARY) HYPERTENSION 06/04/2019 SAMPSON, RICK Lainez REPORTER ANCHOR Ot L03.113 CELLULITIS OF RIGHT UPPER LIMB 06/04/2019 CAMILLA, RICK Lainez APRN Ot M54 .9 DORSALGIA, UNSPECIFIED 06/04/2019 SAMPSON, RICK Lainez APRN Ot M79.89 OTHER SPECIFIED SOFT TISSUE DISORDERS 06/04/2019 RICK SAMPSON APRN Ot Z79 .4 SHELTER (CURRENT) USE OF INSULIN 06/04/2019 RICK SAMPSON APRN Ot Z79.82 PULP PRESS TENDER (CURRENT) USE OF ASPIRIN 06/04/2019 RICK SAMPSON APRN Ot Z79.899 OTHER PULP PRESS TENDER (CURRENT) DRUG THERAPY 06/04/2019 RICK SAMPSON APRN Ot Z98.84 BARIATRIC SURGERY STATUS 06/11/2019 CAMILLA, RICK Lainez APRN Ot E11.40 TYPE 2 DIABETES MELLITUS WITH DIABETIC N 06/11/2019 CAMILLA, RICK Lainez APRN Ot E78.00 PURE HYPERCHOLESTEROLEMIA, UNSPECIFIED 06/11/2019 CAMILLA, RICK Lainez APRN Ot F32 .9 MAJOR DEPRESSIVE DISORDER, SINGLE EPISOD 06/11/2019 CAMILLA, RICK Lainez APRN Ot F41 .9 ANXIETY DISORDER, UNSPECIFIED 06/11/2019 SAMPSON, RICK Lainez APRN Ot G25.81 RESTLESS LEGS SYNDROME 06/11/2019 RICK SAMPSON REPORTER ANCHOR Ot I10 ESSENTIAL (PRIMARY) HYPERTENSION 06/11/2019 CAMILLA, RICK Lainez REPORTER ANCHOR Ot L03.113 CELLULITIS OF RIGHT UPPER LIMB 06/11/2019 CAMILLA, RICK Lainez APRN Ot M54 .9 DORSALGIA, UNSPECIFIED 06/11/2019 RICK SAMPSON REPORTER ANCHOR Ot M79.89 OTHER SPECIFIED SOFT TISSUE DISORDERS 06/11/2019 RICK SAMPSON APRN Ot Z79 .4 SHELTER (CURRENT) USE OF INSULIN 06/11/2019 RICK SAMPSON APRN Ot Z79.82 PULP PRESS TENDER (CURRENT) USE OF ASPIRIN 06/11/2019 RICK SAMPSON APRN Ot Z79.899 OTHER PULP PRESS TENDER (CURRENT) DRUG THERAPY 06/11/2019 RICK SAMPSON APRN Ot Z98.84 BARIATRIC SURGERY STATUS Procedures Code Description Performed By Per formed On GASTON LICIELO CYST-ASP/INJ 12/25/2011 General S Jake Baez 12/25/2011 03351 A1C (IN-HOUSE) 12/25/2011 32597 URIN E DRUG SCREEN (IN-HOUSE) 12/25/2011 25135 A1C (IN-HOUSE) 04/01/2012 89622 URIN E DRUG SCREEN (IN-HOUSE) 04/01/2012 98093 MRI SPINE (LUMBAR) W/O CONTRAST 04/01/2012 67747 THER APUTIC INJ SQ/IM 05/16/2012 J1885 NEFTALY DOL INJ 05/16/2012 J2930 SOLU MEDROL INJ 05/16/2012 Physical P hysical Therapy, [facility] 05/29/2012 11963 ROUT INE VENIPUNCTURE 09/02/2012 19436 MICR O ALBUMIN-IN HOUSE 09/02/2012 03776 A1C (IN-HOUSE) 09/02/2012 75761 GLUC OSE FINGER STICK 09/02/2012 32907 CMP 09/02/2012 41132 LIPI D PANEL 09/02/2012 67919 MICR OALBUMIN 09/02/2012 70332 CBC 09/02/2012 63253 A1C (IN-HOUSE) 12/31/2012 47183 ROUT INE VENIPUNCTURE 02/19/2013 78848 HEMO GLOBIN (IN-HOUSE) 02/19/2013 ANEMIAANA ANEMIA ANALYZER 02/19/2013 IRGROUP IR ON GROUP (Iron,TIBC, Ferritin) 02/19/2013 62980 IRON SERUM 02/19/2013 61042 IRON BNDNG CAP 02/19/2013 83258 FERRITIN 02/19/2013 [id number] IM MATURE PLATELET FRACTION (RESULT ONLY) 02/20/2013 61444 CBC 02/20/2013 75031 RETI CULOCYTE COUNT 02/20/2013 8075002 HE MATOLOGY OTHER REPORT 02/20/2013 55836 XRAY TIBULA/FIBULA RIGHT 03/18/2013 92017 A1C (IN-HOUSE) 06/18/2013 64032 HEMO GLOBIN (IN-HOUSE) 06/18/2013 01908 MICR O ALBUMIN-IN HOUSE 09/17/2013 78666 A1C (IN-HOUSE) 09/17/2013 41215 A1C (IN-HOUSE) 12/10/2013 02505 ROUT INE VENIPUNCTURE 03/15/2014 14135 A1C (IN-HOUSE) 03/15/2014 80787 LIPI D PANEL 03/15/2014 44004 CBC 03/15/2014 5907523 GF R CALC (RESULT ONLY) 03/15/2014 52795 CMP 03/15/2014 16644 TSH 03/15/2014 82119 A1C (IN-HOUSE) 06/14/2014 25179 US V ENOUS DOPPLER (DVT EVAL) 06/14/2014 OphthalmNicolas Gonzales 06/14/2014 Results Test Result Range Complete urinalysis [...] culture - 10/30/15 18:15 Bacterial urine culture [id number] NRG COLONY COUNT >100,000/ML NRG FTX;REPORTABLE SENSITIVITY [...] culture - 05/16/17 14:08 Bacterial urine culture [id number] NRG COLONY COUNT 10,000/ML - 100,000/ML NRG [...] culture - 10/24/18 10:15 Bacterial urine culture [id number] NRG COLONY COUNT >100,000/ML NRG FTX;REPORTABLE SUSCEPTIBILITY [...] 7-25 CREATININE 1.44 mg/dL 0.50-0.99 eGFR NON-AFR. UGANDAN 39 mL/min/1.73m2 > OR = 60 eGFR [...] AST 21 U/L 10-35 ALT 22 U/L 6 CMP - 11/14/18 08:26 GLUCOSE 339 mg/dL 65-99 UREA NITROGEN (BUN) 35 mg/dL 7-25 CREATININE 1.61 mg/dL 0.50-0.99 eGFR NON-AFR. UGANDAN 33 mL/min/1.73m2 > OR = 60 eGFR [...] 0.0 10*3/uL 0.0-0.1 Comprehensive metabolic panel - 06/03/19 14:30 Serum or plasma sodium measurement (moles/volume) 132 mmol/L 135-145 Serum or plasma potassium measurement (moles/volume) 3.6 mmol/L 3.6-5.0 Serum or plasma chloride measurement (moles/volume) 97 mmol/L 98-107 Carbon dioxide 21 mmol/L 21-32 Serum or plasma anion gap determination (moles/volume) 14 mmol/L 5-14 Serum or plasma urea nitrogen measurement (mass/volume ) 11 mg/dL 7-18 Serum or plasma creatinine measurement (mass/volume) 1.28 mg/dL 0.60-1.30 Serum or plasma urea nitrogen/creatinine mass ratio 9 NRG Serum or plasma creatinine measurement w ith calculation of estimated glomerular filtration rate 42 NRG Serum or plasma glucose measurement (mass/volume) 390 mg/dL 70-105 Serum or plasma calcium measurement (mass/volume) 8.9 mg/dL 8.5-10.1 Serum or plasma total bilirubin measurement (mass/volu me) 0.3 mg/dL 0.1-1.0 Serum or plasma alkaline phosphatase karson surement (enzymatic activity/volume) 88 U/L 40-136 Serum or plasma aspartate aminotransfera se measurement (enzymatic activity/volume) 34 U/L 5-34 Serum or plasma alanine aminotransferase measurement (enzymatic activity/volume) 36 U/L 0-55 Serum or plasma protein measurement (mass/volume) 7.3 g/dL 6.4-8.2 Serum or plasma albumin measurement (mass/volume) 3.9 g/dL 3.2-4.5 CALCIUM CORRECTED 9.0 mg/dL 8.5-10.1 Serum or plasma lithium measurement (mol es/volume) - 06/03/19 14:30 BNP PT 94.4 pg/mL <100.0 THYROID STIMULATING HORMONE - 06/03/19 1 4:30 THYROID STIMULATING HORMONE 1.06 u[iU]/mL 0.35-4.94 Serum or plasma thyroxine (T4) free anderson urement (mass/volume) - 06/03/19 14:30 Serum or plasma thyroxine (T4) free measurement (mass/ volume) 0.78 ng/dL 0.70-1.48 Encounters ACCT No. Visit Date/Time Discharge Status Pt. Type Provider Facility Loc./Unit Complaint [id number] 06/14/2014 09:33:00 06/14/2014 23:59: 59 CLS Outpatient JOSE LUIS SOLO DO [id number] 05/28/2014 11:33:00 05/28/2014 23:59: 59 CLS Outpatient GEORGIA GALVAN APRN [id number] 03/15/2014 08:06:00 03/15/2014 23:59: 59 ROSA Outpatient JOSE LUIS SOLO DO [id number] 02/10/2014 15:44:00 02/10/2014 23:59: 59 CLS Outpatient JOSE LUIS SOLO DO [id number] 12/10/2013 09:37:00 12/10/2013 23:59: 59 CLS Outpatient GEORGIA GALVAN APRN [id number] 09/17/2013 09:00:00 09/17/2013 23:59: 59 CLS Outpatient JOSE LUIS SOLO DO [id number] 07/24/2013 10:33:00 07/24/2013 23:59: 59 CLS Outpatient JOSE LUIS SOLO DO [id number] 06/18/2013 08:16:00 06/18/2013 23:59: 59 CLS Outpatient GEORGIA GALVAN APRN [id number] 03/16/2013 12:10:00 03/16/2013 23:59: 59 CLS Outpatient GEORGIA GALVAN APRN [id number] 03/16/2013 08:44:00 03/16/2013 23:59: 59 CLS Outpatient JOSE LUIS SOLO DO [id number] 02/19/2013 10:15:00 02/19/2013 23:59: 59 CLS Outpatient GEORGIA GALVAN APRN [id number] 02/04/2013 14:09:00 02/04/2013 23:59: 59 CLS Outpatient JOSE LUIS SOLO DO [id number] 12/31/2012 08:36:00 12/31/2012 23:59: 59 CLS Outpatient JOSE LUIS SOLO DO [id number] 05/29/2012 15:48:00 05/29/2012 23:59: 59 CLS Outpatient [id number] 05/16/2012 15:27:00 05/16/2012 23:59: 59 CLS Outpatient MANNY VALDIVIA APRN [id number] 04/01/2012 14:23:00 04/01/2012 23:59: 59 [place] [id number] 12/25/2011 14:23:00 12/25/2011 23:59:5 9 CLS Outpatient MARITZA NICOLE MD [id number] 12/25/2011 14:23:00 12/25/2011 23:59: 59 CLS Outpatient MARITZA NICOLE MD [id number] 09/30/2012 15:14:00 Document Registration [id number] 09/05/2012 09:36:00 Document Registration [id number] 09/02/2012 09:00:00 Document Registration [id number] 08/02/2012 00:00:00 Document Registration [id number] 06/24/2012 14:54:00 Document Registration [id number] 06/03/2019 14:08:00 15:51:00 DIS Emergency RICK SAMPSON APRN [facility] ER HAND/FEET SWELLING [id number] 04/22/2019 13:11:00 11:03:00 DIS Outpatient CATRACHITA MOLINA [facility] REHAB DECREASE STRENG TH L LE; FALLS [id number] 01/09/2019 07:29:00 08:00:00 DIS Emergency NANCY OLSON DO [facility] ER ITCHING/BURNING OF EYES [id number] 12/08/2018 16:06:00 19:26:00 DIS Emergency RICK SAMPSON APRN [facility] ER BLOOD SUGAR HIGH,FALL [id number] 10/28/2018 14:33:00 16:54:00 DIS Emergency DAISY NOVA MD [facility] ER HIGH BLOOD SUGAR; HIGH BP [id number] 10/24/2018 11:47:00 019 13:41:00 DIS Inpatient LENORE REYES, SREEKANTH Pisano [facility] 4TH ARF;UTI [id number] 10/11/2017 07:30:00 018 23:59:59 CLS Outpatient PAOLA ESCAMILLA MD [facility] SDC CATARACT LEFT EYE [id number] 09/20/2017 06:24:00 018 08:20:00 DIS Outpatient PAOLA ESCAMILLA MD [facility] SD CATARACT RIGHT EYE [id number] 09/18/2017 05:59:00 018 23:59:59 CLS Outpatient PAOLA ESCAMILLA MD [facility] PREOP CATARACT RIGHT EYE [id number] 06/03/2017 09:07:00 018 10:25:00 DIS Emergency ANURADHA BUTLER DO [facility] ER BS ISSUES [id number] 05/16/2017 12:33:00 018 15:05:00 DIS Emergency RICK SAMPSON APRN [facility] ER POSS STROKE [id number] 10/30/2015 18:28:00 016 19:42:00 DIS Emergency ANURADHA BUTLER DO [facility] ER PAIN URINATING [id number] 08/18/2014 15:57:00 015 23:59:59 CLS Preadmit JOSE BILLINGS MD [facility] REHAB [id number] 06/16/2014 13:27:00 015 23:59:59 CLS Outpatient GEORGIA GALVAN APRN [facility] RAD MADELIN BRAR [id number] 07/11/2013 12:09:00 014 14:49:00 DIS Emergency LUKE ANURADHA PINEDA [facility] ER DIZZINESS L LEG PAIN [id number] 05/08/2013 10:45:00 014 11:54:00 DIS Outpatient AWA REYES, JOSE Rasmussen [facility] REHAB S/P LUMBAR FUSI ON [id number] 07/02/2012 12:15:00 013 12:22:00 DIS Outpatient COREY REYES, MARITZA Rasmussen [facility] REHAB L LEG RADICULOPATHY;JUSTINE MBAR RADICULOPATHY [id number] 10/08/2017 05:39:00 Document Registration [id number] 06/16/2014 13:32:00 Document Registration [id number] 05/14/2014 12:44:00 Document Registration [id number] 04/03/2012 13:04:00 Document Registration [id number] 09/04/2011 15:01:00 Document Registration [id number] 12/26/2010 13:39:00 Document Registration [id number] 01/31/2010 14:34:00 Document Registration [id number] 12/06/2009 14:41:00 Document Registration [id number] 11/30/2009 07:25:00 Document Registration [id number] 11/18/2009 10:09:00 Document Registration [id number] 18:35:00 Document Registration [id number] 09/08/2009 07:33:00 Document Registration [id number] 09/07/2009 07:33:00 Document Registration [id number] 08/31/2009 08:48:00 Document Registration [id number] 06/15/2019 12:00:00 06/15/2019 23:59:5 9 CLS Outpatient CATRACHITA [facility]OLINA [facility] [address] [id number] 04/29/2019 10:20:00 Document Registration [id number] 12/29/2018 12:00:00 Document Registration [id number] 12/15/2018 11:40:00 Document Registration [id number] 11/14/2018 08:20:00 Document Registration [id number] 10/31/2018 08:00:00 Document Registration [id number] 10/16/2017 08:40:00 Document Registration [id number] 06/06/2017 08:20:00 Document Registration [id number] 12/31/2016 08:00:00 Document Registration
[2019-07-26 17:50] LABS: ALBUMIN 3.9 GM/DL (3.2-4.5); BILIRUBIN,URINE NEGATIVE (NEGATIVE); CLARITY,URINE CLOUDY; COLOR,URINE YELLOW; GLUCOSE, URINE (UA) NEGATIVE (NEGATIVE); KETONES,URINE NEGATIVE (NEGATIVE); LEUKOCYTE ESTERASE ,URINE 3+ (NEGATIVE); NITRITE,URINE POSITIVE (NEGATIVE); POTASSIUM 3.7 MMOL/L (3.6-5.0); PROTEIN,URINE 1+ (NEGATIVE)
[2019-07-26 17:51] LABS: CALCIUM 9.4 MG/DL (8.5-10.1)
[2019-07-26 17:53] LABS: TOTAL PROTEIN 7.2 GM/DL (6.4-8.2)
[2019-07-26 17:54] LABS: BILIRUBIN,TOTAL 0.4 MG/DL (0.1-1.0)
[2019-07-26 17:56] LABS: CREATININE SERUM 1.71 MG/DL (0.60-1.30)
[2019-07-26] MEDS ORDERED: CEFU250T80 PO (18:06)
[2019-07-26 18:15] LABS: BACTERIA,URINE LARGE /HPF; RBC,URINE >100 /HPF; WBC,URINE TNTC /HPF
[2019-07-26] MEDS ORDERED: cefTRIAXone FOR IV USE 1,000 MG in WATER (STERILE) FOR INJECTION 10 ML IV ONE (18:30)
[2019-07-26 18:35] VITALS: BP 156/81
--- NOTE | 2019-07-26 18:37 | NUR ---
TALKED WITH PT ABOUT A LEG BAG ET PT STATES SHE WISHES JUST TO HAVE THE LARGE DWYER BAG.
== END 2019-07-26 18:35 | disposition home or self-care (01) ==
LOC: EDUNIT# 17:18 → ER 17:19
DX: N17.9 Acute kidney failure, unspecified (principal); I10 Essential (primary) hypertension; E78.00 Pure hypercholesterolemia, unspecified; E11.40 Type 2 diabetes mellitus with diabetic neuropathy, unspecified; Z79.82 Long term (current) use of aspirin; Z79.4 Long term (current) use of insulin
CPT/HCPCS: 36415; 51702; 80053; 81000; 85025; 87077; 87088; 87186

== ENCOUNTER 2019-07-27 14:55 | Emergency (ER) | payer MEDICARE ==
[~2019-07-27] VITALS: Ht 162 cm; Wt 78.0 kg
--- NOTE | 2019-07-27 15:05 | ED GU-Female ---
General Stated Complaint: WANTS CATHETER REMOVAL Source: patient Exam Limitations: no limitations History of Present Illness Date Seen by Provider: July 27, 2019 Time Seen by Provider: 15:02 Initial Comments Patient was seen here yesterday for urinary retention, no alleged urinary output for 48 hours. Despite this only had 400 mL bladder. She was given a liter of IV fluids, Rocephin, prescription for antibiotic for bladder infection. Zambrano catheter was placed and she was told to follow-up later this week for removal. She presents today as she would like it removed. Timing/Duration: constant Severity/Quality: mild Radiation: none Activities at Onset: none Prior Genitourinary Problems: none Associated Symptoms: denies symptoms Allergies and Home Medications Allergies Coded Allergies: No Known Drug Allergies (Unverified , 11/05/09) Home Medications Amoxicillin/Potassium Clav 1 Each Tablet, 1 EACH PO BID Prescribed by: RICK SAMPSON on 06/03/19 1536 Aspirin 81 Mg Tablet.dr, 81 MG PO DAILY, (Reported) Cefuroxime Axetil 500 Mg Tablet, 500 MG PO BID Prescribed by: SREEKANTH GROVER on 10/26/18 1309 Cefuroxime Axetil 250 Mg Tablet, 250 MG PO BID Prescribed by: RICK SAMPSON on 12/08/181913 Cefuroxime Axetil 250 Mg Tablet, 250 MG PO BID Prescribed by: RICK SAMPSON on 07/26/19 1806 Fluconazole 200 Mg Tablet, 200 MG PO DAILY Prescribed by: RICK SAMPSON on 12/08/181913 Gabapentin 300 Mg Capsule, 900 MG PO HS, (Reported) TAKES 3 (300MG) CAPSULES Hydrocodone Bit/Acetaminophen 1 Each Tablet, 1 TAB PO Q6H PRN for PAIN-MODERATE, (Reported) Insulin Aspart 300 Units/3 Ml Solution, 0 SQ UD Prescribed by: RICK SAMPSON on 12/08/181913 Insulin Determir 1,000 Units/10 Ml Soln, 90 UNITS SC HS, (Reported) Liraglutide 0.6 Mg/0.1 Ml Pen.injctr, 1.8 MG SC DAILY, (Reported) Lovastatin 20 Mg Tablet, 20 MG PO HS, (Reported) Patient Home Medication List Home Medication List Reviewed: Yes Review of Systems Review of Systems Constitutional: see HPI; No chills EENTM: see HPI Respiratory: no symptoms reported Cardiovascular: no symptoms reported Genitourinary: no symptoms reported Musculoskeletal: no symptoms reported Skin: no symptoms reported Psychiatric/Neurological: No Symptoms Reported Endocrine: No Symptoms Reported Hematologic/Lymphatic: No Symptoms Reported Past Ksrgjzy-Zpgzde-Wmjxpj Hx Patient Social History Type Used: Cigarettes 2nd Hand Smoke Exposure: No Recent Hopitalizations: No Past Medical History Surgeries: Yes (GASTRIC BYPASS, BACK SX X 2) Abdominal, Orthopedic Respiratory: No Cardiac: Yes High Cholesterol, Hypertension Neurological: Yes Neuropathy Reproductive Disorders: No [employer] History: Menopausal Genitourinary: Yes Bladder Infection, Renal Failure Gastrointestinal: No Musculoskeletal: Yes (RESTLESS LEG SYNDROME) Chronic Back Pain Endocrine: Yes Diabetes, Insulin dep HEENT: Yes (GLASSES) Cancer: No Psychosocial: Yes Sleep Difficulties, Anxiety, Depression Integumentary: No Blood Disorders: Yes (ANEMIA) Physical Exam Vital Signs Vital Signs - First Documented 07/27/19 15:09 Temp 37.0 Pulse 96 Resp 16 B/P (MAP) 129/77 (94) Pulse Ox 96 O2 Delivery Room Air Capillary Refill : Height, Weight, BMI Height: 5'5.00" Weight: 187lbs. 0.6oz. 84.754374as; 29.00 BMI Method:Stated General Appearance: WD/WN, no apparent distress HEENT: PERRL/EOMI, normal ENT inspection Respiratory: no respiratory distress, no accessory muscle use Gastrointestinal: normal bowel sounds, non tender Extremities: normal range of motion, non-tender Neurologic/Psychiatric: alert, normal mood/affect, oriented x 3 Skin: normal color, warm/dry Progress/Results/Core Measures Suspected Sepsis SIRS Temperature: Pulse: Respiratory Rate: Blood Pressure / Mean: Results/Orders Vital Signs/I&O 07/27/19 15:09 Temp 37.0 Pulse 96 Resp 16 B/P (MAP) 129/77 (94) Pulse Ox 96 O2 Delivery Room Air Capillary Refill : Departure Impression Primary Impression: Encounter for Zambrano catheter removal Additional Impression: Urinary tract infection Disposition: HOME, SELF-CARE Condition: Stable Departure-Patient Inst. Decision time for Depature: 15:04 Referrals: [facility] (PCP) Primary Care Physician CATRACHITA MOLINA (Family) Primary Care Physician Patient Instructions: NO INSTRUCTIONS GIVEN Add. Discharge Instructions: 1. Continue antibiotics. continue with the to the increased fluid intake. RICK SAMPSON APRN July 27, 2019 15:05
[2019-07-27 15:09] VITALS: BP 129/77
== END 2019-07-27 15:16 | disposition home or self-care (01) ==
LOC: EDUNIT# 14:55 → ER 14:57
DX: Z46.6 Encounter for fitting and adjustment of urinary device (principal); N39.0 Urinary tract infection, site not specified; E78.00 Pure hypercholesterolemia, unspecified; E11.40 Type 2 diabetes mellitus with diabetic neuropathy, unspecified; M54.9 Dorsalgia, unspecified; G89.29 Other chronic pain; Z79.82 Long term (current) use of aspirin; Z79.51 Long term (current) use of inhaled steroids; Z79.4 Long term (current) use of insulin; Z98.84 Bariatric surgery status
CPT/HCPCS: 99281

== ENCOUNTER 2020-01-23 14:18 | Observation (INO) | payer MEDICARE ==
[~2020-01-23] VITALS: Ht 165.1 cm; Wt 89.0 kg
[~2020-01-23 14:18] MED LIST changes: +ASPI-1238 PO; -ASPI-983 PO
[2020-01-23 14:38] LABS: BILIRUBIN,URINE NEGATIVE (NEGATIVE); CLARITY,URINE SL CLOUDY; COLOR,URINE YELLOW; GLUCOSE, URINE (UA) 3+ (NEGATIVE); KETONES,URINE NEGATIVE (NEGATIVE); LEUKOCYTE ESTERASE ,URINE TRACE (NEGATIVE); NITRITE,URINE NEGATIVE (NEGATIVE); PROTEIN,URINE TRACE (NEGATIVE)
[2020-01-23 14:44] LABS: EOSINOPHILS # (AUTO) 0.4 10^3/uL (0.0-0.3); EOSINOPHILS % (AUTO) 3 % (0-10); MEAN CORPUSCULAR HGB CONC 32 g/dL (32-36); NEUTROPHILS % (AUTO) 78 % (42-75)
[2020-01-23 14:44] LABS: BACTERIA,URINE LARGE /HPF; WBC,URINE 50-100 /HPF
[2020-01-23 14:45] LABS: BASOPHILS # (AUTO) 0.1 10^3/uL (0.0-0.1); BASOPHILS % (AUTO) 1 % (0-10); HEMATOCRIT 41 % (35-52); HEMOGLOBIN 13.1 g/dL (11.5-16.0); LYMPHOCYTES # (AUTO) 1.3 10^3/uL (1.0-4.0); LYMPHOCYTES % (AUTO) 11 % (12-44); MEAN CORPUSCULAR HEMOGLOBIN 27 pg (25-34); MEAN CORPUSCULAR VOLUME 87 fL (80-99); MEAN PLATELET VOLUME 11.4 fL (9.0-12.2); MONOCYTES # (AUTO) 0.8 10^3/uL (0.0-1.0); MONOCYTES % (AUTO) 6 % (0-12); NEUTROPHILS # (AUTO) 9.3 10^3/uL (1.8-7.8); PLATELET COUNT 210 10^3/uL (130-400); WHITE BLOOD COUNT 11.9 10^3/uL (4.3-11.0)
[2020-01-23] MEDS ORDERED: PHENAZOPYRIDINE 100 MG (PYRIDIUM) TABLET PO ONE (15:00)
[2020-01-23 15:34] LABS: ALBUMIN 4.3 GM/DL (3.2-4.5); POTASSIUM 5.8 MMOL/L (3.6-5.0)
[2020-01-23 15:35] LABS: CALCIUM 9.5 MG/DL (8.5-10.1)
[2020-01-23 15:37] LABS: TOTAL PROTEIN 7.9 GM/DL (6.4-8.2)
[2020-01-23 15:38] LABS: BILIRUBIN,TOTAL 0.6 MG/DL (0.1-1.0)
[2020-01-23 15:40] LABS: CREATININE SERUM 1.72 MG/DL (0.60-1.30)
[2020-01-23] MEDS ORDERED: ENOXAPARIN 40 MG/0.4 ML (LOVENOX) SYR SC SCH (16:00)
[2020-01-23] MEDS ORDERED: inSUlin (REGULAR) HUMAN 1 UNIT/0.01 ML (CHARGE PER UNIT) SC ONE (16:00)
[2020-01-23] MEDS ORDERED: MELATONIN 3 MG TABLET PO PRN (16:00)
[2020-01-23] MEDS ORDERED: diphenhydrAMINE 25 MG TAB (BENADRYL) PO PRN (16:00)
[2020-01-23] MEDS ORDERED: ALPRAZolam 0.25 MG (XANAX) TAB PO PRN (16:00)
[2020-01-23] MEDS ORDERED: ACETAMINOPHEN 500 MG TAB (TYLENOL) PO PRN (16:00)
[2020-01-23] MEDS ORDERED: DOCUSATE SODIUM 100 MG (COLACE) CAP PO PRN (16:00)
[2020-01-23] MEDS ORDERED: fentaNYL INJECTION 100 MCG/2 ML AMP IVP PRN (16:00)
[2020-01-23] MEDS ORDERED: LOPERAMIDE 2 MG (IMODIUM) TABLET PO PRN (16:00)
[2020-01-23] MEDS ORDERED: guaiFENesin/CODEINE (ROBITUSSIN AC) 10ML UDC PO PRN (16:00)
[2020-01-23] MEDS ORDERED: CALCIUM CARBONATE 500 MG (TUMS) TAB.CHEW PO PRN (16:00)
[2020-01-23] MEDS ORDERED: cefTRIAXone FOR IV USE 1,000 MG in WATER (STERILE) FOR INJECTION 10 ML IV ONE (16:00)
[2020-01-23] MEDS ORDERED: ONDANSETRON 4 MG/2 ML (SDV) Z0FRAN IVP PRN (16:00)
[2020-01-23] MEDS ORDERED: cefTRIAXone 1,000 MG IV (ROCEPHIN) VIAL ONE (16:01)
[2020-01-23] MEDS ORDERED: WATER (STERILE) FOR INJECTION 10 ML ONE (16:05)
[2020-01-23] MEDS: NS IV 1000 ML 1,000 ML IV SCH (16:15)
--- NOTE | 2020-01-23 16:30 | NUR ---
report received from mariana castro rn
--- NOTE | 2020-01-23 17:00 | NUR ---
PT ARRIVED TO FLOOR FROM ED VIA WC
[2020-01-23 17:02] VITALS: BP 137/82
[2020-01-23] MEDS: inSUlin ASPART (NovoLOG) 1 UNIT/0.01 ML (CHARGE PER UNIT) SC SCH ×2 (18:08→21:00)
[2020-01-23] MEDS: HYDROcodone/APAP 5 MG/325 MG (LORTAB) TAB PO PRN (18:08)
[2020-01-23 19:55] VITALS: BP 110/63
[2020-01-23] MEDS: SENNA W/DOCUSATE (SENOKOT S) TABLET PO SCH (20:51)
[2020-01-24 00:18] VITALS: BP 128/78
[2020-01-24] MEDS: NS IV 1000 ML 1,000 ML IV SCH ×2 (02:53→12:36)
[2020-01-24 04:33] VITALS: BP 147/78
[2020-01-24 05:35] LABS: BASOPHILS # (AUTO) 0.1 10^3/uL (0.0-0.1); BASOPHILS % (AUTO) 1 % (0-10); EOSINOPHILS # (AUTO) 0.4 10^3/uL (0.0-0.3); EOSINOPHILS % (AUTO) 4 % (0-10); HEMATOCRIT 39 % (35-52); HEMOGLOBIN 12.3 g/dL (11.5-16.0); LYMPHOCYTES # (AUTO) 1.6 10^3/uL (1.0-4.0); LYMPHOCYTES % (AUTO) 20 % (12-44); MEAN CORPUSCULAR HEMOGLOBIN 27 pg (25-34); MEAN CORPUSCULAR HGB CONC 32 g/dL (32-36); MEAN CORPUSCULAR VOLUME 85 fL (80-99); MEAN PLATELET VOLUME 10.2 fL (9.0-12.2); MONOCYTES # (AUTO) 0.6 10^3/uL (0.0-1.0); MONOCYTES % (AUTO) 7 % (0-12); NEUTROPHILS # (AUTO) 5.7 10^3/uL (1.8-7.8); NEUTROPHILS % (AUTO) 69 % (42-75); PLATELET COUNT 195 10^3/uL (130-400); WHITE BLOOD COUNT 8.3 10^3/uL (4.3-11.0)
[2020-01-24 05:47] LABS: ALBUMIN 3.7 GM/DL (3.2-4.5); POTASSIUM 4.2 MMOL/L (3.6-5.0)
[2020-01-24 05:49] LABS: CALCIUM 8.7 MG/DL (8.5-10.1)
[2020-01-24 05:50] LABS: TOTAL PROTEIN 6.8 GM/DL (6.4-8.2)
[2020-01-24 05:52] LABS: BILIRUBIN,TOTAL 0.4 MG/DL (0.1-1.0)
[2020-01-24 05:53] LABS: CREATININE SERUM 1.28 MG/DL (0.60-1.30)
[2020-01-24] MEDS: inSUlin ASPART (NovoLOG) 1 UNIT/0.01 ML (CHARGE PER UNIT) SC SCH ×2 (05:59→11:52)
[2020-01-24 08:00] VITALS: BP 145/73
[2020-01-24] MEDS: HYDROcodone/APAP 5 MG/325 MG (LORTAB) TAB PO PRN (08:45)
[2020-01-24] MEDS: SENNA W/DOCUSATE (SENOKOT S) TABLET PO SCH (08:45)
[2020-01-24] MEDS ORDERED: cefTRIAXone 1,000 MG IV (ROCEPHIN) VIAL ONE (11:34)
--- NOTE | 2020-01-24 11:38 | NUR ---
DR VÁZQUEZ GAVE VERBAL ORDER TO INFUSE IV ROCEPHIN NOW
[2020-01-24 12:00] VITALS: BP 152/90
[2020-01-24] MEDS ORDERED: INSULIN ASPART SQ SCH (12:45)
[2020-01-24] MEDS ORDERED: HYDROcodone/APAP 7.5 MG/325 MG (LORTAB, LORCET PLUS) TABLET PO PRN (12:45)
[2020-01-24] MEDS ORDERED: AMOX-358 PO (12:52)
[2020-01-24 13:25] VITALS: BP 152/90
--- NOTE | 2020-01-24 13:25 | NUR ---
GOPAL ISAACS demonstrates understanding of discharge instructions and accurately returns instructions upon questioning. Copy of Post-Discharge Instructions and Medication Discharge Instructions given to PT. GOPAL ISAACS is able to manage continuing needs after discharge. Patients belongings returned to PT. Skin dry and intact; no breakdown noted. Patient discharged from 404-1 on at 1325. GOPAL ISAACS left floor via WC, accompanied by STAFF.
[2020-01-24] MEDS ORDERED: cefTRIAXone FOR IV USE 1,000 MG in WATER (STERILE) FOR INJECTION 10 ML IV SCH (16:00)
[2020-01-24] MEDS ORDERED: GABAPENTIN 300 MG (NEURONTIN) CAP PO SCH (21:00)
[2020-01-24] MEDS ORDERED: SIMvastatin 10 MG (ZOCOR) TAB PO SCH (21:00)
[2020-01-25] MEDS ORDERED: NON-FORMULARY MEDICATION 1 EA EA (Liraglutide (Victoza 3-Pak) 1.8 MG) SC SCH (09:00)
[2020-01-25] MEDS ORDERED: ASPIRIN E.C. 81 MG (ECOTRIN) TAB PO SCH (09:00)
== END 2020-01-24 13:25 | disposition home or self-care (01) ==
LOC: EDUNIT# 14:18 → ER 14:20 → UNDOADMOB 15:50 → 4TH 15:50
PROVIDERS: ADMIT Internal Medicine; ATTEND Internal Medicine
DX: N30.01 Acute cystitis with hematuria (principal); N17.9 Acute kidney failure, unspecified; N13.9 Obstructive and reflux uropathy, unspecified; I10 Essential (primary) hypertension; E78.00 Pure hypercholesterolemia, unspecified; E11.40 Type 2 diabetes mellitus with diabetic neuropathy, unspecified; G89.29 Other chronic pain; F41.9 Anxiety disorder, unspecified; F32.9 Major depressive disorder, single episode, unspecified; D64.9 Anemia, unspecified; E78.5 Hyperlipidemia, unspecified; J44.9 Chronic obstructive pulmonary disease, unspecified; M54.5 Low back pain; Z79.82 Long term (current) use of aspirin; Z79.4 Long term (current) use of insulin; Z79.899 Other long term (current) drug therapy; Z87.891 Personal history of nicotine dependence; Z90.710 Acquired absence of both cervix and uterus
CPT/HCPCS: 51702; 80053 ×2; 81000; 82962 ×2; 85025 ×2; 86141; 87077; 87088; 87186; 99284; G0378; 36415

== ENCOUNTER 2020-08-05 10:05 | Observation (INO) | payer MEDICARE ==
[2020-08-05] VITALS (8 sets, daily range): BP systolic 101–162; BP diastolic 81–99
[~2020-08-05] VITALS: Ht 160 cm; Wt 88.8 kg
--- NOTE | 2020-08-05 10:56 | ED General ---
General Chief Complaint: Dizziness/Syncope Stated Complaint: [facility] Nursing Triage Note: ARRIVED VIA WC TO ROOM 03 WITH COMPLAINTS OF SUDDEN ONSET OF DIZZINESS STARTING APPX 2HR [employer] Nursing Sepsis Screen: No Definite Risk Source of Information: Patient Exam Limitations: No Limitations History of Present Illness Date Seen by Provider: Aug 05, 2020 Time Seen by Provider: 10:45 Initial Comments Emelyn is a 64-year-old female who presents to the emergency department today with a chief complaint of a sudden onset of dizziness around 8:00 this morning. Patient states that she woke up at 7 and was fine and then at 8:00 started feeling like her left side was weak, she feels dizzy, she thinks her speech is slurred and her vision is a little bit blurry. Patient states that she has had a couple of these episodes over the course of the last several months. She denies any headache. She does take a baby aspirin daily. She denies any recent illnesses such as fevers, chills, cough. She has had some nasal congestion over the past week. She denies any nausea, vomiting, urinary complaints or diarrhea. Her is at the bedside and states that she has had these episodes fairly frequently over the recent months. She states sometimes the symptoms are quick to recover and sometimes they will last up to a day and 1/2 to 2 days. Patient cannot recall having had a CAT scan or her carotid arteries evaluated with respect to the symptoms. All other review of systems reviewed and negative except as stated above. Timing/Duration: 1-3 Hours (Onset 8 AM, 3 hours prior to my evaluation) Severity: Moderate Associated Systoms: Denies Symptoms Allergies and Home Medications Allergies Coded Allergies: No Known Drug Allergies (Unverified , 01/23/20) Home Medications Aspirin 81 Mg Tablet.dr, 81 MG PO DAILY, (Reported) Last Action: Reviewed Celecoxib 200 Mg Capsule, 200 MG PO HS, (Reported) Last Action: New Order Gabapentin 300 Mg Capsule, 900 MG PO HS, (Reported) TAKES 3 (300MG) CAPSULES Last Action: Reviewed Hydrocodone/Acetaminophen 1 Each Tablet, 1 EACH PO BID, (Reported) Last Action: New Order Insulin Aspart 300 Units/3 Ml Solution, 0 SQ UD Prescribed by: RICK SAMPSON on 12/08/181913 Last Action: Reviewed Insulin Determir 1,000 Units/10 Ml Soln, 10 UNITS SQ DAILY, (Reported) Last Action: New Order Liraglutide 0.6 Mg/0.1 Ml Pen.injctr, 1.8 MG SC DAILY, (Reported) Last Action: Reviewed Lovastatin 20 Mg Tablet, 20 MG PO HS, (Reported) Last Action: Reviewed Patient Home Medication List Home Medication List Reviewed: Yes Review of Systems Review of Systems Constitutional: see HPI EENTM: nose congestion Respiratory: no symptoms reported Cardiovascular: no symptoms reported Gastrointestinal: no symptoms reported Genitourinary: no symptoms reported Musculoskeletal: no symptoms reported Skin: no symptoms reported Psychiatric/Neurological: Numbness (Left side has decreased sensation over the right side of her body including her face), Weakness (Left upper and lower extremity) Hematologic/Lymphatic: No Symptoms Reported All Other Systems Reviewed Negative Unless Noted: Yes Past Tlgvlin-Shbqeu-Chflwy Hx Patient Social History Alcohol Use: Denies Use Smoking Status: Former Smoker Type Used: Cigarettes 2nd Hand Smoke Exposure: No Recent Infectious Disease Expo: No Recent Hopitalizations: No Immunizations Up To Date Date of Influenza Vaccine: Dec 22, 2019 Past Medical History Surgeries: Yes (GASTRIC BYPASS, BACK SX X 2) Abdominal, Appendectomy, Gallbladder, Hysterectomy, Orthopedic Respiratory: No Cardiac: Yes High Cholesterol, Hypertension Neurological: Yes Neuropathy 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 0.6oz. [id number]; 67.00 BMI Method:Stated General Appearance: No Apparent Distress, WD/WN Eyes: Bilateral Eye Normal Inspection, Bilateral Eye PERRL HEENT: Other (Edentulous tongue is midline) Neck: Normal Inspection Respiratory: Lungs Clear, Normal Breath Sounds, No Accessory Muscle Use, No Respiratory Distress Cardiovascular: Regular Rate, Rhythm, Normal Peripheral Pulses Gastrointestinal: Non Tender, Soft Extremity: Normal Capillary Refill, Normal Inspection, Normal Range of Motion, Non Tender, No Calf Tenderness Neurologic/Psychiatric: Alert, Oriented x3, Motor Weakness (Left upper and left lower extremity 4/5), Sensory Deficit (Left side including her face is a little bit more "numb" than her right side), Other (Ataxia with the left upper extremity on [id number], patient has bilateral nystagmus) Skin: Normal Color, Warm/Dry Progress/Results/Core Measures Suspected Sepsis Recent Fever Within 48 Hours: No Infection Criteria Present: None New/Unexplained Altered Menta: No Sepsis Screen: No Definite Risk SIRS Temperature: Pulse: 102 Respiratory Rate: 16 Laboratory Tests 08/05/20 10:27: White Blood Count 14.7H Blood Pressure 88 /68 Mean: 75 Laboratory Tests 08/05/20 10:27: Creatinine 1.61H, Platelet Count 315, Total Bilirubin 0.5 08/05/20 11:54: INR Comment 1.0 Results/Orders Lab Results Laboratory Tests Test 08/05/20 10:27 08/05/20 10:42 08/05/20 11:54 Range/Units White Blood Count 14.7 H 4.3-11.0 10^3/uL Red Blood Count 5.00 3.80-5.11 10^6/uL Hemoglobin 13.9 11.5-16.0 g/dL Hematocrit 42 35-52 % Mean Corpuscular Volume 85 80-99 fL Mean Corpuscular Hemoglobin 28 25-34 pg Mean Corpuscular Hemoglobin Concent 33 32-36 g/dL Red Cell Distribution Width 13.5 10.0-14.5 % Platelet Count 315 130-400 10^3/uL Mean Platelet Volume 10.4 9.0-12.2 fL Immature Granulocyte % (Auto) 0 % Neutrophils (%) (Auto) 73 42-75 % Lymphocytes (%) (Auto) 17 12-44 % Monocytes (%) (Auto) 6 0-12 % Eosinophils (%) (Auto) 3 0-10 % Basophils (%) (Auto) 1 0-10 % Neutrophils # (Auto) 10.8 H 1.8-7.8 10^3/uL Lymphocytes # (Auto) 2.5 1.0-4.0 10^3/uL Monocytes # (Auto) 0.8 0.0-1.0 10^3/uL Eosinophils # (Auto) 0.4 H 0.0-0.3 10^3/uL Basophils # (Auto) 0.1 0.0-0.1 10^3/uL Immature Granulocyte # (Auto) 0.1 0.0-0.1 10^3/uL Neutrophils % (Manual) 71 % Lymphocytes % (Manual) 11 % Monocytes % (Manual) 8 % Eosinophils % (Manual) 2 % Reactive Lymphocytes 8 % Blood Morphology Comment NORMAL Sodium Level 138 135-145 MMOL/L Potassium Level 4.4 3.6-5.0 MMOL/L Chloride Level 99 98-107 MMOL/L Carbon Dioxide Level 26 21-32 MMOL/L Anion Gap 13 5-14 MMOL/L Blood Urea Nitrogen 25 H 7-18 MG/DL Creatinine 1.61 H 0.60-1.30 MG/DL Estimat Glomerular Filtration Rate 32 BUN/Creatinine Ratio 16 Glucose Level 80 70-105 MG/DL Calcium Level 9.8 8.5-10.1 MG/DL Corrected Calcium 9.6 8.5-10.1 MG/DL Total Bilirubin 0.5 0.1-1.0 MG/DL Aspartate Amino Transf (AST/SGOT) 17 5-34 U/L Alanine Aminotransferase (ALT/SGPT) 13 0-55 U/L Alkaline Phosphatase 112 40-136 U/L Total Protein 7.8 6.4-8.2 GM/DL Albumin 4.2 3.2-4.5 GM/DL Glucometer 121 H 70-110 MG/DL Prothrombin Time 13.1 12.2-14.7 SEC INR Comment 1.0 0.8-1.4 Activated Partial Thromboplast Time 23 L 24-35 SEC My Orders Orders - NOLA COHN MD Ed Iv/Invasive Line Start (08/05/20 10:59) Cbc With Automated Diff (08/05/20 10:59) Comprehensive Metabolic Panel (08/05/20 10:59) Protime With Inr (08/05/20 10:59) Partial Thromboplastin Time (08/05/20 10:59) Ekg Tracing (08/05/20 10:59) Chest 1 View, Ap/Pa Only (08/05/20 10:59) Ct Head Wo (08/05/20 10:59) Manual Differential (08/05/20 10:27) Vital Signs/I&O 08/05/20 10:20 Temp 36.9 Pulse 102 Resp 16 B/P (MAP) 88/68 (75) Pulse Ox 92 O2 Delivery Room Air Capillary Refill : Less Than 3 Seconds Blood Pressure Mean: 75 Progress Note : Time: 12:38 Progress Note Patient evaluation today includes a CT scan of the head without contrast, chest x-ray EKG coag profile, CBC and chemistry. Patient's findings were very concerning for acute ischemic stroke. She had no evidence of hemorrhage on CT noncontrast. I did discuss the case with stroke neurology and they recommended TPA for this patient however on my reevaluation prior to consenting her for TPA the patient symptoms are improving and almost completely resolved. Patient states that the symptoms have become more frequent in nature and they can sometimes last up to a day and she is worried that she is going to have a full-blown stroke. At this time with her symptoms resolving, dizziness, numbness, weakness and ataxia I do not believe she is a candidate for TPA. Will talk to Dr. Roberto on for [facility] for evaluation to complete the work-up for stroke. ECG Initial ECG Impression Date: Aug 05, 2020 Initial ECG Impression Time: 10:35 Initial ECG Rate: 95 Initial ECG Rhythm: Normal Sinus Initial ECG Intervals: Normal Initial ECG Impression: Normal Departure Communication (Admissions) Time/Spoke to Admitting Phy: 12:[address] Roberto who accepts the patient for admission Time/Spoke to Consulting Phy: 12:[address] Russell will see patient in consultation Impression Primary Impression: TIA (transient ischemic attack) Disposition: ADMITTED INPATIENT Condition: Stable Admissions Decision to Admit Reason: Admit from ER (General) Decision to Admit/Date: Aug 05, 2020 Time/Decision to Admit Time: 12:39 Departure-Patient Inst. Referrals: [facility] (PCP) Primary Care Physician CATRACHITA MOLINA (Family) Primary Care Physician NOLA OCHN MD Aug 05, 2020 10:56
[2020-08-05 11:06] LABS: ALBUMIN 4.2 GM/DL (3.2-4.5); POTASSIUM 4.4 MMOL/L (3.6-5.0)
[2020-08-05 11:08] LABS: CALCIUM 9.8 MG/DL (8.5-10.1)
[2020-08-05 11:09] LABS: TOTAL PROTEIN 7.8 GM/DL (6.4-8.2)
[2020-08-05 11:10] LABS: BASOPHILS # (AUTO) 0.1 10^3/uL (0.0-0.1); BASOPHILS % (AUTO) 1 % (0-10); EOSINOPHILS # (AUTO) 0.4 10^3/uL (0.0-0.3); EOSINOPHILS % (AUTO) 3 % (0-10); HEMATOCRIT 42 % (35-52); HEMOGLOBIN 13.9 g/dL (11.5-16.0); LYMPHOCYTES # (AUTO) 2.5 10^3/uL (1.0-4.0); LYMPHOCYTES % (AUTO) 17 % (12-44); MEAN CORPUSCULAR HEMOGLOBIN 28 pg (25-34); MEAN CORPUSCULAR HGB CONC 33 g/dL (32-36); MEAN CORPUSCULAR VOLUME 85 fL (80-99); MEAN PLATELET VOLUME 10.4 fL (9.0-12.2); MONOCYTES # (AUTO) 0.8 10^3/uL (0.0-1.0); MONOCYTES % (AUTO) 6 % (0-12); NEUTROPHILS # (AUTO) 10.8 10^3/uL (1.8-7.8); NEUTROPHILS % (AUTO) 73 % (42-75); PLATELET COUNT 315 10^3/uL (130-400); WHITE BLOOD COUNT 14.7 10^3/uL (4.3-11.0)
[2020-08-05 11:11] LABS: BILIRUBIN,TOTAL 0.5 MG/DL (0.1-1.0)
[2020-08-05 11:13] LABS: CREATININE SERUM 1.61 MG/DL (0.60-1.30)
--- NOTE | 2020-08-05 11:24 | Diagnostic Imaging Report ---
Indication: Left-sided weakness and dizziness. Time of exam: 11:04 AM Correlation is made with prior chest from 12/08/2018. Heart size is normal. Lungs are clear. There is no infiltrate. No effusion or pneumothorax is detected. Multiple surgical clips left upper quadrant are noted. IMPRESSION: No acute cardiopulmonary process is detected. Dictated by: Dictated on workstation # [id number]
--- NOTE | 2020-08-05 11:38 | Diagnostic Imaging Report ---
PROCEDURE: CT head without contrast. TECHNIQUE: Multiple contiguous axial images were obtained through the brain without the use of intravenous contrast. Auto Exposure Controls were utilized during the CT exam to meet ALARA standards for radiation dose reduction. DATE: August 05, 2020. COMPARISON: CT head and cervical spine December 08, 2018. INDICATION: 64-year-old female, left-sided weakness, dizziness. Ataxia. FINDINGS: The ventricles and cerebral spinal fluid spaces are of normal size and configuration for the patient's age. There is no mass effect or midline shift. There is no acute intracranial hemorrhage. There is no abnormal extra-axial fluid collection. The visualized portions of the paranasal sinuses, mastoid air cells and middle ears are well aerated. IMPRESSION: 1. No identified acute intracranial abnormality. Dictated by: Dictated on workstation # [id number]
[2020-08-05 11:43] LABS: EOSINOPHILS % (MANUAL) 2 %; LYMPHOCYTES % (MANUAL) 11 %; MONOCYTES % (MANUAL) 8 %; NEUTROPHILS % (MANUAL) 71 %; RBC MORPH NORMAL; REACTIVE LYMPHOCYTES 8 %
[2020-08-05 12:11] LABS: PROTHROMBIN TIME PATIENT 13.1 SEC (12.2-14.7)
--- NOTE | 2020-08-05 13:58 | Consultation-Cardiology ---
HPI-Cardiology Cardiology Consultation: Date of Consultation 08/05/20 Date of Admission 08-05-20 Attending Physician Tequila Vázquez DO Admitting Physician Aram Grace - Chc Of Consulting Physician Rosario Parkinson MD HPI: Chief Complaint: TIA Ms. Cohen is a 64 yr old female being admitted to [facility] from the ED with TIA. Review of Systems-Cardiology All Other Systems Reviewed Negative Unless Noted: Yes IEJ-Abecfx-Rihqmw Hx Patient Social History Smoking Status: Former Smoker 2nd Hand Smoke Exposure: No Immunizations Up To Date Date of Influenza Vaccine: Dec 22, 2019 Past Medical History PMH As described under Assessment. Allergies and Home Medications Allergies Coded Allergies: No Known Drug Allergies (Unverified , 01/23/20) Home Medications Amoxicillin/Potassium Clav 1 Each Tablet, 1 EACH PO BID Prescribed by: TEQUILA VÁZQUEZ on 01/24/20 1252 Aspirin 81 Mg Tablet.dr, 81 MG PO DAILY, (Reported) Gabapentin 300 Mg Capsule, 900 MG PO HS, (Reported) TAKES 3 (300MG) CAPSULES Insulin Aspart 300 Units/3 Ml Solution, 0 SQ UD Prescribed by: RICK SAMPSON on 12/08/18 191 Liraglutide 0.6 Mg/0.1 Ml Pen.injctr, 1.8 MG SC DAILY, (Reported) Lovastatin 20 Mg Tablet, 20 MG PO HS, (Reported) Physical Exam-Cardiology Physical Exam Vital Signs/I&O 08/05/20 10:20 Temp 36.9 Pulse 102 Resp 16 B/P (MAP) 88/68 (75) Pulse Ox 92 O2 Delivery Room Air Capillary Refill : Less Than 3 Seconds Data Review Labs Laboratory Tests 08/05/20 10:27: White Blood Count 14.7H, Red Blood Count 5.00, Hemoglobin 13.9, Hematocrit 42, Mean Corpuscular Volume 85, Mean Corpuscular Hemoglobin 28, Mean Corpuscular H emoglobin Concent 33, Red Cell Distribution Width 13.5, Platelet Count 315, Mean Platelet Volume 10.4, Immature Granulocyte % (Auto) 0, Neutrophils (%) (Auto) 73, Lymphocytes (%) (Auto) 17, Monocytes (%) (Auto) 6, Eosinophils (%) (Auto) 3, Basophils (%) (Auto) 1, Neutrophils # (Auto) 10.8H, Lymphocytes # (Auto) 2.5, Monocytes # (Auto) 0.8, Eosinophils # (Auto) 0.4H, Basophils # (Auto) 0.1, Immature Granulocyte # (Auto) 0.1, Neutrophils % (Manual) 71, Lymphocytes % ( Manual) 11, Monocytes % (Manual) 8, Eosinophils % (Manual) 2, Reactive Lymphocytes 8, Blood Morphology Comment NORMAL, Sodium Level 138, Potassium Level 4.4, Chloride Level 99, Carbon Dioxide Level 26, Anion Gap 13, Blood Urea Nitrogen 25H, Creatinine 1.61H, Estimat Glomerular Filtration Rate 32, BUN/Creatinine Ratio 16, Glucose Level 80, Calcium Level 9.8, Corrected Calcium 9.6, Total Bilirubin 0.5, Aspartate Amino Transf (AST/SGOT) 17, Alanine Aminotransferase (ALT/SGPT) 13, Alkaline Phosphatase 112, Total Protein 7.8, Albumin 4.2 08/05/20 10:42: Glucometer 121H 08/05/20 11:54: Prothrombin Time 13.1, INR Comment 1.0, Activated Partial Thromboplast Time 23L Radiology NAME: GOPAL COHEN [facility] REC#: [id number] PT STATUS: REG ER : 1955 PHYSICIAN: NOLA COHN MD ADMIT DATE: 08/05/20/ER Signed Date of Exam:08/05/20 CT HEAD WO PROCEDURE: CT head without contrast. TECHNIQUE: Multiple contiguous axial images were obtained through the brain without the use of intravenous contrast. Auto Exposure Controls were utilized during the CT exam to meet ALARA standards for radiation dose reduction. DATE: August 05, 2020. COMPARISON: CT head and cervical spine December 08, 2018. INDICATION: 64-year-old female, left-sided weakness, dizziness. Ataxia. FINDINGS: The ventricles and cerebral spinal fluid spaces are of normal size and configuration for the patient's age. There is no mass effect or midline shift. There is no acute intracranial hemorrhage. There is no abnormal extra-axial fluid collection. The visualized portions of the paranasal sinuses, mastoid air cells and middle ears are well aerated. IMPRESSION: 1. No identified acute intracranial abnormality. Dictated by: Dictated on workstation # [id number] Dict: 08/05/20 1127 Trans: 08/05/20 1249 [facility] [id number] Interpreted by: NICOLE CABAN MD Electronically signed by: NICOLE CABAN MD 08/05/20 1249 NAME: GOPAL COHEN [facility] REC#: [id number] PT STATUS: REG ER : 1955 PHYSICIAN: NOLA COHN MD ADMIT DATE: 08/05/20/ER Draft Date of Exam:08/05/20 CHEST 1 VIEW, AP/PA ONLY Indication: Left-sided weakness and dizziness. Time of exam: 11:04 AM Correlation is made with prior chest from 12/08/2018. Heart size is normal. Lungs are clear. There is no infiltrate. No effusion or pneumothorax is detected. Multiple surgical clips left upper quadrant are noted. IMPRESSION: No acute cardiopulmonary process is detected. Dictated on workstation # [id number] Dict: 08/05/20 1122 Trans: 08/05/20 1124 CVB [id number] Interpreted by: SAMI PELAYO MD Electronically signed by: A/P-Cardiology Assessment/Admission Diagnosis TIA Transisent hypotension of undetermined etiology DM 2 ANNEMARIE HERNÁNDEZ Aug 05, 2020 13:58
[2020-08-05] MEDS ORDERED: CELE200C PO (15:58)
[2020-08-05] MEDS ORDERED: HYDR-3817 PO (15:59)
[2020-08-05] MEDS ORDERED: INSU100V5 SQ (16:00)
[2020-08-05] MEDS ORDERED: AMT10T PO (16:01)
--- NOTE | 2020-08-05 17:15 | Diagnostic Imaging Report ---
CLINICAL INDICATION: Patient with TIA. Patient had multiple TIAs recently and has difficulty walking. EXAM: MRI of the brain performed without IV contrast. Sequences include axial DWI, ADC map, axial T2, axial FLAIR, axial T1, coronal gradient echo, and sagittal T1. COMPARISON: Head CT without contrast dated 08/05/2020. MRI of the brain without contrast dated 05/14/2014. FINDINGS: There is no evidence of acute cerebral infarct, intracranial hemorrhage, or gross mass effect. The brain parenchymal volume appears appropriate for patient's age. There are small focal areas of high T2 signal white matter changes involving both cerebral hemispheres likely representing chronic small vessel ischemic disease. Prior study has significant motion artifact limiting evaluation and comparison of small vessel ischemic disease. There is normal licea-white matter distinction. There is no significant midline shift or herniation. The [place] vascular structures show no gross abnormality as visualized. The pituitary gland, sella, and suprasellar regions are unremarkable as visualized. There is no evidence of hydrocephalus. The basal cisterns are unremarkable. The skull, extracranial soft tissue, and orbits are unremarkable. The paranasal sinuses are unremarkable. There is minimal fluid in both mastoid air cells. IMPRESSION: 1: There is no evidence of acute intracranial process. 2: Mild age-related brain parenchymal changes. 3: There is minimal fluid in both mastoid air cells. Dictated by: Dictated on workstation # [id number]
--- NOTE | 2020-08-05 18:48 | Consultation-Cardiology ---
HPI-Cardiology Cardiology Consultation: Date of Consultation 08/05/20 Time Seen by a Provider: 18:30 Date of Admission Attending Physician Tequila Roberto DO Admitting Physician Aram Grace - Chc Of Consulting Physician NAHED PORTILLO MD, MA, FACP, FACC, [facility], [facility] Physician requesting consult: Dr Roberto HPI: Chief Complaint: Reason for consultation: TIA HPI Ms. Cohen is a 64 yr old female admitted by Dr Roberto to her service with the diagnosis of TIA and we have been asked to see her in Cardiology consult. The patient report chronic dizziness and gen weakness that is more marked in both legs. These symptoms were worse this morning and she feels that she may have been a little more weak on the L than on the R. Currently, she feels back to her usual baseline. She denies cp or palp or syncope or swelling. Review of Systems-Cardiology Review of Systems Constitutional: malaise, tiredness; No weight loss, No weight gain Eyes: No vision change Ears/Nose/Throat: No ear discharge, No nasal drainage, No recent hearing loss Respiratory: As described under HPI Cardiovascular: As described under HPI Gastrointestinal: No diarrhea, No nausea, No vomiting Genitourinary: No dysuria, No hematuria, No urine frequency changes Musculoskeletal: No back pain, No joint pain Skin: No rash, No ulcerations Psychiatric/Neurological: As described under HPI Hematologic: No bleeding abnormalities All Other Systems Reviewed Negative Unless Noted: Yes NAC-Pdbcix-Bxxvub Hx Patient Social History Smoking Status: Former Smoker 2nd Hand Smoke Exposure: No Have you traveled recently?: No Alcohol Use?: No Pt feels they are or have been: No Tobacco type used: Cigarettes Immunizations Up To Date Date of Influenza Vaccine: Jan 01, 2020 Past Medical History PMH As described under Assessment. Family Medical History Family Medical History: Father had a "massive" stroke at age 68 Allergies and Home Medications Allergies Coded Allergies: No Known Drug Allergies (Unverified , 01/23/20) Home Medications Aspirin 81 Mg Tablet., 81 MG PO DAILY, (Reported) Last Action: Reviewed Celecoxib 200 Mg Capsule, 200 MG PO HS, (Reported) Last Action: New Order Gabapentin 300 Mg Capsule, 900 MG PO HS, (Reported) TAKES 3 (300MG) CAPSULES Last Action: Reviewed Hydrocodone/Acetaminophen 1 Each Tablet, 1 EACH PO BID, (Reported) Last Action: New Order Insulin Aspart 300 Units/3 Ml Solution, 0 SQ UD Prescribed by: RICK SAMPSON on 12/08/181913 Last Action: Reviewed Insulin Determir 1,000 Units/10 Ml Soln, 10 UNITS SQ DAILY, (Reported) Last Action: New Order Liraglutide 0.6 Mg/0.1 Ml Pen.injctr, 1.8 MG SC DAILY, (Reported) Last Action: Reviewed Lovastatin 20 Mg Tablet, 20 MG PO HS, (Reported) Last Action: Reviewed Patient Home Medication List Home Medication List Reviewed: Yes Physical Exam-Cardiology Physical Exam Vital Signs/I&O 08/05/20 08/05/20 08/05/20 08/05/20 10:20 15:40 15:45 15:56 Temp 36.9 36.8 Pulse 102 88 92 90 Resp 16 16 22 B/P (MAP) 88/68 (75) 103/85 162/97 (118) Pulse Ox 92 96 100 O2 Delivery Room Air Room Air Room Air 08/05/20 08/05/20 08/05/20 16:45 17:04 18:26 Temp 36.9 Pulse 90 Pulse Ox 96 93 O2 Delivery Room Air Room Air FiO2 21 Capillary Refill : Less Than 3 Seconds Constitutional: AAO x 3, well-developed, well-nourished HEENT: PERRL, other (edentulous jaws), EOMI Neck: No carotid bruit; carotid pulses are 2 + bilaterally, with good upstrokes Respiratory: No accessory muscle use; other (good, bilateral air entry) Cardiovascular: regular rate-rhythm, S1 and S2 Gastrointestinal: No tender; soft; No guarding, No rebound; audible bowel sounds Extremities: No clubbing, No cyanosis, No significant edema Neurologic/Psychiatric: oriented x 3, other (moves all limbs equally) Skin: No rash on exposed areas, No ulcerations on exposed areas Data Review Labs Laboratory Tests 08/05/20 10:27: White Blood Count 14.7H, Red Blood Count 5.00, Hemoglobin 13.9, Hematocrit 42, Mean Corpuscular Volume 85, Mean Corpuscular Hemoglobin 28, Mean Corpuscular Hemoglobin Concent 33, Red Cell Distribution Width 13.5, Platelet Count 315, Mean Platelet Volume 10.4, Immature Granulocyte % (Auto) 0, Neutrophils (%) (Auto) 73, Lymphocytes (%) (Auto) 17, Monocytes (%) (Auto) 6, Eosinophils (%) (Auto) 3, Basophils (%) (Auto) 1, Neutrophils # (Auto) 10.8H, Lymphocytes # (Aut o) 2.5, Monocytes # (Auto) 0.8, Eosinophils # (Auto) 0.4H, Basophils # (Auto) 0.1, Immature Granulocyte # (Auto) 0.1, Neutrophils % (Manual) 71, Lymphocytes % (Manual) 11, Monocytes % (Manual) 8, Eosinophils % (Manual) 2, Reactive Lymp hocytes 8, Blood Morphology Comment NORMAL, Sodium Level 138, Potassium Level 4.4, Chloride Level 99, Carbon Dioxide Level 26, Anion Gap 13, Blood Urea Nitrogen 25H, Creatinine 1.61H, Estimat Glomerular Filtration Rate 32, BUN/Creatinine Ratio 16, Glucose Level 80, Calcium Level 9.8, Corrected Calcium 9.6, Total Bilirubin 0.5, Aspartate Amino Transf (AST/SGOT) 17, Alanine Aminotransferase (ALT/SGPT) 13, Alkaline Phosphatase 112, Total Protein 7.8, Albumin 4.2 08/05/20 10:42: Glucometer 121H 08/05/20 11:54: Prothrombin Time 13.1, INR Comment 1.0, Activated Partial Thromboplast Time 23L A/P-Cardiology Assessment/Admission Diagnosis ?TIA, Dr Roberto managing Echo on 08/05/20: suboptimal study, LVEF 50-55% DM 2, Dr Roberto managing Discussion and Recomendations * Keep on tele * Management of possible TIA is with [facility]HED Lombardi [facility] Aug 05, 2020 18:48
--- NOTE | 2020-08-05 21:54 | History & Physical-Hospitalist ---
History of Present Illness HPI/Chief Complaint Chief complaint: Unilateral weakness suspicion for stroke History of present illness: This is a 64-year-old white female clinic patient of [facility] who presents with dizziness and left-sided weakness that comple tely resolved during her ER stay. She is a former smoker. She reports that the symptoms have completely resolved. Cardiology was consulted. MRI showed no evidence of any type of stroke. Will monitor closely overnight and perform further risk stratification. Source: patient Exam Limitations: no limitations Date Seen 08/05/20 Time Seen by a Provider: 18:00 Attending Physician Tequila Roberto DO [facility] Referring Physician Date of Admission Aug 05, 2020 at 12:46 Home Medications & Allergies Home Medications Reviewed patient Home Medication Reconciliation performed by pharmacy medication reconciliations phlebotomy technician and/or nursing. Patients Allergies have been reviewed. Allergies Allergies Coded Allergies No Known Drug Allergies (Cflwdapznc47/21/20) Past Sqovhtr-Xcesee-Niargu Hx Patient Social History Marrital Status: single Employed/Student: retired Tobacco Use?: No Tobacco type used: Cigarettes Smoking Status: Former Smoker Use of E-Cig and/or Vaping dev: No Substance use?: No Alcohol Use?: No Pt feels they are or have been: No Immunizations Up To Date Date of Influenza Vaccine: Jan 01, 2020 Second COVID19 Vaccination Hernando: UNSURE - STATES SEVERAL WEEKS AGO Tetanus Booster (TDap): Unknown Hepatitis A: Yes Hepatitis B: Yes Current Status status: No status: No Advance Directives: No Communicates: Verbally Primary Language: Chinese Preferred Spoken Language: Chinese Is interpretation needed?: No Implanted or Applied Medical D: Orthopedic hardware Past Medical History Surgeries: Abdominal, Appendectomy, Gallbladder, Hysterectomy, Orthopedic High Cholesterol, Hypertension 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 0.6oz. 84.438383lk; 34.68 BMI Method:Stated General Appearance: No Apparent Distress Eyes: Right Eye Normal Inspection, Right Eye PERRL HEENT: PERRL/EOMI, TMs Normal, Normal ENT Inspection, Pharynx Normal, Moist Mucous Membranes Neck: Full Range of Motion, Normal Inspection, Non Tender Respiratory: Chest Non Tender, Lungs Clear, Normal Breath Sounds, No Accessory Muscle Use, No Respiratory Distress Cardiovascular: Regular Rate, Rhythm, No Edema, No Gallop, No JVD, No Murmur, Normal Peripheral Pulses Gastrointestinal: Normal Bowel Sounds, No Organomegaly, No Pulsatile Mass, Non Tender, Soft Back: Normal Inspection, No CVA Tenderness, No Vertebral Tenderness Extremity: Normal Capillary Refill, Normal Inspection, Normal Range of Motion, Non Tender, No Calf Tenderness, No Pedal Edema Neurologic/Psychiatric: Alert, Oriented x3, No Motor/Sensory Deficits, Normal Mood/Affect Skin: Normal Color, Warm/Dry Lymphatic: No Adenopathy Results Results/Procedures Labs Laboratory Tests 08/05/20 10:27 08/06/20 06:00 Patient resulted labs reviewed. Assessment/Plan Admission Diagnosis Assessment: Dizziness Left-sided weakness now resolved with MRI no evidence of stroke Diabetes Obesity Former smoker Hypertension Hyperlipidemia Plan: Cardiology consult Risk ratification Monitor closely Admission Status: Observation Diagnosis/Problems Diagnosis/Problems (1) TIA (transient ischemic attack) Status: Acute TEQUILA ROBERTO DO Aug 05, 2020 21:54
[2020-08-06] VITALS: BP 141/94
[2020-08-06 04:00] VITALS: BP 114/73
[2020-08-06 06:13] LABS: BASOPHILS # (AUTO) 0.1 10^3/uL (0.0-0.1); BASOPHILS % (AUTO) 1 % (0-10); EOSINOPHILS # (AUTO) 0.4 10^3/uL (0.0-0.3); EOSINOPHILS % (AUTO) 4 % (0-10); HEMATOCRIT 37 % (35-52); HEMOGLOBIN 12.3 g/dL (11.5-16.0); LYMPHOCYTES # (AUTO) 2.2 10^3/uL (1.0-4.0); LYMPHOCYTES % (AUTO) 21 % (12-44); MEAN CORPUSCULAR HEMOGLOBIN 28 pg (25-34); MEAN CORPUSCULAR HGB CONC 33 g/dL (32-36); MEAN CORPUSCULAR VOLUME 84 fL (80-99); MEAN PLATELET VOLUME 10.2 fL (9.0-12.2); MONOCYTES # (AUTO) 0.6 10^3/uL (0.0-1.0); MONOCYTES % (AUTO) 6 % (0-12); NEUTROPHILS # (AUTO) 7.3 10^3/uL (1.8-7.8); NEUTROPHILS % (AUTO) 69 % (42-75); PLATELET COUNT 232 10^3/uL (130-400); WHITE BLOOD COUNT 10.6 10^3/uL (4.3-11.0)
[2020-08-06 06:36] LABS: ALBUMIN 3.6 GM/DL (3.2-4.5); POTASSIUM 4.4 MMOL/L (3.6-5.0)
[2020-08-06 06:37] LABS: CALCIUM 9.1 MG/DL (8.5-10.1)
[2020-08-06 06:38] LABS: TOTAL PROTEIN 6.6 GM/DL (6.4-8.2)
[2020-08-06 06:40] LABS: BILIRUBIN,TOTAL 0.5 MG/DL (0.1-1.0)
[2020-08-06 06:42] LABS: CREATININE SERUM 1.55 MG/DL (0.60-1.30)
[2020-08-06 07:31] VITALS: BP 101/73
[2020-08-06] MEDS ORDERED: ASPIRIN 81 MG CHEW (CHILDREN'S ASA) PO SCH (09:00)
[2020-08-06 11:59] VITALS: BP 121/80
--- NOTE | 2020-08-06 12:40 | Discharge Summary ---
Discharge Summary Hospital Course Was the Problem List Reviewed?: Yes Problems/Dx: (1) Syncopal episodes Hospital Course Date of Admission: Aug 05, 2020 at 12:46 Admission Diagnosis : Family Physician/Provider: Ralph Connor Date of Discharge: 08/06/20 Discharge Diagnosis: Syncopal episode acute on chronic and recurrent in type unrelated to blood sugar level and no evidence of TIA or stroke Hospital Course: Short hospital course for observation for left-sided weakness and dizziness and this is acute on chronic with recurrence but not related to any lab abnormality MRI showed no evidence of TIA or stroke patient will require neurology evaluation as an outpatient. Carotid ultrasound and CT scan and labs all remained stable. Cardiology was consulted and had no other recommendations. Labs and Pending Lab Test: Laboratory Tests 08/06/20 06:00: White Blood Count 10.6, Red Blood Count 4.42, Hemoglobin 12.3, Hematocrit 37, Mean Corpuscular Volume 84, Mean Corpuscular Hemoglobin 28, Mean Corpuscular Hemoglobin Concent 33, Red Cell Distribution Width 13.3, Platelet Count 232, Mean Platelet Volume 10.2, Immature Granulocyte % (Auto) 1, Neutrophils (%) (Auto) 69, Lymphocytes (%) (Auto) 21, Monocytes (%) (Auto) 6, Eosinophils (%) (Auto) 4, Basophils (%) (Auto) 1, Neutrophils # (Auto) 7.3, Lymphocytes # (Auto) 2.2, Monocytes # (Auto) 0.6, Eosinophils # (Auto) 0.4H, Basophils # (Auto) 0.1, Immature Granulocyte # (Auto) 0.1, Sodium Level 135, Potassium Level 4.4, Chloride Level 99, Carbon Dioxide Level 24, Anion Gap 12, Blood Urea Nitrogen 2 7H, Creatinine 1.55H, Estimat Glomerular Filtration Rate 34, BUN/Creatinine Ratio 17, Glucose Level 156H, Calcium Level 9.1, Corrected Calcium 9.4, Total Bilirubin 0.5, Aspartate Amino Transf (AST/SGOT) 14, Alanine Aminotransferase (ALT/SGPT) 11, Alkaline Phosphatase 96, Total Protein 6.6, Albumin 3.6 Home Meds Active Novolog Flexpen (Insulin Aspart) 300 Units/3 Ml Solution 0 SQ UD Reported Amitriptyline HCl 10 Mg Tablet 10 Mg PO Levemir (Insulin Determir) 1,000 Units/10 Ml Soln 10 Units SQ DAILY Hydrocodone-Acetamin 7.5-325 (Hydrocodone/Acetaminophen) 1 Each Tablet 1 Each PO BID Celebrex (Celecoxib) 200 Mg Capsule 200 Mg PO HS Aspirin EC (Aspirin) 81 Mg Tablet.dr 81 Mg PO DAILY Victoza 3-Jn (Liraglutide) 0.6 Mg/0.1 Ml Pen.injctr 1.8 Mg SC DAILY Gabapentin 300 Mg Capsule 900 Mg PO HS TAKES 3 (300MG) CAPSULES Lovastatin 20 Mg Tablet 20 Mg PO HS Assessment/Pt Instructions [facility] in 1 week to refer to neurology Discharge Planning: <30 minutes discharge planning Discharge Instructions Discharge Diet: ADA Diet Discharge Physical Examination Vital Signs Vital Signs Date Time Temp Pulse Resp B/P (MAP) Pulse Ox O2 Delivery O2 Flow Rate FiO2 08/06/20 11:59 36.6 90 20 121/80 (94) 96 Room Air 08/05/20 16:45 21 General Appearance: No Apparent Distress, WD/WN, Chronically ill, Obese Allergies: Coded Allergies: No Known Drug Allergies (Unverified , 01/23/20) Discharge Summary Date of Admission Aug 05, 2020 at 12:46 Date of Discharge Discharge Date: Aug 06, 2020 Admission Diagnosis Assessment: Dizziness Left-sided weakness now resolved with MRI no evidence of stroke Diabetes Obesity Former smoker Hypertension Hyperlipidemia Plan: Cardiology consult Risk ratification Monitor closely Discharge Diagnosis (1) TIA (transient ischemic attack) Status: Acute KATELYNN VÁZQUEZ DO Aug 06, 2020 12:40
--- NOTE | 2020-08-06 12:48 | Diagnostic Imaging Report ---
PROCEDURE: US carotid duplex, bilateral. TECHNIQUE: Multiple real-time grayscale images were obtained over the carotid arteries in various projections, bilaterally. Additional spectral analysis and color Doppler duplex images were also obtained. INDICATION: Follow-up transient ischemic attack, carotid stenosis. COMPARISON: None. DISCUSSION: Sonographic evaluation of the common and internal carotid arteries and bilateral vertebral arteries was performed with a linear transducer. Images were assessed for grayscale appearance, spectral and color Doppler blood flow. No significant atherosclerotic plaque is identified within either carotid bifurcation. Normal flow velocities are present within the bilateral internal and external carotid arteries. Normal antegrade flow within the bilateral vertebral arteries. IMPRESSION: 1. The bilateral carotid bifurcations are widely patent. Parameters based on the consensus panel Maravilla-Scale and Doppler ultrasound criteria published January 2003, Radiology, Volume 229. DOPPLER (peak systolic velocity M/S Right Left CCA .61 .76 ICA Proximal .61 .50 ICA Mid .84 1.0 ICA Distal 1.0 1.1 RATIO 1.7 1.4 ECA .73 .78 VERT .50 .72 Dictated by: Dictated on workstation # [id number]
== END 2020-08-06 13:45 | disposition home or self-care (01) ==
LOC: EDUNIT# 10:05 → ER 10:08 → CSD 12:46
PROVIDERS: ADMIT Internal Medicine; ATTEND Internal Medicine
DX: G45.9 Transient cerebral ischemic attack, unspecified (principal); E78.5 Hyperlipidemia, unspecified; I12.9 Hypertensive chronic kidney disease with stage 1 through stage 4 chronic kidney disease, or unspecified chronic kidney disease; N18.9 Chronic kidney disease, unspecified; D63.1 Anemia in chronic kidney disease; E11.22 Type 2 diabetes mellitus with diabetic chronic kidney disease; F41.9 Anxiety disorder, unspecified; F32.9 Major depressive disorder, single episode, unspecified; R55 Syncope and collapse; G89.29 Other chronic pain; M54.9 Dorsalgia, unspecified; E66.9 Obesity, unspecified; Z68.34 Body mass index [BMI] 34.0-34.9, adult; Z79.82 Long term (current) use of aspirin; Z79.899 Other long term (current) drug therapy; Z79.4 Long term (current) use of insulin; Z87.891 Personal history of nicotine dependence
CPT/HCPCS: 36415; 70450; 70551; 71045; 80053; 82947; 85007; 85025; 85027; 85610; 85730; 93005; 93306; 93880; 94760

== ENCOUNTER 2020-11-01 13:17 | Emergency (ER) | payer MEDICARE ==
[~2020-11-01] VITALS: Ht 162 cm; Wt 88.0 kg
[~2020-11-01 13:17] MED LIST changes: +AMT10T PO; +CELE200C PO; +HYDR-3817 PO; +INSU100V5 SQ; -SULF1TAB35 PO; +SULF1TAB38 PO
[2020-11-01] MEDS ORDERED: HYDROcodone/APAP 7.5 MG/325 MG (LORTAB, LORCET PLUS) TABLET PO STA (13:43)
[2020-11-01] MEDS ORDERED: CYCLOBENZAPRINE 10 MG (FLEXERIL) TAB PO STA (13:43)
[2020-11-01 13:52] LABS: BILIRUBIN,URINE NEGATIVE (NEGATIVE); CLARITY,URINE CLOUDY; COLOR,URINE YELLOW; GLUCOSE, URINE (UA) 3+ (NEGATIVE); KETONES,URINE NEGATIVE (NEGATIVE); LEUKOCYTE ESTERASE ,URINE 2+ (NEGATIVE); NITRITE,URINE NEGATIVE (NEGATIVE); PROTEIN,URINE NEGATIVE (NEGATIVE)
[2020-11-01 14:05] LABS: AMORPHOUS SEDIMENT,UR RARE AMOR URATES /LPF; BACTERIA,URINE FEW /HPF; RBC,URINE TNTC /HPF; WBC,URINE TNTC /HPF
--- NOTE | 2020-11-01 14:13 | ED Back Pain ---
General Chief Complaint: Back Problems Stated Complaint: FELL BACK PAIN Nursing Triage Note: ARRIVED VIA AMB WITH COMPLAINTS OF LOWER BACK PAIN AFTER FALLING OFF HER PORCH ON SAT. History of Present Illness Date Seen by Provider: Nov 01, 2020 Time Seen by Provider: 13:20 Initial Comments 62-year-old female presents for low back pain. Patient reports falling down 3 stairs while coming off her porch on 05/29/2020. She landed on her low back. Since then she has been having increasing pain in her low back. She has a history of 2 previous spine surgeries including hardware for stabilization of her lumbar spine. She has chronic neuropathy in her lower extremities secondary to diabetes and peripheral vascular disease. She is on hydrocodone for chronic low back pain. Her last dose of hydrocodone was approximately 6 hours ago. She has not seen her primary care provider for her symptoms. She denies any changes in her extremities. She has had no bowel or bladder incontinence or retention. She has been using a walker for ambulation. Timing/Duration: 3-4 Days Severity: Moderate Pain/Injury Location: Back Radiation: Buttocks, Upper Legs Associated Symptoms: muscle spasms, numbness in legs/feet (Chronic), sensory/motor loss (Chronic no change), lower back pain; No loss of bladder control, No loss of bowel control Allergies and Home Medications Allergies Coded Allergies: No Known Drug Allergies (Unverified , 01/23/20) Home Medications Aspirin 81 Mg Tablet.dr, 81 MG PO DAILY, (Reported) Celecoxib 200 Mg Capsule, 200 MG PO HS, (Reported) Cyclobenzaprine HCl 10 Mg Tablet, 10 MG PO Q8H PRN for SPASMS Prescribed by: MATT ZIEGLER on 11/01/20 1450 Gabapentin 300 Mg Capsule, 900 MG PO HS, (Reported) TAKES 3 (300MG) CAPSULES Hydrocodone/Acetaminophen 1 Each Tablet, 1 EACH PO BID, (Reported) Hydrocodone/Acetaminophen 1 Each Tablet, 1 EACH PO Q6H Prescribed by: MATT ZIEGLER on 11/01/20 1452 Insulin Aspart 300 Units/3 Ml Solution, 0 SQ UD Prescribed by: RICK SAMPSON on 12/08/18 191 Insulin Determir 1,000 Units/10 Ml Soln, 10 UNITS SQ DAILY, (Reported) Liraglutide 0.6 Mg/0.1 Ml Pen.injctr, 1.8 MG SC DAILY, (Reported) Lovastatin 20 Mg Tablet, 20 MG PO HS, (Reported) Nitrofurantoin Macrocrystal 100 Mg Capsule, 100 MG PO BID Prescribed by: MATT ZIEGLER on 11/01/20 6648 Patient Home Medication List Home Medication List Reviewed: Yes Review of Systems Constitutional: no symptoms reported, see HPI Musculoskeletal: see HPI, back pain All Other Systems Reviewed Negative Unless Noted: Yes Past Weiywaz-Gwdnwe-Irukec Hx Patient Social History Tobacco Use?: No Substance use?: No Alcohol Use?: No Immunizations Up To Date Second COVID19 Vaccination Hernando: MODERNA UNKNOWN DATE Past Medical History Surgeries: Yes (GASTRIC BYPASS, BACK SX X 2) Abdominal, Appendectomy, Gallbladder, Hysterectomy, Orthopedic Respiratory: No Cardiac: Yes High Cholesterol, Hypertension Neurological: Yes Neuropathy 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 Genitourinary: Yes Bladder Infection, Renal Failure Gastrointestinal: No Musculoskeletal: Yes (RESTLESS LEG SYNDROME) Chronic Back Pain Endocrine: Yes Diabetes, Insulin dep HEENT: Yes (GLASSES) Cancer: No Psychosocial: Yes Sleep Difficulties, Anxiety, Depression Integumentary: No Blood Disorders: Yes (ANEMIA) Family Medical History Reviewed Nursing Family Hx Physical Exam Vital Signs Vital Signs - First Documented 11/01/20 13:20 Temp 37.0 Pulse 96 Resp 16 B/P (MAP) 198/102 (134) Pulse Ox 96 O2 Delivery Room Air Capillary Refill : Less Than 3 Seconds Height, Weight, BMI Height: 5'5.00" Weight: 187lbs. 0.6oz. 84.551829jd; 33.00 BMI Method:Stated General Appearance: No Apparent Distress, WD/WN Neck: Full Range of Motion, Normal Inspection, Non Tender, Supple Cardiovascular: Regular Rate, Rhythm, No Murmur, Normal Peripheral Pulses Respiratory: Chest Non Tender, Lungs Clear, Normal Breath Sounds Gastrointestinal: Normal Bowel Sounds, Non Tender, Soft, Distended Back: Normal Inspection, Decreased Range of Motion (Secondary to pain), Muscle Spasm, Vertebral Tenderness, Other (Well-healed lower lumbar incision, no erythema or warmth. No ecchymosis noted to low back. She ambulates with an antalgic gait, she is able to rise onto her toes and heels. She has normal sensation to light touch throughout the lower extremities. Her power is 5/5 L4- S1.) Extremity: Normal Capillary Refill, Normal Inspection, Normal Range of Motion, Non Tender, No Calf Tenderness Neurologic/Psychiatric: Alert, Oriented x3, No Motor/Sensory Deficits, Normal Mood/Affect Skin: Normal Color, Warm/Dry Progress/Results/Core Measures Results/Orders Lab Results Laboratory Tests Test 11/01/20 13:45 Range/Units Urine Color YELLOW Urine Clarity CLOUDY Urine pH 6.0 5-9 Urine Specific [place] 1.015 L 1.016-1.022 Urine Protein NEGATIVE NEGATIVE Urine Glucose (UA) 3+ H NEGATIVE Urine Ketones NEGATIVE NEGATIVE Urine Nitrite NEGATIVE NEGATIVE Urine Bilirubin NEGATIVE NEGATIVE Urine Urobilinogen 1.0 < = 1.0 MG/DL Urine Leukocyte Esterase 2+ H NEGATIVE Urine RBC (Auto) 3+ H NEGATIVE Urine RBC TNTC H /HPF Urine WBC TNTC H /HPF Urine Crystals PRESENT H /LPF Urine Amorphous Sediment RARE EDWARD URATES H /LPF Urine Bacteria FEW H /HPF Urine Casts NONE /LPF Urine Mucus NEGATIVE /LPF Urine Culture Indicated YES My Orders Orders - MATT ZIEGLER Cyclobenzaprine Tablet (Flexeril Tablet) (11/01/20 13:43) Hydrocodone/Apap 7.5/325 Tab (Lortab 7. (11/01/20 13:43) Ct Lumbar Spine Wo (11/01/20 13:43) Ua Culture If Indicated (11/01/20 13:44) Urine Culture (11/01/20 13:45) Vital Signs/I&O 11/01/20 11/01/20 13:20 15:16 Temp 37.0 Pulse 96 96 Resp 16 16 B/P (MAP) 198/102 (134) 165/96 (119) Pulse Ox 96 97 O2 Delivery Room Air Room Air Blood Pressure Mean: 134 Progress Progress Note : Time: 13:20 Progress Note Patient seen and evaluated. Will obtain CT of the lumbar spine. Will give hydrocodone for pain and Flexeril for muscle spasms. 1420 CT of the lumbar spine shows a T12 fracture, acute with mild retropulsion of the fragments. No significant cord narrowing noted. Appt made with Dr. Woods for Nov 08. 1300 discharge instructions and return precautions reviewed with the patient. She is agreeable to following up with Dr. Woods. She has a walker at home. Copy of CT provided on disc. Diagnostic Imaging Diagonstic Imaging: CT Plain Films/CT/US/NM/MRI: other (Lumbar spine) Comments NAME: GOP[facility]AACS [facility] REC#: [id number] PT STATUS: REG ER : 1955 PHYSICIAN: MATT ZIEGLER ADMIT DATE: 11/01/20/ER Draft Date of Exam:11/01/20 CT LUMBAR SPINE WO PROCEDURE: CT lumbar spine without contrast. TECHNIQUE: Multiple contiguous axial images were obtained through the lumbar spine without the use of intravenous contrast. Sagittal and coronal reformations were then performed. Auto Exposure Controls were utilized during the CT exam to meet ALARA standards for radiation dose reduction. INDICATION: Fall and back pain. FINDINGS: Curvature of the lumbar spine is normal. There is anterolisthesis of L3 on L4. There are postoperative changes of posterior instrumented fusion with vertical stabilization rods and pedicle screws transfixing the L4 and L5 levels. There appears to be an acute fracture involving the T12 vertebral body. There is very slight retropulsion of fracture fragments indenting the ventral thecal sac, but no significant canal narrowing is seen. Remainder of the lumbar spine is unremarkable with normal vertebral body heights. Paraspinous tissues are unremarkable. IMPRESSION: Acute T12 vertebral body fracture with mild retropulsion of fracture fragments. The lumbar vertebrae show normal stature, and no acute lumbar fractures seen. There are postoperative changes of posterior instrumented fusion at L4-L5. Dictated on workstation # [id number] Dict: 11/01/20 1419 Trans: 11/01/20 1425 [id number] Interpreted by: SAMI PELAYO MD Electronically signed by: Reviewed: Reviewed by Me Departure Impression Primary Impression: Back pain Qualified Codes: M54.42 - Lumbago with sciatica, left side; M54.41 - Lumbago with sciatica, right side Additional Impressions: Fall (on) (from) other stairs and steps, initial encounter T12 compression fracture Qualified Codes: S22.080A - Wedge compression fracture of t11-T12 vertebra, initial encounter for closed fracture UTI (urinary tract infection) Qualified Codes: N30.01 - Acute cystitis with hematuria Disposition: HOME, SELF-CARE Condition: Stable Departure-Patient Inst. Decision time for Depature: 14:30 Referrals: [facility] (PCP) Primary Care Physician CATRACHITA MOLINA (Family) Primary Care Physician Patient Instructions: Low Back Pain (DC), Vertebral Compression Fracture, Urinary Tract Infection, Adult (DC) Add. Discharge Instructions: Use your walker at all times for ambulation. Take antibiotics as prescribed for your urinary tract infection. Continue to use the pain medication and muscle relaxants as needed. Continue all home medications, abide by your diabetic diet to keep your blood sugars and check. You have an appointment with Dr. Woods on Saturday11-08-20 at 2:00 PM at [facility] in [place]. Take your insurance information and the CT disc and paper with you. Follow-up with your primary care provider for additional pain control, if needed. Return to the emergency department for new, urgent healthcare needs. All discharge instructions reviewed with patient and/or family. Voiced understanding. Scripts Hydrocodone/Acetaminophen (Hydrocodone-Acetamin 7.5-325) 1 Each Tablet 1 EACH PO Q6H, #20 TAB 0 Refills Prov: MATT ZIEGLER 11/01/20 Nitrofurantoin Macrocrystal (Nitrofurantoin) 100 Mg Capsule 100 MG PO BID, #14 CAP 0 Refills Prov: MATT ZIEGLER 11/01/20 Cyclobenzaprine HCl (Cyclobenzaprine HCl) 10 Mg Tablet 10 MG PO Q8H PRN for SPASMS, #15 TAB 0 Refills Prov: MATT ZIEGLER 11/01/20 MATT ZIEGLER Nov 01, 2020 14:13
--- NOTE | 2020-11-01 14:25 | Diagnostic Imaging Report ---
PROCEDURE: CT lumbar spine without contrast. TECHNIQUE: Multiple contiguous axial images were obtained through the lumbar spine without the use of intravenous contrast. Sagittal and coronal reformations were then performed. Auto Exposure Controls were utilized during the CT exam to meet ALARA standards for radiation dose reduction. INDICATION: Fall and back pain. FINDINGS: Curvature of the lumbar spine is normal. There is anterolisthesis of L3 on L4. There are postoperative changes of posterior instrumented fusion with vertical stabilization rods and pedicle screws transfixing the L4 and L5 levels. There appears to be an acute fracture involving the T12 vertebral body. There is very slight retropulsion of fracture fragments indenting the ventral thecal sac, but no significant canal narrowing is seen. Remainder of the lumbar spine is unremarkable with normal vertebral body heights. Paraspinous tissues are unremarkable. IMPRESSION: Acute T12 vertebral body fracture with mild retropulsion of fracture fragments. The lumbar vertebrae show normal stature, and no acute lumbar fractures seen. There are postoperative changes of posterior instrumented fusion at L4-L5. Dictated by: Dictated on workstation # [id number]
[2020-11-01] MEDS ORDERED: HYDR-3817 PO (14:50)
[2020-11-01] MEDS ORDERED: NITR100C PO (14:50)
[2020-11-01] MEDS ORDERED: CYCL10TA9 PO (14:50)
[2020-11-01 15:16] VITALS: BP 165/96
== END 2020-11-01 15:16 | disposition home or self-care (01) ==
LOC: EDUNIT# 13:17 → ER 13:19
DX: S22.080A Wedge compression fracture of T11-T12 vertebra, initial encounter for closed fracture (principal); N39.0 Urinary tract infection, site not specified; I10 Essential (primary) hypertension; E78.00 Pure hypercholesterolemia, unspecified; E11.9 Type 2 diabetes mellitus without complications; G89.29 Other chronic pain; Z79.899 Other long term (current) drug therapy; Z79.82 Long term (current) use of aspirin; Z79.4 Long term (current) use of insulin; Z79.891 Long term (current) use of opiate analgesic; W10.8XXA Fall (on) (from) other stairs and steps, initial encounter
CPT/HCPCS: 72131; 81000; 87077; 87088; 87186

== ENCOUNTER 2020-11-08 10:57 | Emergency (ER) | payer MEDICARE ==
[~2020-11-08] VITALS: Ht 162.5 cm; Wt 88.0 kg
[~2020-11-08 10:57] MED LIST changes: +CYCL10TA9 PO; +NITR100C PO
--- NOTE | 2020-11-08 11:18 | ED Neurological Problem ---
General Stated Complaint: FELL,BACK PAIN Source: patient Exam Limitations: no limitations History of Present Illness Date Seen by Provider: Nov 08, 2020 Time Seen by Provider: 11:00 Initial Comments To ER by private vehicle from home [facility] with reports of ongoing midline low back pain, general weakness and dizziness. She believes that she is having a TIA. She states that she noticed herself to be dizzy causing her to fall at about 8 AM this morning. She woke up at about 730 and she cannot remember if she was dizzy then or not. She cannot remember if she was dizzy and weak last night either. She reports both of her legs feel generally weak. She is known to have a T12 fracture with mild retropulsion found on CT imaging after a fall sustained on 05/29/2020. She was seen here for this and has an appointment today with Dr. Woods from orthopedic spine surgery at 2 PM. She is not dizzy now but is generally weak. No loss of bowel or bladder control no loss of sensation of her genitals no fevers or chills. Reports that they had both of their "cobalt shots" in June of this year Timing/Duration: 1 week (After discussion with her and her I am unable to determine when symptoms started.) Severity: moderate Associated Symptoms: fatigue Allergies and Home Medications Allergies Coded Allergies: No Known Drug Allergies (Unverified , 01/23/20) Patient Home Medication List Home Medication List Reviewed: Yes Amitriptyline HCl (Amitriptyline HCl) 10 Mg Tablet, 10 MG PO, (Reported) Entered as Reported by: MI FALLON on 08/05/20 1601 Aspirin (Aspirin EC) 81 Mg Tablet.dr, 81 MG PO DAILY, (Reported) Entered as Reported by: JULIAN MARTINEZ on 10/24/18 1352 Celecoxib (Celebrex) 200 Mg Capsule, 200 MG PO HS, (Reported) Entered as Reported by: MI FALLON on 08/05/20 1558 Cyclobenzaprine HCl (Cyclobenzaprine HCl) 10 Mg Tablet, 10 MG PO Q8H PRN for SPASMS Prescribed by: MATT ZIEGLER on 11/01/20 1450 Gabapentin (Gabapentin) 300 Mg Capsule, 900 MG PO HS, (Reported) Entered as Reported by: JULIAN MARTINEZ on 10/24/18 1256 Hydrocodone/Acetaminophen (Hydrocodone-Acetamin 7.5-325) 1 Each Tablet, 1 EACH PO BID, (Reported) Entered as Reported by: MI FALLON on 08/05/20 1559 Hydrocodone/Acetaminophen (Hydrocodone-Acetamin 7.5-325) 1 Each Tablet, 1 EACH PO Q6H Prescribed by: MATT ZIEGLER on 11/01/20 1452 Insulin Aspart (Novolog Flexpen) 300 Units/3 Ml Solution, 0 SQ UD Prescribed by: RICK SAMPSON on 12/08/18 1914 Insulin Determir (Levemir) 1,000 Units/10 Ml Soln, 10 UNITS SQ DAILY, (Reported) Entered as Reported by: MI FALLON on 08/05/20 1600 Liraglutide (Victoza 3-Jn) 0.6 Mg/0.1 Ml Pen.injctr, 1.8 MG SC DAILY, (Reported) Entered as Reported by: JULIAN MARTINEZ on 10/24/18 1256 Lovastatin (Lovastatin) 20 Mg Tablet, 20 MG PO HS, (Reported) Entered as Reported by: DINH FISHER on 09/19/17 1030 Nitrofurantoin Macrocrystal (Nitrofurantoin) 100 Mg Capsule, 100 MG PO BID Prescribed by: MATT ZIEGLER on 11/01/20 1450 Review of Systems Review of Systems Constitutional: see HPI Eyes: No Symptoms Reported Ears, Nose, Mouth, Throat: no symptoms reported Respiratory: no symptoms reported Cardiovascular: no symptoms reported Genitourinary: no symptoms reported Musculoskeletal: no symptoms reported Skin: no symptoms reported Psychiatric/Neurological: No Symptoms Reported Past Ieiyadq-Krxozs-Whzjvq Hx Immunizations Up To Date Second COVID19 Vaccination Hernando: MODERNA UNKNOWN DATE Past Medical History Surgeries: Yes (GASTRIC BYPASS, BACK SX X 2) Abdominal, Appendectomy, Gallbladder, Hysterectomy, Orthopedic Respiratory: No Cardiac: Yes High Cholesterol, Hypertension Neurological: Yes Neuropathy Reproductive Disorders: No 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 0.6oz. 84.462060xh; 33.00 BMI Method:Stated General Appearance: WD/WN, no apparent distress HEENT: PERRL/EOMI, normal ENT inspection Respiratory: no respiratory distress, no accessory muscle use Cardiovascular: regular rate, rhythm, no murmur, other (EKG shows sinus rhythm rate of 98, no ST segment changes or ectopy) Gastrointestinal: normal bowel sounds, non tender, soft Extremities: non-tender, other (Limited range of motion of the left elbow secondary to a left elbow fracture that she reports she has that is not healing) Neurologic/Psychiatric: alert, normal mood/affect, oriented x 3 Crainal Nerves: normal hearing, normal speech, PERRL Skin: normal color, warm/dry Stroke Onset of Symptoms Date of Onset of Symptoms: Nov 08, 2020 Symptoms onset unknown: Yes NIH Stroke Scale Assessment Select: Initial Level of Consciousness: 0=Alert (0), Level of Consciousness- Questions: 0=Answers both month/age (0), LOC Commands: 0=Performs both tasks (0), Gaze: Normal (0), Visual Banerjee: 0=No visual loss (0), Facial Movement (Facial Paresis): 0=Normal symmetrical mnt (0), Motor Function-Arms Right: 0=No drift (0), Motor Function-Arms Left: 0=No drift (0), Motor Function-Legs Right: 0=No drift (0), Motor Function-Legs Left: 0=No drift (0), Limb Ataxia: 0=Absent (0), Sensory: 0=Normal:no loss (0), Best Language: 0=No aphasia (0), Dysarthria: 0=Normal (0), Extinction & Inattention: 0=No abnormality (0), Total: 0 Stroke Thrombolytic Exclusion Age 18 or Over: Yes Progress/Results/Core Measures Results/Orders Lab Results Laboratory Tests Test 11/08/20 11:10 11/08/20 12:52 Range/Units White Blood Count 13.2 H 4.3-11.0 10^3/uL Red Blood Count 4.81 3.80-5.11 10^6/uL Hemoglobin 12.7 11.5-16.0 g/dL Hematocrit 41 35-52 % Mean Corpuscular Volume 84 80-99 fL Mean Corpuscular Hemoglobin 26 25-34 pg Mean Corpuscular Hemoglobin Concent 31 L 32-36 g/dL Red Cell Distribution Width 14.1 10.0-14.5 % Platelet Count 310 130-400 10^3/uL Mean Platelet Volume 9.6 9.0-12.2 fL Immature Granulocyte % (Auto) 2 % Neutrophils (%) (Auto) 75 42-75 % Lymphocytes (%) (Auto) 14 12-44 % Monocytes (%) (Auto) 5 0-12 % Eosinophils (%) (Auto) 3 0-10 % Basophils (%) (Auto) 1 0-10 % Neutrophils # (Auto) 10.0 H 1.8-7.8 10^3/uL Lymphocytes # (Auto) 1.9 1.0-4.0 10^3/uL Monocytes # (Auto) 0.7 0.0-1.0 10^3/uL Eosinophils # (Auto) 0.4 H 0.0-0.3 10^3/uL Basophils # (Auto) 0.1 0.0-0.1 10^3/uL Immature Granulocyte # (Auto) 0.3 H 0.0-0.1 10^3/uL Prothrombin Time 13.5 12.2-14.7 SEC INR Comment 1.0 0.8-1.4 Activated Partial Thromboplast Time 35 24-35 SEC D-Dimer 6.15 H 0.00-0.49 UG/ML Sodium Level 134 L 135-145 MMOL/L Potassium Level 4.9 3.6-5.0 MMOL/L Chloride Level 98 98-107 MMOL/L Carbon Dioxide Level 24 21-32 MMOL/L Anion Gap 12 5-14 MMOL/L Blood Urea Nitrogen 26 H 7-18 MG/DL Creatinine 2.02 H 0.60-1.30 MG/DL Estimat Glomerular Filtration Rate 25 BUN/Creatinine Ratio 13 Glucose Level 169 H 70-105 MG/DL Glucometer 168 H 70-110 MG/DL Calcium Level 9.8 8.5-10.1 MG/DL Corrected Calcium 10.0 8.5-10.1 MG/DL Total Bilirubin 0.4 0.1-1.0 MG/DL Aspartate Amino Transf (AST/SGOT) 19 5-34 U/L Alanine Aminotransferase (ALT/SGPT) 10 0-55 U/L Alkaline Phosphatase 108 40-136 U/L Troponin I < 0.028 <0.028 NG/ML Total Protein 8.0 6.4-8.2 GM/DL Albumin 3.8 3.2-4.5 GM/DL Urine Color YELLOW Urine Clarity CLEAR Urine pH 6.0 5-9 Urine Specific Pierce 1.020 1.016-1.022 Urine Protein NEGATIVE NEGATIVE Urine Glucose (UA) 2+ H NEGATIVE Urine Ketones NEGATIVE NEGATIVE Urine Nitrite NEGATIVE NEGATIVE Urine Bilirubin NEGATIVE NEGATIVE Urine Urobilinogen 0.2 < = 1.0 MG/DL Urine Leukocyte Esterase 2+ H NEGATIVE Urine RBC (Auto) 3+ H NEGATIVE Urine RBC 25-50 H /HPF Urine WBC >100 H /HPF Urine Squamous Epithelial Cells 2-5 /HPF Urine Crystals NONE /LPF Urine Bacteria TRACE /HPF Urine Casts NONE /LPF Urine Mucus NEGATIVE /LPF Urine Culture Indicated YES My Orders Orders - RICK SAMPSON APRN Accucheck Stat ONCE (11/08/20 10:59) Cbc With Automated Diff (11/08/20 11:14) Protime With Inr (11/08/20 11:14) Partial Thromboplastin Time (11/08/20 11:14) Comprehensive Metabolic Panel (11/08/20 11:14) Fibrin Degradation Products (11/08/20 11:14) Troponin I (11/08/20 11:14) Ua Culture If Indicated (11/08/20 11:14) Chest 1 View, Ap/Pa Only (11/08/20 11:14) Ekg Tracing (11/08/20 11:14) Accucheck Stat ONCE (11/08/20 11:14) Ed Iv/Invasive Line Start (11/08/20 11:14) Ed Iv/Invasive Line Start (11/08/20 11:14) Vital Signs Stroke Patient Q15M (11/08/20 11:14) Ct Head Wo-R/O Stroke (11/08/20 11:14) O2 (11/08/20 11:14) Intake & Output 06,14,22 (9/7/21 11:14) Monitor-Rhythm Ecg Trace Only (11/08/20 11:14) Dysphagia Screening Tool (11/08/20 11:14) Post Thrombolytic Adminstratio (11/08/20 11:14) Lipid Panel (11/09/20 06:00) Lactated Ringers (Lr 1000 Ml Iv Solution (11/08/20 11:45) Fentanyl Inj (Sublimaze Injection) (11/08/20 13:00) Mri Brain W/O Contrast (11/08/20 12:57) Us Venous Lower Ext Fredy (11/08/20 12:57) Urine Culture (11/08/20 12:52) Ceftriaxone (Rocephin) (11/08/20 13:30) Medications Given in ED Current Medications Medications Dose Ordered Sig/Edwar Route Start Time Stop Time Status Last Admin Dose Admin Fentanyl Citrate 50 mcg ONCE ONCE IVP 11/08/20 13:00 11/08/20 13:01 DC 11/08/20 13:01 50 MCG Vital Signs/I&O 11/08/20 11:03 Temp 36.8 Pulse 94 Resp 20 B/P (MAP) 125/51 (75) Pulse Ox 94 O2 Delivery Room Air Departure Impression Primary Impression: Dizziness Additional Impressions: Weakness UTI (urinary tract infection) Disposition: HOME, SELF-CARE Condition: Stable Departure-Patient Inst. Decision time for Depature: 14:10 [address]errals: [facility] (PCP) Primary Care Physician CATRACHITA MOLINA (Family) Primary Care Physician Patient Instructions: Urinary Tract Infection, Adult (DC), Weakness ED Scripts Cefuroxime Axetil (Cefuroxime) 250 Mg Tablet 250 MG PO BID, #10 TAB Prov: RICK SAMPSON APRN 11/08/20 Copy Copies To 1: LUCAS WOODS PETER J APRN Nov 08, 2020 11:18
[2020-11-08 11:26] LABS: BASOPHILS # (AUTO) 0.1 10^3/uL (0.0-0.1); BASOPHILS % (AUTO) 1 % (0-10); EOSINOPHILS # (AUTO) 0.4 10^3/uL (0.0-0.3); EOSINOPHILS % (AUTO) 3 % (0-10); HEMATOCRIT 41 % (35-52); HEMOGLOBIN 12.7 g/dL (11.5-16.0); LYMPHOCYTES # (AUTO) 1.9 10^3/uL (1.0-4.0); LYMPHOCYTES % (AUTO) 14 % (12-44); MEAN CORPUSCULAR HEMOGLOBIN 26 pg (25-34); MEAN CORPUSCULAR HGB CONC 31 g/dL (32-36); MEAN CORPUSCULAR VOLUME 84 fL (80-99); MEAN PLATELET VOLUME 9.6 fL (9.0-12.2); MONOCYTES # (AUTO) 0.7 10^3/uL (0.0-1.0); MONOCYTES % (AUTO) 5 % (0-12); NEUTROPHILS % (AUTO) 75 % (42-75); PLATELET COUNT 310 10^3/uL (130-400); WHITE BLOOD COUNT 13.2 10^3/uL (4.3-11.0)
[2020-11-08 11:30] LABS: ALBUMIN 3.8 GM/DL (3.2-4.5)
[2020-11-08 11:31] LABS: CHLORIDE 98 MMOL/L (98-107); POTASSIUM 4.9 MMOL/L (3.6-5.0); SODIUM 134 MMOL/L (135-145)
[2020-11-08 11:32] LABS: CALCIUM 9.8 MG/DL (8.5-10.1)
[2020-11-08 11:33] LABS: GLUCOSE 169 MG/DL (70-105)
[2020-11-08 11:34] LABS: CARBON DIOXIDE 24 MMOL/L (21-32)
[2020-11-08 11:35] LABS: BILIRUBIN,TOTAL 0.4 MG/DL (0.1-1.0)
[2020-11-08 11:36] LABS: ALKALINE PHOSPHATASE 108 U/L (40-136)
[2020-11-08 11:37] LABS: CREATININE SERUM 2.02 MG/DL (0.60-1.30); GFR ESTIMATED 25
[2020-11-08 11:38] LABS: BUN/CREATININE RATIO 13
[2020-11-08 11:39] LABS: ALANINE AMINOTRANSFERASE 10 U/L (0-55)
[2020-11-08 11:43] LABS: FIBRIN DEGRADATION PRODUCTS 6.15 UG/ML (0.00-0.49); PROTHROMBIN TIME PATIENT 13.5 SEC (12.2-14.7)
[2020-11-08] MEDS ORDERED: LACTATED RINGERS 1,000 ML IV SCH (11:45)
--- NOTE | 2020-11-08 12:08 | Diagnostic Imaging Report ---
INDICATION: Back pain, fall, dizziness, chest pain. COMPARISON: August 05, 2020. TECHNIQUE: Single radiograph of the chest dated November 08, 2020. FINDINGS: The cardiac silhouette is stable. No significant pulmonary vascular congestion. Low lung volumes without focal pulmonary opacity. No significant pleural effusion. No pneumothorax. Surgical clips overlying the upper abdomen, particularly on the left. No acute osseous abnormality. IMPRESSION: Low lung volumes. Additional stable chronic and postsurgical changes, as above. Dictated by: Dictated on workstation # [id number]
--- NOTE | 2020-11-08 12:09 | Diagnostic Imaging Report ---
EXAMINATION: CT head without contrast. TECHNIQUE: Multiple contiguous axial images were obtained through the brain without the use of intravenous contrast. All CT scans use one or more of the following dose optimizing techniques: automated exposure control, MA and/or KvP adjustment based on patient size and exam type or iterative reconstruction. HISTORY: Concern for stroke. Difficulty speaking. Dizziness. COMPARISON: 08/05/2020. FINDINGS: No large acute territorial ischemia, mass, or hemorrhage. No midline shift or mass effect. The ventricles, cortical sulci, and basilar cisterns are patent and unremarkable. The orbits are normal. Paranasal sinuses are normal. Mastoid air cells are clear. No soft tissue abnormality is seen. No osseus lesions or fractures are seen. IMPRESSION: 1. No large acute territorial ischemia, mass, or hemorrhage. Dictated by: Dictated on workstation # [id number]
[2020-11-08] MEDS ORDERED: fentaNYL INJ 100 MCG/2 ML AMP IVP ONE (13:00)
[2020-11-08 13:03] LABS: BILIRUBIN,URINE NEGATIVE (NEGATIVE); CLARITY,URINE CLEAR; COLOR,URINE YELLOW; GLUCOSE, URINE (UA) 2+ (NEGATIVE); KETONES,URINE NEGATIVE (NEGATIVE); LEUKOCYTE ESTERASE ,URINE 2+ (NEGATIVE); NITRITE,URINE NEGATIVE (NEGATIVE); PROTEIN,URINE NEGATIVE (NEGATIVE)
[2020-11-08 13:14] LABS: RBC,URINE 25-50 /HPF; WBC,URINE >100 /HPF
[2020-11-08 13:15] LABS: BACTERIA,URINE TRACE /HPF
[2020-11-08] MEDS ORDERED: cefTRIAXone 1,000 MG in WATER (STERILE) FOR INJECTION 10 ML IV ONE (13:30)
--- NOTE | 2020-11-08 13:43 | Diagnostic Imaging Report ---
PROCEDURE: US Venous Lower Ext Fredy. TECHNIQUE: Multiple real-time grayscale images were obtained over the lower extremities in various projections, bilaterally. Additional duplex Doppler and color Doppler images were also obtained. INDICATION: Elevated D-dimer with dizziness. FINDINGS: There is no evidence of right or left lower extremity DVT. Both lower extremity deep venous systems show normal compressibility with normal response to augmentation and Valsalva. No fluid collection or mass is detected. IMPRESSION: No evidence of right or left lower extremity DVT. Dictated by: Dictated on workstation # [id number]
--- NOTE | 2020-11-08 14:08 | Diagnostic Imaging Report ---
PROCEDURE: MR imaging of the brain without contrast. TECHNIQUE: Multiplanar, multisequence MR imaging of the brain was performed without contrast. INDICATION: Dizziness. Fall. Weakness. Slurred speech. COMPARISON: CT head without contrast 11/08/2020. FINDINGS: Examination limited by motion. Gwca-ou-szbkwwij generalized parenchymal volume loss. Mild nonspecific T2 hyperintensities in the supratentorial white matter. No restricted water diffusion. No hemosiderin deposition or evidence of intracranial hemorrhage. Normal morphology including the major midline structures, sella, posterior fossa, and cerebellopontine angle. Normal intracranial flow voids. No hydrocephalus or extra-axial fluid collections. Postoperative changes in the globes. Paranasal sinuses and mastoids are clear. Normal bone marrow signal. IMPRESSION: Age-appropriate MRI of the brain. No evidence of acute infarction or hemorrhage. The exam is mildly limited by motion. Dictated by: Dictated on workstation # [id number]
[2020-11-08] MEDS ORDERED: CEFU250T80 PO (14:12)
[2020-11-08 14:26] VITALS: BP 139/91
[2020-11-09] MEDS ORDERED: INSU100I14 SQ (14:48)
[2020-11-09] MEDS ORDERED: LOSA50TA63 PO (14:48)
[2020-11-09] MEDS ORDERED: GABA300C PO (14:48)
[2020-11-09] MEDS ORDERED: INSU200I4 SQ (14:48)
[2020-11-09] MEDS ORDERED: CYCL10TA9 PO (14:48)
[2020-11-09] MEDS ORDERED: AMIT100T2 PO (14:48)
[2020-11-09] MEDS ORDERED: NITR100C PO (14:48)
[2020-11-09] MEDS ORDERED: MECL-149 PO (14:48)
[2020-11-09] MEDS ORDERED: CALC600T91 PO (14:48)
[2020-11-09] MEDS ORDERED: FAMO20TA5 PO (14:51)
== END 2020-11-08 14:34 | disposition home or self-care (01) ==
LOC: EDUNIT# 10:57 → ER 10:58
DX: R42 Dizziness and giddiness (principal); R53.1 Weakness; N39.0 Urinary tract infection, site not specified; I10 Essential (primary) hypertension; E78.00 Pure hypercholesterolemia, unspecified; G89.29 Other chronic pain; M54.9 Dorsalgia, unspecified; E11.9 Type 2 diabetes mellitus without complications; F41.9 Anxiety disorder, unspecified; F32.9 Major depressive disorder, single episode, unspecified; Z79.899 Other long term (current) drug therapy; Z79.891 Long term (current) use of opiate analgesic; Z79.4 Long term (current) use of insulin; Z79.82 Long term (current) use of aspirin
CPT/HCPCS: 36415; 70450; 70551; 71045; 80053; 81000; 82947; 84484; 85025; 85379; 85610; 85730; 87088; 93005; 93041; 93970

== ENCOUNTER 2020-11-09 10:17 | Inpatient (IN) | payer MEDICARE ==
[~2020-11-09] VITALS: Ht 162 cm; Wt 87.0 kg
--- NOTE | 2020-11-09 10:48 | ED General ---
General Stated Complaint: WEAKNESS,DIFFICULTY WALKING Source of Information: Patient Exam Limitations: No Limitations History of Present Illness Date Seen by Provider: Nov 09, 2020 Time Seen by Provider: 10:47 Initial Comments To ER with reports of general weakness difficulty walking. Was seen here yesterday for the same diagnosed with UTI. Labs were unremarkable as well as MRI of the brain. She presents to ER with failure to improve and would like rehab. Timing/Duration: 2-3 Days Severity: Moderate Associated Systoms: Denies Symptoms Allergies and Home Medications Allergies Coded Allergies: No Known Drug Allergies (Unverified , 01/23/20) Patient Home Medication List Home Medication List Reviewed: Yes Amitriptyline HCl (Amitriptyline HCl) 10 Mg Tablet, 10 MG PO, (Reported) Entered as Reported by: MI FALLON on 08/05/20 1601 Aspirin (Aspirin EC) 81 Mg Tablet.dr, 81 MG PO DAILY, (Reported) Entered as Reported by: JULIAN MARTINEZ on 10/24/18 1352 Cefuroxime Axetil (Cefuroxime) 250 Mg Tablet, 250 MG PO BID Prescribed by: RICK SAMPSON on 11/08/20 1412 Celecoxib (Celebrex) 200 Mg Capsule, 200 MG PO HS, (Reported) Entered as Reported by: MI FALLON on 08/05/20 1558 Cyclobenzaprine HCl (Cyclobenzaprine HCl) 10 Mg Tablet, 10 MG PO Q8H PRN for SPASMS Prescribed by: MATT ZIEGLER on 11/01/20 1450 Gabapentin (Gabapentin) 300 Mg Capsule, 900 MG PO HS, (Reported) Entered as Reported by: JULIAN MARTINEZ on 10/24/18 1256 Hydrocodone/Acetaminophen (Hydrocodone-Acetamin 7.5-325) 1 Each Tablet, 1 EACH PO BID, (Reported) Entered as Reported by: MI FALLON on 08/05/20 1559 Hydrocodone/Acetaminophen (Hydrocodone-Acetamin 7.5-325) 1 Each Tablet, 1 EACH PO Q6H Prescribed by: MATT ZIEGLER on 11/01/20 1452 Insulin Aspart (Novolog Flexpen) 300 Units/3 Ml Solution, 0 SQ UD Prescribed by: RICK SAMPSON on 12/08/18 1914 Insulin Determir (Levemir) 1,000 Units/10 Ml Soln, 10 UNITS SQ DAILY, (Reported) Entered as Reported by: MI FALLON on 08/05/20 1600 Liraglutide (Victoza 3-Jn) 0.6 Mg/0.1 Ml Pen.injctr, 1.8 MG SC DAILY, (Reported) Entered as Reported by: JULIAN MARTINEZ on 10/24/18 1256 Lovastatin (Lovastatin) 20 Mg Tablet, 20 MG PO HS, (Reported) Entered as Reported by: DINH FISHER on 09/19/17 1030 Nitrofurantoin Macrocrystal (Nitrofurantoin) 100 Mg Capsule, 100 MG PO BID Prescribed by: MATT ZIEGLER on 11/01/20 1450 Review of Systems Review of Systems Constitutional: see HPI, weakness EENTM: see HPI Respiratory: no symptoms reported Cardiovascular: no symptoms reported Genitourinary: no symptoms reported Musculoskeletal: no symptoms reported Skin: no symptoms reported Psychiatric/Neurological: No Symptoms Reported Hematologic/Lymphatic: No Symptoms Reported Immunological/Allergic: no symptoms reported Past Kvcuimg-Ckujik-Hjfuqy Hx Immunizations Up To Date First/Initial COVID19 Vaccinat: May 10 2020 Second COVID19 Vaccination Hernando: June 11 2020 Past Medical History Surgeries: Yes (GASTRIC BYPASS, BACK SX X 2) Abdominal, Appendectomy, Gallbladder, Hysterectomy, Orthopedic Respiratory: No Cardiac: Yes High Cholesterol, Hypertension Neurological: Yes Neuropathy 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 0.6oz. 84.849757ca; 33.00 BMI Method:Stated General Appearance: No Apparent Distress, WD/WN Eyes: Bilateral Eye Normal Inspection, Bilateral Eye PERRL, Bilateral Eye EOMI Respiratory: No Accessory Muscle Use, No Respiratory Distress Cardiovascular: Regular Rate, Rhythm, Normal Peripheral Pulses Gastrointestinal: Non Tender, Soft Extremity: Normal Capillary Refill, Normal Inspection Neurologic/Psychiatric: Alert, Oriented x3 Skin: Normal Color, Warm/Dry Progress/Results/Core Measures Suspected Sepsis SIRS Temperature: Pulse: Respiratory Rate: Laboratory Tests 11/09/20 12:00: White Blood Count 9.4 Blood Pressure / Mean: Laboratory Tests 11/09/20 12:00: Creatinine 1.36H, Platelet Count 243 Results/Orders Lab Results Laboratory Tests Test 11/09/20 12:00 Range/Units White Blood Count 9.4 4.3-11.0 10^3/uL Red Blood Count 4.68 3.80-5.11 10^6/uL Hemoglobin 12.5 11.5-16.0 g/dL Hematocrit 40 35-52 % Mean Corpuscular Volume 86 80-99 fL Mean Corpuscular Hemoglobin 27 25-34 pg Mean Corpuscular Hemoglobin Concent 31 L 32-36 g/dL Red Cell Distribution Width 14.1 10.0-14.5 % Platelet Count 243 130-400 10^3/uL Mean Platelet Volume 9.8 9.0-12.2 fL Immature Granulocyte % (Auto) 0 % Neutrophils (%) (Auto) 76 H 42-75 % Lymphocytes (%) (Auto) 15 12-44 % Monocytes (%) (Auto) 5 0-12 % Eosinophils (%) (Auto) 3 0-10 % Basophils (%) (Auto) 1 0-10 % Neutrophils # (Auto) 7.2 1.8-7.8 10^3/uL Lymphocytes # (Auto) 1.4 1.0-4.0 10^3/uL Monocytes # (Auto) 0.4 0.0-1.0 10^3/uL Eosinophils # (Auto) 0.3 0.0-0.3 10^3/uL Basophils # (Auto) 0.1 0.0-0.1 10^3/uL Immature Granulocyte # (Auto) 0.0 0.0-0.1 10^3/uL Sodium Level 134 L 135-145 MMOL/L Potassium Level 4.5 3.6-5.0 MMOL/L Chloride Level 100 98-107 MMOL/L Carbon Dioxide Level 25 21-32 MMOL/L Anion Gap 9 5-14 MMOL/L Blood Urea Nitrogen 23 H 7-18 MG/DL Creatinine 1.36 H 0.60-1.30 MG/DL Estimat Glomerular Filtration Rate 39 BUN/Creatinine Ratio 17 Glucose Level 120 H 70-105 MG/DL Calcium Level 9.8 8.5-10.1 MG/DL SARS-CoV-2 RNA (RT-PCR) Not Detected Not Detecte My Orders Orders - RICK SAMPSON APRN Cbc With Automated Diff (11/09/20 10:45) Basic Metabolic Panel (11/09/20 10:45) Ed Iv/Invasive Line Start (11/09/20 10:45) Covid 19 Inhouse Test (11/09/20 11:09) Ua Culture If Indicated (11/09/20 11:10) Vital Signs/I&O 11/09/20 10:20 Temp 35.7 Pulse 82 Resp 18 B/P (MAP) 172/92 (118) Pulse Ox 93 O2 Delivery Room Air Capillary Refill : Departure Impression Primary Impression: UTI (urinary tract infection) Additional Impression: Weakness Disposition: ADMITTED INPATIENT Condition: Stable Admissions Decision to Admit Reason: Admit from ER (General) Decision to Admit/Date: Nov 09, 2020 Time/Decision to Admit Time: 12:43 Departure-Patient Inst. Referrals: [facility] (PCP) Primary Care Physician CATRACHITA MOLINA (Family) Primary Care Physician RICK SAMPSON APRN Nov 09, 2020 10:48
[2020-11-09 12:18] LABS: BASOPHILS # (AUTO) 0.1 10^3/uL (0.0-0.1); BASOPHILS % (AUTO) 1 % (0-10); EOSINOPHILS # (AUTO) 0.3 10^3/uL (0.0-0.3); EOSINOPHILS % (AUTO) 3 % (0-10); HEMATOCRIT 40 % (35-52); HEMOGLOBIN 12.5 g/dL (11.5-16.0); LYMPHOCYTES # (AUTO) 1.4 10^3/uL (1.0-4.0); LYMPHOCYTES % (AUTO) 15 % (12-44); MEAN CORPUSCULAR HEMOGLOBIN 27 pg (25-34); MEAN CORPUSCULAR HGB CONC 31 g/dL (32-36); MEAN CORPUSCULAR VOLUME 86 fL (80-99); MEAN PLATELET VOLUME 9.8 fL (9.0-12.2); MONOCYTES # (AUTO) 0.4 10^3/uL (0.0-1.0); MONOCYTES % (AUTO) 5 % (0-12); NEUTROPHILS # (AUTO) 7.2 10^3/uL (1.8-7.8); NEUTROPHILS % (AUTO) 76 % (42-75); PLATELET COUNT 243 10^3/uL (130-400); WHITE BLOOD COUNT 9.4 10^3/uL (4.3-11.0)
[2020-11-09 12:31] LABS: POTASSIUM 4.5 MMOL/L (3.6-5.0)
[2020-11-09 12:32] LABS: CALCIUM 9.8 MG/DL (8.5-10.1)
[2020-11-09 12:36] LABS: CREATININE SERUM 1.36 MG/DL (0.60-1.30)
[2020-11-09 12:56] VITALS: BP 204/104
[2020-11-09] MEDS ORDERED: ENOXAPARIN 40 MG/0.4 ML (LOVENOX) SYR SC SCH (13:30)
[2020-11-09] MEDS ORDERED: cefTRIAXone 1,000 MG/SWFI 10 ML IV PUSH IV SCH ×2 (13:30)
--- NOTE | 2020-11-09 14:01 | Occupational Therapy Eval ---
OT Evaluation-General/PLF Medical Diagnosis Admission Date Nov 09, 2020 at 10:46 Medical Diagnosis: UTI, general weakness Onset Date: Nov 09, 2020 Therapy Diagnosis Therapy Diagnosis: Impaired ADLs, IADLS, balance, safety, endurance, UE strength/ROM Height/Weight Height (Feet): 5 Height (Inches): 5.00 Weight (Pounds): 187 Weight (Ounces): 0.6 Precautions Precautions/Isolations: Fall Prevention, Standard Precautions Weight Bear Status Weight Bearing Restriction: Weight Bearing/Tolerated Location Restriction: LE Bilateral Referral Physician: Pardeep Referral Reason: Evaluation/Treatment Medical History Pertinent Medical History: Fractures Additional Medical History UTI, DAQUAN, T12 compression fx (10/31/20), Elbow fx (~3 weeks ago) Current History Pt presents to ED with increasing weakness and difficulty walking. She reports living in a single level home with spouse. She was indep with ADLs and shares IADL responsibilities with spouse and daughter. Her daughter reports several falls within the last year with recent falls causing fractures. Per patient, she has a T12 fracture (10/31/20) and a L elbow fracture from ~3 weeks prior. She owns a walker, cane and wheelchair but verbalizes only using the walker when she is out in the community. She has a built in shower seat in walk in shower. Reviewed History: Yes Social History Home: Single Level Current Living Status: Spouse Entry Into Home: Ramp, Stairs With Railing Steps Into Home: 3 Family reports that a ramp is being built for home entry. ADL-Prior Level of Function SCALE: Activities may be completed with or without assistive devices. 6-Yergzuapqv-mwkpszp completes the activity by him/herself with no assistance from a helper. 5-Set-up or Clean-up Assistance-helper sets up or cleans up; patient completes activity. [place] assists only prior to or following the activity. 4-Supervision or Touching Assistance-helper provides verbal cues and/or touching/steadying and/or contact guard assistance as patient completes activity. Assistance may be provided throughout the activity or intermittently. 3-Partial/Moderate Assistance-helper does LESS THAN HALF the effort. [place] lifts, holds or supports trunk or limbs, but provides less than half the effort. 2-Substantial/Maximal Assistance-helper does MORE THAN HALF the effort. [place] lifts or holds trunk or limbs and provides more than half the effort. 9-Tiujgnqoo-jhemfd does ALL the effort. Patient does none of the effort to complete the activity. Or, the assistance of 2 or more helpers is required for the patient to complete the activity. If activity was not attempted, code reason: 7-Patient Refused. 9-Not Applicable-not attempted and the patient did not perform the activity before the current illness, exacerbation or injury. 10-Not Attempted due to Environmental Limitations-(lack of equipment, weather restraints, etc.). 88-Not Attempted due to Medical Conditions or Safety Concerns. DME/Equipment: Shower OT Current Status Subjective Pt reports just transferring to med floor for ER. She reports pain in back, RN informed. Appearance Pt left supine in bed, all needs within reach, family in room. RN informed. Mental Status/Objective Patient Orientation: Person, Place, Situation Current Hearing Aids: No Hand Dominance: Right Upper Extremity ROM R shoulder flex: 3/4 AROM, elbow-distally WFL. L shoulder flex: 1/2 AROM, Elbow: limited secondary to recent fracture and pain. Pt reports she was wearing a sling until last week. No specific precautions/ROM protocols noted in chart at this time. L wrist/digits: WFL Upper Extremity Strength Strength not tested secondary to back pain and recent elbow fx ADL-Treatment Lower Body Dressing (QC): 2 On/Off Footwear (QC): 1 Pt supine in bed at OT arrival. Agreeable to eval. nursing in room, reports BP: 208/104, mild c/o dizziness. Pt able to sit EOB with SBA, extra time. Cu es/education on log roll technique. While sitting, pt demonstrates poor hip flexibility. Dep to don/doff gisele socks. Pt would benefit from education on use of AE for LB dressing and for safety/care of back. Sit<>stand with Min A, cues for correct hand placement. Requires steadying assist when managing clothing over hips with zero UE support. Pt took 2-3 steps to HOB, unsteady; Min A. She returned to supine, all needs within reach. Education OT Patient Education: Correct positioning, Energy conservation, Modified ADL techniques, Progress toward Goal/Update tx plan, Purpose of tx/functional activities, Reviewed precautions, Safety issues, Transfer techniques Teaching Recipient: Patient, Family Teaching Methods: Discussion Response to Teaching: Verbalize Understanding, Return Demonstration, Reinforcement Needed OT Order Schedule Clerk Goals Order Schedule Clerk Goals Oral Hygiene (QC): 4 Toileting Hygiene (QC): 4 Shower/Bathe Self (QC): 4 Upper Body Dressing (QC): 4 Lower Body Dressing (QC): 4 (with use of AE PRN, proper body mechanics) On/Off Footwear (QC): 4 (with use of AE PRN) 1=Demonstrate adherence to instructed precautions during ADL tasks. 2=Patient will verbalize/demonstrate understanding of assistive devices/modifications for ADL. 3=Patient will improve strength/tolerance for activity to enable patient to perform ADL's. OT Education/Plan Problem List/Assessment Assessment: Decreased Activ Tolerance, Decreased Safety Aware, Decreased UE Strength, Impaired Funct Balance, Impaired I ADL's, Impaired Self-Care Skills, Restricted Funct UE ROM Discharge Recommendations Plan/Recommendations: Continue POC Therapy Discharge Recommendati: Homemaker Support, Home & Family, Post Acute OT Comment Continue to assess. Treatment Plan/Plan of Care Treatment,Training & Education: Yes Patient would benefit from OT for education, treatment and training to promote independence in ADL's, mobility, safety and/or upper extremity function for ADL's. Plan of Care: ADL Retraining, Functional Mobility, Group Exercise/Act as Ind, UE Funct Exercise/Act Treatment Duration: Nov 21, 2020 Frequency: 5 times per week Estimated Hrs Per Day: .25 hour per day Agreement: Yes Rehab Potential: Fair Time/GCodes Start Time: 13:23 Stop Time: 13:46 Total Time Billed (hr/min): 23 Billed Treatment Time 1, EVL (10 min), ADL (13 min) Nenita Reyna OT Nov 09, 2020 14:01
[2020-11-09 14:14] VITALS: BP_SYST 131; BP_SYST 186; BP_SYST 218; BP_DIAS 77; BP_DIAS 95; BP_DIAS 98
[2020-11-09] MEDS: LACTATED RINGERS 1,000 ML IV SCH ×2 (14:17→22:04)
--- NOTE | 2020-11-09 14:25 | Physical Therapy Evaluation ---
PT Evaluation-General Medical Diagnosis Admission Date Nov 09, 2020 at 10:46 Medical Diagnosis: Falls Onset Date: Nov 09, 2020 Therapy Diagnosis Therapy Diagnosis: Gait deficit, strength deficit Height/Weight Height (Feet): 5 Height (Inches): 5.00 Weight (Pounds): 187 Weight (Ounces): 0.6 Precautions Precautions/Isolations: Fall Prevention, Standard Precautions Weight Bear Status Right Lower Extremity: Right Weight Bearing/Tolerated Left Lower Extremity: Left Weight Bearing/Tolerated Referral Physician: Pardeep Reason for Referral: Evaluation/Treatment, Gait Medical History Pertinent Medical History: Fractures, HTN, Neuropathy Reviewed History: Yes Social History Home: Single Level Current Living Status: Spouse Entry Into Home: Ramp, Stairs With Railing PT Steps Into Home: 3 PT Steps Inside Home: 0 Prior Prior Level of Function SCALE: Activities may be completed with or without assistive devices. 0-Elwlzbvoka-bnpuusg completes the activity by him/herself with no assistance from a helper. 5-Set-up or Clean-up Assistance-helper sets up or cleans up; patient completes activity. [place] assists only prior to or following the activity. 4-Supervision or Touching Assistance-helper provides verbal cues and/or touching/steadying and/or contact guard assistance as patient completes activity. Assistance may be provided throughout the activity or intermittently. 3-Partial/Moderate Assistance-helper does LESS THAN HALF the effort. [place] lifts, holds or supports trunk or limbs, but provides less than half the effort. 2-Substantial/Maximal Assistance-helper does MORE THAN HALF the effort. [place] lifts or holds trunk or limbs and provides more than half the effort. 5-Jrvckeqso-jjbkql does ALL the effort. Patient does none of the effort to complete the activity. Or, the assistance of 2 or more helpers is required for the patient to complete the activity. If activity was not attempted, code reason: 7-Patient Refused. 9-Not Applicable-not attempted and the patient did not perform the activity before the current illness, exacerbation or injury. 10-Not Attempted due to Environmental Limitations-(lack of equipment, weather restraints, etc.). 88-Not Attempted due to Medical Conditions or Safety Concerns. Bed Mobility: 6 Transfers (B,C,W/C): 6 Gait: 6 Stairs: 6 Wheelchair Mobility: 6 Indoor Mobility (Ambulation): Independent Stairs: Independent Prior Devices Use: Walker Prior Device Use: 4WW PT Evaluation-Current Subjective Patient reports she has fallen 10-20 times over the past month. States that when she falls "My legs just give out." Patients daughter states that she is diabetic and has been eating mainly cupcakes at home and feels this may be negatively impacting her blood sugar. Objective Patient Orientation: Person, Place, Time, Situation ROM/Strength ROM Lower Extremities WFLs all planes bilaterally Strength Lower Extremities 3/5 bilaterally all planes Neuromuscular (Tone, Coordination, Reflexes) Tone normal and intact, coordination intact. Sensory Hand Dominance: Right Transfers Roll Left to Right (QC): 4 Sit to Lying (QC): 4 Lying to Sitting/Side of Bed(Q: 4 Sit to Stand (QC): 3 Chair/Law-el-Nnyaq Xfer(QC): 3 Gait Does the Patient Walk?: Yes Mode of Locomotion: Walk Anticipated Mode of Locomotion: Walk Walk 10 feet (QC): 3 Walk 50 ft with 2 Turns(QC): 3 Walk 150 ft (QC): 88 Walking 10ft/uneven surface-QC: 88 Distance: 80 feet Gait Assistive Device: FWW Wheelchair Training Does the Pt Use a Wheelchair?: No Balance Sitting Static: Good Sitting Dynamic: Good Standing Static: Fair Standing Dynamic: Poor Assessment/Needs Patient lying supine in bed upon PT arrival with daughter and significant other in the room, all agreeable to treatment. Patient performs all bed mobility with SBA and all transfers with min A. Patient BPs were taken as follows: Supine 218/98, HR82, Sitting 186/95, HR 85, 1 minute later sitting 199/103, HR 87, Standing 131/77, HR 91. Nurse notified of these results and changes. Patient ambulates 80 feet with FWW, with min A and verbal cues for safety, progression, balance and conservation of energy. Patient ambulates with forward head posture, rounded shoulders, fatigues quickly and performs shortened stride length bilaterally. Patient in bed post treatment with all needs met, nursing notified, family in the room, call light in reach. Rehab Potential: Fair Post Rehab Potential-Barriers: Diet and willingness to adhere to dietary restrictions PT Short Term Goals Short Term Goals Time Frame: Nov 16, 2020 Roll Left & Right: 5 Sit to lyin Lying to sitting on side of be: 5 Sit to stand: 5 Chair/drk-qu-cyobq transfer: 5 Toilet transfer: 5 Walk 10 feet: 5 Walk 50 feet with two turns: 5 Walk 150 feet: 5 1 step (curb): 5 4 steps: 5 PT Booking Prizer Goals Booking Prizer Goals PT Usp Goals Time Frame: Nov 30, 2020 Roll Left & Right (QC): 6 Sit to Lying (QC): 6 Lying-Sitting on Side/Bed(QC): 6 Sit to Stand (QC): 6 Chair/Vee-ba-Toqzz Xfer(QC): 6 Toilet Transfer (QC): 6 Does the Patient Walk: Yes Walk 10 feet (QC): 6 Walk 50ft with 2 Turns (QC): 6 Walk 150 ft (QC): 6 1 Step (curb) (QC): 6 4 Steps (QC): 6 PT Plan Problem List Problem List: Activity Tolerance, Functional Strength, Safety, Balance, Gait, Transfer, Bed Mobility, ROM Treatment/Plan Treatment Plan: Continue Plan of Care Treatment Plan: Bed Mobility, Education, Functional Activity Remy, Functional Strength, Group Therapy, Gait, Safety, Therapeutic Exercise, Transfers Treatment Duration: Dec 28, 2020 Frequency: 6 times per week Estimated Hrs Per Day: .25 hour per day Patient and/or Family Agrees t: Yes Safety Risks/Education Patient Education: Gait Training, Transfer Techniques Teaching Recipient: Patient, Family Teaching Methods: Demonstration, Discussion Response to Teaching: Verbalize Understanding, Return Demonstration Time/GCodes Time In: 1358 Time Out: 1430 Total Billed Treatment Time: 32 Total Billed Treatment Visit, Shmuel Treadwell JOHN A PT Nov 09, 2020 14:25
[2020-11-09] MEDS ORDERED: GABA300C PO (14:48)
[2020-11-09] MEDS ORDERED: LOSA50TA63 PO (14:48)
[2020-11-09] MEDS ORDERED: NITR100C PO (14:48)
[2020-11-09] MEDS ORDERED: INSU200I4 SQ (14:48)
[2020-11-09] MEDS ORDERED: INSU100I14 SQ (14:48)
[2020-11-09] MEDS ORDERED: CYCL10TA9 PO (14:48)
[2020-11-09] MEDS ORDERED: MECL-149 PO (14:48)
[2020-11-09] MEDS ORDERED: AMIT100T2 PO (14:48)
[2020-11-09] MEDS ORDERED: CALC600T91 PO (14:48)
[2020-11-09] MEDS ORDERED: FAMO20TA5 PO (14:51)
[2020-11-09 16:01] VITALS: BP 178/92
[2020-11-09] MEDS ORDERED: FAMOTIDINE 20 MG (PEPCID) TABLET PO PRN (16:45)
[2020-11-09] MEDS ORDERED: RX-CYCLOBENZAPRINE 10 MG (FLEXERIL) TAB PPK#3 PO PRN (16:45)
[2020-11-09] MEDS ORDERED: CYCLOBENZAPRINE 10 MG (FLEXERIL) TAB PO PRN (17:00)
[2020-11-09] MEDS: HYDROcodone/APAP 7.5 MG/325 MG (LORTAB, LORCET PLUS) TABLET PO PRN ×2 (17:17→22:01)
--- NOTE | 2020-11-09 17:49 | History & Physical-Hospitalist ---
KALYAN TRACEY 11/09/20 1749: History of Present Illness HPI/Chief Complaint 65 yo F presents to the ED after a fall due to orthostatic hypotension that caused a fracture to T12 and trauma to the left elbow. She reports dizziness upon getting up to quickly which led her to the ED and this still persist as of today. This is her second fall in the last few days and she denies trauma to the head. Her CXR is normal except for low lung volumes, she has normal CT of the head and MRI of the brain. An elevated D dimer was followed up with US of b/l LE which had normal findings. She reports the pain of her back to be a 10/10. She also reports having a positive urine culture of E. Coli on 11-04-19 with a history of least 5 UTIs in the past year. Most recent urine culture shows contamination. She denies any pain in the abdomen or near her kidneys and bladder. She also denies vaginal dryness, vaginal discharge, urinary frequency, urinary urgency, or urination that colbert. Source: patient, old records Exam Limitations: physical impairment (leaning over to one side due to back pain) Date Seen 11/09/20 Time Seen by a Provider: 17:00 Attending Physician Tequila Roberto DO PCP [facility] Referring Physician Date of Admission Nov 09, 2020 at 10:46 Home Medications & Allergies Home Medications Reviewed patient Home Medication Reconciliation performed by pharmacy medication reconciliations social service technician and/or nursing. Patients Allergies have been reviewed. Allergies Allergies Coded Allergies No Known Drug Allergies (Ihgfizayex29/21/20) NKDA, denies allergies to the environment and food Past Woaataf-Dgavvt-Ltvacq Hx Patient Social History Number of Children: 3 Number of living children: 2 Living Status: Younger son has Diabetes Employed/Student: retired Tobacco Use?: No Tobacco type used: Cigarettes Smoking Status: Former Smoker (Quit 18 months ago, smoked 2 packs per day for 25 years previously to that) Smokeless Tobacco Frequency: Never a User Use of E-Cig and/or Vaping dev: No Substance use?: No Alcohol Use?: No Pt feels they are or have been: No Immunizations Up To Date Date of Influenza Vaccine: Jan 01, 2020 First/Initial COVID19 Vaccinat: May 10 2020 Second COVID19 Vaccination Hernando: June 11 2020 Tetanus Booster (TDap): Unknown Hepatitis A: Yes Hepatitis B: Yes Current Status status: No status: No Advance Directives: No Communicates: Verbally Primary Language: Japanese Preferred Spoken Language: Japanese Is interpretation needed?: No Implanted or Applied Medical D: Orthopedic hardware Past Medical History Surgeries: Abdominal (removal of a 23 pound cyst on the ovary), Appendectomy, G allbladder, Hysterectomy, Orthopedic (two back surgeries ) High Cholesterol, Hypertension Neuropathy [employer] History: Hysterectomy Bladder Infection, Renal Failure Chronic Back Pain Diabetes, Insulin dep Sleep Difficulties, Anxiety, Depression Blood Disorders: Yes (ANEMIA) Family Medical History Cancer (One brother and one sister have lung cancer), Diabetes (Mom has DM, 3 siblings as well), Stroke (Father) Review of Systems Constitutional: dizziness; No fever Cardiovascular: No chest pain Gastrointestinal: No constipation Genitourinary: No discharge, No dysuria, No frequency, No incontinence, No pain Other No N/V, normal bowel movements Physical Exam Physical Exam Vital Signs Vital Signs - First Documented 11/09/20 10:20 Temp 35.7 Pulse 82 Resp 18 B/P (MAP) 172/92 (118) Pulse Ox 93 O2 Delivery Room Air Capillary Refill : Less Than 3 Seconds Height, Weight, BMI Height: 5'5.00" Weight: 187lbs. 0.6oz. 84.759968ew; 33.00 BMI Method:Stated General Appearance: No Apparent Distress Respiratory: Lungs Clear, Normal Breath Sounds, No Accessory Muscle Use, No Respiratory Distress Cardiovascular: Regular Rate, Rhythm Gastrointestinal: Normal Bowel Sounds, No Organomegaly, Non Tender; No Abnormal Bowel Sounds Results Results/Procedures Labs Laboratory Tests 11/09/20 12:00 Patient resulted labs reviewed. Assessment/Plan Assessment and Plan Orthostatic Hypotension HTN UTI Diabetes Hyponatremia Repeat urine culture and monitor for any signs of worsening symptoms including signs of fever, urination difficulties, or abdominal pain. Monitor HTN and blood glucose levels. TEQUILA ROBERTO DO 11/10/20 0540: History of Present Illness HPI/Chief Complaint Chief complaint: Severe weakness with UTI History of present illness: This is a 65-year-old white female who has a past medical history of UTIs who suffered a fall a few weeks ago causing fracture of T12 and left elbow who became more more weak and could no longer ambulate at home. She is found to have a UTI. Patient will need aggressive therapy in order to evaluate if she can return home or needs skilled care. Source: patient, old records Exam Limitations: clinical condition, physical impairment (leaning over to one side due to back pain) Past Lafeotl-Gowpdy-Tdqjyh Hx Patient Social History Marrital Status: single Smoking Status: Former Smoker (Quit 18 months ago, smoked 2 packs per day for 25 years previously to that) Past Medical History Hypertension Bladder Infection Review of Systems Constitutional: see HPI, weakness Respiratory: no symptoms reported Cardiovascular: no symptoms reported Gastrointestinal: no symptoms reported Musculoskeletal: back pain, joint pain Psychiatric/Neurological: No Symptoms Reported Physical Exam Physical Exam General Appearance: No Apparent Distress, Chronically ill, Obese Eyes: Right Eye Normal Inspection, Right Eye PERRL HEENT: PERRL/EOMI, Normal ENT Inspection, Pharynx Normal, Moist Mucous Membran es Neck: Full Range of Motion, Normal Inspection, Non Tender Respiratory: Chest Non Tender, Lungs Clear, Normal Breath Sounds, No Accessory Muscle Use, No Respiratory Distress Cardiovascular: Regular Rate, Rhythm, No Edema, No Gallop, No JVD, No Murmur, Normal Peripheral Pulses Gastrointestinal: Normal Bowel Sounds, No Organomegaly, No Pulsatile Mass, Non Tender, Soft Back: Normal Inspection, No CVA Tenderness, No Vertebral Tenderness Extremity: Normal Capillary Refill, Normal Inspection, Normal Range of Motion, Non Tender, No Calf Tenderness, No Pedal Edema Neurologic/Psychiatric: Alert, Oriented x3, Normal Mood/Affect, tinner helper II-XII Norm as Tested, Abnormal Gait, Motor Weakness (Generalized) Skin: Normal Color, Warm/Dry Lymphatic: No Adenopathy Assessment/Plan Admission Diagnosis Assessment: Severe weakness Recent fall with T12 fracture UTI Generalized weakness Plan: Supportive care IV antibiotics Pain control PT and OT Admission Status: Inpatient Order (span 2 midnights) Reason for Inpatient Admission: Complicated UTI with severe weakness Supervisory-Addendum Brief Verification & Attestation Participated in pt care: history, MDM, physical Personally performed: exam, history, MDM, supervision of care Care discussed with: Medical Student Procedures: n/a Results interpretation: Verified all documentation Verification and Attestation of Medical Student E/M Service A medical student performed and documented this service in my presence. I rev iewed and verified all information documented by the medical student and made modifications to such information, when appropriate. I personally performed the physical exam and medical decision making. Tequila Roberto, Nov 10, 2020,05:40 KALYAN TRACEY Nov 09, 2020 17:49 TEQUILA ROBERTO DO Nov 10, 2020 05:40
[2020-11-09] MEDS ORDERED: LOSARTAN 50 MG (COZAAR) TAB PO SCH (18:00)
[2020-11-09] MEDS ORDERED: NON-FORMULARY MEDICATION 1 EA EA (Lovastatin 20 MG) PO SCH (18:00)
[2020-11-09] MEDS ORDERED: CELECOXIB 100 MG (CeleBREX) CAP PO SCH (18:00)
[2020-11-09] MEDS ORDERED: INSULIN DEGLUDEC 110 UNIT SQ SCH (18:00)
[2020-11-09] MEDS ORDERED: NON-FORMULARY MEDICATION 1 EA EA (Celecoxib (Celebrex) 200 MG) PO SCH (18:00)
[2020-11-09] MEDS ORDERED: SIMvastatin 10 MG (ZOCOR) TAB PO SCH (18:00)
[2020-11-09 20:01] VITALS: BP 186/85
[2020-11-09] MEDS: GABAPENTIN 300 MG (NEURONTIN) CAP PO SCH (20:11)
[2020-11-09] MEDS: MECLIZINE 25 MG (ANTIVERT) TAB PO SCH (20:11)
[2020-11-09] MEDS ORDERED: AMITRIPTYLINE 50 MG (ELAVIL) TAB PO SCH (21:00)
[2020-11-09] MEDS ORDERED: NON-FORMULARY MEDICATION 1 EA EA (Amitriptyline HCl 100 MG) PO SCH (21:00)
[2020-11-09] MEDS ORDERED: amLODIPine 5 MG (NORVASC) TAB PO ONE (21:15)
[2020-11-09] MEDS ORDERED: cloNIDine 0.1 MG (CATAPRES) TAB PO PRN (21:15)
[2020-11-09] MEDS ORDERED: MELATONIN 3 MG TABLET PO PRN (21:15)
[2020-11-09] MEDS ORDERED: CALCIUM CARBONATE 500 MG (TUMS) TAB.CHEW PO PRN (21:15)
[2020-11-09] MEDS ORDERED: diphenhydrAMINE 25 MG TAB (BENADRYL) PO PRN (21:15)
[2020-11-09] MEDS ORDERED: DOCUSATE SODIUM 100 MG (COLACE) CAP PO PRN (21:15)
[2020-11-09] MEDS ORDERED: ALPRAZolam 0.25 MG (XANAX) TAB PO PRN (21:15)
[2020-11-09] MEDS ORDERED: LOPERAMIDE 2 MG (IMODIUM) TABLET PO PRN (21:15)
[2020-11-09] MEDS ORDERED: ONDANSETRON 4 MG/2 ML (SDV) Z0FRAN IVP PRN (21:15)
[2020-11-09] MEDS ORDERED: ACETAMINOPHEN 325 MG TABLET PO PRN (21:45)
[2020-11-09 23:34] VITALS: BP 184/81
[2020-11-10] MEDS: HYDROcodone/APAP 7.5 MG/325 MG (LORTAB, LORCET PLUS) TABLET PO PRN (04:10)
[2020-11-10 04:14] VITALS: BP 157/76
[2020-11-10] MEDS: LACTATED RINGERS 1,000 ML IV SCH (05:07)
[2020-11-10 05:46] LABS: BASOPHILS # (AUTO) 0.1 10^3/uL (0.0-0.1); BASOPHILS % (AUTO) 1 % (0-10); EOSINOPHILS # (AUTO) 0.3 10^3/uL (0.0-0.3); EOSINOPHILS % (AUTO) 4 % (0-10); HEMATOCRIT 35 % (35-52); HEMOGLOBIN 10.9 g/dL (11.5-16.0); LYMPHOCYTES # (AUTO) 1.8 10^3/uL (1.0-4.0); LYMPHOCYTES % (AUTO) 24 % (12-44); MEAN CORPUSCULAR HEMOGLOBIN 27 pg (25-34); MEAN CORPUSCULAR HGB CONC 31 g/dL (32-36); MEAN CORPUSCULAR VOLUME 86 fL (80-99); MONOCYTES # (AUTO) 0.5 10^3/uL (0.0-1.0); MONOCYTES % (AUTO) 7 % (0-12); NEUTROPHILS # (AUTO) 4.9 10^3/uL (1.8-7.8); NEUTROPHILS % (AUTO) 65 % (42-75); PLATELET COUNT 207 10^3/uL (130-400); WHITE BLOOD COUNT 7.5 10^3/uL (4.3-11.0)
[2020-11-10 05:58] LABS: ALBUMIN 3.2 GM/DL (3.2-4.5); POTASSIUM 4.6 MMOL/L (3.6-5.0)
[2020-11-10 06:00] LABS: CALCIUM 9.3 MG/DL (8.5-10.1)
[2020-11-10] MEDS ORDERED: inSUlin ASPART (NovoLOG) 1 UNIT/0.01 ML (CHARGE PER UNIT) SC SCH (06:00)
[2020-11-10 06:01] LABS: TOTAL PROTEIN 6.6 GM/DL (6.4-8.2)
[2020-11-10 06:03] LABS: BILIRUBIN,TOTAL 0.3 MG/DL (0.1-1.0)
[2020-11-10 06:04] LABS: CREATININE SERUM 1.28 MG/DL (0.60-1.30)
[2020-11-10 08:00] VITALS: BP 155/92
[2020-11-10] MEDS: GABAPENTIN 300 MG (NEURONTIN) CAP PO SCH (08:40)
[2020-11-10] MEDS: MECLIZINE 25 MG (ANTIVERT) TAB PO SCH (08:40)
[2020-11-10] MEDS ORDERED: ASPIRIN E.C. 81 MG (ECOTRIN) TAB PO SCH (09:00)
[2020-11-10] MEDS ORDERED: SENNA W/DOCUSATE (SENOKOT S) TABLET PO SCH (09:00)
[2020-11-10] MEDS ORDERED: amLODIPine 5 MG (NORVASC) TAB PO SCH (09:00)
[2020-11-10] MEDS ORDERED: polyethylene glycoL POWDER 17 GM (MIRALAX) PACK PO SCH (09:00)
[2020-11-10] MEDS ORDERED: CALCIUM CARBONATE 600 MG (CALCARB) TAB PO SCH (09:00)
[2020-11-10] MEDS ORDERED: NON-FORMULARY MEDICATION 1 EA EA (Liraglutide (Victoza 3-Pak) 1.8 MG) SC SCH (09:00)
--- NOTE | 2020-11-10 10:25 | Discharge Summary ---
Diagnosis/Chief Complaint Date of Admission Nov 09, 2020 at 10:46 Date of Discharge Discharge Date: Nov 10, 2020 Discharge Diagnosis Debility Compression fracture T12 Multiple falls Discharge Summary Discharge Physical Examination Allergies: Coded Allergies: lisinopril (Unverified Adverse Reaction, Intermediate, Cough, 11/10/20) Listed on medical record from PCP's office. Uncoded Allergies: Morphine Sulfate (Adverse Reaction, Intermediate, Confusion, 11/10/20) Listed on medical record from PCP's office. Vitals & I&Os Vital Signs Date Time Temp Pulse Resp B/P (MAP) Pulse Ox O2 Delivery O2 Flow Rate FiO2 11/10/20 08:00 36.7 69 20 155/92 (113) 95 Room Air Hospital Course Was the Problem List Reviewed?: Yes Short hospital course after admitted for observation due to falls and debility met criteria for inpatient rehab and transferred there. No further treatment needed for abnormal UA since normal ethan on culture. Labs (last 24 hrs) Laboratory Tests 11/09/20 12:00: White Blood Count 9.4, Red Blood Count 4.68, Hemoglobin 12.5, Hematocrit 40, Mean Corpuscular Volume 86, Mean Corpuscular Hemoglobin 27, Mean Corpuscular Hemoglobin Concent 31L, Red Cell Distribution Width 14.1, Platelet Count 243, Mean Platelet Volume 9.8, Immature Granulocyte % (Auto) 0, Neutrophils (%) (Auto) 76H, Lymphocytes (%) (Auto) 15, Monocytes (%) (Auto) 5, Eosinophils (%) (Auto) 3, Basophils (%) (Auto) 1, Neutrophils # (Auto) 7.2, Lymphocytes # (Auto) 1.4, Monocytes # (Auto) 0.4, Eosinophils # (Auto) 0.3, Basophils # (Auto) 0.1, Immature Granulocyte # (Auto) 0.0, Sodium Level 134L, Potassium Level 4.5, Chloride Level 100, Carbon Dioxide Level 25, Anion Gap 9, Blood Urea Nitrogen 23H, Creatinine 1.36H, Estimat Glomerular Filtration Rate 39, BUN/Creatinine Ratio 17, Glucose Level 120H, Calcium Level 9.8, SARS-CoV-2 RNA (RT-PCR) Not Detected 11/09/20 15:24: Glucometer 152H 11/09/20 20:14: Glucometer 249H 11/10/20 04:30: Sodium Level 134L, Potassium Level 4.6, Chloride Level 101, Carbon Dioxide Level 23, Anion Gap 10, Blood Urea Nitrogen 21H, Creatinine 1.28, Estimat Glomerular Filtration Rate 42, BUN/Creatinine Ratio 16, Glucose Level 183H, Calcium Level 9.3, Corrected Calcium 9.9, Total Bilirubin 0.3, Aspartate Amino Transf ( T/SGOT) 16, Alanine Aminotransferase (ALT/SGPT) 11, Alkaline Phosphatase 91, Total Protein 6.6, Albumin 3.2 11/10/20 04:50: White Blood Count 7.5, Red Blood Count 4.11, Hemoglobin 10.9L, Hematocrit 35, Mean Corpuscular Volume 86, Mean Corpuscular Hemoglobin 27, Mean Corpuscular Hemoglobin Concent 31L, Red Cell Distribution Width 14.0, Platelet Count 207, Mean Platelet Volume 10.0, Immature Granulocyte % (Auto) 0, Neutrophils (%) (Auto) 65, Lymphocytes (%) (Auto) 24, Monocytes (%) (Auto) 7, Eosinophils (%) (Auto) 4, Basophils (%) (Auto) 1, Neutrophils # (Auto) 4.9, Lymphocytes # (Auto) 1.8, Monocytes # (Auto) 0.5, Eosinophils # (Auto) 0.3, Basophils # (Auto) 0.1, Immature Granulocyte # (Auto) 0.0 11/10/20 11:17: Glucometer 307H Pending Labs Laboratory Tests 11/09/20 12:00: White Blood Count 9.4, Red Blood Count 4.68, Hemoglobin 12.5, Hematocrit 40, Mean Corpuscular Volume 86, Mean Corpuscular Hemoglobin 27, Mean Corpuscular Hemoglobin Concent 31, Red Cell Distribution Width 14.1, Platelet Count 243, Mean Platelet Volume 9.8, Immature Granulocyte % (Auto) 0, Neutrophils (%) (Auto) 76, Lymphocytes (%) (Auto) 15, Monocytes (%) (Auto) 5, Eosinophils (%) (Auto) 3, Basophils (%) (Auto) 1, Neutrophils # (Auto) 7.2, Lymphocytes # (Auto) 1.4, Monocytes # (Auto) 0.4, Eosinophils # (Auto) 0.3, Basophils # (Auto) 0.1, Immature Granulocyte # (Auto) 0.0, Sodium Level 134, Potassium Level 4.5, Chloride Level 100, Carbon Dioxide Level 25, Anion Gap 9, Blood Urea Nitrogen 23, Creatinine 1.36, Estimat Glomerular Filtration Rate 39, BUN/Creatinine Ratio 17, Glucose Level 120, Calcium Level 9.8, SARS-CoV-2 RNA (RT-PCR) Not Detected 11/09/20 15:24: Glucometer 152 11/09/20 20:14: Glucometer 249 11/10/20 04:30: Sodium Level 134, Potassium Level 4.6, Chloride Level 101, Carbon Dioxide Level 23, Anion Gap 10, Blood Urea Nitrogen 21, Creatinine 1.28, Estimat Glomerular Filtration Rate 42, BUN/Creatinine Ratio 16, Glucose Level 183, Calcium Level 9.3, Corrected Calcium 9.9, Total Bilirubin 0.3, Aspartate Amino Transf (AST/SGOT) 16, Alanine Aminotransferase (ALT/SGPT) 11, Alkaline Phosphatase 91, Total Protein 6.6, Albumin 3.2 11/10/20 04:50: White Blood Count 7.5, Red Blood Count 4.11, Hemoglobin 10.9, Hematocrit 35, Me an Corpuscular Volume 86, Mean Corpuscular Hemoglobin 27, Mean Corpuscular Hemoglobin Concent 31, Red Cell Distribution Width 14.0, Platelet Count 207, Mean Platelet Volume 10.0, Immature Granulocyte % (Auto) 0, Neutrophils (%) (Auto) 65, Lymphocytes (%) (Auto) 24, Monocytes (%) (Auto) 7, Eosinophils (%) (Auto) 4, Basophils (%) (Auto) 1, Neutrophils # (Auto) 4.9, Lymphocytes # (Auto) 1.8, Monocytes # (Auto) 0.5, Eosinophils # (Auto) 0.3, Basophils # (Auto) 0.1, Immature Granulocyte # (Auto) 0.0 11/10/20 11:17: Glucometer 307 Discharge Home Medications: Active Scripts Active Reported Famotidine 20 Mg Tablet 20 Mg PO BID PRN Tresiba Flextouch U-200 (Insulin Degludec) 200 Unit/1 Ml Insuln.pen 110 Unit SQ 1800 Nitrofurantoin (Nitrofurantoin Macrocrystal) 100 Mg Capsule 100 Mg PO BID FILLED 11-01-2020 #14/7 DAY SUPPLY Calcium (Calcium Carbonate) 600 Mg Tablet 600 Mg PO DAILY Losartan Potassium 50 Mg Tablet 50 Mg PO 1800 Meclizine HCl 25 Mg Tablet 25 Mg PO BID Neurontin (Gabapentin) 300 Mg Capsule 300 Mg PO TID Novolog Flexpen (Insulin Aspart) 300 Units/3 Ml Solution Units SQ AC USES PER SLIDING SCALE Cyclobenzaprine HCl 10 Mg Tablet 10 Mg PO TID PRN Amitriptyline HCl 100 Mg Tablet 100 Mg PO HS Levemir (Insulin Determir) 1,000 Units/10 Ml Soln 10 Units SQ DAILY Hydrocodone-Acetamin 7.5-325 (Hydrocodone/Acetaminophen) 1 Each Tablet 1 Each PO Q4H PRN Celebrex (Celecoxib) 200 Mg Capsule 200 Mg PO 1800 Aspirin EC (Aspirin) 81 Mg Tablet.dr 81 Mg PO DAILY Victoza 3-Jn (Liraglutide) 0.6 Mg/0.1 Ml Pen.injctr 1.8 Mg SC DAILY Lovastatin 20 Mg Tablet 20 Mg PO 1800 Instructions to patient/family Please see electronic discharge instructions given to patient. KATELYNN VÁZQUEZ DO Nov 10, 2020 10:25
== END 2020-11-10 10:55 | DRG 560 ==
LOC: EDUNIT# 10:17 → ER 10:20 → 4TH 10:46
PROVIDERS: ADMIT Internal Medicine; ATTEND Internal Medicine
DX: S22.089D Unspecified fracture of T11-T12 vertebra, subsequent encounter for fracture with routine healing (principal); E87.1 Hypo-osmolality and hyponatremia; N39.0 Urinary tract infection, site not specified; R53.1 Weakness; Z91.81 History of falling; R26.2 Difficulty in walking, not elsewhere classified; Z20.822 Contact with and (suspected) exposure to COVID-19; D64.9 Anemia, unspecified; E78.00 Pure hypercholesterolemia, unspecified; I10 Essential (primary) hypertension; E11.40 Type 2 diabetes mellitus with diabetic neuropathy, unspecified; Z79.4 Long term (current) use of insulin; G25.81 Restless legs syndrome; F41.9 Anxiety disorder, unspecified; F32.9 Major depressive disorder, single episode, unspecified; M54.9 Dorsalgia, unspecified; Z87.891 Personal history of nicotine dependence; Z79.82 Long term (current) use of aspirin; Z83.3 Family history of diabetes mellitus; Z88.8 Allergy status to other drugs, medicaments and biological substances; S59.902D Unspecified injury of left elbow, subsequent encounter
CPT/HCPCS: 36415; 80048; 80053; 82947; 85025; 87636

== ENCOUNTER 2020-11-10 10:09 | Inpatient (IN) | payer MEDICARE ==
[~2020-11-10 10:09] MED LIST changes: +CALC600T91 PO; +FAMO20TA5 PO; +GABA300C PO; +INSU200I4 SQ; +MECL-149 PO
[2020-11-10] MEDS ORDERED: FLEET ENEMA ADULT 1 EA BTL PR PRN (10:45)
[2020-11-10] MEDS ORDERED: DOCUSATE SODIUM 100 MG (COLACE) CAP PO PRN (10:45)
[2020-11-10] MEDS ORDERED: MELATONIN 3 MG TABLET PO PRN (10:45)
[2020-11-10] MEDS ORDERED: LOPERAMIDE 2 MG (IMODIUM) TABLET PO PRN (10:45)
[2020-11-10] MEDS ORDERED: ONDANSETRON 4 MG (ZOFRAN) ORAL DISSOLVE TAB PO PRN (10:45)
[2020-11-10] MEDS ORDERED: LACTULOSE SYRUP 10GM/15ML (ENULOSE) 30ML UDC PO PRN (10:45)
[2020-11-10] MEDS ORDERED: CALCIUM CARBONATE 500 MG (TUMS) TAB.CHEW PO PRN (10:45)
[2020-11-10] MEDS ORDERED: diphenhydrAMINE 25 MG TAB (BENADRYL) PO PRN (10:45)
[2020-11-10] MEDS ORDERED: BISACODYL 10 MG SUPP (DULCOLAX) PR PRN (10:45)
[2020-11-10] MEDS ORDERED: guaiFENesin/CODEINE (ROBITUSSIN AC) 10ML UDC PO PRN (10:45)
[2020-11-10] MEDS ORDERED: ALPRAZolam 0.25 MG (XANAX) TAB PO PRN (10:45)
--- NOTE | 2020-11-10 11:37 | PM&R Post Admission Assessment ---
PM&R Date of Visit: Nov 10, 2020 Time of Visit: 11:45 History of Present Illness Chief complaint: Debility with falls with T12 compression fracture History of present illness: This is a 65-year-old white female known to me from prior admissions who was admitted to observation due to early UTI placed on Rocephin and pain control due to T12 compression fracture. She has been falling a lot at home. She has poorly controlled diabetes due to poor dietary selections. At this current time patient just reports pain and the pain medication is helping her. Focus will be using assistive devices to prevent falls and help ambulatory and independent ADL skills in order to return back to independent living. Note from medical student: Transferred to rehab Presented to the ED after a fall in which she fractured T12 of her spine and has a recent PMH of a recurrent UTIs and a right elbow fracture suffered three weeks ago. She reports falling multiple times this past year and has orthostatic hypotension. She reports that her pain is improved from 10/10 yesterday to 8/10 for her back and 7/10 for her right elbow. She reports no pain upon abdominal exam and denies fever since being admitted. Her urine color two days ago was a brown color and now is a form builder helper color, but not quite back to its normal color. She denies any sexual activity for many years and has never tested posted for a STI. She lives with her , and will also get some assistance from her daughter who lives close by. Her home has two small steps to enter the main door and one small step on the ground floor to get into the kitchen. Poorly controlled diabetes at home due to poor food choices that includes a lot of sugar from cupcakes. She acknowledges her poor diet at home and wants to make a change. Her Hb has dropped from 12.5 to 10.9 with a previous history of iron deficiency anemia. Her BUN is elevated at 21. ROS: denies fever, SOB, CP, pain in abdomen, and constipation. Positive for pain in back and elbow. A/P UTI Generalized weakness Fracture of T12 from fall R elbow pain from fracture 3 weeks ago PT and OT, supportive care, pain control, and continue antibiotics. Past Oumftbr-Lxcmaw-Veppit Hx Past Med/Social Hx: Reviewed Nursing Past Med/Soc Hx, Reviewed and Corrections made Patient Social History Marrital Status: single Employed/Student: retired Alcohol Use: Denies Use Smoking Status: Former Smoker Type Used: Cigarettes 2nd Hand Smoke Exposure: No Recent Hopitalizations: No Immunizations Up To Date Date of Influenza Vaccine: Jan 01, 2020 Past Medical History Surgeries: Abdominal, Appendectomy, Gallbladder, Hysterectomy, Orthopedic Cardiac: Hypertension Neurological: Neuropathy Reproductive: No Hysterectomy Genitourinary: Bladder Infection Musculoskeletal: Back Injury, Chronic Back Pain Endocrine: Diabetes, Insulin dep Psychosocial: Sleep Difficulties, Anxiety, Depression History of Blood Disorders: Yes (ANEMIA) Family History Cancer, Diabetes, Stroke PM&R Allergy/Meds/Data Review Allergies Coded Allergies: lisinopril (Unverified Adverse Reaction, Intermediate, Cough, 11/10/20) Listed on medical record from PCP's office. Uncoded Allergies: Morphine Sulfate (Adverse Reaction, Intermediate, Confusion, 11/10/20) Listed on medical record from PCP's office. Home Medications Scheduled Amitriptyline HCl (Amitriptyline HCl), 100 MG PO HS, (Reported) Aspirin (Aspirin EC), 81 MG PO DAILY, (Reported) Calcium Carbonate (Calcium), 600 MG PO DAILY, (Reported) Celecoxib (Celebrex), 200 MG PO 1800, (Reported) Gabapentin (Neurontin), 300 MG PO TID, (Reported) Insulin Aspart (Novolog Flexpen), UNITS SQ AC, (Reported) Insulin Degludec (Tresiba Flextouch U-200), 110 UNIT SQ 1800, (Reported) Insulin Determir (Levemir), 10 UNITS SQ DAILY, (Reported) Liraglutide (Victoza 3-Jn), 1.8 MG SC DAILY, (Reported) Losartan Potassium (Losartan Potassium), 50 MG PO 1800, (Reported) Lovastatin (Lovastatin), 20 MG PO 1800, (Reported) Meclizine HCl (Meclizine HCl), 25 MG PO BID, (Reported) Nitrofurantoin Macrocrystal (Nitrofurantoin), 100 MG PO BID, (Reported) Scheduled PRN Cyclobenzaprine HCl (Cyclobenzaprine HCl), 10 MG PO TID PRN for MUSCLE SPASMS, (Reported) Famotidine (Famotidine), 20 MG PO BID PRN for HEARTBURN, (Reported) Hydrocodone/Acetaminophen (Hydrocodone-Acetamin 7.5-325), 1 EACH PO Q4H PRN for PAIN-MODERATE (5-7), (Reported) Discontinued Medications Amitriptyline HCl (Amitriptyline HCl), 10 MG PO, (Reported) Discontinued Reason: Prescription changed Cefuroxime Axetil (Cefuroxime), 250 MG PO BID Discontinued Reason: Duplicate Order Cyclobenzaprine HCl (Cyclobenzaprine HCl), 10 MG PO Q8H PRN for SPASMS Discontinued Reason: No Longer Taking Hydrocodone/Acetaminophen (Hydrocodone-Acetamin 7.5-325), 1 EACH PO Q6H Discontinued Reason: Duplicate Order Insulin Aspart (Novolog Flexpen), 0 SQ UD Discontinued Reason: Duplicate Order Nitrofurantoin Macrocrystal (Nitrofurantoin), 100 MG PO BID Discontinued Reason: Duplicate Order Current Medications Current Medications Reviewed Review of Systems Constitutional: see HPI, malaise, weakness EENTM: no symptoms reported Respiratory: no symptoms reported Cardiovascular: no symptoms reported Gastrointestinal: no symptoms reported Genitourinary: no symptoms reported Musculoskeletal: back pain, joint pain Skin: no symptoms reported Psychiatric/Neurological: Weakness All Other Systems Reviewed Negative Unless Noted: Yes Physical Exam Physical Exam Vital Signs Capillary Refill : Height, Weight, BMI Height: 5'5.00" Weight: 187lbs. 0.6oz. [id number]; 33.00 BMI Method:Stated General Appearance: No Apparent Distress, WD/WN, Chronically ill, Obese Eyes: Bilateral Eye Normal Inspection, Bilateral Eye PERRL HEENT: PERRL/EOMI, Normal ENT Inspection, Pharynx Normal Neck: Full Range of Motion, Normal Inspection, Non Tender, Supple, Carotid Bruit Respiratory: Chest Non Tender, Lungs Clear, Normal Breath Sounds, No Accessory Muscle Use, No Respiratory Distress Cardiovascular: Regular Rate, Rhythm, No Edema, No Gallop, No JVD, No Murmur, Normal Peripheral Pulses Gastrointestinal: Normal Bowel Sounds, No Organomegaly, No Pulsatile Mass, Non Tender, Soft Back: Normal Inspection, Decreased Range of Motion, Muscle Spasm, Vertebral Tenderness Extremity: Normal Capillary Refill, Normal Inspection, Normal Range of Motion, Non Tender, No Calf Tenderness, No Pedal Edema Neurologic/Psychiatric: Alert, Oriented x3, tube cleaner II-XII Norm as Tested, Abnormal Gait, Depressed Affect, Motor Weakness (Generalized) Skin: Normal Color, Warm/Dry Lymphatic: No Adenopathy PM&R Medical Assessment & Plan REHAB/MEDICAL ASSESSMENT AND PLAN: REHAB IMPAIRMENT GROUP: Debility with falls and T12 compression fracture ETIOLOGIC DIAGNOSIS: Debility with falls and T12 compression fracture The comorbidities that impact the patients function and/or functional outcome by: Lives alone, diabetes [id number], fall risk, current compression fracture REHAB PLAN: The patient is being admitted to our comprehensive inpatient rehabilitation facility and can tolerate the intensity of service consisting of at least: 180 minutes of therapy a day, 5 out of 7 days a week Rehab treatment will consist of: PT and OT will focus on regaining function of ambulatory skills with fall risk prevention and regaining independent ADLs. The patient/family has a good understanding of our discharge process and will benefit from an interdisciplinary inpatient rehabilitation program. The patient has potential to make improvement and is in need of at least two of the following multidisciplinary therapies including but not limited to physical, occupational, speech, and prosthetics and orthotics. Additionally the patient will need services from respiratory, nutritional services, wound care, psychology, etc. (Customize this to each patient). Given the patients complex condition and risk of further medical complications, rehabilitation services cannot be safely or effectively provided at a lower level of care such as a residential facility. BARRIERS TO DISCHARGE: Lives alone ESTIMATED LOS: 7 days DISPOSITION: Home RELEVANT CHANGES SINCE PREADMISSION SCREENING: I have compared the patients medical and functional status at the time of the preadmission screening and there are: No changes PROGNOSIS: Fair REHABILITATION GOALS: 1. PT and OT will focus on regaining function of ambulatory skills with fall risk prevention and regaining independent ADLs. All the above goals were reviewed with the patient and he/she is in agreement. By signing this document, I acknowledge that I have personally performed a full physical examination on this patient within 24 hours of admission to this inpatient rehabilitation facility and have determined the patient to be able to tolerate the above course of treatment at an intensive level for a reasonable period of time. I will be completing a detailed individualized Plan of Care for this patient by day #4 of the patients stay based upon the Preadmission Screen, the Post-Admission Evaluation, and the therapy evaluations. Admission Dx/Comorbidities: (1) Debility ICD Codes: R53.81 - Other malaise (2) Diabetes mellitus, insulin dependent (IDDM), uncontrolled (3) Weakness Status: Acute ICD Codes: R53.1 - Weakness (4) T12 compression fracture Status: Acute ICD Codes: S22.080A - Wedge compression fracture of T11-T12 vertebra, initial encounter for closed fracture (5) Fall (on) (from) other stairs and steps, initial encounter Status: Acute ICD Codes: W10.8XXA - Fall (on) (from) other stairs and steps, initial encounter (6) Back pain Status: Acute ICD Codes: M54.9 - Dorsalgia, unspecified Assessment/Plan Assessment and Plan Assess & Plan/Chief Complaint Assessment: Debility Multiple falls Current subacute T12 compression fracture sustained in fall Right olecranon injury Diabetes mellitus [id number] Noncompliant with diabetic diet Plan: Supportive care Fall risk prevention Aggressive therapy regimen KATELYNN VÁZQUEZ DO Nov 10, 2020 11:37
[2020-11-10 11:42] VITALS: BP 151/81
--- NOTE | 2020-11-10 11:54 | Progress Note ---
KALYAN TRACEY 11/10/20 1154: Progress Note Transferred to rehab Presented to the ED after a fall in which she fractured T12 of her spine and has a recent PMH of a recurrent UTIs and a right elbow fracture suffered three weeks ago. She reports falling multiple times this past year and has orthostatic hypotension. She reports that her pain is improved from 10/10 yesterday to 8/10 for her back and 7/10 for her right elbow. She reports no pain upon abdominal exam and denies fever since being admitted. Her urine color two days ago was a brown color and now is a hospital staff pharmacist color, but not quite back to its normal color. She denies any sexual activity for many years and has never tested posted for a STI. She lives with her , and will also get some assistance from her daughter who lives close by. Her home has two small steps to enter the main door and one small step on the ground floor to get into the kitchen. Poorly controlled diabetes at home due to poor food choices that includes a lot of sugar from cupcakes. She acknowledges her poor diet at home and wants to make a change. Her Hb has dropped from 12.5 to 10.9 with a previous history of iron deficiency anemia. Her BUN is elevated at 21. ROS: denies fever, SOB, CP, pain in abdomen, and constipation. Positive for pain in back and elbow. A/P UTI Generalized weakness Fracture of T12 from fall R elbow pain from fracture 3 weeks ago PT and OT, supportive care, pain control, and continue antibiotics. TEQUILA VÁZQUEZ DO 11/11/20 0517: Supervisory-Addendum Brief Verification & Attestation Participated in pt care: history, MDM, physical Personally performed: exam, history, MDM, supervision of care Care discussed with: Medical Student Procedures: n/a Results interpretation: Verified all documentation Verification and Attestation of Medical Student E/M Service A medical student performed and documented this service in my presence. I reviewed and verified all information documented by the medical student and made modifications to such information, when appropriate. I personally performed the physical exam and medical decision making. Tequila Vázquez Nov 11, 2020,05:16 RENETTA TRACEYMADALYN Nov 10, 2020 11:54 TEQUILA VÁZQUEZ DO Nov 11, 2020 05:17
--- NOTE | 2020-11-10 12:09 | Occupational Therapy Eval ---
OT Evaluation-General/PLF Medical Diagnosis Admission Date Nov 10, 2020 at 11:15 Medical Diagnosis: Falls, Debility Onset Date: Nov 09, 2020 Therapy Diagnosis Therapy Diagnosis: Impaired ADLS, IADLs, endurance, balance, UE ROM/strength Height/Weight Height (Feet): 5 Height (Inches): 5.00 Weight (Pounds): 187 Weight (Ounces): 0.6 Precautions Precautions/Isolations: Fall Prevention, Standard Precautions Weight Bear Status Weight Bearing Restriction: Weight Bearing/Tolerated Location Restriction: LE Bilateral Referral Physician: Pardeep Referral Reason: Evaluation/Treatment Medical History Pertinent Medical History: DM, Fractures, HTN, Neuropathy Additional Medical History UTI, DAQUAN, T12 compression fx (10/31/20), Elbow fx (~3 weeks ago) Current History Pt presents to ED with increasing weakness and difficulty walking. She reports l iving in a single level home with spouse. She was indep with ADLs and shares IADL responsibilities with spouse and daughter. Her daughter reports several falls within the last year with recent falls causing fractures. Per patient, she has a T12 fracture (10/31/20) and a L elbow fracture from ~3 weeks prior. She owns a walker, cane and wheelchair but verbalizes only using the walker when she is out in the community. She has a built in shower seat in walk in shower. Reviewed History: Yes Social History Home: Single Level Current Living Status: Spouse Entry Into Home: Ramp, Stairs With Railing Daughter reports that a ramp is being built for home entrance. ADL-Prior Level of Function SCALE: Activities may be completed with or without assistive devices. 2-Nuuebohlim-rxrkfpm completes the activity by him/herself with no assistance from a helper. 5-Set-up or Clean-up Assistance-helper sets up or cleans up; patient completes activity. Bond assists only prior to or following the activity. 4-Supervision or Touching Assistance-helper provides verbal cues and/or touching/steadying and/or contact guard assistance as patient completes activity. Assistance may be provided throughout the activity or intermittently. 3-Partial/Moderate Assistance-helper does LESS THAN HALF the effort. Bond lifts, holds or supports trunk or limbs, but provides less than half the effort. 2-Substantial/Maximal Assistance-helper does MORE THAN HALF the effort. Bond lifts or holds trunk or limbs and provides more than half the effort. 7-Zoorltfrt-hthpcf does ALL the effort. Patient does none of the effort to complete the activity. Or, the assistance of 2 or more helpers is required for the patient to complete the activity. If activity was not attempted, code reason: 7-Patient Refused. 9-Not Applicable-not attempted and the patient did not perform the activity before the current illness, exacerbation or injury. 10-Not Attempted due to Environmental Limitations-(lack of equipment, weather restraints, etc.). 88-Not Attempted due to Medical Conditions or Safety Concerns. Self Care: Independent Functional Cognition: Needed Some Help built in shower seat OT Current Status Subjective Pt reports 10/10 pain located in back. She verbalizes that she had not received pain meds since earlier in am. RN informed. Appearance Pt left sitting in therapy gym with physical therapist and CARTY. Mental Status/Objective Patient Orientation: Person, Place, Time, Situation Attachments: IV Current Hand Dominance: Right Upper Extremity ROM RUE: WFL LUE: impaired shoulder/elbow ROM due to pain and recent fx. Wrist/digits: WFL. No specific restrictions/ROM protocols noted in chart at this time. OT to clarify. Upper Extremity Strength Not formally tested secondary to back pain and recent fractures. ADL-Treatment ADL-Current At OT arrival, nursing staff taking vitals while pt sitting at EOM. BP: 157/81. Post cue for compensatory method, pt was able to don/doff gisele socks with CGA to bring RLE onto side of the bed. Good initiation to utilize figure 4 method on L. Extra effort and time observed. Pt would benefit from education on use of AE and compensatory/adaptive strategies during LB dressing for safety/care of back. Sit<>stand with Min A, cues for correct hand placement.Pt can be impulsive with transfers, cues for safety. Requires steadying assist when managing clothing over hips with zero UE support. Pt left in care of CARTY to finish treatment. Eating (QC): 5 Oral Hygiene (QC): 9 Shower/Bathe Self (QC): 7 Upper Body Dressing (QC): 7 Lower Body Dressing (QC): 3 (Steadying assist) On/Off Footwear (QC): 4 (CGA) Toileting Hygiene (QC): 3 (steadying assist, cues for thoroughness of anton care.) Other Treatments Education OT Patient Education: Correct positioning, Energy conservation, Modified ADL techniques, Progress toward Goal/Update tx plan, Purpose of tx/functional activities, Reviewed precautions, Rehab process, Safety issues, Transfer techniques, Use of adapted equipment Teaching Recipient: Patient Teaching Methods: Demonstration, Discussion Response to Teaching: Verbalize Understanding, Return Demonstration, Reinforcement Needed OT Short Term Goals Short Term Goals Eatin Oral hygiene: 9 Toileting hygiene: 4 Shower/bathe self: 4 Upper body dressin Lower body dressin Putting on/taking off footwear: 4 OT Prison Goals Prison Goals Eating (QC): 6 Oral Hygiene (QC): 9 Toileting Hygiene (QC): 6 Shower/Bathe Self (QC): 6 Upper Body Dressing (QC): 6 Lower Body Dressing (QC): 6 On/Off Footwear (QC): 6 1=Demonstrate adherence to instructed precautions during ADL tasks. 2=Patient will verbalize/demonstrate understanding of assistive devices/modifications for ADL. 3=Patient will improve strength/tolerance for activity to enable patient to perform ADL's. OT Education/Plan Problem List/Assessment Assessment: Decreased Activ Tolerance, Decreased Safety Aware, Decreased UE Strength, Impaired Bed Mobility, Impaired Funct Balance, Impaired I ADL's, Impaired Self-Care Skills, Restricted Funct UE ROM Discharge Recommendations Plan/Recommendations: Continue POC Equpiment Recommendations-D/C: Rails on Tub/Shower Comment Continue to assess. Pt may benefit from use of envelope folder and sock aid. Target Placement Home vs home health Treatment Plan/Plan of Care Treatment,Training & Education: Yes Patient would benefit from OT for education, treatment and training to promote independence in ADL's, mobility, safety and/or upper extremity function for ADL's. Plan of Care: ADL Retraining, Functional Mobility, Group Exercise/Act as Ind, UE Funct Exercise/Act Treatment Duration: Nov 24, 2020 Frequency: At least 5 of 7 days/Wk (IRF) Estimated Hrs Per Day: 1.5 hours per day Agreement: Yes Rehab Potential: Fair Time/GCodes Start Time: 11:25 Stop Time: 11:35 Total Time Billed (hr/min): 10 Billed Treatment Time 1, Nenita Nance OT Nov 10, 2020 12:09
[2020-11-10] MEDS ORDERED: FAMOTIDINE 20 MG (PEPCID) TABLET PO PRN (12:45)
[2020-11-10] MEDS ORDERED: RX-CYCLOBENZAPRINE 10 MG (FLEXERIL) TAB PPK#3 PO PRN (12:45)
--- NOTE | 2020-11-10 12:49 | Physical Therapy Evaluation ---
PT Evaluation-General Medical Diagnosis Admission Date Nov 10, 2020 at 11:15 Medical Diagnosis: falls, debility Onset Date: Nov 09, 2020 Therapy Diagnosis Therapy Diagnosis: impaired mobility, strength, endurance, balance Height/Weight Height (Feet): 5 Height (Inches): 5.00 Weight (Pounds): 187 Weight (Ounces): 0.6 Precautions Precautions/Isolations: Fall Prevention, Standard Precautions Referral Physician: Tequila Roberto DO Reason for Referral: Evaluation/Treatment Medical History Pertinent Medical History: DM, Fractures, HTN, Neuropathy Current History Patient has a T12 fx and a left olecranon fx. Reviewed History: Yes Social History Home: Single Level Current Living Status: Spouse Entry Into Home: Ramp, Stairs With Railing PT Steps Into Home: 2 Prior Prior Level of Function SCALE: Activities may be completed with or without assistive devices. 8-Itiglqaakq-nvdsshv completes the activity by him/herself with no assistance from a helper. 5-Set-up or Clean-up Assistance-helper sets up or cleans up; patient completes activity. Diamond assists only prior to or following the activity. 4-Supervision or Touching Assistance-helper provides verbal cues and/or touching/steadying and/or contact guard assistance as patient completes activity. Assistance may be provided throughout the activity or intermittently. 3-Partial/Moderate Assistance-helper does LESS THAN HALF the effort. Diamond lifts, holds or supports trunk or limbs, but provides less than half the effort. 2-Substantial/Maximal Assistance-helper does MORE THAN HALF the effort. Diamond lifts or holds trunk or limbs and provides more than half the effort. 3-Edbbwagkl-uehcyj does ALL the effort. Patient does none of the effort to complete the activity. Or, the assistance of 2 or more helpers is required for the patient to complete the activity. If activity was not attempted, code reason: 7-Patient Refused. 9-Not Applicable-not attempted and the patient did not perform the activity before the current illness, exacerbation or injury. 10-Not Attempted due to Environmental Limitations-(lack of equipment, weather restraints, etc.). 88-Not Attempted due to Medical Conditions or Safety Concerns. Bed Mobility: 6 Transfers (B,C,W/C): 6 Gait: 6 Stairs: 6 Indoor Mobility (Ambulation): Independent Stairs: Independent PT Evaluation-Current Subjective Patient sitting EOB pre tx, agrees to PT, has 10/10 pain in back. Will be co- treating for part of tx due to poor patient mobility, strength, endurance, poor safety awareness, coordinate UE and LE during activity, severe pain with activity, safety and reduce risk of falls. Pt/Family Goals to be independent at home Objective Patient Orientation: Person, Place, Situation Attachments: IV ROM/Strength ROM Lower Extremities WNL Strength Lower Extremities LLE (hip flexion 3/5, knee flexion 4+/5, knee extension 5/5, dorsiflexion 5/5), RLE (hip flexion 3/5, knee flexion 4+/5, knee extension 5/5, dorsiflexion 5/5) Sensory Vision: Functional Hearing: Functional Hand Dominance: Right Sensation Right Lower Extremit: Impaired Sensation Left Lower Extremity: Impaired Transfers Roll Left & Right (QC): 6 Sit to Lying (QC): 4 Lying to Sitting/Side of Bed(Q: 4 Sit to Stand (QC): 4 Chair/Ghv-mu-Whznm Xfer(QC): 3 Toilet Transfer (QC): 3 Car Transfer (QC): 3 Patient performs bed mobility and supine <-> sit with SBA, sit <-> stand CGA, transfers and car transfer min assist. Patient needs occasional assist with balance, and she will often leave walker and ambulate a few feet without it, she is unsteady. Cues for hand placement and safety. Gait Does the Patient Walk?: Yes Mode of Locomotion: Walk Anticipated Mode of Locomotion: Walk Walk 10 feet (QC): 3 Walk 50 ft with 2 Turns(QC): 3 Walk 150 ft (QC): 88 Walking 10ft/uneven surface-QC: 3 Distance: 120', 80, Gait Assistive Device: FWW Comments/Gait Description Patient can ambulate 120' with a rolling walker with min assist (including 50' with at least 2 turns of 90 degrees and 10' over an uneven surface). Patient needs occasional assist with balance, cues for safety. Wheelchair Training Does the Pt Use a Wheelchair?: No Wheel 50 ft with 2 turns (QC): 9 Wheel 150 ft (QC): 9 Stairs #of Steps: 1 1 Step (curb) (QC): 3 4 Steps (QC): 88 12 Steps (QC): 88 Walking Assistive Device: Walker Patient can go up and down 1 step using a rolling walker with min assist, cues for foot placement. Balance Sitting Static: Normal Sitting Dynamic: Normal Standing Static: Fair Standing Dynamic: Poor Picking up an Object (QC): 88 Treatment bathing and dressing. Assessment/Needs Patient in bed post tx with nurse call, phone, tray, all needs met. Patient has impaired mobility, strength, endurance. She needs assist with balance during transfers and ambulation, cues for safety. Rehab Potential: Fair PT Short Term Goals Short Term Goals Time Frame: Nov 17, 2020 Roll Left & Right: 6 Sit to lyin Lying to sitting on side of be: 5 Sit to stand: 4 Chair/lis-rg-sdmzw transfer: 4 Walk 10 feet: 4 Walk 50 feet with two turns: 4 Walk 150 feet: 4 PT Banquet Line Cook Goals Care Home Goals PT Care Home Goals Time Frame: Dec 01, 2020 Roll Left & Right (QC): 6 Sit to Lying (QC): 6 Lying-Sitting on Side/Bed(QC): 6 Sit to Stand (QC): 6 Chair/Klj-oq-Hpuww Xfer(QC): 5 Toilet Transfer (QC): 5 Car Transfer (QC): 5 Does the Patient Walk: Yes Walk 10 feet (QC): 5 Walk 50ft with 2 Turns (QC): 5 Walk 150 ft (QC): 5 Walking 10ft on Uneven Surface: 5 1 Step (curb) (QC): 4 4 Steps (QC): 4 12 Steps (QC): 88 Picking up an Object (QC): 88 Wheel 50 feet with 2 turns (QC: 9 Wheel 150 feet: 9 PT Plan Problem List Problem List: Activity Tolerance, Functional Strength, Safety, Balance, Gait, Transfer, Bed Mobility, ROM Treatment/Plan Treatment Plan: Continue Plan of Care Treatment Plan: Bed Mobility, Education, Functional Activity Remy, Functional Strength, Group Therapy, Gait, Safety, Therapeutic Exercise, Transfers Treatment Duration: Dec 01, 2020 Frequency: At least 5 of 7 days/Wk (IRF) Estimated Hrs Per Day: 1.5 hours per day Patient and/or Family Agrees t: Yes Safety Risks/Education Patient Education: Gait Training, Transfer Techniques, Steps, Correct Positioning, Safety Issues Teaching Recipient: Patient Teaching Methods: Demonstration, Discussion Response to Teaching: Reinforcement Needed Discharge Recommendations Plan Patient will perform bed mobility and transfer training, balance and endurance training, functional strengthening, stair training, gait training, and education, to improve functional mobility and independence at home. Therapy Discharge Recommendati: Home & Family, Post Acute PT Time/GCodes Time In: 1114 Time Out: 121 Total Billed Treatment Time: 50 Total Billed Treatment 1 visit EVM 10' FA 40' (only charge 2 units) PT eval from [id number], OT eval from [id number], co-treat from [id number] PT performed bed mobility and transfers, ambulation, stairs, standing and safety positioning during bathing and dressing and ADL's, OT performed bathing, dressing, ADL's, UE positioning and safety during activity. JENA LAKHANI PT Nov 10, 2020 12:49
--- NOTE | 2020-11-10 12:50 | Occupational Ther Daily Note ---
OT Current Status-Daily Note Subjective Pt alert, working with PT. Took over care from OTR/L. Co-treat with PT ([id number]), 2 clinicians required for skilled care and instruction for decreasing fall risk, increasing mobility during functional tasks. PT focusing on transfers, mobility while OT focusing on ADLs and functional mobility. Pt c/o pain but does not rate. Mental Status/Objective Patient Orientation: Person, Place, Time, Situation Attachments: IV ADL-Treatment Session 1 ([id number]) Pt agrees to shower. Pt ambulated to bathroom with PT using FWW. Transferred to toilet with CGA, off of toilet with SBA. Pt able to manipulate clothing using grabbar to stabilize then cleanses sitting on toilet. Transferred into shower using FWW with SBA. Completed shower sitting on shower bench using grabbars and hand held shower. Pt required verbal cue to cleanse buttocks thoroughly, stood using grabbars with SBA for safety. Pt able to doff footwear self. Donned lower body clothing with SBA, will introduce lower body dressing equipment during next session. Pt declined completing oral care, stating that she does not have any teeth. Pt demonstrates ability to complete upper body dressing by self after set up. Pt ambulated to sink with PT using FWW to comb hair. Ambulated with PT using hand hold assist back to bed. Pt able to go from EOB to supine independently. After session, pt lying in bed with call lgiht/phone in reach. Session 2 ([id number]) Pt. lying in bed alert agrees to therapy. Pt is eating lunch in bed. Pt independent with eating. Education with LE dressing equipment demonstration/verbalization. Pt. verbalized understanding, demonstrated using sock aid to don R grippy sock. Therapy Code Descriptions/Definitions Functional Summit Measure: 0=Not Assessed/NA 4=Minimal Assistance 1=Total Assistance 5=Supervision or Setup 2=Maximal Assistance 6=Modified [place] 3=Moderate Assistance 7=Complete IndependenceSCALE: Activities may be completed with or without assistive devices. 9-Suxwjjppeg-hlvzlwx completes the activity by him/herself with no assistance from a helper. 5-Set-up or Clean-up Assistance-helper sets up or cleans up; patient completes activity. Lenore assists only prior to or following the activity. 4-Supervision or Touching Assistance-helper provides verbal cues and/or touc gino/steadying and/or contact guard assistance as patient completes activity. Assistance may be provided throughout the activity or intermittently. 3-Partial/Moderate Assistance-helper does LESS THAN HALF the effort. Lenore lifts, holds or supports trunk or limbs, but provides less than half the effort. 2-Substantial/Maximal Assistance-helper does MORE THAN HALF the effort. Lenore lifts or holds trunk or limbs and provides more than half the effort. 0-Muiucwuxm-lgpirx does ALL the effort. Patient does none of the effort to complete the activity. Or, the assistance of 2 or more helpers is required for the patient to complete the activity. If activity was not attempted, code reason: 7-Patient Refused. 9-Not Applicable-not attempted and the patient did not perform the activity before the current illness, exacerbation or injury. 10-Not Attempted due to Environmental Limitations-(lack of equipment, weather restraints, etc.). 88-Not Attempted due to Medical Conditions or Safety Concerns. Eating (QC): 6 Oral Hygiene (QC): 9 Shower/Bathe Self (QC): 4 Upper Body Dressing (QC): 5 Lower Body Dressing (QC): 4 On/Off Footwear: 4 (supervision) Toileting Hygiene (QC): 4 Toilet Transfer (QC): 4 Pt rushes through tasks and is frustrated quickly. Pt impulsive during session. Other Treatment Session 2 -Pt. participated in R/L UE exercises bicep curls and tricep extensions holding a dowel phillip 10x's each exercise. R wrist pronation/supination, flex/ext, radial/ulnar deviation 10x's each exercise. Pt. declined doing another set of ex's due to lethargy. Pt. in bed call light/phone in reach. All needs met in room. OT Short Term Goals Short Term Goals Eatin Oral hygiene: 9 Toileting hygiene: 4 Shower/bathe self: 4 Upper body dressin Lower body dressin Putting on/taking off footwear: 4 OT Care Home Goals Cabinet Professional Goals Eating (QC): 6 Oral Hygiene (QC): 9 Toileting Hygiene (QC): 6 Shower/Bathe Self (QC): 6 Upper Body Dressing (QC): 6 Lower Body Dressing (QC): 6 On/Off Footwear (QC): 6 1=Demonstrate adherence to instructed precautions during ADL tasks. 2=Patient will verbalize/demonstrate understanding of assistive devices/modifications for ADL. 3=Patient will improve strength/tolerance for activity to enable patient to per form ADL's. OT Education/Plan Problem List/Assessment Assessment: Decreased Activ Tolerance, Decreased Safety Aware, Decreased UE Strength, Impaired Self-Care Skills, Restricted Funct UE ROM Discharge Recommendations Plan/Recommendations: Continue POC Treatment Plan/Plan of Care Patient would benefit from OT for education, treatment and training to promote independence in ADL's, mobility, safety and/or upper extremity function for ADL's. Plan of Care: ADL Retraining, Functional Mobility, Group Exercise/Act as Ind, UE Funct Exercise/Act Treatment Duration: Nov 24, 2020 Frequency: At least 5 of 7 days/Wk (IRF) Estimated Hrs Per Day: 1.5 hours per day Agreement: Yes Rehab Potential: Fair Time/GCodes Start Time: 11:35 (1250) Stop Time: 12:15 (1330) Total Time Billed (hr/min): 80 Billed Treatment Time 1 visit ([id number])- ADL 3 (40 min) Co-treat with PT [id number] 1 visit ([id number] )- ADL 2 (30 min), Ex (10 min) TRUPTI COLLIER Nov 10, 2020 12:50
[2020-11-10] MEDS: inSUlin ASPART (NovoLOG) 1 UNIT/0.01 ML (CHARGE PER UNIT) SC SCH ×3 (13:16→20:53)
[2020-11-10] MEDS: HYDROcodone/APAP 7.5 MG/325 MG (LORTAB, LORCET PLUS) TABLET PO PRN ×2 (13:44→20:50)
[2020-11-10] MEDS: GABAPENTIN 300 MG (NEURONTIN) CAP PO SCH ×2 (13:44→20:50)
[2020-11-10] MEDS: ENOXAPARIN 40 MG/0.4 ML (LOVENOX) SYR SC SCH (13:44)
--- NOTE | 2020-11-10 14:07 | Physical Therapy Daily Note ---
PT Daily Note-Current Subjective Pt in bed and agrees to tx. Pt states pain 10/10 on back and L shoulder, RN notified. Pain Numeric Pain Scale: 10-Worst Possible Pain Location Body Site: Back Mental Status Patient Orientation: Person, Place, Time, Situation Transfers SCALE: Activities may be completed with or without assistive devices. 3-Mldpcalhnv-fhhlcmm completes the activity by him/herself with no assistance from a helper. 5-Set-up or Clean-up Assistance-helper sets up or cleans up; patient completes activity. Blessing assists only prior to or following the activity. 4-Supervision or Touching Assistance-helper provides verbal cues and/or touching/steadying and/or contact guard assistance as patient completes activity. Assistance may be provided throughout the activity or intermittently. 3-Partial/Moderate Assistance-helper does LESS THAN HALF the effort. Blessing lifts, holds or supports trunk or limbs, but provides less than half the effort. 2-Substantial/Maximal Assistance-helper does MORE THAN HALF the effort. Blessing lifts or holds trunk or limbs and provides more than half the effort. 9-Ymljsrczk-oqvfxw does ALL the effort. Patient does none of the effort to complete the activity. Or, the assistance of 2 or more helpers is required for the patient to complete the activity. If activity was not attempted, code reason: 7-Patient Refused. 9-Not Applicable-not attempted and the patient did not perform the activity before the current illness, exacerbation or injury. 10-Not Attempted due to Environmental Limitations-(lack of equipment, weather restraints, etc.). 88-Not Attempted due to Medical Conditions or Safety Concerns. Sit to Lying (QC): 5 Lying to Sitting/Side of Bed(Q: 5 Sit to Stand (QC): 4 Gait Training Does the Patient Walk?: Yes Distance: 75' x2 Walk 10 feet (QC): 4 Walk 50 ft with 2 Turns(QC): 4 Gait Persons Needed: 1 Gait Assistive Device: FWW Wheelchair Training Does the Pt Use a Wheelchair?: No Exercises Seated Therapy Exercises: Ankle pumps, Sit to stand, Long arc quads, Hamstring Curls, Hip abd/add Seated Reps: 10 Treatments Pt performs supine to sit SBA, and sit to stand CGA. Pt amb w/ FWW and Cameron from room to therapy gym. Pt has quick, unsteady gait with some LOB corrected by ONLINE MARKETING MANAGER. Pt sits in therapy room and completes seated ex. Pt amb back to room and takes seated RB in recliner. Pt performs static standing balance activity, reaching for cones places on bedside table and handing them to ONLINE MARKETING MANAGER on opposite side. Pt completed reaching activity w/ 5 cones, x2 for each side. Pt took seated RB, then amb back to bed. Pt able to sit EOB to supine SBA, pt left with all needs met and call light in hand. Assessment Current Status: Fair Progress Pt limited by pain, weakness, and fatigue. Pt has poor balance PT Short Term Goals Short Term Goals Time Frame: Nov 17, 2020 Roll Left & Right: 6 Sit to lyin Lying to sitting on side of be: 5 Sit to stand: 4 Chair/dyr-mn-hlfkb transfer: 4 Walk 10 feet: 4 Walk 50 feet with two turns: 4 Walk 150 feet: 4 PT [place] Operator Goals Group Home Goals PT Group Home Goals Time Frame: Dec 01, 2020 Roll Left & Right (QC): 6 Sit to Lying (QC): 6 Lying-Sitting on Side/Bed(QC): 6 Sit to Stand (QC): 6 Chair/Jvk-mu-Ctjvg Xfer(QC): 5 Toilet Transfer (QC): 5 Car Transfer (QC): 5 Does the Patient Walk: Yes Walk 10 feet (QC): 5 Walk 50ft with 2 Turns (QC): 5 Walk 150 ft (QC): 5 Walking 10ft on Uneven Surface: 5 1 Step (curb) (QC): 4 4 Steps (QC): 4 12 Steps (QC): 88 Picking up an Object (QC): 88 Wheel 50 feet with 2 turns (QC: 9 Wheel 150 feet: 9 PT Plan Problem List Problem List: Activity Tolerance, Functional Strength, Safety, Balance, Gait Treatment/Plan Treatment Plan: Continue Plan of Care Treatment Plan: Bed Mobility, Education, Functional Activity Remy, Functional Strength, Group Therapy, Gait, Safety, Therapeutic Exercise, Transfers Treatment Duration: Dec 01, 2020 Frequency: At least 5 of 7 days/Wk (IRF) Estimated Hrs Per Day: 1.5 hours per day Patient and/or Family Agrees t: Yes Time/GCodes Time In: 1330 Time Out: 1410 Total Billed Treatment Time: 40 Total Billed Treatment 1, NM, GT, EX ALDO,[facility] ONLINE MARKETING MANAGER Nov 10, 2020 14:07
[2020-11-10] MEDS ORDERED: inSUlin ASPART (NovoLOG) 1 UNIT/0.01 ML (CHARGE PER UNIT) SC SCH (16:00)
[2020-11-10] MEDS: CELECOXIB 100 MG (CeleBREX) CAP PO SCH (16:54)
[2020-11-10] MEDS: SIMvastatin 10 MG (ZOCOR) TAB PO SCH (16:54)
[2020-11-10] MEDS: LOSARTAN 50 MG (COZAAR) TAB PO SCH (16:55)
[2020-11-10] MEDS ORDERED: NON-FORMULARY MEDICATION 1 EA EA (Lovastatin 20 MG) PO SCH (18:00)
[2020-11-10] MEDS ORDERED: INSULIN DEGLUDEC 110 UNIT SQ SCH (18:00)
[2020-11-10] MEDS ORDERED: NON-FORMULARY MEDICATION 1 EA EA (Celecoxib (Celebrex) 200 MG) PO SCH (18:00)
[2020-11-10 19:35] VITALS: BP 128/75
[2020-11-10] MEDS: MECLIZINE 25 MG (ANTIVERT) TAB PO SCH (20:49)
[2020-11-10] MEDS: AMITRIPTYLINE 50 MG (ELAVIL) TAB PO SCH (20:50)
[2020-11-10] MEDS: polyethylene glycoL POWDER 17 GM (MIRALAX) PACK PO SCH (20:52)
[2020-11-10] MEDS: SENNA W/DOCUSATE (SENOKOT S) TABLET PO SCH (20:53)
[2020-11-10] MEDS ORDERED: NON-FORMULARY MEDICATION 1 EA EA (Amitriptyline HCl 100 MG) PO SCH (21:00)
[2020-11-11 06:07] LABS: BASOPHILS # (AUTO) 0.1 10^3/uL (0.0-0.1); BASOPHILS % (AUTO) 1 % (0-10); EOSINOPHILS # (AUTO) 0.3 10^3/uL (0.0-0.3); EOSINOPHILS % (AUTO) 3 % (0-10); HEMATOCRIT 40 % (35-52); HEMOGLOBIN 12.4 g/dL (11.5-16.0); LYMPHOCYTES # (AUTO) 2.1 10^3/uL (1.0-4.0); LYMPHOCYTES % (AUTO) 22 % (12-44); MEAN CORPUSCULAR HEMOGLOBIN 27 pg (25-34); MEAN CORPUSCULAR HGB CONC 31 g/dL (32-36); MEAN CORPUSCULAR VOLUME 85 fL (80-99); MEAN PLATELET VOLUME 9.8 fL (9.0-12.2); MONOCYTES # (AUTO) 0.6 10^3/uL (0.0-1.0); MONOCYTES % (AUTO) 6 % (0-12); NEUTROPHILS # (AUTO) 6.5 10^3/uL (1.8-7.8); NEUTROPHILS % (AUTO) 68 % (42-75); PLATELET COUNT 245 10^3/uL (130-400); WHITE BLOOD COUNT 9.5 10^3/uL (4.3-11.0)
--- NOTE | 2020-11-11 06:07 | Individualized Plan of Care ---
Individualized Plan of Care Rehab Nursing IPOC Order Admission Date Nov 10, 2020 at 11:15 Current Orders Orders Admission Order(Inpt,Obs,Sdc) (11/10/20 10:34) Vital Signs: Per Unit Policy ( 08,16,00 (11/10/20 10:34) Heavy Cleaner-Inpt Rehab Con (11/10/20 10:34) Rehab Nursing Orders-Ipoc (11/10/20 10:34) Physical Therapy Rehab Orders (11/10/20 10:34) Occupational Therapy Rehab Ord (11/10/20 10:34) Speech Therapy Rehab Orders (11/10/20 10:34) Cbc With Automated Diff (11/11/20 06:00) Comprehensive Metabolic Panel (11/11/20 06:00) Precautions (Aru) (11/10/20 10:34) Rehab-Intensity Of Therapy (11/10/20 10:34) Initiate Admission Nursing Pro .admission (11/10/20 10:34) Alprazolam Tablet (Xanax Tablet) (11/10/20 10:45) Calcium Carbonate Chew Tablet (Antacid C (11/10/20 10:45) Diphenhydramine Tablet (Benadryl Tablet) (11/10/20 10:45) Docusate Sodium Capsule (Colace Capsule) (11/10/20 10:45) Bisacodyl Suppository (Dulcolax Supposit (11/10/20 10:45) Lactulose Oral Solution (Enulose Oral So (11/10/20 10:45) Na Phos/Na Biphos Enema (Fleet Enema Evan (11/10/20 10:45) Guaifenesin/Codeine Syrup (Robitussin Ac (11/10/20 10:45) Loperamide Tablet (Imodium Tablet) (11/10/20 10:45) Enoxaparin Injection (Lovenox Injection) (11/10/20 14:00) Melatonin Tablet (Melatonin Tablet) (11/10/20 10:45) Polyethylene Glycol Powder Pkt (Miralax (11/10/20 21:00) Ondansetron Oral Dissolve Tab (Zofran (11/10/20 10:45) Senna S Tablet (Senokot S Tablet) (11/10/20 21:00) Initiate Admission Nursing Pro .admission (11/10/20 10:34) Code/Resuscitation (11/10/20 10:34) Admission Arrival Bed Request (11/10/20 11:23) Cho 75g/M 0snack (21-2400 Yves) (11/10/20 Lunch) Accucheck Achs ACHS (11/10/20 12:41) Aspirin Enteric Coated Tablet (Ecotrin T (11/11/20 09:00) Calcium Carbonate Tablet (Calcarb 600 Ta (11/11/20 08:00) Rx-Cyclobenzaprine Tablet (Rx-Flexeril T (11/10/20 12:45) Famotidine Tablet (Pepcid Tablet) (11/10/20 12:45) Gabapentin Capsule/Tablet (Neurontin Cap (11/10/20 13:00) Hydrocodone/Apap 7.5/325 Tab (Lortab 7. (11/10/20 12:45) Insulin Determir 10 Ml Vial (Levemir 10 (11/11/20 09:00) Losartan Tablet (Cozaar Tablet) (11/10/20 18:00) Meclizine Tablet (Antivert Tablet) (11/10/20 21:00) (Nf) Amitriptyline Hcl (11/10/20 21:00) (Nf) Celecoxib (Celebrex) (11/10/20 18:00) (Nf) Insulin Degludec (Tresiba Flextouch (11/10/20 18:00) (Nf) Liraglutide (Victoza 3-Jn) (11/11/20 09:00) (Nf) Lovastatin (11/10/20 18:00) Insulin Aspart (Novolog) (Novolog (Charg (11/10/20 16:00) Amitriptyline Tablet (Elavil Tablet) (11/10/20 21:00) Insulin Determir (Per Unit) (Levemir (Pe (11/10/20 18:00) Insulin Determir (Per Unit) (Levemir (Pe (11/11/20 07:00) Celecoxib Capsule (Celebrex Capsule) (11/10/20 18:00) Cyclobenzaprine Tablet (Flexeril Tablet) (11/10/20 13:15) Insulin Aspart (Novolog) (Novolog (Charg (11/10/20 13:15) Simvastatin Tablet (Zocor Tablet) (11/10/20 18:00) Patient Visit (11/10/20 ) Pt Gisselal Moderate Complexity (11/10/20 ) Functional Activities, Ea 15 (11/10/20 ) Patient Visit (11/10/20 ) Ex Neuromuscular, Ea 15 Min (11/10/20 ) Gait Training, Ea 15 Min (11/10/20 ) Exercise Therap, Ea 15 Min (11/10/20 ) Insulin Determir (Per Unit) (Levemir (Pe (11/11/20 18:00) Patient Visit (11/11/20 ) Exercise Therap, Ea 15 Min (11/11/20 ) Functional Activities, Ea 15 (11/11/20 ) Heating Pad (11/11/20 19:58) Rehab Nursing Orders: Ongoing Assess. of Cognitive Status, Ongoing Assess. of Function Status, Bladder Management, Bladder Scan, Bladder Training, Bowel Management, Bowel Training, Disease Management & Educaiton, DVT Prophylaxis, Fall Prevention, Fluid/Electrolyte/Nutrition Mgmt, Infection Prevention, Medication Management & Education, Management of Risks & Complications, Nutrition Management, Pain Management, Patient/Family Support, Safety Management, Swallow Precautions Intensity of Therapy to be met Patient to be seen: Min.3h per day/5 of 7d PT IPOC Problem List: Activity Tolerance, Functional Strength, Safety, Balance, Gait Treatment Plan: Continue Plan of Care Bed Mobility, Education, Functional Activity Remy, Functional Strength, Group Therapy, Gait, Safety, Therapeutic Exercise, Transfers Treatment Duration: Dec 01, 2020 Frequency: At least 5 of 7 days/Wk (IRF) Estimated Hrs Per Day: 1.5 hours per day OT IPOC Problems: Decreased Activ Tolerance, Decreased Safety Aware, Decreased UE Strength, Impaired Self-Care Skills, Restricted Funct UE ROM OT Treatment, Training and Edu: Yes Plan of Care: ADL Retraining, Functional Mobility, Group Exercise/Act as Ind, UE Funct Exercise/Act Treatment Duration: Nov 24, 2020 Frequency: At least 5 of 7 days/Wk (IRF) Estimated Hrs Per Day: 1.[address] IPOC Speech Therapy Treatment Plan: Discontinue ST Treatment Duration: Nov 11, 2020 Frequency: Modified Program (IRF) Estimated Hrs Per Day: Other Heavy Cleaner/Case Mgmt Heavy Cleaner/Case Managemen: Discharge Planning Dietitian/Line Crew Supervisor Dietitian/Line Crew Supervisor to monitor nutritional status and make changes and/or recommendations as needed and work with speech pathology on dietary upgrades as the occur. Physician IPOC Medical Issues being managed closely and that require the 24 hour availability of a physician: Patient with recent multiple falls with compression fracture and uwd-qg-kriiezx diabetes will require close monitoring and adjustment of multiple medications Medical Issues: Bowel/Bladder Function, DVT Prophylaxis, Falls Precautions, Fluid/Electrolyte/Nutrition Balance, Infection Protection, Pain Management Brief Synthesis of Preadmission Screen, Post-Admission Evaluation, and Therapy Evaluations: PT and OT will focus on regaining stamina with ambulatory skills along with fall risk prevention and increase independence in ADLs to return to independent living Medical Prognosis: Good Anticipated Length of Stay: 10 days KATELYNN VÁZQUEZ DO Nov 11, 2020 06:07
--- NOTE | 2020-11-11 06:07 | PM&R Progress Note ---
Subjective HPI/CC On Admission Date Seen by Provider: Nov 11, 2020 Time Seen by Provider: 12:30 Subjective/Events-last exam 11/11/2020: Patient doing pretty well Lower blood sugars have prompted me to decrease insulin Very compliant with carb limited diet here K pad to back has been helpful Bowels are moving Check meds and labs Creatinine 1.37 Review of Systems General: Fatigue Musculoskeletal: back pain Neurological: Weakness, Incoordination Objective Exam Vital Signs Vital Signs Date Time Temp Pulse Resp B/P (MAP) Pulse Ox O2 Delivery O2 Flow Rate FiO2 11/11/20 20:33 36.3 89 16 117/88 (98) 95 11/11/20 09:16 Room Air Capillary Refill : General Appearance: No Apparent Distress, WD/WN, Chronically ill, Obese HEENT: PERRL/EOMI, Normal ENT Inspection, Pharynx Normal Neck: Full Range of Motion, Normal Inspection, Non Tender, Supple, Carotid Bruit Respiratory: Chest Non Tender, Lungs Clear, Normal Breath Sounds, No Accessory Muscle Use, No Respiratory Distress Cardiovascular: Regular Rate, Rhythm, No Edema, No Gallop, No JVD, No Murmur, N ormal Peripheral Pulses Gastrointestinal: Normal Bowel Sounds, No Organomegaly, No Pulsatile Mass, Non Tender, Soft Back: Normal Inspection, Decreased Range of Motion, Muscle Spasm, Vertebral Tenderness Extremity: Normal Capillary Refill, Normal Inspection, Normal Range of Motion, Non Tender, No Calf Tenderness, No Pedal Edema Neurologic/Psychiatric: Alert, Oriented x3, curb builder II-XII Norm as Tested, Abnormal Gait, Depressed Affect, Motor Weakness (Generalized) Skin: Normal Color, Warm/Dry Lymphatic: No Adenopathy Results/Procedures Lab Laboratory Tests 11/11/20 05:15 Patient resulted labs reviewed. FIM Transfers Therapy Code Descriptions/Definitions Functional [place] Measure: 0=Not Assessed/NA 4=Minimal Assistance 1=Total Assistance 5=Supervision or Setup 2=Maximal Assistance 6=Modified [place] 3=Moderate Assistance 7=Complete IndependenceSCALE: Activities may be completed with or without assistive devices. 7-Buuzkiampm-qplwnfb completes the activity by him/herself with no assistance f rom a helper. 5-Set-up or Clean-up Assistance-helper sets up or cleans up; patient completes activity. [place] assists only prior to or following the activity. 4-Supervision or Touching Assistance-helper provides verbal cues and/or touching/steadying and/or contact guard assistance as patient completes activity. Assistance may be provided throughout the activity or intermittently. 3-Partial/Moderate Assistance-helper does LESS THAN HALF the effort. [place] lifts, holds or supports trunk or limbs, but provides less than half the effort. 2-Substantial/Maximal Assistance-helper does MORE THAN HALF the effort. [place] lifts or holds trunk or limbs and provides more than half the effort. 3-Kwulcpzxm-mvaxja does ALL the effort. Patient does none of the effort to complete the activity. Or, the assistance of 2 or more helpers is required for the patient to complete the activity. If activity was not attempted, code reason: 7-Patient Refused. 9-Not Applicable-not attempted and the patient did not perform the activity before the current illness, exacerbation or injury. 10-Not Attempted due to Environmental Limitations-(lack of equipment, weather restraints, etc.). 88-Not Attempted due to Medical Conditions or Safety Concerns. Roll Left to Right (QC): 6 Sit to Lying (QC): 5 Sit to Stand (QC): 4 Chair/Ksy-an-Qdtjf Xfer(QC): 3 Car Transfer (QC): 3 Gait Training Does the Patient Walk?: Yes Distance: 75' x2 Walk 10 feet (QC): 4 Walk 50 ft with 2 Turns(QC): 4 Walk 150 ft (QC): 88 Walking 10ft/uneven surface-QC: 3 Gait Persons Needed: 1 Gait Assistive Device: FWW Wheelchair Training Does the Pt Use a Wheelchair?: No Wheel 50 ft with 2 turns (QC): 9 Wheel 150 ft (QC): 9 Stair Training #of Steps: 1 1 Step (curb) (QC): 3 4 Steps (QC): 88 12 Steps (QC): 88 Balance Picking up an Object (QC): 88 ADL-Treatment Eating (QC): 6 Oral Hygiene (QC): 9 Shower/Bathe Self (QC): 4 Upper Body Dressing (QC): 5 Lower Body Dressing (QC): 4 On/Off Footwear (QC): 4 (supervision) Toileting Hygiene (QC): 4 Toilet Transfer (QC): 4 Assessment/Plan Assessment and Plan Assess & Plan/Chief Complaint Assessment: Debility Multiple falls Current subacute T12 compression fracture sustained in fall Right olecranon injury Diabetes mellitus [id number] Noncompliant with diabetic diet Plan: Supportive care Fall risk prevention Aggressive therapy regimen 11/11/2020: Decrease insulin to prevent hypoglycemia Pain control Monitor closely (1) Debility (2) Diabetes mellitus, insulin dependent (IDDM), uncontrolled (3) Weakness Status: Acute (4) T12 compression fracture Status: Acute (5) Fall (on) (from) other stairs and steps, initial encounter Status: Acute (6) Back pain Status: Acute KATELYNN VÁZQUEZ DO Nov 11, 2020 06:07
[2020-11-11 06:21] LABS: ALBUMIN 3.8 GM/DL (3.2-4.5)
[2020-11-11 06:22] LABS: POTASSIUM 4.4 MMOL/L (3.6-5.0)
[2020-11-11 06:23] LABS: CALCIUM 10.7 MG/DL (8.5-10.1)
[2020-11-11 06:24] LABS: TOTAL PROTEIN 7.8 GM/DL (6.4-8.2)
[2020-11-11 06:26] LABS: BILIRUBIN,TOTAL 0.3 MG/DL (0.1-1.0)
[2020-11-11 06:28] LABS: CREATININE SERUM 1.35 MG/DL (0.60-1.30)
[2020-11-11] MEDS: inSUlin ASPART (NovoLOG) 1 UNIT/0.01 ML (CHARGE PER UNIT) SC SCH ×4 (06:33→21:00)
[2020-11-11 07:45] VITALS: BP 156/84
[2020-11-11] MEDS: polyethylene glycoL POWDER 17 GM (MIRALAX) PACK PO SCH ×2 (08:20→21:00)
[2020-11-11] MEDS: MECLIZINE 25 MG (ANTIVERT) TAB PO SCH ×2 (08:45→21:13)
[2020-11-11] MEDS: ASPIRIN E.C. 81 MG (ECOTRIN) TAB PO SCH (08:45)
[2020-11-11] MEDS: GABAPENTIN 300 MG (NEURONTIN) CAP PO SCH ×3 (08:45→21:13)
[2020-11-11] MEDS: CALCIUM CARBONATE 600 MG (CALCARB) TAB PO SCH (08:45)
[2020-11-11] MEDS: HYDROcodone/APAP 7.5 MG/325 MG (LORTAB, LORCET PLUS) TABLET PO PRN ×2 (08:46→21:13)
[2020-11-11] MEDS ORDERED: NON-FORMULARY MEDICATION 1 EA EA (Liraglutide (Victoza 3-Pak) 1.8 MG) SC SCH (09:00)
--- NOTE | 2020-11-11 09:06 | Occupational Ther Daily Note ---
OT Current Status-Daily Note Subjective Pt reports 10/10 pain in back. Unable to recall time of last pain meds. RN informed. Pt agreeable to therapy. Mental Status/Objective Patient Orientation: Person, Place, Situation ADL-Treatment Pt ambulated within room and to/from therapy gym with SBA- CGA and use of walker. Speedy gait. Cues for pacing and walker management. As pt fatigues, she has a tendency to increase speed/fall risk as she attempts to reach destination. Pt able to stand/lower from toilet with SBA-CGA. Impulsive with standing and requires reminders to call for assist prior to getting up. She stood at the sink for grooming tasks, close sup. Therapy Code Descriptions/Definitions Functional [place] Measure: 0=Not Assessed/NA 4=Minimal Assistance 1=Total Assistance 5=Supervision or Setup 2=Maximal Assistance 6=Modified [place] 3=Moderate Assistance 7=Complete IndependenceSCALE: Activities may be completed with or without assistive devices. 4-Kifudkagbw-wbwpjao completes the activity by him/herself with no assistance from a helper. 5-Set-up or Clean-up Assistance-helper sets up or cleans up; patient completes activity. [place] assists only prior to or following the activity. 4-Supervision or Touching Assistance-helper provides verbal cues and/or touching/steadying and/or contact guard assistance as patient completes activity. Assistance may be provided throughout the activity or intermittently. 3-Partial/Moderate Assistance-helper does LESS THAN HALF the effort. [place] lifts, holds or supports trunk or limbs, but provides less than half the effort. 2-Substantial/Maximal Assistance-helper does MORE THAN HALF the effort. [place] lifts or holds trunk or limbs and provides more than half the effort. 4-Sinsdwjsv-maqodk does ALL the effort. Patient does none of the effort to complete the activity. Or, the assistance of 2 or more helpers is required for the patient to complete the activity. If activity was not attempted, code reason: 7-Patient Refused. 9-Not Applicable-not attempted and the patient did not perform the activity before the current illness, exacerbation or injury. 10-Not Attempted due to Environmental Limitations-(lack of equipment, weather restraints, etc.). 88-Not Attempted due to Medical Conditions or Safety Concerns. Toileting Hygiene (QC): 4 Toilet Transfer (QC): 4 Other Treatment Pt participated in multiple standing tasks with goal to improve standing tolerance, endurance, balance, functional reach, posture and body mechanics needed for homemaking tasks. After discussion and demonstration on proper body mechanics, pt retrieved angela bags from different heightened surfaces. Education on using legs vs back. Pt only able to perform 1/2 squat and unable to retrieve any bags from low surface. Requires single UE support on counter during activity. To promote increased LE strength, pt stood on foam pad while reaching with RUE to place clothespins onto vertical wall. Cues for widening GEOFFREY. As pt fatigues, she has tendency to sink further into flexion. Cues for upright posture and knee extension. Several seated rest breaks needed throughout activities secondary to fatigue and pain. Education on energy conservation and adaptations to home environment during IADLs. Education OT Patient Education: Correct positioning, Disease process, Energy conservation, Modified ADL techniques, Progress toward Goal/Update tx plan, Purpose of tx/functional activities, Reviewed precautions, Rehab process, Safety issues, Transfer techniques Teaching Recipient: Patient Teaching Methods: Demonstration, Discussion Response to Teaching: Verbalize Understanding, Return Demonstration, Reinforcement Needed OT Short Term Goals Short Term Goals Eatin Oral hygiene: 9 Toileting hygiene: 4 Shower/bathe self: 4 Upper body dressin Lower body dressin Putting on/taking off footwear: 4 OT Plastics Spreading Machine Operator Goals Mcfp Goals Eating (QC): 6 Oral Hygiene (QC): 9 Toileting Hygiene (QC): 6 Shower/Bathe Self (QC): 6 Upper Body Dressing (QC): 6 Lower Body Dressing (QC): 6 On/Off Footwear (QC): 6 1=Demonstrate adherence to instructed precautions during ADL tasks. 2=Patient will verbalize/demonstrate understanding of assistive devices/modifications for ADL. 3=Patient will improve strength/tolerance for activity to enable patient to perform ADL's. OT Education/Plan Problem List/Assessment Assessment: Decreased Activ Tolerance, Decreased Safety Aware, Decreased UE Strength, Impaired Coordination, Impaired Funct Balance, Impaired I ADL's, Impaired Self-Care Skills, Restricted Funct UE ROM Discharge Recommendations Plan/Recommendations: Continue POC Treatment Plan/Plan of Care Treatment,Training & Education: Yes Patient would benefit from OT for education, treatment and training to promote independence in ADL's, mobility, safety and/or upper extremity function for ADL's. Plan of Care: ADL Retraining, Functional Mobility, Group Exercise/Act as Ind, UE Funct Exercise/Act Treatment Duration: Nov 24, 2020 Frequency: At least 5 of 7 days/Wk (IRF) Estimated Hrs Per Day: 1.5 hours per day Agreement: Yes Rehab Potential: Fair Time/GCodes Start Time: 07:50 Stop Time: 09:00 Total Time Billed (hr/min): 70 Billed Treatment Time 1, ADL (10 min), FA x4 (60 min) Nenita Reyna OT Nov 11, 2020 09:06
[2020-11-11] MEDS: SENNA W/DOCUSATE (SENOKOT S) TABLET PO SCH ×2 (09:23→21:13)
--- NOTE | 2020-11-11 10:12 | Physical Therapy Daily Note ---
PT Daily Note-Current Subjective Patient in recliner pre tx, agrees to PT, has 10/10 pain (nurse aware and she gets pain meds). Patient is very tired/drowsy. Appearance Patient in recliner post tx with nurse call, phone, tray, all needs met, chair alarm on. Mental Status Patient Orientation: Person, Place, Situation Transfers SCALE: Activities may be completed with or without assistive devices. 8-Gulqeyvvlk-lvagvws completes the activity by him/herself with no assistance from a helper. 5-Set-up or Clean-up Assistance-helper sets up or cleans up; patient completes activity. [place] assists only prior to or following the activity. 4-Supervision or Touching Assistance-helper provides verbal cues and/or touching/steadying and/or contact guard assistance as patient completes activity. Assistance may be provided throughout the activity or intermittently. 3-Partial/Moderate Assistance-helper does LESS THAN HALF the effort. [place] lifts, holds or supports trunk or limbs, but provides less than half the effort. 2-Substantial/Maximal Assistance-helper does MORE THAN HALF the effort. [place] lifts or holds trunk or limbs and provides more than half the effort. 8-Mmtdfxwoj-ehdrfe does ALL the effort. Patient does none of the effort to complete the activity. Or, the assistance of 2 or more helpers is required for the patient to complete the activity. If activity was not attempted, code reason: 7-Patient Refused. 9-Not Applicable-not attempted and the patient did not perform the activity before the current illness, exacerbation or injury. 10-Not Attempted due to Environmental Limitations-(lack of equipment, weather restraints, etc.). 88-Not Attempted due to Medical Conditions or Safety Concerns. Roll Left & Right (QC): 4 Sit to Lying (QC): 3 Lying to Sitting/Side of Bed(Q: 3 Sit to Stand (QC): 4 Chair/Chu-kh-Nptgb Xfer(QC): 4 min assist for sit to supine, mod assist for supine to sit Gait Training Distance: 120'x2 Walk 10 feet (QC): 4 Walk 50 ft with 2 Turns(QC): 4 Gait Assistive Device: FWW patient is unsteady during ambulation but never quite has a complete loss of balance, needs steadying assist Exercises Supine Ex: Ankle pumps, Quad Set, Glut sets, Short Arc Quads (alternating for 5 min) Supine Reps: 20 Seated Therapy Exercises: Ankle pumps, Long arc quads, Hip flexion, Hip abd/add (with ball and RTB) NuStep Minutes: 15 NuStep Workload: 5 Treatments bed mobility and transfers, ambulation, functional strengthening Assessment Current Status: Fair Progress Patient had a lot of difficulty due to pain, she needs a lot of rest breaks and has some trouble participating because of it. PT Short Term Goals Short Term Goals Time Frame: Nov 17, 2020 Roll Left & Right: 6 Sit to lyin Lying to sitting on side of be: 5 Sit to stand: 4 Chair/wco-jj-uxmfd transfer: 4 Walk 10 feet: 4 Walk 50 feet with two turns: 4 Walk 150 feet: 4 PT Trim Die Maker Goals Trim Die Maker Goals PT Trim Die Maker Goals Time Frame: Dec 01, 2020 Roll Left & Right (QC): 6 Sit to Lying (QC): 6 Lying-Sitting on Side/Bed(QC): 6 Sit to Stand (QC): 6 Chair/Lab-kx-Diioh Xfer(QC): 5 Toilet Transfer (QC): 5 Car Transfer (QC): 5 Does the Patient Walk: Yes Walk 10 feet (QC): 5 Walk 50ft with 2 Turns (QC): 5 Walk 150 ft (QC): 5 Walking 10ft on Uneven Surface: 5 1 Step (curb) (QC): 4 4 Steps (QC): 4 12 Steps (QC): 88 Picking up an Object (QC): 88 Wheel 50 feet with 2 turns (QC: 9 Wheel 150 feet: 9 PT Plan Problem List Problem List: Activity Tolerance, Functional Strength, Safety, Balance, Gait, Transfer, Bed Mobility, ROM Treatment/Plan Treatment Plan: Continue Plan of Care Treatment Plan: Bed Mobility, Education, Functional Activity Remy, Functional Strength, Group Therapy, Gait, Safety, Therapeutic Exercise, Transfers Treatment Duration: Dec 01, 2020 Frequency: At least 5 of 7 days/Wk (IRF) Estimated Hrs Per Day: 1.5 hours per day Patient and/or Family Agrees t: Yes Safety Risks/Education Patient Education: Gait Training, Transfer Techniques, Correct Positioning, Safety Issues Teaching Recipient: Patient Teaching Methods: Demonstration, Discussion Response to Teaching: Reinforcement Needed Time/GCodes Time In: 0900 Time Out: 1015 Total Billed Treatment Time: 75 Total Billed Treatment 1 visit FA 30' EX 45' JENA LAKHANI PT Nov 11, 2020 10:12
--- NOTE | 2020-11-11 12:10 | Occupational Ther Daily Note ---
OT Current Status-Daily Note Subjective Pt agreeable to treatment. Reports fatigue from AM sessions. Mental Status/Objective Patient Orientation: Person, Place, Situation ADL-Treatment Therapy Code Descriptions/Definitions Functional [place] Measure: 0=Not Assessed/NA 4=Minimal Assistance 1=Total Assistance 5=Supervision or Setup 2=Maximal Assistance 6=Modified [place] 3=Moderate Assistance 7=Complete IndependenceSCALE: Activities may be completed with or without assistive devices. 9-Kvlewwqzae-ormxpfo completes the activity by him/herself with no assistance from a helper. 5-Set-up or Clean-up Assistance-helper sets up or cleans up; patient completes activity. [place] assists only prior to or following the activity. 4-Supervision or Touching Assistance-helper provides verbal cues and/or touching/steadying and/or contact guard assistance as patient completes activity. Assistance may be provided throughout the activity or intermittently. 3-Partial/Moderate Assistance-helper does LESS THAN HALF the effort. [place] lifts, holds or supports trunk or limbs, but provides less than half the effort. 2-Substantial/Maximal Assistance-helper does MORE THAN HALF the effort. [place] lifts or holds trunk or limbs and provides more than half the effort. 2-Srotswftz-dobrpe does ALL the effort. Patient does none of the effort to comp lete the activity. Or, the assistance of 2 or more helpers is required for the patient to complete the activity. If activity was not attempted, code reason: 7-Patient Refused. 9-Not Applicable-not attempted and the patient did not perform the activity before the current illness, exacerbation or injury. 10-Not Attempted due to Environmental Limitations-(lack of equipment, weather restraints, etc.). 88-Not Attempted due to Medical Conditions or Safety Concerns. Other Treatment Pt participated in LUE exercises including AROM of wrist/digits and AAROM/PROM of elbow and shoulder. Elbow extension performed within pain free range, ~40 degrees. Education/encouragement on preforming AROM mobilizations as much as tolerated in effort to improve ROM, decrease stiffness/edema and increasing strength. Pt in agreement. Education OT Patient Education: Exercise program, Reviewed precautions Teaching Recipient: Patient Teaching Methods: Demonstration, Discussion Response to Teaching: Verbalize Understanding, Return Demonstration, Reinforcement Needed OT Short Term Goals Short Term Goals Eatin Oral hygiene: 9 Toileting hygiene: 4 Shower/bathe self: 4 Upper body dressin Lower body dressin Putting on/taking off footwear: 4 OT Prison Goals [place] Goals Eating (QC): 6 Oral Hygiene (QC): 9 Toileting Hygiene (QC): 6 Shower/Bathe Self (QC): 6 Upper Body Dressing (QC): 6 Lower Body Dressing (QC): 6 On/Off Footwear (QC): 6 1=Demonstrate adherence to instructed precautions during ADL tasks. 2=Patient will verbalize/demonstrate understanding of assistive devices/modifications for ADL. 3=Patient will improve strength/tolerance for activity to enable patient to perform ADL's. OT Education/Plan Problem List/Assessment Assessment: Decreased Activ Tolerance, Decreased Safety Aware, Decreased UE Strength, Impaired Funct Balance, Impaired I ADL's, Impaired Self-Care Skills, Restricted Funct UE ROM Discharge Recommendations Plan/Recommendations: Continue POC Treatment Plan/Plan of Care Treatment,Training & Education: Yes Patient would benefit from OT for education, treatment and training to promote independence in ADL's, mobility, safety and/or upper extremity function for ADL's. Plan of Care: ADL Retraining, Functional Mobility, Group Exercise/Act as Ind, UE Funct Exercise/Act Treatment Duration: Nov 24, 2020 Frequency: At least 5 of 7 days/Wk (IRF) Estimated Hrs Per Day: 1.5 hours per day Agreement: Yes Rehab Potential: Fair Time/GCodes Start Time: 11:40 Stop Time: 12:00 Total Time Billed (hr/min): 20 Billed Treatment Time 1, EX Nenita Reyna OT Nov 11, 2020 12:10
--- NOTE | 2020-11-11 12:37 | Physical Therapy Daily Note ---
PT Daily Note-Current Subjective Patient in bed pre tx, agrees to PT, states she still has severe pain in back. Appearance Patient in bed post tx with nurse call, phone, tray, all needs met. Bed alarm on. Mental Status Patient Orientation: Person, Place, Situation Transfers SCALE: Activities may be completed with or without assistive devices. 3-Dygwcdeafe-wdhmunu completes the activity by him/herself with no assistance from a helper. 5-Set-up or Clean-up Assistance-helper sets up or cleans up; patient completes activity. [place] assists only prior to or following the activity. 4-Supervision or Touching Assistance-helper provides verbal cues and/or touching/steadying and/or contact guard assistance as patient completes activity. Assistance may be provided throughout the activity or intermittently. 3-Partial/Moderate Assistance-helper does LESS THAN HALF the effort. [place] lift s, holds or supports trunk or limbs, but provides less than half the effort. 2-Substantial/Maximal Assistance-helper does MORE THAN HALF the effort. [place] lifts or holds trunk or limbs and provides more than half the effort. 8-Rgyqxsggp-ikpigh does ALL the effort. Patient does none of the effort to complete the activity. Or, the assistance of 2 or more helpers is required for the patient to complete the activity. If activity was not attempted, code reason: 7-Patient Refused. 9-Not Applicable-not attempted and the patient did not perform the activity before the current illness, exacerbation or injury. 10-Not Attempted due to Environmental Limitations-(lack of equipment, weather restraints, etc.). 88-Not Attempted due to Medical Conditions or Safety Concerns. Exercises Supine Ex: Ankle pumps, Quad Set, Glut sets, Heel Slides, Short Arc Quads, St raight leg raise, Hip abd/add Supine Reps: 20 Treatments LE strengthening Assessment Current Status: Fair Progress Patient needs occasional rest breaks due to fatigue and pain. PT Short Term Goals Short Term Goals Time Frame: Nov 17, 2020 Roll Left & Right: 6 Sit to lyin Lying to sitting on side of be: 5 Sit to stand: 4 Chair/luq-ky-aoetl transfer: 4 Walk 10 feet: 4 Walk 50 feet with two turns: 4 Walk 150 feet: 4 PT Manager [employer] Goals [facility]it[facility]iary Goals PT [facility] Goals Time Frame: Dec 01, 2020 Roll Left & Right (QC): 6 Sit to Lying (QC): 6 Lying-Sitting on Side/Bed(QC): 6 Sit to Stand (QC): 6 Chair/Lpw-yt-Ggaoa Xfer(QC): 5 Toilet Transfer (QC): 5 Car Transfer (QC): 5 Does the Patient Walk: Yes Walk 10 feet (QC): 5 Walk 50ft with 2 Turns (QC): 5 Walk 150 ft (QC): 5 Walking 10ft on Uneven Surface: 5 1 Step (curb) (QC): 4 4 Steps (QC): 4 12 Steps (QC): 88 Picking up an Object (QC): 88 Wheel 50 feet with 2 turns (QC: 9 Wheel 150 feet: 9 PT Plan Problem List Problem List: Activity Tolerance, Functional Strength, Safety, Balance, Gait, Transfer, Bed Mobility, ROM Treatment/Plan Treatment Plan: Continue Plan of Care Treatment Plan: Bed Mobility, Education, Functional Activity Remy, Functional Strength, Group Therapy, Gait, Safety, Therapeutic Exercise, Transfers Treatment Duration: Dec 01, 2020 Frequency: At least 5 of 7 days/Wk (IRF) Estimated Hrs Per Day: 1.5 hours per day Patient and/or Family Agrees t: Yes Safety Risks/Education Patient Education: Correct Positioning, Safety Issues Teaching Recipient: Patient Teaching Methods: Demonstration, Discussion Response to Teaching: Reinforcement Needed Time/GCodes Time In: 1125 Time Out: 1140 Total Billed Treatment Time: 15 Total Billed Treatment 1 visit EX 15' JENA LAKHANI PT Nov 11, 2020 12:37
[2020-11-11] MEDS: ENOXAPARIN 40 MG/0.4 ML (LOVENOX) SYR SC SCH (13:34)
[2020-11-11] MEDS: SIMvastatin 10 MG (ZOCOR) TAB PO SCH (17:50)
[2020-11-11] MEDS: LOSARTAN 50 MG (COZAAR) TAB PO SCH (17:50)
[2020-11-11] MEDS: CELECOXIB 100 MG (CeleBREX) CAP PO SCH (17:50)
[2020-11-11 20:33] VITALS: BP 117/88
[2020-11-11] MEDS: AMITRIPTYLINE 50 MG (ELAVIL) TAB PO SCH (21:13)
[2020-11-12] MEDS: inSUlin ASPART (NovoLOG) 1 UNIT/0.01 ML (CHARGE PER UNIT) SC SCH ×4 (06:51→21:40)
[2020-11-12 07:30] VITALS: BP 157/83
[2020-11-12] MEDS: MECLIZINE 25 MG (ANTIVERT) TAB PO SCH ×2 (08:21→21:17)
[2020-11-12] MEDS: SENNA W/DOCUSATE (SENOKOT S) TABLET PO SCH ×2 (08:21→21:17)
[2020-11-12] MEDS: polyethylene glycoL POWDER 17 GM (MIRALAX) PACK PO SCH ×2 (08:21→21:41)
[2020-11-12] MEDS: CALCIUM CARBONATE 600 MG (CALCARB) TAB PO SCH (08:21)
[2020-11-12] MEDS: GABAPENTIN 300 MG (NEURONTIN) CAP PO SCH ×3 (08:21→21:17)
[2020-11-12] MEDS: ASPIRIN E.C. 81 MG (ECOTRIN) TAB PO SCH (08:21)
--- NOTE | 2020-11-12 08:31 | PM&R Progress Note ---
Subjective HPI/CC On Admission Date Seen by Provider: Nov 12, 2020 Time Seen by Provider: 13:00 Subjective/Events-last exam 11/12/2020: Patient doing really well Blood sugars much better We will discontinue the Hep-Lock Blood sugars vary Only took 1 pain pill today 11/11/2020: Patient doing pretty well Lower blood sugars have prompted me to decrease insulin Very compliant with carb limited diet here K pad to back has been helpful Bowels are moving Check meds and labs Creatinine 1.37 Review of Systems General: Fatigue Musculoskeletal: back pain Objective Exam Vital Signs Vital Signs Date Time Temp Pulse Resp B/P (MAP) Pulse Ox O2 Delivery O2 Flow Rate FiO2 11/12/20 21:00 94 Room Air 11/12/20 20:00 37.0 90 18 135/72 (93) Capillary Refill : General Appearance: No Apparent Distress, WD/WN, Chronically ill, Obese HEENT: PERRL/EOMI, Normal ENT Inspection, Pharynx Normal Neck: Full Range of Motion, Normal Inspection, Non Tender, Supple, Carotid Bruit Respiratory: Chest Non Tender, Lungs Clear, Normal Breath Sounds, No Accessory Muscle Use, No Respiratory Distress Cardiovascular: Regular Rate, Rhythm, No Edema, No Gallop, No JVD, No Murmur, Normal Peripheral Pulses Gastrointestinal: Normal Bowel Sounds, No Organomegaly, No Pulsatile Mass, Non Tender, Soft Back: Normal Inspection, Decreased Range of Motion, Muscle Spasm, Vertebral Tenderness Extremity: Normal Capillary Refill, Normal Inspection, Normal Range of Motion, Non Tender, No Calf Tenderness, No Pedal Edema Neurologic/Psychiatric: Alert, Oriented x3, 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 FIM Transfers Therapy Code Descriptions/Definitions Functional [place] Measure: 0=Not Assessed/NA 4=Minimal Assistance 1=Total Assistance 5=Supervision or Setup 2=Maximal Assistance 6=Modified [place] 3=Moderate Assistance 7=Complete IndependenceSCALE: Activities may be completed with or without assistive devices. 7-Undkgiodzs-ezocjfn completes the activity by him/herself with no assistance from a helper. 5-Set-up or Clean-up Assistance-helper sets up or cleans up; patient completes activity. [place] assists only prior to or following the activity. 4-Supervision or Touching Assistance-helper provides verbal cues and/or touching/steadying and/or contact guard assistance as patient completes activity. Assistance may be provided throughout the activity or intermittently. 3-Partial/Moderate Assistance-helper does LESS THAN HALF the effort. [place] lifts, holds or supports trunk or limbs, but provides less than half the effort. 2-Substantial/Maximal Assistance-helper does MORE THAN HALF the effort. [place] lifts or holds trunk or limbs and provides more than half the effort. 9-Vvscfrgxu-teheiq does ALL the effort. Patient does none of the effort to complete the activity. Or, the assistance of 2 or more helpers is required for the patient to complete the activity. If activity was not attempted, code reason: 7-Patient Refused. 9-Not Applicable-not attempted and the patient did not perform the activity before the current illness, exacerbation or injury. 10-Not Attempted due to Environmental Limitations-(lack of equipment, weather restraints, etc.). 88-Not Attempted due to Medical Conditions or Safety Concerns. Roll Left to Right (QC): 4 Sit to Lying (QC): 3 Sit to Stand (QC): 4 Chair/Hjw-vm-Yuoek Xfer(QC): 4 Car Transfer (QC): 3 Gait Training Does the Patient Walk?: Yes Distance: 120'x2 Walk 10 feet (QC): 4 Walk 50 ft with 2 Turns(QC): 4 Walk 150 ft (QC): 88 Walking 10ft/uneven surface-QC: 3 Gait Persons Needed: 1 Gait Assistive Device: FWW Wheelchair Training Does the Pt Use a Wheelchair?: No Wheel 50 ft with 2 turns (QC): 9 Wheel 150 ft (QC): 9 Stair Training #of Steps: 1 1 Step (curb) (QC): 3 4 Steps (QC): 88 12 Steps (QC): 88 Balance Picking up an Object (QC): 88 ADL-Treatment Eating (QC): 6 Oral Hygiene (QC): 9 Shower/Bathe Self (QC): 4 Upper Body Dressing (QC): 5 Lower Body Dressing (QC): 4 On/Off Footwear (QC): 4 (supervision) Toileting Hygiene (QC): 4 Toilet Transfer (QC): 4 Assessment/Plan Assessment and Plan Assess & Plan/Chief Complaint Assessment: Debility Multiple falls Current subacute T12 compression fracture sustained in fall Right olecranon injury Diabetes mellitus zsd-zy-yxpivyw Noncompliant with diabetic diet Plan: Supportive care Fall risk prevention Aggressive therapy regimen 11/11/2020: Decrease insulin to prevent hypoglycemia Pain control Monitor closely 11/12/2020: Supportive care Pain pill working well Monitor diabetes (1) Debility (2) Diabetes mellitus, insulin dependent (IDDM), uncontrolled (3) Weakness Status: Acute (4) T12 compression fracture Status: Acute (5) Fall (on) (from) other stairs and steps, initial encounter Status: Acute (6) Back pain Status: Acute KATELYNN VÁZQUEZ DO Nov 12, 2020 08:31
[2020-11-12] MEDS: HYDROcodone/APAP 7.5 MG/325 MG (LORTAB, LORCET PLUS) TABLET PO PRN ×2 (10:22→17:07)
--- NOTE | 2020-11-12 11:05 | Physical Therapy Daily Note ---
PT Daily Note-Current Subjective Pt rates pain 10/10 mid back. Pt reports she had her pain medication. Pt says "I will do whatever you want bc I am here to get stronger." Mental Status Patient Orientation: Person, Place, Situation Transfers SCALE: Activities may be completed with or without assistive devices. 6-Awypehrona-trvhoxg completes the activity by him/herself with no assistance from a helper. 5-Set-up or Clean-up Assistance-helper sets up or cleans up; patient completes activity. [place] assists only prior to or following the activity. 4-Supervision or Touching Assistance-helper provides verbal cues and/or touching/steadying and/or contact guard assistance as patient completes activity. Assistance may be provided throughout the activity or intermittently. 3-Partial/Moderate Assistance-helper does LESS THAN HALF the effort. [place] lifts, holds or supports trunk or limbs, but provides less than half the effort. 2-Substantial/Maximal Assistance-helper does MORE THAN HALF the effort. [place] lifts or holds trunk or limbs and provides more than half the effort. 3-Oigafobon-abdbxb does ALL the effort. Patient does none of the effort to complete the activity. Or, the assistance of 2 or more helpers is required for the patient to complete the activity. If activity was not attempted, code reason: 7-Patient Refused. 9-Not Applicable-not attempted and the patient did not perform the activity befo re the current illness, exacerbation or injury. 10-Not Attempted due to Environmental Limitations-(lack of equipment, weather re straints, etc.). 88-Not Attempted due to Medical Conditions or Safety Concerns. Gait Training Gait Assistive Device: FWW Pt amb with FWW and CGA x 150ft. Exercises Supine Ex: Ankle pumps, Quad Set, Heel Slides, Short Arc Quads, Hip abd/add Supine Reps: 20 Assessment Current Status: Good Progress Pt xiao well despite high pain levels. PT Short Term Goals Short Term Goals Time Frame: Nov 17, 2020 Roll Left & Right: 6 Sit to lyin Lying to sitting on side of be: 5 Sit to stand: 4 Chair/kyf-xg-kmmph transfer: 4 Walk 10 feet: 4 Walk 50 feet with two turns: 4 Walk 150 feet: 4 PT Fpc Goals Fpc Goals PT [employer] Goals Time Frame: Dec 01, 2020 Roll Left & Right (QC): 6 Sit to Lying (QC): 6 Lying-Sitting on Side/Bed(QC): 6 Sit to Stand (QC): 6 Chair/Nzy-fk-Fckpu Xfer(QC): 5 Toilet Transfer (QC): 5 Car Transfer (QC): 5 Does the Patient Walk: Yes Walk 10 feet (QC): 5 Walk 50ft with 2 Turns (QC): 5 Walk 150 ft (QC): 5 Walking 10ft on Uneven Surface: 5 1 Step (curb) (QC): 4 4 Steps (QC): 4 12 Steps (QC): 88 Picking up an Object (QC): 88 Wheel 50 feet with 2 turns (QC: 9 Wheel 150 feet: 9 PT Plan Treatment/Plan Treatment Plan: Continue Plan of Care Treatment Plan: Bed Mobility, Education, Functional Activity Remy, Functional Strength, Group Therapy, Gait, Safety, Therapeutic Exercise, Transfers Treatment Duration: Dec 01, 2020 Frequency: At least 5 of 7 days/Wk (IRF) Estimated Hrs Per Day: 1.5 hours per day Patient and/or Family Agrees t: Yes Time/GCodes Time In: 1045 Time Out: 1105 Total Billed Treatment Time: 20 Total Billed Treatment 1, gait 15', ther ex 5' ADRIAN MARIN CPTA Nov 12, 2020 11:05
[2020-11-12] MEDS: ENOXAPARIN 40 MG/0.4 ML (LOVENOX) SYR SC SCH (13:04)
[2020-11-12] MEDS: SIMvastatin 10 MG (ZOCOR) TAB PO SCH (17:04)
[2020-11-12] MEDS: LOSARTAN 50 MG (COZAAR) TAB PO SCH (17:04)
[2020-11-12] MEDS: CELECOXIB 100 MG (CeleBREX) CAP PO SCH (17:04)
[2020-11-12 20:00] VITALS: BP 135/72
[2020-11-12] MEDS: AMITRIPTYLINE 50 MG (ELAVIL) TAB PO SCH (21:17)
[2020-11-13] MEDS: inSUlin ASPART (NovoLOG) 1 UNIT/0.01 ML (CHARGE PER UNIT) SC SCH ×4 (05:55→20:57)
--- NOTE | 2020-11-13 08:03 | PM&R Progress Note ---
Subjective HPI/CC On Admission Date Seen by Provider: Nov 13, 2020 Time Seen by Provider: 13:30 Subjective/Events-last exam 11/13/2020: Patient doing pretty well Elevated sugars noted Very impulsive Gave order for regular insulin 20 units for sugars greater than 300 11/12/2020: Patient doing really well Blood sugars much better We will discontinue the Hep-Lock Blood sugars vary Only took 1 pain pill today 11/11/2020: Patient doing pretty well Lower blood sugars have prompted me to decrease insulin Very compliant with carb limited diet here K pad to back has been helpful Bowels are moving Check meds and labs Creatinine 1.37 Review of Systems General: Fatigue, Malaise Musculoskeletal: back pain Objective Exam Vital Signs Vital Signs Date Time Temp Pulse Resp B/P (MAP) Pulse Ox O2 Delivery O2 Flow Rate FiO2 11/13/20 08:52 94 Room Air 11/13/20 08:16 36.6 87 20 144/70 (94) Capillary Refill : General Appearance: No Apparent Distress, WD/WN, Chronically ill, Obese HEENT: PERRL/EOMI, Normal ENT Inspection, Pharynx Normal Neck: Full Range of Motion, Normal Inspection, Non Tender, Supple, Carotid Bruit Respiratory: Chest Non Tender, Lungs Clear, Normal Breath Sounds, No Accessory Muscle Use, No Respiratory Distress Cardiovascular: Regular Rate, Rhythm, No Edema, No Gallop, No JVD, No Murmur, Normal Peripheral Pulses Gastrointestinal: Normal Bowel Sounds, No Organomegaly, No Pulsatile Mass, Non Tender, Soft Back: Normal Inspection, Decreased Range of Motion, Muscle Spasm, Vertebral Tenderness Extremity: Normal Capillary Refill, Normal Inspection, Normal Range of Motion, Non Tender, No Calf Tenderness, No Pedal Edema Neurologic/Psychiatric: Alert, Oriented x3, track 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 FIM Transfers Therapy Code Descriptions/Definitions Functional [place] Measure: 0=Not Assessed/NA 4=Minimal Assistance 1=Total Assistance 5=Supervision or Setup 2=Maximal Assistance 6=Modified [place] 3=Moderate Assistance 7=Complete IndependenceSCALE: Activities may be completed with or without assistive devices. 3-Xglsxwztnv-thqzdcu completes the activity by him/herself with no assistance from a helper. 5-Set-up or Clean-up Assistance-helper sets up or cleans up; patient completes activity. [place] assists only prior to or following the activity. 4-Supervision or Touching Assistance-helper provides verbal cues and/or touching/steadying and/or contact guard assistance as patient completes activity. Assistance may be provided throughout the activity or intermittently. 3-Partial/Moderate Assistance-helper does LESS THAN HALF the effort. [place] lifts, holds or supports trunk or limbs, but provides less than half the effort. 2-Substantial/Maximal Assistance-helper does MORE THAN HALF the effort. [place] lifts or holds trunk or limbs and provides more than half the effort. 7-Tretlpqth-kysxgo does ALL the effort. Patient does none of the effort to complete the activity. Or, the assistance of 2 or more helpers is required for the patient to complete the activity. If activity was not attempted, code reason: 7-Patient Refused. 9-Not Applicable-not attempted and the patient did not perform the activity before the current illness, exacerbation or injury. 10-Not Attempted due to Environmental Limitations-(lack of equipment, weather restraints, etc.). 88-Not Attempted due to Medical Conditions or Safety Concerns. Roll Left to Right (QC): 4 Sit to Lying (QC): 3 Sit to Stand (QC): 4 Chair/Don-lj-Yhhej Xfer(QC): 4 Car Transfer (QC): 3 Gait Training Does the Patient Walk?: Yes Distance: 120'x2 Walk 10 feet (QC): 4 Walk 50 ft with 2 Turns(QC): 4 Walk 150 ft (QC): 88 Walking 10ft/uneven surface-QC: 3 Gait Persons Needed: 1 Gait Assistive Device: FWW Wheelchair Training Does the Pt Use a Wheelchair?: No Wheel 50 ft with 2 turns (QC): 9 Wheel 150 ft (QC): 9 Stair Training #of Steps: 1 1 Step (curb) (QC): 3 4 Steps (QC): 88 12 Steps (QC): 88 Balance Picking up an Object (QC): 88 ADL-Treatment Eating (QC): 6 Oral Hygiene (QC): 9 Shower/Bathe Self (QC): 4 Upper Body Dressing (QC): 5 Lower Body Dressing (QC): 4 On/Off Footwear (QC): 4 (supervision) Toileting Hygiene (QC): 4 Toilet Transfer (QC): 4 Assessment/Plan Assessment and Plan Assess & Plan/Chief Complaint Assessment: Debility Multiple falls Current subacute T12 compression fracture sustained in fall Right olecranon injury Diabetes mellitus eyc-fl-mpkzkat Noncompliant with diabetic diet Plan: Supportive care Fall risk prevention Aggressive therapy regimen 11/11/2020: Decrease insulin to prevent hypoglycemia Pain control Monitor closely 11/12/2020: Supportive care Pain pill working well Monitor diabetes 11/13/2020: Very impulsive Regular insulin for elevated sugar (1) Debility (2) Diabetes mellitus, insulin dependent (IDDM), uncontrolled (3) Weakness Status: Acute (4) T12 compression fracture Status: Acute (5) Fall (on) (from) other stairs and steps, initial encounter Status: Acute (6) Back pain Status: Acute KATELYNN VÁZQUEZ DO Nov 13, 2020 08:03
[2020-11-13 08:16] VITALS: BP 144/70
[2020-11-13] MEDS: MECLIZINE 25 MG (ANTIVERT) TAB PO SCH ×2 (08:18→20:54)
[2020-11-13] MEDS: HYDROcodone/APAP 7.5 MG/325 MG (LORTAB, LORCET PLUS) TABLET PO PRN ×2 (08:18→13:31)
[2020-11-13] MEDS: ASPIRIN E.C. 81 MG (ECOTRIN) TAB PO SCH (08:18)
[2020-11-13] MEDS: CALCIUM CARBONATE 600 MG (CALCARB) TAB PO SCH (08:18)
[2020-11-13] MEDS: GABAPENTIN 300 MG (NEURONTIN) CAP PO SCH ×3 (08:18→20:54)
[2020-11-13] MEDS: SENNA W/DOCUSATE (SENOKOT S) TABLET PO SCH ×2 (08:18→20:54)
[2020-11-13] MEDS: CYCLOBENZAPRINE 10 MG (FLEXERIL) TAB PO PRN (08:18)
[2020-11-13] MEDS: polyethylene glycoL POWDER 17 GM (MIRALAX) PACK PO SCH ×2 (08:48→20:58)
[2020-11-13] MEDS ORDERED: inSUlin (REGULAR) HUMAN 1 UNIT/0.01 ML (CHARGE PER UNIT) SC PRN (13:15)
[2020-11-13] MEDS: ENOXAPARIN 40 MG/0.4 ML (LOVENOX) SYR SC SCH (13:32)
[2020-11-13] MEDS: LOSARTAN 50 MG (COZAAR) TAB PO SCH (17:52)
[2020-11-13] MEDS: CELECOXIB 100 MG (CeleBREX) CAP PO SCH (17:52)
[2020-11-13] MEDS: SIMvastatin 10 MG (ZOCOR) TAB PO SCH (17:52)
[2020-11-13 20:00] VITALS: BP 147/82
[2020-11-13] MEDS: AMITRIPTYLINE 50 MG (ELAVIL) TAB PO SCH (20:55)
[2020-11-14] MEDS: CYCLOBENZAPRINE 10 MG (FLEXERIL) TAB PO PRN ×2 (01:39→07:59)
[2020-11-14 06:06] LABS: BASOPHILS # (AUTO) 0.1 10^3/uL (0.0-0.1); BASOPHILS % (AUTO) 1 % (0-10); EOSINOPHILS # (AUTO) 0.5 10^3/uL (0.0-0.3); EOSINOPHILS % (AUTO) 4 % (0-10); HEMATOCRIT 37 % (35-52); HEMOGLOBIN 11.7 g/dL (11.5-16.0); LYMPHOCYTES % (AUTO) 18 % (12-44); MEAN CORPUSCULAR HEMOGLOBIN 26 pg (25-34); MEAN CORPUSCULAR HGB CONC 32 g/dL (32-36); MEAN CORPUSCULAR VOLUME 82 fL (80-99); MEAN PLATELET VOLUME 10.1 fL (9.0-12.2); MONOCYTES # (AUTO) 0.6 10^3/uL (0.0-1.0); MONOCYTES % (AUTO) 5 % (0-12); NEUTROPHILS # (AUTO) 7.9 10^3/uL (1.8-7.8); NEUTROPHILS % (AUTO) 71 % (42-75); PLATELET COUNT 225 10^3/uL (130-400); WHITE BLOOD COUNT 11.1 10^3/uL (4.3-11.0)
[2020-11-14] MEDS: inSUlin ASPART (NovoLOG) 1 UNIT/0.01 ML (CHARGE PER UNIT) SC SCH ×4 (06:20→20:58)
[2020-11-14 06:31] LABS: ALBUMIN 3.7 GM/DL (3.2-4.5); POTASSIUM 4.2 MMOL/L (3.6-5.0)
[2020-11-14 06:32] LABS: CALCIUM 10.1 MG/DL (8.5-10.1)
[2020-11-14 06:33] LABS: TOTAL PROTEIN 7.4 GM/DL (6.4-8.2)
[2020-11-14 06:35] LABS: BILIRUBIN,TOTAL 0.3 MG/DL (0.1-1.0)
[2020-11-14 06:37] LABS: CREATININE SERUM 1.37 MG/DL (0.60-1.30)
[2020-11-14 07:41] VITALS: BP 138/80
[2020-11-14] MEDS: CALCIUM CARBONATE 600 MG (CALCARB) TAB PO SCH (07:59)
[2020-11-14] MEDS: polyethylene glycoL POWDER 17 GM (MIRALAX) PACK PO SCH ×2 (08:04→21:04)
[2020-11-14] MEDS: SENNA W/DOCUSATE (SENOKOT S) TABLET PO SCH ×2 (08:05→20:54)
--- NOTE | 2020-11-14 08:53 | Occupational Ther Daily Note ---
OT Current Status-Daily Note Subjective Pt reports 10/10 back pain. Pain meds given prior to OT arrival. Mental Status/Objective Patient Orientation: Person, Place, Time, Situation ADL-Treatment Therapy Code Descriptions/Definitions Functional [place] Measure: 0=Not Assessed/NA 4=Minimal Assistance 1=Total Assistance 5=Supervision or Setup 2=Maximal Assistance 6=Modified [place] 3=Moderate Assistance 7=Complete IndependenceSCALE: Activities may be completed with or without assistive devices. 1-Vraofatrbp-tpfpyqw completes the activity by him/herself with no assistance from a helper. 5-Set-up or Clean-up Assistance-helper sets up or cleans up; patient completes activity. [place] assists only prior to or following the activity. 4-Supervision or Touching Assistance-helper provides verbal cues and/or touching/steadying and/or contact guard assistance as patient completes activity. Assistance may be provided throughout the activity or intermittently. 3-Partial/Moderate Assistance-helper does LESS THAN HALF the effort. [place] lifts, holds or supports trunk or limbs, but provides less than half the effort. 2-Substantial/Maximal Assistance-helper does MORE THAN HALF the effort. [place] lifts or holds trunk or limbs and provides more than half the effort. 4-Vwejuakis-slamef does ALL the effort. Patient does none of the effort to complete the activity. Or, the assistance of 2 or more helpers is required for the patient to complete the activity. If activity was not attempted, code reason: 7-Patient Refused. 9-Not Applicable-not attempted and the patient did not perform the activity before the current illness, exacerbation or injury. 10-Not Attempted due to Environmental Limitations-(lack of equipment, weather restraints, etc.). 88-Not Attempted due to Medical Conditions or Safety Concerns. Lower Body Dressing (QC): 4 (SBA) On/Off Footwear: 4 (SBA) Toileting Hygiene (QC): 4 Toilet Transfer (QC): 4 Pt declines showering as she reports taking a shower previous night. Dressing tasks completed seated EOB. Cues/reminders on compensatory methods such as cross over technique in effort to keep back pain from intensifying. She ambulated to/from bathroom and stood to brush hair and wash face with supervision. Education provided on attention/importance on checking skin integrity of feet secondary to having neuropathy and diabetes. Other Treatment Pt participated in simulated homemaking task (organizing/cleaning). Beans bags placed throughout room at various heights. Education/demonstration on safety/walker management as pt has tendency to push walker off to side or leave completely. Pt utilized mainspring reverse winder when retrieving angela bags from floor or low levels. Poor safety noted at times when attempting to reach too far out of [place] or over obstacles. Cues for safety needed. Pt can be impulsive and needs cues to slow pace. Activity completed x2 both with and without walker; CGA without AD. Several sitting rest breaks needed secondary to back pain. Demonstration provided on proper body mechanics throughout activity. Fair carry over with education/cues. Education OT Patient Education: Correct positioning, Energy conservation, Exercise program, Modified ADL techniques, Progress toward Goal/Update tx plan, Purpose of tx/functional activities, Reviewed precautions, Rehab process, Safety issues, Use of adapted equipment Teaching Recipient: Patient Teaching Methods: Demonstration, Discussion Response to Teaching: Verbalize Understanding, Reinforcement Needed OT Short Term Goals Short Term Goals Eatin Oral hygiene: 9 Toileting hygiene: 4 Shower/bathe self: 4 Upper body dressin Lower body dressin Putting on/taking off footwear: 4 OT Media Traffic Manager Goals Media Traffic Manager Goals Eating (QC): 6 Oral Hygiene (QC): 9 Toileting Hygiene (QC): 6 Shower/Bathe Self (QC): 6 Upper Body Dressing (QC): 6 Lower Body Dressing (QC): 6 On/Off Footwear (QC): 6 1=Demonstrate adherence to instructed precautions during ADL tasks. 2=Patient will verbalize/demonstrate understanding of assistive devices/modifications for ADL. 3=Patient will improve strength/tolerance for activity to enable patient to perform ADL's. OT Education/Plan Problem List/Assessment Assessment: Decreased Activ Tolerance, Decreased Safety Aware, Decreased UE Strength, Impaired Coordination, Impaired Funct Balance, Impaired I ADL's, Impaired Self-Care Skills, Restricted Funct UE ROM Discharge Recommendations Plan/Recommendations: Continue POC Equpiment Recommendations-D/C: [employer] Treatment Plan/Plan of Care Treatment,Training & Education: Yes Patient would benefit from OT for education, treatment and training to promote independence in ADL's, mobility, safety and/or upper extremity function for ADL's. Plan of Care: ADL Retraining, Functional Mobility, Group Exercise/Act as Ind, UE Funct Exercise/Act Treatment Duration: Nov 24, 2020 Frequency: At least 5 of 7 days/Wk (IRF) Estimated Hrs Per Day: 1.5 hours per day Agreement: Yes Rehab Potential: Fair Time/GCodes Start Time: 07:55 Stop Time: 09:00 Total Time Billed (hr/min): 65 Billed Treatment Time 1 visit, ADL (20 min), FA x3 (45 min) Nenita Reyna OT Nov 14, 2020 08:53
[2020-11-14] MEDS: ASPIRIN E.C. 81 MG (ECOTRIN) TAB PO SCH (09:34)
[2020-11-14] MEDS: MECLIZINE 25 MG (ANTIVERT) TAB PO SCH ×2 (09:34→20:52)
[2020-11-14] MEDS: GABAPENTIN 300 MG (NEURONTIN) CAP PO SCH ×3 (09:34→20:52)
--- NOTE | 2020-11-14 10:59 | Physical Therapy Daily Note ---
PT Daily Note-Current Subjective Patient sitting in chair upon PT arrival, agreeable to treatment. Patient rates pain at 10/10 in her low back and reports nurse dispensed meds a few minutes ago. Mental Status Patient Orientation: Person, Place, Time, Situation Transfers SCALE: Activities may be completed with or without assistive devices. 3-Lrxbepqxpr-fpcywgr completes the activity by him/herself with no assistance from a helper. 5-Set-up or Clean-up Assistance-helper sets up or cleans up; patient completes activity. [place] assists only prior to or following the activity. 4-Supervision or Touching Assistance-helper provides verbal cues and/or touching/steadying and/or contact guard assistance as patient completes activity. Assistance may be provided throughout the activity or intermittently. 3-Partial/Moderate Assistance-helper does LESS THAN HALF the effort. [place] lifts, holds or supports trunk or limbs, but provides less than half the effort. 2-Substantial/Maximal Assistance-helper does MORE THAN HALF the effort. [place] lifts or holds trunk or limbs and provides more than half the effort. 3-Rpgenhvjv-yacqox does ALL the effort. Patient does none of the effort to complete the activity. Or, the assistance of 2 or more helpers is required for the patient to complete the activity. If activity was not attempted, code reason: 7-Patient Refused. 9-Not Applicable-not attempted and the patient did not perform the activity before the current illness, exacerbation or injury. 10-Not Attempted due to Environmental Limitations-(lack of equipment, weather restraints, etc.). 88-Not Attempted due to Medical Conditions or Safety Concerns. Sit to Stand (QC): 4 Chair/Iac-we-Jcfqs Xfer(QC): 4 Toilet Transfer (QC): 4 Gait Training Does the Patient Walk?: Yes Distance: 150 ft x 4 Walk 10 feet (QC): 4 Walk 50 ft with 2 Turns(QC): 4 Walk 150 ft (QC): 3 Gait Persons Needed: 1 Gait Assistive Device: Cane Large Base Quad Stair Training Stair Training: Handrails/: 2 handrails #of Steps: 8 1 Step (curb) (QC): 4 4 Steps (QC): 4 Stairs: Pattern: Step to Exercises Seated Therapy Exercises: Ankle pumps, Long arc quads, Hip flexion, Hamstring Curls, Hip abd/add Seated Reps: 20 NuStep Minutes: 10 NuStep Workload: 3 Assessment Current Status: Good Progress Patient sitting in chair upon PT arrival, agreeable to treatment. Patient frequently adjusts her position to alleviate her LBP, leaning forwards with her elbows on her knees and then back into the pillow. Patient performs LE therapeutic exercise as listed sitting in the chair. Patient ambulates 150 feet with FWW, with CGA at times and verbal cues for safety, progression, posture, proximity to the FWW. Patient ambulates too far from her FWW frequently throughout gait training, tends to lean forwards too far, and veers to either side frequently. Seems to veer more with turning of her head to either side, which she also performs frequently. Patient then ambulates 150 feet with FWW with CGA back to the gym. Patient performs Nu Step as listed then standing exercises. Patient ascends/descends 4 steps with bilateral handrails x 2 after instruction and visual demonstration. Patient requires CGA for safety. Patient then ambulates 150 feet with FWW, CGA x 2 back to her room. Patient required sitting rest break in between each 150 feet of gait. Patient in chair post treatment with all needs met, nursing notified, family in the room and call light in reach. PT Short Term Goals Short Term Goals Time Frame: Nov 17, 2020 Roll Left & Right: 6 Sit to lyin Lying to sitting on side of be: 5 Sit to stand: 4 Chair/ziy-zg-hhrpp transfer: 4 Walk 10 feet: 4 Walk 50 feet with two turns: 4 Walk 150 feet: 4 PT Sexer Goals Sexer Goals PT Longterm Goals Time Frame: Dec 01, 2020 Roll Left & Right (QC): 6 Sit to Lying (QC): 6 Lying-Sitting on Side/Bed(QC): 6 Sit to Stand (QC): 6 Chair/Ttj-hl-Qcntv Xfer(QC): 5 Toilet Transfer (QC): 5 Car Transfer (QC): 5 Does the Patient Walk: Yes Walk 10 feet (QC): 5 Walk 50ft with 2 Turns (QC): 5 Walk 150 ft (QC): 5 Walking 10ft on Uneven Surface: 5 1 Step (curb) (QC): 4 4 Steps (QC): 4 12 Steps (QC): 88 Picking up an Object (QC): 88 Wheel 50 feet with 2 turns (QC: 9 Wheel 150 feet: 9 PT Plan Treatment/Plan Treatment Plan: Continue Plan of Care Treatment Plan: Bed Mobility, Education, Functional Activity Remy, Functional Strength, Group Therapy, Gait, Safety, Therapeutic Exercise, Transfers Treatment Duration: Dec 01, 2020 Frequency: At least 5 of 7 days/Wk (IRF) Estimated Hrs Per Day: 1.5 hours per day Patient and/or Family Agrees t: Yes Safety Risks/Education Patient Education: Gait Training, Transfer Techniques, Steps, Safety Issues Teaching Recipient: Patient Teaching Methods: Demonstration, Discussion Response to Teaching: Verbalize Understanding, Return Demonstration Time/GCodes Time In: 900 Time Out: 1030 Total Billed Treatment Time: 90 Total Billed Treatment Visit, Gait (3), Ex (3) JACQUE MURRIETA PT Nov 14, 2020 10:59
[2020-11-14] MEDS: HYDROcodone/APAP 7.5 MG/325 MG (LORTAB, LORCET PLUS) TABLET PO PRN ×3 (11:06→20:53)
--- NOTE | 2020-11-14 11:59 | Occupational Ther Daily Note ---
OT Current Status-Daily Note Subjective Pt continues to report pain in back but improved from AM session: 7/10 pain scale. RN aware. Mental Status/Objective Patient Orientation: Person, Place, Time, Situation ADL-Treatment Therapy Code Descriptions/Definitions Functional [place] Measure: 0=Not Assessed/NA 4=Minimal Assistance 1=Total Assistance 5=Supervision or Setup 2=Maximal Assistance 6=Modified [place] 3=Moderate Assistance 7=Complete IndependenceSCALE: Activities may be completed with or without assistive devices. 2-Xujharzysz-rmdihgc completes the activity by him/herself with no assistance from a helper. 5-Set-up or Clean-up Assistance-helper sets up or cleans up; patient completes activity. [place] assists only prior to or following the activity. 4-Supervision or Touching Assistance-helper provides verbal cues and/or touching/steadying and/or contact guard assistance as patient completes activity. Assistance may be provided throughout the activity or intermittently. 3-Partial/Moderate Assistance-helper does LESS THAN HALF the effort. [place] lifts, holds or supports trunk or limbs, but provides less than half the effort. 2-Substantial/Maximal Assistance-helper does MORE THAN HALF the effort. [place] lifts or holds trunk or limbs and provides more than half the effort. 6-Zwrsfgvxl-ptjfqo does ALL the effort. Patient does none of the effort to complete the activity. Or, the assistance of 2 or more helpers is required for the patient to complete the activity. If activity was not attempted, code reason: 7-Patient Refused. 9-Not Applicable-not attempted and the patient did not perform the activity before the current illness, exacerbation or injury. 10-Not Attempted due to Environmental Limitations-(lack of equipment, weather restraints, etc.). 88-Not Attempted due to Medical Conditions or Safety Concerns. Other Treatment Upon OT arrival, pt cockeyed in bed. Assist/education on positioning in bed in effort to not exacerbate symptoms in back. Pt participated in BUE exercises including L AROM of wrist/digits, AAROM/PROM of elbow and shoulder, and Right AROM. Elbow extension performed within pain free range, ~40 degrees. Reinforcement on preforming AROM mobilizations as much as tolerated in effort to improve ROM, decrease stiffness/edema and increasing strength. At times, pt requires tactile cues for proper technique and to finish reps in set as she can become easily distracted. Education OT Patient Education: Correct positioning, Progress toward Goal/Update tx plan, Purpose of tx/functional activities, Safety issues, Transfer techniques Teaching Recipient: Patient Teaching Methods: Demonstration, Discussion Response to Teaching: Verbalize Understanding, Reinforcement Needed OT Short Term Goals Short Term Goals Eatin Oral hygiene: 9 Toileting hygiene: 4 Shower/bathe self: 4 Upper body dressin Lower body dressin Putting on/taking off footwear: 4 OT Forge Hand Goals Intermediate Goals Eating (QC): 6 Oral Hygiene (QC): 9 Toileting Hygiene (QC): 6 Shower/Bathe Self (QC): 6 Upper Body Dressing (QC): 6 Lower Body Dressing (QC): 6 On/Off Footwear (QC): 6 1=Demonstrate adherence to instructed precautions during ADL tasks. 2=Patient will verbalize/demonstrate understanding of assistive devices/modifications for ADL. 3=Patient will improve strength/tolerance for activity to enable patient to perform ADL's. OT Education/Plan Problem List/Assessment Assessment: Decreased Activ Tolerance, Decreased Safety Aware, Decreased UE Strength, Impaired Bed Mobility, Impaired Funct Balance, Impaired I ADL's, Impaired Self-Care Skills, Restricted Funct UE ROM Discharge Recommendations Plan/Recommendations: Continue POC Treatment Plan/Plan of Care Treatment,Training & Education: Yes Patient would benefit from OT for education, treatment and training to promote independence in ADL's, mobility, safety and/or upper extremity function for ADL's. Plan of Care: ADL Retraining, Functional Mobility, Group Exercise/Act as Ind, UE Funct Exercise/Act Treatment Duration: Nov 24, 2020 Frequency: At least 5 of 7 days/Wk (IRF) Estimated Hrs Per Day: 1.5 hours per day Agreement: Yes Rehab Potential: Fair Time/GCodes Start Time: 11:30 Stop Time: 11:55 Total Time Billed (hr/min): 25 Billed Treatment Time 1 visit, EX Nenita Sandoval OT Nov 14, 2020 11:59
[2020-11-14] MEDS: ENOXAPARIN 40 MG/0.4 ML (LOVENOX) SYR SC SCH (13:53)
[2020-11-14] MEDS ORDERED: DICLOFENAC 1% GEL 100 GM (VOLTAREN) TUBE TOP PRN (14:45)
[2020-11-14] MEDS: SIMvastatin 10 MG (ZOCOR) TAB PO SCH (17:03)
[2020-11-14] MEDS: LOSARTAN 50 MG (COZAAR) TAB PO SCH (17:03)
[2020-11-14] MEDS: CELECOXIB 100 MG (CeleBREX) CAP PO SCH (17:03)
[2020-11-14 20:00] VITALS: BP 137/79
[2020-11-14] MEDS: AMITRIPTYLINE 50 MG (ELAVIL) TAB PO SCH (20:53)
--- NOTE | 2020-11-14 21:10 | PM&R Progress Note ---
Subjective HPI/CC On Admission Date Seen by Provider: Nov 14, 2020 Time Seen by Provider: 10:00 Subjective/Events-last exam 11/14/2020: Patient doing really well Bowels moved yesterday Blood sugar is very labile Increasing Levemir to help with sugar spikes Creatinine 1.37 evidence of diabetic nephropathy 11/13/2020: Patient doing pretty well Elevated sugars noted Very impulsive Gave order for regular insulin 20 units for sugars greater than 300 11/12/2020: Patient doing really well Blood sugars much better We will discontinue the Hep-Lock Blood sugars vary Only took 1 pain pill today 11/11/2020: Patient doing pretty well Lower blood sugars have prompted me to decrease insulin Very compliant with carb limited diet here K pad to back has been helpful Bowels are moving Check meds and labs Creatinine 1.37 Review of Systems General: Fatigue, Malaise Objective Exam Vital Signs Vital Signs Date Time Temp Pulse Resp B/P (MAP) Pulse Ox O2 Delivery O2 Flow Rate FiO2 11/14/20 21:00 Room Air 11/14/20 20:00 36.8 83 18 137/79 (98) 94 Capillary Refill : General Appearance: No Apparent Distress, WD/WN, Chronically ill, Obese HEENT: PERRL/EOMI, Normal ENT Inspection, Pharynx Normal Neck: Full Range of Motion, Normal Inspection, Non Tender, Supple, Carotid Bruit Respiratory: Chest Non Tender, Lungs Clear, Normal Breath Sounds, No Accessory Muscle Use, No Respiratory Distress Cardiovascular: Regular Rate, Rhythm, No Edema, No Gallop, No JVD, No Murmur, Normal Peripheral Pulses Gastrointestinal: Normal Bowel Sounds, No Organomegaly, No Pulsatile Mass, Non Tender, Soft Back: Normal Inspection, Decreased Range of Motion, Muscle Spasm, Vertebral Tenderness Extremity: Normal Capillary Refill, Normal Inspection, Normal Range of Motion, Non Tender, No Calf Tenderness, No Pedal Edema Neurologic/Psychiatric: Alert, Oriented x3, inspector plug seam II-XII Norm as Tested, Abnormal Gait, Depressed Affect, Motor Weakness (Generalized) Skin: Normal Color, Warm/Dry Lymphatic: No Adenopathy Results/Procedures Lab Patient resulted labs reviewed. FIM Transfers Therapy Code Descriptions/Definitions Functional [place] Measure: 0=Not Assessed/NA 4=Minimal Assistance 1=Total Assistance 5=Supervision or Setup 2=Maximal Assistance 6=Modified [place] 3=Moderate Assistance 7=Complete IndependenceSCALE: Activities may be completed with or without assistive devices. 5-Krevqixjng-mrylkjk completes the activity by him/herself with no assistance from a helper. 5-Set-up or Clean-up Assistance-helper sets up or cleans up; patient completes activity. [place] assists only prior to or following the activity. 4-Supervision or Touching Assistance-helper provides verbal cues and/or touching/steadying and/or contact guard assistance as patient completes activity. Assistance may be provided throughout the activity or intermittently. 3-Partial/Moderate Assistance-helper does LESS THAN HALF the effort. [place] lifts, holds or supports trunk or limbs, but provides less than half the effort. 2-Substantial/Maximal Assistance-helper does MORE THAN HALF the effort. [place] lifts or holds trunk or limbs and provides more than half the effort. 3-Zuettkyyg-trkjmp does ALL the effort. Patient does none of the effort to complete the activity. Or, the assistance of 2 or more helpers is required for the patient to complete the activity. If activity was not attempted, code reason: 7-Patient Refused. 9-Not Applicable-not attempted and the patient did not perform the activity before the current illness, exacerbation or injury. 10-Not Attempted due to Environmental Limitations-(lack of equipment, weather restraints, etc.). 88-Not Attempted due to Medical Conditions or Safety Concerns. Roll Left to Right (QC): 4 Sit to Lying (QC): 3 Sit to Stand (QC): 4 Chair/Prn-kd-Koqvz Xfer(QC): 4 Car Transfer (QC): 3 Gait Training Does the Patient Walk?: Yes Distance: 150 ft x 4 Walk 10 feet (QC): 4 Walk 50 ft with 2 Turns(QC): 4 Walk 150 ft (QC): 3 Walking 10ft/uneven surface-QC: 3 Gait Persons Needed: 1 Gait Assistive Device: Cane Large Base Quad Wheelchair Training Does the Pt Use a Wheelchair?: No Wheel 50 ft with 2 turns (QC): 9 Wheel 150 ft (QC): 9 Stair Training Stair Training: Handrails/: 2 handrails #of Steps: 8 1 Step (curb) (QC): 4 4 Steps (QC): 4 12 Steps (QC): 88 Stairs: Pattern: Step to Balance Picking up an Object (QC): 88 ADL-Treatment Eating (QC): 6 Oral Hygiene (QC): 9 Shower/Bathe Self (QC): 4 Upper Body Dressing (QC): 5 Lower Body Dressing (QC): 4 (SBA) On/Off Footwear (QC): 4 (SBA) Toileting Hygiene (QC): 4 Toilet Transfer (QC): 4 Assessment/Plan Assessment and Plan Assess & Plan/Chief Complaint Assessment: Debility Multiple falls Current subacute T12 compression fracture sustained in fall Right olecranon injury Diabetes mellitus nsh-wi-nnskufs Noncompliant with diabetic diet Plan: Supportive care Fall risk prevention Aggressive therapy regimen 11/11/2020: Decrease insulin to prevent hypoglycemia Pain control Monitor closely 11/12/2020: Supportive care Pain pill working well Monitor diabetes 11/13/2020: Very impulsive Regular insulin for elevated sugar 11/14/2020: Decrease Levemir to close to home dose Monitor closely Intensive rehab (1) Debility (2) Diabetes mellitus insulin dependent IDDM uncontrolled (3) Weakness Status: Acute (4) T12 compression fracture Status: Acute (5) Fall (on) (from) other stairs and steps, initial encounter Status: Acute (6) Back pain Status: Acute KATELYNN VÁZQUEZ DO Nov 14, 2020 21:10
[2020-11-15] MEDS: inSUlin ASPART (NovoLOG) 1 UNIT/0.01 ML (CHARGE PER UNIT) SC SCH ×4 (06:32→20:52)
[2020-11-15 07:33] VITALS: BP 122/63
[2020-11-15] MEDS: GABAPENTIN 300 MG (NEURONTIN) CAP PO SCH ×3 (08:00→21:21)
[2020-11-15] MEDS: HYDROcodone/APAP 7.5 MG/325 MG (LORTAB, LORCET PLUS) TABLET PO PRN ×3 (08:00→17:50)
[2020-11-15] MEDS: MECLIZINE 25 MG (ANTIVERT) TAB PO SCH ×2 (08:00→21:21)
[2020-11-15] MEDS: ASPIRIN E.C. 81 MG (ECOTRIN) TAB PO SCH (08:00)
[2020-11-15] MEDS: CALCIUM CARBONATE 600 MG (CALCARB) TAB PO SCH (08:00)
[2020-11-15] MEDS: SENNA W/DOCUSATE (SENOKOT S) TABLET PO SCH ×2 (08:01→21:18)
[2020-11-15] MEDS: polyethylene glycoL POWDER 17 GM (MIRALAX) PACK PO SCH ×2 (08:01→21:21)
--- NOTE | 2020-11-15 08:55 | Occupational Ther Daily Note ---
OT Current Status-Daily Note Subjective Pt reports pain as 5/10. RN in at start of session delivering meds. Appearance Pt left sitting in chair at end of treatment. All needs met and within reach. Mental Status/Objective Patient Orientation: Person, Place, Time, Situation ADL-Treatment Shower performed; majority completed in sitting. Pt stood only briefly to wash [place] area/buttocks with single UE support on grab bar. No LOB. Reminders given to utilize LHS when washing LB in effort to not exacerbate back symptoms. Cue for thoroughness with washing backside. Pt sat on shower chair to dress. Pt declines use of back filler operator and able to thread LE's into clothing without assist or use of AE. Sup for safety as she stood to manage over hips. Pt will often initiate bending at waist when donning socks and then c/o pain in back. Education/reminder on using AE or compensatory strategies. She stood at the sink to comb hair, no unsteadiness observed. Therapy Code Descriptions/Definitions Functional [place] Measure: 0=Not Assessed/NA 4=Minimal Assistance 1=Total Assistance 5=Supervision or Setup 2=Maximal Assistance 6=Modified [place] 3=Moderate Assistance 7=Complete IndependenceSCALE: Activities may be completed with or without assistive devices. 8-Pgeufcshqu-ltibtmt completes the activity by him/herself with no assistance from a helper. 5-Set-up or Clean-up Assistance-helper sets up or cleans up; patient completes activity. [place] assists only prior to or following the activity. 4-Supervision or Touching Assistance-helper provides verbal cues and/or touchin g/steadying and/or contact guard assistance as patient completes activity. Assistance may be provided throughout the activity or intermittently. 3-Partial/Moderate Assistance-helper does LESS THAN HALF the effort. [place] lifts, holds or supports trunk or limbs, but provides less than half the effort. 2-Substantial/Maximal Assistance-helper does MORE THAN HALF the effort. [place] lifts or holds trunk or limbs and provides more than half the effort. 8-Irodxuipg-bipivg does ALL the effort. Patient does none of the effort to complete the activity. Or, the assistance of 2 or more helpers is required for the patient to complete the activity. If activity was not attempted, code reason: 7-Patient Refused. 9-Not Applicable-not attempted and the patient did not perform the activity before the current illness, exacerbation or injury. 10-Not Attempted due to Environmental Limitations-(lack of equipment, weather restraints, etc.). 88-Not Attempted due to Medical Conditions or Safety Concerns. Bathing Location: L Arm, R Arm, L Upper Leg, R Upper Leg, L Lower Leg (including foot), R Lower Leg (including foot), Chest, Abdomen, Buttocks, Perineal Area Shower/Bathe Self (QC): 4 (SBA) Upper Body Dressing (QC): 5 Lower Body Dressing (QC): 4 (SBA) On/Off Footwear: 4 (SBA) Other Treatment Pt participated in simulated homemaking task (organizing/cleaning). Beans bags placed throughout room at various heights. Education/demonstration on safety/walker management as pt has tendency to push walker off to side or leave completely. Pt utilized back filler operator when retrieving angela bags from floor or low levels. Poor safety noted at times when attempting to reach too far out of [place] or over obstacles. Cues for safety needed. Pt can be impulsive and needs cues to slow pace. Pt with poor safety awareness and carry over with education/cues given previous date. Reminders on energy conservation and safety with walker. Several seated rest breaks needed this date due to fatigue and c/o back pain. Activity completed x2 both with and without walker; CGA without AD. Pt has tendency to increase gait speed when fatigue worsens and requires cues on pacing and safety. Education OT Patient Education: Correct positioning, Energy conservation, Modified ADL techniques, Progress toward Goal/Update tx plan, Purpose of tx/functional activities, Reviewed precautions, Rehab process, Safety issues, Transfer techniques, Use of adapted equipment Teaching Recipient: Patient Teaching Methods: Demonstration, Discussion Response to Teaching: Verbalize Understanding, Return Demonstration, Reinfor cement Needed OT Short Term Goals Short Term Goals Eatin Oral hygiene: 9 Toileting hygiene: 4 Shower/bathe self: 4 Upper body dressin Lower body dressin Putting on/taking off footwear: 4 OT Prison Goals Prison Goals Eating (QC): 6 Oral Hygiene (QC): 9 Toileting Hygiene (QC): 6 Shower/Bathe Self (QC): 6 Upper Body Dressing (QC): 6 Lower Body Dressing (QC): 6 On/Off Footwear (QC): 6 1=Demonstrate adherence to instructed precautions during ADL tasks. 2=Patient will verbalize/demonstrate understanding of assistive device s/modifications for ADL. 3=Patient will improve strength/tolerance for activity to enable patient to perform ADL's. OT Education/Plan Problem List/Assessment Assessment: Decreased Activ Tolerance, Decreased Safety Aware, Decreased UE Strength, Impaired Funct Balance, Impaired I ADL's, Impaired Self-Care Skills, Restricted Funct UE ROM Discharge Recommendations Plan/Recommendations: Continue POC Equpiment Recommendations-D/C: Rails on Tub/Shower, Metal Cut Off Saw Tender Treatment Plan/Plan of Care Treatment,Training & Education: Yes Patient would benefit from OT for education, treatment and training to promote independence in ADL's, mobility, safety and/or upper extremity function for ADL's. Plan of Care: ADL Retraining, Functional Mobility, Group Exercise/Act as Ind, UE Funct Exercise/Act Treatment Duration: Nov 24, 2020 Frequency: At least 5 of 7 days/Wk (IRF) Estimated Hrs Per Day: 1.5 hours per day Agreement: Yes Rehab Potential: Fair Time/GCodes Start Time: 08:00 Stop Time: 09:00 Total Time Billed (hr/min): 60 Billed Treatment Time 1, ADL x2 (30 min), FA x2 (30 min) Nenita Reyna OT Nov 15, 2020 08:55
--- NOTE | 2020-11-15 09:53 | Physical Therapy Daily Note ---
PT Daily Note-Current Subjective Pt sitting in recliner upon arrival. Pt agrees to PT. Pain Numeric Pain Scale: 8 Location: Lower Location Body Site: Back Pain Description: Ache, Chronic Mental Status Patient Orientation: Person, Place, Situation Transfers SCALE: Activities may be completed with or without assistive devices. 7-Zouhfdjloa-kdxatbb completes the activity by him/herself with no assistance from a helper. 5-Set-up or Clean-up Assistance-helper sets up or cleans up; patient completes activity. [place] assists only prior to or following the activity. 4-Supervision or Touching Assistance-helper provides verbal cues and/or touching/steadying and/or contact guard assistance as patient completes activity. Assistance may be provided throughout the activity or intermittently. 3-Partial/Moderate Assistance-helper does LESS THAN HALF the effort. [place] lifts, holds or supports trunk or limbs, but provides less than half the effort. 2-Substantial/Maximal Assistance-helper does MORE THAN HALF the effort. [place] lifts or holds trunk or limbs and provides more than half the effort. 8-Bqrpzlhdm-vqgldk does ALL the effort. Patient does none of the effort to complete the activity. Or, the assistance of 2 or more helpers is required for the patient to complete the activity. If activity was not attempted, code reason: 7-Patient Refused. 9-Not Applicable-not attempted and the patient did not perform the activity before the current illness, exacerbation or injury. 10-Not Attempted due to Environmental Limitations-(lack of equipment, weather restraints, etc.). 88-Not Attempted due to Medical Conditions or Safety Concerns. Sit to Stand (QC): 5 Weight Bearing Full Weight Bearing Full Weight Bearing Gait Training Does the Patient Walk?: Yes Distance: 150' x2 Walk 10 feet (QC): 5 Walk 50 ft with 2 Turns(QC): 4 Walk 150 ft (QC): 4 Gait Persons Needed: 1 Gait Assistive Device: FWW VC to walk w/in FWW for safety and proper posture. Wheelchair Training Does the Pt Use a Wheelchair?: No Stair Training Stair Training: Handrails/: 2 handrails #of Steps: 4 1 Step (curb) (QC): 4 4 Steps (QC): 4 Exercises Supine Ex: Ankle pumps, Quad Set, Heel Slides, Straight leg raise, Hip abd/add Supine Reps: 15 Seated Therapy Exercises: Ankle pumps, Long arc quads, Hip flexion, Hip abd/add, Glut set Seated Reps: 15 NuStep Minutes: 20 NuStep Workload: 4 Treatments TF to standing, declining need for BR. Amb in hallway then uses NuStep for 20m at WL 4. PANEL FLOW MACHINE OPERATOR issues and reviews written HEP for Supine & Seated Ex. Pt amb. 1 set of 4 steps. After RB, pt amb. in hallway and returns to room to rest in bed. All needs met, call light in hand. Assessment Current Status: Good Progress Pt reports chronic back pain during tx. VC given for safety while walking, staying closer to FWW. Pt is preoccupied with Dr Winston appt that will occur after tx and has to be redirected. PT Short Term Goals Short Term Goals Time Frame: Nov 17, 2020 Roll Left & Right: 6 Sit to lyin Lying to sitting on side of be: 5 Sit to stand: 4 Chair/amq-zm-afhsb transfer: 4 Walk 10 feet: 4 Walk 50 feet with two turns: 4 Walk 150 feet: 4 PT Prison Goals Prison Goals PT Bad Cloth Checker Goals Time Frame: Dec 01, 2020 Roll Left & Right (QC): 6 Sit to Lying (QC): 6 Lying-Sitting on Side/Bed(QC): 6 Sit to Stand (QC): 6 Chair/Otk-jp-Acxku Xfer(QC): 5 Toilet Transfer (QC): 5 Car Transfer (QC): 5 Does the Patient Walk: Yes Walk 10 feet (QC): 5 Walk 50ft with 2 Turns (QC): 5 Walk 150 ft (QC): 5 Walking 10ft on Uneven Surface: 5 1 Step (curb) (QC): 4 4 Steps (QC): 4 12 Steps (QC): 88 Picking up an Object (QC): 88 Wheel 50 feet with 2 turns (QC: 9 Wheel 150 feet: 9 PT Plan Problem List Problem List: Activity Tolerance, Functional Strength, Safety, Gait Treatment/Plan Treatment Plan: Continue Plan of Care Treatment Plan: Bed Mobility, Education, Functional Activity [place], Functional Strength, Group Therapy, Gait, Safety, Therapeutic Exercise, Transfers Treatment Duration: Dec 01, 2020 Frequency: At least 5 of 7 days/Wk (IRF) Estimated Hrs Per Day: 1.5 hours per day Patient and/or Family Agrees t: Yes Safety Risks/Education Patient Education: Gait Training, Steps, Issued Written HEP, Correct Positioning, Safety Issues Teaching Recipient: Patient Teaching Methods: Demonstration, Discussion Response to Teaching: Verbalize Understanding, Return Demonstration Time/GCodes Time In: 900 Time Out: 1000 Total Billed Treatment Time: 60 Total Billed Treatment 1, GT (15m), FA (15m) & EX x2 (30m) BHUMIKA HERNANDEZ PANEL FLOW MACHINE OPERATOR Nov 15, 2020 09:53
--- NOTE | 2020-11-15 10:52 | PM&R Progress Note ---
Subjective HPI/CC On Admission Date Seen by Provider: Nov 15, 2020 Time Seen by Provider: 10:30 Subjective/Events-last exam 11/15/2020: Pain is improved Bowels moving Sugars are 209/229 Diabetic education provided Voltaren gel and K pad has helped her back pain 11/14/2020: Patient doing really well Bowels moved yesterday Blood sugar is very labile Increasing Levemir to help with sugar spikes Creatinine 1.37 evidence of diabetic nephropathy 11/13/2020: Patient doing pretty well Elevated sugars noted Very impulsive Gave order for regular insulin 20 units for sugars greater than 300 11/12/2020: Patient doing really well Blood sugars much better We will discontinue the Hep-Lock Blood sugars vary Only took 1 pain pill today 11/11/2020: Patient doing pretty well Lower blood sugars have prompted me to decrease insulin Very compliant with carb limited diet here K pad to back has been helpful Bowels are moving Check meds and labs Creatinine 1.37 Review of Systems General: Fatigue Musculoskeletal: back pain Objective Exam Vital Signs Vital Signs Date Time Temp Pulse Resp B/P (MAP) Pulse Ox O2 Delivery O2 Flow Rate FiO2 11/15/20 21:41 Room Air 11/15/20 20:05 37.0 93 20 126/75 (92) 91 Capillary Refill : General Appearance: No Apparent Distress, WD/WN, Chronically ill, Obese HEENT: PERRL/EOMI, Normal ENT Inspection, Pharynx Normal Neck: Full Range of Motion, Normal Inspection, Non Tender, Supple, Carotid Bruit Respiratory: Chest Non Tender, Lungs Clear, Normal Breath Sounds, No Accessory Muscle Use, No Respiratory Distress Cardiovascular: Regular Rate, Rhythm, No Edema, No Gallop, No JVD, No Murmur, Normal Peripheral Pulses Gastrointestinal: Normal Bowel Sounds, No Organomegaly, No Pulsatile Mass, Non Tender, Soft Back: Normal Inspection, Decreased Range of Motion, Muscle Spasm, Vertebral Tenderness Extremity: Normal Capillary Refill, Normal Inspection, Normal Range of Motion, Non Tender, No Calf Tenderness, No Pedal Edema Neurologic/Psychiatric: Alert, Oriented x3, car restorer II-XII Norm as Tested, Abnormal Gait, Depressed Affect, Motor Weakness (Generalized) Skin: Normal Color, Warm/Dry Lymphatic: No Adenopathy Results/Procedures Lab Patient resulted labs reviewed. FIM Transfers Therapy Code Descriptions/Definitions Functional [place] Measure: 0=Not Assessed/NA 4=Minimal Assistance 1=Total Assistance 5=Supervision or Setup 2=Maximal Assistance 6=Modified [place] 3=Moderate Assistance 7=Complete IndependenceSCALE: Activities may be completed with or without assistive devices. 3-Xufdnnexgq-dngqahb completes the activity by him/herself with no assistance from a helper. 5-Set-up or Clean-up Assistance-helper sets up or cleans up; patient completes activity. [place] assists only prior to or following the activity. 4-Supervision or Touching Assistance-helper provides verbal cues and/or touc gino/steadying and/or contact guard assistance as patient completes activity. Assistance may be provided throughout the activity or intermittently. 3-Partial/Moderate Assistance-helper does LESS THAN HALF the effort. [place] lifts, holds or supports trunk or limbs, but provides less than half the effort. 2-Substantial/Maximal Assistance-helper does MORE THAN HALF the effort. [place] lifts or holds trunk or limbs and provides more than half the effort. 9-Bdecngdtf-frtphf does ALL the effort. Patient does none of the effort to complete the activity. Or, the assistance of 2 or more helpers is required for the patient to complete the activity. If activity was not attempted, code reason: 7-Patient Refused. 9-Not Applicable-not attempted and the patient did not perform the activity before the current illness, exacerbation or injury. 10-Not Attempted due to Environmental Limitations-(lack of equipment, weather restraints, etc.). 88-Not Attempted due to Medical Conditions or Safety Concerns. Roll Left to Right (QC): 4 Sit to Lying (QC): 3 Sit to Stand (QC): 5 Chair/Phs-ka-Sbarh Xfer(QC): 4 Car Transfer (QC): 3 Gait Training Does the Patient Walk?: Yes Distance: 150' x2 Walk 10 feet (QC): 5 Walk 50 ft with 2 Turns(QC): 4 Walk 150 ft (QC): 4 Walking 10ft/uneven surface-QC: 3 Gait Persons Needed: 1 Gait Assistive Device: FWW Wheelchair Training Does the Pt Use a Wheelchair?: No Wheel 50 ft with 2 turns (QC): 9 Wheel 150 ft (QC): 9 Stair Training Stair Training: Handrails/: 2 handrails #of Steps: 4 1 Step (curb) (QC): 4 4 Steps (QC): 4 12 Steps (QC): 88 Stairs: Pattern: Step to Balance Picking up an Object (QC): 88 ADL-Treatment Eating (QC): 6 Oral Hygiene (QC): 9 Bathing Location: L Arm, R Arm, L Upper Leg, R Upper Leg, L Lower Leg (including foot), R Lower Leg (including foot), Chest, Abdomen, Buttocks, Perineal Area Shower/Bathe Self (QC): 4 (SBA) Upper Body Dressing (QC): 5 Lower Body Dressing (QC): 4 (SBA) On/Off Footwear (QC): 4 (SBA) Toileting Hygiene (QC): 4 Toilet Transfer (QC): 4 Assessment/Plan Assessment and Plan Assess & Plan/Chief Complaint Assessment: Debility Multiple falls Current subacute T12 compression fracture sustained in fall Right olecranon injury Diabetes mellitus cgf-fq-dkyxsqw Noncompliant with diabetic diet Plan: Supportive care Fall risk prevention Aggressive therapy regimen 11/11/2020: Decrease insulin to prevent hypoglycemia Pain control Monitor closely 11/12/2020: Supportive care Pain pill working well Monitor diabetes 11/13/2020: Very impulsive Regular insulin for elevated sugar 11/14/2020: Decrease Levemir to close to home dose Monitor closely Intensive rehab 11/15/2020: Monitor sugar Pain control (1) Debility (2) Diabetes mellitus insulin dependent IDDM uncontrolled (3) Weakness Status: Acute (4) T12 compression fracture Status: Acute (5) Fall (on) (from) other stairs and steps, initial encounter Status: Acute (6) Back pain Status: Acute KATELYNN VÁZQUEZ DO Nov 15, 2020 10:52
[2020-11-15] MEDS ORDERED: PATIENT MAY USE OWN MED,SINGLE MED PO SCH (12:00)
[2020-11-15] MEDS ORDERED: NON-FORMULARY MEDICATION 1 EA EA INJ SCH (12:00)
--- NOTE | 2020-11-15 12:12 | Podiatry Progress Note ---
Standard Progress Note Progress Notes/Assess & Plan Date Seen by a Provider: Nov 15, 2020 Time Seen by a Provider: 12:10 Progress/Assessment & Plan Consultation was dictated. Foot care given. She is welcome to follow up as needed. Final Diagnosis Peripheral Neuropathy Onychomycosis. ANA Padron DPRonnell Nov 15, 2020 12:12
[2020-11-15] MEDS: CYCLOBENZAPRINE 10 MG (FLEXERIL) TAB PO PRN (12:21)
--- NOTE | 2020-11-15 12:56 | CONSULTATION REPORT ---
DATE OF SERVICE: 11/15/2020 REASON FOR CONSULTATION: Diabetic foot care. HISTORY OF PRESENT ILLNESS: This 65-year-old female is admitted to [facility] for rehabilitation. The patient has had difficulty using her upper extremities lately. She has had a history of a T12 compression fracture. She has also had multiple falls and has had difficulty with activities of daily living. She is unable to take care and care for her feet, in fact, in the past, she has used side cutting wire cutters for toenails. PAST MEDICAL HISTORY: Appendectomy, cholecystectomy, hysterectomy, and orthopedic surgery. History of hypertension, neuropathy, bladder infection, back injury, chronic back pain, insulin-dependent diabetes, sleep difficulty, anxiety, and depression. ALLERGIES: She has an allergy to MORPHINE and LISINOPRIL. PHYSICAL EXAMINATION: LOWER EXTREMITY: The patient has a 2/4 dorsalis pedis pulse bilaterally, 2/4 posterior tibial pulse bilaterally. Cap refill time is less than 3 seconds. Digital hair growth is minimal. Cool skin temperature noted to the toes bilaterally. NEUROLOGIC: The patient has diminished protective sensation with 10 gram monofilament wire examination bilaterally. Diminished vibratory sensation to the forefoot bilaterally. Also diminished deep tendon reflexes to the Achilles tendon. INTEGUMENTARY: The patient has a thick yellow dystrophic toenail with subungual debris R1, 2 and L2 toenails. No open wounds and no ecchymosis identified bilaterally. MUSCULOSKELETAL FINDINGS: The patient has contracted toes 2, 3, 4 and 5 bilaterally. There is 5/5 muscle strength to the four major quadrants of the foot bilaterally. ASSESSMENT: Diabetic neuropathy, onychomycosis, and hammer digit syndrome. PLAN: Various treatment options were discussed with the patient today. We went over the diabetic foot care in general. Her toenails were debrided R1, 2 and L2 digits and betadine applied. The patient is welcome to follow up in my office upon discharge for continuation of diabetic foot care. We also talked about appropriate shoegear and especially having extra depth in regard to protecting her hammer digit syndrome from becoming more symptomatic and problematic. Job ID: [id number] DocumentID: [id number] Dictated Date: 11/15/2020 12:10:20 [place] Conveyor Operator Date: 11/15/2020 12:55:39 Dictated By: ANA HERNANDEZ DPM
[2020-11-15] MEDS: VICTOZA 18 MG/3 ML SQ SCH (13:10)
--- NOTE | 2020-11-15 14:09 | Occupational Ther Daily Note ---
OT Current Status-Daily Note Subjective Pt reports pain as 5/10, pain meds given prior to OT arrival. Appearance Pt left sitting in chair. Alarm set, all needs within reach at end of session. ADL-Treatment Therapy Code Descriptions/Definitions Functional [place] Measure: 0=Not Assessed/NA 4=Minimal Assistance 1=Total Assistance 5=Supervision or Setup 2=Maximal Assistance 6=Modified [place] 3=Moderate Assistance 7=Complete IndependenceSCALE: Activities may be completed with or without assistive devices. 4-Mnjbzjjjba-bkpawjr completes the activity by him/herself with no assistance from a helper. 5-Set-up or Clean-up Assistance-helper sets up or cleans up; patient completes activity. [place] assists only prior to or following the activity. 4-Supervision or Touching Assistance-helper provides verbal cues and/or touching/steadying and/or contact guard assistance as patient completes activity. Assistance may be provided throughout the activity or intermittently. 3-Partial/Moderate Assistance-helper does LESS THAN HALF the effort. [place] lifts, holds or supports trunk or limbs, but provides less than half the effort. 2-Substantial/Maximal Assistance-helper does MORE THAN HALF the effort. [place] lifts or holds trunk or limbs and provides more than half the effort. 7-Hbsymgnie-sgfjab does ALL the effort. Patient does none of the effort to complete the activity. Or, the assistance of 2 or more helpers is required for the patient to complete the activity. If activity was not attempted, code reason: 7-Patient Refused. 9-Not Applicable-not attempted and the patient did not perform the activity before the current illness, exacerbation or injury. 10-Not Attempted due to Environmental Limitations-(lack of equipment, weather restraints, etc.). 88-Not Attempted due to Medical Conditions or Safety Concerns. Other Treatment Pt returning to bathroom with nurse at OT arrival. Continues to demonstrate poor safety awareness of walker, cues given for safety. While seated in chair she participated in BUE exercises including L AROM of wrist/digits, AAROM/PROM of elbow and shoulder, and Right AROM. Elbow extension performed within pain free range, ~40 degrees. Reinforcement on preforming AROM mobilizations as much as tolerated in effort to improve ROM, decrease stiffness/edema and increasing strength. Pt only able to recall 1 exercise despite performing in past sessions. At times, pt requires tactile cues for proper technique and to finish reps in set as she can become easily distracted. Education OT Patient Education: Correct positioning, Exercise program, Progress toward Goal/Update tx plan, Purpose of tx/functional activities, Rehab process, Safety issues Teaching Recipient: Patient Teaching Methods: Demonstration, Discussion Response to Teaching: Return Demonstration, Reinforcement Needed OT Short Term Goals Short Term Goals Eatin Oral hygiene: 9 Toileting hygiene: 4 Shower/bathe self: 4 Upper body dressin Lower body dressin Putting on/taking off footwear: 4 OT [facility] Goals [facility] Goals Eating (QC): 6 Oral Hygiene (QC): 9 Toileting Hygiene (QC): 6 Shower/Bathe Self (QC): 6 Upper Body Dressing (QC): 6 Lower Body Dressing (QC): 6 On/Off Footwear (QC): 6 1=Demonstrate adherence to instructed precautions during ADL tasks. 2=Patient will verbalize/demonstrate understanding of assistive devices/modifications for ADL. 3=Patient will improve strength/tolerance for activity to enable patient to perform ADL's. OT Education/Plan Problem List/Assessment Assessment: Decreased Activ Tolerance, Decreased Safety Aware, Decreased UE Strength, Impaired Funct Balance, Impaired I ADL's, Impaired Self-Care Skills, Restricted Funct UE ROM Discharge Recommendations Plan/Recommendations: Continue POC Treatment Plan/Plan of Care Treatment,Training & Education: Yes Patient would benefit from OT for education, treatment and training to promote independence in ADL's, mobility, safety and/or upper extremity function for ADL's. Plan of Care: ADL Retraining, Functional Mobility, Group Exercise/Act as Ind, UE Funct Exercise/Act Treatment Duration: Nov 24, 2020 Frequency: At least 5 of 7 days/Wk (IRF) Estimated Hrs Per Day: 1.5 hours per day Agreement: Yes Rehab Potential: Fair Time/GCodes Start Time: 12:50 Stop Time: 13:20 Total Time Billed (hr/min): 30 Billed Treatment Time 1 visit, EX otoniel MaddoxNenita skaggs OT Nov 15, 2020 14:09
[2020-11-15] MEDS: ENOXAPARIN 40 MG/0.4 ML (LOVENOX) SYR SC SCH (14:31)
--- NOTE | 2020-11-15 15:00 | Physical Therapy Daily Note ---
PT Daily Note-Current Subjective Pt sitting up in bed upon arrival. Pt agrees to PT. Mental Status Patient Orientation: Person, Place, Situation Transfers SCALE: Activities may be completed with or without assistive devices. 2-Fegjuwzlkj-awcvfft completes the activity by him/herself with no assistance from a helper. 5-Set-up or Clean-up Assistance-helper sets up or cleans up; patient completes activity. [place] assists only prior to or following the activity. 4-Supervision or Touching Assistance-helper provides verbal cues and/or touching/steadying and/or contact guard assistance as patient completes activity. Assistance may be provided throughout the activity or intermittently. 3-Partial/Moderate Assistance-helper does LESS THAN HALF the effort. [place] lifts, holds or supports trunk or limbs, but provides less than half the effort. 2-Substantial/Maximal Assistance-helper does MORE THAN HALF the effort. [place] lifts or holds trunk or limbs and provides more than half the effort. 6-Celgtxdcb-rowgou does ALL the effort. Patient does none of the effort to complete the activity. Or, the assistance of 2 or more helpers is required for the patient to complete the activity. If activity was not attempted, code reason: 7-Patient Refused. 9-Not Applicable-not attempted and the patient did not perform the activity before the current illness, exacerbation or injury. 10-Not Attempted due to Environmental Limitations-(lack of equipment, weather restraints, etc.). 88-Not Attempted due to Medical Conditions or Safety Concerns. Sit to Stand (QC): 4 Toilet Transfer (QC): 4 Weight Bearing Full Weight Bearing Full Weight Bearing Exercises Supine Ex: Ankle pumps, Quad Set, Glut sets, Heel Slides, Straight leg raise, Hip abd/add Supine Reps: 15 Seated Therapy Exercises: Ankle pumps, Hip flexion, Hip abd/add Seated Reps: 15 Treatments TF to standing and uses BR. Pt completes Supine & Seated EX with RB as needed. Pt resting in bed at end of tx. All needs met, call light in hand. Assessment Current Status: Good Progress Pt fatigues and needs occasional RBs. PT Short Term Goals Short Term Goals Time Frame: Nov 17, 2020 Roll Left & Right: 6 Sit to lyin Lying to sitting on side of be: 5 Sit to stand: 4 Chair/ghn-oh-vragr transfer: 4 Walk 10 feet: 4 Walk 50 feet with two turns: 4 Walk 150 feet: 4 PT Detention Goals Detention Goals PT Detention Goals Time Frame: Dec 01, 2020 Roll Left & Right (QC): 6 Sit to Lying (QC): 6 Lying-Sitting on Side/Bed(QC): 6 Sit to Stand (QC): 6 Chair/Xec-er-Dszhp Xfer(QC): 5 Toilet Transfer (QC): 5 Car Transfer (QC): 5 Does the Patient Walk: Yes Walk 10 feet (QC): 5 Walk 50ft with 2 Turns (QC): 5 Walk 150 ft (QC): 5 Walking 10ft on Uneven Surface: 5 1 Step (curb) (QC): 4 4 Steps (QC): 4 12 Steps (QC): 88 Picking up an Object (QC): 88 Wheel 50 feet with 2 turns (QC: 9 Wheel 150 feet: 9 PT Plan Problem List Problem List: Activity Tolerance, Functional Strength Treatment/Plan Treatment Plan: Continue Plan of Care Treatment Plan: Bed Mobility, Education, Functional Activity [place], Functional Strength, Group Therapy, Gait, Safety, Therapeutic Exercise, Transfers Treatment Duration: Dec 01, 2020 Frequency: At least 5 of 7 days/Wk (IRF) Estimated Hrs Per Day: 1.5 hours per day Patient and/or Family Agrees t: Yes Safety Risks/Education Patient Education: Correct Positioning Teaching Recipient: Patient Teaching Methods: Discussion Response to Teaching: Verbalize Understanding Time/GCodes Time In: 1330 Time Out: 1400 Total Billed Treatment Time: 30 Total Billed Treatment 1, EX (20m) & FA (10m) BHUMIKA HERNANDEZ NURSE SUBSTANCE ABUSE Nov 15, 2020 15:00
[2020-11-15] MEDS: CELECOXIB 100 MG (CeleBREX) CAP PO SCH (17:34)
[2020-11-15] MEDS: SIMvastatin 10 MG (ZOCOR) TAB PO SCH (17:34)
[2020-11-15] MEDS: LOSARTAN 50 MG (COZAAR) TAB PO SCH (17:34)
[2020-11-15 20:05] VITALS: BP 126/75
[2020-11-15] MEDS: AMITRIPTYLINE 50 MG (ELAVIL) TAB PO SCH (21:21)
[2020-11-16] MEDS: inSUlin ASPART (NovoLOG) 1 UNIT/0.01 ML (CHARGE PER UNIT) SC SCH ×4 (07:04→21:55)
[2020-11-16 07:41] VITALS: BP 143/86
[2020-11-16] MEDS: CALCIUM CARBONATE 600 MG (CALCARB) TAB PO SCH (08:05)
[2020-11-16] MEDS: HYDROcodone/APAP 7.5 MG/325 MG (LORTAB, LORCET PLUS) TABLET PO PRN ×2 (08:05→17:45)
[2020-11-16] MEDS: MECLIZINE 25 MG (ANTIVERT) TAB PO SCH ×2 (08:05→21:30)
[2020-11-16] MEDS: ASPIRIN E.C. 81 MG (ECOTRIN) TAB PO SCH (08:05)
[2020-11-16] MEDS: GABAPENTIN 300 MG (NEURONTIN) CAP PO SCH ×3 (08:05→21:30)
[2020-11-16] MEDS: SENNA W/DOCUSATE (SENOKOT S) TABLET PO SCH ×2 (08:05→21:30)
[2020-11-16] MEDS: VICTOZA 18 MG/3 ML SQ SCH (08:06)
--- NOTE | 2020-11-16 08:59 | Occupational Ther Daily Note ---
OT Current Status-Daily Note Subjective Pt reports pain in back as 9/10. RN in to administer pain meds at start of session. Appearance Pt left sitting in chair, alarm set and all needs within reach at OT departure. ADL-Treatment Pt stood at sink for grooming tasks. CGA needed this date secondary to increased unsteadiness and BLE shakiness. Continues to require cues for placement of walker at sink and to not forget walker when leaving bathroom. She sat to don clothing. Poor carry over with strategies/cues given in past sessions. When cued, pt will often reply "yes, yes I know" but will not initiate without cues. She was able to don socks and pants with use of cross over method post cue, close sup for safety as she stood to manage pants over hips. Re-education on reducing spinal flexion during functional tasks. Therapy Code Descriptions/Definitions Functional [place] Measure: 0=Not Assessed/NA 4=Minimal Assistance 1=Total Assistance 5=Supervision or Setup 2=Maximal Assistance 6=Modified [place] 3=Moderate Assistance 7=Complete IndependenceSCALE: Activities may be completed with or without assistive devices. 9-Wdmfhnbheu-cisoqed completes the activity by him/herself with no assistance from a helper. 5-Set-up or Clean-up Assistance-helper sets up or cleans up; patient completes activity. [place] assists only prior to or following the activity. 4-Supervision or Touching Assistance-helper provides verbal cues and/or touching/steadying and/or contact guard assistance as patient completes activity. Assistance may be provided throughout the activity or intermittently. 3-Partial/Moderate Assistance-helper does LESS THAN HALF the effort. [place] lifts, holds or supports trunk or limbs, but provides less than half the effort. 2-Substantial/Maximal Assistance-helper does MORE THAN HALF the effort. [place] lifts or holds trunk or limbs and provides more than half the effort. 1-Yifrseivm-bryyka does ALL the effort. Patient does none of the effort to complete the activity. Or, the assistance of 2 or more helpers is required for the patient to complete the activity. If activity was not attempted, code reason: 7-Patient Refused. 9-Not Applicable-not attempted and the patient did not perform the activity befo re the current illness, exacerbation or injury. 10-Not Attempted due to Environmental Limitations-(lack of equipment, weather re straints, etc.). 88-Not Attempted due to Medical Conditions or Safety Concerns. Upper Body Dressing (QC): 4 Lower Body Dressing (QC): 4 On/Off Footwear: 4 Toileting Hygiene (QC): 4 Toilet Transfer (QC): 4 Other Treatment Pt ambulated to/from therapy gym. Increased balance assist required this date, Min A. With distractions, unsteadiness increases. Cues for attention to task. Wh en turning, cues needed to keep walker on floor. 3 Mild lateral LOB this date, needing Min a to maintain upright. Poor carry over with walker management and several cues needed this date to keep walker closer to body as well as stay within frame vs off to the side. Pt participated in standing activity x2 (ring toss) with goal to promote increased standing tolerance, balance, functional reach, posture, and body mechanics. Single UE support on walker throughout activity. Pt challenged by incorporating stepping strategy when tossing. Min A required for balance. Pt utilized production tool engineer to retrieve rings from floor. Reminders/demonstration on not reaching too far out of [place] and cues for safety when navigating around tight spaces/obstacles. Several sitting rest breaks needed this date. Education OT Patient Education: Correct positioning, Energy conservation, Modified ADL techniques, Progress toward Goal/Update tx plan, Purpose of tx/functional activities, Reviewed precautions, Rehab process, Safety issues, Transfer techniques Teaching Recipient: Patient Teaching Methods: Demonstration, Discussion Response to Teaching: Reinforcement Needed OT Short Term Goals Short Term Goals Eatin Oral hygiene: 9 Toileting hygiene: 4 Shower/bathe self: 4 Upper body dressin Lower body dressin Putting on/taking off footwear: 4 OT Residential Goals Residential Goals Eating (QC): 6 Oral Hygiene (QC): 9 Toileting Hygiene (QC): 6 Shower/Bathe Self (QC): 6 Upper Body Dressing (QC): 6 Lower Body Dressing (QC): 6 On/Off Footwear (QC): 6 1=Demonstrate adherence to instructed precautions during ADL tasks. 2=Patient will verbalize/demonstrate understanding of assistive devices/modifications for ADL. 3=Patient will improve strength/tolerance for activity to enable patient to perform ADL's. OT Education/Plan Problem List/Assessment Assessment: Decreased Activ Tolerance, Decreased Safety Aware, Decreased UE Strength, Impaired Coordination, Impaired Funct Balance, Impaired I ADL's, Impaired Self-Care Skills, Restricted Funct UE ROM Discharge Recommendations Plan/Recommendations: Continue POC Equpiment Recommendations-D/C: Instructor Knitting Treatment Plan/Plan of Care Treatment,Training & Education: Yes Patient would benefit from OT for education, treatment and training to promote independence in ADL's, mobility, safety and/or upper extremity function for ADL's. Plan of Care: ADL Retraining, Functional Mobility, Group Exercise/Act as Ind, UE Funct Exercise/Act Treatment Duration: Nov 24, 2020 Frequency: At least 5 of 7 days/Wk (IRF) Estimated Hrs Per Day: 1.5 hours per day Agreement: Yes Rehab Potential: Fair Time/GCodes Start Time: 07:55 Stop Time: 09:00 Total Time Billed (hr/min): 65 Billed Treatment Time 1 visit, ADL x2, FA x2 Nenita Reyna OT Nov 16, 2020 08:59
[2020-11-16] MEDS: polyethylene glycoL POWDER 17 GM (MIRALAX) PACK PO SCH ×2 (09:32→21:45)
--- NOTE | 2020-11-16 11:10 | PM&R Progress Note ---
Subjective HPI/CC On Admission Date Seen by Provider: Nov 16, 2020 Time Seen by Provider: 11:20 Subjective/Events-last exam 11/16/2020: Patient doing well Victoza is really helping blood sugar Pain med use is declining Loss of balance is an issue 11/15/2020: Pain is improved Bowels moving Sugars are 209/229 Diabetic education provided Voltaren gel and K pad has helped her back pain 11/14/2020: Patient doing really well Bowels moved yesterday Blood sugar is very labile Increasing Levemir to help with sugar spikes Creatinine 1.37 evidence of diabetic nephropathy 11/13/2020: Patient doing pretty well Elevated sugars noted Very impulsive Gave order for regular insulin 20 units for sugars greater than 300 11/12/2020: Patient doing really well Blood sugars much better We will discontinue the Hep-Lock Blood sugars vary Only took 1 pain pill today 11/11/2020: Patient doing pretty well Lower blood sugars have prompted me to decrease insulin Very compliant with carb limited diet here K pad to back has been helpful Bowels are moving Check meds and labs Creatinine 1.37 Review of Systems General: Fatigue Neurological: Weakness, Incoordination Objective Exam Vital Signs Vital Signs Date Time Temp Pulse Resp B/P (MAP) Pulse Ox O2 Delivery O2 Flow Rate FiO2 11/16/20 20:30 37.6 90 18 125/81 (96) 92 11/16/20 20:30 Room Air Capillary Refill : General Appearance: No Apparent Distress, WD/WN, Chronically ill, Obese HEENT: PERRL/EOMI, Normal ENT Inspection, Pharynx Normal Neck: Full Range of Motion, Normal Inspection, Non Tender, Supple, Carotid Bruit Respiratory: Chest Non Tender, Lungs Clear, Normal Breath Sounds, No Accessory Muscle Use, No Respiratory Distress Cardiovascular: Regular Rate, Rhythm, No Edema, No Gallop, No JVD, No Murmur, Normal Peripheral Pulses Gastrointestinal: Normal Bowel Sounds, No Organomegaly, No Pulsatile Mass, Non Tender, Soft Back: Normal Inspection, Decreased Range of Motion, Muscle Spasm, Vertebral Tenderness Extremity: Normal Capillary Refill, Normal Inspection, Normal Range of Motion, Non Tender, No Calf Tenderness, No Pedal Edema Neurologic/Psychiatric: Alert, Oriented x3, line director II-XII Norm as Tested, Abnormal Gait, Depressed Affect, Motor Weakness (Generalized) Skin: Normal Color, Warm/Dry Lymphatic: No Adenopathy Results/Procedures Lab Patient resulted labs reviewed. FIM Transfers Therapy Code Descriptions/Definitions Functional [place] Measure: 0=Not Assessed/NA 4=Minimal Assistance 1=Total Assistance 5=Supervision or Setup 2=Maximal Assistance 6=Modified [place] 3=Moderate Assistance 7=Complete IndependenceSCALE: Activities may be completed with or without assistive devices. 2-Cnlecmmdfo-ojqidbl completes the activity by him/herself with no assistance from a helper. 5-Set-up or Clean-up Assistance-helper sets up or cleans up; patient completes activity. [place] assists only prior to or following the activity. 4-Supervision or Touching Assistance-helper provides verbal cues and/or touching/steadying and/or contact guard assistance as patient completes activity. Assistance may be provided throughout the activity or intermittently. 3-Partial/Moderate Assistance-helper does LESS THAN HALF the effort. [place] lifts, holds or supports trunk or limbs, but provides less than half the effort. 2-Substantial/Maximal Assistance-helper does MORE THAN HALF the effort. [place] lifts or holds trunk or limbs and provides more than half the effort. 8-Asjdohvtu-gpmqkn does ALL the effort. Patient does none of the effort to complete the activity. Or, the assistance of 2 or more helpers is required for the patient to complete the activity. If activity was not attempted, code reason: 7-Patient Refused. 9-Not Applicable-not attempted and the patient did not perform the activity before the current illness, exacerbation or injury. 10-Not Attempted due to Environmental Limitations-(lack of equipment, weather restraints, etc.). 88-Not Attempted due to Medical Conditions or Safety Concerns. Roll Left to Right (QC): 4 Sit to Lying (QC): 3 Sit to Stand (QC): 4 Chair/Hke-gq-Oqiga Xfer(QC): 4 Car Transfer (QC): 3 Gait Training Does the Patient Walk?: Yes Distance: 150' x2 Walk 10 feet (QC): 5 Walk 50 ft with 2 Turns(QC): 4 Walk 150 ft (QC): 4 Walking 10ft/uneven surface-QC: 3 Gait Persons Needed: 1 Gait Assistive Device: FWW Wheelchair Training Does the Pt Use a Wheelchair?: No Wheel 50 ft with 2 turns (QC): 9 Wheel 150 ft (QC): 9 Stair Training Stair Training: Handrails/: 2 handrails #of Steps: 4 1 Step (curb) (QC): 4 4 Steps (QC): 4 12 Steps (QC): 88 Stairs: Pattern: Step to Balance Picking up an Object (QC): 88 ADL-Treatment Eating (QC): 6 Oral Hygiene (QC): 9 Bathing Location: L Arm, R Arm, L Upper Leg, R Upper Leg, L Lower Leg (including foot), R Lower Leg (including foot), Chest, Abdomen, Buttocks, Perineal Area Shower/Bathe Self (QC): 4 (SBA) Upper Body Dressing (QC): 4 Lower Body Dressing (QC): 4 On/Off Footwear (QC): 4 Toileting Hygiene (QC): 4 Toilet Transfer (QC): 4 Assessment/Plan Assessment and Plan Assess & Plan/Chief Complaint Assessment: Debility Multiple falls Current subacute T12 compression fracture sustained in fall Right olecranon injury Diabetes mellitus ged-aq-sohkiys Noncompliant with diabetic diet Plan: Supportive care Fall risk prevention Aggressive therapy regimen 11/11/2020: Decrease insulin to prevent hypoglycemia Pain control Monitor closely 11/12/2020: Supportive care Pain pill working well Monitor diabetes 11/13/2020: Very impulsive Regular insulin for elevated sugar 11/14/2020: Decrease Levemir to close to home dose Monitor closely Intensive rehab 11/15/2020: Monitor sugar Pain control 11/16/2020: Continue focus on balance dysfunction Fall risk (1) Debility (2) Diabetes mellitus insulin dependent IDDM uncontrolled (3) Weakness Status: Acute (4) T12 compression fracture Status: Acute (5) Fall (on) (from) other stairs and steps, initial encounter Status: Acute (6) Back pain Status: Acute KATELYNN VÁZQUEZ DO Nov 16, 2020 11:10
--- NOTE | 2020-11-16 12:11 | Occupational Ther Daily Note ---
OT Current Status-Daily Note Subjective "I'm just so tired from this morning, I don't why I feel weaker." Appearance Pt left sitting in chair, all needs within reach, entering room. ADL-Treatment Therapy Code Descriptions/Definitions Functional [place] Measure: 0=Not Assessed/NA 4=Minimal Assistance 1=Total Assistance 5=Supervision or Setup 2=Maximal Assistance 6=Modified [place] 3=Moderate Assistance 7=Complete IndependenceSCALE: Activities may be completed with or without assistive devices. 4-Bomyefdexl-feigudl completes the activity by him/herself with no assistance from a helper. 5-Set-up or Clean-up Assistance-helper sets up or cleans up; patient completes activity. [place] assists only prior to or following the activity. 4-Supervision or Touching Assistance-helper provides verbal cues and/or touching/steadying and/or contact guard assistance as patient completes activity. Assistance may be provided throughout the activity or intermittently. 3-Partial/Moderate Assistance-helper does LESS THAN HALF the effort. [place] lifts, holds or supports trunk or limbs, but provides less than half the effort. 2-Substantial/Maximal Assistance-helper does MORE THAN HALF the effort. [place] lifts or holds trunk or limbs and provides more than half the effort. 2-Sqfbfelni-rjjgkn does ALL the effort. Patient does none of the effort to complete the activity. Or, the assistance of 2 or more helpers is required for the patient to complete the activity. If activity was not attempted, code reason: 7-Patient Refused. 9-Not Applicable-not attempted and the patient did not perform the activity before the current illness, exacerbation or injury. 10-Not Attempted due to Environmental Limitations-(lack of equipment, weather restraints, etc.). 88-Not Attempted due to Medical Conditions or Safety Concerns. Other Treatment Pt scooted far down in bed at OT arrival. Encouragement to transfer for chair for improved posture. Increased sit>stand assist required: min-mod. While seated in chair she participated in BUE exercises including L AROM of wrist/digits, AAROM/PROM of elbow and shoulder, and Right AROM. Elbow extension performed within pain free range. Pt only able to recall 1 exercise despite performing in past sessions. At times, pt requires tactile cues for proper technique and to finish reps in set as she can become easily distracted.Pt able to tolerate 1# hand held weight with all RUE exercises. 10 x1 in all planes. Pt also performed seated core strengthening exercises. Cues for proper technique and using core muscles vs trunk. Poor core strength noted. Education OT Patient Education: Correct positioning, Energy conservation, Exercise program, Modified ADL techniques, Progress toward Goal/Update tx plan, Purpose of tx/functional activities, Safety issues, Transfer techniques Teaching Recipient: Patient Teaching Methods: Demonstration, Discussion Response to Teaching: Reinforcement Needed OT Short Term Goals Short Term Goals Eatin Oral hygiene: 9 Toileting hygiene: 4 Shower/bathe self: 4 Upper body dressin Lower body dressin Putting on/taking off footwear: 4 OT Usp Goals Airborne Weapons Technical Manager Goals Eating (QC): 6 Oral Hygiene (QC): 9 Toileting Hygiene (QC): 6 Shower/Bathe Self (QC): 6 Upper Body Dressing (QC): 6 Lower Body Dressing (QC): 6 On/Off Footwear (QC): 6 1=Demonstrate adherence to instructed precautions during ADL tasks. 2=Patient will verbalize/demonstrate understanding of assistive devices/modifications for ADL. 3=Patient will improve strength/tolerance for activity to enable patient to perform ADL's. OT Education/Plan Problem List/Assessment Assessment: Decreased Activ Tolerance, Decreased Safety Aware, Decreased UE Strength, Impaired Coordination, Impaired Funct Balance, Impaired I ADL's, I mpaired Self-Care Skills, Restricted Funct UE ROM Discharge Recommendations Plan/Recommendations: Continue POC Treatment Plan/Plan of Care Patient would benefit from OT for education, treatment and training to promote independence in ADL's, mobility, safety and/or upper extremity function for ADL's. Plan of Care: ADL Retraining, Functional Mobility, Group Exercise/Act as Ind, UE Funct Exercise/Act Treatment Duration: Nov 24, 2020 Frequency: At least 5 of 7 days/Wk (IRF) Estimated Hrs Per Day: 1.5 hours per day Agreement: Yes Rehab Potential: Fair Time/GCodes Start Time: 11:40 Stop Time: 12:05 Total Time Billed (hr/min): 25 Billed Treatment Time 1 visit, EX x2 Nenita Reyna OT Nov 16, 2020 12:11
--- NOTE | 2020-11-16 12:14 | Physical Therapy Daily Note ---
PT Daily Note-Current Subjective Pt sitting in recliner upon arrival. Pt agrees to PT. Pt reports feeling weaker today, OT had also agreed. Mental Status Patient Orientation: Person, Place, Situation Transfers SCALE: Activities may be completed with or without assistive devices. 6-Dfyixzvpba-bwrujjf completes the activity by him/herself with no assistance from a helper. 5-Set-up or Clean-up Assistance-helper sets up or cleans up; patient completes activity. [place] assists only prior to or following the activity. 4-Supervision or Touching Assistance-helper provides verbal cues and/or touching/steadying and/or contact guard assistance as patient completes activity. Assistance may be provided throughout the activity or intermittently. 3-Partial/Moderate Assistance-helper does LESS THAN HALF the effort. [place] lifts, holds or supports trunk or limbs, but provides less than half the effort. 2-Substantial/Maximal Assistance-helper does MORE THAN HALF the effort. [place] lifts or holds trunk or limbs and provides more than half the effort. 9-Uosknhdpx-qyfvwr does ALL the effort. Patient does none of the effort to complete the activity. Or, the assistance of 2 or more helpers is required for the patient to complete the activity. If activity was not attempted, code reason: 7-Patient Refused. 9-Not Applicable-not attempted and the patient did not perform the activity before the current illness, exacerbation or injury. 10-Not Attempted due to Environmental Limitations-(lack of equipment, weather restraints, etc.). 88-Not Attempted due to Medical Conditions or Safety Concerns. Sit to Stand (QC): 4 Weight Bearing Full Weight Bearing Full Weight Bearing Gait Training Does the Patient Walk?: Yes Distance: 150' x2 Walk 10 feet (QC): 4 Walk 50 ft with 2 Turns(QC): 4 Walk 150 ft (QC): 4 Gait Persons Needed: 1 Gait Assistive Device: FWW VC for safety, prevention of drifting & not running into objects. Exercises NuStep Minutes: 13 NuStep Workload: 4 Treatments TF to standing, declines need for BR. Amb. in hallway then uses NuStep for 13m at WL 4. Pt takes short RB then amb. in hallway before returning to room. Pt resting in recliner with all needs met, call light in hand. Assessment Current Status: Fair Progress Pt demonstrates increased weakness and drifts when walks. Pt needs VC for safety evon. with avoiding objects in hallway. PT Short Term Goals Short Term Goals Time Frame: Nov 17, 2020 Roll Left & Right: 6 Sit to lyin Lying to sitting on side of be: 5 Sit to stand: 4 Chair/xyn-hy-qhyjf transfer: 4 Walk 10 feet: 4 Walk 50 feet with two turns: 4 Walk 150 feet: 4 PT Elementary Teacher Goals Elementary Teacher Goals PT Assisted Goals Time Frame: Dec 01, 2020 Roll Left & Right (QC): 6 Sit to Lying (QC): 6 Lying-Sitting on Side/Bed(QC): 6 Sit to Stand (QC): 6 Chair/Sok-xp-Nnubg Xfer(QC): 5 Toilet Transfer (QC): 5 Car Transfer (QC): 5 Does the Patient Walk: Yes Walk 10 feet (QC): 5 Walk 50ft with 2 Turns (QC): 5 Walk 150 ft (QC): 5 Walking 10ft on Uneven Surface: 5 1 Step (curb) (QC): 4 4 Steps (QC): 4 12 Steps (QC): 88 Picking up an Object (QC): 88 Wheel 50 feet with 2 turns (QC: 9 Wheel 150 feet: 9 PT Plan Problem List Problem List: Activity Tolerance, Functional Strength, Safety, Gait Treatment/Plan Treatment Plan: Continue Plan of Care Treatment Plan: Bed Mobility, Education, Functional Activity [place], Functional Strength, Group Therapy, Gait, Safety, Therapeutic Exercise, Transfers Treatment Duration: Dec 01, 2020 Frequency: At least 5 of 7 days/Wk (IRF) Estimated Hrs Per Day: 1.5 hours per day Patient and/or Family Agrees t: Yes Safety Risks/Education Patient Education: Gait Training, Correct Positioning, Safety Issues Teaching Recipient: Patient Teaching Methods: Discussion Response to Teaching: Reinforcement Needed Time/GCodes Time In: 900 Time Out: 1000 Total Billed Treatment Time: 60 Total Billed Treatment 1, GT x2 (25m), EX (20m) & FA (15m) BHUMIKA HERNANDEZ REFURBISH TECHNICIAN Nov 16, 2020 12:14
[2020-11-16] MEDS: ENOXAPARIN 40 MG/0.4 ML (LOVENOX) SYR SC SCH (13:00)
--- NOTE | 2020-11-16 13:33 | Physical Therapy Daily Note ---
PT Daily Note-Current Subjective Pt sitting in recliner upon arrival. Pt agrees to PT, declines need for BR. Pain Location: Lower Location Body Site: Back Pain Description: Ache, Chronic Comment: Pt reports but doesn't rate Mental Status Patient Orientation: Person, Place, Situation Transfers SCALE: Activities may be completed with or without assistive devices. 0-Mbfbnrmkvn-ilhubuj completes the activity by him/herself with no assistance from a helper. 5-Set-up or Clean-up Assistance-helper sets up or cleans up; patient completes activity. [place] assists only prior to or following the activity. 4-Supervision or Touching Assistance-helper provides verbal cues and/or touching/steadying and/or contact guard assistance as patient completes activity. Assistance may be provided throughout the activity or intermittently. 3-Partial/Moderate Assistance-helper does LESS THAN HALF the effort. [place] lifts, holds or supports trunk or limbs, but provides less than half the effort. 2-Substantial/Maximal Assistance-helper does MORE THAN HALF the effort. [place] lifts or holds trunk or limbs and provides more than half the effort. 9-Qcgsfhosn-aqlfhx does ALL the effort. Patient does none of the effort to complete the activity. Or, the assistance of 2 or more helpers is required for the patient to complete the activity. If activity was not attempted, code reason: 7-Patient Refused. 9-Not Applicable-not attempted and the patient did not perform the activity before the current illness, exacerbation or injury. 10-Not Attempted due to Environmental Limitations-(lack of equipment, weather restraints, etc.). 88-Not Attempted due to Medical Conditions or Safety Concerns. Weight Bearing Full Weight Bearing Full Weight Bearing Exercises Supine Ex: Ankle pumps, Quad Set, Glut sets, Heel Slides, Hip abd/add Supine Reps: 15 Seated Therapy Exercises: Ankle pumps, Long arc quads, Hip flexion, Hip abd/add Seated Reps: 15 Treatments Pt completes Supine & Seated Ex at recliner. Declines need for BR. Pt resting in recliner at end of tx. All needs met, call light in hand. Assessment Current Status: Fair Progress Pt fatigues easily and needs RB. PT Short Term Goals Short Term Goals Time Frame: Nov 17, 2020 Roll Left & Right: 6 Sit to lyin Lying to sitting on side of be: 5 Sit to stand: 4 Chair/utj-qv-fsequ transfer: 4 Walk 10 feet: 4 Walk 50 feet with two turns: 4 Walk 150 feet: 4 PT Mcfp Goals Mcfp Goals PT Mcfp Goals Time Frame: Dec 01, 2020 Roll Left & Right (QC): 6 Sit to Lying (QC): 6 Lying-Sitting on Side/Bed(QC): 6 Sit to Stand (QC): 6 Chair/Rto-le-Xbqkv Xfer(QC): 5 Toilet Transfer (QC): 5 Car Transfer (QC): 5 Does the Patient Walk: Yes Walk 10 feet (QC): 5 Walk 50ft with 2 Turns (QC): 5 Walk 150 ft (QC): 5 Walking 10ft on Uneven Surface: 5 1 Step (curb) (QC): 4 4 Steps (QC): 4 12 Steps (QC): 88 Picking up an Object (QC): 88 Wheel 50 feet with 2 turns (QC: 9 Wheel 150 feet: 9 PT Plan Problem List Problem List: Activity Tolerance, Functional Strength Treatment/Plan Treatment Plan: Continue Plan of Care Treatment Plan: Bed Mobility, Education, Functional Activity Remy, Functional Strength, Group Therapy, Gait, Safety, Therapeutic Exercise, Transfers Treatment Duration: Dec 01, 2020 Frequency: At least 5 of 7 days/Wk (IRF) Estimated Hrs Per Day: 1.5 hours per day Patient and/or Family Agrees t: Yes Safety Risks/Education Patient Education: Correct Positioning Teaching Recipient: Patient Teaching Methods: Discussion Response to Teaching: Verbalize Understanding Time/GCodes Time In: 1300 Time Out: 1330 Total Billed Treatment Time: 30 Total Billed Treatment 1, EX x2 (30m) BHUMIKA HERNANDEZ TELEGRAPH PRINTER MECHANIC Nov 16, 2020 13:33
[2020-11-16] MEDS: LOSARTAN 50 MG (COZAAR) TAB PO SCH (17:17)
[2020-11-16] MEDS: CELECOXIB 100 MG (CeleBREX) CAP PO SCH (17:17)
[2020-11-16] MEDS: SIMvastatin 10 MG (ZOCOR) TAB PO SCH (17:17)
[2020-11-16 20:30] VITALS: BP 125/81
[2020-11-16] MEDS: AMITRIPTYLINE 50 MG (ELAVIL) TAB PO SCH (21:30)
[2020-11-17] MEDS: inSUlin ASPART (NovoLOG) 1 UNIT/0.01 ML (CHARGE PER UNIT) SC SCH ×4 (05:58→22:05)
[2020-11-17 07:56] VITALS: BP 129/63
[2020-11-17] MEDS: HYDROcodone/APAP 7.5 MG/325 MG (LORTAB, LORCET PLUS) TABLET PO PRN ×2 (08:27→17:52)
[2020-11-17] MEDS: VICTOZA 18 MG/3 ML SQ SCH (08:27)
[2020-11-17] MEDS: ASPIRIN E.C. 81 MG (ECOTRIN) TAB PO SCH (08:27)
[2020-11-17] MEDS: GABAPENTIN 300 MG (NEURONTIN) CAP PO SCH ×3 (08:27→21:25)
[2020-11-17] MEDS: MECLIZINE 25 MG (ANTIVERT) TAB PO SCH ×2 (08:27→21:25)
[2020-11-17] MEDS: CALCIUM CARBONATE 600 MG (CALCARB) TAB PO SCH (08:27)
--- NOTE | 2020-11-17 09:06 | Occupational Ther Daily Note ---
OT Current Status-Daily Note Subjective Pt frustrated at OT arrival. Reports being upset about having cold breakfast. Therapeutic listening provided.Agreeable to participate in therapy. Appearance Pt left sitting in chair, alarm set. Spouse in room. RN notified. ADL-Treatment Pt supine in bed at OT arrival. Visibly upset secondary to having a cold breakfast. Agreeable to participate after ordering new meal. Spouse present for session and agreeable to participate in family training. Hand held assist from spouse to sit EOB. Education provided on log roll technique. Pt sat EOB to dress. Pt declines use of ballaster and continues to require reminders on compensatory strategies to reduce spinal flexion with LB dressing. Min-mod A needed to stand from bed. Unsteadiness noted with static standing, requires assist and extra time to achieve balance. LOB posterior, needing assist to maintain upright while managing clothing over her hips. She ambulated short distance to chair with Min A and walker. continues to have poor safety with walker management. She sat to brush hair. Therapy Code Descriptions/Definitions Functional [place] Measure: 0=Not Assessed/NA 4=Minimal Assistance 1=Total Assistance 5=Supervision or Setup 2=Maximal Assistance 6=Modified [place] 3=Moderate Assistance 7=Complete IndependenceSCALE: Activities may be completed with or without assistive devices. 2-Byknpjkxjf-pgqrhvz completes the activity by him/herself with no assistance from a helper. 5-Set-up or Clean-up Assistance-helper sets up or cleans up; patient completes activity. [place] assists only prior to or following the activity. 4-Supervision or Touching Assistance-helper provides verbal cues and/or touching/steadying and/or contact guard assistance as patient completes activity. Assistance may be provided throughout the activity or intermittently. 3-Partial/Moderate Assistance-helper does LESS THAN HALF the effort. [place] lifts, holds or supports trunk or limbs, but provides less than half the effort. 2-Substantial/Maximal Assistance-helper does MORE THAN HALF the effort. [place] lifts or holds trunk or limbs and provides more than half the effort. 2-Rinrxuwpp-mcgurj does ALL the effort. Patient does none of the effort to complete the activity. Or, the assistance of 2 or more helpers is required for the patient to complete the activity. If activity was not attempted, code reason: 7-Patient Refused. 9-Not Applicable-not attempted and the patient did not perform the activity [facility] the current illness, exacerbation or injury. 10-Not Attempted due to Environmental Limitations-(lack of equipment, weather r estraints, etc.). 88-Not Attempted due to Medical Conditions or Safety Concerns. Upper Body Dressing (QC): 5 Lower Body Dressing (QC): 4 On/Off Footwear: 4 Toileting Hygiene (QC): 4 Toilet Transfer (QC): 3 Other Treatment Medication task completed seated in chair. On first attempt, Pt correctly identified 0 out of 6 medications (0%). Errors included time of consumption, placing pills in only 1 day of the week vs the entire week (weekly pill box), and incorrectly placing PRN pills into daily tabs. Pt often dropping pills on floor and would be unable to olive picker from floor secondary to back pain. Education provided placing towel on table to reduce pills rolling off table. One second attempt, pt correctly identified 5 out of 6 medications (83%) with Mod cues for attention to detail and problem solving required. AT this time, pt would require assist/supervision with management of medications. Education OT Patient Education: Correct positioning, Energy conservation, Modified ADL techniques, Progress toward Goal/Update tx plan, Purpose of tx/functional activities, Reviewed precautions, Rehab process, Safety issues, Transfer techniques, Other Teaching Recipient: Patient, Family, Significant Other Teaching Methods: Demonstration Response to Teaching: Verbalize Understanding, Return Demonstration, Reinforcement Needed OT Short Term Goals Short Term Goals Eatin Oral hygiene: 9 Toileting hygiene: 4 Shower/bathe self: 4 Upper body dressin Lower body dressin Putting on/taking off footwear: 4 OT Loan Examiner Goals Senior Living Goals Eating (QC): 6 Oral Hygiene (QC): 9 Toileting Hygiene (QC): 6 Shower/Bathe Self (QC): 6 Upper Body Dressing (QC): 6 Lower Body Dressing (QC): 6 On/Off Footwear (QC): 6 1=Demonstrate adherence to instructed precautions during ADL tasks. 2=Patient will verbalize/demonstrate understanding of assistive devices/modifications for ADL. 3=Patient will improve strength/tolerance for activity to enable patient to perform ADL's. OT Education/Plan Problem List/Assessment Assessment: Decreased Activ Tolerance, Decreased Safety Aware, Decreased UE Strength, Impaired Bed Mobility, Impaired Cognition, Impaired Coordination, Impaired Funct Balance, Impaired I ADL's, Impaired Self-Care Skills, Restricted Funct UE ROM Discharge Recommendations Plan/Recommendations: Continue POC Therapy Discharge Recommendati: Intermittent Supervision, Homemaker Support Barriers to Progress Increased unsteadiness. Poor safety awareness. Target Placement Home health vs snf Treatment Plan/Plan of Care Treatment,Training & Education: Yes Patient would benefit from OT for education, treatment and training to promote independence in ADL's, mobility, safety and/or upper extremity function for ADL's. Plan of Care: ADL Retraining, Functional Mobility, Group Exercise/Act as Ind, UE Funct Exercise/Act Treatment Duration: Nov 24, 2020 Frequency: At least 5 of 7 days/Wk (IRF) Estimated Hrs Per Day: 1.5 hours per day Agreement: Yes Rehab Potential: Fair Time/GCodes Start Time: 07:55 Stop Time: 09:00 Total Time Billed (hr/min): 65 Billed Treatment Time 1 visit, ADL x2, FA x2 Nenita Reyna OT Nov 17, 2020 09:06
[2020-11-17] MEDS: SENNA W/DOCUSATE (SENOKOT S) TABLET PO SCH ×2 (09:09→21:24)
[2020-11-17] MEDS: polyethylene glycoL POWDER 17 GM (MIRALAX) PACK PO SCH ×2 (09:09→21:30)
--- NOTE | 2020-11-17 10:03 | Physical Therapy Daily Note ---
PT Daily Note-Current Subjective Pt sitting up in bed upon arrival. Pt agrees to PT. Pain Location: Lower Location Body Site: Back Pain Description: Ache, Chronic Comment: Reports but doesn't rate Mental Status Patient Orientation: Person, Place, Situation Transfers SCALE: Activities may be completed with or without assistive devices. 8-Jxafucdyyq-tfvydab completes the activity by him/herself with no assistance from a helper. 5-Set-up or Clean-up Assistance-helper sets up or cleans up; patient completes activity. [place] assists only prior to or following the activity. 4-Supervision or Touching Assistance-helper provides verbal cues and/or touching/steadying and/or contact guard assistance as patient completes activity. Assistance may be provided throughout the activity or intermittently. 3-Partial/Moderate Assistance-helper does LESS THAN HALF the effort. [place] lifts, holds or supports trunk or limbs, but provides less than half the effort. 2-Substantial/Maximal Assistance-helper does MORE THAN HALF the effort. [place] lifts or holds trunk or limbs and provides more than half the effort. 3-Ijuzwezoh-wogxmr does ALL the effort. Patient does none of the effort to complete the activity. Or, the assistance of 2 or more helpers is required for the patient to complete the activity. If activity was not attempted, code reason: 7-Patient Refused. 9-Not Applicable-not attempted and the patient did not perform the activity before the current illness, exacerbation or injury. 10-Not Attempted due to Environmental Limitations-(lack of equipment, weather restraints, etc.). 88-Not Attempted due to Medical Conditions or Safety Concerns. Sit to Stand (QC): 5 Weight Bearing Full Weight Bearing Full Weight Bearing Gait Training Does the Patient Walk?: Yes Distance: 150' x2 Walk 10 feet (QC): 5 Walk 50 ft with 2 Turns(QC): 5 Walk 150 ft (QC): 4 Gait Persons Needed: 1 Gait Assistive Device: FWW VC for safety about staying w/in FWW and WBOS to prevent scissoring. Stair Training Stair Training: Handrails/: 2 handrails #of Steps: 8 1 Step (curb) (QC): 4 4 Steps (QC): 4 Stairs: Pattern: Step to Exercises Seated Therapy Exercises: Ankle pumps, Long arc quads, Hip flexion, Glut set Seated Reps: 15 Treatments TF to standing, declines need for BR. Pt amb. in hallway, taking RB. Pt completes Seated Ex. Pt completes 2 set of 4 steps (1 w/railing and 1 w/o railing, PRECISION MACHINING INSTRUCTOR). Pt works on sidestepping length of Gym since pt has narrow doorway for some bedrooms. Pt amb. in hallway and returns to room to rest Supine in bed at end of tx. All needs met, call light in hand. Assessment Current Status: Fair Progress VC for safety and sequencing evon. with stairs. PT Short Term Goals Short Term Goals Time Frame: Nov 17, 2020 Roll Left & Right: 6 Sit to lyin Lying to sitting on side of be: 5 Sit to stand: 4 Chair/uxq-pn-yqxuy transfer: 4 Walk 10 feet: 4 Walk 50 feet with two turns: 4 Walk 150 feet: 4 PT Sales Coordinator Goals Sales Coordinator Goals PT Skilled Nursing Goals Time Frame: Dec 01, 2020 Roll Left & Right (QC): 6 Sit to Lying (QC): 6 Lying-Sitting on Side/Bed(QC): 6 Sit to Stand (QC): 6 Chair/Cyh-gu-Jfyux Xfer(QC): 5 Toilet Transfer (QC): 5 Car Transfer (QC): 5 Does the Patient Walk: Yes Walk 10 feet (QC): 5 Walk 50ft with 2 Turns (QC): 5 Walk 150 ft (QC): 5 Walking 10ft on Uneven Surface: 5 1 Step (curb) (QC): 4 4 Steps (QC): 4 12 Steps (QC): 88 Picking up an Object (QC): 88 Wheel 50 feet with 2 turns (QC: 9 Wheel 150 feet: 9 PT Plan Problem List Problem List: Activity Tolerance, Safety Treatment/Plan Treatment Plan: Continue Plan of Care Treatment Plan: Bed Mobility, Education, Functional Activity Remy, Functional Strength, Group Therapy, Gait, Safety, Therapeutic Exercise, Transfers Treatment Duration: Dec 01, 2020 Frequency: At least 5 of 7 days/Wk (IRF) Estimated Hrs Per Day: 1.5 hours per day Patient and/or Family Agrees t: Yes Safety Risks/Education Patient Education: Gait Training, Correct Positioning Teaching Recipient: Patient Teaching Methods: Discussion Response to Teaching: Verbalize Understanding Time/GCodes Time In: 900 Time Out: 1000 Total Billed Treatment Time: 60 Total Billed Treatment 1, GT (20m), FA x2 (25m) & EX (15m) BHUMIKA HERNANDEZ MANAGER OF CLINICAL Nov 17, 2020 10:03
--- NOTE | 2020-11-17 11:53 | PM&R Progress Note ---
Subjective HPI/CC On Admission Date Seen by Provider: Nov 17, 2020 Time Seen by Provider: 12:00 Subjective/Events-last exam 11/17/2020: Patient cranky today because he would not let her take her own Tresiba which she had at the bedside She really is not safe to manage her medications Really needs assisted living for the medication management Adjusted insulin 11/16/2020: Patient doing well Victoza is really helping blood sugar Pain med use is declining Loss of balance is an issue 11/15/2020: Pain is improved Bowels moving Sugars are 209/229 Diabetic education provided Voltaren gel and K pad has helped her back pain 11/14/2020: Patient doing really well Bowels moved yesterday Blood sugar is very labile Increasing Levemir to help with sugar spikes Creatinine 1.37 evidence of diabetic nephropathy 11/13/2020: Patient doing pretty well Elevated sugars noted Very impulsive Gave order for regular insulin 20 units for sugars greater than 300 11/12/2020: Patient doing really well Blood sugars much better We will discontinue the Hep-Lock Blood sugars vary Only took 1 pain pill today 11/11/2020: Patient doing pretty well Lower blood sugars have prompted me to decrease insulin Very compliant with carb limited diet here K pad to back has been helpful Bowels are moving Check meds and labs Creatinine 1.37 Review of Systems General: Fatigue, Malaise Objective Exam Vital Signs Vital Signs Date Time Temp Pulse Resp B/P (MAP) Pulse Ox O2 Delivery O2 Flow Rate FiO2 11/18/20 09:00 Room Air 11/18/20 07:44 36.6 82 14 138/66 (90) 94 Capillary Refill : General Appearance: No Apparent Distress, WD/WN, Chronically ill, Obese HEENT: PERRL/EOMI, Normal ENT Inspection, Pharynx Normal Neck: Full Range of Motion, Normal Inspection, Non Tender, Supple, Carotid Bruit Respiratory: Chest Non Tender, Lungs Clear, Normal Breath Sounds, No Accessory Muscle Use, No Respiratory Distress Cardiovascular: Regular Rate, Rhythm, No Edema, No Gallop, No JVD, No Murmur, Normal Peripheral Pulses Gastrointestinal: Normal Bowel Sounds, No Organomegaly, No Pulsatile Mass, Non Tender, Soft Back: Normal Inspection, Decreased Range of Motion, Muscle Spasm, Vertebral Tenderness Extremity: Normal Capillary Refill, Normal Inspection, Normal Range of Motion, Non Tender, No Calf Tenderness, No Pedal Edema Neurologic/Psychiatric: Alert, Oriented x3, bowl sander II-XII Norm as Tested, Abnormal Gait, Depressed Affect, Motor Weakness (Generalized) Skin: Normal Color, Warm/Dry Lymphatic: No Adenopathy Results/Procedures Lab Patient resulted labs reviewed. FIM Transfers Therapy Code Descriptions/Definitions Functional [place] Measure: 0=Not Assessed/NA 4=Minimal Assistance 1=Total Assistance 5=Supervision or Setup 2=Maximal Assistance 6=Modified [place] 3=Moderate Assistance 7=Complete IndependenceSCALE: Activities may be completed with or without assistive devices. 7-Lrxxotanwf-brezeyj completes the activity by him/herself with no assistance from a helper. 5-Set-up or Clean-up Assistance-helper sets up or cleans up; patient completes activity. [place] assists only prior to or following the activity. 4-Supervision or Touching Assistance-helper provides verbal cues and/or touching/steadying and/or contact guard assistance as patient completes activity. Assistance may be provided throughout the activity or intermittently. 3-Partial/Moderate Assistance-helper does LESS THAN HALF the effort. [place] lifts, holds or supports trunk or limbs, but provides less than half the effort. 2-Substantial/Maximal Assistance-helper does MORE THAN HALF the effort. [place] lifts or holds trunk or limbs and provides more than half the effort. 6-Fakhciviu-dgelun does ALL the effort. Patient does none of the effort to complete the activity. Or, the assistance of 2 or more helpers is required for the patient to complete the activity. If activity was not attempted, code reason: 7-Patient Refused. 9-Not Applicable-not attempted and the patient did not perform the activity before the current illness, exacerbation or injury. 10-Not Attempted due to Environmental Limitations-(lack of equipment, weather restraints, etc.). 88-Not Attempted due to Medical Conditions or Safety Concerns. Roll Left to Right (QC): 4 Sit to Lying (QC): 3 Sit to Stand (QC): 5 Chair/Aqo-bv-Oyqfb Xfer(QC): 4 Car Transfer (QC): 3 Gait Training Does the Patient Walk?: Yes Distance: 150' x2 Walk 10 feet (QC): 5 Walk 50 ft with 2 Turns(QC): 5 Walk 150 ft (QC): 4 Walking 10ft/uneven surface-QC: 3 Gait Persons Needed: 1 Gait Assistive Device: FWW Wheelchair Training Does the Pt Use a Wheelchair?: No Wheel 50 ft with 2 turns (QC): 9 Wheel 150 ft (QC): 9 Stair Training Stair Training: Handrails/: 2 handrails #of Steps: 4 1 Step (curb) (QC): 4 4 Steps (QC): 4 12 Steps (QC): 88 Stairs: Pattern: Step to Balance Picking up an Object (QC): 88 ADL-Treatment Eating (QC): 6 Oral Hygiene (QC): 9 Bathing Location: L Arm, R Arm, L Upper Leg, R Upper Leg, L Lower Leg (including foot), R Lower Leg (including foot), Chest, Abdomen, Buttocks, Perineal Area Shower/Bathe Self (QC): 4 (SBA) Upper Body Dressing (QC): 5 Lower Body Dressing (QC): 4 On/Off Footwear (QC): 4 Toileting Hygiene (QC): 4 Toilet Transfer (QC): 3 Assessment/Plan Assessment and Plan Assess & Plan/Chief Complaint Assessment: Debility Multiple falls Current subacute T12 compression fracture sustained in fall Right olecranon injury Diabetes mellitus [id number]-iu-fpobaxk Noncompliant with diabetic diet Plan: Supportive care Fall risk prevention Aggressive therapy regimen 11/11/2020: Decrease insulin to prevent hypoglycemia Pain control Monitor closely 11/12/2020: Supportive care Pain pill working well Monitor diabetes 11/13/2020: Very impulsive Regular insulin for elevated sugar 11/14/2020: Decrease Levemir to close to home dose Monitor closely Intensive rehab 11/15/2020: Monitor sugar Pain control 11/16/2020: Continue focus on balance dysfunction Fall risk 11/17/2020: Insulin management Monitor closely (1) Debility (2) Diabetes mellitus insulin dependent IDDM uncontrolled (3) Weakness Status: Acute (4) T12 compression fracture Status: Acute (5) Fall (on) (from) other stairs and steps, initial encounter Status: Acute (6) Back pain Status: Acute KATELYNN VÁZQUEZ DO Nov 17, 2020 11:53
--- NOTE | 2020-11-17 13:01 | Occupational Ther Daily Note ---
OT Current Status-Daily Note Subjective discussion on needing extra assist post d/c. Pt reports looking into assisted living. Appearance Pt left supine in bed per request. Alarm set. ADL-Treatment Therapy Code Descriptions/Definitions Functional [place] Measure: 0=Not Assessed/NA 4=Minimal Assistance 1=Total Assistance 5=Supervision or Setup 2=Maximal Assistance 6=Modified [place] 3=Moderate Assistance 7=Complete IndependenceSCALE: Activities may be completed with or without assistive devices. 1-Xawmvstide-auezfiy completes the activity by him/herself with no assistance from a helper. 5-Set-up or Clean-up Assistance-helper sets up or cleans up; patient completes activity. [place] assists only prior to or following the activity. 4-Supervision or Touching Assistance-helper provides verbal cues and/or touching/steadying and/or contact guard assistance as patient completes activity. Assistance may be provided throughout the activity or intermittently. 3-Partial/Moderate Assistance-helper does LESS THAN HALF the effort. [place] lifts, holds or supports trunk or limbs, but provides less than half the effort. 2-Substantial/Maximal Assistance-helper does MORE THAN HALF the effort. [place] lifts or holds trunk or limbs and provides more than half the effort. 1-Orbhibway-putckx does ALL the effort. Patient does none of the effort to comp lete the activity. Or, the assistance of 2 or more helpers is required for the patient to complete the activity. If activity was not attempted, code reason: 7-Patient Refused. 9-Not Applicable-not attempted and the patient did not perform the activity before the current illness, exacerbation or injury. 10-Not Attempted due to Environmental Limitations-(lack of equipment, weather restraints, etc.). 88-Not Attempted due to Medical Conditions or Safety Concerns. Other Treatment Pt ambulated to/from ADL tub room with Min A and use of walker. Scissoring noted, cues for widening stance. Following demonstration and instruction from OT, pt completed dry tub transfer x3 with emphasis on sit method. Min cues for sequencing, but no physical assist required. Pt reports "this was much easier than trying to lift my leg over the side." Pt already owns a shower chair. Dis cussion on installation of grab bars. Education OT Patient Education: Correct positioning, Modified ADL techniques, Progress toward Goal/Update tx plan, Purpose of tx/functional activities, Transfer techniques Teaching Recipient: Patient Teaching Methods: Demonstration, Discussion Response to Teaching: Verbalize Understanding, Return Demonstration, Reinforcement Needed OT Short Term Goals Short Term Goals Eatin Oral hygiene: 9 Toileting hygiene: 4 Shower/bathe self: 4 Upper body dressin Lower body dressin Putting on/taking off footwear: 4 OT Fpc Goals Fpc Goals Eating (QC): 6 Oral Hygiene (QC): 9 Toileting Hygiene (QC): 6 Shower/Bathe Self (QC): 6 Upper Body Dressing (QC): 6 Lower Body Dressing (QC): 6 On/Off Footwear (QC): 6 1=Demonstrate adherence to instructed precautions during ADL tasks. 2=Patient will verbalize/demonstrate understanding of assistive devices/modifications for ADL. 3=Patient will improve strength/tolerance for activity to enable patient to perform ADL's. OT Education/Plan Problem List/Assessment Assessment: Decreased Activ Tolerance, Decreased Safety Aware, Decreased UE Strength, Impaired Coordination, Impaired Funct Balance, Impaired I ADL's, Impaired Self-Care Skills, Restricted Funct UE ROM Discharge Recommendations Plan/Recommendations: Continue POC Therapy Discharge Recommendati: Intermittent Supervision, Homemaker Support Equpiment Recommendations-D/C: Rails on Tub/Shower Treatment Plan/Plan of Care Treatment,Training & Education: Yes Patient would benefit from OT for education, treatment and training to promote independence in ADL's, mobility, safety and/or upper extremity function for ADL's. Plan of Care: ADL Retraining, Functional Mobility, Group Exercise/Act as Ind, UE Funct Exercise/Act Treatment Duration: Nov 24, 2020 Frequency: At least 5 of 7 days/Wk (IRF) Estimated Hrs Per Day: 1.5 hours per day Agreement: Yes Rehab Potential: Fair Time/GCodes Start Time: 11:35 Stop Time: 12:00 Total Time Billed (hr/min): 25 Billed Treatment Time 1 visit, Nenita Tobias OT Nov 17, 2020 13:01
--- NOTE | 2020-11-17 13:31 | Physical Therapy Daily Note ---
PT Daily Note-Current Subjective Pt laying Supine in bed upon arrival. Pt reports back is hurting. Pt agrees to PT. Pain Location: Lower Location Body Site: Back Pain Description: Ache Comment: Reports but doesn't rate Mental Status Patient Orientation: Person, Place, Situation Transfers SCALE: Activities may be completed with or without assistive devices. 2-Augqiyargl-nkxmkzu completes the activity by him/herself with no assistance from a helper. 5-Set-up or Clean-up Assistance-helper sets up or cleans up; patient completes activity. [place] assists only prior to or following the activity. 4-Supervision or Touching Assistance-helper provides verbal cues and/or touching/steadying and/or contact guard assistance as patient completes activity. Assistance may be provided throughout the activity or intermittently. 3-Partial/Moderate Assistance-helper does LESS THAN HALF the effort. [place] lifts, holds or supports trunk or limbs, but provides less than half the effort. 2-Substantial/Maximal Assistance-helper does MORE THAN HALF the effort. [place] lifts or holds trunk or limbs and provides more than half the effort. 2-Mwzyrmhqi-tdyjph does ALL the effort. Patient does none of the effort to complete the activity. Or, the assistance of 2 or more helpers is required for the patient to complete the activity. If activity was not attempted, code reason: 7-Patient Refused. 9-Not Applicable-not attempted and the patient did not perform the activity before the current illness, exacerbation or injury. 10-Not Attempted due to Environmental Limitations-(lack of equipment, weather restraints, etc.). 88-Not Attempted due to Medical Conditions or Safety Concerns. Weight Bearing Full Weight Bearing Full Weight Bearing Exercises Supine Ex: Ankle pumps, Quad Set, Glut sets, Heel Slides, Short Arc Quads, Straight leg raise, Hip abd/add Supine Reps: 15 Treatments Pt completes Supine Ex with RB as needed. Pt resting and all needs met, call light in hand. Assessment Current Status: Fair Progress Back pain limiting Ex this afternoon. PT Short Term Goals Short Term Goals Time Frame: Nov 17, 2020 Roll Left & Right: 6 Sit to lyin Lying to sitting on side of be: 5 Sit to stand: 4 Chair/yea-lc-vbjcn transfer: 4 Walk 10 feet: 4 Walk 50 feet with two turns: 4 Walk 150 feet: 4 PT Director Of Hospitality Goals Director Of Hospitality Goals PT Director Of Hospitality Goals Time Frame: Dec 01, 2020 Roll Left & Right (QC): 6 Sit to Lying (QC): 6 Lying-Sitting on Side/Bed(QC): 6 Sit to Stand (QC): 6 Chair/Yxm-lb-Jfzov Xfer(QC): 5 Toilet Transfer (QC): 5 Car Transfer (QC): 5 Does the Patient Walk: Yes Walk 10 feet (QC): 5 Walk 50ft with 2 Turns (QC): 5 Walk 150 ft (QC): 5 Walking 10ft on Uneven Surface: 5 1 Step (curb) (QC): 4 4 Steps (QC): 4 12 Steps (QC): 88 Picking up an Object (QC): 88 Wheel 50 feet with 2 turns (QC: 9 Wheel 150 feet: 9 PT Plan Problem List Problem List: Activity Tolerance Treatment/Plan Treatment Plan: Continue Plan of Care Treatment Plan: Bed Mobility, Education, Functional Activity Remy, Functional Strength, Group Therapy, Gait, Safety, Therapeutic Exercise, Transfers Treatment Duration: Dec 01, 2020 Frequency: At least 5 of 7 days/Wk (IRF) Estimated Hrs Per Day: 1.5 hours per day Patient and/or Family Agrees t: Yes Safety Risks/Education Patient Education: Correct Positioning Teaching Recipient: Patient Teaching Methods: Discussion Response to Teaching: Verbalize Understanding Time/GCodes Time In: 1300 Time Out: 1330 Total Billed Treatment Time: 30 Total Billed Treatment 1, EX x2 (30m) BHUMIKA HERNANDEZ SUPERVISOR PARTIAL DENTURE DEPARTMENT Nov 17, 2020 13:31
[2020-11-17] MEDS: ENOXAPARIN 40 MG/0.4 ML (LOVENOX) SYR SC SCH (14:06)
[2020-11-17] MEDS: CELECOXIB 100 MG (CeleBREX) CAP PO SCH (17:52)
[2020-11-17] MEDS: LOSARTAN 50 MG (COZAAR) TAB PO SCH (17:52)
[2020-11-17] MEDS: SIMvastatin 10 MG (ZOCOR) TAB PO SCH (17:52)
[2020-11-17 20:20] VITALS: BP 144/76
[2020-11-17] MEDS: AMITRIPTYLINE 50 MG (ELAVIL) TAB PO SCH (21:24)
[2020-11-18] MEDS: inSUlin ASPART (NovoLOG) 1 UNIT/0.01 ML (CHARGE PER UNIT) SC SCH ×4 (05:50→21:00)
[2020-11-18 07:44] VITALS: BP 138/66
[2020-11-18] MEDS: GABAPENTIN 300 MG (NEURONTIN) CAP PO SCH ×3 (08:19→21:03)
[2020-11-18] MEDS: ASPIRIN E.C. 81 MG (ECOTRIN) TAB PO SCH (08:19)
[2020-11-18] MEDS: CALCIUM CARBONATE 600 MG (CALCARB) TAB PO SCH (08:19)
[2020-11-18] MEDS: MECLIZINE 25 MG (ANTIVERT) TAB PO SCH ×2 (08:19→21:02)
[2020-11-18] MEDS: SENNA W/DOCUSATE (SENOKOT S) TABLET PO SCH ×2 (08:19→21:05)
[2020-11-18] MEDS: VICTOZA 18 MG/3 ML SQ SCH (08:21)
[2020-11-18] MEDS: polyethylene glycoL POWDER 17 GM (MIRALAX) PACK PO SCH ×2 (08:22→21:04)
--- NOTE | 2020-11-18 10:25 | Physical Therapy Daily Note ---
PT Daily Note-Current Subjective Pt in bed upon arrival w/ spouse in room. Pt states pain in lower back. PM TECHNICIAN discussed pt safety w/ pt and spouse. Pt spouse states pt has 4WW at home, PM TECHNICIAN suggest pt use FWW instead. Will discuss w/ SW. Pain Location: Lower Location Body Site: Back Pain Description: Throbbing Mental Status Patient Orientation: Person, Place, Time, Situation Transfers SCALE: Activities may be completed with or without assistive devices. 9-Bogulilbzq-yrokhzn completes the activity by him/herself with no assistance from a helper. 5-Set-up or Clean-up Assistance-helper sets up or cleans up; patient completes activity. [place] assists only prior to or following the activity. 4-Supervision or Touching Assistance-helper provides verbal cues and/or touching/steadying and/or contact guard assistance as patient completes activity. Assistance may be provided throughout the activity or intermittently. 3-Partial/Moderate Assistance-helper does LESS THAN HALF the effort. [place] lifts, holds or supports trunk or limbs, but provides less than half the effort. 2-Substantial/Maximal Assistance-helper does MORE THAN HALF the effort. [place] lifts or holds trunk or limbs and provides more than half the effort. 7-Cvahzcazj-kgfois does ALL the effort. Patient does none of the effort to complete the activity. Or, the assistance of 2 or more helpers is required for the patient to complete the activity. If activity was not attempted, code reason: 7-Patient Refused. 9-Not Applicable-not attempted and the patient did not perform the activity before the current illness, exacerbation or injury. 10-Not Attempted due to Environmental Limitations-(lack of equipment, weather restraints, etc.). 88-Not Attempted due to Medical Conditions or Safety Concerns. Sit to Lying (QC): 6 Lying to Sitting/Side of Bed(Q: 6 Sit to Stand (QC): 5 Weight Bearing Full Weight Bearing Full Weight Bearing Gait Training Does the Patient Walk?: Yes Distance: 150'x6 Walk 10 feet (QC): 3 Walk 50 ft with 2 Turns(QC): 3 Walk 150 ft (QC): 3 Gait Persons Needed: 1 Gait Assistive Device: FWW Pt has shuffling gait w/ accelerated pace, veers side to side and tends to push FWW in front of self and stand to side. Pt has LOB often w/ amb, increasing w/ turns. Pt requires VC to keep FWW close, stay centered w/ FWW, have slower pace, and stay focused on what is in front of self when amb. Pt tends to look side to side when amb, and not straight ahead. W/ short amb distances pt tends to leave FWW and attempt to amb w/o it. Exercises Seated Therapy Exercises: Ankle pumps, Sit to stand, Long arc quads Seated Reps: 15 Standing: Retro gait, Side steps Standing Reps: 2 Pt amb 6' x2 for side steps and retrogait. Treatments Pt supine to sit EOB and amb to bathroom w/ [place] for steadiness. Pt able to doff/don pants and clean self. Pt amb to sink, leaving FWW by toilet and w/o n otifying PM TECHNICIAN. PM TECHNICIAN hears toilet flushing and checks on pt, but pt already at sink. PM TECHNICIAN gives pt FWW and reminds pt to keep FWW w/ self at all times. Pt amb 150', takes RB, then another 150'.. Pt has LOB w/ turning, PM TECHNICIAN had to correct w/ use of gait belt. Pt instructed to stop amb and gain balance back prior to amb again. Pt then enters therapy gym and has RB. Pt performs seated ex, followed by standing ex in // bars. Pt then performs static standing balance 30 secs x2 w/o UE support. Pt slightly unsteady, using // bars to gain balance back. Once pt takes RB, pt amb on IRU, then back to room. Pt returns to bed, able to sit to supine and scoot in bed Rylie. Pt left in bed w/ spouse in room and all needs met, call light in hand. Assessment Current Status: Fair Progress Pt requires VC when amb, when tired pt tends to require Max VC. Pt becomes easily fatigued and requires frequent RB. PT Short Term Goals Short Term Goals Time Frame: Nov 17, 2020 Roll Left & Right: 6 Sit to lyin Lying to sitting on side of be: 5 Sit to stand: 4 Chair/mud-ma-xqvfp transfer: 4 Walk 10 feet: 4 Walk 50 feet with two turns: 4 Walk 150 feet: 4 PT Side Stitcher Goals Side Stitcher Goals PT Side Stitcher Goals Time Frame: Dec 01, 2020 Roll Left & Right (QC): 6 Sit to Lying (QC): 6 Lying-Sitting on Side/Bed(QC): 6 Sit to Stand (QC): 6 Chair/Eqy-xy-Ufvys Xfer(QC): 5 Toilet Transfer (QC): 5 Car Transfer (QC): 5 Does the Patient Walk: Yes Walk 10 feet (QC): 5 Walk 50ft with 2 Turns (QC): 5 Walk 150 ft (QC): 5 Walking 10ft on Uneven Surface: 5 1 Step (curb) (QC): 4 4 Steps (QC): 4 12 Steps (QC): 88 Picking up an Object (QC): 88 Wheel 50 feet with 2 turns (QC: 9 Wheel 150 feet: 9 PT Plan Problem List Problem List: Activity Tolerance, Safety, Balance Treatment/Plan Treatment Plan: Continue Plan of Care Treatment Plan: Bed Mobility, Education, Functional Activity Remy, Functional Strength, Group Therapy, Gait, Safety, Therapeutic Exercise, Transfers Treatment Duration: Dec 01, 2020 Frequency: At least 5 of 7 days/Wk (IRF) Estimated Hrs Per Day: 1.5 hours per day Patient and/or Family Agrees t: Yes Time/GCodes Time In: 930 Time Out: 1030 Total Billed Treatment Time: 60 Total Billed Treatment 1, EX x2, GT x2 BLANCA CARLSON PM TECHNICIAN Nov 18, 2020 10:25
--- NOTE | 2020-11-18 11:28 | Occupational Ther Daily Note ---
OT Current Status-Daily Note Subjective C/o pain in Left elbow; 11/11. Pt unable to recall time of last pain pill. RN informed. Appearance Pt requested to return to bed, despite encouragement to sit in chair until after lunch. Bed alarm set, all needs within reach. ADL-Treatment Pt already dressed this morning. Declines shower. Therapy Code Descriptions/Definitions Functional [place] Measure: 0=Not Assessed/NA 4=Minimal Assistance 1=Total Assistance 5=Supervision or Setup 2=Maximal Assistance 6=Modified [place] 3=Moderate Assistance 7=Complete IndependenceSCALE: Activities may be completed with or without assistive devices. 0-Igxyjevfkk-cctlsti completes the activity by him/herself with no assistance from a helper. 5-Set-up or Clean-up Assistance-helper sets up or cleans up; patient completes activity. [place] assists only prior to or following the activity. 4-Supervision or Touching Assistance-helper provides verbal cues and/or touching/steadying and/or contact guard assistance as patient completes activity. Assistance may be provided throughout the activity or intermittently. 3-Partial/Moderate Assistance-helper does LESS THAN HALF the effort. [place] lifts, holds or supports trunk or limbs, but provides less than half the effort. 2-Substantial/Maximal Assistance-helper does MORE THAN HALF the effort. [place] lifts or holds trunk or limbs and provides more than half the effort. 7-Jkwmlfcvk-gemaaw does ALL the effort. Patient does none of the effort to complete the activity. Or, the assistance of 2 or more helpers is required for the patient to complete the activity. If activity was not attempted, code reason: 7-Patient Refused. 9-Not Applicable-not attempted and the patient did not perform the activity before the current illness, exacerbation or injury. 10-Not Attempted due to Environmental Limitations-(lack of equipment, weather restraints, etc.). 88-Not Attempted due to Medical Conditions or Safety Concerns. Toileting Hygiene (QC): 4 Toilet Transfer (QC): 4 Other Treatment Pt participated in standing activity (sequence) with emphasis on promoting increased standing tolerance, balance, LE strength, coordination/pinch strength, attention, problem solving, and functional reach (RUE). Pt stood x5, but only able to tolerate standing for ~45-60 seconds each bout. Encouragement to meet goal of 75 seconds, yet unable to complete this date.Standing tolerance and balance continues to worsen each day. Poor safety during session as pt observed x3 (impulsively) attempting to stand and ambulate to bed, bathroom, chair without use of walker. No care of alarms going off. Pt is very unsteady on feet and continues to be a high fall risk. Education provided, reinforcement will be needed. Initially, pt with poor attention due to tv distraction. Once TV was turned off, she exhibited improved attention to game. Only min cues for recall of rules and strategic game play. Pt utilized RUE throughout game secondary to increased pain in L elbow. Game play continued in sitting with sitting rest breaks. Pt participated in RUE exercises with goal to promote increased strength and endurance needed for adls and transfers. 1# hand held weight, 12 x2 in all p lanes. Reduced coordination and control of movement exhibited this date. Cues for control and pace. Intermittent tactile cues for correct form. Reinforcement to continue exercises outside of therapy time. Pt reports agreement, yet reinforcement will be needed. Education OT Patient Education: Correct positioning, Energy conservation, Modified ADL te chniques, Progress toward Goal/Update tx plan, Purpose of tx/functional activities, Reviewed precautions, Rehab process, Safety issues Teaching Recipient: Patient Teaching Methods: Demonstration, Discussion Response to Teaching: Verbalize Understanding, Reinforcement Needed OT Short Term Goals Short Term Goals Eatin Oral hygiene: 9 Toileting hygiene: 4 Shower/bathe self: 4 Upper body dressin Lower body dressin Putting on/taking off footwear: 4 OT Manager Client Support Goals Alf Goals Eating (QC): 6 Oral Hygiene (QC): 9 Toileting Hygiene (QC): 6 Shower/Bathe Self (QC): 6 Upper Body Dressing (QC): 6 Lower Body Dressing (QC): 6 On/Off Footwear (QC): 6 1=Demonstrate adherence to instructed precautions during ADL tasks. 2=Patient will verbalize/demonstrate understanding of assistive devices/modifications for ADL. 3=Patient will improve strength/tolerance for activity to enable patient to perform ADL's. OT Education/Plan Problem List/Assessment Assessment: Decreased Activ Tolerance, Decreased Safety Aware, Decreased UE Strength, Impaired Bed Mobility, Impaired Cognition, Impaired Coordination, Impaired Funct Balance, Impaired I ADL's, Impaired Self-Care Skills, Restricted Funct UE ROM Discharge Recommendations Plan/Recommendations: Continue POC Therapy Discharge Recommendati: Intermittent Supervision, Assisted Living, Homemaker Support Treatment Plan/Plan of Care Treatment,Training & Education: Yes Patient would benefit from OT for education, treatment and training to promote independence in ADL's, mobility, safety and/or upper extremity function for ADL's. Plan of Care: ADL Retraining, Functional Mobility, Group Exercise/Act as Ind, UE Funct Exercise/Act Treatment Duration: Nov 24, 2020 Frequency: At least 5 of 7 days/Wk (IRF) Estimated Hrs Per Day: 1.5 hours per day Agreement: Yes Rehab Potential: Fair Time/GCodes Start Time: 10:30 Stop Time: 12:00 Total Time Billed (hr/min): 90 Billed Treatment Time 1 visit, FA x4, EX x2 Nenita Reyna OT Nov 18, 2020 11:28
--- NOTE | 2020-11-18 12:17 | PM&R Progress Note ---
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 and taking insulin at inappropriate times 11/17/2020: Patient cranky today because he would not let her take her own Tresiba which she had at the bedside She really is not safe to manage her medications Really needs assisted living for the medication management Adjusted insulin 11/16/2020: Patient doing well Victoza is really helping blood sugar Pain med use is declining Loss of balance is an issue 11/15/2020: Pain is improved Bowels moving Sugars are 209/229 Diabetic education provided Voltaren gel and K pad has helped her back pain 11/14/2020: Patient doing really well Bowels moved yesterday Blood sugar is very labile Increasing Levemir to help with sugar spikes Creatinine 1.37 evidence of diabetic nephropathy 11/13/2020: Patient doing pretty well Elevated sugars noted Very impulsive Gave order for regular insulin 20 units for sugars greater than 300 11/12/2020: Patient doing really well Blood sugars much better We will discontinue the Hep-Lock Blood sugars vary Only took 1 pain pill today 11/11/2020: Patient doing pretty well Lower blood sugars have prompted me to decrease insulin Very compliant with carb limited diet here K pad to back has been helpful Bowels are moving Check meds and labs Creatinine 1.37 Review of Systems Musculoskeletal: arm pain, back pain Neurological: Weakness, Incoordination Objective Exam Vital Signs Vital Signs Date Time Temp Pulse Resp B/P (MAP) Pulse Ox O2 Delivery O2 Flow Rate FiO2 11/18/20 21:05 91 Room Air 11/18/20 20:00 37.2 98 20 120/68 (85) Capillary Refill : General Appearance: No Apparent Distress, WD/WN, Chronically ill, Obese HEENT: PERRL/EOMI, Normal ENT Inspection, Pharynx Normal Neck: Full Range of Motion, Normal Inspection, Non Tender, Supple, Carotid Bruit Respiratory: Chest Non Tender, Lungs Clear, Normal Breath Sounds, No Accessory Muscle Use, No Respiratory Distress Cardiovascular: Regular Rate, Rhythm, No Edema, No Gallop, No JVD, No Murmur, Normal Peripheral Pulses Gastrointestinal: Normal Bowel Sounds, No Organomegaly, No Pulsatile Mass, Non Tender, Soft Back: Normal Inspection, Decreased Range of Motion, Muscle Spasm, Vertebral Tenderness Extremity: Normal Capillary Refill, Normal Inspection, Normal Range of Motion, Non Tender, No Calf Tenderness, No Pedal Edema Neurologic/Psychiatric: Alert, Oriented x3, hall tender II-XII Norm as Tested, Abnormal Gait, Depressed Affect, Motor Weakness (Generalized) Skin: Normal Color, Warm/Dry Lymphatic: No Adenopathy Results/Procedures Lab Patient resulted labs reviewed. FIM Transfers Therapy Code Descriptions/Definitions Functional [place] Measure: 0=Not Assessed/NA 4=Minimal Assistance 1=Total Assistance 5=Supervision or Setup 2=Maximal Assistance 6=Modified [place] 3=Moderate Assistance 7=Complete IndependenceSCALE: Activities may be completed with or without assistive devices. 6-Sfaynpabug-tcqjqeg completes the activity by him/herself with no assistance from a helper. 5-Set-up or Clean-up Assistance-helper sets up or cleans up; patient completes activity. [place] assists only prior to or following the activity. 4-Supervision or Touching Assistance-helper provides verbal cues and/or touching/steadying and/or contact guard assistance as patient completes activity. Assistance may be provided throughout the activity or intermittently. 3-Partial/Moderate Assistance-helper does LESS THAN HALF the effort. [place] lifts, holds or supports trunk or limbs, but provides less than half the effort. 2-Substantial/Maximal Assistance-helper does MORE THAN HALF the effort. [place] lifts or holds trunk or limbs and provides more than half the effort. 7-Nuhbdwuna-wjgelj does ALL the effort. Patient does none of the effort to complete the activity. Or, the assistance of 2 or more helpers is required for the patient to complete the activity. If activity was not attempted, code reason: 7-Patient Refused. 9-Not Applicable-not attempted and the patient did not perform the activity before the current illness, exacerbation or injury. 10-Not Attempted due to Environmental Limitations-(lack of equipment, weather restraints, etc.). 88-Not Attempted due to Medical Conditions or Safety Concerns. Roll Left to Right (QC): 4 Sit to Lying (QC): 6 Sit to Stand (QC): 5 Chair/Sxi-aq-Qaodn Xfer(QC): 4 Car Transfer (QC): 3 Gait Training Does the Patient Walk?: Yes Distance: 150'x6 Walk 10 feet (QC): 3 Walk 50 ft with 2 Turns(QC): 3 Walk 150 ft (QC): 3 Walking 10ft/uneven surface-QC: 3 Gait Persons Needed: 1 Gait Assistive Device: FWW Wheelchair Training Does the Pt Use a Wheelchair?: No Wheel 50 ft with 2 turns (QC): 9 Wheel 150 ft (QC): 9 Stair Training Stair Training: Handrails/: 2 handrails #of Steps: 8 1 Step (curb) (QC): 4 4 Steps (QC): 4 12 Steps (QC): 88 Stairs: Pattern: Step to Balance Picking up an Object (QC): 88 ADL-Treatment Eating (QC): 6 Oral Hygiene (QC): 9 Bathing Location: L Arm, R Arm, L Upper Leg, R Upper Leg, L Lower Leg (including foot), R Lower Leg (including foot), Chest, Abdomen, Buttocks, Perineal Area Shower/Bathe Self (QC): 4 (SBA) Upper Body Dressing (QC): 5 Lower Body Dressing (QC): 4 On/Off Footwear (QC): 4 Toileting Hygiene (QC): 4 Toilet Transfer (QC): 4 Assessment/Plan Assessment and Plan Assess & Plan/Chief Complaint Assessment: Debility Multiple falls Current subacute T12 compression fracture sustained in fall Right olecranon injury Diabetes mellitus pof-gt-pjjnwuk Noncompliant with diabetic diet Plan: Supportive care Fall risk prevention Aggressive therapy regimen 11/11/2020: Decrease insulin to prevent hypoglycemia Pain control Monitor closely 11/12/2020: Supportive care Pain pill working well Monitor diabetes 11/13/2020: Very impulsive Regular insulin for elevated sugar 11/14/2020: Decrease Levemir to close to home dose Monitor closely Intensive rehab 11/15/2020: Monitor sugar Pain control 11/16/2020: Continue focus on balance dysfunction Fall risk 11/17/2020: Insulin management Monitor closely 11/18/2020: Decrease insulin to prevent hypoglycemia Continue therapy (1) Debility (2) Diabetes mellitus insulin dependent IDDM uncontrolled (3) Weakness Status: Acute (4) T12 compression fracture Status: Acute (5) Fall (on) (from) other stairs and steps, initial encounter Status: Acute (6) Back pain Status: Acute KATELYNN VÁZQUEZ DO Nov 18, 2020 12:17
--- NOTE | 2020-11-18 13:31 | Physical Therapy Daily Note ---
PT Daily Note-Current Subjective Pt in bed upon arrival and agrees to tx. Pt states pain in lower back is better than earlier. Mental Status Patient Orientation: Person, Place, Time, Situation Transfers SCALE: Activities may be completed with or without assistive devices. 5-Jzcsicocth-whykotk completes the activity by him/herself with no assistance from a helper. 5-Set-up or Clean-up Assistance-helper sets up or cleans up; patient completes activity. [place] assists only prior to or following the activity. 4-Supervision or Touching Assistance-helper provides verbal cues and/or touching/steadying and/or contact guard assistance as patient completes activi ty. Assistance may be provided throughout the activity or intermittently. 3-Partial/Moderate Assistance-helper does LESS THAN HALF the effort. [place] lifts, holds or supports trunk or limbs, but provides less than half the effort. 2-Substantial/Maximal Assistance-helper does MORE THAN HALF the effort. [place] lifts or holds trunk or limbs and provides more than half the effort. 0-Safhodnao-khtuzt does ALL the effort. Patient does none of the effort to complete the activity. Or, the assistance of 2 or more helpers is required for the patient to complete the activity. If activity was not attempted, code reason: 7-Patient Refused. 9-Not Applicable-not attempted and the patient did not perform the activity before the current illness, exacerbation or injury. 10-Not Attempted due to Environmental Limitations-(lack of equipment, weather restraints, etc.). 88-Not Attempted due to Medical Conditions or Safety Concerns. Roll Left & Right (QC): 6 Sit to Lying (QC): 6 Lying to Sitting/Side of Bed(Q: 6 Sit to Stand (QC): 5 Weight Bearing Full Weight Bearing Full Weight Bearing Gait Training Does the Patient Walk?: Yes Distance: 100' x2 Walk 10 feet (QC): 4 Walk 50 ft with 2 Turns(QC): 4 Gait Persons Needed: 1 Gait Assistive Device: FWW Pt had more steady gait in pm. Occasionally had accelerated pace or pushed FWW ahead, but pt self corrected w/o VC from STOCK SHIPPER. Exercises NuStep Minutes: 10 NuStep Workload: 4 Treatments Pt sit to stands CGA, then amb to therapy gym. Pt has RB, then completes NuStep at WL of 4 for 10 mins. Pt sit to stand again and amb back to room. Pt sits EOB, then sit to supine, followed by bed mobility. Pt stays in bed post tx with all needs met, call light in hand. Assessment Current Status: Good Progress Pt had more steady amb and required no VC from STOCK SHIPPER. PT Short Term Goals Short Term Goals Time Frame: Nov 17, 2020 Roll Left & Right: 6 Sit to lyin Lying to sitting on side of be: 5 Sit to stand: 4 Chair/qnu-wk-dptgx transfer: 4 Walk 10 feet: 4 Walk 50 feet with two turns: 4 Walk 150 feet: 4 PT Inside Sales Recruiter Goals Inside Sales Recruiter Goals PT Skilled Nursing Goals Time Frame: Dec 01, 2020 Roll Left & Right (QC): 6 Sit to Lying (QC): 6 Lying-Sitting on Side/Bed(QC): 6 Sit to Stand (QC): 6 Chair/Lro-fo-Eswjt Xfer(QC): 5 Toilet Transfer (QC): 5 Car Transfer (QC): 5 Does the Patient Walk: Yes Walk 10 feet (QC): 5 Walk 50ft with 2 Turns (QC): 5 Walk 150 ft (QC): 5 Walking 10ft on Uneven Surface: 5 1 Step (curb) (QC): 4 4 Steps (QC): 4 12 Steps (QC): 88 Picking up an Object (QC): 88 Wheel 50 feet with 2 turns (QC: 9 Wheel 150 feet: 9 PT Plan Treatment/Plan Treatment Plan: Continue Plan of Care Treatment Plan: Bed Mobility, Education, Functional Activity Remy, Functional Strength, Group Therapy, Gait, Safety, Therapeutic Exercise, Transfers Treatment Duration: Dec 01, 2020 Frequency: At least 5 of 7 days/Wk (IRF) Estimated Hrs Per Day: 1.5 hours per day Patient and/or Family Agrees t: Yes Time/GCodes Time In: 1300 Time Out: 1330 Total Billed Treatment Time: 30 Total Billed Treatment 1, EX, BLANCA BENNETT STOCK SHIPPER Nov 18, 2020 13:31
[2020-11-18] MEDS: ENOXAPARIN 40 MG/0.4 ML (LOVENOX) SYR SC SCH (13:54)
[2020-11-18] MEDS: SIMvastatin 10 MG (ZOCOR) TAB PO SCH (18:11)
[2020-11-18] MEDS: LOSARTAN 50 MG (COZAAR) TAB PO SCH (18:11)
[2020-11-18] MEDS: CELECOXIB 100 MG (CeleBREX) CAP PO SCH (18:11)
[2020-11-18 20:00] VITALS: BP 120/68
[2020-11-18] MEDS: AMITRIPTYLINE 50 MG (ELAVIL) TAB PO SCH (21:02)
[2020-11-18] MEDS: HYDROcodone/APAP 7.5 MG/325 MG (LORTAB, LORCET PLUS) TABLET PO PRN (21:03)
[2020-11-19] MEDS: CYCLOBENZAPRINE 10 MG (FLEXERIL) TAB PO PRN (00:05)
[2020-11-19] MEDS: inSUlin ASPART (NovoLOG) 1 UNIT/0.01 ML (CHARGE PER UNIT) SC SCH ×4 (06:00→21:16)
[2020-11-19 08:00] VITALS: BP 114/74
[2020-11-19] MEDS: CALCIUM CARBONATE 600 MG (CALCARB) TAB PO SCH (08:01)
[2020-11-19] MEDS: SENNA W/DOCUSATE (SENOKOT S) TABLET PO SCH ×2 (08:01→21:16)
[2020-11-19] MEDS: GABAPENTIN 300 MG (NEURONTIN) CAP PO SCH ×3 (08:01→21:13)
[2020-11-19] MEDS: MECLIZINE 25 MG (ANTIVERT) TAB PO SCH ×2 (08:01→21:13)
[2020-11-19] MEDS: HYDROcodone/APAP 7.5 MG/325 MG (LORTAB, LORCET PLUS) TABLET PO PRN ×3 (08:02→21:15)
[2020-11-19] MEDS: ASPIRIN E.C. 81 MG (ECOTRIN) TAB PO SCH (08:03)
[2020-11-19] MEDS: VICTOZA 18 MG/3 ML SQ SCH (08:03)
--- NOTE | 2020-11-19 10:08 | PM&R Progress Note ---
Subjective HPI/CC On Admission Date Seen by Provider: Nov 19, 2020 Time Seen by Provider: 12:00 Subjective/Events-last exam 11/19/2020: Patient in a good mood today Sleeping currently Blood sugars much improved Check meds and labs 11/18/2020: Patient doing really well today Feels like she is more steady with her balance Walking with walker Had a low sugar today so adjusted insulin Brittle diabetes due to noncompliance and taking insulin at inappropriate times 11/17/2020: Patient cranky today because he would not let her take her own Tresiba which she had at the bedside She really is not safe to manage her medications Really needs assisted living for the medication management Adjusted insulin 11/16/2020: Patient doing well Victoza is really helping blood sugar Pain med use is declining Loss of balance is an issue 11/15/2020: Pain is improved Bowels moving Sugars are 209/229 Diabetic education provided Voltaren gel and K pad has helped her back pain 11/14/2020: Patient doing really well Bowels moved yesterday Blood sugar is very labile Increasing Levemir to help with sugar spikes Creatinine 1.37 evidence of diabetic nephropathy 11/13/2020: Patient doing pretty well Elevated sugars noted Very impulsive Gave order for regular insulin 20 units for sugars greater than 300 11/12/2020: Patient doing really well Blood sugars much better We will discontinue the Hep-Lock Blood sugars vary Only took 1 pain pill today 11/11/2020: Patient doing pretty well Lower blood sugars have prompted me to decrease insulin Very compliant with carb limited diet here K pad to back has been helpful Bowels are moving Check meds and labs Creatinine 1.37 Review of Systems General: Fatigue, Malaise Musculoskeletal: back pain Neurological: Weakness Objective Exam Vital Signs Vital Signs Date Time Temp Pulse Resp B/P (MAP) Pulse Ox O2 Delivery O2 Flow Rate FiO2 11/19/20 09:00 Room Air 11/19/20 08:00 36.9 84 20 114/74 (87) 94 Capillary Refill : General Appearance: No Apparent Distress, WD/WN, Chronically ill, Obese HEENT: PERRL/EOMI, Normal ENT Inspection, Pharynx Normal Neck: Full Range of Motion, Normal Inspection, Non Tender, Supple, Carotid Bruit Respiratory: Chest Non Tender, Lungs Clear, Normal Breath Sounds, No Accessory Muscle Use, No Respiratory Distress Cardiovascular: Regular Rate, Rhythm, No Edema, No Gallop, No JVD, No Murmur, Normal Peripheral Pulses Gastrointestinal: Normal Bowel Sounds, No Organomegaly, No Pulsatile Mass, Non Tender, Soft Back: Normal Inspection, Decreased Range of Motion, Muscle Spasm, Vertebral Te nderness Extremity: Normal Capillary Refill, Normal Inspection, Normal Range of Motion, Non Tender, No Calf Tenderness, No Pedal Edema Neurologic/Psychiatric: Alert, Oriented x3, environmental issues instructor II-XII Norm as Tested, Abnormal Gait, Depressed Affect, Motor Weakness (Generalized) Skin: Normal Color, Warm/Dry Lymphatic: No Adenopathy Results/Procedures Lab Patient resulted labs reviewed. FIM Transfers Therapy Code Descriptions/Definitions Functional [place] Measure: 0=Not Assessed/NA 4=Minimal Assistance 1=Total Assistance 5=Supervision or Setup 2=Maximal Assistance 6=Modified [place] 3=Moderate Assistance 7=Complete IndependenceSCALE: Activities may be completed with or without assistive devices. 1-Ccukpszjzn-mbvdfzz completes the activity by him/herself with no assistance from a helper. 5-Set-up or Clean-up Assistance-helper sets up or cleans up; patient completes activity. [place] assists only prior to or following the activity. 4-Supervision or Touching Assistance-helper provides verbal cues and/or touching/steadying and/or contact guard assistance as patient completes activity. Assistance may be provided throughout the activity or intermittently. 3-Partial/Moderate Assistance-helper does LESS THAN HALF the effort. [place] lifts, holds or supports trunk or limbs, but provides less than half the effort. 2-Substantial/Maximal Assistance-helper does MORE THAN HALF the effort. [place] lifts or holds trunk or limbs and provides more than half the effort. 2-Xsafjvnbz-zjpmwo does ALL the effort. Patient does none of the effort to complete the activity. Or, the assistance of 2 or more helpers is required for the patient to complete the activity. If activity was not attempted, code reason: 7-Patient Refused. 9-Not Applicable-not attempted and the patient did not perform the activity before the current illness, exacerbation or injury. 10-Not Attempted due to Environmental Limitations-(lack of equipment, weather restraints, etc.). 88-Not Attempted due to Medical Conditions or Safety Concerns. Roll Left to Right (QC): 6 Sit to Lying (QC): 6 Sit to Stand (QC): 5 Chair/Nwx-zd-Fpplj Xfer(QC): 4 Car Transfer (QC): 3 Gait Training Does the Patient Walk?: Yes Distance: 100' x2 Walk 10 feet (QC): 4 Walk 50 ft with 2 Turns(QC): 4 Walk 150 ft (QC): 3 Walking 10ft/uneven surface-QC: 3 Gait Persons Needed: 1 Gait Assistive Device: FWW Wheelchair Training Does the Pt Use a Wheelchair?: No Wheel 50 ft with 2 turns (QC): 9 Wheel 150 ft (QC): 9 Stair Training Stair Training: Handrails/: 2 handrails #of Steps: 8 1 Step (curb) (QC): 4 4 Steps (QC): 4 12 Steps (QC): 88 Stairs: Pattern: Step to Balance Picking up an Object (QC): 88 ADL-Treatment Eating (QC): 6 Oral Hygiene (QC): 9 Bathing Location: L Arm, R Arm, L Upper Leg, R Upper Leg, L Lower Leg (including foot), R Lower Leg (including foot), Chest, Abdomen, Buttocks, Perineal Area Shower/Bathe Self (QC): 4 (SBA) Upper Body Dressing (QC): 5 Lower Body Dressing (QC): 4 On/Off Footwear (QC): 4 Toileting Hygiene (QC): 4 Toilet Transfer (QC): 4 Assessment/Plan Assessment and Plan Assess & Plan/Chief Complaint Assessment: Debility Multiple falls Current subacute T12 compression fracture sustained in fall Right olecranon injury Diabetes mellitus hdg-zn-hzxzhfo Noncompliant with diabetic diet Plan: Supportive care Fall risk prevention Aggressive therapy regimen 11/11/2020: Decrease insulin to prevent hypoglycemia Pain control Monitor closely 11/12/2020: Supportive care Pain pill working well Monitor diabetes 11/13/2020: Very impulsive Regular insulin for elevated sugar 11/14/2020: Decrease Levemir to close to home dose Monitor closely Intensive rehab 11/15/2020: Monitor sugar Pain control 11/16/2020: Continue focus on balance dysfunction Fall risk 11/17/2020: Insulin management Monitor closely 11/18/2020: Decrease insulin to prevent hypoglycemia Continue therapy 11/19/2020: Continue current insulin regimen Prevent hypoglycemia (1) Debility (2) Diabetes mellitus insulin dependent IDDM uncontrolled (3) Weakness Status: Acute (4) T12 compression fracture Status: Acute (5) Fall (on) (from) other stairs and steps, initial encounter Status: Acute (6) Back pain Status: Acute KATELYNN VÁZQUEZ DO Nov 19, 2020 10:08
--- NOTE | 2020-11-19 10:27 | Physical Therapy Daily Note ---
PT Daily Note-Current Subjective Pt in bed w/ spouse in room upon arrival and agrees to tx. Pt states pain in lower back but doesn't rate out of 10, pt says she had pain medication about an hour ago. Pain Location: Lower Location Body Site: Back Mental Status Patient Orientation: Person, Place, Time, Situation Transfers SCALE: Activities may be completed with or without assistive devices. 1-Zocfbqdzqt-xaoirej completes the activity by him/herself with no assistance from a helper. 5-Set-up or Clean-up Assistance-helper sets up or cleans up; patient completes activity. [place] assists only prior to or following the activity. 4-Supervision or Touching Assistance-helper provides verbal cues and/or touching/steadying and/or contact guard assistance as patient completes activity. Assistance may be provided throughout the activity or intermittently. 3-Partial/Moderate Assistance-helper does LESS THAN HALF the effort. [place] lifts, holds or supports trunk or limbs, but provides less than half the effort. 2-Substantial/Maximal Assistance-helper does MORE THAN HALF the effort. [place] lifts or holds trunk or limbs and provides more than half the effort. 2-Tntwuiink-jcgehv does ALL the effort. Patient does none of the effort to complete the activity. Or, the assistance of 2 or more helpers is required for the patient to complete the activity. If activity was not attempted, code reason: 7-Patient Refused. 9-Not Applicable-not attempted and the patient did not perform the activity before the current illness, exacerbation or injury. 10-Not Attempted due to Environmental Limitations-(lack of equipment, weather restraints, etc.). 88-Not Attempted due to Medical Conditions or Safety Concerns. Sit to Lying (QC): 5 Lying to Sitting/Side of Bed(Q: 5 Sit to Stand (QC): 5 Weight Bearing Full Weight Bearing Full Weight Bearing Gait Training Does the Patient Walk?: Yes Distance: 400' Walk 10 feet (QC): 4 Walk 50 ft with 2 Turns(QC): 4 Walk 150 ft (QC): 4 Gait Persons Needed: 1 Gait Assistive Device: FWW Pt has slow, steady gait today. Pt stays in FWW and focused on obstacles in front of her. Pt required no VC for gait today. Treatments Pt supine to sit SBA and sit to stand. Pt amb 400' on IRU w/ one seated RB. Pt stops at ice machine prior to returning to room, grabs cup and fills it up SBA. Pt returns to bed in room and left with all needs met, call light in hand. Assessment Current Status: Good Progress Pt progressing well, required no VC for todays tx PT Short Term Goals Short Term Goals Time Frame: Nov 17, 2020 Roll Left & Right: 6 Sit to lyin Lying to sitting on side of be: 5 Sit to stand: 4 Chair/qbt-gv-ktttg transfer: 4 Walk 10 feet: 4 Walk 50 feet with two turns: 4 Walk 150 feet: 4 PT Kiln Cleaner Goals Long-Term Goals PT Kiln Cleaner Goals Time Frame: Dec 01, 2020 Roll Left & Right (QC): 6 Sit to Lying (QC): 6 Lying-Sitting on Side/Bed(QC): 6 Sit to Stand (QC): 6 Chair/Knc-xa-Yxsov Xfer(QC): 5 Toilet Transfer (QC): 5 Car Transfer (QC): 5 Does the Patient Walk: Yes Walk 10 feet (QC): 5 Walk 50ft with 2 Turns (QC): 5 Walk 150 ft (QC): 5 Walking 10ft on Uneven Surface: 5 1 Step (curb) (QC): 4 4 Steps (QC): 4 12 Steps (QC): 88 Picking up an Object (QC): 88 Wheel 50 feet with 2 turns (QC: 9 Wheel 150 feet: 9 PT Plan Treatment/Plan Treatment Plan: Continue Plan of Care Treatment Plan: Bed Mobility, Education, Functional Activity Remy, Functional Strength, Group Therapy, Gait, Safety, Therapeutic Exercise, Transfers Treatment Duration: Dec 01, 2020 Frequency: At least 5 of 7 days/Wk (IRF) Estimated Hrs Per Day: 1.5 hours per day Patient and/or Family Agrees t: Yes Time/GCodes Time In: 1010 Time Out: 1022 Total Billed Treatment Time: 12 Total Billed Treatment 1, GT BLANCA CARLSON RATE QUOTING OPERATOR Nov 19, 2020 10:27
[2020-11-19] MEDS: polyethylene glycoL POWDER 17 GM (MIRALAX) PACK PO SCH ×2 (11:30→21:16)
[2020-11-19] MEDS: ENOXAPARIN 40 MG/0.4 ML (LOVENOX) SYR SC SCH (13:39)
[2020-11-19] MEDS: CELECOXIB 100 MG (CeleBREX) CAP PO SCH (18:05)
[2020-11-19] MEDS: SIMvastatin 10 MG (ZOCOR) TAB PO SCH (18:06)
[2020-11-19] MEDS: LOSARTAN 50 MG (COZAAR) TAB PO SCH (18:06)
[2020-11-19 20:00] VITALS: BP 142/65
[2020-11-19] MEDS: AMITRIPTYLINE 50 MG (ELAVIL) TAB PO SCH (21:13)
[2020-11-20] MEDS: inSUlin ASPART (NovoLOG) 1 UNIT/0.01 ML (CHARGE PER UNIT) SC SCH ×4 (06:00→20:58)
[2020-11-20 08:33] VITALS: BP 105/74
[2020-11-20] MEDS: polyethylene glycoL POWDER 17 GM (MIRALAX) PACK PO SCH ×2 (08:35→20:57)
[2020-11-20] MEDS: CALCIUM CARBONATE 600 MG (CALCARB) TAB PO SCH (08:35)
[2020-11-20] MEDS: ASPIRIN E.C. 81 MG (ECOTRIN) TAB PO SCH (08:35)
[2020-11-20] MEDS: GABAPENTIN 300 MG (NEURONTIN) CAP PO SCH ×3 (08:35→20:55)
[2020-11-20] MEDS: MECLIZINE 25 MG (ANTIVERT) TAB PO SCH ×2 (08:35→20:55)
[2020-11-20] MEDS: SENNA W/DOCUSATE (SENOKOT S) TABLET PO SCH ×2 (08:36→20:58)
[2020-11-20] MEDS: HYDROcodone/APAP 7.5 MG/325 MG (LORTAB, LORCET PLUS) TABLET PO PRN ×3 (08:38→20:56)
[2020-11-20] MEDS: VICTOZA 18 MG/3 ML SQ SCH (08:41)
--- NOTE | 2020-11-20 12:08 | PM&R Progress Note ---
Subjective HPI/CC On Admission Date Seen by Provider: Nov 20, 2020 Time Seen by Provider: 12:15 Subjective/Events-last exam 11/20/2020: Patient a bit cranky and sent her breakfast back 2 or 3 times Check meds and labs Discharge plan for tomorrow 11/19/2020: Patient in a good mood today Sleeping currently Blood sugars much improved Check meds and labs 11/18/2020: Patient doing really well today Feels like she is more steady with her balance Walking with walker Had a low sugar today so adjusted insulin Brittle diabetes due to noncompliance and taking insulin at inappropriate times 11/17/2020: Patient cranky today because he would not let her take her own Tresiba which she had at the bedside She really is not safe to manage her medications Really needs assisted living for the medication management Adjusted insulin 11/16/2020: Patient doing well Victoza is really helping blood sugar Pain med use is declining Loss of balance is an issue 11/15/2020: Pain is improved Bowels moving Sugars are 209/229 Diabetic education provided Voltaren gel and K pad has helped her back pain 11/14/2020: Patient doing really well Bowels moved yesterday Blood sugar is very labile Increasing Levemir to help with sugar spikes Creatinine 1.37 evidence of diabetic nephropathy 11/13/2020: Patient doing pretty well Elevated sugars noted Very impulsive Gave order for regular insulin 20 units for sugars greater than 300 11/12/2020: Patient doing really well Blood sugars much better We will discontinue the Hep-Lock Blood sugars vary Only took 1 pain pill today 11/11/2020: Patient doing pretty well Lower blood sugars have prompted me to decrease insulin Very compliant with carb limited diet here K pad to back has been helpful Bowels are moving Check meds and labs Creatinine 1.37 Review of Systems General: Fatigue Objective Exam Vital Signs Vital Signs Date Time Temp Pulse Resp B/P (MAP) Pulse Ox O2 Delivery O2 Flow Rate FiO2 11/20/20 09:00 Room Air 11/20/20 08:33 37.1 88 20 105/74 (84) 96 Capillary Refill : General Appearance: No Apparent Distress, WD/WN, Chronically ill, Obese HEENT: PERRL/EOMI, Normal ENT Inspection, Pharynx Normal Neck: Full Range of Motion, Normal Inspection, Non Tender, Supple, Carotid Bruit Respiratory: Chest Non Tender, Lungs Clear, Normal Breath Sounds, No Accessory Muscle Use, No Respiratory Distress Cardiovascular: Regular Rate, Rhythm, No Edema, No Gallop, No JVD, No Murmur, Normal Peripheral Pulses Gastrointestinal: Normal Bowel Sounds, No Organomegaly, No Pulsatile Mass, Non Tender, Soft Back: Normal Inspection, Decreased Range of Motion, Muscle Spasm, Vertebral Tenderness Extremity: Normal Capillary Refill, Normal Inspection, Normal Range of Motion, Non Tender, No Calf Tenderness, No Pedal Edema Neurologic/Psychiatric: Alert, Oriented x3, engagement quality consultant II-XII Norm as Tested, Abnormal Gait, Depressed Affect, Motor Weakness (Generalized) Skin: Normal Color, Warm/Dry Lymphatic: No Adenopathy Results/Procedures Lab Patient resulted labs reviewed. FIM Transfers Therapy Code Descriptions/Definitions Functional [place] Measure: 0=Not Assessed/NA 4=Minimal Assistance 1=Total Assistance 5=Supervision or Setup 2=Maximal Assistance 6=Modified [place] 3=Moderate Assistance 7=Complete IndependenceSCALE: Activities may be completed with or without assistive devices. 5-Kwepaiyoym-oupzibe completes the activity by him/herself with no assistance from a helper. 5-Set-up or Clean-up Assistance-helper sets up or cleans up; patient completes activity. [place] assists only prior to or following the activity. 4-Supervision or Touching Assistance-helper provides verbal cues and/or touching/steadying and/or contact guard assistance as patient completes activity. Assistance may be provided throughout the activity or intermittently. 3-Partial/Moderate Assistance-helper does LESS THAN HALF the effort. [place] lifts, holds or supports trunk or limbs, but provides less than half the effort. 2-Substantial/Maximal Assistance-helper does MORE THAN HALF the effort. [place] lifts or holds trunk or limbs and provides more than half the effort. 4-Joghherls-cgmndi does ALL the effort. Patient does none of the effort to complete the activity. Or, the assistance of 2 or more helpers is required for the patient to complete the activity. If activity was not attempted, code reason: 7-Patient Refused. 9-Not Applicable-not attempted and the patient did not perform the activity before the current illness, exacerbation or injury. 10-Not Attempted due to Environmental Limitations-(lack of equipment, weather restraints, etc.). 88-Not Attempted due to Medical Conditions or Safety Concerns. Roll Left to Right (QC): 6 Sit to Lying (QC): 5 Sit to Stand (QC): 5 Chair/Bjr-vt-Nszfj Xfer(QC): 4 Car Transfer (QC): 3 Gait Training Does the Patient Walk?: Yes Distance: 400' Walk 10 feet (QC): 4 Walk 50 ft with 2 Turns(QC): 4 Walk 150 ft (QC): 4 Walking 10ft/uneven surface-QC: 3 Gait Persons Needed: 1 Gait Assistive Device: FWW Wheelchair Training Does the Pt Use a Wheelchair?: No Wheel 50 ft with 2 turns (QC): 9 Wheel 150 ft (QC): 9 Stair Training Stair Training: Handrails/: 2 handrails #of Steps: 8 1 Step (curb) (QC): 4 4 Steps (QC): 4 12 Steps (QC): 88 Stairs: Pattern: Step to Balance Picking up an Object (QC): 88 ADL-Treatment Eating (QC): 6 Oral Hygiene (QC): 9 Bathing Location: L Arm, R Arm, L Upper Leg, R Upper Leg, L Lower Leg (including foot), R Lower Leg (including foot), Chest, Abdomen, Buttocks, Perineal Area Shower/Bathe Self (QC): 4 (SBA) Upper Body Dressing (QC): 5 Lower Body Dressing (QC): 4 On/Off Footwear (QC): 4 Toileting Hygiene (QC): 4 Toilet Transfer (QC): 4 Assessment/Plan Assessment and Plan Assess & Plan/Chief Complaint Assessment: Debility Multiple falls Current subacute T12 compression fracture sustained in fall Right olecranon injury Diabetes mellitus [id number] Noncompliant with diabetic diet Plan: Supportive care Fall risk prevention Aggressive therapy regimen 11/11/2020: Decrease insulin to prevent hypoglycemia Pain control Monitor closely 11/12/2020: Supportive care Pain pill working well Monitor diabetes 11/13/2020: Very impulsive Regular insulin for elevated sugar 11/14/2020: Decrease Levemir to close to home dose Monitor closely Intensive rehab 11/15/2020: Monitor sugar Pain control 11/16/2020: Continue focus on balance dysfunction Fall risk 11/17/2020: Insulin management Monitor closely 11/18/2020: Decrease insulin to prevent hypoglycemia Continue therapy 11/19/2020: Continue current insulin regimen Prevent hypoglycemia 11/20/2020: Discharge tomorrow (1) Debility (2) Diabetes mellitus insulin dependent IDDM uncontrolled (3) Weakness Status: Acute (4) T12 compression fracture Status: Acute (5) Fall (on) (from) other stairs and steps, initial encounter Status: Acute (6) Back pain Status: Acute KATELYNN VÁZQUEZ DO Nov 20, 2020 12:08
[2020-11-20] MEDS: ENOXAPARIN 40 MG/0.4 ML (LOVENOX) SYR SC SCH (13:46)
[2020-11-20] MEDS: SIMvastatin 10 MG (ZOCOR) TAB PO SCH (17:04)
[2020-11-20] MEDS: CELECOXIB 100 MG (CeleBREX) CAP PO SCH (17:04)
[2020-11-20] MEDS: LOSARTAN 50 MG (COZAAR) TAB PO SCH (17:04)
[2020-11-20] MEDS ORDERED: DICL100G13 TOP (17:57)
[2020-11-20] MEDS ORDERED: INSU100I14 SQ (17:57)
[2020-11-20] MEDS ORDERED: INSU100V5 SQ ×2 (17:57)
--- NOTE | 2020-11-20 18:00 | D/C HH Face to Face Order ---
D/C Face to Face Orders Reconcile Patient Problems Problems Reviewed?: Yes Instructions for Patient Via [facility], Patient Instructions/FollowUp: [facility] PCP 1 week Physician to follow Patient: [facility] Discharge Diet for Home: ADA Diet Patient Problems: Falls Diabetes Patient Data-Allergies,Ht & Wt Patient Allergies: Coded Allergies: lisinopril (Unverified Adverse Reaction, Intermediate, Cough, 11/10/20) Listed on medical record from PCP's office. Uncoded Allergies: Morphine Sulfate (Adverse Reaction, Intermediate, Confusion, 11/10/20) Listed on medical record from PCP's office. Height (Feet): 5 Height (Inches): 5.00 Weight (Pounds): 187 Weight (Ounces): 0.6 Home Health Need/Face to Face Date of Face to Face: Nov 20, 2020 Clinical Findings: Instability, Muscle weakness I have seen Pt [id number]: Yes Discharged To: Home Diagnosis/Conditions: Falls Diabetes Patient is Homebound due to: CognItive deficits, Khang fall risk due to instabilty, Muscle weakness Homebound Status Due to the above stated illness, injury or surgical procedure (medical condition or diagnosis) and associated clinical findings, the patient is h omebound because of his/her inability to leave home except with aid of a supportive device and/or person AND leaving the home requires a considerable and taxing effort or is medically contraindicated. Pt req the following assistanc: Walker Home Health Nursing Orders Home Health Services Order: Nursing Services, Light Oil Operator-Evaluate & Treat, Physical Therapy-Evaluate & Treat, Other (Bath aide) Certify Stmt I certify that this patient is under my care and that I, a nurse practitioner or a physician; a recreational assistant working with me, had a face to face encounter that - meets the physician face to face encounter requirements with this patient as dated. KATELYNN VÁZQUEZ DO Nov 20, 2020 18:00
[2020-11-20 20:00] VITALS: BP 130/75
[2020-11-20] MEDS: AMITRIPTYLINE 50 MG (ELAVIL) TAB PO SCH (20:55)
--- NOTE | 2020-11-21 05:00 | Discharge Summary ---
Diagnosis/Chief Complaint Date of Admission Nov 10, 2020 at 11:15 Date of Discharge Discharge Date: Nov 21, 2020 Discharge Summary Discharge Physical Examination Allergies: Coded Allergies: lisinopril (Unverified Adverse Reaction, Intermediate, Cough, 11/10/20) Listed on medical record from PCP's office. Uncoded Allergies: Morphine Sulfate (Adverse Reaction, Intermediate, Confusion, 11/10/20) Listed on medical record from PCP's office. Vitals & I&Os Vital Signs Date Time Temp Pulse Resp B/P (MAP) Pulse Ox O2 Delivery O2 Flow Rate FiO2 11/21/20 20:15 91 Room Air 11/21/20 20:15 37.1 86 20 135/64 (87) Hospital Course Labs (last 24 hrs) Laboratory Tests 11/10/20 13:11: Glucometer 308H 11/10/20 16:02: Glucometer 189H 11/10/20 20:09: Glucometer 82 11/11/20 05:15: White Blood Count 9.5, Red Blood Count 4.66, Hemoglobin 12.4, Hematocrit 40, Mean Corpuscular Volume 85, Mean Corpuscular Hemoglobin 27, Mean Corpuscular Hemoglobin Concent 31L, Red Cell Distribution Width 14.2, Platelet Count 245, Mean Platelet Volume 9.8, Immature Granulocyte % (Auto) 0, Neutrophils (%) (Auto) 68, Lymphocytes (%) (Auto) 22, Monocytes (%) (Auto) 6, Eosinophils (%) (Auto) 3, Basophils (%) (Auto) 1, Neutrophils # (Auto) 6.5, Lymphocytes # (Auto) 2.1, Monocytes # (Auto) 0.6, Eosinophils # (Auto) 0.3, Basophils # (Auto) 0.1, Immature Granulocyte # (Auto) 0.0, Sodium Level 135, Potassium Level 4.4, Chloride Level 99, Carbon Dioxide Level 26, Anion Gap 10, Blood Urea Nitrogen 24H, Creatinine 1.35H, Estimat Glomerular Filtration Rate 39, BUN/Creatinine Ratio 18, Glucose Level 79, Calcium Level 10.7H, Corrected Calcium 10.9H, Total Bilirubin 0.3, Aspartate Amino Transf (AST/SGOT) 19, Alanine Aminotransferase (ALT/SGPT) 12, Alkaline Phosphatase 100, Total Protein 7.8, Albumin 3.8 11/11/20 12:04: Glucometer 327H 11/11/20 15:27: Glucometer 172H 11/11/20 20:03: Glucometer 141H 11/12/20 06:41: Glucometer 222H 11/12/20 11:01: Glucometer 303H 11/12/20 16:13: Glucometer 245H 11/12/20 21:16: Glucometer 278H 11/13/20 05:28: Glucometer 174H 11/13/20 11:21: Glucometer 469*H 11/13/20 16:21: Glucometer 306H 11/13/20 20:22: Glucometer 205H 11/14/20 05:31: Glucometer 198H 11/14/20 05:40: White Blood Count 11.1H, Red Blood Count 4.45, Hemoglobin 11.7, Hematocrit 37, Mean Corpuscular Volume 82, Mean Corpuscular Hemoglobin 26, Mean Corpuscular Hemoglobin Concent 32, Red Cell Distribution Width 13.9, Platelet Count 225, Mean Platelet Volume 10.1, Immature Granulocyte % (Auto) 1, Neutrophils (%) (Auto) 71, Lymphocytes (%) (Auto) 18, Monocytes (%) (Auto) 5, Eosinophils (%) (Auto) 4, Basophils (%) (Auto) 1, Neutrophils # (Auto) 7.9H, Lymphocytes # (Auto) 2.0, Monocytes # (Auto) 0.6, Eosinophils # (Auto) 0.5H, Basophils # (Auto) 0.1, Immature Granulocyte # (Auto) 0.1, Sodium Level 133L, Potassium Level 4.2, Chloride Level 99, Carbon Dioxide Level 24, Anion Gap 10, Blood Urea Nitrogen 32H, Creatinine 1.37H, Estimat Glomerular Filtration Rate 39, BUN/Creatinine Ratio 23, Glucose Level 216H, Calcium Level 10.1, Corrected Calcium 10.3H, Total Bilirubin 0.3, Aspartate Amino Transf (AST/SGOT) 17, Alanine Aminotransferase (ALT/SGPT) 17, Alkaline Phosphatase 102, Total Protein 7.4, Albumin 3.7 11/14/20 10:43: Glucometer 439*H 11/14/20 16:55: Glucometer 239H 11/14/20 20:51: Glucometer 290H 11/15/20 05:31: Glucometer 229H 11/15/20 11:59: Glucometer 230H 11/15/20 16:39: Glucometer 117H 11/15/20 20:51: Glucometer 114H 11/16/20 05:09: Glucometer 183H 11/16/20 10:51: Glucometer 162H 11/16/20 16:07: Glucometer 169H 11/16/20 21:27: Glucometer 206H 11/17/20 05:54: Glucometer 108 11/17/20 11:35: Glucometer 197H 11/17/20 16:25: Glucometer 171H 11/17/20 21:23: Glucometer 249H 11/18/20 05:30: Glucometer 53*L 11/18/20 05:59: Glucometer 49*L 11/18/20 06:30: Glucometer 96 11/18/20 11:21: Glucometer 207H 11/18/20 16:49: Glucometer 138H 11/18/20 21:00: Glucometer 159H 11/19/20 06:11: Glucometer 134H 11/19/20 11:26: Glucometer 172H 11/19/20 16:38: Glucometer 311H 11/19/20 16:41: Glucometer 302H 11/19/20 21:11: Glucometer 132H 11/20/20 06:03: Glucometer 120H 11/20/20 11:21: Glucometer 269H 11/20/20 16:27: Glucometer 183H 11/20/20 20:53: Glucometer 144H 11/21/20 05:58: Glucometer 149H 11/21/20 06:28: White Blood Count 9.2, Red Blood Count 4.61, Hemoglobin 12.4, Hematocrit 39, Mean Corpuscular Volume 84, Mean Corpuscular Hemoglobin 27, Mean Corpuscular Hemoglobin Concent 32, Red Cell Distribution Width 14.1, Platelet Count 293, Mean Platelet Volume 10.4, Immature Granulocyte % (Auto) 0, Neutrophils (%) (Auto) 68, Lymphocytes (%) (Auto) 19, Monocytes (%) (Auto) 6, Eosinophils (%) (Auto) 5, Basophils (%) (Auto) 1, Neutrophils # (Auto) 6.3, Lymphocytes # (Auto) 1.8, Monocytes # (Auto) 0.6, Eosinophils # (Auto) 0.5H, Basophils # (Auto) 0.1, Immature Granulocyte # (Auto) 0.0, Sodium Level 134L, Potassium Level 4.2, Chloride Level 99, Carbon Dioxide Level 24, Anion Gap 11, Blood Urea Nitrogen 28H, Creatinine 1.53H, Estimat Glomerular Filtration Rate 34, BUN/Creatinine Ratio 18, Glucose Level 151H, Calcium Level 9.9, Corrected Calcium 10.1, Total Bilirubin 0.4, Aspartate Amino Transf (AST/SGOT) 20, Alanine Aminotransferase (ALT/SGPT) 18, Alkaline Phosphatase 93, Total Protein 7.5, Albumin 3.8 11/21/20 11:18: Glucometer 186H 11/21/20 16:18: Glucometer 127H 11/21/20 21:03: Glucometer 182H Pending Labs Laboratory Tests 11/10/20 13:11: Glucometer 308 11/10/20 16:02: Glucometer 189 11/10/20 20:09: Glucometer 82 11/11/20 05:15: White Blood Count 9.5, Red Blood Count 4.66, Hemoglobin 12.4, Hematocrit 40, Mean Corpuscular Volume 85, Mean Corpuscular Hemoglobin 27, Mean Corpuscular Hemoglobin Concent 31, Red Cell Distribution Width 14.2, Platelet Count 245, Mean Platelet Volume 9.8, Immature Granulocyte % (Auto) 0, Neutrophils (%) (Auto) 68, Lymphocytes (%) (Auto) 22, Monocytes (%) (Auto) 6, Eosinophils (%) (Auto) 3, Basophils (%) (Auto) 1, Neutrophils # (Auto) 6.5, Lymphocytes # (Auto) 2.1, Monocytes # (Auto) 0.6, Eosinophils # (Auto) 0.3, Basophils # (Auto) 0.1, Immature Granulocyte # (Auto) 0.0, Sodium Level 135, Potassium Level 4.4, Chloride Level 99, Carbon Dioxide Level 26, Anion Gap 10, Blood Urea Nitrogen 24, Creatinine 1.35, Estimat Glomerular Filtration Rate 39, BUN/Creatinine Ratio 18, Glucose Level 79, Calcium Level 10.7, Corrected Calcium 10.9, Total Bi lirubin 0.3, Aspartate Amino Transf (AST/SGOT) 19, Alanine Aminotransferase (ALT/SGPT) 12, Alkaline Phosphatase 100, Total Protein 7.8, Albumin 3.8 11/11/20 12:04: Glucometer 327 11/11/20 15:27: Glucometer 172 11/11/20 20:03: Glucometer 141 11/12/20 06:41: Glucometer 222 11/12/20 11:01: Glucometer 303 11/12/20 16:13: Glucometer 245 11/12/20 21:16: Glucometer 278 11/13/20 05:28: Glucometer 174 11/13/20 11:21: Glucometer 469 11/13/20 16:21: Glucometer 306 11/13/20 20:22: Glucometer 205 11/14/20 05:31: Glucometer 198 11/14/20 05:40: White Blood Count 11.1, Red Blood Count 4.45, Hemoglobin 11.7, Hematocrit 37, Mean Corpuscular Volume 82, Mean Corpuscular Hemoglobin 26, Mean Corpuscular Hemoglobin Concent 32, Red Cell Distribution Width 13.9, Platelet Count 225, Mean Platelet Volume 10.1, Immature Granulocyte % (Auto) 1, Neutrophils (%) (Auto) 71, Lymphocytes (%) (Auto) 18, Monocytes (%) (Auto) 5, Eosinophils (%) (Auto) 4, Basophils (%) (Auto) 1, Neutrophils # (Auto) 7.9, Lymphocytes # (Auto) 2.0, Monocytes # (Auto) 0.6, Eosinophils # (Auto) 0.5, Basophils # (Auto) 0.1, Immature Granulocyte # (Auto) 0.1, Sodium Level 133, Potassium Level 4.2, Chloride Level 99, Carbon Dioxide Level 24, Anion Gap 10, Blood Urea Nitrogen 32, Creatinine 1.37, Estimat Glomerular Filtration Rate 39, BUN/Creatinine Ratio 23, Glucose Level 216, Calcium Level 10.1, Corrected Calcium 10.3, Total Bilirubin 0.3, Aspartate Amino Transf (AST/SGOT) 17, Alanine Aminotransferase (ALT/SGPT) 17, Alkaline Phosphatase 102, Total Protein 7.4, Albumin 3.7 11/14/20 10:43: Glucometer 439 11/14/20 16:55: Glucometer 239 11/14/20 20:51: Glucometer 290 11/15/20 05:31: Glucometer 229 11/15/20 11:59: Glucometer 230 11/15/20 16:39: Glucometer 117 11/15/20 20:51: Glucometer 114 11/16/20 05:09: Glucometer 183 11/16/20 10:51: Glucometer 162 11/16/20 16:07: Glucometer 169 11/16/20 21:27: Glucometer 206 11/17/20 05:54: Glucometer 108 11/17/20 11:35: Glucometer 197 11/17/20 16:25: Glucometer 171 11/17/20 21:23: Glucometer 249 11/18/20 05:30: Glucometer 53 11/18/20 05:59: Glucometer 49 11/18/20 06:30: Glucometer 96 11/18/20 11:21: Glucometer 207 11/18/20 16:49: Glucometer 138 11/18/20 21:00: Glucometer 159 11/19/20 06:11: Glucometer 134 11/19/20 11:26: Glucometer 172 11/19/20 16:38: Glucometer 311 11/19/20 16:41: Glucometer 302 11/19/20 21:11: Glucometer 132 11/20/20 06:03: Glucometer 120 11/20/20 11:21: Glucometer 269 11/20/20 16:27: Glucometer 183 11/20/20 20:53: Glucometer 144 11/21/20 05:58: Glucometer 149 11/21/20 06:28: White Blood Count 9.2, Red Blood Count 4.61, Hemoglobin 12.4, Hematocrit 39, Mean Corpuscular Volume 84, Mean Corpuscular Hemoglobin 27, Mean Corpuscular Hemoglobin Concent 32, Red Cell Distribution Width 14.1, Platelet Count 293, Mean Platelet Volume 10.4, Immature Granulocyte % (Auto) 0, Neutrophils (%) (Auto) 68, Lymphocytes (%) (Auto) 19, Monocytes (%) (Auto) 6, Eosinophils (%) (Auto) 5, Basophils (%) (Auto) 1, Neutrophils # (Auto) 6.3, Lymphocytes # (Auto) 1.8, Monocytes # (Auto) 0.6, Eosinophils # (Auto) 0.5, Basophils # (Auto) 0.1, Immature Granulocyte # (Auto) 0.0, Sodium Level 134, Potassium Level 4.2, Chloride Level 99, Carbon Dioxide Level 24, Anion Gap 11, Blood Urea Nitrogen 28, Creatinine 1.53, Estimat Glomerular Filtration Rate 34, BUN/Creatinine Ratio 18, Glucose Level 151, Calcium Level 9.9, Corrected Calcium 10.1, Total Bilirubin 0.4, Aspartate Amino Transf (AST/SGOT) 20, Alanine Aminotransferase (ALT/SGPT) 18, Alkaline Phosphatase 93, Total Protein 7.5, Albumin 3.8 11/21/20 11:18: Glucometer 186 11/21/20 16:18: Glucometer 127 11/21/20 21:03: Glucometer 182 Discharge Home Medications: Active Scripts Active Levemir (Insulin Determir) 1,000 Units/10 Ml Soln 30 Unit SQ 1800 30 Days Levemir (Insulin Determir) 1,000 Units/10 Ml Soln 10 Unit SQ DAILY@0700 30 Days Novolog Flexpen (Insulin Aspart) 300 Units/3 Ml Solution 8 Units SQ AC 30 Days Diclofenac Sodium 100 Gm Gel..gram. 0 Gm TOP QID PRN Reported Famotidine 20 Mg Tablet 20 Mg PO BID PRN Calcium (Calcium Carbonate) 600 Mg Tablet 600 Mg PO DAILY Losartan Potassium 50 Mg Tablet 50 Mg PO 1800 Meclizine HCl 25 Mg Tablet 25 Mg PO BID Neurontin (Gabapentin) 300 Mg Capsule 300 Mg PO TID Cyclobenzaprine HCl 10 Mg Tablet 10 Mg PO TID PRN Amitriptyline HCl 100 Mg Tablet 100 Mg PO HS Hydrocodone-Acetamin 7.5-325 (Hydrocodone/Acetaminophen) 1 Each Tablet 1 Each PO Q4H PRN Celebrex (Celecoxib) 200 Mg Capsule 200 Mg PO 1800 Aspirin EC (Aspirin) 81 Mg Tablet.dr 81 Mg PO DAILY Victoza 3-Jn (Liraglutide) 0.6 Mg/0.1 Ml Pen.injctr 1.8 Mg SC DAILY Lovastatin 20 Mg Tablet 20 Mg PO 1800 Instructions to patient/family Please see electronic discharge instructions given to patient. Diagnosis/Problems Diagnosis/Problems (1) Debility (2) Diabetes mellitus insulin dependent IDDM uncontrolled (3) Weakness Status: Acute (4) T12 compression fracture Status: Acute (5) Fall (on) (from) other stairs and steps, initial encounter Status: Acute (6) Back pain Status: Acute KATELYNN VÁZQUEZ DO Nov 21, 2020 05:00
[2020-11-21] MEDS: inSUlin ASPART (NovoLOG) 1 UNIT/0.01 ML (CHARGE PER UNIT) SC SCH ×4 (06:00→21:24)
[2020-11-21 06:42] LABS: BASOPHILS # (AUTO) 0.1 10^3/uL (0.0-0.1); BASOPHILS % (AUTO) 1 % (0-10); EOSINOPHILS # (AUTO) 0.5 10^3/uL (0.0-0.3); EOSINOPHILS % (AUTO) 5 % (0-10); HEMATOCRIT 39 % (35-52); HEMOGLOBIN 12.4 g/dL (11.5-16.0); LYMPHOCYTES # (AUTO) 1.8 10^3/uL (1.0-4.0); LYMPHOCYTES % (AUTO) 19 % (12-44); MEAN CORPUSCULAR HEMOGLOBIN 27 pg (25-34); MEAN CORPUSCULAR HGB CONC 32 g/dL (32-36); MEAN CORPUSCULAR VOLUME 84 fL (80-99); MEAN PLATELET VOLUME 10.4 fL (9.0-12.2); MONOCYTES # (AUTO) 0.6 10^3/uL (0.0-1.0); MONOCYTES % (AUTO) 6 % (0-12); NEUTROPHILS # (AUTO) 6.3 10^3/uL (1.8-7.8); NEUTROPHILS % (AUTO) 68 % (42-75); PLATELET COUNT 293 10^3/uL (130-400); WHITE BLOOD COUNT 9.2 10^3/uL (4.3-11.0)
[2020-11-21 06:52] LABS: ALBUMIN 3.8 GM/DL (3.2-4.5); POTASSIUM 4.2 MMOL/L (3.6-5.0)
[2020-11-21 06:53] LABS: CALCIUM 9.9 MG/DL (8.5-10.1)
[2020-11-21 06:55] LABS: TOTAL PROTEIN 7.5 GM/DL (6.4-8.2)
[2020-11-21 06:56] LABS: BILIRUBIN,TOTAL 0.4 MG/DL (0.1-1.0)
[2020-11-21 06:58] LABS: CREATININE SERUM 1.53 MG/DL (0.60-1.30)
[2020-11-21 07:35] VITALS: BP 121/75
[2020-11-21] MEDS: SENNA W/DOCUSATE (SENOKOT S) TABLET PO SCH ×2 (08:54→21:20)
[2020-11-21] MEDS: CALCIUM CARBONATE 600 MG (CALCARB) TAB PO SCH (08:54)
[2020-11-21] MEDS: ASPIRIN E.C. 81 MG (ECOTRIN) TAB PO SCH (08:54)
[2020-11-21] MEDS: GABAPENTIN 300 MG (NEURONTIN) CAP PO SCH ×3 (08:54→21:26)
[2020-11-21] MEDS: polyethylene glycoL POWDER 17 GM (MIRALAX) PACK PO SCH ×2 (08:54→21:20)
[2020-11-21] MEDS: HYDROcodone/APAP 7.5 MG/325 MG (LORTAB, LORCET PLUS) TABLET PO PRN ×2 (08:54→12:32)
[2020-11-21] MEDS: MECLIZINE 25 MG (ANTIVERT) TAB PO SCH ×2 (08:54→21:25)
[2020-11-21] MEDS: VICTOZA 18 MG/3 ML SQ SCH (08:55)
--- NOTE | 2020-11-21 09:16 | Physical Therapy Daily Note ---
PT Daily Note-Current Subjective Patient in recliner pre tx, agrees to PT, has mild back pain. Patient is leaving today, need to check QC's Appearance Patient in recliner post tx with nurse call, phone, tray, all needs met. Mental Status Patient Orientation: Person, Place, Situation Transfers SCALE: Activities may be completed with or without assistive devices. 3-Bdlaxrjjgr-kuorinb completes the activity by him/herself with no assistance from a helper. 5-Set-up or Clean-up Assistance-helper sets up or cleans up; patient completes activity. [place] assists only prior to or following the activity. 4-Supervision or Touching Assistance-helper provides verbal cues and/or touching/steadying and/or contact guard assistance as patient completes activity. Assistance may be provided throughout the activity or intermittently. 3-Partial/Moderate Assistance-helper does LESS THAN HALF the effort. [place] lifts, holds or supports trunk or limbs, but provides less than half the effort. 2-Substantial/Maximal Assistance-helper does MORE THAN HALF the effort. [place] lifts or holds trunk or limbs and provides more than half the effort. 5-Cxajhennn-krokyi does ALL the effort. Patient does none of the effort to complete the activity. Or, the assistance of 2 or more helpers is required for the patient to complete the activity. If activity was not attempted, code reason: 7-Patient Refused. 9-Not Applicable-not attempted and the patient did not perform the activity before the current illness, exacerbation or injury. 10-Not Attempted due to Environmental Limitations-(lack of equipment, weather restraints, etc.). 88-Not Attempted due to Medical Conditions or Safety Concerns. Roll Left & Right (QC): 6 Sit to Lying (QC): 6 Lying to Sitting/Side of Bed(Q: 6 Sit to Stand (QC): 5 Chair/Qea-pv-Lheif Xfer(QC): 4 Toilet Transfer (QC): 4 Car Transfer (QC): 4 Patient performs bed mobility and supine <-> sit with independence, sit <-> stand setup, transfers and car transfer CGA. Patient needs frequent cues for safety and positioning. Weight Bearing Full Weight Bearing Full Weight Bearing Gait Training Distance: 400' Walk 10 feet (QC): 4 Walk 50 ft with 2 Turns(QC): 4 Walk 150 ft (QC): 4 Walking 10ft/uneven surface-QC: 4 Gait Persons Needed: 1 Gait Assistive Device: FWW Patient can ambulate 400' with a rolling walker with CGA (including 50' with at least 2 turns of 90 degrees and 10' over an uneven surface). Patient has a wandering gait, often runs into objects without cues to avoid them. Wheelchair Training Wheel 50 ft with 2 turns (QC): 9 Wheel 150 ft (QC): 9 Stair Training Stair Training: Handrails/: 2 handrails #of Steps: 8 1 Step (curb) (QC): 4 4 Steps (QC): 4 12 Steps (QC): 88 Stairs: Pattern: Step to Patient can go up and down 8 steps using 2 handrails with CGA, cues for safety. Balance Picking up an Object (QC): 4 Treatments bed mobility and transfers, ambulation, stair training, gait training Assessment Current Status: Poor Progress Patient has poor safety awareness, needs somebody with her during ambulation and transfers. PT Short Term Goals Short Term Goals Time Frame: Nov 17, 2020 Roll Left & Right: 6 Sit to lyin Lying to sitting on side of be: 5 Sit to stand: 4 Chair/tth-qy-ivhvc transfer: 4 Walk 10 feet: 4 Walk 50 feet with two turns: 4 Walk 150 feet: 4 PT Custodial Goals Communications Department Chair Goals PT Communications Department Chair Goals Time Frame: Dec 01, 2020 Roll Left & Right (QC): 6 Sit to Lying (QC): 6 Lying-Sitting on Side/Bed(QC): 6 Sit to Stand (QC): 6 Chair/Nfx-kb-Nwoah Xfer(QC): 5 Toilet Transfer (QC): 5 Car Transfer (QC): 5 Does the Patient Walk: Yes Walk 10 feet (QC): 5 Walk 50ft with 2 Turns (QC): 5 Walk 150 ft (QC): 5 Walking 10ft on Uneven Surface: 5 1 Step (curb) (QC): 4 4 Steps (QC): 4 12 Steps (QC): 88 Picking up an Object (QC): 88 Wheel 50 feet with 2 turns (QC: 9 Wheel 150 feet: 9 PT Plan Problem List Problem List: Activity Tolerance, Functional Strength, Safety, Balance, Gait, Transfer, Bed Mobility, ROM Treatment/Plan Treatment Plan: Continue Plan of Care Treatment Plan: Bed Mobility, Education, Functional Activity Remy, Functional Strength, Group Therapy, Gait, Safety, Therapeutic Exercise, Transfers Treatment Duration: Dec 01, 2020 Frequency: At least 5 of 7 days/Wk (IRF) Estimated Hrs Per Day: 1.5 hours per day Patient and/or Family Agrees t: Yes Safety Risks/Education Patient Education: Gait Training, Transfer Techniques, Steps, Correct Positioning, Safety Issues Teaching Recipient: Patient Teaching Methods: Demonstration, Discussion Response to Teaching: Reinforcement Needed Time/GCodes Time In: 899 Time Out: 914 Total Billed Treatment Time: 15 Total Billed Treatment 1 visit FA Armond' JENA LAKHANI PT Nov 21, 2020 09:16
--- NOTE | 2020-11-21 10:33 | Occupational Ther Daily Note ---
OT Current Status-Daily Note Subjective Pt verbalizes poor sleep for reasoning that she is more unsteady on feet this date. Appearance Pt left sitting in chair, alarm set. all needs within reach. Mental Status/Objective Patient Orientation: Person, Place ADL-Treatment Therapy Code Descriptions/Definitions Functional [place] Measure: 0=Not Assessed/NA 4=Minimal Assistance 1=Total Assistance 5=Supervision or Setup 2=Maximal Assistance 6=Modified [place] 3=Moderate Assistance 7=Complete IndependenceSCALE: Activities may be completed with or without assistive devices. 6-Jnvveybbbd-vjlwyiu completes the activity by him/herself with no assistance from a helper. 5-Set-up or Clean-up Assistance-helper sets up or cleans up; patient completes activity. [place] assists only prior to or following the activity. 4-Supervision or Touching Assistance-helper provides verbal cues and/or touching/steadying and/or contact guard assistance as patient completes activity. Assistance may be provided throughout the activity or intermittently. 3-Partial/Moderate Assistance-helper does LESS THAN HALF the effort. [place] lifts, holds or supports trunk or limbs, but provides less than half the effort. 2-Substantial/Maximal Assistance-helper does MORE THAN HALF the effort. [place] lifts or holds trunk or limbs and provides more than half the effort. 7-Aipmzhjyr-sjsjxf does ALL the effort. Patient does none of the effort to complete the activity. Or, the assistance of 2 or more helpers is required for the patient to complete the activity. If activity was not attempted, code reason: 7-Patient Refused. 9-Not Applicable-not attempted and the patient did not perform the activity before the current illness, exacerbation or injury. 10-Not Attempted due to Environmental Limitations-(lack of equipment, weather restraints, etc.). 88-Not Attempted due to Medical Conditions or Safety Concerns. Oral Hygiene (QC): 9 Bathing Location: L Arm, R Arm, L Upper Leg, R Upper Leg, L Lower Leg (including foot), R Lower Leg (including foot), Chest, Abdomen, Buttocks, Perineal Area Shower/Bathe Self (QC): 4 (CGA) Upper Body Dressing (QC): 5 Lower Body Dressing (QC): 3 (Min a for balance) On/Off Footwear: 5 Toileting Hygiene (QC): 4 Toilet Transfer (QC): 3 (CGA) Pt sitting in chair at OT arrival. Impulsive with all transfers. Re-education on pacing and moving slowly with transfers. Reminder on correct use of walker as pt has tendency to push walker off to side, ambulate to the side of walker or forget walker all together. She ambulated to/from bathroom. Min a for balance with 2 LOB needing min-mod a to keep upright. Pt verbalizes that she is just tired from poor sleep. Education on safety especially with object avoidance. Poor carry over with instruction throughout session. Shower performed; majority completed in sitting. Cues needed to initiate washing ~50% of body parts. Pt very speedy with task and requires education on energy conservation and safety throughout. CGA/Min a needed for balance as she stood to wash [place] area/buttocks. very unsteady on feet. She was able to thread feet into LB clothing without assist, but demonstrates pain with step. Poor compliance on using compensatory strategies or AE despite reporting pain when bending. Anticipate pt will not use equipment or strategies post discharge. CGA for safety as she managed clothing over her hips. Pt is a high fall risk with poor safety awareness. Not safe to return home without 100% supervision. Education OT Patient Education: Correct positioning, Energy conservation, Modified ADL techniques, Progress toward Goal/Update tx plan, Purpose of tx/functional activities, Reviewed precautions, Rehab process, Safety issues, Transfer techniques, Use of adapted equipment Teaching Recipient: Patient Teaching Methods: Demonstration, Discussion Response to Teaching: Reinforcement Needed OT Short Term Goals Short Term Goals Eatin Oral hygiene: 9 Toileting hygiene: 4 Shower/bathe self: 4 Upper body dressin Lower body dressin Putting on/taking off footwear: 4 OT Correction Goals Correction Goals Eating (QC): 6 (met) Oral Hygiene (QC): 9 Toileting Hygiene (QC): 6 (no met) Shower/Bathe Self (QC): 6 (not met) Upper Body Dressing (QC): 6 (not mt) Lower Body Dressing (QC): 6 (not met) On/Off Footwear (QC): 6 (not met) 1=Demonstrate adherence to instructed precautions during ADL tasks. 2=Patient will verbalize/demonstrate understanding of assistive devices/modifications for ADL. 3=Patient will improve strength/tolerance for activity to enable patient to perform ADL's. OT Education/Plan Problem List/Assessment Assessment: Decreased Activ Tolerance, Decreased Safety Aware, Decreased UE Strength, Impaired Cognition, Impaired Coordination, Impaired Funct Balance, Impaired I ADL's, Impaired Self-Care Skills, Restricted Funct UE ROM Discharge Recommendations Plan/Recommendations: Continue POC Therapy Discharge Recommendati: 24 Hour Supervision, Assisted Living, Homemaker Support Equpiment Recommendations-D/C: Rails on Tub/Shower, Bath Chair, Spanish Translator Comment pt is a high fall risk. OT recommending 100% supervision at this time. Barriers to Progress poor safety awareness, balance, impulsivity Treatment Plan/Plan of Care Patient would benefit from OT for education, treatment and training to promote independence in ADL's, mobility, safety and/or upper extremity function for ADL's. Plan of Care: ADL Retraining, Functional Mobility, Group Exercise/Act as Ind, UE Funct Exercise/Act Treatment Duration: Nov 24, 2020 Frequency: At least 5 of 7 days/Wk (IRF) Estimated Hrs Per Day: 1.5 hours per day Agreement: Yes Rehab Potential: Fair Time/GCodes Start Time: 10:00 Stop Time: 09:25 Total Time Billed (hr/min): 25 Billed Treatment Time 1 visit, ADL x2 Nenita Reyna OT Nov 21, 2020 10:33
[2020-11-21] MEDS: ENOXAPARIN 40 MG/0.4 ML (LOVENOX) SYR SC SCH (13:37)
--- NOTE | 2020-11-21 13:41 | Occ Therapy Progress Note ---
Therapy Progress Note Pt supposed to discharge today though unable to discharge due to of . Attempted to have pt participate in therapy, pt declined stating that she is just trying process this event. Will attempt tomorrow. 1 visit-decline [phone] TRUPTI COLLIER Nov 21, 2020 13:41
--- NOTE | 2020-11-21 15:21 | Physical Therapy Progress Note ---
Therapy Progress Note Patient was supposed to discharge home today but her . Attempted to do physical therapy with her but she understandably declined. Will try back in the morning. JENA LAKHANI PT Nov 21, 2020 15:21
[2020-11-21] MEDS: LOSARTAN 50 MG (COZAAR) TAB PO SCH (18:19)
[2020-11-21] MEDS: SIMvastatin 10 MG (ZOCOR) TAB PO SCH (18:19)
[2020-11-21] MEDS: CELECOXIB 100 MG (CeleBREX) CAP PO SCH (18:19)
[2020-11-21 20:15] VITALS: BP 135/64
[2020-11-21] MEDS ORDERED: ALPRAZolam 0.5 MG (XANAX) TAB PO SCH (21:00)
--- NOTE | 2020-11-21 21:11 | PM&R Progress Note ---
Subjective HPI/CC On Admission Date Seen by Provider: Nov 21, 2020 Time Seen by Provider: 09:00 Subjective/Events-last exam 11/21/2020: Delay of discharge due to found at home He was of ill health 11/20/2020: Patient a bit cranky and sent her breakfast back 2 or 3 times Check meds and labs Discharge plan for tomorrow 11/19/2020: Patient in a good mood today Sleeping currently Blood sugars much improved Check meds and labs 11/18/2020: Patient doing really well today Feels like she is more steady with her balance Walking with walker Had a low sugar today so adjusted insulin Brittle diabetes due to noncompliance and taking insulin at inappropriate times 11/17/2020: Patient cranky today because he would not let her take her own Tresiba which she had at the bedside She really is not safe to manage her medications Really needs assisted living for the medication management Adjusted insulin 11/16/2020: Patient doing well Victoza is really helping blood sugar Pain med use is declining Loss of balance is an issue 11/15/2020: Pain is improved Bowels moving Sugars are 209/229 Diabetic education provided Voltaren gel and K pad has helped her back pain 11/14/2020: Patient doing really well Bowels moved yesterday Blood sugar is very labile Increasing Levemir to help with sugar spikes Creatinine 1.37 evidence of diabetic nephropathy 11/13/2020: Patient doing pretty well Elevated sugars noted Very impulsive Gave order for regular insulin 20 units for sugars greater than 300 11/12/2020: Patient doing really well Blood sugars much better We will discontinue the Hep-Lock Blood sugars vary Only took 1 pain pill today 11/11/2020: Patient doing pretty well Lower blood sugars have prompted me to decrease insulin Very compliant with carb limited diet here K pad to back has been helpful Bowels are moving Check meds and labs Creatinine 1.37 Review of Systems General: Fatigue Objective Exam Vital Signs Vital Signs Date Time Temp Pulse Resp B/P (MAP) Pulse Ox O2 Delivery O2 Flow Rate FiO2 11/21/20 20:15 91 Room Air 11/21/20 20:15 37.1 86 20 135/64 (87) Capillary Refill : General Appearance: No Apparent Distress, WD/WN, Chronically ill, Obese HEENT: PERRL/EOMI, Normal ENT Inspection, Pharynx Normal Neck: Full Range of Motion, Normal Inspection, Non Tender, Supple, Carotid Bruit Respiratory: Chest Non Tender, Lungs Clear, Normal Breath Sounds, No Accessory Muscle Use, No Respiratory Distress Cardiovascular: Regular Rate, Rhythm, No Edema, No Gallop, No JVD, No Murmur, Normal Peripheral Pulses Gastrointestinal: Normal Bowel Sounds, No Organomegaly, No Pulsatile Mass, Non Tender, Soft Back: Normal Inspection, Decreased Range of Motion, Muscle Spasm, Vertebral Tenderness Extremity: Normal Capillary Refill, Normal Inspection, Normal Range of Motion, Non Tender, No Calf Tenderness, No Pedal Edema Neurologic/Psychiatric: Alert, Oriented x3, police investigator II-XII Norm as Tested, Abnormal Gait, Depressed Affect, Motor Weakness (Generalized) Skin: Normal Color, Warm/Dry Lymphatic: No Adenopathy Results/Procedures Lab Laboratory Tests 11/21/20 06:28 Patient resulted labs reviewed. FIM Transfers Therapy Code Descriptions/Definitions Functional [place] Measure: 0=Not Assessed/NA 4=Minimal Assistance 1=Total Assistance 5=Supervision or Setup 2=Maximal Assistance 6=Modified [place] 3=Moderate Assistance 7=Complete IndependenceSCALE: Activities may be completed with or without assistive devices. 5-Xfpkanagwy-alkiczb completes the activity by him/herself with no assistance from a helper. 5-Set-up or Clean-up Assistance-helper sets up or cleans up; patient completes activity. [place] assists only prior to or following the activity. 4-Supervision or Touching Assistance-helper provides verbal cues and/or touching/steadying and/or contact guard assistance as patient completes activity. Assistance may be provided throughout the activity or intermittently. 3-Partial/Moderate Assistance-helper does LESS THAN HALF the effort. [place] lifts, holds or supports trunk or limbs, but provides less than half the effort. 2-Substantial/Maximal Assistance-helper does MORE THAN HALF the effort. [place] lifts or holds trunk or limbs and provides more than half the effort. 8-Bivnzbnbj-dirndu does ALL the effort. Patient does none of the effort to complete the activity. Or, the assistance of 2 or more helpers is required for the patient to complete the activity. If activity was not attempted, code reason: 7-Patient Refused. 9-Not Applicable-not attempted and the patient did not perform the activity before the current illness, exacerbation or injury. 10-Not Attempted due to Environmental Limitations-(lack of equipment, weather restraints, etc.). 88-Not Attempted due to Medical Conditions or Safety Concerns. Roll Left to Right (QC): 6 Sit to Lying (QC): 6 Sit to Stand (QC): 5 Chair/Xcw-ih-Boznu Xfer(QC): 4 Car Transfer (QC): 4 Gait Training Does the Patient Walk?: Yes Distance: 400' Walk 10 feet (QC): 4 Walk 50 ft with 2 Turns(QC): 4 Walk 150 ft (QC): 4 Walking 10ft/uneven surface-QC: 4 Gait Persons Needed: 1 Gait Assistive Device: FWW Wheelchair Training Does the Pt Use a Wheelchair?: No Wheel 50 ft with 2 turns (QC): 9 Wheel 150 ft (QC): 9 Stair Training Stair Training: Handrails/: 2 handrails #of Steps: 8 1 Step (curb) (QC): 4 4 Steps (QC): 4 12 Steps (QC): 88 Stairs: Pattern: Step to Balance Picking up an Object (QC): 4 ADL-Treatment Eating (QC): 6 Oral Hygiene (QC): 9 Bathing Location: L Arm, R Arm, L Upper Leg, R Upper Leg, L Lower Leg (including foot), R Lower Leg (including foot), Chest, Abdomen, Buttocks, Perineal Area Shower/Bathe Self (QC): 4 (CGA) Upper Body Dressing (QC): 5 Lower Body Dressing (QC): 3 (Min a for balance) On/Off Footwear (QC): 5 Toileting Hygiene (QC): 4 Toilet Transfer (QC): 3 (CGA) Assessment/Plan Assessment and Plan Assess & Plan/Chief Complaint Assessment: Debility Multiple falls Current subacute T12 compression fracture sustained in fall Right olecranon injury Diabetes mellitus [id number] Noncompliant with diabetic diet Plan: Supportive care Fall risk prevention Aggressive therapy regimen 11/11/2020: Decrease insulin to prevent hypoglycemia Pain control Monitor closely 11/12/2020: Supportive care Pain pill working well Monitor diabetes 11/13/2020: Very impulsive Regular insulin for elevated sugar 11/14/2020: Decrease Levemir to close to home dose Monitor closely Intensive rehab 11/15/2020: Monitor sugar Pain control 11/16/2020: Continue focus on balance dysfunction Fall risk 11/17/2020: Insulin management Monitor closely 11/18/2020: Decrease insulin to prevent hypoglycemia Continue therapy 11/19/2020: Continue current insulin regimen Prevent hypoglycemia 11/20/2020: Discharge tomorrow 11/21/2020: Delay of discharge due to 's unexpected (1) Debility (2) Diabetes mellitus insulin dependent IDDM uncontrolled (3) Weakness Status: Acute (4) T12 compression fracture Status: Acute (5) Fall (on) (from) other stairs and steps, initial encounter Status: Acute (6) Back pain Status: Acute KATELYNN VÁZQUEZ DO Nov 21, 2020 21:11
[2020-11-21] MEDS: AMITRIPTYLINE 50 MG (ELAVIL) TAB PO SCH (21:27)
[2020-11-22] MEDS: inSUlin ASPART (NovoLOG) 1 UNIT/0.01 ML (CHARGE PER UNIT) SC SCH (05:56)
[2020-11-22 08:00] VITALS: BP 129/75
--- NOTE | 2020-11-22 08:41 | Discharge Summary ---
Diagnosis/Chief Complaint Date of Admission Nov 10, 2020 at 11:15 Date of Discharge Discharge Date: Nov 21, 2020 Discharge Diagnosis Assessment: Debility Multiple falls Current subacute T12 compression fracture sustained in fall Right olecranon injury Diabetes mellitus [id number] Noncompliant with diabetic diet Plan: Supportive care Fall risk prevention Aggressive therapy regimen 11/11/2020: Decrease insulin to prevent hypoglycemia Pain control Monitor closely 11/12/2020: Supportive care Pain pill working well Monitor diabetes 11/13/2020: Very impulsive Regular insulin for elevated sugar 11/14/2020: Decrease Levemir to close to home dose Monitor closely Intensive rehab 11/15/2020: Monitor sugar Pain control 11/16/2020: Continue focus on balance dysfunction Fall risk 11/17/2020: Insulin management Monitor closely 11/18/2020: Decrease insulin to prevent hypoglycemia Continue therapy 11/19/2020: Continue current insulin regimen Prevent hypoglycemia 11/20/2020: Discharge tomorrow 11/21/2020: Delay of discharge due to 's unexpected (1) Debility (2) Diabetes mellitus insulin dependent IDDM uncontrolled (3) Weakness Status: Acute (4) T12 compression fracture Status: Acute (5) Fall (on) (from) other stairs and steps, initial encounter Status: Acute (6) Back pain Status: Acute Discharge Summary Discharge Physical Examination Allergies: Coded Allergies: lisinopril (Unverified Adverse Reaction, Intermediate, Cough, 11/10/20) Listed on medical record from PCP's office. Uncoded Allergies: Morphine Sulfate (Adverse Reaction, Intermediate, Confusion, 11/10/20) Listed on medical record from PCP's office. Vitals & I&Os Vital Signs Date Time Temp Pulse Resp B/P (MAP) Pulse Ox O2 Delivery O2 Flow Rate FiO2 11/22/20 10:00 36.6 80 16 129/75 97 Room Air General Appearance: Alert, Oriented X3, Cooperative Respiratory: Clear to Auscultation Cardiovascular: Regular Rate Neuro: Normal Gait, Normal Speech, Strength at 5/5 X4 Ext Psych/Mental Status: Mental Status NL Hospital Course Was the Problem List Reviewed?: Yes Hospital course: Pt had a delayed discharge, she was deemed stable but her was found 30 minutes before he was to pick her up. Son moved in with her to help her and she was optimized with therapy, was able to manage insulin while maintaining a good diabetic diet and Pt was deemed stable for discharge. Labs (last 24 hrs) Laboratory Tests 11/10/20 13:11: Glucometer 308H 11/10/20 16:02: Glucometer 189H 11/10/20 20:09: Glucometer 82 11/11/20 05:15: White Blood Count 9.5, Red Blood Count 4.66, Hemoglobin 12.4, Hematocrit 40, Mean Corpuscular Volume 85, Mean Corpuscular Hemoglobin 27, Mean Corpuscular Hemoglobin Concent 31L, Red Cell Distribution Width 14.2, Platelet Count 245, Mean Platelet Volume 9.8, Immature Granulocyte % (Auto) 0, Neutrophils (%) (Auto) 68, Lymphocytes (%) (Auto) 22, Monocytes (%) (Auto) 6, Eosinophils (%) ( Auto) 3, Basophils (%) (Auto) 1, Neutrophils # (Auto) 6.5, Lymphocytes # (Auto) 2.1, Monocytes # (Auto) 0.6, Eosinophils # (Auto) 0.3, Basophils # (Auto) 0.1, Immature Granulocyte # (Auto) 0.0, Sodium Level 135, Potassium Level 4.4, Chloride Level 99, Carbon Dioxide Level 26, Anion Gap 10, Blood Urea Nitrogen 24H, Creatinine 1.35H, Estimat Glomerular Filtration Rate 39, BUN/Creatinine Ratio 18, Glucose Level 79, Calcium Level 10.7H, Corrected Calcium 10.9H, Total Bilirubin 0.3, Aspartate Amino Transf (AST/SGOT) 19, Alanine Aminotransferase (ALT/SGPT) 12, Alkaline Phosphatase 100, Total Protein 7.8, Albumin 3.8 11/11/20 12:04: Glucometer 327H 11/11/20 15:27: Glucometer 172H 11/11/20 20:03: Glucometer 141H 11/12/20 06:41: Glucometer 222H 11/12/20 11:01: Glucometer 303H 11/12/20 16:13: Glucometer 245H 11/12/20 21:16: Glucometer 278H 11/13/20 05:28: Glucometer 174H 11/13/20 11:21: Glucometer 469*H 11/13/20 16:21: Glucometer 306H 11/13/20 20:22: Glucometer 205H 11/14/20 05:31: Glucometer 198H 11/14/20 05:40: White Blood Count 11.1H, Red Blood Count 4.45, Hemoglobin 11.7, Hematocrit 37, Mean Corpuscular Volume 82, Mean Corpuscular Hemoglobin 26, Mean Corpuscular Hemoglobin Concent 32, Red Cell Distribution Width 13.9, Platelet Count 225, Mean Platelet Volume 10.1, Immature Granulocyte % (Auto) 1, Neutrophils (%) (Auto) 71, Lymphocytes (%) (Auto) 18, Monocytes (%) (Auto) 5, Eosinophils (%) (Auto) 4, Basophils (%) (Auto) 1, Neutrophils # (Auto) 7.9H, Lymphocytes # (Auto) 2.0, Monocytes # (Auto) 0.6, Eosinophils # (Auto) 0.5H, Basophils # (Auto) 0.1, Immature Granulocyte # (Auto) 0.1, Sodium Level 133L, Potassium Leve l 4.2, Chloride Level 99, Carbon Dioxide Level 24, Anion Gap 10, Blood Urea Nitrogen 32H, Creatinine 1.37H, Estimat Glomerular Filtration Rate 39, BUN/Creatinine Ratio 23, Glucose Level 216H, Calcium Level 10.1, Corrected Calcium 10.3H, Total Bilirubin 0.3, Aspartate Amino Transf (AST/SGOT) 17, Trey ine Aminotransferase (ALT/SGPT) 17, Alkaline Phosphatase 102, Total Protein 7.4, Albumin 3.7 11/14/20 10:43: Glucometer 439*H 11/14/20 16:55: Glucometer 239H 11/14/20 20:51: Glucometer 290H 11/15/20 05:31: Glucometer 229H 11/15/20 11:59: Glucometer 230H 11/15/20 16:39: Glucometer 117H 11/15/20 20:51: Glucometer 114H 11/16/20 05:09: Glucometer 183H 11/16/20 10:51: Glucometer 162H 11/16/20 16:07: Glucometer 169H 11/16/20 21:27: Glucometer 206H 11/17/20 05:54: Glucometer 108 11/17/20 11:35: Glucometer 197H 11/17/20 16:25: Glucometer 171H 11/17/20 21:23: Glucometer 249H 11/18/20 05:30: Glucometer 53*L 11/18/20 05:59: Glucometer 49*L 11/18/20 06:30: Glucometer 96 11/18/20 11:21: Glucometer 207H 11/18/20 16:49: Glucometer 138H 11/18/20 21:00: Glucometer 159H 11/19/20 06:11: Glucometer 134H 11/19/20 11:26: Glucometer 172H 11/19/20 16:38: Glucometer 311H 11/19/20 16:41: Glucometer 302H 11/19/20 21:11: Glucometer 132H 11/20/20 06:03: Glucometer 120H 11/20/20 11:21: Glucometer 269H 11/20/20 16:27: Glucometer 183H 11/20/20 20:53: Glucometer 144H 11/21/20 05:58: Glucometer 149H 11/21/20 06:28: White Blood Count 9.2, Red Blood Count 4.61, Hemoglobin 12.4, Hematocrit 39, Mean Corpuscular Volume 84, Mean Corpuscular Hemoglobin 27, Mean Corpuscular Hemoglobin Concent 32, Red Cell Distribution Width 14.1, Platelet Count 293, Mean Platelet Volume 10.4, Immature Granulocyte % (Auto) 0, Neutrophils (%) (Auto) 68, Lymphocytes (%) (Auto) 19, Monocytes (%) (Auto) 6, Eosinophils (%) (Auto) 5, Basophils (%) (Auto) 1, Neutrophils # (Auto) 6.3, Lymphocytes # (Auto) 1.8, Monocytes # (Auto) 0.6, Eosinophils # (Auto) 0.5H, Basophils # (Auto) 0.1, Immature Granulocyte # (Auto) 0.0, Sodium Level 134L, Potassium Level 4.2, Chloride Level 99, Carbon Dioxide Level 24, Anion Gap 11, Blood Urea Nitrogen 28H, Creatinine 1.53H, Estimat Glomerular Filtration Rate 34, BUN/Creatinine Ratio 18, Glucose Level 151H, Calcium Level 9.9, Corrected Calcium 10.1, Total Bilirubin 0.4, Aspartate Amino Transf (AST/SGOT) 20, Alanine Aminotransferase (ALT/SGPT) 18, Alkaline Phosphatase 93, Total Protein 7.5, Albumin 3.8 11/21/20 11:18: Glucometer 186H 11/21/20 16:18: Glucometer 127H 11/21/20 21:03: Glucometer 182H 11/22/20 05:25: Glucometer 128H Pending Labs Laboratory Tests 11/10/20 13:11: Glucometer 308 11/10/20 16:02: Glucometer 189 11/10/20 20:09: Glucometer 82 11/11/20 05:15: White Blood Count 9.5, Red Blood Count 4.66, Hemoglobin 12.4, Hematocrit 40, Mean Corpuscular Volume 85, Mean Corpuscular Hemoglobin 27, Mean Corpuscular Hemoglobin Concent 31, Red Cell Distribution Width 14.2, Platelet Count 245, Mean Platelet Volume 9.8, Immature Granulocyte % (Auto) 0, Neutrophils (%) (Auto) 68, Lymphocytes (%) (Auto) 22, Monocytes (%) (Auto) 6, Eosinophils (%) (Auto) 3, Basophils (%) (Auto) 1, Neutrophils # (Auto) 6.5, Lymphocytes # (Auto) 2.1, Monocytes # (Auto) 0.6, Eosinophils # (Auto) 0.3, Basophils # (Auto) 0.1, Immature Granulocyte # (Auto) 0.0, Sodium Level 135, Potassium Level 4.4, Chloride Level 99, Carbon Dioxide Level 26, Anion Gap 10, Blood Urea Nitrogen 24, Creatinine 1.35, Estimat Glomerular Filtration Rate 39, BUN/Creatinine Ratio 18, Glucose Level 79, Calcium Level 10.7, Corrected Calcium 10.9, Total Bilirubin 0.3, Aspartate Amino Transf (AST/SGOT) 19, Alanine Aminotransferase (ALT/SGPT) 12, Alkaline Phosphatase 100, Total Protein 7.8, Albumin 3.8 11/11/20 12:04: Glucometer 327 11/11/20 15:27: Glucometer 172 11/11/20 20:03: Glucometer 141 11/12/20 06:41: Glucometer 222 11/12/20 11:01: Glucometer 303 11/12/20 16:13: Glucometer 245 11/12/20 21:16: Glucometer 278 11/13/20 05:28: Glucometer 174 11/13/20 11:21: Glucometer 469 11/13/20 16:21: Glucometer 306 11/13/20 20:22: Glucometer 205 11/14/20 05:31: Glucometer 198 11/14/20 05:40: White Blood Count 11.1, Red Blood Count 4.45, Hemoglobin 11.7, Hematocrit 37, Mean Corpuscular Volume 82, Mean Corpuscular Hemoglobin 26, Mean Corpuscular Hemoglobin Concent 32, Red Cell Distribution Width 13.9, Platelet Count 225, Mean Platelet Volume 10.1, Immature Granulocyte % (Auto) 1, Neutrophils (%) (Auto) 71, Lymphocytes (%) (Auto) 18, Monocytes (%) (Auto) 5, Eosinophils (%) (Auto) 4, Basophils (%) (Auto) 1, Neutrophils # (Auto) 7.9, Lymphocytes # (Auto) 2.0, Monocytes # (Auto) 0.6, Eosinophils # (Auto) 0.5, Basophils # (Auto) 0.1, Immature Granulocyte # (Auto) 0.1, Sodium Level 133, Potassium Level 4.2, Chloride Level 99, Carbon Dioxide Level 24, Anion Gap 10, Blood Urea Nitrogen 32, Creatinine 1.37, Estimat Glomerular Filtration Rate 39, BUN/Creatinine Ratio 23, Glucose Level 216, Calcium Level 10.1, Corrected Calcium 10.3, Total Bilirubin 0.3, Aspartate Amino Transf (AST/SGOT) 17, Alanine Aminotransferase (ALT/SGPT) 17, Alkaline Phosphatase 102, Total Protein 7.4, Albumin 3.7 11/14/20 10:43: Glucometer 439 11/14/20 16:55: Glucometer 239 11/14/20 20:51: Glucometer 290 11/15/20 05:31: Glucometer 229 11/15/20 11:59: Glucometer 230 11/15/20 16:39: Glucometer 117 11/15/20 20:51: Glucometer 114 11/16/20 05:09: Glucometer 183 11/16/20 10:51: Glucometer 162 11/16/20 16:07: Glucometer 169 11/16/20 21:27: Glucometer 206 11/17/20 05:54: Glucometer 108 11/17/20 11:35: Glucometer 197 11/17/20 16:25: Glucometer 171 11/17/20 21:23: Glucometer 249 11/18/20 05:30: Glucometer 53 11/18/20 05:59: Glucometer 49 11/18/20 06:30: Glucometer 96 11/18/20 11:21: Glucometer 207 11/18/20 16:49: Glucometer 138 11/18/20 21:00: Glucometer 159 11/19/20 06:11: Glucometer 134 11/19/20 11:26: Glucometer 172 11/19/20 16:38: Glucometer 311 11/19/20 16:41: Glucometer 302 11/19/20 21:11: Glucometer 132 11/20/20 06:03: Glucometer 120 11/20/20 11:21: Glucometer 269 11/20/20 16:27: Glucometer 183 11/20/20 20:53: Glucometer 144 11/21/20 05:58: Glucometer 149 11/21/20 06:28: White Blood Count 9.2, Red Blood Count 4.61, Hemoglobin 12.4, Hematocrit 39, Mean Corpuscular Volume 84, Mean Corpuscular Hemoglobin 27, Mean Corpuscular Hemoglobin Concent 32, Red Cell Distribution Width 14.1, Platelet Count 293, Mean Platelet Volume 10.4, Immature Granulocyte % (Auto) 0, Neutrophils (%) (Auto) 68, Lymphocytes (%) (Auto) 19, Monocytes (%) (Auto) 6, Eosinophils (%) (Auto) 5, Basophils (%) (Auto) 1, Neutrophils # (Auto) 6.3, Lymphocytes # (Auto) 1.8, Monocytes # (Auto) 0.6, Eosinophils # (Auto) 0.5, Basophils # (Auto) 0.1, Immature Granulocyte # (Auto) 0.0, Sodium Level 134, Potassium Level 4.2, Chloride Level 99, Carbon Dioxide Level 24, Anion Gap 11, Blood Urea Nitrogen 28, Creatinine 1.53, Estimat Glomerular Filtration Rate 34, BUN/Creatinine Ratio 18, Glucose Level 151, Calcium Level 9.9, Corrected Calcium 10.1, Total Bilirubin 0.4, Aspartate Amino Transf (AST/SGOT) 20, Alanine Aminotransferase (ALT/SGPT) 18, Alkaline Phosphatase 93, Total Protein 7.5, Albumin 3.8 11/21/20 11:18: Glucometer 186 9/20/21 16:18: Glucometer 127 11/21/20 21:03: Glucometer 182 11/22/20 05:25: Glucometer 128 Discharge Home Medications: Active Scripts Active Levemir (Insulin Determir) 1,000 Units/10 Ml Soln 30 Unit SQ 1800 30 Days Levemir (Insulin Determir) 1,000 Units/10 Ml Soln 10 Unit SQ DAILY@0700 30 Days Novolog Flexpen (Insulin Aspart) 300 Units/3 Ml Solution 8 Units SQ AC 30 Days Diclofenac Sodium 100 Gm Gel..gram. 0 Gm TOP QID PRN Reported Famotidine 20 Mg Tablet 20 Mg PO BID PRN Calcium (Calcium Carbonate) 600 Mg Tablet 600 Mg PO DAILY Losartan Potassium 50 Mg Tablet 50 Mg PO 1800 Meclizine HCl 25 Mg Tablet 25 Mg PO BID Neurontin (Gabapentin) 300 Mg Capsule 300 Mg PO TID Cyclobenzaprine HCl 10 Mg Tablet 10 Mg PO TID PRN Amitriptyline HCl 100 Mg Tablet 100 Mg PO HS Hydrocodone-Acetamin 7.5-325 (Hydrocodone/Acetaminophen) 1 Each Tablet 1 Each PO Q4H PRN Celebrex (Celecoxib) 200 Mg Capsule 200 Mg PO 1800 Aspirin EC (Aspirin) 81 Mg Tablet.dr 81 Mg PO DAILY Victoza 3-Jn (Liraglutide) 0.6 Mg/0.1 Ml Pen.injctr 1.8 Mg SC DAILY Lovastatin 20 Mg Tablet 20 Mg PO 1800 Instructions to patient/family Please see electronic discharge instructions given to patient. Diagnosis/Problems Diagnosis/Problems (1) Debility (2) Diabetes mellitus insulin dependent IDDM uncontrolled (3) Weakness Status: Acute (4) T12 compression fracture Status: Acute (5) Fall (on) (from) other stairs and steps, initial encounter Status: Acute (6) Back pain Status: Acute KATELYNN VÁZQUEZ DO Nov 22, 2020 08:41
[2020-11-22] MEDS: GABAPENTIN 300 MG (NEURONTIN) CAP PO SCH (08:44)
[2020-11-22] MEDS: CALCIUM CARBONATE 600 MG (CALCARB) TAB PO SCH (08:45)
[2020-11-22] MEDS: ASPIRIN E.C. 81 MG (ECOTRIN) TAB PO SCH (08:45)
[2020-11-22] MEDS: MECLIZINE 25 MG (ANTIVERT) TAB PO SCH (08:45)
[2020-11-22] MEDS: polyethylene glycoL POWDER 17 GM (MIRALAX) PACK PO SCH (08:50)
[2020-11-22] MEDS: SENNA W/DOCUSATE (SENOKOT S) TABLET PO SCH (08:50)
[2020-11-22] MEDS: HYDROcodone/APAP 7.5 MG/325 MG (LORTAB, LORCET PLUS) TABLET PO PRN (08:59)
[2020-11-22] MEDS: VICTOZA 18 MG/3 ML SQ SCH (09:33)
[2020-11-22 10:00] VITALS: BP 129/75
--- NOTE | 2020-11-22 11:20 | Therapy Team Discharge Summary ---
Therapy Discharge Summary Discharge Recommendations Date of Discharge Physical Therapy Patient came to rehab with falls, debility. Upon evaluation patient performed bed mobility and supine <-> sit with SBA, sit <-> stand CGA, transfers and car transfer min assist, ambulated 120' with a rolling walker with min assist (including 50' with at least 2 turns of 90 degrees and 10' over an uneven surface), and went up and down 1 step using a rolling walker with min assist. Patient has been performing bed mobility and transfer training, balance and endurance training, functional strengthening, stair training, gait training, and education. Patient has made some progress and has met her senior living goals for stairs, bed mobility, and supine <-> sit. Now, patient performs bed mobility and supine <-> sit with independence, sit <-> stand setup, transfers and car transfer CGA, ambulates 400' with a rolling walker with CGA (including 50' with at least 2 turns of 90 degrees and 10' over an uneven surface), can go up and down 8 steps using 2 handrails with CGA, and can order picker an object from the floor with CGA. Patient is discharging from this facility today and will be discharged from PT at this time. Occupational Therapy Decreased Activ Tolerance, Decreased Safety Aware, Decreased UE Strength, Impaired Cognition, Impaired Coordination, Impaired Funct Balance, Impaired I ADL's, Impaired Self-Care Skills, Restricted Funct UE ROM PT Central Communications Specialist Goals Central Communications Specialist Goals PT Assisted Goals Time Frame: Dec 01, 2020 Roll Left to Right (QC): 6 Sit to Lying (QC): 6 Lying-Sitting on Side/Bed(QC): 6 Sit to Stand (QC): 6 Chair/Fkh-ho-Uozxp Xfer(QC): 5 Car Transfer (QC): 5 Does the Patient Walk: Yes Walk 10 feet (QC): 5 Walk 10ft-Uneven Surface(QC): 5 Walk 50ft with 2 Turns (QC): 5 Walk 150 ft (QC): 5 Wheel 50 feet with 2 turns (QC: 9 1 Step (curb) (QC): 4 4 Steps (QC): 4 12 Steps (QC): 88 Picking up an Object (QC): 88 OT Central Communications Specialist Goals Central [employer] Specialist Goals Eating (QC): 6 (met) Oral Hygiene (QC): 9 Shower/Bathe Self (QC): 6 (not met) Upper Body Dressing (QC): 6 (not mt) Lower Body Dressing (QC): 6 (not met) On/Off Footwear (QC): 6 (not met) Toileting Hygiene (QC): 6 (no met) Toilet/Commode Transfer (QC): 5 1=Demonstrate adherence to instructed precautions during ADL tasks. 2=Patient will verbalize/demonstrate understanding of assistive devices/modifications for ADL. 3=Patient will improve strength/tolerance for activity to enable patient to perform ADL's. JENA LAKHANI PT Nov 22, 2020 11:20
--- NOTE | 2020-11-22 13:11 | Therapy Team Discharge Summary ---
Therapy Discharge Summary Discharge Recommendations Date of Discharge Therapy D/C Recommendations: 24 hr Supervision, Assisted Living, Bath Aide, Homemaker Support Occupational Therapy Patient came to rehab with falls and increased weakness. Upon evaluation, she was Min a for toileting and LB dressing, SBA for bathing, and set up for upper body dressing. Initially, pt made good progress towards medical terminologist goals. Towards end of stay, pt continued to decline and demonstrated increased unsteadiness, impulsivity, poor safety awareness, and several LOB during gait. Poor carry over with cues/education on safety, compensatory strategies and use of AE. Pt did not meet any of her LTG except for eating. Pt now SBA-CGA with all ADLS secondary to reasons noted above. Pt is not safe to return home alone at this time and OT is recommending 100% supervision and assist with home management. Pt was supposed to d/c previous date, but due to an unexpected (spouse) she stayed another day until her son could move into her home to assist. Pt will be discharging fr om this facility and will be discharged from OT at this time. Decreased Activ Tolerance, Decreased Safety Aware, Decreased UE Strength, Impaired Cognition, Impaired Coordination, Impaired Funct Balance, Impaired I ADL's, Impaired Self-Care Skills, Restricted Funct UE ROM PT Mcc Goals Mcc Goals PT Mcc Goals Time Frame: Dec 01, 2020 Roll Left to Right (QC): 6 Sit to Lying (QC): 6 Lying-Sitting on Side/Bed(QC): 6 Sit to Stand (QC): 6 Chair/Jys-wn-Nwvml Xfer(QC): 5 Car Transfer (QC): 5 Does the Patient Walk: Yes Walk 10 feet (QC): 5 Walk 10ft-Uneven Surface(QC): 5 Walk 50ft with 2 Turns (QC): 5 Walk 150 ft (QC): 5 Wheel 50 feet with 2 turns (QC: 9 1 Step (curb) (QC): 4 4 Steps (QC): 4 12 Steps (QC): 88 Picking up an Object (QC): 88 OT [employer] Goals [employer] Goals Eating (QC): 6 (met) Oral Hygiene (QC): 9 Shower/Bathe Self (QC): 6 (not met) Upper Body Dressing (QC): 6 (not mt) Lower Body Dressing (QC): 6 (not met) On/Off Footwear (QC): 6 (not met) Toileting Hygiene (QC): 6 (no met) Toilet/Commode Transfer (QC): 5 1=Demonstrate adherence to instructed precautions during ADL tasks. 2=Patient will verbalize/demonstrate understanding of assistive devices/modifications for ADL. 3=Patient will improve strength/tolerance for activity to enable patient to perform ADL's. Nenita Reyna OT Nov 22, 2020 13:11
== END 2020-11-22 10:00 | disposition home health service (06) | DRG 560 ==
PROVIDERS: ADMIT Internal Medicine; ATTEND Internal Medicine
DX: S22.089D Unspecified fracture of T11-T12 vertebra, subsequent encounter for fracture with routine healing (principal); N39.0 Urinary tract infection, site not specified; S52.021D Displaced fracture of olecranon process without intraarticular extension of right ulna, subsequent encounter for closed fracture with routine healing; Z91.81 History of falling; I10 Essential (primary) hypertension; E11.65 Type 2 diabetes mellitus with hyperglycemia; E11.40 Type 2 diabetes mellitus with diabetic neuropathy, unspecified; E11.21 Type 2 diabetes mellitus with diabetic nephropathy; F41.9 Anxiety disorder, unspecified; F32.9 Major depressive disorder, single episode, unspecified; B35.1 Tinea unguium; M20.42 Other hammer toe(s) (acquired), left foot; M20.41 Other hammer toe(s) (acquired), right foot; Z91.14 Patient's other noncompliance with medication regimen; Z91.11 Patient's noncompliance with dietary regimen; Z79.4 Long term (current) use of insulin; Z79.82 Long term (current) use of aspirin; Z88.6 Allergy status to analgesic agent; Z88.8 Allergy status to other drugs, medicaments and biological substances; Z87.891 Personal history of nicotine dependence; W19.XXXD Unspecified fall, subsequent encounter
CPT/HCPCS: 36415; 80053; 82947; 85025

== ENCOUNTER 2020-12-06 19:16 | Emergency (ER) | payer MEDICARE ==
[~2020-12-06] VITALS: Ht 162 cm; Wt 85.7 kg
[~2020-12-06 19:16] MED LIST changes: +DICL100G13 TOP
[2020-12-06] MEDS ORDERED: NS IV 1000 ML 1,000 ML IV SCH (20:00)
[2020-12-06 20:01] LABS: BASOPHILS # (AUTO) 0.1 10^3/uL (0.0-0.1); BASOPHILS % (AUTO) 1 % (0-10); EOSINOPHILS # (AUTO) 0.2 10^3/uL (0.0-0.3); EOSINOPHILS % (AUTO) 2 % (0-10); HEMATOCRIT 37 % (35-52); HEMOGLOBIN 11.9 g/dL (11.5-16.0); LYMPHOCYTES % (AUTO) 16 % (12-44); MEAN CORPUSCULAR HEMOGLOBIN 27 pg (25-34); MEAN CORPUSCULAR HGB CONC 33 g/dL (32-36); MEAN CORPUSCULAR VOLUME 83 fL (80-99); MONOCYTES % (AUTO) 8 % (0-12); NEUTROPHILS # (AUTO) 9.4 10^3/uL (1.8-7.8); NEUTROPHILS % (AUTO) 74 % (42-75); PLATELET COUNT 234 10^3/uL (130-400); WHITE BLOOD COUNT 12.8 10^3/uL (4.3-11.0)
--- NOTE | 2020-12-06 20:05 | ED General ---
General Chief Complaint: Glucose Problems Stated Complaint: ELEV BS Nursing Triage Note: pt presents to ed via pov from home with complaints of elevated glucose at home today. pt thinks she forgot to take her insulin today. pt reports she had a reading of 489 at home. Source of Information: Patient Exam Limitations: No Limitations History of Present Illness Date Seen by Provider: Dec 06, 2020 Time Seen by Provider: 19:32 Initial Comments This 65-year-old woman presents to the emergency room with complaints of hyperglycemia. She reports her blood sugar was 489 at home. Here it is 345. She does not recall if she took her usual Levemir dose this morning. She typically takes Levemir 25 units in the morning. She is also on Victoza. She denies taking any oral diabetes medications. Her family reports that she has had high blood sugars in recent days as well. She denies feeling ill. She appears quite somnolent and she states this is because she took her gabapentin prior to leaving the house. She reports she typically gets drowsy like this after taking gabapentin. She denies any acute illness such as vomiting, fever, cough, dysuria, etc. Her primary care provider is Dave Molina at [facility]. She denies using any short acting insulin although she does show a prescription filled for NovoLog as recently as October 24. Allergies and Home Medications Allergies Coded Allergies: lisinopril (Unverified Adverse Reaction, Intermediate, Cough, 11/10/20) Listed on medical record from PCP's office. Uncoded Allergies: Morphine Sulfate (Adverse Reaction, Intermediate, Confusion, 11/10/20) Listed on medical record from PCP's office. Patient Home Medication List Home Medication List Reviewed: Yes Amitriptyline HCl (Amitriptyline HCl) 100 Mg Tablet, 100 MG PO HS, (Reported) Entered as Reported by: DEEJAY BRUMFIELD on 11/09/20 1448 Aspirin (Aspirin EC) 81 Mg Tablet.dr, 81 MG PO DAILY, (Reported) Entered as Reported by: JULIAN MARTINEZ on 10/24/18 1352 Calcium Carbonate (Calcium) 600 Mg Tablet, 600 MG PO DAILY, (Reported) Entered as Reported by: DEEJAY BRUMFIELD on 11/09/20 1448 Celecoxib (Celebrex) 200 Mg Capsule, 200 MG PO 1800, (Reported) Entered as Reported by: MI FALLON on 08/05/20 1558 Cyclobenzaprine HCl (Cyclobenzaprine HCl) 10 Mg Tablet, 10 MG PO TID PRN for MUSCLE SPASMS, (Reported) Entered as Reported by: DEEJAY BRUMFIELD on 11/09/20 1448 Diclofenac Sodium (Diclofenac Sodium) 100 Gm Gel..gram., 0 GM TOP QID PRN for PAIN-MODERATE (5-7) Prescribed by: KATELYNN VÁZQUEZ on 11/20/20 175 Famotidine (Famotidine) 20 Mg Tablet, 20 MG PO BID PRN for HEARTBURN, (Reported) Entered as Reported by: DEEJAY BRUMFIELD on 11/09/20 1451 Gabapentin (Neurontin) 300 Mg Capsule, 300 MG PO TID, (Reported) Entered as Reported by: DEEJAY BRUMFIELD on 11/09/20 1448 Hydrocodone/Acetaminophen (Hydrocodone-Acetamin 7.5-325) 1 Each Tablet, 1 EACH P O Q4H PRN for PAIN-MODERATE (5-7), (Reported) Entered as Reported by: MI FALLON on 08/05/20 155 Insulin Aspart (Novolog Flexpen) 300 Units/3 Ml Solution, 8 UNITS SQ AC Prescribed by: KATELYNN VÁZQUEZ on 11/20/201756 Insulin Determir (Levemir) 1,000 Units/10 Ml Soln, 10 UNIT SQ DAILY@0700 Prescribed by: KATELYNN VÁZQUEZ on 11/20/201756 Insulin Determir (Levemir) 1,000 Units/10 Ml Soln, 30 UNIT SQ 1800 Prescribed by: KATELYNN VÁZQUEZ on 11/20/201756 Liraglutide (Victoza 3-Jn) 0.6 Mg/0.1 Ml Pen.injctr, 1.8 MG SC DAILY, (Reported) Entered as Reported by: JULIAN MARTINEZ on 10/24/18 1256 Losartan Potassium (Losartan Potassium) 50 Mg Tablet, 50 MG PO 1800, (Reported) Entered as Reported by: DEEJAY BRUMFIELD on 11/09/20 1448 Lovastatin (Lovastatin) 20 Mg Tablet, 20 MG PO 1800, (Reported) Entered as Reported by: DINH FISHER on 09/19/17 1030 Meclizine HCl (Meclizine HCl) 25 Mg Tablet, 25 MG PO BID, (Reported) Entered as Reported by: DEEJAY BRUMFIELD on 11/09/20 1448 Review of Systems Review of Systems Constitutional: see HPI EENTM: no symptoms reported Respiratory: no symptoms reported Cardiovascular: no symptoms reported Gastrointestinal: no symptoms reported Genitourinary: no symptoms reported : No Musculoskeletal: no symptoms reported Skin: no symptoms reported Psychiatric/Neurological: See HPI Hematologic/Lymphatic: No Symptoms Reported Immunological/Allergic: no symptoms reported Past Hvmjfjz-Aeiivc-Mnozma Hx Patient Social History Tobacco Use?: No Substance use?: No Alcohol Use?: No Pt feels they are or have been: No Immunizations Up To Date First/Initial COVID19 Vaccinat: May 10 2020 Second COVID19 Vaccination Hernando: June 11 2020 COVID19 Vaccine Motion Picture Set Grip: fanta Past Medical History Surgery/Hospitalization HX: sx: gastric bypass, gallbladder, hyst, appy pmh: dm, htn, chronic pain. Surgeries: Yes (GASTRIC BYPASS, BACK SX X 2) Abdominal, Appendectomy, Gallbladder, Hysterectomy, Orthopedic Respiratory: No Cardiac: Yes Hypertension Neurological: Yes Neuropathy Reproductive Disorders: No CALL CENTER RN History: Hysterectomy Genitourinary: Yes Bladder Infection Gastrointestinal: No Musculoskeletal: Yes (RESTLESS LEG SYNDROME) Back Injury, Chronic Back Pain Endocrine: Yes Diabetes, Insulin dep HEENT: Yes (GLASSES) Cancer: No Psychosocial: Yes Sleep Difficulties, Anxiety, Depression Integumentary: No Blood Disorders: Yes (ANEMIA) Family Medical History Reviewed Nursing Family Hx Cancer, Diabetes, Stroke Physical Exam Vital Signs Vital Signs - First Documented 12/06/20 19:38 Temp 36.8 Pulse 85 Resp 18 B/P (MAP) 105/69 (81) Pulse Ox 93 Capillary Refill : Less Than 3 Seconds Height, Weight, BMI Height: 5'5.00" Weight: 187lbs. 0.6oz. 84.028588cx; 32.00 BMI Method:Stated General Appearance: No Apparent Distress, WD/WN, Obese, Other (Appears somnolent) HEENT: PERRL/EOMI, Normal ENT Inspection, Other (Oropharynx quite dry) Neck: Normal Inspection; No JVD Respiratory: Lungs Clear, Normal Breath Sounds, No Accessory Muscle Use, No Respiratory Distress Cardiovascular: Regular Rate, Rhythm, No Edema, No Murmur, Normal Peripheral Pulses Gastrointestinal: Normal Bowel Sounds, Non Tender, Soft Extremity: Normal Inspection, No Pedal Edema Neurologic/Psychiatric: Alert, Oriented x3, No Motor/Sensory Deficits, Normal Mood/Affect, marketing effectiveness manager II-XII Norm as Tested, Other (Somnolent but alert and oriented) Skin: Normal Color, Warm/Dry Progress/Results/Core Measures Suspected Sepsis SIRS Temperature: Pulse: 85 Respiratory Rate: 18 Laboratory Tests 12/06/20 19:33: White Blood Count 12.8H Blood Pressure 105 /69 Mean: 81 Laboratory Tests 12/06/20 19:33: Creatinine 1.45H, Platelet Count 234 Results/Orders Lab Results Laboratory Tests Test 12/06/20 19:27 12/06/20 19:33 12/06/20 20:20 12/06/20 20:46 Range/Units Glucometer 345 H 325 H 70-110 MG/DL White Blood Count 12.8 H 4.3-11.0 10^3/uL Red Blood Count 4.43 3.80-5.11 10^6/uL Hemoglobin 11.9 11.5-16.0 g/dL Hematocrit 37 35-52 % Mean Corpuscular Volume 83 80-99 fL Mean Corpuscular Hemoglobin 27 25-34 pg Mean Corpuscular Hemoglobin Concent 33 32-36 g/dL Red Cell Distribution Width 14.1 10.0-14.5 % Platelet Count 234 130-400 10^3/uL Mean Platelet Volume 11.0 9.0-12.2 fL Immature Granulocyte % (Auto) 0 % Neutrophils (%) (Auto) 74 42-75 % Lymphocytes (%) (Auto) 16 12-44 % Monocytes (%) (Auto) 8 0-12 % Eosinophils (%) (Auto) 2 0-10 % Basophils (%) (Auto) 1 0-10 % Neutrophils # (Auto) 9.4 H 1.8-7.8 10^3/uL Lymphocytes # (Auto) 2.0 1.0-4.0 10^3/uL Monocytes # (Auto) 1.0 0.0-1.0 10^3/uL Eosinophils # (Auto) 0.2 0.0-0.3 10^3/uL Basophils # (Auto) 0.1 0.0-0.1 10^3/uL Immature Granulocyte # (Auto) 0.1 0.0-0.1 10^3/uL Sodium Level 131 L 135-145 MMOL/L Potassium Level 4.3 3.6-5.0 MMOL/L Chloride Level 99 98-107 MMOL/L Carbon Dioxide Level 19 L 21-32 MMOL/L Anion Gap 13 5-14 MMOL/L Blood Urea Nitrogen 18 7-18 MG/DL Creatinine 1.45 H 0.60-1.30 MG/DL Estimat Glomerular Filtration Rate 36 BUN/Creatinine Ratio 12 Glucose Level 382 H 70-105 MG/DL Calcium Level 9.6 8.5-10.1 MG/DL Urine Color YELLOW Urine Clarity CLEAR Urine pH 5.5 5-9 Urine Specific [place] 1.025 H 1.016-1.022 Urine Protein NEGATIVE NEGATIVE Urine Glucose (UA) 3+ H NEGATIVE Urine Ketones NEGATIVE NEGATIVE Urine Nitrite NEGATIVE NEGATIVE Urine Bilirubin NEGATIVE NEGATIVE Urine Urobilinogen 0.2 < = 1.0 MG/DL Urine Leukocyte Esterase NEGATIVE NEGATIVE Urine RBC (Auto) 1+ H NEGATIVE Urine RBC 2-5 H /HPF Urine WBC 10-25 H /HPF Urine Squamous Epithelial Cells 0-2 /HPF Urine Renal Epithelial Cells NONE /HPF Urine Crystals NONE /LPF Urine Bacteria NEGATIVE /HPF Urine Casts NONE /LPF Urine Mucus NEGATIVE /LPF Urine Culture Indicated NO My Orders Orders - RACHELE BLACKWELL MD Accucheck Stat ONCE (12/06/20 19:32) Basic Metabolic Panel (12/06/20 19:55) Cbc With Automated Diff (12/06/20 19:55) Ua Culture If Indicated (12/06/20 19:55) Ed Iv/Invasive Line Start (12/06/20 19:55) Ns Iv 1000 Ml (Sodium Chloride 0.9%) (12/06/20 20:00) Accucheck Stat ONCE (12/06/20 19:55) Vital Signs/I&O 12/06/20 12/06/20 19:38 21:24 Temp 36.8 Pulse 85 98 Resp 18 18 B/P (MAP) 105/69 (81) 117/75 Pulse Ox 93 98 Capillary Refill : Less Than 3 Seconds Blood Pressure Mean: 81 Point of Care Testing Finger Stick Blood Glucose: 345 Progress Note #1: Time: 20:04 Progress Note Basic labs and urinalysis are being obtained. A liter of IV normal saline is being infused. We will check her blood sugars again after the saline has infused. Progress Note #2: Progress Note Labs were unremarkable from baseline. Blood sugar improved slightly and was stable. Patient was ambulating about the ER and ready for discharge. See discharge instructions for discussion. Departure Impression Primary Impression: Hyperglycemia Additional Impression: Type 2 diabetes mellitus Qualified Codes: E11.65 - Type 2 diabetes mellitus with hyperglycemia; Z79.4 - prison (current) use of insulin Disposition: HOME, SELF-CARE Condition: Improved Departure-Patient Inst. Decision time for Depature: 21:16 Referrals: [facility] (PCP) Primary Care Physician CATRACHITA MOLINA (Family) Primary Care Physician Patient Instructions: Hyperglycemia, Adult (DC) Add. Discharge Instructions: Drink plenty of water to stay well-hydrated. Keep your follow-up appointment with your doctor tomorrow. Resume your insulin injections in the morning. Until then, avoid any sugars or carbohydrates. Set a reminder on your phone or another device to take your insulin daily. It would be rdz to check your blood sugars fasting in the morning and 2 hours after each meal for the next several days to ensure your blood sugars are well controlled. Call with questions or concerns. Return to care if you have worsening symptoms. All discharge instructions reviewed with patient and/or family. Voiced understanding. Copy Copies To 1: JOSE LUIS SOLO JOSHUA T MD Dec 06, 2020 20:04
[2020-12-06 20:10] LABS: CALCIUM 9.6 MG/DL (8.5-10.1); CREATININE SERUM 1.45 MG/DL (0.60-1.30); POTASSIUM 4.3 MMOL/L (3.6-5.0)
[2020-12-06 20:52] LABS: BILIRUBIN,URINE NEGATIVE (NEGATIVE); CLARITY,URINE CLEAR; COLOR,URINE YELLOW; GLUCOSE, URINE (UA) 3+ (NEGATIVE); KETONES,URINE NEGATIVE (NEGATIVE); LEUKOCYTE ESTERASE ,URINE NEGATIVE (NEGATIVE); NITRITE,URINE NEGATIVE (NEGATIVE); PH,URINE 5.5 (5-9); PROTEIN,URINE NEGATIVE (NEGATIVE)
[2020-12-06 21:00] LABS: BACTERIA,URINE NEGATIVE /HPF; SQUAMOUS EPITHELIAL CELL,UR 0-2 /HPF
[2020-12-06 21:24] VITALS: BP 117/75
== END 2020-12-06 21:24 | disposition home or self-care (01) ==
LOC: EDUNIT# 19:16 → ER 19:17
DX: E11.65 Type 2 diabetes mellitus with hyperglycemia (principal); Z79.4 Long term (current) use of insulin; I10 Essential (primary) hypertension; G89.29 Other chronic pain; M54.9 Dorsalgia, unspecified; F41.9 Anxiety disorder, unspecified; F32.9 Major depressive disorder, single episode, unspecified; Z79.891 Long term (current) use of opiate analgesic; Z79.899 Other long term (current) drug therapy; Z79.82 Long term (current) use of aspirin
CPT/HCPCS: 36415; 80048; 81000; 82947; 85025

== ENCOUNTER 2021-08-01 10:48 | Emergency (ER) | payer MEDICARE ==
[~2021-08-01] VITALS: Ht 160 cm; Wt 64.0 kg
[~2021-08-01 10:48] MED LIST changes: +AMLO-250 PO; +CARV3.122 PO; +CEPH500C PO; +CLON0.5T4 PO; +CYCL10TA25 PO; -CYCL10TA9 PO; +DICL100G13 TP; +INSU100V16 SC; +NAPR220T66 PO; +ROSU20TA32 PO; +TICA90TA PO
--- NOTE | 2021-08-01 11:19 | ED Neurological Problem ---
General Stated Complaint: DIFFICULTY WALKING Source: patient, old records History of Present Illness Date Seen by Provider: August 01, 2021 Time Seen by Provider: 11:19 Initial Comments This is a 65-year-old female with a history of diabetes, TIA, chronic weakness of her lower extremities that presented to the ER via POV with complaint of increasing numbness and difficulty walking over the past couple days. States she has a history of TIAs and is concerned that she may have had a stroke. Also reports mid thoracic back pain that has worsened since yesterday when she experienced a same level fall. States she was attempting to get up when she fell sideways. Denies head/neck injury. She has a known T12 burst fracture with mild retropulsion portion that was found on her CT imaging November 01, 2020. At this time her only complaints are the numbness and weakness of her lower extremities. She denies headache, neck pain, vision changes, fever, chills, cough, shortness of breath, nausea, vomiting, abdominal pain, numbness or tingling in her groin, no loss of bowel or bladder control. Allergies and Home Medications Allergies Coded Allergies: lisinopril (Unverified Adverse Reaction, Intermediate, Cough, 11/10/20) Listed on medical record from PCP's office. morphine (Unverified Adverse Reaction, Mild, CONFUSION, 12/20/20) Patient Home Medication List Home Medication List Reviewed: Yes Amitriptyline HCl (Amitriptyline HCl) 100 Mg Tablet, 100 MG PO HS, (Reported) Entered as Reported by: DEEJAY BRUMFIELD on 11/09/20 1448 Amlodipine Besylate (Amlodipine Besylate) 5 Mg Tablet, 5 MG PO DAILY Prescribed by: KATELYNN VÁZQUEZ on 12/21/20 1007 Aspirin (Aspirin EC) 81 Mg Tablet.dr, 81 MG PO DAILY, (Reported) Entered as Reported by: JULIAN MARTINEZ on 10/24/18 1352 Calcium Carbonate (Calcium) 600 Mg Tablet, 600 MG PO DAILY, (Reported) Entered as Reported by: DEEJAY BRUMFIELD on 11/09/20 1448 Carvedilol (Carvedilol) 3.125 Mg Tablet, 3.125 MG PO BID Prescribed by: KATELYNN VÁZQUEZ on 12/21/20 1007 Cephalexin (Cephalexin) 500 Mg Capsule, 500 MG PO QID Prescribed by: KATELYNN VÁZQUEZ on 12/21/201006 Clonazepam (Clonazepam) 0.5 Mg Tablet, 0.25 MG PO HS Prescribed by: KATELYNN VÁZQUEZ on 12/21/201006 Cyclobenzaprine HCl (Cyclobenzaprine HCl) 10 Mg Tablet, 10 MG PO BID PRN for MUSCLE SPASMS, (Reported) Entered as Reported by: DEEJAY BRUMFIELD on 11/09/20 1448 Diclofenac Sodium (Diclofenac Sodium) 100 Gm Gel..gram., 100 GM TP TID PRN for PAIN-MILD (1-4), (Reported) Entered as Reported by: AFSANEH QUINONES on 12/19/20 1013 Famotidine (Famotidine) 20 Mg Tablet, 20 MG PO DAILY Prescribed by: KATELYNN VÁZQUEZ on 12/21/201006 Gabapentin (Neurontin) 300 Mg Capsule, 300 MG PO TID, (Reported) Entered as Reported by: DEEJAY BRUMFIELD on 11/09/20 1448 Hydrocodone/Acetaminophen (Hydrocodone-Acetamin 7.5-325) 1 Each Tablet, 1 EACH PO Q4H PRN for PAIN-MODERATE (5-7) Prescribed by: KATELYNN VÁZQUEZ on 12/21/201006 Insulin Aspart (Novolog) 100 Unit/1 Ml Susp, 0 UNIT SC ACHS Prescribed by: KATELYNN VÁZQUEZ on 12/21/201006 Insulin Determir (Levemir) 1,000 Units/10 Ml Soln, 30 UNITS SQ DAILY PRN for BLOOD GLUCOSE OVER 150, (Reported) Entered as Reported by: AFSANEH QUINONES on 12/19/20 1016 Liraglutide (Victoza 3-Jn) 0.6 Mg/0.1 Ml Pen.injctr, 1.8 MG SC DAILY, (Reported) Entered as Reported by: JULIAN MARTINEZ on 10/24/18 1256 Losartan Potassium (Losartan Potassium) 50 Mg Tablet, 50 MG PO 1800, (Reported) Entered as Reported by: DEEJAY BRUMFIELD on 11/09/20 1448 Rosuvastatin Calcium (Rosuvastatin Calcium) 20 Mg Tablet, 20 MG PO HS Prescribed by: KATELYNN VÁZQUEZ on 12/21/201006 Ticagrelor (Brilinta) 90 Mg Tablet, 90 MG PO BID Prescribed by: KATELYNN VÁZQUEZ on 12/21/20 1007 Review of Systems Review of Systems Constitutional: no symptoms reported Eyes: No Symptoms Reported Ears, Nose, Mouth, Throat: no symptoms reported Respiratory: no symptoms reported Cardiovascular: no symptoms reported Gastrointestinal: no symptoms reported Genitourinary: no symptoms reported Musculoskeletal: see HPI Skin: no symptoms reported Psychiatric/Neurological: No Symptoms Reported Endocrine: No Symptoms Reported Hematologic/Lymphatic: No Symptoms Reported Past Mefeoli-Wkzdcd-Pjxtaw Hx Immunizations Up To Date First/Initial COVID19 Vaccinat: May 10 2020 Second COVID19 Vaccination Hernando: June 11 2020 Third COVID19 Vaccination Date: May 10 2020 Past Medical History Surgery/Hospitalization HX: sx: gastric bypass, gallbladder, hyst, ovarian cyst removal, appendectomy, disc surgery pmh: dm, htn, chronic pain. 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 0.6oz. 84.280442bu; 29.00 BMI Method:Stated General Appearance: WD/WN, no apparent distress HEENT: PERRL/EOMI, normal ENT inspection, TMs normal, pharynx normal Neck: non-tender, full range of motion, supple, normal inspection Respiratory: chest non-tender, lungs clear, normal breath sounds, no respiratory distress, no accessory muscle use Cardiovascular: regular rate, rhythm, no edema, no gallop Gastrointestinal: normal bowel sounds, non tender, soft Back: normal inspection, vertebral tenderness (thoracic/lumbar midline tenderness) Extremities: normal range of motion, non-tender, normal inspection, no pedal edema, no calf tenderness, pelvis stable Neurologic/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 ) Crainal Nerves: normal hearing, normal speech, PERRL Coordination/Gait: normal finger to nose Motor/Sensory: no motor deficit, no sensory deficit, no pronator drift Skin: normal color, warm/dry Stroke NIH Stroke Scale Assessment Gaze: Normal (0), Total: Stroke Thrombolytic Exclusion Age 18 or Over: Yes Progress/Results/Core Measures Results/Orders Lab Results Laboratory Tests Test 08/01/21 11:35 08/01/21 11:36 08/01/21 11:53 Range/Units White Blood Count 11.0 4.3-11.0 10^3/uL Red Blood Count 5.01 3.80-5.11 10^6/uL Hemoglobin 13.1 11.5-16.0 g/dL Hematocrit 40 35-52 % Mean Corpuscular Volume 80 80-99 fL Mean Corpuscular Hemoglobin 26 25-34 pg Mean Corpuscular Hemoglobin Concent 33 32-36 g/dL Red Cell Distribution Width 17.2 H 10.0-14.5 % Platelet Count 261 130-400 10^3/uL Mean Platelet Volume 10.2 9.0-12.2 fL Immature Granulocyte % (Auto) 0 % Neutrophils (%) (Auto) 72 42-75 % Lymphocytes (%) (Auto) 18 12-44 % Monocytes (%) (Auto) 6 0-12 % Eosinophils (%) (Auto) 3 0-10 % Basophils (%) (Auto) 1 0-10 % Neutrophils # (Auto) 8.0 H 1.8-7.8 10^3/uL Lymphocytes # (Auto) 1.9 1.0-4.0 10^3/uL Monocytes # (Auto) 0.7 0.0-1.0 10^3/uL Eosinophils # (Auto) 0.4 H 0.0-0.3 10^3/uL Basophils # (Auto) 0.1 0.0-0.1 10^3/uL Immature Granulocyte # (Auto) 0.0 0.0-0.1 10^3/uL Prothrombin Time 12.9 12.2-14.7 SEC INR Comment 0.9 0.8-1.4 Activated Partial Thromboplast Time 32 24-35 SEC D-Dimer 0.65 H 0.00-0.49 UG/ML Sodium Level 138 135-145 MMOL/L Potassium Level 3.8 3.6-5.0 MMOL/L Chloride Level 103 98-107 MMOL/L Carbon Dioxide Level 22 21-32 MMOL/L Anion Gap 13 5-14 MMOL/L Blood Urea Nitrogen 10 7-18 MG/DL Creatinine 0.91 0.60-1.30 MG/DL Estimat Glomerular Filtration Rate 70 BUN/Creatinine Ratio 11 Glucose Level 129 H 70-105 MG/DL Calcium Level 9.1 8.5-10.1 MG/DL Corrected Calcium 9.3 8.5-10.1 MG/DL Total Bilirubin 0.3 0.1-1.0 MG/DL Aspartate Amino Transf (AST/SGOT) 11 5-34 U/L Alanine Aminotransferase (ALT/SGPT) 9 0-55 U/L Alkaline Phosphatase 83 40-136 U/L Troponin I < 0.028 <0.028 NG/ML Total Protein 6.7 6.4-8.2 GM/DL Albumin 3.7 3.2-4.5 GM/DL Glucometer 127 H 70-110 MG/DL Urine Color DARK YELLOW Urine Clarity CLEAR Urine pH 6.0 5-9 Urine Specific [place] 1.025 H 1.016-1.022 Urine Protein TRACE H NEGATIVE Urine Glucose (UA) NEGATIVE NEGATIVE Urine Ketones NEGATIVE NEGATIVE Urine Nitrite NEGATIVE NEGATIVE Urine Bilirubin NEGATIVE NEGATIVE Urine Urobilinogen 0.2 < = 1.0 MG/DL Urine Leukocyte Esterase 2+ H NEGATIVE Urine RBC (Auto) NEGATIVE NEGATIVE Urine RBC NONE /HPF Urine WBC 50-100 H /HPF Urine Squamous Epithelial Cells 2-5 /HPF Urine Crystals NONE /LPF Urine Bacteria MODERATE H /HPF Urine Casts NONE /LPF Urine Mucus NEGATIVE /LPF Urine Culture Indicated YES My Orders Orders - DEYANIRA HILL SQL ANALYST Ua Culture If Indicated (08/01/21 11:21) Accucheck Stat ONCE (08/01/21 11:21) Cbc With Automated Diff (08/01/21 11:35) Protime With Inr (08/01/21 11:35) Partial Thromboplastin Time (08/01/21 11:35) Comprehensive Metabolic Panel (08/01/21 11:35) Fibrin Degradation Products (08/01/21 11:35) Troponin I Royce (08/01/21 11:35) Chest 1 View, Ap/Pa Only (08/01/21 11:35) Ekg Tracing (08/01/21 11:35) Ed Iv/Invasive Line Start (08/01/21 11:35) Vital Signs Stroke Patient Q15M (08/01/21 11:35) Ct Head Wo-R/O Stroke (08/01/21 11:35) O2 (08/01/21 11:35) Monitor-Rhythm Ecg Trace Only (08/01/21 11:35) Dysphagia Screening Tool Q10MX1 (08/01/21 11:35) Ct Lumbar Spine Wo (08/01/21 11:53) Urine Culture (08/01/21 11:53) Ct Thoracic Spine Wo (08/01/21 13:32) Ceftriaxone 1 Gm Pre-Mix (Rocephin 1 Gm (08/01/21 15:00) Medications Given in ED Current Medications Medications Dose Ordered Sig/Edwar Route Start Time Stop Time Status Last Admin Dose Admin Ceftriaxone Sodium/Dextrose 50 ml @ 100 mls/hr ONCE ONCE IV 08/01/21 15:00 08/01/21 15:29 UNV 08/01/21 15:01 100 MLS/HR Vital Signs/I&O 08/01/21 11:20 Temp 36.3 Pulse 91 Resp 16 B/P (MAP) 134/91 (105) Pulse Ox 91 O2 Delivery Room Air Progress Progress Note : Progress Note Patient examined and in no acute distress. Initial blood glucose is 127 at bedside. She has no focal or gross neurological deficits appreciated on initial exam. She is not on any reported anticoagulants. We will go ahead and obtain stroke work-up as well as image her lower back due to her recent fall and her history of a T12 burst fracture. Patient attempted to wheel herself out the back ambulance bay to smoke multiple times. Was instructed to remain in her bed until her workup is complete. Labs reviewed and are unremarkable, no elevation and cardiac enzymes. Her EKG shows no acute ischemic changes. CT head is unremarkable. She does have an unstable 3 column fracture of the T12 with approximate 90% height loss centrally, moderate retropulsion, and widening of the facet joints. Reviewed findings with patient and discussed that we will need to consult with neurosurgery and possibly transfer, states she states that she has no preference on transfer facility. 1448: Discussed case with Dr. Tabares with neurosurgery, recommended transfer to the emergency department and will likely perform surgery tomorrow morning. Spoke to Dr. Harris in the emergency department and she accepted patient transfer at this time. 1452: Reviewed recommendations with patient and discussed transfer, risk and benefits. She verbalized consent for transfer to [facility]. Initial ECG Impression Date: August 01, 2021 Initial ECG Impression Time: 11:53 Initial ECG Rate: 87 Initial ECG Rhythm: Normal Sinus Initial ECG Intervals: Normal Initial ECG Impression: Nonspecific Changes Diagnostic Imaging Comments [facility] [place] [place] NAME: GOPAL ISAACS [facility] REC#: [id number] PT STATUS: REG ER : 1955 PHYSICIAN: DEYANIRA HILL APRN ADMIT DATE: 08/01/21/ER Draft Date of Exam:08/01/21 CT THORACIC SPINE WO PROCEDURE: CT thoracic spine without contrast. TECHNIQUE: Multiple axial computerized tomography images were obtained from the base of the thoracic spine to the vertex without intravenous contrast. Auto Exposure Controls were utilized during the CT exam to meet ALARA standards for radiation dose reduction. INDICATION: T12 fracture. Fall. COMPARISON: CT lumbar spine without contrast on 11/01/2020 and 08/01/2021. FINDINGS: The burst fracture of T12 resulting in approximately 90% height loss centrally and moderate retropulsion is stable compared to earlier today. This includes widening of the facet joints at T12-L1. Both the vertebral body height loss, retropulsion, and widening of the facet joints has progressed since 11/01/2020. The retropulsion results in kpag-vo-vboaerws spinal canal stenosis. The thoracic vertebral body heights are otherwise preserved. No other fracture is identified. No high-grade spinal canal stenosis is evident by noncontrast CT. Calcified left hilar lymph nodes. Calcified granulomas in the spleen. Partially visualized post operative changes in the stomach. No acute findings in the visualized paravertebral soft tissues. IMPRESSION: Unstable 3 column fracture of T12 results in approximately 90% height loss centrally, moderate retropulsion, and widening of the facet joints. Each of these fracture components has progressed since 11/01/2020. Recommend neurosurgical consultation. Findings were discussed with Deyanira Hill APRN, at 2:35 PM on 08/01/2021. Dictated on workstation # [id number] Dict: 08/01/21 1426 Trans: 08/01/21 1440 [id number] Interpreted by: RACHEL FLORES MD Electronically signed by: [facility] [place] [place] NAME: GOPAL ISAACS [facility] REC#: [id number] PT STATUS: REG ER : 1955 PHYSICIAN: DEYANIRA HILL APRN ADMIT DATE: 08/01/21/ER Draft Date of Exam:08/01/21 CT LUMBAR SPINE WO PROCEDURE: CT lumbar spine without contrast. TECHNIQUE: Multiple contiguous axial images were obtained through the lumbar spine without the use of intravenous contrast. Sagittal and coronal reformations were then performed. Auto Exposure Controls were utilized during the CT exam to meet ALARA standards for radiation dose reduction. INDICATION: Low back pain and lower extremity weakness. COMPARISON: 11/01/2020. FINDINGS: There has been a significant adverse change with significant progression of the burst type fracture involving the T12 vertebral body. There is retropulsion resulting in moderate spinal stenosis at the T12 level. No definite extension of the fracture line is seen into the pedicles or posterior elements. Note is made of a mild paravertebral hematoma. Otherwise, the appearance of the lumbar spine has remained stable including grade 1 anterolisthesis of L3 on L4 and discectomy with posterior fusion at L4-L5. No other acute fracture or paraspinous hematoma is identified. Diffuse disc bulging at L2-L3 and L3-L4 results in moderate spinal stenoses. IMPRESSION: Progression of marked loss of height at the T12 burst fracture with retropulsion resulting in moderate spinal stenosis at the T12 level. This is associated with a mild paravertebral hematoma indicating an acute component. There is moderate spinal stenosis at L2-L3 and L3-L4 secondary to disc bulging with stable post operative findings at L4-L5. Dictated on workstation # [id number] Dict: 08/01/21 1222 Trans: 08/01/21 1229 [id number] Interpreted by: LIBERTAD PILLAI MD Electronically signed by: Comments [facility] [place] [place] NAME: GOPAL ISAACS [facility] REC#: [id number] PT STATUS: REG ER : 1955 PHYSICIAN: DEYANIRA HILL APRN ADMIT DATE: 08/01/21/ER Signed Date of Exam:08/01/21 CT HEAD WO-R/O STROKE EXAMINATION: CT head without contrast. TECHNIQUE: Multiple contiguous axial images were obtained through the brain without the use of intravenous contrast. All CT scans use one or more of the following dose optimizing techniques: automated exposure control, MA and/or KvP adjustment based on patient size and exam type or iterative reconstruction. HISTORY: Slurred speech. Difficulty walking. COMPARISON: 11/08/2020. FINDINGS: No large acute territorial ischemia, mass, or hemorrhage. No midline shift or mass effect. The ventricles, cortical sulci, and basilar cisterns are patent and unremarkable. The orbits are normal. Paranasal sinuses are normal. Mastoid air cells are clear. No soft tissue abnormality is seen. No osseus lesions or fractures are seen. IMPRESSION: 1. No large acute territorial ischemia, mass, or hemorrhage. If symptoms persist, consider MRI brain to further evaluate. Dictated by: Dictated on workstation # [id number] Dict: 08/01/21 1213 Trans: 08/01/21 1224 [id number] Interpreted by: JEFF GUTIERREZ DO Electronically signed by: JEFF GUTIERREZ DO 08/01/21 1224 Comments [facility] [place] NAME: GOPAL ISAACS [facility] REC#: [id number] PT STATUS: REG ER : 1955 PHYSICIAN: DEYANIRA HILL APRN ADMIT DATE: 08/01/21/ER Draft Date of Exam:08/01/21 CHEST 1 VIEW, AP/PA ONLY INDICATION: Cerebrovascular accident. Single AP view of the chest is obtained with comparison made to study of 12/16/2020. FINDINGS: Heart size and pulmonary vascularity are within normal limits, and the lungs are clear, bilaterally. IMPRESSION: Unremarkable chest. Dictated on workstation # [id number] Dict: 08/01/21 1159 Trans: 08/01/21 1201 [id number] Interpreted by: LIBERTAD PILLAI MD Electronically signed by: Departure Impression Primary Impression: Three column fracture of thoracic vertebra Additional Impressions: UTI (urinary tract infection) Fall on same level Disposition: 02 XFER SHT-TRM HOSP Condition: Stable Transfer Transfer Reason: Exceeds level of care Time Spoke to Accepting Phy: 14:[address] Tabares with Neurosurgery accepted transfer. Dr. Harris in ER accepted transfer. Transfer Time: 15:23 Transfer Facility: [facility] Method of Transfer: EMS Departure-Patient Inst. Referrals: [facility] (PCP) Primary Care Physician CATRACHITA MOLINA (Family) Primary Care Physician DEYANIRA HILL APRN August 01, 2021 11:19
[2021-08-01 11:20] VITALS: BP 134/91
[2021-08-01 11:47] LABS: BASOPHILS # (AUTO) 0.1 10^3/uL (0.0-0.1); BASOPHILS % (AUTO) 1 % (0-10); EOSINOPHILS # (AUTO) 0.4 10^3/uL (0.0-0.3); EOSINOPHILS % (AUTO) 3 % (0-10); HEMATOCRIT 40 % (35-52); HEMOGLOBIN 13.1 g/dL (11.5-16.0); LYMPHOCYTES # (AUTO) 1.9 10^3/uL (1.0-4.0); LYMPHOCYTES % (AUTO) 18 % (12-44); MEAN CORPUSCULAR HEMOGLOBIN 26 pg (25-34); MEAN CORPUSCULAR HGB CONC 33 g/dL (32-36); MEAN CORPUSCULAR VOLUME 80 fL (80-99); MEAN PLATELET VOLUME 10.2 fL (9.0-12.2); MONOCYTES # (AUTO) 0.7 10^3/uL (0.0-1.0); MONOCYTES % (AUTO) 6 % (0-12); NEUTROPHILS % (AUTO) 72 % (42-75); PLATELET COUNT 261 10^3/uL (130-400)
--- NOTE | 2021-08-01 12:01 | Diagnostic Imaging Report ---
INDICATION: Cerebrovascular accident. Single AP view of the chest is obtained with comparison made to study of 12/16/2020. FINDINGS: Heart size and pulmonary vascularity are within normal limits, and the lungs are clear, bilaterally. IMPRESSION: Unremarkable chest. Dictated by: Dictated on workstation # [id number]
[2021-08-01 12:12] LABS: ALBUMIN 3.7 GM/DL (3.2-4.5); CHLORIDE 103 MMOL/L (98-107); POTASSIUM 3.8 MMOL/L (3.6-5.0); SODIUM 138 MMOL/L (135-145)
[2021-08-01 12:13] LABS: CALCIUM 9.1 MG/DL (8.5-10.1)
[2021-08-01 12:14] LABS: GLUCOSE 129 MG/DL (70-105)
[2021-08-01 12:15] LABS: TOTAL PROTEIN 6.7 GM/DL (6.4-8.2)
[2021-08-01 12:16] LABS: BILIRUBIN,TOTAL 0.3 MG/DL (0.1-1.0); CARBON DIOXIDE 22 MMOL/L (21-32)
[2021-08-01 12:18] LABS: ALKALINE PHOSPHATASE 83 U/L (40-136); CREATININE SERUM 0.91 MG/DL (0.60-1.30); GFR ESTIMATED 70
[2021-08-01 12:18] LABS: BILIRUBIN,URINE NEGATIVE (NEGATIVE); CLARITY,URINE CLEAR; COLOR,URINE DARK YELLOW; GLUCOSE, URINE (UA) NEGATIVE (NEGATIVE); KETONES,URINE NEGATIVE (NEGATIVE); LEUKOCYTE ESTERASE ,URINE 2+ (NEGATIVE); NITRITE,URINE NEGATIVE (NEGATIVE); PROTEIN,URINE TRACE (NEGATIVE)
--- NOTE | 2021-08-01 12:18 | Diagnostic Imaging Report ---
EXAMINATION: CT head without contrast. TECHNIQUE: Multiple contiguous axial images were obtained through the brain without the use of intravenous contrast. All CT scans use one or more of the following dose optimizing techniques: automated exposure control, MA and/or KvP adjustment based on patient size and exam type or iterative reconstruction. HISTORY: Slurred speech. Difficulty walking. COMPARISON: 11/08/2020. FINDINGS: No large acute territorial ischemia, mass, or hemorrhage. No midline shift or mass effect. The ventricles, cortical sulci, and basilar cisterns are patent and unremarkable. The orbits are normal. Paranasal sinuses are normal. Mastoid air cells are clear. No soft tissue abnormality is seen. No osseus lesions or fractures are seen. IMPRESSION: 1. No large acute territorial ischemia, mass, or hemorrhage. If symptoms persist, consider MRI brain to further evaluate. Dictated by: Dictated on workstation # [id number]
[2021-08-01 12:19] LABS: BUN/CREATININE RATIO 11
[2021-08-01 12:19] LABS: BACTERIA,URINE MODERATE /HPF; WBC,URINE 50-100 /HPF
[2021-08-01 12:21] LABS: ALANINE AMINOTRANSFERASE 9 U/L (0-55); FIBRIN DEGRADATION PRODUCTS 0.65 UG/ML (0.00-0.49); INR 0.9 (0.8-1.4); PROTHROMBIN TIME PATIENT 12.9 SEC (12.2-14.7)
--- NOTE | 2021-08-01 12:30 | Diagnostic Imaging Report ---
PROCEDURE: CT lumbar spine without contrast. TECHNIQUE: Multiple contiguous axial images were obtained through the lumbar spine without the use of intravenous contrast. Sagittal and coronal reformations were then performed. Auto Exposure Controls were utilized during the CT exam to meet ALARA standards for radiation dose reduction. INDICATION: Low back pain and lower extremity weakness. COMPARISON: 11/01/2020. FINDINGS: There has been a significant adverse change with significant progression of the burst type fracture involving the T12 vertebral body. There is retropulsion resulting in moderate spinal stenosis at the T12 level. No definite extension of the fracture line is seen into the pedicles or posterior elements. Note is made of a mild paravertebral hematoma. Otherwise, the appearance of the lumbar spine has remained stable including grade 1 anterolisthesis of L3 on L4 and discectomy with posterior fusion at L4-L5. No other acute fracture or paraspinous hematoma is identified. Diffuse disc bulging at L2-L3 and L3-L4 results in moderate spinal stenoses. IMPRESSION: Progression of marked loss of height at the T12 burst fracture with retropulsion resulting in moderate spinal stenosis at the T12 level. This is associated with a mild paravertebral hematoma indicating an acute component. There is moderate spinal stenosis at L2-L3 and L3-L4 secondary to disc bulging with stable post operative findings at L4-L5. Dictated by: Dictated on workstation # [id number]
--- NOTE | 2021-08-01 14:41 | Diagnostic Imaging Report ---
PROCEDURE: CT thoracic spine without contrast. TECHNIQUE: Multiple axial computerized tomography images were obtained from the base of the thoracic spine to the vertex without intravenous contrast. Auto Exposure Controls were utilized during the CT exam to meet ALARA standards for radiation dose reduction. INDICATION: T12 fracture. Fall. COMPARISON: CT lumbar spine without contrast on 11/01/2020 and 08/01/2021. FINDINGS: The burst fracture of T12 resulting in approximately 90% height loss centrally and moderate retropulsion is stable compared to earlier today. This includes widening of the facet joints at T12-L1. Both the vertebral body height loss, retropulsion, and widening of the facet joints has progressed since 11/01/2020. The retropulsion results in jdzh-nr-weaqeyfm spinal canal stenosis. The thoracic vertebral body heights are otherwise preserved. No other fracture is identified. No high-grade spinal canal stenosis is evident by noncontrast CT. Calcified left hilar lymph nodes. Calcified granulomas in the spleen. Partially visualized post operative changes in the stomach. No acute findings in the visualized paravertebral soft tissues. IMPRESSION: Unstable 3 column fracture of T12 results in approximately 90% height loss centrally, moderate retropulsion, and widening of the facet joints. Each of these fracture components has progressed since 11/01/2020. Recommend neurosurgical consultation. Findings were discussed with Deyanira Pepe APRN, at 2:35 PM on 08/01/2021. Dictated by: Dictated on workstation # [id number]
[2021-08-01] MEDS ORDERED: cefTRIAXone 1 GM PRE-MIX 50 ML IV ONE ×2 (14:59→15:00)
== END 2021-08-01 15:56 | disposition short-term general hospital (02) ==
LOC: EDUNIT# 10:48 → ER 10:50
DX: S22.082A Unstable burst fracture of T11-T12 vertebra, initial encounter for closed fracture (principal); M48.061 Spinal stenosis, lumbar region without neurogenic claudication; N39.0 Urinary tract infection, site not specified; E11.9 Type 2 diabetes mellitus without complications; Z79.4 Long term (current) use of insulin; W18.30XA Fall on same level, unspecified, initial encounter
CPT/HCPCS: 36415; 70450; 71045; 72128; 72131; 80053; 81000; 82947; 84484; 85025; 85379; 85610; 85730; 87088; 93005; 93041

== ENCOUNTER 2021-09-14 11:06 | Emergency (ER) | payer MEDICARE ==
[~2021-09-14] VITALS: Ht 160 cm; Wt 62.7 kg
--- NOTE | 2021-09-14 11:20 | ED General ---
General Stated Complaint: BACK PAIN Source of Information: Patient Exam Limitations: No Limitations History of Present Illness Date Seen by Provider: Sep 14, 2021 Time Seen by Provider: 11:14 Initial Comments This is a well-appearing 65-year-old female who presented to the ER via [facility] for concerns of temperature 102 at home. Patient states that she had a recent back surgery at [place] in [facility] and was rehabilitated at [facility] in [place]. She has been receiving care from home health and they sent her to the emergency department to be evaluated for a temperature of 102 today and concerns for an infection. Patient states that she feels weak and a little off balance but is not having any other symptoms. She denies cough, chest pain, chills, nausea, vomiting, abdominal pain, dysuria, hematuria. Allergies and Home Medications Allergies Coded Allergies: lisinopril (Unverified Adverse Reaction, Intermediate, Cough, 11/10/20) Listed on medical record from PCP's office. morphine (Unverified Adverse Reaction, Mild, CONFUSION, 12/20/20) Patient Home Medication List Home Medication List Reviewed: Yes Amitriptyline HCl (Amitriptyline HCl) 100 Mg Tablet, 100 MG PO HS, (Reported) Entered as Reported by: DEEJAY BRUMFIELD on 11/09/20 1448 Amlodipine Besylate (Amlodipine Besylate) 5 Mg Tablet, 5 MG PO DAILY Prescribed by: KATELYNN VÁZQUEZ on 12/21/201006 Aspirin (Aspirin EC) 81 Mg Tablet.dr, 81 MG PO DAILY, (Reported) Entered as Reported by: JULIAN MARTINEZ on 10/24/18 1352 Calcium Carbonate (Calcium) 600 Mg Tablet, 600 MG PO DAILY, (Reported) Entered as Reported by: DEEJAY BRUMFIELD on 11/09/20 1448 Carvedilol (Carvedilol) 3.125 Mg Tablet, 3.125 MG PO BID Prescribed by: KATELYNN VÁZQUEZ on 12/21/201006 Cephalexin (Cephalexin) 500 Mg Capsule, 500 MG PO QID Prescribed by: KATELYNN VÁZQUEZ on 12/21/201006 Clonazepam (Clonazepam) 0.5 Mg Tablet, 0.25 MG PO HS Prescribed by: KATELYNN VÁZQUEZ on 12/21/201006 Cyclobenzaprine HCl (Cyclobenzaprine HCl) 10 Mg Tablet, 10 MG PO BID PRN for MUSCLE SPASMS, (Reported) Entered as Reported by: DEEJAY BRUMFIELD on 11/09/20 1448 Diclofenac Sodium (Diclofenac Sodium) 100 Gm Gel..gram., 100 GM TP TID PRN for PAIN-MILD (1-4), (Reported) Entered as Reported by: AFSANEH QUINONES on 12/19/20 1013 Famotidine (Famotidine) 20 Mg Tablet, 20 MG PO DAILY Prescribed by: KATELYNN VÁZQUEZ on 12/21/20 1007 Gabapentin (Neurontin) 300 Mg Capsule, 300 MG PO TID, (Reported) Entered as Reported by: DEEJAY BRUMFIELD on 11/09/20 1448 Hydrocodone/Acetaminophen (Hydrocodone-Acetamin 7.5-325) 1 Each Tablet, 1 EACH PO Q4H PRN for PAIN-MODERATE (5-7) Prescribed by: KATELYNN VÁZQUEZ on 12/21/201006 Insulin Aspart (Novolog) 100 Unit/1 Ml Susp, 0 UNIT SC ACHS Prescribed by: KATELYNN VÁZQUEZ on 12/21/201006 Insulin Determir (Levemir) 1,000 Units/10 Ml Soln, 30 UNITS SQ DAILY PRN for BLOOD GLUCOSE OVER 150, (Reported) Entered as Reported by: AFSANEH QUINONES on 12/19/20 1016 Liraglutide (Victoza 3-Jn) 0.6 Mg/0.1 Ml Pen.injctr, 1.8 MG SC DAILY, (Reported) Entered as Reported by: JULIAN MARTINEZ on 10/24/18 1256 Losartan Potassium (Losartan Potassium) 50 Mg Tablet, 50 MG PO 1800, (Reported) Entered as Reported by: DEEJAY BRUMFIELD on 11/09/20 1448 Rosuvastatin Calcium (Rosuvastatin Calcium) 20 Mg Tablet, 20 MG PO HS Prescribed by: KATELYNN VÁZQUEZ on 12/21/201006 Ticagrelor (Brilinta) 90 Mg Tablet, 90 MG PO BID Prescribed by: KATELYNN VÁZQUEZ on 12/21/20 1007 Review of Systems Review of Systems Constitutional: fever, weakness EENTM: no symptoms reported Respiratory: no symptoms reported Cardiovascular: no symptoms reported Gastrointestinal: no symptoms reported Genitourinary: no symptoms reported Musculoskeletal: no symptoms reported Skin: no symptoms reported Psychiatric/Neurological: No Symptoms Reported Hematologic/Lymphatic: No Symptoms Reported Immunological/Allergic: no symptoms reported Past Jrcscrb-Cbanxz-Cgykab Hx Immunizations Up To Date First/Initial COVID19 Vaccinat: May 10 2020 Second COVID19 Vaccination Hernando: June 11 2020 Third COVID19 Vaccination Date: May 10 2020 Past Medical History Surgery/Hospitalization HX: sx: gastric bypass, gallbladder, hyst, ovarian cyst removal, appendectomy, disc surgery pmh: dm, htn, chronic pain. 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 0.6oz. 84.704158cl; 25.00 BMI Method:Stated General Appearance: No Apparent Distress, WD/WN Eyes: Bilateral Eye Normal Inspection, Bilateral Eye PERRL, Bilateral Eye EOMI HEENT: PERRL/EOMI, Normal ENT Inspection, Pharynx Normal, Moist Mucous Membranes Neck: Full Range of Motion, Normal Inspection, Supple Respiratory: Lungs Clear, Normal Breath Sounds, No Accessory Muscle Use, No Respiratory Distress Cardiovascular: Regular Rate, Rhythm, No Murmur Gastrointestinal: Normal Bowel Sounds, Non Tender, Soft Back: Normal Inspection; No No Vertebral Tenderness; Other (No erythema, swelling, drainage at lower thoracic incision site.) Extremity: Normal Capillary Refill, Normal Inspection, Normal Range of Motion Neurologic/Psychiatric: Alert, Oriented x3, No Motor/Sensory Deficits, Normal Mood/Affect Skin: Normal Color, Warm/Dry Focused Exam Lactate Level 09/14/21 11:15: Lactic Acid Level 1.18 Lactic Acid Level Laboratory Tests Test 09/14/21 11:15 Lactic Acid Level 1.18 MMOL/L (0.50-2.00) Progress/Results/Core Measures Suspected Sepsis SIRS Temperature: Pulse: Respiratory Rate: Laboratory Tests 09/14/21 11:15: White Blood Count 9.9 Blood Pressure / Mean: 09/14/21 11:15: Lactic Acid Level 1.18 Laboratory Tests 09/14/21 11:15: Creatinine 0.79, INR Comment 1.0, Platelet Count 306, Total Bilirubin 0.4 Results/Orders Lab Results Laboratory Tests Test 09/14/21 11:15 09/14/21 11:20 Range/Units White Blood Count 9.9 4.3-11.0 10^3/uL Red Blood Count 3.82 3.80-5.11 10^6/uL Hemoglobin 9.6 L 11.5-16.0 g/dL Hematocrit 30 L 35-52 % Mean Corpuscular Volume 79 L 80-99 fL Mean Corpuscular Hemoglobin 25 25-34 pg Mean Corpuscular Hemoglobin Concent 32 32-36 g/dL Red Cell Distribution Width 15.7 H 10.0-14.5 % Platelet Count 306 130-400 10^3/uL Mean Platelet Volume 10.1 9.0-12.2 fL Immature Granulocyte % (Auto) 0 % Neutrophils (%) (Auto) 73 42-75 % Lymphocytes (%) (Auto) 18 12-44 % Monocytes (%) (Auto) 7 0-12 % Eosinophils (%) (Auto) 2 0-10 % Basophils (%) (Auto) 1 0-10 % Neutrophils # (Auto) 7.2 1.8-7.8 10^3/uL Lymphocytes # (Auto) 1.8 1.0-4.0 10^3/uL Monocytes # (Auto) 0.7 0.0-1.0 10^3/uL Eosinophils # (Auto) 0.2 0.0-0.3 10^3/uL Basophils # (Auto) 0.1 0.0-0.1 10^3/uL Immature Granulocyte # (Auto) 0.0 0.0-0.1 10^3/uL Prothrombin Time 13.9 12.2-14.7 SEC INR Comment 1.0 0.8-1.4 Activated Partial Thromboplast Time 36 H 24-35 SEC Sodium Level 139 135-145 MMOL/L Potassium Level 3.2 L 3.6-5.0 MMOL/L Chloride Level 107 98-107 MMOL/L Carbon Dioxide Level 21 21-32 MMOL/L Anion Gap 11 5-14 MMOL/L Blood Urea Nitrogen 12 7-18 MG/DL Creatinine 0.79 0.60-1.30 MG/DL Estimat Glomerular Filtration Rate 82 BUN/Creatinine Ratio 15 Glucose Level 62 L 70-105 MG/DL Lactic Acid Level 1.18 0.50-2.00 MMOL/L Calcium Level 8.8 8.5-10.1 MG/DL Corrected Calcium 9.3 8.5-10.1 MG/DL Total Bilirubin 0.4 0.1-1.0 MG/DL Aspartate Amino Transf (AST/SGOT) 15 5-34 U/L Alanine Aminotransferase (ALT/SGPT) 8 0-55 U/L Alkaline Phosphatase 109 40-136 U/L Total Protein 6.3 L 6.4-8.2 GM/DL Albumin 3.4 3.2-4.5 GM/DL Influenza Type A (RT-PCR) Not Detected Not Detecte Influenza Type B (RT-PCR) Not Detected Not Detecte SARS-CoV-2 RNA (RT-PCR) Not Detected Not Detecte My Orders Orders - JENNIFER HILL APRN Cbc With Automated Diff (09/14/21 11:17) Comprehensive Metabolic Panel (09/14/21 11:17) Blood Culture (09/14/21 11:17) Protime With Inr (09/14/21 11:17) Partial Thromboplastin Time (09/14/21 11:17) Chest 1 View, Ap/Pa Only (09/14/21 11:17) Ed Iv/Invasive Line Start (09/14/21 11:17) Vital Signs Adult Sepsis Patie Q15M (09/14/21 11:17) O2 (09/14/21 11:17) Remove Rings In Anticipation O (09/14/21 11:17) Lactic Acid Analyzer (09/14/21 11:17) Covid 19 Inhouse Test (09/14/21 11:17) Influenza A And B By Pcr (09/14/21 11:17) Vital Signs/I&O 09/14/21 09/14/21 11:08 13:29 Temp 37.3 37.3 Pulse 93 93 Resp 14 16 B/P (MAP) 127/73 (91) 100/87 Pulse Ox 93 96 O2 Delivery Room Air Room Air Capillary Refill : Progress Note : Progress Note Patient examined and in no acute distress. She had reported temperature of 102 via home health. upon arrival she has no complaints other than feeling some intermittent weakness. She is denying any back pain, fever, chills, pain at the incision site. Orders initiated for sepsis protocol with recent hospitalization. Labs reviewed and are relatively unremarkable. She declined stay for UA sample. States that she feels fine and would like to go ahead and discharge. No fever in ED. She is slightly anemic which may contribute to her fatigue and weakness. Will have her follow with her PCP and she can return to ER if she has any new, concerning, or worsening symptoms. She is agreeable with plan. Departure Impression Primary Impression: Fatigue Additional Impression: Anemia Disposition: 01 HOME, SELF-CARE Condition: Stable/Unchanged Departure-Patient Inst. Decision time for Depature: 13:22 Referrals: [facility] (PCP) Primary Care Physician CATRACHITA MOLINA (Family) Primary Care Physician Patient Instructions: Fatigue ED Add. Discharge Instructions: Plan: 1. Return for any new, concerning, or worsening symptoms. 2. Follow up with your doctor for persistent symptoms. JENNIFER HILL LIVE AMMUNITION INSPECTOR Sep 14, 2021 11:20
[2021-09-14 11:26] LABS: BASOPHILS # (AUTO) 0.1 10^3/uL (0.0-0.1); BASOPHILS % (AUTO) 1 % (0-10); EOSINOPHILS # (AUTO) 0.2 10^3/uL (0.0-0.3); EOSINOPHILS % (AUTO) 2 % (0-10); HEMATOCRIT 30 % (35-52); HEMOGLOBIN 9.6 g/dL (11.5-16.0); LYMPHOCYTES # (AUTO) 1.8 10^3/uL (1.0-4.0); LYMPHOCYTES % (AUTO) 18 % (12-44); MEAN CORPUSCULAR HEMOGLOBIN 25 pg (25-34); MEAN CORPUSCULAR HGB CONC 32 g/dL (32-36); MEAN CORPUSCULAR VOLUME 79 fL (80-99); MEAN PLATELET VOLUME 10.1 fL (9.0-12.2); MONOCYTES # (AUTO) 0.7 10^3/uL (0.0-1.0); MONOCYTES % (AUTO) 7 % (0-12); NEUTROPHILS # (AUTO) 7.2 10^3/uL (1.8-7.8); NEUTROPHILS % (AUTO) 73 % (42-75); PLATELET COUNT 306 10^3/uL (130-400); WHITE BLOOD COUNT 9.9 10^3/uL (4.3-11.0)
[2021-09-14 11:47] LABS: ALBUMIN 3.4 GM/DL (3.2-4.5)
[2021-09-14 11:48] LABS: POTASSIUM 3.2 MMOL/L (3.6-5.0); PROTHROMBIN TIME PATIENT 13.9 SEC (12.2-14.7)
[2021-09-14 11:49] LABS: CALCIUM 8.8 MG/DL (8.5-10.1)
[2021-09-14 11:50] LABS: TOTAL PROTEIN 6.3 GM/DL (6.4-8.2)
[2021-09-14 11:52] LABS: BILIRUBIN,TOTAL 0.4 MG/DL (0.1-1.0)
--- NOTE | 2021-09-14 11:52 | Diagnostic Imaging Report ---
CLINICAL INDICATION: Patient has fever. EXAM: Portable chest x-ray upright view. COMPARISON: Chest x-ray dated 08/01/2021. FINDINGS: Lungs/pleura: Lungs are clear. There is no pneumothorax. There is no pleural effusion. Mediastinum: Unremarkable. Pulmonary vasculature: Unremarkable. Heart: Unremarkable. Bones/extrathoracic soft tissue: There are hypertrophic spurs involving the spine. There is interval thoracolumbar posterior spinal fusion hardware. There are surgical clips involving both upper abdominal regions. IMPRESSION: There is no radiographic evidence of acute cardiopulmonary process. Dictated by: Dictated on workstation # [id number]
[2021-09-14 11:54] LABS: CREATININE SERUM 0.79 MG/DL (0.60-1.30)
[2021-09-14 13:29] VITALS: BP 100/87
== END 2021-09-14 13:31 | disposition home or self-care (01) ==
LOC: EDUNIT# 11:06 → ER 11:07
DX: D64.9 Anemia, unspecified (principal); M54.6 Pain in thoracic spine; E11.9 Type 2 diabetes mellitus without complications; Z79.4 Long term (current) use of insulin; Z20.822 Contact with and (suspected) exposure to COVID-19
CPT/HCPCS: 36415; 71045; 80053; 83605; 85025; 85610; 85730; 87040; 87636

== ENCOUNTER 2021-12-08 17:17 | Emergency (ER) | payer MEDICARE, MEDICAID ==
[~2021-12-08] VITALS: Ht 165 cm; Wt 59.0 kg
[2021-12-08] MEDS ORDERED: fentaNYL INJ 100 MCG/2 ML AMP IVP ONE (17:30)
--- NOTE | 2021-12-08 17:39 | ED Hip Pain/Injury ---
General Chief Complaint: Hip/Pelvic Problems Stated Complaint: FALL Nursing Triage Note: pt here per ems from [facility], states she has had left thigh pain for a couple weeks, fell today at 1645 and has had increased pain in her left thigh and hip Source: patient, EMS Exam Limitations: no limitations History of Present Illness Date Seen by Provider: Dec 08, 2021 Time Seen by Provider: 17:32 Initial Comments To ER by EMS from [facility] with c/o left hip pain after an unwitnessed fall at the long-term just prior to arrival. She states she did not hit her head. Timing/Duration: constant Severity: moderate Location: hip (L) Method of Injury: fell Modifying Factors: Worse With Movement Associated Symptoms: denies symptoms Allergies and Home Medications Allergies Coded Allergies: lisinopril (Unverified Adverse Reaction, Intermediate, Cough, 11/10/20) Listed on medical record from PCP's office. morphine (Unverified Adverse Reaction, Mild, CONFUSION, 12/20/20) Patient Home Medication List Home Medication List Reviewed: Yes Amitriptyline HCl (Amitriptyline HCl) 100 Mg Tablet, 100 MG PO HS, (Reported) Entered as Reported by: DEEJAY BRUMFIELD on 11/09/20 1448 Amlodipine Besylate (Amlodipine Besylate) 5 Mg Tablet, 5 MG PO DAILY Prescribed by: KATELYNN VÁZQUEZ on 12/21/201006 Aspirin (Aspirin EC) 81 Mg Tablet.dr, 81 MG PO DAILY, (Reported) Entered as Reported by: JULIAN MARTINEZ on 10/24/18 1352 Calcium Carbonate (Calcium) 600 Mg Tablet, 600 MG PO DAILY, (Reported) Entered as Reported by: DEEJAY BRUMFIELD on 11/09/20 1448 Carvedilol (Carvedilol) 3.125 Mg Tablet, 3.125 MG PO BID Prescribed by: KATELYNN VÁZQUEZ on 12/21/201006 Cephalexin (Cephalexin) 500 Mg Capsule, 500 MG PO QID Prescribed by: KATELYNN VÁZQUEZ on 12/21/20 1007 Clonazepam (Clonazepam) 0.5 Mg Tablet, 0.25 MG PO HS Prescribed by: KATELYNN VÁZQUEZ on 12/21/20 1007 Cyclobenzaprine HCl (Cyclobenzaprine HCl) 10 Mg Tablet, 10 MG PO BID PRN for MUSCLE SPASMS, (Reported) Entered as Reported by: DEEJAY BRUMFIELD on 11/09/20 1448 Diclofenac Sodium (Diclofenac Sodium) 100 Gm Gel..gram., 100 GM TP TID PRN for PAIN-MILD (1-4), (Reported) Entered as Reported by: AFSANEH QUINONES on 12/19/20 1013 Famotidine (Famotidine) 20 Mg Tablet, 20 MG PO DAILY Prescribed by: KATELYNN VÁZQUEZ on 12/21/20 1007 Gabapentin (Neurontin) 300 Mg Capsule, 300 MG PO TID, (Reported) Entered as Reported by: DEEJAY BRUMFIELD on 11/09/20 1448 Hydrocodone/Acetaminophen (Hydrocodone-Acetamin 7.5-325) 1 Each Tablet, 1 EACH PO Q4H PRN for PAIN-MODERATE (5-7) Prescribed by: KATELYNN VÁZQUEZ on 12/21/201006 Insulin Aspart (Novolog) 100 Unit/1 Ml Susp, 0 UNIT SC ACHS Prescribed by: KATELYNN VÁZQUEZ on 12/21/201006 Insulin Determir (Levemir) 1,000 Units/10 Ml Soln, 30 UNITS SQ DAILY PRN for BLOOD GLUCOSE OVER 150, (Reported) Entered as Reported by: AFSANEH QUINONES on 12/19/20 1016 Liraglutide (Victoza 3-Jn) 0.6 Mg/0.1 Ml Pen.injctr, 1.8 MG SC DAILY, (Reported) Entered as Reported by: JULIAN MARTINEZ on 10/24/18 1256 Losartan Potassium (Losartan Potassium) 50 Mg Tablet, 50 MG PO 1800, (Reported) Entered as Reported by: DEEJAY BRUMFIELD on 11/09/20 1448 Rosuvastatin Calcium (Rosuvastatin Calcium) 20 Mg Tablet, 20 MG PO HS Prescribed by: KATELYNN VÁZQUEZ on 12/21/20 1007 Ticagrelor (Brilinta) 90 Mg Tablet, 90 MG PO BID Prescribed by: KATELYNN VÁZQUEZ on 12/21/20 1007 Review of Systems Constitutional: see HPI EENTM: see HPI Respiratory: no symptoms reported Cardiovascular: no symptoms reported Genitourinary: no symptoms reported Musculoskeletal: see HPI, joint pain Skin: no symptoms reported Psychiatric/Neurological: No Symptoms Reported Past Enanlja-Chcfwx-Fipkyv Hx Immunizations Up To Date First/Initial COVID19 Vaccinat: UNKNOWN DATE Second COVID19 Vaccination Hernando: UNKNOWN DATE Third COVID19 Vaccination Date: UNKNOWN DATE Past Medical History Surgery/Hospitalization HX: sx: gastric bypass, gallbladder, hyst, ovarian cyst removal, appendectomy, disc surgery pmh: dm, htn, chronic pain. 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 0.6oz. 84.552875yr; 21.00 BMI Method:Stated General Appearance: No Apparent Distress, WD/WN Neck: Full Range of Motion, Normal Inspection Respiratory: No Accessory Muscle Use, No Respiratory Distress Gastrointestinal: Normal Bowel Sounds, Non Tender, Soft Extremity: Normal Capillary Refill, Normal Inspection, Other (limited left hip flexion, tenderness) Neurologic/Psychiatric: Alert, Oriented x3 Skin: Normal Color, Warm/Dry Progress/Results/Core Measures Results/Orders Lab Results Laboratory Tests Test 12/08/21 17:28 Range/Units White Blood Count 7.7 4.3-11.0 10^3/uL Red Blood Count 4.66 3.80-5.11 10^6/uL Hemoglobin 10.8 L 11.5-16.0 g/dL Hematocrit 35 35-52 % Mean Corpuscular Volume 75 L 80-99 fL Mean Corpuscular Hemoglobin 23 L 25-34 pg Mean Corpuscular Hemoglobin Concent 31 L 32-36 g/dL Red Cell Distribution Width 19.0 H 10.0-14.5 % Platelet Count 236 130-400 10^3/uL Mean Platelet Volume 10.6 9.0-12.2 fL Immature Granulocyte % (Auto) 0 % Neutrophils (%) (Auto) 71 42-75 % Lymphocytes (%) (Auto) 20 12-44 % Monocytes (%) (Auto) 6 0-12 % Eosinophils (%) (Auto) 3 0-10 % Basophils (%) (Auto) 0 0-10 % Neutrophils # (Auto) 5.4 1.8-7.8 10^3/uL Lymphocytes # (Auto) 1.5 1.0-4.0 10^3/uL Monocytes # (Auto) 0.5 0.0-1.0 10^3/uL Eosinophils # (Auto) 0.2 0.0-0.3 10^3/uL Basophils # (Auto) 0.0 0.0-0.1 10^3/uL Immature Granulocyte # (Auto) 0.0 0.0-0.1 10^3/uL My Orders Orders - RICK SAMPSON APRN Ed Iv/Invasive Line Start (12/08/21 17:25) Pelvis With Left Hip 2-3 Views (12/08/21 17:25) Fentanyl Inj (Sublimaze Injection) (12/08/21 17:30) Ct Extremity Lower Left Wo (12/08/21 17:50) Cbc With Automated Diff (12/08/21 17:55) Medications Given in ED Current Medications Medications Dose Ordered Sig/Edwar Route Start Time Stop Time Status Last Admin Dose Admin Fentanyl Citrate 50 mcg ONCE ONCE IVP 12/08/21 17:30 12/08/21 17:31 DC 12/08/21 17:33 50 MCG Vital Signs/I&O 12/08/21 17:19 Temp 36.5 Pulse 72 Resp 20 B/P (MAP) 138/68 (91) Pulse Ox 95 O2 Delivery Room Air Blood Pressure Mean: 91 Departure Communication (Admissions) IMPRESSION: 1. No acute fracture is seen in the left hip. 2. Soft tissue contusion or hematoma posterior and inferior to the ischial tuberosity, with surrounding subcutaneous edema. Dictated on workstation # [id number] Dict: 12/08/211810 Trans: 12/08/211816 [id number] [id number] Interpreted by: EMILIANA SANTOS MD Electronically signed by Impression Primary Impression: Contusion of hip Disposition: 01 HOME, SELF-CARE Condition: Stable Departure-Patient Inst. Decision time for Depature: 18:24 Referrals: [facility] (PCP/Family) Primary Care Physician Patient Instructions: Contusion (DC) RICK SAMPSON APRN Dec 08, 2021 17:39
--- NOTE | 2021-12-08 18:03 | Diagnostic Imaging Report ---
HISTORY: Fall, left hip pain. TECHNIQUE: Frontal view of the pelvis. Frontal and lateral views of the left hip. COMPARISON: None. FINDINGS: No acute fracture is seen in the pelvis or left hip. Alignment appears normal. Joint spaces are preserved. Phleboliths are seen in the pelvis. Multiple linear densities are seen in the pelvis, could represent suture material, but is indeterminate. There are surgical clips in the left pelvis and there is lumbar fusion hardware. IMPRESSION: 1. No acute osseous abnormality is seen in the left hip. Dictated by: Dictated on workstation # [id number]
[2021-12-08 18:04] LABS: BASOPHILS % (AUTO) 0 % (0-10); EOSINOPHILS # (AUTO) 0.2 10^3/uL (0.0-0.3); EOSINOPHILS % (AUTO) 3 % (0-10); HEMATOCRIT 35 % (35-52); HEMOGLOBIN 10.8 g/dL (11.5-16.0); LYMPHOCYTES # (AUTO) 1.5 10^3/uL (1.0-4.0); LYMPHOCYTES % (AUTO) 20 % (12-44); MEAN CORPUSCULAR HEMOGLOBIN 23 pg (25-34); MEAN CORPUSCULAR HGB CONC 31 g/dL (32-36); MEAN CORPUSCULAR VOLUME 75 fL (80-99); MEAN PLATELET VOLUME 10.6 fL (9.0-12.2); MONOCYTES # (AUTO) 0.5 10^3/uL (0.0-1.0); MONOCYTES % (AUTO) 6 % (0-12); NEUTROPHILS # (AUTO) 5.4 10^3/uL (1.8-7.8); NEUTROPHILS % (AUTO) 71 % (42-75); PLATELET COUNT 236 10^3/uL (130-400); WHITE BLOOD COUNT 7.7 10^3/uL (4.3-11.0)
[2021-12-08 18:09] LABS: ALBUMIN 3.8 GM/DL (3.2-4.5); POTASSIUM 3.2 MMOL/L (3.6-5.0)
[2021-12-08 18:10] LABS: CALCIUM 9.1 MG/DL (8.5-10.1)
[2021-12-08 18:13] LABS: BILIRUBIN,TOTAL 0.3 MG/DL (0.1-1.0)
[2021-12-08 18:15] LABS: CREATININE SERUM 0.79 MG/DL (0.60-1.30)
--- NOTE | 2021-12-08 18:18 | Diagnostic Imaging Report ---
PROCEDURE: CT left lower extremity without contrast. TECHNIQUE: Multiple contiguous axial images were obtained through the left lower extremity without the use of intravenous contrast. Sagittal and coronal reformations were then performed. Auto Exposure Controls were utilized during the CT exam to meet ALARA standards for radiation dose reduction. INDICATION: Left hip pain COMPARISON: Radiographs from the same day. FINDINGS: No acute fracture is seen about the left hip. Alignment is normal. There is mild degenerative change in the left hip joint. No significant joint effusion is seen. There is no focal muscular atrophy. There is mild subcutaneous edema about the lateral and posterior left hip. There is focal edema just distal and posterior to the ischial tuberosity as well, with soft tissue density measuring about 2.8 cm. This could be a soft tissue contusion with edema or possibly a small hematoma. No free fluid is seen in the left pelvis. There are postsurgical changes noted in the left iliac bone and in the lumbar spine. No hardware complication is seen on these images. IMPRESSION: 1. No acute fracture is seen in the left hip. 2. Soft tissue contusion or hematoma posterior and inferior to the ischial tuberosity, with surrounding subcutaneous edema. Dictated by: Dictated on workstation # [id number]
[2021-12-08 18:45] VITALS: BP 159/86
== END 2021-12-08 19:11 | disposition home or self-care (01) ==
LOC: EDUNIT# 17:17 → ER 17:19
DX: S70.02XA Contusion of left hip, initial encounter (principal); E11.40 Type 2 diabetes mellitus with diabetic neuropathy, unspecified; Z79.4 Long term (current) use of insulin; W19.XXXA Unspecified fall, initial encounter; Y92.129 Unspecified place in nursing home as the place of occurrence of the external cause
CPT/HCPCS: 36415; 73700; 80053; 85025

== ENCOUNTER 2021-12-24 17:30 | Emergency (ER) | payer MEDICARE, MEDICAID ==
[~2021-12-24] VITALS: Ht 170 cm; Wt 59.0 kg
[2021-12-24 17:46] LABS: BASOPHILS % (AUTO) 0 % (0-10); EOSINOPHILS # (AUTO) 0.2 10^3/uL (0.0-0.3); EOSINOPHILS % (AUTO) 2 % (0-10); HEMATOCRIT 31 % (35-52); HEMOGLOBIN 9.8 g/dL (11.5-16.0); LYMPHOCYTES # (AUTO) 1.6 10^3/uL (1.0-4.0); LYMPHOCYTES % (AUTO) 16 % (12-44); MEAN CORPUSCULAR HEMOGLOBIN 24 pg (25-34); MEAN CORPUSCULAR HGB CONC 31 g/dL (32-36); MEAN CORPUSCULAR VOLUME 75 fL (80-99); MEAN PLATELET VOLUME 9.9 fL (9.0-12.2); MONOCYTES # (AUTO) 0.7 10^3/uL (0.0-1.0); MONOCYTES % (AUTO) 6 % (0-12); NEUTROPHILS % (AUTO) 76 % (42-75); PLATELET COUNT 222 10^3/uL (130-400); WHITE BLOOD COUNT 10.5 10^3/uL (4.3-11.0)
[2021-12-24 17:57] LABS: ALBUMIN 3.2 GM/DL (3.2-4.5); POTASSIUM 2.6 MMOL/L (3.6-5.0)
[2021-12-24 17:58] LABS: CALCIUM 8.5 MG/DL (8.5-10.1)
[2021-12-24 18:00] LABS: TOTAL PROTEIN 6.1 GM/DL (6.4-8.2)
[2021-12-24 18:01] LABS: BILIRUBIN,TOTAL 0.3 MG/DL (0.1-1.0)
[2021-12-24 18:03] LABS: CREATININE SERUM 0.75 MG/DL (0.60-1.30)
--- NOTE | 2021-12-24 19:13 | ED General ---
General Chief Complaint: Glucose Problems Stated Complaint: HYPOGLYCEMIA Nursing Triage Note: PT TO RM [address] [facility] WITH CC OF HYPOGLYCEMIA, GLUCOSE 31 ON ARRIVAL OF EMS, 10%DEXTROSE RUNNING ON ARRIVAL, GLUCOSE 87 AT 1736 History of Present Illness Date Seen by Provider: Dec 24, 2021 Time Seen by Provider: 17:35 Initial Comments Patient is a 66 yo F who presents to the ED via EMS from [facility] where she was found to be unresponsive and hypoglycemic with a BG of 31. Patient has a history of type 2 diabetes mellitus requiring insulin. She states her last dose of insulin was this AM. EMS had a dextrose infusion running at the time patient arrived. Patient is AAOx4 upon arrival. She states this has happened before. Denies any other symptoms. Allergies and Home Medications Allergies Coded Allergies: lisinopril (Unverified Adverse Reaction, Intermediate, Cough, 11/10/20) Listed on medical record from PCP's office. morphine (Unverified Adverse Reaction, Mild, CONFUSION, 12/20/20) Patient Home Medication List Home Medication List Reviewed: Yes Amitriptyline HCl (Amitriptyline HCl) 100 Mg Tablet, 100 MG PO HS, (Reported) Entered as Reported by: DEEJAY BRUMFIELD on 11/09/20 1448 Amlodipine Besylate (Amlodipine Besylate) 5 Mg Tablet, 5 MG PO DAILY Prescribed by: KATELYNN VÁZQUEZ on 12/21/201006 Aspirin (Aspirin EC) 81 Mg Tablet.dr, 81 MG PO DAILY, (Reported) Entered as Reported by: JULIAN MARTINEZ on 10/24/18 1352 Calcium Carbonate (Calcium) 600 Mg Tablet, 600 MG PO DAILY, (Reported) Entered as Reported by: DEEJAY BRUMFIELD on 11/09/20 1448 Carvedilol (Carvedilol) 3.125 Mg Tablet, 3.125 MG PO BID Prescribed by: KATELYNN VÁZQUEZ on 12/21/201006 Cephalexin (Cephalexin) 500 Mg Capsule, 500 MG PO QID Prescribed by: KATELYNN VÁZQUEZ on 12/21/201006 Clonazepam (Clonazepam) 0.5 Mg Tablet, 0.25 MG PO HS Prescribed by: KATELYNN VÁZQUEZ on 12/21/201006 Cyclobenzaprine HCl (Cyclobenzaprine HCl) 10 Mg Tablet, 10 MG PO BID PRN for MUSCLE SPASMS, (Reported) Entered as Reported by: DEEJAY BRUMFIELD on 11/09/20 1448 Diclofenac Sodium (Diclofenac Sodium) 100 Gm Gel..gram., 100 GM TP TID PRN for PAIN-MILD (1-4), (Reported) Entered as Reported by: AFSANEH QUINONES on 12/19/20 1013 Famotidine (Famotidine) 20 Mg Tablet, 20 MG PO DAILY Prescribed by: KATELYNN VÁZQUEZ on 12/21/20 1007 Gabapentin (Neurontin) 300 Mg Capsule, 300 MG PO TID, (Reported) Entered as Reported by: DEEJAY BRUMFIELD on 11/09/20 1448 Hydrocodone/Acetaminophen (Hydrocodone-Acetamin 7.5-325) 1 Each Tablet, 1 EACH PO Q4H PRN for PAIN-MODERATE (5-7) Prescribed by: KATELYNN VÁZQUEZ on 12/21/201006 Insulin Aspart (Novolog) 100 Unit/1 Ml Susp, 0 UNIT SC ACHS Prescribed by: KATELYNN VÁZQUEZ on 12/21/201006 Insulin Determir (Levemir) 1,000 Units/10 Ml Soln, 30 UNITS SQ DAILY PRN for BLOOD GLUCOSE OVER 150, (Reported) Entered as Reported by: AFSANEH QUINONES on 12/19/20 1016 Liraglutide (Victoza 3-Jn) 0.6 Mg/0.1 Ml Pen.injctr, 1.8 MG SC DAILY, (Reported) Entered as Reported by: JULIAN MARTINEZ on 10/24/18 1256 Losartan Potassium (Losartan Potassium) 50 Mg Tablet, 50 MG PO 1800, (Reported) Entered as Reported by: DEEJAY BRUMFIELD on 11/09/20 1448 Rosuvastatin Calcium (Rosuvastatin Calcium) 20 Mg Tablet, 20 MG PO HS Prescribed by: KATELYNN VÁZQUEZ on 12/21/201006 Ticagrelor (Brilinta) 90 Mg Tablet, 90 MG PO BID Prescribed by: KATELYNN VÁZQUEZ on 12/21/20 1007 Review of Systems Review of Systems Constitutional: see HPI EENTM: no symptoms reported Respiratory: no symptoms reported Cardiovascular: no symptoms reported Gastrointestinal: no symptoms reported Genitourinary: no symptoms reported Musculoskeletal: no symptoms reported Skin: no symptoms reported Psychiatric/Neurological: No Symptoms Reported Past Qvhlgpy-Ksvhot-Dzyqur Hx Patient Social History Tobacco Use?: Yes Tobacco type used: Cigarettes Smoking Status: Current Someday Smoker Substance use?: No Alcohol Use?: No Immunizations Up To Date First/Initial COVID19 Vaccinat: UNKNOWN DATE Second COVID19 Vaccination Hernando: UNKNOWN DATE Third COVID19 Vaccination Date: UNKNOWN DATE Past Medical History Surgery/Hospitalization HX: sx: gastric bypass, gallbladder, hyst, ovarian cyst removal, appendectomy, disc surgery pmh: dm, htn, chronic pain. Surgeries: Yes (GASTRIC BYPASS, BACK SX X 2) Abdominal, Appendectomy, Gallbladder, Hysterectomy, Orthopedic Respiratory: No Cardiac: Yes Hypertension Neurological: Yes Neuropathy Reproductive Disorders: No [employer] History: Hysterectomy Genitourinary: Yes Bladder Infection Gastrointestinal: No Musculoskeletal: Yes (RESTLESS LEG SYNDROME) Back Injury, Chronic Back Pain Endocrine: Yes Diabetes, Insulin dep HEENT: Yes (GLASSES) Cancer: No Psychosocial: Yes Sleep Difficulties, Anxiety, Depression Integumentary: No Blood Disorders: Yes (ANEMIA) Family Medical History Cancer, Diabetes, Stroke Physical Exam Vital Signs Vital Signs - First Documented 12/24/21 17:33 Temp 36.4 Pulse 79 Resp 18 B/P (MAP) 127/65 (85) Pulse Ox 96 O2 Delivery Room Air Capillary Refill : Less Than 3 Seconds Height, Weight, BMI Height: 5'5.00" Weight: 187lbs. 0.6oz. [id number]; 20.00 BMI Method:Stated General Appearance: No Apparent Distress, WD/WN HEENT: PERRL/EOMI, TMs Normal, Normal ENT Inspection, Pharynx Normal Neck: Full Range of Motion, Normal Inspection, Non Tender, Supple Respiratory: Chest Non Tender, Lungs Clear, Normal Breath Sounds, No Accessory Muscle Use, No Respiratory Distress Cardiovascular: Regular Rate, Rhythm Gastrointestinal: Normal Bowel Sounds, Non Tender, Soft Extremity: Normal Capillary Refill, Normal Inspection Neurologic/Psychiatric: Alert, Oriented x3 Skin: Normal Color, Warm/Dry Progress/Results/Core Measures Suspected Sepsis SIRS Temperature: Pulse: 79 Respiratory Rate: 18 Laboratory Tests 12/24/21 17:40: White Blood Count 10.5 Blood Pressure 127 /65 Mean: 85 Laboratory Tests 12/24/21 17:40: Creatinine 0.75, Platelet Count 222, Total Bilirubin 0.3 Results/Orders Lab Results Laboratory Tests Test 12/24/21 17:36 12/24/21 17:40 12/24/21 19:08 Range/Units Glucometer 87 151 H 70-110 MG/DL White Blood Count 10.5 4.3-11.0 10^3/uL Red Blood Count 4.17 3.80-5.11 10^6/uL Hemoglobin 9.8 L 11.5-16.0 g/dL Hematocrit 31 L 35-52 % Mean Corpuscular Volume 75 L 80-99 fL Mean Corpuscular Hemoglobin 24 L 25-34 pg Mean Corpuscular Hemoglobin Concent 31 L 32-36 g/dL Red Cell Distribution Width 19.3 H 10.0-14.5 % Platelet Count 222 130-400 10^3/uL Mean Platelet Volume 9.9 9.0-12.2 fL Immature Granulocyte % (Auto) 0 % Neutrophils (%) (Auto) 76 H 42-75 % Lymphocytes (%) (Auto) 16 12-44 % Monocytes (%) (Auto) 6 0-12 % Eosinophils (%) (Auto) 2 0-10 % Basophils (%) (Auto) 0 0-10 % Neutrophils # (Auto) 8.0 H 1.8-7.8 10^3/uL Lymphocytes # (Auto) 1.6 1.0-4.0 10^3/uL Monocytes # (Auto) 0.7 0.0-1.0 10^3/uL Eosinophils # (Auto) 0.2 0.0-0.3 10^3/uL Basophils # (Auto) 0.0 0.0-0.1 10^3/uL Immature Granulocyte # (Auto) 0.0 0.0-0.1 10^3/uL Sodium Level 137 135-145 MMOL/L Potassium Level 2.6 L 3.6-5.0 MMOL/L Chloride Level 102 98-107 MMOL/L Carbon Dioxide Level 25 21-32 MMOL/L Anion Gap 10 5-14 MMOL/L Blood Urea Nitrogen 27 H 7-18 MG/DL Creatinine 0.75 0.60-1.30 MG/DL Estimat Glomerular Filtration Rate 87 BUN/Creatinine Ratio 36 Glucose Level 86 70-105 MG/DL Calcium Level 8.5 8.5-10.1 MG/DL Corrected Calcium 9.1 8.5-10.1 MG/DL Total Bilirubin 0.3 0.1-1.0 MG/DL Aspartate Amino Transf (AST/SGOT) 19 5-34 U/L Alanine Aminotransferase (ALT/SGPT) 10 0-55 U/L Alkaline Phosphatase 89 40-136 U/L Total Protein 6.1 L 6.4-8.2 GM/DL Albumin 3.2 3.2-4.5 GM/DL My Orders Orders - 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 Cbc With Automated Diff (12/24/21 17:40) Comprehensive Metabolic Panel (12/24/21 17:40) Iv/Invasive Line Insertion .IV INSERT (12/24/21 17:40) Accucheck Stat ONCE (12/24/21 21:09) Accucheck Stat ONCE (12/24/21 21:09) Vital Signs/I&O 12/24/21 12/24/21 17:33 19:20 Temp 36.4 36.4 Pulse 79 72 Resp 18 16 B/P (MAP) 127/65 (85) 122/62 Pulse Ox 96 97 O2 Delivery Room Air Room Air Capillary Refill : Less Than 3 Seconds Blood Pressure Mean: 85 Point of Care Testing Finger Stick Blood Glucose: 151 Blood Glucose Action Taken: JOY INFORMED Progress Note : Progress Note Patient is nontoxic and well-hydrated on exam. She is awake alert and oriented x4 and answers all questions appropriately. Initial blood glucose here is within normal limits. Patient states she feels completely normal. She states this is happened multiple times in the past. Patient was given a sandwich to eat and some soda to drink. The dextrose infusion was turned off and an hour later a blood glucose was checked which was still within normal limits. Patient is requesting discharge back to the [facility] facility. This seems appropriate at this time. Laboratory evaluation otherwise was unremarkable. Return precautions are to symptomology discussed. Patient verbalized understanding. Departure Impression Primary Impression: Hypoglycemia Disposition: HOME, SELF-CARE Condition: Improved Departure-Patient Inst. Referrals: [facility] (PCP/Family) Primary Care Physician Patient Instructions: Low Blood Sugar in People With Diabetes JOY GUSMAN APRN Dec 24, 2021 19:13
[2021-12-24 19:20] VITALS: BP 122/62
== END 2021-12-24 19:20 | disposition home or self-care (01) ==
LOC: EDUNIT# 17:30 → ER 17:31
DX: E11.649 Type 2 diabetes mellitus with hypoglycemia without coma (principal); E11.40 Type 2 diabetes mellitus with diabetic neuropathy, unspecified; F17.210 Nicotine dependence, cigarettes, uncomplicated; Z79.4 Long term (current) use of insulin
CPT/HCPCS: 36415; 80053; 82947; 85025

== ENCOUNTER 2022-02-24 01:34 | Emergency (ER) | payer MEDICARE, MEDICAID ==
[2022-02-24] MEDS ORDERED: fentaNYL INJ 100 MCG/2 ML AMP IM ONE (01:45)
--- NOTE | 2022-02-24 05:17 | ED Fall/Injury ---
General Chief Complaint: Trauma-Non Activation Stated Complaint: LEFT HIP PAIN,FALL Nursing Triage Note: TO ED VIA [facility] FROM [facility] TO ROOM 3. EMS REPORTS FALL APPROX 1H [facility] AND PT WALKED AFTERWARDS. NO REPORT RECEIVED FROM HOME MAL[facility]TER. PT MOANING ON ARRIVAL TO ER. Source: patient, EMS Exam Limitations: no limitations (RACHELE BLACKWELL MD) History of Present Illness Date Seen by Provider: Feb 24, 2022 Time Seen by Provider: 01:36 Initial Comments This 66-year-old woman presents to the emergency room with primary complaint of left hip pain after sliding out of her chair and falling at the residential. She denies any other injury such as head injury or neck pain. She is alert and talkative. She states this pain is a chronic pain but is worse after this incident. She later comments that she was recently started on a new antidepressant. Her residential chart notes Pristiq was started on February 22. (RACHELE BLACKWELL MD) Allergies and Home Medications Allergies Coded Allergies: lisinopril (Unverified Adverse Reaction, Intermediate, Cough, 11/10/20) Listed on medical record from PCP's office. morphine (Unverified Adverse Reaction, Mild, CONFUSION, 12/20/20) Patient Home Medication List Home Medication List Reviewed: Yes (RACHELE BLACKWELL MD) Amitriptyline HCl (Amitriptyline HCl) 100 Mg Tablet, 100 MG PO HS, (Reported) Entered as Reported by: DEEJAY BRUMFIELD on 11/09/20 1448 Amlodipine Besylate (Amlodipine Besylate) 5 Mg Tablet, 5 MG PO DAILY Prescribed by: KATELYNN VÁZQUEZ on 12/21/20 1007 Aspirin (Aspirin EC) 81 Mg Tablet.dr, 81 MG PO DAILY, (Reported) Entered as Reported by: JULIAN MARTINEZ on 10/24/18 1352 Calcium Carbonate (Calcium) 600 Mg Tablet, 600 MG PO DAILY, (Reported) Entered as Reported by: DEEJAY BRUMFIELD on 11/09/20 1448 Carvedilol (Carvedilol) 3.125 Mg Tablet, 3.125 MG PO BID Prescribed by: KATELYNN VÁZUQEZ on 12/21/20 1007 Cephalexin (Cephalexin) 500 Mg Capsule, 500 MG PO QID Prescribed by: KATELYNN VÁZQUEZ on 12/21/201006 Clonazepam (Clonazepam) 0.5 Mg Tablet, 0.25 MG PO HS Prescribed by: KATELYNN VÁZQUEZ on 12/21/201006 Cyclobenzaprine HCl (Cyclobenzaprine HCl) 10 Mg Tablet, 10 MG PO BID PRN for MUSCLE SPASMS, (Reported) Entered as Reported by: DEEJAY BRUMFIELD on 11/09/20 1448 Diclofenac Sodium (Diclofenac Sodium) 100 Gm Gel..gram., 100 GM TP TID PRN for PAIN-MILD (1-4), (Reported) Entered as Reported by: AFSANEH QUINONES on 12/19/20 1013 Famotidine (Famotidine) 20 Mg Tablet, 20 MG PO DAILY Prescribed by: KATELYNN VÁZQUEZ on 12/21/201006 Gabapentin (Neurontin) 300 Mg Capsule, 300 MG PO TID, (Reported) Entered as Reported by: DEEJAY BRUMFIELD on 11/09/20 1448 Hydrocodone/Acetaminophen (Hydrocodone-Acetamin 7.5-325) 1 Each Tablet, 1 EACH PO Q4H PRN for PAIN-MODERATE (5-7) Prescribed by: KATELYNN VÁZQUEZ on 12/21/201006 Insulin Aspart (Novolog) 100 Unit/1 Ml Susp, 0 UNIT SC ACHS Prescribed by: KATELYNN VÁZQUEZ on 12/21/201006 Insulin Determir (Levemir) 1,000 Units/10 Ml Soln, 30 UNITS SQ DAILY PRN for BLOOD GLUCOSE OVER 150, (Reported) Entered as Reported by: AFSANEH QUINONES on 12/19/20 1016 Liraglutide (Victoza 3-Jn) 0.6 Mg/0.1 Ml Pen.injctr, 1.8 MG SC DAILY, (Reported) Entered as Reported by: JULIAN MARTINEZ on 10/24/18 1256 Losartan Potassium (Losartan Potassium) 50 Mg Tablet, 50 MG PO 1800, (Reported) Entered as Reported by: DEEJAY BRUMFIELD on 11/09/20 1448 Rosuvastatin Calcium (Rosuvastatin Calcium) 20 Mg Tablet, 20 MG PO HS Prescribed by: KATELYNN VÁZQUEZ on 12/21/201006 Ticagrelor (Brilinta) 90 Mg Tablet, 90 MG PO BID Prescribed by: KATELYNN VÁZQUEZ on 12/21/20 1007 Review of Systems Review of Systems Constitutional: no symptoms reported Eyes: No Symptoms Reported Ears, Nose, Mouth, Throat: no symptoms reported Respiratory: no symptoms reported Cardiovascular: no symptoms reported Gastrointestinal: no symptoms reported Genitourinary: no symptoms reported Musculoskeletal: see HPI Skin: no symptoms reported Psychiatric/Neurological: No Symptoms Reported (RACHELE BLACKWELL MD) Past Monqooo-Xiocyq-Vdifya Hx Patient Social History Tobacco Use?: No Use of E-Cig and/or Vaping dev: No Substance use?: No Alcohol Use?: No (RACHELE BLACKWELL MD) Immunizations Up To Date First/Initial COVID19 Vaccinat: UNKNOWN DATE Second COVID19 Vaccination Hernando: UNKNOWN DATE Third COVID19 Vaccination Date: UNKNOWN DATE (RACHELE BLACKWELL MD) Past Medical History Surgery/Hospitalization HX: sx: gastric bypass, gallbladder, hyst, ovarian cyst removal, appendectomy, disc surgery pmh: dm, htn, chronic pain. Surgeries: Yes (GASTRIC BYPASS, BACK SX X 2) Abdominal, Appendectomy, Gallbladder, Hysterectomy, Orthopedic Respiratory: No Cardiac: Yes Hypertension Neurological: Yes Neuropathy Reproductive Disorders: No [employer] History: Hysterectomy Genitourinary: Yes Bladder Infection Gastrointestinal: No Musculoskeletal: Yes (RESTLESS LEG SYNDROME) Back Injury, Chronic Back Pain Endocrine: Yes Diabetes, Insulin dep HEENT: Yes (GLASSES) Cancer: No Psychosocial: Yes Sleep Difficulties, Anxiety, Depression Integumentary: No Blood Disorders: Yes (ANEMIA) (RACHELE BLACKWELL MD) Family Medical History Cancer, Diabetes, Stroke (RACHELE BLACKWELL MD) Physical Exam Vital Signs Vital Signs - First Documented 02/24/22 02/24/22 01:35 02:15 Pulse 84 Resp 22 B/P (MAP) 166/92 (116) Pulse Ox 97 O2 Delivery Room Air O2 Flow Rate 2.00 (MARTÍNEZ MENG MD) Vital Signs Capillary Refill : Less Than 3 Seconds (RACHELE BLACKWELL MD) Height, Weight, BMI Height: 5'5.00" Weight: 187lbs. 0.6oz. [id number]; 20.00 BMI Method:Stated General Appearance: WD/WN, moderate distress HEENT: normal ENT inspection Neck: non-tender, normal inspection Cardiovascular: regular rate, rhythm, no edema, no murmur Respiratory: lungs clear, normal breath sounds, no respiratory distress Gastrointestinal: non tender, soft Extremities: normal inspection, no pedal edema, other (Tenderness to the left hip with direct palpation. No tenderness over the hip joint. No pain with rotation of the hip) Neurologic/Psychiatric: no motor/sensory deficits, alert, normal mood/affect, other (Somnolent but alert and conversational) Skin: normal color, warm/dry (RACHELE BLACKWELL MD) Progress/Results/Core Measures Results/Orders Lab Results Laboratory Tests Test 02/24/22 01:42 02/24/22 04:59 02/24/22 05:30 02/24/22 07:07 Range/Units Glucometer 162 H 116 H 70-110 MG/DL White Blood Count 9.1 4.3-11.0 10^3/uL Red Blood Count 4.83 3.80-5.11 10^6/uL Hemoglobin 12.4 11.5-16.0 g/dL Hematocrit 38 35-52 % Mean Corpuscular Volume 78 L 80-99 fL Mean Corpuscular Hemoglobin 26 25-34 pg Mean Corpuscular Hemoglobin Concent 33 32-36 g/dL Red Cell Distribution Width 17.2 H 10.0-14.5 % Platelet Count 222 130-400 10^3/uL Mean Platelet Volume 10.1 9.0-12.2 fL Immature Granulocyte % (Auto) 0 % Neutrophils (%) (Auto) 68 42-75 % Lymphocytes (%) (Auto) 23 12-44 % Monocytes (%) (Auto) 6 0-12 % Eosinophils (%) (Auto) 3 0-10 % Basophils (%) (Auto) 0 0-10 % Neutrophils # (Auto) 6.2 1.8-7.8 10^3/uL Lymphocytes # (Auto) 2.1 1.0-4.0 10^3/uL Monocytes # (Auto) 0.5 0.0-1.0 10^3/uL Eosinophils # (Auto) 0.3 0.0-0.3 10^3/uL Basophils # (Auto) 0.0 0.0-0.1 10^3/uL Immature Granulocyte # (Auto) 0.0 0.0-0.1 10^3/uL Prothrombin Time 13.4 12.2-14.7 SEC INR Comment 1.0 0.8-1.4 Activated Partial Thromboplast Time 36 H 24-35 SEC Urine Color YELLOW Urine Clarity CLOUDY Urine pH >=9.0 5-9 Urine Specific [place] 1.010 L 1.016-1.022 Urine Protein 2+ H NEGATIVE Urine Glucose (UA) NEGATIVE NEGATIVE Urine Ketones NEGATIVE NEGATIVE Urine Nitrite NEGATIVE NEGATIVE Urine Bilirubin NEGATIVE NEGATIVE Urine Urobilinogen 0.2 < = 1.0 MG/DL Urine Leukocyte Esterase 3+ H NEGATIVE Urine RBC (Auto) NEGATIVE NEGATIVE Urine RBC NONE /HPF Urine WBC 2-5 /HPF Urine Squamous Epithelial Cells RARE /HPF Urine Crystals PRESENT H /LPF Urine Triple Phosphate Crystals MODERATE H /LPF Urine Bacteria LARGE H /HPF Urine Casts NONE /LPF Urine Mucus NEGATIVE /LPF Urine Culture Indicated YES Sodium Level 138 135-145 MMOL/L Potassium Level 3.4 L 3.6-5.0 MMOL/L Chloride Level 103 98-107 MMOL/L Carbon Dioxide Level 24 21-32 MMOL/L Anion Gap 11 5-14 MMOL/L Blood Urea Nitrogen 29 H 7-18 MG/DL Creatinine 0.81 0.60-1.30 MG/DL Estimat Glomerular Filtration Rate 80 BUN/Creatinine Ratio 36 Glucose Level 100 70-105 MG/DL Calcium Level 9.3 8.5-10.1 MG/DL Magnesium Level 1.7 1.6-2.4 MG/DL Lactic Acid Level 1.03 0.50-2.00 MMOL/L Total Bilirubin 0.4 0.1-1.0 MG/DL Direct Bilirubin 0.1 0.0-0.3 MG/DL Indirect Bilirubin 0.3 MG/DL Aspartate Amino Transf (AST/SGOT) 28 5-34 U/L Alanine Aminotransferase (ALT/SGPT) 13 0-55 U/L Alkaline Phosphatase 90 40-136 U/L Ammonia 25 11-32 UMOL/L Total Protein 7.0 6.4-8.2 GM/DL Albumin 3.5 3.2-4.5 GM/DL Test 02/24/22 07:33 Range/Units Blood Gas Puncture Site LT RADIAL Blood Gas Patient Temperature 36.3 Arterial Blood pH 7.41 7.37-7.43 Arterial Blood Partial Pressure CO2 42 35-45 MMHG Arterial Blood Partial Pressure O2 149 H 79-93 MMHG Arterial Blood HCO3 27 23-27 MMOL/L Arterial Blood Total CO2 27.9 21.0-31.0 MMOL/L Arterial Blood Oxygen Saturation 100 94-100 % Arterial Blood Base Excess 2.3 -2.5-2.5 MMOL/L Daniel Test YES-POS Blood Gas Ventilator Setting NO Blood Gas Inspired Oxygen 2L NC (MARTÍNEZ MENG MD) My Orders Orders - MARTÍNEZ MENG MD Arterial Blood Gas (02/24/22 07:11) (MARTÍNEZ MENG MD) Medications Given in ED Current Medications Medications Dose Ordered Sig/Edwar Route Start Time Stop Time Status Last Admin Dose Admin Fentanyl Citrate 50 mcg ONCE ONCE IM 02/24/22 01:45 02/24/22 01:46 DC 02/24/22 01:55 50 MCG (MARTÍNEZ MENG MD) Vital Signs/I&O 02/24/22 02/24/22 01:35 02:15 Pulse 84 Resp 22 B/P (MAP) 166/92 (116) Pulse Ox 97 O2 Delivery Room Air Nasal Cannula O2 Flow Rate 2.00 (MARTÍNEZ MENG MD) Blood Pressure Mean: 116 FSBG Bedside Testing Finger Stick Blood Glucose: 116 Blood Glucose Action Taken: DR. BLACKWELL NOTIFIED. (RACHELE BLACKWELL MD) Progress Progress Note #1: Time: 06:07 Progress Note Patient requested pain medication while awaiting x-rays. Fentanyl 50 mcg IM was administered. X-rays revealed no hip or pelvic fracture or dislocation. Patient became extremely somnolent with fentanyl. She also was mildly hypoxic and O2 was provided by nasal cannula. She was allowed time for the fentanyl effect to wear off. However, she was still extremely somnolent and very difficult to arouse. Further work-up with labs and CT of the head was then ordered. Patient comments that she recently started Pristiq and I suspect that this may be contributing to her sedation as she is already on multiple sedating medications. Blood work and multiple fingerstick blood sugars were unremarkable. UA and CT of the head are pending at this time. Progress Note #2: Time: 06:49 Progress Note Urinalysis is suggestive of urinary tract infection. Urine pH is very high and urine smelled like a ammonia. We are checking a serum ammonia level and now ob taining a septic work-up. Care is being transitioned to Dr. MENG at this time. (RACHELE BLACKWELL MD) Progress Note : Progress Note 0800: I did assume care of the patient earlier as noted above. We did obtain ABG as well as ammonia and lactic acid levels. All of those are within normal limits and ABG shows normal pH and no hypercarbia. Lactic acid is negative. Patient is talking much better now. She did relay story that she is seeing the pain management clinic on 28 February for her chronic back pain. She reports that she takes hydrocodone twice daily only. She thought that she was on the 7.5 hydrocodone's but her residential records show that she is on 5 mg hydrocodone's. She is requesting a dose of her pain medicine. We will go ahead and initiate 1 dose of hydrocodone 5/325 now and also initiate nitrofurantoin for urinary tract infection. She does have history of Enterococcus faecalis that is sensitive to nitrofurantoin. The crystals noted in urine may be associated with Proteus species infection and nitrofurantoin should cover that as well. At this point, patient deemed safe for discharge back to residential. Discharged back to residential with return precautions. Report given to residential by nursing staff. Patient does report her pharmacy is on Medicare and so we will send prescription there. (MARTÍNEZ MENG MD) Diagnostic Imaging Diagonstic Imaging: Xray Plain Films/CT/US/NM/MRI: pelvis, hip Comments Hip and pelvis x-rays viewed by me. Report not yet available. No acute abnormalities were appreciated. Radiologist report is pending. Diagonstic Imaging: CT Plain Films/CT/US/NM/MRI: head Comments CT head viewed by me and report reviewed. See report below: NAME: GOP[facility] REC#: [id number] PT STATUS: REG ER : 1955 PHYSICIAN: RACHELE BLACKWELL MD ADMIT DATE: 02/24/22/ER Draft Date of Exam:02/24/22 CT HEAD WO CLINICAL INDICATION: Patient with Exam: Axial CT scan of the brain without IV contrast with coronal and sagittal reformatted images. Auto Exposure Controls were utilized during the CT exam to meet ALARA standards for radiation dose reduction. Comparison: Head CT without contrast dated 08/01/2021. Findings: There is no evidence of acute cerebral infarct, intracranial hemorrhage, or gross mass effect. The brain parenchymal volume appears appropriate for patient's age. Mild chronic small vessel ischemic disease is again seen. There is normal licea-white matter distinction. There is no significant midline shift or herniation. There is no evidence of hydrocephalus. The basal cisterns are unremarkable. The skull, extracranial soft tissue, and orbits are unremarkable. The paranasal sinuses are unremarkable. Temporal bones show no significant abnormality. Impression: 1: There is no evidence of acute intracranial process. There is no skull fracture. Dictated on workstation # [id number] Dict: 02/24/22 0641 Trans: 02/24/22 0702 [facility] [id number] Interpreted by: REINA SUGGS MD (RACHELE BLACKWELL MD) Focused Exam Lactate Level 02/24/22 07:07: Lactic Acid Level 1.03 (MARTÍNEZ MENG MD) Lactic Acid Level Laboratory Tests Test 02/24/22 07:07 Lactic Acid Level 1.03 MMOL/L (0.50-2.00) (MARTÍNEZ MENG MD) Departure Impression Primary Impression: Fall from chair Qualified Codes: W07.XXXA - Fall from chair, initial encounter Additional Impressions: Left hip pain Altered mental status Qualified Codes: R41.82 - Altered mental status, unspecified Urinary tract infection Qualified Codes: N30.00 - Acute cystitis without hematuria Disposition: HOME, SELF-CARE Condition: Stable Departure-Patient Inst. Decision time for Depature: 08:03 (MARTÍNEZ MENG MD) Referrals: [facility] (PCP/Family) Primary Care Physician Patient Instructions: Urinary Tract Infection, Adult (DC), Hip Pain, Altered Mental Status (DC) Add. Discharge Instructions: All discharge instructions reviewed with patient and/or family. Voiced understanding. Take medications as directed. Follow-up with your doctor this week for recheck and further evaluation. Continue with appointment to pain clinic as scheduled. Continue home medications as previously prescribed. Return for worse pain, fever, vomiting, weakness, breathing problems or other concerns as needed. Scripts Nitrofurantoin Macrocrystal (Nitrofurantoin) 100 Mg Capsule 100 MG PO BID for 5 Days, #10 CAP 0 Refills Prov: MARTÍNEZ MENG MD 02/24/22 RACHELE BLACKWELL MD Feb 24, 2022 05:16 MARTÍNEZ MENG MD Feb 24, 2022 08:05
[2022-02-24 05:44] LABS: BASOPHILS % (AUTO) 0 % (0-10); EOSINOPHILS # (AUTO) 0.3 10^3/uL (0.0-0.3); EOSINOPHILS % (AUTO) 3 % (0-10); HEMATOCRIT 38 % (35-52); HEMOGLOBIN 12.4 g/dL (11.5-16.0); LYMPHOCYTES # (AUTO) 2.1 10^3/uL (1.0-4.0); LYMPHOCYTES % (AUTO) 23 % (12-44); MEAN CORPUSCULAR HEMOGLOBIN 26 pg (25-34); MEAN CORPUSCULAR HGB CONC 33 g/dL (32-36); MEAN CORPUSCULAR VOLUME 78 fL (80-99); MEAN PLATELET VOLUME 10.1 fL (9.0-12.2); MONOCYTES # (AUTO) 0.5 10^3/uL (0.0-1.0); MONOCYTES % (AUTO) 6 % (0-12); NEUTROPHILS # (AUTO) 6.2 10^3/uL (1.8-7.8); NEUTROPHILS % (AUTO) 68 % (42-75); PLATELET COUNT 222 10^3/uL (130-400); WHITE BLOOD COUNT 9.1 10^3/uL (4.3-11.0)
[2022-02-24 05:45] LABS: BILIRUBIN,URINE NEGATIVE (NEGATIVE); CLARITY,URINE CLOUDY; COLOR,URINE YELLOW; GLUCOSE, URINE (UA) NEGATIVE (NEGATIVE); KETONES,URINE NEGATIVE (NEGATIVE); LEUKOCYTE ESTERASE ,URINE 3+ (NEGATIVE); NITRITE,URINE NEGATIVE (NEGATIVE); PH,URINE >=9.0 (5-9); PROTEIN,URINE 2+ (NEGATIVE)
[2022-02-24 05:59] LABS: POTASSIUM 3.4 MMOL/L (3.6-5.0)
[2022-02-24 06:00] LABS: CALCIUM 9.3 MG/DL (8.5-10.1)
[2022-02-24 06:04] LABS: CREATININE SERUM 0.81 MG/DL (0.60-1.30)
[2022-02-24 06:06] LABS: MAGNESIUM 1.7 MG/DL (1.6-2.4)
[2022-02-24 06:29] LABS: BACTERIA,URINE LARGE /HPF; SQUAMOUS EPITHELIAL CELL,UR RARE /HPF
[2022-02-24 06:30] LABS: TRIPLE PHOSPHATE CRYSTAL,UR MODERATE /LPF
--- NOTE | 2022-02-24 07:03 | Diagnostic Imaging Report ---
CLINICAL INDICATION: Patient with altered mental status Exam: Axial CT scan of the brain without IV contrast with coronal and sagittal reformatted images. Auto Exposure Controls were utilized during the CT exam to meet ALARA standards for radiation dose reduction. Comparison: Head CT without contrast dated 08/01/2021. Findings: There is no evidence of acute cerebral infarct, intracranial hemorrhage, or gross mass effect. The brain parenchymal volume appears appropriate for patient's age. Mild chronic small vessel ischemic disease is again seen. There is normal licea-white matter distinction. There is no significant midline shift or herniation. There is no evidence of hydrocephalus. The basal cisterns are unremarkable. The skull, extracranial soft tissue, and orbits are unremarkable. The paranasal sinuses are unremarkable. Temporal bones show no significant abnormality. Impression: 1: There is no evidence of acute intracranial process. There is no skull fracture. Dictated by: Dictated on workstation # [id number]
--- NOTE | 2022-02-24 07:13 | Diagnostic Imaging Report ---
INDICATION: Fall with pelvic and left hip pain TECHNIQUE: AP pelvis along with 2 views left hip, 1:46 AM CORRELATION STUDY: 12/08/2021 FINDINGS: Partial visualization of lower lumbar spinal fixation hardware. Multiple wire-like densities project over the sacrum, unchanged. Additional clips in the left hemipelvis. Pelvis is intact without evidence for acute displaced pelvic fracture. Pubic rami are maintained as is the pubic symphysis. Right hip unremarkable. Left hip demonstrates femoral head acetabular relationship to be maintained. Bony trabecular pattern is intact. IMPRESSION: Negative for acute fracture of the pelvis with attention to the left hip. Dictated by: Dictated on workstation # [id number]
--- NOTE | 2022-02-24 07:24 | Diagnostic Imaging Report ---
INDICATION: Hypoxia. TECHNIQUE: Single view chest 6:52 AM. CORRELATION STUDY: 09/14/2021 FINDINGS: The heart size, mediastinal configuration and pulmonary vascularity are within normal limits. The lungs are clear with no consolidating infiltrate. There is no significant effusion or pneumothorax. Multiple surgical clips left upper quadrant as well as right upper quadrant. Lumbar spinal fixation hardware partially visualized. IMPRESSION: 1. Negative appearing single view chest. Surgical changes upper abdomen. Dictated by: Dictated on workstation # [id number]
[2022-02-24 07:27] LABS: ALBUMIN 3.5 GM/DL (3.2-4.5)
[2022-02-24 07:29] LABS: PROTHROMBIN TIME PATIENT 13.4 SEC (12.2-14.7)
[2022-02-24 07:32] LABS: BILIRUBIN,TOTAL 0.4 MG/DL (0.1-1.0)
[2022-02-24 07:36] LABS: BILIRUBIN,DIRECT 0.1 MG/DL (0.0-0.3); BILIRUBIN,INDIRECT 0.3 MG/DL
[2022-02-24 07:44] LABS: ABG BASE EXCESS 2.3 MMOL/L (-2.5-2.5); ABG OXYGEN SATURATION 100 % (94-100); ABG PCO2 42 MMHG (35-45); ABG PH 7.41 (7.37-7.43); ABG PO2 149 MMHG (79-93); ABG TCO2 27.9 MMOL/L (21.0-31.0)
[2022-02-24 07:47] LABS: ALLENS TEST YES-POS; INSPIRED O2 2L NC; PATIENT TEMP 36.3; VENTILATOR NO
[2022-02-24] MEDS ORDERED: HYDROcodone/APAP 5 MG/325 MG (LORTAB) TAB PO ONE (08:00)
[2022-02-24] MEDS ORDERED: NITROFURANTOIN 100 MG (MACROBID) CAPSULE PO ONE (08:00)
[2022-02-24] MEDS ORDERED: NITR100C PO (08:06)
[2022-02-24 09:30] VITALS: BP 138/86
== END 2022-02-24 09:30 | disposition home or self-care (01) ==
LOC: EDUNIT# 01:34 → ER 01:36
DX: M25.552 Pain in left hip (principal); R41.82 Altered mental status, unspecified; N39.0 Urinary tract infection, site not specified; R09.02 Hypoxemia; F32.A Depression, unspecified; E11.9 Type 2 diabetes mellitus without complications; Z79.4 Long term (current) use of insulin; Z88.5 Allergy status to narcotic agent; W07.XXXA Fall from chair, initial encounter; Y92.129 Unspecified place in nursing home as the place of occurrence of the external cause
CPT/HCPCS: 36415; 70450; 71045; 80048; 80076; 81000; 82140; 82805; 82947; 83605; 83735; 85025; 85610; 85730; 87040; 87077; 87088; 87186

== ENCOUNTER 2022-12-30 16:30 | Inpatient (IN) | payer MEDICARE, MEDICAID ==
[~2022-12-30] VITALS: Ht 168 cm; Wt 70.8 kg
[~2022-12-30 16:30] MED LIST changes: -DICL100G13 TOP; -DICL100G13 TP; +DICL100G60 TOP; +DICL100G60 TP; -INSU100I29 SQ; +INSU100I30 SQ; -MECL-149 PO; +MECL-291 PO; -ROSU20TA32 PO; +ROSU20TA73 PO
[2022-12-30 17:02] LABS: BASOPHILS # (AUTO) 0.1 10^3/uL (0.0-0.1); BASOPHILS % (AUTO) 0 % (0-10); EOSINOPHILS % (AUTO) 0 % (0-10); HEMATOCRIT 33 % (35-52); LYMPHOCYTES # (AUTO) 0.6 10^3/uL (1.0-4.0); LYMPHOCYTES % (AUTO) 4 % (12-44); MEAN CORPUSCULAR HEMOGLOBIN 24 pg (25-34); MEAN CORPUSCULAR HGB CONC 31 g/dL (32-36); MEAN CORPUSCULAR VOLUME 77 fL (80-99); MONOCYTES # (AUTO) 0.8 10^3/uL (0.0-1.0); MONOCYTES % (AUTO) 5 % (0-12); NEUTROPHILS # (AUTO) 14.5 10^3/uL (1.8-7.8); NEUTROPHILS % (AUTO) 90 % (42-75); PLATELET COUNT 231 10^3/uL (130-400); WHITE BLOOD COUNT 16.1 10^3/uL (4.3-11.0)
[2022-12-30 17:08] LABS: ALBUMIN 3.6 GM/DL (3.2-4.5)
[2022-12-30 17:09] LABS: POTASSIUM 3.9 MMOL/L (3.6-5.0)
[2022-12-30 17:10] LABS: CALCIUM 8.8 MG/DL (8.5-10.1)
[2022-12-30 17:11] LABS: TOTAL PROTEIN 6.7 GM/DL (6.4-8.2)
[2022-12-30 17:13] LABS: BILIRUBIN,TOTAL 0.3 MG/DL (0.1-1.0)
[2022-12-30 17:15] LABS: CREATININE SERUM 0.91 MG/DL (0.60-1.30)
--- NOTE | 2022-12-30 17:20 | ED General ---
General Chief Complaint: Fever-Adult/Adol Stated Complaint: WEAKNESS Nursing Triage Note: PT ARRIVED PER EMS PT CO OF ALTERED MENTAL STATUS AND FEVER STARTING TODAY 103.4 FOR EMS. PT SAT DECREASED TO 83% ON RM AIR, PT HAS O2 ON @ 2L AND 93% SAT. PT SMELLS OF STRONG URINE AT THIS X. PT HAS SL IN R AC #20 BY EMS. PT IS AWAKE AND ALERT AT THIS X. Source of Information: Patient Exam Limitations: No Limitations History of Present Illness Date Seen by Provider: Dec 30, 2022 Time Seen by Provider: 16:40 Initial Comments Patient is a 67-year-old female who resides at a local [facility] history of COPD, chronic pain, history of urinary tract infections presents to the emergency department with a report from the [facility] of "altered mental status". On arrival patient is alert but hypoxic on room air in the low 80s. She is demonstrating no increased work of breathing or respiratory distress. She was placed on 2 L of oxygen per nasal cannula satting 96%. She states that she has had a bit of a cough over the last 2 to 3 days. She is also had 2 episodes of watery diarrhea today. She has a little bit of dysuria. No increased urgency or frequency. She has chronic back pain due to multiple surgeries, rods in her back. She is COVID vaccinated. She missed lunch today because she was sleeping. She is quite fatigued. Denies swelling in her lower extremities or pain. Diabetic blood sugar in the 130s on arrival. She demonstrates no confusion on my evaluation. Timing/Duration: Other (fever per NH today.) Associated Systoms: Malaise, Other (chonic back pain; diarrhea) Allergies and Home Medications Allergies Coded Allergies: lisinopril (Unverified Adverse Reaction, Intermediate, Cough, 11/10/20) Listed on medical record from PCP's office. morphine (Unverified Adverse Reaction, Mild, CONFUSION, 12/20/20) Patient Home Medication List Home Medication List Reviewed: Yes Amitriptyline HCl (Amitriptyline HCl) 50 Mg Tablet, 50 MG PO HS, (Reported) Entered as Reported by: ADITI ROWLAND on 12/30/222136 Last Action: New Order Amlodipine Besylate (Amlodipine Besylate) 5 Mg Tablet, 5 MG PO DAILY Prescribed by: KATELYNN VÁZQUEZ on 12/21/20 1007 Last Action: Reviewed Aspirin (Aspirin EC) 81 Mg Tablet.dr, 81 MG PO DAILY, (Reported) Entered as Reported by: JULIAN MARTINEZ on 10/24/18 1352 Last Action: Reviewed Atorvastatin Calcium (Atorvastatin Calcium) 10 Mg Tablet, 5 MG PO HS, (Reported) Entered as Reported by: ADITI ROWLAND on 12/30/222138 Last Action: New Order Calcium Carbonate (Calcium) 600 Mg Tablet, 600 MG PO DAILY, (Reported) Entered as Reported by: DEEJAY BRUMFIELD on 11/09/20 144 Carvedilol (Carvedilol) 3.125 Mg Tablet, 3.125 MG PO BID Prescribed by: KATELYNN VÁZQUEZ on 12/21/20 1007 Cephalexin (Cephalexin) 500 Mg Capsule, 500 MG PO QID Prescribed by: KATELYNN VÁZQUEZ on 12/21/20 1007 Clonazepam (Clonazepam) 0.5 Mg Tablet, 0.25 MG PO HS Prescribed by: KATELYNN VÁZQUEZ on 12/21/20 1007 Cyclobenzaprine HCl (Cyclobenzaprine HCl) 10 Mg Tablet, 10 MG PO BID PRN for MUSCLE SPASMS, (Reported) Entered as Reported by: DEEJAY BRUMFIELD on 11/09/201447 Last Action: Reviewed Diclofenac Sodium (Diclofenac Sodium) 100 Gm Gel..gram., 100 GM TP TID PRN for PAIN-MILD (1-4), (Reported) Entered as Reported by: AFSANEH QUINONES on 12/19/20 1013 Famotidine (Famotidine) 20 Mg Tablet, 20 MG PO DAILY Prescribed by: KATELYNN VÁZQUEZ on 12/21/20 1007 Last Action: Reviewed Furosemide (Lasix) 40 Mg Tablet, 40 MG PO DAILY, (Reported) Entered as Reported by: ADITI ROWLAND on 12/30/222142 Last Action: New Order Gabapentin (Neurontin) 300 Mg Capsule, 300 MG PO TID, (Reported) Entered as Reported by: DEEJAY BRUMFIELD on 11/09/201447 Hydrocodone/Acetaminophen (Hydrocodone-Acetamin 5-325 mg) 5 Mg-325 Mg Tablet, 1 TAB PO Q8H PRN for PAIN-MODERATE (5-7), (Reported) Entered as Reported by: ADITI ROWLAND on 12/30/222141 Last Action: New Order Insulin Aspart (Novolog) 100 Unit/1 Ml Susp, 0 UNIT SC ACHS Prescribed by: KATELYNN VÁZQUEZ on 12/21/20 1007 Insulin Determir (Levemir) 1,000 Units/10 Ml Soln, 30 UNITS SQ DAILY PRN for BLOOD GLUCOSE OVER 150, (Reported) Entered as Reported by: AFSANEH QUINONES on 12/19/20 1016 Liraglutide (Victoza 3-Jn) 0.6 Mg/0.1 Ml Pen.injctr, 1.8 MG SC DAILY, (Reported) Entered as Reported by: JULIAN MARTINEZ on 10/24/18 1256 Losartan Potassium (Losartan Potassium) 50 Mg Tablet, 50 MG PO 1800, (Reported) Entered as Reported by: DEEJAY BRUMFIELD on 11/09/20 1448 Nitrofurantoin Macrocrystal (Nitrofurantoin) 100 Mg Capsule, 100 MG PO BID Prescribed by: MARTÍNEZ MENG on 02/24/22 0806 Rosuvastatin Calcium (Rosuvastatin Calcium) 20 Mg Tablet, 20 MG PO HS Prescribed by: KATELYNN VÁZQUEZ on 12/21/201006 Ticagrelor (Brilinta) 90 Mg Tablet, 90 MG PO BID Prescribed by: KATELYNN VÁZQUEZ on 12/21/20 1007 Venlafaxine HCl (Effexor Xr) 37.5 Mg Cap.er.24h, 75 MG PO DAILY, (Reported) Entered as Reported by: ADITI ROWLAND on 12/30/222140 Last Action: New Order Discontinued Medications Amitriptyline HCl (Amitriptyline HCl) 100 Mg Tablet, 100 MG PO HS, (Reported) Discontinued Reason: Provider Change Entered as Reported by: DEEJAY BRUMFIELD on 11/09/20 1448 Last Action: Discontinued Hydrocodone/Acetaminophen (Hydrocodone-Acetamin 7.5-325) 1 Each Tablet, 1 EACH PO Q4H PRN for PAIN-MODERATE (5-7) Discontinued Reason: Provider Change Prescribed by: KATELYNN VÁZQUEZ on 12/21/20 1007 Last Action: Discontinued Review of Systems Review of Systems Constitutional: see HPI, malaise EENTM: no symptoms reported Respiratory: no symptoms reported Cardiovascular: no symptoms reported Gastrointestinal: no symptoms reported Genitourinary: no symptoms reported Musculoskeletal: back pain (chronic) Skin: no symptoms reported All Other Systems Reviewed Negative Unless Noted: Yes Past Flqrnht-Mnfgva-Stfsfh Hx Patient Social History Tobacco Use?: Yes Tobacco type used: Cigarettes Smoking Status: Current Everyday Smoker Substance use?: No Alcohol Use?: No Pt feels they are or have been: No Immunizations Up To Date First/Initial COVID19 Vaccinat: UNKNOWN DATE Second COVID19 Vaccination Hernando: UNKNOWN DATE Third COVID19 Vaccination Date: UNKNOWN DATE Past Medical History Surgery/Hospitalization HX: sx: gastric bypass, gallbladder, hyst, ovarian cyst removal, appendectomy, disc surgery pmh: dm, htn, chronic pain. Surgeries: Yes (GASTRIC BYPASS, BACK SX X 2) Abdominal, Appendectomy, Gallbladder, Hysterectomy, Orthopedic Respiratory: No Cardiac: Yes Hypertension Neurological: Yes Neuropathy Reproductive Disorders: No HOSPICE MUSIC THERAPY History: Hysterectomy Genitourinary: Yes Bladder Infection Gastrointestinal: No Musculoskeletal: Yes (RESTLESS LEG SYNDROME) Back Injury, Chronic Back Pain Endocrine: Yes Diabetes, Insulin dep HEENT: Yes (GLASSES) Cancer: No Psychosocial: Yes Sleep Difficulties, Anxiety, Depression Integumentary: No Blood Disorders: Yes (ANEMIA) Family Medical History Cancer, Diabetes, Stroke Physical Exam Vital Signs Vital Signs - First Documented 12/30/22 16:30 Temp 37.8 Pulse 100 Resp 18 B/P (MAP) 122/67 (85) Pulse Ox 92 O2 Delivery Nasal Cannula O2 Flow Rate 2.00 Capillary Refill : Less Than 3 Seconds Height, Weight, BMI Height: 5'5.00" Weight: 187lbs. 0.6oz. [id number]; BMI Method:Stated General Appearance: No Apparent Distress, Chronically ill Eyes: Bilateral Eye Normal Inspection HEENT: PERRL/EOMI Neck: Normal Inspection Respiratory: No Accessory Muscle Use, No Respiratory Distress, Crackles (at bases bilaterally), Other ((reported sats low 80's on arrival)) Cardiovascular: Regular Rate, Rhythm, Tachycardia Gastrointestinal: Normal Bowel Sounds, Non Tender, Soft Extremity: Normal Inspection, Normal Range of Motion Neurologic/Psychiatric: Alert, Oriented x3, No Motor/Sensory Deficits, Normal Mood/Affect, vitamin manager II-XII Norm as Tested, Other (patient is not confused) Skin: Warm/Dry (feels febrile) Focused Exam Sepsis Stage: Sepsis Lactate Level 12/30/22 16:39: Lactic Acid Level 2.59*H 12/30/22 18:23: Lactic Acid Level 2.12*H Time of Focused Exam: 18:15 Respiratory: Crackles (right base) Cardiovascular: Regular Rate, Rhythm, Tachycardia Capillary Refill: Less Than 3 Seconds Peripheral Pulses: 2+ Radial Pulses (R), 2+ Radial Pulses (L) Skin: normal color, warm/dry Lactic Acid Level Laboratory Tests Test 12/30/22 16:39 12/30/22 18:23 Lactic Acid Level 2.59 MMOL/L (0.50-2.00) *H 2.12 MMOL/L (0.50-2.00) *H Within 3hrs of presentation: Admin fluids, Admin ABX, Blood cultures prior to ABX's, Focus exam, Lactate level Progress/Results/Core Measures Suspected Sepsis Recent Fever Within 48 Hours: Yes Infection Criteria Present: Suspected New Infection New/Unexplained Altered Menta: Yes Within 3hrs of presentation: Admin fluids, Admin ABX, Blood cultures prior to ABX's, Focus exam, Lactate level SIRS Temperature: Pulse: 100 Respiratory Rate: 18 Laboratory Tests 12/30/22 16:39: White Blood Count 16.1H Blood Pressure 122 /67 Mean: 85 12/30/22 16:39: Lactic Acid Level 2.59*H 12/30/22 18:23: Lactic Acid Level 2.12*H Laboratory Tests 12/30/22 16:39: Creatinine 0.91, INR Comment 1.0, Platelet Count 231, Total Bilirubin 0.3 Results/Orders Lab Results Laboratory Tests Test 12/30/22 16:39 12/30/22 18:00 12/30/22 18:14 12/30/22 18:23 Range/Units White Blood Count 16.1 H 4.3-11.0 10^3/uL Red Blood Count 4.26 3.80-5.11 10^6/uL Hemoglobin 10.0 L 11.5-16.0 g/dL Hematocrit 33 L 35-52 % Mean Corpuscular Volume 77 L 80-99 fL Mean Corpuscular Hemoglobin 24 L 25-34 pg Mean Corpuscular Hemoglobin Concent 31 L 32-36 g/dL Red Cell Distribution Width 17.2 H 10.0-14.5 % Platelet Count 231 130-400 10^3/uL Mean Platelet Volume 11.0 9.0-12.2 fL Immature Granulocyte % (Auto) 1 % Neutrophils (%) (Auto) 90 H 42-75 % Lymphocytes (%) (Auto) 4 L 12-44 % Monocytes (%) (Auto) 5 0-12 % Eosinophils (%) (Auto) 0 0-10 % Basophils (%) (Auto) 0 0-10 % Neutrophils # (Auto) 14.5 H 1.8-7.8 10^3/uL Lymphocytes # (Auto) 0.6 L 1.0-4.0 10^3/uL Monocytes # (Auto) 0.8 0.0-1.0 10^3/uL Eosinophils # (Auto) 0.0 0.0-0.3 10^3/uL Basophils # (Auto) 0.1 0.0-0.1 10^3/uL Immature Granulocyte # (Auto) 0.1 0.0-0.1 10^3/uL Neutrophils % (Manual) 90 % Lymphocytes % (Manual) 4 % Monocytes % (Manual) 6 % Eosinophils % (Manual) 0 % Basophils % (Manual) 0 % Band Neutrophils 0 % Polychromasia SLIGHT Anisocytosis MODERATE Prothrombin Time 14.0 12.2-14.7 SEC INR Comment 1.0 0.8-1.4 Activated Partial Thromboplast Time 32 24-35 SEC Sodium Level 134 L 135-145 MMOL/L Potassium Level 3.9 3.6-5.0 MMOL/L Chloride Level 100 98-107 MMOL/L Carbon Dioxide Level 20 L 21-32 MMOL/L Anion Gap 14 5-14 MMOL/L Blood Urea Nitrogen 16 7-18 MG/DL Creatinine 0.91 0.60-1.30 MG/DL Estimat Glomerular Filtration Rate 69 BUN/Creatinine Ratio 18 Glucose Level 194 H 70-105 MG/DL Lactic Acid Level 2.59 *H 2.12 *H 0.50-2.00 MMOL/L Calcium Level 8.8 8.5-10.1 MG/DL Corrected Calcium 9.1 8.5-10.1 MG/DL Total Bilirubin 0.3 0.1-1.0 MG/DL Aspartate Amino Transf (AST/SGOT) 16 5-34 U/L Alanine Aminotransferase (ALT/SGPT) 11 0-55 U/L Alkaline Phosphatase 79 40-136 U/L Total Protein 6.7 6.4-8.2 GM/DL Albumin 3.6 3.2-4.5 GM/DL Urine Color YELLOW Urine Clarity TURBID Urine pH 7.0 5-9 Urine Specific [place] 1.020 1.016-1.022 Urine Protein 2+ H NEGATIVE Urine Glucose (UA) NEGATIVE NEGATIVE Urine Ketones NEGATIVE NEGATIVE Urine Nitrite NEGATIVE NEGATIVE Urine Bilirubin NEGATIVE NEGATIVE Urine Urobilinogen 1.0 < = 1.0 MG/DL Urine Leukocyte Esterase 1+ H NEGATIVE Urine RBC (Auto) 1+ H NEGATIVE Urine RBC 0-2 /HPF Urine WBC TNTC H /HPF Urine Squamous Epithelial Cells 0-2 /HPF Urine Crystals NONE /LPF Urine Calcium Oxalate Crystals /LPF Urine Bacteria LARGE H /HPF Urine Casts NONE /LPF Urine Mucus NEGATIVE /LPF Urine Culture Indicated CULTURE PENDING Arterial Blood pH 7.45 H 7.37-7.43 Arterial Blood Partial Pressure CO2 38 35-45 MMHG Arterial Blood Partial Pressure O2 63 L 79-93 MMHG Arterial Blood HCO3 26 23-27 MMOL/L Arterial Blood Total CO2 27.6 21.0-31.0 MMOL/L Arterial Blood Oxygen Saturation 94 94-100 % Arterial Blood Base Excess 2.3 -2.5-2.5 MMOL/L Blood Gas Ventilator Setting NO Blood Gas Inspired Oxygen ROOM AIR Micro Results Microbiology 12/30/22 Urine Culture - Preliminary, Resulted Escherichia coli My Orders Orders - NOLA COHN MD Cbc And Automated Diff (12/30/22 16:53) Comprehensive Metabolic Panel (12/30/22 16:53) Blood Culture (12/30/22 16:53) Sputum Culture (12/30/22 16:53) Urinalysis (12/30/22 16:53) Urine Culture (12/30/22 16:53) Protime With Inr (12/30/22 16:53) Partial Thromboplastin Time (12/30/22 16:53) Chest 1 View, Ap/Pa Only (12/30/22 16:53) Ed Iv/Invasive Line Start (12/30/22 16:53) Ed Iv/Invasive Line Start (12/30/22 16:53) Vital Signs Adult Sepsis Patie Q15M (12/30/22 16:53) O2 (12/30/22 16:53) Remove Rings In Anticipation O (12/30/22 16:53) Lactic Acid Analyzer (12/30/22 16:53) Manual Differential (12/30/22 16:39) Cefepime Injection (Cefepime Injection) (12/30/22 17:45) Ns Iv 1000 Ml (Ns Iv 1000 Ml) (12/30/22 17:41) Arterial Blood Gas (12/30/22 18:14) Arterial Blood Draw - Obtain (12/30/22 ) Cefepime Injection (Cefepime Injection) (12/30/22 18:35) Vital Signs/I&O 12/30/22 12/30/22 12/30/22 16:30 16:30 19:35 Temp 37.8 Pulse 100 Resp 18 93 B/P (MAP) 122/67 (85) 111/58 Pulse Ox 92 16 O2 Delivery Nasal Cannula Nasal Cannula Nasal Cannula O2 Flow Rate 2.00 2.00 2.00 12/31/22 00:00 Intake Total 1050 ml Balance 1050 ml Capillary Refill : Less Than 3 Seconds Blood Pressure Mean: 85 Progress Note : Time: 18:11 Progress Note Patient seen and evaluated by me. Evaluation today includes "septic protocol", CBC, Chem-12, coags, blood cultures, lactic acid, sputum, urine cultures, urinalysis, single view chest x-ray. Pertinent physical exam findings elderly chronically ill-appearing female in no acute distress. Dry oral mucosa. She has crackles in the right base with diminished lung sounds throughout. Heart is regular and tachycardic. Abdomen is soft. No skin wounds or lesions are noted. Dry oral mucosa. Borderline febrile at 100.1. Oriented, no focal neurologic deficits. Differential diagnosis includes sepsis, pneumonia, urinary tract infection Labs independently reviewed and interpreted by me as well as chest x-ray. CBC shows a leukocytosis of 16.1 with 90% segmented neutrophils. Hemoglobin and hematocrit low at 10 and 33. Serum glucose 231. Chem-12 remarkable for an elevated blood sugar of 194. Her CO2 was slightly depressed at 20. Lactic acid is elevated at 2.59. Coags are within normal limits. Urinalysis with VIOLA WBC also, large bacteria. - UTI. Chest x-ray on my independent interpretation shows a developing left lower lobe infiltrate. Radiology read is discrepant and calls this overlying soft tissues. Based on physical exam however I believe this is a developing infiltrate. Patient is treated with normal saline x1 L, given cefepime 1 g for sepsis protocol. She is maintaining saturations at 94% on 2 L. Her respiratory rate is currently 24, heart rate 101, blood pressure 122/67. She does not meet severe sepsis criteria. Will discuss with Dr. Vázquez on for the hospitalist service for admission and treatment. Diagnostic Imaging Diagonstic Imaging: Xray Plain Films/CT/US/NM/MRI: chest Comments [facility], [place] NAME: GOPAL ISAACS [facility] REC#: [id number] PT STATUS: REG ER : 1955 PHYSICIAN: NOLA COHN MD ADMIT DATE: 12/30/22/ER Draft Date of Exam:12/30/22 CHEST 1 VIEW, AP/PA ONLY INDICATION: Altered mental status, confusion COMPARISON: 02/24/2022 TECHNIQUE: Single radiograph chest dated 12/30/2022. FINDINGS: Surgical clips within the upper abdomen bilaterally. Post surgical changes within the thoracolumbar spine. Given patient rotation, the cardiac silhouette is within normal limits in size. No significant pulmonary vascular congestion. Significantly low lung volumes. The right lung is clear of focal pulmonary opacity. Mild opacities within the peripheral aspect of the left lung base. No significant pleural effusion. No pneumothorax. No acute osseous abnormality. IMPRESSION: Opacities within the peripheral left lung base are favored simply relate to overlying soft tissues. Infiltrate felt less likely. Significantly low lung volumes with post surgical changes as above. Dictated on workstation # [id number] Dict: 12/30/221742 Trans: 12/30/221747 [facility] [id number] Interpreted by: HO KOTHARI MD Electronically signed by: Counseling-Symptomatic: 3-10 Minutes Departure Communication (Admissions) Time/Spoke to Admitting Phy: 18:[address] Vázquez - [facility] Hospitalist Impression Primary Impression: Sepsis Qualified Codes: A41.9 - Sepsis, unspecified organism Additional Impressions: Pneumonia Qualified Codes: J18.9 - Pneumonia, unspecified organism UTI (urinary tract infection) Qualified Codes: N39.0 - Urinary tract infection, site not specified Disposition: ADMITTED INPATIENT Condition: Stable Admissions Decision to Admit Reason: Admit from ER (General) Decision to Admit/Date: Dec 30, 2022 Time/Decision to Admit Time: 18:12 Departure-Patient Inst. Referrals: TUMACAC[facility]I - [facility] (PCP/Family) Primary Care Physician Copy Copies To 1: JOSE LUIS SOLO KATHRYN M MD Dec 30, 2022 17:20
[2022-12-30] MEDS ORDERED: NS IV 1000 ML 1,000 ML IV STA (17:41)
[2022-12-30] MEDS ORDERED: CEFEPIME INJECTION 1,000 MG in NS (IVPB) 50 ML 50 ML IV ONE (17:45)
--- NOTE | 2022-12-30 17:48 | Diagnostic Imaging Report ---
INDICATION: Altered mental status, confusion COMPARISON: 02/24/2022 TECHNIQUE: Single radiograph chest dated 12/30/2022. FINDINGS: Surgical clips within the upper abdomen bilaterally. Post surgical changes within the thoracolumbar spine. Given patient rotation, the cardiac silhouette is within normal limits in size. No significant pulmonary vascular congestion. Significantly low lung volumes. The right lung is clear of focal pulmonary opacity. Mild opacities within the peripheral aspect of the left lung base. No significant pleural effusion. No pneumothorax. No acute osseous abnormality. IMPRESSION: Opacities within the peripheral left lung base are favored simply relate to overlying soft tissues. Infiltrate felt less likely. Significantly low lung volumes with post surgical changes as above. Dictated by: Dictated on workstation # [id number]
[2022-12-30 17:54] LABS: ANISOCYTOSIS MODERATE; BAND NEUTROPHILS 0 %; BASOPHILS % (MANUAL) 0 %; EOSINOPHILS % (MANUAL) 0 %; LYMPHOCYTES % (MANUAL) 4 %; MONOCYTES % (MANUAL) 6 %; NEUTROPHILS % (MANUAL) 90 %; POLYCHROMASIA SLIGHT
[2022-12-30 18:17] LABS: BILIRUBIN,URINE NEGATIVE (NEGATIVE); CLARITY,URINE TURBID; COLOR,URINE YELLOW; GLUCOSE, URINE (UA) NEGATIVE (NEGATIVE); KETONES,URINE NEGATIVE (NEGATIVE); LEUKOCYTE ESTERASE ,URINE 1+ (NEGATIVE); NITRITE,URINE NEGATIVE (NEGATIVE); PROTEIN,URINE 2+ (NEGATIVE); RBC,URINE 0-2 /HPF
[2022-12-30 18:18] LABS: BACTERIA,URINE LARGE /HPF; SQUAMOUS EPITHELIAL CELL,UR 0-2 /HPF; WBC,URINE TNTC /HPF
[2022-12-30 18:29] LABS: ABG BASE EXCESS 2.3 MMOL/L (-2.5-2.5); ABG OXYGEN SATURATION 94 % (94-100); ABG PCO2 38 MMHG (35-45); ABG PH 7.45 (7.37-7.43); ABG PO2 63 MMHG (79-93); ABG TCO2 27.6 MMOL/L (21.0-31.0)
[2022-12-30 18:32] LABS: INSPIRED O2 ROOM AIR; VENTILATOR NO
[2022-12-30] MEDS ORDERED: CEFEPIME 1 GM/10 ML VIAL ONE (18:35)
[2022-12-30 19:47] VITALS: BP 119/72
[2022-12-30] MEDS ORDERED: CALCIUM CARBONATE 500 MG CHEW TABLET PO PRN (20:00)
[2022-12-30] MEDS ORDERED: hydrALAZINE INJECTION 20 MG/ML VIAL IV PRN (20:00)
[2022-12-30] MEDS ORDERED: VANCOMYCIN INJECTION 0.1 MG in NS (IVPB) 250 ML 250 ML IV SCH (20:00)
[2022-12-30] MEDS ORDERED: HYDROmorphone INJECTION 2 MG/ML VIAL IV PRN (20:00)
[2022-12-30] MEDS ORDERED: LORazepam 0.5 MG TABLET PO PRN (20:00)
[2022-12-30] MEDS ORDERED: diphenhydrAMINE 25 MG TABLET PO PRN (20:00)
[2022-12-30] MEDS ORDERED: ANTACID SUSPENSION 30 ML UDC PO PRN (20:00)
[2022-12-30] MEDS ORDERED: ONDANSETRON INJECTION 4 MG/2 ML (SDV) IV PRN (20:00)
[2022-12-30] MEDS ORDERED: MELATONIN 3 MG TABLET PO PRN (20:00)
[2022-12-30] MEDS ORDERED: diphenhydrAMINE INJ 50 MG/ML VIAL IVP PRN (20:00)
[2022-12-30] MEDS ORDERED: ONDANSETRON 4 MG ORAL DISSOLVE TABLET PO PRN (20:00)
[2022-12-30] MEDS ORDERED: LACTULOSE SYRUP 10GM/15ML 30ML UDC PO PRN (20:00)
[2022-12-30] MEDS ORDERED: ACETAMINOPHEN 325 MG TABLET PO PRN (20:00)
[2022-12-30] MEDS ORDERED: BISACODYL 10 MG SUPPOSITORY PR PRN (20:00)
[2022-12-30] MEDS ORDERED: MILK OF MAGNESIA 400 MG/5 ML 30 ML UDC PO PRN (20:00)
[2022-12-30] MEDS: SENNOSIDES 8.6 MG TABLET PO SCH (20:21)
[2022-12-30] MEDS: DOCUSATE SODIUM 100 MG CAPSULE PO SCH (20:21)
[2022-12-30] MEDS: NS IV 1000 ML 1,000 ML IV SCH (20:55)
[2022-12-30] MEDS: ENOXAPARIN 40 MG/0.4 ML SYRINGE SC SCH (20:57)
[2022-12-30 21:03] VITALS: BP 110/75
[2022-12-30] MEDS: VANCOMYCIN 1 GM/NS 250 ML IVPB IV SCH ×4 (21:22→22:40)
[2022-12-30] MEDS ORDERED: AMIT50TA3 PO (21:37)
[2022-12-30] MEDS ORDERED: ATOR10TA66 PO (21:39)
[2022-12-30] MEDS ORDERED: VENL37.52 PO (21:41)
[2022-12-30] MEDS ORDERED: ACHD5005 PO (21:42)
[2022-12-30] MEDS ORDERED: FURO-124 PO (21:43)
[2022-12-30 22:00] VITALS: BP 111/66
[2022-12-30] MEDS: RT-Ipratropium/Albuterol NEB 3 ML VIAL INH SCH (22:02)
[2022-12-30] MEDS: oxyCODONE IMMEDIATE RELEASE 5 MG TABLET PO PRN (22:42)
[2022-12-30 23:00] VITALS: BP 101/65
[2022-12-30 23:48] VITALS: BP_SYST 100; BP_SYST 135; BP_DIAS 53; BP_DIAS 74
[2022-12-30] MEDS: CEFEPIME INJECTION 1,000 MG in NS (IVPB) 50 ML 50 ML IV SCH (23:57)
[2022-12-31] VITALS (9 sets, daily range): BP systolic 113–175; BP diastolic 63–80
[2022-12-31] MEDS: RT-Ipratropium/Albuterol NEB 3 ML VIAL INH SCH ×6 (01:54→22:17)
[2022-12-31 05:25] LABS: BASOPHILS % (AUTO) 1 % (0-10); EOSINOPHILS # (AUTO) 0.1 10^3/uL (0.0-0.3); EOSINOPHILS % (AUTO) 1 % (0-10); HEMATOCRIT 32 % (35-52); HEMOGLOBIN 9.6 g/dL (11.5-16.0); LYMPHOCYTES # (AUTO) 1.1 10^3/uL (1.0-4.0); LYMPHOCYTES % (AUTO) 14 % (12-44); MEAN CORPUSCULAR HEMOGLOBIN 23 pg (25-34); MEAN CORPUSCULAR HGB CONC 30 g/dL (32-36); MEAN CORPUSCULAR VOLUME 76 fL (80-99); MEAN PLATELET VOLUME 11.3 fL (9.0-12.2); MONOCYTES # (AUTO) 0.5 10^3/uL (0.0-1.0); MONOCYTES % (AUTO) 7 % (0-12); NEUTROPHILS # (AUTO) 6.1 10^3/uL (1.8-7.8); NEUTROPHILS % (AUTO) 78 % (42-75); PLATELET COUNT 202 10^3/uL (130-400); WHITE BLOOD COUNT 7.8 10^3/uL (4.3-11.0)
[2022-12-31 05:41] LABS: ALBUMIN 3.3 GM/DL (3.2-4.5); BILIRUBIN,TOTAL 0.3 MG/DL (0.1-1.0); CALCIUM 8.5 MG/DL (8.5-10.1); CREATININE SERUM 0.81 MG/DL (0.60-1.30); POTASSIUM 3.4 MMOL/L (3.6-5.0); TOTAL PROTEIN 6.1 GM/DL (6.4-8.2)
[2022-12-31] MEDS: CEFEPIME INJECTION 1,000 MG in NS (IVPB) 50 ML 50 ML IV SCH ×3 (05:51→19:01)
[2022-12-31] MEDS ORDERED: POTASSIUM CHLORIDE 20 MEQ TABLET PO ONE (07:00)
--- NOTE | 2022-12-31 07:31 | History & Physical-Hospitalist ---
GLORIA BAH MD, RESIDENT 12/31/22 0731: History of Present Illness HPI/Chief Complaint CC: Altered mental status, fever Patient is a 67-year-old female with a past medical history of diabetes, COPD, chronic pain, history of urinary tract infections who presented from the custodial with altered mental status. She was noted to be hypoxic requiring 2 L nasal cannula. She states she was in her usual state of health until yesterday. She was noted to have leukocytosis, UA was positive for UTI and thus she was admitted for further management. She was started on vancomycin and cefepime for treatment of UTI. This a.m., patient states she is feeling great. She is ready to go home. She denies any concerns today otherwise. Source: patient Exam Limitations: no limitations Date Seen 12/31/22 Time Seen by a Provider: 07:00 Attending Physician Aram Grace - [facility] PCP Admitting Physician: Tequila Vázquez DO Attending Physician: Tequila Vázquez DO Referring Physician Date of Admission Dec 30, 2022 at 19:42 Home Medications & Allergies Home Medications Reviewed patient Home Medication Reconciliation performed by pharmacy medication reconciliations associate technician and/or nursing. Patients Allergies have been reviewed. Allergies Allergies Coded Allergies lisinopril (Unverified Adverse Reaction, Intermediate, Cough, 11/10/20) Listed on medical record from PCP's office. morphine (Unverified Adverse Reaction, Mild, CONFUSION, 12/20/20) Past Hlwtcdn-Oyznca-Zomgry Hx Patient Social History Tobacco Use?: Yes Tobacco type used: Cigarettes Smoking Status: Former Smoker Use of E-Cig and/or Vaping dev: No Substance use?: No Alcohol Use?: No Pt feels they are or have been: No Immunizations Up To Date Date of Influenza Vaccine: Dec 30, 2022 First/Initial COVID19 Vaccinat: UNKNOWN DATE Second COVID19 Vaccination Hernando: UNKNOWN DATE Tetanus Booster (TDap): Unknown Hepatitis A: Yes Hepatitis B: Yes Current Status status: No status: No Advance Directives: No Communicates: Verbally Primary Language: Yoruba Preferred Spoken Language: Yoruba Is interpretation needed?: No Implanted or Applied Medical D: None Past Medical History Surgeries: Abdominal, Appendectomy, Gallbladder, Hysterectomy, Orthopedic Hypertension Neuropathy 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 Bladder Infection Back Injury, Chronic Back Pain Diabetes, Insulin dep Sleep Difficulties, Anxiety, Depression Blood Disorders: Yes (ANEMIA) Family Medical History Cancer, Diabetes, Stroke Review of Systems Constitutional: No dizziness; fever; No weakness EENTM: No throat pain Respiratory: No cough, No dyspnea on exertion, No short of breath Cardiovascular: No chest pain, No edema Gastrointestinal: No abdominal pain, No constipation, No diarrhea, No nausea, No vomiting Genitourinary: No dysuria, No frequency Musculoskeletal: No back pain Physical Exam Physical Exam Vital Signs Vital Signs - First Documented 12/30/22 12/30/22 16:30 20:02 Temp 37.8 Pulse 100 Resp 18 B/P (MAP) 122/67 (85) Pulse Ox 92 O2 Delivery Nasal Cannula O2 Flow Rate 2.00 FiO2 28 Capillary Refill : Less Than 3 Seconds Height, Weight, BMI Height: 5'5.00" Weight: 187lbs. 0.6oz. 84.070708lt; 28.87 BMI Method:Stated General Appearance: No Apparent Distress, WD/WN HEENT: PERRL/EOMI Neck: Full Range of Motion, Non Tender, Supple Respiratory: Chest Non Tender, Normal Breath Sounds, No Accessory Muscle Use, No Respiratory Distress, Crackles (At the base of the lungs bilaterally) Cardiovascular: Regular Rate, Rhythm, No Edema, No Murmur Gastrointestinal: Normal Bowel Sounds, Non Tender, Soft Back: Normal Inspection Neurologic/Psychiatric: Alert, Oriented x3 Skin: Normal Color, Warm/Dry Results Results/Procedures Labs Laboratory Tests 12/30/22 16:39 12/31/22 04:43 12/31/22 04:45 Patient resulted labs reviewed. Imaging: Reviewed Imaging Films Imaging Chest x-ray (12/30/2022): IMPRESSION: Opacities within the peripheral left lung base are favored simply relate to overlying soft tissues. Infiltrate felt less likely. Significantly low lung volumes with post surgical changes as above. Assessment/Plan Admission Diagnosis Sepsis secondary to UTI Admission Status: Inpatient Order (span 2 midnights) Reason for Inpatient Admission: Sepsis secondary to UTI Diagnosis/Problems Diagnosis/Problems (1) UTI (urinary tract infection) Status: Acute Assessment & Plan: Patient presents with altered mental status and fever likely secondary to UTI. Does meet sepsis criteria as listed below. Symptoms improved today. Plan: Continue vancomycin and cefepime Follow-up urine culture which is currently growing E. coli, susceptibilities pending We will move down to fourth floor Qualifiers: Urinary tract infection type: site unspecified Hematuria presence: without hematuria Qualified Codes: N39.0 - Urinary tract infection, site not specified (2) Sepsis Status: Resolved Assessment & Plan: Patient presented with oxygen requirement, leukocytosis and UTI meeting sepsis criteria. As of this morning, sepsis has resolved given that leukocytosis has resolved and patient is on room air. Is not requiring any oxygen. Sepsis is likely secondary to UTI. See problem above. Qualifiers: Sepsis type: sepsis due to unspecified organism Sepsis acute organ dysfunction status: without acute organ dysfunction Qualified Codes: A41.9 - Sepsis, unspecified organism Resolution Date/Time: 12/31/22 @ 10:55 (3) Altered mental status Status: Resolved Assessment & Plan: Likely secondary to UTI and sepsis. AAO x3 today. Resolved. Resolution Date/Time: 12/31/22 @ 11:01 (4) Type 2 diabetes mellitus Status: Chronic Assessment & Plan: Patient is a chronic diabetic, states she is on Levemir 30 units in the morning, 20 units in the evening. Is also on sliding scale insulin. Plan: Every 6 ACHS glucose checks Sliding scale insulin A for now we will switch to B if sugars continue to be poorly controlled (5) Hyponatremia Status: Acute Assessment & Plan: Hyponatremic to 134 on admission. Sodium is 132 today however patient has been receiving fluids. Plan: We will discontinue fluids today. should also help with the crackles noted at the base of the lungs Monitor daily CMP (6) Hypokalemia Status: Acute Assessment & Plan: Hypokalemic to 3.4 today. Plan: Will give potassium 40 mg p.o. TEQUILA VÁZQUEZ DO 01/01/23 0426: History of Present Illness HPI/Chief Complaint Chief complaint: Altered mental status with fever HPI: This is a 67-year-old female with history of COPD who came from custodial [facility] with confusion and fever found to have pneumonia and UTI. Patient was placed on broad-spectrum antibiotics to cover for facility acquired infection. Source: patient Exam Limitations: no limitations Past Dcndfws-Efhoux-Crkpyg Hx Patient Social History Marrital Status: single Employed/Student: retired Smoking Status: Former Smoker Past Medical History COPD High Cholesterol, Hypertension Review of Systems Constitutional: see HPI Physical Exam Physical Exam General Appearance: No Apparent Distress, Chronically ill Respiratory: Crackles (At the base of the lungs bilaterally), Wheezing Cardiovascular: Regular Rate, Rhythm, No Edema Assessment/Plan Admission Diagnosis Assessment: Altered mental status UTI Pneumonia Sepsis COPD with exacerbation Hypoxia Plan: Moved to fourth floor O2 wean Hep-Lock IV fluid I personally performed the xie portions of the visit, discussed case with resident and concur with resident documentation of history, physical exam, assessment and treatment plan unless otherwise noted. Admission Status: Inpatient Order (span 2 midnights) Reason for Inpatient Admission: Sepsis from UTI pneumonia GLORIA BAH MD, RESIDENT Dec 31, 2022 07:31 TEQUILA VÁZQUEZ DO Jan 01, 2023 04:26
[2022-12-31] MEDS: DOCUSATE SODIUM 100 MG CAPSULE PO SCH ×2 (08:10→20:08)
[2022-12-31] MEDS: SENNOSIDES 8.6 MG TABLET PO SCH ×2 (08:10→20:09)
--- NOTE | 2022-12-31 08:35 | Physical Therapy Evaluation ---
PT Evaluation-General Medical Diagnosis Admission Date Dec 30, 2022 at 19:42 Medical Diagnosis: PNA/UTI Onset Date: Dec 30, 2022 Therapy Diagnosis Therapy Diagnosis: Decreased functional mobility Height/Weight Height (Feet): 5 Height (Inches): 5.00 Weight (Pounds): 187 Weight (Ounces): 0.6 Precautions Precautions/Isolations: Fall Prevention, Standard Precautions Weight Bear Status Right Lower Extremity: Right Weight Bearing/Tolerated Left Lower Extremity: Left Weight Bearing/Tolerated Referral Physician: Pardeep Reason for Referral: Evaluation/Treatment Medical History Pertinent Medical History: COPD, DM, Fractures, HTN, Neuropathy Additional Medical History COPD, Tobacco abuse, HTN, DM Neuropathy Current History Pt is a 67-year-old female who resides at a local long term with history of COPD, chronic pain,and history of UTIs presents to the ED with a report from the long term of "altered mental status". Reviewed History: Yes Social History Home: Custodial Current Living Status: Entry Into Home: Level Entry PT Steps Into Home: 0 PT Steps Inside Home: 0 Prior Prior Level of Function SCALE: Activities may be completed with or without assistive devices. 6-Doyjodvstq-dvchuen completes the activity by him/herself with no assistance from a helper. 5-Set-up or Clean-up Assistance-helper sets up or cleans up; patient completes activity. [place] assists only prior to or following the activity. 4-Supervision or Touching Assistance-helper provides verbal cues and/or touching/steadying and/or contact guard assistance as patient completes activity. Assistance may be provided throughout the activity or intermittently. 3-Partial/Moderate Assistance-helper does LESS THAN HALF the effort. [place] lifts, holds or supports trunk or limbs, but provides less than half the effort. 2-Substantial/Maximal Assistance-helper does MORE THAN HALF the effort. [place] lifts or holds trunk or limbs and provides more than half the effort. 3-Zyvijnylw-igtcnw does ALL the effort. Patient does none of the effort to complete the activity. Or, the assistance of 2 or more helpers is required for the patient to complete the activity. If activity was not attempted, code reason: 7-Patient Refused. 9-Not Applicable-not attempted and the patient did not perform the activity before the current illness, exacerbation or injury. 10-Not Attempted due to Environmental Limitations-(lack of equipment, weather restraints, etc.). 88-Not Attempted due to Medical Conditions or Safety Concerns. Bed Mobility: 6 Transfers (B,C,W/C): 6 Gait: 6 Stairs: 9 Wheelchair Mobility: 6 Indoor Mobility (Ambulation): Independent Stairs: Not Applicalbe Prior Devices Use: Manual wheelchair, Walker PT Evaluation-Current Subjective Pt is agreeable to PT. Denies pain Pain Numeric Pain Scale: 0-No Pain Location: No Pain Reported Objective Patient Orientation: Person, Place, Time, Situation Attachments: IV ROM/Strength ROM Upper Extremities WFL ROM Lower Extremities WFL Strength Upper Extremities 3+/5 grossly Strength Lower Extremities 3+/5 grossly Integumentary/Posture Integumentary See nurses note Sensory Vision: Wears Glasses Hearing: Functional Hand Dominance: Right Sensation Right Upper Extremit: Intact Sensation Left Upper Extremity: Intact Sensation Right Lower Extremit: Intact Sensation Left Lower Extremity: Intact Transfers Sit to Stand (QC): 4 Gait Mode of Locomotion: Walk Anticipated Mode of Locomotion: Walk Walk 10 feet (QC): 4 Distance: 30ft Gait Assistive Device: FWW Assessment/Needs Rehab Potential: Good PT Director Learning Services Goals Detention Goals PT Director Learning Services Goals Time Frame: Jan 07, 2023 Roll Left & Right (QC): 6 Sit to Lying (QC): 6 Lying-Sitting on Side/Bed(QC): 6 Sit to Stand (QC): 6 Chair/Scf-hl-Pqhzy Xfer(QC): 6 Toilet Transfer (QC): 6 Walk 10 feet (QC): 6 Walk 50ft with 2 Turns (QC): 6 PT Plan Problem List Problem List: Activity Tolerance, Functional Strength, Safety, Balance, Gait, Transfer, Bed Mobility, ROM Treatment/Plan Treatment Plan: Continue Plan of Care Treatment Plan: Bed Mobility, Education, Functional Activity Remy, Functional Strength, Group Therapy, Gait, Safety, Therapeutic Exercise, Transfers Treatment Duration: Jan 07, 2023 Frequency: 5 times per week Estimated Hrs Per Day: .25 hour per day Patient and/or Family Agrees t: Yes Safety Risks/Education Patient Education: Gait Training, Transfer Techniques, Correct Positioning, Safety Issues Teaching Recipient: Patient Teaching Methods: Demonstration, Discussion Response to Teaching: Reinforcement Needed Discharge Recommendations Therapy Discharge Recommendati: 24 Hour Supervision (Prior living = NH) Equpiment Recommendations-D/C: None Discharge Status/Home Program Cont per POC Barriers to Progress Weakness Target Placement NH (prior living situation) Time Time In: 827 Time Out: 850 DATE: Dec 31, 2022 Total Billed Treatment Time: 23 Total Billed Treatment 23 min 1 visit MOLLY LU PT Dec 31, 2022 08:35
[2022-12-31] MEDS: NS IV 1000 ML 1,000 ML IV SCH (09:37)
[2022-12-31] MEDS: inSUlin ASPART 1 UNIT/0.01 ML (PER UNIT) SC SCH ×4 (10:58→20:36)
[2022-12-31] MEDS ORDERED: inSUlin ASPART 1 UNIT/0.01 ML (PER UNIT) SC ONE (11:00)
[2022-12-31] MEDS ORDERED: PREG150C47 PO (14:52)
[2022-12-31] MEDS ORDERED: FAMO-356 PO (14:52)
[2022-12-31] MEDS ORDERED: INSU100I14 SQ (14:52)
[2022-12-31] MEDS ORDERED: VENL75CA93 PO (14:52)
[2022-12-31] MEDS ORDERED: PREG100C56 PO (14:52)
[2022-12-31] MEDS ORDERED: AMLO-250 PO (14:52)
[2022-12-31] MEDS ORDERED: ACET325T38 PO (14:52)
[2022-12-31] MEDS ORDERED: LORA10TA7 PO (14:52)
[2022-12-31] MEDS ORDERED: ROPI2TAB52 PO (14:52)
[2022-12-31] MEDS ORDERED: GLUC1SYR IM (14:52)
[2022-12-31] MEDS ORDERED: GUAI5SYR PO (14:52)
[2022-12-31] MEDS ORDERED: POTA-160 PO (14:52)
[2022-12-31] MEDS ORDERED: BACL10TA PO (14:52)
[2022-12-31] MEDS ORDERED: INSU100I88 SQ (14:52)
[2022-12-31] MEDS ORDERED: METF-397 PO (14:52)
[2022-12-31] MEDS: oxyCODONE IMMEDIATE RELEASE 5 MG TABLET PO PRN ×2 (16:59→21:13)
[2022-12-31] MEDS: VANCOMYCIN 750 MG/NS 250 ML IVPB IV SCH ×2 (17:00)
[2022-12-31] MEDS: amLODIPine 5 MG TABLET PO SCH ×2 (20:08→20:35)
[2022-12-31] MEDS: ENOXAPARIN 40 MG/0.4 ML SYRINGE SC SCH (20:08)
[2022-12-31] MEDS: ASPIRIN enteric coated 81MG TABLET PO SCH ×2 (20:08→20:35)
[2022-12-31] MEDS ORDERED: HYDROcodone/ACETAMINOPHEN 5 MG/325 MG TABLET PO PRN (20:30)
[2022-12-31] MEDS ORDERED: FAMOTIDINE 20 MG TABLET PO PRN (20:30)
[2022-12-31] MEDS ORDERED: LORATADINE 10 MG TABLET PO PRN (20:30)
[2022-12-31] MEDS ORDERED: BACLOFEN 10 MG TABLET PO PRN (20:30)
[2022-12-31] MEDS ORDERED: ACETAMINOPHEN 325 MG TABLET PO PRN (20:30)
[2022-12-31] MEDS ORDERED: AMITRIPTYLINE 25 MG TABLET PO SCH (21:00)
[2022-12-31] MEDS ORDERED: PREGABALIN 100 MG CAPSULE PO SCH (21:00)
[2022-12-31] MEDS ORDERED: CYCLOBENZAPRINE 10 MG TABLET PO PRN (22:00)
[2022-12-31] MEDS: PREGABALIN 150 MG CAPSULE PO SCH (23:35)
[2023-01-01] MEDS: CEFEPIME INJECTION 1,000 MG in NS (IVPB) 50 ML 50 ML IV SCH ×3 (00:53→13:43)
[2023-01-01] MEDS: RT-Ipratropium/Albuterol NEB 3 ML VIAL INH SCH ×3 (03:01→10:31)
[2023-01-01 03:49] VITALS: BP 154/79
[2023-01-01] MEDS: VANCOMYCIN 750 MG/NS 250 ML IVPB IV SCH ×2 (04:27)
[2023-01-01] MEDS: inSUlin ASPART 1 UNIT/0.01 ML (PER UNIT) SC SCH ×2 (05:44→12:12)
[2023-01-01 05:48] LABS: BASOPHILS # (AUTO) 0.1 10^3/uL (0.0-0.1); BASOPHILS % (AUTO) 1 % (0-10); EOSINOPHILS # (AUTO) 0.3 10^3/uL (0.0-0.3); EOSINOPHILS % (AUTO) 4 % (0-10); HEMATOCRIT 32 % (35-52); HEMOGLOBIN 9.9 g/dL (11.5-16.0); LYMPHOCYTES # (AUTO) 1.7 10^3/uL (1.0-4.0); LYMPHOCYTES % (AUTO) 24 % (12-44); MEAN CORPUSCULAR HEMOGLOBIN 23 pg (25-34); MEAN CORPUSCULAR HGB CONC 31 g/dL (32-36); MEAN CORPUSCULAR VOLUME 74 fL (80-99); MEAN PLATELET VOLUME 10.8 fL (9.0-12.2); MONOCYTES # (AUTO) 0.9 10^3/uL (0.0-1.0); MONOCYTES % (AUTO) 12 % (0-12); NEUTROPHILS # (AUTO) 4.2 10^3/uL (1.8-7.8); NEUTROPHILS % (AUTO) 59 % (42-75); PLATELET COUNT 194 10^3/uL (130-400)
[2023-01-01] MEDS: oxyCODONE IMMEDIATE RELEASE 5 MG TABLET PO PRN (05:52)
[2023-01-01 06:09] LABS: ALBUMIN 3.4 GM/DL (3.2-4.5); BILIRUBIN,TOTAL 0.3 MG/DL (0.1-1.0); CREATININE SERUM 0.79 MG/DL (0.60-1.30); POTASSIUM 3.7 MMOL/L (3.6-5.0); TOTAL PROTEIN 6.3 GM/DL (6.4-8.2)
[2023-01-01] MEDS ORDERED: POTASSIUM CHLORIDE 10 MEQ TABLET PO SCH (07:00)
[2023-01-01 07:34] VITALS: BP 109/57
[2023-01-01] MEDS ORDERED: metFORMIN 500 MG TABLET PO SCH (08:00)
[2023-01-01 08:04] VITALS: BP 147/75
[2023-01-01] MEDS: PREGABALIN 150 MG CAPSULE PO SCH ×2 (08:06→13:34)
[2023-01-01] MEDS: amLODIPine 5 MG TABLET PO SCH (08:06)
[2023-01-01] MEDS: SENNOSIDES 8.6 MG TABLET PO SCH (08:09)
[2023-01-01] MEDS: DOCUSATE SODIUM 100 MG CAPSULE PO SCH (08:09)
--- NOTE | 2023-01-01 08:38 | Discharge Summary ---
GLORIA BAH MD, RESIDENT 01/01/23 0836: Discharge Summary Hospital Course Was the Problem List Reviewed?: Yes Problems/Dx: (1) UTI (urinary tract infection) Status: Acute Assessment & Plan: Patient presents with altered mental status and fever likely secondary to UTI. Does meet sepsis criteria as listed below. Symptoms have resolved at this time. Plan: Urine culture growing E. coli, ESBL We will send patient home on macrobid to complete treatment Qualifiers: Qualified Codes: N39.0 - Urinary tract infection, site not specified (2) Sepsis Status: Resolved Assessment & Plan: Patient presented with oxygen requirement, leukocytosis and UTI meeting sepsis criteria. Sepsis has resolved at this time. Qualifiers: Qualified Codes: A41.9 - Sepsis, unspecified organism (3) Altered mental status Status: Resolved Assessment & Plan: Likely secondary to UTI and sepsis. AAO x3 today. Resolved. (4) Type 2 diabetes mellitus Status: Chronic Assessment & Plan: Patient is a chronic diabetic, states she is on Levemir 30 units in the morning, 20 units in the evening. Is also on sliding scale insulin. Plan: ACHS glucose checks, sliding scale insulin (5) Hyponatremia Status: Resolved Assessment & Plan: Normal sodium this a.m. resolved. (6) Hypokalemia Status: Resolved Assessment & Plan: Normal potassium this a.m., resolved. Hospital Course Date of Admission: Dec 30, 2022 at 19:42 Admission Diagnosis : Family Physician/Provider: Aram Grace - [facility] Date of Discharge: 01/01/23 Discharge Diagnosis: [UTI] Hospital Course: Patient is a 67-year-old female with a past medical history of diabetes, COPD, chronic pain, history of urinary tract infections who presented from the residential with altered mental status and hypoxia requiring 2 L nasal cannula. In the ED she was noted to have a leukocytosis and UA was positive for UTI thus she was admitted for further management. We treated her with vancomycin and cefepime with resolution of her symptoms and leukocytosis. She was able to be weaned off of oxygen. Urine culture was growing ESBL E. Coli. Will send home on macrobid 100mg BID. Labs and Pending Lab Test: Laboratory Tests 12/31/22 10:16: Glucometer 413*H 12/31/22 13:31: Glucometer 240H 12/31/22 16:59: Glucometer 140H 01/01/23 04:55: Glucometer 203H 01/01/23 05:37: White Blood Count 7.0, Red Blood Count 4.31, Hemoglobin 9.9L, Hematocrit 32L, Mean Corpuscular Volume 74L, Mean Corpuscular Hemoglobin 23L, Mean Corpuscular H emoglobin Concent 31L, Red Cell Distribution Width 16.6H, Platelet Count 194, Mean Platelet Volume 10.8, Immature Granulocyte % (Auto) 0, Neutrophils (%) (Auto) 59, Lymphocytes (%) (Auto) 24, Monocytes (%) (Auto) 12, Eosinophils (%) (Auto) 4, Basophils (%) (Auto) 1, Neutrophils # (Auto) 4.2, Lymphocytes # (Auto) 1.7, Monocytes # (Auto) 0.9, Eosinophils # (Auto) 0.3, Basophils # (Auto) 0.1, Immature Granulocyte # (Auto) 0.0, Sodium Level 135, Potassium Level 3.7, Chloride Level 102, Carbon Dioxide Level 23, Anion Gap 10, Blood Urea Nitrogen 7, Creatinine 0.79, Estimat Glomerular Filtration Rate 81, BUN/Creatinine Ratio 9, Glucose Level 223H, Calcium Level 9.0, Corrected Calcium 9.5, Total Bilirubin 0.3, Aspartate Amino Transf (AST/SGOT) 15, Alanine Aminotransferase (ALT/SGPT) 10, Alkaline Phosphatase 69, Total Protein 6.3L, Albumin 3.4 Microbiology 12/30/22 Blood Culture - Preliminary, Resulted 12/30/22 Urine Culture - Preliminary, Resulted Escherichia coli Home Meds Active Reported Loratadine 10 Mg Tablet 10 Mg PO DAILY PRN Guaifenesin Dm Syrup (Guaifenesin/Dextromethorphan) 100 Mg-10 Mg/5 Ml Syrup 10 Ml PO Q4H PRN Acid Envelope Sealer Operator (FAMOTIDINE) (Famotidine) 20 Mg Tablet 20 Mg PO BID PRN Baclofen 10 Mg Tablet 10 Mg PO Q8H PRN Tylenol (Acetaminophen) 325 Mg Tablet 650 Mg PO Q4H PRN Pregabalin 100 Mg Capsule 100 Mg PO TID Pregabalin 150 Mg Capsule 150 Mg PO TID Metformin HCl 500 Mg Tablet 1,000 Mg PO BID TAKES 2 (500MG) TABLETS Ropinirole HCl 2 Mg Tablet 2 Mg PO 1800 Amlodipine Besylate 5 Mg Tablet 5 Mg PO BID Klor-Con 10 (Potassium Chloride) 10 Meq Tablet.er 10 Meq PO DAILY Venlafaxine HCl ER (Venlafaxine HCl) 75 Mg Cap.er.24h 75 Mg PO DAILY Gvoke Syringe (Glucagon) 1 Mg/0.2 Ml Syringe 1 Mg IM UD PRN Novolog Flexpen (Insulin Aspart) 100 Unit/Ml (3 Ml) Solution Units SQ SLIDING/SCALE INJECT PER SLIDING SCALE Levemir Flexpen (Insulin Detemir) 100 Unit/Ml (3 Ml) Insuln.pen 30 Units SQ DAILY Lasix (Furosemide) 40 Mg Tablet 40 Mg PO DAILY Hydrocodone-Acetamin 5-325 mg (Hydrocodone/Acetaminophen) 5 Mg-325 Mg Tablet 1 Tab PO Q8H PRN Atorvastatin Calcium 10 Mg Tablet 5 Mg PO HS TAKES OF A (10MG) TABLET Amitriptyline HCl 50 Mg Tablet 50 Mg PO HS Levemir (Insulin Determir) 100 Unit/Ml Soln 20 Units SQ 2000 Cyclobenzaprine HCl 10 Mg Tablet 10 Mg PO HS PRN Aspirin EC (Aspirin) 81 Mg Tablet.dr 81 Mg PO HS Assessment/Pt Instructions Please see electronic discharge instructions given to patient. Discharge Instructions Discharge Diet: No Restrictions Activity as Tolerated: Yes Consultations Physical therapy Discharge Physical Examination Vital Signs Vital Signs Date Time Temp Pulse Resp B/P (MAP) Pulse Ox O2 Delivery O2 Flow Rate FiO2 01/01/23 08:04 147/75 (99) 01/01/23 08:00 Room Air 01/01/23 07:34 36.4 89 16 91 01/01/23 06:49 0.00 12/30/22 20:02 28 General Appearance: No Apparent Distress HEENT: PERRL/EOMI Respiratory: Chest Non Tender, Lungs Clear, Normal Breath Sounds, No Accessory Muscle Use, No Respiratory Distress Cardiovascular: Regular Rate, Rhythm, No Edema, No Murmur Gastrointestinal: Normal Bowel Sounds, Non Tender, Soft Extremity: Non Tender, No Pedal Edema Neurologic/Psychiatric: Alert, Oriented x3 Allergies: Coded Allergies: lisinopril (Unverified Adverse Reaction, Intermediate, Cough, 11/10/20) Listed on medical record from PCP's office. morphine (Unverified Adverse Reaction, Mild, CONFUSION, 12/20/20) Discharge Summary Date of Admission Dec 30, 2022 at 19:42 Date of Discharge 01/01/23 Discharge Date: Jan 01, 2023 Admission Diagnosis Assessment: Altered mental status UTI Pneumonia Sepsis COPD with exacerbation Hypoxia Plan: Moved to fourth floor O2 wean Hep-Lock IV fluid I personally performed the xie portions of the visit, discussed case with asif smith and concur with resident documentation of history, physical exam, assessment and treatment plan unless otherwise noted. Discharge Diagnosis (1) UTI (urinary tract infection) Status: Acute Assessment & Plan: Patient presents with altered mental status and fever likely secondary to UTI. Does meet sepsis criteria as listed below. Symptoms improved today. Plan: Continue vancomycin and cefepime Follow-up urine culture which is currently growing E. coli, susceptibilities pending We will move down to fourth floor Qualifiers: Qualified Codes: N39.0 - Urinary tract infection, site not specified (2) Sepsis Status: Resolved Assessment & Plan: Patient presented with oxygen requirement, leukocytosis and UTI meeting sepsis criteria. As of this morning, sepsis has resolved given that leukocytosis has resolved and patient is on room air. Is not requiring any oxygen. Sepsis is likely secondary to UTI. See problem above. Qualifiers: Qualified Codes: A41.9 - Sepsis, unspecified organism (3) Altered mental status Status: Resolved Assessment & Plan: Likely secondary to UTI and sepsis. AAO x3 today. Resolved. (4) Type 2 diabetes mellitus Status: Chronic Assessment & Plan: Patient is a chronic diabetic, states she is on Levemir 30 units in the morning, 20 units in the evening. Is also on sliding scale insulin. Plan: Every 6 ACHS glucose checks Sliding scale insulin A for now we will switch to B if sugars continue to be poorly controlled (5) Hyponatremia Status: Resolved Assessment & Plan: Hyponatremic to 134 on admission. Sodium is 132 today however patient has been receiving fluids. Plan: We will discontinue fluids today. should also help with the crackles noted at the base of the lungs Monitor daily CMP (6) Hypokalemia Status: Resolved Assessment & Plan: Hypokalemic to 3.4 today. Plan: Will give potassium 40 mg p.o. Clinical Quality Measures Smoking Cessation Counseling: Counseling-Symptomatic: 3-10 Minutes KATELYNN VÁZQUEZ DO 01/01/23 1854: Discharge Summary Hospital Course Was the Problem List Reviewed?: Yes Hospital Course I personally performed the xie portions of the visit, discussed case with resident and concur with resident documentation of history, physical exam, assessment and treatment plan unless otherwise noted. Assessment/Pt Instructions PCP 1 week Discharge Planning: <30 minutes discharge planning Discharge Instructions Discharge Diet: No Restrictions Discharge Physical Examination General Appearance: No Apparent Distress, WD/WN Respiratory: Lungs Clear Allergies: Coded Allergies: lisinopril (Unverified Adverse Reaction, Intermediate, Cough, 11/10/20) Listed on medical record from PCP's office. morphine (Unverified Adverse Reaction, Mild, CONFUSION, 12/20/20) GLORIA BAH MD, RESIDENT Jan 01, 2023 08:36 KATELYNN VÁZQUEZ DO Jan 01, 2023 18:54
[2023-01-01] MEDS ORDERED: VENlafaxine XR 75 MG (EFFEXOR XR) CAP PO SCH (09:00)
[2023-01-01] MEDS ORDERED: FAMOTIDINE 20 MG TABLET PO PRN (09:00)
[2023-01-01] MEDS ORDERED: inSUlin DETERMIR 1 UNIT/0.01 ML (CHARGE PER UNIT) SQ SCH ×2 (09:00→20:00)
[2023-01-01] MEDS ORDERED: FUROSEMIDE 40 MG TABLET PO SCH (09:00)
--- NOTE | 2023-01-01 10:13 | Physician Query-Final Dx ---
GEGE NOGUERA 01/01/23 1013: Final Diagnosis Give Final Diagnosis Please give Final Diagnosis The medical record reflects the following clinical evidence: Clinical Indicators: " presented from the [facility] with altered mental status." "Altered mental status...Likely secondary to UTI and sepsis. AAO x3 today. Resolved." Na 132, Risk Factor(s): Sepsis UTI, Hyponatremia, Treatment: IV NS, IV Cefepime IV, Neuro monitoring and Lab monitoring, Metabolic encephalopathy, present on admission, resolved Other explanation of clinical findings Unable to determine (no explanation for clinical findings) Please clarify and document your clinical opinion in the progress notes and discharge summary including the definitive and/or presumptive diagnosis, (suspected or probable), related to the above clinical findings. Please include clinical findings supporting your diagnosis. Gege Noguera, MSN, RN Clinical Director Of User Experience [phone] [email or web address] KATELYNN VÁZQUEZ DO 01/01/23 1900: Final Diagnosis Give Final Diagnosis acute on chronic respi failure due to PNA and UTI GEGE NOGUERA Jan 01, 2023 10:13 KATELYNN VÁZQUEZ DO Jan 01, 2023 19:00
[2023-01-01] MEDS ORDERED: CEFP100S6 PO (10:14)
[2023-01-01] MEDS ORDERED: NITR-65 PO (11:25)
[2023-01-01 12:11] VITALS: BP 152/71
[2023-01-01] MEDS ORDERED: rOPINIRole 1 MG TABLET PO SCH (18:00)
== END 2023-01-01 14:30 | DRG 871 ==
LOC: EDUNIT# 16:31 → ER 16:32 → CSD 19:42 → 4TH 12-31 11:29
PROVIDERS: ADMIT Internal Medicine; ATTEND Internal Medicine
DX: A41.51 Sepsis due to Escherichia coli [E. coli] (principal); J18.9 Pneumonia, unspecified organism; J96.21 Acute and chronic respiratory failure with hypoxia; N39.0 Urinary tract infection, site not specified; J44.0 Chronic obstructive pulmonary disease with (acute) lower respiratory infection; J44.1 Chronic obstructive pulmonary disease with (acute) exacerbation; E87.1 Hypo-osmolality and hyponatremia; Z16.12 Extended spectrum beta lactamase (ESBL) resistance; M54.9 Dorsalgia, unspecified; G89.29 Other chronic pain; I10 Essential (primary) hypertension; E11.40 Type 2 diabetes mellitus with diabetic neuropathy, unspecified; F17.210 Nicotine dependence, cigarettes, uncomplicated; G25.81 Restless legs syndrome; F41.9 Anxiety disorder, unspecified; F32.A Depression, unspecified; E87.6 Hypokalemia; E78.00 Pure hypercholesterolemia, unspecified; Z79.4 Long term (current) use of insulin; Z98.84 Bariatric surgery status; Z88.5 Allergy status to narcotic agent; Z91.09 Other allergy status, other than to drugs and biological substances; Z79.899 Other long term (current) drug therapy; Z79.82 Long term (current) use of aspirin; Z79.891 Long term (current) use of opiate analgesic
CPT/HCPCS: 36415; 36600; 71045; 80053; 81000; 82805; 82947; 83605; 85007; 85025; 85027; 85610; 85730; 87040; 87077; 87088; 87186; 94640; 94664; 94760; 96361; 96365

== ENCOUNTER 2023-02-04 03:49 | Emergency (ER) | payer MEDICARE, MEDICAID ==
[~2023-02-04] VITALS: Ht 162.6 cm; Wt 66.2 kg
[~2023-02-04 03:49] MED LIST changes: +ACET325T38 PO; +ACHD5005 PO; +AMIT50TA3 PO; +ATOR10TA66 PO; +BACL10TA PO; +CEFP100S6 PO; +FAMO-356 PO; +FURO-124 PO; +GLUC1SYR IM; +GUAI5SYR PO; +INSU100I88 SQ; +LORA10TA7 PO; +METF-397 PO; +POTA-160 PO; +PREG100C56 PO; +PREG150C47 PO; +ROPI2TAB52 PO; +VENL37.52 PO; +VENL75CA93 PO
--- NOTE | 2023-02-04 04:15 | ED Fall/Injury ---
General Chief Complaint: Trauma-Non Activation Stated Complaint: FALL OUT OF WHEELCHAIR Source: patient Exam Limitations: no limitations History of Present Illness Date Seen by Provider: Feb 04, 2023 Time Seen by Provider: 04:12 Initial Comments Patient is a 67-year-old female who presents to the emergency room by ambulance from a local long-term chief complaint of nasal injury, "I broke my nose". She was sitting in her wheelchair when she slipped out of it falling face forward on the floor. Was able to get up under her own power. [facility] insisted that she come be evaluated, patient is quite irritated she is here and wants to leave. She was outside smoking when EMS arrived. Denies any headache, nausea/vomiting. Denies any increased shortness of breath above her usual. Has had some congestion the last couple of days. Denies new back pain, extremity injury/hip pain, numbness/weakness. Would like a Sprite. Offered water. Occurred: just prior to arrival Severity: moderate Injuries/Pain Location: face Context: unknown Loss of Consciousness: unsure Associated Symptoms (Fall): Other (Nasal pain) Allergies and Home Medications Allergies Coded Allergies: lisinopril (Unverified Adverse Reaction, Intermediate, Cough, 11/10/20) Listed on medical record from PCP's office. morphine (Unverified Adverse Reaction, Mild, CONFUSION, 12/20/20) Patient Home Medication List Home Medication List Reviewed: Yes Acetaminophen (Tylenol) 325 Mg Tablet, 650 MG PO Q4H PRN for PAIN-MILD (1-4), (Reported) Entered as Reported by: RENÉ RAMÍREZ on 12/31/22 145 Amitriptyline HCl (Amitriptyline HCl) 50 Mg Tablet, 50 MG PO HS, (Reported) Entered as Reported by: ADITI ROWLAND on 12/30/222136 Amlodipine Besylate (Amlodipine Besylate) 5 Mg Tablet, 5 MG PO BID, (Reported) Entered as Reported by: RENÉ RAMÍREZ on 12/31/22 145 Aspirin (Aspirin EC) 81 Mg Tablet.dr, 81 MG PO HS, (Reported) Entered as Reported by: JULIAN MARTINEZ on 10/24/18 1352 Atorvastatin Calcium (Atorvastatin Calcium) 10 Mg Tablet, 5 MG PO HS, (Reported) Entered as Reported by: ADITI ROWLAND on 12/30/222138 Baclofen (Baclofen) 10 Mg Tablet, 10 MG PO Q8H PRN for MUSCLE SPASMS, (Reported) Entered as Reported by: RENÉ RAMÍREZ on 12/31/221451 Cyclobenzaprine HCl (Cyclobenzaprine HCl) 10 Mg Tablet, 10 MG PO HS PRN for MUSCLE SPASMS, (Reported) Entered as Reported by: DEEJAY BRUMFIELD on 11/09/20 144 Famotidine (Acid Intake Coordinator (FAMOTIDINE)) 20 Mg Tablet, 20 MG PO BID PRN for GERD, (Reported) Entered as Reported by: RENÉ RAMÍREZ on 12/31/221451 Furosemide (Lasix) 40 Mg Tablet, 40 MG PO DAILY, (Reported) Entered as Reported by: ADITI ROWLAND on 12/30/222142 Glucagon (Gvoke Syringe) 1 Mg/0.2 Ml Syringe, 1 MG IM UD PRN for HYPOGLYCEMIA, (Reported) Entered as Reported by: RENÉ RAMÍREZ on 12/31/221451 Guaifenesin/Dextromethorphan (Guaifenesin Dm Syrup) 100 Mg-10 Mg/5 Ml Syrup, 10 ML PO Q4H PRN for COUGH, (Reported) Entered as Reported by: RENÉ RAMÍREZ on 12/31/221451 Hydrocodone/Acetaminophen (Hydrocodone-Acetamin 5-325 mg) 5 Mg-325 Mg Tablet, 1 TAB PO Q8H PRN for PAIN-MODERATE (5-7), (Reported) Entered as Reported by: ADITI ROWLAND on 12/30/222141 Insulin Aspart (Novolog Flexpen) 100 Unit/Ml (3 Ml) Solution, UNITS SQ SLIDING/ SCALE, (Reported) Entered as Reported by: RENÉ RAMÍREZ on 12/31/221451 Insulin Detemir (Levemir Flexpen) 100 Unit/Ml (3 Ml) Insuln.pen, 30 UNITS SQ DAILY, (Reported) Entered as Reported by: RENÉ RAMÍREZ on 12/31/221451 Insulin Determir (Levemir) 100 Unit/Ml Soln, 20 UNITS SQ 2000, (Reported) Entered as Reported by: AFSANEH QUINONES on 12/19/20 1016 Loratadine (Loratadine) 10 Mg Tablet, 10 MG PO DAILY PRN for COUGH, (Reported) Entered as Reported by: RENÉ RAMÍREZ on 12/31/22 145 Metformin HCl (Metformin HCl) 500 Mg Tablet, 1,000 MG PO BID, (Reported) Entered as Reported by: RENÉ RAMÍREZ on 12/31/221451 Nitrofurantoin Monohyd/M-Cryst (Macrobid 100 mg Capsule) 100 Mg Capsule, 1 TAB PO BID Prescribed by: Arleen Peters on 01/01/23 1125 Potassium Chloride (Klor-Con 10) 10 Meq Tablet.er, 10 MEQ PO DAILY, (Reported) Entered as Reported by: RENÉ RAMÍREZ on 12/31/22 145 Pregabalin (Pregabalin) 150 Mg Capsule, 150 MG PO TID, (Reported) Entered as Reported by: RENÉ RAMÍREZ on 12/31/22 145 Pregabalin (Pregabalin) 100 Mg Capsule, 100 MG PO TID, (Reported) Entered as Reported by: RENÉ RAMÍREZ on 12/31/221451 Ropinirole HCl (Ropinirole HCl) 2 Mg Tablet, 2 MG PO 1800, (Reported) Entered as Reported by: RENÉ RAMÍREZ on 12/31/221451 Venlafaxine HCl (Venlafaxine HCl ER) 75 Mg Cap.er.24h, 75 MG PO DAILY, (Reported) Entered as Reported by: RENÉ RAMÍREZ on 12/31/221451 Review of Systems Review of Systems Constitutional: see HPI Eyes: No Symptoms Reported Ears, Nose, Mouth, Throat: nose pain Respiratory: cough Cardiovascular: no symptoms reported Gastrointestinal: no symptoms reported Musculoskeletal: no symptoms reported Skin: other (superficial laceration nasal bridge) Psychiatric/Neurological: Denies Headache, Denies Numbness, Denies Paresthesia, Denies Weakness Past Gymnnfc-Hdsomx-Wxakib Hx Immunizations Up To Date First/Initial COVID19 Vaccinat: UNKNOWN DATE Second COVID19 Vaccination Hernando: UNKNOWN DATE Third COVID19 Vaccination Date: UNKNOWN DATE Past Medical History Surgery/Hospitalization HX: sx: gastric bypass, gallbladder, hyst, ovarian cyst removal, appendectomy, disc surgery pmh: dm, htn, chronic pain. Surgeries: Yes (GASTRIC BYPASS, BACK SX X 2) Abdominal, Appendectomy, Gallbladder, Hysterectomy, Orthopedic Respiratory: No COPD Cardiac: Yes High Cholesterol, Hypertension Neurological: Yes Neuropathy Reproductive Disorders: No [employer] History: Hysterectomy Genitourinary: Yes Bladder Infection Gastrointestinal: No Musculoskeletal: Yes (RESTLESS LEG SYNDROME) Back Injury, Chronic Back Pain Endocrine: Yes Diabetes, Insulin dep HEENT: Yes (GLASSES) Cancer: No Psychosocial: Yes Sleep Difficulties, Anxiety, Depression Integumentary: No Blood Disorders: Yes (ANEMIA) Family Medical History Cancer, Diabetes, Stroke Physical Exam Vital Signs Vital Signs - First Documented 02/04/23 03:50 Temp 36.0 Pulse 85 Resp 18 B/P (MAP) 141/83 (102) Pulse Ox 96 O2 Delivery Room Air Capillary Refill : Height, Weight, BMI Height: 5'5.00" Weight: 187lbs. 0.6oz. 84.126271gh; 28.87 BMI Method:Stated General Appearance: WD/WN, no apparent distress HEENT: PERRL/EOMI, TMs normal, other (clotted nasal blood left nare (no obvious septal hematoma). tenderness to palpation nasal bone - no crepitance, no instability; battles sign, no raccoon eyes) Neck: non-tender, full range of motion Cardiovascular: regular rate, rhythm Respiratory: no respiratory distress, no accessory muscle use, other (coarse wheezy breath sounds bilaterally) Gastrointestinal: normal bowel sounds, non tender, soft Extremities: normal range of motion, non-tender, normal inspection, other (no pelvic tenderness) Neurologic/Psychiatric: alert, normal mood/affect, oriented x 3 Skin: normal color, warm/dry, other (small 0.5cm avulsion/stellate laceration through the dermis; no active bleeding) Progress/Results/Core Measures Results/Orders Vital Signs/I&O 02/04/23 03:50 Temp 36.0 Pulse 85 Resp 18 B/P (MAP) 141/83 (102) Pulse Ox 96 O2 Delivery Room Air Progress Progress Note : Time: 04:32 Progress Note Patient seen and evaluated by me. Evaluation today includes history and physi garrett exam. Pertinent physical exam findings, elderly female, chronically ill- appearing ; awake alert and oriented with stable vital signs. She has small half centimeter stellate laceration over the nasal bridge. Mild swelling, mild tenderness to palpation. No crepitance or instability of the nasal bone. She has clotted nasal blood left nare. No obvious septal hematoma. No tenderness over the zygoma bilaterally. No hart sign or raccoon eyes. No midline cervical spine tenderness. No tenderness to her upper or lower extremities, no numbness. No pelvic tenderness. Abdomen is soft. No focal neurologic deficits. Differential diagnosis includes nasal bone fracture, septal hematoma, intracranial hemorrhage Patient had laceration cleansed with surgical scrub and saline. I used skin affix to cover the stellate wound on the nasal bridge. No active bleeding. Patient declined to blow her nose. I was unable to fully evaluate the left nasal passage but there was no obvious septal hematoma. She is alert, oriented without any concussive symptoms. No headache, nausea vomiting. She is not confused. She is not on blood thinners. Majority of the trauma seems to be midface/nose. Consideration for head CT, neck CT however history and physical exam do not support the need at this time. Patient advised Tylenol and/or ibuprofen as needed for discomfort. An ice pack for swelling to her nose. Advised that the skin glue would wear off over the next week or 2. Return precautions provided in written format. Departure Impression Primary Impression: Laceration of nose Qualified Codes: S01.21XA - Laceration without foreign body of nose, initial encounter Additional Impression: Epistaxis due to trauma Disposition: HOME, SELF-CARE Condition: Stable Departure-Patient Inst. Decision time for Depature: 04:36 Referrals: [facility] (PCP/Family) Primary Care Physician Patient Instructions: Wound Care ED Add. Discharge Instructions: Ice pack to nasal bridge for swelling. Tylenol extra strength 2 tablets every 6 hours as needed for pain. Try not to blow your nose for 24 hours. The skin glue on the wound on your nose will wear off over the next week. Do not put antibiotic ointment on the glue - it will take the glue off. You can wash the area with normal soap and water. Return to the Emergency Department for any new, concerning or emergent complaints. Copy Copies To 1: JOSE LUIS SOLO KATHRYN M MD Feb 04, 2023 04:14
[2023-02-04 04:43] VITALS: BP 134/85
== END 2023-02-04 04:43 | disposition home or self-care (01) ==
LOC: EDUNIT# 03:49 → ER 03:50
DX: S01.21XA Laceration without foreign body of nose, initial encounter (principal); R04.0 Epistaxis; W05.0XXA Fall from non-moving wheelchair, initial encounter
CPT/HCPCS: 12011; 82947